=== PATIENT | male | born 1940 | race Caucasian/White ===

== ENCOUNTER 2017-01-12 04:39 | Inpatient (IN) | payer OTHER ==
[2017-01-12] VITALS (13 sets, daily range): BP systolic 87–149; BP diastolic 47–105; PULSE 66–133; TEMP 36.6–36.8; O2SAT 91–100; Ht 180.3 cm; Wt 90.3 kg
[~2017-01-12] VITALS: Ht 180.3 cm; Wt 90.3 kg
[~2017-01-12 04:39] MED LIST: BENA40TA6 PO; CARV12.5 PO; DIGO0.122 PO; ENOX100I SC; FURO40TA3 PO; METF1000 PO; NITR0.4S UT; PANT40TA PO; ROSU20TA PO; WARF7.5T PO
[2017-01-12] MEDS ORDERED: ONDANSETRON INJ 2 MG/ML 2 ML VIAL ONE (04:47)
--- NOTE | 2017-01-12 04:52 | EMERGENCY ROOM VISIT NOTE ---
History Report prepared by Eddie: Eleanor Nelson Under the Supervision of: Dr. Vanessa Villeda D.O. First contact with patient: 04:41 Chief Complaint: CARDIAC ASSESSMENT Stated Complaint: CARDIAC ASSESSMENT History of Present Illness The patient is a 76 year old male who presents to the Emergency Room with complaints of persistent nausea that began this morning around 0300. Per EMS, the patient woke up this morning complaining of nausea and additionally vomiting. They note that the patient associated tingling in his arms, but denied any shortness of breath or chest pain. EMS reports that the patient's defibrillator/pacemaker fired six different times this morning, but the patient denies any previous history of his defibrillator firing. The patient denies feeling his pacemaker firing. EMS reports that the patient had a stent placed in 2005, and a previous ND in 2013. The patient states that he felt fine prior going to bed this evening. EMS notes that the patient was given 4 mg of Zofran prior to arrival without relief of his symptoms. The patient reports no history of smoking, but notes a history of using smokeless tobacco. Source of History: patient, EMS Onset: 0300 this morning Position: other (global) Quality: other (nausea) Timing: other (persistent) Associated Symptoms: + vomiting, No SOB, No chest pain Note: Associated symptoms: tingling in arms Review of Systems See HPI for pertinent positives & negatives. A total of 10 systems reviewed and were otherwise negative. Past Medical & Surgical Medical Problems: (1) Atrial fibrillation (2) Basal cell carcinoma (3) CAD (coronary artery disease) (4) Cardiac defibrillator in place (5) CVA (cerebral vascular accident) (6) DM type 2 (diabetes mellitus, type 2) (7) Ischemic cardiomyopathy (8) Squamous cell carcinoma (9) V tach Surgical Problems: (1) History of cataract surgery Family History No pertinent family history stated. Social History Smoking Status: Unknown if Ever Smoked Drug Use: none Marital Status: Occupation Status: retired Current/Historical Medications Scheduled Benazepril Hcl (Lotensin), 40 MG PO DAILY Carvedilol (Coreg), 12.5 MG PO BIDM Cyanocobalamin (Vitamin B-12), 1,000 MCG PO DAILY Digoxin (Digoxin), 0.125 MG PO DAILY Ferrous Gluconate (Ferrous Gluconate), 324 MG PO BIDM Furosemide (Lasix), 20 MG PO DAILY Metformin Hcl (Glucophage), 1,000 MG PO DAILY Pantoprazole (Protonix), 40 MG PO DAILY Rosuvastatin Calcium (Crestor), 20 MG PO DAILY Warfarin Sodium (Coumadin), 12.5 MG PO 2XWK Warfarin Sodium (Coumadin), 7.5 TAB PO 5XWK Scheduled PRN Nitroglycerin (Nitrostat), 0.4 MG UT UD PRN for Chest Pain Allergies Coded Allergies: BRIANA Inhibitors (Verified Allergy, Unknown, cough, 01/12/17) Cefuroxime (Verified Allergy, Unknown, GI SYMPTOMS, 01/12/17) Codeine (Verified Allergy, Unknown, GI SYMPTOMS, 01/12/17) Physical Exam Vital Signs Date Time Temp Pulse Resp B/P Pulse Ox O2 Delivery O2 Flow Rate FiO2 01/12/17 05:18 112 118/85 98 Nasal Cannula 4.0 01/12/17 05:03 126 24 122/92 99 Nasal Cannula 4.0 01/12/17 05:03 126 111/90 99 Nasal Cannula 4.0 01/12/17 05:03 126 122/92 01/12/17 05:02 122/92 01/12/17 05:00 110 100 01/12/17 04:50 97 Nasal Cannula 4.0 01/12/17 04:46 118 01/12/17 04:45 96 Nasal Cannula 4.0 01/12/17 04:44 36.7 128 24 153/94 98 Nasal Cannula 3.0 Physical Exam General: Pale appearing and vomiting on exam. HEENT: Head - normocephalic and atraumatic Pupils are equal, round, and reactive to light. Extraocular eye muscles are intact, and sclera are anicteric. Nose - moist nasal mucosa without discharge. Mouth - moist buccal mucosa. Oropharynx is nonerythematous and there is no tonsillar exudate or edema noted. Neck: Supple; no JVD, nuchal rigidity, cervical lymphadenopathy. Heart: Tachycardic rate and irregular rhythm. There is a normal S1 and S2 with no murmurs, clicks, or gallops appreciated. Lungs: Clear to auscultation bilaterally with no wheezes, rales, or rhonchi. Abdomen: Soft, completely nontender, nondistended, with good bowel sounds. There are no palpable pulsatile masses or hepatosplenomegaly. There is no guarding, rigidity, or rebound noted. Extremities: No evidence of cyanosis, clubbing, or edema. There are easily palpable peripheral pulses. Skin: Pale, warm and diaphoretic with good turgor and no rashes. Medical Decision & Procedures ER Provider Diagnostic Interpretation: 1 view chest x-ray: stable cardiomegaly, mild congestive heart failure, pacer/ defibrillator in good place. Laboratory Results Test 01/12/17 04:50 01/12/17 05:00 01/12/17 05:04 Est Creatinine Clear Calc Drug Dose 58.5 ml/min Total Bilirubin 0.9 mg/dl (0.2-1) Direct Bilirubin 0.4 mg/dl (0-0.2) Aspartate Amino Transf (AST/SGOT) 17 U/L (15-37) Alanine Aminotransferase (ALT/SGPT) 15 U/L (12-78) Alkaline Phosphatase 92 U/L (45-117) Total Protein 7.3 gm/dl (6.4-8.2) Albumin 3.6 gm/dl (3.4-5.0) Thyroid Stimulating Hormone (TSH) 3.700 uIu/ml (0.300-4.500) Digoxin Level 0.1 ng/ml (0.8-2.0) Bedside Troponin I 0.100 ng/ml (0-0.045) Bedside Hemoglobin 10.5 g/dl (14.0-18.0) Bedside Hematocrit 31 % (42-52) Bedside Sodium 141 mEq/L (135-144) Bedside Potassium 3.5 mEq/L (3.3-5.0) Bedside Chloride 104 mEq/L (101-112) Bedside Total CO2 20 mEq/l (24-31) Bedside Blood Urea Nitrogen 22 mg/dl (7-18) Bedside Creatinine 1.0 mg/dl (0.6-1.3) Bedside Glucose (other) 193 mg/dl (70-99) Bedside Ionized Calcium (Gina) 1.16 mmol/l (1.12-1.32) Medications Administered Medications (Trade) Dose Ordered Sig/Magaly Route Start Time Stop Time Status Last Admin Dose Admin Ondansetron HCl (Zofran Inj) 4 mg STK-MED ONCE .ROUTE 01/12/17 04:47 01/12/17 04:49 DC 01/12/17 04:52 4 MG Metoprolol Tartrate (Lopressor Iv) 5 mg STK-MED ONCE .ROUTE 01/12/17 04:57 01/12/17 04:59 DC 01/12/17 05:03 5 MG Heparin Sodium (Porcine) (Heparin Iv Bolus) 10,000 unit STK-MED ONCE .ROUTE 01/12/17 05:12 01/12/17 05:14 DC 01/12/17 05:12 10,000 UNIT Midazolam HCl (Versed Inj) 2 mg STK-MED ONCE .ROUTE 01/12/17 05:12 01/12/17 05:15 DC 01/12/17 05:12 2 MG Fentanyl Citrate (Fentanyl Inj) 100 mcg STK-MED ONCE .ROUTE 01/12/17 05:12 01/12/17 05:15 DC 01/12/17 05:12 50 MCG Promethazine HCl (Phenergan Inj) 25 mg STK-MED ONCE .ROUTE 01/12/17 05:28 01/12/17 05:30 DC 01/12/17 05:28 25 MG Procedure The patient was treated with 4 mg Zofran Inj, 5 mg Lopressor IV. ECG Indication: nausea Rate (beats per minute): 116 Rhythm: atrial fibrillation (RVR) Findings: ST elevation (Inferior, consistent withm an acute ND, reciprocal changes in leads 1 and AVL) Comparison ECG Date: 08/27/15 Change: EKG Change: When compared to EKG done on 08/27/15 ST elevations are new. ED Course 0441: Past medical records reviewed. The patient was evaluated in room B1. A complete history and physical exam was performed. Laboratory studies were drawn as above. A twelve-lead EKG was obtained as described above. 0445: A heart alert was called at this time. 0447: Ordered Zofran Inj 4 IV 0457: The patient's arrived in the emergency department. I discussed the patient's case with her. Ordered Lopressor IV. 0521: Dr. Arce, Cardiology has evaluated the patient and is going to take the patient to the field laborer for further treatment. 0524: I discussed the patients case with Dr. Alves [facility]. He is going to evaluate the patient for further treatment. 0525: The patient was taken to the field laborer for further treatment. Medical Decision The patient is a 76 year old male who presents to the ED with nausea. Differential diagnosis includes acute ND, cardiac dysrhythmia, electrolyte imbalance. Labs: no leukocytosis, hemoglobin 9.8 which is baseline for him, normal renal function, magnesium 2.0, troponin 0.100, LFTs are normal, glucose 193, INR 1.3, digoxin level pending. Patient presents to the emergency department after his implanted defibrillator discharged multiple times at home. He explains that he awoke from sleep with significant nausea and just a general feeling of illness. EMS was called. Upon their arrival, the patient describes significant nausea and was given Zofran. His implanted defibrillator discharged on 5 or 6 different occasions. They administered IV amiodarone. 12-lead EKG revealed evidence of an inferior wall ND. A heart alert was called. He received additional Zofran and then Lopressor here in the emergency department. The patient remained stable here in the emergency department. He went to the Program Control Analyst with Dr. Arce Consults Time Called: [phone] Consulting Physician: Reagan Mohan Returned Call: [phone] I discussed the patients case with Reagan Mohan. He is going to evaluate the patient for further treatment. Impression Primary Impression: Acute ND Additional Impressions: Ventricular fibrillation Defibrillator discharge Critical Care I have personally spent greater than 45 minutes of critical care time in the direct management of this patient. This includes bedside care, interpretation of diagnostic studies, and testing, discussion with consultants, patient, and family members, and other required patient management activities. This 45 minutes is in excess of all separately billable procedures. Scribe Attestation The scribe's documentation has been prepared under my direction and personally reviewed by me in its entirety. I confirm that the note above accurately reflects all work, treatment, procedures, and medical decision making performed by me. Departure Information Dispostion Being Evaluated By Hospitalist Referrals No Doctor, Assigned (PCP) Problem Qualifiers
[2017-01-12] MEDS ORDERED: FURO-85 PO (04:56)
[2017-01-12] MEDS ORDERED: METF1000 PO (04:57)
[2017-01-12] MEDS ORDERED: METOPROLOL TARTRATE 1 MG/ML VIAL ONE (04:57)
[2017-01-12] MEDS ORDERED: FERR325T18 PO (04:57)
[2017-01-12] MEDS ORDERED: CYAN10005 PO (05:01)
[2017-01-12 05:02] LABS: BASO % 0.9 %; BASO ABS # 0.07 K/uL (0-0.2); COMPLETE YES; EOS % 4.6 %; IG% 0.1 %; LYMPH % 20.4 %; LYMPH ABS # 1.56 K/uL (1.2-3.4); MEAN CELL VOLUME 87.6 fL (80-100); MEAN CORPUSCULAR HEMOGLOBIN 27.7 pg (25-34); MEAN CORPUSCULAR HGB CONC 31.6 g/dl (32-36); MEAN PLATELET VOLUME 9.4 fL (7.4-10.4); MONO % 13.4 %; NEUT % 60.6 %; PLATELET COUNT 190 K/uL (130-400); RED BLOOD COUNT 3.54 M/uL (4.7-6.1); WHITE BLOOD COUNT 7.64 K/uL (4.8-10.8)
[2017-01-12] MEDS ORDERED: WARF5TAB90 PO ×2 (05:03)
[2017-01-12 05:10] LABS: INR 1.3 (0.9-1.1); PARTIAL THROMBOPLASTIN RATIO 1.1
[2017-01-12] MEDS ORDERED: HEPARIN SOD (PORCINE) 1000 UNIT/ML 10 ML VIAL ONE (05:12)
[2017-01-12] MEDS ORDERED: MIDAZOLAM HCL 1 MG/ML 2ML VIAL ONE (05:12)
[2017-01-12] MEDS ORDERED: NiCARDipine HCL INJ 2.5 MG/ML 10 ML AMP ONE (05:12)
[2017-01-12] MEDS: FENTANYL CITRATE INJ 50 MCG/1 ML 2 ML VIAL ONE (05:12)
[2017-01-12 05:15] LABS: ISTAT HEMOGLOBIN 10.5 g/dl (14.0-18.0); ISTAT IONIZED CALCIUM 1.16 mmol/l (1.12-1.32)
[2017-01-12] MEDS ORDERED: NITROGLYCERIN/D5W 100MCG/ML 20ML SYR ONE (05:15)
[2017-01-12] MEDS ORDERED: PROMETHAZINE HCL INJ 25 MG/ML 1 ML VIAL ONE (05:28)
[2017-01-12] MEDS ORDERED: EPTIFIBATIDE 0.75 MG/ML 75MG VIAL IV ONE (05:50)
[2017-01-12] MEDS ORDERED: EPTIFIBATIDE 2 MG/ML 10 ML VIAL IV ONE (05:50)
[2017-01-12 05:52] LABS: CKMB/CK RATIO 4.5 (0-3.0)
[2017-01-12 05:55] LABS: BUN/CREATININE RATIO 17.5 (10-20); CREATININE 1.2 mg/dl (0.60-1.40); POTASSIUM 3.4 mmol/L (3.5-5.1)
[2017-01-12 06:06] LABS: THYROID STIMULATING HORMONE 3.7 uIu/ml (0.300-4.500)
[2017-01-12] MEDS ORDERED: FLUMAZENIL 0.1 MG/1 ML 10 ML VIAL IV ONE (06:17)
[2017-01-12] MEDS ORDERED: NALOXONE HCL 0.4 MG/1 ML VIAL/CARP ONE (06:18)
--- NOTE | 2017-01-12 06:49 | DIAGNOSTIC IMAGING REPORT ---
CHEST ONE VIEW PORTABLE CLINICAL HISTORY: Atypical chest pain COMPARISON STUDY: 08/28/2015 FINDINGS: The heart is enlarged. There is radiographic evidence of pulmonary vascular congestion. A small right pleural effusion. There is no lobar consolidation. There is a left subclavian single chamber central venous pacemaker/defibrillator.[ IMPRESSION: Cardiomegaly and radiographic evidence of congestive failure/fluid overload. Small right pleural effusion. No evidence of lobar consolidation Electronically signed by: Keaton Cano M.D. 01/12/2017 6:48 AM Dictated Date/Time: 01/12/2017 6:47 AM
[2017-01-12] MEDS ORDERED: ONDANSETRON INJ 2 MG/ML 2 ML VIAL IV PRN (07:00)
[2017-01-12] MEDS ORDERED: EPTIFIBATIDE BOLUS / DRIP IV ONE (07:00)
[2017-01-12] MEDS ORDERED: ATROPINE SULFATE 0.1 MG/ML 5ML SYR IV PRN (07:00)
--- NOTE | 2017-01-12 07:08 | Procedure Note ---
Pre-Mod Sedation Assessment General Date of Moderate Sedation: Jan 12, 2017. Vital Signs: Vital Signs Past 12 Hours Date Time Temp Pulse Resp B/P Pulse Ox O2 Delivery O2 Flow Rate FiO2 01/12/17 06:42 118 20 115/77 98 Non-Rebreather 100 01/12/17 06:30 134 24 136/89 97 Non-Rebreather 100 01/12/17 05:18 112 118/85 98 Nasal Cannula 4.0 01/12/17 05:03 126 24 122/92 99 Nasal Cannula 4.0 01/12/17 05:03 126 111/90 99 Nasal Cannula 4.0 01/12/17 05:03 126 122/92 01/12/17 05:02 122/92 01/12/17 05:00 110 100 01/12/17 04:50 97 Nasal Cannula 4.0 01/12/17 04:46 118 01/12/17 04:45 96 Nasal Cannula 4.0 01/12/17 04:44 36.7 128 24 153/94 98 Nasal Cannula 3.0 Review Cardiovascular: no murmur (No murmur heard on exam in ED by me), normal peripheral pulses, + irregularly irregular, + pertinent finding (leg edema) Abdomen: normal bowel sounds, non tender, soft Lungs: lungs clear Pre-Sedation Airway Assessment Oral Cavity: Dentures Able to Visualize Vocal Cords: No Short Thick Neck: No Hx of Sleep Apnea: No Smoking Status: Never Smoker Mallampati Classification: Class III ASA Classification: Class III Procedure Planning Contraindications-for Mod Sed: None Yes Notes The planned sedation has been discussed with the patient and consent obtained. I have identified the patient, determined the appropriateness of sedation and have assessed the patient immediately prior to the procedure. All medicine(s) and interventions are by my order.
--- NOTE | 2017-01-12 07:09 | Procedure Note ---
Post-Mod Sedation Assessment General Date of Moderate Sedation Jan 12, 2017. Vital Signs: Vital Signs Past 12 Hours Date Time Temp Pulse Resp B/P Pulse Ox O2 Delivery O2 Flow Rate FiO2 01/12/17 06:42 118 20 115/77 98 Non-Rebreather 100 01/12/17 06:30 134 24 136/89 97 Non-Rebreather 100 01/12/17 05:18 112 118/85 98 Nasal Cannula 4.0 01/12/17 05:03 126 24 122/92 99 Nasal Cannula 4.0 01/12/17 05:03 126 111/90 99 Nasal Cannula 4.0 01/12/17 05:03 126 122/92 01/12/17 05:02 122/92 01/12/17 05:00 110 100 01/12/17 04:50 97 Nasal Cannula 4.0 01/12/17 04:46 118 01/12/17 04:45 96 Nasal Cannula 4.0 01/12/17 04:44 36.7 128 24 153/94 98 Nasal Cannula 3.0 Review - Discharge Criteria Vital Signs Stable: Yes Alert/Oriented/Conversant: Yes Returned to Baseline Mental St: Yes Nausea Absent/Minimal: Yes Pain/Discomfort/Absent/Minimal: Yes Normal/Baseline Respirations: Yes Active Bleeding?: No Pt Received D/C Instructions: N/A Prescriptions Given: None Specific Proced. D/C Criteria Distal Pulses Present (Cardiac: Yes Groin site assessed-Card Cath: N/A Voided Prior To Discharge: N/A Discharged Patients Adult Escort/Transportation: N/A
--- NOTE | 2017-01-12 07:48 | [facility] Post Operative Brief Note ---
Preliminary Procedure Note Procedure Date Jan 12, 2017. Pre-Procedure Diagnosis STEMI AUC Score 9 Post-Procedure Diagnosis Severe CAD (Sub total proximal RCA and total mid RCA) Procedure(s) Performed PTCA Osteopathy Doctor Dr. Arce Cash Crop Farmer(s) VIVIANE Townsend Estimated Blood Loss 20 ml Medication(s) Fentanyl, Heparin, Nicardipine, Versed IV naloxone and Romazicon to reverse fentanyl and versed because of respiratory suppression. Preliminary Findings Cath site: 6 Fr Slender Morley sheath right radial artery. Hemostasis: Terumo TR band Complications: No cardiac or vascular complications. Findings: left dominant circulation. Subtotal proximal RCA and total mid RCA. PTCA performed to the proximal and mid RCA. GILMAR 3 flow established into a high rising acute marginal ( long small - medium caliber vessel) and to mid-distal RCA ( gives rise to two small caliber RV branches). No underlying stenosis in proximal or mid RCA. Left coronary artery with no significant disease. Patent LAD stent. Patient developed respiratory depression after versed and fentanyl . Subsequent oxygen desaturation requiring patient to be receive oxygen by bag and mask. After Romazicon and naloxone he returned to baseline mental status and normal respirations. Conclusion: Suspect thromboembolic event from left atria or left ventricle to RCA. Patient has chronic atrial fibrillation and a severe cardiomyopathy. INR on admission was subtherapeutic at 1.3. Will continue IV Integrilin for now. After hemostasis documented at right radial access site would start IV heparin and then discontinue Integrilin. Will also give aspirin and clopidogrel. [facility] Choice of assisted anticoagulation by [facility] service. Recommendations Medical therapy and/or Counseling, PCI without planned CABG Specimens None Fluids (cc crystalloids) 150 ml Drains none Anesthesia IV versed,fentanyl Procedural Complication(s) None Disposition ICU
[2017-01-12] MEDS ORDERED: CLOPIDOGREL BISULFATE 300 MG TAB PO ONE (08:30)
[2017-01-12] MEDS ORDERED: EPTIFIBATIDE INJ 75 MG PREMIXED IV SCH (08:30)
[2017-01-12 08:51] LABS: BASO % 0.3 %; BASO ABS # 0.03 K/uL (0-0.2); EOS % 0.3 %; HEMATOCRIT 30.6 % (42-52); IG% 0.4 %; LYMPH % 11.4 %; LYMPH ABS # 1.28 K/uL (1.2-3.4); MEAN CELL VOLUME 87.2 fL (80-100); MEAN CORPUSCULAR HEMOGLOBIN 27.9 pg (25-34); MONO % 9.6 %; PLATELET COUNT 171 K/uL (130-400); RED BLOOD COUNT 3.51 M/uL (4.7-6.1); WHITE BLOOD COUNT 11.21 K/uL (4.8-10.8)
[2017-01-12 08:52] LABS: COMPLETE YES
[2017-01-12] MEDS: ASPIRIN 81 MG ECTAB PO SCH (09:05)
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
[2017-01-12] MEDS ORDERED: PROMETHAZINE HCL INJ 12.5 MG in SODIUM CHLORIDE 0.9% 50ML 50 ML IV PRN (10:00)
[2017-01-12] MEDS ORDERED: LNX125 PO (10:16)
[2017-01-12] MEDS ORDERED: GLUCOSE 40% GEL 15 GM TUBE PO PRN (10:30)
[2017-01-12] MEDS ORDERED: GLUCAGON FOR INJ 1 MG VIAL SQ PRN (10:30)
[2017-01-12] MEDS ORDERED: GLUCOSE 10 TABS/TUBE PO PRN (10:30)
[2017-01-12] MEDS ORDERED: ENALAPRIL MALEATE 10 MG TAB PO SCH (10:30)
[2017-01-12] MEDS ORDERED: DEXTROSE 50% 50 ML SYR IV PRN (10:30)
[2017-01-12] MEDS: INSULIN ASPART 100 UNITS/ML 3 ML PEN SC SCH ×3 (11:00→21:00)
[2017-01-12] MEDS ORDERED: DIGOXIN 0.125 MG TAB PO ONE (11:15)
[2017-01-12] MEDS ORDERED: CARVEDILOL 12.5 MG TAB PO SCH (11:30)
--- NOTE | 2017-01-12 12:50 | History and Physical ---
History & Physical Date & Time of Service: Jan 12, 2017 at 10:59 Chief Complaint: Nausea, Sweating, Defibrillator Fired Primary Care Physician: Shade Thomas III, M.D. History of Present Illness 76 year old male who presented to the ER via EMS for nausea, diaphoresis, and his defibrillator firing. Patient's reports he went to bed feeling in his usual state of health last night. Around 0300, he woke up and was nauseous and had episodes of vomiting. He was also very diaphoretic. When EMS arrived, his defibrillator fired about 6 times per the . Upon arrival to the ER, patient was a heart alert and found to have ST elevations in the inferior leads. Patient was taken to the laboratory associate and found to have subtotal occlusion of the proximal RCA and total occlusion of the mid RCA. Patient underwent PTCA of the mid-proximal RCA. At the time of my exam, patient is lethargic. He arouses to loud verbal and tactile stimuli but falls back to sleep quickly. He is able to tell me his name and that he is in the hospital. Vitals are stable. Past Medical/Surgical History Medical Problems: (1) Atrial fibrillation Status: Chronic (2) Basal cell carcinoma Status: Chronic (3) CAD (coronary artery disease) Permanent Comment: 2005 - PCI to LAD cath 2011 - no significant obstructive disease Status: Chronic (4) Cardiac defibrillator in place Status: Chronic (5) CVA (cerebral vascular accident) Status: Chronic (6) DM type 2 (diabetes mellitus, type 2) Status: Chronic (7) Ischemic cardiomyopathy Permanent Comment: echo 08/2015 - EF 25-30%, moderate tricuspid regurgitation Status: Chronic (8) Squamous cell carcinoma Status: Chronic (9) V tach Permanent Comment: s/p AICD placement Status: Chronic Surgical Problems: (1) History of cataract surgery Status: Chronic Family History FH: CAD (coronary artery disease) FATHER ( at age 69) MOTHER ( at age 35) SISTER ( at age 65) Social History Smoking Status: Never Smoker Alcohol Use: none Marital Status: Housing status: lives with family Immunizations History of Influenza Vaccine: Yes Influenza Vaccine Date: Aug 03, 2016 History of Tetanus Vaccine?: Yes Tetanus Immunization Date: Jan 28, 2009 History of Pneumococcal: Yes Pneumococcal Date: Sep 10, 2015 Multi-Drug Resistant Organisms History of MDRO: No Allergies Coded Allergies: BRIANA Inhibitors (Verified Allergy, Unknown, cough, 01/12/17) Cefuroxime (Verified Allergy, Unknown, GI SYMPTOMS, 01/12/17) Codeine (Verified Allergy, Unknown, GI SYMPTOMS, 01/12/17) Home Medications Scheduled Benazepril Hcl (Lotensin), 40 MG PO DAILY Carvedilol (Coreg), 12.5 MG PO BIDM Cyanocobalamin (Vitamin B-12), 1,000 MCG PO DAILY Digoxin (Digoxin), 0.125 MG PO DAILY Ferrous Gluconate (Ferrous Gluconate), 324 MG PO BIDM Furosemide (Lasix), 20 MG PO DAILY Metformin Hcl (Glucophage), 1,000 MG PO DAILY Pantoprazole (Protonix), 40 MG PO DAILY Rosuvastatin Calcium (Crestor), 20 MG PO DAILY Warfarin Sodium (Coumadin), 12.5 MG PO 2XWK Warfarin Sodium (Coumadin), 7.5 TAB PO 5XWK Scheduled PRN Nitroglycerin (Nitrostat), 0.4 MG UT UD PRN for Chest Pain Review of Systems unable to be complete with patient due to lethargy Physical Exam Vital Signs Date Time Temp Pulse Resp B/P Pulse Ox O2 Delivery O2 Flow Rate FiO2 01/12/17 06:45 117 26 113/105 01/12/17 06:42 118 20 115/77 98 Non-Rebreather 100 01/12/17 06:30 134 24 136/89 97 Non-Rebreather 100 01/12/17 05:18 112 118/85 98 Nasal Cannula 4.0 01/12/17 05:03 126 24 122/92 99 Nasal Cannula 4.0 01/12/17 05:03 126 111/90 99 Nasal Cannula 4.0 01/12/17 05:03 126 122/92 01/12/17 05:02 122/92 01/12/17 05:00 110 100 01/12/17 04:50 97 Nasal Cannula 4.0 01/12/17 04:46 118 01/12/17 04:45 96 Nasal Cannula 4.0 01/12/17 04:44 36.7 128 24 153/94 98 Nasal Cannula 3.0 General Appearance: no apparent distress Head: normocephalic Eyes: normal inspection ENT: hearing grossly normal Neck: supple, no JVD Respiratory/Chest: no respiratory distress, + decreased breath sounds Cardiovascular: + irregularly irregular, + pertinent finding (+1-2 pitting edema BLLE) Abdomen/GI: normal bowel sounds, non tender, soft Extremities/Musculoskelatal: normal inspection, no calf tenderness, + pertinent finding (small amount of bloody drainage noted around right radial compression dressing) Neurologic/Psych: + pertinent finding (lethargic, awakens to loud verbal and tactile stimuli, falls back to sleep quickly; able to state name, place, and year) Skin: normal color, warm/dry Diagnostics Laboratory Results Results Past 24 Hours Test 01/12/17 04:50 01/12/17 05:00 01/12/17 05:04 01/12/17 05:54 Range/Units White Blood Count 7.64 4.8-10.8 K/uL Red Blood Count 3.54 4.7-6.1 M/uL Hemoglobin 9.8 14.0-18.0 g/dL Hematocrit 31.0 42-52 % Mean Corpuscular Volume 87.6 80-100 fL Mean Corpuscular Hemoglobin 27.7 25-34 pg Mean Corpuscular Hemoglobin Concent 31.6 32-36 g/dl Platelet Count 190 130-400 K/uL Mean Platelet Volume 9.4 7.4-10.4 fL Neutrophils (%) (Auto) 60.6 % Lymphocytes (%) (Auto) 20.4 % Monocytes (%) (Auto) 13.4 % Eosinophils (%) (Auto) 4.6 % Basophils (%) (Auto) 0.9 % Neutrophils # (Auto) 4.63 1.4-6.5 K/uL Lymphocytes # (Auto) 1.56 1.2-3.4 K/uL Monocytes # (Auto) 1.02 0.11-0.59 K/uL Eosinophils # (Auto) 0.35 0-0.5 K/uL Basophils # (Auto) 0.07 0-0.2 K/uL RDW Standard Deviation 53.3 36.4-46.3 fL RDW Coefficient of Variation 16.6 11.5-14.5 % Immature Granulocyte % (Auto) 0.1 % Immature Granulocyte # (Auto) 0.01 0.00-0.02 K/uL Prothrombin Time 14.0 9.0-12.0 SECONDS Prothromb Time International Ratio 1.3 0.9-1.1 Activated Partial Thromboplast Time 28.7 21.0-31.0 SECONDS Partial Thromboplastin Ratio 1.1 Sodium Level 141 136-145 mmol/L Potassium Level 3.4 3.5-5.1 mmol/L Chloride Level 107 98-107 mmol/L Carbon Dioxide Level 22 21-32 mmol/L Anion Gap 12.0 21.0 16-25 mmol/L Blood Urea Nitrogen 21 7-18 mg/dl Creatinine 1.20 0.60-1.40 mg/dl Est Creatinine Clear Calc Drug Dose 58.5 ml/min Estimated GFR () 67.2 Estimated GFR (Non- 58.0 BUN/Creatinine Ratio 17.5 10-20 Random Glucose 186 70-99 mg/dl Calcium Level 9.0 8.5-10.1 mg/dl Magnesium Level 2.0 1.8-2.4 mg/dl Total Bilirubin 0.9 0.2-1 mg/dl Direct Bilirubin 0.4 0-0.2 mg/dl Aspartate Amino Transf (AST/SGOT) 17 15-37 U/L Alanine Aminotransferase (ALT/SGPT) 15 12-78 U/L Alkaline Phosphatase 92 45-117 U/L Total Creatine Kinase 49 39-308 U/L Creatine Kinase MB 2.2 0.5-3.6 ng/ml Creatine Kinase MB Ratio 4.5 0-3.0 Troponin I 0.157 0-0.045 ng/ml Total Protein 7.3 6.4-8.2 gm/dl Albumin 3.6 3.4-5.0 gm/dl Thyroid Stimulating Hormone (TSH) 3.700 0.300-4.500 uIu/ml Digoxin Level 0.1 0.8-2.0 ng/ml Bedside Troponin I 0.100 0-0.045 ng/ml Bedside Hemoglobin 10.5 14.0-18.0 g/dl Bedside Hematocrit 31 42-52 % Bedside Sodium 141 135-144 mEq/L Bedside Potassium 3.5 3.3-5.0 mEq/L Bedside Chloride 104 101-112 mEq/L Bedside Total CO2 20 24-31 mEq/l Bedside Blood Urea Nitrogen 22 7-18 mg/dl Bedside Creatinine 1.0 0.6-1.3 mg/dl Bedside Glucose (other) 193 70-99 mg/dl Bedside Ionized Calcium (Gina) 1.16 1.12-1.32 mmol/l Kaolin Activated Coagulation Time 312 94-140 SECONDS Test 01/12/17 08:39 Range/Units White Blood Count 11.21 4.8-10.8 K/uL Red Blood Count 3.51 4.7-6.1 M/uL Hemoglobin 9.8 14.0-18.0 g/dL Hematocrit 30.6 42-52 % Mean Corpuscular Volume 87.2 80-100 fL Mean Corpuscular Hemoglobin 27.9 25-34 pg Mean Corpuscular Hemoglobin Concent 32.0 32-36 g/dl Platelet Count 171 130-400 K/uL Mean Platelet Volume 10.0 7.4-10.4 fL Neutrophils (%) (Auto) 78.0 % Lymphocytes (%) (Auto) 11.4 % Monocytes (%) (Auto) 9.6 % Eosinophils (%) (Auto) 0.3 % Basophils (%) (Auto) 0.3 % Neutrophils # (Auto) 8.75 1.4-6.5 K/uL Lymphocytes # (Auto) 1.28 1.2-3.4 K/uL Monocytes # (Auto) 1.08 0.11-0.59 K/uL Eosinophils # (Auto) 0.03 0-0.5 K/uL Basophils # (Auto) 0.03 0-0.2 K/uL RDW Standard Deviation 53.0 36.4-46.3 fL RDW Coefficient of Variation 16.7 11.5-14.5 % Immature Granulocyte % (Auto) 0.4 % Immature Granulocyte # (Auto) 0.04 0.00-0.02 K/uL Microbiology Results 01/12/17 MRSA DNA Surveillance Screen, Received Pending Diagnostic Radiology CXR IMPRESSION: Cardiomegaly and radiographic evidence of congestive failure/ fluid overload. Small right pleural effusion. No evidence of lobar consolidation Impression Assessment and Plan STEMI - admitted to ICU - presented with nausea, vomiting, diaphoresis, and firing of AICD; EKG on arrival showed ST elevation inferiorly - patient taken to cath labs had PTCA of proximal-mid RCA - per Dr. Arce - occlusion was more thromboembolic in nature - ? from left atria or left ventricle; patient has history of chronic a. fib and cardiomyopathy (EF 25-30%) and noted to have subtherapeutic INR on admission - currently on Integrilin - per Dr. Arce, continue Integrilin until hemostasis of right radial cath site is achieved then transition to IV Heparin - middle or intermediate [employer] principal anticoagulation as per cardiology - on ASA, Plavix, beta bryan, and statin - case discussed with Dr. Jimenez ISCHEMIC CARDIOMYOPATHY - EF 25-30% on echo 08/2015 - continue furosemide, beta bryan - hold briana-i given relative low-normal blood pressures CHRONIC ATRIAL FIBRILLATION - rate controlled on dig and beta bryan - continue both - on Coumadin, INR 1.3 on admission - Integrilin -> Heparin as above HX V-TACH S/P AICD - per family, patient's AICD fired at home - have device interrogated DM - hgb a1c 5.6 10/2016 - hold metformin, utilize SSI while hospitalized HX CVA - on ASA/Plavix DVT PROPHYLAXIS - currently on Integrilin -> Heparin DISPO - In my clinical judgment this beneficiary meets acute admission criteria, established by [facility], that includes being hospitalized through two midnights. I have seen, examined and discussed this patient with Bonny Garcia and I agree with the above note. Patient with STEMI s/p PCI by Cardiology. Vitals notable for tachycardia. PE: General- awake; alert; NAD Eyes- EOMI; no scleral icterus Neck- no stridor; trachea midline Lungs- CTA bilaterally; no wheezes/crackles Heart- tachycardic but regular Abdomen- soft; NTND; nBS Back- no gross abnormalities Extremities- 1+edema of bilateral LE; no deformity Neuro- no gross focal deficits Skin- no appreciable rash STEMI: Cardiology consulted. Integrilin drip transitioned to heparin drip. Continue cardiac medications. Agree with remainder of plan as outlined above. VTE Prophylaxis VTE Risk Assessment Done? Y/N: Yes Risk Level: Moderate
[2017-01-12] MEDS ORDERED: Integrelin infusion --> STOP ORDER ONE (13:00)
[2017-01-12 16:43] LABS: BASO % 0.2 %; BASO ABS # 0.02 K/uL (0-0.2); EOS % 0.5 %; HEMATOCRIT 31.8 % (42-52); IG% 0.1 %; LYMPH ABS # 0.77 K/uL (1.2-3.4); MEAN CELL VOLUME 87.8 fL (80-100); MEAN CORPUSCULAR HEMOGLOBIN 27.6 pg (25-34); MEAN PLATELET VOLUME 9.7 fL (7.4-10.4); MONO % 15.3 %; NEUT % 74.9 %; PLATELET COUNT 188 K/uL (130-400); RED BLOOD COUNT 3.62 M/uL (4.7-6.1); WHITE BLOOD COUNT 8.51 K/uL (4.8-10.8)
[2017-01-12] MEDS: FERROUS GLUCONATE 324 MG TAB PO SCH (16:51)
[2017-01-12 16:57] LABS: COMPLETE YES; MEAN CORPUSCULAR HGB CONC 31.4 g/dl (32-36)
--- NOTE | 2017-01-12 17:01 | Cardiac Catheterization ---
Procedure Note Procedure Date Jan 12, 2017. Pre-Procedure Diagnosis STEMI, CAD, Cardiomyopathy, Arrhythmia AUC Score 9 Post-Procedure Diagnosis Severe CAD (Subtotal proximal RCA and total mid RCA), Successful PCI (Plain balloon angioplasty to proximal and mid RCA), Elevated Intracardiac Pressures Procedure(s) Performed Coronary Angiography, Left Heart Cath, PTCA [employer] Officer Dr. Arce Athletic Coach(s) VIVIANE Townsend Estimated Blood Loss 20 ml Medication(s) Fentanyl, Heparin, Integrilin, Nicardipine (Intra-arterial and intracoronary), Versed, Lidocaine 1% IV naloxone and Romazicon to reverse fentanyl and versed because of respiratory depression . Summary of Findings Clinical indications: Longstanding history of coronary artery disease. Status post Taxus drug eluting stent in proximal LAD 2005. History of chronic atrial fibrillation. Treated with anticoagulation therapy with warfarin. INR in the emergency department prior to this procedure was 1.3. History of severe LV systolic dysfunction with ejection fraction 20-25 percent. Status post implantation of ICD. Multiple episodes of ventricular fibrillation prior to arrival to emergency department appropriately treated with internal shocks of the defibrillator. Catheterization site: 6 Fr Slender [place] sheath right radial artery. The right radial artery was first accessed using a micro puncture technique. Hemostasis: Terumo TR band Complications: No vascular complications. Evidence of distal embolization of thrombus to distal branch of right acute marginal artery. Respiratory depression after administration of intravenous Versed and fentanyl. Successfully treated with reversal of sedation with intravenous naloxone and Romazicon. Equipment: 5 Afghan brachial 3.5 diagnostic catheter for coronary angiography. 6 Afghan JR4 guide catheter, [place] guidewire, and Medtronic Sprinter 2.5 x 12 millimeter balloon dilatation catheter. Interventional protocol: The guidewire was 1st placed in the distal RCA. Balloon inflations were then performed to the proximal and mid RCA to maximum pressure of 8 atmospheres in maximum duration of 20 seconds. The guidewire was then repositioned into the right acute marginal artery arising from the proximal RCA. One balloon inflation was performed the proximal segment of this vessel to 6 atmospheres for duration of 30 seconds. The wire was then redirected back into the RCA. Repeat balloon inflations were then performed to the mid RCA to a maximum pressure of 6 atmospheres for maximum duration of 45 seconds. Follow-up angiography was then performed from orthogonal projections. Repeat left coronary angiography was then performed. Findings: fluoroscopy revealed the proximal LAD stent and an ICD lead in the right ventricle. The coronary circulation was left dominant. The left main coronary artery was a very short large caliber vessel versus separate ostia of the LAD and left circumflex. No obstructive disease in the left main. The proximal LAD had 0 - 10 percent in stent restenoses. The proximal LAD gave rise to a small caliber 1st diagonal artery. The mid LAD gave rise to a small to medium caliber 2nd diagonal artery. The diagonal had minor luminal irregularities. The mid LAD had 10-20 percent stenoses. The distal LAD had 0- 10 percent stenoses. The distal LAD wrapped around the apex of the left ventricle as a small caliber vessel. The mid left circumflex gave rise to a very small caliber 1st marginal artery. Then gave rise to a bifurcating medium caliber 2nd marginal artery. The distal left circumflex gave rise to very small caliber 1st and 2nd posterolateral arteries and then to a small to medium caliber posterior descending artery. The PDA had 0-10 percent proximal stenosis. The right coronary artery was a medium caliber non dominant vessel. It had a subtotal proximal occlusion of the appearance of a thrombus. A small segment of mid RCA was then visualized followed by a total occlusion. After initial PTCA to the proximal RCA GILMAR 3 flow was established into the mid and distal RCA as well as an acute marginal artery arising from the proximal RCA. Thrombus was noted in the proximal acute marginal. PTCA was then performed to this vessel. Following this there was GILMAR 0 flow in the mid RCA. This was felt to be secondary to embolization of thrombus. Following repeat PTCA to the mid RCA GILMAR 3 flow was reestablished into the mid and distal RCA. At the completion of the procedure a very small caliber distal branch of the acute marginal had evidence of a subtotal occlusion with GILMAR 1 flow. This was felt to be secondary to a thromboembolic event from the proximal and mid RCA. The mid RCA gave rise to two very small caliber right ventricular branches. there was no evidence of dissection or perforation. No residual thrombus noted in the proximal or mid RCA. There was no evidence of any significant stenosis in the proximal or mid RCA or in the proximal acute marginal. Thromboembolic event to the distal branch of the acute marginal artery. At the completion of the procedure the patient had complete resolution of his anginal symptoms. He was hemodynamically stable. His rhythm was stable. The rhythm was atrial fibrillation with a mildly elevated ventricular response. . Patient developed respiratory depression after versed and fentanyl . Subsequent oxygen desaturation requiring patient to receive oxygen by bag and mask. After Romazicon and naloxone he returned to baseline mental status and normal respirations. Conclusion: Suspect thromboembolic event from left atria or left ventricle to RCA. Patient has chronic atrial fibrillation and a severe cardiomyopathy. INR on admission was subtherapeutic at 1.3. Will continue IV Integrilin for now. After hemostasis documented at right radial access site would start IV heparin and then discontinue Integrilin. Will also give aspirin and clopidogrel. Further cardiac management by [facility] cardiology. Choice of terminal operator anticoagulation by [facility] service. Hemodynamics Rest Ao: 129/83/97 mm Hg Final Ao: 107/56/77mm Hg LV: 99/37 mm HG Recommendations Medical therapy and/or Counseling, PCI without planned CABG Specimens None Radiation Exposure (mGy) 1511 Contrast (mls) 200 ml Visipaque Fluids (cc crystalloids) 150 Drains none Anesthesia Intravenous Versed and fentanyl. Lidocaine 1 percent for local anesthesia. Procedural Complication(s) Respiratory depression after intravenous Versed and fentanyl. Successful reversal. Thromboembolic event to very small caliber distal branch of the acute marginal artery after PTCA to proximal and mid RCA. Disposition ICU ACC Data Cardiac Status Clinical evaluation leading to the procedure CAD Presntation: STEMI STEMI or Non-STEMI: Thrombolytics: No Anginal Classification: CCS IV Heart Failure: No Cardiogenic Shock w/in 24Hrs: No Cardiac Arrest w/in 24Hrs: Yes Imaging studies past 6 months: No Stress studies past 6 months: No Standard Exercise Stress Test: No Stress Echocardiogram: No Stress Testing w/SPECT MPI: No Cardiac CTA: No Coronary Anatomy Dominant: Left Left Main (% Stenosis): Normal LAD (% Stenosis): Proximal (0-10), Mid (10-20), Distal (0-10) D1 (% Stenosis): Proximal (0-10) D2 (% Stenosis): Proximal (0-10) Circumflex (% Stenosis): Normal OM1 (% Stenosis): Normal OM2 (% Stenosis): Normal L PL1 (% Stenosis): Normal L PL2 (% Stenosis): Normal L PDA (% Stenosis): Proximal (0-10) RCA (% Stenosis): Proximal (99), Mid (100) AM (% Stenosis): Proximal (100 on initial angiography), Distal (Subtotal occlusion in very distal and very small calber branch of the acute marginal.) Diagnostic Physician's Name: Vaughn Arce M.D. Closure Device Percutaneous Entry Location: Radial Closure Device: Radial Band Recommendations: Medical therapy and/or Counseling, PCI without planned CABG PCI Indication: Immediate PCI for STEMI First Noted: First EKG Lesion Segment Name: Proximal RCA and mid RCA Culprit Artery: Yes Stenosis Prior to Rx (%): 99 proximal,100 mid Chronic Total Occlusion: No IVUS: No FFR: No Pre-Procedure GILMAR Flow: 0 Previously Treated Lesion: No Lesion Complexity: Non-High/Non-C Lesion Length (mm): 7 Thrombus Present: Yes Bifurcation Lesion: No Guidewire Across Lesion: Yes Guidewire: Stenosis Post-Procedure (%): 0-10 Post-Procedure GILMAR Flow: 3 Device(s) Deployed: No Lesion #2 Segment Name: proximal acute marginal Culprit Artery: Yes Stenosis Prior to Rx (%): 100 Chronic Total Occlusion: No IVUS: No FFR: No Pre-Procedure GILMAR Flow: 0 Previously Treated Lesion: No Lesion Complexity: Non-High/Non-C Lesion Length (mm): 8 Thrombus Present: Yes Bifurcation Lesion: No Guidewire Across Lesion: Yes Guidewire: Stenosis Post-Procedure (%): 0-10 Post-Procedure GILMAR Flow: 3 Device(s) Deployed: No Intraprocedure Events Significant Dissection: No Perforation: No
[2017-01-12 17:06] LABS: INR 1.3 (0.9-1.1); PARTIAL THROMBOPLASTIN RATIO 1.2; PROTHROMBIN TIME (PATIENT) 13.5 SECONDS (9.0-12.0)
--- NOTE | 2017-01-12 17:36 | ECHOCARDIOGRAM REPORT ---
*NOTICE TO RECEIVING CONSTITUTION PARTY AGENCY This information is strictly Confidential and protected under [place] law. [place] law prohibits you from making any further disclosure of this information unless further disclosure is expressly permitted by the written consent of the person to whom it pertains or is authorized by law. A general authorization for the release of medical or other information is not sufficient for this purpose. Hospital accepts no responsibility if the information is made available to any other person, INCLUDING THE PATIENT. Interpretation Summary * Name: GIDEON BO JR Study Date: 01/12/2017 12:48 PM BP: 104/74 mmHg * Patient Location: E109 HR: 99 * : 1940 (M/d/yyyy) Gender: Male Height: 69 in * Age: 76 yrs Ethnicity: [place] Weight: 208 lb * Ordering Physician: Vaughn Arce * Referring Physician: Self, Referred * Performed By: Sofya Fitzpatrick RCS * * Reason For Study: HEART ALERT / AMI * BSA: 2.1 m2 * -- Conclusions -- * Compared to the prior study dated 08/27/15, there has been an interval decline in the biventricular systolic function. * Several biventricular systolic dysfunction is present. * The septal leaflet of the tricuspid valve is restricted by the AICD lead with resultant malcoaptation causing tricuspid regurgitation. * There is severe tricuspid regurgitation. * Severe pulmonary hypertension is likely present based on the 2D findings. * Dilated inferior vena cava with reduced collapsability with sniff indicates an elevated right atrial pressure of 15 mmHg Procedure Details * A complete two-dimensional transthoracic echocardiogram was performed (2D, M-mode, Doppler and color flow Doppler). * A contrast injection of Definity was performed to improve assessment of LV function. * Contrast was injected into an intravenous site in the right arm. * One vial of Definity ultrasound contrast was diluted in normal saline to a total volume of 10 ml. A total of '2' ml of solution was administered during imaging. * Lot # [id number] of Definity utilized for procedure. * Expiration date 1 JAN 09. * The attending nurse who injected the contrast agent was SHYLA DURAN RN. Left Ventricle * The left ventricle is normal in size. * There is mild concentric left ventricular hypertrophy. * Left ventricular systolic function is severely reduced. * Ejection Fraction = 20-25%. * Flattened septum is consistent with RV pressure/volume overload with septal dyskinesis. The inferior wall is severely hypokinetic to akinetic. The anterior wall is severely hypokinetic. Right Ventricle * The right ventricle is severely dilated. * The right ventricular systolic function is severely reduced. Atria * The left atrium is severely dilated. * The right atrium is severely dilated. * There is no evidence of atrial septal defect, but resolution does not allow assessment for a patent foramen ovale. Mitral Valve * The mitral valve is normal. * There is no mitral valve stenosis. * There is mild mitral regurgitation. Tricuspid Valve * The septal leaflet of the tricuspid valve is restricted by the AICD lead with resultant systolic excursion and malcoaptation causing tricuspid regurgitation. * There is no tricuspid stenosis. * There is severe tricuspid regurgitation. * Severe pulmonary hypertension is likely present based on the 2D findings. Aortic Valve * The aortic valve is trileaflet. * Aortic stenosis is absent. * There is no significant aortic regurgitation. Pulmonic Valve * The pulmonary valve is not well seen, but the Doppler examination is normal without significant regurgitation or stenosis. Great Vessels * The aortic root and proximal ascending aorta are normal sized. Pericardium/Pleural * There is no pericardial effusion. Right Ventricle * A defibrillator lead is present in the right ventricle Great Vessels * Dilated inferior vena cava with reduced collapsability with sniff indicates an elevated right atrial pressure of 15 mmHg Left Ventricular Diastolic Function * Grade III (severe) diastolic dysfunction is present. MMode 2D Measurements and Calculations IVSd 1.7 cm IVSs 1.8 cm LVIDd 5.2 cm LVIDs 4.7 cm LVPWd 1.3 cm LVPWs 1.7 cm IVS/LVPW 1.3 FS 9.9 % EDV(Teich) 132.4 ml ESV(Teich) 103.9 ml EF(Teich) 21.5 % EDV(cubed) 144.7 ml ESV(cubed) 105.9 ml EF(cubed) 26.8 % % IVS thick 9.0 % % LVPW thick 30.0 % LV mass(C)d 347.0 grams LV mass(C)dI 165.2 grams/m\S\2 LV mass(C)s 383.9 grams LV mass(C)sI 182.8 grams/m\S\2 SV(Teich) 28.4 ml SI(Teich) 13.5 ml/m\S\2 SV(cubed) 38.8 ml SI(cubed) 18.5 ml/m\S\2 Ao root diam 4.5 cm Ao root area 15.7 cm\S\2 LA dimension 5.2 cm LA/Ao 1.2 LVOT diam 2.2 cm LVOT area 3.8 cm\S\2 LVAd ap4 44.6 cm\S\2 LVLd ap4 9.0 cm EDV(MOD-sp4) 177.8 ml EDV(sp4-el) 187.0 ml LVAs ap4 34.6 cm\S\2 LVLs ap4 8.2 cm ESV(MOD-sp4) 122.4 ml ESV(sp4-el) 123.4 ml EF(MOD-sp4) 31.2 % EF(sp4-el) 34.0 % LVAd ap2 47.9 cm\S\2 LVLd ap2 8.4 cm EDV(MOD-sp2) 226.6 ml EDV(sp2-el) 232.8 ml LVAs ap2 40.0 cm\S\2 LVLs ap2 8.0 cm ESV(MOD-sp2) 165.0 ml ESV(sp2-el) 170.9 ml EF(MOD-sp2) 27.2 % EF(sp2-el) 26.6 % LVLd %diff -7.94 % EDV(MOD-bp) 204.9 ml LVLs %diff -3.47 % ESV(MOD-bp) 141.0 ml EF(MOD-bp) 31.2 % SV(MOD-sp4) 55.4 ml SI(MOD-sp4) 26.4 ml/m\S\2 SV(MOD-sp2) 61.6 ml SI(MOD-sp2) 29.3 ml/m\S\2 SV(MOD-bp) 63.9 ml SI(MOD-bp) 30.4 ml/m\S\2 SV(sp4-el) 63.6 ml SI(sp4-el) 30.3 ml/m\S\2 SV(sp2-el) 61.9 ml SI(sp2-el) 29.5 ml/m\S\2 Doppler Measurements and Calculations MV E max patrick 107.4 cm/sec MV P1/2t max patrick 111.8 cm/sec MV P1/2t 71.3 msec MVA(P1/2t) 3.1 cm\S\2 MV dec slope 459.6 cm/sec\S\2 MV dec time 0.17 sec Ao V2 max 149.5 cm/sec Ao max PG 8.9 mmHg Ao max PG (full) 8.1 mmHg EBER(V,A) 1.2 cm\S\2 EBER(V,D) 1.2 cm\S\2 LV V1 max PG 0.87 mmHg LV V1 max 46.6 cm/sec PI max patrick 130.0 cm/sec PI max PG 6.8 mmHg PI dec slope 133.0 cm/sec\S\2 PI P1/2t 286.2 msec TR max patrick 169.3 cm/sec
[2017-01-12] MEDS ORDERED: METOPROLOL TARTRATE 25 MG TAB PO ONE (17:40)
--- NOTE | 2017-01-12 19:17 | CARDIOLOGY CONSULTATION ---
DATE OF CONSULTATION: 01/12/2017 HISTORY OF PRESENT ILLNESS: Parth Cobian is a 76-year-old male seen in cardiology consultation per the request of Bonny Garcia PA-C, for the evaluation of ongoing cardiac care status post acute inferior ST segment elevation myocardial infarction complicated by ventricular fibrillation and AICD discharges. The patient's primary immersion metal cleaner is Dr. Rodrigo Alexander of our practice. The patient had last been seen as an outpatient in April 2016. The patient was apparently in his normal state of health last night when he went to bed. This morning at just after 4:00 a.m. he got up to use the bathroom and felt sick. He summoned his , and she noted that he was perspiring heavily and complaining of arm discomfort. He then had chest discomfort. She assisted him to their bed where he laid down in a diagonal fashion across the length of the bed. She started to help him put on some clothes and EMS was summoned. EMS arrived to their home and they were in the process of moving patient out of his home, when he subsequently lost consciousness. His defibrillator subsequently discharged several times. He was placed on the executive staff assistant by the paramedics and ventricular fibrillation was noted. The interrogation of his Medtronic AICD device reveals that patient received 6 shocks for ventricular fibrillation at 4:24 a.m. on today 01/12/2017. The defibrillations were initially unsuccessful until the 6th shock, at which time he converted to atrial fibrillation for approximately 5 minutes, then he received an additional 5 shocks before returning to atrial fibrillation. He was brought to the Emergency Department. EKG revealed a wide complex rhythm with what was felt to be diffuse ST segment elevation. His EKG was technically challenging to interpret when he arrived this morning due to his underlying left bundle branch block. The patient was taken to the cardiac catheterization in an emergent fashion by Dr. Arce. He was found to have a subtotal proximal stenosis of the right coronary artery and total mid right coronary artery. Coronary angiography revealed left dominant circulation. An angioplasty wire was deployed across the stenosis in the proximal and then mid right coronary artery and patient underwent percutaneous coronary intervention with balloon angioplasty. The findings were suggestive of acute thrombosis with no significant underlying CAD found after flow was restored. A previously placed stent in the LAD was noted to be patent. When his lab results were resulted, it was noted that his INR was subtherapeutic. The patient is on chronic anticoagulation due to persistent chronic atrial fibrillation and has had a past left middle cerebral artery distribution stroke in August 2015. The patient was subsequently transferred to the intensive care unit. I had initially spoken to patient this morning at approximately 9:00 a.m., on my reassessment of patient just after 5 p.m., he is much more awake. He is out of bed and sitting in a chair and enjoying his evening meal. His family is at the bedside with him. The patient feels well without any chest discomfort or shortness of breath at present. PAST MEDICAL HISTORY: 1. 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 He had a prior diagnosis of a nonischemic cardiomyopathy and subsequently developed coronary artery disease and subsequently developed single vessel coronary artery disease and underwent LAD stent in 2005. 2. He underwent repeat cardiac catheterization at 2011 without significant obstructive disease. 3. Chronic atrial fibrillation. 4. History of prior sustained ventricular tachycardia for which he received a single chamber Medtronic AICD initially implanted in 2011. 5. Chronic renal insufficiency. 6. Type 2 diabetes mellitus. 7. 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 PAST SURGICAL HISTORY: 1. Cardiac catheterization and AICD placement as noted above. 2. History of cataract surgery. FAMILY HISTORY: Father at age 69 and apparently had coronary artery disease. His mother and his sister have also , apparently related to heart disease. SOCIAL HISTORY: He is a nonsmoker. He is and lives with his family. ALLERGIES: BRIANA INHIBITORS WITH COUGH. CODEINE GASTROINTESTINAL UPSET. SCHEDULED HOME MEDICATIONS: 1. Benazepril 40 mg by mouth daily. 2. Carvedilol 12.5 mg p.o. b.i.d. 3. Vitamin B12 1000 mcg by mouth daily. 4. Digoxin 0.125 mg by mouth daily. 5. Ferrous gluconate 324 mg p.o. b.i.d. 6. Lasix 20 mg by mouth daily. 7. Glucophage 1000 mg by mouth daily. 8. Protonix 40 mg daily. 9. Rosuvastatin 20 mg by mouth daily. 10. Coumadin 12.5 mg 2 days per week and 7.5 mg 5 days per week. 11. Nitroglycerin 0.4 mg as needed for chest discomfort. COMPREHENSIVE REVIEW OF SYSTEMS: The patient feels well at present with no current complaints. PHYSICAL EXAMINATION: VITAL SIGNS: Temperature afebrile at 36.8, heart rate is 111-120 with him eating, respiratory rate 18, blood pressure 114/57, pulse oximetry 95% on room air. GENERAL APPEARANCE: Awake and oriented on reassessment at 5:00 p.m. on 01/12/2017. No acute distress. NECK: No bruits or cervical lymphadenopathy. CARDIOVASCULAR: Regular rate. No murmurs. ABDOMEN: Positive bowel sounds. Soft, nontender. EXTREMITIES: No edema. LUNGS: Clear. DIAGNOSTIC DATA: EKG performed on arrival 01/12/2017 at 4:44 a.m. revealed atrial fibrillation with rapid ventricular rate at 116 beats per minute, and inferior ST segment elevation. Repeat performed post-PCI revealed improvement in the ST segment elevation, but there was still some residual. A single troponin had been performed at 5:00 a.m. and was 0.100, repeat enzymes are currently pending. WBC count 8.5, hemoglobin 10.0, hematocrit 31, platelet count 188. INR 1.3. Sodium 141, potassium 3.5, BUN 21, creatinine 1.0. Summary of echocardiogram report performed today 01/12/2017 and reviewed independently by the undersigned. When compared to the prior study dated 08/27/2015, there has been an interval decline in the biventricular systolic function. Severe biventricular systolic dysfunction is present. The septal leaflet of the tricuspid valve is restricted by the AICD lead with resultant decreased systolic excursion and malcoaptation of the tricuspid valve causing tricuspid regurgitation. There was severe tricuspid regurgitation. Severe pulmonary hypertension is likely present based on the 2D findings. The inferior vena cava was noted to be dilated and the dilation persisted with inspiration consistent with elevated right atrial pressure. The left ventricular ejection fraction is severely reduced at 20% to 25%. The intraventricular septum is flattened consistent with right ventricular pressure and volume overload. Septal dyskinesis was present. The inferior wall is severely hypokinetic to akinetic. The anterior wall is severely hypokinetic. The right ventricle is severely dilated. The right ventricular systolic function is severely reduced. FINAL IMPRESSION: A 76-year-old male: 1. Acute inferior wall ST segment elevation myocardial infarction, appearance on emergent angiogram suggestive of right coronary artery thrombus, perhaps embolic thrombus from the left atrium related to atrial fibrillation versus from the left ventricle given severe left ventricular systolic dysfunction, rather than acute intracoronary plaque rupture. 2. Chronic atrial fibrillation, subtherapeutic international normalized ratio. 3. Worsening biventricular systolic dysfunction. 4. Severe tricuspid regurgitation, with restriction of the septal leaflet of the tricuspid valve due to AICD lead placement, severe tricuspid regurgitation. 5. Ventricular fibrillation, refractory to multiple AICD shocks, with patient having received a total of 11 appropriate AICD shocks. DISCUSSION AND RECOMMENDATIONS: Regarding his ventricular fibrillation, this was likely due to acute myocardial ischemia in the setting of an underlying cardiomyopathy, with resultant arrhythmia. I am optimistic now that his right coronary artery flow has been restored that the arrhythmia situation should improve. He is on carvedilol as an outpatient. The dose has been limited due to relative hypotension and orthostatic symptoms in the past apparently. At present, patient's blood pressure is on the lower side, and there is some degree of tachycardia. I am going to hold his carvedilol, and administer low dose metoprolol tartrate with plans to transition him back to carvedilol as tolerated depending upon his blood pressure. Benazepril is on hold at present given relative hypotension. Also, we need to monitor his kidney function given the suspected long time interval of hypotension. I suspect that he will likely have some degree of ATN from decreased cardiac output around the time of his event and therefore would like to hold off on his BRIANA inhibitor. Continue, Rosuvastatin. He has completed a course of Integrilin. His right radial site is intact, and the band is being removed. Unfractionated heparin infusion is going to be started with plans to keep him on heparin for 48 hours and ultimately transition him back to anticoagulation. Looking ahead at his anticoagulation, based on interviewing patient and his family, it appears that he has not been adherent to his home medication list. Looking ahead he either needs more vigilant follow up perhaps with the assistance of visiting nursing to make sure that he is taking his medications including his Coumadin. An alternative therapy would be to consider placing him on a direct oral anticoagulant, however, this would still have issues regarding adherence. At this point, it is not certain that he was subtherapeutic from difficulty with monitoring his INR and keeping him therapeutic but perhaps patient was misunderstanding his medication doses. During my discussion with him this evening, he certainly does not know his medications well. Clopidogrel and aspirin are going to be continued. Recommend at least a 1 month course of clopidogrel given plain balloon angioplasty. MTDD
[2017-01-12] MEDS: ROSUVASTATIN CALCIUM 20 MG TAB PO SCH (20:19)
[2017-01-13] VITALS (12 sets, daily range): BP systolic 88–131; BP diastolic 56–82; PULSE 83–102; TEMP 36.5–36.8; O2SAT 94–98
[2017-01-13] MEDS: HEPARIN 25,000 UNIT/500ML D5W 500 ML IV PRN ×2 (01:00→10:18)
[2017-01-13 06:40] LABS: MEAN CORPUSCULAR HEMOGLOBIN 28.4 pg (25-34); MEAN CORPUSCULAR HGB CONC 32.3 g/dl (32-36); MEAN PLATELET VOLUME 10.3 fL (7.4-10.4); PLATELET COUNT 205 K/uL (130-400); RED BLOOD COUNT 3.41 M/uL (4.7-6.1); WHITE BLOOD COUNT 7.86 K/uL (4.8-10.8)
[2017-01-13] MEDS: INSULIN ASPART 100 UNITS/ML 3 ML PEN SC SCH ×4 (06:45→20:59)
[2017-01-13 06:58] LABS: PARTIAL THROMBOPLASTIN RATIO 4.3
[2017-01-13 07:21] LABS: CALCIUM 8.8 mg/dl (8.5-10.1); CREATININE 1.6 mg/dl (0.60-1.40); MAGNESIUM 2.2 mg/dl (1.8-2.4); POTASSIUM 4.5 mmol/L (3.5-5.1)
[2017-01-13 07:46] LABS: CKMB/CK RATIO 13.4 (0-3.0)
[2017-01-13] MEDS: ASPIRIN 81 MG ECTAB PO SCH (07:59)
[2017-01-13] MEDS: FERROUS GLUCONATE 324 MG TAB PO SCH ×2 (07:59→17:05)
[2017-01-13] MEDS: FUROSEMIDE 20 MG TAB PO SCH (08:00)
[2017-01-13] MEDS: DIGOXIN 0.125 MG TAB PO SCH (08:00)
[2017-01-13] MEDS: CLOPIDOGREL BISULFATE 75 MG TAB PO SCH (08:01)
[2017-01-13] MEDS: METOPROLOL TARTRATE 25 MG TAB PO SCH ×2 (08:01→21:06)
[2017-01-13] MEDS: PANTOprazole SOD 40 MG TAB PO SCH (08:02)
[2017-01-13] MEDS: CYANOCOBALAMIN 500 MCG TAB (VIT B-12) PO SCH (08:02)
--- NOTE | 2017-01-13 09:03 | Clinical Documentation Query ---
[facility] : CLINICAL DOCUMENTATION QUERY Patient is a 76 year old male admitted for treatment of acute inferior wall STEMI. H&P notes a history of ischemic cardiomyopathy for which the patient is maintained on an outpatient regimen including Lasix, Benazepril, Coreg, and Digoxin. Repeat echocardiogram demonstrated severe biventricular systolic dysfunction. In your clinical opinion is this patient being managed for: ( X ) Chronic systolic CHF secondary to ischemic cardiomyopathy ( ) Other explanation of clinical findings (Please Explain) ( ) Unable to determine (Please Define) ( ) Need to Discuss ( ) Not Agree The medical record reflects the following clinical findings, treatment, and risk factors. Clinical Indicators:patient is maintained on an outpatient regimen including Lasix, Benazepril, Coreg, and Digoxin. Repeat echocardiogram demonstrated severe biventricular systolic dysfunction Treatment: As above Risk Factors: Age, AF, CAD, DM, ischemic cardiomyopathy Please clarify and document your clinical opinion in the progress notes and discharge summary. Terms such as "probable", "suspected", "likely", "questionable", "possible", or "still to be ruled out" are acceptable. IF IN AGREEMENT, YOU MUST DOCUMENT ABOVE DIAGNOSTIC STATEMENT IN DAILY PROGRESS NOTES AND DISCHARGE SUMMARY. This document is not part of the patient's record. Thank You, Jules Dacosta, RN [phone]
--- NOTE | 2017-01-13 11:43 | Cardiology Follow-Up ---
Subjective General Date of Service: Jan 13, 2017. Chief Complaint: follow up HI, VF, AICD discharges Pt evaluation today including: conversation w/ patient, physical exam History of Present Illness The patient is a 76 year old male seen in follow up. Pt denies chest pain. Feeling well. Heart rate improved overnight, SR at 90 bpm at present. No ventricular arrhythmias noted on telemetry, just atrial fibrillation which is a chronic condition for him. Allergies Coded Allergies: BRIANA Inhibitors (Verified Allergy, Unknown, cough, 01/12/17) Cefuroxime (Verified Allergy, Unknown, GI SYMPTOMS, 01/12/17) Codeine (Verified Allergy, Unknown, GI SYMPTOMS, 01/12/17) Social History Smoking Status: Never Smoker Hx Tobacco Use In Past Year?: Yes (chewing tobacco everyday) Hx Alcohol Use - Type And Amou: No Hx Substance Use - Type And Am: No Physical Exam Vital Signs Last Vital Signs Documentation Date Time Temp Pulse Resp B/P Pulse Ox O2 Delivery O2 Flow Rate FiO2 01/13/17 10:00 90 18 108/67 95 Nasal Cannula 2.0 01/13/17 08:00 36.5 01/12/17 06:42 100 Physical Exam Constitutional: Level of Distress: NAD ENMT: normal ENT inspection Neck: supple Lungs: Auscultation: no wheezing, no rales/crackles, no rhonchi Cardiovascular: Heart Auscultation: II/ LAURA, irregular rate rhythm Abdomen: Inspection & Palpation: soft, non-distended Extremities: no cyanosis, pertinent finding (1+ biltatera LE edema) Neurologic: Gait & Station: pertinent finding (no focal deficits ) Assessment and Plan Assessment and Plan Last Resulted 01/13/17 06:00 Last Resulted 01/13/17 06:05 Past 24 Hours Test 01/12/17 16:36 01/13/17 06:05 Range/Units Creatine Kinase MB 383.3 H 183.6 H 0.5-3.6 ng/ml Creatine Kinase MB Ratio 21.0 H 13.4 H 0-3.0 Prothromb Time International Ratio 1.3 H 0.9-1.1 Prothrombin Time 13.5 H 9.0-12.0 SECONDS Total Creatine Kinase 1825 H 1374 H 39-308 U/L Troponin I 86.900 *H 76.800 *H 0-0.045 ng/ml IMPRESSION: 76-year-old male: 1. Acute inferior wall ST segment elevation myocardial infarction, appearance on emergent angiogram suggestive of right coronary artery thrombus, perhaps embolic thrombus from the left atrium related to atrial fibrillation versus from the left ventricle given severe left ventricular systolic dysfunction, rather than acute intracoronary plaque rupture. 2. Chronic atrial fibrillation, subtherapeutic international normalized ratio. 3. Worsening biventricular systolic dysfunction. 4. Severe tricuspid regurgitation, with restriction of the septal leaflet of the tricuspid valve due to AICD lead placement, severe tricuspid regurgitation. 5. Ventricular fibrillation, refractory to multiple AICD shocks, with patient having received a total of 11 appropriate AICD shocks. Plan: Continue low dose metoprolol, unable to increase dose today given relative hypotension, with SBP in the 90-100 mm hg rang. Hold ACEI and diuretics given low BP and elevated creatinine. Creatinine elevation no surprising given hemodynamic events on presentation with VF. VF was likely due to ischemia. Continue beta bryan. Continue heparin, add coumadin. Stable to transfer to PCU. Laboratory Results Last 24 Hours Test 01/12/17 11:38 01/12/17 16:36 01/12/17 16:49 01/12/17 21:30 Bedside Glucose 135 mg/dl 112 mg/dl 134 mg/dl White Blood Count 8.51 K/uL Red Blood Count 3.62 M/uL Hemoglobin 10.0 g/dL Hematocrit 31.8 % Mean Corpuscular Volume 87.8 fL Mean Corpuscular Hemoglobin 27.6 pg Mean Corpuscular Hemoglobin Concent 31.4 g/dl Platelet Count 188 K/uL Mean Platelet Volume 9.7 fL Neutrophils (%) (Auto) 74.9 % Lymphocytes (%) (Auto) 9.0 % Monocytes (%) (Auto) 15.3 % Eosinophils (%) (Auto) 0.5 % Basophils (%) (Auto) 0.2 % Neutrophils # (Auto) 6.37 K/uL Lymphocytes # (Auto) 0.77 K/uL Monocytes # (Auto) 1.30 K/uL Eosinophils # (Auto) 0.04 K/uL Basophils # (Auto) 0.02 K/uL RDW Standard Deviation 54.5 fL RDW Coefficient of Variation 16.8 % Immature Granulocyte % (Auto) 0.1 % Immature Granulocyte # (Auto) 0.01 K/uL Prothrombin Time 13.5 SECONDS Prothromb Time International Ratio 1.3 Activated Partial Thromboplast Time 31.1 SECONDS Partial Thromboplastin Ratio 1.2 Total Creatine Kinase 1825 U/L Creatine Kinase MB 383.3 ng/ml Creatine Kinase MB Ratio 21.0 Troponin I 86.900 ng/ml Test 01/12/17 23:03 01/13/17 06:00 01/13/17 06:01 01/13/17 06:05 Activated Partial Thromboplast Time 77.6 SECONDS 110.9 SECONDS Partial Thromboplastin Ratio 3.0 4.3 White Blood Count 7.86 K/uL Red Blood Count 3.41 M/uL Hemoglobin 9.7 g/dL Hematocrit 30.0 % Mean Corpuscular Volume 88.0 fL Mean Corpuscular Hemoglobin 28.4 pg Mean Corpuscular Hemoglobin Concent 32.3 g/dl RDW Standard Deviation 54.5 fL RDW Coefficient of Variation 16.9 % Platelet Count 205 K/uL Mean Platelet Volume 10.3 fL Bedside Glucose 120 mg/dl Sodium Level 140 mmol/L Potassium Level 4.5 mmol/L Chloride Level 105 mmol/L Carbon Dioxide Level 24 mmol/L Anion Gap 11.0 mmol/L Blood Urea Nitrogen 26 mg/dl Creatinine 1.60 mg/dl Est Creatinine Clear Calc Drug Dose 44.6 ml/min Estimated GFR () 47.5 Estimated GFR (Non- 40.9 BUN/Creatinine Ratio 16.0 Random Glucose 110 mg/dl Calcium Level 8.8 mg/dl Magnesium Level 2.2 mg/dl Total Creatine Kinase 1374 U/L Creatine Kinase MB 183.6 ng/ml Creatine Kinase MB Ratio 13.4 Troponin I 76.800 ng/ml Test 01/13/17 11:17 Bedside Glucose 192 mg/dl
--- NOTE | 2017-01-13 12:13 | Critical Care Progress Note ---
Critical Care Progress Note Date of Service Jan 13, 2017. ICU Day ICU Day Number: [address] Soumya Gregg Parth Cobian, michelle Miles, is a 76yo male who presented to the ICU yesterday s/p STEMI with clean cath, thought to be from thrombus 2/2 subtherapeutic Coumadin levels. He is now receiving Heparin infusion for medical management of his A. fib and STEMI. He remains hemodynamically stable today with no acute events overnight. He is laying in bed upon my arrival resting on 2L O2. I assisted nursing to help pt to bedside chair. We removed his O2 at that time and his saturations remained greater than 95%. Dr. Jimenez has also followed up with this pt today and according to his notes, he is agreeable to transfer from the ICU. Jd was a little concerned today that as I entered his sugars were 190 prior to his lunch tray. He was reassured that these things will continue to be followed by the hospital care team. He denies fever, chills, chest pain/ pressure, awareness of tachyarrhythmias, trouble breathing. He does have an occasional irritating cough that is non-productive. He denies nausea, abd pain, numbness/tingling of extremities, or overall weakness. He does state that he is tired. Objective Vital Signs - as noted Laboratory Data - as noted Physical Exam: General - NAD Eyes - PERRL, EOMI No icterus, gaze conjugate ENT - Mucosa moist, no lesions or candidiasis Neck - Supple, trachea midline, no masses or lymphadenopathy, no JVD or bruits Lungs - No paradoxical chest wall movement,coarse to auscultation bilaterally, diminished in the bases. no wheezes, rales, or rhonchi Heart - Irregularly irregular, No murmur, rubs, clicks, or gallops appreciated Abdomen - BS present, no bruits noted, tympanic to percussion, soft, nontender, nondistended, no organomegaly Extremities - +2-3 Pitting edema noted, pedal pulses intact Neuro - A&OX4 Strength extremities equal and appropriate bilaterally CN:PERRL, EOMI, no facial asymmetry, uvula/tongue midline Assessment & Plan Cardiology: * Dr. Jimenez consulted & Following * Transfer from ICU to telemetry at this time * Anticoagulation per Dr. Jimenez, continue Heparin Drip with transition to Coumadin * Continue Metoprolol at low dose per Cardiology, as SBP is in low 100's * Hold ACEI and Lasix PO today 2/ rise in Cr * Continue remaining Home Cardiac Medications Renal: Cr 1.2; Now 1.6; expected rise secondary to ischemia likely during Ventricular Fibrillation runs noted on device interrogation * Bump in Cr * Hold Nephrotoxic medications where possible * Monitor I&O's * Follow Daily PRP Heme: H&H 9.7/30.0; Plts 205 PTT 110.9 * Follow daily CBC * Monitor for dilution, prefer Hemoglobin > 10 in setting of STEMI Resp: Respiratory depression noted during cath 12/24 sedatives. * Provide Supplemental O2 as needed * Continue monitoring on Telemetry GI: * Continue Diet, Pt tolerating * No BM this admission, consider Bowel Regimen if no BM tomorrow * Continue Home Protonix PO Neuro: A&O x 4, No pain Prior Hx of stroke * Continue to monitor ID: WBC: 7.86, Afebrile * Monitor daily CBC and Fever curve * Alert care team of any clinical change Access: * [address]; no indication for Central Access at this time CCT: 0 minutes; Level 2 inpatient billing. Not including any billable procedures. Thank you for including us in the care of this patient. Please review Dr. Soumya Torres's addendum for further recommendations. Consults & Procedures Consultants: Cardiology: Dr. Jimenez Procedures: Cath 01/12 ECHO 01/12 Data Medications: Current Inpatient Medications Medications (Trade) Dose Ordered Sig/Magaly Route Start Time Stop Time Status Last Admin Dose Admin Atropine Sulfate (Atropine Sulfate 0.1MG/Ml Inj) 0.5 mg ONE PRN IV 01/12/17 07:00 02/11/17 06:59 Aspirin (Ecotrin Tab) 81 mg QAM PO 01/12/17 09:00 02/11/17 08:59 01/13/17 07:59 81 MG Clopidogrel Bisulfate (plAVix TAB) 75 mg QAM PO 01/13/17 09:00 02/12/17 08:59 01/13/17 08:01 75 MG Acetaminophen (Tylenol Tab) 650 mg Q6H PRN PO 01/12/17 10:00 02/11/17 09:59 Cyanocobalamin (Vitamin B-12 Tab) 1,000 mcg DAILY PO 01/13/17 09:00 02/12/17 08:59 01/13/17 08:02 1,000 MCG Digoxin (Lanoxin Tab) 0.125 mg DAILY PO 01/13/17 09:00 02/12/17 08:59 01/13/17 08:00 0.125 MG Ferrous Gluconate (Ferrous Gluconate Tab) 324 mg BIDM PO 01/12/17 16:30 02/11/17 16:29 01/13/17 07:59 324 MG Furosemide (Lasix Tab) 20 mg DAILY PO 01/13/17 09:00 02/12/17 08:59 Future Hold 01/13/17 08:00 20 MG Pantoprazole Sodium (Protonix Tab) 40 mg DAILY PO 01/13/17 09:00 02/12/17 08:59 01/13/17 08:02 40 MG Rosuvastatin Calcium (Crestor Tab) 20 mg HS PO 01/12/17 21:00 02/11/17 20:59 01/12/17 20:19 20 MG Insulin Aspart (novoLOG ASPART) SLIDING SCALE If C... ACHS SC 01/12/17 11:00 02/11/17 10:59 01/13/17 11:40 4 UNITS Glucose (Glucose 40% Gel) 15-30 GRAMS 15 GRAMS... UD PRN PO 01/12/17 10:30 02/11/17 10:29 Glucose (Glucose Chew Tab) 4-8 Tablets 4 Tabl... UD PRN PO 01/12/17 10:30 02/11/17 10:29 Dextrose (Dextrose 50% 50ML Syringe) 25-50ML OF 50% DW IV FOR... UD PRN IV 01/12/17 10:30 02/11/17 10:29 Glucagon 1 mg 1 mg UD PRN SQ 01/12/17 10:30 02/11/17 10:29 Heparin Sodium/ Dextrose (Heparin 25,000 Unit/500ml D5W) 500 ml @ 22 mls/hr [id number] PRN IV 01/12/17 16:15 02/11/17 16:14 01/13/17 10:18 22 MLS/HR Metoprolol Tartrate (Lopressor Tab) 12.5 mg BID PO 01/13/17 09:00 02/12/17 08:59 01/13/17 08:01 12.5 MG Warfarin Sodium (Coumadin Tab) 5 mg DAILY@16 PO 01/13/17 16:00 02/12/17 15:59 I & O: 24-Hour Column 01/13/17 07:59 Intake Total 914 ml Output Total 490 ml Balance 424 ml Vital Signs: Date Time Temp Pulse Resp B/P Pulse Ox O2 Delivery O2 Flow Rate FiO2 01/13/17 10:00 90 18 108/67 95 Nasal Cannula 2.0 01/13/17 08:00 36.5 94 19 120/69 94 Nasal Cannula 2.0 01/13/17 08:00 94 Nasal Cannula 2.0 01/13/17 08:00 96 01/13/17 06:00 91 20 109/78 96 Nasal Cannula 4.0 01/13/17 04:59 87 16 102/66 96 Nasal Cannula 4.0 01/13/17 04:00 Nasal Cannula 5.0 01/13/17 03:58 36.8 87 17 102/81 98 Nasal Cannula 4.0 01/13/17 02:58 84 12 110/56 96 Nasal Cannula 4.0 01/13/17 02:16 86 16 88/61 97 Nasal Cannula 4.0 01/13/17 02:00 101 17 88/61 96 Nasal Cannula 4.0 01/13/17 00:58 102 16 131/69 95 Nasal Cannula 4.0 01/13/17 00:01 Nasal Cannula 5.0 01/12/17 23:58 36.6 96 16 127/59 95 Nasal Cannula 4.0 01/12/17 22:59 101 17 119/47 94 Nasal Cannula 4.0 01/12/17 21:59 86 18 133/61 91 Room Air 01/12/17 20:59 66 20 149/78 92 Room Air 01/12/17 20:00 Nasal Cannula 5.0 01/12/17 19:58 36.7 82 17 131/73 95 Room Air 01/12/17 19:30 109 18 136/90 94 Room Air 01/12/17 16:00 109 20 120/81 95 Room Air 01/12/17 16:00 95 Room Air 01/12/17 14:00 111 18 114/57 95 Room Air 01/12/17 12:38 100 01/12/17 12:00 95 Nasal Cannula 5.0 01/12/17 12:00 97 20 104/74 100 Nasal Cannula 5.0 Laboratory Results: Last 24 Hours Test 01/12/17 16:36 01/12/17 16:49 01/12/17 21:30 01/12/17 23:03 White Blood Count 8.51 K/uL Red Blood Count 3.62 M/uL Hemoglobin 10.0 g/dL Hematocrit 31.8 % Mean Corpuscular Volume 87.8 fL Mean Corpuscular Hemoglobin 27.6 pg Mean Corpuscular Hemoglobin Concent 31.4 g/dl Platelet Count 188 K/uL Mean Platelet Volume 9.7 fL Neutrophils (%) (Auto) 74.9 % Lymphocytes (%) (Auto) 9.0 % Monocytes (%) (Auto) 15.3 % Eosinophils (%) (Auto) 0.5 % Basophils (%) (Auto) 0.2 % Neutrophils # (Auto) 6.37 K/uL Lymphocytes # (Auto) 0.77 K/uL Monocytes # (Auto) 1.30 K/uL Eosinophils # (Auto) 0.04 K/uL Basophils # (Auto) 0.02 K/uL RDW Standard Deviation 54.5 fL RDW Coefficient of Variation 16.8 % Immature Granulocyte % (Auto) 0.1 % Immature Granulocyte # (Auto) 0.01 K/uL Prothrombin Time 13.5 SECONDS Prothromb Time International Ratio 1.3 Activated Partial Thromboplast Time 31.1 SECONDS 77.6 SECONDS Partial Thromboplastin Ratio 1.2 3.0 Total Creatine Kinase 1825 U/L Creatine Kinase MB 383.3 ng/ml Creatine Kinase MB Ratio 21.0 Troponin I 86.900 ng/ml Bedside Glucose 112 mg/dl 134 mg/dl Test 01/13/17 06:00 01/13/17 06:01 01/13/17 06:05 01/13/17 11:17 White Blood Count 7.86 K/uL Red Blood Count 3.41 M/uL Hemoglobin 9.7 g/dL Hematocrit 30.0 % Mean Corpuscular Volume 88.0 fL Mean Corpuscular Hemoglobin 28.4 pg Mean Corpuscular Hemoglobin Concent 32.3 g/dl RDW Standard Deviation 54.5 fL RDW Coefficient of Variation 16.9 % Platelet Count 205 K/uL Mean Platelet Volume 10.3 fL Bedside Glucose 120 mg/dl 192 mg/dl Activated Partial Thromboplast Time 110.9 SECONDS Partial Thromboplastin Ratio 4.3 Sodium Level 140 mmol/L Potassium Level 4.5 mmol/L Chloride Level 105 mmol/L Carbon Dioxide Level 24 mmol/L Anion Gap 11.0 mmol/L Blood Urea Nitrogen 26 mg/dl Creatinine 1.60 mg/dl Est Creatinine Clear Calc Drug Dose 44.6 ml/min Estimated GFR () 47.5 Estimated GFR (Non- 40.9 BUN/Creatinine Ratio 16.0 Random Glucose 110 mg/dl Calcium Level 8.8 mg/dl Magnesium Level 2.2 mg/dl Total Creatine Kinase 1374 U/L Creatine Kinase MB 183.6 ng/ml Creatine Kinase MB Ratio 13.4 Troponin I 76.800 ng/ml
[2017-01-13 15:01] LABS: PARTIAL THROMBOPLASTIN RATIO 2.7
[2017-01-13] MEDS: WARFARIN SOD 5 MG TAB PO SCH (17:04)
--- NOTE | 2017-01-13 18:59 | Progress Note ---
Medicine Progress Note Date & Time of Visit: Jan 13, 2017 at 18:54. Subjective Patient seen and examined. Still wants to go home joe. Denies chest pain. Family present at bedside. Objective Last 8 Hrs Date Time Temp Pulse Resp B/P Pulse Ox O2 Delivery O2 Flow Rate FiO2 01/13/17 12:00 Room Air 01/13/17 12:00 36.8 83 19 111/68 95 Room Air Physical Exam: General-awake; alert; NAD Eyes-EOMI; no scleral icterus Neck-no stridor; trachea midline Lungs-CTA bilaterally; no wheezes/crackles Heart-irregularly irregular Abdomen-soft; NTND; nBS Extremities-1+ pitting edema of bilateral lower legs Neuro-no gross focal deficits Laboratory Results: Last 24 Hours Test 01/12/17 21:30 01/12/17 23:03 01/13/17 06:00 01/13/17 06:01 Bedside Glucose 134 mg/dl 120 mg/dl Activated Partial Thromboplast Time 77.6 SECONDS Partial Thromboplastin Ratio 3.0 White Blood Count 7.86 K/uL Red Blood Count 3.41 M/uL Hemoglobin 9.7 g/dL Hematocrit 30.0 % Mean Corpuscular Volume 88.0 fL Mean Corpuscular Hemoglobin 28.4 pg Mean Corpuscular Hemoglobin Concent 32.3 g/dl RDW Standard Deviation 54.5 fL RDW Coefficient of Variation 16.9 % Platelet Count 205 K/uL Mean Platelet Volume 10.3 fL Test 01/13/17 06:05 01/13/17 11:17 01/13/17 14:24 01/13/17 16:09 Activated Partial Thromboplast Time 110.9 SECONDS 70.7 SECONDS Partial Thromboplastin Ratio 4.3 2.7 Sodium Level 140 mmol/L Potassium Level 4.5 mmol/L Chloride Level 105 mmol/L Carbon Dioxide Level 24 mmol/L Anion Gap 11.0 mmol/L Blood Urea Nitrogen 26 mg/dl Creatinine 1.60 mg/dl Est Creatinine Clear Calc Drug Dose 44.6 ml/min Estimated GFR () 47.5 Estimated GFR (Non- 40.9 BUN/Creatinine Ratio 16.0 Random Glucose 110 mg/dl Calcium Level 8.8 mg/dl Magnesium Level 2.2 mg/dl Total Creatine Kinase 1374 U/L Creatine Kinase MB 183.6 ng/ml Creatine Kinase MB Ratio 13.4 Troponin I 76.800 ng/ml Bedside Glucose 192 mg/dl 139 mg/dl Assessment & Plan STEMI - presented with nausea, vomiting, diaphoresis, and firing of AICD; EKG on arrival showed ST elevation inferiorly - patient taken to cath labs had PTCA of proximal-mid RCA - per Dr. Arce - occlusion was more thromboembolic in nature - ? from left atria or left ventricle; patient has history of chronic a. 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 - EF 25-30% on echo 08/2015 - continue beta bryan - hold melissa-i and furosemide given relative low-normal blood pressures and TOBIN ACUTE KIDNEY INJURY - likely ATN related to cardiac event - hold melissa-i and furosemide CHRONIC ATRIAL FIBRILLATION - rate controlled on dig and beta bryan - continue both - continue heparin drip - warfarin started HX V-TACH S/P AICD DM - hgb a1c 5.6 10/2016 - hold metformin, utilize SSI while hospitalized HX CVA - on ASA/Plavix DVT PROPHYLAXIS - Heparin drip Consultants: Cardiology Procedures: [facility] Findings: left dominant circulation. Subtotal proximal RCA and total mid RCA. PTCA performed to the proximal and mid RCA. GILMAR 3 flow established into a high rising acute marginal ( long small - medium caliber vessel) and to mid-distal RCA ( gives rise to two small caliber RV branches). No underlying stenosis in proximal or mid RCA. Left coronary artery with no significant disease. Patent LAD stent. Patient developed respiratory depression after versed and fentanyl . Subsequent oxygen desaturation requiring patient to be receive oxygen by bag and mask. After Romazicon and naloxone he returned to baseline mental status and normal respirations. Current Inpatient Medications: Current Inpatient Medications Medications (Trade) Dose Ordered Sig/Magaly Route Start Time Stop Time Status Last Admin Dose Admin Atropine Sulfate (Atropine Sulfate 0.1MG/Ml Inj) 0.5 mg ONE PRN IV 01/12/17 07:00 02/11/17 06:59 Aspirin (Ecotrin Tab) 81 mg QAM PO 01/12/17 09:00 02/11/17 08:59 01/13/17 07:59 81 MG Clopidogrel Bisulfate (plAVix TAB) 75 mg QAM PO 01/13/17 09:00 02/12/17 08:59 01/13/17 08:01 75 MG Acetaminophen (Tylenol Tab) 650 mg Q6H PRN PO 01/12/17 10:00 02/11/17 09:59 Cyanocobalamin (Vitamin B-12 Tab) 1,000 mcg DAILY PO 01/13/17 09:00 02/12/17 08:59 01/13/17 08:02 1,000 MCG Digoxin (Lanoxin Tab) 0.125 mg DAILY PO 01/13/17 09:00 02/12/17 08:59 01/13/17 08:00 0.125 MG Ferrous Gluconate (Ferrous Gluconate Tab) 324 mg BIDM PO 01/12/17 16:30 02/11/17 16:29 01/13/17 17:05 324 MG Furosemide (Lasix Tab) 20 mg DAILY PO 01/13/17 09:00 02/12/17 08:59 Future Hold 01/13/17 08:00 20 MG Pantoprazole Sodium (Protonix Tab) 40 mg DAILY PO 01/13/17 09:00 02/12/17 08:59 01/13/17 08:02 40 MG Rosuvastatin Calcium (Crestor Tab) 20 mg HS PO 01/12/17 21:00 02/11/17 20:59 01/12/17 20:19 20 MG Insulin Aspart (novoLOG ASPART) SLIDING SCALE If C... ACHS SC 01/12/17 11:00 02/11/17 10:59 01/13/17 11:40 4 UNITS Glucose (Glucose 40% Gel) 15-30 GRAMS 15 GRAMS... UD PRN PO 01/12/17 10:30 02/11/17 10:29 Glucose (Glucose Chew Tab) 4-8 Tablets 4 Tabl... UD PRN PO 01/12/17 10:30 02/11/17 10:29 Dextrose (Dextrose 50% 50ML Syringe) 25-50ML OF 50% DW IV FOR... UD PRN IV 01/12/17 10:30 02/11/17 10:29 Glucagon 1 mg 1 mg UD PRN SQ 01/12/17 10:30 02/11/17 10:29 Heparin Sodium/ Dextrose (Heparin 25,000 Unit/500ml D5W) 500 ml @ 20 mls/hr Q24H PRN IV 01/12/17 16:15 02/11/17 16:14 01/13/17 10:18 22 MLS/HR Metoprolol Tartrate (Lopressor Tab) 12.5 mg BID PO 01/13/17 09:00 02/12/17 08:59 01/13/17 08:01 12.5 MG Warfarin Sodium (Coumadin Tab) 5 mg DAILY@16 PO 01/13/17 16:00 02/12/17 15:59 01/13/17 17:04 5 MG
[2017-01-13] MEDS: ROSUVASTATIN CALCIUM 20 MG TAB PO SCH (21:05)
[2017-01-13 22:12] LABS: PARTIAL THROMBOPLASTIN RATIO 2.2
[2017-01-14] VITALS (8 sets, daily range): BP systolic 117–135; BP diastolic 59–78; PULSE 60–99; TEMP 36.4–36.7; O2SAT 92–97
[2017-01-14] MEDS: ACETAMINOPHEN 325 MG TAB PO PRN ×2 (03:59→23:38)
[2017-01-14 06:47] LABS: HEMATOCRIT 28.8 % (42-52); MEAN CELL VOLUME 87.3 fL (80-100); MEAN CORPUSCULAR HEMOGLOBIN 27.6 pg (25-34); MEAN CORPUSCULAR HGB CONC 31.6 g/dl (32-36); MEAN PLATELET VOLUME 9.6 fL (7.4-10.4); PLATELET COUNT 180 K/uL (130-400); WHITE BLOOD COUNT 7.81 K/uL (4.8-10.8)
[2017-01-14 07:05] LABS: INR 1.3 (0.9-1.1); PARTIAL THROMBOPLASTIN RATIO 2.3; PROTHROMBIN TIME (PATIENT) 14.3 SECONDS (9.0-12.0)
[2017-01-14 07:22] LABS: BUN/CREATININE RATIO 16.9 (10-20); CALCIUM 8.5 mg/dl (8.5-10.1); CREATININE 1.9 mg/dl (0.60-1.40); MAGNESIUM 2.2 mg/dl (1.8-2.4); POTASSIUM 4.2 mmol/L (3.5-5.1)
[2017-01-14] MEDS: METOPROLOL TARTRATE 25 MG TAB PO SCH ×2 (08:46→20:40)
[2017-01-14] MEDS: INSULIN ASPART 100 UNITS/ML 3 ML PEN SC SCH ×4 (08:50→20:38)
[2017-01-14] MEDS: PANTOprazole SOD 40 MG TAB PO SCH (09:34)
[2017-01-14] MEDS: ASPIRIN 81 MG ECTAB PO SCH (09:34)
[2017-01-14] MEDS: FERROUS GLUCONATE 324 MG TAB PO SCH ×2 (09:34→17:05)
[2017-01-14] MEDS: CYANOCOBALAMIN 500 MCG TAB (VIT B-12) PO SCH (09:35)
[2017-01-14] MEDS: CLOPIDOGREL BISULFATE 75 MG TAB PO SCH (09:35)
[2017-01-14] MEDS: DIGOXIN 0.125 MG TAB PO SCH (09:36)
--- NOTE | 2017-01-14 14:28 | Cardiology Follow-Up ---
Subjective General Date of Service: Jan 14, 2017. Chief Complaint: follow up NH, VF, AICD discharges Pt evaluation today including: conversation w/ patient, physical exam History of Present Illness The patient is a 76 year old male seen in follow up. Pt out of bed in chair and feeling well. BP is better. Creatine still above prior baseline. Allergies Coded Allergies: BRIANA Inhibitors (Verified Allergy, Unknown, cough, 01/12/17) Cefuroxime (Verified Allergy, Unknown, GI SYMPTOMS, 01/12/17) Codeine (Verified Allergy, Unknown, GI SYMPTOMS, 01/12/17) Social History Smoking Status: Never Smoker Hx Tobacco Use In Past Year?: Yes (chewing tobacco everyday) Hx Alcohol Use - Type And Amou: No Hx Substance Use - Type And Am: No Physical Exam Vital Signs Last Vital Signs Documentation Date Time Temp Pulse Resp B/P Pulse Ox O2 Delivery O2 Flow Rate FiO2 01/14/17 12:00 Room Air 01/14/17 11:35 36.6 66 18 120/68 95 01/13/17 10:00 2.0 01/12/17 06:42 100 Physical Exam Constitutional: Level of Distress: NAD ENMT: normal ENT inspection Neck: supple Lungs: Auscultation: no wheezing, no rales/crackles, no rhonchi Cardiovascular: Heart Auscultation: II/ LAURA, irregular rate rhythm Abdomen: Inspection & Palpation: soft, non-distended Extremities: no cyanosis, pertinent finding (1+ biltatera LE edema) Neurologic: Gait & Station: pertinent finding (no focal deficits ) Assessment and Plan Assessment and Plan IMPRESSION: 76-year-old male: 1. Acute inferior wall ST segment elevation myocardial infarction, appearance on emergent angiogram suggestive of right coronary artery thrombus, perhaps embolic thrombus from the left atrium related to atrial fibrillation versus from the left ventricle given severe left ventricular systolic dysfunction, rather than acute intracoronary plaque rupture. 2. Chronic atrial fibrillation, subtherapeutic international normalized ratio. 3. Worsening biventricular systolic dysfunction. 4. Severe tricuspid regurgitation, with restriction of the septal leaflet of the tricuspid valve due to AICD lead placement, severe tricuspid regurgitation. 5. Ventricular fibrillation, refractory to multiple AICD shocks, with patient having received a total of 11 appropriate AICD shocks. Plan: Increase metoprolol tartrate to 25 mg BID. Hold ACEI and diuretics given low BP and elevated creatinine. Creatinine elevation no surprising given hemodynamic events on presentation with VF. VF was likely due to myocardial ischemia, which is corrected with PCI. Continue beta bryan. Continue heparin bridge, and coumadin. Will need home edie to assist with medications, pill box as outpt, and home health phlebotomy for INR. Laboratory Results Last 24 Hours Test 01/13/17 16:09 01/13/17 20:12 01/13/17 21:45 01/14/17 06:14 Bedside Glucose 139 mg/dl 125 mg/dl Activated Partial Thromboplast Time 56.6 SECONDS 59.0 SECONDS Partial Thromboplastin Ratio 2.2 2.3 White Blood Count 7.81 K/uL Red Blood Count 3.30 M/uL Hemoglobin 9.1 g/dL Hematocrit 28.8 % Mean Corpuscular Volume 87.3 fL Mean Corpuscular Hemoglobin 27.6 pg Mean Corpuscular Hemoglobin Concent 31.6 g/dl RDW Standard Deviation 54.4 fL RDW Coefficient of Variation 17.0 % Platelet Count 180 K/uL Mean Platelet Volume 9.6 fL Prothrombin Time 14.3 SECONDS Prothromb Time International Ratio 1.3 Sodium Level 134 mmol/L Potassium Level 4.2 mmol/L Chloride Level 102 mmol/L Carbon Dioxide Level 24 mmol/L Anion Gap 8.0 mmol/L Blood Urea Nitrogen 32 mg/dl Creatinine 1.90 mg/dl Est Creatinine Clear Calc Drug Dose 37.7 ml/min Estimated GFR () 38.6 Estimated GFR (Non- 33.3 BUN/Creatinine Ratio 16.9 Random Glucose 105 mg/dl Calcium Level 8.5 mg/dl Magnesium Level 2.2 mg/dl Test 01/14/17 06:20 01/14/17 11:27 Bedside Glucose 123 mg/dl 124 mg/dl
[2017-01-14] MEDS: WARFARIN SOD 5 MG TAB PO SCH (17:06)
--- NOTE | 2017-01-14 19:22 | Progress Note ---
Medicine Progress Note Date & Time of Visit: Jan 14, 2017 at 19:21. Subjective Patient seen and examined. Denies chest pain. Wants to know when he can go home. Objective Last 8 Hrs Date Time Temp Pulse Resp B/P Pulse Ox O2 Delivery O2 Flow Rate FiO2 01/14/17 15:30 36.4 78 20 132/78 97 Room Air 01/14/17 15:30 Room Air 01/14/17 12:00 Room Air 01/14/17 12:00 Room Air 01/14/17 11:35 36.6 66 18 120/68 95 Room Air Physical Exam: General-awake; alert; NAD Eyes-EOMI; no scleral icterus Neck-no stridor; trachea midline Lungs-CTA bilaterally; no wheezes/crackles Heart-irregularly irregular Abdomen-soft; NTND; nBS Extremities-1+ pitting edema of bilateral lower legs Neuro-no gross focal deficits Laboratory Results: Last 24 Hours Test 01/13/17 20:12 01/13/17 21:45 01/14/17 06:14 01/14/17 06:20 Bedside Glucose 125 mg/dl 123 mg/dl Activated Partial Thromboplast Time 56.6 SECONDS 59.0 SECONDS Partial Thromboplastin Ratio 2.2 2.3 White Blood Count 7.81 K/uL Red Blood Count 3.30 M/uL Hemoglobin 9.1 g/dL Hematocrit 28.8 % Mean Corpuscular Volume 87.3 fL Mean Corpuscular Hemoglobin 27.6 pg Mean Corpuscular Hemoglobin Concent 31.6 g/dl RDW Standard Deviation 54.4 fL RDW Coefficient of Variation 17.0 % Platelet Count 180 K/uL Mean Platelet Volume 9.6 fL Prothrombin Time 14.3 SECONDS Prothromb Time International Ratio 1.3 Sodium Level 134 mmol/L Potassium Level 4.2 mmol/L Chloride Level 102 mmol/L Carbon Dioxide Level 24 mmol/L Anion Gap 8.0 mmol/L Blood Urea Nitrogen 32 mg/dl Creatinine 1.90 mg/dl Est Creatinine Clear Calc Drug Dose 37.7 ml/min Estimated GFR () 38.6 Estimated GFR (Non- 33.3 BUN/Creatinine Ratio 16.9 Random Glucose 105 mg/dl Calcium Level 8.5 mg/dl Magnesium Level 2.2 mg/dl Test 01/14/17 11:27 01/14/17 16:13 Bedside Glucose 124 mg/dl 154 mg/dl Assessment & Plan STEMI - presented with nausea, vomiting, diaphoresis, and firing of AICD; EKG on arrival showed ST elevation inferiorly - patient taken to cath labs had PTCA of proximal-mid RCA - per Dr. Arce - occlusion was more thromboembolic in nature - ? from left atria or left ventricle; patient has history of chronic a. 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 - EF 25-30% on echo 08/2015 - EF 20-25% this admission - continue beta bryan - hold melissa-i and furosemide given relative low-normal blood pressures and TOBIN ACUTE KIDNEY INJURY - likely ATN related to cardiac event - hold melissa-i and furosemide CHRONIC ATRIAL FIBRILLATION - rate controlled on dig and beta bryan - continue both - continue heparin drip - warfarin started HX V-TACH S/P AICD DM - hgb a1c 5.6 10/2016 - hold metformin, utilize SSI while hospitalized HX CVA - on ASA/Plavix DVT PROPHYLAXIS - Heparin drip Consultants: Cardiology Procedures: [facility] Findings: left dominant circulation. Subtotal proximal RCA and total mid RCA. PTCA performed to the proximal and mid RCA. GILMAR 3 flow established into a high rising acute marginal ( long small - medium caliber vessel) and to mid-distal RCA ( gives rise to two small caliber RV branches). No underlying stenosis in proximal or mid RCA. Left coronary artery with no significant disease. Patent LAD stent. Patient developed respiratory depression after versed and fentanyl . Subsequent oxygen desaturation requiring patient to be receive oxygen by bag and mask. After Romazicon and naloxone he returned to baseline mental status and normal respirations. TTE * Compared to the prior study dated 08/27/15, there has been an interval decline in the biventricular systolic function. * Several biventricular systolic dysfunction is present. * The septal leaflet of the tricuspid valve is restricted by the AICD lead with resultant malcoaptation causing tricuspid regurgitation. * There is severe tricuspid regurgitation. * Severe pulmonary hypertension is likely present based on the 2D findings. * Dilated inferior vena cava with reduced collapsability with sniff indicates an elevated right atrial pressure of 15 mmHg Current Inpatient Medications: Current Inpatient Medications Medications (Trade) Dose Ordered Sig/Magaly Route Start Time Stop Time Status Last Admin Dose Admin Atropine Sulfate (Atropine Sulfate 0.1MG/Ml Inj) 0.5 mg ONE PRN IV 01/12/17 07:00 02/11/17 06:59 Aspirin (Ecotrin Tab) 81 mg QAM PO 01/12/17 09:00 02/11/17 08:59 01/14/17 09:34 81 MG Clopidogrel Bisulfate (plAVix TAB) 75 mg QAM PO 01/13/17 09:00 02/12/17 08:59 01/14/17 09:35 75 MG Acetaminophen (Tylenol Tab) 650 mg Q6H PRN PO 01/12/17 10:00 02/11/17 09:59 01/14/17 03:59 650 MG Cyanocobalamin (Vitamin B-12 Tab) 1,000 mcg DAILY PO 01/13/17 09:00 02/12/17 08:59 01/14/17 09:35 1,000 MCG Digoxin (Lanoxin Tab) 0.125 mg DAILY PO 01/13/17 09:00 02/12/17 08:59 01/14/17 09:36 0.125 MG Ferrous Gluconate (Ferrous Gluconate Tab) 324 mg BIDM PO 01/12/17 16:30 02/11/17 16:29 01/14/17 17:05 324 MG Furosemide (Lasix Tab) 20 mg DAILY PO 01/13/17 09:00 02/12/17 08:59 Future Hold 01/13/17 08:00 20 MG Pantoprazole Sodium (Protonix Tab) 40 mg DAILY PO 01/13/17 09:00 02/12/17 08:59 01/14/17 09:34 40 MG Rosuvastatin Calcium (Crestor Tab) 20 mg HS PO 01/12/17 21:00 02/11/17 20:59 01/13/17 21:05 20 MG Insulin Aspart (novoLOG ASPART) SLIDING SCALE If C... ACHS SC 01/12/17 11:00 02/11/17 10:59 01/14/17 16:15 0 UNITS Glucose (Glucose 40% Gel) 15-30 GRAMS 15 GRAMS... UD PRN PO 01/12/17 10:30 02/11/17 10:29 Glucose (Glucose Chew Tab) 4-8 Tablets 4 Tabl... UD PRN PO 01/12/17 10:30 02/11/17 10:29 Dextrose (Dextrose 50% 50ML Syringe) 25-50ML OF 50% DW IV FOR... UD PRN IV 01/12/17 10:30 02/11/17 10:29 Glucagon 1 mg 1 mg UD PRN SQ 01/12/17 10:30 02/11/17 10:29 Heparin Sodium/ Dextrose (Heparin 25,000 Unit/500ml D5W) 500 ml @ 20 mls/hr Q24H PRN IV 01/12/17 16:15 02/11/17 16:14 01/13/17 10:18 22 MLS/HR Warfarin Sodium (Coumadin Tab) 5 mg DAILY@16 PO 01/13/17 16:00 02/12/17 15:59 01/14/17 17:06 5 MG Metoprolol Tartrate (Lopressor Tab) 25 mg BID PO 01/14/17 21:00 02/13/17 20:59
[2017-01-14] MEDS: ROSUVASTATIN CALCIUM 20 MG TAB PO SCH (20:40)
[2017-01-15 03:42] VITALS: BP 112/74; PULSE 72; TEMP 36.7; O2SAT 96
[2017-01-15] MEDS: INSULIN ASPART 100 UNITS/ML 3 ML PEN SC SCH ×4 (07:00→21:00)
[2017-01-15 07:01] LABS: HEMATOCRIT 29.2 % (42-52); MEAN CELL VOLUME 86.6 fL (80-100); MEAN CORPUSCULAR HEMOGLOBIN 27.6 pg (25-34); MEAN CORPUSCULAR HGB CONC 31.8 g/dl (32-36); MEAN PLATELET VOLUME 9.9 fL (7.4-10.4); PLATELET COUNT 204 K/uL (130-400); RED BLOOD COUNT 3.37 M/uL (4.7-6.1); WHITE BLOOD COUNT 7.14 K/uL (4.8-10.8)
[2017-01-15 07:18] LABS: INR 1.3 (0.9-1.1); PARTIAL THROMBOPLASTIN RATIO 2.5; PROTHROMBIN TIME (PATIENT) 14.6 SECONDS (9.0-12.0)
[2017-01-15] MEDS: ASPIRIN 81 MG ECTAB PO SCH (07:33)
[2017-01-15] MEDS: CLOPIDOGREL BISULFATE 75 MG TAB PO SCH (07:33)
[2017-01-15] MEDS: METOPROLOL TARTRATE 25 MG TAB PO SCH (07:33)
[2017-01-15] MEDS: PANTOprazole SOD 40 MG TAB PO SCH (07:33)
[2017-01-15] MEDS: FERROUS GLUCONATE 324 MG TAB PO SCH ×2 (07:33→16:56)
[2017-01-15] MEDS: CYANOCOBALAMIN 500 MCG TAB (VIT B-12) PO SCH (07:33)
[2017-01-15] MEDS: DIGOXIN 0.125 MG TAB PO SCH (07:34)
[2017-01-15 07:38] LABS: BUN/CREATININE RATIO 18.7 (10-20); CALCIUM 8.4 mg/dl (8.5-10.1); CREATININE 1.7 mg/dl (0.60-1.40); POTASSIUM 4.3 mmol/L (3.5-5.1)
[2017-01-15 07:39] VITALS: BP 158/87; PULSE 84; TEMP 36.4; O2SAT 92
[2017-01-15 12:07] VITALS: BP 133/81; PULSE 73; TEMP 36.3; O2SAT 94
[2017-01-15] MEDS: HEPARIN 25,000 UNIT/500ML D5W 500 ML IV PRN (12:50)
[2017-01-15 15:40] VITALS: BP 136/87; PULSE 67; TEMP 36.3; O2SAT 94
--- NOTE | 2017-01-15 15:46 | Cardiology Follow-Up ---
Subjective General Date of Service: Jan 15, 2017. Chief Complaint: follow up NH, VF, AICD discharges Pt evaluation today including: conversation w/ patient, physical exam History of Present Illness The patient is a 76 year old male seen in follow up. Patient feeling well . No chest pain or shortness of breath. Telemetry reveals rate controlled AF. Allergies Coded Allergies: BRIANA Inhibitors (Verified Allergy, Unknown, cough, 01/12/17) Cefuroxime (Verified Allergy, Unknown, GI SYMPTOMS, 01/12/17) Codeine (Verified Allergy, Unknown, GI SYMPTOMS, 01/12/17) Social History Smoking Status: Never Smoker Hx Tobacco Use In Past Year?: Yes (chewing tobacco everyday) Hx Alcohol Use - Type And Amou: No Hx Substance Use - Type And Am: No Physical Exam Vital Signs Last Vital Signs Documentation Date Time Temp Pulse Resp B/P Pulse Ox O2 Delivery O2 Flow Rate FiO2 01/15/17 15:40 36.3 67 18 136/87 94 Room Air 01/13/17 10:00 2.0 01/12/17 06:42 100 Physical Exam Constitutional: Level of Distress: NAD ENMT: normal ENT inspection Neck: supple Lungs: Auscultation: no wheezing, no rales/crackles, no rhonchi Cardiovascular: Heart Auscultation: II/ LAURA, irregular rate rhythm Abdomen: Inspection & Palpation: soft, non-distended Extremities: no cyanosis, pertinent finding (1+ biltatera LE edema) Neurologic: Gait & Station: pertinent finding (no focal deficits ) Assessment and Plan Assessment and Plan IMPRESSION: 76-year-old male: 1. Acute inferior wall ST segment elevation myocardial infarction, appearance on emergent angiogram suggestive of right coronary artery thrombus, perhaps embolic thrombus from the left atrium related to atrial fibrillation versus from the left ventricle given severe left ventricular systolic dysfunction, rather than acute intracoronary plaque rupture. 2. Chronic atrial fibrillation, subtherapeutic international normalized ratio. 3. Worsening biventricular systolic dysfunction. 4. Severe tricuspid regurgitation, with restriction of the septal leaflet of the tricuspid valve due to AICD lead placement, severe tricuspid regurgitation. 5. Ventricular fibrillation, refractory to multiple AICD shocks, with patient having received a total of 11 appropriate AICD shocks. Plan: metoprolol tartrate to 25 mg BID. Home med list included coreg 12.5 mg BID, but I do not believe pt was taking this. Now that BP is better will transition back to coreg at 6.25 mg BID. Plan to resume home dose of 12.5 mg bid at some point. Holding ACEI and diuretics given low BP and elevated creatinine. Creatinine elevation no surprising given hemodynamic events on presentation with VF. VF was likely due to myocardial ischemia, which is corrected with PCI. Continue beta bryan. Continue heparin bridge, and coumadin. Will need home edie to assist with medications, pill box as outpt, and home health phlebotomy for INR. I have requested outpt visit with cardiology in 1 week in anticipation of discharge this weekend or early next week to allow planning. Laboratory Results Last 24 Hours Test 01/14/17 16:13 01/14/17 20:01 01/15/17 06:04 01/15/17 06:27 Bedside Glucose 154 mg/dl 116 mg/dl 122 mg/dl White Blood Count 7.14 K/uL Red Blood Count 3.37 M/uL Hemoglobin 9.3 g/dL Hematocrit 29.2 % Mean Corpuscular Volume 86.6 fL Mean Corpuscular Hemoglobin 27.6 pg Mean Corpuscular Hemoglobin Concent 31.8 g/dl RDW Standard Deviation 53.6 fL RDW Coefficient of Variation 16.9 % Platelet Count 204 K/uL Mean Platelet Volume 9.9 fL Prothrombin Time 14.6 SECONDS Prothromb Time International Ratio 1.3 Activated Partial Thromboplast Time 64.7 SECONDS Partial Thromboplastin Ratio 2.5 Sodium Level 135 mmol/L Potassium Level 4.3 mmol/L Chloride Level 101 mmol/L Carbon Dioxide Level 24 mmol/L Anion Gap 10.0 mmol/L Blood Urea Nitrogen 32 mg/dl Creatinine 1.70 mg/dl Est Creatinine Clear Calc Drug Dose 42.4 ml/min Estimated GFR () 44.1 Estimated GFR (Non- 38.1 BUN/Creatinine Ratio 18.7 Random Glucose 112 mg/dl Calcium Level 8.4 mg/dl Test 01/15/17 11:12 Bedside Glucose 137 mg/dl
[2017-01-15] MEDS: WARFARIN SOD 7.5 MG TAB PO SCH (16:00)
--- NOTE | 2017-01-15 16:27 | Progress Note ---
Medicine Progress Note Date & Time of Visit: Jan 15, 2017 at 16:24. Subjective Patient seen and examined. Daughter present at bedside. Patient does not like hospital food. Objective Last 8 Hrs Date Time Temp Pulse Resp B/P Pulse Ox O2 Delivery O2 Flow Rate FiO2 01/15/17 15:40 36.3 67 18 136/87 94 Room Air 01/15/17 12:07 36.3 73 19 133/81 94 Room Air 01/15/17 12:01 Room Air Physical Exam: General-awake; alert; NAD Eyes-EOMI; no scleral icterus Neck-no stridor; trachea midline Lungs-CTA bilaterally; no wheezes/crackles Heart-irregularly irregular Abdomen-soft; NTND; nBS Extremities-1+ pitting edema of bilateral lower legs Neuro-no gross focal deficits Laboratory Results: Last 24 Hours Test 01/14/17 20:01 01/15/17 06:04 01/15/17 06:27 01/15/17 11:12 Bedside Glucose 116 mg/dl 122 mg/dl 137 mg/dl White Blood Count 7.14 K/uL Red Blood Count 3.37 M/uL Hemoglobin 9.3 g/dL Hematocrit 29.2 % Mean Corpuscular Volume 86.6 fL Mean Corpuscular Hemoglobin 27.6 pg Mean Corpuscular Hemoglobin Concent 31.8 g/dl RDW Standard Deviation 53.6 fL RDW Coefficient of Variation 16.9 % Platelet Count 204 K/uL Mean Platelet Volume 9.9 fL Prothrombin Time 14.6 SECONDS Prothromb Time International Ratio 1.3 Activated Partial Thromboplast Time 64.7 SECONDS Partial Thromboplastin Ratio 2.5 Sodium Level 135 mmol/L Potassium Level 4.3 mmol/L Chloride Level 101 mmol/L Carbon Dioxide Level 24 mmol/L Anion Gap 10.0 mmol/L Blood Urea Nitrogen 32 mg/dl Creatinine 1.70 mg/dl Est Creatinine Clear Calc Drug Dose 42.4 ml/min Estimated GFR () 44.1 Estimated GFR (Non- 38.1 BUN/Creatinine Ratio 18.7 Random Glucose 112 mg/dl Calcium Level 8.4 mg/dl Test 01/15/17 16:10 Bedside Glucose 110 mg/dl Assessment & Plan STEMI - presented with nausea, vomiting, diaphoresis, and firing of AICD; EKG on arrival showed ST elevation inferiorly - patient taken to cath labs had PTCA of proximal-mid RCA - per Dr. Arce - occlusion was more thromboembolic in nature - ? from left atria or left ventricle; patient has history of chronic a. 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 - EF 25-30% on echo 08/2015 - EF 20-25% this admission - continue beta bryan - hold melissa-i and furosemide given relative low-normal blood pressures and TOBIN ACUTE KIDNEY INJURY - likely ATN related to cardiac event - hold melissa-i and furosemide - downtrending CHRONIC ATRIAL FIBRILLATION - rate controlled on dig and beta bryan - continue both - continue heparin drip bridge to warfarin HX V-TACH S/P AICD DM - hgb a1c 5.6 10/2016 - hold metformin, utilize SSI while hospitalized HX CVA - on ASA/Plavix DVT PROPHYLAXIS - Heparin drip bridge to warfarin Anticipate discharge home with home health when INR is therapeutic. Consultants: Cardiology Procedures: [facility] Findings: left dominant circulation. Subtotal proximal RCA and total mid RCA. PTCA performed to the proximal and mid RCA. GILMAR 3 flow established into a high rising acute marginal ( long small - medium caliber vessel) and to mid-distal RCA ( gives rise to two small caliber RV branches). No underlying stenosis in proximal or mid RCA. Left coronary artery with no significant disease. Patent LAD stent. Patient developed respiratory depression after versed and fentanyl . Subsequent oxygen desaturation requiring patient to be receive oxygen by bag and mask. After Romazicon and naloxone he returned to baseline mental status and normal respirations. TTE * Compared to the prior study dated 08/27/15, there has been an interval decline in the biventricular systolic function. * Several biventricular systolic dysfunction is present. * The septal leaflet of the tricuspid valve is restricted by the AICD lead with resultant malcoaptation causing tricuspid regurgitation. * There is severe tricuspid regurgitation. * Severe pulmonary hypertension is likely present based on the 2D findings. * Dilated inferior vena cava with reduced collapsability with sniff indicates an elevated right atrial pressure of 15 mmHg Current Inpatient Medications: Current Inpatient Medications Medications (Trade) Dose Ordered Sig/Magaly Route Start Time Stop Time Status Last Admin Dose Admin Atropine Sulfate (Atropine Sulfate 0.1MG/Ml Inj) 0.5 mg ONE PRN IV 01/12/17 07:00 02/11/17 06:59 Aspirin (Ecotrin Tab) 81 mg QAM PO 01/12/17 09:00 02/11/17 08:59 01/15/17 07:33 81 MG Clopidogrel Bisulfate (plAVix TAB) 75 mg QAM PO 01/13/17 09:00 02/12/17 08:59 01/15/17 07:33 75 MG Acetaminophen (Tylenol Tab) 650 mg Q6H PRN PO 01/12/17 10:00 02/11/17 09:59 01/14/17 23:38 650 MG Cyanocobalamin (Vitamin B-12 Tab) 1,000 mcg DAILY PO 01/13/17 09:00 02/12/17 08:59 01/15/17 07:33 1,000 MCG Digoxin (Lanoxin Tab) 0.125 mg DAILY PO 01/13/17 09:00 02/12/17 08:59 01/15/17 07:34 0.125 MG Ferrous Gluconate (Ferrous Gluconate Tab) 324 mg BIDM PO 01/12/17 16:30 02/11/17 16:29 01/15/17 07:33 324 MG Furosemide (Lasix Tab) 20 mg DAILY PO 01/13/17 09:00 02/12/17 08:59 Future Hold 01/13/17 08:00 20 MG Pantoprazole Sodium (Protonix Tab) 40 mg DAILY PO 01/13/17 09:00 02/12/17 08:59 01/15/17 07:33 40 MG Rosuvastatin Calcium (Crestor Tab) 20 mg HS PO 01/12/17 21:00 02/11/17 20:59 01/14/17 20:40 20 MG Insulin Aspart (novoLOG ASPART) SLIDING SCALE If C... ACHS SC 01/12/17 11:00 02/11/17 10:59 01/15/17 07:00 3 UNITS Glucose (Glucose 40% Gel) 15-30 GRAMS 15 GRAMS... UD PRN PO 01/12/17 10:30 02/11/17 10:29 Glucose (Glucose Chew Tab) 4-8 Tablets 4 Tabl... UD PRN PO 01/12/17 10:30 02/11/17 10:29 Dextrose (Dextrose 50% 50ML Syringe) 25-50ML OF 50% DW IV FOR... UD PRN IV 01/12/17 10:30 02/11/17 10:29 Glucagon 1 mg 1 mg UD PRN SQ 01/12/17 10:30 02/11/17 10:29 Heparin Sodium/ Dextrose (Heparin 25,000 Unit/500ml D5W) 500 ml @ 20 mls/hr Q24H PRN IV 01/12/17 16:15 02/11/17 16:14 01/15/17 12:50 20 MLS/HR Warfarin Sodium (Coumadin Tab) 5 mg SuTuWeThSa@1600 PO 01/16/17 16:00 02/15/17 15:59 Warfarin Sodium (Coumadin Tab) 7.5 mg MoFr@1600 PO 01/15/17 16:00 02/14/17 15:59 Carvedilol (Coreg Tab) 6.25 mg BID PO 01/15/17 21:00 02/14/17 20:59
[2017-01-15 19:22] VITALS: BP 118/87; PULSE 66; TEMP 36.6; O2SAT 97
[2017-01-15] MEDS ORDERED: TRAMADOL HCL 50 MG TAB PO ONE (21:18)
[2017-01-15] MEDS: ROSUVASTATIN CALCIUM 20 MG TAB PO SCH (21:29)
[2017-01-15] MEDS ORDERED: TRAMADOL HCL 50 MG TAB PO PRN (21:30)
[2017-01-15] MEDS: CARVEDILOL 6.25 MG TAB PO SCH (21:31)
[2017-01-15 23:51] VITALS: BP 135/83; PULSE 86; TEMP 36.6; O2SAT 93
[2017-01-16] MEDS ORDERED: NURSING VERBAL MED ORDER ONE (00:30)
[2017-01-16] MEDS: ONDANSETRON INJ 2 MG/ML 2 ML VIAL IV PRN ×3 (00:44→16:15)
[2017-01-16 04:22] VITALS: BP 110/69; PULSE 91; TEMP 36.3; O2SAT 93
[2017-01-16] MEDS: INSULIN ASPART 100 UNITS/ML 3 ML PEN SC SCH ×4 (07:00→20:11)
[2017-01-16 07:03] LABS: HEMATOCRIT 28.8 % (42-52); MEAN CELL VOLUME 86.2 fL (80-100); MEAN CORPUSCULAR HEMOGLOBIN 27.2 pg (25-34); MEAN CORPUSCULAR HGB CONC 31.6 g/dl (32-36); MEAN PLATELET VOLUME 9.6 fL (7.4-10.4); PLATELET COUNT 191 K/uL (130-400); RED BLOOD COUNT 3.34 M/uL (4.7-6.1)
[2017-01-16 07:22] LABS: INR 1.4 (0.9-1.1); PARTIAL THROMBOPLASTIN RATIO 2.7; PROTHROMBIN TIME (PATIENT) 15.5 SECONDS (9.0-12.0)
[2017-01-16 07:31] LABS: BUN/CREATININE RATIO 18.1 (10-20); CALCIUM 8.7 mg/dl (8.5-10.1); CREATININE 1.5 mg/dl (0.60-1.40); MAGNESIUM 2.4 mg/dl (1.8-2.4); POTASSIUM 4.5 mmol/L (3.5-5.1)
[2017-01-16] MEDS: CYANOCOBALAMIN 500 MCG TAB (VIT B-12) PO SCH (07:45)
[2017-01-16] MEDS: CARVEDILOL 6.25 MG TAB PO SCH ×2 (07:45→20:11)
[2017-01-16] MEDS: PANTOprazole SOD 40 MG TAB PO SCH (07:45)
[2017-01-16] MEDS: DIGOXIN 0.125 MG TAB PO SCH (07:46)
[2017-01-16] MEDS: FERROUS GLUCONATE 324 MG TAB PO SCH ×2 (07:46→17:01)
[2017-01-16] MEDS: CLOPIDOGREL BISULFATE 75 MG TAB PO SCH (07:46)
[2017-01-16] MEDS: ASPIRIN 81 MG ECTAB PO SCH (07:46)
[2017-01-16] MEDS ORDERED: BISACODYL 10 MG SUPP PR PRN (08:15)
[2017-01-16 09:16] VITALS: BP 131/66; PULSE 82; TEMP 36.4; O2SAT 92
[2017-01-16] MEDS: METOCLOPRAMIDE HCL INJ 5 MG/ML 2 ML VIAL IV PRN ×2 (11:30→20:38)
[2017-01-16 12:03] VITALS: BP 136/79; PULSE 73; TEMP 36.3; O2SAT 92
[2017-01-16 12:29] LABS: CKMB/CK RATIO 5.9 (0-3.0)
--- NOTE | 2017-01-16 13:27 | PROGRESS NOTE ---
DATE: 01/16/2017 DATE: 01/16/2017. SUBJECTIVE: The patient is seen and examined at the bedside. He complained of nausea in the early a.m. hours. The patient was treated with Zofran and Reglan. Currently feeling better. Family voices concern regarding change in speech. He is awake and alert. Denies chest pain or shortness of breath. His nausea has resolved. No vomiting reported. He is tolerating clear liquids. Repeat ECGs demonstrates atrial fibrillation. No new ST changes. Family present at bedside. REVIEW OF SYSTEMS: The pertinent positive noted above. A 4-system review including cardiovascular, pulmonary, gastroenterologic, and musculoskeletal systems otherwise negative. MEDICATIONS: Reviewed via EMR. Please see list for details. LABORATORY DATA: Repeat troponin 16.70. His peak troponin was 76.8. His CK-MB is 8.2. His peak CK-MB was 383. White blood cell count 6.10, hemoglobin is 9.1, his platelet count is 191. INR is 1.4. PHYSICAL EXAMINATION: VITAL SIGNS: Temperature is 36.3 degrees centigrade, pulse is 73 beats per minute and irregular, respiratory rate is 18 breaths per minute, blood pressure 136/79, SAO2 is 92% on room air. GENERAL: NAD, awake, alert and oriented x3. HEAD, EYES, EARS, NOSE, AND THROAT: His mucous membranes are moist. There is no scleral icterus. Conjunctivae are pink. NECK: Supple. There is no JVD or HJR. No carotid bruits. HEART: Irregular with a normal S1 and S2. There is no murmur, rub or gallop. LUNGS: Demonstrate scant crackles at the right base, otherwise no rhonchi or wheeze. ABDOMEN: Soft and nontender. No rebound or guarding. EXTREMITIES: Warm and dry with trace pedal edema. NEUROLOGIC EXAMINATION: Demonstrates mild slurred speech. Otherwise, no focal deficit. Cranial nerves are otherwise grossly intact. FINAL IMPRESSION: 1. A 76-year-old male admitted with acute inferior wall ST elevation myocardial infarction, status post balloon angioplasty without stenting. Etiology likely cardioembolic phenomenon related to underlying atrial fibrillation and noncompliance with warfarin. The patient reports recurrent nausea this a.m. without vomiting. His symptoms have resolved. He is tolerating clear liquids. He has received antiemetic medication. 2. Chronic rate controlled atrial fibrillation with subtherapeutic INR. Heparin currently infusing. 3. Severe biventricular systolic dysfunction. 4. Severe tricuspid regurgitation secondary to automatic implantable cardioverter-defibrillator lead placement. 5. Status post ventricular fibrillation arrest status post ICD shocks (11 appropriate shocks recorded). PLAN AND RECOMMENDATIONS: The patient appears to be improving. No new ST elevations on ECG. I recommend continued conservative medical management. Case discussed with internal medicine. He has received antiemetic medications. Internal medicine will consider repeat CT of the head. I will repeat a limited bedside 2D echo to assess any changes at this time. Cardiac enzymes will be trended, however the initial repeat demonstrates significant decline in troponin as well as CK-MB compared to 01/12/2017. Other medications including Plavix, digoxin, rosuvastatin, and intravenous heparin in addition to aspirin will be continued. We will continue to follow closely.
--- NOTE | 2017-01-16 14:11 | DIAGNOSTIC IMAGING REPORT ---
ABDOMEN 2VIEW W/PA CHEST RTN CLINICAL HISTORY: Nausea and vomiting COMPARISON STUDY: 01/12/2017 FINDINGS: The heart remains enlarged. There is a left subclavian pacer/defibrillator present. There is persistent but improving mild pulmonary vascular congestion. There is no lobar consolidation. There is no free intraperitoneal air. IMPRESSION: Improving mild pulmonary vascular congestion. No evidence of focal pulmonary consolidation Electronically signed by: Keaton Cano M.D. 01/16/2017 2:10 PM Dictated Date/Time: 01/16/2017 2:09 PM
[2017-01-16] MEDS: HEPARIN 25,000 UNIT/500ML D5W 500 ML IV PRN (14:56)
[2017-01-16 15:49] VITALS: BP 128/67; PULSE 46; TEMP 36.3; O2SAT 98
[2017-01-16] MEDS: WARFARIN SOD 5 MG TAB PO SCH (16:00)
[2017-01-16] MEDS ORDERED: PERFLUTREN LIPID MICROSPHERE (DEFINITY) IV ONE (17:15)
--- NOTE | 2017-01-16 18:02 | ECHOCARDIOGRAM REPORT ---
*NOTICE TO RECEIVING REPUBLICAN AGENCY This information is strictly Confidential and protected under [place] law. [place] law prohibits you from making any further disclosure of this information unless further disclosure is expressly permitted by the written consent of the person to whom it pertains or is authorized by law. A general authorization for the release of medical or other information is not sufficient for this purpose. Hospital accepts no responsibility if the information is made available to any other person, INCLUDING THE PATIENT. Interpretation Summary * Name: GIDEON BO JR Study Date: 01/16/2017 05:03 PM * Patient Location: .2T\S\E219\S\1 HR: 94 * : 1940 (M/d/yyyy) Gender: Male Height: 70 in * Age: 76 yrs Ethnicity: [place] Weight: 209 lb * Ordering Physician: Jamie Garcia * Referring Physician: Self, Referred * Performed By: Candido Franklin RDCS * * Reason For Study: Assess LV and RV Fx * BSA: 2.1 m2 * The study was technically adequate. * Compared to prior study, changes are noted. * -- Conclusions -- * Left ventricular systolic function is moderately reduced. * Ejection Fraction = 30-35%. * The right ventricle is severely dilated. * The right ventricular systolic function is moderately reduced. * There is severe tricuspid regurgitation. * Flattened septum is consistent with RV pressure/volume overload. Procedure Details * A two-dimensional transthoracic echocardiogram with pulsed and continuous Doppler was performed. * The study was technically limited. * The study was technically difficult, but visualization was adequate with the administration of Definity ultrasound contrast. * A contrast injection of Definity was performed to improve assessment of LV function. * Contrast was injected into an intravenous site in the left arm. * One vial of Definity ultrasound contrast was diluted in normal saline to a total volume of 10 ml. A total of '3' ml of solution was administered during imaging. * Lot # [id number] of Definity utilized for procedure. * Expiration date . * The attending nurse who injected the contrast agent was CAROLINE Aranda. Left Ventricle * Left ventricular systolic function is moderately reduced. * Ejection Fraction = 30-35%. * Focal apical akinesis, otherwise moderate global hypokinesis. * Flattened septum is consistent with RV pressure/volume overload. Right Ventricle * The right ventricle is severely dilated. * There is a pacemaker lead in the right ventricle. * The right ventricular systolic function is moderately reduced. Mitral Valve * The mitral valve is not well visualized. * There is moderate mitral regurgitation. Tricuspid Valve * There is no tricuspid stenosis. * There is severe tricuspid regurgitation. Aortic Valve * The aortic valve is trileaflet. * Aortic valve sclerosis mild, without significant aortic valvular stenosis. MMode 2D Measurements and Calculations IVSd 1.2 cm IVSs 1.5 cm LVIDd 5.5 cm LVIDs 4.8 cm LVPWd 1.2 cm LVPWs 1.7 cm IVS/LVPW 1.0 FS 13.0 % EDV(Teich) 145.5 ml ESV(Teich) 105.3 ml EF(Teich) 27.6 % EDV(cubed) 163.6 ml ESV(cubed) 107.7 ml EF(cubed) 34.2 % % IVS thick 21.4 % % LVPW thick 39.3 % LV mass(C)d 280.2 grams LV mass(C)dI 131.8 grams/m\S\2 LV mass(C)s 332.7 grams LV mass(C)sI 156.4 grams/m\S\2 SV(Teich) 40.2 ml SI(Teich) 18.9 ml/m\S\2 SV(cubed) 55.9 ml SI(cubed) 26.3 ml/m\S\2 LA dimension 5.4 cm asc Aorta Diam 4.2 cm LVAd ap4 34.8 cm\S\2 LVLd ap4 8.6 cm EDV(MOD-sp4) 118.0 ml LVAs ap4 22.5 cm\S\2 LVLs ap4 7.5 cm ESV(MOD-sp4) 58.0 ml EF(MOD-sp4) 50.8 % LVAd ap2 37.6 cm\S\2 LVLd ap2 8.5 cm EDV(MOD-sp2) 136.0 ml LVAs ap2 25.7 cm\S\2 LVLs ap2 7.1 cm ESV(MOD-sp2) 76.0 ml EF(MOD-sp2) 44.1 % SV(MOD-sp4) 60.0 ml SI(MOD-sp4) 28.2 ml/m\S\2 SV(MOD-sp2) 60.0 ml SI(MOD-sp2) 28.2 ml/m\S\2 Doppler Measurements and Calculations PA V2 max 82.5 cm/sec PA max PG 2.7 mmHg PI end-d patrick 86.0 cm/sec TR max patrick 223.3 cm/sec
[2017-01-16] MEDS ORDERED: TROLAMINE SALICYLATE 10% CRM 255 APPLN/85 GM TUBE EXT PRN (19:15)
[2017-01-16 19:40] VITALS: BP 138/87; PULSE 76; TEMP 36.5; O2SAT 96
[2017-01-16] MEDS: ROSUVASTATIN CALCIUM 20 MG TAB PO SCH (20:11)
--- NOTE | 2017-01-16 20:14 | Progress Note ---
Medicine Progress Note Date & Time of Visit: Jan 16, 2017 at 20:11. Subjective Patient seen and examined. Nauseated with dry heaves this morning. Denies any pain. Passing gas. Last BM was 2 days ago per patient. Objective Last 8 Hrs Date Time Temp Pulse Resp B/P Pulse Ox O2 Delivery O2 Flow Rate FiO2 01/16/17 19:40 36.5 76 18 138/87 96 Room Air 01/16/17 16:03 Room Air 01/16/17 15:49 36.3 46 16 128/67 98 Nasal Cannula 2.0 Physical Exam: General-awake; alert; NAD Eyes-EOMI; no scleral icterus Neck-no stridor; trachea midline Lungs-CTA bilaterally; no wheezes/crackles Heart-irregularly irregular Abdomen-soft; NTND; nBS Extremities-1+ pitting edema of bilateral lower legs Neuro-no gross focal deficits Laboratory Results: Last 24 Hours Test 01/15/17 20:28 01/16/17 06:24 01/16/17 06:56 01/16/17 11:06 Bedside Glucose 139 mg/dl 124 mg/dl 142 mg/dl White Blood Count 6.10 K/uL Red Blood Count 3.34 M/uL Hemoglobin 9.1 g/dL Hematocrit 28.8 % Mean Corpuscular Volume 86.2 fL Mean Corpuscular Hemoglobin 27.2 pg Mean Corpuscular Hemoglobin Concent 31.6 g/dl RDW Standard Deviation 53.7 fL RDW Coefficient of Variation 16.9 % Platelet Count 191 K/uL Mean Platelet Volume 9.6 fL Prothrombin Time 15.5 SECONDS Prothromb Time International Ratio 1.4 Activated Partial Thromboplast Time 71.4 SECONDS Partial Thromboplastin Ratio 2.7 Sodium Level 139 mmol/L Potassium Level 4.5 mmol/L Chloride Level 105 mmol/L Carbon Dioxide Level 25 mmol/L Anion Gap 9.0 mmol/L Blood Urea Nitrogen 27 mg/dl Creatinine 1.50 mg/dl Est Creatinine Clear Calc Drug Dose 48.2 ml/min Estimated GFR () 51.3 Estimated GFR (Non- 44.3 BUN/Creatinine Ratio 18.1 Random Glucose 115 mg/dl Calcium Level 8.7 mg/dl Magnesium Level 2.4 mg/dl Total Creatine Kinase 138 U/L Creatine Kinase MB 8.2 ng/ml Creatine Kinase MB Ratio 5.9 Troponin I 16.700 ng/ml Test 01/16/17 11:46 01/16/17 13:40 01/16/17 15:56 Creatine Kinase MB Ratio Activated Partial Thromboplast Time 52.3 SECONDS Partial Thromboplastin Ratio 2.0 Bedside Glucose 144 mg/dl Assessment & Plan NAUSEA - EKG today unchanged from previous; no acute ischemic changes - troponin downtrending from previous STEMI - abdominal xray negative for obstruction - no focal neurologic deficits on exam - continue anti-emetics STEMI - presented with nausea, vomiting, diaphoresis, and firing of AICD; EKG on arrival showed ST elevation inferiorly - patient taken to cath labs had PTCA of proximal-mid RCA - per Dr. Arce - occlusion was more thromboembolic in nature - ? from left atria or left ventricle; patient has history of chronic a. fib and cardiomyopathy (EF 25-30%) and noted to have subtherapeutic INR on admission - Integrilin transitioned to IV Heparin - on ASA, Plavix, beta bryan, and statin CHRONIC SYSTOLIC CHF 2/2 ISCHEMIC CARDIOMYOPATHY - EF 25-30% on echo 08/2015 - EF 20-25% this admission - continue beta bryan - hold melissa-i and furosemide given relative low-normal blood pressures and TOBIN ACUTE KIDNEY INJURY - likely ATN related to cardiac event - hold melissa-i and furosemide - downtrending CHRONIC ATRIAL FIBRILLATION - rate controlled on dig and beta bryan - continue both - continue heparin drip bridge to warfarin HX V-TACH S/P AICD DM - hgb a1c 5.6 10/2016 - hold metformin, utilize SSI while hospitalized HX CVA - on ASA/Plavix DVT PROPHYLAXIS - Heparin drip bridge to warfarin Anticipate discharge home with home health when INR is therapeutic. Discharge planning: home with home health Consultants: Cardiology Procedures: [facility] Findings: left dominant circulation. Subtotal proximal RCA and total mid RCA. PTCA performed to the proximal and mid RCA. GILMAR 3 flow established into a high rising acute marginal ( long small - medium caliber vessel) and to mid-distal RCA ( gives rise to two small caliber RV branches). No underlying stenosis in proximal or mid RCA. Left coronary artery with no significant disease. Patent LAD stent. Patient developed respiratory depression after versed and fentanyl . Subsequent oxygen desaturation requiring patient to be receive oxygen by bag and mask. After Romazicon and naloxone he returned to baseline mental status and normal respirations. TTE * Compared to the prior study dated 08/27/15, there has been an interval decline in the biventricular systolic function. * Several biventricular systolic dysfunction is present. * The septal leaflet of the tricuspid valve is restricted by the AICD lead with resultant malcoaptation causing tricuspid regurgitation. * There is severe tricuspid regurgitation. * Severe pulmonary hypertension is likely present based on the 2D findings. * Dilated inferior vena cava with reduced collapsability with sniff indicates an elevated right atrial pressure of 15 mmHg Current Inpatient Medications: Current Inpatient Medications Medications (Trade) Dose Ordered Sig/Magaly Route Start Time Stop Time Status Last Admin Dose Admin Atropine Sulfate (Atropine Sulfate 0.1MG/Ml Inj) 0.5 mg ONE PRN IV 01/12/17 07:00 02/11/17 06:59 Aspirin (Ecotrin Tab) 81 mg QAM PO 01/12/17 09:00 02/11/17 08:59 01/16/17 07:46 81 MG Clopidogrel Bisulfate (plAVix TAB) 75 mg QAM PO 01/13/17 09:00 02/12/17 08:59 01/16/17 07:46 75 MG Acetaminophen (Tylenol Tab) 650 mg Q6H PRN PO 01/12/17 10:00 02/11/17 09:59 01/14/17 23:38 650 MG Cyanocobalamin (Vitamin B-12 Tab) 1,000 mcg DAILY PO 01/13/17 09:00 02/12/17 08:59 01/16/17 07:45 1,000 MCG Digoxin (Lanoxin Tab) 0.125 mg DAILY PO 01/13/17 09:00 02/12/17 08:59 01/16/17 07:46 0.125 MG Ferrous Gluconate (Ferrous Gluconate Tab) 324 mg BIDM PO 01/12/17 16:30 02/11/17 16:29 01/16/17 17:01 324 MG Furosemide (Lasix Tab) 20 mg DAILY PO 01/13/17 09:00 02/12/17 08:59 Future Hold 01/13/17 08:00 20 MG Pantoprazole Sodium (Protonix Tab) 40 mg DAILY PO 01/13/17 09:00 02/12/17 08:59 01/16/17 07:45 40 MG Rosuvastatin Calcium (Crestor Tab) 20 mg HS PO 01/12/17 21:00 02/11/17 20:59 01/15/17 21:29 20 MG Insulin Aspart (novoLOG ASPART) SLIDING SCALE If C... ACHS SC 01/12/17 11:00 02/11/17 10:59 01/15/17 07:00 3 UNITS Glucose (Glucose 40% Gel) 15-30 GRAMS 15 GRAMS... UD PRN PO 01/12/17 10:30 02/11/17 10:29 Glucose (Glucose Chew Tab) 4-8 Tablets 4 Tabl... UD PRN PO 01/12/17 10:30 02/11/17 10:29 Dextrose (Dextrose 50% 50ML Syringe) 25-50ML OF 50% DW IV FOR... UD PRN IV 01/12/17 10:30 02/11/17 10:29 Glucagon 1 mg 1 mg UD PRN SQ 01/12/17 10:30 02/11/17 10:29 Heparin Sodium/ Dextrose (Heparin 25,000 Unit/500ml D5W) 500 ml @ 18 mls/hr Q24H PRN IV 01/12/17 16:15 02/11/17 16:14 01/16/17 14:56 18 MLS/HR Warfarin Sodium (Coumadin Tab) 5 mg SuTuWeThSa@1600 PO 01/16/17 16:00 02/15/17 15:59 01/16/17 16:00 5 MG Warfarin Sodium (Coumadin Tab) 7.5 mg MoFr@1600 PO 01/15/17 16:00 02/14/17 15:59 01/15/17 16:00 7.5 MG Carvedilol (Coreg Tab) 6.25 mg BID PO 01/15/17 21:00 02/14/17 20:59 01/16/17 07:45 6.25 MG Tramadol HCl (Ultram Tab) 50 mg Q6H PRN PO 01/15/17 21:30 02/14/17 21:29 Ondansetron HCl (Zofran Inj) 4 mg Q8H PRN IV 01/16/17 00:45 02/15/17 00:44 01/16/17 16:15 4 MG Metoclopramide HCl (Reglan Inj) 5 mg Q6H PRN IV 01/16/17 08:15 02/15/17 08:14 01/16/17 11:30 5 MG Bisacodyl (Dulcolax Supp) 10 mg DAILY PRN [place] 01/16/17 08:15 02/15/17 08:14 Trolamine Salicylate (Myoflex Cream) 1 appln Q6 PRN EXT 01/16/17 19:15 02/15/17 19:14
[2017-01-16 23:38] VITALS: BP 122/71; PULSE 79; TEMP 36.6; O2SAT 93
[2017-01-17 04:06] VITALS: BP 120/66; PULSE 80; TEMP 36.4; O2SAT 99
[2017-01-17 06:52] LABS: HEMATOCRIT 27.9 % (42-52); MEAN CELL VOLUME 86.6 fL (80-100); MEAN CORPUSCULAR HEMOGLOBIN 27.3 pg (25-34); MEAN CORPUSCULAR HGB CONC 31.5 g/dl (32-36); MEAN PLATELET VOLUME 9.3 fL (7.4-10.4); PLATELET COUNT 187 K/uL (130-400); RED BLOOD COUNT 3.22 M/uL (4.7-6.1); WHITE BLOOD COUNT 5.73 K/uL (4.8-10.8)
[2017-01-17] MEDS: INSULIN ASPART 100 UNITS/ML 3 ML PEN SC SCH ×4 (07:00→21:00)
[2017-01-17 07:13] VITALS: BP 125/66; PULSE 84; TEMP 36.4; O2SAT 97
[2017-01-17 07:15] LABS: INR 1.8 (0.9-1.1); PARTIAL THROMBOPLASTIN RATIO 2.7; PROTHROMBIN TIME (PATIENT) 19.9 SECONDS (9.0-12.0)
[2017-01-17 07:27] LABS: BUN/CREATININE RATIO 18.2 (10-20); CALCIUM 8.9 mg/dl (8.5-10.1); CREATININE 1.3 mg/dl (0.60-1.40); MAGNESIUM 2.3 mg/dl (1.8-2.4); POTASSIUM 4.1 mmol/L (3.5-5.1)
[2017-01-17] MEDS: CYANOCOBALAMIN 500 MCG TAB (VIT B-12) PO SCH (08:05)
[2017-01-17] MEDS: FERROUS GLUCONATE 324 MG TAB PO SCH ×2 (08:05→15:46)
[2017-01-17] MEDS: CLOPIDOGREL BISULFATE 75 MG TAB PO SCH (08:05)
[2017-01-17] MEDS: CARVEDILOL 6.25 MG TAB PO SCH ×2 (08:05→22:12)
[2017-01-17] MEDS: PANTOprazole SOD 40 MG TAB PO SCH (08:06)
[2017-01-17] MEDS: DIGOXIN 0.125 MG TAB PO SCH (08:06)
[2017-01-17] MEDS: ASPIRIN 81 MG ECTAB PO SCH (09:15)
[2017-01-17] MEDS: POLYETHYLENE (MIRALAX) 17 GM PACK PO PRN (09:30)
--- NOTE | 2017-01-17 10:00 | Cardiology Follow-Up ---
Subjective General Date of Service: Jan 17, 2017. Chief Complaint: follow up NE, VF, AICD discharges Pt evaluation today including: conversation w/ patient, conversation w/ family , physical exam, chart review, lab review, review of studies, review of inpatient medication list History of Present Illness The patient is a 76 year old male seen in follow-up. Feeling much better today. No recurrent nausea or dry heaves. Patient consumed nearly 75% of his a.m. meal. Denies chest discomfort or shortness of breath. 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 Patient previously scheduled for laser excision next week. Lasix on hold since January 13 with worsening edema on exam. Patient denies orthopnea or paroxysmal nocturnal dyspnea. Allergies Coded Allergies: BRIANA Inhibitors (Verified Allergy, Unknown, cough, 01/12/17) Cefuroxime (Verified Allergy, Unknown, GI SYMPTOMS, 01/12/17) Codeine (Verified Allergy, Unknown, GI SYMPTOMS, 01/12/17) Social History Smoking Status: Never Smoker Hx Tobacco Use In Past Year?: Yes (chewing tobacco everyday) Hx Alcohol Use - Type And Amou: No Hx Substance Use - Type And Am: No Review of Systems Respiratory: + dyspnea on exertion, No cough, No dyspnea at rest, No hemoptysis , No shortness of breath, No sputum, No wheezing Cardiac: + edema, No PND, No chest pain, No claudication, No orthopnea, No palpitations Physical Exam Vital Signs Last Vital Signs Documentation Date Time Temp Pulse Resp B/P Pulse Ox O2 Delivery O2 Flow Rate FiO2 01/17/17 08:06 72 01/17/17 08:05 Room Air 01/17/17 07:13 36.4 18 125/66 97 2.0 01/12/17 06:42 100 Physical Exam Constitutional: Level of Distress: NAD, chronically ill ENMT: normal ENT inspection Neck: supple Lungs: Auscultation: no wheezing, no rhonchi, rales/crackles on the left, rales/ crackles on the right Cardiovascular: Heart Auscultation: II/ LAURA, irregular rate rhythm Peripheral Pulses: Carotid Pulse: normal on the left, normal on the right Radial Pulse: normal on the left, normal on the right Abdomen: Inspection & Palpation: soft, non-distended Extremities: no cyanosis, pertinent finding (2+ biltatera LE edema) Neurologic: Gait & Station: pertinent finding (no focal deficits ) Assessment and Plan Assessment and Plan FINAL IMPRESSION: 1. A 76-year-old male admitted with acute inferior wall ST elevation myocardial infarction, status post balloon angioplasty without stenting. Etiology likely cardioembolic phenomenon related to underlying atrial fibrillation and noncompliance with warfarin. - INR subtherapeutic 3. Acute on chronic decompensated heart failure secondary to severe biventricular systolic dysfunction. -Diuretics on hold since 01/13 due to azotemia -Repeat limited echo performed yesterday demonstrates mild improvement in biventricular systolic function 4. Severe tricuspid regurgitation secondary to automatic implantable cardioverter-defibrillator lead placement. 5. Status post ventricular fibrillation arrest status post ICD shocks (11 appropriate shocks recorded). PLAN AND RECOMMENDATIONS: Will give patient 40 mg of intravenous Lasix today. Plan to restart oral Lasix tomorrow. Continue other cardiovascular medications as noted in the EMR. Intravenous heparin infusion will be continued until INR is greater than or equal to 2.0. Patient instructed to postpone his upcoming dermatologic procedure for a minimum of 6 weeks post myocardial infarction. We'll continue to follow during hospitalization. Laboratory Results Last 24 Hours Test 01/16/17 11:06 01/16/17 11:46 01/16/17 13:40 01/16/17 15:56 Bedside Glucose 142 mg/dl 144 mg/dl Creatine Kinase MB Ratio Activated Partial Thromboplast Time 52.3 SECONDS Partial Thromboplastin Ratio 2.0 Test 01/16/17 20:04 01/17/17 06:34 01/17/17 06:40 Bedside Glucose 155 mg/dl 122 mg/dl White Blood Count 5.73 K/uL Red Blood Count 3.22 M/uL Hemoglobin 8.8 g/dL Hematocrit 27.9 % Mean Corpuscular Volume 86.6 fL Mean Corpuscular Hemoglobin 27.3 pg Mean Corpuscular Hemoglobin Concent 31.5 g/dl RDW Standard Deviation 53.3 fL RDW Coefficient of Variation 16.6 % Platelet Count 187 K/uL Mean Platelet Volume 9.3 fL Prothrombin Time 19.9 SECONDS Prothromb Time International Ratio 1.8 Activated Partial Thromboplast Time 69.2 SECONDS Partial Thromboplastin Ratio 2.7 Sodium Level 140 mmol/L Potassium Level 4.1 mmol/L Chloride Level 105 mmol/L Carbon Dioxide Level 26 mmol/L Anion Gap 9.0 mmol/L Blood Urea Nitrogen 24 mg/dl Creatinine 1.30 mg/dl Est Creatinine Clear Calc Drug Dose 55.2 ml/min Estimated GFR () 61.0 Estimated GFR (Non- 52.6 BUN/Creatinine Ratio 18.2 Random Glucose 109 mg/dl Calcium Level 8.9 mg/dl Magnesium Level 2.3 mg/dl
[2017-01-17] MEDS ORDERED: FUROSEMIDE INJ 40 MG in SYRINGE 0 ML IV ONE (10:30)
[2017-01-17 11:35] VITALS: BP 129/70; PULSE 75; TEMP 36.3; O2SAT 93
[2017-01-17 14:55] VITALS: BP 156/73; PULSE 94; TEMP 36.4; O2SAT 97
[2017-01-17] MEDS: WARFARIN SOD 5 MG TAB PO SCH (15:46)
--- NOTE | 2017-01-17 17:03 | Progress Note ---
Medicine Progress Note Date & Time of Visit: Jan 17, 2017 at 17:00. Subjective Patient seen and examined. Nausea resolved yesterday. Tolerating diet today. Excited to watch the driving race this afternoon. Anticipating discharge. Objective Last 8 Hrs Date Time Temp Pulse Resp B/P Pulse Ox O2 Delivery O2 Flow Rate FiO2 01/17/17 16:02 Room Air 01/17/17 14:55 36.4 94 18 156/73 97 Room Air 01/17/17 12:01 Room Air 01/17/17 11:35 36.3 75 18 129/70 93 Room Air Physical Exam: General-awake; alert; NAD Eyes-EOMI; no scleral icterus Neck-no stridor; trachea midline Lungs-CTA bilaterally; no wheezes/crackles Heart-irregularly irregular Abdomen-soft; NTND; nBS Extremities-1+ pitting edema of bilateral lower legs Neuro-no gross focal deficits Laboratory Results: Last 24 Hours Test 01/16/17 20:04 01/17/17 06:34 01/17/17 06:40 01/17/17 11:28 Bedside Glucose 155 mg/dl 122 mg/dl 152 mg/dl White Blood Count 5.73 K/uL Red Blood Count 3.22 M/uL Hemoglobin 8.8 g/dL Hematocrit 27.9 % Mean Corpuscular Volume 86.6 fL Mean Corpuscular Hemoglobin 27.3 pg Mean Corpuscular Hemoglobin Concent 31.5 g/dl RDW Standard Deviation 53.3 fL RDW Coefficient of Variation 16.6 % Platelet Count 187 K/uL Mean Platelet Volume 9.3 fL Prothrombin Time 19.9 SECONDS Prothromb Time International Ratio 1.8 Activated Partial Thromboplast Time 69.2 SECONDS Partial Thromboplastin Ratio 2.7 Sodium Level 140 mmol/L Potassium Level 4.1 mmol/L Chloride Level 105 mmol/L Carbon Dioxide Level 26 mmol/L Anion Gap 9.0 mmol/L Blood Urea Nitrogen 24 mg/dl Creatinine 1.30 mg/dl Est Creatinine Clear Calc Drug Dose 55.2 ml/min Estimated GFR () 61.0 Estimated GFR (Non- 52.6 BUN/Creatinine Ratio 18.2 Random Glucose 109 mg/dl Calcium Level 8.9 mg/dl Magnesium Level 2.3 mg/dl Test 01/17/17 15:55 Bedside Glucose 133 mg/dl Assessment & Plan NAUSEA - EKG unchanged from previous; no acute ischemic changes - troponin downtrending from previous STEMI - abdominal xray negative for obstruction - no focal neurologic deficits on exam - continue anti-emetics PRN - resolved STEMI - presented with nausea, vomiting, diaphoresis, and firing of AICD; EKG on arrival showed ST elevation inferiorly - patient taken to cath labs had PTCA of proximal-mid RCA - per Dr. Arce - occlusion was more thromboembolic in nature - ? from left atria or left ventricle; patient has history of chronic a. fib and cardiomyopathy (EF 25-30%) and noted to have subtherapeutic INR on admission - Integrilin transitioned to IV Heparin - on ASA, Plavix, beta bryan, and statin CHRONIC SYSTOLIC CHF 2/2 ISCHEMIC CARDIOMYOPATHY - EF 25-30% on echo 08/2015 - EF 20-25% this admission - continue beta bryan - resume furosemide and low dose melissa-i ACUTE KIDNEY INJURY - likely ATN related to cardiac event - held melissa-i and furosemide - resolved CHRONIC ATRIAL FIBRILLATION - rate controlled on dig and beta bryan - continue both - continue heparin drip bridge to warfarin HX V-TACH S/P AICD DM - hgb a1c 5.6 10/2016 - hold metformin, utilize SSI while hospitalized HX CVA - on ASA/Plavix DVT PROPHYLAXIS - Heparin drip bridge to warfarin Anticipate discharge home with home health when INR is therapeutic. Discharge planning: home with home health Consultants: Cardiology Procedures: [facility] Findings: left dominant circulation. Subtotal proximal RCA and total mid RCA. PTCA performed to the proximal and mid RCA. GILMAR 3 flow established into a high rising acute marginal ( long small - medium caliber vessel) and to mid-distal RCA ( gives rise to two small caliber RV branches). No underlying stenosis in proximal or mid RCA. Left coronary artery with no significant disease. Patent LAD stent. Patient developed respiratory depression after versed and fentanyl . Subsequent oxygen desaturation requiring patient to be receive oxygen by bag and mask. After Romazicon and naloxone he returned to baseline mental status and normal respirations. TTE * Compared to the prior study dated 08/27/15, there has been an interval decline in the biventricular systolic function. * Several biventricular systolic dysfunction is present. * The septal leaflet of the tricuspid valve is restricted by the AICD lead with resultant malcoaptation causing tricuspid regurgitation. * There is severe tricuspid regurgitation. * Severe pulmonary hypertension is likely present based on the 2D findings. * Dilated inferior vena cava with reduced collapsability with sniff indicates an elevated right atrial pressure of 15 mmHg Current Inpatient Medications: Current Inpatient Medications Medications (Trade) Dose Ordered Sig/Magaly Route Start Time Stop Time Status Last Admin Dose Admin Atropine Sulfate (Atropine Sulfate 0.1MG/Ml Inj) 0.5 mg ONE PRN IV 01/12/17 07:00 02/11/17 06:59 Aspirin (Ecotrin Tab) 81 mg QAM PO 01/12/17 09:00 02/11/17 08:59 01/17/17 09:15 81 MG Clopidogrel Bisulfate (plAVix TAB) 75 mg QAM PO 01/13/17 09:00 02/12/17 08:59 01/17/17 08:05 75 MG Acetaminophen (Tylenol Tab) 650 mg Q6H PRN PO 01/12/17 10:00 02/11/17 09:59 01/14/17 23:38 650 MG Cyanocobalamin (Vitamin B-12 Tab) 1,000 mcg DAILY PO 01/13/17 09:00 02/12/17 08:59 01/17/17 08:05 1,000 MCG Digoxin (Lanoxin Tab) 0.125 mg DAILY PO 01/13/17 09:00 02/12/17 08:59 01/17/17 08:06 0.125 MG Ferrous Gluconate (Ferrous Gluconate Tab) 324 mg BIDM PO 01/12/17 16:30 02/11/17 16:29 01/17/17 15:46 324 MG Furosemide (Lasix Tab) 20 mg DAILY PO 01/13/17 09:00 02/12/17 08:59 Future Hold 01/13/17 08:00 20 MG Pantoprazole Sodium (Protonix Tab) 40 mg DAILY PO 01/13/17 09:00 02/12/17 08:59 01/17/17 08:06 40 MG Rosuvastatin Calcium (Crestor Tab) 20 mg HS PO 01/12/17 21:00 02/11/17 20:59 01/16/17 20:11 20 MG Insulin Aspart (novoLOG ASPART) SLIDING SCALE If C... ACHS SC 01/12/17 11:00 02/11/17 10:59 01/15/17 07:00 3 UNITS Glucose (Glucose 40% Gel) 15-30 GRAMS 15 GRAMS... UD PRN PO 01/12/17 10:30 02/11/17 10:29 Glucose (Glucose Chew Tab) 4-8 Tablets 4 Tabl... UD PRN PO 01/12/17 10:30 02/11/17 10:29 Dextrose (Dextrose 50% 50ML Syringe) 25-50ML OF 50% DW IV FOR... UD PRN IV 01/12/17 10:30 02/11/17 10:29 Glucagon 1 mg 1 mg UD PRN SQ 01/12/17 10:30 02/11/17 10:29 Heparin Sodium/ Dextrose (Heparin 25,000 Unit/500ml D5W) 500 ml @ 18 mls/hr Q24H PRN IV 01/12/17 16:15 02/11/17 16:14 01/16/17 14:56 18 MLS/HR Warfarin Sodium (Coumadin Tab) 5 mg SuTuWeThSa@1600 PO 01/16/17 16:00 02/15/17 15:59 01/17/17 15:46 5 MG Warfarin Sodium (Coumadin Tab) 7.5 mg MoFr@1600 PO 01/15/17 16:00 02/14/17 15:59 01/15/17 16:00 7.5 MG Carvedilol (Coreg Tab) 6.25 mg BID PO 01/15/17 21:00 02/14/17 20:59 01/17/17 08:05 6.25 MG Tramadol HCl (Ultram Tab) 50 mg Q6H PRN PO 01/15/17 21:30 02/14/17 21:29 Ondansetron HCl (Zofran Inj) 4 mg Q8H PRN IV 01/16/17 00:45 02/15/17 00:44 01/16/17 16:15 4 MG Metoclopramide HCl (Reglan Inj) 5 mg Q6H PRN IV 01/16/17 08:15 02/15/17 08:14 01/16/17 20:38 5 MG Bisacodyl (Dulcolax Supp) 10 mg DAILY PRN [place] 01/16/17 08:15 02/15/17 08:14 Trolamine Salicylate (Myoflex Cream) 1 appln Q6 PRN EXT 01/16/17 19:15 02/15/17 19:14 01/17/17 00:29 1 APPLN Polyethylene (Miralax Powder Packet) 17 gm DAILY PRN PO 01/17/17 08:30 02/16/17 08:29 01/17/17 09:30 17 GM Docusate Sodium (coLACE CAP) 100 mg BID PO 01/17/17 21:00 02/16/17 20:59
[2017-01-17] MEDS: HEPARIN 25,000 UNIT/500ML D5W 500 ML IV PRN (19:03)
[2017-01-17 19:13] VITALS: BP 139/98; PULSE 107; TEMP 36.6; O2SAT 95
[2017-01-17] MEDS: ROSUVASTATIN CALCIUM 20 MG TAB PO SCH (22:11)
[2017-01-17] MEDS: DOCUSATE SODIUM 100 MG CAP PO SCH (22:12)
[2017-01-17 23:09] VITALS: BP 165/79; PULSE 103; TEMP 36.9; O2SAT 95
[2017-01-18] VITALS (8 sets, daily range): BP systolic 104–157; BP diastolic 60–77; PULSE 69–93; TEMP 36.2–36.9; O2SAT 91–96
[2017-01-18 06:30] LABS: HEMATOCRIT 27.9 % (42-52); MEAN CELL VOLUME 88.9 fL (80-100); MEAN CORPUSCULAR HEMOGLOBIN 27.4 pg (25-34); MEAN CORPUSCULAR HGB CONC 30.8 g/dl (32-36); MEAN PLATELET VOLUME 9.4 fL (7.4-10.4); PLATELET COUNT 176 K/uL (130-400); RED BLOOD COUNT 3.14 M/uL (4.7-6.1); WHITE BLOOD COUNT 5.47 K/uL (4.8-10.8)
[2017-01-18 06:53] LABS: INR 2.1 (0.9-1.1); PARTIAL THROMBOPLASTIN RATIO 2.5; PROTHROMBIN TIME (PATIENT) 23.4 SECONDS (9.0-12.0)
[2017-01-18 07:03] LABS: CALCIUM 8.8 mg/dl (8.5-10.1); CREATININE 1.5 mg/dl (0.60-1.40); MAGNESIUM 2.1 mg/dl (1.8-2.4); POTASSIUM 3.9 mmol/L (3.5-5.1)
[2017-01-18] MEDS: INSULIN ASPART 100 UNITS/ML 3 ML PEN SC SCH ×4 (07:43→20:03)
[2017-01-18] MEDS: FERROUS GLUCONATE 324 MG TAB PO SCH ×2 (07:45→16:08)
[2017-01-18] MEDS: ASPIRIN 81 MG ECTAB PO SCH (07:45)
[2017-01-18] MEDS: PANTOprazole SOD 40 MG TAB PO SCH (07:45)
[2017-01-18] MEDS: CLOPIDOGREL BISULFATE 75 MG TAB PO SCH (07:45)
[2017-01-18] MEDS: CYANOCOBALAMIN 500 MCG TAB (VIT B-12) PO SCH (07:45)
[2017-01-18] MEDS: CARVEDILOL 6.25 MG TAB PO SCH ×2 (07:45→20:02)
[2017-01-18] MEDS: DIGOXIN 0.125 MG TAB PO SCH (07:46)
[2017-01-18] MEDS: DOCUSATE SODIUM 100 MG CAP PO SCH ×2 (08:21→20:02)
[2017-01-18] MEDS ORDERED: LISINOPRIL 10 MG TAB PO SCH (09:00)
[2017-01-18] MEDS: FUROSEMIDE 20 MG TAB PO SCH (10:22)
--- NOTE | 2017-01-18 12:26 | Cardiology Follow-Up ---
Subjective General Date of Service: Jan 18, 2017. Chief Complaint: follow up [place], VF, AICD discharges Pt evaluation today including: conversation w/ patient, physical exam, chart review, lab review, review of studies, review of inpatient medication list History of Present Illness Patient feeling ok this AM. Notes becoming nauseous after AM pills. No vomiting. No chest pain or SOB. No sense of palpitations or tachypalpitations. Edema at baseline No orthopnea, PND Allergies Coded Allergies: Codeine (Verified Allergy, Unknown, GI SYMPTOMS, 01/12/17) BRIANA Inhibitors (Verified Adverse Reaction, Mild, cough,TAKES BENAZEPRIL PER MED REC, 01/17/17) Cefuroxime (Verified Adverse Reaction, Mild, GI SYMPTOMS, 01/17/17) Social History Smoking Status: Never Smoker Hx Tobacco Use In Past Year?: Yes (chewing tobacco everyday) Hx Alcohol Use - Type And Amou: No Hx Substance Use - Type And Am: No Review of Systems Respiratory: No cough, No dyspnea at rest, No dyspnea on exertion, No hemoptysis, No shortness of breath, No sputum, No wheezing Cardiac: No PND, No chest pain, No edema, No orthopnea, No palpitations Physical Exam Vital Signs Last Vital Signs Documentation Date Time Temp Pulse Resp B/P Pulse Ox O2 Delivery O2 Flow Rate FiO2 01/18/17 08:00 Room Air 01/18/17 07:46 68 01/18/17 07:20 36.4 19 111/60 91 01/17/17 07:13 2.0 01/12/17 06:42 100 Physical Exam Constitutional: Level of Distress: NAD, chronically ill Psychiatric: Mental Status: active & alert Orientation: to time, to place, to person ENMT: normal ENT inspection Neck: supple Lungs: Auscultation: no wheezing, no rhonchi, rales/crackles on the left, rales/ crackles on the right Cardiovascular: Heart Auscultation: II/ LAURA, irregular rate rhythm Peripheral Pulses: Carotid Pulse: normal on the left, normal on the right Radial Pulse: normal on the left, normal on the right Abdomen: Inspection & Palpation: soft, non-distended Extremities: no cyanosis, pertinent finding (2+ biltatera LE edema) Neurologic: Gait & Station: pertinent finding (no focal deficits ) Assessment and Plan Assessment and Plan Assessment and Plan: 76 year old male 1. S/P acute inferior wall ST elevation myocardial infarction, status post balloon angioplasty without stenting. Etiology likely cardioembolic phenomenon related to underlying atrial fibrillation and noncompliance with warfarin. 2. anemia - no evidence of acute GI bleed per patient -hbg trending down on ASA, Plavix, IV hep and coumadin -INR > 2. Discontinue IV heparin and monitor -after discussion with Dr. Garcia - hold ASA. Continue plavix and coumadin for now. 3. Acute on chronic decompensated heart failure secondary to severe biventricular systolic dysfunction. -Diuretics had been on hold since 01/13 due to azotemia -Resumed oral furosemide today (after one dose IV furosemide yesterday) - good diuresis overnight. -Repeat limited echo performed yesterday demonstrates mild improvement in biventricular systolic function 4. Severe tricuspid regurgitation secondary to automatic implantable cardioverter-defibrillator lead placement. 5. Status post ventricular fibrillation arrest status post ICD shocks (11 appropriate shocks recorded). -no recurrent arrhythmias noted on threat monitoring analyst. Recommend PT today. Monitor hbg off IV heparin. Case to be discussed with Dr. Garcia. Will follow. Cardiology Attending Physician: Patient seen and examined at the bedside. C/o transient nausea after AM medications. Feeling better now. Edema improved. PE: VSS. GEN: NAD, AAO x3. Heart: Irregular, normal S1S2, 1/6 LAURA Lungs: clear + crackles at right base. No wheeze. Abd: soft, NT, ND, no rebound or guarding. Ext: plus 1 pedal edema A/P: Agree with above PA-C history, physical exam, assessment and plan. Will continue plavix plus coumadin. Discontinue aspirin and heparin today. Will continue to follow. Winston Garcia DO, FAC Laboratory Results Last 24 Hours Test 01/17/17 11:28 01/17/17 15:55 01/17/17 19:48 01/18/17 06:08 Bedside Glucose 152 mg/dl 133 mg/dl 142 mg/dl White Blood Count 5.47 K/uL Red Blood Count 3.14 M/uL Hemoglobin 8.6 g/dL Hematocrit 27.9 % Mean Corpuscular Volume 88.9 fL Mean Corpuscular Hemoglobin 27.4 pg Mean Corpuscular Hemoglobin Concent 30.8 g/dl RDW Standard Deviation 54.3 fL RDW Coefficient of Variation 16.6 % Platelet Count 176 K/uL Mean Platelet Volume 9.4 fL Prothrombin Time 23.4 SECONDS Prothromb Time International Ratio 2.1 Activated Partial Thromboplast Time 65.4 SECONDS Partial Thromboplastin Ratio 2.5 Sodium Level 141 mmol/L Potassium Level 3.9 mmol/L Chloride Level 104 mmol/L Carbon Dioxide Level 29 mmol/L Anion Gap 8.0 mmol/L Blood Urea Nitrogen 22 mg/dl Creatinine 1.50 mg/dl Est Creatinine Clear Calc Drug Dose 47.7 ml/min Estimated GFR () 51.3 Estimated GFR (Non- 44.3 BUN/Creatinine Ratio 15.0 Random Glucose 116 mg/dl Calcium Level 8.8 mg/dl Magnesium Level 2.1 mg/dl Test 01/18/17 06:42 Bedside Glucose 125 mg/dl
[2017-01-18] MEDS: WARFARIN SOD 7.5 MG TAB PO SCH (16:08)
[2017-01-18] MEDS: ROSUVASTATIN CALCIUM 20 MG TAB PO SCH (20:02)
[2017-01-18] MEDS: POLYETHYLENE (MIRALAX) 17 GM PACK PO PRN (20:03)
--- NOTE | 2017-01-18 20:21 | Progress Note ---
Medicine Progress Note Date & Time of Visit: Jan 18, 2017 at 20:17. Subjective Patient seen and examined. Ambulating hallways with daughter. Passing gas, but no BM yet. Objective Last 8 Hrs Date Time Temp Pulse Resp B/P Pulse Ox O2 Delivery O2 Flow Rate FiO2 01/18/17 20:11 36.6 83 18 146/66 96 Room Air 01/18/17 16:05 36.6 77 18 147/74 95 Room Air 01/18/17 16:00 Room Air 01/18/17 14:08 69 94 Physical Exam: General-awake; alert; NAD Eyes-EOMI; no scleral icterus Neck-no stridor; trachea midline Lungs-CTA bilaterally; no wheezes/crackles Heart-irregularly irregular Abdomen-soft; NTND; nBS Extremities-1+ pitting edema of bilateral lower legs Neuro-no gross focal deficits Laboratory Results: Last 24 Hours Test 01/18/17 06:08 01/18/17 06:42 01/18/17 11:05 01/18/17 15:57 White Blood Count 5.47 K/uL Red Blood Count 3.14 M/uL Hemoglobin 8.6 g/dL Hematocrit 27.9 % Mean Corpuscular Volume 88.9 fL Mean Corpuscular Hemoglobin 27.4 pg Mean Corpuscular Hemoglobin Concent 30.8 g/dl RDW Standard Deviation 54.3 fL RDW Coefficient of Variation 16.6 % Platelet Count 176 K/uL Mean Platelet Volume 9.4 fL Prothrombin Time 23.4 SECONDS Prothromb Time International Ratio 2.1 Activated Partial Thromboplast Time 65.4 SECONDS Partial Thromboplastin Ratio 2.5 Sodium Level 141 mmol/L Potassium Level 3.9 mmol/L Chloride Level 104 mmol/L Carbon Dioxide Level 29 mmol/L Anion Gap 8.0 mmol/L Blood Urea Nitrogen 22 mg/dl Creatinine 1.50 mg/dl Est Creatinine Clear Calc Drug Dose 47.7 ml/min Estimated GFR () 51.3 Estimated GFR (Non- 44.3 BUN/Creatinine Ratio 15.0 Random Glucose 116 mg/dl Calcium Level 8.8 mg/dl Magnesium Level 2.1 mg/dl Bedside Glucose 125 mg/dl 124 mg/dl 111 mg/dl Test 01/18/17 19:53 Bedside Glucose 136 mg/dl Assessment & Plan NAUSEA - EKG unchanged from previous; no acute ischemic changes - troponin downtrending from previous STEMI - abdominal xray negative for obstruction - no focal neurologic deficits on exam - continue anti-emetics PRN - resolved STEMI - presented with nausea, vomiting, diaphoresis, and firing of AICD; EKG on arrival showed ST elevation inferiorly - patient taken to cath labs had PTCA of proximal-mid RCA - per Dr. Arce - occlusion was more thromboembolic in nature - ? from left atria or left ventricle; patient has history of chronic a. fib and cardiomyopathy (EF 25-30%) and noted to have subtherapeutic INR on admission - Integrilin transitioned to IV Heparin -- discontinued - on Plavix, beta bryan, and statin - aspirin discontinued given anemia CHRONIC SYSTOLIC CHF 2/2 ISCHEMIC CARDIOMYOPATHY - EF 25-30% on echo 08/2015 - EF 20-25% this admission - continue beta bryan - resumed furosemide - melissa-i on hold given renal function ACUTE KIDNEY INJURY - likely ATN related to cardiac event - hold melissa-i CHRONIC ATRIAL FIBRILLATION - rate controlled on dig and beta bryan - continue both - continue warfarin HX V-TACH S/P AICD DM - hgb a1c 5.6 10/2016 - hold metformin, utilize SSI while hospitalized HX CVA - on Plavix DVT PROPHYLAXIS - warfarin Anticipate discharge home with home health, possibly tomorrow. Discharge planning: home with home health Consultants: Cardiology Procedures: [facility] Findings: left dominant circulation. Subtotal proximal RCA and total mid RCA. PTCA performed to the proximal and mid RCA. GILMAR 3 flow established into a high rising acute marginal ( long small - medium caliber vessel) and to mid-distal RCA ( gives rise to two small caliber RV branches). No underlying stenosis in proximal or mid RCA. Left coronary artery with no significant disease. Patent LAD stent. Patient developed respiratory depression after versed and fentanyl . Subsequent oxygen desaturation requiring patient to be receive oxygen by bag and mask. After Romazicon and naloxone he returned to baseline mental status and normal respirations. TTE * Compared to the prior study dated 08/27/15, there has been an interval decline in the biventricular systolic function. * Several biventricular systolic dysfunction is present. * The septal leaflet of the tricuspid valve is restricted by the AICD lead with resultant malcoaptation causing tricuspid regurgitation. * There is severe tricuspid regurgitation. * Severe pulmonary hypertension is likely present based on the 2D findings. * Dilated inferior vena cava with reduced collapsability with sniff indicates an elevated right atrial pressure of 15 mmHg Current Inpatient Medications: Current Inpatient Medications Medications (Trade) Dose Ordered Sig/Magaly Route Start Time Stop Time Status Last Admin Dose Admin Atropine Sulfate (Atropine Sulfate 0.1MG/Ml Inj) 0.5 mg ONE PRN IV 01/12/17 07:00 02/11/17 06:59 Aspirin (Ecotrin Tab) 81 mg QAM PO 01/12/17 09:00 02/11/17 08:59 Future Hold 01/18/17 07:45 81 MG Clopidogrel Bisulfate (plAVix TAB) 75 mg QAM PO 01/13/17 09:00 02/12/17 08:59 01/18/17 07:45 75 MG Acetaminophen (Tylenol Tab) 650 mg Q6H PRN PO 01/12/17 10:00 02/11/17 09:59 01/14/17 23:38 650 MG Cyanocobalamin (Vitamin B-12 Tab) 1,000 mcg DAILY PO 01/13/17 09:00 02/12/17 08:59 01/18/17 07:45 1,000 MCG Digoxin (Lanoxin Tab) 0.125 mg DAILY PO 01/13/17 09:00 02/12/17 08:59 01/18/17 07:46 0.125 MG Ferrous Gluconate (Ferrous Gluconate Tab) 324 mg BIDM PO 01/12/17 16:30 02/11/17 16:29 01/18/17 16:08 324 MG Furosemide (Lasix Tab) 20 mg DAILY PO 01/13/17 09:00 02/12/17 08:59 Future hold 01/18/17 10:22 20 MG Pantoprazole Sodium (Protonix Tab) 40 mg DAILY PO 01/13/17 09:00 02/12/17 08:59 01/18/17 07:45 40 MG Rosuvastatin Calcium (Crestor Tab) 20 mg HS PO 01/12/17 21:00 02/11/17 20:59 01/18/17 20:02 20 MG Insulin Aspart (novoLOG ASPART) SLIDING SCALE If C... ACHS SC 01/12/17 11:00 02/11/17 10:59 01/18/17 07:43 3 UNITS Glucose (Glucose 40% Gel) 15-30 GRAMS 15 GRAMS... UD PRN PO 01/12/17 10:30 02/11/17 10:29 Glucose (Glucose Chew Tab) 4-8 Tablets 4 Tabl... UD PRN PO 01/12/17 10:30 02/11/17 10:29 Dextrose (Dextrose 50% 50ML Syringe) 25-50ML OF 50% DW IV FOR... UD PRN IV 01/12/17 10:30 02/11/17 10:29 Glucagon (Glucagon Inj) 1 mg UD PRN SQ 01/12/17 10:30 02/11/17 10:29 Warfarin Sodium (Coumadin Tab) 5 mg SuTuWeThSa@1600 PO 01/16/17 16:00 02/15/17 15:59 01/17/17 15:46 5 MG Warfarin Sodium (Coumadin Tab) 7.5 mg MoFr@1600 PO 01/15/17 16:00 02/14/17 15:59 01/18/17 16:08 7.5 MG Carvedilol (Coreg Tab) 6.25 mg BID PO 01/15/17 21:00 02/14/17 20:59 01/18/17 20:02 6.25 MG Tramadol HCl (Ultram Tab) 50 mg Q6H PRN PO 01/15/17 21:30 02/14/17 21:29 Ondansetron HCl (Zofran Inj) 4 mg Q8H PRN IV 01/16/17 00:45 02/15/17 00:44 01/16/17 16:15 4 MG Metoclopramide HCl (Reglan Inj) 5 mg Q6H PRN IV 01/16/17 08:15 02/15/17 08:14 01/16/17 20:38 5 MG Bisacodyl (Dulcolax Supp) 10 mg DAILY PRN [place] 01/16/17 08:15 02/15/17 08:14 Trolamine Salicylate (Myoflex Cream) 1 appln Q6 PRN EXT 01/16/17 19:15 02/15/17 19:14 01/17/17 00:29 1 APPLN Polyethylene (Miralax Powder Packet) 17 gm DAILY PRN PO 01/17/17 08:30 02/16/17 08:29 01/18/17 20:03 17 GM Docusate Sodium (coLACE CAP) 100 mg BID PO 01/17/17 21:00 02/16/17 20:59 01/18/17 20:02 100 MG Lisinopril (Zestril Tab) 10 mg QAM PO 01/18/17 09:00 02/17/17 08:59 Future Hold 01/18/17 07:46 10 MG
[2017-01-19] VITALS: O2SAT 95
[2017-01-19 03:39] VITALS: BP 92/44; PULSE 63; TEMP 36.7; O2SAT 94
[2017-01-19 06:00] LABS: MEAN CELL VOLUME 86.3 fL (80-100); MEAN CORPUSCULAR HEMOGLOBIN 27.8 pg (25-34); MEAN CORPUSCULAR HGB CONC 32.2 g/dl (32-36); MEAN PLATELET VOLUME 9.1 fL (7.4-10.4); PLATELET COUNT 164 K/uL (130-400); RED BLOOD COUNT 3.13 M/uL (4.7-6.1); WHITE BLOOD COUNT 5.51 K/uL (4.8-10.8)
[2017-01-19 06:09] LABS: PROTHROMBIN TIME (PATIENT) 22.2 SECONDS (9.0-12.0)
[2017-01-19 06:38] LABS: BUN/CREATININE RATIO 15.3 (10-20); CALCIUM 8.6 mg/dl (8.5-10.1); CREATININE 1.4 mg/dl (0.60-1.40); POTASSIUM 3.8 mmol/L (3.5-5.1)
[2017-01-19] MEDS: FUROSEMIDE 20 MG TAB PO SCH (07:40)
[2017-01-19] MEDS: PANTOprazole SOD 40 MG TAB PO SCH (07:40)
[2017-01-19] MEDS: CARVEDILOL 6.25 MG TAB PO SCH (07:40)
[2017-01-19 07:41] VITALS: BP 159/79; PULSE 65; TEMP 36.9; O2SAT 95
[2017-01-19] MEDS: DOCUSATE SODIUM 100 MG CAP PO SCH (07:41)
[2017-01-19] MEDS: FERROUS GLUCONATE 324 MG TAB PO SCH ×2 (07:41→16:26)
[2017-01-19] MEDS: CYANOCOBALAMIN 500 MCG TAB (VIT B-12) PO SCH (07:41)
[2017-01-19] MEDS: DIGOXIN 0.125 MG TAB PO SCH (07:41)
[2017-01-19] MEDS: CLOPIDOGREL BISULFATE 75 MG TAB PO SCH (07:41)
[2017-01-19] MEDS: INSULIN ASPART 100 UNITS/ML 3 ML PEN SC SCH ×2 (07:44→11:00)
--- NOTE | 2017-01-19 11:10 | Cardiology Follow-Up ---
Subjective General Date of Service: Jan 19, 2017. Chief Complaint: follow up [place], [place], AICD discharges History of Present Illness Patient feeling well this AM. Ambulating in room/hallway yesterday and today without complaints. Denies chest pain or SOB. LE edema improving. No orthopnea, PND. Nausea improved. Hoping to go home today. Allergies Coded Allergies: Codeine (Verified Allergy, Unknown, GI SYMPTOMS, 01/12/17) BRIANA Inhibitors (Verified Adverse Reaction, Mild, cough,TAKES BENAZEPRIL PER MED REC, 01/17/17) Cefuroxime (Verified Adverse Reaction, Mild, GI SYMPTOMS, 01/17/17) Social History Smoking Status: Never Smoker Hx Tobacco Use In Past Year?: Yes (chewing tobacco everyday) Hx Alcohol Use - Type And Amou: No Hx Substance Use - Type And Am: No Review of Systems Respiratory: No cough, No dyspnea at rest, No hemoptysis, No shortness of breath, No sputum, No wheezing Cardiac: + edema, No PND, No chest pain, No orthopnea, No palpitations Physical Exam Vital Signs Last Vital Signs Documentation Date Time Temp Pulse Resp B/P Pulse Ox O2 Delivery O2 Flow Rate FiO2 01/19/17 08:00 Room Air 01/19/17 07:41 36.9 65 20 159/79 95 01/19/17 00:00 2.0 01/12/17 06:42 100 Physical Exam Constitutional: Level of Distress: NAD, chronically ill Psychiatric: Mental Status: active & alert Orientation: to time, to place, to person ENMT: normal ENT inspection Neck: supple Lungs: Auscultation: no wheezing, no rhonchi, rales/crackles on the left, rales/ crackles on the right Cardiovascular: Heart Auscultation: II/ LAURA, irregular rate rhythm Peripheral Pulses: Carotid Pulse: normal on the left, normal on the right Radial Pulse: normal on the left, normal on the right Abdomen: Inspection & Palpation: soft, non-distended Extremities: no cyanosis, edema, pertinent finding (1+ biltateral LE edema) Neurologic: Gait & Station: pertinent finding (no focal deficits ) Assessment and Plan Assessment and Plan Assessment and Plan: 76 year old male 1. S/P acute inferior wall ST elevation myocardial infarction, status post balloon angioplasty without stenting. Etiology likely cardioembolic phenomenon related to underlying atrial fibrillation and noncompliance with warfarin. 2. anemia - no evidence of acute GI bleed per patient -hbg stable this AM. -recommend discharge on Plavix and coumadin. No ASA. -INR 2 this AM. Will need close f/u with anticoagulation clinic 3. Acute on chronic decompensated heart failure secondary to severe biventricular systolic dysfunction. -Diuretics had been on hold since 01/13 due to azotemia -LE edema improving since resuming furosemide. Discharge on prior home dose of furosemide 20 mg daily. -Repeat limited echo performed yesterday demonstrates mild improvement in biventricular systolic function 4. Severe tricuspid regurgitation secondary to automatic implantable cardioverter-defibrillator lead placement. 5. Status post ventricular fibrillation arrest status post ICD shocks (11 appropriate shocks recorded). -no recurrent arrhythmias noted on virtualization engineer. Stable cardiac signs/symptoms for discharge today. Will need anticoagulation clinic f/u this week. Patient to keep appointment as scheduled with Dr. Alexander on 01/22 for hospital f/ u. Cardiology Attending Physician: Patient seen and examined at the bedside. No recurrent nausea. Tolerated AM meds. Creatinine trended downward. Requesting discharge. PE: VSS. GEN: NAD, AAO x3. Heart: Irregular, normal S1S2, 1/6 LAURA Lungs: clear + crackles at right base. No wheeze. Abd: soft, NT, ND, no rebound or guarding. Ext: plus 1 pedal edema A/P: Agree with above PA-C history, physical exam, assessment and plan. Continue current cardiovascular medications. Outpatient cardiology follow up scheduled. Will sign off. Please call with questions. Winston Garcia DO, [facility] Laboratory Results Last 24 Hours Test 01/18/17 11:05 01/18/17 15:57 01/18/17 19:53 01/19/17 05:27 Bedside Glucose 124 mg/dl 111 mg/dl 136 mg/dl White Blood Count 5.51 K/uL Red Blood Count 3.13 M/uL Hemoglobin 8.7 g/dL Hematocrit 27.0 % Mean Corpuscular Volume 86.3 fL Mean Corpuscular Hemoglobin 27.8 pg Mean Corpuscular Hemoglobin Concent 32.2 g/dl RDW Standard Deviation 52.6 fL RDW Coefficient of Variation 16.7 % Platelet Count 164 K/uL Mean Platelet Volume 9.1 fL Prothrombin Time 22.2 SECONDS Prothromb Time International Ratio 2.0 Sodium Level 143 mmol/L Potassium Level 3.8 mmol/L Chloride Level 105 mmol/L Carbon Dioxide Level 31 mmol/L Anion Gap 7.0 mmol/L Blood Urea Nitrogen 21 mg/dl Creatinine 1.40 mg/dl Est Creatinine Clear Calc Drug Dose 47.1 ml/min Estimated GFR () 55.8 Estimated GFR (Non- 48.1 BUN/Creatinine Ratio 15.3 Random Glucose 104 mg/dl Calcium Level 8.6 mg/dl Test 01/19/17 06:36 Bedside Glucose 109 mg/dl
[2017-01-19] MEDS ORDERED: PLV75 PO (11:17)
[2017-01-19] MEDS ORDERED: CMD75 PO (11:17)
[2017-01-19] MEDS ORDERED: MRLP17X PO (11:17)
[2017-01-19] MEDS ORDERED: CMD5 PO (11:17)
[2017-01-19] MEDS ORDERED: CLC100 PO (11:17)
[2017-01-19] MEDS ORDERED: CRG625 PO (11:17)
--- NOTE | 2017-01-19 11:26 | Discharge Instructions ---
Discharge Instructions Admission Reason for Admission: ACS Discharge Discharge Diagnosis / Problem: Acute coronary syndrome. Atrial fibrillation. Discharge Goals Goal(s): Improve disease control, Therapeutic intervention Activity Recommendations Activity Limitations: per Instructions/Follow-up section Avoid strenuous activities or chores in the house. . Instructions / Follow-Up Instructions / Follow-Up The anticoagulation clinic will call on January 21 to follow up your warfarin. Please follow up with Cardiology Dr. Alexander on January 22 at 1:25pm Please follow up with Family Medicine Dr. Garibay on January 25 at 1:10pm. Plavix was started for your heart. Carvedilol (for blood pressure and heart rate) dose was decreased. Coumadin dose was changed. Please do not take benazepril until otherwise instructed to do so by Dr. Alexander. Docusate and Miralax were started to help you move your bowels. Current Hospital Diet Patient's current hospital diet: AHA Diet (Heart Healthy), Diabetes Type 2 Diet Discharge Diet Recommended Diet: AHA Diet (Heart Healthy), Diabetes Type 2 Diet Pending Studies Studies pending at discharge: no Medical Emergencies . Who to Call and When: Medical Emergencies: If at any time you feel your situation is an emergency, please call 911 immediately. . Non-Emergent Contact Non-Emergency issues call your: Primary Care Provider, [employer] . . "Provider Documentation" section prepared by Pippa Dexter. VTE Core Measure Inpt VTE Proph given/why not?: Warfarin (Coumadin)
[2017-01-19 11:33] VITALS: BP 167/91; PULSE 91; TEMP 36.6; O2SAT 97
--- NOTE | 2017-01-19 11:39 | Discharge Summary ---
Discharge Summary Date of Service Jan 19, 2017. Discharge Summary Admission Date: Jan 12, 2017 at 05:35 Discharge Date: Jan 19, 2017 Discharge Disposition: Home with services Principal Diagnosis: ACS Secondary Diagnoses/Problems: Atrial fibrillation Procedures: [facility] Findings: left dominant circulation. Subtotal proximal RCA and total mid RCA. PTCA performed to the proximal and mid RCA. GILMAR 3 flow established into a high rising acute marginal ( long small - medium caliber vessel) and to mid-distal RCA ( gives rise to two small caliber RV branches). No underlying stenosis in proximal or mid RCA. Left coronary artery with no significant disease. Patent LAD stent. Patient developed respiratory depression after versed and fentanyl . Subsequent oxygen desaturation requiring patient to be receive oxygen by bag and mask. After Romazicon and naloxone he returned to baseline mental status and normal respirations. TTE * Compared to the prior study dated 08/27/15, there has been an interval decline in the biventricular systolic function. * Several biventricular systolic dysfunction is present. * The septal leaflet of the tricuspid valve is restricted by the AICD lead with resultant malcoaptation causing tricuspid regurgitation. * There is severe tricuspid regurgitation. * Severe pulmonary hypertension is likely present based on the 2D findings. * Dilated inferior vena cava with reduced collapsability with sniff indicates an elevated right atrial pressure of 15 mmHg Consultations: Cardiology Medication Reconciliation New Medications: Carvedilol (Carvedilol) 6.25 Mg Tab 6.25 MG PO BID for 30 Days, #60 TAB Clopidogrel Bisulfate (Clopidogrel) 75 Mg Tab 75 MG PO QAM for 30 Days, #30 TAB Docusate Sodium (Docusate Sodium) 100 Mg Cap 100 MG PO BID for 30 Days, #60 CAP Polyethylene (Miralax) 17 Gm Pow 17 GM PO DAILY PRN for Constipation for 30 Days, #1 BTL Warfarin Sod (Coumadin) 5 Mg Tab 5 MG PO SuTuWeThSa@1600 for 30 Days, #30 TAB Warfarin Sod (Coumadin) 7.5 Mg Tab 7.5 MG PO MoFr@1600 for 30 Days, #30 TAB Continued Medications: Cyanocobalamin (Vitamin B-12) 1,000 Mcg Tab 1000 MCG PO DAILY, TAB Digoxin (Digoxin) 0.125 Mg Tab 0.125 MG PO DAILY Ferrous Gluconate (Ferrous Gluconate) 324 Mg Tab 324 MG PO BIDM, TAB Furosemide (Lasix) 20 Mg Tab 20 MG PO DAILY Metformin Hcl (Glucophage) 1,000 Mg Tab 1000 MG PO DAILY, TAB Nitroglycerin (Nitrostat) 0.4 Mg Sub 0.4 MG UT UD PRN for Chest Pain Pantoprazole (Protonix) 40 Mg Tab 40 MG PO DAILY Rosuvastatin Calcium (Crestor) 20 Mg Tab 20 MG PO DAILY Discontinued Medications: Benazepril Hcl (Lotensin) 40 Mg Tab 40 MG PO DAILY Carvedilol (Coreg) 12.5 Mg Tab 12.5 MG PO BIDM Warfarin Sodium (Coumadin) 5 Mg Tab 12.5 MG PO 2XWK, 1 Refill take on wednesday & Warfarin Sodium (Coumadin) 5 Mg Tab 7.5 TAB PO 5XWK, 5 Refills take on , wed, wed, sat, sun Admission Information HPI (per Admitting provider): 76 year old male who presented to the ER via EMS for nausea, diaphoresis, and his defibrillator firing. Patient's reports he went to bed feeling in his usual state of health last night. Around 0300, he woke up and was nauseous and had episodes of vomiting. He was also very diaphoretic. When EMS arrived, his defibrillator fired about 6 times per the . Upon arrival to the ER, patient was a heart alert and found to have ST elevations in the inferior leads. Patient was taken to the crime lab analyst and found to have subtotal occlusion of the proximal RCA and total occlusion of the mid RCA. Patient underwent PTCA of the mid-proximal RCA. At the time of my exam, patient is lethargic. He arouses to loud verbal and tactile stimuli but falls back to sleep quickly. He is able to tell me his name and that he is in the hospital. Vitals are stable. Physical Exam (per Admitting): General Appearance: no apparent distress Head: normocephalic Eyes: normal inspection ENT: hearing grossly normal Neck: supple, no JVD Respiratory/Chest: no respiratory distress, + decreased breath sounds Cardiovascular: + irregularly irregular, + pertinent finding (+1-2 pitting edema BLLE) Abdomen/GI: normal bowel sounds, non tender, soft Extremities/Musculoskelatal: normal inspection, no calf tenderness, + pertinent finding (small amount of bloody drainage noted around right radial compression dressing) Neurologic/Psych: + pertinent finding (lethargic, awakens to loud verbal and tactile stimuli, falls back to sleep quickly; able to state name, place, and year) Skin: normal color, warm/dry Hospital Course Patient was admitted with STEMI. Patient presented with nausea, vomiting, diaphoresis, and firing of AICD. EKG on arrival showed ST elevation inferiorly. Patient was taken to crime lab analyst and had PTCA of proximal-mid RCA. Per extruder operator horizontal, the occlusion was more thromboembolic in nature - ? from left atria or left ventricle. Patient has a history of chronic a. fib and cardiomyopathy (EF 25-30%) and was noted to have subtherapeutic INR on admission. Patient was started on Integrilin post heart cath and this was transitioned to a heparin drip. Patient was resumed on warfarin and the heparin drip was discontinued when the INR was therapeutic. Patient was started on Plavix. Patient's carvedilol dose was decreased. Benazepril was held during hospitalization and upon discharge due to low-normal blood pressures and TOBIN. Aspirin, which had been started during this hospitalization, was discontinued due to anemia (Hgb stable ~8-9). Patient's furosemide had been held during hospitalization due to TOBIN, which improved, and so was resumed prior to discharge. Patient was continued on the remainder of his home medications upon discharge, with the aforementioned exceptions. Patient deemed stable for discharge with Cardiology, anticoagulation clinic and Family Medicine. PE on discharge: General- awake; alert; NAD Eyes- EOMI; no scleral icterus Neck- no stridor; trachea midline Lungs- faint right basilar crackles, otherwise clear Heart- irregularly irregular Abdomen- soft; NTND; nBS Back- no gross abnormalities Extremities- 1+ edema of bilateral LE; no deformity Neuro- no focal deficits; patient ambulating independently Skin- no appreciable rash . Total time spent on discharge = This includes examination of the patient, discharge planning, medication reconciliation, and communication with other providers. Discharge Instructions Discharge Instructions Admission Reason for Admission: ACS Discharge Discharge Diagnosis / Problem: Acute coronary syndrome. Atrial fibrillation. Discharge Goals Goal(s): Improve disease control, Therapeutic intervention Activity Recommendations Activity Limitations: per Instructions/Follow-up section Avoid strenuous activities or chores in the house. . Instructions / Follow-Up Instructions / Follow-Up The anticoagulation clinic will call on January 21 to follow up your warfarin. Please follow up with Cardiology Dr. Alexander on January 22 at 1:25pm Please follow up with Family Medicine Dr. Garibay on January 25 at 1:10pm. Plavix was started for your heart. Carvedilol (for blood pressure and heart rate) dose was decreased. Coumadin dose was changed. Please do not take benazepril until otherwise instructed to do so by Dr. Alexander. Docusate and Miralax were started to help you move your bowels. Current Hospital Diet Patient's current hospital diet: AHA Diet (Heart Healthy), Diabetes Type 2 Diet Discharge Diet Recommended Diet: AHA Diet (Heart Healthy), Diabetes Type 2 Diet Pending Studies Studies pending at discharge: no Medical Emergencies . Who to Call and When: Medical Emergencies: If at any time you feel your situation is an emergency, please call 911 immediately. . Non-Emergent Contact Non-Emergency issues call your: Primary Care Provider, Mangle Roll Operator . . "Provider Documentation" section prepared by Pippa Dexter. VTE Core Measure Inpt VTE Proph given/why not?: Warfarin (Coumadin) Additional Copies To Vikram Garibay D.O. Henry, Sheldon D., M.D.
[2017-01-19 11:40] VITALS: BP 159/79; PULSE 65; TEMP 36.9; O2SAT 95
[2017-01-19 15:29] VITALS: BP 153/73; PULSE 74; TEMP 36.7; O2SAT 98
[2017-01-19] MEDS: WARFARIN SOD 5 MG TAB PO SCH (16:26)
== END 2017-01-19 17:36 | disposition home health service (06) | DRG 250 ==
LOC: EDBD 04:39 → C.EDB 04:41 → C.MSICU 05:35 → C.2T 01-13 15:36
PROVIDERS: ADMIT Internal Medicine; ATTEND Internal Medicine
PROC: 4A023N7 Measurement of Cardiac Sampling and Pressure, Left Heart, Percutaneous Approach (ICD-10-PCS; 2017-01-12)
PROC: B2111ZZ Fluoroscopy of Multiple Coronary Arteries using Low Osmolar Contrast (ICD-10-PCS; 2017-01-12)
PROC: B2151ZZ Fluoroscopy of Left Heart using Low Osmolar Contrast (ICD-10-PCS; 2017-01-12)
PROC: 02703ZZ Dilation of Coronary Artery, One Artery, Percutaneous Approach (ICD-10-PCS; principal; 2017-01-12 05:22)
DX: I21.09 ST elevation (STEMI) myocardial infarction involving other coronary artery of anterior wall (principal); N17.0 Acute kidney failure with tubular necrosis; I49.01 Ventricular fibrillation; I48.1 Persistent atrial fibrillation; I50.22 Chronic systolic (congestive) heart failure; I48.2 Chronic atrial fibrillation; E11.9 Type 2 diabetes mellitus without complications; Z85.828 Personal history of other malignant neoplasm of skin; Z86.73 Personal history of transient ischemic attack (TIA), and cerebral infarction without residual deficits; Z79.01 Long term (current) use of anticoagulants; I25.5 Ischemic cardiomyopathy; Z79.02 Long term (current) use of antithrombotics/antiplatelets; Z79.82 Long term (current) use of aspirin; I27.2 Other secondary pulmonary hypertension; I07.1 Rheumatic tricuspid insufficiency; E78.5 Hyperlipidemia, unspecified; N18.9 Chronic kidney disease, unspecified; Z91.19 Patient's noncompliance with other medical treatment and regimen; I25.10 Atherosclerotic heart disease of native coronary artery without angina pectoris

== ENCOUNTER 2017-05-10 09:19 | Emergency (ER) | payer OTHER ==
[~2017-05-10 09:19] MED LIST changes: -BENA40TA6 PO; -CARV12.5 PO; +CLC100 PO; +CMD5 PO; +CMD75 PO; +CRG625 PO; +CYAN10005 PO; -DIGO0.122 PO; -ENOX100I SC; +FERR325T18 PO; +FURO-85 PO; -FURO40TA3 PO; +LNX125 PO; +MRLP17X PO; +PLV75 PO; -WARF7.5T PO
[2017-05-10 09:25] VITALS: TEMP 36.6
--- NOTE | 2017-05-10 11:19 | DIAGNOSTIC IMAGING REPORT ---
LUMBAR SPINE 5 VIEWS HISTORY: Trauma. Pain. Fall, back pain COMPARISON: None. FINDINGS: There is no fracture. No subluxation. Moderate degenerative disc change throughout. IMPRESSION: Moderate degenerative disc change. No acute bony abnormality. Electronically signed by: Brennen Nguyen M.D. 05/10/2017 11:18 AM Dictated Date/Time: 05/10/2017 11:17 AM
--- NOTE | 2017-05-10 11:24 | DIAGNOSTIC IMAGING REPORT ---
THORACIC SPINE 3 VIEWS HISTORY: Fall, back pain COMPARISON: None. FINDINGS: There is no fracture. No subluxation. Mild dextroscoliosis. Mild degenerative disc disease seen within the mid thoracic spine with flowing anterior osteophytes. IMPRESSION: No fracture or subluxation within the thoracic spine. Mild degenerative disc disease. Electronically signed by: Warner Nelson M.D. 05/10/2017 11:23 AM Dictated Date/Time: 05/10/2017 11:21 AM
--- NOTE | 2017-05-10 11:29 | DIAGNOSTIC IMAGING REPORT ---
PA CHEST WITH RIGHT-SIDED RIB SERIES CLINICAL HISTORY: Fall with right-sided chest wall pain. FINDINGS: A PA chest radiograph with 6 additional views may right-sided rib series is compared to study dated 01/12/2017. The PA view is degraded by patient rotation. A single lead cardiac AICD is unchanged in position and largely obscures the left upper lobe. The heart is enlarged and there is atherosclerotic calcification of the thoracic aorta. The pulmonary vasculature is noncongested. Chronic interstitial thickening is similar to previous and there is bibasilar atelectasis. No airspace consolidation or pleural effusion is identified. No pneumothorax is seen. The skeletal structures are osteopenic. There are nondistracted right posterior 10th and 11th rib fractures. No additional right-sided rib fracture is seen on the rib series. The remainder of the bony thorax is grossly intact. Degenerative change is noted throughout the thoracic spine. IMPRESSION: 1. Cardiomegaly and AICD. There is no radiographic evidence of congestive failure. 2. No airspace consolidation or pleural effusion is identified. 3. Nondistracted right posterior 10th and 11th rib fractures are identified on the rib series. Electronically signed by: Lam Adhikari M.D. 05/10/2017 11:28 AM Dictated Date/Time: 05/10/2017 11:24 AM
[2017-05-10] MEDS ORDERED: TRAMADOL HCL 50 MG TAB PO STA (12:38)
[2017-05-10 13:33] VITALS: BP 159/77; PULSE 76; O2SAT 94
[2017-05-10] MEDS ORDERED: DIGOXIN 0.125 MG TAB PO STA (13:38)
[2017-05-10] MEDS ORDERED: FERROUS SULFATE 325 MG TAB PO STA (13:38)
[2017-05-10] MEDS ORDERED: FUROSEMIDE 20 MG TAB PO STA (13:38)
[2017-05-10] MEDS ORDERED: METFORMIN HCL 500 MG TAB PO STA (13:38)
[2017-05-10] MEDS ORDERED: CARVEDILOL 6.25 MG TAB PO STA (13:38)
[2017-05-10] MEDS ORDERED: ROSUVASTATIN CALCIUM 5 MG TAB PO STA (13:38)
[2017-05-10] MEDS ORDERED: CLOPIDOGREL BISULFATE 75 MG TAB PO STA (13:38)
[2017-05-10] MEDS ORDERED: CYANOCOBALAMIN 500 MCG TAB (VIT B-12) PO STA (13:38)
[2017-05-10] MEDS ORDERED: PANTOprazole SOD 40 MG TAB PO STA (13:38)
--- NOTE | 2017-05-10 13:54 | EMERGENCY ROOM VISIT NOTE ---
History First contact with patient: 09:53 Chief Complaint: FALL Stated Complaint: FELL ON 6/16-RT SIDE/BACK-SHARP PAIN History of Present Illness The patient is a 77 year old male who presents to the Emergency Room via private vehicle with complaints of "fell on 6-16right side/back sharp pain". 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 He states that he had clogs on his feet, and while walking off of the pictures mount fell out of the clogs, falling backwards onto his left buttock region and also struck a metal crate with his back. He notes that at times with movements and deep breath he gets a pain in the right posterior back region overlying the right posterior ribs that he rates as a 15/10. He notes the pain is sharp in nature. He denies pain at rest. He has taken Tylenol which has helped some. He states that last night the pain worsened. He states that he had difficulty sleeping. He also tried a hot shower which helped. He notes that when he sneezes, burps or take a deep breath his pain is worsened. He denies any shortness of breath, anterior chest pain, headache, nausea, numbness or tingling in the extremities. He denies striking his head or loss of consciousness. There are no urinary symptoms. Review of Systems A complete 10-point Review of Systems was discussed with the patient, with pertinent positives and negatives listed in the History of Present Illness. All remaining Review of Systems questions can be considered negative unless otherwise specified. Past Medical/Surgical History Medical Problems: (1) Atrial fibrillation (2) Basal cell carcinoma (3) CAD (coronary artery disease) (4) Cardiac defibrillator in place (5) CVA (cerebral vascular accident) (6) DM type 2 (diabetes mellitus, type 2) (7) Ischemic cardiomyopathy (8) Squamous cell carcinoma (9) V tach Surgical Problems: (1) History of cataract surgery Family History FH: CAD (coronary artery disease) FATHER ( at age 69) MOTHER ( at age 35) SISTER ( at age 65) Social History Smoking Status: Never Smoker Marital Status: Housing Status: lives with family Current/Historical Medications Scheduled Carvedilol (Carvedilol), 6.25 MG PO BID Clopidogrel Bisulfate (Clopidogrel), 75 MG PO QAM Cyanocobalamin (Vitamin B-12), 1,000 MCG PO DAILY Digoxin (Digoxin), 0.125 MG PO DAILY Docusate Sodium (Docusate Sodium), 100 MG PO BID Ferrous Gluconate (Ferrous Gluconate), 324 MG PO BIDM Furosemide (Lasix), 20 MG PO DAILY Metformin Hcl (Glucophage), 1,000 MG PO QAM Pantoprazole (Protonix), 40 MG PO DAILY Rosuvastatin Calcium (Crestor), 20 MG PO DAILY Warfarin Sod (Coumadin), 5 MG PO SuTuWeThSa@1600 Warfarin Sod (Coumadin), 7.5 MG PO MoFr@1600 Scheduled PRN Nitroglycerin (Nitrostat), 0.4 MG UT UD PRN for Chest Pain Polyethylene (Miralax), 17 GM PO DAILY PRN for Constipation Tramadol (Ultram), 50 MG PO Q6 PRN for Pain Allergies Coded Allergies: Fentanyl (Verified Allergy, Severe, Decreased oxygen saturation, low RR, unresponsive, 05/10/17) Patient sedated for emergent heart catheterization. Patient given IV versed and fentanyl per MD orders. Patient given IV Versed (1mg+1mg) and Fentanyl (50mcg). Patient oxygen saturation drops into the 50's and patient becomes unresponsive with low respiratory rate, requiring ambu bag ventilation and the administration of Narcan and Romazicon. Midazolam (Verified Allergy, Severe, Decreased oxygen saturation, low RR, unresponsive., 05/10/17) Patient sedated for emergent heart catheterization. Patient given IV versed and fentanyl per MD orders. Patient given IV Versed (1mg+1mg) and Fentanyl (50 mcg). Patient oxygen saturation drops into the 50's and patient becomes unresponsive with low respiratory rate, requiring ambu bag ventilation and the administration of Narcan and Ramazicon. Codeine (Verified Allergy, Unknown, GI SYMPTOMS, 05/10/17) BRIANA Inhibitors (Verified Adverse Reaction, Mild, cough,TAKES BENAZEPRIL PER MED REC, 05/10/17) Cefuroxime (Verified Adverse Reaction, Mild, GI SYMPTOMS, 05/10/17) Physical Exam Vital Signs Date Time Temp Pulse Resp B/P (MAP) Pulse Ox O2 Delivery O2 Flow Rate FiO2 05/10/17 13:58 76 05/10/17 13:33 76 16 159/77 94 Room Air 05/10/17 13:01 77 158/79 94 Room Air 05/10/17 11:19 76 18 173/116 96 Room Air 05/10/17 09:25 36.6 76 20 157/80 96 Room Air Physical Exam VITAL SIGNS - Vital signs and nursing notes were reviewed. Patient is afebrile , hypertensive 157/80, non-tachycardic and saturating well on room air 96%. GENERAL -77-year-old male appearing his stated age who is in no acute distress. Communicates well with provider and answers questions appropriately. SKIN - Without rashes. Slight ecchymosis noted to the mid thoracic region in the transverse plane. No breaks in the integument. HEAD - NC/AT. NECK - Neck with FROM.No C-spine tenderness. LUNGS - Chest wall symmetric without accessory muscle use, intercostals retractions, or central cyanosis. Normal vesicular breath sounds CTA B/L. No wheezes, rales, or rhonchi appreciated. CARDIAC - RRR with S1/S2. No murmur, rubs, or gallops appreciated. ABDOMEN - Abdominal contour without pulsations or visible masses. BS normoactive all four quadrants. No tenderness, palpable masses, hepatosplenomegaly, or ascites noted. MUSCULOSKEKETAL: There is tenderness to palpation overlying the right posterior inferior rib cage region. EXTREMITIES - No clubbing or peripheral cyanosis. No pretibial edema present. No tenderness to palpation overlying the extremities. +5/5 strength noted in UE /LE bilaterally. NEUROLOGIC - Cranial nerves II through XII grossly intact. Sensory intact to light touch throughout. Patellar reflexes +2/4. PSYCH -Pt is very pleasant and interacts well with examiner. Medical Decision & Procedures ER Provider Diagnostic Interpretation: PA CHEST WITH RIGHT-SIDED RIB SERIES CLINICAL HISTORY: Fall with right-sided chest wall pain. FINDINGS: A PA chest radiograph with 6 additional views may right-sided rib series is compared to study dated 01/12/2017. The PA view is degraded by patient rotation. A single lead cardiac AICD is unchanged in position and largely obscures the left upper lobe. The heart is enlarged and there is atherosclerotic calcification of the thoracic aorta. The pulmonary vasculature is noncongested. Chronic interstitial thickening is similar to previous and there is bibasilar atelectasis. No airspace consolidation or pleural effusion is identified. No pneumothorax is seen. The skeletal structures are osteopenic. There are nondistracted right posterior 10th and 11th rib fractures. No additional right-sided rib fracture is seen on the rib series. The remainder of the bony thorax is grossly intact. Degenerative change is noted throughout the thoracic spine. IMPRESSION: 1. Cardiomegaly and AICD. There is no radiographic evidence of congestive failure. 2. No airspace consolidation or pleural effusion is identified. 3. Nondistracted right posterior 10th and 11th rib fractures are identified on the rib series. Electronically signed by: Lam Adhikari M.D. 05/10/2017 11:28 AM Dictated Date/Time: 05/10/2017 11:24 AM THORACIC SPINE 3 VIEWS HISTORY: Fall, back pain COMPARISON: None. FINDINGS: There is no fracture. No subluxation. Mild dextroscoliosis. Mild degenerative disc disease seen within the mid thoracic spine with flowing anterior osteophytes. IMPRESSION: No fracture or subluxation within the thoracic spine. Mild degenerative disc disease. Electronically signed by: Warner Nelson M.D. 05/10/2017 11:23 AM Dictated Date/Time: 05/10/2017 11:21 AM LUMBAR SPINE 5 VIEWS HISTORY: Trauma. Pain. Fall, back pain COMPARISON: None. FINDINGS: There is no fracture. No subluxation. Moderate degenerative disc change throughout. IMPRESSION: Moderate degenerative disc change. No acute bony abnormality. Electronically signed by: Brennen Nguyen M.D. 05/10/2017 11:18 AM Dictated Date/Time: 05/10/2017 11:17 AM Medications Administered Medications (Trade) Dose Ordered Sig/Magaly Route Start Time Stop Time Status Last Admin Dose Admin Tramadol HCl (Ultram Tab) 50 mg NOW STAT PO 05/10/17 12:38 05/10/17 12:39 DC 05/10/17 12:46 50 MG Clopidogrel Bisulfate (plAVix TAB) 75 mg NOW STAT PO 05/10/17 13:38 05/10/17 13:42 DC 05/10/17 13:58 75 MG Carvedilol (Coreg Tab) 6.25 mg NOW STAT PO 05/10/17 13:38 05/10/17 13:42 DC 05/10/17 13:59 6.25 MG Rosuvastatin Calcium (Crestor Tab) 20 mg NOW STAT PO 05/10/17 13:38 05/10/17 13:42 DC 05/10/17 13:59 20 MG Pantoprazole Sodium (Protonix Tab) 40 mg NOW STAT PO 05/10/17 13:38 05/10/17 13:42 DC 05/10/17 13:57 40 MG Furosemide (Lasix Tab) 20 mg NOW STAT PO 05/10/17 13:38 05/10/17 13:42 DC 05/10/17 13:59 20 MG Metformin HCl (Glucophage Tab) 1,000 mg NOW STAT PO 05/10/17 13:38 05/10/17 13:42 DC 05/10/17 13:59 1,000 MG Ferrous Sulfate (Feosol Tab) 325 mg NOW STAT PO 05/10/17 13:38 05/10/17 13:42 DC 05/10/17 13:58 325 MG Cyanocobalamin (Vitamin B-12 Tab) 1,000 mcg NOW STAT PO 05/10/17 13:38 05/10/17 13:42 DC 05/10/17 13:58 1,000 MCG Digoxin (Lanoxin Tab) 0.125 mg NOW STAT PO 05/10/17 13:38 05/10/17 13:42 DC 05/10/17 13:58 0.125 MG Medical Decision Patient was seen and evaluated as above. After obtaining a thorough history and physical examination radiographs were obtained of the ribs, chest, thoracic region and spine. Patient has reducible tenderness over the right inferior posterior rib region. No other tenderness identified on palpation of his body. Rib radiographs reveal non-distracted fracture of the right posterior 10th and 11th ribs. Patient was informed upon this. Initially declined pain medication, then noted he changed his mind. He was given 50 mg of tramadol after thoroughly discussing this medication with his family in the patient. He noted that he did not take his medications this morning, and his initial family members were unsure of which meds were taken in the morning. His and daughter then arrived to the emergency department. They helped identify which medications were taken in the morning and these are probably ordered. He was also dilated by my attending. At this time I believe he is stable for outpatient management, and was cautioned on developing pneumonia secondary to not taking deep breaths. He'll be given an incentive spirometer, as well as a short-term prescription for pain medication at home. He is to follow-up with his family doctor. He is to return with any worsening. He was educated upon worrisome symptoms which to return, had questions of her discharge, and was discharged home in good condition. In evaluation treatment this patient following differential diagnoses entertained: Rib fracture, spine fracture, contusion, pneumothorax, tension pneumothorax, PE, NH, among others. [facility] Monitoring [facility] Search Results: patient reviewed within database, no issues identified Impression Primary Impression: Fall Additional Impression: Rib fractures Departure Information Dispostion Home / Self-Care Condition GOOD Prescriptions Tramadol (Ultram) 50 Mg Tab 50 MG PO Q6 Y for Pain, #12 TAB Prov: Rajan Moore PA-C 05/10/17 Referrals Shade Thomas III, M.D. (PCP) Patient Instructions [facility] Additional Instructions You have been treated in the Emergency Department for Rib pain. You have received pain medicine in the emergency department which impairs your ability to operate a vehicle. It is illegal for you to drive after receiving these medicines. You have been prescribed TRAMADOL to be used for pain control. This is a narcotic medication. You cannot drive or consume alcohol while on this medicine. This medicine should only be used for pain that cannot be controlled with aese-elf-cpchttt pain medicines. For pain control, you can use the following lelr-oax-axkdnrl medicines (if >12 yo): - Regular strength (325mg/tab) Tylenol (acetaminophen) 2 tabs every 4-6 hours as needed. Do not exceed 12 tablets in a 24 hour period. Avoid taking more than 3 grams (3000 mg) of Tylenol per day. This includes any other sources of acetaminophen you may take on a regular basis. If this is an acute injury, ice can be applied to the area of pain for the first 3 days to help decrease pain and inflammation. After the first 3 days, a heating pad can be used over the area for continued soothing relief. To minimize your discomfort, you can hug a pillow while coughing or sneezing. Additionally, you should continue to force yourself to take nice, deep breaths. Full expansion of the lungs is necessary to prevent the accumulation of fluid in the lung tissue and development of pneumonia. You should schedule a follow-up appointment in 2-3 days with your Primary Care Provider for further evaluation and treatment of your back pain. Please use the Incentive Spirometer several times per hour while awake to help prevent the development of pneumonia. Return to the Emergency Department if your current symptoms worsen despite treatment course outlined above, or if you develop any of the following symptoms : intractable pain despite aforementioned treatment course, development of a wet cough, bloody cough, fever, chills, or increased shortness of breath. Please return the emergency department with any new/concerning symptoms. Problem Qualifiers
[2017-05-10] MEDS ORDERED: TRAM-10 PO (14:10)
--- NOTE | 2017-05-10 15:03 | EMERGENCY ROOM VISIT NOTE ---
ED Visit Note First contact with patient: 09:53 I have personally seen and evaluated the patient with the PA. I agree with the diagnosis and management decisions and have been personally involved in the case. The patient was evaluated and appeared to be in no significant distress until he attempted to move. The patient felt that the Ultram had been assisting him. His family had requested that his morning medications be ordered. I did speak with the PA regarding his medications. Patient was encouraged to cough and deep breathe frequently to avoid complications of the rib fractures. He will be given an Ultram prescription at discharge. Please see Rajan Moore PA-C's notes for further details of the history, physical and visit.
== END 2017-05-10 14:15 | disposition home or self-care (01) ==
LOC: C.EDB 09:21 → C.EDC 14:15
DX: S22.41XA Multiple fractures of ribs, right side, initial encounter for closed fracture (principal); W19.XXXA Unspecified fall, initial encounter; Y92.320 Baseball field as the place of occurrence of the external cause; I48.91 Unspecified atrial fibrillation; Z85.828 Personal history of other malignant neoplasm of skin; I25.10 Atherosclerotic heart disease of native coronary artery without angina pectoris; Z95.810 Presence of automatic (implantable) cardiac defibrillator; Z86.73 Personal history of transient ischemic attack (TIA), and cerebral infarction without residual deficits; E11.9 Type 2 diabetes mellitus without complications; I25.5 Ischemic cardiomyopathy; Z82.49 Family history of ischemic heart disease and other diseases of the circulatory system; Z79.01 Long term (current) use of anticoagulants; Z79.899 Other long term (current) drug therapy

== ENCOUNTER 2017-10-12 18:25 | Emergency (ER) | payer OTHER ==
[~2017-10-12] VITALS: Ht 175.3 cm; Wt 80.8 kg
[~2017-10-12 18:25] MED LIST changes: +TRAM-10 PO
[2017-10-12 18:28] VITALS: TEMP 36.8; Ht 175.3 cm; Wt 80.8 kg
--- NOTE | 2017-10-12 18:50 | EMERGENCY ROOM VISIT NOTE ---
History Report prepared by Eddie: Maximilian Crooks Under the Supervision of: Dr. Rhett Weldon M.D. First contact with patient: 18:29 Chief Complaint: RASH Stated Complaint: RASH ON LEGS,ITCHY,BIG TOE R FOOT BLACK History of Present Illness The patient is a 77 year old male who presents to the Emergency Room with complaints of a constant rash beginning three weeks ago. Per daughter, the patient just notified her of his rash yesterday. She tried to call the doctor because she was concerned the patient's symptoms had something to do with his diabetes. She notes that there was no availability, prompting their visit to the emergency department today. The patient reports that his legs feel "itchy and bumpy" and that he has a black spot on his left big toe. The patient states that the bump has been there for the past two weeks and that he does not remember hitting it. He notes that he was scratching his legs which caused them to bleed and require a band aid. He denies any toe pain, leg pain, fever, cough , congestion, urinary problems, nausea, vomiting, and any exposure to recent tick bites. He also complains of breakouts on his lip and itching along his lower back but denies any back pain. He reports that he does not take insulin for his diabetes but rather takes metformin tablets. Source of History: patient, family Onset: three weeks ago Position: leg (bilateral) Quality: other (rash, itchy and bumpy) Timing: constant Associated Symptoms: No fevers, No cough, No nausea, No vomiting, No back pain, No urinary symptoms Note: He notes a black spot on his left big toe, breakouts on his lips, and an itch in his lower back. He denies any toe pain, leg pain and congestion. Review of Systems See HPI for pertinent positives and negatives. A total of ten systems were reviewed and were otherwise negative. Past Medical & Surgical Medical Problems: (1) Atrial fibrillation (2) Basal cell carcinoma (3) CAD (coronary artery disease) (4) Cardiac defibrillator in place (5) CVA (cerebral vascular accident) (6) DM type 2 (diabetes mellitus, type 2) (7) Ischemic cardiomyopathy (8) Squamous cell carcinoma (9) V tach Surgical Problems: (1) History of cataract surgery Family History FH: CAD (coronary artery disease) FATHER ( at age 69) MOTHER ( at age 35) SISTER ( at age 65) Social History Smoking Status: Never Smoker Marital Status: Housing Status: lives with family Current/Historical Medications Scheduled Carvedilol (Carvedilol), 6.25 MG PO BID Clopidogrel Bisulfate (Clopidogrel), 75 MG PO QAM Cyanocobalamin (Vitamin B-12), 1,000 MCG PO DAILY Digoxin (Digoxin), 0.125 MG PO Q2D Ferrous Gluconate (Ferrous Gluconate), 324 MG PO BIDM Furosemide (Lasix), 20 MG PO 4XWK Furosemide (Lasix), 40 MG PO MWF Metformin Hcl (Glucophage), 1,000 MG PO QAM Pantoprazole (Protonix), 40 MG PO DAILY Rosuvastatin Calcium (Crestor), 20 MG PO DAILY Sertraline (Zoloft), 50 MG PO DAILY Warfarin Sod (Coumadin), 5 MG PO SuTuWeThSa@1600 Warfarin Sod (Coumadin), 7.5 MG PO MoFr@1600 [Testosterone Gel], 1 APPLN TOP DAILY Scheduled PRN Nitroglycerin (Nitrostat), 0.4 MG UT UD PRN for Chest Pain Polyethylene (Miralax), 17 GM PO DAILY PRN for Constipation Allergies Coded Allergies: Fentanyl (Verified Allergy, Severe, Decreased oxygen saturation, low RR, unresponsive, 05/10/17) Patient sedated for emergent heart catheterization. Patient given IV versed and fentanyl per MD orders. Patient given IV Versed (1mg+1mg) and Fentanyl (50mcg). Patient oxygen saturation drops into the 50's and patient becomes unresponsive with low respiratory rate, requiring ambu bag ventilation and the administration of Narcan and Romazicon. Midazolam (Verified Allergy, Severe, Decreased oxygen saturation, low RR, unresponsive., 05/10/17) Patient sedated for emergent heart catheterization. Patient given IV versed and fentanyl per MD orders. Patient given IV Versed (1mg+1mg) and Fentanyl (50 mcg). Patient oxygen saturation drops into the 50's and patient becomes unresponsive with low respiratory rate, requiring ambu bag ventilation and the administration of Narcan and Ramazicon. Codeine (Verified Allergy, Unknown, GI SYMPTOMS, 05/10/17) BRAINA Inhibitors (Verified Adverse Reaction, Mild, cough,TAKES BENAZEPRIL PER MED REC, 05/10/17) Cefuroxime (Verified Adverse Reaction, Mild, GI SYMPTOMS, 05/10/17) Physical Exam Vital Signs Date Time Temp Pulse Resp B/P (MAP) Pulse Ox O2 Delivery O2 Flow Rate FiO2 10/12/17 23:04 68 18 150/81 95 10/12/17 22:44 62 10/12/17 21:42 70 18 140/73 98 Room Air 10/12/17 20:18 70 16 144/78 96 Room Air 10/12/17 19:22 72 10/12/17 18:28 36.8 56 20 148/75 96 Room Air Physical Exam GENERAL: Awake, alert, well-appearing, in no distress HENT: Normocephalic, atraumatic. Oropharynx unremarkable. Dry MM, cracked upper lips. EYES: Normal conjunctiva. Sclera non-icteric. NECK: Supple. No nuchal rigidity. FROM. No JVD. RESPIRATORY: Clear to auscultation. CARDIAC: Regular rate, normal rhythm. Extremities warm and well perfused. Pulses equal. ABDOMEN: Soft, non-distended. No tenderness to palpation. No rebound or guarding. No masses. RECTAL: Deferred. MUSCULOSKELETAL: Chest examination reveals no tenderness. The back is symmetrical on inspection without obvious abnormality. There is no CVA tenderness to palpation. No joint edema. LOWER EXTREMITIES: Calves are equal size bilaterally and non-tender. No edema. Lower leg has anterior patches of petechia, right big toe with distal black discoloration that is nontender. No crepitus. NEURO: Normal sensorium. No sensory or motor deficits noted. SKIN: No rash or jaundice noted. Medical Decision & Procedures ER Provider Diagnostic Interpretation: Radiology results as stated below per my review and radiologist interpretation: CHEST ONE VIEW PORTABLE. FINDINGS: A single lead left pacer/AICD is in place. No pneumothorax or pleural effusion is present. Moderate cardiomegaly is unchanged. Retrocardiac opacity favors atelectasis. There is pulmonary vascular congestion without overt pulmonary edema. IMPRESSION: 1. Pulmonary vascular congestion. 2. Stable cardiomegaly. 3. Linear retrocardiac opacity which favors atelectasis. Electronically signed by: Rodolfo Cruz M.D. 10/12/2017 7:[address] ANGIOGRAPHY OF THE ABDOMEN AND PELVIS WITH BILATERAL LOWER EXTREMITY RUNOFF FINDINGS: The heart is moderately enlarged. Pacer lead is partially imaged. There is a small amount of ascites. The liver may be cirrhotic. The size of the spleen is normal. The adrenal glands and pancreas are normal. A 4 cm left renal cyst is noted. Note is made of a 2.9 x 2.8 cm heterogeneous enhancing lesion within the midpole of the right kidney. There is no hydronephrosis. There is no evidence for a bowel obstruction. Mild anasarca is noted. Caliber and wall thickness of small and large bowel are normal. The caliber of the abdominal aorta is normal. There is moderate atherosclerotic plaque of the abdominal aorta. There is moderate narrowing of the proximal superior mesenteric artery. The bilateral common iliac, external iliac and common femoral arteries are patent. There is mild plaque within the bilateral superficial femoral arteries which are patent. There is no significant stenosis of these vessels. There is moderate plaque within the bilateral calf vessels with three-vessel runoff. Suspected mild to moderate multifocal stenoses of these vessels are present. No abrupt vessel occlusion is identified. The digital vessels of the feet are difficult to assess due to their small size. IMPRESSION: 1. Moderate atherosclerotic plaque of the aortoiliac system and both lower extremities. However, 3 vessel runoff bilaterally. Suspected mild to moderate multifocal stenoses of the bilateral calf vessels with no abrupt vessel occlusion identified however digital vessels of the feet are suboptimally assessed due to their small size. 2. 2.9 cm enhancing lesion within the midpole of the right kidney which is highly suggestive of renal cell carcinoma. Nonemergent urologic consultation is recommended. 3. Small amount of ascites. Possible cirrhosis. Electronically signed by: Rodolfo Cruz M.D. 10/12/2017 8:52 PM R FOOT MIN 3 VIEWS ROUTINE IMPRESSION: 1. No acute osseous abnormality of the right great toe. 2. Moderate vascular calcification. 3. No acute fracture. Electronically signed by: Rodolfo Cruz M.D. 10/12/2017 8:05 PM Laboratory Results 10/12/17 19:10 Red Blood Count 3.09, Mean Corpuscular Volume 91.9, Mean Corpuscular Hemoglobin 29.1, Mean Corpuscular Hemoglobin Concent 31.7, Mean Platelet Volume 10.2, Neutrophils (%) (Auto) 55.3, Lymphocytes (%) (Auto) 20.5, Monocytes (%) (Auto) 17.7, Eosinophils (%) (Auto) 5.4, Basophils (%) (Auto) 0.9, Neutrophils # (Auto ) 2.97, Lymphocytes # (Auto) 1.10, Monocytes # (Auto) 0.95, Eosinophils # (Auto ) 0.29, Basophils # (Auto) 0.05 10/12/17 19:10 Test 10/12/17 19:10 10/12/17 21:15 White Blood Count 5.37 K/uL (4.8-10.8) Red Blood Count 3.09 M/uL (4.7-6.1) Hemoglobin 9.0 g/dL (14.0-18.0) Hematocrit 28.4 % (42-52) Mean Corpuscular Volume 91.9 fL (80-100) Mean Corpuscular Hemoglobin 29.1 pg (25-34) Mean Corpuscular Hemoglobin Concent 31.7 g/dl (32-36) Platelet Count 125 K/uL (130-400) Mean Platelet Volume 10.2 fL (7.4-10.4) Neutrophils (%) (Auto) 55.3 % Lymphocytes (%) (Auto) 20.5 % Monocytes (%) (Auto) 17.7 % Eosinophils (%) (Auto) 5.4 % Basophils (%) (Auto) 0.9 % Neutrophils # (Auto) 2.97 K/uL (1.4-6.5) Lymphocytes # (Auto) 1.10 K/uL (1.2-3.4) Monocytes # (Auto) 0.95 K/uL (0.11-0.59) Eosinophils # (Auto) 0.29 K/uL (0-0.5) Basophils # (Auto) 0.05 K/uL (0-0.2) RDW Standard Deviation 50.5 fL (36.4-46.3) RDW Coefficient of Variation 15.0 % (11.5-14.5) Immature Granulocyte % (Auto) 0.2 % Immature Granulocyte # (Auto) 0.01 K/uL (0.00-0.02) Prothrombin Time 36.1 SECONDS (9.0-12.0) Prothromb Time International Ratio 3.2 (0.9-1.1) Anion Gap 7.0 mmol/L (3-11) Est Creatinine Clear Calc Drug Dose 40.1 ml/min Estimated GFR () 50.1 Estimated GFR (Non- 43.3 BUN/Creatinine Ratio 13.9 (10-20) Calcium Level 9.0 mg/dl (8.5-10.1) Total Bilirubin 0.8 mg/dl (0.2-1) Direct Bilirubin 0.5 mg/dl (0-0.2) Aspartate Amino Transf (AST/SGOT) 29 U/L (15-37) Alanine Aminotransferase (ALT/SGPT) 26 U/L (12-78) Alkaline Phosphatase 93 U/L (45-117) Pro-B-Type Natriuretic Peptide 6592 pg/ml (0-1800) Total Protein 7.4 gm/dl (6.4-8.2) Albumin 4.0 gm/dl (3.4-5.0) Lipase 203 U/L (73-393) Digoxin Level 1.0 ng/ml (0.8-2.0) Lyme Disease IgG Antibody NEG (NEG) Lyme Disease IgM Antibody NEG (NEG) Urine Color YELLOW Urine Appearance CLEAR (CLEAR) Urine pH 5.0 (4.5-7.5) Urine Specific Kemp 1.023 (1.000-1.030) Urine Protein 1+ (NEG) Urine Glucose (UA) NEG (NEG) Urine Ketones NEG (NEG) Urine Occult Blood TRACE (NEG) Urine Nitrite NEG (NEG) Urine Bilirubin NEG (NEG) Urine Urobilinogen POS (NEG) Urine Leukocyte Esterase SMALL (NEG) Urine WBC (Auto) 10-30 /hpf (0-5) Urine RBC (Auto) 0-4 /hpf (0-4) Urine Hyaline Casts (Auto) 1-5 /lpf (0-5) Urine Epithelial Cells (Auto) 10-20 /lpf (0-5) Urine Bacteria (Auto) NEG (NEG) Laboratory results reviewed by me Medications Administered Medications (Trade) Dose Ordered Sig/Magaly Route Start Time Stop Time Status Last Admin Dose Admin Dexamethasone Sodium Phosphate (Dexamethasone Inj Pf) 10 mg NOW ONCE IV 10/12/17 22:30 10/12/17 22:31 DC 10/12/17 22:30 10 MG Diphenhydramine HCl (Benadryl Cap) 25 mg NOW ONCE PO 10/12/17 22:30 10/12/17 22:31 DC 10/12/17 22:29 25 MG ECG Rate (beats per minute): 67 Rhythm: atrial fibrillation Findings: PVC (occasional), RBBB, other (normal axis) Comparison ECG Date: 01/16/17 Change: no significant change ED Course 1834: The patient was evaluated in room A2. A complete history and physical exam was performed. 2229: Benadryl Cap 25mg PO, Dexamethasone Sodium Phosphate 10mg IV 2234: I reevaluated the patient. Discussed results and discharge instructions: He verbalized understanding and agreement. The patient is ready for discharge. Medical Decision I reviewed the patient's past medical history, medications, and the nursing notes as described above. Differential diagnoses include: viral syndrome, embolic disease, peripheral vascular disease, cellulitis, and tick borne disease. The patient is a 77-year-old gentleman with a past medical history of CHF with EF of 35%, fib on Coumadin presents to the emergency department with 3 weeks of petechial rash in the lower extremities and black discoloration of his great toe per history of present illness. On arrival the patient is in no acute distress, afebrile with stable vital signs. The patient does have petechiae in the anterior lower legs but otherwise no ttp, warmth or crepitus. He does have blackened discoloration of the great toe, but otherwise denies any pain or loss of sensation. INR 3.2, H&H at baseline, creatinine 1.5 at baseline. UA dirty and patient without urinary sx so will wait for cultures. BNP 6000s but no recent priors and given patient's EF of 35% not particularly abnormal. Chest x- ray with venous congestion however patient denies any respiratory symptoms and is sating >95% on RA. CTA with BLE runnoff negative for significant occlusion but full assessment of pedal vasculature limited. Of note, there was an incidental finding of 2.9cm renal mass concerning for renal cell carcinoma.. Xray unremarkable. Great toe findings most c/w ischemic ulcer however given CTA with significant occlusion and improvement over past several days per patient, no indication for emergent intervention at time. Moreover, patient is already on Coumadin. CM assisting to arrange prompt outpatient vascular and urology f/ u. Findings and plan for follow-up reviewed with patient. Patient agreeable and d/c'd per discharge instructions. Medication Reconcilliation Current Medication List: was personally reviewed by ut Blood Pressure Screening Patient's blood pressure: Elevated blood pressure Follow up with doctor. Impression Primary Impression: Ischemic ulcer of toe Additional Impressions: Petechial rash Kidney lesion, little shell tribe, right Scribe Attestation The scribe's documentation has been prepared under my direction and personally reviewed by me in its entirety. I confirm that the note above accurately reflects all work, treatment, procedures, and medical decision making performed by me. Departure Information Dispostion Home / Self-Care Referrals Shade Thomas III, M.D. (PCP) Eric Valencia M.D. Bay Neil M.D. Forms HOME CARE DOCUMENTATION FORM, IMPORTANT VISIT INFORMATION, WORK / SCHOOL INSTRUCTIONS Patient Instructions Cancer Kidney Renal, Coumadin, Disease Peripheral Vascular Dc, [facility], [facility] Additional Instructions Please follow up with your primary care physician, vascular surgery (Dr. Valencia) , and urology (Dr. Neil) in the next week for re-evaluation. Our case management team will help facilitate these follow up appointments. 1. The discoloration of your toe is likely due to a small clot or decreased blood flow. You will need close follow up with vascular surgery for this. 2. The cause of your rash is unclear at this time however your labs did not show an emergent condition at this time. You were given steroid and Benadryl to help with your symptoms. If not improved your doctor may refer you to dermatology. Repeat Benadryl as needed for itching. Use 1/2 tablet (12.5mg) if experiencing confusion for excessive drowsiness. 3. You were also found to have a 2.9cm lesion on your right kidney that may be cancer. You should follow up with urology promptly regarding this finding. 4. You should also follow up with the coagulation clinic tomorrow to recheck your INR, which was 3.2 today and since you were given a steroid this may cause an additional elevation. Do not take your Coumadin tonight and until reassessed by coagulation clinic. Otherwise, your exam, EKG, chest xray, and lab results did not show signs of an emergent condition at this time. Return to the emergency department for worsening symptoms as described in the accompanying instructions. Problem Qualifiers
[2017-10-12] MEDS ORDERED: TESTOSTERONE GEL TOP (19:07)
[2017-10-12] MEDS ORDERED: FURO-85 PO (19:07)
[2017-10-12] MEDS ORDERED: SERT50TA PO (19:07)
[2017-10-12] MEDS ORDERED: OPTIRAY 320 IV PRN (19:15)
[2017-10-12 19:21] LABS: BASO % 0.9 %; BASO ABS # 0.05 K/uL (0-0.2); COMPLETE YES; EOS % 5.4 %; HEMATOCRIT 28.4 % (42-52); IG% 0.2 %; LYMPH % 20.5 %; MEAN CELL VOLUME 91.9 fL (80-100); MEAN CORPUSCULAR HEMOGLOBIN 29.1 pg (25-34); MEAN CORPUSCULAR HGB CONC 31.7 g/dl (32-36); MEAN PLATELET VOLUME 10.2 fL (7.4-10.4); MONO % 17.7 %; NEUT % 55.3 %; PLATELET COUNT 125 K/uL (130-400); RED BLOOD COUNT 3.09 M/uL (4.7-6.1); WHITE BLOOD COUNT 5.37 K/uL (4.8-10.8)
[2017-10-12 19:29] LABS: INR 3.2 (0.9-1.1); PROTHROMBIN TIME (PATIENT) 36.1 SECONDS (9.0-12.0)
[2017-10-12 19:39] LABS: BUN/CREATININE RATIO 13.9 (10-20); CREATININE 1.52 mg/dl (0.60-1.40); POTASSIUM 3.9 mmol/L (3.5-5.1)
--- NOTE | 2017-10-12 19:56 | DIAGNOSTIC IMAGING REPORT ---
CHEST ONE VIEW PORTABLE CLINICAL HISTORY: Abdominal pain. COMPARISON STUDY: Chest radiograph January 16, 2017. FINDINGS: A single lead left pacer/AICD is in place. No pneumothorax or pleural effusion is present. Moderate cardiomegaly is unchanged. Retrocardiac opacity favors atelectasis. There is pulmonary vascular congestion without overt pulmonary edema. IMPRESSION: 1. Pulmonary vascular congestion. 2. Stable cardiomegaly. 3. Linear retrocardiac opacity which favors atelectasis. Electronically signed by: Rodolfo Cruz M.D. 10/12/2017 7:55 PM Dictated Date/Time: 10/12/2017 7:53 PM
--- NOTE | 2017-10-12 20:07 | DIAGNOSTIC IMAGING REPORT ---
R FOOT MIN 3 VIEWS ROUTINE CLINICAL HISTORY: Plaque great toe. COMPARISON: None FINDINGS: The tarsometatarsal joints are intact. There is no fracture or within the right foot. There is moderate vascular calcification. Mild arthritis is noted within multiple articulations. No significant osseous abnormality of the right great toe is identified. IMPRESSION: 1. No acute osseous abnormality of the right great toe. 2. Moderate vascular calcification. 3. No acute fracture. Electronically signed by: Rodolfo Cruz M.D. 10/12/2017 8:05 PM Dictated Date/Time: 10/12/2017 8:04 PM
[2017-10-12 20:12] LABS: LYME DISEASE AB IGG NEG (NEG); LYME DISEASE AB IGM NEG (NEG)
--- NOTE | 2017-10-12 20:53 | DIAGNOSTIC IMAGING REPORT ---
CT ANGIOGRAPHY OF THE ABDOMEN AND PELVIS WITH BILATERAL LOWER EXTREMITY RUNOFF CLINICAL HISTORY: Black right great toe. COMPARISON STUDY: CT of the abdomen and pelvis August 30, 2013. TECHNIQUE: Helical axial images of the abdomen and pelvis and the lower extremities were obtained during arterial phase following intravenous injection of 115 cc of Optiray 320 IV. Sagittal and coronal reconstructions were viewed as well as maximal intensity projections on an independent 3-D workstation. FINDINGS: The heart is moderately enlarged. Pacer lead is partially imaged. There is a small amount of ascites. The liver may be cirrhotic. The size of the spleen is normal. The adrenal glands and pancreas are normal. A 4 cm left renal cyst is noted. Note is made of a 2.9 x 2.8 cm heterogeneous enhancing lesion within the midpole of the right kidney. There is no hydronephrosis. There is no evidence for a bowel obstruction. Mild anasarca is noted. Caliber and wall thickness of small and large bowel are normal. The caliber of the abdominal aorta is normal. There is moderate atherosclerotic plaque of the abdominal aorta. There is moderate narrowing of the proximal superior mesenteric artery. The bilateral common iliac, external iliac and common femoral arteries are patent. There is mild plaque within the bilateral superficial femoral arteries which are patent. There is no significant stenosis of these vessels. There is moderate plaque within the bilateral calf vessels with three-vessel runoff. Suspected mild to moderate multifocal stenoses of these vessels are present. No abrupt vessel occlusion is identified. The digital vessels of the feet are difficult to assess due to their small size. IMPRESSION: 1. Moderate atherosclerotic plaque of the aortoiliac system and both lower extremities. However, 3 vessel runoff bilaterally. Suspected mild to moderate multifocal stenoses of the bilateral calf vessels with no abrupt vessel occlusion identified however digital vessels of the feet are suboptimally assessed due to their small size. 2. 2.9 cm enhancing lesion within the midpole of the right kidney which is highly suggestive of renal cell carcinoma. Nonemergent urologic consultation is recommended. 3. Small amount of ascites. Possible cirrhosis. Electronically signed by: Rodolfo Cruz M.D. 10/12/2017 8:52 PM Dictated Date/Time: 10/12/2017 8:31 PM
[2017-10-12 21:31] LABS: URINE APPEARANCE CLEAR (CLEAR); URINE BILIRUBIN NEG (NEG); URINE COLOR YELLOW; URINE NITRITE NEG (NEG); URINE SPECIFIC GRAVITY 1.023 (1.000-1.030); UROBILINOGEN POS (NEG); ZZUR CULT IF INDIC CLEAN CATCH YES
[2017-10-12 21:33] LABS: MANUAL MICROSCOPIC REQUIRED? NO; REVIEW REQ? NO
[2017-10-12] MEDS ORDERED: CLINDAMYCIN HCL 150 MG CAP PO ONE (22:15)
[2017-10-12] MEDS ORDERED: DEXAMETHASONE **PF** INJ 10 MG/ML VIAL IV ONE (22:30)
[2017-10-12 23:04] VITALS: BP 150/81; PULSE 68; O2SAT 95
== END 2017-10-12 23:06 | disposition home or self-care (01) ==
LOC: C.EDB 18:26 → C.EDA 23:06
DX: E11.621 Type 2 diabetes mellitus with foot ulcer (principal); L97.909 Non-pressure chronic ulcer of unspecified part of unspecified lower leg with unspecified severity; N28.89 Other specified disorders of kidney and ureter; R23.3 Spontaneous ecchymoses; I48.91 Unspecified atrial fibrillation; I25.10 Atherosclerotic heart disease of native coronary artery without angina pectoris; I50.9 Heart failure, unspecified; I25.5 Ischemic cardiomyopathy; Z85.828 Personal history of other malignant neoplasm of skin; Z95.810 Presence of automatic (implantable) cardiac defibrillator; Z86.73 Personal history of transient ischemic attack (TIA), and cerebral infarction without residual deficits; Z98.49 Cataract extraction status, unspecified eye; Z82.49 Family history of ischemic heart disease and other diseases of the circulatory system; Z79.01 Long term (current) use of anticoagulants; Z79.899 Other long term (current) drug therapy

== ENCOUNTER → 2017-10-20 | Outpatient (CLI) | payer OTHER ==
[~2017-10-20] MED LIST changes: -CLC100 PO; +SERT50TA PO; +SULF800T23; +TESTOSTERONE GEL TOP; -TRAM-10 PO
== END | disposition home or self-care (01) ==
LOC: C.PATHSPEC 17:07
PROVIDERS: ATTEND Urology
DX: N28.89 Other specified disorders of kidney and ureter (principal)

== ENCOUNTER 2017-10-28 12:45 | Emergency (ER) | payer OTHER ==
[~2017-10-28] VITALS: Ht 180.3 cm; Wt 75.3 kg
[~2017-10-28 12:45] MED LIST changes: -SULF800T23
[2017-10-28 12:51] VITALS: TEMP 36.6; Ht 180.3 cm; Wt 75.3 kg
[2017-10-28] MEDS ORDERED: SULF800T23 (13:38)
[2017-10-28 14:04] LABS: BASO % 1.9 %; COMPLETE YES; EOS % 6.4 %; HEMATOCRIT 30.5 % (42-52); IG% 0.2 %; LYMPH % 16.5 %; LYMPH ABS # 0.85 K/uL (1.2-3.4); MEAN CELL VOLUME 93.3 fL (80-100); MEAN CORPUSCULAR HEMOGLOBIN 29.4 pg (25-34); MEAN CORPUSCULAR HGB CONC 31.5 g/dl (32-36); MEAN PLATELET VOLUME 9.3 fL (7.4-10.4); MONO % 16.7 %; NEUT % 58.3 %; PLATELET COUNT 135 K/uL (130-400); RED BLOOD COUNT 3.27 M/uL (4.7-6.1); WHITE BLOOD COUNT 5.14 K/uL (4.8-10.8)
[2017-10-28 14:19] LABS: INR 2.5 (0.9-1.1); PARTIAL THROMBOPLASTIN RATIO 1.7; PROTHROMBIN TIME (PATIENT) 25.7 SECONDS (9.0-12.0)
[2017-10-28 14:21] LABS: URINE APPEARANCE CLEAR (CLEAR); URINE BILIRUBIN NEG (NEG); URINE COLOR YELLOW; URINE EPITHELIAL CELL AUTO 20-30 /lpf (0-5); URINE NITRITE NEG (NEG); URINE PH 5.5 (4.5-7.5); URINE SPECIFIC GRAVITY 1.012 (1.000-1.030); UROBILINOGEN NEG (NEG); ZZUR CULT IF INDIC CLEAN CATCH YES
[2017-10-28 14:25] LABS: MANUAL MICROSCOPIC REQUIRED? NO; REVIEW REQ? NO
--- NOTE | 2017-10-28 14:25 | EMERGENCY ROOM VISIT NOTE ---
History First contact with patient: 13:45 Chief Complaint: ABDOMINAL PAIN Stated Complaint: SHARP PAINS IN STOMACH, INR VERY HIGH ON WEDNESDAY Nursing Triage Summary: Per pts dtr, pt has been having generalized sharp stomach pains starting this week with associated nausea. Pt is on coumadin, recently on abx for UTI which increased his INR to 5.4 on Wednesday, has not had recheck since then. Recently diagnosed with lesion on the right kidney. Pts dtr also verbalizes his BSGs have been "all over the place". History of Present Illness The patient is a 77 year old male who presents to the Emergency Room with complaints of abdominal pain. Lower abdominal pain, worse on left side, severity 6/10 at worse currently he does not have any abdominal pain, cramping feeling, relieved with rest, BM and eating. His daughter feels this most recent episodes starting 4 days prior have been worse and is concerned the patient under plays his symptoms. He has had similar episodes multiple times in the past over months possibly years. He was diagnosed with a UTI 2 weeks previously and placed on antibiotics. and his daughter notes his INR and blood glucose levels have been elevated.. He has also been recently diagnosed with a renal mass on imaging and is being worked up for urology regarding this. He denies any urinary symptoms, dribbling, poor stream, change in color/smell. Review of Systems All other systems reviewed and otherwise negative Past Medical/Surgical History Medical Problems: (1) Atrial fibrillation (2) Basal cell carcinoma (3) CAD (coronary artery disease) (4) Cardiac defibrillator in place (5) CVA (cerebral vascular accident) (6) DM type 2 (diabetes mellitus, type 2) (7) Ischemic cardiomyopathy (8) Squamous cell carcinoma (9) V tach Surgical Problems: (1) History of cataract surgery Family History FH: CAD (coronary artery disease) FATHER ( at age 69) MOTHER ( at age 35) SISTER ( at age 65) Social History Smoking Status: Never Smoker Marital Status: Housing Status: lives with family Current/Historical Medications Scheduled Carvedilol (Carvedilol), 6.25 MG PO BID Clopidogrel Bisulfate (Clopidogrel), 75 MG PO QAM Cyanocobalamin (Vitamin B-12), 1,000 MCG PO DAILY Digoxin (Digoxin), 0.125 MG PO Q2D Ferrous Gluconate (Ferrous Gluconate), 324 MG PO BIDM Furosemide (Lasix), 20 MG PO 4XWK Furosemide (Lasix), 40 MG PO MWF Metformin Hcl (Glucophage), 1,000 MG PO QAM Pantoprazole (Protonix), 40 MG PO DAILY Rosuvastatin Calcium (Crestor), 20 MG PO DAILY Sertraline (Zoloft), 50 MG PO DAILY Warfarin Sod (Coumadin), 5 MG PO SuTuWeThSa@1600 Warfarin Sod (Coumadin), 7.5 MG PO MoFr@1600 [Testosterone Gel], 1 APPLN TOP DAILY Scheduled PRN Nitroglycerin (Nitrostat), 0.4 MG UT UD PRN for Chest Pain Polyethylene (Miralax), 17 GM PO DAILY PRN for Constipation Miscellaneous Medications Sulfa/Trimethoprim (Bactrim Ds 800MG/160MG), TAB Physical Exam Vital Signs Date Time Temp Pulse Resp B/P (MAP) Pulse Ox O2 Delivery O2 Flow Rate FiO2 10/28/17 16:49 65 158/66 96 10/28/17 15:27 67 153/62 95 Room Air 10/28/17 13:56 69 10/28/17 12:51 36.6 65 18 128/63 98 Room Air Physical Exam General Appearance: WD/WN, no apparent distress Head: normocephalic, atraumatic Eyes: normal inspection, PERRL, EOMI ENT: normal ENT inspection, pharynx normal Neck: supple, no adenopathy, thyroid normal, no carotid bruits, trachea midline, + JVD Respiratory/Chest: chest non-tender, lungs clear, normal breath sounds, no respiratory distress, no accessory muscle use Cardiovascular: no murmur, normal peripheral pulses, + irregularly irregular Abdomen / GI: normal bowel sounds, non tender (non distended), soft, normal rectal exam, occult blood negative Back: no CVA tenderness Extremities: no calf tenderness, normal capillary refill, no pedal edema 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 COMPARISON STUDY: Abdominal CT dated 10/12/2017. TECHNIQUE: CT scan of the abdomen and pelvis is performed from the lung bases to the proximal femora. Images are reviewed in the axial, sagittal, and coronal planes. IV contrast was not administered for this examination as per the referring clinician. Note that the examination was performed in suboptimal fashion without oral and IV contrast. A dose lowering technique was utilized adhering to the principles of ALARA. CT DOSE: 375.87 mGy.cm FINDINGS: Lung bases: The heart is markedly enlarged and without pericardial effusion. Pacemaker leads are noted. The coronary arteries are densely calcified. There is diminished attenuation of the cardiac blood pool as compared to the myocardium suggesting anemia. A tiny hiatal hernia is identified. Emphysematous change is suggested. There is dependent atelectasis. No airspace consolidation is seen typical for pneumonia and there is no pleural effusion. Liver: The unenhanced liver is cirrhotic in morphology and heterogeneous in attenuation. There is nodularity of the surface contour. There is no intrahepatic biliary ductal dilatation. There are scattered calcified hepatic granulomas. Gallbladder: Unremarkable. Spleen: Normal in size and attenuation. Pancreas: The unenhanced pancreas is moderately atrophic and grossly unremarkable. Adrenal glands: Unremarkable. Kidneys: The unenhanced kidneys are atrophic and without hydronephrosis. There are no renal calculi identified. A 4 cm exophytic cyst arises from the left kidney. A 2.9 cm complex mass arising from the interpolar right kidney is unchanged from recent prior studies. Abdominal vasculature: The abdominal aorta is normal in course and caliber noting advanced atherosclerotic calcification. Bowel: There is moderate colonic fecal retention. No bowel obstruction is seen. There is moderate colonic diverticulosis without CT evidence of acute diverticulitis. The appendix is well-visualized and normal. Peritoneum and retroperitoneum: There is trace free fluid in the pelvis. No intraperitoneal free air is seen. No retroperitoneal hemorrhage is seen. Lymphadenopathy: None. Pelvic viscera: The prostate gland is heterogeneous. The bladder is distended. The bladder wall is mildly thickened and trabeculated suggesting chronic outlet obstruction. Skeletal structures: The skeletal structures are osteopenic. There is a mild superior endplate compression deformity of T12. Mild lumbosacral spondylosis is observed. No lytic or blastic lesions are seen. IMPRESSION: 1. Suboptimal examination without oral and IV contrast. 2. There are no acute infectious or inflammatory findings in the abdomen or pelvis. 3. Moderate constipation. No bowel obstruction is seen. 4. Moderate colonic diverticulosis without CT evidence of acute diverticulitis. 5. A 2.9 cm complex mass arising from the interpolar right kidney is unchanged from 10/12/2017. This was shown to represent an enhancing lesion and is consistent with renal cell carcinoma. 6. Marked cardiomegaly and suspect emphysema. 7. Cirrhotic liver morphology. There is trace free fluid in the pelvis. 8. Additional findings as above. Electronically signed by: Lam Adhikari M.D. 10/28/2017 3:41 PM Dictated Date/Time: 10/28/2017 3:33 PM Laboratory Results 10/28/17 13:50 Red Blood Count 3.27, Mean Corpuscular Volume 93.3, Mean Corpuscular Hemoglobin 29.4, Mean Corpuscular Hemoglobin Concent 31.5, Mean Platelet Volume 9.3, Neutrophils (%) (Auto) 58.3, Lymphocytes (%) (Auto) 16.5, Monocytes (%) (Auto) 16.7, Eosinophils (%) (Auto) 6.4, Basophils (%) (Auto) 1.9, Neutrophils # (Auto ) 2.99, Lymphocytes # (Auto) 0.85, Monocytes # (Auto) 0.86, Eosinophils # (Auto ) 0.33, Basophils # (Auto) 0.10 10/28/17 13:50 Test 10/28/17 13:45 10/28/17 13:50 Urine Color YELLOW Urine Appearance CLEAR (CLEAR) Urine pH 5.5 (4.5-7.5) Urine Specific [place] 1.012 (1.000-1.030) Urine Protein TRACE (NEG) Urine Glucose (UA) NEG (NEG) Urine Ketones NEG (NEG) Urine Occult Blood TRACE (NEG) Urine Nitrite NEG (NEG) Urine Bilirubin NEG (NEG) Urine Urobilinogen NEG (NEG) Urine Leukocyte Esterase SMALL (NEG) Urine WBC (Auto) 10-30 /hpf (0-5) Urine RBC (Auto) 0-4 /hpf (0-4) Urine Hyaline Casts (Auto) 0 /lpf (0-5) Urine Epithelial Cells (Auto) 20-30 /lpf (0-5) Urine Bacteria (Auto) NEG (NEG) White Blood Count 5.14 K/uL (4.8-10.8) Red Blood Count 3.27 M/uL (4.7-6.1) Hemoglobin 9.6 g/dL (14.0-18.0) Hematocrit 30.5 % (42-52) Mean Corpuscular Volume 93.3 fL (80-100) Mean Corpuscular Hemoglobin 29.4 pg (25-34) Mean Corpuscular Hemoglobin Concent 31.5 g/dl (32-36) Platelet Count 135 K/uL (130-400) Mean Platelet Volume 9.3 fL (7.4-10.4) Neutrophils (%) (Auto) 58.3 % Lymphocytes (%) (Auto) 16.5 % Monocytes (%) (Auto) 16.7 % Eosinophils (%) (Auto) 6.4 % Basophils (%) (Auto) 1.9 % Neutrophils # (Auto) 2.99 K/uL (1.4-6.5) Lymphocytes # (Auto) 0.85 K/uL (1.2-3.4) Monocytes # (Auto) 0.86 K/uL (0.11-0.59) Eosinophils # (Auto) 0.33 K/uL (0-0.5) Basophils # (Auto) 0.10 K/uL (0-0.2) RDW Standard Deviation 52.5 fL (36.4-46.3) RDW Coefficient of Variation 15.4 % (11.5-14.5) Immature Granulocyte % (Auto) 0.2 % Immature Granulocyte # (Auto) 0.01 K/uL (0.00-0.02) Prothrombin Time 25.7 SECONDS (9.0-12.0) Prothromb Time International Ratio 2.5 (0.9-1.1) Activated Partial Thromboplast Time 43.6 SECONDS (21.0-31.0) Partial Thromboplastin Ratio 1.7 Anion Gap 3.0 mmol/L (3-11) Est Creatinine Clear Calc Drug Dose 32.7 ml/min Estimated GFR () 36.4 Estimated GFR (Non- 31.4 BUN/Creatinine Ratio 13.8 (10-20) Calcium Level 9.2 mg/dl (8.5-10.1) Total Bilirubin 0.8 mg/dl (0.2-1) Aspartate Amino Transf (AST/SGOT) 28 U/L (15-37) Alanine Aminotransferase (ALT/SGPT) 27 U/L (12-78) Alkaline Phosphatase 95 U/L (45-117) Total Protein 8.1 gm/dl (6.4-8.2) Albumin 4.0 gm/dl (3.4-5.0) Globulin 4.1 gm/dl (2.5-4.0) Albumin/Globulin Ratio 1.0 (0.9-2) Lipase 264 U/L (73-393) Medications Administered Medications (Trade) Dose Ordered Sig/Magaly Route Start Time Stop Time Status Last Admin Dose Admin Sodium Chloride 500 ml @ 999 mls/hr Q31M STAT IV 10/28/17 14:31 10/28/17 15:01 DC 10/28/17 14:44 999 MLS/HR ECG Rate (beats per minute): 61 Rhythm: atrial fibrillation, other (ventricular paced) Change: no significant change (28 October 2017) ED Course Complete history and physical performed by myself Patient was discussed with Dr Em who separately performed history and physical Patient was reassessed multiple times with no reoccurrence in his abdominal pain during his ER visit His labs and imaging were discussed with the patient and his daughter before discharge. Medical Decision Prior records/ancillary studies reviewed. Triage Nursing notes reviewed. Additional history obtained from patient and his daughter. The patient's history was concerning for abdominal pain. Differential diagnosis: Etiologies such as appendicitis, diverticulitis, PUD, biliary pathology, UTI, pancreatitis, obstruction, mesenteric ischemia, aortic pathology, infections, inflammatory bowel disease, renal colic, as well as others were entertained. Physical examination findings: As above. ER treatment provided: 500 ML NSS bolus Diagnostics interpreted by me: ECG: ventricular paced rhythm without discernible p waves suggestive of atrial fibrillation The labs revealed stable anemia, elevated Cr from baseline. Imaging studies: CT showed moderate constipation, Moderate colonic diverticulosis without CT evidence of acute diverticulitis, right renal mass as previously noted, liver cirrhosis By the evaluation outlined above emergent etiologies such as appendicitis, diverticulitis, PUD, biliary pathology, UTI, pancreatitis, obstruction, mesenteric ischemia, aortic pathology, infections, inflammatory bowel disease, renal colic, as well as others were deemed relatively unlikely. The patient and his daughter was informed about the findings as listed above. All questions were answered and they were pleased with the management plan. Return instructions were outlined and the patient was discharged in stable condition. He should reduce his lasix to 20mg daily until follow up with his primary care physician or Dr Alexander. He was provided with a script for repeat BMP in 4 days (results to his PCP). Recommended he increase his fiber in his diet to help with constipation. Referral: The patient was referred back to their primary care physician or Dr Alexander for follow-up in the next week for a recheck of the current condition. Medication Reconcilliation Current Medication List: was personally reviewed by me Blood Pressure Screening Patient's blood pressure: Elevated blood pressure Blood pressure disposition: Elevated BP felt to be situational, Referred to PCP Impression Primary Impression: Constipation Additional Impressions: Dehydration Elevated serum creatinine Departure Information Dispostion Home / Self-Care Condition GOOD Referrals Shade Thomas III, M.D. (PCP) Rodrigo Alexander M.D. Patient Instructions [facility] Additional Instructions You were evaluated in the ER for abdominal pain. CT scan of your abdomen and pelvis showed moderate constipation which may be the cause of your intermittent abdominal pain symptom. Incidentally your liver also appeared cirrhotic and you should follow up with your primary care physician regarding this. Lab tests showed you kidney function is mildly worse than previously. I would recommend reducing your furosemide dose to 20mg daily until follow up with your primary care physician within the next week. Please also have a repeat lab work as per given script before this appointment. Continue all other medications as prescribed. Please return to the ER if worsening abdominal pain, vomiting, fever or concerned. Resident Tracking Resident Involvement: Resident Care Provided Care Provided: Adult ED Problem Qualifiers Primary Impression: Constipation Constipation type: unspecified constipation type Qualified Codes: K59.00 - Constipation, unspecified
[2017-10-28 14:27] LABS: BUN/CREATININE RATIO 13.8 (10-20); CALCIUM 9.2 mg/dl (8.5-10.1); CREATININE 1.98 mg/dl (0.60-1.40); POTASSIUM 4.1 mmol/L (3.5-5.1)
[2017-10-28] MEDS ORDERED: SODIUM CHLORIDE 0.9% 500ML 500 ML IV STA (14:31)
--- NOTE | 2017-10-28 15:42 | DIAGNOSTIC IMAGING REPORT ---
CT SCAN OF THE ABDOMEN AND PELVIS WITHOUT IV CONTRAST CLINICAL HISTORY: Generalized abdominal pain. COMPARISON STUDY: Abdominal CT dated 10/12/2017. TECHNIQUE: CT scan of the abdomen and pelvis is performed from the lung bases to the proximal femora. Images are reviewed in the axial, sagittal, and coronal planes. IV contrast was not administered for this examination as per the referring clinician. Note that the examination was performed in suboptimal fashion without oral and IV contrast. A dose lowering technique was utilized adhering to the principles of ALARA. CT DOSE: 375.87 mGy.cm FINDINGS: Lung bases: The heart is markedly enlarged and without pericardial effusion. Pacemaker leads are noted. The coronary arteries are densely calcified. There is diminished attenuation of the cardiac blood pool as compared to the myocardium suggesting anemia. A tiny hiatal hernia is identified. Emphysematous change is suggested. There is dependent atelectasis. No airspace consolidation is seen typical for pneumonia and there is no pleural effusion. Liver: The unenhanced liver is cirrhotic in morphology and heterogeneous in attenuation. There is nodularity of the surface contour. There is no intrahepatic biliary ductal dilatation. There are scattered calcified hepatic granulomas. Gallbladder: Unremarkable. Spleen: Normal in size and attenuation. Pancreas: The unenhanced pancreas is moderately atrophic and grossly unremarkable. Adrenal glands: Unremarkable. Kidneys: The unenhanced kidneys are atrophic and without hydronephrosis. There are no renal calculi identified. A 4 cm exophytic cyst arises from the left kidney. A 2.9 cm complex mass arising from the interpolar right kidney is unchanged from recent prior studies. Abdominal vasculature: The abdominal aorta is normal in course and caliber noting advanced atherosclerotic calcification. Bowel: There is moderate colonic fecal retention. No bowel obstruction is seen. There is moderate colonic diverticulosis without CT evidence of acute diverticulitis. The appendix is well-visualized and normal. Peritoneum and retroperitoneum: There is trace free fluid in the pelvis. No intraperitoneal free air is seen. No retroperitoneal hemorrhage is seen. Lymphadenopathy: None. Pelvic viscera: The prostate gland is heterogeneous. The bladder is distended. The bladder wall is mildly thickened and trabeculated suggesting chronic outlet obstruction. Skeletal structures: The skeletal structures are osteopenic. There is a mild superior endplate compression deformity of T12. Mild lumbosacral spondylosis is observed. No lytic or blastic lesions are seen. IMPRESSION: 1. Suboptimal examination without oral and IV contrast. 2. There are no acute infectious or inflammatory findings in the abdomen or pelvis. 3. Moderate constipation. No bowel obstruction is seen. 4. Moderate colonic diverticulosis without CT evidence of acute diverticulitis. 5. A 2.9 cm complex mass arising from the interpolar right kidney is unchanged from 10/12/2017. This was shown to represent an enhancing lesion and is consistent with renal cell carcinoma. 6. Marked cardiomegaly and suspect emphysema. 7. Cirrhotic liver morphology. There is trace free fluid in the pelvis. 8. Additional findings as above. Electronically signed by: Lam Adhikari M.D. 10/28/2017 3:41 PM Dictated Date/Time: 10/28/2017 3:33 PM
[2017-10-28 16:49] VITALS: BP 158/66; PULSE 65; O2SAT 96
--- NOTE | 2017-10-28 19:47 | EMERGENCY ROOM VISIT NOTE ---
ED Visit Note First contact with patient: 13:45 Resident Physician Supervision Note: Dr. Sr was resident physician during care of patient. I separately evaluated patient and did history and exam. I discussed the case with the resident and generally agree with the findings and plan. 77 yr old male with significant LLQ abdominal pain this morning. Currently looks well and in no distress. Exam benign. Did recently have elevated INR thus with abdo pain felt imaging reasonable which did not demonstrate obvious areas of bleeding. INR now therapeutic. Mild renal insufficiency which is around his baseline though will give fluid bolus and advised having repeat check with PCP. Otherwise looks well and in no distress. Diagnosis: LLQ abdominal Pain Renal insufficiency Documented By: Adonay Em MD
== END 2017-10-28 16:52 | disposition home or self-care (01) ==
LOC: C.EDB 12:46
DX: K59.00 Constipation, unspecified (principal); E86.0 Dehydration; N28.9 Disorder of kidney and ureter, unspecified; R79.89 Other specified abnormal findings of blood chemistry; Z79.01 Long term (current) use of anticoagulants; I48.91 Unspecified atrial fibrillation; Z85.828 Personal history of other malignant neoplasm of skin; I25.10 Atherosclerotic heart disease of native coronary artery without angina pectoris; Z95.810 Presence of automatic (implantable) cardiac defibrillator; Z86.73 Personal history of transient ischemic attack (TIA), and cerebral infarction without residual deficits; E11.9 Type 2 diabetes mellitus without complications; I25.5 Ischemic cardiomyopathy; Z98.49 Cataract extraction status, unspecified eye; Z82.49 Family history of ischemic heart disease and other diseases of the circulatory system; Z79.899 Other long term (current) drug therapy

== ENCOUNTER → 2017-11-02 | Outpatient (CLI) | payer OTHER ==
[~2017-11-02] MED LIST changes: +SULF800T23
--- NOTE | 2017-11-02 08:54 | DIAGNOSTIC IMAGING REPORT ---
(CHEST) THORAX WITHOUT CT DOSE: 393.03 mGy.cm CLINICAL HISTORY: 77 years-old Male with N28.89 Renal mass noncontrast due to elevated creatinine. 2.9 cm complex mass of the interpolar right kidney suggesting renal cell carcinoma TECHNIQUE: Multiaxial CT images of the chest were performed without contrast. A dose lowering technique was utilized adhering to the principles of ALARA. COMPARISON: CT abdomen and pelvis 10/28/2017 and 10/12/2017. FINDINGS: Mildly heterogeneous thyroid without dominant nodule identified. Nonspecific mildly enlarged precarinal lymph node measures 1.6 x 1.1 cm on image 110 series 4 without additional adenopathy identified by CT size criteria. Moderate multichamber cardiac enlargement. Left pectoral pacer/AICD is noted with leads overlying the right ventricle. Three-vessel distribution of coronary arterial disease noted. Calcifications of the aortic annulus are present. Mild fusiform dilation of the ascending thoracic aorta, 4.1 x 4.1 cm moderate atherosclerosis of the thoracic aorta. Dilation of the main pulmonary artery, 3.9 cm suggests pulmonary arterial hypertension. Mild biapical pleural-parenchymal scarring without pneumothorax or pleural effusion. Linear subsegmental bibasilar opacities suggest areas of scarring/atelectasis. There are no suspicious pulmonary nodules or masses identified to suggest metastasis to the lungs. Central airways are patent. There are calcifications of the tracheobronchial tree. 2.9 cm solid mass of the interpolar right kidney redemonstrated. Probable cyst of the interpolar left kidney measures 3.8 cm. Mild symmetric bilateral gynecomastia. No focal soft tissue abnormality. No suspicious lytic or blastic bony lesions identified to suggest metastasis. Bones of the chest appear intact without fracture or dislocation. Multilevel endplate spurring of the thoracic spine with multilevel facet arthropathy. IMPRESSION: 1. No acute intrathoracic abnormality identified. No suspicious pulmonary nodules or masses identified to suggest pulmonary metastasis. 2. Mildly enlarged precarinal lymph node without additional pathologic adenopathy identified, likely physiologic. 3. Mild fusiform dilation of the ascending thoracic aorta, 4.1 cm. 4. Dilation of the main pulmonary artery suggests pulmonary arterial hypertension. 5. Cardiomegaly. 6. 2.9 cm solid mass of the lateral aspect interpolar right kidney redemonstrated which correlated with avidly enhancing lesion on study dated 10/12/2017 suggesting renal cell carcinoma. Electronically signed by: Samy Lara M.D. 11/02/2017 8:52 AM Dictated Date/Time: 11/02/2017 8:43 AM
== END | disposition home or self-care (01) ==
LOC: C.CTS 08:28
PROVIDERS: ATTEND Urology
DX: N28.89 Other specified disorders of kidney and ureter (principal); R94.4 Abnormal results of kidney function studies

== ENCOUNTER 2018-06-16 20:35 | Inpatient (IN) | payer OTHER ==
[~2018-06-16] VITALS: Ht 177.8 cm; Wt 80.6 kg
[~2018-06-16 20:35] MED LIST changes: -CARV6.25 PO; -CLOP1TAB15 PO; -CLOTRIMAZOLE 1% TOP; -ENOX80IN SQ; -KFL500 PO; -WARF5TAB7 PO
[2018-06-16 22:03] LABS: BASO % 0.4 %; BASO ABS # 0.03 K/uL (0-0.2); EOS % 3.3 %; EOS ABS # 0.25 K/uL (0-0.5); HEMATOCRIT 27.4 % (42-52); HEMOGLOBIN 8.5 g/dL (14.0-18.0); IG# 0.01 K/uL (0.00-0.02); LYMPH % 14.5 %; LYMPH ABS # 1.09 K/uL (1.2-3.4); MEAN CELL VOLUME 94.2 fL (80-100); MEAN CORPUSCULAR HEMOGLOBIN 29.2 pg (25-34); MEAN PLATELET VOLUME 10.1 fL (7.4-10.4); MONO % 14.9 %; MONO ABS # 1.12 K/uL (0.11-0.59); NEUT % 66.8 %; PLATELET COUNT 135 K/uL (130-400); RED CELL DISTRIBUTION WIDTH CV 16.3 % (11.5-14.5); RED CELL DISTRIBUTION WIDTH SD 56.7 fL (36.4-46.3)
[2018-06-16 22:12] LABS: INR 2.8 (0.9-1.1)
[2018-06-16 22:23] LABS: CALCIUM 8.7 mg/dl (8.5-10.1); CREATININE 1.43 mg/dl (0.60-1.40); POTASSIUM 3.9 mmol/L (3.5-5.1)
[2018-06-17] MEDS ORDERED: ALUMINUM/MAGNESIUM/SIMETH (MAALOX MAX) 30 ML UDC PO PRN (00:15)
[2018-06-17] MEDS ORDERED: ACETAMINOPHEN 325 MG TAB PO PRN (00:15)
[2018-06-17] MEDS ORDERED: POLYETHYLENE (MIRALAX) 17 GM PACK PO PRN (00:15)
[2018-06-17] MEDS ORDERED: NITROGLYCERIN 0.4 MG SL PER TAB CHARGE UT PRN (00:15)
[2018-06-17] MEDS ORDERED: ONDANSETRON INJ 2 MG/ML 2 ML VIAL IV PRN (00:15)
--- NOTE | 2018-06-17 01:31 | EMERGENCY ROOM VISIT NOTE ---
History Report prepared by Eddie: Brayan Grady Under the Supervision of: Dr. Edwin Hamm D.O. First contact with patient: 21:18 Chief Complaint: BLEEDING Stated Complaint: BLEEDING OUT OF PENIS HAS CATHERTOR Nursing Triage Summary: Patient had procedure at urology today and browning catheter was placed. has had a total of about 200ml blood output and leaking blood at meatus History of Present Illness The patient is a 78 year old male who presents to the Emergency Room with complaints of persistent bleeding from his urethral catheter that began today. The patient states that he had a Browning catheter placed by Dr. Galarza today at 1700. The patient is accompanied by his daughter who states that the patient had it placed due to urethral stenosis. She states that today the patient has been bleeding from the catheter. She reports she believes the bleeding is from the penis. The patient states he has put out one bag of urine so far. He notes he does not feel like he has to urinate right now. He does report a history of atrial fibrillation and heart stents, which he takes Coumadin and Plavix for. Source of History: patient, family Onset: today Position: other (catheter) Quality: other (bleeding) Timing: other (persistent) Review of Systems See HPI for pertinent positives & negatives. A total of 10 systems reviewed and were otherwise negative. Past Medical & Surgical Medical Problems: (1) Atrial fibrillation (2) Basal cell carcinoma (3) CAD (coronary artery disease) (4) Cardiac defibrillator in place (5) CVA (cerebral vascular accident) (6) DM type 2 (diabetes mellitus, type 2) (7) Gross hematuria (8) Ischemic cardiomyopathy (9) Squamous cell carcinoma (10) V tach Surgical Problems: (1) History of cataract surgery Family History FH: CAD (coronary artery disease) FATHER ( at age 69) MOTHER ( at age 35) SISTER ( at age 65) Social History Smoking Status: Never Smoker Marital Status: Housing Status: lives with family Current/Historical Medications Scheduled Carvedilol (Carvedilol), 6.25 MG PO BID Clopidogrel Bisulfate (Clopidogrel), 75 MG PO QAM Cyanocobalamin (Vitamin B-12), 1,000 MCG PO DAILY Digoxin (Digoxin), 0.125 MG PO Q2D Ferrous Gluconate (Ferrous Gluconate), 324 MG PO DAILY Furosemide (Lasix), 20 MG PO DAILY Metformin Hcl (Glucophage), 1,000 MG PO QAM Pantoprazole (Protonix), 40 MG PO DAILY Rosuvastatin Calcium (Crestor), 20 MG PO DAILY Sertraline (Zoloft), 50 MG PO DAILY Warfarin Sod (Coumadin), 5 MG PO SuTuWeThSa@1600 Warfarin Sod (Coumadin), 7.5 MG PO MoFr@1600 [Testosterone Gel], 1 APPLN TOP DAILY Scheduled PRN Nitroglycerin (Nitrostat), 0.4 MG UT UD PRN for Chest Pain Allergies Coded Allergies: Fentanyl (Verified Allergy, Severe, Decreased oxygen saturation, low RR, unresponsive, 06/16/18) Patient sedated for emergent heart catheterization. Patient given IV versed and fentanyl per MD orders. Patient given IV Versed (1mg+1mg) and Fentanyl (50mcg). Patient oxygen saturation drops into the 50's and patient becomes unresponsive with low respiratory rate, requiring ambu bag ventilation and the administration of Narcan and Romazicon. Midazolam (Verified Allergy, Severe, Decreased oxygen saturation, low RR, unresponsive., 06/16/18) Patient sedated for emergent heart catheterization. Patient given IV versed and fentanyl per MD orders. Patient given IV Versed (1mg+1mg) and Fentanyl (50 mcg). Patient oxygen saturation drops into the 50's and patient becomes unresponsive with low respiratory rate, requiring ambu bag ventilation and the administration of Narcan and Ramazicon. Codeine (Verified Allergy, Unknown, GI SYMPTOMS, 06/16/18) BRIANA Inhibitors (Verified Adverse Reaction, Mild, cough,TAKES BENAZEPRIL PER MED REC, 06/16/18) Cefuroxime (Verified Adverse Reaction, Mild, GI SYMPTOMS, 06/16/18) Physical Exam Vital Signs Date Time Temp Pulse Resp B/P (MAP) Pulse Ox O2 Delivery O2 Flow Rate FiO2 06/17/18 00:14 73 18 157/97 94 Room Air 06/16/18 22:32 95 20 146/87 95 Room Air 06/16/18 20:39 36.7 72 18 165/75 96 Room Air Physical Exam GENERAL: Sitting up in bed, alert, well appearing, well nourished, no distress, non-toxic EYE EXAM: normal conjunctiva. OROPHARYNX: no exudate, no erythema, lips, buccal mucosa, and tongue normal and mucous membranes are moist NECK: supple, no nuchal rigidity, no adenopathy, non-tender LUNGS: Clear to auscultation. Normal chest wall mechanics HEART: Systolic ejection murmur. Irregularly irregular rhythm. CHEST: Pacemaker in upper left chest. ABDOMEN: abdomen soft, non-tender, normo-active bowel sounds, no masses, no rebound or guarding. BACK: Back is symmetrical on inspection and there is no deformity, no midline tenderness, no CVA tenderness. : Browning in place with small amount of blood oozing from urethra meatus. Blood in Browning bag. SKIN: no rashes and no bruising UPPER EXTREMITIES: upper extremities are grossly normal. LOWER EXTREMITIES: No pitting edema. NEURO EXAM: Normal sensorium, cranial nerves II-XII grossly intact, normal speech, no gross weakness of arms, no gross weakness of legs. Medical Decision & Procedures Laboratory Results 06/16/18 21:47 Red Blood Count 2.91, Mean Corpuscular Volume 94.2, Mean Corpuscular Hemoglobin 29.2, Mean Corpuscular Hemoglobin Concent 31.0, Mean Platelet Volume 10.1, Neutrophils (%) (Auto) 66.8, Lymphocytes (%) (Auto) 14.5, Monocytes (%) (Auto) 14.9, Eosinophils (%) (Auto) 3.3, Basophils (%) (Auto) 0.4, Neutrophils # (Auto ) 5.00, Lymphocytes # (Auto) 1.09, Monocytes # (Auto) 1.12, Eosinophils # (Auto ) 0.25, Basophils # (Auto) 0.03 06/16/18 21:47 Test 06/16/18 21:47 White Blood Count 7.50 K/uL (4.8-10.8) Red Blood Count 2.91 M/uL (4.7-6.1) Hemoglobin 8.5 g/dL (14.0-18.0) Hematocrit 27.4 % (42-52) Mean Corpuscular Volume 94.2 fL (80-100) Mean Corpuscular Hemoglobin 29.2 pg (25-34) Mean Corpuscular Hemoglobin Concent 31.0 g/dl (32-36) Platelet Count 135 K/uL (130-400) Mean Platelet Volume 10.1 fL (7.4-10.4) Neutrophils (%) (Auto) 66.8 % Lymphocytes (%) (Auto) 14.5 % Monocytes (%) (Auto) 14.9 % Eosinophils (%) (Auto) 3.3 % Basophils (%) (Auto) 0.4 % Neutrophils # (Auto) 5.00 K/uL (1.4-6.5) Lymphocytes # (Auto) 1.09 K/uL (1.2-3.4) Monocytes # (Auto) 1.12 K/uL (0.11-0.59) Eosinophils # (Auto) 0.25 K/uL (0-0.5) Basophils # (Auto) 0.03 K/uL (0-0.2) RDW Standard Deviation 56.7 fL (36.4-46.3) RDW Coefficient of Variation 16.3 % (11.5-14.5) Immature Granulocyte % (Auto) 0.1 % Immature Granulocyte # (Auto) 0.01 K/uL (0.00-0.02) Hypochromasia PRESENT Ovalocytes 1+ Prothrombin Time 28.5 SECONDS (9.0-12.0) Prothromb Time International Ratio 2.8 (0.9-1.1) Anion Gap 5.0 mmol/L (3-11) Est Creatinine Clear Calc Drug Dose 43.2 ml/min Estimated GFR () 53.6 Estimated GFR (Non- 46.3 BUN/Creatinine Ratio 14.1 (10-20) Calcium Level 8.7 mg/dl (8.5-10.1) Laboratory results per my review. ED Course ED COURSE: Vital signs were reviewed and showed hypertension The patients medical record was reviewed The above diagnostic studies were performed and reviewed. ED treatments and interventions as stated above. 8: The patient was evaluated in room A09B. A complete history and physical examination was performed. 2248: Upon reevaluation, the patient is resting comfortably. I discussed my findings with the patient and he understands and agrees with the treatment plan. Based on the patients age, coexisting illnesses, exam and lab findings the decision to treat as an inpatient was made. The patient remained stable while under my care. The patient will be evaluated for further management. 2312: I discussed the patients case with Dr. Keene, [facility] Hospitalist. He understands the patient's condition and agrees to accept the patient. The patient will evaluated for further management and care. Medical Decision Differential includes trauma, postop bleeding, and UTI. Patient is a 78-year-old male who presents the ER who just had surgery for urethral stenosis by Dr. Galarza today. Patient is taking Coumadin and Plavix. Labs were obtained and showed a hemoglobin of 8.5. Baseline appears to be around 9.5 last checked October. Patient has no other complaints at this time. Browning is draining. CBC along with BMP was otherwise unremarkable. Discussed with urology and they preferred to have him watched overnight. Discussed with internal medicine for observation. Medication Reconcilliation Current Medication List: was personally reviewed by me Blood Pressure Screening Patient's blood pressure: Elevated blood pressure Blood pressure disposition: Elevated BP felt to be situational Consults Time Called: 2311 Consulting Physician: Reagan Kang [facility] Hospitalist Returned Call: 2311 I discussed the patients case with Reagan Kang Hospitalist. He understands the patient's condition and agrees to accept the patient. The patient will evaluated for further management and care. Impression Primary Impression: Post-op bleeding Additional Impression: Anemia Scribe Attestation The scribe's documentation has been prepared under my direction and personally reviewed by me in its entirety. I confirm that the note above accurately reflects all work, treatment, procedures, and medical decision making performed by me. Departure Information Dispostion Being Evaluated By Hospitalist Referrals Shade Thomas III, M.D. (PCP) Patient Instructions My [facility] Problem Qualifiers Primary Impression: Post-op bleeding Surgical complication system/body Area: genitourinary Procedure type: genitourinary Qualified Codes: N99.820 - Postprocedural hemorrhage of a genitourinary system organ or structure following a genitourinary system procedure Additional Impression: Anemia Anemia type: unspecified type Qualified Codes: D64.9 - Anemia, unspecified
--- NOTE | 2018-06-17 01:34 | HISTORY & PHYSICAL EXAMINATION ---
DATE OF ADMISSION: 06/17/2018 CHIEF COMPLAINT: Gross hematuria. HISTORY OF PRESENT ILLNESS: This is a 78-year-old male with past medical history significant for atrial fibrillation, CAD status post stent, history of nonsustained ventricular tachycardia, diabetes, history of systolic CHF, status post pacemaker, hypogonadism, chronic kidney stage III, iron deficiency anemia, history of right renal mass about 2.9 cm, most likely clear cell carcinoma status post, CT-guided cryoablation in 11/2017, follows with hem/onc, history of hematuria and because of hematuria he had a cystoscopy done today by urology, but the cystoscopic tube was not able to pass into bladder because he had severe distal ureteral stricture, but urology was able to place a catheter in the bladder and was discharged and was supposed to follow with him next week. But after going home, he started to have bleeding, blood in his catheter bag, so he came to the ER, and urology wanted him to observed overnight. Denies any abdominal pain. He has some burning sensation whenever he is passing urine. Denies any fever, chills, no headaches, no blurred vision, no dizziness, no earache, has some runny nose, has some occasional cough, no sore throat, no chest pain, no shortness of breath. Appetite is okay. Walks with the help of cane. Normal bowel movements. Lives with his daughter. Currently, resting comfortable and hemodynamically stable. ALLERGIES: BRIANA INHIBITORS, CEFTIN, CODEINE, FENTANYL, MIDAZOLAM. PAST MEDICAL HISTORY: As mentioned above. PAST SURGICAL HISTORY: Cardiac catheterization, CT-guided tissue ablation of the right renal mass, status post defibrillator, cataract surgery. MEDICATIONS: The patient is on testosterone patch daily, metformin 1000 mg p.o. daily, Crestor 20 mg p.o. daily, Cozaar 25 mg p.o. daily, Coumadin as directed, Protonix 40 mg p.o. daily, Lasix 20 mg p.o. daily, Coreg 6.25 mg p.o. daily, Plavix 75 mg p.o. daily, Zoloft 50 mg p.o. daily, digoxin 125 mcg p.o. every other day, nitroglycerin 0.4 mg sublingual p.r.n., vitamin B12 1000 mcg p.o. daily, ferrous sulfate 325 mg p.o. b.i.d. FAMILY HISTORY: Significant for father had [place] in his 70s. Mother has [place] at the age of 36, history of stomach cancer and history of CHF. SOCIAL HISTORY: , currently lives with his daughters. No tobacco, no alcohol use, no drug use. 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 REVIEW OF SYMPTOMS: As per HPI. Rest of review of symptoms negative. PHYSICAL EXAMINATION: GENERAL: The patient is of moderate build, not in distress. VITAL SIGNS: Temperature 36.7, pulse 75, respiratory 73, respiratory rate 18, blood pressure 157/97, oxygen 92% room air. HEENT: No pallor, no icterus. Pupils equal, round, and react to light. NECK: No JVD, no neck masses, no carotid bruits. CARDIOVASCULAR: S1, S2 heard, irregular rhythm, no murmur, no gallop. RESPIRATORY SYSTEM: Normal AP diameter. No accessory muscle use. No wheezing, crackles. ABDOMEN: Soft, bowel sounds present. Nontender. No distention. CENTRAL NERVOUS SYSTEM: Cranial nerves II-XII grossly intact. Nonfocal. EXTREMITIES: Trace pedal edema, no erythema seen. LABORATORIES: WBC 7.5, hemoglobin 8.5, hematocrit 27.4, platelets 135. Sodium 142, potassium 3.9, chloride 108, bicarbonate 29, BUN 20, creatinine 1.4, serum glucose 116, calcium 8.7. PT 28.5, INR of 2.8. ASSESSMENT AND PLAN: This is a 78-year-old male who presents with gross hematuria. 1. Gross hematuria. The patient has hematuria in the recent past and status post cystoscopy today, but could not able to pass the cystoscope tube because severe distal ureteral stricture, but urology was able to place a small catheter and by the time he went home, he was having bleeding in his catheter bag, but denies any pain. His hemoglobin recently was 8.9. Today's hemoglobin is 8.5. We will follow his labs. Hold his Coumadin and Plavix. Urology is consulted and notified. Further recommendation per urology. Monitor on the medical floor. 2. History of atrial fibrillation, rate controlled with Coreg, digoxin, and holding his Coumadin for above reasons 3. History of coronary artery disease status post stent. Continue statin and his Coreg, holding his Plavix. 4. History of chronic systolic congestive heart failure with ejection fraction of 20%-25%, status post defibrillator on Lasix, Coreg, Cozaar, and digoxin. Currently stable. We will monitor for any volume overload. 5. History of renal cancer. 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 Follows with hem/onc. 6. iron-deficiency anemia, on iron supplements. Following with hem/onc. Recent hemoglobin was 8.9. Today's hemoglobin is 8.5. We will monitor the hemoglobin as patient is currently having hematuria. 7. Diabetes. Hold metformin, placed him on insulin sliding scale. 8. Hypogonadism. Continue testosterone patch. 9.chronic kidney disease stage III, Baseline Cr 1.3 to 1.5. We will follow the labs. 6. Deep venous thrombosis prophylaxis, sequential compression devices for now. DISPOSITION: Monitor on the medical floor. Social service to help with discharge planning. Code status level I full code. MTDD
[2018-06-17] MEDS: CEFTRIAXONE SOD INJ 1 GM in DEXTROSE 5% ADD-VANTAGE 50ML 50 ML IV SCH (01:48)
[2018-06-17 01:59] VITALS: BP 150/78; PULSE 87; TEMP 36.7; O2SAT 94; BMI 25.5
[2018-06-17 06:48] LABS: BASO % 0.3 %; BASO ABS # 0.03 K/uL (0-0.2); EOS % 1.8 %; EOS ABS # 0.19 K/uL (0-0.5); HEMATOCRIT 26.5 % (42-52); HEMOGLOBIN 8.2 g/dL (14.0-18.0); IG# 0.02 K/uL (0.00-0.02); LYMPH % 6.8 %; LYMPH ABS # 0.72 K/uL (1.2-3.4); MEAN CELL VOLUME 93.6 fL (80-100); MEAN CORPUSCULAR HGB CONC 30.9 g/dl (32-36); MEAN PLATELET VOLUME 10.7 fL (7.4-10.4); MONO % 16.1 %; NEUT % 74.8 %; PLATELET COUNT 138 K/uL (130-400); RED CELL DISTRIBUTION WIDTH CV 16.2 % (11.5-14.5); RED CELL DISTRIBUTION WIDTH SD 55.8 fL (36.4-46.3); WHITE BLOOD COUNT 10.56 K/uL (4.8-10.8)
[2018-06-17 07:20] LABS: CALCIUM 8.2 mg/dl (8.5-10.1); CREATININE 1.24 mg/dl (0.60-1.40); POTASSIUM 4.1 mmol/L (3.5-5.1)
[2018-06-17 07:22] VITALS: BP 162/70; PULSE 62; TEMP 37.4; O2SAT 91
[2018-06-17] MEDS: SERTRALINE HCL 50 MG TAB PO SCH (08:00)
[2018-06-17] MEDS: FERROUS GLUCONATE 324 MG TAB PO SCH (08:00)
[2018-06-17] MEDS: CYANOCOBALAMIN 500 MCG TAB (VIT B-12) PO SCH (08:00)
[2018-06-17] MEDS: ROSUVASTATIN CALCIUM 20 MG TAB PO SCH (08:00)
[2018-06-17] MEDS: FUROSEMIDE 20 MG TAB PO SCH (08:00)
[2018-06-17] MEDS: CARVEDILOL 6.25 MG TAB PO SCH ×2 (08:00→20:43)
[2018-06-17] MEDS: PANTOprazole SOD 40 MG TAB PO SCH (08:00)
--- NOTE | 2018-06-17 11:25 | Urology Consultation ---
History General Date of Service: Jun 17, 2018. Chief Complaint: Gross hematuria, meatal stenosis, urethral stricture Primary Care Physician: Shade Thomas III, M.D. Pt seen a urologist before?: Yes (Dr. Galarza) If yes, why?: gross hematuria, meatal stenosis, uretheral stricture History of Present Illness 78 YO male, gross hematuria and urethral bleeding around Polanco catheter. Patient seen by Dr. Galarza in outpatient office yesterday, difficulty passing cystoscope due to stricture. 16F catheter placed. Patient reported to the ER last night due to bleeding around his catheter and urine in Polanco being completely blood. Aspirin and Plavix are currently being held. Aside from bleeding patient reports feeling well. Denies nausea/vomiting. Denies bladder distention. States that catheter is not too bothersome. Remains on Ceftriaxone. Laboratory Labs were reviewed and are within normal limits unless listed below. Labs are available in the chart and at [facility] Problem List Medical Problems: (1) Anemia Status: Acute (2) Constipation Status: Acute (3) Dehydration Status: Acute (4) Elevated serum creatinine Status: Acute (5) Fall Status: Acute (6) Fall from standing Status: Acute (7) Ischemic ulcer of toe Status: Acute (8) Kidney lesion, [place], right Status: Acute (9) Petechial rash Status: Acute (10) Post-op bleeding Status: Acute (11) Rib fractures Status: Acute (12) Skin tear of left elbow without complication Status: Acute (13) Traumatic hematoma of left eyebrow Status: Acute Past History A Fib, congestive heart failure, diabetes, renal disease Family History FH: CAD (coronary artery disease) FATHER ( at age 69) MOTHER ( at age 35) SISTER ( at age 65) Social History Hx Tobacco Use In Past Year?: Yes (chewing tobacco everyday) Alcohol: occasional Drug use: none Marital status: Housing status: lives with family Immunizations History of Influenza Vaccine: Yes Influenza Vaccine Date: Aug 03, 2016 History of Tetanus Vaccine?: Yes Tetanus Immunization Date: Jan 28, 2009 History of Pneumococcal: Yes Pneumococcal Date: Sep 10, 2015 History of MDRO No Allergies Coded Allergies: Fentanyl (Verified Allergy, Severe, Decreased oxygen saturation, low RR, unresponsive, 06/16/18) Patient sedated for emergent heart catheterization. Patient given IV versed and fentanyl per MD orders. Patient given IV Versed (1mg+1mg) and Fentanyl (50mcg). Patient oxygen saturation drops into the 50's and patient becomes unresponsive with low respiratory rate, requiring ambu bag ventilation and the administration of Narcan and Romazicon. Midazolam (Verified Allergy, Severe, Decreased oxygen saturation, low RR, unresponsive., 06/16/18) Patient sedated for emergent heart catheterization. Patient given IV versed and fentanyl per MD orders. Patient given IV Versed (1mg+1mg) and Fentanyl (50 mcg). Patient oxygen saturation drops into the 50's and patient becomes unresponsive with low respiratory rate, requiring ambu bag ventilation and the administration of Narcan and Ramazicon. Codeine (Verified Allergy, Unknown, GI SYMPTOMS, 06/16/18) BRIANA Inhibitors (Verified Adverse Reaction, Mild, cough,TAKES BENAZEPRIL PER MED REC, 06/16/18) Cefuroxime (Verified Adverse Reaction, Mild, GI SYMPTOMS, 06/16/18) Medications Home Medications: Home Meds and Scripts Medications Dose Route/Sig Max Daily Dose Days Date Category Dose Instructions Zoloft (Sertraline HCl) 50 Mg Tab 50 Mg PO DAILY 10/12/17 Reported [Testosterone Gel] 1 Appln TOP DAILY 10/12/17 Reported Carvedilol 6.25 Mg Tab 6.25 Mg PO BID 30 01/19/17 Rx Coumadin (Warfarin Sod) 7.5 Mg Tab 7.5 Mg PO MOFR@1600 30 01/19/17 Rx Coumadin (Warfarin Sod) 5 Mg Tab 5 Mg PO SUTUWETHSA@1600 30 01/19/17 Rx Clopidogrel (Clopidogrel Bisulfate) 75 Mg Tab 75 Mg PO QAM 30 01/19/17 Rx Digoxin 0.125 Mg Tab 0.125 Mg PO Q2D 01/12/17 Reported Vitamin B-12 (Cyanocobalamin) 1,000 Mcg Tab 1,000 Mcg PO DAILY 01/12/17 Reported Ferrous Gluconate 324 Mg Tab 324 Mg PO DAILY 01/12/17 Reported Glucophage (Metformin Hcl) 1,000 Mg Tab 1,000 Mg PO QAM 01/12/17 Reported take with breakfast Lasix (Furosemide) 20 Mg Tab 20 Mg PO DAILY 01/12/17 Reported Protonix (Pantoprazole Sodium) 40 Mg Tab 40 Mg PO DAILY 08/27/15 Reported Crestor (Rosuvastatin Calcium) 20 Mg Tab 20 Mg PO DAILY 08/27/13 Reported Nitrostat (Nitroglycerin) 0.4 Mg Sub 0.4 Mg UT UD PRN 04/29/12 Reported Inpatient Medications: Current Inpatient Medications Medications (Trade) Dose Ordered Sig/Magaly Route Start Time Stop Time Status Last Admin Dose Admin Acetaminophen (Tylenol Tab) 650 mg Q4H PRN PO 06/17/18 00:15 07/17/18 00:14 Al Hydrox/Mg Hydrox/Simethicone (Maalox Max Susp) 15 ml Q4H PRN PO 06/17/18 00:15 07/17/18 00:14 Polyethylene (Miralax Powder Packet) 17 gm DAILY PRN PO 06/17/18 00:15 07/17/18 00:14 Ondansetron HCl (Zofran Inj) 4 mg Q6H PRN IV 06/17/18 00:15 07/17/18 00:14 Carvedilol (Coreg Tab) 6.25 mg BID PO 06/17/18 08:00 07/17/18 08:59 Cyanocobalamin (Vitamin B-12 Tab) 1,000 mcg DAILY PO 06/17/18 08:00 07/17/18 08:59 Digoxin (Lanoxin Tab) 0.125 mg Q2D@1600 PO 06/18/18 16:00 07/18/18 15:59 Ferrous Gluconate (Ferrous Gluconate Tab) 324 mg DAILY PO 06/17/18 08:00 07/17/18 08:59 Furosemide (Lasix Tab) 20 mg DAILY PO 06/17/18 08:00 07/17/18 08:59 Nitroglycerin (Nitrostat Tab) 0.4 mg UD PRN UT 06/17/18 00:15 07/17/18 00:14 Pantoprazole Sodium (Protonix Tab) 40 mg DAILY PO 06/17/18 08:00 07/17/18 08:59 Rosuvastatin Calcium (Crestor Tab) 20 mg DAILY PO 06/17/18 08:00 07/17/18 08:59 Sertraline HCl (Zoloft Tab) 50 mg DAILY PO 06/17/18 08:00 07/17/18 08:59 Miscellaneous Information (Order Awaiting Action) 1 ea QS N/A 06/17/18 08:00 07/17/18 07:59 Ceftriaxone Sodium 1 gm/ Dextrose 50 ml @ 100 mls/hr Q24H IV 06/17/18 02:00 06/22/18 01:59 06/17/18 01:48 100 MLS/HR Review of Systems Review of Systems Constitutional: No chills Neurological: No dizzy, No numbness/tingling Gastrointestinal: No abdominal pain, No nausea, No vomiting, No constipation, No diarrhea Cardiovascular: No chest pain Respiratory: No shortness of breath Musculoskeletal: No back pain Male : + see HPI Physical Exam Vital Signs: Vital Signs Past 12 Hours Date Time Temp Pulse Resp B/P (MAP) Pulse Ox O2 Delivery O2 Flow Rate FiO2 06/17/18 10:41 Room Air 06/17/18 07:22 37.4 62 20 162/70 (100) 91 Room Air 06/17/18 01:59 36.7 87 20 150/78 94 Room Air 06/17/18 01:02 86 20 153/84 96 06/17/18 00:14 73 18 157/97 94 Room Air Physical Exam: General Appearance: no apparent distress Eyes: bilateral eyes normal inspection ENT: hearing grossly normal Neck: supple, no JVD Respiratory/Chest: no respiratory distress, no accessory muscle use Cardiovascular: no edema, no JVD Genitourinary - Male: Penis: pertinent finding (catheter in place, dried blood around catheter, Polanco patent draining red urine.) Testes: normal testes Scrotum: normal scrotum Neurologic/Psychiatric: alert, normal mood/affect, oriented x 3 Skin: normal color, warm/dry Assessment & Plan Assessment & Plan 78 YO male, gross hematuria and bleeding around Polanco catheter. H&H 8.2 & 26.5. Continue to hold aspirin and plavix until bleeding resolves. Dried blood around catheter, Polanco patent and draining red urine. Urethral bleeding expected with traumatic Polanco/cystoscope insertion. Polanco to remain in place until outpatient urology follow up on 06/22/18 at 1:10pm.
[2018-06-17 14:53] VITALS: Ht 177.8 cm; Wt 80.6 kg
[2018-06-17 16:01] VITALS: BP 130/59; PULSE 68; TEMP 37; O2SAT 93
[2018-06-17 16:21] LABS: HEMATOCRIT 26.2 % (42-52); HEMOGLOBIN 8.1 g/dL (14.0-18.0)
[2018-06-17] MEDS ORDERED: TESTOSTERONE EXT SCH (17:45)
[2018-06-17] MEDS ORDERED: TESTOSTERONE SCH (17:45)
--- NOTE | 2018-06-17 17:47 | Progress Note ---
Internal Med Progress Note Date of Service: Jun 17, 2018. Provider Documentation: SUBJECTIVE: The patient was seen and examined in medical floor He is status post urethral catheterization by urologist on of this month He was having hematuria and bleeding around the catheter following the procedure He has been on Plavix and Coumadin for his other medical condition His hemoglobin remains stable so far and denies of any other symptoms Hematuria continues OBJECTIVE: Vital Signs-as noted below Exam: General-no apparent distress but anxious Eyes-normal ENT-normal Neck-supple Lungs-clear Heart-regular Abdomen-benign Extremities-no edema Has Polanco catheter which is draining bloody urine Neuro-alert, awake and oriented 3 Generally weak Lab data as noted below. ASSESSMENT & PLAN: This is a 78-year-old male who presents with gross hematuria. Gross hematuria. The patient has hematuria in the recent past Status post cystoscopy today The procedure was complicated by severe distal ureteral stricture, Urology was able to place a small catheter and by the time he went home, he was having bleeding in his catheter bag, Denies any pain. Hb is not dropped Hold his Coumadin and Plavix. Urology is consulted and notified-appreciate Input. History of atrial fibrillation, rate controlled with Coreg, digoxin, and holding his Coumadin for above reasons History of coronary artery disease status post stent. Continue statin and his Coreg, holding his Plavix. History of chronic systolic congestive heart failure with ejection fraction of 20%-25%, status post defibrillator on Lasix, Coreg, Cozaar, and digoxin. Currently stable. We will monitor for any volume overload. History of renal cancer. 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 Follows with hem/onc. Iron-deficiency anemia, on iron supplements. Following with hem/onc. Recent hemoglobin was 8.9. Today's hemoglobin is 8.5. We will monitor the hemoglobin as patient is currently having hematuria. Diabetes. Hold metformin, placed him on insulin sliding scale. Hypogonadism. Continue testosterone patch. Chronic kidney disease stage III, Baseline Cr 1.3 to 1.5. We will follow the labs. Deep venous thrombosis prophylaxis, sequential compression devices for now. Code ::Full DISPOSITION Awaited Vital Signs: Date Time Temp Pulse Resp B/P (MAP) Pulse Ox O2 Delivery O2 Flow Rate FiO2 06/17/18 16:01 37.0 68 20 130/59 (82) 93 Room Air 06/17/18 10:41 Room Air 06/17/18 07:22 37.4 62 20 162/70 (100) 91 Room Air 06/17/18 01:59 36.7 87 20 150/78 94 Room Air 06/17/18 01:02 86 20 153/84 96 06/17/18 00:14 73 18 157/97 94 Room Air 06/16/18 22:32 95 20 146/87 95 Room Air 06/16/18 20:39 36.7 72 18 165/75 96 Room Air Lab Results: Results Past 24 Hours Test 06/16/18 21:47 06/17/18 05:54 06/17/18 15:56 06/17/18 17:05 Range/Units White Blood Count 7.50 10.56 4.8-10.8 K/uL Red Blood Count 2.91 2.83 4.7-6.1 M/uL Hemoglobin 8.5 8.2 8.1 14.0-18.0 g/dL Hematocrit 27.4 26.5 26.2 42-52 % Mean Corpuscular Volume 94.2 93.6 80-100 fL Mean Corpuscular Hemoglobin 29.2 29.0 25-34 pg Mean Corpuscular Hemoglobin Concent 31.0 30.9 32-36 g/dl Platelet Count 135 138 130-400 K/uL Mean Platelet Volume 10.1 10.7 7.4-10.4 fL Neutrophils (%) (Auto) 66.8 74.8 % Lymphocytes (%) (Auto) 14.5 6.8 % Monocytes (%) (Auto) 14.9 16.1 % Eosinophils (%) (Auto) 3.3 1.8 % Basophils (%) (Auto) 0.4 0.3 % Neutrophils # (Auto) 5.00 7.90 1.4-6.5 K/uL Lymphocytes # (Auto) 1.09 0.72 1.2-3.4 K/uL Monocytes # (Auto) 1.12 1.70 0.11-0.59 K/uL Eosinophils # (Auto) 0.25 0.19 0-0.5 K/uL Basophils # (Auto) 0.03 0.03 0-0.2 K/uL RDW Standard Deviation 56.7 55.8 36.4-46.3 fL RDW Coefficient of Variation 16.3 16.2 11.5-14.5 % Immature Granulocyte % (Auto) 0.1 0.2 % Immature Granulocyte # (Auto) 0.01 0.02 0.00-0.02 K/uL Hypochromasia PRESENT Ovalocytes 1+ 1+ Prothrombin Time 28.5 9.0-12.0 SECONDS Prothromb Time International Ratio 2.8 0.9-1.1 Sodium Level 142 140 136-145 mmol/L Potassium Level 3.9 4.1 3.5-5.1 mmol/L Chloride Level 108 107 98-107 mmol/L Carbon Dioxide Level 29 26 21-32 mmol/L Anion Gap 5.0 7.0 3-11 mmol/L Blood Urea Nitrogen 20 18 7-18 mg/dl Creatinine 1.43 1.24 0.60-1.40 mg/dl Est Creatinine Clear Calc Drug Dose 43.2 49.9 ml/min Estimated GFR () 53.6 63.7 Estimated GFR (Non- 46.3 54.9 BUN/Creatinine Ratio 14.1 14.3 10-20 Random Glucose 116 115 70-99 mg/dl Calcium Level 8.7 8.2 8.5-10.1 mg/dl Bedside Glucose 83 70-99 mg/dl
[2018-06-17] MEDS: INSULIN ASPART 100 UNITS/ML 3 ML PEN SC SCH (20:24)
[2018-06-17 20:43] VITALS: BP 146/66; PULSE 80
[2018-06-17 22:35] VITALS: BP 152/69; PULSE 50; TEMP 37.8; O2SAT 93
[2018-06-18] VITALS (7 sets, daily range): BP systolic 124–159; BP diastolic 63–74; PULSE 71–86; TEMP 36.9–37; O2SAT 94
[2018-06-18] MEDS: CEFTRIAXONE SOD INJ 1 GM in DEXTROSE 5% ADD-VANTAGE 50ML 50 ML IV SCH (01:45)
[2018-06-18 07:34] LABS: BASO % 0.4 %; BASO ABS # 0.04 K/uL (0-0.2); EOS % 1.7 %; EOS ABS # 0.15 K/uL (0-0.5); HEMATOCRIT 26.3 % (42-52); HEMOGLOBIN 8.2 g/dL (14.0-18.0); IG# 0.01 K/uL (0.00-0.02); LYMPH % 9.6 %; LYMPH ABS # 0.87 K/uL (1.2-3.4); MEAN CELL VOLUME 93.6 fL (80-100); MEAN CORPUSCULAR HEMOGLOBIN 29.2 pg (25-34); MEAN CORPUSCULAR HGB CONC 31.2 g/dl (32-36); MEAN PLATELET VOLUME 10.7 fL (7.4-10.4); MONO % 15.7 %; MONO ABS # 1.42 K/uL (0.11-0.59); NEUT % 72.5 %; NEUT ABS # 6.57 K/uL (1.4-6.5); PLATELET COUNT 127 K/uL (130-400); RED CELL DISTRIBUTION WIDTH CV 16.2 % (11.5-14.5); RED CELL DISTRIBUTION WIDTH SD 56.2 fL (36.4-46.3); WHITE BLOOD COUNT 9.06 K/uL (4.8-10.8)
[2018-06-18] MEDS ORDERED: TESTOSTERONE EXT SCH (08:00)
[2018-06-18] MEDS ORDERED: TESTOSTERONE SCH (08:00)
[2018-06-18 08:01] LABS: CALCIUM 8.2 mg/dl (8.5-10.1); CREATININE 1.43 mg/dl (0.60-1.40)
--- NOTE | 2018-06-18 08:05 | Progress Note ---
Subjective Date of Service: Jun 18, 2018. Subjective Pt evaluation today including: conversation w/ patient, conversation w/ family , physical exam, chart review, lab review, review of inpatient medication list Pain: Denies PO Intake: No emesis Voiding: browning catheter in place (Old blood in catheter, draining freely without clots.) 78-year-old male admitted with gross hematuria after urethral dilation and cystoscopy, indwelling Browning in place draining freely. is present in the room for the discussion today. Patient's hemoglobin is noted to be stable and creatinine was within normal limits yesterday, repeat value pending today. Patient denies suprapubic discomfort or obstruction of Browning catheter. No irrigation needed. Past notes reviewed. Problem List Medical Problems: (1) Anemia Status: Acute (2) Constipation Status: Acute (3) Dehydration Status: Acute (4) Elevated serum creatinine Status: Acute (5) Fall Status: Acute (6) Fall from standing Status: Acute (7) Ischemic ulcer of toe Status: Acute (8) Kidney lesion, [place], right Status: Acute (9) Petechial rash Status: Acute (10) Post-op bleeding Status: Acute (11) Rib fractures Status: Acute (12) Skin tear of left elbow without complication Status: Acute (13) Traumatic hematoma of left eyebrow Status: Acute Review of Systems Constitutional: No fever, No chills Eyes: No worsening of vision ENT: No hearing loss Respiratory: No sputum, No shortness of breath Cardiac: No chest pain Abdomen: No pain, No nausea, No vomiting Male : + see HPI, + hematuria Neurologic: No weakness, No numbness/tingling Psychiatric: No depression symptoms Heme: + abnormal bleeding/bruising Skin: No new/changing skin lesions Objective Vital Signs Date Time Temp Pulse Resp B/P (MAP) Pulse Ox O2 Delivery O2 Flow Rate FiO2 06/18/18 07:47 36.9 86 20 124/63 (83) 94 Room Air 06/18/18 01:37 94 Room Air 06/17/18 22:35 37.8 50 20 152/69 (96) 93 Room Air 06/17/18 20:43 80 146/66 (92) 06/17/18 16:01 37.0 68 20 130/59 (82) 93 Room Air 06/17/18 10:41 Room Air Physical Exam General Appearance: WD/WN, no apparent distress Eyes: normal inspection ENT: normal ENT inspection, hearing grossly normal Respiratory/Chest: no respiratory distress, no accessory muscle use Cardiovascular: no JVD Abdomen: non tender, soft Neurologic/Psychiatric: alert Skin: normal color Laboratory Results Last 24 Hours Test 06/17/18 15:56 06/17/18 17:05 06/17/18 20:15 06/18/18 07:02 Hemoglobin 8.1 g/dL 8.2 g/dL Hematocrit 26.2 % 26.3 % Bedside Glucose 83 mg/dl 144 mg/dl White Blood Count 9.06 K/uL Red Blood Count 2.81 M/uL Mean Corpuscular Volume 93.6 fL Mean Corpuscular Hemoglobin 29.2 pg Mean Corpuscular Hemoglobin Concent 31.2 g/dl Platelet Count 127 K/uL Mean Platelet Volume 10.7 fL Neutrophils (%) (Auto) 72.5 % Lymphocytes (%) (Auto) 9.6 % Monocytes (%) (Auto) 15.7 % Eosinophils (%) (Auto) 1.7 % Basophils (%) (Auto) 0.4 % Neutrophils # (Auto) 6.57 K/uL Lymphocytes # (Auto) 0.87 K/uL Monocytes # (Auto) 1.42 K/uL Eosinophils # (Auto) 0.15 K/uL Basophils # (Auto) 0.04 K/uL RDW Standard Deviation 56.2 fL RDW Coefficient of Variation 16.2 % Immature Granulocyte % (Auto) 0.1 % Immature Granulocyte # (Auto) 0.01 K/uL Ovalocytes 1+ Sodium Level 137 mmol/L Potassium Level 4.0 mmol/L Chloride Level 105 mmol/L Carbon Dioxide Level 28 mmol/L Anion Gap 4.0 mmol/L Blood Urea Nitrogen 23 mg/dl Creatinine 1.43 mg/dl Est Creatinine Clear Calc Drug Dose 43.2 ml/min Estimated GFR () 53.6 Estimated GFR (Non- 46.3 BUN/Creatinine Ratio 16.2 Random Glucose 94 mg/dl Calcium Level 8.2 mg/dl Magnesium Level 1.9 mg/dl Test 06/18/18 07:54 Bedside Glucose 106 mg/dl Assessment and Plan A/P 78-year-old male with gross hematuria after urethral dilation, indwelling Browning. As discussed with the patient and patient's , the fact that his Browning catheter is draining without clotting that his hemoglobin remained stable are reassuring. Would avoid surgical intervention. The color of his urine suggests old blood from the time of his dilation resolving currently. Would encourage p.o. fluid intake and continue conservative management for now. Worrisome signs and symptoms such as Browning catheter obstruction or the passage of significant clots are reviewed. Patient has an upcoming follow-up in a few days time in our office. Would hold Coumadin and leave Browning catheter in place until then. Patient and vocalizes good understanding of the treatment plan. Patient should be stable for discharge home from a perspective. Thank you for allowing us to participate in this patient's acute care. Discharge planning: home
[2018-06-18] MEDS: ROSUVASTATIN CALCIUM 20 MG TAB PO SCH (09:25)
[2018-06-18] MEDS: CARVEDILOL 6.25 MG TAB PO SCH (09:25)
[2018-06-18] MEDS: PANTOprazole SOD 40 MG TAB PO SCH (09:26)
[2018-06-18] MEDS: FUROSEMIDE 20 MG TAB PO SCH (09:26)
[2018-06-18] MEDS: FERROUS GLUCONATE 324 MG TAB PO SCH (09:26)
[2018-06-18] MEDS: CYANOCOBALAMIN 500 MCG TAB (VIT B-12) PO SCH (09:27)
[2018-06-18] MEDS: SERTRALINE HCL 50 MG TAB PO SCH (09:27)
[2018-06-18] MEDS: INSULIN ASPART 100 UNITS/ML 3 ML PEN SC SCH ×3 (09:40→16:30)
--- NOTE | 2018-06-18 13:51 | Progress Note ---
Internal Med Progress Note Date of Service: Jun 18, 2018. Provider Documentation: SUBJECTIVE: The patient was seen and examined in medical floor He is status post urethral catheterization by urologist on of this month He was having hematuria and bleeding around the catheter following the procedure He has been on Plavix and Coumadin for his other medical condition His hemoglobin remains stable so far and denies of any other symptoms Hematuria continues 06/18: He has been feeling a lot better since this morning Continues to have hematuria but seems to be lessened Out of bed in a chair and denies any symptoms Was seen by urologist and advised discharge OBJECTIVE: Vital Signs-as noted below Exam: General-no apparent distress but anxious Eyes-normal ENT-normal Neck-supple Lungs-clear Heart-regular Abdomen-benign Extremities-no edema Has Polanco catheter which is draining bloody urine-lightening up Neuro-alert, awake and oriented 3 Generally weak Lab data as noted below. ASSESSMENT & PLAN: This is a 78-year-old male who presents with gross hematuria. Gross hematuria. The patient has hematuria in the recent past Status post cystoscopy today The procedure was complicated by severe distal ureteral stricture, Urology was able to place a small catheter and by the time he went home, he was having bleeding in his catheter bag, Hb is not dropped and remains a stable Hold his Coumadin and Plavix. -Until he sees the urologist as an outpatient Urology is consulted and notified-appreciate Input. Hematuria seems to be improving Denies any symptoms Hemoglobin remains stable Discharge home today History of atrial fibrillation, rate controlled with Coreg, digoxin, and holding his Coumadin for above reasons History of coronary artery disease status post stent. Continue statin and his Coreg, holding his Plavix. History of chronic systolic congestive heart failure with ejection fraction of 20%-25%, status post defibrillator on Lasix, Coreg, Cozaar, and digoxin. Currently stable. We will monitor for any volume overload. History of renal cancer. 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 Follows with hem/onc. Iron-deficiency anemia, on iron supplements. Following with hem/onc. Recent hemoglobin was 8.9. Today's hemoglobin is 8.5. We will monitor the hemoglobin as patient is currently having hematuria. Diabetes. Hold metformin, placed him on insulin sliding scale. Hypogonadism. Continue testosterone patch. Chronic kidney disease stage III, Baseline Cr 1.3 to 1.5. We will follow the labs. Deep venous thrombosis prophylaxis, sequential compression devices for now. We will hold his Coumadin and Plavix until he sees his urologist as scheduled Code ::Full DISPOSITION Discharge home Vital Signs: Date Time Temp Pulse Resp B/P (MAP) Pulse Ox O2 Delivery O2 Flow Rate FiO2 06/18/18 09:33 71 130/71 (90) 06/18/18 08:45 94 Room Air 06/18/18 07:47 36.9 86 20 124/63 (83) 94 Room Air 06/18/18 01:37 94 Room Air 06/17/18 22:35 37.8 50 20 152/69 (96) 93 Room Air 06/17/18 20:43 80 146/66 (92) 06/17/18 16:01 37.0 68 20 130/59 (82) 93 Room Air Lab Results: Results Past 24 Hours Test 06/17/18 15:56 06/17/18 17:05 06/17/18 20:15 06/18/18 07:02 Range/Units Hemoglobin 8.1 8.2 14.0-18.0 g/dL Hematocrit 26.2 26.3 42-52 % Bedside Glucose 83 144 70-99 mg/dl White Blood Count 9.06 4.8-10.8 K/uL Red Blood Count 2.81 4.7-6.1 M/uL Mean Corpuscular Volume 93.6 80-100 fL Mean Corpuscular Hemoglobin 29.2 25-34 pg Mean Corpuscular Hemoglobin Concent 31.2 32-36 g/dl Platelet Count 127 130-400 K/uL Mean Platelet Volume 10.7 7.4-10.4 fL Neutrophils (%) (Auto) 72.5 % Lymphocytes (%) (Auto) 9.6 % Monocytes (%) (Auto) 15.7 % Eosinophils (%) (Auto) 1.7 % Basophils (%) (Auto) 0.4 % Neutrophils # (Auto) 6.57 1.4-6.5 K/uL Lymphocytes # (Auto) 0.87 1.2-3.4 K/uL Monocytes # (Auto) 1.42 0.11-0.59 K/uL Eosinophils # (Auto) 0.15 0-0.5 K/uL Basophils # (Auto) 0.04 0-0.2 K/uL RDW Standard Deviation 56.2 36.4-46.3 fL RDW Coefficient of Variation 16.2 11.5-14.5 % Immature Granulocyte % (Auto) 0.1 % Immature Granulocyte # (Auto) 0.01 0.00-0.02 K/uL Ovalocytes 1+ Sodium Level 137 136-145 mmol/L Potassium Level 4.0 3.5-5.1 mmol/L Chloride Level 105 98-107 mmol/L Carbon Dioxide Level 28 21-32 mmol/L Anion Gap 4.0 3-11 mmol/L Blood Urea Nitrogen 23 7-18 mg/dl Creatinine 1.43 0.60-1.40 mg/dl Est Creatinine Clear Calc Drug Dose 43.2 ml/min Estimated GFR () 53.6 Estimated GFR (Non- 46.3 BUN/Creatinine Ratio 16.2 10-20 Random Glucose 94 70-99 mg/dl Calcium Level 8.2 8.5-10.1 mg/dl Magnesium Level 1.9 1.8-2.4 mg/dl Test 06/18/18 07:54 06/18/18 11:28 Range/Units Bedside Glucose 106 122 70-99 mg/dl
[2018-06-18] MEDS ORDERED: CEPHALEXIN MONOHYDRATE 250 MG CAP PO ONE (14:30)
[2018-06-18] MEDS ORDERED: KFL500 PO (14:33)
[2018-06-18] MEDS ORDERED: PLV75 PO (14:33)
[2018-06-18] MEDS ORDERED: CMD5 PO (14:33)
[2018-06-18] MEDS ORDERED: CMD75 PO (14:33)
--- NOTE | 2018-06-18 14:37 | Discharge Instructions ---
Discharge Instructions Date of Service Jun 18, 2018. Admission Reason for Admission: Gross Hematuria Discharge Discharge Diagnosis / Problem: S/P Difficult Cthterization with Hematuria- Improving,Possible UTI Discharge Goals Goal(s): Prevent Disease Progression Activity Recommendations Activity Limitations: resume your previous activity . Instructions / Follow-Up Instructions / Follow-Up Dr Thomas on 06/28/18 at 1:45 PM.Please keep appointment with The Urologist.No Coumadin and Plavix until you see the Urologist Current Hospital Diet Patient's current hospital diet: AHA Diet (Heart Healthy), Diabetes Type 2 Diet Discharge Diet Recommended Diet: AHA Diet (Heart Healthy), Diabetes Type 2 Diet Pending Studies Studies pending at discharge: no Medical Emergencies . Who to Call and When: Medical Emergencies: If at any time you feel your situation is an emergency, please call 911 immediately. . Non-Emergent Contact Non-Emergency issues call your: Primary Care Provider . Past History Medical & Surgical History: (1) Gross hematuria (2) Post-op bleeding (3) Atrial fibrillation (4) CAD (coronary artery disease) (5) DM type 2 (diabetes mellitus, type 2) (6) Ischemic cardiomyopathy (7) CVA (cerebral vascular accident) (8) Squamous cell carcinoma (9) Basal cell carcinoma (10) V tach (11) Cardiac defibrillator in place (12) History of cataract surgery . "Provider Documentation" section prepared by Cait Montalvo. .
[2018-06-18] MEDS ORDERED: DIGOXIN 0.125 MG TAB PO SCH (16:00)
[2018-06-18] MEDS ORDERED: CEPHALEXIN MONOHYDRATE 500 MG CAP PO SCH (20:00)
--- NOTE | 2018-06-19 08:19 | Discharge Summary ---
Discharge Summary Date of Service Jun 19, 2018. Discharge Summary Admission Date: Jun 17, 2018 at 00:24 Discharge Date: Jun 18, 2018 Discharge Disposition: Home Principal Diagnosis: S/P Difficult Catheterization with Hematuria-Improving,Possible UTI Secondary Diagnoses/Problems: Please see H&P and Hospital progress note Consultations: Urology Medication Reconciliation New Medications: Cephalexin Monohydrate (Cephalexin) 500 Mg Cap 500 MG PO TID for 5 Days, #15 CAP Changed Medications: Clopidogrel Bisulfate (Clopidogrel) 75 Mg Tab 75 MG PO QAM for 30 Days, #30 TAB (Medication details modified) Hold until you see your Urologist Warfarin Sod (Coumadin) 5 Mg Tab 5 MG PO SuTuWeThSa@1600 for 30 Days, #30 TAB (Medication details modified) Hold until you see your Urologist Warfarin Sod (Coumadin) 7.5 Mg Tab 7.5 MG PO MoFr@1600 for 30 Days, #30 TAB (Medication details modified) hold until analy see your Urologist Continued Medications: Carvedilol (Carvedilol) 6.25 Mg Tab 6.25 MG PO BID for 30 Days, #60 TAB Cyanocobalamin (Vitamin B-12) 1,000 Mcg Tab 1000 MCG PO DAILY, TAB Digoxin (Digoxin) 0.125 Mg Tab 0.125 MG PO Q2D Ferrous Gluconate (Ferrous Gluconate) 324 Mg Tab 324 MG PO DAILY, TAB Furosemide (Lasix) 20 Mg Tab 20 MG PO DAILY Metformin Hcl (Glucophage) 1,000 Mg Tab 1000 MG PO QAM, TAB take with breakfast Nitroglycerin (Nitrostat) 0.4 Mg Sub 0.4 MG UT UD PRN for Chest Pain Pantoprazole (Protonix) 40 Mg Tab 40 MG PO DAILY Rosuvastatin Calcium (Crestor) 20 Mg Tab 20 MG PO DAILY Sertraline (Zoloft) 50 Mg Tab 50 MG PO DAILY, TAB [Testosterone Gel] () 1 APPLN TOP DAILY Admission Information HPI (per Admitting provider): DATE OF ADMISSION: 06/17/2018 CHIEF COMPLAINT: Gross hematuria. HISTORY OF PRESENT ILLNESS: This is a 78-year-old male with past medical history significant for atrial fibrillation, CAD status post stent, history of nonsustained ventricular tachycardia, diabetes, history of systolic CHF, status post pacemaker, hypogonadism, chronic kidney stage III, iron deficiency anemia, history of right renal mass about 2.9 cm, most likely clear cell carcinoma status post, CT-guided cryoablation in 11/2017, follows with hem/onc, history of hematuria and because of hematuria he had a cystoscopy done today by urology, but the cystoscopic tube was not able to pass into bladder because he had severe distal ureteral stricture, but urology was able to place a catheter in the bladder and was discharged and was supposed to follow with him next week. But after going home, he started to have bleeding, blood in his catheter bag, so he came to the ER, and urology wanted him to observed overnight. Denies any abdominal pain. He has some burning sensation whenever he is passing urine. Denies any fever, chills, no headaches, no blurred vision, no dizziness, no earache, has some runny nose, has some occasional cough, no sore throat, no chest pain, no shortness of breath. Appetite is okay. Walks with the help of cane. Normal bowel movements. Lives with his daughter. Currently, resting comfortable and hemodynamically stable. ALLERGIES: BRIANA INHIBITORS, CEFTIN, CODEINE, FENTANYL, MIDAZOLAM. PAST MEDICAL HISTORY: As mentioned above. PAST SURGICAL HISTORY: Cardiac catheterization, CT-guided tissue ablation of the right renal mass, status post defibrillator, cataract surgery. MEDICATIONS: The patient is on testosterone patch daily, metformin 1000 mg p.o. daily, Crestor 20 mg p.o. daily, Cozaar 25 mg p.o. daily, Coumadin as directed, Protonix 40 mg p.o. daily, Lasix 20 mg p.o. daily, Coreg 6.25 mg p.o. daily, Plavix 75 mg p.o. daily, Zoloft 50 mg p.o. daily, digoxin 125 mcg p.o. every other day, nitroglycerin 0.4 mg sublingual p.r.n., vitamin B12 1000 mcg p.o. daily, ferrous sulfate 325 mg p.o. b.i.d. FAMILY HISTORY: Significant for father had CO in his 70s. Mother has CO at the age of 36, history of stomach cancer and history of CHF. SOCIAL HISTORY: , currently lives with his daughters. No tobacco, no alcohol use, no drug use. 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 REVIEW OF SYMPTOMS: As per HPI. Rest of review of symptoms negative. PHYSICAL EXAMINATION: GENERAL: The patient is of moderate build, not in distress. VITAL SIGNS: Temperature 36.7, pulse 75, respiratory 73, respiratory rate 18, blood pressure 157/97, oxygen 92% room air. HEENT: No pallor, no icterus. Pupils equal, round, and react to light. NECK: No JVD, no neck masses, no carotid bruits. CARDIOVASCULAR: S1, S2 heard, irregular rhythm, no murmur, no gallop. RESPIRATORY SYSTEM: Normal AP diameter. No accessory muscle use. No wheezing, crackles. ABDOMEN: Soft, bowel sounds present. Nontender. No distention. CENTRAL NERVOUS SYSTEM: Cranial nerves II-XII grossly intact. Nonfocal. EXTREMITIES: Trace pedal edema, no erythema seen. LABORATORIES: WBC 7.5, hemoglobin 8.5, hematocrit 27.4, platelets 135. Sodium 142, potassium 3.9, chloride 108, bicarbonate 29, BUN 20, creatinine 1.4, serum glucose 116, calcium 8.7. PT 28.5, INR of 2.8. ASSESSMENT AND PLAN: This is a 78-year-old male who presents with gross hematuria. 1. Gross hematuria. The patient has hematuria in the recent past and status post cystoscopy today, but could not able to pass the cystoscope tube because severe distal ureteral stricture, but urology was able to place a small catheter and by the time he went home, he was having bleeding in his catheter bag, but denies any pain. His hemoglobin recently was 8.9. Today's hemoglobin is 8.5. We will follow his labs. Hold his Coumadin and Plavix. Urology is consulted and notified. Further recommendation per urology. Monitor on the medical floor. 2. History of atrial fibrillation, rate controlled with Coreg, digoxin, and holding his Coumadin for above reasons 3. History of coronary artery disease status post stent. Continue statin and his Coreg, holding his Plavix. 4. History of chronic systolic congestive heart failure with ejection fraction of 20%-25%, status post defibrillator on Lasix, Coreg, Cozaar, and digoxin. Currently stable. We will monitor for any volume overload. 5. History of renal cancer. 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 Follows with hem/onc. 6. iron-deficiency anemia, on iron supplements. Following with hem/onc. Recent hemoglobin was 8.9. Today's hemoglobin is 8.5. We will monitor the hemoglobin as patient is currently having hematuria. 7. Diabetes. Hold metformin, placed him on insulin sliding scale. 8. Hypogonadism. Continue testosterone patch. 9.chronic kidney disease stage III, Baseline Cr 1.3 to 1.5. We will follow the labs. 6. Deep venous thrombosis prophylaxis, sequential compression devices for now. DISPOSITION: Monitor on the medical floor. Social service to help with discharge planning. Code status level I full code. Dictated: 06/17/18 0041 Transcribed: 06/17/18 0134 <Electronically signed by Willi Keene MD> Signed: 06/17/18 0812 ES Willi Keene MD Hospital Course This is a 78-year-old male who presents with gross hematuria. Gross hematuria. The patient has hematuria in the recent past Status post cystoscopy today The procedure was complicated by severe distal ureteral stricture, Urology was able to place a small catheter and by the time he went home, he was having bleeding in his catheter bag, Hb is not dropped and remains a stable Hold his Coumadin and Plavix. -Until he sees the urologist as an outpatient Urology is consulted and notified-appreciate Input. Hematuria seems to be improving Denies any symptoms Hemoglobin remains stable Discharge home today History of atrial fibrillation, rate controlled with Coreg, digoxin, and holding his Coumadin for above reasons History of coronary artery disease status post stent. Continue statin and his Coreg, holding his Plavix. History of chronic systolic congestive heart failure with ejection fraction of 20%-25%, status post defibrillator on Lasix, Coreg, Cozaar, and digoxin. Currently stable. We will monitor for any volume overload. History of renal cancer. 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 Follows with hem/onc. Iron-deficiency anemia, on iron supplements. Following with hem/onc. Recent hemoglobin was 8.9. Today's hemoglobin is 8.5. We will monitor the hemoglobin as patient is currently having hematuria. Diabetes. Hold metformin, placed him on insulin sliding scale. Hypogonadism. Continue testosterone patch. Chronic kidney disease stage III, Baseline Cr 1.3 to 1.5. We will follow the labs. Deep venous thrombosis prophylaxis, sequential compression devices for now. We will hold his Coumadin and Plavix until he sees his urologist as scheduled Code ::Full DISPOSITION Discharge home Total time spent on discharge = 35 minutes This includes examination of the patient, discharge planning, medication reconciliation, and communication with other providers. Discharge Instructions Date of Service Jun 18, 2018. Admission Reason for Admission: Gross Hematuria Discharge Discharge Diagnosis / Problem: S/P Difficult Cthterization with Hematuria- Improving,Possible UTI Discharge Goals Goal(s): Prevent Disease Progression Activity Recommendations Activity Limitations: resume your previous activity . Instructions / Follow-Up Instructions / Follow-Up Dr Thomas on 06/28/18 at 1:45 PM.Please keep appointment with The Urologist.No Coumadin and Plavix until you see the Urologist Current Hospital Diet Patient's current hospital diet: AHA Diet (Heart Healthy), Diabetes Type 2 Diet Discharge Diet Recommended Diet: AHA Diet (Heart Healthy), Diabetes Type 2 Diet Pending Studies Studies pending at discharge: no Medical Emergencies . Who to Call and When: Medical Emergencies: If at any time you feel your situation is an emergency, please call 911 immediately. . Non-Emergent Contact Non-Emergency issues call your: Primary Care Provider . Past History Medical & Surgical History: (1) Gross hematuria (2) Post-op bleeding (3) Atrial fibrillation (4) CAD (coronary artery disease) (5) DM type 2 (diabetes mellitus, type 2) (6) Ischemic cardiomyopathy (7) CVA (cerebral vascular accident) (8) Squamous cell carcinoma (9) Basal cell carcinoma (10) V tach (11) Cardiac defibrillator in place (12) History of cataract surgery . "Provider Documentation" section prepared by Cait Montalvo. . <Electronically signed by Cait Montalvo M.D.> Signed: 06/18/18 3177 Additional Copies To Shade Thomas III, M.D.
== END 2018-06-18 19:53 | disposition home or self-care (01) | DRG 920 ==
LOC: C.EDB 20:36 → C.MS4W 06-17 00:24 → ENRESERV 06-17 00:49
PROVIDERS: ADMIT Internal Medicine; ATTEND Internal Medicine
DX: N99.820 Postprocedural hemorrhage of a genitourinary system organ or structure following a genitourinary system procedure (principal); N39.0 Urinary tract infection, site not specified; I50.20 Unspecified systolic (congestive) heart failure; I48.91 Unspecified atrial fibrillation; I25.10 Atherosclerotic heart disease of native coronary artery without angina pectoris; Z95.5 Presence of coronary angioplasty implant and graft; Z85.528 Personal history of other malignant neoplasm of kidney; Z79.01 Long term (current) use of anticoagulants; D50.9 Iron deficiency anemia, unspecified; E11.9 Type 2 diabetes mellitus without complications; E29.1 Testicular hypofunction; N18.3 Chronic kidney disease, stage 3 (moderate); Z88.8 Allergy status to other drugs, medicaments and biological substances; Z88.5 Allergy status to narcotic agent; Z88.6 Allergy status to analgesic agent

== ENCOUNTER → 2018-06-16 | Outpatient (CLI) | payer OTHER ==
[~2018-06-16] MED LIST changes: +CARV6.25 PO; +CLOP1TAB15 PO; +CLOTRIMAZOLE 1% TOP; +ENOX80IN SQ; +KFL500 PO; -MRLP17X PO; -SULF800T23; +WARF5TAB7 PO
== END | disposition home or self-care (01) ==
LOC: C.LABSPEC 11:34
PROVIDERS: ATTEND Urology
DX: R31.0 Gross hematuria (principal)

== ENCOUNTER 2018-06-21 00:36 | Emergency (ER) | payer OTHER ==
[~2018-06-21] VITALS: Ht 177.8 cm; Wt 82.0 kg
[~2018-06-21 00:36] MED LIST changes: +KFL500 PO
[2018-06-21 00:43] VITALS: TEMP 36.7; Ht 177.8 cm; Wt 82.0 kg
--- NOTE | 2018-06-21 01:06 | EMERGENCY ROOM VISIT NOTE ---
History Report prepared by Eddie: Nathaly Parisi Under the Supervision of: Dr. Adonay Em M.D. First contact with patient: 00:51 Chief Complaint: CATHETER REPLACEMENT Stated Complaint: CATHETER PROMBLEM History of Present Illness The patient is a 78 year old male who presents to the Emergency Room with complaints of a catheter problem beginning 4 days correctional captain. He states he had a dilation and a Browning catheter placed by Dr. Batron. He notes that 4 days correctional captain, he went to the ED as he noticed he was bleeding. Today, he reports he has not had any urine come out since this afternoon. He states he only has pain when he tries to go to the bathroom. He describes his pain as a soreness and burning. The patient denies any LOC, chest pain, or SOB. Source of History: patient Onset: 4 days correctional captain Position: other (catheter) Quality: burning, other (soreness) Associated Symptoms: No LOC, No chest pain, No SOB Review of Systems See HPI for pertinent positives & negatives. A total of 10 systems reviewed and were otherwise negative. Past Medical & Surgical Medical Problems: (1) Atrial fibrillation (2) Basal cell carcinoma (3) CAD (coronary artery disease) (4) Cardiac defibrillator in place (5) CVA (cerebral vascular accident) (6) DM type 2 (diabetes mellitus, type 2) (7) Gross hematuria (8) Ischemic cardiomyopathy (9) Squamous cell carcinoma (10) V tach Surgical Problems: (1) History of cataract surgery Family History FH: CAD (coronary artery disease) FATHER ( at age 69) MOTHER ( at age 35) SISTER ( at age 65) Social History Smoking Status: Never Smoker Marital Status: Housing Status: lives with family Current/Historical Medications Scheduled Carvedilol (Carvedilol), 6.25 MG PO BID Cephalexin Monohydrate (Cephalexin), 500 MG PO TID Clopidogrel Bisulfate (Clopidogrel), 75 MG PO QAM Cyanocobalamin (Vitamin B-12), 1,000 MCG PO DAILY Digoxin (Digoxin), 0.125 MG PO Q2D Ferrous Gluconate (Ferrous Gluconate), 324 MG PO DAILY Furosemide (Lasix), 20 MG PO DAILY Metformin Hcl (Glucophage), 1,000 MG PO QAM Pantoprazole (Protonix), 40 MG PO DAILY Rosuvastatin Calcium (Crestor), 20 MG PO DAILY Sertraline (Zoloft), 50 MG PO DAILY Warfarin Sod (Coumadin), 5 MG PO SuTuWeThSa@1600 Warfarin Sod (Coumadin), 7.5 MG PO MoFr@1600 [Testosterone Gel], 1 APPLN TOP DAILY Scheduled PRN Nitroglycerin (Nitrostat), 0.4 MG UT UD PRN for Chest Pain Allergies Coded Allergies: Fentanyl (Verified Allergy, Severe, Decreased oxygen saturation, low RR, unresponsive, 06/21/18) Patient sedated for emergent heart catheterization. Patient given IV versed and fentanyl per MD orders. Patient given IV Versed (1mg+1mg) and Fentanyl (50mcg). Patient oxygen saturation drops into the 50's and patient becomes unresponsive with low respiratory rate, requiring ambu bag ventilation and the administration of Narcan and Romazicon. Midazolam (Verified Allergy, Severe, Decreased oxygen saturation, low RR, unresponsive., 06/21/18) Patient sedated for emergent heart catheterization. Patient given IV versed and fentanyl per MD orders. Patient given IV Versed (1mg+1mg) and Fentanyl (50 mcg). Patient oxygen saturation drops into the 50's and patient becomes unresponsive with low respiratory rate, requiring ambu bag ventilation and the administration of Narcan and Ramazicon. Codeine (Verified Allergy, Unknown, GI SYMPTOMS, 06/21/18) BRIANA Inhibitors (Verified Adverse Reaction, Mild, cough,TAKES BENAZEPRIL PER MED REC, 06/21/18) Cefuroxime (Verified Adverse Reaction, Mild, GI SYMPTOMS, 06/21/18) Physical Exam Vital Signs Date Time Temp Pulse Resp B/P (MAP) Pulse Ox O2 Delivery O2 Flow Rate FiO2 06/21/18 01:58 72 18 124/50 96 Room Air 06/21/18 00:43 36.7 72 16 120/69 95 Room Air Physical Exam GENERAL: Patient is well appearing and in no acute distress. EYES: No scleral icterus, unremarkable pupils. NECK: No masses appreciated, no meningismus, trachea is midline. GASTROINTESTINAL: Abdomen soft, mild suprapubic tenderness, no peritonitis. Bowel sounds positive. No masses appreciated. : Browning catheter in place. Mild edema distal penis. Minimally tender. No ischemia. EXTREMITIES: Normal motion all extremities, no cyanosis, no edema. NEUROLOGIC: Alert and oriented, no acute motor or sensory deficits, no focal weakness, cranial nerves grossly intact. SKIN: No rash, no jaundice, no diaphoresis. Medical Decision & Procedures ED Course 0056: The patient was evaluated in room A3. A complete history and physical exam was performed. 0145: I checked on the patient at this time. His catheter was flushed and is now flowing normally. 0155: Reevaluated the patient. His catheter is still working. Family feels comfortable going home. Discussed results and discharge instructions: He verbalized understanding and agreement. The patient is ready for discharge. Medical Decision 78 yr old male arrives for evaluation of browning catheter issue. No UOP in last few hours. Flushed here with some sediment loosened. Still flushing/running well after some time. Patient feeling well and in no distress. Soft abdomen and wants to go home. Stable at discharge with family. Medication Reconcilliation Current Medication List: was personally reviewed by me Blood Pressure Screening Patient's blood pressure: Normal blood pressure Blood pressure disposition: Did not require urgent referral Impression Primary Impression: Complication of catheter Scribe Attestation The scribe's documentation has been prepared under my direction and personally reviewed by me in its entirety. I confirm that the note above accurately reflects all work, treatment, procedures, and medical decision making performed by me. Departure Information Dispostion Home / Self-Care Referrals Shade Thomas III, M.D. (PCP) Forms HOME CARE DOCUMENTATION FORM, IMPORTANT VISIT INFORMATION Patient Instructions ED Catheter Care [facility] Problem Qualifiers Primary Impression: Complication of catheter Encounter type: initial encounter Qualified Codes: T85.9XXA - Unspecified complication of internal prosthetic device, implant and graft, initial encounter
[2018-06-21 01:58] VITALS: BP 124/50; PULSE 72; O2SAT 96
[2018-06-24] MEDS ORDERED: ENOX80IN SQ (15:25)
[2018-06-24] MEDS ORDERED: WARF5TAB7 PO (15:25)
[2018-06-24] MEDS ORDERED: CLOP1TAB15 PO (15:25)
[2018-06-24] MEDS ORDERED: CARV6.25 PO (15:25)
[2018-06-24] MEDS ORDERED: CLOTRIMAZOLE 1% TOP (15:29)
== END 2018-06-21 02:17 | disposition home or self-care (01) ==
LOC: C.EDB 00:38 → C.EDA 02:17
DX: T83.098A Other mechanical complication of other urinary catheter, initial encounter (principal); Y73.8 Miscellaneous gastroenterology and urology devices associated with adverse incidents, not elsewhere classified; E11.9 Type 2 diabetes mellitus without complications; I25.10 Atherosclerotic heart disease of native coronary artery without angina pectoris; I48.91 Unspecified atrial fibrillation; Z79.84 Long term (current) use of oral hypoglycemic drugs; Z79.01 Long term (current) use of anticoagulants; Z79.899 Other long term (current) drug therapy; Z88.6 Allergy status to analgesic agent; Z88.1 Allergy status to other antibiotic agents; Z88.8 Allergy status to other drugs, medicaments and biological substances

== ENCOUNTER → 2018-06-22 | Outpatient (CLI) | payer OTHER ==
[~2018-06-22] MED LIST changes: +CARV6.25 PO; +CLOP1TAB15 PO; +CLOTRIMAZOLE 1% TOP; +ENOX80IN SQ; +WARF5TAB7 PO
== END | disposition home or self-care (01) ==
LOC: C.LABSPEC 17:40
PROVIDERS: ATTEND Urology
DX: C64.9 Malignant neoplasm of unspecified kidney, except renal pelvis (principal)

== ENCOUNTER → 2018-07-11 | Day surgery (SDC) | payer OTHER ==
[2018-06-24 15:32] VITALS: Ht 177.8 cm; Wt 80.5 kg
[~2018-07-11] VITALS: Ht 177.8 cm; Wt 80.5 kg
[~2018-07-11] MED LIST changes: +ATROPINE SULFATE 0.1 MG/ML 5ML SYR IV PRN; +BELLADONNA/OPIUM SUPP 60 MG SUPP PR ONE; +CEFAZOLIN 2000MG IV PUSH 15 ML IV SCH; -CMD5 PO; -CMD75 PO; -CRG625 PO; +DTR/5 PO; +EpHEDrine SULFATE INJ 50 MG/ML AMP IV PRN; -KFL500 PO; +LACTATED RINGER'S 1000ML 1,000 ML IV SCH; +LIDOCAINE HCL 2% 2 ML VIAL (20MG/ML) ONE; +NITR1CAP16 PO; +NURSING VERBAL MED ORDER ONE; +ONDANSETRON INJ 2 MG/ML 2 ML VIAL IV PRN; +OXYC7.5T65 PO; +OXYCODONE/ACETAMINOPHEN 7.5-325 TAB ONE; +OXYCODONE/ACETAMINOPHEN 7.5-325 TAB PO ONE; -PLV75 PO; +PROPOFOL IV EMULSION 10 MG/ML 20 ML VIAL ONE
[2018-07-11 11:51] VITALS: BP 136/85; PULSE 80; TEMP 37; O2SAT 97
[2018-07-11 11:54] LABS: HEMATOCRIT 27.4 % (42-52); HEMOGLOBIN 8.3 g/dL (14.0-18.0); MEAN CELL VOLUME 94.5 fL (80-100); MEAN CORPUSCULAR HEMOGLOBIN 28.6 pg (25-34); MEAN PLATELET VOLUME 9.7 fL (7.4-10.4); PLATELET COUNT 161 K/uL (130-400); RED CELL DISTRIBUTION WIDTH CV 14.8 % (11.5-14.5); RED CELL DISTRIBUTION WIDTH SD 50.4 fL (36.4-46.3); WHITE BLOOD COUNT 6.12 K/uL (4.8-10.8)
[2018-07-11 11:57] LABS: MEAN CORPUSCULAR HGB CONC 30.3 g/dl (32-36)
[2018-07-11 12:03] LABS: INR 1.4 (0.9-1.1); PTT PATIENT 36.2 SECONDS (21.0-31.0)
--- NOTE | 2018-07-11 14:22 | History & Physical Bridge Note ---
H&P Re-Evaluation Bridge Note: I have examined the patient, reviewed the History & Physical and in the interval since the performance of the History & Physical I have noted the following changes of clinical significance: No changes noted
--- NOTE | 2018-07-11 14:23 | Discharge Instructions ---
Discharge Instructions Date of Service Jul 11, 2018. Admission Reason for Admission: Urethral Stricture Discharge Discharge Diagnosis / Problem: Urethral Stricture Discharge Goals Goal(s): Decrease discomfort, Improve function Activity Recommendations Activity Limitations: resume your previous activity Lifting Limitations: gradually increase as tolerated Exercise/Sports Limitations: gradually increase as tolerated . Instructions / Follow-Up Instructions / Follow-Up May have blood in urine. May have pelvic discomfort. Call if any fevers or chills. Okay to shower. Current Hospital Diet Patient's current hospital diet: Discharge Diet Recommended Diet: Regular Diet Procedures Procedures Performed: Cystoscopy and dilation Pending Studies Studies pending at discharge: no Medical Emergencies . Who to Call and When: Medical Emergencies: If at any time you feel your situation is an emergency, please call 911 immediately. . Non-Emergent Contact Non-Emergency issues call your: Primary Care Provider, Urologist Call Non-Emergent contact if: you have a fever, temperature is above 101, temperature is above 101.5, your pain is worsening, your pain is unusual for you , wound has increased drainage, wound has increased pain . . "Provider Documentation" section prepared by Jorge Galarza,. .
--- NOTE | 2018-07-11 15:34 | [facility] Operative Report ---
Operative Report Operative Date Jul 11, 2018. Pre-Operative Diagnosis Urethral Stricture, Meatal Stricture Post-Operative Diagnosis Same, Distal urethra/meatus lesion, Foreign Body in bladder. Procedure(s) Performed Cystoscopy with biopsy of urethra/meatus, urethral dilation, and meatal dilation and removal of foriegn body of bladder and difficult browning placement. 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 Foreign body bladder 2. lesion distal urethra/meatus Drains 22 Fr Catheter Anesthesia Type MAC Complication(s) none Disposition Recovery Room / PACU Indications Severe stricture and stenosis with BXO of glans. Risks and benefits discussed at length. Description of Procedure Patient was consented and brought back to the operating room. Patient was placed under anesthesia in the supine position and moved to the dorsal lithotomy position. Patient was prepped and draped in the regular sterile fashion. A time out was completed. Patient had severe stenosis with BXO of the glans and meatus. A lesion was noted at the meatus significantly decreasing the lumen. This was removed and sent for pathology. The area had to be dilated prior to scope placement. A 30degree Cystoscope was placed into the urethra. Ureteral tissue from the distal urethra was removed and sent with pathology. The urethra was found to also have multiple areas of stricture along the pendulous urethra. These were navigated with a wire and dilated. The bladder was entered and the entire bladder was examined. The UO's were identified. There was some narrowing of the bladder neck, but this was easily bypassed by the scope without issues. The bladder was found to be very trabeculated with thickening. A foreign body was found at the dome. This was grasped and removed. It appeared to be a piece of catheter material, possibly balloon that failed previously. The bladder was irrigated and the body was removed. The bladder was left partially full. The scope was removed. A 22 Fr Catheter was placed. The patient was cleaned, aroused from anesthesia, and transferred to the pacu in stable condition having tolerated the procedure well with no complications. I was present and participated in all aspects of the procedure. The patient will be monitored in the PACU until transferred. . I attest to the content of the Intraoperative Record and any orders documented therein. Any exceptions are noted below.
[2018-07-11 15:40] VITALS: BP 121/58; PULSE 61; TEMP 36.7; O2SAT 97
--- NOTE | 2018-07-11 16:07 | Anesthesiology Progress Note ---
Anesthesia Post Op Note Date & Time Jul 11, 2018 at 16:06 Vital Signs Pain Intensity: 4 Vital Signs Past 12 Hours Date Time Temp Pulse Resp B/P (MAP) Pulse Ox O2 Delivery O2 Flow Rate FiO2 07/11/18 15:40 36.7 61 20 121/58 97 Room Air 07/11/18 11:51 37 80 18 136/85 (102) 97 Room Air Notes Mental Status: alert / awake / arousable, participated in evaluation Pt Amnestic to Procedure: Yes Nausea / Vomiting: adequately controlled Pain: adequately controlled Airway Patency, RR, SpO2: stable & adequate BP & HR: stable & adequate Hydration State: stable & adequate Anesthetic Complications: no major complications apparent
[2018-07-11 16:10] VITALS: BP 152/82; PULSE 63; O2SAT 96
[2018-07-11 16:45] VITALS: BP 145/74; PULSE 60; TEMP 36.9; O2SAT 97
== END | disposition home or self-care (01) ==
LOC: C.ACU 11:16
PROVIDERS: ATTEND Urology
DX: N35.9 Urethral stricture, unspecified (principal); N34.2 Other urethritis; T19.1XXA Foreign body in bladder, initial encounter; I10 Essential (primary) hypertension; I25.10 Atherosclerotic heart disease of native coronary artery without angina pectoris; E11.9 Type 2 diabetes mellitus without complications; Z86.73 Personal history of transient ischemic attack (TIA), and cerebral infarction without residual deficits; Z79.899 Other long term (current) drug therapy; Z79.01 Long term (current) use of anticoagulants; Z79.84 Long term (current) use of oral hypoglycemic drugs; Z88.8 Allergy status to other drugs, medicaments and biological substances; Z88.5 Allergy status to narcotic agent

== ENCOUNTER 2019-01-03 01:22 | Observation (INO) ==
--- NOTE | 2019-01-03 01:41 | Emergency Department Note ---
ED Visit Note I have seen and examined this patient with Shamika Dacosta and generally agree with the treatment plan as discussed. .
[2019-01-03] MEDS ORDERED: NITROGLYCERIN SL 0.4 MG/TAB TAB SL STA (01:42)
[2019-01-03 01:52] LABS: Basophils # (auto) 0.02 K/uL (0-0.2); Basophils % (auto) 0.2 %; Eosinophils # (auto) 0.15 K/uL (0-0.5); Eosinophils % (auto) 1.5 %; Hematocrit (blood only) 25.3 % (42-52); Hemoglobin 8.2 g/dL (14.0-18.0); Immature Granulocytes # (auto) 0.02 K/uL (0.00-0.02); Immature Granulocytes % (auto) 0.2 %; Mean Corpuscular Hgb Conc 32.4 g/dL (32-36); Mean Corpuscular Volume 93.7 fL (80-100); Monocytes # (auto) 2.18 K/uL (0.11-0.59); Monocytes % (auto) 21.8 %; Neutrophils # (auto) 6.74 K/uL (1.4-6.5); Neutrophils % (auto) 67.3 %; Platelet Count 129 K/uL (130-400); RDW Coefficient of Variation 13.6 % (11.5-14.5); RDW Standard Deviation 46.3 fL (36.4-46.3); White Blood Count 10.01 K/uL (4.8-10.8)
[2019-01-03 02:08] LABS: Partial Thromboplastin Ratio 1.8; Prothrombin Time 19.4 Seconds (9.0-12.0)
[2019-01-03 02:09] LABS: Albumin Level 3.7 gm/dl (3.4-5.0); Calcium 8.7 mg/dl (8.5-10.1); Est GFR (African American) 37.3; Est GFR (Non-African American) 32.2
[2019-01-03 02:14] LABS: Albumin Globulin Ratio 0.9 (0.9-2); Bilirubin,Total 0.6 mg/dl (0.2-1); Globulin 4.1 gm/dl (2.5-4.0); Total Protein 7.8 gm/dl (6.4-8.2); Troponin I 0.044 ng/ml (0-0.045)
[2019-01-03 02:15] LABS: Partial Thromboplastin Time 45.8 Seconds (21.0-31.0)
[2019-01-03 02:20] LABS: RBC Morphology Unremarkable
--- NOTE | 2019-01-03 02:40 | Emergency Department Note ---
History of Present Illness General Chief complaint: Chest Pain Stated complaint: CHEST PAIN History of Present Illness Maximum Pain Intensity: 4 This 78-year-old presents to the ER complaining of chest pain Location: Left chest Quality: Achy Severity: Moderate Duration: Today Timing: Today Context: Pain persisted and patient came in Modifying factors: better with rest; worse with deep breathing Patient has extensive heart history. He is a pacemaker. He follows with Dr. Alexander. Patient denies fall, diaphoresis, nausea, abdominal pain, increasing leg pain or swelling, flulike illness. He is concerned he is having another heart attack. Home Medications Home Medications Medication Instructions Recorded Confirmed Type TESTOSTERONE GEL 1 applic TOPICAL QAM #0 10/12/17 01/03/19 History carvedilol 6.25 mg PO BIDM 08/16/18 01/03/19 History clopidogrel [Plavix] 75 mg PO QAM 08/16/18 01/03/19 History coenzyme Q10 [Co Q-10] 10 mg PO QAM 08/16/18 01/03/19 History cyanocobalamin (vitamin B-12) 1,000 mcg PO QAM 08/16/18 01/03/19 History digoxin 0.125 mg PO Q2D 08/16/18 01/03/19 History ferrous gluconate 324 mg PO QAM 08/16/18 01/03/19 History furosemide 40 mg PO QAM 08/16/18 01/03/19 History losartan 25 mg PO QAM 08/16/18 01/03/19 History metformin 1,000 mg PO QAM 08/16/18 01/03/19 History multivitamin [Multiple Vitamins] 1 tab PO QAM 08/16/18 01/03/19 History nitroglycerin [Nitrostat] 0.4 mg SUBLINGUAL UD PRN 08/16/18 01/03/19 History pantoprazole [Protonix] 40 mg PO QAM 08/16/18 01/03/19 History rosuvastatin [Crestor] 20 mg PO QAM 08/16/18 01/03/19 History sertraline 50 mg PO QAM 08/16/18 01/03/19 History warfarin [Coumadin] 5 mg PO 5XWK 08/16/18 01/03/19 History warfarin [Coumadin] 7.5 mg PO 2XWK 08/16/18 01/03/19 History ciprofloxacin HCl 500 mg PO BID #10 tab 08/19/18 01/03/19 Rx Allergies Allergy/AdvReac Type Severity Reaction Status Date / Time fentanyl Allergy Severe Decreased Verified 01/03/19 02:14 oxygen saturation, low RR, unresponsive midazolam Allergy Severe Decreased Verified 01/03/19 02:14 oxygen saturation, low RR, unresponsive. codeine Allergy Unknown GI SYMPTOMS Verified 01/03/19 02:14 BRIANA Inhibitors AdvReac Mild cough, Verified 01/03/19 02:14 cefuroxime AdvReac Mild GI SYMPTOMS Verified 01/03/19 02:14 Past Med/Surg History Medical History Depression (Chronic) HTN (hypertension) (Chronic) History of renal carcinoma (Chronic) CKD (chronic kidney disease), stage III (Chronic) Chronic systolic heart failure (Chronic) Chronic anemia (Chronic) Atrial fibrillation (Chronic) CAD (coronary artery disease) (Chronic) "2005 - PCI to LAD cath 2011 - no significant obstructive disease" DM type 2 (diabetes mellitus, type 2) (Chronic) Ischemic cardiomyopathy (Chronic) "echo 08/2015 - EF 25-30%, moderate tricuspid regurgitation" CVA (cerebral vascular accident) (Chronic) Squamous cell carcinoma (Chronic) Basal cell carcinoma (Chronic) V tach (Chronic) "s/p AICD placement" Cardiac defibrillator in place (Chronic) Surgical History History of cataract surgery (Chronic) History of cardiac catheterization (Chronic) History of prior ablation treatment (Chronic) CT guided tissue ablation R kidney Family History Other CAD (coronary artery disease) Diabetes Stomach cancer Social History marital status: Current Living Situation: Spouse Feels Safe at Home: Yes Smoking Status: Former smoker Second Hand Exposure: No Hx Alcohol Use: No Hx Substance Use: No Beliefs That Will Affect Care: None Preferred Language: Macedonian Visual Impairment: No Limitations Review of Systems All systems reviewed & are unremarkable except as noted in HPI & below Physical Exam Vital Signs Vital Signs - 24 hr 01/03/19 01:26 01/03/19 01:38 01/03/19 01:40 Temperature 37.0 C Temperature Source Oral Sepsis Recent Fever Within 48 Hours No Sepsis Action Taken by Nursing No Action Required Pulse Rate 63 66 68 Respiratory Rate 18 16 18 Respiratory Effort / Characteristics Non-Labored Spontaneous Respiratory Depth Normal Respiratory Pattern Regular Blood Pressure 130/65 134/89 Blood Pressure Mean 86 104 Blood Pressure Position Sitting Pulse Oximetry 96 95 Oxygen Delivery Method Room Air 01/03/19 01:41 01/03/19 02:00 01/03/19 02:01 Temperature Temperature Source Sepsis Recent Fever Within 48 Hours Sepsis Action Taken by Nursing Pulse Rate 69 61 Respiratory Rate 15 18 Respiratory Effort / Characteristics Respiratory Depth Respiratory Pattern Blood Pressure 117/62 Blood Pressure Mean 80 Blood Pressure Position Pulse Oximetry 91 94 Oxygen Delivery Method Room Air VITALS: Vitals are noted on the nurse's note and reviewed by myself. Vital signs stable. GENERAL: Pleasant elderly male, in no acute distress, nondiaphoretic, well- developed well-nourished. SKIN: The skin was without rashes, erythema, edema, or bruising. There is no tenting of the skin. Capillary reflex less than 2 seconds. HEAD: Normocephalic atraumatic. EARS: External auditory canals clear, tympanic membranes pearly pereira without erythema or effusion bilaterally. EYES: Pupils equal round and reactive to light and accommodation. Conjunctivae without injection, sclerae without icterus. Extraocular movements intact. NOSE: Patent, turbinates without inflammation or discharge. MOUTH: Mucous membranes moist. Pharynx without erythema or exudate. Uvula midline. Airway patent. Tongue does not deviate. NECK: Supple without nuchal rigidity. No lymphadenopathy. No thyromegaly. Cervical spine is nontender. No JVD. HEART: Irregularly irregular rate and rhythm LUNGS: Clear to auscultation bilaterally without wheezes, rales or rhonchi. No retractions or accessory muscle use. ABDOMEN: Positive bowel sounds x 4. Normal tympanic percussion. Soft, nontender, without masses or organomegaly. Tovar sign negative. No guarding or rebound tenderness. No CVA tenderness MUSCULOSKELETAL: No muscle atrophy, erythema, noted. NEURO: Patient was alert and oriented to person place and time. Normal sensation to light and sharp touch. No focal neurological deficits. Course Administered Medications Discontinued Medications Nitroglycerin (Nitrostat) 0.4 mg SL NOW STA Stop: 01/03/19 01:43 Last Admin: 01/03/19 01:47 Dose: 0.4 mg Medical Decision Making Medical Records Attestation: I reviewed the patient's medical records. Home Medications Current Medication List: was personally reviewed by me Laboratory Data Attestation: I reviewed the patient's lab results. Result diagrams: 01/03/19 01:37 01/03/19 01:37 Lab Results 01/03/19 01/03/19 01/03/19 Range/Units 01:37 01:37 01:37 WBC 10.01 (4.8-10.8) K/uL RBC 2.70 L (4.7-6.1) M/uL Hgb 8.2 L (14.0-18.0) g/dL Hct 25.3 L (42-52) % MCV 93.7 (80-100) fL MCH 30.4 (25-34) pg MCHC 32.4 (32-36) g/dL RDW Std Deviation 46.3 (36.4-46.3) fL RDW Coeff of Dung 13.6 (11.5-14.5) % Plt Count 129 L (130-400) K/uL MPV 10.0 (7.4-10.4) fL Immature Gran % (Auto) 0.2 % Neut % (Auto) 67.3 % Lymph % (Auto) 9.0 % Cannon % (Auto) 21.8 % Eos % (Auto) 1.5 % Baso % (Auto) 0.2 % Immature Gran # (Auto) 0.02 (0.00-0.02) K/uL Neut # (Auto) 6.74 H (1.4-6.5) K/uL Lymph # (Auto) 0.90 L (1.2-3.4) K/uL Cannon # (Auto) 2.18 H (0.11-0.59) K/uL Eos # (Auto) 0.15 (0-0.5) K/uL Baso # (Auto) 0.02 (0-0.2) K/uL RBC Morphology Unremarkable PT 19.4 H (9.0-12.0) Seconds INR 2.0 H (0.9-1.1) APTT 45.8 H* (21.0-31.0) Seconds PTT Ratio 1.8 Sodium 137 (136-145) mmol/L Potassium 4.0 (3.5-5.1) mmol/L Chloride 103 (98-107) mmol/L Carbon Dioxide 29 (21-32) mmol/L Anion Gap 5.0 (3-11) BUN 52 H (7-18) mg/dl Creatinine 1.93 H (0.6-1.4) mg/dl Est Cr Clr Drug Dosing 32.0 ml/min Est GFR ( Amer) 37.3 Est GFR (Non-Af Amer) 32.2 BUN/Creatinine Ratio 27.0 H (10-20) Glucose 118 H (70-99) mg/dl Calcium 8.7 (8.5-10.1) mg/dl Total Bilirubin 0.6 (0.2-1) mg/dl AST 26 (15-37) U/L ALT 31 (12-78) U/L Alkaline Phosphatase 72 (45-117) U/L POC Troponin I (0-0.045) ng/ml Troponin I 0.044 (0-0.045) ng/ml Total Protein 7.8 (6.4-8.2) gm/dl Albumin 3.7 (3.4-5.0) gm/dl Globulin 4.1 H (2.5-4.0) gm/dl Albumin/Globulin Ratio 0.9 (0.9-2) Lipase 154 (73-393) U/L 01/03/19 Range/Units 01:41 WBC (4.8-10.8) K/uL RBC (4.7-6.1) M/uL Hgb (14.0-18.0) g/dL Hct (42-52) % MCV (80-100) fL MCH (25-34) pg MCHC (32-36) g/dL RDW Std Deviation (36.4-46.3) fL RDW Coeff of Dung (11.5-14.5) % Plt Count (130-400) K/uL MPV (7.4-10.4) fL Immature Gran % (Auto) % Neut % (Auto) % Lymph % (Auto) % Cannon % (Auto) % Eos % (Auto) % Baso % (Auto) % Immature Gran # (Auto) (0.00-0.02) K/uL Neut # (Auto) (1.4-6.5) K/uL Lymph # (Auto) (1.2-3.4) K/uL Cannon # (Auto) (0.11-0.59) K/uL Eos # (Auto) (0-0.5) K/uL Baso # (Auto) (0-0.2) K/uL RBC Morphology PT (9.0-12.0) Seconds INR (0.9-1.1) APTT (21.0-31.0) Seconds PTT Ratio Sodium (136-145) mmol/L Potassium (3.5-5.1) mmol/L Chloride (98-107) mmol/L Carbon Dioxide (21-32) mmol/L Anion Gap (3-11) BUN (7-18) mg/dl Creatinine (0.6-1.4) mg/dl Est Cr Clr Drug Dosing ml/min Est GFR ( Amer) Est GFR (Non-Af Amer) BUN/Creatinine Ratio (10-20) Glucose (70-99) mg/dl Calcium (8.5-10.1) mg/dl Total Bilirubin (0.2-1) mg/dl AST (15-37) U/L ALT (12-78) U/L Alkaline Phosphatase (45-117) U/L POC Troponin I 0.03 (0-0.045) ng/ml Troponin I (0-0.045) ng/ml Total Protein (6.4-8.2) gm/dl Albumin (3.4-5.0) gm/dl Globulin (2.5-4.0) gm/dl Albumin/Globulin Ratio (0.9-2) Lipase (73-393) U/L MDM Narrative Prior records/ancillary studies reviewed. Triage Nursing notes reviewed. Additional history obtained from family. The patient's history was concerning for chest pain. Differential diagnosis: Etiologies such as cardiac ischemia, aortic dissection, pulmonary embolism, pneumonia, pneumothorax, musculoskeletal, infections, pericarditis, myocarditis , esophageal rupture, gastrointestinal, as well as others were entertained. Physical examination: As above. ER treatment provided: Nitroglycerin On reassessment the patient felt better. Diagnostic interpretation by me: The electrocardiogram irregularly irregular with a right bundle branch block with no acute ST-T wave changes interpreted by myself. Impression atrial fibrillation with a right bundle branch block interpreted by myself. Repeat EKG is unchanged. I think arrhythmia is unlikely. EKG shows normal sinus rhythm with no interval abnormalities such as QT prolongation or WPW. There are no findings to suggest Brugada syndrome. Cardiac monitoring in the emergency department reveals no tachycardic or bradycardic dysrhythmia. Hypertrophic cardiomyopathy was considered but there are no clear historical elements pointing toward this. EKG is not suggestive. The labs revealed negative troponin. Imaging studies: Chest x-ray with no acute consolidation, pneumothorax or free of my interpretation HEART SCORE: Hx: high/mod/low suspicion: 1 ECG: ST depression/nonspecific changes/normal: 0 Age: Greater than 65/45-64/less than 45: 2 Risk factors: (Hypertension, hyperlipidemia, diabetes, coronary disease, tobacco use, cocaine use): 4 Troponin: Greater than 2 times normal limits/1-2 times normal limits/normal: 0 Total: 7 Consultation: A consultation was placed with the hospitalist. The case was discussed and diagnostics were reviewed. The patient was evaluated in the ER for further treatment. Exam and history seem consistent with chest pain with concerns for cardiac in etiology. Patient felt much better after the nitroglycerin. Repeat EKG is unchanged. Heart score is high. First troponin is negative. Medicine was consulted. Patient is agreeable treatment plan of admission. By the evaluation outlined above emergent etiologies such as aortic dissection , pulmonary embolism, pneumonia, pneumothorax, infections, pericarditis, myocarditis, gastrointestinal, as well as others were deemed relatively unlikely. The pt informed about the findings as listed above. All questions were answered and pleased with the treatment. Case reviewed with my attending The chart was completed utilizing [employer] Speech voice recognition software. Grammatical errors, random word insertions, pronoun errors, and incomplete sentences are an occassional consequence of this system due to software limitations, ambient noise, and hardware issues. Any formal questions or concerns about the content, text, or information contained within the body of this dictation should be directly addressed to the physician cashier assistant for clarification. Impression & Plan Atypical chest pain Discharge Plan Visit Data Chief Complaint: Chest Pain Stated Complaint: CHEST PAIN ED Provider: Fransico Culver ED Midlevel Provider: Shamika Dacosta Discharge Problem: Atypical chest pain Patient Disposition: Being Evaluated by Hospitalist Condition: Fair Forms Stand Alone Forms: Call Back Authorization, My [facility] Prescriptions Prescriptions: No Action TESTOSTERONE GEL 1 applic Topical QAM Qty: 0 RF: 0 pantoprazole [Protonix] 40 mg Tablet,Delayed Release (Dr/Ec) 40 mg PO QAM RF: 0 carvedilol 6.25 mg Tablet 6.25 mg PO BIDM RF: 0 nitroglycerin [Nitrostat] 0.4 mg Tablet, Sublingual 0.4 mg Sublingual UD PRN (Reason: Chest Pain) RF: 0 metformin 1,000 mg Tablet Extended Release 24hr 1,000 mg PO QAM RF: 0 losartan 25 mg Tablet 25 mg PO QAM RF: 0 warfarin [Coumadin] 7.5 mg Tablet 7.5 mg PO 2XWK RF: 0 warfarin [Coumadin] 5 mg Tablet 5 mg PO 5XWK RF: 0 clopidogrel [Plavix] 75 mg Tablet 75 mg PO QAM RF: 0 sertraline 50 mg Tablet 50 mg PO QAM RF: 0 coenzyme Q10 [Co Q-10] 10 mg Capsule 10 mg PO QAM RF: 0 digoxin 125 mcg Tablet 0.125 mg PO Q2D RF: 0 cyanocobalamin (vitamin B-12) 1,000 mcg Tablet 1,000 mcg PO QAM RF: 0 ferrous gluconate 324 mg (37.5 mg iron) Tablet 324 mg PO QAM RF: 0 rosuvastatin [Crestor] 20 mg Tablet 20 mg PO QAM RF: 0 multivitamin [Multiple Vitamins] Tablet 1 tab PO QAM RF: 0 furosemide 20 mg Tablet 40 mg PO QAM RF: 0 ciprofloxacin HCl 500 mg tablet 500 mg PO BID Qty: 10 RF: 0 Referrals Referrals: Shade Thomas [Primary Care Provider] -
[2019-01-03] MEDS ORDERED: ALUMINUM/MAGNESIUM SUSP 30 ML UDC PO PRN (04:25)
[2019-01-03] MEDS ORDERED: ONDANSETRON INJ 2 MG/ML 2 ML VIAL IV PRN (04:25)
[2019-01-03] MEDS ORDERED: NITROGLYCERIN SL 0.4 MG/TAB TAB SL PRN ×2 (04:25)
[2019-01-03] MEDS ORDERED: ACETAMINOPHEN 325 MG TAB ONE (04:33)
--- NOTE | 2019-01-03 05:12 | History and Physical Report ---
DATE OF ADMISSION: 01/03/2019 CHIEF COMPLAINT: Chest pain. 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 Comes with chest pain. The patient lives with his daughter. Since couple of days, he is not feeling good. He is having chest pain. It is more on taking deep breath and also generally he is not feeling good. It was not getting better, so came to the ER. In the ER, he was given nitro, and the pain is almost gone. The pain is located all over the chest, about 5/10 in severity, radiated to his neck yesterday. This is what worried him and brought him to the ER. Denies any shortness of breath. No cough, no fever, no chills, no nausea, no headaches. Appetite is okay. No cough, no difficulty swallowing. No nausea, no vomiting, no abdominal pain. Normal bowel and bladder movements. Ambulating okay at home. ALLERGIES: TO BRIANA INHIBITOR, CEFTIN, CODEINE. PAST MEDICAL HISTORY: As mentioned above. PAST SURGICAL HISTORY: Heart catheterization, CT-guided tissue ablation, status post defibrillator placement, cataract surgery. MEDICATIONS: The patient is on metformin 1000 mg p.o. daily, Testosterone 50 mg /%Gm apply tube topically to shoulder once daily, Coumadin 5 mg and 7.5 mg tablets as directed, Cozaar 25 mg p.o. daily, Crestor 20 mg p.o. daily, Zoloft 50 mg p.o. daily, Lasix 60 mg p.o. daily, Paxil 75 mg p.o. daily, Protonix 40 mg p.o. daily, Toviaz 8 mg p.o. daily, Myrbetriq 25 mg p.o. daily, Coreg 6.25 mg p.o. b.i.d., Nitrostat 0.4 mg sublingual p.r.n., Coenzyme Q10 one capsule daily, digoxin 125 mcg p.o. daily, vitamin B12 1000 mcg p.o. daily, ferrous gluconate 324 mg p.o. daily. FAMILY HISTORY: Significant for sister has CHF, father has [place], mother has [place], sister has stomach cancer. SOCIAL HISTORY: He is , lives with and daughter. No smoking history. No alcohol, no drug use. REVIEW OF SYMPTOMS: As per HPI. Rest of review of systems negative. PHYSICAL EXAMINATION: GENERAL: The patient is old and frail, not in acute distress. VITAL SIGNS: Temperature 37, pulse 61, respiratory rate 18, blood pressure 121/82, oxygen 95% room air. HEENT: No pallor, no icterus. Pupils equal, round, and reactive to light. NECK: No JVD, no neck masses, no carotid bruits. CARDIOVASCULAR: S1, S2 heard, regular rate. No murmurs. RESPIRATORY SYSTEM: Normal AP diameter. No accessory muscle use. Diminished breath sounds. No wheezing, no crackles. ABDOMEN: Soft, bowel sounds present. Nontender. No distention. CENTRAL NERVOUS SYSTEM: Cranial nerves II-XII grossly intact. Nonfocal. EXTREMITIES: No edema, no erythema. LABORATORY DATA: WBC 10, hemoglobin 8.2, hematocrit 25.3, platelets 129. PT 19.4, INR 2, APTT 48.8. Sodium 137, potassium 4, chloride 103, bicarbonate 29, BUN 52, creatinine 1.9, serum glucose 118, calcium 8.7, total bilirubin 0.6, AST 26, ALT 31, alkaline phosphatase 72. Troponin 1 of 0.044. Digoxin 0.7. IMAGING DATA: Chest x-ray, no acute findings seen. EKG: AFib with PVCs, rate of 90, right bundle branch block seen. No significant change from previous EKG. ASSESSMENT AND PLAN: This is a 78-year-old male who presents with chest pain. 1. Chest pain, more with taking deep breath, could be pleurisy, but because the pain also got resolved with the nitro and because of his history, we will observe in tele floor. Serial cardiac enzymes, echocardiogram and consult cardiology for further recommendations. We will keep him n.p.o. for now. 2. History of atrial fibrillation, on Coreg and Myrbetriq and Coumadin. INR therapeutic. Will follow the PT/INR. 3. History of coronary artery disease status post stent, on beta bryan, statin, Plavix. 4. History of chronic systolic CHF, EF of 35%, and also right-sided heart failure, on Lasix 60 mg daily and losartan and Coreg. Currently seems stable.Holding Lasix and Cozaar for TOBIN. Will monitor for volume overload. 5. History of liver cirrhosis, on diuretics, follows with GI. 6. History of gastroesophageal reflux disease, on PPI. 7. History of iron deficiency anemia, anemia of chronic kidney disease. Hemoglobin 8.2. Around baseline.On Iron pills. Follow Hemoccult stool. 8. Thrombocytopenia, borderline, platelets 127, seems to be chronic. We will monitor the labs. 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 10. History of CVA, on Plavix, Coumadin, and statin. 11. History of ventricular tachycardia status post defibrillator. Recently the device was checked and was fine. 12. Diabetes, on metformin, which we will hold. Place him on insulin sliding scale and follow HbA1c levels. 13. History of hypogonadism, on testosterone patch. 14. [id number] kidney disease, stage III. Baseline creatinine around 1.7, presently creatinine of 1.9. Follow the labs in the a.m. Lasix and Cozaar held. 15. Deep venous thrombosis prophylaxis, on Coumadin. INR is therapeutic. DISPOSITION: Observation in medical floor. PT and OT prior to discharge. Social service to help with discharge planning. Level 1 full code. MTDD
[2019-01-03 05:33] LABS: Basophils # (auto) 0.03 K/uL (0-0.2); Basophils % (auto) 0.3 %; Eosinophils # (auto) 0.13 K/uL (0-0.5); Eosinophils % (auto) 1.2 %; Hematocrit (blood only) 25.9 % (42-52); Hemoglobin 8.3 g/dL (14.0-18.0); Immature Granulocytes # (auto) 0.03 K/uL (0.00-0.02); Immature Granulocytes % (auto) 0.3 %; Lymphocytes # (auto) 0.88 K/uL (1.2-3.4); Lymphocytes % (auto) 8.2 %; Mean Corpuscular Volume 93.5 fL (80-100); Mean Platelet Volume 10.2 fL (7.4-10.4); Monocytes # (auto) 2.15 K/uL (0.11-0.59); Monocytes % (auto) 19.9 %; Neutrophils # (auto) 7.57 K/uL (1.4-6.5); Neutrophils % (auto) 70.1 %; Platelet Count 126 K/uL (130-400); RDW Coefficient of Variation 13.7 % (11.5-14.5); RDW Standard Deviation 46.8 fL (36.4-46.3); Red Blood Count 2.77 M/uL (4.7-6.1); White Blood Count 10.79 K/uL (4.8-10.8)
[2019-01-03 05:42] LABS: INR 2.2 (0.9-1.1); Prothrombin Time 20.9 Seconds (9.0-12.0)
[2019-01-03 05:50] LABS: RBC Morphology Unremarkable
[2019-01-03 05:52] LABS: BUN Creatinine Ratio 26.7 (10-20); Creatinine Clr Calc Pharmacy 32.2 ml/min; Est GFR (African American) 37.5; Est GFR (Non-African American) 32.4; Magnesium 2.4 mg/dl (1.8-2.4); Potassium 4.2 mmol/L (3.5-5.1)
[2019-01-03 06:04] LABS: Troponin I 0.049 ng/ml (0-0.045)
[2019-01-03 06:36] LABS: Estimated Average Glucose 123 mg/dl
--- NOTE | 2019-01-03 07:13 | XRay Report ---
XR chest 1V portable HISTORY: Atypical Chest Pain COMPARISON: Chest 10/28/2018. FINDINGS: No pneumothorax. The heart remains moderately enlarged. Progressive interstitial vascular t hickening consistent with mild pulmonary edema. Trace bilateral pleural effusions. Left-sided single lead pacemaker/defibrillator. IMPRESSION: Interval progression of the mild interstitial pulmonary edema and trace bilateral pleural effusions. Electronically signed by: Warner Nelson M.D. 01/03/2019 7:12 AM
[2019-01-03] MEDS: INSULIN ASPART 100 UNITS/ML 3 ML PEN SC SCH ×2 (07:53→11:51)
[2019-01-03] MEDS ORDERED: TESTOSTERONE~ORDER AWAITING ACTION SCH (08:00)
[2019-01-03] MEDS ORDERED: CARVEDILOL 6.25 MG TAB PO SCH (08:00)
[2019-01-03] MEDS ORDERED: TOVIAZ~ORDER AWAITING ACTION SCH (08:00)
[2019-01-03] MEDS ORDERED: MIRABEGRON ER 25 MG TAB PO SCH (09:00)
[2019-01-03] MEDS ORDERED: CLOPIDOGREL BISULFATE 75 MG TAB PO SCH (09:00)
[2019-01-03] MEDS ORDERED: FERROUS GLUCONATE 324 MG TAB PO SCH (09:00)
[2019-01-03] MEDS ORDERED: PANTOprazole 40 MG TAB PO SCH (09:00)
[2019-01-03] MEDS ORDERED: ROSUVASTATIN CALCIUM 20 MG TAB PO SCH (09:00)
[2019-01-03] MEDS ORDERED: NON-FORMULARY MEDICATION (Coenzyme Q10 [Co Q-10] 10 MG) PO SCH (09:00)
[2019-01-03] MEDS ORDERED: CYANOCOBALAMIN 500 MCG TABLET (VITAMIN B-12) PO SCH (09:00)
[2019-01-03] MEDS ORDERED: SERTRALINE HCL 50 MG TABLET PO SCH (09:00)
[2019-01-03] MEDS ORDERED: MULTIVITAMIN TAB PO SCH (09:00)
[2019-01-03] MEDS: ACETAMINOPHEN 325 MG TAB PO PRN ×2 (09:50→15:10)
[2019-01-03] MEDS ORDERED: FUROSEMIDE 20 MG TAB PO SCH (10:15)
[2019-01-03] MEDS ORDERED: LOSARTAN POTASSIUM 25 MG TAB PO SCH (10:15)
[2019-01-03] MEDS ORDERED: PERFLUTREN LIPID MICROSPHERE (DEFINITY) IV ONE (11:38)
--- NOTE | 2019-01-03 13:28 | Consultation Report ---
DATE OF CONSULTATION: 01/03/2019 INPATIENT CARDIOLOGY CONSULTATION CONSULTATION REQUESTED BY: Dr. Keene. REASON FOR CONSULTATION: Chest pain. HISTORY OF PRESENT ILLNESS: Mr. Cobian is a very pleasant yet cardiovascularly complex 78-year-old gentleman who follows with Dr. Alexander of our cardiology practice. He presented to [facility] Emergency Department early in the a.m. of 01/03/2019 with complaints of back and chest pain. The patient states that he was in his normal state of health until yesterday afternoon when he had a hard time getting comfortable sitting down. He developed some back pain in his left subscapular area and it would radiate around to the front of his chest. He described it as sharp and stabbing and constant, but it was worsened with movement or deep inhalation. His daughter became concerned and brought him into the Emergency Department. In the ER, his initial workup was unremarkable. He is admitted to telemetry and the patient states his pain has been continuous overnight, has not really changed and again is reproducible with deep inhalation, twisting of his thorax or movement of his left arm. Upon further questioning, the patient admits that he has been lifting 30 packs of soda with his left hand lately, but denies any specific trauma to the left side of his chest or back. Otherwise, he states he has been feeling well as of late and taking his medications as directed. PAST SURGICAL HISTORY: 1. Cardiac catheterization in 2011 with PCI to the LAD and repeat cardiac catheterization in 2011 showing no obstruction. 2. Single lead ICD placement. 3. Cataract surgery. 4. Nasal fracture repair. MEDICAL ILLNESSES: 1. 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 2. History of sustained V-tach, status post defibrillator placement in 2011 with a single lead Medtronic device. 3. Cardiac catheterization, status post PCI to the LAD. 4. Chronic atrial fibrillation. 5. History of left MCA stroke. 6. Thrombotic IN in 2006. 7. History of cirrhosis and SBP. FAMILY HISTORY: Noncontributory. SOCIAL HISTORY: Denies any alcohol, tobacco or recreational drug use. REVIEW OF SYSTEMS: As per HPI, all other review of systems reviewed and negative at this time. ALLERGIES: 1. BRIANA INHIBITOR. 2. CEFTIN. 3. CODEINE. MEDICATIONS AN OUTPATIENT: 1. Plavix 75 mg daily. 2. Coumadin as directed by the Coumadin clinic. 3. Losartan 25 mg daily. 4. Crestor 20 mg daily. 5. Lasix 60 mg daily. 6. Coreg 6.25 mg b.i.d. 7. Digoxin 125 mcg daily. 8. Protonix daily. 9. Zoloft daily. 10. Metformin daily. 11. Testosterone cream. PHYSICAL EXAMINATION: VITALS: Temperature 36.4, pulse 68, respiratory rate 12, blood pressure 146/58. GENERAL: Awake, alert, oriented x3, frail in appearance. HEENT: Normocephalic, atraumatic. Pupils equal, round, react to light and accommodation. Extraocular muscles intact. Anicteric sclerae. Moist mucous membranes. Very hard of hearing. NECK: No JVD, no bruit. CARDIOVASCULAR: Irregularly irregular, unable to appreciate any murmurs, rubs or gallops. PULMONARY: Clear to auscultation bilaterally. No rales, rhonchi, or wheezing. ABDOMEN: Bowel sounds x4, soft. No rebound, guarding, tenderness. No organomegaly. EXTREMITIES: No clubbing, cyanosis or edema. +2 pedal pulses bilaterally. SKIN: Warm and dry. TEST RESULTS: Most recent echocardiogram performed 08/17/2018 was read as no significant change compared to previous study of 2017, normal LV chamber size and wall thickness, mildly reduced LV systolic function, EF 30-35%, flattened septum consistent with RV pressure/volume overload, focal apical akinesis, otherwise moderate global hypokinesis, moderate aortic valve sclerosis without stenosis, severely dilated right ventricle with reduced RV systolic function, severe tricuspid regurgitation. IMPRESSION: 1. Musculoskeletal chest pain, reproducible with palpation of the patient's left trapezius and left pectoralis major. 2. History of mixed ischemic and nonischemic cardiomyopathy. 3. History of sustained ventricular tachycardia, status post ICD placement. 4. Chronic atrial fibrillation, on chronic Coumadin therapy. 5. Coronary artery disease status post PCI to the LAD. RECOMMENDATIONS: It was my pleasure to see Mr. Cobian in consultation today. From a cardiac standpoint, given the fact that his symptoms are completely reproducible, I do not see any cardiac component to his chest pain, so no further cardiac testing or intervention is necessary at this time. It is okay to discharge the patient to home from a cardiac standpoint. No medication changes will be made.
--- NOTE | 2019-01-03 14:12 | Hospitalist Progress Note ---
Date of Service January 03, 2019 Assessment & Plan (1) Atypical chest pain: This is a 78-year-old male who presents with chest pain non cardiac chest pain secondary to muscle pain likely from left trapezius muscle patient was evaluated by occupational therapy and no focal motor deficits patient had evaluation by cardiology service and echocardiogram on this admission compared to previous study of 08/17/18 shows Left ventricular systolic function has improved and PASO has reduced to 40 mmgHg. EF is better at 40 to 45 % patient can take acetaminophen at home 650 mg every 6 hours as needed for pain. patient should not take more than 3000 mg of acetaminophen daily patient can put ice on left shoulder area patient should follow up with primary care doctor History of chronic systolic CHF on Lasix 60 mg daily and losartan and Coreg. mild Acute kidney injury on chronic kidney disease, stage III. Baseline creatinine around 1.7, admission creatinine of 1.93, follow up repeat as 1.[address] Ngo and that Lasix and Losartan should be continued because of only mild creatinine elevations and benefits to cardiac health outweighs the risks History of coronary artery disease status post stent, on beta bryan, statin, Plavix. History of atrial fibrillation on Coreg and Myrbetriq and Coumadin Anticoagulated on anticoagulation treatment INR therapeutic. continue current home dose coumadin Diabetes Mellitus Type 2 and controlled without use of intermodal customer service insulin HbA1c 5.9 continue home dose metformin, History of liver cirrhosis, on diuretics, follows with GI. History of gastroesophageal reflux disease, on PPI. History of iron deficiency anemia, anemia of chronic kidney disease. 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 History of ventricular tachycardia status post defibrillator recently the device was checked and was fine no acute telemetry events on this admission History of hypogonadism, on testosterone patch. Deep venous thrombosis prophylaxis, on Coumadin. INR is therapeutic. Discharge Diagnosis non cardiac chest pain secondary to muscle pain likely from left trapezius muscle, chronic systolic congestive heart failure, acute kidney injury, anticoagulated on anticoagulation treatment Discharge Instructions non cardiac chest pain secondary to muscle pain likely from left trapezius muscle patient can take acetaminophen at home 650 mg every 6 hours as needed for pain. patient should not take more than 3000 mg of acetaminophen daily patient can put ice on left shoulder area patient should follow up with primary care doctor 01/06/2019 11:00 AM Provider Shade Thomas III, MD Department [facility] 01/11/2019 3:00 PM Provider PADMINI Lantigua Department Gastroenterology, [facility] 01/18/2019 9:30 AM Provider Patricio Pina MD Department [facility] 01/23/2019 9:15 AM Provider Fercho Martin MD Department Endoscopy, [facility] 01/25/2019 4:00 PM Provider Shade Thomas III, MD Department [facility] Subjective Patient denies acute chest pain currently. The pain is mild tenderness on palpation of the left posterior shoulder where the trapezius muscle is. The patient reports this pain radiated to left chest. Patient denies shortness of breath or palpitations. denies headache or lightheadedness. denies abdominal pain non cardiac chest pain secondary to muscle pain likely from left trapezius muscle patient was evaluated by occupational therapy and no focal motor deficits patient had evaluation by cardiology service and echocardiogram on this admission compared to previous study of 08/17/18 shows Left ventricular systolic function has improved and PASO has reduced to 40 mmgHg. EF is better at 40 to 45 % Discussed discharge instructions with patient and family member at bedside patient can take acetaminophen at home 650 mg every 6 hours as needed for pain. patient should not take more than 3000 mg of acetaminophen daily patient can put ice on left shoulder area patient should follow up with primary care doctor Physical Exam 2 Vital Signs (Past 24 Hours): Last Vital Signs Temp 36.4 C L 01/03/19 11:15 Pulse 68 01/03/19 11:15 Resp 18 01/03/19 11:15 BP 146/58 H 01/03/19 11:15 Pulse Ox 94 01/03/19 11:15 Constitutional: WD/WN, vitals as above Eyes: PERRL, conjunctivae normal, anicteric sclerae EOM intact bilaterally ENMT: external ear and nose normal, oropharynx normal Neck: trachea midline, no thyromegaly Respiratory: normal respiratory effort, lungs clear to auscultation Cardiovascular: Rate/Rhythm: regular rate and regular rhythm Gastrointestinal (Abdomen): normal bowel sounds, soft, nontender, no hepatosplenomegaly Musculoskeletal: no cyanosis or clubbing, extremities motor strength 5/5 ( full range of motion of upper extremities) Head/Neck/Chest: normocephalic and head atraumatic Neurologic: PERRL, EOMI, accommodation nl, no face palsy, no dysarthria Psychiatric: Orientation: alert
--- NOTE | 2019-01-03 14:39 | Discharge Summary ---
Date of Service January 03, 2019 Admission HPI Per Admitting Provider HISTORY OF PRESENT ILLNESS: This is a 78-year-old male with past medical history significant for cirrhosis of liver, chronic kidney disease stage III, history of renal carcinoma right status post ablation, history of left middle cerebral artery stroke in 2014, history of [place], history of combined ishemic and nonischemic cardiomyopathy with EF of around 35 %, CAD status post stent, history of sustained ventricular tachycardia status post defibrillator, history of iron deficiency anemia, history of atrial fibrillation, hypogonadism, diabetes. Comes with chest pain. The patient lives with his daughter. Since couple of days, he is not feeling good. He is having chest pain. It is more on taking deep breath and also generally he is not feeling good. It was not getting better, so came to the ER. In the ER, he was given nitro, and the pain is almost gone. The pain is located all over the chest, about 5/10 in severity, radiated to his neck yesterday. This is what worried him and brought him to the ER. Denies any shortness of breath. No cough, no fever, no chills, no nausea, no headaches. Appetite is okay. No cough, no difficulty swallowing. No nausea, no vomiting, no abdominal pain. Normal bowel and bladder movements. Ambulating okay at home. ALLERGIES: TO BRIANA INHIBITOR, CEFTIN, CODEINE. PAST MEDICAL HISTORY: As mentioned above. PAST SURGICAL HISTORY: Heart catheterization, CT-guided tissue ablation, status post defibrillator placement, cataract surgery. MEDICATIONS: The patient is on metformin 1000 mg p.o. daily, Testosterone 50 mg /%Gm apply tube topically to shoulder once daily, Coumadin 5 mg and 7.5 mg tablets as directed, Cozaar 25 mg p.o. daily, Crestor 20 mg p.o. daily, Zoloft 50 mg p.o. daily, Lasix 60 mg p.o. daily, Paxil 75 mg p.o. daily, Protonix 40 mg p.o. daily, Toviaz 8 mg p.o. daily, Myrbetriq 25 mg p.o. daily, Coreg 6.25 mg p.o. b.i.d., Nitrostat 0.4 mg sublingual p.r.n., Coenzyme Q10 one capsule daily, digoxin 125 mcg p.o. daily, vitamin B12 1000 mcg p.o. daily, ferrous gluconate 324 mg p.o. daily. FAMILY HISTORY: Significant for sister has CHF, father has [place], mother has [place], sister has stomach cancer. SOCIAL HISTORY: He is , lives with and daughter. No smoking history. No alcohol, no drug use. REVIEW OF SYMPTOMS: As per HPI. Rest of review of systems negative. Admission Exam Per Admitting Provider PHYSICAL EXAMINATION: GENERAL: The patient is old and frail, not in acute distress. VITAL SIGNS: Temperature 37, pulse 61, respiratory rate 18, blood pressure 121/82, oxygen 95% room air. HEENT: No pallor, no icterus. Pupils equal, round, and reactive to light. NECK: No JVD, no neck masses, no carotid bruits. CARDIOVASCULAR: S1, S2 heard, regular rate. No murmurs. RESPIRATORY SYSTEM: Normal AP diameter. No accessory muscle use. Diminished breath sounds. No wheezing, no crackles. ABDOMEN: Soft, bowel sounds present. Nontender. No distention. CENTRAL NERVOUS SYSTEM: Cranial nerves II-XII grossly intact. Nonfocal. EXTREMITIES: No edema, no erythema. Principal Diagnosis non cardiac chest pain secondary to muscle pain likely from left trapezius muscle, chronic systolic congestive heart failure, acute kidney injury, anticoagulated on anticoagulation treatment Discharge Exam Constitutional WD/WN, vitals as above Eyes PERRL, conjunctivae normal, anicteric sclerae EOM intact bilaterally ENMT external ear and nose normal, oropharynx normal Neck trachea midline, no thyromegaly Respiratory normal respiratory effort, lungs clear to auscultation Cardiovascular Rate/Rhythm: regular rate and regular rhythm Gastrointestinal (Abdomen) normal bowel sounds, soft, nontender, no hepatosplenomegaly Musculoskeletal no cyanosis or clubbing, extremities motor strength 5/5 (full range of motion of upper extremities) Head/Neck/Chest: normocephalic and head atraumatic Neurologic PERRL, EOMI, accommodation nl, no face palsy, no dysarthria Psychiatric Orientation: alert Discharge Data Allergies Allergy/AdvReac Type Severity Reaction Status Date / Time fentanyl Allergy Severe Decreased Verified 01/03/19 02:14 oxygen saturation, low RR, unresponsive midazolam Allergy Severe Decreased Verified 01/03/19 02:14 oxygen saturation, low RR, unresponsive. codeine Allergy Unknown GI SYMPTOMS Verified 01/03/19 02:14 BRIANA Inhibitors AdvReac Mild cough, Verified 01/03/19 02:14 cefuroxime AdvReac Mild GI SYMPTOMS Verified 01/03/19 02:14 Consultations 01/03/19 02:14 ED Decision to Admit Stat 01/03/19 04:25 Consult Case Management - Discharge Planning Routine 01/03/19 08:00 Consult Cardiology Routine Hospital Course (1) Atypical chest pain: This is a 78-year-old male who presents with chest pain non cardiac chest pain secondary to muscle pain likely from left trapezius muscle patient was evaluated by occupational therapy and no focal motor deficits patient had evaluation by cardiology service and echocardiogram on this admission compared to previous study of 08/17/18 shows Left ventricular systolic function has improved and PASO has reduced to 40 mmgHg. EF is better at 40 to 45 % patient can take acetaminophen at home 650 mg every 6 hours as needed for pain. patient should not take more than 3000 mg of acetaminophen daily patient can put ice on left shoulder area patient should follow up with primary care doctor History of chronic systolic CHF on Lasix 60 mg daily and losartan and Coreg. mild Acute kidney injury on chronic kidney disease, stage III. Baseline creatinine around 1.7, admission creatinine of 1.93, follow up repeat as 1.[address] Ngo and that Lasix and Losartan should be continued because of only mild creatinine elevations and benefits to cardiac health outweighs the risks History of coronary artery disease status post stent, on beta bryan, statin, Plavix. History of atrial fibrillation on Coreg and Myrbetriq and Coumadin Anticoagulated on anticoagulation treatment INR therapeutic. continue current home dose coumadin Diabetes Mellitus Type 2 and controlled without use of care home insulin HbA1c 5.9 continue home dose metformin, History of liver cirrhosis, on diuretics, follows with GI. History of gastroesophageal reflux disease, on PPI. History of iron deficiency anemia, anemia of chronic kidney disease. 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 History of ventricular tachycardia status post defibrillator recently the device was checked and was fine no acute telemetry events on this admission History of hypogonadism, on testosterone patch. Deep venous thrombosis prophylaxis, on Coumadin. INR is therapeutic. Discharge Diagnosis non cardiac chest pain secondary to muscle pain likely from left trapezius muscle, chronic systolic congestive heart failure, acute kidney injury, anticoagulated on anticoagulation treatment Discharge Instructions non cardiac chest pain secondary to muscle pain likely from left trapezius muscle patient can take acetaminophen at home 650 mg every 6 hours as needed for pain. patient should not take more than 3000 mg of acetaminophen daily patient can put ice on left shoulder area patient should follow up with primary care doctor 01/06/2019 11:00 AM Provider Shade Thomas III, MD Department [facility] 01/11/2019 3:00 PM Provider PADMINI Lantigua Department Gastroenterology, [facility] 01/18/2019 9:30 AM Provider Patricio Pina MD Department [facility] 01/23/2019 9:15 AM Provider Fercho Martin MD Department Endoscopy, [facility] 01/25/2019 4:00 PM Provider Shade Thomas III, MD Department [facility] Total Time Total Time Spent Total Time Spent (In Minutes): 40 minutes Total Time Includes: Examination of the Patient, Discharge Planning and Medication Reconciliation Discharge Plan Discharge Items Patient Disposition: Home - Self-Care Reason For Visit: CHEST PAIN Discharge Diagnosis: non cardiac chest pain secondary to muscle pain likely from left trapezius muscle, chronic systolic congestive heart failure, acute kidney injury, anticoagulated on anticoagulation treatment Condition: Fair Discharge Goals: Decrease discomfort Activity: Resume your previous activity Non-emergency contact: Primary Care Provider Call non-emergency contact if: you have any medication questions Diet: Carb Consistent or DM2 and Heart Healthy Addtl Provider Instructions: Discharge Instructions non cardiac chest pain secondary to muscle pain likely from left trapezius muscle patient can take acetaminophen at home 650 mg every 6 hours as needed for pain. patient should not take more than 3000 mg of acetaminophen daily patient can put ice on left shoulder area patient should follow up with primary care doctor 01/06/2019 11:00 AM Provider Shade Thomas III, MD Department [facility] 01/11/2019 3:00 PM Provider PADMINI Lantigua Department Gastroenterology, [facility] 01/18/2019 9:30 AM Provider Patricio Pina MD Department [facility] 01/23/2019 9:15 AM Provider Fercho Martin MD Department Endoscopy, [facility] 01/25/2019 4:00 PM Provider Shade Thomas III, MD Department [facility] Prescriptions: Continue TESTOSTERONE GEL 1 applic Topical QAM Qty: 0 RF: 0 fesoterodine [Toviaz] 8 mg Tablet Extended Release 24 Hr 8 mg PO DAILY RF: 0 mirabegron [Myrbetriq] 25 mg Tablet Extended Release 24 Hr 25 mg PO DAILY RF: 0 pantoprazole [Protonix] 40 mg Tablet,Delayed Release (Dr/Ec) 40 mg PO QAM RF: 0 carvedilol 6.25 mg Tablet 6.25 mg PO BIDM RF: 0 nitroglycerin [Nitrostat] 0.4 mg Tablet, Sublingual 0.4 mg Sublingual UD PRN (Reason: Chest Pain) RF: 0 metformin 1,000 mg Tablet Extended Release 24hr 1,000 mg PO QAM RF: 0 losartan 25 mg Tablet 25 mg PO QAM RF: 0 warfarin [Coumadin] 7.5 mg Tablet 7.5 mg PO 2XWK RF: 0 warfarin [Coumadin] 5 mg Tablet 5 mg PO 5XWK RF: 0 clopidogrel [Plavix] 75 mg Tablet 75 mg PO QAM RF: 0 sertraline 50 mg Tablet 50 mg PO QAM RF: 0 coenzyme Q10 [Co Q-10] 10 mg Capsule 10 mg PO QAM RF: 0 digoxin 125 mcg Tablet 0.125 mg PO Q2D RF: 0 cyanocobalamin (vitamin B-12) 1,000 mcg Tablet 1,000 mcg PO QAM RF: 0 ferrous gluconate 324 mg (37.5 mg iron) Tablet 324 mg PO QAM RF: 0 rosuvastatin [Crestor] 20 mg Tablet 20 mg PO QAM RF: 0 multivitamin [Multiple Vitamins] Tablet 1 tab PO QAM RF: 0 furosemide 20 mg Tablet 60 mg PO QAM RF: 0 Stand-Alone Forms: Call Back Authorization, [facility] Discharge Orders: Discharge Order (Routine); Ordered 01/03/19 Ordered By: Migel Meza Admission Data Admit Date/Time: 01/03/19 03:09 Attending Provider: Migel Meza Admit Provider: Willi Keene Primary Care Provider: Shade Thomas Other Providers: Willi Keene ; Mike Ngo ; Aditya Jimenez ; Rodrigo Alexander ; Jamie Garcia ; Patricio Lou ; Brennen Gomez ; Renu Doe ; Luci Mueller Service: Telemetry
[2019-01-03] MEDS ORDERED: WARFARIN SOD 5 MG TAB PO SCH (16:00)
[2019-01-04] MEDS ORDERED: DIGOXIN 0.125 MG TAB PO SCH (16:00)
[2019-01-06] MEDS ORDERED: WARFARIN SOD 7.5 MG TAB PO SCH (16:00)
== END 2019-01-03 15:37 | disposition home or self-care (01) ==
LOC: ED 01:22 → 2S 01:22

== ENCOUNTER 2019-01-12 16:21 | Inpatient (IN) ==
[2019-01-12 18:23] LABS: Alanine Aminotransferase 26 U/L (12-78); Albumin Globulin Ratio 0.7 (0.9-2); Albumin Level 3.4 gm/dl (3.4-5.0); Alkaline Phosphatase 94 U/L (45-117); Aspartate Aminotransferase 21 U/L (15-37); BUN Creatinine Ratio 17.1 (10-20); Bilirubin,Total 0.4 mg/dl (0.2-1); Blood Urea Nitrogen 82 mg/dl (7-18); Calcium 9.2 mg/dl (8.5-10.1); Carbon Dioxide 23 mmol/L (21-32); Chloride 101 mmol/L (98-107); Est GFR (African American) 12.4; Est GFR (Non-African American) 10.7; Globulin 4.6 gm/dl (2.5-4.0); Glucose 159 mg/dl (70-99); Potassium 5.3 mmol/L (3.5-5.1); Sodium 134 mmol/L (136-145)
[2019-01-12] MEDS ORDERED: ONDANSETRON INJ 2 MG/ML 2 ML VIAL IV STA (18:34)
[2019-01-12 18:38] LABS: Basophils # (auto) 0.02 K/uL (0-0.2); Basophils % (auto) 0.2 %; Eosinophils # (auto) 0.07 K/uL (0-0.5); Eosinophils % (auto) 0.7 %; Hematocrit (blood only) 23.8 % (42-52); Hemoglobin 7.7 g/dL (14.0-18.0); Immature Granulocytes # (auto) 0.03 K/uL (0.00-0.02); Immature Granulocytes % (auto) 0.3 %; Lymphocytes # (auto) 0.87 K/uL (1.2-3.4); Lymphocytes % (auto) 9.1 %; Mean Corpuscular Hgb Conc 32.4 g/dL (32-36); Mean Corpuscular Volume 91.5 fL (80-100); Mean Platelet Volume 10.1 fL (7.4-10.4); Monocytes # (auto) 1.27 K/uL (0.11-0.59); Monocytes % (auto) 13.3 %; Neutrophils # (auto) 7.29 K/uL (1.4-6.5); Neutrophils % (auto) 76.4 %; Platelet Count 262 K/uL (130-400); RDW Coefficient of Variation 14.1 % (11.5-14.5); RDW Standard Deviation 47.3 fL (36.4-46.3); White Blood Count 9.55 K/uL (4.8-10.8)
[2019-01-12] MEDS ORDERED: SODIUM CHLORIDE 0.9% 500 ML IV SCH (18:45)
[2019-01-12 19:19] LABS: Ovalocytes 1+
--- NOTE | 2019-01-12 19:26 | Emergency Department Note ---
Entered by Emely Reeves acting as a scribe for Fercho English DO History of Present Illness General Chief complaint: GI Assessment Stated complaint: HERNIA, POSSIBLE BLOCKAGE Source: patient Mode of arrival: ambulatory Limitations: no limitations History of Present Illness Provider complaint: abdominal pain Onset (ago): day(s) (several) Location: abdomen Pain Consistency: + other (persistent ) Maximum Pain Intensity: 10 Current Pain Intensity: 8 Quality: + other (abd pain) Associated symptoms: + denies other symptoms (leg swelling), + nausea/vomiting ( nausea, no emesis) and + other (constipation) The patient is a 78 year old male who presents to the Emergency Room with complaints of a persistent abdominal pain that began several days ago. The patient reports that he recently had a CAT scan performed which showed 2 inguinal hernias. He states that he has also been experiencing nausea as well as constipation but denies any leg swelling. Home Medications Home Medications Medication Instructions Recorded Confirmed Type TESTOSTERONE GEL 1 applic TOPICAL QAM #0 10/12/17 01/12/19 History carvedilol 6.25 mg PO BIDM 08/16/18 01/12/19 History clopidogrel [Plavix] 75 mg PO QAM 08/16/18 01/12/19 History coenzyme Q10 [Co Q-10] 10 mg PO QAM 08/16/18 01/12/19 History cyanocobalamin (vitamin B-12) 1,000 mcg PO QAM 08/16/18 01/12/19 History digoxin 0.125 mg PO Q2D 08/16/18 01/12/19 History ferrous gluconate 324 mg PO QAM 08/16/18 01/12/19 History furosemide 60 mg PO QAM 08/16/18 01/12/19 History losartan 25 mg PO QAM 08/16/18 01/12/19 History metformin 1,000 mg PO QAM 08/16/18 01/12/19 History multivitamin [Multiple Vitamins] 1 tab PO QAM 08/16/18 01/12/19 History nitroglycerin [Nitrostat] 0.4 mg SUBLINGUAL UD PRN 08/16/18 01/12/19 History pantoprazole [Protonix] 40 mg PO QAM 08/16/18 01/12/19 History rosuvastatin [Crestor] 20 mg PO QAM 08/16/18 01/12/19 History sertraline 50 mg PO QAM 08/16/18 01/12/19 History warfarin [Coumadin] 5 mg PO 5XWK 08/16/18 01/12/19 History warfarin [Coumadin] 7.5 mg PO 2XWK 08/16/18 01/12/19 History fesoterodine [Toviaz] 8 mg PO DAILY 01/03/19 01/12/19 History mirabegron [Myrbetriq] 25 mg PO DAILY 01/03/19 01/12/19 History Allergies Allergy/AdvReac Type Severity Reaction Status Date / Time fentanyl Allergy Severe Decreased Verified 01/12/19 19:06 oxygen saturation, low RR, unresponsive midazolam Allergy Severe Decreased Verified 01/12/19 19:06 oxygen saturation, low RR, unresponsive. codeine Allergy Unknown GI SYMPTOMS Verified 01/12/19 19:06 BRIANA Inhibitors AdvReac Mild cough, Verified 01/12/19 19:06 cefuroxime AdvReac Mild GI SYMPTOMS Verified 01/12/19 19:06 Past Med/Surg History Medical History Depression (Chronic) HTN (hypertension) (Chronic) History of renal carcinoma (Chronic) CKD (chronic kidney disease), stage III (Chronic) Chronic systolic heart failure (Chronic) Chronic anemia (Chronic) Atrial fibrillation (Chronic) CAD (coronary artery disease) (Chronic) "2005 - PCI to LAD cath 2011 - no significant obstructive disease" DM type 2 (diabetes mellitus, type 2) (Chronic) Ischemic cardiomyopathy (Chronic) "echo 08/2015 - EF 25-30%, moderate tricuspid regurgitation" CVA (cerebral vascular accident) (Chronic) Squamous cell carcinoma (Chronic) Basal cell carcinoma (Chronic) V tach (Chronic) "s/p AICD placement" Cardiac defibrillator in place (Chronic) Surgical History History of cataract surgery (Chronic) History of cardiac catheterization (Chronic) History of prior ablation treatment (Chronic) CT guided tissue ablation R kidney Family History Other CAD (coronary artery disease) Diabetes Stomach cancer Social History marital status: Current Living Situation: Spouse Other Information That Helps Us Care for You: No Feels Safe at Home: Yes Safety Concerns: Feels Safe At This Time Smoking Status: Never smoker Do You Dip or Chew Tobacco: No Second Hand Exposure: No Tobacco Cessation Education Requested by Patient: No Hx Alcohol Use: No Hx Substance Use: No Beliefs That Will Affect Care: None Communication Ability: Unable Review of Systems See HPI for pertinent positives & negatives. and A total of 10 systems reviewed and were otherwise negative Physical Exam Vital Signs Vital Signs - 24 hr 01/12/19 16:46 01/12/19 19:09 01/12/19 20:05 Temperature 36.6 C Temperature Source Oral Sepsis Recent Fever Within 48 Hours No Sepsis New/Unexplained Change in Mental Status No Sepsis Action Taken by Nursing No Action Required Pulse Rate 77 Pulse Rate [Right Finger] 70 70 Pulse Rhythm Pulse Rhythm [Right Finger] Regular Pulse Strength Pulse Strength [Right Finger] Normal Respiratory Rate 20 19 19 Respiratory Effort / Characteristics Respiratory Depth Respiratory Pattern Blood Pressure 123/73 Blood Pressure [Right Arm] 108/64 95/68 L Blood Pressure Mean 89 Blood Pressure Mean [Right Arm] 78 77 Blood Pressure Position Blood Pressure Position [Right Arm] Lying Pulse Oximetry 98 92 95 Oxygen Delivery Method Room Air Oxygen Flow Rate 01/12/19 20:06 01/12/19 22:14 01/12/19 22:36 Temperature Temperature Source Sepsis Recent Fever Within 48 Hours Sepsis New/Unexplained Change in Mental Status Sepsis Action Taken by Nursing Pulse Rate 79 90 Pulse Rate [Right Finger] 90 Pulse Rhythm Regular Pulse Rhythm [Right Finger] Pulse Strength Pulse Strength [Right Finger] Respiratory Rate 18 19 19 Respiratory Effort / Characteristics Respiratory Depth Respiratory Pattern Blood Pressure 116/82 Blood Pressure [Right Arm] 116/82 Blood Pressure Mean Blood Pressure Mean [Right Arm] 93 Blood Pressure Position Blood Pressure Position [Right Arm] Lying Pulse Oximetry 95 97 97 Oxygen Delivery Method Room Air Room Air Oxygen Flow Rate 01/12/19 23:09 01/12/19 23:30 01/13/19 03:15 Temperature 36.7 C 36.7 C Temperature Source Oral Oral Sepsis Recent Fever Within 48 Hours Sepsis New/Unexplained Change in Mental Status Sepsis Action Taken by Nursing Pulse Rate 82 Pulse Rate [Right Finger] 76 81 Pulse Rhythm Pulse Rhythm [Right Finger] Regular Pulse Strength Pulse Strength [Right Finger] Normal Respiratory Rate 17 18 Respiratory Effort / Characteristics Non-Labored Spontaneous Respiratory Depth Normal Respiratory Pattern Regular Blood Pressure Blood Pressure [Right Arm] 115/71 113/76 Blood Pressure Mean Blood Pressure Mean [Right Arm] 85 88 Blood Pressure Position Blood Pressure Position [Right Arm] Lying Lying Pulse Oximetry 96 92 Oxygen Delivery Method Room Air Room Air Oxygen Flow Rate 01/13/19 07:47 01/13/19 08:00 01/13/19 12:35 Temperature 36.7 C 36.5 C Temperature Source Oral Oral Sepsis Recent Fever Within 48 Hours Sepsis New/Unexplained Change in Mental Status Sepsis Action Taken by Nursing Pulse Rate Pulse Rate [Right Finger] 91 H 92 H Pulse Rhythm Pulse Rhythm [Right Finger] Pulse Strength Pulse Strength [Right Finger] Respiratory Rate 19 18 Respiratory Effort / Characteristics Non-Labored Respiratory Depth Normal Respiratory Pattern Regular Blood Pressure Blood Pressure [Right Arm] 102/62 110/72 Blood Pressure Mean Blood Pressure Mean [Right Arm] 75 84 Blood Pressure Position Blood Pressure Position [Right Arm] Sitting Sitting Pulse Oximetry 92 94 Oxygen Delivery Method Room Air Room Air Oxygen Flow Rate 01/13/19 15:09 Temperature 36.6 C Temperature Source Axillary Sepsis Recent Fever Within 48 Hours Sepsis New/Unexplained Change in Mental Status Sepsis Action Taken by Nursing Pulse Rate 61 Pulse Rate [Right Finger] Pulse Rhythm Regular Pulse Rhythm [Right Finger] Pulse Strength Normal Pulse Strength [Right Finger] Respiratory Rate 18 Respiratory Effort / Characteristics Respiratory Depth Respiratory Pattern Blood Pressure 99/59 L Blood Pressure [Right Arm] Blood Pressure Mean 72 Blood Pressure Mean [Right Arm] Blood Pressure Position Lying Blood Pressure Position [Right Arm] Pulse Oximetry 96 Oxygen Delivery Method Oxygen Flow Rate 2 GENERAL: Patient is awake and alert. He is mildly anxious appearing and appears to be uncomfortable. EYES: The conjunctivae are clear. The pupils are round and reactive. EARS, NOSE, MOUTH AND THROAT: Mucous members are dry. NECK: The neck is nontender and supple. RESPIRATORY: Normal respiratory effort is noted there is no evidence of wheezing rhonchi or rales CARDIOVASCULAR: Ectopy was noted to auscultation. There is no definite murmur noted. GASTROINTESTINAL: Abdomen is moderately distended and diffusely tender. There are bilateral inguinal hernias noted to palpation. There is significant tenderness over the hernias. MUSCULOSKELETAL/EXTREMITIES: There is no evidence of gross deformity full range of motion is noted in the hips and shoulders SKIN: There is no obvious evidence of any rash. Pedal edema was noted bilaterally. NEUROLOGIC: Patient is awake alert and oriented x3. Course 1839: Past medical records reviewed. The patient was evaluated in room C2B, and a complete history and physical examination were performed. 2105: I reviewed the patient's case with Dr. Keene [facility] Hospitalist. He will evaluate the patient for further management. Administered Medications Acetaminophen (Tylenol) 650 mg PO Q4H PRN PRN Reason: Pain or Fever Stop: 02/11/19 22:49 Last Admin: 01/13/19 03:10 Dose: 650 mg Carvedilol (Coreg) 6.25 mg PO BIDM [facility] Stop: 02/12/19 07:59 Last Admin: 01/13/19 07:50 Dose: 6.25 mg Clopidogrel Bisulfate (Plavix) 75 mg PO QAM [facility] Stop: 02/12/19 08:59 Last Admin: 01/13/19 07:50 Dose: 75 mg Cyanocobalamin (Vitamin B-12) 1,000 mcg PO QAM [facility] Stop: 02/12/19 08:59 Last Admin: 01/13/19 07:50 Dose: 1,000 mcg Ferrous Gluconate (Ferrous Gluconate) 324 mg PO QAM [facility] Stop: 02/12/19 08:59 Last Admin: 01/13/19 07:50 Dose: 324 mg Aztreonam 500 mg/ Dextrose 105 mls @ 110 mls/hr IV Q8H [facility] Stop: 01/23/19 07:59 Last Infusion: 01/13/19 09:39 Dose: 0 mls/hr Admin: 01/13/19 08:40 Dose: 110 mls/hr Insulin Aspart (Novolog Flexpen) 0 units SC Q6 [facility] Stop: 02/12/19 05:59 Last Admin: 01/13/19 12:56 Dose: 3 units Admin: 01/13/19 06:45 Dose: Not Given Miscellaneous (Order Awaiting Action) 1 ea N/A QS [facility] Stop: 02/12/19 00:00 Last Admin: 01/13/19 14:55 Dose: Not Given Admin: 01/13/19 07:51 Dose: Not Given Admin: 01/13/19 00:22 Dose: Not Given Miscellaneous (Order Awaiting Action) 1 ea N/A QS [facility] Stop: 02/12/19 07:59 Last Admin: 01/13/19 14:55 Dose: Not Given Admin: 01/13/19 07:51 Dose: Not Given Pantoprazole Sodium (Protonix) 40 mg PO [facility] Stop: 02/12/19 08:59 Last Admin: 01/13/19 07:50 Dose: 40 mg Rosuvastatin Calcium (Crestor) 20 mg PO [facility] Stop: 02/12/19 08:59 Last Admin: 01/13/19 07:50 Dose: 20 mg Sertraline HCl (Zoloft) 50 mg PO [facility] Stop: 02/12/19 08:59 Last Admin: 01/13/19 07:51 Dose: 50 mg Discontinued Medications Dextrose (Dextrose 50%) 25 ml IV NOW STA Stop: 01/12/19 22:51 Last Admin: 01/12/19 23:42 Dose: 25 ml Dextrose (Dextrose 50%) 50 ml IV NOW STA Stop: 01/13/19 06:15 Last Admin: 01/13/19 06:45 Dose: 50 ml Sodium Chloride (Nss) 500 mls @ 999 mls/hr IV .Q31M [facility] Stop: 01/12/19 19:15 Last Infusion: 01/12/19 19:51 Dose: 0 mls/hr Admin: 01/12/19 19:09 Dose: 999 mls/hr Promethazine HCl 6.25 mg/ (Sodium Chloride) 50.25 mls @ 201 mls/hr IV NOW STA Stop: 01/12/19 19:50 Last Infusion: 01/12/19 20:20 Dose: 0 mls/hr Admin: 01/12/19 20:05 Dose: 201 mls/hr Sodium Chloride (Nss 1000ml) 500 mls @ 999 mls/hr IV .Q31M ONE Stop: 01/12/19 21:01 Last Infusion: 01/12/19 21:09 Dose: 0 mls/hr Admin: 01/12/19 20:36 Dose: 999 mls/hr Phytonadione 5 mg/ Sodium (Chloride) 50.5 mls @ 101 mls/hr IV ONE ONE Stop: 01/12/19 22:27 Last Infusion: 01/12/19 23:17 Dose: 0 mls/hr Admin: 01/12/19 22:13 Dose: 101 mls/hr Aztreonam 2,000 mg/ Dextrose 110 mls @ 100 mls/hr IV TODAY@2330 [facility] Stop: 01/13/19 00:35 Last Infusion: 01/13/19 00:53 Dose: 0 mls/hr Admin: 01/12/19 23:47 Dose: 100 mls/hr Sodium Chloride (Nss 1000ml) 1,000 mls @ 75 mls/hr IV .[id number] [facility] Stop: 02/11/19 22:49 Last Infusion: 01/13/19 07:00 Dose: 0 mls/hr Infusion: 01/13/19 07:00 Dose: 0 mls/hr Admin: 01/12/19 23:17 Dose: 75 mls/hr Insulin Human Regular 5 units/ (Syringe) 5 mls @ 30 mls/min IV TODAY@2330 [facility] Stop: 01/12/19 23:31 Last Admin: 01/12/19 23:41 Dose: 30 mls/min Insulin Human Regular 10 units (/ Syringe) 10 mls @ 0 mls/hr IV NOW STA Stop: 01/13/19 06:20 Last Admin: 01/13/19 06:44 Dose: 1 mls/hr Calcium Gluconate 1,000 mg/ (Sodium Chloride) 60 mls @ 240 mls/hr IV NOW STA Stop: 01/13/19 06:28 Last Infusion: 01/13/19 07:00 Dose: 0 mls/hr Admin: 01/13/19 06:41 Dose: 240 mls/hr Sodium Bicarbonate 150 meq/ (Dextrose) 1,150 mls @ 150 mls/hr IV .[id number] [facility] Stop: 01/13/19 14:09 Last Infusion: 01/13/19 14:54 Dose: 0 mls/hr Admin: 01/13/19 07:13 Dose: 150 mls/hr Promethazine HCl 12.5 mg/ (Sodium Chloride) 50.5 mls @ 202 mls/hr IV NOW ONE Stop: 01/13/19 12:59 Last Infusion: 01/13/19 13:17 Dose: 0 mls/hr Admin: 01/13/19 12:56 Dose: 202 mls/hr Lidocaine HCl (Xylocaine Jely 2%) Confirm Administered Dose 5 ml .ROUTE .RUST- MED ONE Stop: 01/13/19 11:36 Last Admin: 01/13/19 13:16 Dose: Not Given Mirabegron (Myrbetriq Er) 25 mg PO DAILY [facility] Stop: 02/12/19 08:59 Last Admin: 01/13/19 07:50 Dose: 25 mg Miscellaneous (Patient's Height And/Or Weight Needed) 1 ea N/A Q2H [facility] Stop: 02/11/19 23:29 Last Admin: 01/13/19 00:12 Dose: Not Given Ondansetron HCl (Zofran) 4 mg IV NOW STA Stop: 01/12/19 18:35 Last Admin: 01/12/19 19:08 Dose: 4 mg Ondansetron HCl (Zofran) 4 mg IV Q6H PRN PRN Reason: Nausea Stop: 02/11/19 22:49 Last Admin: 01/13/19 03:31 Dose: 4 mg Phytonadione (Mephyton) 5 mg PO NOW STA Stop: 01/13/19 13:35 Last Admin: 01/13/19 14:24 Dose: 5 mg Sodium Polystyrene Sulfonate (Kayexalate) 30 gm PO NOW STA Stop: 01/13/19 06:19 Last Admin: 01/13/19 06:43 Dose: 30 gm Medical Decision Making Differential Diagnosis Differential diagnosis includes: gastritis, peptic ulcer disease, GERD, gallbladder disease, pancreatitis, small bowel obstruction, acute coronary syndrome, pericarditis, ischemic bowel, irritable bowel disease, irritable bowel syndrome, appendicitis, diverticulitis, malignancy, hernia, UTI, torsion, perforation, trauma, and kidney stones. Medical Records Attestation: I reviewed the patient's medical records. Home Medications Current Medication List: was personally reviewed by me Laboratory Data Attestation: I reviewed the patient's lab results. Result diagrams: 01/13/19 04:54 01/13/19 10:58 Lab Results 01/12/19 01/12/19 01/12/19 Range/Units 17:40 17:40 17:40 WBC 9.55 (4.8-10.8) K/uL RBC 2.60 L (4.7-6.1) M/uL Hgb 7.7 L (14.0-18.0) g/dL Hct 23.8 L (42-52) % MCV 91.5 (80-100) fL MCH 29.6 (25-34) pg MCHC 32.4 (32-36) g/dL RDW Std Deviation 47.3 H (36.4-46.3) fL RDW Coeff of Dung 14.1 (11.5-14.5) % Plt Count 262 (130-400) K/uL MPV 10.1 (7.4-10.4) fL Immature Gran % (Auto) 0.3 % Neut % (Auto) 76.4 % Lymph % (Auto) 9.1 % [place] % (Auto) 13.3 % Eos % (Auto) 0.7 % Baso % (Auto) 0.2 % Immature Gran # (Auto) 0.03 H (0.00-0.02) K/uL Neut # (Auto) 7.29 H (1.4-6.5) K/uL Lymph # (Auto) 0.87 L (1.2-3.4) K/uL [place] # (Auto) 1.27 H (0.11-0.59) K/uL Eos # (Auto) 0.07 (0-0.5) K/uL Baso # (Auto) 0.02 (0-0.2) K/uL Ovalocytes 1+ PT (9.0-12.0) Seconds INR (0.9-1.1) Sodium 134 L (136-145) mmol/L Potassium 5.3 H (3.5-5.1) mmol/L Chloride 101 (98-107) mmol/L Carbon Dioxide 23 (21-32) mmol/L Anion Gap 10.0 (3-11) BUN 82 H (7-18) mg/dl Creatinine 4.79 H* (0.6-1.4) mg/dl Est Cr Clr Drug Dosing Not Reportable Est GFR ( Amer) 12.4 Est GFR (Non-Af Amer) 10.7 BUN/Creatinine Ratio 17.1 (10-20) Glucose 159 H (70-99) mg/dl POC Glucose (70-99) Estimat Average Glucose mg/dl Hemoglobin A1c (4.5-5.6) % Calcium 9.2 (8.5-10.1) mg/dl Magnesium (1.8-2.4) mg/dl Total Bilirubin 0.4 (0.2-1) mg/dl AST 21 (15-37) U/L ALT 26 (12-78) U/L Alkaline Phosphatase 94 (45-117) U/L Troponin I (0-0.045) ng/ml Total Protein 8.0 (6.4-8.2) gm/dl Albumin 3.4 (3.4-5.0) gm/dl Globulin 4.6 H (2.5-4.0) gm/dl Albumin/Globulin Ratio 0.7 L (0.9-2) Lipase 186 (73-393) U/L Urine Color Urine Appearance (Clear) Urine pH (4.5-7.5) Ur Specific [place] (1.000-1.030) Urine Protein (Negative) Urine Glucose (UA) (Negative) Urine Ketones (Negative) Urine Blood (Negative) Urine Nitrite (Negative) Urine Bilirubin (Negative) Urine Urobilinogen (Negative) Ur Leukocyte Esterase (Negative) Urine WBC (Auto) (0-5) /hpf Urine RBC (Auto) (0-4) /hpf U Hyaline Cast (Auto) (0-5) /lpf U Epithel Cells (Auto) (0-5) /lpf Urine Bacteria (Auto) (Negative) Amorphous Sediment (None Prsent) Digoxin 1.6 (0.8-2.0) ng/ml Blood Type Antibody Screen Crossmatch 01/12/19 01/12/19 01/12/19 Range/Units 19:00 19:00 23:08 WBC (4.8-10.8) K/uL RBC (4.7-6.1) M/uL Hgb (14.0-18.0) g/dL Hct (42-52) % MCV (80-100) fL MCH (25-34) pg MCHC (32-36) g/dL RDW Std Deviation (36.4-46.3) fL RDW Coeff of Dung (11.5-14.5) % Plt Count (130-400) K/uL MPV (7.4-10.4) fL Immature Gran % (Auto) % Neut % (Auto) % Lymph % (Auto) % [place] % (Auto) % Eos % (Auto) % Baso % (Auto) % Immature Gran # (Auto) (0.00-0.02) K/uL Neut # (Auto) (1.4-6.5) K/uL Lymph # (Auto) (1.2-3.4) K/uL [place] # (Auto) (0.11-0.59) K/uL Eos # (Auto) (0-0.5) K/uL Baso # (Auto) (0-0.2) K/uL Ovalocytes PT 80.7 H (9.0-12.0) Seconds INR 9.2 H* (0.9-1.1) Sodium (136-145) mmol/L Potassium (3.5-5.1) mmol/L Chloride (98-107) mmol/L Carbon Dioxide (21-32) mmol/L Anion Gap (3-11) BUN (7-18) mg/dl Creatinine (0.6-1.4) mg/dl Est Cr Clr Drug Dosing Est GFR ( Amer) Est GFR (Non-Af Amer) BUN/Creatinine Ratio (10-20) Glucose (70-99) mg/dl POC Glucose (70-99) Estimat Average Glucose mg/dl Hemoglobin A1c (4.5-5.6) % Calcium (8.5-10.1) mg/dl Magnesium (1.8-2.4) mg/dl Total Bilirubin (0.2-1) mg/dl AST (15-37) U/L ALT (12-78) U/L Alkaline Phosphatase (45-117) U/L Troponin I 0.051 H* (0-0.045) ng/ml Total Protein (6.4-8.2) gm/dl Albumin (3.4-5.0) gm/dl Globulin (2.5-4.0) gm/dl Albumin/Globulin Ratio (0.9-2) Lipase (73-393) U/L Urine Color Urine Appearance (Clear) Urine pH (4.5-7.5) Ur Specific [place] (1.000-1.030) Urine Protein (Negative) Urine Glucose (UA) (Negative) Urine Ketones (Negative) Urine Blood (Negative) Urine Nitrite (Negative) Urine Bilirubin (Negative) Urine Urobilinogen (Negative) Ur Leukocyte Esterase (Negative) Urine WBC (Auto) (0-5) /hpf Urine RBC (Auto) (0-4) /hpf U Hyaline Cast (Auto) (0-5) /lpf U Epithel Cells (Auto) (0-5) /lpf Urine Bacteria (Auto) (Negative) Amorphous Sediment (None Prsent) Digoxin (0.8-2.0) ng/ml Blood Type A Positive Antibody Screen NEGATIVE Crossmatch See Detail 01/12/19 01/12/19 01/13/19 Range/Units 23:08 23:12 04:54 WBC (4.8-10.8) K/uL RBC (4.7-6.1) M/uL Hgb (14.0-18.0) g/dL Hct (42-52) % MCV (80-100) fL MCH (25-34) pg MCHC (32-36) g/dL RDW Std Deviation (36.4-46.3) fL RDW Coeff of Dung (11.5-14.5) % Plt Count (130-400) K/uL MPV (7.4-10.4) fL Immature Gran % (Auto) % Neut % (Auto) % Lymph % (Auto) % [place] % (Auto) % Eos % (Auto) % Baso % (Auto) % Immature Gran # (Auto) (0.00-0.02) K/uL Neut # (Auto) (1.4-6.5) K/uL Lymph # (Auto) (1.2-3.4) K/uL [place] # (Auto) (0.11-0.59) K/uL Eos # (Auto) (0-0.5) K/uL Baso # (Auto) (0-0.2) K/uL Ovalocytes PT 42.4 H (9.0-12.0) Seconds INR 4.6 H (0.9-1.1) Sodium (136-145) mmol/L Potassium (3.5-5.1) mmol/L Chloride (98-107) mmol/L Carbon Dioxide (21-32) mmol/L Anion Gap (3-11) BUN (7-18) mg/dl Creatinine (0.6-1.4) mg/dl Est Cr Clr Drug Dosing Est GFR ( Amer) Est GFR (Non-Af Amer) BUN/Creatinine Ratio (10-20) Glucose (70-99) mg/dl POC Glucose 131 H (70-99) Estimat Average Glucose mg/dl Hemoglobin A1c (4.5-5.6) % Calcium (8.5-10.1) mg/dl Magnesium (1.8-2.4) mg/dl Total Bilirubin (0.2-1) mg/dl AST (15-37) U/L ALT (12-78) U/L Alkaline Phosphatase (45-117) U/L Troponin I 0.049 H* (0-0.045) ng/ml Total Protein (6.4-8.2) gm/dl Albumin (3.4-5.0) gm/dl Globulin (2.5-4.0) gm/dl Albumin/Globulin Ratio (0.9-2) Lipase (73-393) U/L Urine Color Urine Appearance (Clear) Urine pH (4.5-7.5) Ur Specific [place] (1.000-1.030) Urine Protein (Negative) Urine Glucose (UA) (Negative) Urine Ketones (Negative) Urine Blood (Negative) Urine Nitrite (Negative) Urine Bilirubin (Negative) Urine Urobilinogen (Negative) Ur Leukocyte Esterase (Negative) Urine WBC (Auto) (0-5) /hpf Urine RBC (Auto) (0-4) /hpf U Hyaline Cast (Auto) (0-5) /lpf U Epithel Cells (Auto) (0-5) /lpf Urine Bacteria (Auto) (Negative) Amorphous Sediment (None Prsent) Digoxin (0.8-2.0) ng/ml Blood Type Antibody Screen Crossmatch 01/13/19 01/13/19 01/13/19 Range/Units 04:54 04:54 04:54 WBC 11.26 H (4.8-10.8) K/uL RBC 2.67 L (4.7-6.1) M/uL Hgb 7.8 L (14.0-18.0) g/dL Hct 24.4 L (42-52) % MCV 91.4 (80-100) fL MCH 29.2 (25-34) pg MCHC 32.0 (32-36) g/dL RDW Std Deviation 47.2 H (36.4-46.3) fL RDW Coeff of Dung 14.2 (11.5-14.5) % Plt Count 270 (130-400) K/uL MPV 9.6 (7.4-10.4) fL Immature Gran % (Auto) 0.4 % Neut % (Auto) 76.4 % Lymph % (Auto) 9.0 % [place] % (Auto) 13.9 % Eos % (Auto) 0.1 % Baso % (Auto) 0.2 % Immature Gran # (Auto) 0.04 H (0.00-0.02) K/uL Neut # (Auto) 8.61 H (1.4-6.5) K/uL Lymph # (Auto) 1.01 L (1.2-3.4) K/uL [place] # (Auto) 1.57 H (0.11-0.59) K/uL Eos # (Auto) 0.01 (0-0.5) K/uL Baso # (Auto) 0.02 (0-0.2) K/uL Ovalocytes 1+ PT (9.0-12.0) Seconds INR (0.9-1.1) Sodium 132 L (136-145) mmol/L Potassium 6.1 H* D (3.5-5.1) mmol/L Chloride 102 (98-107) mmol/L Carbon Dioxide 18 L (21-32) mmol/L Anion Gap 12.0 H (3-11) BUN 83 H (7-18) mg/dl Creatinine 4.94 H* (0.6-1.4) mg/dl Est Cr Clr Drug Dosing 12.5 Est GFR ( Amer) 12.0 Est GFR (Non-Af Amer) 10.3 BUN/Creatinine Ratio 16.8 (10-20) Glucose 128 H (70-99) mg/dl POC Glucose (70-99) Estimat Average Glucose 137 mg/dl Hemoglobin A1c 6.4 H (4.5-5.6) % Calcium 8.6 (8.5-10.1) mg/dl Magnesium 2.3 (1.8-2.4) mg/dl Total Bilirubin (0.2-1) mg/dl AST (15-37) U/L ALT (12-78) U/L Alkaline Phosphatase (45-117) U/L Troponin I 0.056 H* (0-0.045) ng/ml Total Protein (6.4-8.2) gm/dl Albumin (3.4-5.0) gm/dl Globulin (2.5-4.0) gm/dl Albumin/Globulin Ratio (0.9-2) Lipase (73-393) U/L Urine Color Urine Appearance (Clear) Urine pH (4.5-7.5) Ur Specific [place] (1.000-1.030) Urine Protein (Negative) Urine Glucose (UA) (Negative) Urine Ketones (Negative) Urine Blood (Negative) Urine Nitrite (Negative) Urine Bilirubin (Negative) Urine Urobilinogen (Negative) Ur Leukocyte Esterase (Negative) Urine WBC (Auto) (0-5) /hpf Urine RBC (Auto) (0-4) /hpf U Hyaline Cast (Auto) (0-5) /lpf U Epithel Cells (Auto) (0-5) /lpf Urine Bacteria (Auto) (Negative) Amorphous Sediment (None Prsent) Digoxin (0.8-2.0) ng/ml Blood Type Antibody Screen Crossmatch 01/13/19 01/13/19 01/13/19 Range/Units 05:00 06:31 10:58 WBC (4.8-10.8) K/uL RBC (4.7-6.1) M/uL Hgb (14.0-18.0) g/dL Hct (42-52) % MCV (80-100) fL MCH (25-34) pg MCHC (32-36) g/dL RDW Std Deviation (36.4-46.3) fL RDW Coeff of Dung (11.5-14.5) % Plt Count (130-400) K/uL MPV (7.4-10.4) fL Immature Gran % (Auto) % Neut % (Auto) % Lymph % (Auto) % [place] % (Auto) % Eos % (Auto) % Baso % (Auto) % Immature Gran # (Auto) (0.00-0.02) K/uL Neut # (Auto) (1.4-6.5) K/uL Lymph # (Auto) (1.2-3.4) K/uL [place] # (Auto) (0.11-0.59) K/uL Eos # (Auto) (0-0.5) K/uL Baso # (Auto) (0-0.2) K/uL Ovalocytes PT (9.0-12.0) Seconds INR (0.9-1.1) Sodium (136-145) mmol/L Potassium (3.5-5.1) mmol/L Chloride (98-107) mmol/L Carbon Dioxide (21-32) mmol/L Anion Gap (3-11) BUN (7-18) mg/dl Creatinine (0.6-1.4) mg/dl Est Cr Clr Drug Dosing Est GFR ( Amer) Est GFR (Non-Af Amer) BUN/Creatinine Ratio (10-20) Glucose (70-99) mg/dl POC Glucose 133 H (70-99) Estimat Average Glucose mg/dl Hemoglobin A1c (4.5-5.6) % Calcium (8.5-10.1) mg/dl Magnesium (1.8-2.4) mg/dl Total Bilirubin (0.2-1) mg/dl AST (15-37) U/L ALT (12-78) U/L Alkaline Phosphatase (45-117) U/L Troponin I 0.064 H* (0-0.045) ng/ml Total Protein (6.4-8.2) gm/dl Albumin (3.4-5.0) gm/dl Globulin (2.5-4.0) gm/dl Albumin/Globulin Ratio (0.9-2) Lipase (73-393) U/L Urine Color Dark Yellow Urine Appearance Turbid H (Clear) Urine pH 5.0 (4.5-7.5) Ur Specific [place] 1.022 (1.000-1.030) Urine Protein 2+ H (Negative) Urine Glucose (UA) Negative (Negative) Urine Ketones Trace H (Negative) Urine Blood 3+ H (Negative) Urine Nitrite Negative (Negative) Urine Bilirubin Negative (Negative) Urine Urobilinogen Negative (Negative) Ur Leukocyte Esterase 3+ H (Negative) Urine WBC (Auto) >30 H (0-5) /hpf Urine RBC (Auto) >30 H (0-4) /hpf U Hyaline Cast (Auto) 5-10 H (0-5) /lpf U Epithel Cells (Auto) >30 H (0-5) /lpf Urine Bacteria (Auto) Negative (Negative) Amorphous Sediment Present H (None Prsent) Digoxin (0.8-2.0) ng/ml Blood Type Antibody Screen Crossmatch 01/13/19 01/13/19 Range/Units 10:58 11:52 WBC (4.8-10.8) K/uL RBC (4.7-6.1) M/uL Hgb (14.0-18.0) g/dL Hct (42-52) % MCV (80-100) fL MCH (25-34) pg MCHC (32-36) g/dL RDW Std Deviation (36.4-46.3) fL RDW Coeff of Dung (11.5-14.5) % Plt Count (130-400) K/uL MPV (7.4-10.4) fL Immature Gran % (Auto) % Neut % (Auto) % Lymph % (Auto) % [place] % (Auto) % Eos % (Auto) % Baso % (Auto) % Immature Gran # (Auto) (0.00-0.02) K/uL Neut # (Auto) (1.4-6.5) K/uL Lymph # (Auto) (1.2-3.4) K/uL [place] # (Auto) (0.11-0.59) K/uL Eos # (Auto) (0-0.5) K/uL Baso # (Auto) (0-0.2) K/uL Ovalocytes PT (9.0-12.0) Seconds INR (0.9-1.1) Sodium 133 L (136-145) mmol/L Potassium 5.5 H (3.5-5.1) mmol/L Chloride 100 (98-107) mmol/L Carbon Dioxide 21 (21-32) mmol/L Anion Gap 12.0 H (3-11) BUN 89 H (7-18) mg/dl Creatinine 5.25 H* D (0.6-1.4) mg/dl Est Cr Clr Drug Dosing 11.8 Est GFR ( Amer) 11.1 Est GFR (Non-Af Amer) 9.6 BUN/Creatinine Ratio 17.0 (10-20) Glucose 165 H (70-99) mg/dl POC Glucose 187 H (70-99) Estimat Average Glucose mg/dl Hemoglobin A1c (4.5-5.6) % Calcium 9.1 (8.5-10.1) mg/dl Magnesium (1.8-2.4) mg/dl Total Bilirubin (0.2-1) mg/dl AST (15-37) U/L ALT (12-78) U/L Alkaline Phosphatase (45-117) U/L Troponin I (0-0.045) ng/ml Total Protein (6.4-8.2) gm/dl Albumin (3.4-5.0) gm/dl Globulin (2.5-4.0) gm/dl Albumin/Globulin Ratio (0.9-2) Lipase (73-393) U/L Urine Color Urine Appearance (Clear) Urine pH (4.5-7.5) Ur Specific [place] (1.000-1.030) Urine Protein (Negative) Urine Glucose (UA) (Negative) Urine Ketones (Negative) Urine Blood (Negative) Urine Nitrite (Negative) Urine Bilirubin (Negative) Urine Urobilinogen (Negative) Ur Leukocyte Esterase (Negative) Urine WBC (Auto) (0-5) /hpf Urine RBC (Auto) (0-4) /hpf U Hyaline Cast (Auto) (0-5) /lpf U Epithel Cells (Auto) (0-5) /lpf Urine Bacteria (Auto) (Negative) Amorphous Sediment (None Prsent) Digoxin (0.8-2.0) ng/ml Blood Type Antibody Screen Crossmatch Imaging Data Radiologist's Impression: Radiology results as stated below per my review and the radiologist's interpretation: XR chest 1V portable, XR KUB HISTORY: 78 years-old Male nausea acute nausea with atypical chest pain COMPARISON: Chest radiograph 01/03/2019, CT abdomen and pelvis 12/29/2018 TECHNIQUE: Portable AP view of the chest with KUB radiograph FINDINGS: CHEST: Marked cardiac enlargement with unchanged single lead left subclavian pacer/ AICD. Calcification of the thoracic aortic arch. No pneumothorax. Small left pleural effusion. Subsegmental left basilar opacities are noted. No overt pulmonary edema. Degenerative changes of the shoulders and spine. KUB: No pneumatosis or pneumoperitoneum. The bowel gas pattern is nonobstructive. No urolith or acute fracture. Degenerative changes of the hips and spine. IMPRESSION: 1. Small left pleural effusion with left basilar opacities suggesting atelectasis or pneumonia. 2. Cardiomegaly without overt pulmonary edema. 3. Nonobstructive bowel gas pattern. The above report was generated using voice recognition software. It may contain grammatical, syntax or spelling errors. Electronically signed by: Samy Lara M.D. 01/12/2019 7:36 PM ABDOMEN AND PELVIS CT WITHOUT CONTRAST CT DOSE: 688.26 mGy.cm HISTORY: Acute nausea and vomiting vomiting TECHNIQUE: Multiaxial CT images of the abdomen and pelvis were performed without contrast. A dose lowering technique was utilized adhering to the principles of ALARA. COMPARISON STUDY: CT abdomen and pelvis 12/29/2018. FINDINGS: Trace pleural effusions. Subsegmental bibasilar opacities are suggestive of atelectasis. There is no pneumatosis or pneumoperitoneum identified. Marked enlargement of the imaged inferior cardiac chambers with coronary arterial calcifications. There is a moderate to large pericardial effusion which is new from prior study measuring up to 3.0 cm posteriorly. Cirrhotic liver disease. Mildly contracted gallbladder with gallbladder wall thickening. No intrahepatic biliary ductal dilation. Scattered calcifications are noted about the ata hepatis. Spleen, pancreas and adrenal glands are unremarkable. 3 mm calcification of the right adrenal gland is unchanged. Moderate nonspecific bilateral perinephric stranding. 4.1 cm cyst of the interpolar left kidney. Indeterminate 2.2 cm lesion of the lateral interpolar right kidney demonstrates soft tissue attenuation, also unchanged. There is adjacent punctate calcification noted along the medial aspect of this lesion. No ureteral calculi or obstructive uropathy. Partial distention of the urinary bladder with moderate circumferential wall thickening. Since of calcification of the aorta without aneurysm. Small volume of abdominal pelvic ascites has increased from comparison. No small bowel obstruction. Large bilateral hernias containing mesenteric fat and nonobstructed bowel redemonstrated. Since of colonic diverticulosis without CT evidence of acute diverticulitis. No evidence of acute appendicitis. Diffuse mesenteric and body wall edema with gynecomastia. Demineralized appearance of the bones. Multilevel facet arthrosis with spondylitic spurring. IMPRESSION: 1. No bowel obstruction or focal bowel wall thickening. 2. Extensive colonic diverticulosis without acute diverticulitis. 3. Cirrhotic liver disease with new moderate to large pericardial effusion and small volume of abdominal pelvic ascites. 4. Large bilateral inguinal hernias containing nonobstructed loops of bowel. 5. Indeterminate soft tissue attenuating 2.2 cm lesion of the interpolar right kidney, unchanged. 6. Trace pleural effusions. 7. Circumferential wall thickening of the urinary bladder with partial distention. Correlate with urinalysis to exclude cystitis. 8. Additional findings as above. Electronically signed by: Samy Lara M.D. 01/12/2019 7:58 PM ECG Data Attestation: I personally reviewed and interpreted this ECG as follows: Indication: abdominal pain Rate (beats per minute): 67 Rhythm: atrial fibrillation Findings: + other (paced beats noted) and + RBBB (underlying) Comparison ECG Date: from (03-JAN-2019) Change: no significant change Blood Pressure Blood Pressure Findings: Low blood pressure Blood Pressure Disposition: further management by hospitalist [facility] Narrative The patient is a 78-year-old male who presented to the emergency department for an evaluation of abdominal pain and nausea. The patient has a history of inguinal hernias and initially he thought his condition was secondary to a bowel obstruction. The patient's physical exam did show significant abdominal tenderness as well as the inguinal hernias but they did not appear to be incarcerated at this time. The patient had a CT recently with IV contrast. Today he presents with signs of renal failure and he was treated with IV fluids. I discussed the patient's laboratory and radiographic studies with him and his family members. I did discuss his case also with the on-call [facility] hospitalist group. They have agreed to evaluate the patient in the emergency department for further management and disposition. Impression & Plan Renal failure, Hypotension Discharge Plan Visit Data *Final* Discharge Date/Time: 01/12/19 22:36 Chief Complaint: GI Assessment Stated Complaint: HERNIA, POSSIBLE BLOCKAGE ED Provider: Fercho English Discharge Problem: Renal failure, Hypotension Patient Disposition: Admitted As Inpatient Discharge Instructions Interventions: ED Discharge Assessment Last Done: 01/12/19 22:36 The scribe's documentation has been prepared under my direction and personally reviewed by me in its entirety. I confirm that the note above accurately reflects all work, treatment, procedures, and medical decision making performed by me.
[2019-01-12] MEDS ORDERED: PROMETHAZINE HCL 6.25 MG in SODIUM CHLORIDE 0.9% 50 ML IV STA (19:36)
--- NOTE | 2019-01-12 19:38 | XRay Report ---
XR chest 1V portable, XR KUB HISTORY: 78 years-old Male nausea acute nausea with atypical chest pain COMPARISON: Chest radiograph 01/03/2019, CT abdomen and pelvis 12/29/2018 TECHNIQUE: Portable AP view of the chest with KUB radiograph FINDINGS: CHEST: Marked cardiac enlargement with unchanged single lead left subclavian pacer/AICD. Calcification of th e thoracic aortic arch. No pneumothorax. Small left pleural effusion. Subsegmental left basilar opaci ties are noted. No overt pulmonary edema. Degenerative changes of the shoulders and spine. KUB: No pneumatosis or pneumoperitoneum. The bowel gas pattern is nonobstructive. No urolith or acute frac ture. Degenerative changes of the hips and spine. IMPRESSION: 1. Small left pleural effusion with left basilar opacities suggesting atelectasis or pneumonia. 2. Cardiomegaly without overt pulmonary edema. 3. Nonobstructive bowel gas pattern. The above report was generated using voice recognition software. It may contain grammatical, syntax o r spelling errors. Electronically signed by: Samy Lara M.D. 01/12/2019 7:36 PM
--- NOTE | 2019-01-12 20:00 | CT Scan Report ---
ABDOMEN AND PELVIS CT WITHOUT CONTRAST CT DOSE: 688.26 mGy.cm HISTORY: Acute nausea and vomiting vomiting TECHNIQUE: Multiaxial CT images of the abdomen and pelvis were performed without contrast. A dose lo wering technique was utilized adhering to the principles of ALARA. COMPARISON STUDY: CT abdomen and pelvis 12/29/2018. FINDINGS: Trace pleural effusions. Subsegmental bibasilar opacities are suggestive of atelectasis. There is no pneumatosis or pneumoperitoneum identified. Marked enlargement of the imaged inferior cardiac chamber s with coronary arterial calcifications. There is a moderate to large pericardial effusion which is n ew from prior study measuring up to 3.0 cm posteriorly. Cirrhotic liver disease. Mildly contracted gallbladder with gallbladder wall thickening. No intrahepa tic biliary ductal dilation. Scattered calcifications are noted about the ata hepatis. Spleen, panc reas and adrenal glands are unremarkable. 3 mm calcification of the right adrenal gland is unchanged. Moderate nonspecific bilateral perinephric stranding. 4.1 cm cyst of the interpolar left kidney. Ind eterminate 2.2 cm lesion of the lateral interpolar right kidney demonstrates soft tissue attenuation, also unchanged. There is adjacent punctate calcification noted along the medial aspect of this lesio n. No ureteral calculi or obstructive uropathy. Partial distention of the urinary bladder with modera te circumferential wall thickening. Since of calcification of the aorta without aneurysm. Small volume of abdominal pelvic ascites has increased from comparison. No small bowel obstruction. L arge bilateral hernias containing mesenteric fat and nonobstructed bowel redemonstrated. Since of col onic diverticulosis without CT evidence of acute diverticulitis. No evidence of acute appendicitis. D iffuse mesenteric and body wall edema with gynecomastia. Demineralized appearance of the bones. Multi level facet arthrosis with spondylitic spurring. IMPRESSION: 1. No bowel obstruction or focal bowel wall thickening. 2. Extensive colonic diverticulosis without acute diverticulitis. 3. Cirrhotic liver disease with new moderate to large pericardial effusion and small volume of abdomi nal pelvic ascites. 4. Large bilateral inguinal hernias containing nonobstructed loops of bowel. 5. Indeterminate soft tissue attenuating 2.2 cm lesion of the interpolar right kidney, unchanged. 6. Trace pleural effusions. 7. Circumferential wall thickening of the urinary bladder with partial distention. Correlate with uri nalysis to exclude cystitis. 8. Additional findings as above. Electronically signed by: Samy Lara M.D. 01/12/2019 7:58 PM
[2019-01-12 20:01] LABS: Prothrombin Time 80.7 Seconds (9.0-12.0)
[2019-01-12] MEDS ORDERED: SODIUM CHLORIDE 0.9% 1000ML 500 ML IV ONE (20:31)
[2019-01-12 21:00] LABS: INR 9.2 (0.9-1.1)
[2019-01-12] MEDS ORDERED: PHYTONADIONE 5 MG in SODIUM CHLORIDE 0.9% 50 ML IV ONE (21:58)
[2019-01-12] MEDS ORDERED: NITROGLYCERIN SL 0.4 MG/TAB TAB SL PRN ×2 (22:50)
[2019-01-12] MEDS ORDERED: ALUMINUM/MAGNESIUM SUSP 30 ML UDC PO PRN (22:50)
[2019-01-12] MEDS ORDERED: SODIUM CHLORIDE 0.9% 250 ML IV PRN (22:50)
[2019-01-12] MEDS ORDERED: SODIUM CHLORIDE 0.9% 1000ML 1,000 ML IV SCH (22:50)
[2019-01-12] MEDS ORDERED: DEXTROSE 50% 50 ML SYRINGE IV STA (22:50)
[2019-01-12] MEDS ORDERED: ONDANSETRON INJ 2 MG/ML 2 ML VIAL IV PRN (22:50)
[2019-01-12] MEDS ORDERED: NovoLIN-R INSULIN PER UNIT CHARGE IV STA (22:50)
[2019-01-12] MEDS ORDERED: CARBOHYDRATES FOR HYPOGLYCEMIA PO PRN (23:04)
[2019-01-12] MEDS ORDERED: GLUCOSE 40% GEL 15 GM TUBE PO PRN (23:04)
[2019-01-12] MEDS ORDERED: GLUCAGON FOR INJ 1 MG VIAL SQ PRN (23:04)
[2019-01-12] MEDS ORDERED: DEXTROSE 50% 50 ML SYRINGE IV PRN (23:04)
[2019-01-12] MEDS ORDERED: GLUCOSE 10 TABS/TUBE PO PRN (23:04)
[2019-01-12] MEDS ORDERED: AZTREONAM CONSULT ACTIVE PRN (23:13)
--- NOTE | 2019-01-12 23:29 | History and Physical Report ---
DATE OF ADMISSION: 01/12/2019 CHIEF COMPLAINT: Weakness and nausea. HISTORY OF PRESENT ILLNESS: This is a 78-year-old male with past medical history significant for cirrhosis of liver, chronic kidney disease stage III, history of renal carcinoma right status post ablation, history of left middle cerebral artery stroke in 2015, history of TX, history of combined ischemic-nonischemic cardiomyopathy, last EF of around 40%, CAD status post stent, history of sustained ventricular tachycardia status post defibrillator, history of iron deficiency anemia, history of atrial fibrillation, hypogonadism, diabetes, was brought in because of nausea and abdominal discomfort. The patient was recently in the hospital for chest pain and shoulder pain thought to be from musculoskeletal pain and discharged home. He is also having inguinal hernias and is following with surgery. He is supposed to follow with surgery again in the next few days, but since couple of days he has been nauseous. He is eating okay, but he is feeling nauseous and also having some abdominal discomfort. He is getting weak and has not been getting better, so he was brought into the hospital and his labs showed his creatinine went up to 4.7 and his CAT scan of the abdomen and pelvis showed possible cystitis and [id number] pericardial effusions so we are called for admission. The patient currently is somewhat weak and tired but states his nausea is better, still has some abdominal discomfort. Denies any chest pain. Denies shortness of breath, no headache. No blurred visions. Somewhat hard to hear. Has some dry cough on and off. No difficulty swallowing. No vomiting, moved his bowels okay, but there is no blood in the stools. As per family, he is not eating much since last couple of days. The patient is afebrile. No rash seen. ALLERGIES: BRIANA INHIBITORS, CEFEPIME, CODEINE. PAST MEDICAL HISTORY: As mentioned above. PAST SURGICAL HISTORY: Heart catheterization, CT-guided tissue ablation, status post defibrillator placement, cataract surgery. MEDICATIONS: The patient is on Lasix 60 mg p.o. daily, metformin 1000 mg p.o. daily with breakfast, testosterone topical to his shoulder once daily, Coumadin 5 mg and 7 mg as directed, Cozaar 25 mg p.o. daily, Crestor 20 mg p.o. daily, Zoloft 50 mg p.o. daily, Plavix 75 mg p.o. daily, Protonix 40 mg p.o. daily, Toviaz 8 mg p.o. daily, Myrbetriq 25 mg p.o. daily, Coreg 6.25 mg p.o. b.i.d., nitroglycerin 0.4 mg sublingual p.r.n., Coenzyme Q10 one capsule daily, digoxin 125 mcg every other day, vitamin B12 1000 mcg p.o. daily, ferrous sulfate 324 mg p.o. b.i.d. FAMILY HISTORY: Significant history of CHF. Father had TX. Mother has TX. Sister has stomach cancer. SOCIAL HISTORY: and lives with his and daughter. No smoking history. No alcohol, no drug use. REVIEW OF SYMPTOMS: As per HPI. Rest of review of systems negative. PHYSICAL EXAMINATION: GENERAL: The patient is of moderate built, not in acute distress. VITAL SIGNS: Temperature 36.6, pulse 79, respiratory rate 18, blood pressure 95/68, oxygen 95% on room air. HEENT: No pallor, no icterus. Pupils equal, round, and react to light. NECK: No JVD. No neck masses. No carotid bruits. CARDIOVASCULAR: S1, S2 heard, regular rate and rhythm, no murmur, no gallop. RESPIRATORY SYSTEM: Normal AP diameter. No accessory muscle use. No wheezing, no crackles. ABDOMEN: Soft, bowel sounds. Mild diffuse discomfort. No rigidity. No distention. CENTRAL NERVOUS SYSTEM: Alert and oriented. Nonfocal. EXTREMITIES: Trace pedal edema, no erythema seen. LABORATORIES: WBC 9.5, hemoglobin 7.7, hematocrit 23.8, platelets 262. PT 80.7, INR 9.2. Sodium 134, potassium 5.3, chloride 101, bicarbonate 23, BUN 82, creatinine 4.79, serum glucose 159, calcium 10.2, total bilirubin 0.4, AST 21, ALT 26, alkaline phosphatase 92. Troponin I 0.05. Lipase 186. Digoxin 1.6. CT of the abdomen and pelvis shows no bowel obstruction or focal bowel wall thickening, extensive colonic diverticulosis without acute diverticulitis, cirrhotic liver disease with new [id number] pericardial effusion and small volume of abdominal pelvic ascites, large bilateral inguinal hernias containing nonobstructed loops of bowel, indeterminate soft tissue 2.2 cm lesion in the interpolar right kidney unchanged. Trace pleural effusion, circumferential wall thickening of the urinary bladder with partial distention. Correlate with urinalysis to exclude cystitis, initial findings as above. KUB, small left pleural effusion in left basilar opacity suggesting atelectasis or pneumonia, cardiomegaly without overt pulmonary edema, nonobstructive bowel gas pattern. Chest x-ray, cardiomegaly without overt pulmonary edema, small left pleural effusion with left basilar opacity suggesting atelectasis, pneumonia. EKG: Atrial fibrillation with frequent ventricular paced complexes at rate of 67, right bundle branch block. ASSESSMENT AND PLAN: This is a 78-year-old male who presents with nausea, weakness, and found to have acute kidney injury and also found to have elevated troponin and possible cystitis. 1. Acute kidney injury and chronic kidney disease stage III, baseline creatinine was around 1.7 and he was recently in the hospital with chest pain at that time, on discharge, his creatinine was 1.9, but todays labs shows creatinine 4.7. On last admission had contrast for CT of abdomen and pelvis, possible contrast induced nephropathy. He is also feeling nauseous for few days. Possible dehydration contributing. We will hold his Lasix and Cozaar. Placing him on gentle fluids. Somewhat bladder thickening and bladder distention on CAT scan. We will place a Polanco catheter. Consult nephrology and closely follow up the labs. 2. Hyperkalemia. Potassium of 5.3. We will give a small dose of insulin and dextrose. We will not give Kayexalate at this time because the patient is still having nausea. We will follow the labs in morning. 3. Pericardial effusion, moderate to large on the CT of abdomen and pelvis. We will get echocardiogram. The patient's recent echo was last admission and it was okay at that time. We will consult cardiology. 4. History of atrial fibrillation on Coreg, Myrbetriq, and Coumadin. INR is supratherapeutic. We will hold his Coumadin. We will follow PT/INR. Continue Coreg with holding parameters. 5. History of coronary artery disease status post stent. On beta bryan, statin, and Plavix. Currently mild elevation in troponin could be from renal disease. We will follow his repeat EKG, echocardiogram, and serial cardiac enzymes. 6. Mild elevation of troponin. FROM renal disease? will f/u repeat enzymes. 7. Supratherapeutic INR Inr 9o signs of obvious bleeding. Hold Coumadin . To give vitamin K. follow labs in am> 8. History of chronic systolic congestive heart failure. Ejection fraction of 35%, also right-sided heart failure with echo last week showed ejection fraction improved to 40%, holding his Lasix and Cozaar . Continue his Coreg with holding parameters. Started on fluids . Will monitor for volume overload. 9. History of liver cirrhosis. Holding his diuretics. We will follow for any volume overload. Follows with gastrointestinal. 10. History of gastroesophageal reflux disease, on proton pump inhibitors. 11. History of iron deficiency anemia and history of anemia of chronic kidney disease. Hemoglobin baseline around 8. Today's hemoglobin is at 7.7. No obvious signs of bleeding. We will follow stool for Hemoccult. His INR is supratherapeutic greater than 9. Getting IV vitamin K, on iron pills. We will hold two units of packed red blood cells and got a blood consent signed. 12. History of a clear cell adenocarcinoma, right kidney status post ablation. Family wants to get a urology consult. He follows with Dr. Neil. 13. History of cerebrovascular accident, on Plavix and Coumadin, and statin. Holding Coumadin. 14. History of ventricular tachycardia, status post defibrillator, recently device has been checked. 15. History of diabetes. On metformin, which will be held. We will place him on insulin sliding scale and we will follow hemoglobin A1c levels. 16. History of hypercholesterolemia. Continue statins. 17. Deep vein thrombosis prophylaxis. INR supratherapeutic. DISPOSITION: Closely monitor in the tele floor. Level I full code. Social service to help with discharge planning. [facility]
[2019-01-12] MEDS ORDERED: INSULIN HUMAN REGULAR PER UNIT 5 UNITS in SYRINGE 4.95 ML IV SCH (23:30)
[2019-01-12] MEDS ORDERED: AZTREONAM 2,000 MG in DEXTROSE 5% 100 ML IV SCH (23:30)
[2019-01-12] MEDS ORDERED: PATIENT'S HEIGHT AND/OR WEIGHT NEEDED SCH (23:30)
[2019-01-13] MEDS: TOVIAZ~ORDER AWAITING ACTION SCH ×4 (00:22→23:34)
[2019-01-13] MEDS ORDERED: Nursing to Pharmacy Communication ONE (02:18)
[2019-01-13] MEDS: ACETAMINOPHEN 325 MG TAB PO PRN (03:10)
[2019-01-13 05:08] LABS: Basophils # (auto) 0.02 K/uL (0-0.2); Basophils % (auto) 0.2 %; Eosinophils # (auto) 0.01 K/uL (0-0.5); Eosinophils % (auto) 0.1 %; Hematocrit (blood only) 24.4 % (42-52); Hemoglobin 7.8 g/dL (14.0-18.0); Immature Granulocytes # (auto) 0.04 K/uL (0.00-0.02); Immature Granulocytes % (auto) 0.4 %; Lymphocytes # (auto) 1.01 K/uL (1.2-3.4); Mean Corpuscular Volume 91.4 fL (80-100); Mean Platelet Volume 9.6 fL (7.4-10.4); Monocytes # (auto) 1.57 K/uL (0.11-0.59); Monocytes % (auto) 13.9 %; Neutrophils # (auto) 8.61 K/uL (1.4-6.5); Neutrophils % (auto) 76.4 %; Platelet Count 270 K/uL (130-400); RDW Coefficient of Variation 14.2 % (11.5-14.5); RDW Standard Deviation 47.2 fL (36.4-46.3); Red Blood Count 2.67 M/uL (4.7-6.1); White Blood Count 11.26 K/uL (4.8-10.8)
[2019-01-13 05:24] LABS: Ovalocytes 1+
[2019-01-13 05:34] LABS: Prothrombin Time 42.4 Seconds (9.0-12.0)
[2019-01-13 05:36] LABS: Appearance Urine Turbid (Clear); Bacteria Urine Automated Negative (Negative); Bilirubin Urine Negative (Negative); Blood Urine 3+ (Negative); Color Urine Dark Yellow; Epithelial Cell Urine Auto >30 /lpf (0-5); Glucose Urine UA Negative (Negative); Ketones Urine Trace (Negative); Leukocyte Esterase Urine 3+ (Negative); Nitrite Urine Negative (Negative); Protein Urine 2+ (Negative); RBC Urine Automated >30 /hpf (0-4); Specific Gravity Urine 1.022 (1.000-1.030); Urobilinogen Urine Negative (Negative); WBC Urine Automated >30 /hpf (0-5)
[2019-01-13 05:39] LABS: INR 4.6 (0.9-1.1)
[2019-01-13 06:11] LABS: BUN Creatinine Ratio 16.8 (10-20); Calcium 8.6 mg/dl (8.5-10.1); Creatinine Clr Calc Pharmacy 12.5 ml/min; Est GFR (Non-African American) 10.3; Magnesium 2.3 mg/dl (1.8-2.4); Potassium 6.1 mmol/L (3.5-5.1); Troponin I 0.056 ng/ml (0-0.045)
[2019-01-13 06:13] LABS: Amorphous Sediment Urine Present (None Prsent)
[2019-01-13] MEDS ORDERED: CALCIUM GLUCONATE 10% 1,000 MG in SODIUM CHLORIDE 0.9% 50 ML IV STA (06:14)
[2019-01-13] MEDS ORDERED: DEXTROSE 50% 50 ML SYRINGE IV STA (06:14)
[2019-01-13] MEDS ORDERED: SODIUM POLYSTYRENE 15 GM/60 ML 500ML BOTTLE PO STA (06:18)
[2019-01-13] MEDS ORDERED: INSULIN HUMAN REGULAR PER UNIT 10 UNITS in SYRINGE 9.9 ML IV STA (06:19)
[2019-01-13 06:23] LABS: Estimated Average Glucose 137 mg/dl; Hemoglobin A1C 6.4 % (4.5-5.6)
[2019-01-13] MEDS ORDERED: SODIUM BICARBONATE 8.4% 150 MEQ in DEXTROSE 5% 1,000 ML IV SCH (06:30)
[2019-01-13] MEDS: INSULIN ASPART 100 UNITS/ML 3 ML PEN SC SCH ×4 (06:45→23:38)
[2019-01-13] MEDS ORDERED: INSULIN ASPART 100 UNITS/ML 3 ML PEN SC SCH (07:30)
[2019-01-13] MEDS: FERROUS GLUCONATE 324 MG TAB PO SCH (07:50)
[2019-01-13] MEDS: PANTOprazole 40 MG TAB PO SCH (07:50)
[2019-01-13] MEDS: CLOPIDOGREL BISULFATE 75 MG TAB PO SCH (07:50)
[2019-01-13] MEDS: CARVEDILOL 6.25 MG TAB PO SCH ×2 (07:50→16:48)
[2019-01-13] MEDS: CYANOCOBALAMIN 500 MCG TABLET (VITAMIN B-12) PO SCH (07:50)
--- NOTE | 2019-01-13 07:50 | Nephrology Consultation ---
Date of Consultation January 13, 2019 Assessment & Plan (1) Hyperkalemia, diminished renal excretion: -started on bicarb gtt at 150 mL hourly, given cautiously given his HF hx -currently NPO >> when taking po, ensure low K diet -repeat K ordered for 1100 >> came back at 5.5; bicarb gtt stopped and move to HD as below Present on Admission?: Yes (2) Acute renal failure superimposed on chronic kidney disease: complex pt w/ baseline creatinine 1.7, 1.9 10 days ago and presenting w/ creatinine 4.7 and now hyperkalemia and new pericardial effusion verified on TTE (no evidence of tamponade currently) His urine sediment is contaminated and very concentrated - shows he had decreased po prior to presentation and may possibly be consistent w/ infection; he has chronic proteinuria/microhematuria. he is on losartan and metformin as OP; his digoxin level is not particularly elevated. No recent IV contrast or abtx or nsaids. likeliest cause here is ischemic atn in setting of lower bp, already poorer cardiac output, and meds; lactic acidosis w/ metformin also possible as is ( less likely) rhabdomyolysis; glomerular processes always on differential as are -f/u pending urology eval given hx of severe/chronic lower urinary tract obstruction - browning placed, no evidence of obstruction or other acute urologic issue; may need to get urology input on unchanged R renal mass<>? if site of prior ablation or other; not likely to have acute role here, however -f/u pending urine cx - on aztreonam; added blood cultures -he is relatively hypotensive w/ SBPin 90s (had been 110s prior admission)>> monitor -given subacute pericardial effusion on TTE, anuria, ongoing hyperkalemia will arrange emergent dialysis 2.5hrs today w/ up to 750 mL off as tolerated; plan another tx tomorrow as well then reassess -added CK, lactate to labs this evening -daily bmp -strict I/O Present on Admission?: Yes (3) History of renal carcinoma: History of Present Illness Reason for Consultation: TOBIN on CKD 3 w/ hypotension Requesting Physician: Dr Keene Attending Physician: Mayi Neil MD History of Present Illness 78 y/o M admitted overnight for TOBIN, elevated troponin, concern for UTI after presenting w/ N & generalized weakness, abdominal discomfort. His presenting creatinine was 4.8, 4.9 this am; his presenting K was 5.3, 6.1 this am. His baseline creatinine is 1.5-1.7, was 1.7 on 12/19/18, 1.9 on 01/03/19. Does not see nephrology as OP. PMH includes AF on coumadin, CAD s/p stenting, ICMO w/ EF 35% on digoxin, SVT s/p defibrillator, h/o R renal cell CA s/p cryoablation , DM2 on metformin, stroke, liver cirrhosis follows w/ GI, melanoma, lower urinary tract outflow problems including meatal stenosis/strictures and balanitis xerotica obliterans (follows w/ Dr. Barton [facility] [place]). Multiple [facility] admissions past 6 mos, includng 07/2018 3 days for SBP and congestive hepatopathy ; then 01/03/19 obs for noncardiac chest pain w/ creatinine running 1.9 that admission. No med changes after recent hospital d/c. Also he had TTE on w/ no pericardial effusion; on TTE today, moderate-large pericardial effusion present. He has made less than 100mL urine past 6 hrs; bladder scan w / 40 mL urine. K was medically treated this am w/ kayexalate one dose and bicarb gtt and ca gluconate and improved from 6.1>5.5. He has moved bowels at least once since arrival. Allergies Allergy/AdvReac Type Severity Reaction Status Date / Time fentanyl Allergy Severe Decreased Verified 01/12/19 19:06 oxygen saturation, low RR, unresponsive midazolam Allergy Severe Decreased Verified 01/12/19 19:06 oxygen saturation, low RR, unresponsive. codeine Allergy Unknown GI SYMPTOMS Verified 01/12/19 19:06 BRIANA Inhibitors AdvReac Mild cough, Verified 01/12/19 19:06 cefuroxime AdvReac Mild GI SYMPTOMS Verified 01/12/19 19:06 Home Medications Home Medications Medication Instructions Recorded Confirmed Type TESTOSTERONE GEL 1 applic TOPICAL QAM #0 10/12/17 01/12/19 History carvedilol 6.25 mg PO BIDM 08/16/18 01/12/19 History clopidogrel [Plavix] 75 mg PO QAM 08/16/18 01/12/19 History coenzyme Q10 [Co Q-10] 10 mg PO QAM 08/16/18 01/12/19 History cyanocobalamin (vitamin B-12) 1,000 mcg PO QAM 08/16/18 01/12/19 History digoxin 0.125 mg PO Q2D 08/16/18 01/12/19 History ferrous gluconate 324 mg PO QAM 08/16/18 01/12/19 History furosemide 60 mg PO QAM 08/16/18 01/12/19 History losartan 25 mg PO QAM 08/16/18 01/12/19 History metformin 1,000 mg PO QAM 08/16/18 01/12/19 History multivitamin [Multiple Vitamins] 1 tab PO QAM 08/16/18 01/12/19 History nitroglycerin [Nitrostat] 0.4 mg SUBLINGUAL UD PRN 08/16/18 01/12/19 History pantoprazole [Protonix] 40 mg PO QAM 08/16/18 01/12/19 History rosuvastatin [Crestor] 20 mg PO QAM 08/16/18 01/12/19 History sertraline 50 mg PO QAM 08/16/18 01/12/19 History warfarin [Coumadin] 5 mg PO 5XWK 08/16/18 01/12/19 History warfarin [Coumadin] 7.5 mg PO 2XWK 08/16/18 01/12/19 History fesoterodine [Toviaz] 8 mg PO DAILY 01/03/19 01/12/19 History mirabegron [Myrbetriq] 25 mg PO DAILY 01/03/19 01/12/19 History Patient History Medical History Depression (Chronic) HTN (hypertension) (Chronic) History of renal carcinoma (Chronic) CKD (chronic kidney disease), stage III (Chronic) Chronic systolic heart failure (Chronic) Chronic anemia (Chronic) Atrial fibrillation (Chronic) CAD (coronary artery disease) (Chronic) "2005 - PCI to LAD cath 2011 - no significant obstructive disease" DM type 2 (diabetes mellitus, type 2) (Chronic) Ischemic cardiomyopathy (Chronic) "echo 08/2015 - EF 25-30%, moderate tricuspid regurgitation" CVA (cerebral vascular accident) (Chronic) Squamous cell carcinoma (Chronic) Basal cell carcinoma (Chronic) V tach (Chronic) "s/p AICD placement" Cardiac defibrillator in place (Chronic) Surgical History History of cataract surgery (Chronic) History of cardiac catheterization (Chronic) History of prior ablation treatment (Chronic) CT guided tissue ablation R kidney Family History Other CAD (coronary artery disease) Diabetes Stomach cancer Social History marital status: Current Living Situation: Spouse Other Information That Helps Us Care for You: No Feels Safe at Home: Yes Safety Concerns: Feels Safe At This Time Smoking Status: Never smoker Do You Dip or Chew Tobacco: No Second Hand Exposure: No Tobacco Cessation Education Requested by Patient: No Hx Alcohol Use: No Hx Substance Use: No Beliefs That Will Affect Care: None Communication Ability: Unable Review of Systems limited by patient condition >> he is hard of hearing, w/ malaise/fatigue currently Constitutional: + malaise, + weakness and + anorexia Eyes: no worsening vision Ear, Nose, Mouth, Throat: + dry mouth Respiratory: + dyspnea and + pain on inspiration Cardiovascular: + chest pain; no palpitations and no edema Gastrointestinal: + nausea and + diarrhea/loose stools; no abdominal pain and no vomiting Genitourinary (Male): + difficulty urinating and + urinary hesitancy; no urinary incontinence and no hematuria Musculoskeletal: + back pain; no swelling and no muscle weakness Integumentary: no rash and no non-healing lesions Neurologic: + generalized weakness lethargy Psychiatric: + behavioral changes Endocrine: + fatigue Hematologic / Lymphatic: + easy bleeding Physical Exam 2 Vital Signs (Past 24 Hours): Last Vital Signs Temp 36.7 C 01/13/19 03:15 Pulse 81 01/13/19 03:15 Resp 18 01/13/19 03:15 BP 113/76 01/13/19 03:15 Pulse Ox 92 01/13/19 03:15 Constitutional: well developed and well nourished sitting in bed on 02NC2L , very mild distress w/ answering too many questions Eyes: EOM intact bilaterally ENMT: Ears: no external ear abnormality Nose: no external nose abnormality Mouth: + dry oral mucous membranes Neck: no nuchal rigidity Respiratory: normal respiratory effort; no respiratory distress and no labored breathing Auscultation: + diminished lung sounds and + crackles ( fine BL) Cardiovascular: RRR, no murmur, no edema Heart Sounds: no cardiac rub Gastrointestinal (Abdomen): Inspection/Auscultation: normal bowel sounds Percussion/Palpation: abdomen soft; abdomen nontender Musculoskeletal: needs assistance to lean; generalized weakness Skin: no rashes, warm and dry Neurologic: hoffman, fluent speech, no tremor Psychiatric: Orientation: oriented x 3 and cooperative very tired Genitourinary: browning w/ scant urine Results & Data Laboratory Results Abnormal lab results 01/12/19 01/12/19 01/12/19 Range/Units 17:40 17:40 19:00 WBC (4.8-10.8) K/uL RBC 2.60 L (4.7-6.1) M/uL Hgb 7.7 L (14.0-18.0) g/dL Hct 23.8 L (42-52) % RDW Std Deviation 47.3 H (36.4-46.3) fL Immature Gran # (Auto) 0.03 H (0.00-0.02) K/uL Neut # (Auto) 7.29 H (1.4-6.5) K/uL Lymph # (Auto) 0.87 L (1.2-3.4) K/uL Hardy # (Auto) 1.27 H (0.11-0.59) K/uL PT 80.7 H (9.0-12.0) Seconds INR 9.2 H* (0.9-1.1) Sodium 134 L (136-145) mmol/L Potassium 5.3 H (3.5-5.1) mmol/L Carbon Dioxide (21-32) mmol/L Anion Gap (3-11) BUN 82 H (7-18) mg/dl Creatinine 4.79 H* (0.6-1.4) mg/dl Glucose 159 H (70-99) mg/dl POC Glucose (70-99) Hemoglobin A1c (4.5-5.6) % Troponin I (0-0.045) ng/ml Globulin 4.6 H (2.5-4.0) gm/dl Albumin/Globulin Ratio 0.7 L (0.9-2) Urine Appearance (Clear) Urine Protein (Negative) Urine Ketones (Negative) Urine Blood (Negative) Ur Leukocyte Esterase (Negative) Urine WBC (Auto) (0-5) /hpf Urine RBC (Auto) (0-4) /hpf U Hyaline Cast (Auto) (0-5) /lpf U Epithel Cells (Auto) (0-5) /lpf Amorphous Sediment (None Prsent) Crossmatch 01/12/19 01/12/19 01/12/19 Range/Units 19:00 23:08 23:08 WBC (4.8-10.8) K/uL RBC (4.7-6.1) M/uL Hgb (14.0-18.0) g/dL Hct (42-52) % RDW Std Deviation (36.4-46.3) fL Immature Gran # (Auto) (0.00-0.02) K/uL Neut # (Auto) (1.4-6.5) K/uL Lymph # (Auto) (1.2-3.4) K/uL Hardy # (Auto) (0.11-0.59) K/uL PT (9.0-12.0) Seconds INR (0.9-1.1) Sodium (136-145) mmol/L Potassium (3.5-5.1) mmol/L Carbon Dioxide (21-32) mmol/L Anion Gap (3-11) BUN (7-18) mg/dl Creatinine (0.6-1.4) mg/dl Glucose (70-99) mg/dl POC Glucose (70-99) Hemoglobin A1c (4.5-5.6) % Troponin I 0.051 H* 0.049 H* (0-0.045) ng/ml Globulin (2.5-4.0) gm/dl Albumin/Globulin Ratio (0.9-2) Urine Appearance (Clear) Urine Protein (Negative) Urine Ketones (Negative) Urine Blood (Negative) Ur Leukocyte Esterase (Negative) Urine WBC (Auto) (0-5) /hpf Urine RBC (Auto) (0-4) /hpf U Hyaline Cast (Auto) (0-5) /lpf U Epithel Cells (Auto) (0-5) /lpf Amorphous Sediment (None Prsent) Crossmatch See Detail 01/12/19 01/13/19 01/13/19 Range/Units 23:12 04:54 04:54 WBC 11.26 H (4.8-10.8) K/uL RBC 2.67 L (4.7-6.1) M/uL Hgb 7.8 L (14.0-18.0) g/dL Hct 24.4 L (42-52) % RDW Std Deviation 47.2 H (36.4-46.3) fL Immature Gran # (Auto) 0.04 H (0.00-0.02) K/uL Neut # (Auto) 8.61 H (1.4-6.5) K/uL Lymph # (Auto) 1.01 L (1.2-3.4) K/uL Hardy # (Auto) 1.57 H (0.11-0.59) K/uL PT 42.4 H (9.0-12.0) Seconds INR 4.6 H (0.9-1.1) Sodium (136-145) mmol/L Potassium (3.5-5.1) mmol/L Carbon Dioxide (21-32) mmol/L Anion Gap (3-11) BUN (7-18) mg/dl Creatinine (0.6-1.4) mg/dl Glucose (70-99) mg/dl POC Glucose 131 H (70-99) Hemoglobin A1c (4.5-5.6) % Troponin I (0-0.045) ng/ml Globulin (2.5-4.0) gm/dl Albumin/Globulin Ratio (0.9-2) Urine Appearance (Clear) Urine Protein (Negative) Urine Ketones (Negative) Urine Blood (Negative) Ur Leukocyte Esterase (Negative) Urine WBC (Auto) (0-5) /hpf Urine RBC (Auto) (0-4) /hpf U Hyaline Cast (Auto) (0-5) /lpf U Epithel Cells (Auto) (0-5) /lpf Amorphous Sediment (None Prsent) Crossmatch 01/13/19 01/13/19 01/13/19 Range/Units 04:54 04:54 05:00 WBC (4.8-10.8) K/uL RBC (4.7-6.1) M/uL Hgb (14.0-18.0) g/dL Hct (42-52) % RDW Std Deviation (36.4-46.3) fL Immature Gran # (Auto) (0.00-0.02) K/uL Neut # (Auto) (1.4-6.5) K/uL Lymph # (Auto) (1.2-3.4) K/uL Hardy # (Auto) (0.11-0.59) K/uL PT (9.0-12.0) Seconds INR (0.9-1.1) Sodium 132 L (136-145) mmol/L Potassium 6.1 H* D (3.5-5.1) mmol/L Carbon Dioxide 18 L (21-32) mmol/L Anion Gap 12.0 H (3-11) BUN 83 H (7-18) mg/dl Creatinine 4.94 H* (0.6-1.4) mg/dl Glucose 128 H (70-99) mg/dl POC Glucose (70-99) Hemoglobin A1c 6.4 H (4.5-5.6) % Troponin I 0.056 H* (0-0.045) ng/ml Globulin (2.5-4.0) gm/dl Albumin/Globulin Ratio (0.9-2) Urine Appearance Turbid H (Clear) Urine Protein 2+ H (Negative) Urine Ketones Trace H (Negative) Urine Blood 3+ H (Negative) Ur Leukocyte Esterase 3+ H (Negative) Urine WBC (Auto) >30 H (0-5) /hpf Urine RBC (Auto) >30 H (0-4) /hpf U Hyaline Cast (Auto) 5-10 H (0-5) /lpf U Epithel Cells (Auto) >30 H (0-5) /lpf Amorphous Sediment Present H (None Prsent) Crossmatch 01/13/19 01/13/19 01/13/19 Range/Units 06:31 10:58 10:58 WBC (4.8-10.8) K/uL RBC (4.7-6.1) M/uL Hgb (14.0-18.0) g/dL Hct (42-52) % RDW Std Deviation (36.4-46.3) fL Immature Gran # (Auto) (0.00-0.02) K/uL Neut # (Auto) (1.4-6.5) K/uL Lymph # (Auto) (1.2-3.4) K/uL Hardy # (Auto) (0.11-0.59) K/uL PT (9.0-12.0) Seconds INR (0.9-1.1) Sodium 133 L (136-145) mmol/L Potassium 5.5 H (3.5-5.1) mmol/L Carbon Dioxide (21-32) mmol/L Anion Gap 12.0 H (3-11) BUN 89 H (7-18) mg/dl Creatinine 5.25 H* D (0.6-1.4) mg/dl Glucose 165 H (70-99) mg/dl POC Glucose 133 H (70-99) Hemoglobin A1c (4.5-5.6) % Troponin I 0.064 H* (0-0.045) ng/ml Globulin (2.5-4.0) gm/dl Albumin/Globulin Ratio (0.9-2) Urine Appearance (Clear) Urine Protein (Negative) Urine Ketones (Negative) Urine Blood (Negative) Ur Leukocyte Esterase (Negative) Urine WBC (Auto) (0-5) /hpf Urine RBC (Auto) (0-4) /hpf U Hyaline Cast (Auto) (0-5) /lpf U Epithel Cells (Auto) (0-5) /lpf Amorphous Sediment (None Prsent) Crossmatch 01/13/19 01/13/19 Range/Units 11:52 16:52 WBC (4.8-10.8) K/uL RBC (4.7-6.1) M/uL Hgb (14.0-18.0) g/dL Hct (42-52) % RDW Std Deviation (36.4-46.3) fL Immature Gran # (Auto) (0.00-0.02) K/uL Neut # (Auto) (1.4-6.5) K/uL Lymph # (Auto) (1.2-3.4) K/uL Hardy # (Auto) (0.11-0.59) K/uL PT (9.0-12.0) Seconds INR (0.9-1.1) Sodium (136-145) mmol/L Potassium (3.5-5.1) mmol/L Carbon Dioxide (21-32) mmol/L Anion Gap (3-11) BUN (7-18) mg/dl Creatinine (0.6-1.4) mg/dl Glucose (70-99) mg/dl POC Glucose 187 H 156 H (70-99) Hemoglobin A1c (4.5-5.6) % Troponin I (0-0.045) ng/ml Globulin (2.5-4.0) gm/dl Albumin/Globulin Ratio (0.9-2) Urine Appearance (Clear) Urine Protein (Negative) Urine Ketones (Negative) Urine Blood (Negative) Ur Leukocyte Esterase (Negative) Urine WBC (Auto) (0-5) /hpf Urine RBC (Auto) (0-4) /hpf U Hyaline Cast (Auto) (0-5) /lpf U Epithel Cells (Auto) (0-5) /lpf Amorphous Sediment (None Prsent) Crossmatch Diagnostic Findings ABDOMEN AND PELVIS CT WITHOUT CONTRAST 01/12/19 CT DOSE: 688.26 mGy.cm HISTORY: Acute nausea and vomiting vomiting TECHNIQUE: Multiaxial CT images of the abdomen and pelvis were performed without contrast. A dose lowering technique was utilized adhering to the principles of ALARA. COMPARISON STUDY: CT abdomen and pelvis 12/29/2018. FINDINGS: Trace pleural effusions. Subsegmental bibasilar opacities are suggestive of atelectasis. There is no pneumatosis or pneumoperitoneum identified. Marked enlargement of the imaged inferior cardiac chambers with coronary arterial calcifications. There is a moderate to large pericardial effusion which is new from prior study measuring up to 3.0 cm posteriorly. Cirrhotic liver disease. Mildly contracted gallbladder with gallbladder wall thickening. No intrahepatic biliary ductal dilation. Scattered calcifications are noted about the ata hepatis. Spleen, pancreas and adrenal glands are unremarkable. 3 mm calcification of the right adrenal gland is unchanged. Moderate nonspecific bilateral perinephric stranding. 4.1 cm cyst of the interpolar left kidney. Indeterminate 2.2 cm lesion of the lateral interpolar right kidney demonstrates soft tissue attenuation, also unchanged. There is adjacent punctate calcification noted along the medial aspect of this lesion. No ureteral calculi or obstructive uropathy. Partial distention of the urinary bladder with moderate circumferential wall thickening. Since of calcification of the aorta without aneurysm. Smallvolume of abdominal pelvic ascites has increased from comparison. No small bowel obstruction. Large bilateral hernias containing mesenteric fat and nonobstructed bowel redemonstrated. Since of colonic diverticulosis without CT evidence of acute diverticulitis. No evidence of acute appendicitis. Diffuse mesenteric and body wall edema with gynecomastia. Demineralized appearance of the bones. Multilevel facet arthrosis with spondylitic spurring. IMPRESSION: 1. No bowel obstruction or focal bowel wall thickening. 2. Extensive colonic diverticulosis without acute diverticulitis. 3. Cirrhotic liver disease with new moderate to large pericardial effusion and small volume of abdominal pelvic ascites. 4. Large bilateral inguinal hernias containing nonobstructed loops of bowel. 5. Indeterminate soft tissue attenuating 2.2 cm lesion of the interpolar right kidney, unchanged. 6. Trace pleural effusions. 7. Circumferential wall thickening of the urinary bladder with partial distention. Correlate with urinalysis to exclude cystitis. 8. Additional findings as above. _ (1) Acute renal failure superimposed on chronic kidney disease Chronic kidney disease stage: stage 3 (moderate)
[2019-01-13] MEDS: SERTRALINE HCL 50 MG TABLET PO SCH (07:51)
[2019-01-13] MEDS: AZTREONAM 500 MG in DEXTROSE 5% 100 ML IV SCH ×3 (08:40→23:29)
[2019-01-13] MEDS ORDERED: MIRABEGRON ER 25 MG TAB PO SCH (09:00)
[2019-01-13] MEDS ORDERED: ROSUVASTATIN CALCIUM 20 MG TAB PO SCH (09:00)
--- NOTE | 2019-01-13 10:22 | Urology Consultation ---
Date of Consultation January 13, 2019 Assessment & Plan (1) Acute renal failure superimposed on chronic kidney disease: (2) History of renal carcinoma: 69yo F admitted with hx of RCC, BXO and ureteral stricture. dx with TOBIN. Pt evaluated by Dr. Syed today, repeat images reviewed. Imaging is stable, no new obstruction or source of post-renal ARF. No acute intervention indicated at this time. UC&S pending - please treat based on sensitivities for 10-14 days if indicated, renally dosed. Appreciate Nephrology's input. Will keep f/u as scheduled for mid-January with repeat imaging. Thank you for allowing us to participate in the acute care of Mr. Cottrell. Please reconsult us with additional concerns, questions or changes in patient status. Please see additional comments per my attending, if indicated. History of Present Illness Reason for Consultation: TOBIN, hx RCC Requesting Physician: Dr Neil Attending Physician: Mayi Neil MD History of Present Illness 78yo M well known to our practice, established with Dr. Galarza. Hx RCC treated with percutaneous ablation, severe BXO and ureteral stricture. Other signficant PMHx includes but not limited to ischemic cardiomyopathy, CKD III baseline Cr 1.7, liver cirrhosis. Presented to [facility] with complaints of weakness and nausea. Found to be in TOBIN, Cr 4.79, hyperkalemia. CT imaging reviewed. Indwelling browning catheter intact, oliguric. UA abnormal, some contamination with large wbc, +3 leuks, +2 protein, casts and sediment. UC&S pending. Allergies Allergy/AdvReac Type Severity Reaction Status Date / Time fentanyl Allergy Severe Decreased Verified 01/12/19 19:06 oxygen saturation, low RR, unresponsive midazolam Allergy Severe Decreased Verified 01/12/19 19:06 oxygen saturation, low RR, unresponsive. codeine Allergy Unknown GI SYMPTOMS Verified 01/12/19 19:06 BRIANA Inhibitors AdvReac Mild cough, Verified 01/12/19 19:06 cefuroxime AdvReac Mild GI SYMPTOMS Verified 01/12/19 19:06 Home Medications Home Medications Medication Instructions Recorded Confirmed Type TESTOSTERONE GEL 1 applic TOPICAL QAM #0 10/12/17 01/12/19 History carvedilol 6.25 mg PO BIDM 08/16/18 01/12/19 History clopidogrel [Plavix] 75 mg PO QAM 08/16/18 01/12/19 History coenzyme Q10 [Co Q-10] 10 mg PO QAM 08/16/18 01/12/19 History cyanocobalamin (vitamin B-12) 1,000 mcg PO QAM 08/16/18 01/12/19 History digoxin 0.125 mg PO Q2D 08/16/18 01/12/19 History ferrous gluconate 324 mg PO QAM 08/16/18 01/12/19 History furosemide 60 mg PO QAM 08/16/18 01/12/19 History losartan 25 mg PO QAM 08/16/18 01/12/19 History metformin 1,000 mg PO QAM 08/16/18 01/12/19 History multivitamin [Multiple Vitamins] 1 tab PO QAM 08/16/18 01/12/19 History nitroglycerin [Nitrostat] 0.4 mg SUBLINGUAL UD PRN 08/16/18 01/12/19 History pantoprazole [Protonix] 40 mg PO QAM 08/16/18 01/12/19 History rosuvastatin [Crestor] 20 mg PO QAM 08/16/18 01/12/19 History sertraline 50 mg PO QAM 08/16/18 01/12/19 History warfarin [Coumadin] 5 mg PO 5XWK 08/16/18 01/12/19 History warfarin [Coumadin] 7.5 mg PO 2XWK 08/16/18 01/12/19 History fesoterodine [Toviaz] 8 mg PO DAILY 01/03/19 01/12/19 History mirabegron [Myrbetriq] 25 mg PO DAILY 01/03/19 01/12/19 History Patient History Medical History Depression (Chronic) HTN (hypertension) (Chronic) History of renal carcinoma (Chronic) CKD (chronic kidney disease), stage III (Chronic) Chronic systolic heart failure (Chronic) Chronic anemia (Chronic) Atrial fibrillation (Chronic) CAD (coronary artery disease) (Chronic) "2005 - PCI to LAD cath 2011 - no significant obstructive disease" DM type 2 (diabetes mellitus, type 2) (Chronic) Ischemic cardiomyopathy (Chronic) "echo 08/2015 - EF 25-30%, moderate tricuspid regurgitation" CVA (cerebral vascular accident) (Chronic) Squamous cell carcinoma (Chronic) Basal cell carcinoma (Chronic) V tach (Chronic) "s/p AICD placement" Cardiac defibrillator in place (Chronic) Surgical History History of cataract surgery (Chronic) History of cardiac catheterization (Chronic) History of prior ablation treatment (Chronic) CT guided tissue ablation R kidney Family History Other CAD (coronary artery disease) Diabetes Stomach cancer Social History marital status: Current Living Situation: Spouse Other Information That Helps Us Care for You: No Feels Safe at Home: Yes Safety Concerns: Feels Safe At This Time Smoking Status: Never smoker Do You Dip or Chew Tobacco: No Second Hand Exposure: No Tobacco Cessation Education Requested by Patient: No Hx Alcohol Use: No Hx Substance Use: No Beliefs That Will Affect Care: None Preferred Language: Belgian Communication Ability: Effective Cooky Packer Required: No Review of Systems Constitutional: no fever and no chills Eyes: no problem reported Ear, Nose, Mouth, Throat: no ear pain Respiratory: no cough and no dyspnea Cardiovascular: no chest pain Gastrointestinal: no abdominal pain Genitourinary (Male): no dysuria and no urinary hesitancy Musculoskeletal: no back pain reports mild shoulder pain at times. Integumentary: no acne and no rash Neurologic: no numbness and no paresthesia Psychiatric: no behavioral changes Endocrine: no fatigue, no polydipsia and no polyphagia Hematologic / Lymphatic: no easy bleeding Allergy / Immunological: no problem reported Physical Exam Vital Signs (Past 24 Hours): Last Vital Signs Temp 36.7 C 01/13/19 07:47 Pulse 91 H 01/13/19 07:47 Resp 19 01/13/19 07:47 BP 102/62 01/13/19 07:47 Pulse Ox 92 01/13/19 07:47 Constitutional: + ill appearing; no acute distress Eyes: no nystagmus ENMT: Ears: + hearing impairment Neck: trachea midline Respiratory: no respiratory distress and does not use accessory muscles Cardiovascular: Vessels: no JVD Gastrointestinal (Abdomen): Inspection/Auscultation: abdomen not distended and no abdominal edema Musculoskeletal: Head/Neck/Chest: + abnormal head shape Skin: no rashes, warm and dry Neurologic: patellar DTR's 2+ bilat, sensation intact Psychiatric: Orientation: alert, oriented to person, oriented to place and cooperative Eye Contact: good eye contact slow to respond but appropriate. Genitourinary: browning catheter intact,draining minimal amount of cloudy yellow to light pink. No swelling or drainage surrounding urethral meatus. Lymphatic: no lymphadenopathy Results & Data Laboratory Results Laboratory Results - last 48 hr 01/12/19 01/12/19 01/12/19 17:40 17:40 17:40 WBC 9.55 RBC 2.60 L Hgb 7.7 L Hct 23.8 L MCV 91.5 MCH 29.6 MCHC 32.4 RDW Std Deviation 47.3 H RDW Coeff of Dung 14.1 Plt Count 262 MPV 10.1 Immature Gran % (Auto) 0.3 Neut % (Auto) 76.4 Lymph % (Auto) 9.1 Quay % (Auto) 13.3 Eos % (Auto) 0.7 Baso % (Auto) 0.2 Immature Gran # (Auto) 0.03 H Neut # (Auto) 7.29 H Lymph # (Auto) 0.87 L Quay # (Auto) 1.27 H Eos # (Auto) 0.07 Baso # (Auto) 0.02 Ovalocytes 1+ PT INR Sodium 134 L Potassium 5.3 H Chloride 101 Carbon Dioxide 23 Anion Gap 10.0 BUN 82 H Creatinine 4.79 H* Est Cr Clr Drug Dosing Not Reportable Est GFR ( Amer) 12.4 Est GFR (Non-Af Amer) 10.7 BUN/Creatinine Ratio 17.1 Glucose 159 H POC Glucose Estimat Average Glucose Hemoglobin A1c Calcium 9.2 Magnesium Total Bilirubin 0.4 AST 21 ALT 26 Alkaline Phosphatase 94 Troponin I Total Protein 8.0 Albumin 3.4 Globulin 4.6 H Albumin/Globulin Ratio 0.7 L Lipase 186 Urine Color Urine Appearance Urine pH Ur Specific [place] Urine Protein Urine Glucose (UA) Urine Ketones Urine Blood Urine Nitrite Urine Bilirubin Urine Urobilinogen Ur Leukocyte Esterase Urine WBC (Auto) Urine RBC (Auto) U Hyaline Cast (Auto) U Epithel Cells (Auto) Urine Bacteria (Auto) Amorphous Sediment Digoxin 1.6 Blood Type Antibody Screen Crossmatch 01/12/19 01/12/19 01/12/19 19:00 19:00 23:08 WBC RBC Hgb Hct MCV MCH MCHC RDW Std Deviation RDW Coeff of Dung Plt Count MPV Immature Gran % (Auto) Neut % (Auto) Lymph % (Auto) Quay % (Auto) Eos % (Auto) Baso % (Auto) Immature Gran # (Auto) Neut # (Auto) Lymph # (Auto) Quay # (Auto) Eos # (Auto) Baso # (Auto) Ovalocytes PT 80.7 H INR 9.2 H* Sodium Potassium Chloride Carbon Dioxide Anion Gap BUN Creatinine Est Cr Clr Drug Dosing Est GFR ( Amer) Est GFR (Non-Af Amer) BUN/Creatinine Ratio Glucose POC Glucose Estimat Average Glucose Hemoglobin A1c Calcium Magnesium Total Bilirubin AST ALT Alkaline Phosphatase Troponin I 0.051 H* Total Protein Albumin Globulin Albumin/Globulin Ratio Lipase Urine Color Urine Appearance Urine pH Ur Specific [place] Urine Protein Urine Glucose (UA) Urine Ketones Urine Blood Urine Nitrite Urine Bilirubin Urine Urobilinogen Ur Leukocyte Esterase Urine WBC (Auto) Urine RBC (Auto) U Hyaline Cast (Auto) U Epithel Cells (Auto) Urine Bacteria (Auto) Amorphous Sediment Digoxin Blood Type A Positive Antibody Screen NEGATIVE Crossmatch See Detail 01/12/19 01/12/19 01/13/19 23:08 23:12 04:54 WBC RBC Hgb Hct MCV MCH MCHC RDW Std Deviation RDW Coeff of Dung Plt Count MPV Immature Gran % (Auto) Neut % (Auto) Lymph % (Auto) Quay % (Auto) Eos % (Auto) Baso % (Auto) Immature Gran # (Auto) Neut # (Auto) Lymph # (Auto) Quay # (Auto) Eos # (Auto) Baso # (Auto) Ovalocytes PT 42.4 H INR 4.6 H Sodium Potassium Chloride Carbon Dioxide Anion Gap BUN Creatinine Est Cr Clr Drug Dosing Est GFR ( Amer) Est GFR (Non-Af Amer) BUN/Creatinine Ratio Glucose POC Glucose 131 H Estimat Average Glucose Hemoglobin A1c Calcium Magnesium Total Bilirubin AST ALT Alkaline Phosphatase Troponin I 0.049 H* Total Protein Albumin Globulin Albumin/Globulin Ratio Lipase Urine Color Urine Appearance Urine pH Ur Specific [place] Urine Protein Urine Glucose (UA) Urine Ketones Urine Blood Urine Nitrite Urine Bilirubin Urine Urobilinogen Ur Leukocyte Esterase Urine WBC (Auto) Urine RBC (Auto) U Hyaline Cast (Auto) U Epithel Cells (Auto) Urine Bacteria (Auto) Amorphous Sediment Digoxin Blood Type Antibody Screen Crossmatch 01/13/19 01/13/19 01/13/19 04:54 04:54 04:54 WBC 11.26 H RBC 2.67 L Hgb 7.8 L Hct 24.4 L MCV 91.4 MCH 29.2 MCHC 32.0 RDW Std Deviation 47.2 H RDW Coeff of Dung 14.2 Plt Count 270 MPV 9.6 Immature Gran % (Auto) 0.4 Neut % (Auto) 76.4 Lymph % (Auto) 9.0 Quay % (Auto) 13.9 Eos % (Auto) 0.1 Baso % (Auto) 0.2 Immature Gran # (Auto) 0.04 H Neut # (Auto) 8.61 H Lymph # (Auto) 1.01 L Quay # (Auto) 1.57 H Eos # (Auto) 0.01 Baso # (Auto) 0.02 Ovalocytes 1+ PT INR Sodium 132 L Potassium 6.1 H* D Chloride 102 Carbon Dioxide 18 L Anion Gap 12.0 H BUN 83 H Creatinine 4.94 H* Est Cr Clr Drug Dosing 12.5 Est GFR ( Amer) 12.0 Est GFR (Non-Af Amer) 10.3 BUN/Creatinine Ratio 16.8 Glucose 128 H POC Glucose Estimat Average Glucose 137 Hemoglobin A1c 6.4 H Calcium 8.6 Magnesium 2.3 Total Bilirubin AST ALT Alkaline Phosphatase Troponin I 0.056 H* Total Protein Albumin Globulin Albumin/Globulin Ratio Lipase Urine Color Urine Appearance Urine pH Ur Specific [place] Urine Protein Urine Glucose (UA) Urine Ketones Urine Blood Urine Nitrite Urine Bilirubin Urine Urobilinogen Ur Leukocyte Esterase Urine WBC (Auto) Urine RBC (Auto) U Hyaline Cast (Auto) U Epithel Cells (Auto) Urine Bacteria (Auto) Amorphous Sediment Digoxin Blood Type Antibody Screen Crossmatch 01/13/19 01/13/19 05:00 06:31 WBC RBC Hgb Hct MCV MCH MCHC RDW Std Deviation RDW Coeff of Dung Plt Count MPV Immature Gran % (Auto) Neut % (Auto) Lymph % (Auto) Quay % (Auto) Eos % (Auto) Baso % (Auto) Immature Gran # (Auto) Neut # (Auto) Lymph # (Auto) Quay # (Auto) Eos # (Auto) Baso # (Auto) Ovalocytes PT INR Sodium Potassium Chloride Carbon Dioxide Anion Gap BUN Creatinine Est Cr Clr Drug Dosing Est GFR ( Amer) Est GFR (Non-Af Amer) BUN/Creatinine Ratio Glucose POC Glucose 133 H Estimat Average Glucose Hemoglobin A1c Calcium Magnesium Total Bilirubin AST ALT Alkaline Phosphatase Troponin I Total Protein Albumin Globulin Albumin/Globulin Ratio Lipase Urine Color Dark Yellow Urine Appearance Turbid H Urine pH 5.0 Ur Specific [place] 1.022 Urine Protein 2+ H Urine Glucose (UA) Negative Urine Ketones Trace H Urine Blood 3+ H Urine Nitrite Negative Urine Bilirubin Negative Urine Urobilinogen Negative Ur Leukocyte Esterase 3+ H Urine WBC (Auto) >30 H Urine RBC (Auto) >30 H U Hyaline Cast (Auto) 5-10 H U Epithel Cells (Auto) >30 H Urine Bacteria (Auto) Negative Amorphous Sediment Present H Digoxin Blood Type Antibody Screen Crossmatch (1) Acute renal failure superimposed on chronic kidney disease Acute renal failure type: Chronic kidney disease stage: stage 3 (moderate)
[2019-01-13] MEDS ORDERED: LIDOCAINE VISCOUS 2% 100ML PRN (11:08)
[2019-01-13] MEDS ORDERED: LIDOCAINE 2% JELLY 5 ML TUBE ONE (11:35)
[2019-01-13 11:57] LABS: Calcium 9.1 mg/dl (8.5-10.1); Creatinine Clr Calc Pharmacy 11.8 ml/min; Est GFR (African American) 11.1; Est GFR (Non-African American) 9.6; Potassium 5.5 mmol/L (3.5-5.1)
--- NOTE | 2019-01-13 12:09 | Cardiology Consultation ---
Date of Consultation January 13, 2019 Assessment & Plan (1) Renal failure: Nephrology is on the case. Believe this patient would benefit from dialysis at least in the short-term. (2) Acute renal failure superimposed on chronic kidney disease: (3) Ischemic cardiomyopathy: (4) Atrial fibrillation: (5) Cardiac defibrillator in place: (6) Pericardial effusion: The effusion is most likely due to renal failure. An echocardiogram will be obtained but in my experience the CAT scan can overestimate the amount of effusion. In any case the treatment should be the same and it most likely will benefit from dialysis. History of Present Illness Attending Physician: Mayi Neil MD History of Present Illness This is a 78-year-old male patient who was just recently discharged from the hospital. He has numerous medical problems including the ones that are outlined below. He has had multiple hospital admissions over the past 6 months. His most recent hospital admission was for upper back pain and chest discomfort. After he was discharged home, developed lethargy confusion and just was not doing well. He lives with his daughter and her family and they brought him back to the emergency department where he has been admitted. He has acute on chronic renal failure and his symptoms are most likely related to uremia. We have been asked to see him because on a CT of the abdomen the radiologist indicated a moderate sized pericardial effusion. He will have a follow-up echocardiogram but clinically I do not believe he is in tamponade and the effusion is most likely related to his uremia and renal failure. PAST SURGICAL HISTORY: 1. Cardiac catheterization in 2011 with PCI to the LAD and repeat cardiac catheterization in 2011 showing no obstruction. 2. Single lead ICD placement. 3. Cataract surgery. 4. Nasal fracture repair. MEDICAL ILLNESSES: 1. 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 2. History of sustained V-tach, status post defibrillator placement in 2011 with a single lead [employer] device. 3. Cardiac catheterization, status post PCI to the LAD. 4. Chronic atrial fibrillation. 5. History of left MCA stroke. 6. Thrombotic AK in 2006. 7. History of cirrhosis and SBP. Allergies Allergy/AdvReac Type Severity Reaction Status Date / Time fentanyl Allergy Severe Decreased Verified 01/12/19 19:06 oxygen saturation, low RR, unresponsive midazolam Allergy Severe Decreased Verified 01/12/19 19:06 oxygen saturation, low RR, unresponsive. codeine Allergy Unknown GI SYMPTOMS Verified 01/12/19 19:06 BRIANA Inhibitors AdvReac Mild cough, Verified 01/12/19 19:06 cefuroxime AdvReac Mild GI SYMPTOMS Verified 01/12/19 19:06 Home Medications Home Medications Medication Instructions Recorded Confirmed Type TESTOSTERONE GEL 1 applic TOPICAL QAM #0 10/12/17 01/12/19 History carvedilol 6.25 mg PO BIDM 08/16/18 01/12/19 History clopidogrel [Plavix] 75 mg PO QAM 08/16/18 01/12/19 History coenzyme Q10 [Co Q-10] 10 mg PO QAM 08/16/18 01/12/19 History cyanocobalamin (vitamin B-12) 1,000 mcg PO QAM 08/16/18 01/12/19 History digoxin 0.125 mg PO Q2D 08/16/18 01/12/19 History ferrous gluconate 324 mg PO QAM 08/16/18 01/12/19 History furosemide 60 mg PO QAM 08/16/18 01/12/19 History losartan 25 mg PO QAM 08/16/18 01/12/19 History metformin 1,000 mg PO QAM 08/16/18 01/12/19 History multivitamin [Multiple Vitamins] 1 tab PO QAM 08/16/18 01/12/19 History nitroglycerin [Nitrostat] 0.4 mg SUBLINGUAL UD PRN 08/16/18 01/12/19 History pantoprazole [Protonix] 40 mg PO QAM 08/16/18 01/12/19 History rosuvastatin [Crestor] 20 mg PO QAM 08/16/18 01/12/19 History sertraline 50 mg PO QAM 08/16/18 01/12/19 History warfarin [Coumadin] 5 mg PO 5XWK 08/16/18 01/12/19 History warfarin [Coumadin] 7.5 mg PO 2XWK 08/16/18 01/12/19 History fesoterodine [Toviaz] 8 mg PO DAILY 01/03/19 01/12/19 History mirabegron [Myrbetriq] 25 mg PO DAILY 01/03/19 01/12/19 History Patient History Medical History Depression (Chronic) HTN (hypertension) (Chronic) History of renal carcinoma (Chronic) CKD (chronic kidney disease), stage III (Chronic) Chronic systolic heart failure (Chronic) Chronic anemia (Chronic) Atrial fibrillation (Chronic) CAD (coronary artery disease) (Chronic) "2005 - PCI to LAD cath 2011 - no significant obstructive disease" DM type 2 (diabetes mellitus, type 2) (Chronic) Ischemic cardiomyopathy (Chronic) "echo 08/2015 - EF 25-30%, moderate tricuspid regurgitation" CVA (cerebral vascular accident) (Chronic) Squamous cell carcinoma (Chronic) Basal cell carcinoma (Chronic) V tach (Chronic) "s/p AICD placement" Cardiac defibrillator in place (Chronic) Surgical History History of cataract surgery (Chronic) History of cardiac catheterization (Chronic) History of prior ablation treatment (Chronic) CT guided tissue ablation R kidney Family History Other CAD (coronary artery disease) Diabetes Stomach cancer Social History marital status: Current Living Situation: Spouse Other Information That Helps Us Care for You: No Feels Safe at Home: Yes Safety Concerns: Feels Safe At This Time Smoking Status: Never smoker Do You Dip or Chew Tobacco: No Second Hand Exposure: No Tobacco Cessation Education Requested by Patient: No Hx Alcohol Use: No Hx Substance Use: No Beliefs That Will Affect Care: None Preferred Language: Venezuelan Communication Ability: Effective Oncology Coordinator Required: No Review of Systems Review of Systems: See HPI for pertinent positives. All other 10 point review of systems are negative. Physical Exam 2 Vital Signs (Past 24 Hours): Last Vital Signs Temp 36.7 C 01/13/19 07:47 Pulse 91 H 01/13/19 07:47 Resp 19 01/13/19 07:47 BP 102/62 01/13/19 07:47 Pulse Ox 92 01/13/19 07:47 Physical Exam: General: He is sitting comfortably in the chair. He is hard of hearing but is alert. Head: normocephalic, no masses, lesions, tenderness or abnormalities Eyes: conjunctiva are pink and non-injected, sclera clear Neck: supple, no adenopathy, no bruits, normal jugular venous pulse, no hepatojugular reflux Chest: normal shape and normal respiratory effort Lungs: clear to auscultation and percussion Cardiac Exam: - regular rate & rhythm, no cardiac rubs. Pulses: 2(+) throughout Abdomen: abdomen soft, non-tender, no abnormal masses and no hepatosplenomegaly Musculoskeletal: no gait disturbance, no joint inflammation, no deforming arthritis Extremities: no edema and no cyanosis Neuro: grossly normal exam Results & Data Laboratory Results Laboratory Results - last 24 hr 01/12/19 01/12/19 01/12/19 17:40 17:40 17:40 WBC 9.55 RBC 2.60 L Hgb 7.7 L Hct 23.8 L MCV 91.5 MCH 29.6 MCHC 32.4 RDW Std Deviation 47.3 H RDW Coeff of Dung 14.1 Plt Count 262 MPV 10.1 Immature Gran % (Auto) 0.3 Neut % (Auto) 76.4 Lymph % (Auto) 9.1 [place] % (Auto) 13.3 Eos % (Auto) 0.7 Baso % (Auto) 0.2 Immature Gran # (Auto) 0.03 H Neut # (Auto) 7.29 H Lymph # (Auto) 0.87 L [place] # (Auto) 1.27 H Eos # (Auto) 0.07 Baso # (Auto) 0.02 Ovalocytes 1+ PT INR Sodium 134 L Potassium 5.3 H Chloride 101 Carbon Dioxide 23 Anion Gap 10.0 BUN 82 H Creatinine 4.79 H* Est Cr Clr Drug Dosing Not Reportable Est GFR ( Amer) 12.4 Est GFR (Non-Af Amer) 10.7 BUN/Creatinine Ratio 17.1 Glucose 159 H POC Glucose Estimat Average Glucose Hemoglobin A1c Calcium 9.2 Magnesium Total Bilirubin 0.4 AST 21 ALT 26 Alkaline Phosphatase 94 Troponin I Total Protein 8.0 Albumin 3.4 Globulin 4.6 H Albumin/Globulin Ratio 0.7 L Lipase 186 Urine Color Urine Appearance Urine pH Ur Specific [place] Urine Protein Urine Glucose (UA) Urine Ketones Urine Blood Urine Nitrite Urine Bilirubin Urine Urobilinogen Ur Leukocyte Esterase Urine WBC (Auto) Urine RBC (Auto) U Hyaline Cast (Auto) U Epithel Cells (Auto) Urine Bacteria (Auto) Amorphous Sediment Digoxin 1.6 Blood Type Antibody Screen Crossmatch 01/12/19 01/12/19 01/12/19 19:00 19:00 23:08 WBC RBC Hgb Hct MCV MCH MCHC RDW Std Deviation RDW Coeff of Dung Plt Count MPV Immature Gran % (Auto) Neut % (Auto) Lymph % (Auto) [place] % (Auto) Eos % (Auto) Baso % (Auto) Immature Gran # (Auto) Neut # (Auto) Lymph # (Auto) [place] # (Auto) Eos # (Auto) Baso # (Auto) Ovalocytes PT 80.7 H INR 9.2 H* Sodium Potassium Chloride Carbon Dioxide Anion Gap BUN Creatinine Est Cr Clr Drug Dosing Est GFR ( Amer) Est GFR (Non-Af Amer) BUN/Creatinine Ratio Glucose POC Glucose Estimat Average Glucose Hemoglobin A1c Calcium Magnesium Total Bilirubin AST ALT Alkaline Phosphatase Troponin I 0.051 H* Total Protein Albumin Globulin Albumin/Globulin Ratio Lipase Urine Color Urine Appearance Urine pH Ur Specific [place] Urine Protein Urine Glucose (UA) Urine Ketones Urine Blood Urine Nitrite Urine Bilirubin Urine Urobilinogen Ur Leukocyte Esterase Urine WBC (Auto) Urine RBC (Auto) U Hyaline Cast (Auto) U Epithel Cells (Auto) Urine Bacteria (Auto) Amorphous Sediment Digoxin Blood Type A Positive Antibody Screen NEGATIVE Crossmatch See Detail 01/12/19 01/12/19 01/13/19 23:08 23:12 04:54 WBC RBC Hgb Hct MCV MCH MCHC RDW Std Deviation RDW Coeff of Dung Plt Count MPV Immature Gran % (Auto) Neut % (Auto) Lymph % (Auto) [place] % (Auto) Eos % (Auto) Baso % (Auto) Immature Gran # (Auto) Neut # (Auto) Lymph # (Auto) [place] # (Auto) Eos # (Auto) Baso # (Auto) Ovalocytes PT 42.4 H INR 4.6 H Sodium Potassium Chloride Carbon Dioxide Anion Gap BUN Creatinine Est Cr Clr Drug Dosing Est GFR ( Amer) Est GFR (Non-Af Amer) BUN/Creatinine Ratio Glucose POC Glucose 131 H Estimat Average Glucose Hemoglobin A1c Calcium Magnesium Total Bilirubin AST ALT Alkaline Phosphatase Troponin I 0.049 H* Total Protein Albumin Globulin Albumin/Globulin Ratio Lipase Urine Color Urine Appearance Urine pH Ur Specific [place] Urine Protein Urine Glucose (UA) Urine Ketones Urine Blood Urine Nitrite Urine Bilirubin Urine Urobilinogen Ur Leukocyte Esterase Urine WBC (Auto) Urine RBC (Auto) U Hyaline Cast (Auto) U Epithel Cells (Auto) Urine Bacteria (Auto) Amorphous Sediment Digoxin Blood Type Antibody Screen Crossmatch 01/13/19 01/13/19 01/13/19 04:54 04:54 04:54 WBC 11.26 H RBC 2.67 L Hgb 7.8 L Hct 24.4 L MCV 91.4 MCH 29.2 MCHC 32.0 RDW Std Deviation 47.2 H RDW Coeff of Dung 14.2 Plt Count 270 MPV 9.6 Immature Gran % (Auto) 0.4 Neut % (Auto) 76.4 Lymph % (Auto) 9.0 [place] % (Auto) 13.9 Eos % (Auto) 0.1 Baso % (Auto) 0.2 Immature Gran # (Auto) 0.04 H Neut # (Auto) 8.61 H Lymph # (Auto) 1.01 L [place] # (Auto) 1.57 H Eos # (Auto) 0.01 Baso # (Auto) 0.02 Ovalocytes 1+ PT INR Sodium 132 L Potassium 6.1 H* D Chloride 102 Carbon Dioxide 18 L Anion Gap 12.0 H BUN 83 H Creatinine 4.94 H* Est Cr Clr Drug Dosing 12.5 Est GFR ( Amer) 12.0 Est GFR (Non-Af Amer) 10.3 BUN/Creatinine Ratio 16.8 Glucose 128 H POC Glucose Estimat Average Glucose 137 Hemoglobin A1c 6.4 H Calcium 8.6 Magnesium 2.3 Total Bilirubin AST ALT Alkaline Phosphatase Troponin I 0.056 H* Total Protein Albumin Globulin Albumin/Globulin Ratio Lipase Urine Color Urine Appearance Urine pH Ur Specific [place] Urine Protein Urine Glucose (UA) Urine Ketones Urine Blood Urine Nitrite Urine Bilirubin Urine Urobilinogen Ur Leukocyte Esterase Urine WBC (Auto) Urine RBC (Auto) U Hyaline Cast (Auto) U Epithel Cells (Auto) Urine Bacteria (Auto) Amorphous Sediment Digoxin Blood Type Antibody Screen Crossmatch 01/13/19 01/13/19 01/13/19 05:00 06:31 10:58 WBC RBC Hgb Hct MCV MCH MCHC RDW Std Deviation RDW Coeff of Dung Plt Count MPV Immature Gran % (Auto) Neut % (Auto) Lymph % (Auto) [place] % (Auto) Eos % (Auto) Baso % (Auto) Immature Gran # (Auto) Neut # (Auto) Lymph # (Auto) [place] # (Auto) Eos # (Auto) Baso # (Auto) Ovalocytes PT INR Sodium Potassium Chloride Carbon Dioxide Anion Gap BUN Creatinine Est Cr Clr Drug Dosing Est GFR ( Amer) Est GFR (Non-Af Amer) BUN/Creatinine Ratio Glucose POC Glucose 133 H Estimat Average Glucose Hemoglobin A1c Calcium Magnesium Total Bilirubin AST ALT Alkaline Phosphatase Troponin I 0.064 H* Total Protein Albumin Globulin Albumin/Globulin Ratio Lipase Urine Color Dark Yellow Urine Appearance Turbid H Urine pH 5.0 Ur Specific [place] 1.022 Urine Protein 2+ H Urine Glucose (UA) Negative Urine Ketones Trace H Urine Blood 3+ H Urine Nitrite Negative Urine Bilirubin Negative Urine Urobilinogen Negative Ur Leukocyte Esterase 3+ H Urine WBC (Auto) >30 H Urine RBC (Auto) >30 H U Hyaline Cast (Auto) 5-10 H U Epithel Cells (Auto) >30 H Urine Bacteria (Auto) Negative Amorphous Sediment Present H Digoxin Blood Type Antibody Screen Crossmatch 01/13/19 01/13/19 10:58 11:52 WBC RBC Hgb Hct MCV MCH MCHC RDW Std Deviation RDW Coeff of Dung Plt Count MPV Immature Gran % (Auto) Neut % (Auto) Lymph % (Auto) [place] % (Auto) Eos % (Auto) Baso % (Auto) Immature Gran # (Auto) Neut # (Auto) Lymph # (Auto) [place] # (Auto) Eos # (Auto) Baso # (Auto) Ovalocytes PT INR Sodium 133 L Potassium 5.5 H Chloride 100 Carbon Dioxide 21 Anion Gap 12.0 H BUN 89 H Creatinine 5.25 H* D Est Cr Clr Drug Dosing 11.8 Est GFR ( Amer) 11.1 Est GFR (Non-Af Amer) 9.6 BUN/Creatinine Ratio 17.0 Glucose 165 H POC Glucose 187 H Estimat Average Glucose Hemoglobin A1c Calcium 9.1 Magnesium Total Bilirubin AST ALT Alkaline Phosphatase Troponin I Total Protein Albumin Globulin Albumin/Globulin Ratio Lipase Urine Color Urine Appearance Urine pH Ur Specific [place] Urine Protein Urine Glucose (UA) Urine Ketones Urine Blood Urine Nitrite Urine Bilirubin Urine Urobilinogen Ur Leukocyte Esterase Urine WBC (Auto) Urine RBC (Auto) U Hyaline Cast (Auto) U Epithel Cells (Auto) Urine Bacteria (Auto) Amorphous Sediment Digoxin Blood Type Antibody Screen Crossmatch Medications Administered Current Inpatient Medications Acetaminophen (Tylenol) 650 mg PO Q4H PRN PRN Reason: Pain or Fever Stop: 02/11/19 22:49 Last Admin: 01/13/19 03:10 Dose: 650 mg Al Hydrox/Mg Hydrox/Simethicone (Maalox) 15 ml PO Q4H PRN PRN Reason: Dyspepsia Stop: 02/11/19 22:49 Aztreonam (Aztreonam Consult Active) 1 ea N/A DAILY PRN PRN Reason: Consult Stop: 02/11/19 23:12 Carvedilol (Coreg) 6.25 mg PO BIDM [facility] Stop: 02/12/19 07:59 Last Admin: 01/13/19 07:50 Dose: 6.25 mg [facility]idogrel [facility]) [facility] Stop: 02/12/19 08:59 Last Admin: 01/13/19 07:50 Dose: 75 mg Cyanocobalamin (Vitamin B-12) 1,000 mcg [facility] Stop: 02/12/19 08:59 Last Admin: 01/13/19 07:50 Dose: 1,000 mcg Dextrose (Dextrose 50%) 25 - 50 ml IV UD PRN; Protocol PRN Reason: Hypoglycemia Protocol Stop: 02/11/19 23:03 Digoxin (Lanoxin) 0.125 mg PO Q2D@1600 [facility] Stop: 02/13/19 15:59 Ferrous Gluconate (Ferrous Gluconate) 324 [facility] Stop: 02/12/19 08:59 Last Admin: 01/13/19 07:50 Dose: 324 mg Glucagon (Glucagen) 1 mg SQ UD PRN; Protocol PRN Reason: Hypoglycemia Protocol Stop: 02/11/19 23:03 Glucose (Glucose 40%) 15 - 30 gm PO UD PRN; Protocol PRN Reason: Hypoglycemia Protocol Stop: 02/11/19 23:03 Glucose (Dex4 Glucose) 4 - 8 tabs PO UD PRN; Protocol PRN Reason: Hypoglycemia Protocol Stop: 02/11/19 23:03 Sodium Chloride (Nss 250ml) 250 mls @ 15 mls/hr IV .[id number] PRN PRN Reason: For Transfusion Stop: 02/11/19 22:49 Sodium Bicarbonate 150 meq/ (Dextrose) 1,150 mls @ 150 mls/hr IV .[id number] [facility] Stop: 01/13/19 14:09 Last Admin: 01/13/19 07:13 Dose: 150 mls/hr Aztreonam 500 mg/ Dextrose 105 mls @ 110 mls/hr IV Q8H [facility] Stop: 01/23/19 07:59 Last Infusion: 01/13/19 09:39 Dose: Infused Promethazine HCl 12.5 mg/ (Sodium Chloride) 50.5 mls @ 202 mls/hr IV NOW STA Stop: 01/13/19 12:37 Insulin Aspart (Novolog Flexpen) 0 units SC Q6 [facility] Stop: 02/12/19 05:59 Last Admin: 01/13/19 06:45 Dose: Not Given Miscellaneous (Order Awaiting Action) 1 ea N/A QS [facility] Stop: 02/12/19 00:00 Last Admin: 01/13/19 07:51 Dose: Not Given Miscellaneous (Order Awaiting Action) 1 ea N/A QS [facility] Stop: 02/12/19 07:59 Last Admin: 01/13/19 07:51 Dose: Not Given Miscellaneous (Carbohydrates For Hypoglycemia) 15 - 30 gm PO UD PRN PRN Reason: Hypoglycemia Treatment Stop: 02/11/19 23:03 Nitroglycerin (Nitrostat) 0.4 mg SL UD PRN PRN Reason: Chest Pain Stop: 02/11/19 22:49 Pantoprazole Sodium (Protonix) 40 mg PO [facility] Stop: 02/12/19 08:59 Last Admin: 01/13/19 07:50 Dose: 40 mg Rosuvastatin Calcium (Crestor) 20 mg PO [facility] Stop: 02/12/19 08:59 Last Admin: 01/13/19 07:50 Dose: 20 mg Sertraline HCl (Zoloft) 50 mg PO [facility] Stop: 02/12/19 08:59 Last Admin: 01/13/19 07:51 Dose: 50 mg _ (1) Renal failure Acute renal failure type: unspecified Chronic kidney disease stage: Renal failure chronicity: acute Qualified Code(s): N17.9 - Acute kidney failure, unspecified (2) Acute renal failure superimposed on chronic kidney disease Acute renal failure type: Chronic kidney disease stage: stage 3 (moderate) (3) Atrial fibrillation Atrial fibrillation type: unspecified Qualified Code(s): I48.91 - Unspecified atrial fibrillation
[2019-01-13] MEDS ORDERED: PROMETHAZINE HCL 12.5 MG in SODIUM CHLORIDE 0.9% 50 ML IV PRN (12:28)
--- NOTE | 2019-01-13 12:29 | Hospitalist Progress Note ---
Date of Service January 13, 2019 Assessment & Plan (1) Acute renal failure superimposed on chronic kidney disease: presented with oliguric acute renal failure, possible ATN Baseline creatinine 1.1, had recent contrast exposure a week ago for CT abdomen pelvis Creatinine worsened to 2 Presented with uremic symptoms of nausea vomiting, poor appetite and weakness, Creatinine elevated to more than 4/ hyperkalemia/poor urine output Patient was given IV fluids, started with bicarb gtt Repeat blood work showed worsening of creatinine with persistent hyperkalemia, CT abdomen pelvis shows no obstructive uropathy, nephrology consulted, appreciate input Present on Admission?: Yes (2) Hyperkalemia, diminished renal excretion: Secondary to acute renal failure, poor renal clearance Losartan discontinued, patient was started bicarb drip, He received calcium gluconate, insulin dextrose earlier With minimum to no improvement of potassium level Nephrology consulted, s/p dialysis catheter placement by RT jugular access 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 (3) Pericardial effusion: /Possible secondary to uremia/ Renal failure ECHO shows : Moderate to large pericardial effusion (was not evident on prior echo done a week ago) No evidence of pericardial tamponade Patient is getting dialysis today Cardiology following, appreciate input (4) History of renal carcinoma: Appreciate input from urology CT abdomen pelvis shows no evidence of obstructive uropathy No urological intervention needed patient Proceed for nephrology intervention for acute renal failure Outpatient follow-up with urology Scheduled for January (5) Supratherapeutic INR: History of chronic A. fib, on Coumadin Presented with supratherapeutic INR more than 9 possible secondary to poor renal clearance No evidence of active bleeding Coumadin kept on hold Given vitamin K p.o. in ER Repeat INR 4 Given 1 unit of FFP, 5 mg of p.o. vitamin K prior to dialysis catheter placement Repeat INR in a.m. (6) Atrial fibrillation: Chronic A. fib, Continue on beta-bryan Coumadin on hold for supratherapeutic INR (7) CAD (coronary artery disease): History of coronary artery disease status post PTCA No complaint of angina Elevated troponin secondary to type II VA/demand ischemia in the setting of acute renal failure, volume overload, pericardial effusion Cardiology following Echo shows no wall motion abnormality Patient is continued with all cardiac meds (8) DM type 2 (diabetes mellitus, type 2): Metformin on hold for acute renal failure acute illness (9) Ischemic cardiomyopathy: History of ischemic cardiomyopathy EF of 35-40% status post AICD placement Presents with volume overload secondary to acute renal failure Lasix and losartan kept on hold for interval receiving dialysis for electrolyte and volume management (10) CVA (cerebral vascular accident): Continue on aspirin Plavix statin kept on hold for elevated transaminase (11) Cardiac defibrillator in place: (12) Elevated LFTs: (13) Elevated lactic acid level: (14) Possible urinary tract infection: UA grossly positive, ordered for urine culture Empiric antibiotic with Azactam patient is allergic to cephalosporin Plan of care and patient status updated to pt's Daughter Sara over phone (15) Chronic anemia: History of anemia of chronic disease Hemoglobin remained 7.7 Follow H&H Coagulopathy/supratherapeutic INR reversed with vitamin K/given FFP for dialysis line placement PRBC transfusion for hemoglobin less than 7 (16) Chronic right shoulder pain: CODE STATUS: Full code DVT prophylaxis: INR elevated Disposition: Patient was living at home with , was independent in ADLs Presents with significant functional decline, PT OT evaluation will be requested When medically stable Social service consult for discharge planning Subjective Patient continues to feel very nauseous, weak and tired Very poor appetite Found sitting up on chair, daughter present at bedside Reports patient has been experiencing increased confusion, weakness tiredness, unable to eat for last 1 week [place] has minimum urine output/fariba color Patient reports of no shortness of breath, feels dizzy and lightheaded No hypoxia, in room air Physical Exam 2 Vital Signs (Past 24 Hours): Last Vital Signs Temp 36.7 C 01/13/19 07:47 Pulse 91 H 01/13/19 07:47 Resp 19 01/13/19 07:47 BP 102/62 01/13/19 07:47 Pulse Ox 92 01/13/19 07:47 Constitutional: Confusion with orientation to person only Eyes: + anicteric sclerae ENMT: Mouth: + dry oral mucous membranes Neck: trachea midline, no thyromegaly Respiratory: no respiratory distress, no labored breathing and no cough Auscultation: + rales (At base) Cardiovascular: Rate/Rhythm: + abnormal rate (Chronic A. fib) and + abnormal rhythm (Chronic A. fib) Gastrointestinal (Abdomen): Percussion/Palpation: + abdomen tender (Right upper quadrant tenderness, no rebound); no hepatomegaly and no ascites Musculoskeletal: Generalized weakness Neurologic: PERRL, EOMI, accommodation nl, no face palsy, no dysarthria No focal neurological deficit, slow to response, very tired lethargic, dozing to sleep in middle conversation _ (1) Atrial fibrillation Atrial fibrillation type: unspecified Qualified Code(s): I48.91 - Unspecified atrial fibrillation (2) Acute renal failure superimposed on chronic kidney disease Acute renal failure type: Chronic kidney disease stage: stage 3 (moderate)
[2019-01-13] MEDS ORDERED: PROMETHAZINE HCL 12.5 MG in SODIUM CHLORIDE 0.9% 50 ML IV ONE (12:45)
[2019-01-13] MEDS ORDERED: SODIUM CHLORIDE 0.9% 250 ML IV PRN (13:30)
[2019-01-13] MEDS ORDERED: PHYTONADIONE 5 MG TAB PO STA (13:34)
[2019-01-13] MEDS ORDERED: SODIUM CHLORIDE 0.9% 1000ML 1,000 ML IV PRN (15:47)
[2019-01-13] MEDS ORDERED: ONDANSETRON INJ 2 MG/ML 2 ML VIAL ONE (15:52)
[2019-01-13] MEDS ORDERED: ONDANSETRON INJ 2 MG/ML 2 ML VIAL IV STA (15:56)
--- NOTE | 2019-01-13 16:50 | XRay Report ---
XR chest 1V portable HISTORY: 78 years-old Male dialysis line right ij status post placement of a right internal jugular hemodialysis cathetera COMPARISON: Chest radiograph 01/12/2019 TECHNIQUE: Portable AP view of the chest FINDINGS: The cardiac silhouette is enlarged, unchanged. Mild pulmonary vascular congestion without overt pulmo nary edema. Calcification the thoracic aortic arch. Stable positioning of single lead left subclavian pacer/AICD. Left pleural effusion with left basilar opacities redemonstrated. No pneumothorax. Degen erative changes of the shoulders and spine. Right internal jugular dual-lumen hemodialysis catheter h as been placed, distal tip in the region of the proximal SVC. IMPRESSION: 1. Status post placement of a right internal jugular dual-lumen hemodialysis catheter, distal tip ter minating within the expected region of the proximal SVC. No postprocedural pneumothorax. 2. Cardiomegaly with pulmonary vascular congestion. 3. Small left pleural effusion with left basilar consolidation. The above report was generated using voice recognition software. It may contain grammatical, syntax o r spelling errors. Electronically signed by: Samy Lara M.D. 01/13/2019 4:49 PM
--- NOTE | 2019-01-13 17:30 | Procedure Note ---
Procedure Note Date of Service January 13, 2019 Note Hemodialysis catheter placement. The patient with advanced renal disease, evaluated by Dr. Olivares, plan for dialysis today. Family in agreement. Consent obtained from the daughter who was at the bedside, risk and benefit explained to the patient and to the daughter, agreed to the procedure. Under strict sterile field, using the ultrasound, the right IJ was identified, the skin was prepped with chlorhexidine, and the patient could not tolerate laying down in supine position, he developed nausea and vomiting. The procedure was restarted again after he become more comfortable in a recumbent position at 45 degrees, the skin also was sterilized and the whole field as well , under ultrasound guidance, the skin was injected with 5 mL of 1% lidocaine in the posterior IJ approach on the right side, using Seldinger technique, scalpel , and 1 dilator, a triple-lumen dialysis catheter was placed, all ports were flushed with saline, secured with 2 sutures, covered with surgical dressing, chest x-ray showed the tip of the catheter at the SVC junction, no pneumothorax and no immediate complication, tolerated the procedure very well. To mention, the patient cannot tolerate laying down in supine position. Thank you for the nursing staff and for PADMINI Palomares for their assistance.
[2019-01-13 17:50] LABS: INR 2.2 (0.9-1.1); Prothrombin Time 20.9 Seconds (9.0-12.0)
[2019-01-13 18:07] LABS: BUN Creatinine Ratio 15.9 (10-20); Calcium 8.8 mg/dl (8.5-10.1); Creatinine Clr Calc Pharmacy 11.7 ml/min; Est GFR (Non-African American) 9.5; Hepatitis B Surface Antibody Non-Immune; Magnesium 2.4 mg/dl (1.8-2.4)
[2019-01-13 18:18] LABS: Hepatitis B Surface Antigen Neg (Neg)
[2019-01-13 20:03] LABS: Potassium 4.6 mmol/L (3.5-5.1)
--- NOTE | 2019-01-13 20:03 | Dialysis Progress Note ---
Date of Service January 13, 2019 Assessment & Plan (1) Hyperkalemia, diminished renal excretion: -manage now w/ HD (2) Acute renal failure superimposed on chronic kidney disease: complex pt w/ baseline creatinine 1.7, 1.9 10 days ago and presenting w/ creatinine 4.7 and now hyperkalemia and new (w/in past 10 days) pericardial effusion verified on TTE (no evidence of tamponade currently) His urine sediment is contaminated and very concentrated - shows he had decreased po prior to presentation and may possibly be consistent w/ infection; he has chronic proteinuria/microhematuria. he is on losartan and metformin as OP; his digoxin level is not particularly elevated. No recent IV contrast or abtx or nsaids. likeliest cause here is ischemic atn in setting of lower bp, already poorer cardiac output, and meds; lactic acidosis w/ metformin also possible as is ( less likely) rhabdomyolysis; glomerular processes always on differential as are -f/u pending urology eval given hx of severe/chronic lower urinary tract obstruction - browning placed, no evidence of obstruction or other acute urologic issue; may need to get urology input on unchanged R renal mass<>? if site of prior ablation or other; not likely to have acute role here, however -f/u pending urine cx - on aztreonam; added blood cultures -he is relatively hypotensive w/ SBPin 90s (had been 110s prior admission)>> monitor -given subacute pericardial effusion on TTE, anuria, ongoing hyperkalemia will arrange emergent dialysis 2.5hrs today w/ up to 750 mL off as tolerated; plan another tx tomorrow as well then reassess -added CK, lactate to labs this evening -daily bmp -strict I/O (3) History of renal carcinoma: followed by urology; s/p R cryoablation w/ stable imaging Present on Admission?: Yes Subjective seen on dialysis; tolerating tx; denies current chest pain, sob. does state that had some transient shoulder/cp earlier today like that from earlier admission. bp have improved a bit on HD; no cramping or N/V Physical Exam 2 Vital Signs (Past 24 Hours): Last Vital Signs Temp 36.7 C 01/13/19 17:45 Pulse 95 H 01/13/19 19:45 Resp 18 01/13/19 16:11 BP 106/58 L 01/13/19 19:45 Pulse Ox 96 01/13/19 16:11 Constitutional: well developed and well nourished on 02nc, nad; still very tired but a bit more alert Eyes: EOM intact bilaterally ENMT: Ears: no external ear abnormality Nose: no external nose abnormality Mouth: + dry oral mucous membranes Neck: no nuchal rigidity Respiratory: normal respiratory effort; no respiratory distress and no labored breathing Auscultation: + diminished lung sounds and + crackles ( fine BL) Cardiovascular: RRR, no murmur, no edema Heart Sounds: no cardiac rub Gastrointestinal (Abdomen): Inspection/Auscultation: normal bowel sounds Percussion/Palpation: abdomen soft; abdomen nontender Musculoskeletal: hoffman Skin: no rashes, warm and dry Neurologic: hoffman, fluent speech Psychiatric: Orientation: oriented x 3 and cooperative Genitourinary: browning w/ scant dark urine Results & Data Laboratory Results none new >> lactate, ck, blood cxs sent _ (1) Acute renal failure superimposed on chronic kidney disease Acute renal failure type: Chronic kidney disease stage: stage 3 (moderate)
[2019-01-13 22:46] LABS: BUN Creatinine Ratio 14.5 (10-20); Calcium 8.7 mg/dl (8.5-10.1); Creatinine Clr Calc Pharmacy 16.9 ml/min; Est GFR (African American) 17.2; Est GFR (Non-African American) 14.8; Magnesium 2.1 mg/dl (1.8-2.4)
[2019-01-13 22:48] LABS: Potassium 3.9 mmol/L (3.5-5.1)
[2019-01-14] MEDS: ACETAMINOPHEN 325 MG TAB PO PRN (00:24)
[2019-01-14] MEDS: INSULIN ASPART 100 UNITS/ML 3 ML PEN SC SCH ×5 (05:51→21:36)
[2019-01-14 06:59] LABS: Basophils # (auto) 0.02 K/uL (0-0.2); Basophils % (auto) 0.1 %; Eosinophils # (auto) 0.07 K/uL (0-0.5); Eosinophils % (auto) 0.5 %; Hematocrit (blood only) 22.6 % (42-52); Hemoglobin 7.3 g/dL (14.0-18.0); Immature Granulocytes # (auto) 0.04 K/uL (0.00-0.02); Immature Granulocytes % (auto) 0.3 %; Lymphocytes # (auto) 0.73 K/uL (1.2-3.4); Lymphocytes % (auto) 5.3 %; Mean Corpuscular Hgb Conc 32.3 g/dL (32-36); Mean Platelet Volume 9.1 fL (7.4-10.4); Monocytes # (auto) 2.48 K/uL (0.11-0.59); Neutrophils # (auto) 10.44 K/uL (1.4-6.5); Neutrophils % (auto) 75.8 %; Platelet Count 275 K/uL (130-400); RDW Coefficient of Variation 14.1 % (11.5-14.5); RDW Standard Deviation 46.8 fL (36.4-46.3); Red Blood Count 2.51 M/uL (4.7-6.1); White Blood Count 13.78 K/uL (4.8-10.8)
[2019-01-14] MEDS ORDERED: SODIUM CHLORIDE 0.9% 1000ML 1,000 ML IV PRN (07:00)
[2019-01-14 07:22] LABS: Albumin Level 3.2 gm/dl (3.4-5.0); Calcium 8.7 mg/dl (8.5-10.1); Creatinine Clr Calc Pharmacy 14.3 ml/min; Est GFR (African American) 14.1; Est GFR (Non-African American) 12.2; INR 1.9 (0.9-1.1); Potassium 4.2 mmol/L (3.5-5.1); Prothrombin Time 18.6 Seconds (9.0-12.0)
[2019-01-14 07:23] LABS: Ovalocytes 1+
[2019-01-14 07:25] LABS: Albumin Globulin Ratio 0.8 (0.9-2); Bilirubin Direct 0.3 mg/dl (0-0.2); Bilirubin,Total 0.6 mg/dl (0.2-1); Globulin 4.2 gm/dl (2.5-4.0); Total Protein 7.4 gm/dl (6.4-8.2)
[2019-01-14] MEDS: TOVIAZ~ORDER AWAITING ACTION SCH ×2 (07:35→16:18)
[2019-01-14] MEDS: CYANOCOBALAMIN 500 MCG TABLET (VITAMIN B-12) PO SCH (08:15)
[2019-01-14] MEDS: CARVEDILOL 6.25 MG TAB PO SCH (08:16)
[2019-01-14] MEDS: FERROUS GLUCONATE 324 MG TAB PO SCH (08:16)
[2019-01-14] MEDS: CLOPIDOGREL BISULFATE 75 MG TAB PO SCH (08:16)
[2019-01-14] MEDS: AZTREONAM 500 MG in DEXTROSE 5% 100 ML IV SCH ×2 (08:17→21:32)
[2019-01-14] MEDS: PANTOprazole 40 MG TAB PO SCH (08:17)
[2019-01-14] MEDS: TESTOSTERONE 1% EXT SCH (08:17)
--- NOTE | 2019-01-14 08:30 | Hospitalist Progress Note ---
Date of Service January 14, 2019 Assessment & Plan (1) Acute renal failure superimposed on chronic kidney disease: Status post dialysis yesterday, clinically much improved post dialysis-nausea vomiting, confusion has resolved Hyperkalemia, potassium level normalized Creatinine improved~4 today Urine output remains low Appreciate nephrology input scheduled to have Dialysis today 01/13/18 presented with oliguric acute renal failure, possible ATN Baseline creatinine 1.1, had recent contrast exposure a week ago for CT abdomen pelvis Creatinine worsened to 2 Presented with uremic symptoms of nausea vomiting, poor appetite and weakness, Creatinine elevated to more than 4/ hyperkalemia/poor urine output Patient was given IV fluids, started with bicarb gtt Repeat blood work showed worsening of creatinine with persistent hyperkalemia, CT abdomen pelvis shows no obstructive uropathy, nephrology consulted, appreciate input (2) Hyperkalemia, diminished renal excretion: Resolved after dialysis potassium level normalized Low potassium diet, avoid BRIANA/ARB Getting second dialysis today, Repeat lab in afternoon after dialysis ordered Appreciate input from nephrology Continue to monitor in telemetry 01/13/2019 Secondary to acute renal failure, poor renal clearance Losartan discontinued, patient was started bicarb drip, He received calcium gluconate, insulin dextrose earlier With minimum to no improvement of potassium level Nephrology consulted, s/p dialysis catheter placement by RT jugular access By Dr Gilbert /drafter directional survey underwent dialysis today (3) Pericardial effusion: /Possible secondary to uremia/ Renal failure ECHO shows : Moderate to large pericardial effusion (was not evident on prior echo done a week ago) No evidence of pericardial tamponade Patient is getting dialysis today Cardiology following, appreciate input (4) History of renal carcinoma: Appreciate input from urology CT abdomen pelvis shows no evidence of obstructive uropathy No urological intervention needed patient Proceed for nephrology intervention for acute renal failure Outpatient follow-up with urology Scheduled for January Present on Admission?: Yes (5) Supratherapeutic INR: History of chronic A. fib, on Coumadin Presented with supratherapeutic INR more than 9 possible secondary to poor renal clearance No evidence of active bleeding Coumadin kept on hold Given vitamin K p.o. in ER Repeat INR 4 Given 1 unit of FFP, 5 mg of p.o. vitamin K prior to dialysis catheter placement Repeat INR in a.m. Present on Admission?: Yes (6) Atrial fibrillation: Chronic A. fib, Continue on beta-bryan Coumadin on hold for supratherapeutic INR (7) CAD (coronary artery disease): History of coronary artery disease status post PTCA No complaint of angina Elevated troponin secondary to type II MD/demand ischemia in the setting of acute renal failure, volume overload, pericardial effusion Cardiology following Echo shows no wall motion abnormality Patient is continued with all cardiac meds (8) DM type 2 (diabetes mellitus, type 2): Metformin on hold for acute renal failure acute illness Present on Admission?: Yes (9) Ischemic cardiomyopathy: History of ischemic cardiomyopathy EF of 35-40% status post AICD placement Presents with volume overload secondary to acute renal failure Lasix and losartan kept on hold for interval receiving dialysis for electrolyte and volume management (10) CVA (cerebral vascular accident): Continue on aspirin Plavix statin kept on hold for elevated transaminase (11) Cardiac defibrillator in place: (12) Elevated LFTs: Lab shows elevated AST ALT, which were normal on 01/12/2019 Physical exam positive for mild right upper quadrant tenderness No rebound, No nausea vomiting Elevated transaminases could be multifactorial, acute illness/uremia/passive liver congestion secondary to volume overload in acute renal failure Ordered for right upper quadrant ultrasound to rule out gallbladder disease Repeat LFTs Hold statin GI evaluation requested Present on Admission?: No (13) Elevated lactic acid level: Lactic acid level normalized this morning lab No fever chills, stable vitals Lactic acid was borderline elevated yesterday, possible secondary to acute illness doubt sepsis, pro-calcitonin Within normal limit Patient is on Azactam empirically for possible UTI Order for blood and urine culture Patient does not have any cough, Chest x-ray shows no evidence of infiltration (14) Possible urinary tract infection: UA grossly positive, ordered for urine culture Empiric antibiotic with Azactam patient is allergic to cephalosporin Plan of care and patient status updated to pt's Daughter Sara over phone (15) Chronic anemia: History of anemia of chronic disease Hemoglobin remained 7.7 Follow H&H Coagulopathy/supratherapeutic INR reversed with vitamin K/given FFP for dialysis line placement PRBC transfusion for hemoglobin less than 7 (16) Chronic right shoulder pain: Chronic right shoulder pain, no history of trauma Appears to be more musculoskeletal, has normal range of motion Order for Lidoderm patch, heating pad for symptom management X-ray of right shoulder when acute issues has resolved CODE STATUS: Full code DVT prophylaxis: INR elevated Disposition: Patient was living at home with , was independent in ADLs Presents with significant functional decline, PT OT evaluation will be requested When medically stable Social service consult for discharge planning Subjective Patient sitting up on the bed, awake and alert , had uneventful night Had dialysis yesterday evening, tolerated well Still very poor urine output, Sherri has concentrated sedimented minimum urine, Approximate urine output 50 mL in past 8 hours Finishing breakfast, No nausea, Appetite remains poor Complains of right shoulder pain, which has been chronic No fever or chills Overall clinically much improved since yesterday Physical Exam 2 Vital Signs (Past 24 Hours): Last Vital Signs Temp 36.8 C 01/14/19 06:35 Pulse 117 H 01/14/19 07:26 Resp 18 01/14/19 06:35 BP 134/74 01/14/19 06:35 Pulse Ox 98 01/14/19 06:35 Constitutional: + ill appearing; no acute distress Eyes: + anicteric sclerae ENMT: Mouth: + dry oral mucous membranes Respiratory: normal respiratory effort; no respiratory distress, no labored breathing and no cough Auscultation: lungs clear to auscultation bilaterally ; no crackles, no rales and no wheezes Gastrointestinal (Abdomen): Inspection/Auscultation: abdomen normal to inspection Percussion/Palpation: + abdomen tender (Right upper quadrant tenderness, no rebound) and abdomen soft; no hepatomegaly and no ascites Musculoskeletal: Pain/discomfort on right shoulder/posterior side, possible musculoskeletal, no limitation in range of motion or movement of right shoulder No rash noted Skin: no rashes, warm and dry Neurologic: PERRL, EOMI, accommodation nl, no face palsy, no dysarthria _ (1) Acute renal failure superimposed on chronic kidney disease Acute renal failure type: Chronic kidney disease stage: stage 3 (moderate) (2) Atrial fibrillation Atrial fibrillation type: unspecified Qualified Code(s): I48.91 - Unspecified atrial fibrillation
--- NOTE | 2019-01-14 09:04 | History & Physical Report ---
Date of Service January 14, 2019 History of Present Illness Chief Complaint: elevated lf'ts Primary Care Provider: Shade Thomas 78 yo male with a histor of cirrhosis d/w ascites in the past and sbp, prior renal cell cancer, admitted 01/12/19 and noted to have a rise in kidney function. Appears he has been hypotensive and on dialysis and initially with a supratherapeutic INR of 9.2. He has a right central line in place. No acute complaints this am - no sob, no chest pain, no belly pain, no nausea, vomiting, moving his bowels without blood noticed in them, wanting to go to dialysis. Oriented to person/place/time. Allergies Allergy/AdvReac Type Severity Reaction Status Date / Time fentanyl Allergy Severe Decreased Verified 01/12/19 19:06 oxygen saturation, low RR, unresponsive midazolam Allergy Severe Decreased Verified 01/12/19 19:06 oxygen saturation, low RR, unresponsive. codeine Allergy Unknown GI SYMPTOMS Verified 01/12/19 19:06 BRIANA Inhibitors AdvReac Mild cough, Verified 01/12/19 19:06 cefuroxime AdvReac Mild GI SYMPTOMS Verified 01/12/19 19:06 Home Medications Home Medications Medication Instructions Recorded Confirmed Type TESTOSTERONE GEL 1 applic TOPICAL QAM #0 10/12/17 01/12/19 History carvedilol 6.25 mg PO BIDM 08/16/18 01/12/19 History clopidogrel [Plavix] 75 mg PO QAM 08/16/18 01/12/19 History coenzyme Q10 [Co Q-10] 10 mg PO QAM 08/16/18 01/12/19 History cyanocobalamin (vitamin B-12) 1,000 mcg PO QAM 08/16/18 01/12/19 History digoxin 0.125 mg PO Q2D 08/16/18 01/12/19 History ferrous gluconate 324 mg PO QAM 08/16/18 01/12/19 History furosemide 60 mg PO QAM 08/16/18 01/12/19 History losartan 25 mg PO QAM 08/16/18 01/12/19 History metformin 1,000 mg PO QAM 08/16/18 01/12/19 History multivitamin [Multiple Vitamins] 1 tab PO QAM 08/16/18 01/12/19 History nitroglycerin [Nitrostat] 0.4 mg SUBLINGUAL UD PRN 08/16/18 01/12/19 History pantoprazole [Protonix] 40 mg PO QAM 08/16/18 01/12/19 History rosuvastatin [Crestor] 20 mg PO QAM 08/16/18 01/12/19 History sertraline 50 mg PO QAM 08/16/18 01/12/19 History warfarin [Coumadin] 5 mg PO 5XWK 08/16/18 01/12/19 History warfarin [Coumadin] 7.5 mg PO 2XWK 08/16/18 01/12/19 History fesoterodine [Toviaz] 8 mg PO DAILY 01/03/19 01/12/19 History mirabegron [Myrbetriq] 25 mg PO DAILY 01/03/19 01/12/19 History Past Med/Surg History Medical History Depression (Chronic) HTN (hypertension) (Chronic) History of renal carcinoma (Chronic) CKD (chronic kidney disease), stage III (Chronic) Chronic systolic heart failure (Chronic) Chronic anemia (Chronic) Atrial fibrillation (Chronic) CAD (coronary artery disease) (Chronic) "2005 - PCI to LAD cath 2011 - no significant obstructive disease" DM type 2 (diabetes mellitus, type 2) (Chronic) Ischemic cardiomyopathy (Chronic) "echo 08/2015 - EF 25-30%, moderate tricuspid regurgitation" CVA (cerebral vascular accident) (Chronic) Squamous cell carcinoma (Chronic) Basal cell carcinoma (Chronic) V tach (Chronic) "s/p AICD placement" Cardiac defibrillator in place (Chronic) Surgical History History of cataract surgery (Chronic) History of cardiac catheterization (Chronic) History of prior ablation treatment (Chronic) CT guided tissue ablation R kidney Family History Other CAD (coronary artery disease) Diabetes Stomach cancer Social History marital status: Current Living Situation: Spouse Other Information That Helps Us Care for You: No Feels Safe at Home: Yes Safety Concerns: Feels Safe At This Time Smoking Status: Never smoker Do You Dip or Chew Tobacco: No Second Hand Exposure: No Tobacco Cessation Education Requested by Patient: No Hx Alcohol Use: No Hx Substance Use: No Beliefs That Will Affect Care: None Communication Ability: Unable Review of Systems All systems reviewed & are unremarkable except as noted in HPI & below Physical Exam 2 Vital Signs (Past 24 Hours): Last Vital Signs Temp 36.8 C 01/14/19 06:35 Pulse 117 H 01/14/19 07:26 Resp 18 01/14/19 06:35 BP 134/74 01/14/19 06:35 Pulse Ox 98 01/14/19 06:35 Physical Exam: NAD, right IJ in place Eyes: PERRL, conjunctivae normal, anicteric sclerae Respiratory: normal respiratory effort, lungs clear to auscultation Cardiovascular: RRR, no murmur, no edema Gastrointestinal (Abdomen): normal bowel sounds, soft, nontender, no hepatosplenomegaly Results & Data Laboratory Results WBC 13.8/Hgb 7.2/Hct 22.6/Plt 275 INR 1.9 NA 135/K 4.2/CL 97/Co2 27/BUN 50/Cr 4.3 AST 422 ALT 299 TB 0.6 DB 0.3 Alb 3.2 Supervising Physician Co-Signing Physician Notes Suspect he has a mild component of acute liver injury from hypoperfusion to the liver. This will likely improve with continued efforts to maintain his bp in a normal range. His lft injury is primarily a hepatocellular injury to the liver. Would obtain abd talya with doppler for completeness. Attempts to maintain adequate perfusion to his liver. No signs of acute liver failure on chronic liver disease- confusion or elevated INR, if this occurs, would consider transfer to a tertiary level center. Would trend daily lft's, check meld labs (cr, TB, INR, Na) Would do infectious workup if not already done for elevated wbc count and treat accordingly given he is cirrhotic.
[2019-01-14] MEDS ORDERED: VANCOMYCIN CONSULT ACTIVE PRN ×2 (09:49)
[2019-01-14] MEDS ORDERED: VANCOMYCIN HCL 500 MG in SODIUM CHLORIDE 0.9% 250 ML IV SCH (10:00)
--- NOTE | 2019-01-14 12:06 | Pharmacy Report ---
Pharmacy Abx Initial Consult - Date of Service January 14, 2019 - Pharmacy Dosing Scope Date of Consult: 01-14 Consultation requested by: Dr. Neil Pharmacy is consulted to initiate vancomycin dosing therapy, order appropriate labs and adjust drug dose/frequency. - Subjective The patient is a 78 year old M admitted on 01/12/19 21:57. - Objective Height: 5 ft 10 in Weight: 82.3 kg Lab Results (24hrs): Laboratory Tests (24 Hours) 01/14/19 01/14/19 01/14/19 06:41 06:41 06:41 WBC 13.78 H Neut # (Auto) 10.44 H Creatinine 4.32 H D Est Cr Clr Drug Dosing 14.3 Total Creatine Kinase Procalcitonin 0.63 H 01/13/19 01/13/19 01/13/19 22:00 22:00 17:27 WBC Neut # (Auto) Creatinine 3.66 H D Est Cr Clr Drug Dosing 16.9 Total Creatine Kinase Procalcitonin 0.55 H 0.43 01/13/19 17:27 WBC Neut # (Auto) Creatinine 5.30 H* Est Cr Clr Drug Dosing 11.7 Total Creatine Kinase 53 Procalcitonin Micro Results: 01/13/19 18:45 Blood Culture - Pending Blood 01/13/19 18:45 Blood Culture - Pending Blood - Assessment & Plan Assessment/Plan: Patient started on azactam 01/12 for possible UTI (not consult). Vancomycin now added today likely due to Gm+cocci in urine. Blood cultures currently pending at this time. Patient currently receiving dialysis due to TOBIN on admission. Vancomycin: * Will give vancomycin 1250 mg (~15 mg/kg) iv x 1 for after dialysis today * Estimated kinetics: t1/2 >24 hrs, ke~0.016 hr-1, CrCl ~14 ml/min; Scr slowly improving since admission - today at 4.3 mg/dL * Unclear to plan with hemodialysis schedule at this time, received HD yesterday and also today - ideally like to order vancomycin random level prior to next dialysis session. * Will order vancomycin random level tomorrow am to assist with further dosing ( in case dialysis also ordered) * Will continue to follow cultures for possible deescalation - of note patient with allergy listed only as GI symptoms to cefuroxime, could consider deescalation to penicillin/cephalosporin once cultures return Pharmacy will continue to follow and will adjust dose/frequency as necessary. Thank you.
[2019-01-14] MEDS: LIDOCAINE 5% 1 PATCH TD SCH (12:36)
[2019-01-14] MEDS ORDERED: VANCOMYCIN HCL 1,250 MG in SODIUM CHLORIDE 0.9% 250 ML IV SCH (14:00)
--- NOTE | 2019-01-14 15:41 | Cardiology Progress Note ---
Date of Service January 14, 2019 Assessment & Plan (1) Pericardial effusion: (2) Acute renal failure superimposed on chronic kidney disease: Patient presented with acute worsening renal function, creatinine 01/13/19 at 5.25, improved to 4.32 this morning. Volume overloaded on admission. Echocardiogram images performed yesterday 01/13/19 reviewed independently revealing a moderate to large circumferential pericardial effusion with no hugh tamponade physiology. Left pleural effusion was also noted. The patient's blood pressure is down 20 points compared to his prior admission. He does have a history of an ischemic cardiomyopathy with mild LV systolic dysfunction on most recent echocardiogram performed 10 days ago at which time he had no pericardial effusion. He has a history of an AICD. I had a discussion with his family at the bedside. At this point I favor proceeding with conservative observation. The patient is in no acute distress from a respiratory status standpoint at present and although his blood pressure is below his typical baseline, it is not emergently low. I am going to repeat an echocardiogram tomorrow. I am optimistic that pericardial effusion will hopefully improve with supportive care such as hemodialysis. Patient is chronically ill, and frail, would like to avoid more invasive steps such as pericardiocentesis or pericardial window if at all possible. Digoxin is on hold due to his acute kidney injury. Coumadin is on hold. I have placed a temporary hold on his carvedilol as well. I believe he is in chronic atrial fibrillation, and his rate is reasonable at present, will reinitiate beta-bryan as tolerated. Subjective Chief Complaint: follow up pericardial effusion Subjective: Patient seen in room 2371 having had hemodialysis earlier today and yesterday. He is tired and washed out but otherwise feeling okay. Per description of his family, his reading is much improved today compared to yesterday. Telemetry reveals underlying atrial fibrillation with demand ventricular pacing Physical Exam 2 Vital Signs (Past 24 Hours): Last Vital Signs Temp 36.3 C L 01/14/19 12:27 Pulse 81 01/14/19 12:27 Resp 19 01/14/19 12:27 BP 97/62 L 01/14/19 12:27 Pulse Ox 98 01/14/19 12:27 Physical Exam: General: Chronically ill in appearance Eyes: conjunctiva are pink and non-injected, sclera clear Neck: Elevated jugular venous pulse Chest: normal shape and normal respiratory effort Lungs: decreased breath sounds bilaterally at the bases Cardiac Exam: -Irregular rhythm, no murmurs rubs or gallops Abdomen: abdomen soft, non-tender, no abnormal masses and no hepatosplenomegaly Extremities: Trace to 1+ lower extremity edema Neuro: Arousable, slightly somnolent Results & Data Laboratory Results Cardiac Enzymes 01/14/19 Range/Units 06:41 AST 422 H (15-37) U/L Coagulation 01/13/19 01/14/19 Range/Units 17:26 06:41 PT 20.9 H 18.6 H (9.0-12.0) Seconds CBC 01/14/19 Range/Units 06:41 WBC 13.78 H (4.8-10.8) K/uL RBC 2.51 L (4.7-6.1) M/uL Hgb 7.3 L (14.0-18.0) g/dL Hct 22.6 L (42-52) % Plt Count 275 (130-400) K/uL Neut # (Auto) 10.44 H (1.4-6.5) K/uL Lymph # (Auto) 0.73 L (1.2-3.4) K/uL [place] # (Auto) 2.48 H (0.11-0.59) K/uL Eos # (Auto) 0.07 (0-0.5) K/uL Baso # (Auto) 0.02 (0-0.2) K/uL Comprehensive Metabolic Panel 01/13/19 01/13/19 01/14/19 Range/Units 17:27 22:00 06:41 Sodium 133 L 135 L 135 L (136-145) mmol/L Potassium 4.6 D 3.9 D 4.2 (3.5-5.1) mmol/L Chloride 99 98 97 L (98-107) mmol/L Carbon Dioxide 24 28 27 (21-32) mmol/L BUN 84 H 53 H 56 H (7-18) mg/dl Creatinine 5.30 H* 3.66 H D 4.32 H D (0.6-1.4) mg/dl Glucose 148 H 101 H 113 H (70-99) mg/dl Calcium 8.8 8.7 8.7 (8.5-10.1) mg/dl Direct Bilirubin 0.3 H (0-0.2) mg/dl AST 422 H (15-37) U/L ALT 299 H (12-78) U/L Alkaline Phosphatase 109 (45-117) U/L Total Protein 7.4 (6.4-8.2) gm/dl Albumin 3.2 L (3.4-5.0) gm/dl Intake and Output 01/14/19 01/14/19 01/14/19 06:59 14:59 22:59 Intake Total 255 / 255 225 / 225 Output Total Balance 205 / 205 200 / 200 Intake: IV 105 / 105 105 / 105 Azactam 500 mg In D5 100 ml @ 105 / 105 105 / 105 110 mls/hr IV Q8H [facility] Rx#: [id number] Oral 150 / 150 120 / 120 Output: Urine Amount (Catheter) Polanco/Indwelling Other: Hemodialysis Ultrafiltration 500 Amount Weight 79.3 kg 82.3 kg Patient Weight 01/15/19 06:59 Weight 82.3 kg _ (1) Acute renal failure superimposed on chronic kidney disease Acute renal failure type: Chronic kidney disease stage: stage 3 (moderate)
[2019-01-14] MEDS ORDERED: DIGOXIN 0.125 MG TAB PO SCH (16:00)
--- NOTE | 2019-01-14 17:01 | Ultrasound Report ---
US liver HISTORY: 78 years-old Male elevated transaminase acutely elevated LFTs COMPARISON: CT abdomen and pelvis 01/12/2019 TECHNIQUE: Multiple real-time sonographic images of the abdominal right upper quadrant were obtained assessing grayscale appearance and color flow FINDINGS: Pancreas is mostly obscured by bowel gas. Cirrhotic liver disease with diffusely heterogeneous appearance of the liver. Trace. Hepatic ascites. No focal hepatic mass lesion identified. Gallbladder wall is thickened, 5 mm. Sonogr aphic Tovar sign reported as negative. No cholelithiasis identified. Common bile duct is normal, 5 m m. Imaged right kidney is unremarkable without hydronephrosis. There is a described right renal lesion n ot seen by ultrasound. IMPRESSION: 1. Cirrhotic morphology of the liver with trace perihepatic ascites. 2. Nonspecific gallbladder wall thickening without cholelithiasis, likely secondary to underlying cir rhosis. 3. No biliary ductal dilation. The above report was generated using voice recognition software. It may contain grammatical, syntax o r spelling errors. Electronically signed by: Samy Lara M.D. 01/14/2019 5:00 PM
[2019-01-14 17:13] LABS: Albumin Globulin Ratio 0.7 (0.9-2); BUN Creatinine Ratio 11.9 (10-20); Bilirubin Direct 0.3 mg/dl (0-0.2); Bilirubin,Total 0.7 mg/dl (0.2-1); Calcium 8.1 mg/dl (8.5-10.1); Creatinine Clr Calc Pharmacy 20.3 ml/min; Est GFR (African American) 21.5; Est GFR (Non-African American) 18.5; Globulin 4.2 gm/dl (2.5-4.0); Total Protein 7.2 gm/dl (6.4-8.2)
[2019-01-14] MEDS ORDERED: PROCHLORPERAZINE 10 MG in SYRINGE 8 ML IV SCH (19:40)
[2019-01-14] MEDS ORDERED: Nursing to Pharmacy Communication ONE (23:37)
[2019-01-15 06:36] LABS: Basophils # (auto) 0.03 K/uL (0-0.2); Basophils % (auto) 0.2 %; Eosinophils # (auto) 0.12 K/uL (0-0.5); Eosinophils % (auto) 0.8 %; Hematocrit (blood only) 22.3 % (42-52); Immature Granulocytes % (auto) 0.7 %; Lymphocytes # (auto) 0.93 K/uL (1.2-3.4); Lymphocytes % (auto) 6.5 %; Mean Corpuscular Hgb Conc 31.4 g/dL (32-36); Mean Corpuscular Volume 91.8 fL (80-100); Mean Platelet Volume 8.7 fL (7.4-10.4); Monocytes # (auto) 2.66 K/uL (0.11-0.59); Monocytes % (auto) 18.7 %; Neutrophils # (auto) 10.36 K/uL (1.4-6.5); Neutrophils % (auto) 73.1 %; Platelet Count 271 K/uL (130-400); RDW Coefficient of Variation 14.4 % (11.5-14.5); RDW Standard Deviation 48.1 fL (36.4-46.3); Red Blood Count 2.43 M/uL (4.7-6.1)
[2019-01-15 06:45] LABS: INR 1.8 (0.9-1.1); Prothrombin Time 17.9 Seconds (9.0-12.0)
[2019-01-15 07:21] LABS: Ovalocytes 1+
[2019-01-15 07:29] LABS: Albumin Level 3.2 gm/dl (3.4-5.0); BUN Creatinine Ratio 11.4 (10-20); Bilirubin Direct 0.3 mg/dl (0-0.2); Calcium 8.8 mg/dl (8.5-10.1); Creatinine Clr Calc Pharmacy 15.2 ml/min; Est GFR (African American) 15.1; Est GFR (Non-African American) 13.1
[2019-01-15 07:31] LABS: Albumin Globulin Ratio 0.7 (0.9-2); Bilirubin,Total 0.6 mg/dl (0.2-1); Globulin 4.4 gm/dl (2.5-4.0); Total Protein 7.6 gm/dl (6.4-8.2)
[2019-01-15] MEDS: FERROUS GLUCONATE 324 MG TAB PO SCH (08:21)
[2019-01-15] MEDS: CLOPIDOGREL BISULFATE 75 MG TAB PO SCH (08:21)
[2019-01-15] MEDS: TESTOSTERONE 1% EXT SCH (08:22)
[2019-01-15] MEDS: LIDOCAINE 5% 1 PATCH TD SCH (08:22)
[2019-01-15] MEDS: CYANOCOBALAMIN 500 MCG TABLET (VITAMIN B-12) PO SCH (08:22)
[2019-01-15] MEDS: INSULIN ASPART 100 UNITS/ML 3 ML PEN SC SCH ×4 (08:23→20:33)
[2019-01-15] MEDS: AZTREONAM 500 MG in DEXTROSE 5% 100 ML IV SCH (08:32)
--- NOTE | 2019-01-15 09:28 | Cardiology Progress Note ---
Date of Service January 15, 2019 Assessment & Plan (1) Pericardial effusion: Echocardiogram performed this morning reveals ongoing large pericardial effusion. The maximum diameter of the effusion adjacent to the posterior wall is 3 cm. The images of serial echocardiogram studies dating back to 2016 were reviewed. The patient has a long-standing history of severe right ventricular chamber enlargement and RV hypokinesis, right atrial enlargement, and at least moderate pulmonary hypertension in the setting of severe tricuspid valve regurgitation. As noted, with findings of elevated right-sided cardiac pressures mask the 2D and Doppler criteria used to assess for tamponade physiology by echocardiogram. For example he is noted to have a dilated and plethoric inferior vena cava on the present study with diameter in the range of 3 cm, however this is unchanged compared to the prior study on 01/03/19, with no pericardial effusion was present. Per review of the cardiology consultation performed on 01/03/19, the patient presented with chest discomfort which was felt to be atypical and characteristic of angina. There was however a characteristic of worsening discomfort on deep inspiration. His EKG at that time as well as at present revealed no definite findings to suggest pericarditis, however his EKG has findings of atrial fibrillation and right bundle branch block. I would speculate that perhaps the patient at the symptoms of pericarditis issue starting at that time, perhaps a viral pericarditis. Which have not manifested itself on echocardiogram yet. He did presented 10 days later with dramatic shortness of breath, fatigue, was found to have acute renal insufficiency and profound hyperkalemia. His erythrocyte sedimentation rate is mildly elevated today at 32, C-reactive protein is elevated at 12.2. These have to be interpreted with the thought mind that he has an indwelling dialysis catheter and he has been through a lot. But at this point I think it is prudent to treat him as if he has an inflammatory pericardial effusion. His blood pressure is stable most recent reading of 114/68, but this is significantly lower than his typical baseline historically on multiple hospital stays. He has not a candidate for nonsteroidal anti-inflammatory therapies due to his kidney insufficiency. We will proceed with IV Solu-Medrol with plans to convert to oral prednisone after several doses. Also proceed with IV albumin with hopes of increasing his oncotic pressure and hopefully that will help with the effusion as well. Given his generalized frailty, would like to avoid pericardiocentesis or pericardial window if at all possible. At this point, is difficult to determine if he has a pericardial effusion as a result of uremia in the setting of new renal insufficiency, or if his cardiac output has been compromised with resultant acute tubular necrosis. As noted, he has low right ventricular output chronically. I see no emergent need for pericardial drainage and will therefore proceed with a trial of ongoing conservative therapy. We will also proceed with transfusion for goal hemoglobin greater than 8, and will continue renal replacement therapy as needed to control his volume and electrolytes. Will plan for repeat echocardiogram in 24-48 hours. His Coumadin is to remain on hold. At present pending concerns of possible bleeding complication. His INR is 1.8 today. Case was discussed by phone with Dr. Smith of nephrology and Dr Neil. Subjective Chief complaint: Follow-up shortness of breath, pericardial effusion Subjective: Patient was sitting in the bedside chair. He notes that he feels better when he is sitting up. He underwent hemodialysis yesterday with 500 mL of ultrafiltration noted per the hemodialysis procedure note. Telemetry overnight revealed ongoing atrial fibrillation with ventricular rates in the 90 be per minute range for the most part and occasional PVCs An echocardiogram was performed this morning and reviewed independently by the undersigned with findings as noted below. Physical Exam 2 Vital Signs (Past 24 Hours): Last Vital Signs Temp 36.7 C 01/15/19 07:48 Pulse 107 H 01/15/19 08:30 Resp 19 01/15/19 07:48 BP 136/78 01/15/19 07:48 Pulse Ox 93 01/15/19 07:48 Physical Exam: General: Chronically ill in appearance Eyes: conjunctiva are pink and non-injected, sclera clear Neck: normal jugular venous pulse, sitting at 90 degrees Chest: normal shape and normal respiratory effort Lungs: Mildly decreased breath sounds at the bases Cardiac Exam: -Irregular rhythm, I/6 systolic murmur Abdomen: abdomen soft, non-tender, no abnormal masses and no hepatosplenomegaly Extremities: no edema and no cyanosis Neuro:awake, coversant, follows commands, no focal motor deficits Results & Data Diagnostic Findings Summary of echocardiogram performed today, 01/15/19 and reviewed independently: A focussed study was performed per provider order for the reassessment of pericardial effusion. Limited focused views were obtained. There is a large circumferential pericardial effusion. The right ventricle is severely dilated. The right ventricular systolic function is severely reduced. Dilated inferior vena cava with reduced collapsability with sniff indicates an elevated right atrial pressure of 15 mmHg There is severe tricuspid regurgitation. Moderate pulmonary hypertension is present. The pulmonary artery systolic pressure is calculated to be 50 mm Hg, assuming a right atrial pressure of 15 mm Hg. The septal wall motion is abnormal due to right ventricular pressure / volume overload. Otherwise mild global left ventricular hypokinesis is present. The qualitative LV ejection fraction=45% The 2D and Doppler echocardigraphic criteria of tamponade physiology is limited in the setting of chronic right ventricular chamber enlargment and pulmonary hypertension. Based in inspiratory variation of the mitral valve Doppler , pre-tamponade physiology is present. Comparted to the images of the prior study dated 01/13/19, the effusion is unchanged. The previously noted left pleural effusion has decreased in size and is mild in size on the present study. In review of mutiple past studies, patient has a prior history of severe right ventricular chamber dilatation and right ventricular systolic dysfunction dateing back to the study performed in December. The pericardial effusion was not present on the recent study dated 01/03/19 however the inferior vena cava diameter was dilated at that time , unchanged compared to the present study, and therefore as noted , this finding is not helpful in determining tapmonade physiology.
--- NOTE | 2019-01-15 09:33 | Gastroenterology Progress Note ---
Date of Service January 15, 2019 Supervising Physician Co-Signing Physician Notes 78 yo male with a history of chf, pericardial effusion, dialysis dependent, GI consulted on 01/14/19 for transaminitis that was a hepatocellular pattern. He has been intermittently hypotensive. Would trend lft's - none checked for today. Likely this will improve with improved perfusion to the liver. If signs of altered mental status or elevation in INR, consider addition of NAC. Subjective No acute complaints Quite somnolent this morning on examination Physical Exam 2 Vital Signs (Past 24 Hours): Last Vital Signs Temp 36.7 C 01/15/19 07:48 Pulse 107 H 01/15/19 08:30 Resp 19 01/15/19 07:48 BP 136/78 01/15/19 07:48 Pulse Ox 93 01/15/19 07:48 Physical Exam: NAD Eyes: PERRL, conjunctivae normal, anicteric sclerae Cardiovascular: RRR, no murmur, no edema Gastrointestinal (Abdomen): normal bowel sounds, soft, nontender, no hepatosplenomegaly Results & Data Laboratory Results No new labs
[2019-01-15] MEDS ORDERED: SODIUM CHLORIDE 0.9% 250 ML IV PRN (09:36)
[2019-01-15] MEDS: ALBUMIN 25% 50 ML IV SCH ×2 (10:14→18:06)
[2019-01-15] MEDS: methylPREDNISolone 40 MG in SYRINGE 0 ML IV SCH ×2 (10:14→18:05)
[2019-01-15] MEDS ORDERED: VANCOMYCIN HCL 1,000 MG in SODIUM CHLORIDE 0.9% 250 ML IV ONE (11:00)
[2019-01-15] MEDS: HEPARIN SOD 5,000 UNIT/0.5 ML VIAL SQ SCH ×3 (11:10→20:38)
[2019-01-15] MEDS: PANTOprazole 40 MG in SYRINGE 0 ML IV SCH (11:10)
[2019-01-15] MEDS ORDERED: [UNRECOGNIZED DRUG - OTHER] PRN (13:10)
--- NOTE | 2019-01-15 14:38 | Hospitalist Progress Note ---
Date of Service January 15, 2019 Assessment & Plan (1) Acute renal failure superimposed on chronic kidney disease: Patient continued to require dialysis, next treatment scheduled for tomorrow Urine output remains poor presented with oliguric acute renal failure, possible ATN Baseline creatinine 1.1, had recent contrast exposure a week ago for CT abdomen pelvis Creatinine worsened to 2 Presented with uremic symptoms of nausea vomiting, poor appetite and weakness, Creatinine elevated to more than 4/ hyperkalemia/poor urine output No improvement with IV fluids, bicarb drip/required emergent dialysis Repeat blood work showed worsening of creatinine with persistent hyperkalemia, CT abdomen pelvis shows no obstructive uropathy, nephrology consulted, appreciate input (2) Hyperkalemia, diminished renal excretion: Potassium level normal after dialysis Secondary to acute renal failure, poor renal clearance Losartan discontinued, patient was started bicarb drip, He received calcium gluconate, insulin dextrose earlier With minimum to no improvement of potassium level Nephrology consulted, s/p dialysis catheter placement by RT jugular access By Dr Gilbert /medical chemist (3) Pericardial effusion: /Possible secondary to uremia/ Renal failure ECHO shows : Moderate to large pericardial effusion (was not evident on prior echo done a week ago) No evidence of pericardial tamponade Patient is continued with dialysis Cardiology following, appreciate input (4) History of renal carcinoma: Appreciate input from urology CT abdomen pelvis shows no evidence of obstructive uropathy No urological intervention needed patient Proceed for nephrology intervention for acute renal failure Outpatient follow-up with urology Scheduled for January (5) Supratherapeutic INR: History of chronic A. fib, on Coumadin Presented with supratherapeutic INR more than 9 possible secondary to poor renal clearance No evidence of active bleeding Coumadin kept on hold Given vitamin K p.o. in ER Repeat INR 4 Given 1 unit of FFP, 5 mg of p.o. vitamin K prior to dialysis catheter placement INR remains low subtherapeutic, started on subcu heparin Continue to hold Coumadin, in case patient needs placement of permanent dialysis catheter (6) Atrial fibrillation: Chronic A. fib, Continue on beta-bryan Coumadin was on hold for supratherapeutic INR (7) CAD (coronary artery disease): History of coronary artery disease status post PTCA No complaint of angina Elevated troponin secondary to type II TN/demand ischemia in the setting of acute renal failure, volume overload, pericardial effusion Cardiology following Echo shows no wall motion abnormality severe ischemic cardiomyopathy, unchanged from prior, with circumferential pericardial effusion new since last echo on Patient is continued with all cardiac meds (8) DM type 2 (diabetes mellitus, type 2): Metformin on hold for acute renal failure acute illness Insulin sliding scale, pharmacy follow-up for glycemic management (9) Ischemic cardiomyopathy: History of ischemic cardiomyopathy EF of 35-40% status post AICD placement Presents with volume overload secondary to acute renal failure Lasix and losartan kept on hold for interval receiving dialysis for electrolyte and volume management (10) CVA (cerebral vascular accident): Continue on aspirin Plavix statin kept on hold for elevated transaminase (11) Cardiac defibrillator in place: (12) Elevated LFTs: Secondary to passive hepatic congestion due to decompensated heart failure severe ischemic cardiomyopathy in the setting of oliguric renal failure, renal failure, and appreciate input from gastroenterology, no intervention needed, continue to follow trend Lab shows elevated AST ALT, which were normal on 01/12/2019 Physical exam positive for mild right upper quadrant tenderness No rebound, No nausea vomiting Elevated transaminases could be multifactorial, acute illness/uremia/passive liver congestion secondary to volume overload in acute renal failure right upper quadrant ultrasound shows no gallbladder disease Repeat LFTs Hold statin GI evaluation appreciated (13) Elevated lactic acid level: Lactic acid level normalized No fever chills, stable vitals Lactic acid was borderline elevated yesterday, possible secondary to acute illness /hypoperfusion doubt sepsis, pro-calcitonin Within normal limit Patient is on Azactam empirically for possible UTI Order for blood and urine culture Patient does not have any cough, Chest x-ray shows no evidence of infiltration (14) Possible urinary tract infection: Urine culture positive for gram-positive cocci, enterococcus avium - pansensitive antibiotic changed to ampicillin Plan of care and patient status updated to pt's Daughter Sara over phone (15) Chronic anemia: History of anemia of chronic disease Worsening of anemia in the setting of acute renal failure hemoglobin 7 today Will be transfused 1 unit of PRBC tomorrow with dialysis Blood transfusion consent obtained from patient, reason for blood transfusion explained to patient and family members (16) Chronic right shoulder pain: Symptom improved with Lidoderm patch, heating pad Possible musculoskeletal, no limitation on range of motion CODE STATUS: Full code DVT prophylaxis: INR elevated Disposition: Patient was living at home with , was independent in ADLs Presents with significant functional decline, PT OT evaluation will be requested When medically stable Social service consult for discharge planning Subjective No complaint of nausea or vomiting, awake and alert, no confusion, denies of any shortness of breath Urine output remains extremely poor oliguric Plan for dialysis tomorrow Physical Exam 2 Vital Signs (Past 24 Hours): Last Vital Signs Temp 36.7 C 01/15/19 10:58 Pulse 105 H 01/15/19 10:58 Resp 18 01/15/19 10:58 BP 114/68 01/15/19 10:58 Pulse Ox 94 01/15/19 10:58 Constitutional: + ill appearing; no acute distress Eyes: + anicteric sclerae Neck: trachea midline, no thyromegaly Respiratory: no respiratory distress, no labored breathing and no cough Auscultation: + rales (At base) Cardiovascular: Rate/Rhythm: + abnormal rhythm (Chronic A. fib) Gastrointestinal (Abdomen): Inspection/Auscultation: abdomen normal to inspection Percussion/Palpation: no hepatomegaly and no ascites Skin: no rashes, warm and dry Neurologic: PERRL, EOMI, accommodation nl, no face palsy, no dysarthria + confused _ (1) Atrial fibrillation Atrial fibrillation type: unspecified Qualified Code(s): I48.91 - Unspecified atrial fibrillation (2) Acute renal failure superimposed on chronic kidney disease Acute renal failure type: Chronic kidney disease stage: stage 3 (moderate)
--- NOTE | 2019-01-15 18:42 | Progress Note ---
DATE: 01/15/2019 SUBJECTIVE: Overnight, he had dialysis yesterday and 500 mL of fluid was removed. He is very oliguric with only 5 mL of urine in a 24-hour time period. However, he denies having any symptoms, although his breathing does seem slightly labored. PHYSICAL EXAMINATION: VITAL SIGNS: Blood pressure most recently 136/64, 92% on 2 L nasal cannula. HEENT: Mucous membrane is moist. NECK: Supple. Jugular venous distention is present. CHEST: Bilateral decreased breath sounds, occasional crackles. CARDIOVASCULAR: S1 and S2. Irregular, systolic murmur heard. ABDOMEN: Soft, nontender. EXTREMITIES: Shows 1+ edema. LABORATORY: Blood work from this morning show sodium 134, potassium 4.0, chloride 96, bicarbonate 26, creatinine 4.07, BUN 47, albumin 3.2. ASSESSMENT AND PLAN: A 78-year-old male admitted for acute kidney injury, elevated troponin, new onset large pericardial effusion. 1. Acute renal failure. He is currently anuric at this time with only 5 mL of urine. He will need dialysis again and will be doing it tomorrow. His hemoglobin is very low and most likely will give blood transfusion during dialysis. Given that his renal function was barely abnormal just few weeks ago, it is very, very unusual to have uremic pericardial effusion in such a short period of time. 2 Pericardial effusion. Defer to cardiology. He has been started on Solu-Medrol and albumin to help with the pericardial effusion. For dialysis tomorrow, we will do 3 hours on a 2K bath and will try to take 1 kg of fluid. We will not be giving heparin. Case was discussed with cardiology as well as hospitalist service.
[2019-01-15] MEDS ORDERED: AMOXICILLIN 250 MG CAP PO SCH (21:00)
[2019-01-16] MEDS: ALBUMIN 25% 50 ML IV SCH ×2 (02:34→09:23)
[2019-01-16] MEDS: methylPREDNISolone 40 MG in SYRINGE 0 ML IV SCH (02:34)
[2019-01-16] MEDS: HEPARIN SOD 5,000 UNIT/0.5 ML VIAL SQ SCH ×3 (06:38→20:51)
[2019-01-16] MEDS ORDERED: SODIUM CHLORIDE 0.9% 250 ML IV PRN ×2 (06:52→07:48)
[2019-01-16] MEDS ORDERED: ACETAMINOPHEN 325 MG TAB PO STA (06:52)
[2019-01-16 06:54] LABS: Prothrombin Time 19.5 Seconds (9.0-12.0)
[2019-01-16 07:16] LABS: Hematocrit (blood only) 20.4 % (42-52); Hemoglobin 6.6 g/dL (14.0-18.0); Mean Corpuscular Hgb Conc 32.4 g/dL (32-36); Mean Corpuscular Volume 91.1 fL (80-100); Mean Platelet Volume 8.5 fL (7.4-10.4); Nucleated RBC # (auto) 0.04 K/uL (0-0); Nucleated RBC % (auto) 0.2 %; Platelet Count 240 K/uL (130-400); RDW Coefficient of Variation 14.5 % (11.5-14.5); RDW Standard Deviation 47.9 fL (36.4-46.3); Red Blood Count 2.24 M/uL (4.7-6.1); White Blood Count 15.55 K/uL (4.8-10.8)
[2019-01-16 07:24] LABS: Basophils # (auto) 0.01 K/uL (0-0.2); Basophils % (auto) 0.1 %; Immature Granulocytes # (auto) 0.07 K/uL (0.00-0.02); Immature Granulocytes % (auto) 0.5 %; Lymphocytes # (auto) 0.48 K/uL (1.2-3.4); Lymphocytes % (auto) 3.1 %; Monocytes # (auto) 1.26 K/uL (0.11-0.59); Monocytes % (auto) 8.1 %; Neutrophils # (auto) 13.73 K/uL (1.4-6.5); Neutrophils % (auto) 88.2 %; Ovalocytes 1+
[2019-01-16 07:36] LABS: Albumin Globulin Ratio 0.8 (0.9-2); Albumin Level 3.3 gm/dl (3.4-5.0); Bilirubin Direct 0.3 mg/dl (0-0.2); Bilirubin,Total 0.6 mg/dl (0.2-1); Calcium 8.7 mg/dl (8.5-10.1); Creatinine Clr Calc Pharmacy 11.2 ml/min; Est GFR (African American) 10.5; Est GFR (Non-African American) 9.1; Globulin 4.1 gm/dl (2.5-4.0); Potassium 3.9 mmol/L (3.5-5.1); Total Protein 7.4 gm/dl (6.4-8.2)
[2019-01-16] MEDS: INSULIN ASPART 100 UNITS/ML 3 ML PEN SC SCH ×5 (08:02→23:47)
[2019-01-16] MEDS: TESTOSTERONE 1% EXT SCH (08:11)
[2019-01-16] MEDS: CYANOCOBALAMIN 500 MCG TABLET (VITAMIN B-12) PO SCH (08:12)
[2019-01-16] MEDS: CLOPIDOGREL BISULFATE 75 MG TAB PO SCH (08:12)
[2019-01-16] MEDS: FERROUS GLUCONATE 324 MG TAB PO SCH (08:13)
[2019-01-16] MEDS: LIDOCAINE 5% 1 PATCH TD SCH (08:13)
--- NOTE | 2019-01-16 08:23 | Nephrology Progress Note ---
Date of Service January 16, 2019 Assessment & Plan (1) Hyperkalemia, diminished renal excretion: -manage now w/ HD (2) Acute renal failure superimposed on chronic kidney disease: complex pt w/ baseline creatinine 1.7, 1.9 10 days ago and presenting w/ creatinine 4.7 and now hyperkalemia and new (w/in past 10 days) pericardial effusion verified on TTE (no evidence of tamponade currently) His urine sediment is contaminated and very concentrated - shows he had decreased po prior to presentation and may possibly be consistent w/ infection; he has chronic proteinuria/microhematuria. he is on losartan and metformin as OP; his digoxin level is not particularly elevated. No recent IV contrast or abtx or nsaids. likeliest cause here is ischemic atn in setting of lower bp, already poorer cardiac output, and meds; lactic acidosis w/ metformin also possible as is ( less likely) rhabdomyolysis; glomerular processes always on differential as are -f/u pending urology eval given hx of severe/chronic lower urinary tract obstruction - browning placed, no evidence of obstruction or other acute urologic issue; may need to get urology input on unchanged R renal mass<>? if site of prior ablation or other; not likely to have acute role here, however -f/u pending urine cx - on aztreonam; added blood cultures -he is relatively hypotensive w/ SBPin 90s (had been 110s prior admission)>> monitor -given subacute pericardial effusion on TTE, anuria, ongoing hyperkalemia will arrange emergent dialysis 2.5hrs today w/ up to 750 mL off as tolerated; plan another tx tomorrow as well then reassess -added CK, lactate to labs this evening -daily bmp -strict I/O (3) History of renal carcinoma: followed by urology; s/p R cryoablation w/ stable imaging Physical Exam 2 Vital Signs (Past 24 Hours): Last Vital Signs Temp 36.6 C 01/16/19 07:19 Pulse 95 H 01/16/19 07:19 Resp 18 01/16/19 07:19 BP 157/83 H 01/16/19 07:19 Pulse Ox 96 01/16/19 07:19 Constitutional: well developed and well nourished Eyes: EOM intact bilaterally ENMT: Ears: no external ear abnormality Nose: no external nose abnormality Mouth: + dry oral mucous membranes Neck: no nuchal rigidity Respiratory: normal respiratory effort; no respiratory distress and no labored breathing Auscultation: + diminished lung sounds and + crackles ( fine BL) Cardiovascular: RRR, no murmur, no edema Heart Sounds: no cardiac rub Gastrointestinal (Abdomen): Inspection/Auscultation: normal bowel sounds Percussion/Palpation: abdomen soft; abdomen nontender Skin: no rashes, warm and dry Psychiatric: Orientation: oriented x 3 and cooperative _ (1) Acute renal failure superimposed on chronic kidney disease Acute renal failure type: Chronic kidney disease stage: stage 3 (moderate)
--- NOTE | 2019-01-16 11:23 | Cardiology Progress Note ---
Date of Service January 16, 2019 Assessment & Plan (1) Pericardial effusion: Only a mild elevation in his erythrocyte sedimentation rate was noted, the C- reactive protein was elevated however at 12. Pleuritic chest pain today. He is received 3 doses of IV Solu-Medrol, will transition to oral prednisone starting at 40 mg by mouth daily. Continue Protonix for GI prophylaxis. He received several doses of IV albumin will discontinue this at present pending reassessment. Repeat echo on 01/17 (2) Acute renal failure superimposed on chronic kidney disease: Dialysis plan today. Discussed with Dr. Martin. (3) Atrial fibrillation: Coumadin on hold. INR 2 today. Coreg on hold due to low BP, will reassess BP after HD this afternoon and consider resuming COLLISION WORKER dose. Digoxin is on hold. (4) Chronic anemia: To received transfusion of 2 units with HD. Subjective Chief Complaint: follow up shortness of breath Subjective: Patient states that he felt better overnight last night got a good night sleep. He definitely believes his breathing has improved compared to when he was first admitted. Telemetry reveals rate controlled atrial fibrillation. He is undergoing hemodialysis this morning, and his vital signs reveal that his blood pressure has trended toward being higher which I feel is actually an improvement for him. Physical Exam 2 Vital Signs (Past 24 Hours): Last Vital Signs Temp 36.6 C 01/16/19 10:30 Pulse 94 H 01/16/19 10:45 Resp 18 01/16/19 10:30 BP 150/79 H 01/16/19 10:45 Pulse Ox 97 01/16/19 10:30 Physical Exam: General: no acute distress and stated age Eyes: conjunctiva are pink and non-injected, sclera clear Neck: normal jugular venous pulse, no hepatojugular reflux Lungs: clear to auscultation and percussion Cardiac Exam: -irregular rhythm , 1/6 SM Abdomen: abdomen soft, non-tender, no abnormal masses and no hepatosplenomegaly Extremities: no edema and no cyanosis Neuro:awake, coversant, follows commands, no focal motor deficits Results & Data Laboratory Results Cardiac Enzymes 01/16/19 Range/Units 06:26 AST 262 H (15-37) U/L Coagulation 01/16/19 Range/Units 06:26 PT 19.5 H (9.0-12.0) Seconds CBC 01/16/19 Range/Units 06:26 WBC 15.55 H (4.8-10.8) K/uL RBC 2.24 L (4.7-6.1) M/uL Hgb 6.6 L* (14.0-18.0) g/dL Hct 20.4 L* (42-52) % Plt Count 240 (130-400) K/uL Neut # (Auto) 13.73 H (1.4-6.5) K/uL Lymph # (Auto) 0.48 L (1.2-3.4) K/uL [place] # (Auto) 1.26 H (0.11-0.59) K/uL Eos # (Auto) 0.00 (0-0.5) K/uL Baso # (Auto) 0.01 (0-0.2) K/uL Comprehensive Metabolic Panel 01/16/19 Range/Units 06:26 Sodium 133 L (136-145) mmol/L Potassium 3.9 (3.5-5.1) mmol/L Chloride 95 L (98-107) mmol/L Carbon Dioxide 26 (21-32) mmol/L BUN 61 H (7-18) mg/dl Creatinine 5.51 H* D (0.6-1.4) mg/dl Glucose 164 H (70-99) mg/dl Calcium 8.7 (8.5-10.1) mg/dl Direct Bilirubin 0.3 H (0-0.2) mg/dl AST 262 H (15-37) U/L ALT 307 H (12-78) U/L Alkaline Phosphatase 112 (45-117) U/L Total Protein 7.4 (6.4-8.2) gm/dl Albumin 3.3 L (3.4-5.0) gm/dl Intake and Output 01/15/19 01/16/19 01/16/19 22:59 06:59 14:59 Intake Total 145 / 145 150 / 150 0 / 0 Output Total 50 / 50 50 / 50 Balance 95 / 95 100 / 100 0 / 0 Intake: IV 45 / 45 50 / 50 Albumin 25% 50 ml @ 50 mls/hr 45 / 45 50 / 50 IV Q8H [facility] Rx#:[id number] Oral 100 / 100 100 / 100 Intake (Blood Product) Amt 0 / 0 Packed Cells, Leukoreduced 0 / 0 Unit [id number] Packed Cells, Leukoreduced 0 / 0 Unit [id number] Output: Urine Amount (Catheter) 50 [place]/Indwelling Other: Other Intake Source sips Weight 81.3 kg 81.3 kg Patient Weight 01/17/19 06:59 Weight 81.3 kg _ (1) Acute renal failure superimposed on chronic kidney disease Acute renal failure type: Chronic kidney disease stage: stage 3 (moderate) (2) Atrial fibrillation Atrial fibrillation type: unspecified Qualified Code(s): I48.91 - Unspecified atrial fibrillation
[2019-01-16] MEDS: PANTOprazole 40 MG in SYRINGE 0 ML IV SCH (12:31)
[2019-01-16] MEDS: predniSONE 20 MG TAB PO SCH (12:52)
[2019-01-16] MEDS: AMOXICILLIN 250 MG CAP PO SCH (15:51)
--- NOTE | 2019-01-16 15:57 | Hospitalist Progress Note ---
Date of Service January 16, 2019 Assessment & Plan (1) Chronic anemia: History of anemia of chronic disease Worsening of anemia in the setting of acute renal failure hb ~6.6 s/p 2 units of PRBC transfused with dialysis todauu post transfusion hb improved 8.4 cont to monitor H&H transfuse to keep HB > 8 to prevent demand ischemia due to oliguric renal failure transfusion should be done with dialysis to prevent vol overload Present on Admission?: Yes (2) Acute renal failure superimposed on chronic kidney disease: got his #3 tx of dialysis today electrolytes , cr /K improved post dialysis Urine output remains poor Nephrology following presented with oliguric acute renal failure, possible ATN Baseline creatinine 1.1, had recent contrast exposure a week ago for CT abdomen pelvis Creatinine worsened to 2 Presented with uremic symptoms of nausea vomiting, poor appetite and weakness, Creatinine elevated to more than 4/ hyperkalemia/poor urine output No improvement with IV fluids, bicarb drip/required emergent dialysis Repeat blood work showed worsening of creatinine with persistent hyperkalemia, CT abdomen pelvis shows no obstructive uropathy, nephrology consulted, appreciate input Present on Admission?: Yes (3) Hyperkalemia, diminished renal excretion: Potassium level normal after dialysis Secondary to acute renal failure, poor renal clearance Losartan discontinued, patient was started bicarb drip, He received calcium gluconate, insulin dextrose earlier With minimum to no improvement of potassium level Nephrology consulted, s/p dialysis catheter placement by RT jugular access 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 Present on Admission?: Yes (4) Pericardial effusion: /Possible secondary to uremia/ Renal failure rule out cardiac inflammation ECHO shows : Moderate to large pericardial effusion (was not evident on prior echo done a week ago) No evidence of pericardial tamponade pt is started on IV solu Medrol changed to PO prednisone 60 mg daily repeat ECHO shows persisted pericardial effusion /pt remains asymptomatic ( not pluritic chest pain /no hemodynamic instability ) given multiple co morbidities -best to avoid pericardial window cont conservative management with steroid and vol control with dialysis Patient is continued with dialysis Cardiology following, appreciate input Present on Admission?: Yes (5) History of renal carcinoma: Appreciate input from urology CT abdomen pelvis shows no evidence of obstructive uropathy No urological intervention needed patient Proceed for nephrology intervention for acute renal failure Outpatient follow-up with urology Scheduled for January 2019 (6) Supratherapeutic INR: History of chronic A. fib, on Coumadin Presented with supratherapeutic INR more than 9 possible secondary to poor renal clearance No evidence of active bleeding Coumadin kept on hold Given vitamin K p.o. in ER Repeat INR 4 Given 1 unit of FFP, 5 mg of p.o. vitamin K prior to dialysis catheter placement INR remains low subtherapeutic, started on subcu heparin Continue to hold Coumadin, in case patient needs placement of permanent dialysis catheter (7) Atrial fibrillation: Chronic A. fib, Continue on beta-bryan Coumadin was on hold for supratherapeutic INR Present on Admission?: Yes (8) CAD (coronary artery disease): History of coronary artery disease status post PTCA No complaint of angina Elevated troponin secondary to type II HI/demand ischemia in the setting of acute renal failure, volume overload, pericardial effusion Cardiology following Echo shows no wall motion abnormality severe ischemic cardiomyopathy, unchanged from prior, with circumferential pericardial effusion new since last echo on Patient is continued with all cardiac meds (9) DM type 2 (diabetes mellitus, type 2): Metformin on hold for acute renal failure acute illness Insulin sliding scale, pharmacy follow-up for glycemic management (10) Ischemic cardiomyopathy: History of ischemic cardiomyopathy EF of 35-40% status post AICD placement Presents with volume overload secondary to acute renal failure Lasix and losartan kept on hold for interval receiving dialysis for electrolyte and volume management (11) CVA (cerebral vascular accident): Continue on aspirin Plavix statin kept on hold for elevated transaminase (12) Cardiac defibrillator in place: (13) Elevated LFTs: Secondary to passive hepatic congestion due to decompensated heart failure severe ischemic cardiomyopathy in the setting of oliguric renal failure, renal failure, and appreciate input from gastroenterology, no intervention needed, continue to follow trend Lab shows elevated AST ALT, which were normal on 01/12/2019 Physical exam positive for mild right upper quadrant tenderness No rebound, No nausea vomiting Elevated transaminases could be multifactorial, acute illness/uremia/passive liver congestion secondary to volume overload in acute renal failure right upper quadrant ultrasound shows no gallbladder disease Repeat LFTs Hold statin GI evaluation appreciated (14) Elevated lactic acid level: Lactic acid level normalized No fever chills, stable vitals Lactic acid was borderline elevated yesterday, possible secondary to acute illness /hypoperfusion doubt sepsis, pro-calcitonin Within normal limit Patient is on Azactam empirically for possible UTI Order for blood and urine culture Patient does not have any cough, Chest x-ray shows no evidence of infiltration (15) Possible urinary tract infection: Urine culture positive for gram-positive cocci, enterococcus avium - pansensitive antibiotic changed to ampicillin Plan of care and patient status updated to pt's Daughter Sara over phone (16) Chronic right shoulder pain: Symptom improved with Lidoderm patch, heating pad Possible musculoskeletal, no limitation on range of motion CODE STATUS: Full code DVT prophylaxis: INR elevated Disposition: Patient was living at home with , was independent in ADLs Presents with significant functional decline, PT OT evaluation will be requested When medically stable Social service consult for discharge planning Subjective sitting up on chair comfortable denies of any chest discomfort or SOB had dialysis today s/p 2 units of PRBC transfusion with dialysis urine out put remains very poor poor /oliguria no nausea or abdominal pain tolerating diet Physical Exam 2 Vital Signs (Past 24 Hours): Last Vital Signs Temp 36.5 C 01/16/19 15:43 Pulse 96 H 01/16/19 15:43 Resp 18 01/16/19 15:43 BP 120/66 01/16/19 15:43 Pulse Ox 97 01/16/19 15:43 Constitutional: + ill appearing; no acute distress Eyes: + anicteric sclerae ENMT: Mouth: + dry oral mucous membranes Neck: trachea midline, no thyromegaly Respiratory: no respiratory distress, no labored breathing and no cough Auscultation: + rales (At base) Cardiovascular: Rate/Rhythm: + abnormal rate (Chronic A. fib) and + abnormal rhythm (Chronic A. 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 transplanted heart: [place] heart Associated angina: without angina Qualified Code(s): I25.10 - Atherosclerotic heart disease of [place] coronary artery without angina pectoris (3) Atrial fibrillation Atrial fibrillation type: unspecified Qualified Code(s): I48.91 - Unspecified atrial fibrillation (4) Acute renal failure superimposed on chronic kidney disease Acute renal failure type: with acute tubular necrosis Chronic kidney disease stage: stage 3 (moderate) Qualified Code(s): N17.0 - Acute kidney failure with tubular necrosis; N18.3 - Chronic kidney disease, stage 3 (moderate) (5) CVA (cerebral vascular accident) CVA mechanism: unspecified Qualified Code(s): I63.9 - Cerebral infarction, unspecified
[2019-01-16 17:07] LABS: Hematocrit (blood only) 25.8 % (42-52); Hemoglobin 8.4 g/dL (14.0-18.0); Mean Corpuscular Hgb Conc 32.6 g/dL (32-36); Mean Corpuscular Volume 89.3 fL (80-100); Mean Platelet Volume 8.9 fL (7.4-10.4); Nucleated RBC # (auto) 0.05 K/uL (0-0); Nucleated RBC % (auto) 0.3 %; Platelet Count 232 K/uL (130-400); RDW Coefficient of Variation 14.9 % (11.5-14.5); RDW Standard Deviation 48.9 fL (36.4-46.3); Red Blood Count 2.89 M/uL (4.7-6.1)
[2019-01-16 17:28] LABS: Albumin Globulin Ratio 0.8 (0.9-2); Albumin Level 3.2 gm/dl (3.4-5.0); BUN Creatinine Ratio 9.6 (10-20); Bilirubin Direct 0.5 mg/dl (0-0.2); Bilirubin,Total 1.1 mg/dl (0.2-1); Calcium 8.9 mg/dl (8.5-10.1); Creatinine Clr Calc Pharmacy 16.1 ml/min; Est GFR (African American) 16.2; Globulin 4.1 gm/dl (2.5-4.0); Potassium 3.5 mmol/L (3.5-5.1); Total Protein 7.3 gm/dl (6.4-8.2)
--- NOTE | 2019-01-16 17:51 | Dialysis Progress Note ---
Date of Service January 16, 2019 Assessment & Plan (1) Hyperkalemia, diminished renal excretion: -manage now w/ HD (2) Acute renal failure superimposed on chronic kidney disease: complex pt w/ baseline creatinine 1.7, 1.9 10 days prior to admission and presenting 01/13 w/ creatinine 4.7 and new hyperkalemia and new (w/in past 10 days) pericardial effusion verified on TTE (no evidence of tamponade currently) --effusion presumed at this point inflammatory more than uremic or less likely malignant/infectious. difficult w/ his cardiac profile to assess for tamponade/ HF or not in this setting per cardiology. His urine sediment is contaminated and very concentrated - shows he had decreased po prior to presentation and may possibly be consistent w/ infection; he has chronic proteinuria/microhematuria. he is on losartan and metformin as OP; his digoxin level is not particularly elevated. No recent IV contrast or abtx or nsaids. likeliest cause here is ischemic atn in setting of lower bp, already poorer cardiac output, and meds; lactic acidosis w/ metformin also possible as is ( less likely) rhabdomyolysis; glomerular processes always on differential -he remains oligoanuric and is therefore dialysis dependent for now >> first tx was 01/13 -cont strict I/O -for pRBC today w/ tx -eval daily for needs/renal status but will consider next tx on 01/18 depending on clinical status -daily bmp/cbc -admission urine cx w/ enterococcus avium > blood cxs negative; no longer on abtx -hypotension from admission improving -ck, lactate unrevealing (3) History of renal carcinoma: followed by urology; s/p R cryoablation w/ stable imaging; hx of significant lower urinary tract anatomic obstruction >> ensure browning flushes well Subjective seen on rounds this am 0930 approx. seen on dialysis. on 2LNC; feeling improved clniically > proud to say he felt like sitting in chair prior to tx and that he did so. nereida rocha shoulcer/scapular/chest pain. hgb 6.6 today and for pRBC w/ HD. edema resolved; tolerating browning; denies abd pain or N Physical Exam 2 Vital Signs (Past 24 Hours): Last Vital Signs Temp 36.5 C 01/16/19 15:43 Pulse 96 H 01/16/19 15:43 Resp 18 01/16/19 15:43 BP 120/66 01/16/19 15:43 Pulse Ox 97 01/16/19 15:43 Constitutional: well developed and well nourished sitting up in bed on 02nc A& 0 x 3 Eyes: EOM intact bilaterally ENMT: Ears: no external ear abnormality Nose: no external nose abnormality Mouth: + dry oral mucous membranes Neck: no nuchal rigidity Respiratory: normal respiratory effort Auscultation: + diminished lung sounds Cardiovascular: Rate/Rhythm: regular rate and regular rhythm Extremities: + edema (at most trace dependent) Gastrointestinal (Abdomen): Inspection/Auscultation: normal bowel sounds Percussion/Palpation: abdomen soft; abdomen nontender Musculoskeletal: Extremities: strength 5/5 throughout Skin: no rashes, warm and dry Neurologic: hoffman, fluent speech, no tremor Psychiatric: Orientation: alert, oriented to person, oriented to place and cooperative Results & Data Laboratory Results Abnormal lab results 01/12/19 01/15/19 01/15/19 Range/Units 23:08 20:25 22:11 WBC (4.8-10.8) K/uL RBC (4.7-6.1) M/uL Hgb (14.0-18.0) g/dL Hct (42-52) % RDW Std Deviation (36.4-46.3) fL RDW Coeff of Dung (11.5-14.5) % Immature Gran # (Auto) (0.00-0.02) K/uL Neut # (Auto) (1.4-6.5) K/uL Lymph # (Auto) (1.2-3.4) K/uL Callahan # (Auto) (0.11-0.59) K/uL Absolute Nucleated RBC (0-0) K/uL PT (9.0-12.0) Seconds INR (0.9-1.1) Sodium (136-145) mmol/L Chloride (98-107) mmol/L Anion Gap (3-11) BUN (7-18) mg/dl Creatinine (0.6-1.4) mg/dl BUN/Creatinine Ratio (10-20) Glucose (70-99) mg/dl POC Glucose 256 H (70-99) Total Bilirubin (0.2-1) mg/dl Direct Bilirubin (0-0.2) mg/dl AST (15-37) U/L ALT (12-78) U/L Alkaline Phosphatase (45-117) U/L Albumin (3.4-5.0) gm/dl Globulin (2.5-4.0) gm/dl Albumin/Globulin Ratio (0.9-2) Crossmatch See Detail See Detail 01/16/19 01/16/19 01/16/19 Range/Units 06:26 06:26 06:26 WBC 15.55 H (4.8-10.8) K/uL RBC 2.24 L (4.7-6.1) M/uL Hgb 6.6 L* (14.0-18.0) g/dL Hct 20.4 L* (42-52) % RDW Std Deviation 47.9 H (36.4-46.3) fL RDW Coeff of Dung (11.5-14.5) % Immature Gran # (Auto) 0.07 H (0.00-0.02) K/uL Neut # (Auto) 13.73 H (1.4-6.5) K/uL Lymph # (Auto) 0.48 L (1.2-3.4) K/uL Callahan # (Auto) 1.26 H (0.11-0.59) K/uL Absolute Nucleated RBC 0.04 H (0-0) K/uL PT 19.5 H (9.0-12.0) Seconds INR 2.0 H (0.9-1.1) Sodium 133 L (136-145) mmol/L Chloride 95 L (98-107) mmol/L Anion Gap 12.0 H (3-11) BUN 61 H (7-18) mg/dl Creatinine 5.51 H* D (0.6-1.4) mg/dl BUN/Creatinine Ratio (10-20) Glucose 164 H (70-99) mg/dl POC Glucose (70-99) Total Bilirubin (0.2-1) mg/dl Direct Bilirubin 0.3 H (0-0.2) mg/dl AST 262 H (15-37) U/L ALT 307 H (12-78) U/L Alkaline Phosphatase (45-117) U/L Albumin 3.3 L (3.4-5.0) gm/dl Globulin 4.1 H (2.5-4.0) gm/dl Albumin/Globulin Ratio 0.8 L (0.9-2) Crossmatch 01/16/19 01/16/19 01/16/19 Range/Units 07:22 11:21 16:14 WBC (4.8-10.8) K/uL RBC (4.7-6.1) M/uL Hgb (14.0-18.0) g/dL Hct (42-52) % RDW Std Deviation (36.4-46.3) fL RDW Coeff of Dung (11.5-14.5) % Immature Gran # (Auto) (0.00-0.02) K/uL Neut # (Auto) (1.4-6.5) K/uL Lymph # (Auto) (1.2-3.4) K/uL Callahan # (Auto) (0.11-0.59) K/uL Absolute Nucleated RBC (0-0) K/uL PT (9.0-12.0) Seconds INR (0.9-1.1) Sodium (136-145) mmol/L Chloride (98-107) mmol/L Anion Gap (3-11) BUN (7-18) mg/dl Creatinine (0.6-1.4) mg/dl BUN/Creatinine Ratio (10-20) Glucose (70-99) mg/dl POC Glucose 179 H 167 H 202 H (70-99) Total Bilirubin (0.2-1) mg/dl Direct Bilirubin (0-0.2) mg/dl AST (15-37) U/L ALT (12-78) U/L Alkaline Phosphatase (45-117) U/L Albumin (3.4-5.0) gm/dl Globulin (2.5-4.0) gm/dl Albumin/Globulin Ratio (0.9-2) Crossmatch 01/16/19 01/16/19 Range/Units 16:56 16:56 WBC 18.30 H (4.8-10.8) K/uL RBC 2.89 L (4.7-6.1) M/uL Hgb 8.4 L (14.0-18.0) g/dL Hct 25.8 L (42-52) % RDW Std Deviation 48.9 H (36.4-46.3) fL RDW Coeff of Dnug 14.9 H (11.5-14.5) % Immature Gran # (Auto) (0.00-0.02) K/uL Neut # (Auto) (1.4-6.5) K/uL Lymph # (Auto) (1.2-3.4) K/uL Callahan # (Auto) (0.11-0.59) K/uL Absolute Nucleated RBC 0.05 H (0-0) K/uL PT (9.0-12.0) Seconds INR (0.9-1.1) Sodium 133 L (136-145) mmol/L Chloride 96 L (98-107) mmol/L Anion Gap (3-11) BUN 37 H (7-18) mg/dl Creatinine 3.84 H D (0.6-1.4) mg/dl BUN/Creatinine Ratio 9.6 L (10-20) Glucose 186 H (70-99) mg/dl POC Glucose (70-99) Total Bilirubin 1.1 H D (0.2-1) mg/dl Direct Bilirubin 0.5 H D (0-0.2) mg/dl AST 245 H (15-37) U/L ALT 306 H (12-78) U/L Alkaline Phosphatase 120 H (45-117) U/L Albumin 3.2 L (3.4-5.0) gm/dl Globulin 4.1 H (2.5-4.0) gm/dl Albumin/Globulin Ratio 0.8 L (0.9-2) Crossmatch _ (1) Acute renal failure superimposed on chronic kidney disease Acute renal failure type: Chronic kidney disease stage: stage 3 (moderate)
[2019-01-17] MEDS: HEPARIN SOD 5,000 UNIT/0.5 ML VIAL SQ SCH ×3 (06:33→20:57)
[2019-01-17 07:32] LABS: Prothrombin Time 19.8 Seconds (9.0-12.0)
[2019-01-17] MEDS: TESTOSTERONE 1% EXT SCH (08:04)
[2019-01-17] MEDS: LIDOCAINE 5% 1 PATCH TD SCH (08:05)
[2019-01-17] MEDS: CLOPIDOGREL BISULFATE 75 MG TAB PO SCH (08:05)
[2019-01-17] MEDS: predniSONE 20 MG TAB PO SCH (08:05)
[2019-01-17] MEDS: FERROUS GLUCONATE 324 MG TAB PO SCH (08:05)
[2019-01-17] MEDS: CYANOCOBALAMIN 500 MCG TABLET (VITAMIN B-12) PO SCH (08:05)
[2019-01-17] MEDS: INSULIN ASPART 100 UNITS/ML 3 ML PEN SC SCH ×4 (08:06→20:45)
[2019-01-17 08:08] LABS: Creatinine Clr Calc Pharmacy 13.9 ml/min; Est GFR (African American) 13.6; Est GFR (Non-African American) 11.7
--- NOTE | 2019-01-17 09:15 | Nephrology Progress Note ---
Date of Service January 17, 2019 Assessment & Plan (1) Acute renal failure superimposed on chronic kidney disease: complex pt w/ baseline creatinine 1.7, 1.9 10 days prior to admission and presenting 01/13 w/ creatinine 4.7 and new hyperkalemia and new (w/in past 10 days) pericardial effusion verified on TTE (no evidence of tamponade currently) --effusion presumed at this point inflammatory more than uremic or less likely malignant/infectious. difficult w/ his cardiac profile to assess for tamponade/ HF or not in this setting per cardiology. His admission urine sediment is contaminated and very concentrated - shows he had decreased po prior to presentation and may possibly be consistent w/ infection; he has chronic proteinuria/microhematuria. he is on losartan and metformin as OP; his digoxin level is not particularly elevated. No recent IV contrast or abtx or nsaids. likeliest cause here is ischemic atn in setting of lower bp, already poorer cardiac output, and meds; lactic acidosis w/ metformin also possible as is ( less likely) rhabdomyolysis; glomerular processes always on differential. ck, lactate unrevealing ->>>>>he remains oliguric and is therefore dialysis dependent for now >> first tx was 01/13; likely to need TDC placement later this week given trends so far; did introduce thsi to pt but no definite plans yet; he will think about it -cont strict I/O -eval daily for needs/renal status but will definitely plan tx on 01/18 depending on clinical status >>> will also d/w cardiology today whether he needs one today short given breathing >> note TTE just done and will see how colleagues read it / d/w them -daily bmp/cbc -admission urine cx w/ enterococcus avium > blood cxs negative; no longer on abtx ->>>>hypotension from admission improving and now hypertensive and tachycardic (2) History of renal carcinoma: followed by urology; s/p R cryoablation w/ stable imaging; hx of significant lower urinary tract anatomic obstruction >> ensure browning flushes well (3) HTN (hypertension): -stop testosterone for now if appropriate -increased bp on steroids and w/ obligate holding of some home bp meds -increase coreg if cardiology agrees to 12.5 Present on Admission?: Yes Subjective only admits to slight sob if pressed; no n/v, no chest/shoulder/scapular pain; no edema, no confusion; denies issues/concerns w/ HD tx; knows he may well need more / longer term HD than 2-3 txs Physical Exam 2 Vital Signs (Past 24 Hours): Last Vital Signs Temp 36.5 C 01/17/19 07:01 Pulse 103 H 01/17/19 08:30 Resp 17 01/17/19 07:01 BP 146/81 H 01/17/19 07:01 Pulse Ox 96 01/17/19 07:01 Constitutional: well developed and well nourished on 02NC, A& 0 x3, Eyes: EOM intact bilaterally ENMT: Ears: no external ear abnormality Nose: no external nose abnormality Mouth: + dry oral mucous membranes Neck: no nuchal rigidity Respiratory: + respiratory distress (very mild), + labored breathing and + paradoxical thoraco-abdominal movement Auscultation: + diminished lung sounds Cardiovascular: Rate/Rhythm: regular rhythm and + tachycardic Extremities: no edema Gastrointestinal (Abdomen): Inspection/Auscultation: normal bowel sounds Percussion/Palpation: abdomen soft; abdomen nontender Musculoskeletal: Extremities: strength 5/5 throughout Skin: no rashes, warm and dry Neurologic: hoffman fluent speech Psychiatric: Orientation: alert, oriented to person, oriented to place and cooperative Genitourinary: browning w/ scant urine Results & Data Laboratory Results Abnormal lab results 01/12/19 01/15/19 01/16/19 Range/Units 23:08 22:11 11:21 WBC (4.8-10.8) K/uL RBC (4.7-6.1) M/uL Hgb (14.0-18.0) g/dL Hct (42-52) % RDW Std Deviation (36.4-46.3) fL RDW Coeff of Dung (11.5-14.5) % Absolute Nucleated RBC (0-0) K/uL PT (9.0-12.0) Seconds INR (0.9-1.1) Sodium (136-145) mmol/L Chloride (98-107) mmol/L BUN (7-18) mg/dl Creatinine (0.6-1.4) mg/dl BUN/Creatinine Ratio (10-20) Glucose (70-99) mg/dl POC Glucose 167 H (70-99) Total Bilirubin (0.2-1) mg/dl Direct Bilirubin (0-0.2) mg/dl AST (15-37) U/L ALT (12-78) U/L Alkaline Phosphatase (45-117) U/L Albumin (3.4-5.0) gm/dl Globulin (2.5-4.0) gm/dl Albumin/Globulin Ratio (0.9-2) Crossmatch See Detail See Detail 01/16/19 01/16/19 01/16/19 Range/Units 16:14 16:56 16:56 WBC 18.30 H (4.8-10.8) K/uL RBC 2.89 L (4.7-6.1) M/uL Hgb 8.4 L (14.0-18.0) g/dL Hct 25.8 L (42-52) % RDW Std Deviation 48.9 H (36.4-46.3) fL RDW Coeff of Dung 14.9 H (11.5-14.5) % Absolute Nucleated RBC 0.05 H (0-0) K/uL PT (9.0-12.0) Seconds INR (0.9-1.1) Sodium 133 L (136-145) mmol/L Chloride 96 L (98-107) mmol/L BUN 37 H (7-18) mg/dl Creatinine 3.84 H D (0.6-1.4) mg/dl BUN/Creatinine Ratio 9.6 L (10-20) Glucose 186 H (70-99) mg/dl POC Glucose 202 H (70-99) Total Bilirubin 1.1 H D (0.2-1) mg/dl Direct Bilirubin 0.5 H D (0-0.2) mg/dl AST 245 H (15-37) U/L ALT 306 H (12-78) U/L Alkaline Phosphatase 120 H (45-117) U/L Albumin 3.2 L (3.4-5.0) gm/dl Globulin 4.1 H (2.5-4.0) gm/dl Albumin/Globulin Ratio 0.8 L (0.9-2) Crossmatch 01/16/19 01/17/19 01/17/19 Range/Units 20:37 06:51 06:51 WBC (4.8-10.8) K/uL RBC (4.7-6.1) M/uL Hgb (14.0-18.0) g/dL Hct (42-52) % RDW Std Deviation (36.4-46.3) fL RDW Coeff of Dung (11.5-14.5) % Absolute Nucleated RBC (0-0) K/uL PT 19.8 H (9.0-12.0) Seconds INR 2.0 H (0.9-1.1) Sodium (136-145) mmol/L Chloride (98-107) mmol/L BUN (7-18) mg/dl Creatinine 4.45 H D (0.6-1.4) mg/dl BUN/Creatinine Ratio (10-20) Glucose (70-99) mg/dl POC Glucose 200 H (70-99) Total Bilirubin (0.2-1) mg/dl Direct Bilirubin (0-0.2) mg/dl AST (15-37) U/L ALT (12-78) U/L Alkaline Phosphatase (45-117) U/L Albumin (3.4-5.0) gm/dl Globulin (2.5-4.0) gm/dl Albumin/Globulin Ratio (0.9-2) Crossmatch 01/17/19 Range/Units 07:26 WBC (4.8-10.8) K/uL RBC (4.7-6.1) M/uL Hgb (14.0-18.0) g/dL Hct (42-52) % RDW Std Deviation (36.4-46.3) fL RDW Coeff of Dung (11.5-14.5) % Absolute Nucleated RBC (0-0) K/uL PT (9.0-12.0) Seconds INR (0.9-1.1) Sodium (136-145) mmol/L Chloride (98-107) mmol/L BUN (7-18) mg/dl Creatinine (0.6-1.4) mg/dl BUN/Creatinine Ratio (10-20) Glucose (70-99) mg/dl POC Glucose 153 H (70-99) Total Bilirubin (0.2-1) mg/dl Direct Bilirubin (0-0.2) mg/dl AST (15-37) U/L ALT (12-78) U/L Alkaline Phosphatase (45-117) U/L Albumin (3.4-5.0) gm/dl Globulin (2.5-4.0) gm/dl Albumin/Globulin Ratio (0.9-2) Crossmatch _ (1) Acute renal failure superimposed on chronic kidney disease Acute renal failure type: with acute tubular necrosis Chronic kidney disease stage: stage 3 (moderate) Qualified Code(s): N17.0 - Acute kidney failure with tubular necrosis; N18.3 - Chronic kidney disease, stage 3 (moderate)
--- NOTE | 2019-01-17 11:03 | Cardiology Progress Note ---
Date of Service January 17, 2019 Assessment & Plan (1) Pericardial effusion: Presumed inflamatory pericardial effusion. Size improved on echo 01/17, s/p initiation of corticosteroids. Not a candidate for NSAIDS or high dose ASA. Renal dysfunction prevents use of colchicine Continue prednisone 40 mg for now, Day #2, will taper over minimum of 6 weeks. Continue PPI for GI prophylaxis. Plan on repeat echo at 48 hr interval. Given generalized frailty and risk of recurrence, favor trial of medication therapy for pericardial effusion rather than higher risk pericardiocentesis or pericardial window procedure. Pt felt to be making favorable progress. (2) Elevated LFTs: Likely due to congestive hepatopathy, given chronic RV systolic dysfunction and tricuspid regurgitation. (3) Acute renal failure superimposed on chronic kidney disease: Continue HD support as tolerated. (4) Atrial fibrillation: Tachycardia in to the range of the 110;s (chronic AF) on telemetry. Coreg had been held due to relative hypotension compared to baseline BPs. Systolic BP readings now in range of 120s to 150s over last 24 hrs, compared to 90-100s earlier this stay. -Will resume prior to hospital dose of coreg. -Coumadin on hold, INR still 2 due to acute illness, and congestive hepatopathy. Case discussed with Dr Olivares. Subjective Chief Complaint: follow up shortness of breath, edema Subjective: patient notes improved SOB subjectively, however, elevated respiratory rate still noted at bedside. He continued to appear improved compared to when I first saw him 3 days ago on hospital day #2. Physical Exam 2 Vital Signs (Past 24 Hours): Last Vital Signs Temp 36.5 C 01/17/19 07:01 Pulse 103 H 01/17/19 08:30 Resp 17 01/17/19 07:01 BP 146/81 H 01/17/19 07:01 Pulse Ox 96 01/17/19 07:01 Constitutional: + ill appearing (chronically ill in appearance) and + thin Respiratory: mildly decreased BS at left base, no rales, or rhonchi Cardiovascular: irregular rhythm, tachycardic, no rub, no edema Gastrointestinal (Abdomen): Percussion/Palpation: abdomen soft; abdomen nontender and no guarding Neurologic: conversant, follows commands, moves all 4 extremities Genitourinary: Polanco in place, draining clear yellow urine Results & Data Laboratory Results Cardiac Enzymes 01/16/19 Range/Units 16:56 AST 245 H (15-37) U/L Coagulation 01/17/19 Range/Units 06:51 PT 19.8 H (9.0-12.0) Seconds CBC 01/16/19 Range/Units 16:56 WBC 18.30 H (4.8-10.8) K/uL RBC 2.89 L (4.7-6.1) M/uL Hgb 8.4 L (14.0-18.0) g/dL Hct 25.8 L (42-52) % Plt Count 232 (130-400) K/uL Comprehensive Metabolic Panel 01/16/19 01/17/19 Range/Units 16:56 06:51 Sodium 133 L (136-145) mmol/L Potassium 3.5 (3.5-5.1) mmol/L Chloride 96 L (98-107) mmol/L Carbon Dioxide 29 (21-32) mmol/L BUN 37 H (7-18) mg/dl Creatinine 3.84 H D 4.45 H D (0.6-1.4) mg/dl Glucose 186 H (70-99) mg/dl Calcium 8.9 (8.5-10.1) mg/dl Direct Bilirubin 0.5 H D (0-0.2) mg/dl AST 245 H (15-37) U/L ALT 306 H (12-78) U/L Alkaline Phosphatase 120 H (45-117) U/L Total Protein 7.3 (6.4-8.2) gm/dl Albumin 3.2 L (3.4-5.0) gm/dl Intake and Output 01/16/19 01/17/19 01/17/19 22:59 06:59 14:59 Intake Total 500 / 500 420 / 420 Output Total 50 / 50 80 / 80 Balance 450 / 450 340 / 340 Intake: Oral 500 / 500 420 / 420 Output: Urine Amount (Catheter) 50 / 50 80 / 80 Polanco/Indwelling 50 / 50 80 / 80 Other: Weight 83.6 kg Patient Weight 01/18/19 06:59 Weight 83.6 kg Medications Administered Current Inpatient Medications Acetaminophen (Tylenol) 650 mg PO Q4H PRN PRN Reason: Pain or Fever Stop: 02/11/19 22:49 Last Admin: 01/14/19 00:24 Dose: 650 mg Al Hydrox/Mg Hydrox/Simethicone (Maalox) 15 ml PO Q4H PRN PRN Reason: Dyspepsia Stop: 02/11/19 22:49 Amoxicillin (Amoxil) 500 mg PO Q24H [facility]; Protocol Stop: 01/24/19 15:59 Last Admin: 01/16/19 15:51 Dose: 500 mg Carvedilol (Coreg) 6.25 mg PO BID [facility] Stop: 02/16/19 10:59 Clopidogrel Bisulfate (Plavix) 75 mg PO QAM [facility] Stop: 02/12/19 08:59 Last Admin: 01/17/19 08:05 Dose: 75 mg Cyanocobalamin (Vitamin B-12) 1,000 mcg PO QAM [facility] Stop: 02/12/19 08:59 Last Admin: 01/17/19 08:05 Dose: 1,000 mcg Dextrose (Dextrose 50%) 25 - 50 ml IV UD PRN; Protocol PRN Reason: Hypoglycemia Protocol Stop: 02/11/19 23:03 Ferrous Gluconate (Ferrous Gluconate) [facility] [place] Stop: 02/12/19 08:59 Last Admin: 01/17/19 08:05 Dose: 324 mg Glucagon (Glucagen) 1 mg SQ UD PRN; Protocol PRN Reason: Hypoglycemia Protocol Stop: 02/11/19 23:03 Glucose (Glucose 40%) 15 - 30 gm PO UD PRN; Protocol PRN Reason: Hypoglycemia Protocol Stop: 02/11/19 23:03 Glucose (Dex4 Glucose) 4 - 8 tabs PO UD PRN; Protocol PRN Reason: Hypoglycemia Protocol Stop: 02/11/19 23:03 Heparin Sodium (Beef Lung) (Heparin Sod 10 Unit/Ml Flush) 5 ml FLUSH PRN PRN PRN Reason: Flush Stop: 02/15/19 03:31 Heparin Sodium (Porcine) (Heparin Sodium (Porcine)) 5,000 units SQ Q8 [facility] Stop: 02/14/19 09:59 Last Admin: 01/17/19 06:33 Dose: 5,000 units Pantoprazole Sodium 40 mg/ (Syringe) 10 mls @ 5 mls/min IV DAILY@1100 [facility] Stop: 02/14/19 10:59 Last Admin: 01/16/19 12:31 Dose: 5 mls/min Prochlorperazine 10 mg/ (Syringe) 10 mls @ 5 mls/min IV Q6H PRN PRN Reason: Nausea And Vomiting Stop: 02/14/19 00:02 Sodium Chloride (Nss 250ml) 250 mls @ 15 mls/hr IV .[id number] PRN PRN Reason: For Transfusion Stop: 02/15/19 06:51 Insulin Aspart (Novolog Flexpen) 0 units SC ACHS [facility] Stop: 02/13/19 07:59 Last Admin: 01/17/19 08:06 Dose: 6 units Lidocaine (Lidoderm 5%) 1 patch TD QAM [facility] Stop: 02/13/19 08:59 Last Admin: 01/17/19 08:05 Dose: 1 patch Miscellaneous (Carbohydrates For Hypoglycemia) 15 - 30 gm PO UD PRN PRN Reason: Hypoglycemia Treatment Stop: 02/11/19 23:03 Miscellaneous (Remove Lidoderm Patch) 1 ea N/A DAILY@2100 [facility] Stop: 02/13/19 20:59 Last Admin: 01/16/19 20:47 Dose: 1 ea Miscellaneous Information () 1 ea N/A UD PRN PRN Reason: Consult Stop: 02/14/19 13:09 Nitroglycerin (Nitrostat) 0.4 mg SL UD PRN PRN Reason: Chest Pain Stop: 02/11/19 22:49 *Testosterone 1% Gel *Non-Formulary Patient's Own Med 1 ea EXT DAILY [facility] Stop: 02/13/19 08:59 Last Admin: 01/17/19 08:04 Dose: 1 ea Prednisone (Prednisone) 40 mg PO DAILY [facility] Stop: 02/15/19 11:29 Last Admin: 01/17/19 08:05 Dose: 40 mg Rosuvastatin Calcium (Crestor) 20 mg PO [facility] Stop: 02/12/19 08:59 Last Admin: 01/13/19 07:50 Dose: 20 mg Sertraline HCl (Zoloft) 50 mg PO [facility] Stop: 02/12/19 08:59 Last Admin: 01/13/19 07:51 Dose: 50 mg _ (1) Acute renal failure superimposed on chronic kidney disease Acute renal failure type: with acute tubular necrosis Chronic kidney disease stage: stage 3 (moderate) Qualified Code(s): N17.0 - Acute kidney failure with tubular necrosis; N18.3 - Chronic kidney disease, stage 3 (moderate) (2) Atrial fibrillation Atrial fibrillation type: unspecified Qualified Code(s): I48.91 - Unspecified atrial fibrillation
[2019-01-17] MEDS: PANTOprazole 40 MG in SYRINGE 0 ML IV SCH (12:10)
[2019-01-17 12:11] LABS: Hematocrit (blood only) 28.8 % (42-52); Hemoglobin 9.3 g/dL (14.0-18.0); Mean Corpuscular Volume 91.4 fL (80-100); Mean Platelet Volume 8.9 fL (7.4-10.4); Platelet Count 228 K/uL (130-400); RDW Coefficient of Variation 15.2 % (11.5-14.5); RDW Standard Deviation 49.8 fL (36.4-46.3); Red Blood Count 3.15 M/uL (4.7-6.1); White Blood Count 19.29 K/uL (4.8-10.8)
[2019-01-17 12:12] LABS: Mean Corpuscular Hgb Conc 32.3 g/dL (32-36)
[2019-01-17] MEDS: CARVEDILOL 6.25 MG TAB PO SCH ×2 (12:16→21:26)
[2019-01-17 12:46] LABS: Albumin Globulin Ratio 0.7 (0.9-2); Albumin Level 3.1 gm/dl (3.4-5.0); BUN Creatinine Ratio 11.2 (10-20); Bilirubin Direct 0.4 mg/dl (0-0.2); Bilirubin,Total 0.7 mg/dl (0.2-1); Calcium 8.7 mg/dl (8.5-10.1); Creatinine Clr Calc Pharmacy 13.4 ml/min; Est GFR (Non-African American) 11.2; Globulin 4.2 gm/dl (2.5-4.0); Potassium 3.5 mmol/L (3.5-5.1); Total Protein 7.3 gm/dl (6.4-8.2)
[2019-01-17] MEDS: AMOXICILLIN 250 MG CAP PO SCH (15:43)
--- NOTE | 2019-01-17 18:02 | Hospitalist Progress Note ---
Date of Service January 17, 2019 Assessment & Plan (1) Chronic anemia: History of anemia of chronic disease Worsening of anemia in the setting of acute renal failure s/p 2 units of PRBC transfused with dialysis post transfusion hb improved 8.4 cont to monitor H&H transfuse to keep HB > 8 to prevent demand ischemia due to oliguric renal failure transfusion should be done with dialysis to prevent vol overload (2) Acute renal failure superimposed on chronic kidney disease: Getting intermittent dialysis electrolytes , cr /K improved post dialysis Urine output remains poor Nephrology following presented with oliguric acute renal failure, possible ATN Baseline creatinine 1.1, had recent contrast exposure a week ago for CT abdomen pelvis Creatinine worsened to 2 Presented with uremic symptoms of nausea vomiting, poor appetite and weakness, Creatinine elevated to more than 4/ hyperkalemia/poor urine output No improvement with IV fluids, bicarb drip/required emergent dialysis Repeat blood work showed worsening of creatinine with persistent hyperkalemia, CT abdomen pelvis shows no obstructive uropathy, nephrology consulted, appreciate input (3) Hyperkalemia, diminished renal excretion: Potassium level normal after dialysis Secondary to acute renal failure, poor renal clearance Nephrology consulted, Avoid BRIANA inhibitor/ARB Continue on low potassium diet (4) Pericardial effusion: /Possible secondary to uremia/ Renal failure rule out cardiac inflammation ECHO shows : Interval improvement of pericardial effusion No evidence of pericardial tamponade Continue on PO prednisone 60 mg daily -for possible inflammatory pericardial effusion given multiple co morbidities -best to avoid pericardial window cont conservative management with steroid and vol control with dialysis Cardiology following, appreciate input (5) History of renal carcinoma: Appreciate input from urology CT abdomen pelvis shows no evidence of obstructive uropathy No urological intervention needed patient Proceed for nephrology intervention for acute renal failure Outpatient follow-up with urology Scheduled for January 2019 (6) Supratherapeutic INR: History of chronic A. fib, on Coumadin Presented with supratherapeutic INR more than 9 possible secondary to poor renal clearance No evidence of active bleeding Coumadin kept on hold Given vitamin K p.o. in ER Repeat INR 4 Given 1 unit of FFP, 5 mg of p.o. vitamin K prior to dialysis catheter placement INR remains low subtherapeutic, started on subcu heparin Continue to hold Coumadin, in case patient needs placement of permanent dialysis catheter (7) Atrial fibrillation: Chronic A. fib, Continue on beta-bryan Coumadin was on hold for supratherapeutic INR (8) CAD (coronary artery disease): History of coronary artery disease status post PTCA No complaint of angina Elevated troponin secondary to type II FL/demand ischemia in the setting of acute renal failure, volume overload, pericardial effusion Cardiology following Echo shows no wall motion abnormality severe ischemic cardiomyopathy, unchanged from prior, with circumferential pericardial effusion new since last echo on 11/10/2019 Patient is continued with all cardiac meds (9) DM type 2 (diabetes mellitus, type 2): Metformin on hold for acute renal failure acute illness Insulin sliding scale, pharmacy follow-up for glycemic management (10) Ischemic cardiomyopathy: History of ischemic cardiomyopathy EF of 35-40% status post AICD placement Presents with volume overload secondary to acute renal failure Lasix and losartan kept on hold for interval receiving dialysis for electrolyte and volume management (11) CVA (cerebral vascular accident): Continue on aspirin Plavix statin kept on hold for elevated transaminase (12) Cardiac defibrillator in place: (13) Elevated LFTs: Secondary to passive hepatic congestion due to decompensated heart failure severe ischemic cardiomyopathy in the setting of oliguric renal failure, renal failure, and appreciate input from gastroenterology, no intervention needed, continue to follow trend Lab shows elevated AST ALT, which were normal on 01/12/2019 Physical exam positive for mild right upper quadrant tenderness No rebound, No nausea vomiting Elevated transaminases could be multifactorial, acute illness/uremia/passive liver congestion secondary to volume overload in acute renal failure right upper quadrant ultrasound shows no gallbladder disease Repeat LFTs Hold statin GI evaluation appreciated (14) Elevated lactic acid level: Lactic acid level normalized No fever chills, stable vitals Lactic acid was borderline elevated yesterday, possible secondary to acute illness /hypoperfusion doubt sepsis, pro-calcitonin Within normal limit Patient is on Azactam empirically for possible UTI Order for blood and urine culture Patient does not have any cough, Chest x-ray shows no evidence of infiltration (15) Possible urinary tract infection: Urine culture positive for gram-positive cocci, enterococcus avium - pansensitive antibiotic changed to ampicillin Plan of care and patient status updated to pt's Daughter Sara over phone (16) Chronic right shoulder pain: Symptom improved with Lidoderm patch, heating pad Possible musculoskeletal, no limitation on range of motion CODE STATUS: Full code DVT prophylaxis: INR elevated Disposition: Patient was living at home with , was independent in ADLs Presents with significant functional decline, PT OT evaluation will be requested When medically stable Social service consult for discharge planning Subjective Patient reports of feeling better, Had episodes of orthopnea last night, symptom improved after using extra pillow During daytime patient has been sitting on the chair, feels improvement of symptoms No lower extremity swelling or edema Urine output remains poor No complaint of abdominal pain or nausea Appetite improved to baseline Physical Exam Vital Signs (Past 24 Hours): Last Vital Signs Temp 36.8 C 01/17/19 15:33 Pulse 122 H 01/17/19 16:00 Resp 18 01/17/19 15:33 BP 149/71 H 01/17/19 15:33 Pulse Ox 98 01/17/19 15:33 Constitutional: no acute distress Eyes: + anicteric sclerae ENMT: Mouth: + dry oral mucous membranes Neck: trachea midline, no thyromegaly Respiratory: no respiratory distress, no labored breathing and no cough Cardiovascular: Rate/Rhythm: + abnormal rhythm (Chronic A. fib) Gastrointestinal (Abdomen): Inspection/Auscultation: abdomen normal to inspection Percussion/Palpation: no hepatomegaly and no ascites Skin: no rashes, warm and dry Neurologic: PERRL, EOMI, accommodation nl, no face palsy, no dysarthria + confused Psychiatric: A+Ox3, euthymic affect (1) DM type 2 (diabetes mellitus, type 2) Chronic kidney disease stage: stage 4 (severe) Diabetes mellitus complication detail: with chronic kidney disease Diabetes mellitus complication status: with kidney complications Diabetes mellitus oil heaterman insulin use: without fdc use Qualified Code(s): E11.22 - Type 2 diabetes mellitus with diabetic chronic kidney disease; N18.4 - Chronic kidney disease, stage 4 (severe) (2) CAD (coronary artery disease) Associated angina: without angina Coronary Disease-Associated Artery/Lesion type: [place] artery [place] vs. transplanted heart: [place] heart Qualified Code(s): I25.10 - Atherosclerotic heart disease of [place] coronary artery without angina pectoris (3) Atrial fibrillation Atrial fibrillation type: unspecified Qualified Code(s): I48.91 - Unspecified atrial fibrillation (4) Acute renal failure superimposed on chronic kidney disease Acute renal failure type: with acute tubular necrosis Chronic kidney disease stage: stage 3 (moderate) Qualified Code(s): N17.0 - Acute kidney failure with tubular necrosis; N18.3 - Chronic kidney disease, stage 3 (moderate) (5) CVA (cerebral vascular accident) CVA mechanism: unspecified Qualified Code(s): I63.9 - Cerebral infarction, unspecified
[2019-01-18] MEDS: HEPARIN SOD 5,000 UNIT/0.5 ML VIAL SQ SCH ×3 (06:29→20:56)
[2019-01-18 06:58] LABS: Hematocrit (blood only) 28.7 % (42-52); Hemoglobin 9.2 g/dL (14.0-18.0); Mean Corpuscular Hgb Conc 32.1 g/dL (32-36); Mean Platelet Volume 8.7 fL (7.4-10.4); Nucleated RBC # (auto) 0.02 K/uL (0-0); Nucleated RBC % (auto) 0.2 %; Platelet Count 204 K/uL (130-400); RDW Coefficient of Variation 14.7 % (11.5-14.5); RDW Standard Deviation 48.1 fL (36.4-46.3); Red Blood Count 3.19 M/uL (4.7-6.1); White Blood Count 14.51 K/uL (4.8-10.8)
[2019-01-18 07:10] LABS: INR 1.8 (0.9-1.1); Prothrombin Time 17.4 Seconds (9.0-12.0)
[2019-01-18] MEDS ORDERED: SODIUM CHLORIDE 0.9% 1000ML 1,000 ML IV PRN (07:49)
[2019-01-18 07:50] LABS: Albumin Globulin Ratio 0.7 (0.9-2); Albumin Level 2.9 gm/dl (3.4-5.0); BUN Creatinine Ratio 12.3 (10-20); Bilirubin Direct 0.3 mg/dl (0-0.2); Bilirubin,Total 0.8 mg/dl (0.2-1); Creatinine Clr Calc Pharmacy 11.6 ml/min; Est GFR (Non-African American) 9.5; Potassium 3.7 mmol/L (3.5-5.1); Total Protein 6.9 gm/dl (6.4-8.2)
[2019-01-18] MEDS ORDERED: HEPARIN SOD (PORCINE) 1000 UNIT/ML 10 ML VIAL IV SCH (08:00)
[2019-01-18] MEDS: INSULIN ASPART 100 UNITS/ML 3 ML PEN SC SCH ×4 (08:25→20:57)
[2019-01-18] MEDS: FERROUS GLUCONATE 324 MG TAB PO SCH (08:30)
[2019-01-18] MEDS: LIDOCAINE 5% 1 PATCH TD SCH (08:30)
[2019-01-18] MEDS: CLOPIDOGREL BISULFATE 75 MG TAB PO SCH (08:31)
[2019-01-18] MEDS: predniSONE 20 MG TAB PO SCH (08:31)
[2019-01-18] MEDS: CYANOCOBALAMIN 500 MCG TABLET (VITAMIN B-12) PO SCH (08:31)
[2019-01-18] MEDS: CARVEDILOL 6.25 MG TAB PO SCH ×2 (08:32→20:56)
[2019-01-18] MEDS: PANTOprazole 40 MG TAB PO SCH (08:32)
[2019-01-18] MEDS: HEPARIN SOD (PORCINE) 1000 UNIT/ML 10 ML VIAL IV SCH ×3 (10:30→12:20)
--- NOTE | 2019-01-18 11:39 | Dialysis Progress Note ---
Date of Service January 18, 2019 Assessment & Plan (1) Acute renal failure superimposed on chronic kidney disease: complex pt w/ baseline creatinine 1.7, 1.9 10 days prior to admission and presenting 01/13 w/ creatinine 4.7 and new hyperkalemia and new (w/in past 10 days) pericardial effusion verified on TTE (no evidence of tamponade currently) --effusion presumed at this point inflammatory more than uremic or less likely malignant/infectious. difficult w/ his cardiac profile to assess for tamponade/HF or not in this setting per cardiology. His admission urine sediment is contaminated and very concentrated - shows he had decreased po prior to presentation and may possibly be consistent w/ infection; he has chronic proteinuria/microhematuria. he is on losartan and metformin as OP; his digoxin level is not particularly elevated. No recent IV contrast or abtx or nsaids. likeliest cause here is ischemic atn in setting of lower bp, already poorer cardiac output, and meds; lactic acidosis w/ metformin also possible as is (less likely) rhabdomyolysis; glomerular processes always on differential. ck, lactate unrevealing ->>>>>as of 01/18 he is not oliguric (a good sign) and is therefore dialysis dependent for now but clinically improved somewhat today for first time>> first tx was 01/13; given improved UOP >> if this can improve/increase, MAY be able to avoid TDC on 01/20 and instead consider removing line and monitoring for recovery through weekend -cont strict I/O -eval daily for needs/renal status but will definitely plan tx on 01/18 depending on clinical status >>> will also d/w cardiology today whether he needs one today short given breathing >> note TTE just done and will see how colleagues read it / d/w them -daily bmp/cbc -admission urine cx w/ enterococcus avium > blood cxs negative; no longer on abtx ->>>>hypotension from admission improving and now hypertensive and tachycardic (2) History of renal carcinoma: followed by urology; s/p R cryoablation w/ stable imaging; hx of significant lower urinary tract anatomic obstruction >> ensure browning flushes well (3) HTN (hypertension): -consider stopping testosterone for now if appropriate -increased bp on steroids and w/ obligate holding of some home bp meds -bp appropriate today; cont current meds -aim for 1.5L UF today (no more/lowered target) given bp, tachycardia Subjective seen on dialysis at 0920; up to 600 mL uop past 24 hrs; +orthopnea; denies chest or scapular pain; some trace edema but not bothering him. good appetite, no F. no sob; no palpitations. no abd pain or constipation. no rash Physical Exam Vital Signs (Past 24 Hours): Last Vital Signs Temp 36.4 C L 01/18/19 10:05 Pulse 105 H 01/18/19 11:20 Resp 19 01/18/19 08:06 BP 108/78 01/18/19 11:20 Pulse Ox 97 01/18/19 08:06 Constitutional: well developed and well nourished a& o x 3; nad on 02NC Eyes: EOM intact bilaterally ENMT: Ears: no external ear abnormality Nose: no external nose abnormality Mouth: + dry oral mucous membranes Neck: no nuchal rigidity Respiratory: + respiratory distress (very mild), + labored breathing and + paradoxical thoraco-abdominal movement Auscultation: + diminished lung sounds Cardiovascular: Rate/Rhythm: regular rhythm and + tachycardic (in 100s) Extremities: + edema (trace BL ankles) Gastrointestinal (Abdomen): Inspection/Auscultation: normal bowel sounds Percussion/Palpation: abdomen soft; abdomen nontender Musculoskeletal: Extremities: strength 5/5 throughout Skin: no rashes, warm and dry Neurologic: hoffman, fluent speech Psychiatric: Orientation: alert, oriented to person, oriented to place and cooperative Genitourinary: browning w/ some urine [place] darker yellow Results & Data Laboratory Results Abnormal lab results 01/17/19 01/17/19 01/17/19 Range/Units 11:52 11:52 16:14 WBC 19.29 H (4.8-10.8) K/uL RBC 3.15 L (4.7-6.1) M/uL Hgb 9.3 L (14.0-18.0) g/dL Hct 28.8 L (42-52) % RDW Std Deviation 49.8 H (36.4-46.3) fL RDW Coeff of Dung 15.2 H (11.5-14.5) % Absolute Nucleated RBC (0-0) K/uL PT (9.0-12.0) Seconds INR (0.9-1.1) Sodium 131 L (136-145) mmol/L Chloride 94 L (98-107) mmol/L BUN 52 H (7-18) mg/dl Creatinine 4.63 H* (0.6-1.4) mg/dl Glucose 171 H (70-99) mg/dl POC Glucose 152 H (70-99) Direct Bilirubin 0.4 H (0-0.2) mg/dl AST 162 H (15-37) U/L ALT 271 H (12-78) U/L Alkaline Phosphatase 120 H (45-117) U/L Albumin 3.1 L (3.4-5.0) gm/dl Globulin 4.2 H (2.5-4.0) gm/dl Albumin/Globulin Ratio 0.7 L (0.9-2) 01/17/19 01/18/19 01/18/19 Range/Units 20:39 06:39 06:39 WBC 14.51 H (4.8-10.8) K/uL RBC 3.19 L (4.7-6.1) M/uL Hgb 9.2 L (14.0-18.0) g/dL Hct 28.7 L (42-52) % RDW Std Deviation 48.1 H (36.4-46.3) fL RDW Coeff of Dung 14.7 H (11.5-14.5) % Absolute Nucleated RBC 0.02 H (0-0) K/uL PT (9.0-12.0) Seconds INR (0.9-1.1) Sodium 129 L (136-145) mmol/L Chloride 93 L (98-107) mmol/L BUN 65 H (7-18) mg/dl Creatinine 5.31 H* D (0.6-1.4) mg/dl Glucose 120 H (70-99) mg/dl POC Glucose 204 H (70-99) Direct Bilirubin 0.3 H (0-0.2) mg/dl AST 86 H (15-37) U/L ALT 209 H (12-78) U/L Alkaline Phosphatase (45-117) U/L Albumin 2.9 L (3.4-5.0) gm/dl Globulin (2.5-4.0) gm/dl Albumin/Globulin Ratio 0.7 L (0.9-2) 01/18/19 01/18/19 01/18/19 Range/Units 06:39 07:20 11:10 WBC (4.8-10.8) K/uL RBC (4.7-6.1) M/uL Hgb (14.0-18.0) g/dL Hct (42-52) % RDW Std Deviation (36.4-46.3) fL RDW Coeff of Dung (11.5-14.5) % Absolute Nucleated RBC (0-0) K/uL PT 17.4 H (9.0-12.0) Seconds INR 1.8 H (0.9-1.1) Sodium (136-145) mmol/L Chloride (98-107) mmol/L BUN (7-18) mg/dl Creatinine (0.6-1.4) mg/dl Glucose (70-99) mg/dl POC Glucose 119 H 126 H (70-99) Direct Bilirubin (0-0.2) mg/dl AST (15-37) U/L ALT (12-78) U/L Alkaline Phosphatase (45-117) U/L Albumin (3.4-5.0) gm/dl Globulin (2.5-4.0) gm/dl Albumin/Globulin Ratio (0.9-2) (1) Acute renal failure superimposed on chronic kidney disease Acute renal failure type: with acute tubular necrosis Chronic kidney disease stage: stage 3 (moderate) Qualified Code(s): N17.0 - Acute kidney failure with tubular necrosis; N18.3 - Chronic kidney disease, stage 3 (moderate)
--- NOTE | 2019-01-18 16:05 | Cardiology Progress Note ---
Date of Service January 18, 2019 Assessment & Plan (1) Pericardial effusion: Continue prednisone. Continue PPI for GI prophylaxis. Repeat echocardiogram 01/19/19. (2) Renal failure: Continue supportive care. Goal is for 1.5 L of ultrafiltration today per nephrology note. Subjective Chief complaint: Follow-up volume overload, shortness of breath, pericardial effusion Subjective: Patient feels comfortable sitting in the bedside recliner. He notes shortness of breath if he lies supine. Back on coreg. Chronic atrial fibrillation is present, that is back on Coreg his rates are trending toward improvement, currently atrial fibrillation in the range of 102 bpm. Physical Exam Vital Signs (Past 24 Hours): Last Vital Signs Temp 36.7 C 01/18/19 15:05 Pulse 95 H 01/18/19 15:05 Resp 18 01/18/19 15:05 BP 119/55 L 01/18/19 15:05 Pulse Ox 96 01/18/19 15:05 Constitutional: + ill appearing (Chronically ill in appearance) Respiratory: Auscultation: + diminished lung sounds (Decreased breath sounds at bases, no rales rhonchi or wheezing) Cardiovascular: Regular rhythm, no rub, 1/6 systolic murmur, no edema Neurologic: moves all extremities; no focal motor deficits Results & Data Laboratory Results Cardiac Enzymes 01/18/19 Range/Units 06:39 AST 86 H (15-37) U/L Coagulation 01/18/19 Range/Units 06:39 PT 17.4 H (9.0-12.0) Seconds CBC 01/18/19 Range/Units 06:39 WBC 14.51 H (4.8-10.8) K/uL RBC 3.19 L (4.7-6.1) M/uL Hgb 9.2 L (14.0-18.0) g/dL Hct 28.7 L (42-52) % Plt Count 204 (130-400) K/uL Comprehensive Metabolic Panel 01/18/19 Range/Units 06:39 Sodium 129 L (136-145) mmol/L Potassium 3.7 (3.5-5.1) mmol/L Chloride 93 L (98-107) mmol/L Carbon Dioxide 28 (21-32) mmol/L BUN 65 H (7-18) mg/dl Creatinine 5.31 H* D (0.6-1.4) mg/dl Glucose 120 H (70-99) mg/dl Calcium 9.0 (8.5-10.1) mg/dl Direct Bilirubin 0.3 H (0-0.2) mg/dl AST 86 H (15-37) U/L ALT 209 H (12-78) U/L Alkaline Phosphatase 112 (45-117) U/L Total Protein 6.9 (6.4-8.2) gm/dl Albumin 2.9 L (3.4-5.0) gm/dl Intake and Output 01/18/19 01/18/19 01/18/19 06:59 14:59 22:59 Intake Total 420 / 1300 320 / 320 Output Total 300 / 600 200 / 200 Balance 120 / 700 120 / 120 Intake: Oral 420 / 1300 320 / 320 Output: Urine Amount (Catheter) 300 / 600 200 / 200 [place]/Indwelling 300 / 600 200 / 200 Other: Hemodialysis Ultrafiltration 1,470 Amount Weight 83.3 kg 88.3 kg Patient Weight 01/19/19 06:59 Weight 88.3 kg Medications Administered Current Inpatient Medications Acetaminophen (Tylenol) 650 mg PO Q4H PRN PRN Reason: Pain or Fever Stop: 02/11/19 22:49 Last Admin: 01/14/19 00:24 Dose: 650 mg Documented by: Al Hydrox/Mg Hydrox/Simethicone (Maalox) 15 ml PO Q4H PRN PRN Reason: Dyspepsia Stop: 02/11/19 22:49 Amoxicillin (Amoxil) 500 mg PO Q24H [facility]; Protocol Stop: 01/24/19 15:59 Last Admin: 01/17/19 15:43 Dose: 500 mg Documented by: Carvedilol (Coreg) 6.25 mg PO BID [facility] Stop: 02/16/19 10:59 Last Admin: 01/18/19 08:32 Dose: 6.25 mg Documented by: Clopidogrel [facility] (Plavix) [facility] Stop: 02/12/19 08:59 Last Admin: 01/18/19 08:31 Dose: 75 mg Documented by: Cyanocobalamin (Vitamin B-12) 1,000 mcg PO QAM [facility] Stop: 02/12/19 08:59 Last Admin: 01/18/19 08:31 Dose: 1,000 mcg Documented by: Dextrose (Dextrose 50%) 25 - 50 ml IV UD PRN; Protocol PRN Reason: Hypoglycemia Protocol Stop: 02/11/19 23:03 Ferrous Gluconate (Ferrous Gluconate) 324 mg PO QAM [facility] Stop: 02/12/19 08:59 Last Admin: 01/18/19 08:30 Dose: 324 mg Documented by: Glucagon (Glucagen) 1 mg SQ UD PRN; Protocol PRN Reason: Hypoglycemia Protocol Stop: 02/11/19 23:03 Glucose (Glucose 40%) 15 - 30 gm PO UD PRN; Protocol PRN Reason: Hypoglycemia Protocol Stop: 02/11/19 23:03 Glucose (Dex4 Glucose) 4 - 8 tabs PO UD PRN; Protocol PRN Reason: Hypoglycemia Protocol Stop: 02/11/19 23:03 Heparin Sodium (Beef Lung) (Heparin Sod 10 Unit/Ml Flush) 5 ml FLUSH PRN PRN PRN Reason: Flush Stop: 02/15/19 03:31 Heparin Sodium (Porcine) (Heparin Sodium (Porcine)) 5,000 units SQ Q8 [facility] Stop: 02/14/19 09:59 Last Admin: 01/18/19 06:29 Dose: 5,000 units Documented by: Heparin Sodium (Porcine) (Heparin Iv Bolus) 1,000 units IV TODAY@0800 [facility] Stop: 01/18/19 18:00 Last Admin: 01/18/19 09:25 Dose: Not Given Documented by: Prochlorperazine 10 mg/ (Syringe) 10 mls @ 5 mls/min IV Q6H PRN PRN Reason: Nausea And Vomiting Stop: 02/14/19 00:02 Sodium Chloride (Nss 250ml) 250 mls @ 15 mls/hr IV .[id number] PRN PRN Reason: For Transfusion Stop: 02/15/19 06:51 Insulin Aspart (Novolog Flexpen) 0 units SC ACHS [facility] Stop: 02/13/19 07:59 Last Admin: 01/18/19 14:35 Dose: Not Given Documented by: Lidocaine (Lidoderm 5%) 1 patch TD QAM [facility] Stop: 02/13/19 08:59 Last Admin: 01/18/19 08:30 Dose: 1 patch Documented by: Miscellaneous (Carbohydrates For Hypoglycemia) 15 - 30 gm PO UD PRN PRN Reason: Hypoglycemia Treatment Stop: 02/11/19 23:03 Miscellaneous (Remove Lidoderm Patch) 1 ea N/A DAILY@2100 [facility] Stop: 02/13/19 20:59 Last Admin: 01/17/19 20:56 Dose: 1 ea Documented by: Miscellaneous Information () 1 ea N/A UD PRN PRN Reason: Consult Stop: 02/14/19 13:09 Nitroglycerin (Nitrostat) 0.4 mg SL UD PRN PRN Reason: Chest Pain Stop: 02/11/19 22:49 Pantoprazole Sodium (Protonix) [facility] [place] [facility] Stop: 02/17/19 08:59 Last Admin: 01/18/19 08:32 Dose: 40 mg Documented by: Prednisone (Prednisone) 40 mg PO DAILY [facility] Stop: 02/15/19 11:29 Last Admin: 01/18/19 08:31 Dose: 40 mg Documented by: Rosuvastatin Calcium (Crestor) 20 mg [facility] Stop: 02/12/19 08:59 Last Admin: 01/13/19 07:50 Dose: 20 mg Documented by: Sertraline HCl (Zoloft) 50 mg PO [facility] Stop: 02/12/19 08:59 Last Admin: 01/13/19 07:51 Dose: 50 mg Documented by: (1) Renal failure Acute renal failure type: unspecified Renal failure chronicity: acute Qualified Code(s): N17.9 - Acute kidney failure, unspecified
[2019-01-18] MEDS: AMOXICILLIN 250 MG CAP PO SCH (17:16)
--- NOTE | 2019-01-18 18:08 | Hospitalist Progress Note ---
Date of Service January 18, 2019 Assessment & Plan (1) Acute renal failure superimposed on chronic kidney disease: Urine output continues to improve, Appreciate input from nephrology, status post dialysis today electrolytes , cr /K improved post dialysis presented with oliguric acute renal failure, possible ATN Baseline creatinine 1.1, Presented with uremic symptoms of nausea vomiting, poor appetite and weakness, Creatinine elevated to more than 4/ hyperkalemia/poor urine output No improvement with IV fluids, bicarb drip/required emergent dialysis CT abdomen pelvis shows no obstructive uropathy, nephrology consulted, appreciate input Present on Admission?: Yes (2) Chronic anemia: History of anemia of chronic disease Worsening of anemia in the setting of acute renal failure Hemoglobin remained stable s/p 2 units of PRBC transfused with dialysis cont to monitor H&H transfuse to keep HB > 8 to prevent demand ischemia Present on Admission?: Yes (3) Hyperkalemia, diminished renal excretion: Potassium level normal after dialysis Secondary to acute renal failure, poor renal clearance Avoid BRIANA and arms, patient is continued with low potassium renal diet Present on Admission?: Yes (4) Pericardial effusion: /Possible secondary to uremia/ Renal failure rule out cardiac inflammation ECHO shows : Moderate to large pericardial effusion (was not evident on prior echo done a week ago) No evidence of pericardial tamponade pt is started on IV solu Medrol changed to PO prednisone 60 mg daily repeat ECHO shows improved pericardial effusion pt remains asymptomatic ( not pluritic chest pain /no hemodynamic instability ) given multiple co morbidities -best to avoid pericardial window cont conservative management with steroid and vol control with dialysis Cardiology following, appreciate input Present on Admission?: Yes (5) History of renal carcinoma: Appreciate input from urology CT abdomen pelvis shows no evidence of obstructive uropathy No urological intervention needed patient Proceed for nephrology intervention for acute renal failure Outpatient follow-up with urology Scheduled for January 2019 Present on Admission?: Yes (6) Supratherapeutic INR: History of chronic A. fib, on Coumadin Presented with supratherapeutic INR more than 9 possible secondary to poor renal clearance No evidence of active bleeding Coumadin kept on hold Given vitamin K p.o. in ER Repeat INR 4 Given 1 unit of FFP, 5 mg of p.o. vitamin K prior to dialysis catheter placement INR remains low subtherapeutic, started on subcu heparin Continue to hold Coumadin, in case patient needs placement of permanent dialysis catheter Present on Admission?: Yes (7) Atrial fibrillation: Chronic A. fib, Continue on beta-bryan Coumadin was on hold for supratherapeutic INR (8) CAD (coronary artery disease): History of coronary artery disease status post PTCA No complaint of angina Elevated troponin secondary to type II CA/demand ischemia in the setting of acute renal failure, volume overload, pericardial effusion Cardiology following Echo shows no wall motion abnormality severe ischemic cardiomyopathy, unchanged from prior, with circumferential pericardial effusion new since last echo on 11/10/2019 Patient is continued with all cardiac meds (9) DM type 2 (diabetes mellitus, type 2): Metformin on hold for acute renal failure acute illness Insulin sliding scale, pharmacy follow-up for glycemic management (10) Ischemic cardiomyopathy: History of ischemic cardiomyopathy EF of 35-40% status post AICD placement Presents with volume overload secondary to acute renal failure Lasix and losartan kept on hold hyperkalemia /acute renal failure (11) CVA (cerebral vascular accident): Continue on aspirin Plavix statin kept on hold for elevated transaminase (12) Cardiac defibrillator in place: (13) Elevated LFTs: Secondary to passive hepatic congestion due to decompensated heart failure severe ischemic cardiomyopathy in the setting of oliguric renal failure, renal failure, and appreciate input from gastroenterology, no intervention needed, continue to follow trend Lab shows elevated AST ALT, which were normal on 01/12/2019 Physical exam positive for mild right upper quadrant tenderness No rebound, No nausea vomiting Elevated transaminases could be multifactorial, acute illness/uremia/passive liver congestion secondary to volume overload in acute renal failure right upper quadrant ultrasound shows no gallbladder disease Repeat LFTs Hold statin GI evaluation appreciated (14) Elevated lactic acid level: Lactic acid level normalized No fever chills, stable vitals Lactic acid was borderline elevated yesterday, possible secondary to acute illness /hypoperfusion doubt sepsis, pro-calcitonin Within normal limit Patient is on Azactam empirically for possible UTI Order for blood and urine culture Patient does not have any cough, Chest x-ray shows no evidence of infiltration (15) Possible urinary tract infection: Urine culture positive for gram-positive cocci, enterococcus avium - pansensitive antibiotic changed to ampicillin Plan of care and patient status updated to pt's Daughter Sara over phone (16) Chronic right shoulder pain: Symptom improved with Lidoderm patch, heating pad Possible musculoskeletal, no limitation on range of motion CODE STATUS: Full code DVT prophylaxis: INR elevated Disposition: Patient was living at home with , was independent in ADLs Presents with significant functional decline, PT OT evaluation will be requested When medically stable Social service consult for discharge planning Subjective Urine output improved, Patient sit up back on chair, improved appetite finished breakfast, no complaint of nausea vomiting, no cough Still having orthopnea, no chest pain, no fever or chills Physical Exam Vital Signs (Past 24 Hours): Last Vital Signs Temp 36.7 C 01/18/19 15:05 Pulse 95 H 01/18/19 15:05 Resp 18 01/18/19 15:05 BP 119/55 L 01/18/19 15:05 Pulse Ox 96 01/18/19 15:05 Constitutional: WD/WN, vitals as above no acute distress Comfortable, very pleasant denies of any chest pain Eyes: + anicteric sclerae Neck: trachea midline, no thyromegaly Respiratory: no respiratory distress, no labored breathing and no cough Cardiovascular: Rate/Rhythm: + abnormal rhythm (Chronic A. fib) Gastrointestinal (Abdomen): Inspection/Auscultation: abdomen normal to inspection Percussion/Palpation: no hepatomegaly and no ascites Skin: no rashes, warm and dry Neurologic: PERRL, EOMI, accommodation nl, no face palsy, no dysarthria + confused Psychiatric: A+Ox3, euthymic affect (1) DM type 2 (diabetes mellitus, type 2) Chronic kidney disease stage: stage 4 (severe) Diabetes mellitus complication detail: with chronic kidney disease Diabetes mellitus complication status: with kidney complications Diabetes mellitus buttermaker helper insulin use: without buttermaker helper use Qualified Code(s): E11.22 - Type 2 diabetes mellitus with diabetic chronic kidney disease; N18.4 - Chronic kidney disease, stage 4 (severe) (2) CAD (coronary artery disease) Associated angina: without angina Coronary Disease-Associated Artery/Lesion type: [place] artery [place] vs. transplanted heart: [place] heart Qualified Code(s): I25.10 - Atherosclerotic heart disease of [place] coronary artery without angina pectoris (3) Atrial fibrillation Atrial fibrillation type: unspecified Qualified Code(s): I48.91 - Unspecified atrial fibrillation (4) Acute renal failure superimposed on chronic kidney disease Acute renal failure type: with acute tubular necrosis Chronic kidney disease stage: stage 3 (moderate) Qualified Code(s): N17.0 - Acute kidney failure with tubular necrosis; N18.3 - Chronic kidney disease, stage 3 (moderate) (5) CVA (cerebral vascular accident) CVA mechanism: unspecified Qualified Code(s): I63.9 - Cerebral infarction, unspecified
[2019-01-19] MEDS: HEPARIN SOD 5,000 UNIT/0.5 ML VIAL SQ SCH (06:12)
[2019-01-19 06:37] LABS: Hematocrit (blood only) 28.9 % (42-52); Hemoglobin 9.4 g/dL (14.0-18.0); Mean Corpuscular Hgb Conc 32.5 g/dL (32-36); Mean Corpuscular Volume 90.3 fL (80-100); Mean Platelet Volume 8.5 fL (7.4-10.4); Platelet Count 189 K/uL (130-400); RDW Coefficient of Variation 14.8 % (11.5-14.5); RDW Standard Deviation 47.4 fL (36.4-46.3); White Blood Count 14.22 K/uL (4.8-10.8)
[2019-01-19 06:45] LABS: INR 1.5 (0.9-1.1); Prothrombin Time 14.9 Seconds (9.0-12.0)
[2019-01-19 07:24] LABS: Albumin Globulin Ratio 0.7 (0.9-2); Albumin Level 2.7 gm/dl (3.4-5.0); BUN Creatinine Ratio 13.5 (10-20); Bilirubin Direct 0.4 mg/dl (0-0.2); Bilirubin,Total 0.9 mg/dl (0.2-1); Calcium 8.3 mg/dl (8.5-10.1); Creatinine Clr Calc Pharmacy 18.1 ml/min; Est GFR (African American) 18.7; Est GFR (Non-African American) 16.1; Globulin 3.8 gm/dl (2.5-4.0); Potassium 3.6 mmol/L (3.5-5.1); Total Protein 6.5 gm/dl (6.4-8.2)
[2019-01-19] MEDS: ACETAMINOPHEN 325 MG TAB PO PRN (08:19)
[2019-01-19] MEDS: CARVEDILOL 6.25 MG TAB PO SCH ×2 (08:20→20:51)
[2019-01-19] MEDS: CLOPIDOGREL BISULFATE 75 MG TAB PO SCH (08:21)
[2019-01-19] MEDS: CYANOCOBALAMIN 500 MCG TABLET (VITAMIN B-12) PO SCH (08:21)
[2019-01-19] MEDS: PANTOprazole 40 MG TAB PO SCH (08:21)
[2019-01-19] MEDS: predniSONE 20 MG TAB PO SCH (08:21)
[2019-01-19] MEDS: LIDOCAINE 5% 1 PATCH TD SCH (08:21)
[2019-01-19] MEDS: FERROUS GLUCONATE 324 MG TAB PO SCH (08:21)
[2019-01-19] MEDS: INSULIN ASPART 100 UNITS/ML 3 ML PEN SC SCH ×4 (08:22→20:54)
--- NOTE | 2019-01-19 09:03 | Nephrology Progress Note ---
Date of Service January 19, 2019 Assessment & Plan (1) Acute renal failure superimposed on chronic kidney disease: complex pt w/ baseline creatinine 1.7, 1.9 10 days prior to admission and presenting 01/13 w/ creatinine 4.7 and new hyperkalemia and new (w/in past 10 days) pericardial effusion verified on TTE (no evidence of tamponade currently) --effusion presumed at this point inflammatory more than uremic or less likely malignant/infectious. difficult w/ his cardiac profile to assess for tamponade/HF or not in this setting per cardiology. His admission urine sediment is contaminated and very concentrated - shows he had decreased po prior to presentation and may possibly be consistent w/ infection; he has chronic proteinuria/microhematuria. he is on losartan and metformin as OP; his digoxin level is not particularly elevated. No recent IV contrast or abtx or nsaids. >likeliest cause here is ischemic atn in setting of lower bp, already poorer cardiac output, and meds; glomerular processes always on differential and urine sediment w/ chronic urologic issues challenging to interpret. ck, lactate unrevealing ->>>>>as of 01/18 he is not oliguric (a good sign) and is therefore dialysis dependent for now but clinically improved somewhat>> first tx was 01/13; given improved UOP >> if this can improve/increase, MAY be able to avoid TDC on 01/20 and instead consider removing line and monitoring for recovery through weekend -plan HD tomorrow >>>would use lasix PRN only if respiratory status worsening -ordered 2 view CXR to f/u -per cardiology effusion on 01/19 again improved -cont strict I/O -eval daily for needs/renal status but will definitely plan tx on 01/20 depending on clinical status -daily bmp/cbc -admission urine cx w/ enterococcus avium > blood cxs negative; no longer on abtx (2) History of renal carcinoma: followed by urology; s/p R cryoablation w/ stable imaging; hx of significant lower urinary tract anatomic obstruction >> ensure browning flushes well (3) HTN (hypertension): -consider stopping testosterone for now if appropriate -increased bp on steroids and w/ obligate holding of some home bp meds -bp appropriate today as is HR; cont current meds Subjective feels well; 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; no palpitations, no sob; + edema; no n/v/abd pain; Physical Exam Vital Signs (Past 24 Hours): Last Vital Signs Temp 36.7 C 01/19/19 04:30 Pulse 80 01/19/19 04:30 Resp 17 01/19/19 04:30 BP 127/67 01/19/19 04:30 Pulse Ox 93 01/19/19 04:30 Constitutional: well developed and well nourished on 02nc up in chair a& 0 x 3 Eyes: EOM intact bilaterally ENMT: Ears: no external ear abnormality Nose: no external nose abnormality Mouth: + dry oral mucous membranes Neck: no nuchal rigidity Respiratory: + respiratory distress (very mild), + labored breathing and + paradoxical thoraco-abdominal movement Auscultation: + diminished lung sounds Cardiovascular: Rate/Rhythm: regular rhythm and + tachycardic (in 100s) Extremities: + edema (trace-1+ BL ankles) Gastrointestinal (Abdomen): Inspection/Auscultation: normal bowel sounds Percussion/Palpation: abdomen soft; abdomen nontender Musculoskeletal: Extremities: strength 5/5 throughout Skin: no rashes, warm and dry Psychiatric: Orientation: alert, oriented to person, oriented to place and cooperative Results & Data Laboratory Results Abnormal lab results 01/18/19 01/18/19 01/18/19 Range/Units 11:10 16:07 20:06 WBC (4.8-10.8) K/uL RBC (4.7-6.1) M/uL Hgb (14.0-18.0) g/dL Hct (42-52) % RDW Std Deviation (36.4-46.3) fL RDW Coeff of Dung (11.5-14.5) % PT (9.0-12.0) Seconds INR (0.9-1.1) Sodium (136-145) mmol/L Chloride (98-107) mmol/L BUN (7-18) mg/dl Creatinine (0.6-1.4) mg/dl Glucose (70-99) mg/dl POC Glucose 126 H 220 H 201 H (70-99) Calcium (8.5-10.1) mg/dl Direct Bilirubin (0-0.2) mg/dl AST (15-37) U/L ALT (12-78) U/L Albumin (3.4-5.0) gm/dl Albumin/Globulin Ratio (0.9-2) 01/19/19 01/19/19 01/19/19 Range/Units 06:23 06:23 06:23 WBC 14.22 H (4.8-10.8) K/uL RBC 3.20 L (4.7-6.1) M/uL Hgb 9.4 L (14.0-18.0) g/dL Hct 28.9 L (42-52) % RDW Std Deviation 47.4 H (36.4-46.3) fL RDW Coeff of Dung 14.8 H (11.5-14.5) % PT 14.9 H (9.0-12.0) Seconds INR 1.5 H (0.9-1.1) Sodium 130 L (136-145) mmol/L Chloride 96 L (98-107) mmol/L BUN 46 H (7-18) mg/dl Creatinine 3.42 H D (0.6-1.4) mg/dl Glucose 112 H (70-99) mg/dl POC Glucose (70-99) Calcium 8.3 L (8.5-10.1) mg/dl Direct Bilirubin 0.4 H (0-0.2) mg/dl AST 44 H (15-37) U/L ALT 155 H (12-78) U/L Albumin 2.7 L (3.4-5.0) gm/dl Albumin/Globulin Ratio 0.7 L (0.9-2) 01/19/19 Range/Units 07:19 WBC (4.8-10.8) K/uL RBC (4.7-6.1) M/uL Hgb (14.0-18.0) g/dL Hct (42-52) % RDW Std Deviation (36.4-46.3) fL RDW Coeff of Dung (11.5-14.5) % PT (9.0-12.0) Seconds INR (0.9-1.1) Sodium (136-145) mmol/L Chloride (98-107) mmol/L BUN (7-18) mg/dl Creatinine (0.6-1.4) mg/dl Glucose (70-99) mg/dl POC Glucose 112 H (70-99) Calcium (8.5-10.1) mg/dl Direct Bilirubin (0-0.2) mg/dl AST (15-37) U/L ALT (12-78) U/L Albumin (3.4-5.0) gm/dl Albumin/Globulin Ratio (0.9-2) (1) Acute renal failure superimposed on chronic kidney disease Acute renal failure type: with acute tubular necrosis Chronic kidney disease stage: stage 3 (moderate) Qualified Code(s): N17.0 - Acute kidney failure with tubular necrosis; N18.3 - Chronic kidney disease, stage 3 (moderate)
--- NOTE | 2019-01-19 10:15 | XRay Report ---
XR chest 2V routine HISTORY: 78 years-old Male f/u volume status/hypoxia/effusions acute shortness of breath with pleura l effusions COMPARISON: Chest radiograph 01/13/2019 TECHNIQUE: AP and lateral views of the chest FINDINGS: Cardiac silhouette is enlarged, unchanged. Mild pulmonary vascular congestion without overt pulmonary edema. Unchanged positioning of the right internal jugular central venous catheter. Calcification of the thoracic aortic arch. Unchanged single lead left subclavian pacer/AICD. Trace right and small le ft pleural effusions with persistent left greater than right bibasilar densities. Mildly improved aer ation about the left lung base. No pneumothorax. Degenerative changes of the shoulders and spine left shoulder rotator cuff calcific tendinosis. IMPRESSION: 1. Cardiomegaly with mild pulmonary vascular congestion. 2. Trace right and small left pleural effusions. 3. Mildly improved aeration of the left lung base with persistent left basilar opacities suggestive o f atelectasis or pneumonitis. The above report was generated using voice recognition software. It may contain grammatical, syntax o r spelling errors. Electronically signed by: Samy Lara M.D. 01/19/2019 10:13 AM
[2019-01-19] MEDS ORDERED: Heparin IV Low Dose *NO* Bolus IV ONE (11:24)
--- NOTE | 2019-01-19 11:29 | Cardiology Progress Note ---
Date of Service January 19, 2019 Assessment & Plan (1) Pericardial effusion: (2) Chronic systolic heart failure: Repeat echocardiogram performed this morning 01/19/19 revealed interval improvement in the pericardial effusion. He has a small residual pericardial effusion improved compared to 2 days ago with less focal fluid collection adjacent to the inferolateral wall. Chronic right ventricular chamber dilatation and RV dysfunction remains present, however this is been noted on echocardiograms dating back to 2017. Has urine output over the last 24 hours was 500 mL, with continued dialysis support. Continue prednisone 40 mg p.o. daily, he has had 4 doses thus far, and plan to transition him down to 30 mg after 7 days of therapy. Will need a long slow taper, likely over 12 weeks. Continue Protonix for GI prophylaxis. (3) Atrial fibrillation: Still has tachycardia, but trending toward improvement having reinitiated carvedilol. Digoxin has been discontinued due to his renal insufficiency. His Coumadin has been on hold having had a supratherapeutic INR, it is now down to 1.5. Will start low-dose heparin bridge without bolus, as patient may need more permanent dialysis access next week therefore will hold off on reinitiating Coumadin. Subjective Chief complaint: Follow-up shortness of breath Subjective: Patient continues to have slow but steady improvement. Breathing is stable when he is sitting in the recliner and partially sitting upright. Telemetry reveals atrial fibrillation in the range of 100 bpm. Physical Exam Vital Signs (Past 24 Hours): Last Vital Signs Temp 36.6 C 01/19/19 10:46 Pulse 77 01/19/19 10:46 Resp 19 01/19/19 10:46 BP 108/62 01/19/19 10:46 Pulse Ox 98 01/19/19 10:46 Constitutional: + ill appearing (Chronically ill in appearance) Respiratory: no cough Auscultation: + diminished lung sounds (Decreased breath sounds at bases bilaterally); no crackles and no rales Cardiovascular: Irregular rhythm, no murmurs, no rubs, lower extremity Neurologic: moves all extremities; no focal motor deficits (1) Atrial fibrillation Atrial fibrillation type: unspecified Qualified Code(s): I48.91 - Unspecified atrial fibrillation
[2019-01-19] MEDS: HEPARIN LOW DOSE DEXTROSE 25,000 UNITS/500 ML IV SCH (12:20)
--- NOTE | 2019-01-19 16:38 | Hospitalist Progress Note ---
Date of Service January 19, 2019 Assessment & Plan (1) Chronic anemia: History of anemia of chronic disease Worsening of anemia in the setting of acute renal failure s/p 2 units of PRBC transfused with dialysis post transfusion hb remains stable ~9 cont to monitor H&H transfuse to keep HB > 8 to prevent demand ischemia (2) Acute renal failure superimposed on chronic kidney disease: Urine out put continues to improve Getting intermittent dialysis Nephrology following -appreciate input presented with oliguric acute renal failure, possible ATN Baseline creatinine 1.1, had recent contrast exposure a week ago for CT abdomen pelvis Creatinine worsened to 2 Presented with uremic symptoms of nausea vomiting, poor appetite and weakness, Creatinine elevated to more than 4/ hyperkalemia/poor urine output CT abdomen pelvis shows no obstructive uropathy, nephrology consulted, appreciate input No improvement with IV fluids, bicarb drip/required emergent dialysis (3) Hyperkalemia, diminished renal excretion: K level wnl Secondary to acute renal failure, poor renal clearance Nephrology consulted, Avoid BRIANA inhibitor/ARB Continue on low potassium diet getting intermittent dialysis (4) Pericardial effusion: /Possible secondary to uremia/ Renal failure rule out cardiac inflammation repeat limited ECHO 01/19: improved pericardial effusion with reduction in size ot reports improvement of symptom -no orthopnea /SANTOS Continue on PO prednisone 60 mg daily -for possible inflammatory pericardial effusion appreciate input from Cardiology recommend gradual taper of prednisone given multiple co morbidities -best to avoid pericardial window cont conservative management with steroid and vol control with dialysis Cardiology following, appreciate input (5) History of renal carcinoma: Appreciate input from urology CT abdomen pelvis shows no evidence of obstructive uropathy No urological intervention needed patient Proceed for nephrology intervention for acute renal failure Outpatient follow-up with urology Scheduled for January 2019 (6) Supratherapeutic INR: History of chronic A. fib, on Coumadin Presented with supratherapeutic INR more than 9 possible secondary to poor renal clearance No evidence of active bleeding Coumadin kept on hold Given vitamin K p.o. in ER Repeat INR 4 Given 1 unit of FFP, 5 mg of p.o. 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 fib, Continue on beta-bryan Coumadin was on hold for supratherapeutic INR IV heparin bridge (8) CAD (coronary artery disease): History of coronary artery disease status post PTCA No complaint of angina Elevated troponin secondary to type II [place]/demand ischemia in the setting of acute renal failure, volume overload, pericardial effusion Cardiology following Echo shows no wall motion abnormality severe ischemic cardiomyopathy, unchanged from prior, with circumferential pericardial effusion new since last echo on 11/10/2019 Patient is continued with all cardiac meds (9) DM type 2 (diabetes mellitus, type 2): Metformin on hold for acute renal failure acute illness Insulin sliding scale, pharmacy follow-up for glycemic management (10) Ischemic cardiomyopathy: History of ischemic cardiomyopathy EF of 35-40% status post AICD placement Presents with volume overload secondary to acute renal failure Lasix and losartan discontinued hyperkalemia /acute renal failure (11) CVA (cerebral vascular accident): Continue on aspirin Plavix statin kept on hold for elevated transaminase continues to improve (12) Cardiac defibrillator in place: (13) Elevated LFTs: Secondary to passive hepatic congestion due to decompensated heart failure severe ischemic cardiomyopathy in the setting of oliguric renal failure, renal failure, and appreciate input from gastroenterology, no intervention needed, continue to follow trend LFTs continues to improve-as vol status /renal function /rt heart failure improved with intermittent dialysis Elevated transaminases due to t, acute illness/uremia/passive liver congestion secondary to volume overload in acute renal failure right upper quadrant ultrasound shows no gallbladder disease Repeat LFTs Hold statin GI evaluation appreciated (14) Elevated lactic acid level: Lactic acid level normalized No fever chills, stable vitals Lactic acid was borderline elevated yesterday, possible secondary to acute illness /hypoperfusion doubt sepsis, pro-calcitonin Within normal limit Patient is on Azactam empirically for possible UTI Order for blood and urine culture Patient does not have any cough, Chest x-ray shows no evidence of infiltration (15) Possible urinary tract infection: Urine culture positive for gram-positive cocci, enterococcus avium - pansensitive antibiotic changed to ampicillin complete total 7 days tx Plan of care and patient status updated to pt's Daughter Sara over phone (16) Chronic right shoulder pain: Symptom improved with Lidoderm patch, heating pad Possible musculoskeletal, no limitation on range of motion CODE STATUS: Full code DVT prophylaxis: Iv heparin Disposition: Patient was living at home with , was independent in ADLs Presents with significant functional decline, PT OT evaluation will be requested When medically stable Social service consult for discharge planning Subjective sitting up on chair appetite has improved , no complain of orthopnea no fever or chills able to walk on hallway with PT improved urine out put approx 500 ml today Physical Exam Vital Signs (Past 24 Hours): Last Vital Signs Temp 36.9 C 01/19/19 15:14 Pulse 81 01/19/19 15:14 Resp 17 01/19/19 15:14 BP 113/61 01/19/19 15:14 Pulse Ox 96 01/19/19 15:14 Constitutional: WD/WN, vitals as above no acute distress Eyes: + anicteric sclerae Neck: trachea midline, no thyromegaly Respiratory: no respiratory distress, no labored breathing and no cough Cardiovascular: Rate/Rhythm: + abnormal rhythm (chronic afib ) Extremities: normal capillary refill; no edema Gastrointestinal (Abdomen): Inspection/Auscultation: abdomen normal to inspection Percussion/Palpation: no hepatomegaly and no ascites Skin: no rashes, warm and dry Neurologic: PERRL, EOMI, accommodation nl, no face palsy, no dysarthria Psychiatric: A+Ox3, euthymic affect (1) DM type 2 (diabetes mellitus, type 2) Chronic kidney disease stage: stage 4 (severe) Diabetes mellitus complication detail: with chronic kidney disease Diabetes mellitus complication status: with kidney complications Diabetes mellitus care home insulin use: without care home use Qualified Code(s): E11.22 - Type 2 diabetes mellitus with diabetic chronic kidney disease; N18.4 - Chronic kidney disease, stage 4 (severe) (2) CAD (coronary artery disease) Associated angina: without angina Coronary Disease-Associated Artery/Lesion type: [place] artery [place] vs. transplanted heart: [place] heart Qualified Code(s): I25.10 - Atherosclerotic heart disease of [place] coronary artery without angina pectoris (3) Atrial fibrillation Atrial fibrillation type: unspecified Qualified Code(s): I48.91 - Unspecified atrial fibrillation (4) Acute renal failure superimposed on chronic kidney disease Acute renal failure type: with acute tubular necrosis Chronic kidney disease stage: stage 3 (moderate) Qualified Code(s): N17.0 - Acute kidney failure with tubular necrosis; N18.3 - Chronic kidney disease, stage 3 (moderate) (5) CVA (cerebral vascular accident) CVA mechanism: unspecified Qualified Code(s): I63.9 - Cerebral infarction, unspecified
[2019-01-19] MEDS: AMOXICILLIN 250 MG CAP PO SCH (17:38)
[2019-01-19 19:49] LABS: Partial Thromboplastin Ratio 2.4
[2019-01-20 06:25] LABS: Hematocrit (blood only) 29.1 % (42-52); Hemoglobin 9.4 g/dL (14.0-18.0); Mean Corpuscular Hgb Conc 32.3 g/dL (32-36); Mean Corpuscular Volume 90.4 fL (80-100); Mean Platelet Volume 9.1 fL (7.4-10.4); Platelet Count 180 K/uL (130-400); RDW Standard Deviation 48.6 fL (36.4-46.3); Red Blood Count 3.22 M/uL (4.7-6.1); White Blood Count 15.22 K/uL (4.8-10.8)
[2019-01-20 06:55] LABS: INR 1.3 (0.9-1.1); Partial Thromboplastin Ratio 2.4; Prothrombin Time 13.5 Seconds (9.0-12.0)
[2019-01-20 06:57] LABS: Partial Thromboplastin Time 65.6 Seconds (21.0-31.0)
[2019-01-20 07:02] LABS: Albumin Level 2.7 gm/dl (3.4-5.0); BUN Creatinine Ratio 15.5 (10-20); Bilirubin Direct 0.3 mg/dl (0-0.2); Calcium 8.4 mg/dl (8.5-10.1); Est GFR (African American) 14.9; Est GFR (Non-African American) 12.9; Potassium 3.7 mmol/L (3.5-5.1)
[2019-01-20 07:05] LABS: Albumin Globulin Ratio 0.7 (0.9-2); Bilirubin,Total 0.8 mg/dl (0.2-1); Globulin 3.8 gm/dl (2.5-4.0); Total Protein 6.5 gm/dl (6.4-8.2)
[2019-01-20] MEDS ORDERED: SODIUM CHLORIDE 0.9% 1000ML 1,000 ML IV PRN (08:12)
[2019-01-20] MEDS: INSULIN ASPART 100 UNITS/ML 3 ML PEN SC SCH ×4 (08:27→22:00)
[2019-01-20] MEDS: FERROUS GLUCONATE 324 MG TAB PO SCH (08:28)
[2019-01-20] MEDS: CARVEDILOL 6.25 MG TAB PO SCH (08:28)
[2019-01-20] MEDS: LIDOCAINE 5% 1 PATCH TD SCH (08:29)
[2019-01-20] MEDS ORDERED: HEPARIN SOD (PORCINE) 1000 UNIT/ML 10 ML VIAL IV SCH (08:30)
[2019-01-20] MEDS: predniSONE 20 MG TAB PO SCH (08:31)
[2019-01-20] MEDS: CYANOCOBALAMIN 500 MCG TABLET (VITAMIN B-12) PO SCH (08:31)
[2019-01-20] MEDS: PANTOprazole 40 MG TAB PO SCH (08:31)
[2019-01-20] MEDS: CLOPIDOGREL BISULFATE 75 MG TAB PO SCH (08:31)
--- NOTE | 2019-01-20 12:00 | Cardiology Progress Note ---
Date of Service January 20, 2019 Assessment & Plan (1) Pericardial effusion: Patient is received prednisone 40 mg daily times 5 days, and received IV Solu-Medrol today before that. We therefore reduces prednisone to 30 mg daily starting 01/21/19. Would plan on a long slow prednisone taper, at minimum, 2 months. Would keep at 30 mg for 7 days prior to stepping down to 20 mg. Ultimately tapering down to 2.5 mg. -Continue Protonix for GI prophylaxis. -Recurrent effusion has been trending toward improvement. We will plan on repeating a limited bedside echocardiogram in 2 days on 01/22/19. -Dr Garcia to assume rounding 01/21. (2) Atrial fibrillation: Rate control: Discontinue chronic carvedilol, transition to metoprolol tartrate 25 mg 3 times daily. Ultimately would likely benefit from metoprolol succinate given his history of ischemic cardiomyopathy and heart failure, but given his previous low blood pressure this admission I think it is most reasonable to start with a short acting agent and titrate. We can transition to succinate later. Stroke prophylaxis: Patient is in chronic atrial fibrillation does have a past clinical history of stroke. His INR was supratherapeutic when he arrived, and his Coumadin was held for several days. INR is 1.3 today 01/20/19, he is on a low-dose heparin bridge. Proceed with cautious anticoagulation even previous anemia requiring transfusion of 2 units of packed red blood cells. -Bridging with heparin due to anticipated potential need for tunneled dialysis catheter next week if necessary. After invasive procedure completed, will transition to Coumadin. (3) Chronic anemia: Patient with a chronic degree of anemia, hemoglobin as low as 8.1 back in May 2018, that is low 6.6 this admission on 01/16/19 requiring 2 units of packed red blood cells, currently stable at 9.4. (4) Acute on chronic systolic heart failure: Previous heart failure admission July,. Volume being controlled with dialysis at present, ultrafiltration of 1.4 L occurred per dialysis nurse note 01/19/19. (5) Acute renal failure superimposed on chronic kidney disease: Appreciate nephrology assistance in this complicated case. Continue dialysis support as necessary, for volume and electrolyte management. Subjective CC: follow up shortness of breath Patient sitting in the bedside chair. Feels well no distress. States his breathing continues to trend toward improvement. Blood pressures are stable. Atrial fibrillation noted with mildly elevated ventricular rates still present in the range of low 100s despite carvedilol. Physical Exam Vital Signs (Past 24 Hours): Last Vital Signs Temp 36.7 C 01/20/19 08:00 Pulse 102 H 01/20/19 08:00 Resp 16 01/20/19 08:00 BP 121/65 01/20/19 08:00 Pulse Ox 97 01/20/19 08:00 Constitutional: + ill appearing (Chronically ill in appearance, no acute distress) Neck: Right internal jugular dialysis catheter in place, no erythema Respiratory: Auscultation: + diminished lung sounds (Mildly decreased breath sounds bilaterally at the bases); no crackles, no rales, no rhonchi and no wheezes Cardiovascular: Irregular rhythm, tachycardic, 1/6 systolic murmur, no significant edema Neurologic: Conversant, moves all 4 extremities, no focal deficits (1) Atrial fibrillation Atrial fibrillation type: unspecified Qualified Code(s): I48.91 - Unspecified atrial fibrillation (2) Acute renal failure superimposed on chronic kidney disease Acute renal failure type: with acute tubular necrosis Chronic kidney disease stage: stage 3 (moderate) Qualified Code(s): N17.0 - Acute kidney failure with tubular necrosis; N18.3 - Chronic kidney disease, stage 3 (moderate)
[2019-01-20] MEDS: HEPARIN LOW DOSE DEXTROSE 25,000 UNITS/500 ML IV SCH (12:32)
--- NOTE | 2019-01-20 13:40 | Hospitalist Progress Note ---
Date of Service January 20, 2019 Assessment & Plan (1) Acute renal failure superimposed on chronic kidney disease: per admitting service notes: presented with oliguric acute renal failure, possible ATN Baseline creatinine 1.1, had recent contrast exposure a week ago for CT abdomen pelvis Creatinine worsened to 2 Presented with uremic symptoms of nausea vomiting, poor appetite and weakness, Creatinine elevated to more than 4/ hyperkalemia/poor urine output CT abdomen pelvis shows no obstructive uropathy, nephrology consulted, appreciate input No improvement with IV fluids, bicarb drip/required emergent dialysis 01/20/19 for HD today further recommendations per Nephro SVC (2) Chronic anemia: History of anemia of chronic disease Worsening of anemia in the setting of acute renal failure s/p 2 units of PRBC transfused with dialysis post transfusion hb remains stable ~9 (3) Hyperkalemia, diminished renal excretion: Secondary to acute renal failure on HD (4) Pericardial effusion: secondary to uremia/ Renal failure repeat limited ECHO 01/19: improved pericardial effusion with reduction in size Cardiology consulted on Prednisone 60mg po daily no chest pain recommend slow taper (5) History of renal carcinoma: Appreciate input from urology CT abdomen pelvis shows no evidence of obstructive uropathy No urological intervention needed patient Proceed for nephrology intervention for acute renal failure Outpatient follow-up with urology Scheduled for January 2019 (6) Atrial fibrillation: Chronic A. fib, changed Carvedilol to Metoprolol Tartrate monitor on Heparin drip (7) Supratherapeutic INR: History of chronic A. fib, on Coumadin Presented with supratherapeutic INR more than 9 possible secondary to poor renal clearance Given vitamin K p.o. in ER Repeat INR 4 Given 1 unit of FFP, 5 mg of p.o. 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 (8) CAD (coronary artery disease): History of coronary artery disease status post PTCA Elevated troponin secondary to type II [place]/demand ischemia in the setting of acute renal failure, volume overload, pericardial effusion Cardiology following Echo shows no wall motion abnormality severe ischemic cardiomyopathy, unchanged from prior, with circumferential pericardial effusion new since last echo on 11/10/2019 chest pain free continue usual cardiac medications (9) DM type 2 (diabetes mellitus, type 2): Metformin on hold for acute renal failure acute illness Insulin sliding scale, pharmacy follow-up for glycemic management (10) Ischemic cardiomyopathy: History of ischemic cardiomyopathy EF of 35-40% status post AICD placement Lasix and losartan discontinued volume management via HD (11) CVA (cerebral vascular accident): Continue on aspirin Plavix statin kept on hold for elevated transaminase continues to improve (12) Cardiac defibrillator in place: (13) Elevated LFTs: per Dr. Neil Secondary to passive hepatic congestion due to decompensated heart failure severe ischemic cardiomyopathy in the setting of oliguric renal failure, renal failure, and appreciate input from gastroenterology, no intervention needed, continue to follow trend LFTs continues to improve-as vol status /renal function /rt heart failure improved with intermittent dialysis Elevated transaminases due to t, acute illness/uremia/passive liver congestion secondary to volume overload in acute renal failure right upper quadrant ultrasound shows no gallbladder disease Repeat LFTs Hold statin GI evaluation appreciated (14) Elevated lactic acid level: Lactic acid level normalized No fever chills, stable vitals Lactic acid was borderline elevated yesterday, possible secondary to acute illness /hypoperfusion doubt sepsis, pro-calcitonin Within normal limit Patient is on Azactam empirically for possible UTI Order for blood and urine culture Patient does not have any cough, Chest x-ray shows no evidence of infiltration (15) Possible urinary tract infection: Urine culture positive for gram-positive cocci, enterococcus avium - pansensitive antibiotic changed to amoxiicillin day 5/ (16) Chronic right shoulder pain: Symptom improved with Lidoderm patch, heating pad Possible musculoskeletal, no limitation on range of motion CODE STATUS: Full code DVT prophylaxis: Iv heparin Disposition: Patient was living at home with , was independent in ADLs Presents with significant functional decline, PT OT evaluation will be requested When medically stable Social service consult for discharge planning Subjective ff up for acute on chronic renal failure seen resting in bed, comfortable not in distress states he feels fine overall denies chest pain, dyspnea, palpitations, dizziness urine output increasing as per patient denies other symptoms Physical Exam Vital Signs (Past 24 Hours): Last Vital Signs Temp 36.7 C 01/20/19 12:00 Pulse 110 H 01/20/19 12:00 Resp 20 01/20/19 12:00 BP 127/70 01/20/19 12:00 Pulse Ox 95 01/20/19 12:00 Physical Exam: General- oriented x 3, not in distress, speaks in sentences with no effort or accessory muscle use Eyes- anicteric Neck- no JVD Lungs- clear breath sounds bilaterally, no rales/wheezes Heart- normal rate,irregularly irregular rhythm; no murmurs Abdomen- normal bowel sounds, nondistended, soft, nontender Extremities- no pretibial edema, no calf tenderness Neuro- alert, oriented x 2; no gross focal neurologic deficits Skin- warm & dry Results & Data Laboratory Results Laboratory Results - last 24 hr 01/19/19 01/19/19 01/20/19 19:06 20:22 06:03 WBC 15.22 H RBC 3.22 L Hgb 9.4 L Hct 29.1 L MCV 90.4 MCH 29.2 MCHC 32.3 RDW Std Deviation 48.6 H RDW Coeff of Dung 15.0 H Plt Count 180 MPV 9.1 PT INR APTT 64.0 H* PTT Ratio 2.4 Sodium Potassium Chloride Carbon Dioxide Anion Gap BUN Creatinine Est Cr Clr Drug Dosing Est GFR ( Amer) Est GFR (Non-Af Amer) BUN/Creatinine Ratio Glucose POC Glucose 209 H Calcium Total Bilirubin Direct Bilirubin AST ALT Alkaline Phosphatase Total Protein Albumin Globulin Albumin/Globulin Ratio 01/20/19 01/20/19 01/20/19 06:03 06:03 07:43 WBC RBC Hgb Hct MCV MCH MCHC RDW Std Deviation RDW Coeff of Dung Plt Count MPV PT 13.5 H INR 1.3 H APTT 65.6 H* PTT Ratio 2.4 Sodium 131 L Potassium 3.7 Chloride 95 L Carbon Dioxide 26 Anion Gap 10.0 BUN 64 H Creatinine 4.12 H D Est Cr Clr Drug Dosing 15.0 Est GFR ( Amer) 14.9 Est GFR (Non-Af Amer) 12.9 BUN/Creatinine Ratio 15.5 Glucose 107 H POC Glucose 118 H Calcium 8.4 L Total Bilirubin 0.8 Direct Bilirubin 0.3 H AST 30 ALT 121 H Alkaline Phosphatase 95 Total Protein 6.5 Albumin 2.7 L Globulin 3.8 Albumin/Globulin Ratio 0.7 L 01/20/19 11:03 WBC RBC Hgb Hct MCV MCH MCHC RDW Std Deviation RDW Coeff of Dung Plt Count MPV PT INR APTT PTT Ratio Sodium Potassium Chloride Carbon Dioxide Anion Gap BUN Creatinine Est Cr Clr Drug Dosing Est GFR ( Amer) Est GFR (Non-Af Amer) BUN/Creatinine Ratio Glucose POC Glucose 112 H Calcium Total Bilirubin Direct Bilirubin AST ALT Alkaline Phosphatase Total Protein Albumin Globulin Albumin/Globulin Ratio (1) DM type 2 (diabetes mellitus, type 2) Chronic kidney disease stage: stage 4 (severe) Diabetes mellitus complication detail: with chronic kidney disease Diabetes mellitus complication status: with kidney complications 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 transplanted heart: [place] heart Qualified Code(s): I25.10 - Atherosclerotic heart disease of [place] coronary artery without angina pectoris (3) Atrial fibrillation Atrial fibrillation type: unspecified Qualified Code(s): I48.91 - Unspecified atrial fibrillation (4) Acute renal failure superimposed on chronic kidney disease Acute renal failure type: with acute tubular necrosis Chronic kidney disease stage: stage 3 (moderate) Qualified Code(s): N17.0 - Acute kidney failure with tubular necrosis; N18.3 - Chronic kidney disease, stage 3 (moderate) (5) CVA (cerebral vascular accident) CVA mechanism: unspecified Qualified Code(s): I63.9 - Cerebral infarction, unspecified
[2019-01-20] MEDS: METOPROLOL TARTRATE 25 MG TAB PO SCH ×2 (15:07→21:22)
[2019-01-20] MEDS: HEPARIN SOD (PORCINE) 1000 UNIT/ML 10 ML VIAL IV SCH ×3 (15:20→17:20)
--- NOTE | 2019-01-20 17:50 | Dialysis Progress Note ---
Date of Service January 20, 2019 Assessment & Plan (1) Acute renal failure superimposed on chronic kidney disease: complex pt w/ baseline creatinine 1.7, 1.9 10 days prior to admission and presenting 01/13 w/ creatinine 4.7 and new hyperkalemia and new (w/in past 10 days) pericardial effusion verified on TTE (no evidence of tamponade currently) -- effusion presumed inflammatory more than uremic or less likely malignant/infectious. difficult w/ his cardiac profile to assess for tamponade/HF or not in this setting per cardiology. effusion improving w/ HD though. His admission urine sediment is contaminated and very concentrated - shows he had decreased po prior to presentation and may possibly be consistent w/ infection; he has chronic proteinuria/microhematuria. he is on losartan and metformin as OP; his digoxin level is not particularly elevated. No recent IV contrast or abtx or nsaids. >likeliest cause here is ischemic atn in setting of lower bp, already poorer cardiac output, and meds; glomerular processes always on differential and urine sediment w/ chronic urologic issues challenging to interpret. ck, lactate unrevealing ->>>>>as of 01/18 he is not oliguric (a good sign) and as of today >1L UOP in 24 hrs; with luck, today will be last dialysis tx >> first tx was 01/13; will ask primary service to stop heparin today after tx, then pull temp cath -reassess daily ; may still need TDC on 01/23 but will try to fly from here w/ lasix/ supportive care -daily bmp >>>would use lasix PRN only if respiratory status worsening -cont strict I/O -eval daily for needs/renal status but will definitely plan tx on 01/20 depending on clinical status -daily bmp/cbc -admission urine cx w/ enterococcus avium > blood cxs negative; no longer on abtx (2) History of renal carcinoma: followed by urology; s/p R cryoablation w/ stable imaging; hx of significant lower urinary tract anatomic obstruction >> ensure browning flushes well (3) HTN (hypertension): -consider stopping testosterone for now if appropriate -increased bp on steroids and w/ obligate holding of some home bp meds -bp appropriate today as is HR; cont current meds w/ hold parameters Subjective on heparin bridge; walked some today; wants to walk more ; uop 1050; no sob but more restless today on tx Physical Exam Vital Signs (Past 24 Hours): Last Vital Signs Temp 36.7 C 01/20/19 14:09 Pulse 99 H 01/20/19 17:20 Resp 20 01/20/19 12:00 BP 124/53 L 01/20/19 17:20 Pulse Ox 95 01/20/19 12:00 Constitutional: well developed and well nourished on 02NC A& 0 x 3 Eyes: EOM intact bilaterally ENMT: Ears: no external ear abnormality Nose: no external nose abnormality Mouth: + dry oral mucous membranes Neck: no nuchal rigidity Respiratory: + respiratory distress (very mild) and + paradoxical thoraco- abdominal movement Auscultation: + diminished lung sounds Cardiovascular: Rate/Rhythm: regular rhythm and + tachycardic (in 90s) Extremities: + edema (trace still) Gastrointestinal (Abdomen): Inspection/Auscultation: normal bowel sounds Percussion/Palpation: abdomen soft; abdomen nontender Musculoskeletal: Extremities: strength 5/5 throughout Skin: no rashes, warm and dry Neurologic: hoffman, fluent speech Psychiatric: Orientation: alert, oriented to person, oriented to place and cooperative Genitourinary: browning w/ ample yellow/cloudy urine Results & Data Laboratory Results Abnormal lab results 01/19/19 01/19/19 01/20/19 Range/Units 19:06 20:22 06:03 WBC 15.22 H (4.8-10.8) K/uL RBC 3.22 L (4.7-6.1) M/uL Hgb 9.4 L (14.0-18.0) g/dL Hct 29.1 L (42-52) % RDW Std Deviation 48.6 H (36.4-46.3) fL RDW Coeff of Dung 15.0 H (11.5-14.5) % PT (9.0-12.0) Seconds INR (0.9-1.1) APTT 64.0 H* (21.0-31.0) Seconds Sodium (136-145) mmol/L Chloride (98-107) mmol/L BUN (7-18) mg/dl Creatinine (0.6-1.4) mg/dl Glucose (70-99) mg/dl POC Glucose 209 H (70-99) Calcium (8.5-10.1) mg/dl Direct Bilirubin (0-0.2) mg/dl ALT (12-78) U/L Albumin (3.4-5.0) gm/dl Albumin/Globulin Ratio (0.9-2) 01/20/19 01/20/19 01/20/19 Range/Units 06:03 06:03 07:43 WBC (4.8-10.8) K/uL RBC (4.7-6.1) M/uL Hgb (14.0-18.0) g/dL Hct (42-52) % RDW Std Deviation (36.4-46.3) fL RDW Coeff of Dung (11.5-14.5) % PT 13.5 H (9.0-12.0) Seconds INR 1.3 H (0.9-1.1) APTT 65.6 H* (21.0-31.0) Seconds Sodium 131 L (136-145) mmol/L Chloride 95 L (98-107) mmol/L BUN 64 H (7-18) mg/dl Creatinine 4.12 H D (0.6-1.4) mg/dl Glucose 107 H (70-99) mg/dl POC Glucose 118 H (70-99) Calcium 8.4 L (8.5-10.1) mg/dl Direct Bilirubin 0.3 H (0-0.2) mg/dl ALT 121 H (12-78) U/L Albumin 2.7 L (3.4-5.0) gm/dl Albumin/Globulin Ratio 0.7 L (0.9-2) 01/20/19 Range/Units 11:03 WBC (4.8-10.8) K/uL RBC (4.7-6.1) M/uL Hgb (14.0-18.0) g/dL Hct (42-52) % RDW Std Deviation (36.4-46.3) fL RDW Coeff of Dung (11.5-14.5) % PT (9.0-12.0) Seconds INR (0.9-1.1) APTT (21.0-31.0) Seconds Sodium (136-145) mmol/L Chloride (98-107) mmol/L BUN (7-18) mg/dl Creatinine (0.6-1.4) mg/dl Glucose (70-99) mg/dl POC Glucose 112 H (70-99) Calcium (8.5-10.1) mg/dl Direct Bilirubin (0-0.2) mg/dl ALT (12-78) U/L Albumin (3.4-5.0) gm/dl Albumin/Globulin Ratio (0.9-2) (1) Acute renal failure superimposed on chronic kidney disease Acute renal failure type: with acute tubular necrosis Chronic kidney disease stage: stage 3 (moderate) Qualified Code(s): N17.0 - Acute kidney failure with tubular necrosis; N18.3 - Chronic kidney disease, stage 3 (moderate)
[2019-01-20] MEDS: AMOXICILLIN 250 MG CAP PO SCH (18:29)
[2019-01-21 03:13] LABS: Partial Thromboplastin Ratio 2.6
[2019-01-21 03:19] LABS: Partial Thromboplastin Time 69.3 Seconds (21.0-31.0)
[2019-01-21 06:28] LABS: Hematocrit (blood only) 28.3 % (42-52); Hemoglobin 8.9 g/dL (14.0-18.0); Mean Corpuscular Hgb Conc 31.4 g/dL (32-36); Mean Corpuscular Volume 91.6 fL (80-100); Mean Platelet Volume 8.9 fL (7.4-10.4); Platelet Count 151 K/uL (130-400); RDW Coefficient of Variation 15.1 % (11.5-14.5); RDW Standard Deviation 48.9 fL (36.4-46.3); Red Blood Count 3.09 M/uL (4.7-6.1); White Blood Count 13.45 K/uL (4.8-10.8)
[2019-01-21 07:04] LABS: Albumin Level 2.6 gm/dl (3.4-5.0); BUN Creatinine Ratio 16.8 (10-20); Bilirubin Direct 0.3 mg/dl (0-0.2); Calcium 8.5 mg/dl (8.5-10.1); Creatinine Clr Calc Pharmacy 25.9 ml/min; Est GFR (African American) 28.8; Est GFR (Non-African American) 24.9; Potassium 3.5 mmol/L (3.5-5.1)
[2019-01-21 07:06] LABS: Albumin Globulin Ratio 0.7 (0.9-2); Bilirubin,Total 0.7 mg/dl (0.2-1); Globulin 3.6 gm/dl (2.5-4.0); Total Protein 6.2 gm/dl (6.4-8.2)
[2019-01-21 07:22] LABS: INR 1.3 (0.9-1.1); Partial Thromboplastin Ratio 2.3; Prothrombin Time 12.9 Seconds (9.0-12.0)
[2019-01-21 07:25] LABS: Partial Thromboplastin Time 63.2 Seconds (21.0-31.0)
[2019-01-21] MEDS: INSULIN ASPART 100 UNITS/ML 3 ML PEN SC SCH ×4 (08:13→20:59)
[2019-01-21] MEDS: FERROUS GLUCONATE 324 MG TAB PO SCH (08:15)
[2019-01-21] MEDS: METOPROLOL TARTRATE 25 MG TAB PO SCH ×3 (08:15→20:59)
[2019-01-21] MEDS: CLOPIDOGREL BISULFATE 75 MG TAB PO SCH (08:15)
[2019-01-21] MEDS: LIDOCAINE 5% 1 PATCH TD SCH (08:15)
[2019-01-21] MEDS: predniSONE 10 MG TABLET PO SCH (08:15)
[2019-01-21] MEDS: CYANOCOBALAMIN 500 MCG TABLET (VITAMIN B-12) PO SCH (08:16)
[2019-01-21] MEDS: PANTOprazole 40 MG TAB PO SCH (08:16)
--- NOTE | 2019-01-21 09:25 | Cardiology Progress Note ---
Date of Service January 21, 2019 Assessment & Plan (1) Pericardial effusion: Reduce to 30 mg daily today. 8-week taper recommended ultimately with a final dose of 2.5 mg. Continue proton pump inhibitor for GI prophylaxis. Repeat limited resting 2D transthoracic echocardiogram in the a.m. 01/21/19. (2) Atrial fibrillation: Carvedilol transition to metoprolol tartrate 25 mg 3 times daily. Will likely transition to succinate formulation at time of discharge. Intravenous heparin will be continued at this time without Coumadin in anticipation of need for tunneled dialysis catheter early next week. After all invasive procedures have been completed, Coumadin will be restarted. Goal INR 2.0-3.0. (3) Chronic anemia: Patient with a chronic degree of anemia, hemoglobin 6.6 this admission on 01/16/19 requiring 2 units of packed red blood cells, currently stable at 8.9gm/dL. (4) Acute on chronic systolic heart failure: Previous heart failure admission July,. Volume being controlled with dialysis at present. (5) Acute renal failure superimposed on chronic kidney disease: Appreciate nephrology assistance in this complicated case. Continue dialysis support as necessary, for volume and electrolyte management. Creatinine trending downward. Subjective Patient seen and examined at the bedside. Denies chest pain or unusual shortness of breath. Lower extremity edema noted. No orthopnea or PND. Creatinine trending downward. Rate controlled atrial fibrillation on telemetry. Patient appears comfortable and reading the newspaper. Offers no complaints at this time. Review of Systems All systems reviewed & are unremarkable except as noted in HPI & below Physical Exam Vital Signs (Past 24 Hours): Last Vital Signs Temp 36.7 C 01/21/19 06:53 Pulse 78 01/21/19 06:53 Resp 17 01/21/19 06:53 BP 155/91 H 01/21/19 06:53 Pulse Ox 97 01/21/19 06:53 Physical Exam: General: NAD, AAO x3, well nourished. HEENT: Normocephalic. Atraumatic. Conjunctiva pink, no scleral icterus. Neck: No carotid bruits, the c arotid upstrokes are brisk. No JVD. No HJR Heart: Irregular rhythm, normal S-1 and S-2. No murmurs or rub appreciated. PMI is not displaced. No RV heave. Lungs: Clear bilateral without rales , rhonchi, or wheeze. Abdomen: Normal bowel sounds. Soft. Nontender. No masses or organomegaly. No abdominal bruits. Extremities: No clubbing, or cyanosis. 1-2+ pitting bilateral pretibial edema with stasis changes. Pulses: radial=2/4, posterior tibial=2/4. Neuro: Cranial nerves grossly intact. No focal motor deficit. (1) Atrial fibrillation Atrial fibrillation type: unspecified Qualified Code(s): I48.91 - Unspecified atrial fibrillation (2) Acute renal failure superimposed on chronic kidney disease Acute renal failure type: with acute tubular necrosis Chronic kidney disease stage: stage 3 (moderate) Qualified Code(s): N17.0 - Acute kidney failure with tubular necrosis; N18.3 - Chronic kidney disease, stage 3 (moderate)
[2019-01-21 10:11] LABS: Partial Thromboplastin Ratio 2.2
[2019-01-21 10:17] LABS: Partial Thromboplastin Time 59.7 Seconds (21.0-31.0)
[2019-01-21] MEDS: AMOXICILLIN 250 MG CAP PO SCH (14:29)
--- NOTE | 2019-01-21 14:58 | Hospitalist Progress Note ---
Date of Service January 21, 2019 Assessment & Plan (1) Acute renal failure superimposed on chronic kidney disease: per admitting service notes: presented with oliguric acute renal failure, possible ATN Baseline creatinine 1.1, had recent contrast exposure a week ago for CT abdomen pelvis Creatinine worsened to 2 Presented with uremic symptoms of nausea vomiting, poor appetite and weakness, Creatinine elevated to more than 4/ hyperkalemia/poor urine output CT abdomen pelvis shows no obstructive uropathy, nephrology consulted, appreciate input No improvement with IV fluids, bicarb drip/required emergent dialysis s/p HD yesterday crea 2.4 today no signs/symptoms of uremia, volume overload monitor daily to assess need for possible additional HD (2) Chronic anemia: History of anemia of chronic disease Worsening of anemia in the setting of acute renal failure s/p 2 units of PRBC transfused with dialysis post transfusion hb remains stable ~9 (3) Hyperkalemia, diminished renal excretion: Secondary to acute renal failure on HD (4) Pericardial effusion: secondary to uremia/ Renal failure repeat limited ECHO 01/19: improved pericardial effusion with reduction in size Cardiology consulted on Prednisone 30 mg po daily no chest pain recommend slow taper (5) History of renal carcinoma: Appreciate input from urology CT abdomen pelvis shows no evidence of obstructive uropathy No urological intervention needed patient Proceed for nephrology intervention for acute renal failure Outpatient follow-up with urology Scheduled for January 2019 (6) Atrial fibrillation: Chronic A. fib, changed Carvedilol to Metoprolol Tartrate monitor on Heparin drip (7) Supratherapeutic INR: History of chronic A. fib, on Coumadin Presented with supratherapeutic INR more than 9 possible secondary to poor renal clearance Given vitamin K p.o. in ER Repeat INR 4 Given 1 unit of FFP, 5 mg of p.o. vitamin K prior to dialysis catheter placement INR low subtherapeutic, Iv heparin bridge /cont hold Coumadin as pt may require Perm Cath placement for fci dialysis access (8) CAD (coronary artery disease): History of coronary artery disease status post PTCA Elevated troponin secondary to type II VA/demand ischemia in the setting of acute renal failure, volume overload, pericardial effusion Cardiology following Echo shows no wall motion abnormality severe ischemic cardiomyopathy, unchanged from prior, with circumferential pericardial effusion new since last echo on 11/10/2019 chest pain free continue usual cardiac medications (9) DM type 2 (diabetes mellitus, type 2): Metformin on hold for acute renal failure acute illness Insulin sliding scale, pharmacy follow-up for glycemic management (10) Ischemic cardiomyopathy: History of ischemic cardiomyopathy EF of 35-40% status post AICD placement Lasix and losartan discontinued volume management via HD (11) CVA (cerebral vascular accident): Continue on aspirin Plavix statin kept on hold for elevated transaminase continues to improve (12) Cardiac defibrillator in place: (13) Elevated LFTs: per Dr. Neil Secondary to passive hepatic congestion due to decompensated heart failure severe ischemic cardiomyopathy in the setting of oliguric renal failure, renal failure, and appreciate input from gastroenterology, no intervention needed, continue to follow trend LFTs continues to improve-as vol status /renal function /rt heart failure improved with intermittent dialysis Elevated transaminases due to t, acute illness/uremia/passive liver congestion secondary to volume overload in acute renal failure right upper quadrant ultrasound shows no gallbladder disease Repeat LFTs: improving Hold statin GI evaluation appreciated (14) Elevated lactic acid level: Lactic acid level normalized No fever chills, stable vitals pro-calcitonin Within normal limit (15) Possible urinary tract infection: Urine culture positive for gram-positive cocci, enterococcus avium - pansensitive antibiotic changed to amoxiicillin day 6/ (16) Chronic right shoulder pain: Symptom improved with Lidoderm patch, heating pad Possible musculoskeletal, no limitation on range of motion CODE STATUS: Full code DVT prophylaxis: Iv heparin Disposition: Patient was living at home with , was independent in ADLs Presents with significant functional decline, PT OT evaluation will be requested When medically stable Social service consult for discharge planning Subjective ff up for acute renal failure seen resting in bed, comfortable states he feels fine denies dizziness, dyspnea, chest pain, palpitations no bleeding denies other symptoms Physical Exam Vital Signs (Past 24 Hours): Last Vital Signs Temp 36.6 C 01/21/19 12:00 Pulse 53 L 01/21/19 12:00 Resp 20 01/21/19 12:00 BP 130/68 01/21/19 12:00 Pulse Ox 95 01/21/19 12:00 Physical Exam: General- oriented x 3, not in distress, speaks in sentences with no effort or accessory muscle use Eyes- anicteric Neck- no JVD site of cath: no signs of hematoma, active bleedig Lungs- clear breath sounds bilaterally Heart- normal rate, irregularly irregular rhythm; no murmurs Abdomen- normal bowel sounds, nondistended, soft, nontender Extremities- no pretibial edema, no calf tenderness Neuro- alert, oriented x 3; no gross focal neurologic deficits Skin- warm & dry Results & Data Laboratory Results Laboratory Results - last 24 hr 01/20/19 01/20/19 01/21/19 18:09 21:44 02:35 WBC RBC Hgb Hct MCV MCH MCHC RDW Std Deviation RDW Coeff of Dung Plt Count MPV PT INR APTT 69.3 H* PTT Ratio 2.6 Sodium Potassium Chloride Carbon Dioxide Anion Gap BUN Creatinine Est Cr Clr Drug Dosing Est GFR ( Amer) Est GFR (Non-Af Amer) BUN/Creatinine Ratio Glucose POC Glucose 108 H 217 H Calcium Total Bilirubin Direct Bilirubin AST ALT Alkaline Phosphatase Total Protein Albumin Globulin Albumin/Globulin Ratio 01/21/19 01/21/19 01/21/19 06:06 06:06 06:06 WBC 13.45 H RBC 3.09 L Hgb 8.9 L Hct 28.3 L MCV 91.6 MCH 28.8 MCHC 31.4 L RDW Std Deviation 48.9 H RDW Coeff of Dung 15.1 H Plt Count 151 MPV 8.9 PT 12.9 H INR 1.3 H APTT 63.2 H* PTT Ratio 2.3 Sodium 134 L Potassium 3.5 Chloride 98 Carbon Dioxide 29 Anion Gap 8.0 BUN 40 H Creatinine 2.39 H D Est Cr Clr Drug Dosing 25.9 Est GFR ( Amer) 28.8 Est GFR (Non-Af Amer) 24.9 BUN/Creatinine Ratio 16.8 Glucose 116 H POC Glucose Calcium 8.5 Total Bilirubin 0.7 Direct Bilirubin 0.3 H AST 21 ALT 90 H Alkaline Phosphatase 86 Total Protein 6.2 L Albumin 2.6 L Globulin 3.6 Albumin/Globulin Ratio 0.7 L 01/21/19 01/21/19 01/21/19 07:13 09:36 10:59 WBC RBC Hgb Hct MCV MCH MCHC RDW Std Deviation RDW Coeff of Dung Plt Count MPV PT INR APTT 59.7 H* PTT Ratio 2.2 Sodium Potassium Chloride Carbon Dioxide Anion Gap BUN Creatinine Est Cr Clr Drug Dosing Est GFR ( Amer) Est GFR (Non-Af Amer) BUN/Creatinine Ratio Glucose POC Glucose 114 H 182 H Calcium Total Bilirubin Direct Bilirubin AST ALT Alkaline Phosphatase Total Protein Albumin Globulin Albumin/Globulin Ratio (1) Acute renal failure superimposed on chronic kidney disease Acute renal failure type: with acute tubular necrosis Chronic kidney disease stage: stage 3 (moderate) Qualified Code(s): N17.0 - Acute kidney failure with tubular necrosis; N18.3 - Chronic kidney disease, stage 3 (moderate) (2) Atrial fibrillation Atrial fibrillation type: unspecified Qualified Code(s): I48.91 - Unspecified atrial fibrillation (3) CAD (coronary artery disease) Coronary Disease-Associated Artery/Lesion type: [place] artery [place] vs. transplanted heart: [place] heart Associated angina: without angina Qualified Code(s): I25.10 - Atherosclerotic heart disease of [place] coronary artery without angina pectoris (4) DM type 2 (diabetes mellitus, type 2) Diabetes mellitus fci insulin use: without termite control technician use Diabetes mellitus complication status: with kidney complications Diabetes mellitus complication detail: with chronic kidney disease Chronic kidney disease stage: stage 4 (severe) Qualified Code(s): E11.22 - Type 2 diabetes mellitus with diabetic chronic kidney disease; N18.4 - Chronic kidney disease, stage 4 (severe) (5) CVA (cerebral vascular accident) CVA mechanism: unspecified Qualified Code(s): I63.9 - Cerebral infarction, unspecified
[2019-01-21] MEDS: HEPARIN LOW DOSE DEXTROSE 25,000 UNITS/500 ML IV SCH (17:33)
--- NOTE | 2019-01-21 19:31 | Nephrology Progress Note ---
Date of Service January 21, 2019 Assessment & Plan (1) Acute renal failure superimposed on chronic kidney disease: complex pt w/ baseline creatinine 1.7, 1.9 10 days prior to admission and presenting 01/13 w/ creatinine 4.7 and new hyperkalemia and new (w/in past 10 days) pericardial effusion verified on TTE (no evidence of tamponade currently) -- effusion presumed inflammatory more than uremic or less likely malignant/infectious. difficult w/ his cardiac profile to assess for tamponade/HF or not in this setting per cardiology. effusion improving w/ HD though. Uop today is 900ml and 1 litre yesterday. >likeliest cause here is ischemic atn in setting of lower bp, already poorer cardiac output, and meds; glomerular processes always on differential and urine sediment w/ chronic urologic issues challenging to interpret. -reassess daily ; I suspect he is going to need senior care HD. -daily bmp >>Likely TDC wednesday or wednesday -cont strict I/O -eval daily for needs/renal status but will definitely plan tx on 01/20 depending on clinical status -daily bmp/cbc -admission urine cx w/ enterococcus avium > blood cxs negative; no longer on abtx (2) History of renal carcinoma: followed by urology; s/p R cryoablation w/ stable imaging; hx of sign ificant lower urinary tract anatomic obstruction >> ensure browning flushes well (3) HTN (hypertension): -BP above target today. Consider increasing dose of coreg if BP persistently high. Continue other meds Subjective CKD 5 on HD for one week. He feels better today. No SOB. Tesio removed yesterday. Urine output 900ml. heparin bridge; on oxygen Review of Systems All systems reviewed & are unremarkable except as noted in HPI & below Constitutional: + malaise, + weakness and + anorexia Ear, Nose, Mouth, Throat: + dry mouth Neurologic: + generalized weakness Physical Exam Vital Signs (Past 24 Hours): Last Vital Signs Temp 36.7 C 01/21/19 15:22 Pulse 118 H 01/21/19 15:22 Resp 16 01/21/19 15:22 BP 150/88 H 01/21/19 15:22 Pulse Ox 95 01/21/19 15:22 Physical Exam: General exam: Appears comfortable, no acute distress HEENT: Pupils are equal and reactive to light Neck: No JVD, neck is supple trachea is midline Respiratory system: Clear breath sounds bilaterally. Gastrointestinal: Abdomen is soft, non distended, non tender, bowel sounds are present CVS: Regular rate and rhythm. No murmurs, rubs or gallops Musculoskeletal: No joint or muscle tenderness Extremities: Non tender, 1+ edema, peripheral pulses are present Neuro: Oriented, no tremors, no focal neurological deficits Skin: No rashes Results & Data Laboratory Results cr 2.3, k 3.5 (1) Acute renal failure superimposed on chronic kidney disease Acute renal failure type: with acute tubular necrosis Chronic kidney disease stage: stage 3 (moderate) Qualified Code(s): N17.0 - Acute kidney failure with tubular necrosis; N18.3 - Chronic kidney disease, stage 3 (moderate)
[2019-01-22 06:54] LABS: Partial Thromboplastin Ratio 1.9
[2019-01-22 07:15] LABS: Partial Thromboplastin Time 52.7 Seconds (21.0-31.0)
[2019-01-22] MEDS: INSULIN ASPART 100 UNITS/ML 3 ML PEN SC SCH ×4 (07:59→20:12)
[2019-01-22] MEDS: FERROUS GLUCONATE 324 MG TAB PO SCH (08:00)
[2019-01-22] MEDS: LIDOCAINE 5% 1 PATCH TD SCH (08:00)
[2019-01-22] MEDS: METOPROLOL TARTRATE 25 MG TAB PO SCH ×3 (08:01→20:11)
[2019-01-22] MEDS: CLOPIDOGREL BISULFATE 75 MG TAB PO SCH (08:01)
[2019-01-22] MEDS: predniSONE 10 MG TABLET PO SCH (08:01)
[2019-01-22] MEDS: CYANOCOBALAMIN 500 MCG TABLET (VITAMIN B-12) PO SCH (08:02)
[2019-01-22] MEDS: PANTOprazole 40 MG TAB PO SCH (08:02)
--- NOTE | 2019-01-22 10:11 | Hospitalist Progress Note ---
Date of Service January 22, 2019 Assessment & Plan (1) Acute renal failure superimposed on chronic kidney disease: per admitting service notes: presented with oliguric acute renal failure, possible ATN Baseline creatinine 1.1, had recent contrast exposure a week ago for CT abdomen pelvis Creatinine worsened to 2 Presented with uremic symptoms of nausea vomiting, poor appetite and weakness, Creatinine elevated to more than 4/ hyperkalemia/poor urine output CT abdomen pelvis shows no obstructive uropathy, nephrology consulted, appreciate input No improvement with IV fluids, bicarb drip/required emergent dialysis Last HD Wednesday crea 2. 8 today Lasix 40 mg IV twice a day started by nephrology service no signs/symptoms of uremia monitor daily to assess need for possible additional HD (2) Chronic anemia: History of anemia of chronic disease Worsening of anemia in the setting of acute renal failure s/p 2 units of PRBC transfused with dialysis post transfusion hb remains stable ~9 (3) Hyperkalemia, diminished renal excretion: Secondary to acute renal failure on HD (4) Pericardial effusion: secondary to uremia/ Renal failure repeat limited ECHO 01/19: improved pericardial effusion with reduction in size Cardiology consulted on Prednisone 30 mg po daily no chest pain Repeat echo 01/21/2019 showing improvement of pericardial effusion recommend slow taper (5) History of renal carcinoma: Appreciate input from urology CT abdomen pelvis shows no evidence of obstructive uropathy No urological intervention needed patient Proceed for nephrology intervention for acute renal failure Outpatient follow-up with urology Scheduled for January 2019 (6) Atrial fibrillation: Chronic A. fib, changed Carvedilol to Metoprolol Tartrate monitor on Heparin drip (7) Supratherapeutic INR: History of chronic A. fib, on Coumadin Presented with supratherapeutic INR more than 9 possible secondary to poor renal clearance Given vitamin K p.o. in ER Repeat INR 4 Given 1 unit of FFP, 5 mg of p.o. 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 (8) CAD (coronary artery disease): History of coronary artery disease status post PTCA Elevated troponin secondary to type II NC/demand ischemia in the setting of acute renal failure, volume overload, pericardial effusion Cardiology following Echo shows no wall motion abnormality severe ischemic cardiomyopathy, unchanged from prior, with circumferential pericardial effusion new since last echo on 11/10/2019 chest pain free continue usual cardiac medications (9) DM type 2 (diabetes mellitus, type 2): Metformin on hold for acute renal failure acute illness Insulin sliding scale, pharmacy follow-up for glycemic management (10) Ischemic cardiomyopathy: History of ischemic cardiomyopathy EF of 35-40% status post AICD placement Lasix and losartan discontinued volume management via HD (11) CVA (cerebral vascular accident): Continue on aspirin Plavix statin kept on hold for elevated transaminase continues to improve (12) Cardiac defibrillator in place: (13) Elevated LFTs: per Dr. Neil Secondary to passive hepatic congestion due to decompensated heart failure severe ischemic cardiomyopathy in the setting of oliguric renal failure, renal failure, and appreciate input from gastroenterology, no intervention needed, continue to follow trend LFTs continues to improve-as vol status /renal function /rt heart failure improved with intermittent dialysis Elevated transaminases due to t, acute illness/uremia/passive liver congestion secondary to volume overload in acute renal failure right upper quadrant ultrasound shows no gallbladder disease Repeat LFTs: improving Hold statin GI evaluation appreciated (14) Elevated lactic acid level: Lactic acid level normalized No fever chills, stable vitals pro-calcitonin Within normal limit (15) Possible urinary tract infection: Urine culture positive for gram-positive cocci, enterococcus avium - pansensitive antibiotic changed to amoxiicillin day 05/31 (16) Chronic right shoulder pain: Symptom improved with Lidoderm patch, heating pad Possible musculoskeletal, no limitation on range of motion CODE STATUS: Full code DVT prophylaxis: Iv heparin Disposition: Patient was living at home with , was independent in ADLs Presents with significant functional decline, PT OT evaluation will be requested When medically stable Social service consult for discharge planning Subjective Follow-up for acute renal failure Resting in chair, comfortable States he feels fine overall today Denies shortness of breath, chest pain, dizziness No problems voiding No other symptoms Physical Exam Vital Signs (Past 24 Hours): Last Vital Signs Temp 36.6 C 01/22/19 07:04 Pulse 76 01/22/19 07:04 Resp 18 01/22/19 07:04 BP 122/83 01/22/19 07:04 Pulse Ox 97 01/22/19 07:04 Physical Exam: General- oriented x 3, not in distress, speaks in sentences with no effort or accessory muscle use Eyes- anicteric Neck- no JVD Lungs- clear breath sounds bilaterally, no crackles, no wheezing Heart- normal rate, regular rhythm; no murmurs Abdomen- normal bowel sounds, nondistended, soft, nontender Extremities-mild lower extremity edema, no calf tenderness Neuro- alert, oriented x 3; no gross focal neurologic deficits Skin- warm & dry Results & Data Laboratory Results Laboratory Results - last 24 hr 01/21/19 01/22/19 01/22/19 20:56 05:55 05:55 APTT 52.7 H* PTT Ratio 1.9 Sodium 134 L Potassium 3.7 Chloride 98 Carbon Dioxide 29 Anion Gap 7.0 BUN 54 H Creatinine 2.86 H D Est Cr Clr Drug Dosing 21.6 Est GFR ( Amer) 23.2 Est GFR (Non-Af Amer) 20.0 BUN/Creatinine Ratio 18.8 Glucose 107 H POC Glucose 158 H Calcium 8.6 01/22/19 01/22/19 01/22/19 07:36 11:10 16:22 APTT PTT Ratio Sodium Potassium Chloride Carbon Dioxide Anion Gap BUN Creatinine Est Cr Clr Drug Dosing Est GFR ( Amer) Est GFR (Non-Af Amer) BUN/Creatinine Ratio Glucose POC Glucose 125 H 124 H 206 H Calcium (1) DM type 2 (diabetes mellitus, type 2) Chronic kidney disease stage: stage 4 (severe) Diabetes mellitus complication detail: with chronic kidney disease Diabetes mellitus complication status: with kidney complications 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 transplanted heart: [place] heart Qualified Code(s): I25.10 - Atherosclerotic heart disease of [place] coronary artery without angina pectoris (3) Atrial fibrillation Atrial fibrillation type: unspecified Qualified Code(s): I48.91 - Unspecified atrial fibrillation (4) Acute renal failure superimposed on chronic kidney disease Acute renal failure type: with acute tubular necrosis Chronic kidney disease stage: stage 3 (moderate) Qualified Code(s): N17.0 - Acute kidney failure with tubular necrosis; N18.3 - Chronic kidney disease, stage 3 (moderate) (5) CVA (cerebral vascular accident) CVA mechanism: unspecified Qualified Code(s): I63.9 - Cerebral infarction, unspecified
[2019-01-22 10:38] LABS: BUN Creatinine Ratio 18.8 (10-20); Calcium 8.6 mg/dl (8.5-10.1); Creatinine Clr Calc Pharmacy 21.6 ml/min; Est GFR (African American) 23.2; Potassium 3.7 mmol/L (3.5-5.1)
--- NOTE | 2019-01-22 11:33 | Cardiology Progress Note ---
Date of Service January 22, 2019 Assessment & Plan (1) Pericardial effusion: Repeat echocardiogram demonstrates improvement in the size of pericardial effusion. Continue prednisone 30 mg daily. 8-week taper recommended ultimately with a final dose of 2.5 mg. Continue proton pump inhibitor for GI prophylaxis. (2) Atrial fibrillation: Carvedilol transition to metoprolol tartrate 25 mg 3 times daily. Will likely transition to succinate formulation at time of discharge. Intravenous heparin will be continued at this time without Coumadin in anticipation of need for tunneled dialysis catheter early next week. After all invasive procedures have been completed, Coumadin will be restarted. Goal INR 2.0-3.0. Continue to monitor for any repeat hemoptysis. Repeat CBC on dialysis. (3) Chronic anemia: Patient with a chronic degree of anemia, hemoglobin 6.6 this admission on 01/16/19 requiring 2 units of packed red blood cells, currently stable at 8.9gm/dL. Repeat CBC on dialysis. (4) Acute on chronic systolic heart failure: Previous heart failure admission July,. Volume status managed via dialysis at present. (5) Acute renal failure superimposed on chronic kidney disease: Appreciate nephrology assistance in this complicated case. Continue dialysis support as necessary, for volume and electrolyte management. Creatinine stable today. Subjective Patient seen and examined at the bedside. Reports episode of blood streaked sputum this morning. Lower extremity edema more prominent today. Limited repeat resting 2D transthoracic echocardiogram demonstrates improvement in the size of pericardial effusion. Tolerating prednisone taper. Denies chest pain or shortness of breath. No dysrhythmias on telemetry. Review of Systems All systems reviewed & are unremarkable except as noted in HPI & below Physical Exam Vital Signs (Past 24 Hours): Last Vital Signs Temp 36.4 C L 01/22/19 11:12 Pulse 87 01/22/19 11:12 Resp 18 01/22/19 11:12 BP 116/59 L 01/22/19 11:12 Pulse Ox 95 01/22/19 11:12 Physical Exam: General: NAD, AAO x3, well nourished. HEENT: Normocephalic. Atraumatic. Conjunctiva pink, no scleral icterus. Neck: No carotid bruits, the carotid upstrokes are brisk. No JVD. No HJR Heart: Irregular rhythm, normal S-1 and S-2. No murmurs or rub appreciated. PMI is not displaced. No RV heave. Lungs: Clear bilateral without rales , rhonchi, or wheeze. Abdomen: Normal bowel sounds. Soft. Nontender. No masses or organomegaly. No abdominal bruits. Extremities: No clubbing, or cyanosis. 2+ pitting bilateral pretibial edema with stasis changes. Pulses: radial=2/4, posterior tibial=2/4. Neuro: Cranial nerves grossly intact. No focal motor deficit. (1) Atrial fibrillation Atrial fibrillation type: unspecified Qualified Code(s): I48.91 - Unspecified atrial fibrillation (2) Acute renal failure superimposed on chronic kidney disease Acute renal failure type: with acute tubular necrosis Chronic kidney disease stage: stage 3 (moderate) Qualified Code(s): N17.0 - Acute kidney failure with tubular necrosis; N18.3 - Chronic kidney disease, stage 3 (moderate)
--- NOTE | 2019-01-22 12:06 | Nephrology Progress Note ---
Date of Service January 22, 2019 Assessment & Plan (1) Acute renal failure superimposed on chronic kidney disease: complex pt w/ baseline creatinine 1.7, 1.9 10 days prior to admission and presenting 01/13 w/ creatinine 4.7 and new hyperkalemia and new (w/in past 10 days) pericardial effusion verified on TTE (no evidence of tamponade currently) --pericardial effusion slightly improving based on her echo. Urine output only 1.1 L. Creatinine up trending to 2.86 today >likeliest cause here is ischemic atn in setting of lower bp, already poorer cardiac output, and meds; -We will start IV Lasix 40 mg twice daily -Reassess daily for dialysis need. -cont strict I/O -eval daily for needs/renal status but will definitely plan tx on 01/20 depending on clinical status (2) History of renal carcinoma: followed by urology; s/p R cryoablation w/ stable imaging; hx of significant lower urinary tract anatomic obstruction >> ensure [place] flushes well (3) HTN (hypertension): -BP controlled. Continue current regimen. Subjective CKD 5 on HD for one week. He feels better today. No SOB. Tesio removed 01/20/19. Urine output 1100ml. heparin bridge; on oxygen. He was seated up in the chair. Daughter was at the bedside all questions were answered. Review of Systems All systems reviewed & are unremarkable except as noted in HPI & below Physical Exam Vital Signs (Past 24 Hours): Last Vital Signs Temp 36.4 C L 01/22/19 11:12 Pulse 87 01/22/19 11:12 Resp 18 01/22/19 11:12 BP 116/59 L 01/22/19 11:12 Pulse Ox 95 01/22/19 11:12 Physical Exam: General exam: Appears comfortable, no acute distress HEENT: Pupils are equal and reactive to light Neck: No JVD, neck is supple trachea is midline Respiratory system: Crackles bilaterally. Gastrointestinal: Abdomen is soft, non distended, non tender, bowel sounds are present CVS: Regular rate and rhythm. No murmurs, rubs or gallops Musculoskeletal: No joint or muscle tenderness Extremities: Non tender, 1+ edema, peripheral pulses are present Neuro: Oriented, no tremors, no focal neurological deficits Skin: No rashes Results & Data Laboratory Results Reviewed including creatinine of 2.86 from 2.3 yesterday and potassium of 3.7. Diagnostic Findings Echo showed EF of 40-45%. (1) Acute renal failure superimposed on chronic kidney disease Acute renal failure type: with acute tubular necrosis Chronic kidney disease stage: stage 3 (moderate) Qualified Code(s): N17.0 - Acute kidney failure with tubular necrosis; N18.3 - Chronic kidney disease, stage 3 (moderate)
[2019-01-22] MEDS: FUROSEMIDE 40 MG in SYRINGE 0 ML IV SCH ×2 (12:27→20:11)
[2019-01-22] MEDS: AMOXICILLIN 250 MG CAP PO SCH (16:31)
[2019-01-23] MEDS: HEPARIN LOW DOSE DEXTROSE 25,000 UNITS/500 ML IV SCH ×2 (00:36→19:53)
[2019-01-23 06:47] LABS: Partial Thromboplastin Ratio 1.9; Partial Thromboplastin Time 50.6 Seconds (21.0-31.0)
[2019-01-23] MEDS: AMOXICILLIN 250 MG CAP PO SCH ×2 (07:38→15:52)
[2019-01-23] MEDS: PANTOprazole 40 MG TAB PO SCH (07:40)
[2019-01-23] MEDS: FERROUS GLUCONATE 324 MG TAB PO SCH (07:40)
[2019-01-23] MEDS: LIDOCAINE 5% 1 PATCH TD SCH (07:41)
[2019-01-23] MEDS: CLOPIDOGREL BISULFATE 75 MG TAB PO SCH (07:41)
[2019-01-23] MEDS: CYANOCOBALAMIN 500 MCG TABLET (VITAMIN B-12) PO SCH (07:42)
[2019-01-23] MEDS: predniSONE 10 MG TABLET PO SCH (07:43)
[2019-01-23] MEDS: METOPROLOL TARTRATE 25 MG TAB PO SCH ×3 (07:43→20:47)
[2019-01-23] MEDS: INSULIN ASPART 100 UNITS/ML 3 ML PEN SC SCH ×4 (07:58→20:48)
[2019-01-23] MEDS: FUROSEMIDE 40 MG in SYRINGE 0 ML IV SCH ×2 (10:10→17:07)
[2019-01-23 12:32] LABS: BUN Creatinine Ratio 22.2 (10-20); Calcium 9.1 mg/dl (8.5-10.1); Creatinine Clr Calc Pharmacy 20.5 ml/min; Est GFR (African American) 21.7; Est GFR (Non-African American) 18.7; Potassium 3.5 mmol/L (3.5-5.1)
--- NOTE | 2019-01-23 14:19 | Cardiology Progress Note ---
Date of Service January 23, 2019 Assessment & Plan (1) Pericardial effusion: Repeat echocardiogram 01/22/19 demonstrates improvement in the size of pericardial effusion. Continue prednisone 30 mg daily until 01/27 then reduce to 20mg. 8-week taper recommended ultimately with a final dose of 2.5 mg. Continue proton pump inhibitor for GI prophylaxis. (2) Atrial fibrillation: Carvedilol transition to metoprolol tartrate 25 mg 3 times daily. Will likely transition to succinate formulation at time of discharge. Restart Coumadin pending clinical course if there is no need for invasive procedure (tunneled catheter). Intravenous heparin will be continued at this time. (3) Chronic anemia: Patient with a chronic degree of anemia, hemoglobin 6.6 this admission on 01/16/19 requiring 2 units of packed red blood cells. (4) Acute on chronic systolic heart failure: Previous heart failure admission July,. Patient appears mildly volume overloaded at this time. Continue oral Lasix per direction of nephrology. (5) Acute renal failure superimposed on chronic kidney disease: Appreciate nephrology assistance in this complicated case. Continue dialysis support as necessary, for volume and electrolyte management. Creatinine trending upward today. Subjective Patient seen and examined the bedside. Denies chest pain or unusual shortness of breath. Lower extremity edema unchanged. Nephrology planning continued observation with diuretic therapy at this time. Review of Systems All systems reviewed & are unremarkable except as noted in HPI & below Physical Exam Vital Signs (Past 24 Hours): Last Vital Signs Temp 36.7 C 01/23/19 11:42 Pulse 63 01/23/19 11:42 Resp 18 01/23/19 11:42 BP 132/68 01/23/19 11:42 Pulse Ox 96 01/23/19 11:42 Physical Exam: General: NAD, AAO x3, well nourished. HEENT: Normocephalic. Atraumatic. Conjunctiva pink, no scleral icterus. Neck: No carotid bruits, the carotid upstrokes are brisk. No JVD. No HJR Heart: Irregular rhythm, normal S-1 and S-2. No murmurs or rub appreciated. PMI is not displaced. No RV heave. Lungs: Clear bilateral without rales , rhonchi, or wheeze. Abdomen: Normal bowel sounds. Soft. Nontender. No masses or organomegaly. No abdominal bruits. Extremi ties: No clubbing, or cyanosis. 2+ pitting bilateral pretibial edema with stasis changes. Pulses: radial=2/4, posterior tibial=2/4. Neuro: Cranial nerves grossly intact. No focal motor deficit. (1) Atrial fibrillation Atrial fibrillation type: unspecified Qualified Code(s): I48.91 - Unspecified atrial fibrillation (2) Acute renal failure superimposed on chronic kidney disease Acute renal failure type: with acute tubular necrosis Chronic kidney disease stage: stage 3 (moderate) Qualified Code(s): N17.0 - Acute kidney failure with tubular necrosis; N18.3 - Chronic kidney disease, stage 3 (moderate)
--- NOTE | 2019-01-23 15:50 | Nephrology Progress Note ---
Date of Service January 23, 2019 Assessment & Plan (1) Acute renal failure superimposed on chronic kidney disease: complex pt w/ baseline creatinine 1.7, 1.9 10 days prior to admission and presenting 01/13 w/ creatinine 4.7 and new hyperkalemia and new (w/in past 10 days) pericardial effusion verified on TTE (no evidence of tamponade currently) --pericardial effusion slightly improving based on echo. Urine output only 2.1 L. Creatinine up trending to 3 and BUN of 67 today >likeliest cause here is ischemic atn in setting of lower bp, already poorer cardiac output, and meds; no indication for dialysis today. -We continue IV Lasix 40 mg twice daily -Reassess daily for dialysis need. -cont strict I/O -Hold off on tunneled catheter placement (2) History of renal carcinoma: followed by urology; s/p R cryoablation w/ stable imaging; hx of signifi cant lower urinary tract anatomic obstruction >> [place] catheter has been running well without issues or hematuria (3) HTN (hypertension): -BP controlled. Continue current regimen. Subjective CKD 5 on HD for one week. He feels better today. No SOB. Tesio removed 01/20/19. Urine output 2100ml. heparin bridge; on oxygen. Lower extremity swelling is subsiding. Review of Systems All systems reviewed & are unremarkable except as noted in HPI & below Physical Exam Vital Signs (Past 24 Hours): Last Vital Signs Temp 36.6 C 01/23/19 14:57 Pulse 107 H 01/23/19 14:57 Resp 20 01/23/19 14:57 BP 145/69 H 01/23/19 14:57 Pulse Ox 94 01/23/19 14:57 Physical Exam: General exam: Appears comfortable, no acute distress HEENT: Pupils are equal and reactive to light Neck: No JVD, neck is supple trachea is midline Respiratory system: Clear breath sounds bilaterally. Gastrointestinal: Abdomen is soft, non distended, non tender, bowel sounds are present CVS: Irregularly irregular rhythm. No murmurs, rubs or gallops Musculoskeletal: No joint or muscle tenderness Extremities: Non tender, 2+ edema, peripheral pulses are present Neuro: Oriented, no tremors, no focal neurological deficits Skin: No rashes Results & Data Laboratory Results Potassium 3.5, creatinine of 3, BUN of 67 (1) Acute renal failure superimposed on chronic kidney disease Acute renal failure type: with acute tubular necrosis Chronic kidney disease stage: stage 3 (moderate) Qualified Code(s): N17.0 - Acute kidney failure with tubular necrosis; N18.3 - Chronic kidney disease, stage 3 (moderate)
--- NOTE | 2019-01-23 18:50 | Hospitalist Progress Note ---
Date of Service January 23, 2019 Assessment & Plan (1) Acute renal failure superimposed on chronic kidney disease: per admitting service notes: presented with oliguric acute renal failure, possible ATN Baseline creatinine 1.1, had recent contrast exposure a week ago for CT abdomen pelvis Creatinine worsened to 2 Presented with uremic symptoms of nausea vomiting, poor appetite and weakness, Creatinine elevated to more than 4/ hyperkalemia/poor urine output CT abdomen pelvis shows no obstructive uropathy, nephrology consulted, appreciate input No improvement with IV fluids, bicarb drip/required emergent dialysis Last HD Wednesday crea 3.02 today Lasix 40 mg IV twice a day started by nephrology service, seems to be diuresing well no signs/symptoms of uremia leg edema improving monitor daily to assess need for possible additional HD (2) Chronic anemia: History of anemia of chronic disease Worsening of anemia in the setting of acute renal failure s/p 2 units of PRBC transfused with dialysis post transfusion hb remains stable ~9 (3) Hyperkalemia, diminished renal excretion: Secondary to acute renal failure on HD (4) Pericardial effusion: secondary to uremia/ Renal failure repeat limited ECHO 01/19: improved pericardial effusion with reduction in size Cardiology consulted on Prednisone 30 mg po daily no chest pain Repeat echo 01/21/2019 showing improvement of pericardial effusion recommend Prednisone 20mg po gerardo 01/27/19, then slow taper x 8 weeks (5) History of renal carcinoma: Appreciate input from urology CT abdomen pelvis shows no evidence of obstructive uropathy No urological intervention needed patient Proceed for nephrology intervention for acute renal failure Outpatient follow-up with urology Scheduled for January 2019 (6) Atrial fibrillation: Chronic A. fib, changed Carvedilol to Metoprolol Tartrate monitor on Heparin drip (7) Supratherapeutic INR: History of chronic A. fib, on Coumadin Presented with supratherapeutic INR more than 9 possible secondary to poor renal clearance Given vitamin K p.o. in ER Repeat INR 4 Given 1 unit of FFP, 5 mg of p.o. vitamin K prior to dialysis catheter placement INR low subtherapeutic, Iv heparin bridge /cont hold Coumadin as pt may require Perm Cath placement for exterminator termite dialysis access (8) CAD (coronary artery disease): History of coronary artery disease status post PTCA Elevated troponin secondary to type II [place]/demand ischemia in the setting of acute renal failure, volume overload, pericardial effusion Cardiology following Echo shows no wall motion abnormality severe ischemic cardiomyopathy, unchanged from prior, with circumferential pericardial effusion new since last echo on 11/10/2019 chest pain free continue usual cardiac medications (9) DM type 2 (diabetes mellitus, type 2): Metformin on hold for acute renal failure acute illness Insulin sliding scale, pharmacy follow-up for glycemic management (10) Ischemic cardiomyopathy: History of ischemic cardiomyopathy EF of 35-40% status post AICD placement losartan discontinued currently on Lasix IV (11) CVA (cerebral vascular accident): Continue on aspirin, Plavix statin kept on hold for elevated transaminase continues to improve (12) Cardiac defibrillator in place: (13) Elevated LFTs: per Dr. Neil Secondary to passive hepatic congestion due to decompensated heart failure severe ischemic cardiomyopathy in the setting of oliguric renal failure, renal failure, and appreciate input from gastroenterology, no intervention needed, continue to follow trend LFTs continues to improve-as vol status /renal function /rt heart failure improved with intermittent dialysis Elevated transaminases due to t, acute illness/uremia/passive liver congestion secondary to volume overload in acute renal failure right upper quadrant ultrasound shows no gallbladder disease Repeat LFTs: improving Hold statin GI evaluation appreciated (14) Elevated lactic acid level: Lactic acid level normalized No fever chills, stable vitals pro-calcitonin Within normal limit (15) Possible urinary tract infection: Urine culture positive for gram-positive cocci, enterococcus avium -pansen sitive antibiotic changed to amoxicillin day 07/01 (16) Chronic right shoulder pain: Symptom improved with Lidoderm patch, heating pad Possible musculoskeletal, no limitation on range of motion CODE STATUS: Full code DVT prophylaxis: Iv heparin Disposition: Patient was living at home with , was independent in ADLs Presents with significant functional decline, PT OT evaluation will be requested When medically stable Social service consult for discharge planning Subjective ff up for acute renal failure seen resting in chair, comfortable having lunch states he feels fine, just frustrated that his weight has not gone down denies shortness of breath, chest pain no dizziness denies other symptoms Physical Exam Vital Signs (Past 24 Hours): Last Vital Signs Temp 36.6 C 01/23/19 14:57 Pulse 107 H 01/23/19 14:57 Resp 20 01/23/19 14:57 BP 145/69 H 01/23/19 14:57 Pulse Ox 94 01/23/19 14:57 Physical Exam: General- oriented x 3, not in distress, speaks in sentences with no effort or accessory muscle use Eyes- anicteric Neck- no JVD Lungs- clear breath sounds bilaterally, mild rales at the right base, no wheezing Heart- normal rate, regular rhythm; no murmurs Abdomen- normal bowel sounds, nondistended, soft, nontender Extremities- mild lower leg edema bl, no calf tenderness Neuro- alert, oriented x 3; no gross focal neurologic deficits Skin- warm & dry Results & Data Laboratory Results Laboratory Results - last 24 hr 01/22/19 01/23/19 01/23/19 20:08 06:02 07:28 APTT 50.6 H* PTT Ratio 1.9 Sodium Potassium Chloride Carbon Dioxide Anion Gap BUN Creatinine Est Cr Clr Drug Dosing Est GFR ( Amer) Est GFR (Non-Af Amer) BUN/Creatinine Ratio Glucose POC Glucose 120 H 106 H Calcium 01/23/19 01/23/19 01/23/19 11:31 11:57 16:37 APTT PTT Ratio Sodium 134 L Potassium 3.5 Chloride 96 L Carbon Dioxide 29 Anion Gap 8.0 BUN 67 H Creatinine 3.02 H Est Cr Clr Drug Dosing 20.5 Est GFR ( Amer) 21.7 Est GFR (Non-Af Amer) 18.7 BUN/Creatinine Ratio 22.2 H Glucose 183 H POC Glucose 187 H 219 H Calcium 9.1 (1) Acute renal failure superimposed on chronic kidney disease Acute renal failure type: with acute tubular necrosis Chronic kidney disease stage: stage 3 (moderate) Qualified Code(s): N17.0 - Acute kidney failure with tubular necrosis; N18.3 - Chronic kidney disease, stage 3 (moderate) (2) Atrial fibrillation Atrial fibrillation type: unspecified Qualified Code(s): I48.91 - Unspecified atrial fibrillation (3) CAD (coronary artery disease) Coronary Disease-Associated Artery/Lesion type: [place] artery [place] vs. transplanted heart: [place] heart Associated angina: without angina Qualified Code(s): I25.10 - Atherosclerotic heart disease of [place] coronary artery without angina pectoris (4) DM type 2 (diabetes mellitus, type 2) Diabetes mellitus exterminator termite insulin use: without exterminator termite use Diabetes mellitus complication status: with kidney complications Diabetes mellitus complication detail: with chronic kidney disease Chronic kidney disease stage: stage 4 (severe) Qualified Code(s): E11.22 - Type 2 diabetes mellitus with diabetic chronic kidney disease; N18.4 - Chronic kidney disease, stage 4 (severe) (5) CVA (cerebral vascular accident) CVA mechanism: unspecified Qualified Code(s): I63.9 - Cerebral infarction, unspecified
[2019-01-24] MEDS: HEPARIN LOW DOSE DEXTROSE 25,000 UNITS/500 ML IV SCH (06:05)
[2019-01-24 07:10] LABS: Basophils # (auto) 0.01 K/uL (0-0.2); Basophils % (auto) 0.1 %; Eosinophils # (auto) 0.24 K/uL (0-0.5); Eosinophils % (auto) 2.2 %; Hematocrit (blood only) 28.5 % (42-52); Hemoglobin 9.1 g/dL (14.0-18.0); Immature Granulocytes # (auto) 0.08 K/uL (0.00-0.02); Immature Granulocytes % (auto) 0.7 %; Lymphocytes # (auto) 1.66 K/uL (1.2-3.4); Mean Corpuscular Hgb Conc 31.9 g/dL (32-36); Mean Corpuscular Volume 91.6 fL (80-100); Mean Platelet Volume 9.5 fL (7.4-10.4); Monocytes # (auto) 1.96 K/uL (0.11-0.59); Monocytes % (auto) 17.7 %; Neutrophils % (auto) 64.3 %; Platelet Count 172 K/uL (130-400); RDW Coefficient of Variation 15.9 % (11.5-14.5); RDW Standard Deviation 51.6 fL (36.4-46.3); Red Blood Count 3.11 M/uL (4.7-6.1); White Blood Count 11.05 K/uL (4.8-10.8)
[2019-01-24 07:31] LABS: Partial Thromboplastin Ratio 1.9; Partial Thromboplastin Time 50.7 Seconds (21.0-31.0)
[2019-01-24 07:45] LABS: BUN Creatinine Ratio 21.4 (10-20); Calcium 9.1 mg/dl (8.5-10.1); Creatinine Clr Calc Pharmacy 19.5 ml/min; Est GFR (African American) 20.5; Est GFR (Non-African American) 17.7; Potassium 3.2 mmol/L (3.5-5.1)
[2019-01-24] MEDS: INSULIN ASPART 100 UNITS/ML 3 ML PEN SC SCH ×4 (08:29→21:02)
[2019-01-24] MEDS: FUROSEMIDE 40 MG in SYRINGE 0 ML IV SCH ×2 (08:30→18:10)
[2019-01-24] MEDS: METOPROLOL TARTRATE 25 MG TAB PO SCH ×3 (08:30→21:00)
[2019-01-24] MEDS: predniSONE 10 MG TABLET PO SCH (08:31)
[2019-01-24] MEDS: LIDOCAINE 5% 1 PATCH TD SCH (08:31)
[2019-01-24] MEDS: CLOPIDOGREL BISULFATE 75 MG TAB PO SCH (08:31)
[2019-01-24] MEDS: CYANOCOBALAMIN 500 MCG TABLET (VITAMIN B-12) PO SCH (08:31)
[2019-01-24] MEDS: PANTOprazole 40 MG TAB PO SCH (08:31)
[2019-01-24] MEDS: FERROUS GLUCONATE 324 MG TAB PO SCH (08:31)
--- NOTE | 2019-01-24 11:09 | Hospitalist Progress Note ---
Date of Service January 24, 2019 Assessment & Plan (1) Acute renal failure superimposed on chronic kidney disease: per admitting service notes: presented with oliguric acute renal failure, possible ATN Baseline creatinine 1.1, had recent contrast exposure a week ago for CT abdomen pelvis Creatinine worsened to 2 Presented with uremic symptoms of nausea vomiting, poor appetite and weakness, Creatinine elevated to more than 4/ hyperkalemia/poor urine output CT abdomen pelvis shows no obstructive uropathy, nephrology consulted, appreciate input No improvement with IV fluids, bicarb drip/required emergent dialysis Last HD Wednesday crea slowly increasing 3.1, today Lasix 40 mg IV twice a day started by nephrology service,diuresing well no signs/symptoms of uremia leg edema improving monitor daily to assess need for possible additional HD discussed with Dr. Sánchez (2) Chronic anemia: History of anemia of chronic disease Worsening of anemia in the setting of acute renal failure s/p 2 units of PRBC transfused with dialysis post transfusion hb remains stable ~9 (3) Hyperkalemia, diminished renal excretion: Secondary to acute renal failure on HD K ordered today for hypokalemia (4) Pericardial effusion: secondary to uremia/ Renal failure repeat limited ECHO 01/19: improved pericardial effusion with reduction in size Cardiology consulted on Prednisone 30 mg po daily no chest pain Repeat echo 01/21/2019 showing improvement of pericardial effusion recommend Prednisone 20mg po gerardo 01/27/19, then slow taper x 8 weeks (5) History of renal carcinoma: Appreciate input from urology CT abdomen pelvis shows no evidence of obstructive uropathy No urological intervention needed patient Proceed for nephrology intervention for acute renal failure Outpatient follow-up with urology Scheduled for January 2019 (6) Atrial fibrillation: Chronic A. fib, changed Carvedilol to Metoprolol Tartrate monitor on Heparin drip discussed with sandrita Small transition to coumadin, no plans for HD cath at this time (7) Supratherapeutic INR: History of chronic A. fib, on Coumadin Presented with supratherapeutic INR more than 9 possible secondary to poor renal clearance Given vitamin K p.o. in ER Repeat INR 4 Given 1 unit of FFP, 5 mg of p.o. vitamin K prior to dialysis catheter placement INR low subtherapeutic, Iv heparin bridge discussed with sandrita Small transition to coumadin, no plans for HD cath at this time (8) CAD (coronary artery disease): History of coronary artery disease status post PTCA Elevated troponin secondary to type II [place]/demand ischemia in the setting of ac [place] renal failure, volume overload, pericardial effusion Cardiology following Echo shows no wall motion abnormality severe ischemic cardiomyopathy, unchanged from prior, with circumferential pericardial effusion new since last echo on 11/10/2019 chest pain free continue usual cardiac medications (9) DM type 2 (diabetes mellitus, type 2): Metformin on hold for acute renal failure acute illness Insulin sliding scale, pharmacy follow-up for glycemic management (10) Ischemic cardiomyopathy: History of ischemic cardiomyopathy EF of 35-40% status post AICD placement losartan discontinued currently on Lasix IV (11) CVA (cerebral vascular accident): Continue on aspirin, Plavix statin kept on hold for elevated transaminase continues to improve (12) Cardiac defibrillator in place: (13) Elevated LFTs: per Dr. Neil Secondary to passive hepatic congestion due to decompensated heart failure severe ischemic cardiomyopathy in the setting of oliguric renal failure, renal failure, and appreciate input from gastroenterology, no intervention needed, continue to follow trend LFTs continues to improve-as vol status /renal function /rt heart failure improved with intermittent dialysis Elevated transaminases due to t, acute illness/uremia/passive liver congestion secondary to volume overload in acute renal failure right upper quadrant ultrasound shows no gallbladder disease Repeat LFTs: improving Hold statin GI evaluation appreciated (14) Elevated lactic acid level: Lactic acid level normalized No fever chills, stable vitals pro-calcitonin Within normal limit (15) Possible urinary tract infection: Urine culture positive for gram-positive cocci, enterococcus avium - pansensitive antibiotic changed to amoxicillin day 07/01 (16) Chronic right shoulder pain: Symptom improved with Lidoderm patch, heating pad Possible musculoskeletal, no limitation on range of motion CODE STATUS: Full code DVT prophylaxis: Iv heparin Disposition: Patient was living at home with , was independent in ADLs Social service consult for discharge planning Subjective ff up for acute renal failure seen resting in bedside chair comfortable pleasant states he continues to feel improved denies chest pain, dyspnea, dizziness ambulates with no problems no other symptoms Physical Exam Vital Signs (Past 24 Hours): Last Vital Signs Temp 36.5 C 01/24/19 07:20 Pulse 85 01/24/19 07:20 Resp 18 03/05/19 07:20 BP 120/80 01/24/19 07:20 Pulse Ox 93 01/24/19 07:20 Physical Exam: General- oriented x 3, not in distress, speaks in sentences with no effort or accessory muscle use Eyes- anicteric Neck- no JVD Lungs- clear BS, no rales/wheezes bilaterally Heart- normal rate, irregularly irregular rhythm; no murmurs Abdomen- normal bowel sounds, nondistended, soft, nontender Extremities- trace pretibial edema, no calf tenderness Neuro- alert, oriented x 3; no gross focal neurologic deficits Skin- warm & dry Results & Data Laboratory Results Laboratory Results - last 24 hr 01/24/19 01/24/19 01/24/19 11:38 13:06 16:28 PT 12.6 H INR 1.2 H APTT PTT Ratio Sodium Potassium Chloride Carbon Dioxide Anion Gap BUN Creatinine Est Cr Clr Drug Dosing Est GFR ( Amer) Est GFR (Non-Af Amer) BUN/Creatinine Ratio Glucose POC Glucose 128 H 244 H Calcium 01/24/19 01/25/19 01/25/19 20:27 06:37 06:37 PT 12.1 H INR 1.2 H APTT 46.6 H* PTT Ratio 1.7 Sodium 137 Potassium 3.7 D Chloride 99 Carbon Dioxide 31 Anion Gap 7.0 BUN 71 H Creatinine 3.42 H Est Cr Clr Drug Dosing 18.1 Est GFR ( Amer) 18.7 Est GFR (Non-Af Amer) 16.1 BUN/Creatinine Ratio 20.8 H Glucose 127 H POC Glucose 226 H Calcium 9.2 01/25/19 07:32 PT INR APTT PTT Ratio Sodium Potassium Chloride Carbon Dioxide Anion Gap BUN Creatinine Est Cr Clr Drug Dosing Est GFR ( Amer) Est GFR (Non-Af Amer) BUN/Creatinine Ratio Glucose POC Glucose 127 H Calcium (1) DM type 2 (diabetes mellitus, type 2) Chronic kidney disease stage: stage 4 (severe) Diabetes mellitus complication detail: with chronic kidney disease Diabetes mellitus complication status: with kidney complications Diabetes mellitus long term care social worker insulin use: without long term care social worker use Qualified Code(s): E11.22 - Type 2 diabetes mellitus with diabetic chronic kidney disease; N18.4 - Chronic kidney disease, stage 4 (severe) (2) CAD (coronary artery disease) Associated angina: without angina Coronary Disease-Associated Artery/Lesion type: [place] artery [place] vs. transplanted heart: [place] heart Qualified Code(s): I25.10 - Atherosclerotic heart disease of [place] coronary artery without angina pectoris (3) Atrial fibrillation Atrial fibrillation type: unspecified Qualified Code(s): I48.91 - Unspecified atrial fibrillation (4) Acute renal failure superimposed on chronic kidney disease Acute renal failure type: with acute tubular necrosis Chronic kidney disease stage: stage 3 (moderate) Qualified Code(s): N17.0 - Acute kidney failure with tubular necrosis; N18.3 - Chronic kidney disease, stage 3 (moderate) (5) CVA (cerebral vascular accident) CVA mechanism: unspecified Qualified Code(s): I63.9 - Cerebral infarction, unspecified
[2019-01-24 13:34] LABS: INR 1.2 (0.9-1.1); Prothrombin Time 12.6 Seconds (9.0-12.0)
[2019-01-24] MEDS: POTASSIUM CHLORIDE 20 MEQ TABCR PO SCH (13:41)
--- NOTE | 2019-01-24 17:23 | Nephrology Progress Note ---
Date of Service January 24, 2019 Assessment & Plan (1) Acute renal failure superimposed on chronic kidney disease: complex pt w/ baseline creatinine 1.7, 1.9 10 days prior to admission and presenting 01/13 w/ creatinine 4.7 and new hyperkalemia and new (w/in past 10 days) pericardial effusion verified on TTE (no evidence of tamponade currently) --pericardial effusion slightly improving based on echo. Urine output only 2.6 L. Creatinine up trending to 3.1 and BUN of 68 today. Creatinine appears to be leveling off. >likeliest cause here is ischemic atn in setting of lower bp, already poorer cardiac output, and meds; no indication for dialysis today. -We continue IV Lasix 40 mg twice daily. If creatinine is the same tomorrow, we will switch to p.o. torsemide 60 mg daily. -Reassess daily for dialysis need. -cont strict I/O -No need for tunneled catheter placement. Patient can be put back on Coumadin -We will start p.o. potassium chloride 40 mEq daily. (2) History of renal carcinoma: followed by urology; s/p R cryoablation w/ stable imaging; hx of significant lower urinary tract anatomic obstruction >> Polanco catheter has been running well without issues or hematuria (3) HTN (hypertension): -BP controlled. Continue current regimen. Subjective CKD 5 on HD for one week. He feels better today. No SOB. Tesio removed 01/20/19. Urine output 2600ml. heparin bridge; on oxygen. Lower extremity swelling is subsiding. Review of Systems All systems reviewed & are unremarkable except as noted in HPI & below Physical Exam Vital Signs (Past 24 Hours): Last Vital Signs Temp 36.5 C 01/24/19 16:02 Pulse 103 H 01/24/19 16:02 Resp 20 01/24/19 16:02 BP 109/70 01/24/19 16:02 Pulse Ox 95 01/24/19 16:02 Physical Exam: General exam: Appears comfortable, no acute distress HEENT: Pupils are equal and reactive to light Neck: No JVD, neck is supple trachea is midline Respiratory system: Crackles bilaterally. Gastrointestinal: Abdomen is soft, non distended, non tender, bowel sounds are present CVS: Regular rate and rhythm. No murmurs, rubs or gallops Musculoskeletal: No joint or muscle tenderness Extremities: Non tender, 1+ edema, peripheral pulses are present Neuro: Oriented, no tremors, no focal neurological deficits Skin: No rashes Results & Data Laboratory Results Potassium 3.2, creatinine 3.1, BUN 68 (1) Acute renal failure superimposed on chronic kidney disease Acute renal failure type: with acute tubular necrosis Chronic kidney disease stage: stage 3 (moderate) Qualified Code(s): N17.0 - Acute kidney failure with tubular necrosis; N18.3 - Chronic kidney disease, stage 3 (moderate)
[2019-01-24] MEDS ORDERED: WARFARIN SOD 5 MG TAB PO SCH (17:45)
[2019-01-24] MEDS: AMOXICILLIN 250 MG CAP PO SCH (18:10)
[2019-01-25] MEDS ORDERED: METOPROLOL TARTRATE 1 MG/ML VIAL IV ONE ×2 (05:02→05:04)
[2019-01-25 07:22] LABS: INR 1.2 (0.9-1.1); Partial Thromboplastin Ratio 1.7; Prothrombin Time 12.1 Seconds (9.0-12.0)
[2019-01-25 07:36] LABS: BUN Creatinine Ratio 20.8 (10-20); Calcium 9.2 mg/dl (8.5-10.1); Creatinine Clr Calc Pharmacy 18.1 ml/min; Est GFR (African American) 18.7; Est GFR (Non-African American) 16.1; Potassium 3.7 mmol/L (3.5-5.1)
[2019-01-25 07:50] LABS: Partial Thromboplastin Time 46.6 Seconds (21.0-31.0)
[2019-01-25] MEDS: INSULIN ASPART 100 UNITS/ML 3 ML PEN SC SCH ×4 (08:46→20:44)
[2019-01-25] MEDS: PANTOprazole 40 MG TAB PO SCH (08:47)
[2019-01-25] MEDS: METOPROLOL TARTRATE 25 MG TAB PO SCH ×3 (08:47→23:15)
[2019-01-25] MEDS: predniSONE 10 MG TABLET PO SCH (08:48)
[2019-01-25] MEDS: CYANOCOBALAMIN 500 MCG TABLET (VITAMIN B-12) PO SCH (08:49)
[2019-01-25] MEDS: CLOPIDOGREL BISULFATE 75 MG TAB PO SCH (08:49)
[2019-01-25] MEDS: FERROUS GLUCONATE 324 MG TAB PO SCH (08:49)
[2019-01-25] MEDS: LIDOCAINE 5% 1 PATCH TD SCH (08:50)
[2019-01-25] MEDS ORDERED: Nursing to Pharmacy Communication ONE (10:00)
[2019-01-25] MEDS: POTASSIUM CHLORIDE 20 MEQ TABCR PO SCH (10:02)
[2019-01-25] MEDS: FUROSEMIDE 40 MG in SYRINGE 0 ML IV SCH ×2 (10:03→17:03)
[2019-01-25] MEDS: HEPARIN LOW DOSE DEXTROSE 25,000 UNITS/500 ML IV SCH (11:58)
--- NOTE | 2019-01-25 13:06 | Cardiology Progress Note ---
Date of Service January 25, 2019 Assessment & Plan (1) Pericardial effusion: Repeat echocardiogram 01/22/19 demonstrates improvement in the size of pericardial effusion. Continue prednisone 30 mg daily until 01/27 then reduce to 20mg. 8-week taper recommended ultimately with a final dose of 2.5 mg. Continue proton pump inhibitor for GI prophylaxis. (2) Atrial fibrillation: Heart rates remain elevated. Will titrate metoprolol to 25 mg every 6 hours. Plan transition to succinate formulation at the time of discharge. Coumadin restarted for goal INR of 2.0-3.0. Recommend heparin bridging due to history of cerebrovascular accident. (3) Chronic anemia: Patient with a chronic degree of anemia, hemoglobin 6.6 this admission on 01/16/19 requiring 2 units of packed red blood cells. Most recent hemoglobin stable 9.1 gm/dL 01/24/19. (4) Acute on chronic systolic heart failure: Previous heart failure admission July,. Patient appears mildly volume overloaded at this time. Continue oral Lasix per direction of nephrology. (5) Acute renal failure superimposed on chronic kidney disease: Appreciate nephrology assistance in this complicated case. Continue dialysis support as necessary, for volume and electrolyte management. Creatinine has plateaued in the range of 3.0-3.5 Subjective Patient seen and examined at the bedside. Lower extremity edema unchanged. Nephrology is not planning further dialysis treatments at this time. Coumadin restarted. Telemetry demonstrates atrial fibrillation with heart rates ranging from 100-110 bpm. Patient denies any palpitations or chest discomfort. No orthopnea or PND. Review of Systems All systems reviewed & are unremarkable except as noted in HPI & below Physical Exam Vital Signs (Past 24 Hours): Last Vital Signs Temp 36.8 C 01/25/19 11:53 Pulse 68 01/25/19 11:53 Resp 18 01/25/19 11:53 BP 125/68 01/25/19 11:53 Pulse Ox 95 01/25/19 11:53 Physical Exam: General: NAD, AAO x3, well nourished. HEENT: Normocephalic. Atraumatic. Conjunctiva pink, no scleral icterus. Neck: No carotid bruits, the carotid upstrokes are brisk. No JVD. No HJR Heart: Irregular rhythm, borderline tachycardic, normal S-1 and S-2. No murmurs or rub appreciated. PMI is not displaced. No RV heave. Lungs: Clear bilateral without rales , rhonchi, or wheeze. Abdomen: Normal bowel sounds. Soft. Nontender. No masses or organomegaly. No abdominal bruits. Extremities: No clubbing, or cyanosis. 2+ pitting bilateral pretibial edema with stasis changes. Pulses: radial=2/4, posterior tibial=2/4. Neuro: Cranial nerves grossly intact. No focal motor deficit. (1) Atrial fibrillation Atrial fibrillation type: unspecified Qualified Code(s): I48.91 - Unspecified atrial fibrillation (2) Acute renal failure superimposed on chronic kidney disease Acute renal failure type: with acute tubular necrosis Chronic kidney disease stage: stage 3 (moderate) Qualified Code(s): N17.0 - Acute kidney failure with tubular necrosis; N18.3 - Chronic kidney disease, stage 3 (moderate)
--- NOTE | 2019-01-25 13:49 | Nephrology Progress Note ---
Date of Service January 25, 2019 Assessment & Plan (1) Acute renal failure superimposed on chronic kidney disease: complex pt w/ baseline creatinine 1.7, 1.9 10 days prior to admission and presentied 01/13 w/ creatinine 4.7, hyperkalemia and pericardial effusion verified on TTE. He required dialysis but has not been on dialysis for about a week now. Urine output 2.2 L net -1 L. Creatinine up trending to 3.4 and BUN of 71 today. Creatinine appears to be leveling off. >likeliest cause here is ischemic atn in setting of lower bp, already poorer cardiac output, and meds; no indication for dialysis today. -We continue IV Lasix 40 mg twice daily. If creatinine is the same tomorrow, we will switch to p.o. torsemide 60 mg daily. -Reassess daily for dialysis need. -cont strict I/O -No need for tunneled catheter placement. Patient can be put back on Coumadin -Potassium is better today. Can hold off on potassium chloride supplementation (2) History of renal carcinoma: followed by urology; s/p R cryoablation w/ stable imaging; hx of signific ant lower urinary tract anatomic obstruction >> Polanco catheter has been running well without issues or hematuria (3) HTN (hypertension): -BP controlled. Continue current regimen. Subjective CKD 5 on HD for one week. He feels better today. No SOB. Tesio removed 01/20/19. Urine output 2200ml. heparin bridge; off oxygen. Lower extremity swelling is subsiding. Had episode of rapid A. fib in the morning but now rate controlled. Creatinine is up trending to 3.4 today. Review of Systems All systems reviewed & are unremarkable except as noted in HPI & below Physical Exam Vital Signs (Past 24 Hours): Last Vital Signs Temp 36.8 C 01/25/19 11:53 Pulse 68 01/25/19 11:53 Resp 18 01/25/19 11:53 BP 125/68 01/25/19 11:53 Pulse Ox 95 01/25/19 11:53 Physical Exam: General exam: Appears comfortable, no acute distress HEENT: Pupils are equal and reactive to light Neck: No JVD, neck is supple trachea is midline Respiratory system: Clear breath sounds bilaterally. Gastrointestinal: Abdomen is soft, non distended, non tender, bowel sounds are present CVS: Irregularly irregular rhythm. No murmurs, rubs or gallops Musculoskeletal: No joint or muscle tenderness Extremities: Non tender, 1+ edema, peripheral pulses are present Neuro: Oriented, no tremors, no focal neurological deficits Skin: No rashes Results & Data Laboratory Results Creatinine 3.4, BUN 71, potassium 3.7 (1) Acute renal failure superimposed on chronic kidney disease Acute renal failure type: with acute tubular necrosis Chronic kidney disease stage: stage 3 (moderate) Qualified Code(s): N17.0 - Acute kidney failure with tubular necrosis; N18.3 - Chronic kidney disease, stage 3 (moderate)
[2019-01-25] MEDS: AMOXICILLIN 250 MG CAP PO SCH (15:47)
[2019-01-25] MEDS ORDERED: WARFARIN SOD 7.5 MG TAB PO SCH ×2 (16:00)
[2019-01-25] MEDS ORDERED: METOPROLOL TARTRATE 1 MG/ML VIAL IV STA (20:05)
--- NOTE | 2019-01-25 21:17 | Hospitalist Progress Note ---
Date of Service January 25, 2019 Assessment & Plan (1) Acute renal failure superimposed on chronic kidney disease: per admitting service notes: presented with oliguric acute renal failure, possible ATN Baseline creatinine 1.1, had recent contrast exposure a week ago for CT abdomen pelvis Creatinine worsened to 2 Presented with uremic symptoms of nausea vomiting, poor appetite and weakness, Creatinine elevated to more than 4/ hyperkalemia/poor urine output CT abdomen pelvis shows no obstructive uropathy, nephrology consulted, appreciate input No improvement with IV fluids, bicarb drip/required emergent dialysis Last HD Wednesday currently on Lasix IV BID crea slowly increasing 3.4 today but with good urine output no signs/symptoms of uremia monitor daily to assess need for possible additional HD discussed with Dr. Sánchez (2) Chronic anemia: History of anemia of chronic disease Worsening of anemia in the setting of acute renal failure s/p 2 units of PRBC transfused with dialysis post transfusion hb remains stable ~9 (3) Hyperkalemia, diminished renal excretion: Secondary to acute renal failure on HD (4) Pericardial effusion: secondary to uremia/ Renal failure repeat limited ECHO 01/19: improved pericardial effusion with reduction in size Cardiology consulted on Prednisone 30 mg po daily no chest pain Repeat echo 01/21/2019 showing improvement of pericardial effusion recommend Prednisone 20mg po gerardo 01/27/19, then slow taper x 8 weeks (5) History of renal carcinoma: Appreciate input from urology CT abdomen pelvis shows no evidence of obstructive uropathy No urological intervention needed Outpatient follow-up with urology Scheduled for January 2019 (6) Atrial fibrillation: Chronic A. fib, changed Carvedilol to Metoprolol Tartrate monitor on Heparin drip discussed with Dr Sánchez, can transition to coumadin, no plans for HD cath at this time had an episode of RVR, continue to monitor (7) Supratherapeutic INR: History of chronic A. fib, on Coumadin Presented with supratherapeutic INR more than 9 likely secondary to poor renal clearance Given vitamin K p.o. in ER Repeat INR 4 Given 1 unit of FFP, 5 mg of p.o. vitamin K prior to dialysis catheter placement INR low subtherapeutic, Iv heparin bridge discussed with Dr Sánchez, transitioned to coumadin, no plans for HD cath at this time (8) CAD (coronary artery disease): History of coronary artery disease status post PTCA Elevated troponin secondary to type II CT/demand ischemia in the setting of acute renal failure, volume overload, pericardial effusion Cardiology following Echo shows no wall motion abnormality severe ischemic cardiomyopathy, unchanged from prior, with circumferential pericardial effusion new since last echo on 11/10/2019 chest pain free continue usual cardiac medications (9) DM type 2 (diabetes mellitus, type 2): Metformin on hold for acute renal failure acute illness Insulin sliding scale, pharmacy follow-up for glycemic management (10) Ischemic cardiomyopathy: History of ischemic cardiomyopathy EF of 35-40% status post AICD placement Losartan discontinued currently on Lasix IV (11) CVA (cerebral vascular accident): Continue on aspirin, Plavix statin kept on hold for elevated transaminase continues to improve (12) Cardiac defibrillator in place: (13) Elevated LFTs: per Dr. Neil Secondary to passive hepatic congestion due to decompensated heart failure severe ischemic cardiomyopathy in the setting of oliguric renal failure, renal failure, and appreciate input from gastroenterology, no intervention needed, continue to follow trend LFTs continues to improve-as vol status /renal function /rt heart failure improved with intermittent dialysis Elevated transaminases due to t, acute illness/uremia/passive liver congestion secondary to volume overload in acute renal failure right upper quadrant ultrasound shows no gallbladder disease Repeat LFTs: improving Hold statin GI evaluation appreciated (14) Elevated lactic acid level: Lactic acid level normalized No fever chills, stable vitals pro-calcitonin Within normal limit (15) Possible urinary tract infection: Urine culture positive for gram-positive cocci, enterococcus avium - pansensitive antibiotic changed to amoxicillin day / (16) Chronic right shoulder pain: Symptom improved with Lidoderm patch, heating pad Possible musculoskeletal, no limitation on range of motion CODE STATUS: Full code DVT prophylaxis: Iv heparin Disposition: Patient was living at home with , was independent in ADLs Social service consult for discharge planning Subjective ff up for acute renal failure seen sitting up in bed, reading newspaper had an episode of a fib with RVR this morning, had mild sensation of heart racing otherwise no other symptoms no shortness of breath, chest pain, dizziness no nausea, pruritus, abdominal pain denies other symptoms Physical Exam Vital Signs (Past 24 Hours): Last Vital Signs Temp 36.6 C 01/25/19 20:03 Pulse 127 H 01/25/19 20:03 Resp 20 01/25/19 20:03 BP 104/71 01/25/19 20:03 Pulse Ox 97 01/25/19 20:03 Physical Exam: General- oriented x 3, not in distress, speaks in sentences with no effort or accessory muscle use Eyes- anicteric Neck- no JVD Lungs- clear BS BL; no rales/wheezing Heart- normal rate, regular rhythm; no murmurs Abdomen- normal bowel sounds, nondistended, soft, nontender Extremities- grade 1 lower legl edema, no calf tenderness Neuro- alert, oriented x 3; no gross focal neurologic deficits Skin- warm & dry Results & Data Laboratory Results Laboratory Results - last 24 hr 01/25/19 01/25/19 01/25/19 06:37 06:37 07:32 PT 12.1 H INR 1.2 H APTT 46.6 H* PTT Ratio 1.7 Sodium 137 Potassium 3.7 D Chloride 99 Carbon Dioxide 31 Anion Gap 7.0 BUN 71 H Creatinine 3.42 H Est Cr Clr Drug Dosing 18.1 Est GFR ( Amer) 18.7 Est GFR (Non-Af Amer) 16.1 BUN/Creatinine Ratio 20.8 H Glucose 127 H POC Glucose 127 H Calcium 9.2 01/25/19 01/25/19 01/25/19 11:24 16:10 20:07 PT INR APTT PTT Ratio Sodium Potassium Chloride Carbon Dioxide Anion Gap BUN Creatinine Est Cr Clr Drug Dosing Est GFR ( Amer) Est GFR (Non-Af Amer) BUN/Creatinine Ratio Glucose POC Glucose 107 H 268 H 209 H Calcium (1) Acute renal failure superimposed on chronic kidney disease Acute renal failure type: with acute tubular necrosis Chronic kidney disease stage: stage 3 (moderate) Qualified Code(s): N17.0 - Acute kidney failure with tubular necrosis; N18.3 - Chronic kidney disease, stage 3 (moderate) (2) Atrial fibrillation Atrial fibrillation type: unspecified Qualified Code(s): I48.91 - Unspecified atrial fibrillation (3) CAD (coronary artery disease) Coronary Disease-Associated Artery/Lesion type: [place] artery [place] vs. transplanted heart: [place] heart Associated angina: without angina Qualified Code(s): I25.10 - Atherosclerotic heart disease of [place] coronary artery without angina pectoris (4) DM type 2 (diabetes mellitus, type 2) Diabetes mellitus residential insulin use: without residential use Diabetes mellitus complication status: with kidney complications Diabetes mellitus compl ication detail: with chronic kidney disease Chronic kidney disease stage: stage 4 (severe) Qualified Code(s): E11.22 - Type 2 diabetes mellitus with diabetic chronic kidney disease; N18.4 - Chronic kidney disease, stage 4 (severe) (5) CVA (cerebral vascular accident) CVA mechanism: unspecified Qualified Code(s): I63.9 - Cerebral infarction, unspecified
[2019-01-26 05:34] LABS: BUN Creatinine Ratio 20.7 (10-20); Calcium 8.9 mg/dl (8.5-10.1); Est GFR (African American) 18.5; Potassium 3.6 mmol/L (3.5-5.1)
[2019-01-26 05:37] LABS: INR 1.3 (0.9-1.1); Partial Thromboplastin Ratio 1.7
[2019-01-26] MEDS: METOPROLOL TARTRATE 25 MG TAB PO SCH ×2 (06:07→11:54)
[2019-01-26 06:28] LABS: Partial Thromboplastin Time 45.8 Seconds (21.0-31.0)
[2019-01-26] MEDS ORDERED: HEPARIN IV BOLUS 3,000 UNITS in SYRINGE 0 ML IV ONE (07:20)
[2019-01-26] MEDS: LIDOCAINE 5% 1 PATCH TD SCH (07:54)
[2019-01-26] MEDS: FERROUS GLUCONATE 324 MG TAB PO SCH (07:54)
[2019-01-26] MEDS: CLOPIDOGREL BISULFATE 75 MG TAB PO SCH (07:54)
[2019-01-26] MEDS: CYANOCOBALAMIN 500 MCG TABLET (VITAMIN B-12) PO SCH (07:54)
[2019-01-26] MEDS: predniSONE 10 MG TABLET PO SCH (07:55)
[2019-01-26] MEDS: PANTOprazole 40 MG TAB PO SCH (07:55)
[2019-01-26] MEDS: INSULIN ASPART 100 UNITS/ML 3 ML PEN SC SCH ×4 (08:00→20:33)
[2019-01-26] MEDS ORDERED: Nursing to Pharmacy Communication ONE ×2 (08:41→15:16)
[2019-01-26] MEDS: POTASSIUM CHLORIDE 20 MEQ TABCR PO SCH (08:42)
[2019-01-26] MEDS: FUROSEMIDE 40 MG in SYRINGE 0 ML IV SCH ×2 (08:42→17:57)
[2019-01-26] MEDS: HEPARIN LOW DOSE DEXTROSE 25,000 UNITS/500 ML IV SCH (11:56)
--- NOTE | 2019-01-26 13:22 | Cardiology Progress Note ---
Date of Service January 26, 2019 Assessment & Plan (1) Pericardial effusion: Repeat echocardiogram 01/22/19 demonstrates improvement in the size of pericardial effusion with only a trivial pericardial effusion present. Continue prednisone 30 mg daily until 01/27 then reduce to 20mg. 8-week taper recommended ultimately with a final dose of 2.5 mg. Continue proton pump inhibitor for GI prophylaxis. Suspect effusion secondary acute renal failure (2) Atrial fibrillation: Heart rates remain elevated. Will transition to Toprol. Rates previously aided controlled with low-dose digoxin now currently on hold. Coumadin restarted for goal INR of 2.0-3.0. Recommend heparin bridging due to history of cerebrovascular accident. (3) Chronic anemia: Patient with a chronic degree of anemia, hemoglobin 6.6 this admission on 01/16/19 requiring 2 units of packed red blood cells. Most recent hemoglobin stable 9.1 gm/dL 01/24/19. (4) Acute on chronic systolic heart failure: Previous heart failure admission July,. Patient appears mildly volume overloaded at this time. Continue oral Lasix per direction of nephrology. (5) Acute renal failure superimposed on chronic kidney disease: Appreciate nephrology assistance in this complicated case. Continue dialysis support as necessary, for volume and electrolyte management. Creatinine has plateaued in the range of 3.0-3.5 Subjective Patient seen and examined at the bedside. Lower extremity edema unchanged. Nephrology is not planning further dialysis treatments at this time. Coumadin restarted. Telemetry demonstrates atrial fibrillation with heart rates ranging from 100-110 bpm. Patient now aware of elevated heart rate with mild exertional dyspnea. Denies chest pains notes no dizziness or lightheadedness Physical Exam Vital Signs (Past 24 Hours): Last Vital Signs Temp 36.5 C 01/26/19 12:25 Pulse 96 H 01/26/19 12:25 Resp 16 01/26/19 12:25 BP 129/57 L 01/26/19 12:25 Pulse Ox 96 01/26/19 12:25 Constitutional: Vital signs as above Eyes: PERRL, conjunctivae normal, anicteric sclerae Neck: trachea midline, no thyromegaly Respiratory: normal respiratory effort; no audible wheezes Auscultation: + diminished lung sounds Cardiovascular: Heart Sounds: no gallop Extremities: + edema (Trace to 1+ right lower extremity) Irregularly irregular Gastrointestinal (Abdomen): normal bowel sounds, soft, nontender, no hepatosplenomegaly Psychiatric: A+Ox3, euthymic affect Results & Data Laboratory Results Laboratory Results - last 24 hr 01/25/19 01/25/19 01/26/19 16:10 20:07 05:07 PT INR APTT PTT Ratio Sodium 137 Potassium 3.6 Chloride 99 Carbon Dioxide 29 Anion Gap 9.0 BUN 71 H Creatinine 3.44 H Est Cr Clr Drug Dosing 18.0 Est GFR ( Amer) 18.5 Est GFR (Non-Af Amer) 16.0 BUN/Creatinine Ratio 20.7 H Glucose 107 H POC Glucose 268 H 209 H Calcium 8.9 01/26/19 01/26/19 01/26/19 05:07 07:24 11:28 PT 13.0 H INR 1.3 H APTT 45.8 H* PTT Ratio 1.7 Sodium Potassium Chloride Carbon Dioxide Anion Gap BUN Creatinine Est Cr Clr Drug Dosing Est GFR ( Amer) Est GFR (Non-Af Amer) BUN/Creatinine Ratio Glucose POC Glucose 112 H 139 H Calcium (1) Atrial fibrillation Atrial fibrillation type: unspecified Qualified Code(s): I48.91 - Unspecified atrial fibrillation (2) Acute renal failure superimposed on chronic kidney disease Acute renal failure type: with acute tubular necrosis Chronic kidney disease stage: stage 3 (moderate) Qualified Code(s): N17.0 - Acute kidney failure with tubular necrosis; N18.3 - Chronic kidney disease, stage 3 (moderate)
[2019-01-26 14:46] LABS: Partial Thromboplastin Ratio 2.6
[2019-01-26 14:59] LABS: Partial Thromboplastin Time 69.7 Seconds (21.0-31.0)
[2019-01-26] MEDS ORDERED: WARFARIN SOD 10 MG TAB PO ONE (15:47)
--- NOTE | 2019-01-26 15:47 | Hospitalist Progress Note ---
Date of Service January 26, 2019 Assessment & Plan (1) Acute renal failure superimposed on chronic kidney disease: per admitting service notes: presented with oliguric acute renal failure, possible ATN Baseline creatinine 1.1, had recent contrast exposure a week ago for CT abdomen pelvis Creatinine worsened to 2 Presented with uremic symptoms of nausea vomiting, poor appetite and weakness, Creatinine elevated to more than 4/ hyperkalemia/poor urine output CT abdomen pelvis shows no obstructive uropathy, nephrology consulted, appreciate input No improvement with IV fluids, bicarb drip/required emergent dialysis Last HD Wednesday currently on Lasix IV BID crea remains at 3.4 hold off on HD discussed with Dr. Sánchez (2) Chronic anemia: History of anemia of chronic disease Worsening of anemia in the setting of acute renal failure s/p 2 units of PRBC transfused with dialysis post transfusion hb remains stable ~9 (3) Hyperkalemia, diminished renal excretion: Secondary to acute renal failure on HD (4) Pericardial effusion: secondary to uremia/ Renal failure repeat limited ECHO 01/19: improved pericardial effusion with reduction in size Cardiology consulted on Prednisone 30 mg po daily no chest pain Repeat echo 01/21/2019 showing improvement of pericardial effusion recommend Prednisone 20mg po gerardo 01/27/19, then slow taper x 8 weeks (5) History of renal carcinoma: Appreciate input from urology CT abdomen pelvis shows no evidence of obstructive uropathy No urological intervention needed Outpatient follow-up with urology Scheduled for January 2019 (6) Atrial fibrillation: Chronic A. fib, changed Carvedilol to Metoprolol Tartrate monitor on Heparin drip + coumadin (7) Supratherapeutic INR: History of chronic A. fib, on Coumadin Presented with supratherapeutic INR more than 9 likely secondary to poor renal clearance Given vitamin K p.o. in ER Repeat INR 4 Given 1 unit of FFP, 5 mg of p.o. vitamin K prior to dialysis catheter placement INR low subtherapeutic, Iv heparin bridge discussed with Dr Sánchez, transitioned to coumadin, no plans for HD cath at this time (8) CAD (coronary artery disease): History of coronary artery disease status post PTCA Elevated troponin secondary to type II IN/demand ischemia in the setting of acute renal failure, volume overload, pericardial effusion Cardiology following Echo shows no wall motion abnormality severe ischemic cardiomyopathy, unchanged from prior, with circumferential pericardial effusion new since last echo on 11/10/2019 chest pain free continue usual cardiac medications (9) DM type 2 (diabetes mellitus, type 2): Metformin on hold for acute renal failure acute illness Insulin sliding scale, pharmacy follow-up for glycemic management (10) Ischemic cardiomyopathy: History of ischemic cardiomyopathy EF of 35-40% status post AICD placement Losartan discontinued currently on Lasix IV (11) CVA (cerebral vascular accident): Continue on aspirin, Plavix statin kept on hold for elevated transaminase continues to improve (12) Cardiac defibrillator in place: (13) Elevated LFTs: per Dr. Neil Secondary to passive hepatic congestion due to decompensated heart failure severe ischemic cardiomyopathy in the setting of oliguric renal failure, renal failure, and appreciate input from gastroenterology, no intervention needed, continue to follow trend LFTs continues to improve-as vol status /renal function /rt heart failure i mproved with intermittent dialysis Elevated transaminases due to t, acute illness/uremia/passive liver congestion secondary to volume overload in acute renal failure right upper quadrant ultrasound shows no gallbladder disease Repeat LFTs: improving Hold statin GI evaluation appreciated (14) Elevated lactic acid level: Lactic acid level normalized No fever chills, stable vitals pro-calcitonin Within normal limit (15) Possible urinary tract infection: Urine culture positive for gram-positive cocci, enterococcus avium - pansensitive antibiotic changed to amoxicillin day 08/31 (16) Chronic right shoulder pain: Symptom improved with Lidoderm patch, heating pad Possible musculoskeletal, no limitation on range of motion CODE STATUS: Full code DVT prophylaxis: Iv heparin + coumadin Disposition: Patient was living at home with , was independent in ADLs Social service consult for discharge planning Subjective ff up for acute renal failure resting in bed, comfortable a fib RVR overnight states he feels fine overall denies chest pain, dizziness, dyspnea denies other symptoms Physical Exam Vital Signs (Past 24 Hours): Last Vital Signs Temp 36.5 C 01/26/19 12:25 Pulse 96 H 01/26/19 12:25 Resp 16 01/26/19 12:25 BP 129/57 L 01/26/19 12:25 Pulse Ox 96 01/26/19 12:25 Physical Exam: General- oriented x 3, not in distress, speaks in sentences with no effort or accessory muscle use Eyes- anicteric Neck- no JVD Lungs- mild rales left base, clear on the right Heart- normal rate, irregularly irregular rhythm; no murmurs Abdomen- normal bowel sounds, nondistended, soft, nontender Extremities-grade 1 lower leg edema, no calf tenderness Neuro- alert, oriented x 3; no gross focal neurologic deficits Skin- warm & dry Results & Data Laboratory Results Laboratory Results - last 24 hr 01/25/19 01/25/19 01/26/19 16:10 20:07 05:07 PT INR APTT PTT Ratio Sodium 137 Potassium 3.6 Chloride 99 Carbon Dioxide 29 Anion Gap 9.0 BUN 71 H Creatinine 3.44 H Est Cr Clr Drug Dosing 18.0 Est GFR ( Amer) 18.5 Est GFR (Non-Af Amer) 16.0 BUN/Creatinine Ratio 20.7 H Glucose 107 H POC Glucose 268 H 209 H Calcium 8.9 01/26/19 01/26/19 01/26/19 05:07 07:24 11:28 PT 13.0 H INR 1.3 H APTT 45.8 H* PTT Ratio 1.7 Sodium Potassium Chloride Carbon Dioxide Anion Gap BUN Creatinine Est Cr Clr Drug Dosing Est GFR ( Amer) Est GFR (Non-Af Amer) BUN/Creatinine Ratio Glucose POC Glucose 112 H 139 H Calcium 01/26/19 14:07 PT INR APTT 69.7 H* PTT Ratio 2.6 Sodium Potassium Chloride Carbon Dioxide Anion Gap BUN Creatinine Est Cr Clr Drug Dosing Est GFR ( Amer) Est GFR (Non-Af Amer) BUN/Creatinine Ratio Glucose POC Glucose Calcium (1) DM type 2 (diabetes mellitus, type 2) Chronic kidney disease stage: stage 4 (severe) Diabetes mellitus complication detail: with chronic kidney disease Diabetes mellitus complication status: with kidney complications Diabetes mellitus retirement insulin use: without retirement use Qualified Code(s): E11.22 - Type 2 diabetes mellitus with diabetic chronic kidney disease; N18.4 - Chronic kidney disease, stage 4 (severe) (2) CAD (coronary artery disease) Associated angina: without angina Coronary Disease-Associated Artery/Lesion type: [place] artery [place] vs. transplanted heart: [place] heart Qualified Code(s): I25.10 - Atherosclerotic heart disease of [place] coronary artery witho ut angina pectoris (3) Atrial fibrillation Atrial fibrillation type: unspecified Qualified Code(s): I48.91 - Unspecified atrial fibrillation (4) Acute renal failure superimposed on chronic kidney disease Acute renal failure type: with acute tubular necrosis Chronic kidney disease stage: stage 3 (moderate) Qualified Code(s): N17.0 - Acute kidney failure with tubular necrosis; N18.3 - Chronic kidney disease, stage 3 (moderate) (5) CVA (cerebral vascular accident) CVA mechanism: unspecified Qualified Code(s): I63.9 - Cerebral infarction, unspecified
[2019-01-26] MEDS ORDERED: WARFARIN SOD 5 MG TAB PO SCH (16:00)
[2019-01-26] MEDS ORDERED: WARFARIN SOD 7.5 MG TAB PO SCH (16:00)
[2019-01-26] MEDS: METOPROLOL SUCC 50MG EXT REL TAB PO SCH (17:58)
--- NOTE | 2019-01-26 18:09 | Nephrology Progress Note ---
Date of Service January 26, 2019 Assessment & Plan (1) Acute renal failure superimposed on chronic kidney disease: complex pt w/ baseline creatinine 1.7, 1.9 10 days prior to admission and presentied 01/13 w/ creatinine 4.7, hyperkalemia and pericardial effusion verified on TTE. He required dialysis but has not been on dialysis for about a week now. Urine output 2.2 L net -1 L. Creatinine stable at 3.4 and BUN of 71 today. Creatinine appears to be leveling off. >likeliest cause here is ischemic atn in setting of lower bp, already poorer cardiac output, and meds; no indication for dialysis today. -We continue IV Lasix 40 mg twice daily. If creatinine is the same tomorrow, we will switch to p.o. torsemide 60 mg daily. -cont strict I/O. Can remove browning. -No need for tunneled catheter placement. Patient can be put back on Coumadin -Potassium is better today. Can hold off on potassium chloride supplementation (2) History of renal carcinoma: followed by urology; s/p R cryoablation w/ stable imaging; hx of significant lower urinary tract anatomic obstruction >> [place] catheter has been running well without issues or hematuria (3) HTN (hypertension): -BP controlled. Continue current regimen. Subjective CKD 5 on HD for one week. He feels better today. No SOB. Tesio removed 01/20/19. Urine output 2000ml. off oxygen. Lower extremity swelling is subsiding. Had episode of SOB last night. Creatinine is stable 3.4 today. Review of Systems All systems reviewed & are unremarkable except as noted in HPI & below Physical Exam Vital Signs (Past 24 Hours): Last Vital Signs Temp 36.7 C 01/26/19 15:37 Pulse 79 01/26/19 15:37 Resp 18 01/26/19 15:37 BP 131/71 01/26/19 15:37 Pulse Ox 96 01/26/19 15:37 Physical Exam: General exam: Appears comfortable, no acute distress HEENT: Pupils are equal and reactive to light Neck: No JVD, neck is supple trachea is midline Respiratory system: Clear breath sounds bilaterally. Gastrointestinal: Abdomen is soft, non distended, non tender, bowel sounds are present CVS: Regular rate and rhythm. No murmurs, rubs or gallops Musculoskeletal: No joint or muscle tenderness Extremities: Non tender, 1+ edema, peripheral pulses are present Neuro: Oriented, no tremors, no focal neurological deficits Skin: No rashes Results & Data Laboratory Results cr 3.4, bun 71 (1) Acute renal failure superimposed on chronic kidney disease Acute renal failure type: with acute tubular necrosis Chronic kidney disease stage: stage 3 (moderate) Qualified Code(s): N17.0 - Acute kidney failure with tubular necrosis; N18.3 - Chronic kidney disease, stage 3 (moderate)
[2019-01-26 21:32] LABS: Partial Thromboplastin Ratio 2.1
[2019-01-26 21:51] LABS: Partial Thromboplastin Time 57.3 Seconds (21.0-31.0)
[2019-01-27] MEDS: PROCHLORPERAZINE 10 MG in SYRINGE 8 ML IV PRN ×2 (05:01→09:12)
[2019-01-27 07:00] LABS: INR 1.3 (0.9-1.1); Prothrombin Time 13.5 Seconds (9.0-12.0)
[2019-01-27 07:30] LABS: BUN Creatinine Ratio 20.4 (10-20); Calcium 9.1 mg/dl (8.5-10.1); Creatinine Clr Calc Pharmacy 17.3 ml/min; Est GFR (African American) 17.7; Est GFR (Non-African American) 15.2; Potassium 3.5 mmol/L (3.5-5.1)
[2019-01-27] MEDS: CYANOCOBALAMIN 500 MCG TABLET (VITAMIN B-12) PO SCH (07:50)
[2019-01-27] MEDS: CLOPIDOGREL BISULFATE 75 MG TAB PO SCH (07:50)
[2019-01-27] MEDS: POTASSIUM CHLORIDE 20 MEQ TABCR PO SCH (07:50)
[2019-01-27] MEDS: FERROUS GLUCONATE 324 MG TAB PO SCH (07:51)
[2019-01-27] MEDS: predniSONE 10 MG TABLET PO SCH (07:52)
[2019-01-27] MEDS: FUROSEMIDE 40 MG in SYRINGE 0 ML IV SCH ×2 (07:53→17:16)
[2019-01-27] MEDS: LIDOCAINE 5% 1 PATCH TD SCH (07:53)
[2019-01-27] MEDS: METOPROLOL SUCC 50MG EXT REL TAB PO SCH ×2 (07:54→17:15)
[2019-01-27] MEDS: INSULIN ASPART 100 UNITS/ML 3 ML PEN SC SCH ×4 (07:58→20:17)
[2019-01-27] MEDS: PANTOprazole 40 MG TAB PO SCH (08:06)
[2019-01-27 13:29] LABS: Basophils # (auto) 0.02 K/uL (0-0.2); Basophils % (auto) 0.1 %; Eosinophils # (auto) 0.17 K/uL (0-0.5); Eosinophils % (auto) 1.2 %; Hematocrit (blood only) 29.5 % (42-52); Hemoglobin 9.4 g/dL (14.0-18.0); Immature Granulocytes % (auto) 0.7 %; Lymphocytes # (auto) 1.74 K/uL (1.2-3.4); Lymphocytes % (auto) 12.4 %; Mean Corpuscular Hgb Conc 31.9 g/dL (32-36); Mean Corpuscular Volume 92.8 fL (80-100); Mean Platelet Volume 10.5 fL (7.4-10.4); Monocytes # (auto) 1.75 K/uL (0.11-0.59); Monocytes % (auto) 12.5 %; Neutrophils % (auto) 73.1 %; Platelet Count 193 K/uL (130-400); RDW Coefficient of Variation 16.4 % (11.5-14.5); Red Blood Count 3.18 M/uL (4.7-6.1); White Blood Count 13.98 K/uL (4.8-10.8)
--- NOTE | 2019-01-27 13:41 | XRay Report ---
XR chest 1V portable CLINICAL HISTORY: 78 years-old Male presenting with r/o pleural effusion. TECHNIQUE: PA view of the chest was obtained. COMPARISON: 01/19/2019. FINDINGS: Left subclavian single lead implanted cardiac defibrillator with lead to the right ventricular apex. Numerous external leads overlie the right upper quadrant degrading evaluation. Atherosclerosis of aor tic arch. Cardiac silhouette moderately enlarged. Pulmonary vascular prominence. Bibasilar opacities greater on the right. Small right pleural effusion. No large pneumothorax. Degenerative changes of th e thoracic spine. IMPRESSION: 1. Cardiomegaly with volume overload. 2. Small right pleural effusion. 3. Bibasilar atelectasis, right greater than left Electronically signed by: Osiel Rose M.D. 01/27/2019 1:39 PM
--- NOTE | 2019-01-27 14:04 | Nephrology Progress Note ---
Date of Service January 27, 2019 Assessment & Plan (1) Acute renal failure superimposed on chronic kidney disease: complex pt w/ baseline creatinine 1.7, 1.9 10 days prior to admission and presentied 01/13 w/ creatinine 4.7, hyperkalemia and pericardial effusion verified on TTE. He required dialysis but has not been on dialysis for about a week now. Urine output 1.2 L net -231 mL. Creatinine stable at 3.58 and BUN of 73 today. Creatinine appears to be leveling off. He has nausea, less likely uremia given some level of BUN for the past couple of days. No need for dialysis today. We will continue to monitor closely. -We will switch to p.o. torsemide 60 mg daily -cont strict I/O. -No need for tunneled catheter placement. Patient can be put back on Coumadin -Potassium is better today. (2) History of renal carcinoma: followed by urology; s/p R cryoablation w/ stable imaging; hx of significant lower urinary tract anatomic obstruction >> Polanco catheter has been running well without issues or hematuria (3) HTN (hypertension): -BP controlled and on the lower side likely in setting of A. fib. Continue metoprolol for rate control Subjective CKD 5 on HD for one week. He reports nausea this morning. No shortness of breath. Urine output 1200ml. off oxygen. Lower extremity swelling is subsiding. Creatinine is stable 3.58 today. No vomiting and no diarrhea. Seen with the granddaughter at the bedside, all questions were answered. Review of Systems All systems reviewed & are unremarkable except as noted in HPI & below Physical Exam Vital Signs (Past 24 Hours): Last Vital Signs Temp 36.4 C L 01/27/19 11:37 Pulse 106 H 01/27/19 11:37 Resp 18 01/27/19 11:37 BP 118/69 01/27/19 11:37 Pulse Ox 93 01/27/19 11:37 Physical Exam: General exam: Appears comfortable, no acute distress HEENT: Pupils are equal and reactive to light Neck: No JVD, neck is supple trachea is midline Respiratory system: Reduced breath sounds on the right lower zone Gastrointestinal: Abdomen is soft, non distended, non tender, bowel sounds are present CVS: Regular rate and rhythm. No murmurs, rubs or gallops Musculoskeletal: No joint or muscle tenderness Extremities: Non tender, 1+ edema, peripheral pulses are present Neuro: Oriented, no tremors, no focal neurological deficits Skin: No rashes Results & Data Laboratory Results Potassium 3.5, creatinine 3.5 and BUN of 73 (1) Acute renal failure superimposed on chronic kidney disease Acute renal failure type: with acute tubular necrosis Chronic kidney disease stage: stage 3 (moderate) Qualified Code(s): N17.0 - Acute kidney failure with tubular necrosis; N18.3 - Chronic kidney disease, stage 3 (moderate)
--- NOTE | 2019-01-27 14:30 | Cardiology Progress Note ---
Date of Service January 27, 2019 Assessment & Plan (1) Pericardial effusion: Repeat echocardiogram 01/22/19 demonstrates improvement in the size of pericardial effusion with only a trivial pericardial effusion present. Continue prednisone 30 mg daily until 01/27 then reduce to 20mg. 8-week taper recommended ultimately with a final dose of 2.5 mg. Continue proton pump inhibitor for GI prophylaxis. Prednisone reduced to 20 mg p.o. daily. Watch closely GI symptoms given combination of warfarin and prednisone. Hemoglobin improving (2) Atrial fibrillation: Heart rates remain elevated. Will transition to Toprol. Rates previously aided controlled with low-dose digoxin now currently on hold. Coumadin restarted for goal INR of 2.0-3.0. Recommend heparin bridging due to history of cerebrovascular accident. Rate slightly better today on Toprol continue current dosing (3) Chronic anemia: Patient with a chronic degree of anemia, hemoglobin 6.6 this admission on 01/16/19 requiring 2 units of packed red blood cells. Most recent hemoglobin stable 9.1 gm/dL 01/24/19. (4) Acute on chronic systolic heart failure: Previous heart failure admission July,. Patient appears mildly volume overloaded at this time. Continue oral Lasix per direction of nephrology. (5) Acute renal failure superimposed on chronic kidney disease: Appreciate nephrology assistance in this complicated case. Continue dialysis support as necessary, for volume and electrolyte management. Creatinine has plateaued in the range of 3.0-3.5 Subjective Patient seen and examined at the bedside. Chart medications telemetry reviewed. Patient denies shortness of breath. Not aware of tachypalpitations as much today feels somewhat nauseated at times. Heart rates trending slightly lower on Toprol Physical Exam Vital Signs (Past 24 Hours): Last Vital Signs Temp 36.4 C L 01/27/19 11:37 Pulse 106 H 01/27/19 11:37 Resp 18 01/27/19 11:37 BP 118/69 01/27/19 11:37 Pulse Ox 93 01/27/19 11:37 Eyes: PERRL, conjunctivae normal, anicteric sclerae Neck: trachea midline, no thyromegaly Respiratory: normal respiratory effort; no audible wheezes Auscultation: + diminished lung sounds Cardiovascular: Heart Sounds: no gallop Extremities: + edema (1+ bilateral) Gastrointestinal (Abdomen): normal bowel sounds, soft, nontender, no hepatosplenomegaly Psychiatric: A+Ox3, euthymic affect Results & Data Laboratory Results Laboratory Results - last 24 hr 01/26/19 01/26/19 01/26/19 14:07 16:09 20:14 WBC RBC Hgb Hct MCV MCH MCHC RDW Std Deviation RDW Coeff of Dung Plt Count MPV Immature Gran % (Auto) Neut % (Auto) Lymph % (Auto) [place] % (Auto) Eos % (Auto) Baso % (Auto) Immature Gran # (Auto) Neut # (Auto) Lymph # (Auto) [place] # (Auto) Eos # (Auto) Baso # (Auto) PT INR APTT 69.7 H* PTT Ratio 2.6 Sodium Potassium Chloride Carbon Dioxide Anion Gap BUN Creatinine Est Cr Clr Drug Dosing Est GFR ( Amer) Est GFR (Non-Af Amer) BUN/Creatinine Ratio Glucose POC Glucose 161 H 176 H Calcium 01/26/19 01/27/19 01/27/19 20:47 05:01 06:01 WBC 13.98 H RBC 3.18 L Hgb 9.4 L Hct 29.5 L MCV 92.8 MCH 29.6 MCHC 31.9 L RDW Std Deviation 54.0 H RDW Coeff of Dung 16.4 H Plt Count 193 MPV 10.5 H Immature Gran % (Auto) 0.7 Neut % (Auto) 73.1 Lymph % (Auto) 12.4 [place] % (Auto) 12.5 Eos % (Auto) 1.2 Baso % (Auto) 0.1 Immature Gran # (Auto) 0.10 H Neut # (Auto) 10.20 H Lymph # (Auto) 1.74 [place] # (Auto) 1.75 H Eos # (Auto) 0.17 Baso # (Auto) 0.02 PT INR APTT 57.3 H* PTT Ratio 2.1 Sodium 136 Potassium 3.5 Chloride 98 Carbon Dioxide 29 Anion Gap 9.0 BUN 73 H Creatinine 3.58 H Est Cr Clr Drug Dosing 17.3 Est GFR ( Amer) 17.7 Est GFR (Non-Af Amer) 15.2 BUN/Creatinine Ratio 20.4 H Glucose 117 H POC Glucose Calcium 9.1 01/27/19 01/27/19 01/27/19 06:01 07:35 11:08 WBC RBC Hgb Hct MCV MCH MCHC RDW Std Deviation RDW Coeff of Dung Plt Count MPV Immature Gran % (Auto) Neut % (Auto) Lymph % (Auto) [place] % (Auto) Eos % (Auto) Baso % (Auto) Immature Gran # (Auto) Neut # (Auto) Lymph # (Auto) [place] # (Auto) Eos # (Auto) Baso # (Auto) PT 13.5 H INR 1.3 H APTT PTT Ratio Sodium Potassium Chloride Carbon Dioxide Anion Gap BUN Creatinine Est Cr Clr Drug Dosing Est GFR ( Amer) Est GFR (Non-Af Amer) BUN/Creatinine Ratio Glucose POC Glucose 129 H 178 H Calcium (1) Atrial fibrillation Atrial fibrillation type: unspecified Qualified Code(s): I48.91 - Unspecified atrial fibrillation (2) Acute renal failure superimposed on chronic kidney disease Acute renal failure type: with acute tubular necrosis Chronic kidney disease stage: stage 3 (moderate) Qualified Code(s): N17.0 - Acute kidney failure with tubular necrosis; N18.3 - Chronic kidney disease, stage 3 (moderate)
[2019-01-27] MEDS: HEPARIN LOW DOSE DEXTROSE 25,000 UNITS/500 ML IV SCH (15:10)
[2019-01-27] MEDS ORDERED: WARFARIN SOD 10 MG TAB PO ONE ×2 (16:00)
--- NOTE | 2019-01-27 22:18 | Hospitalist Progress Note ---
Date of Service January 27, 2019 Assessment & Plan (1) Acute renal failure superimposed on chronic kidney disease: per admitting service notes: presented with oliguric acute renal failure, possible ATN Baseline creatinine 1.1, had recent contrast exposure a week ago for CT abdomen pelvis Creatinine worsened to 2 Presented with uremic symptoms of nausea vomiting, poor appetite and weakness, Creatinine elevated to more than 4/ hyperkalemia/poor urine output CT abdomen pelvis shows no obstructive uropathy, nephrology consulted, appreciate input No improvement with IV fluids, bicarb drip/required emergent dialysis Last HD Wednesday currently on Lasix IV BID crea slowly increased from 2.4 to 3.6 urine output: remains at least 2 liters/day discussed with Dr. Sánchez nausea not likely from uremia HD not recommended anymore planning to transition to PO diuretics in AM Nausea - resolved no sign of infection (+) BMs - from Prednisone? already on Protonix - repeat CXR: IMPRESSION: 1. Cardiomegaly with volume overload. 2. Small right pleural effusion. 3. Bibasilar atelectasis, right greater than left - monitor (2) Chronic anemia: History of anemia of chronic disease Worsening of anemia in the setting of acute renal failure s/p 2 units of PRBC transfused with dialysis post transfusion hb remains stable ~9 (3) Hyperkalemia, diminished renal excretion: Secondary to acute renal failure on HD (4) Pericardial effusion: secondary to uremia/ Renal failure repeat limited ECHO 01/19: improved pericardial effusion with reduction in size Cardiology consulted on Prednisone 20 mg po daily now no chest pain Repeat echo 01/21/2019 showing improvement of pericardial effusion recommend Prednisone 20mg po gerardo 01/27/19, then slow taper x 8 weeks (5) History of renal carcinoma: Appreciate input from urology CT abdomen pelvis shows no evidence of obstructive uropathy No urological intervention needed Outpatient follow-up with urology Scheduled for January 2019 (6) Atrial fibrillation: Chronic A. fib, changed Carvedilol to Metoprolol Tartrate monitor on Heparin drip + coumadin coumadin increased to 10mg, usually on 5mg and 7.5mg alternating (7) Supratherapeutic INR: History of chronic A. fib, on Coumadin Presented with supratherapeutic INR more than 9 likely secondary to poor renal clearance Given vitamin K p.o. in ER Repeat INR 4 Given 1 unit of FFP, 5 mg of p.o. vitamin K prior to dialysis catheter placement coumadin resumed, with heparin bridge in light of history of CVA INR low subtherapeutic coumadin increased monitor (8) CAD (coronary artery disease): History of coronary artery disease status post PTCA Elevated troponin secondary to type II VA/demand ischemia in the setting of acute renal failure, volume overload, pericardial effusion Cardiology following Echo shows no wall motion abnormality severe ischemic cardiomyopathy, unchanged from prior, with circumferential pericardial effusion new since last echo on 11/10/2019 chest pain free continue usual cardiac medications (9) DM type 2 (diabetes mellitus, type 2): Metformin on hold for acute renal failure acute illness Insulin sliding scale, pharmacy follow-up for glycemic management (10) Ischemic cardiomyopathy: History of ischemic cardiomyopathy EF of 35-40% status post AICD placement Losartan discontinued currently on Lasix IV monitor diuresis (11) CVA (cerebral vascular accident): Continue on aspirin, Plavix statin kept on hold for elevated transaminase continues to improve (12) Cardiac defibrillator in place: (13) Elevated LFTs: per Dr. Neil Secondary to passive hepatic congestion due to decompensated heart failure severe ischemic cardiomyopathy in the setting of oliguric renal failure, renal failure, and appreciate input from gastroenterology, no intervention needed, continue to follow trend LFTs continues to improve-as vol status /renal function /rt heart failure improved with intermittent dialysis Elevated transaminases due to t, acute illness/uremia/passive liver congestion secondary to volume overload in acute renal failure right upper quadrant ultrasound shows no gallbladder disease Repeat LFTs: improving Hold statin GI evaluation appreciated (14) Elevated lactic acid level: Lactic acid level normalized No fever chills, stable vitals pro-calcitonin Within normal limit (15) Possible urinary tract infection: Urine culture positive for gram-positive cocci, enterococcus avium - pansensitive completed amoxicillin day 08/31 (16) Chronic right shoulder pain: Symptom improved with Lidoderm patch, heating pad Possible musculoskeletal, no limitation on range of motion CODE STATUS: Full code DVT prophylaxis: Iv heparin + coumadin Disposition: Patient was living at home with , was independent in ADLs Social service consult for discharge planning Subjective ff up for acute renal failure resting in bed, comfortable was having nausea in the morning states he feels tired no chest pain, dyspnea, cough, palpitations re-evaluated in the evening daughter concerned patient states he feels better, no nausea no other symptoms states he will have dinner and sit on the chair denies other symptoms Physical Exam Vital Signs (Past 24 Hours): Last Vital Signs Temp 36.5 C 01/27/19 19:54 Pulse 127 H 01/27/19 19:54 Resp 16 01/27/19 19:54 BP 113/75 01/27/19 19:54 Pulse Ox 96 01/27/19 19:54 Physical Exam: General- oriented x 3, not in distress, speaks in sentences with no effort or accessory muscle use Eyes- anicteric Neck- no JVD Lungs-mild rales at the bases no wheezing Heart- normal rate, regular rhythm; no murmurs Abdomen- normal bowel sounds, nondistended, soft, nontender Extremities- mild lower leg edema, no calf tenderness Neuro- alert, oriented x 3; no gross focal neurologic deficits Skin- warm & dry Results & Data Laboratory Results Laboratory Results - last 24 hr 01/27/19 01/27/19 01/27/19 05:01 06:01 06:01 WBC 13.98 H RBC 3.18 L Hgb 9.4 L Hct 29.5 L MCV 92.8 MCH 29.6 MCHC 31.9 L RDW Std Deviation 54.0 H RDW Coeff of Dung 16.4 H Plt Count 193 MPV 10.5 H Immature Gran % (Auto) 0.7 Neut % (Auto) 73.1 Lymph % (Auto) 12.4 [place] % (Auto) 12.5 Eos % (Auto) 1.2 Baso % (Auto) 0.1 Immature Gran # (Auto) 0.10 H Neut # (Auto) 10.20 H Lymph # (Auto) 1.74 [place] # (Auto) 1.75 H Eos # (Auto) 0.17 Baso # (Auto) 0.02 PT 13.5 H INR 1.3 H Sodium 136 Potassium 3.5 Chloride 98 Carbon Dioxide 29 Anion Gap 9.0 BUN 73 H Creatinine 3.58 H Est Cr Clr Drug Dosing 17.3 Est GFR ( Amer) 17.7 Est GFR (Non-Af Amer) 15.2 BUN/Creatinine Ratio 20.4 H Glucose 117 H POC Glucose Calcium 9.1 01/27/19 01/27/19 01/27/19 07:35 11:08 16:35 WBC RBC Hgb Hct MCV MCH MCHC RDW Std Deviation RDW Coeff of Dung Plt Count MPV Immature Gran % (Auto) Neut % (Auto) Lymph % (Auto) [place] % (Auto) Eos % (Auto) Baso % (Auto) Immature Gran # (Auto) Neut # (Auto) Lymph # (Auto) [place] # (Auto) Eos # (Auto) Baso # (Auto) PT INR Sodium Potassium Chloride Carbon Dioxide Anion Gap BUN Creatinine Est Cr Clr Drug Dosing Est GFR ( Amer) Est GFR (Non-Af Amer) BUN/Creatinine Ratio Glucose POC Glucose 129 H 178 H 231 H Calcium 01/27/19 19:59 WBC RBC Hgb Hct MCV MCH MCHC RDW Std Deviation RDW Coeff of Dung Plt Count MPV Immature Gran % (Auto) Neut % (Auto) Lymph % (Auto) [place] % (Auto) Eos % (Auto) Baso % (Auto) Immature Gran # (Auto) Neut # (Auto) Lymph # (Auto) [place] # (Auto) Eos # (Auto) Baso # (Auto) PT INR Sodium Potassium Chloride Carbon Dioxide Anion Gap BUN Creatinine Est Cr Clr Drug Dosing Est GFR ( Amer) Est GFR (Non-Af Amer) BUN/Creatinine Ratio Glucose POC Glucose 150 H Calcium (1) Acute renal failure superimposed on chronic kidney disease Acute renal failure type: with acute tubular necrosis Chronic kidney disease stage: stage 3 (moderate) Qualified Code(s): N17.0 - Acute kidney failure with tubular necrosis; N18.3 - Chronic kidney disease, stage 3 (moderate) (2) Atrial fibrillation Atrial fibrillation type: unspecified Qualified Code(s): I48.91 - Unspecified atrial fibrillation (3) CAD (coronary artery disease) Coronary Disease-Associated Artery/Lesion type: [place] artery [place] vs. transplanted heart: [place] heart Associated angina: without angina Qualified Code(s): I25.10 - Atherosclerotic heart disease of [place] coronary artery without angina pectoris (4) DM type 2 (diabetes mellitus, type 2) Diabetes mellitus snf insulin use: without intermediate teacher use Diabetes mellitus complication status: with kidney complications Diabetes mellitus complication detail: with chronic kidney disease Chronic kidney disease stage: stage 4 (severe) Qualified Code(s): E11.22 - Type 2 diabetes mellitus with diabetic chronic kidney disease; N18.4 - Chronic kidney disease, stage 4 (severe) (5) CVA (cerebral vascular accident) CVA mechanism: unspecified Qualified Code(s): I63.9 - Cerebral infarction, unspecified
[2019-01-28 06:46] LABS: BUN Creatinine Ratio 20.7 (10-20); Calcium 9.4 mg/dl (8.5-10.1); Creatinine Clr Calc Pharmacy 17.7 ml/min; Est GFR (African American) 18.2; Est GFR (Non-African American) 15.7; Potassium 4.1 mmol/L (3.5-5.1)
[2019-01-28 06:47] LABS: INR 1.7 (0.9-1.1); Prothrombin Time 16.6 Seconds (9.0-12.0)
[2019-01-28 07:50] LABS: Partial Thromboplastin Time 52.9 Seconds (21.0-31.0)
[2019-01-28] MEDS: CLOPIDOGREL BISULFATE 75 MG TAB PO SCH (07:59)
[2019-01-28] MEDS: METOPROLOL SUCC 50MG EXT REL TAB PO SCH ×2 (07:59→16:15)
[2019-01-28] MEDS: FUROSEMIDE 40 MG in SYRINGE 0 ML IV SCH ×2 (07:59→16:14)
[2019-01-28] MEDS: CYANOCOBALAMIN 500 MCG TABLET (VITAMIN B-12) PO SCH (07:59)
[2019-01-28] MEDS: FERROUS GLUCONATE 324 MG TAB PO SCH (08:00)
[2019-01-28] MEDS: POTASSIUM CHLORIDE 20 MEQ TABCR PO SCH (08:00)
[2019-01-28] MEDS: predniSONE 10 MG TABLET PO SCH (08:01)
[2019-01-28] MEDS: LIDOCAINE 5% 1 PATCH TD SCH (08:02)
[2019-01-28] MEDS: INSULIN ASPART 100 UNITS/ML 3 ML PEN SC SCH ×4 (08:04→20:21)
[2019-01-28] MEDS: PANTOprazole 40 MG TAB PO SCH (09:00)
--- NOTE | 2019-01-28 12:12 | Nephrology Progress Note ---
Date of Service January 28, 2019 Assessment & Plan (1) Acute renal failure superimposed on chronic kidney disease: complex pt w/ baseline creatinine 1.7, 1.9 10 days prior to admission and presentied 01/13 w/ creatinine 4.7, hyperkalemia and pericardial effusion verified on TTE. He required dialysis but has not been on dialysis for about a week now. Urine output about 1 L. Creatinine stable at 3.49 and BUN of 72 today. Creatinine appears to be leveling off. No need for dialysis today. We will continue to monitor closely. -We will switch to p.o. torsemide 80 mg daily starting tomorrow. We will stop IV Lasix after tonight's dose -cont strict I/O. -If INR is therapeutic, patient can be discharged. He will need weekly BMP to follow-up with Dr. Olivares (2) History of renal carcinoma: followed by urology; s/p R cryoablation w/ stable imaging; hx of significant lower urinary tract anatomic obstruction >> Polanco catheter has been running well without issues or hematuria (3) HTN (hypertension): -BP controlled and intermittently on the lower side likely in setting of A. fib. Continue metoprolol for rate control Subjective CKD 5 on HD for one week. No shortness of breath. Urine output 900ml. off oxygen. Lower extremity swelling is subsiding. Creatinine is stable 3.49 today. No vomiting and no diarrhea. He has been walking around the corridors without shortness of breath. He continues heparin drip. INR is up to 1.7 today. He is eager to be discharged home. This morning had episodes of rapid A. fib in the 120s Review of Systems All systems reviewed & are unremarkable except as noted in HPI & below Physical Exam Vital Signs (Past 24 Hours): Last Vital Signs Temp 36.6 C 01/28/19 11:51 Pulse 104 H 01/28/19 11:51 Resp 19 01/28/19 11:51 BP 118/70 01/28/19 11:51 Pulse Ox 97 01/28/19 11:51 Physical Exam: General exam: Appears comfortable, no acute distress HEENT: Pupils are equal and reactive to light Neck: No JVD, neck is supple trachea is midline Respiratory system: Clear breath sounds bilaterally. Gastrointestinal: Abdomen is soft, non distended, non tender, bowel sounds are present CVS: Regular rate and rhythm. No murmurs, rubs or gallops Musculoskeletal: No joint or muscle tenderness Extremities: Non tender, 1+ edema, peripheral pulses are present Neuro: Oriented, no tremors, no focal neurological deficits Skin: No rashes Results & Data Laboratory Results K4.1, BUN 72, creatinine 3.49 (1) Acute renal failure superimposed on chronic kidney disease Acute renal failure type: with acute tubular necrosis Chronic kidney disease stage: stage 3 (moderate) Qualified Code(s): N17.0 - Acute kidney failure with tubular necrosis; N18.3 - Chronic kidney disease, stage 3 (moderate)
--- NOTE | 2019-01-28 13:47 | Hospitalist Progress Note ---
Date of Service January 28, 2019 Assessment & Plan (1) Acute renal failure superimposed on chronic kidney disease: presented with oliguric acute renal failure, possible ATN resolved Baseline creatinine 1.1, had recent contrast exposure a week ago for CT abdomen pelvis Creatinine worsened to 2 Presented with uremic symptoms of nausea vomiting, poor appetite and weakness, Creatinine elevated to more than 4/ hyperkalemia/poor urine output CT abdomen pelvis shows no obstructive uropathy, nephrology consulted, appreciate input No improvement with IV fluids, bicarb drip/required emergent dialysis Last HD Wednesday has not required dialysis for past 1 week currently on Lasix IV BID crea slowly increased from 2.4 to 3.6 urine output: remains at least 2 liters/day discussed with Dr. Sánchez nausea not likely from uremia HD not recommended anymore transition to PO lasix Nausea symptom has resolved normal appetite improved energy no evidence of uremia (2) Chronic anemia: History of anemia of chronic disease Worsening of anemia in the setting of acute renal failure s/p 2 units of PRBC transfused with dialysis post transfusion hb remains stable ~9 (3) Hyperkalemia, diminished renal excretion: Secondary to acute renal failure K level normalixed (4) Pericardial effusion: secondary to uremia/ Renal failure repeat limited ECHO 01/19: improved pericardial effusion with reduction in size Cardiology consulted on Prednisone 20 mg po daily now no chest pain Repeat echo 01/21/2019 showing improvement of pericardial effusion recommend Prednisone 20mg po gerardo 01/27/19, then slow taper x 8 weeks (5) History of renal carcinoma: Appreciate input from urology CT abdomen pelvis shows no evidence of obstructive uropathy No urological intervention needed Outpatient follow-up with urology Scheduled for January 2019 (6) Atrial fibrillation: Chronic A. fib, changed Carvedilol to Metoprolol Tartrate monitor on Heparin drip + coumadin coumadin increased to 10mg, usually on 5mg and 7.5mg alternating (7) Supratherapeutic INR: History of chronic A. fib, on Coumadin Presented with supratherapeutic INR more than 9 likely secondary to poor renal clearance Given vitamin K p.o. in ER Repeat INR 4 Given 1 unit of FFP, 5 mg of p.o. vitamin K prior to dialysis catheter placement coumadin resumed, with heparin bridge in light of history of CVA INR low subtherapeutic coumadin increased monitor (8) CAD (coronary artery disease): History of coronary artery disease status post PTCA Elevated troponin secondary to type II [place]/demand ischemia in the setting of acute renal failure, volume overload, pericardial effusion Cardiology following Echo shows no wall motion abnormality severe ischemic cardiomyopathy, unchanged from prior, with circumferential pericardial effusion new since last echo on 11/10/2019 chest pain free continue usual cardiac medications (9) DM type 2 (diabetes mellitus, type 2): Metformin on hold for acute renal failure acute illness Insulin sliding scale, pharmacy follow-up for glycemic management (10) Ischemic cardiomyopathy: History of ischemic cardiomyopathy EF of 35-40% status post AICD placement Losartan discontinued currently on Lasix IV monitor diuresis (11) CVA (cerebral vascular accident): Continue on aspirin, Plavix statin kept on hold for elevated transaminase continues to improve (12) Cardiac defibrillator in place: (13) Elevated LFTs: due to passive hepatic congestion /rt sided heart failure resolved (14) Elevated lactic acid level: Lactic acid level normalized No fever chills, stable vitals pro-calcitonin Within normal limit (15) Possible urinary tract infection: Urine culture positive for gram-positive cocci, enterococcus avium - pansensitive completed amoxicillin day 08/31 (16) Chronic right shoulder pain: Symptom improved with Lidoderm patch, heating pad Possible musculoskeletal, no limitation on range of motion CODE STATUS: Full code DVT prophylaxis: Iv heparin + coumadin Disposition: Patient was living at home with , was independent in ADLs able to walk in hallway plan is to D/c home with home health /home PT Subjective no complain of nausea / appetite fair no complain of SOB /SANTOS no orthopnea walked in the hallway twice today Physical Exam Vital Signs (Past 24 Hours): Last Vital Signs Temp 36.6 C 01/28/19 11:51 Pulse 104 H 01/28/19 11:51 Resp 19 01/28/19 11:51 BP 118/70 01/28/19 11:51 Pulse Ox 97 01/28/19 11:51 Constitutional: WD/WN, vitals as above no acute distress Eyes: + anicteric sclerae ENMT: Mouth: + dry oral mucous membranes Neck: trachea midline, no thyromegaly Respiratory: no respiratory distress, no labored breathing and no cough Cardiovascular: Rate/Rhythm: + abnormal rhythm (chronic afib ) Extremities: normal capillary refill; no edema Gastrointestinal (Abdomen): Inspection/Auscultation: abdomen normal to inspection Percussion/Palpation: no hepatomegaly and no ascites Skin: no rashes, warm and dry Neurologic: PERRL, EOMI, accommodation nl, no face palsy, no dysarthria + confused Psychiatric: A+Ox3, euthymic affect (1) DM type 2 (diabetes mellitus, type 2) Chronic kidney disease stage: stage 4 (severe) Diabetes mellitus complication detail: with chronic kidney disease Diabetes mellitus complication status: with kidney complications Diabetes mellitus technician terminal and repeater insulin use: without shelter use Qualified Code(s): E11.22 - Type 2 diabetes mellitus with diabetic chronic kidney disease; N18.4 - Chronic kidney disease, stage 4 (severe) (2) CAD (coronary artery disease) Associated angina: without angina Coronary Disease-Associated Artery/Lesion type: [place] artery [place] vs. transplanted heart: [place] heart Qualified Code(s): I25.10 - Atherosclerotic heart disease of [place] coronary artery without angina pectoris (3) Atrial fibrillation Atrial fibrillation type: unspecified Qualified Code(s): I48.91 - Unspecified atrial fibrillation (4) Acute renal failure superimposed on chronic kidney disease Acute renal failure type: with acute tubular necrosis Chronic kidney disease stage: stage 3 (moderate) Qualified Code(s): N17.0 - Acute kidney failure with tubular necrosis; N18.3 - Chronic kidney disease, stage 3 (moderate) (5) CVA (cerebral vascular accident) CVA mechanism: unspecified Qualified Code(s): I63.9 - Cerebral infarction, unspecified
[2019-01-28] MEDS: WARFARIN SOD 10 MG TAB PO SCH (16:13)
[2019-01-28] MEDS: HEPARIN LOW DOSE DEXTROSE 25,000 UNITS/500 ML IV SCH (17:56)
[2019-01-29 06:57] LABS: INR 2.2 (0.9-1.1); Partial Thromboplastin Ratio 2.3; Prothrombin Time 21.1 Seconds (9.0-12.0)
[2019-01-29 06:58] LABS: Partial Thromboplastin Time 63.5 Seconds (21.0-31.0)
[2019-01-29 07:09] LABS: BUN Creatinine Ratio 21.9 (10-20); Creatinine Clr Calc Pharmacy 17.6 ml/min; Est GFR (Non-African American) 15.6; Potassium 3.9 mmol/L (3.5-5.1)
[2019-01-29] MEDS: METOPROLOL SUCC 50MG EXT REL TAB PO SCH (08:30)
[2019-01-29] MEDS: predniSONE 10 MG TABLET PO SCH (08:30)
[2019-01-29] MEDS: PANTOprazole 40 MG TAB PO SCH (08:31)
[2019-01-29] MEDS: CLOPIDOGREL BISULFATE 75 MG TAB PO SCH (08:31)
[2019-01-29] MEDS: POTASSIUM CHLORIDE 20 MEQ TABCR PO SCH (08:32)
[2019-01-29] MEDS: TORSEMIDE 20 MG TAB PO SCH (08:33)
[2019-01-29] MEDS: CYANOCOBALAMIN 500 MCG TABLET (VITAMIN B-12) PO SCH (08:33)
[2019-01-29] MEDS: LIDOCAINE 5% 1 PATCH TD SCH (08:34)
[2019-01-29] MEDS: FERROUS GLUCONATE 324 MG TAB PO SCH (08:36)
[2019-01-29] MEDS: INSULIN ASPART 100 UNITS/ML 3 ML PEN SC SCH ×4 (08:36→21:46)
[2019-01-29] MEDS ORDERED: METOPROLOL TARTRATE 1 MG/ML VIAL IV PRN (11:17)
[2019-01-29] MEDS ORDERED: METOPROLOL SUCC 25MG EXT REL TAB PO ONE (12:22)
[2019-01-29] MEDS: ROSUVASTATIN CALCIUM 20 MG TAB PO SCH (13:36)
--- NOTE | 2019-01-29 14:13 | Cardiology Progress Note ---
Date of Service January 29, 2019 Assessment & Plan (1) Atrial fibrillation: Would opt for tighter control of heart rates increase Toprol-XL to 75 mill grams p.o. twice per day Subjective Patient telemetry reviewed changes to have elevated heart rates when exerting self heart rate as high as 120. Hemodynamically stable no significant symptoms blood pressure controlled Physical Exam Vital Signs (Past 24 Hours): Last Vital Signs Temp 36.3 C L 01/29/19 10:56 Pulse 113 H 01/29/19 10:56 Resp 18 01/29/19 10:56 BP 119/77 01/29/19 10:56 Pulse Ox 96 01/29/19 10:56 (1) Atrial fibrillation Atrial fibrillation type: unspecified Qualified Code(s): I48.91 - Unspecified atrial fibrillation
[2019-01-29] MEDS: WARFARIN SOD 10 MG TAB PO SCH (15:55)
--- NOTE | 2019-01-29 16:18 | Nephrology Progress Note ---
Date of Service January 29, 2019 Assessment & Plan (1) Acute renal failure superimposed on chronic kidney disease: complex pt w/ baseline creatinine 1.7, 1.9 10 days prior to admission and presentied 01/13 w/ creatinine 4.7, hyperkalemia and pericardial effusion verified on TTE. He required dialysis but has not been on dialysis for about a week now. Urine output about 1 L. Creatinine stable at 3.5 and BUN of 77 today. Creatinine appears to be leveling off, BUN slightly uptrending. Unclear if vomiting is from uremia as BUN not very high. No need for dialysis today. We will continue to monitor closely. -We will conitnue torsemide 80 mg daily. If vomiting resolves, can be discharged -He will need weekly BMP to follow-up with Dr. 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 No hematuria (3) HTN (hypertension): -BP controlled and intermittently on the lower side likely in setting of A. fib. Continue metoprolol for rate control Subjective CKD 5 on HD for one week. No shortness of breath. Urine output 1200ml. off oxygen. Lower extremity swelling is subsiding. Creatinine is stable 3.5 today. He vomited breakfast today. He has been walking around the corridors without shortness of breath. He is eager to be discharged home. Heart rate in the 110's Review of Systems All systems reviewed & are unremarkable except as noted in HPI & below Physical Exam Vital Signs (Past 24 Hours): Last Vital Signs Temp 36.3 C L 01/29/19 15:27 Pulse 105 H 01/29/19 15:38 Resp 19 01/29/19 15:27 BP 112/72 01/29/19 15:27 Pulse Ox 96 01/29/19 15:27 Physical Exam: General exam: Appears comfortable, no acute distress HEENT: Pupils are equal and reactive to light Neck: No JVD, neck is supple trachea is midline Respiratory system: Clear breath sounds bilaterally. Gastrointestinal: Abdomen is soft, non distended, non tender, bowel sounds are present CVS: Regular rate and rhythm. No murmurs, rubs or gallops Musculoskeletal: No joint or muscle tenderness Extremities: Non tender, 1+ edema, peripheral pulses are present Neuro: Oriented, no tremors, no focal neurological deficits Skin: No rashes Results & Data Laboratory Results k 3.9, Cr 3.5 (1) Acute renal failure superimposed on chronic kidney disease Acute renal failure type: with acute tubular necrosis Chronic kidney disease stage: stage 3 (moderate) Qualified Code(s): N17.0 - Acute kidney failure with tubular necrosis; N18.3 - Chronic kidney disease, stage 3 (moderate)
--- NOTE | 2019-01-29 16:55 | Hospitalist Progress Note ---
Date of Service January 29, 2019 Assessment & Plan (1) Acute renal failure superimposed on chronic kidney disease: presented with oliguric acute renal failure, possible ATN resolved Baseline creatinine 1.1, had recent contrast exposure a week ago for CT abdomen pelvis Creatinine worsened to 2 Presented with uremic symptoms of nausea vomiting, poor appetite and weakness, Creatinine elevated to more than 4/ hyperkalemia/poor urine output CT abdomen pelvis shows no obstructive uropathy, nephrology consulted, appreciate input No improvement with IV fluids, bicarb drip/required emergent dialysis Last HD Wednesday has not required dialysis for past 1 week currently on Lasix IV BID crea slowly increased from 2.4 to 3.6 urine output: remains at least 2 liters/day discussed with Dr. Sánchez nausea not likely from uremia HD not recommended anymore transition to PO lasix Nausea symptom has resolved normal appetite improved energy no evidence of uremia (2) Chronic anemia: History of anemia of chronic disease Worsening of anemia in the setting of acute renal failure s/p 2 units of PRBC transfused with dialysis post transfusion hb remains stable ~9 (3) Hyperkalemia, diminished renal excretion: Secondary to acute renal failure K level normalixed (4) Pericardial effusion: secondary to uremia/ Renal failure repeat limited ECHO 01/19: improved pericardial effusion with reduction in size Cardiology consulted on Prednisone 20 mg po daily now no chest pain Repeat echo 01/21/2019 showing improvement of pericardial effusion recommend Prednisone 20mg po gerardo 01/27/19, then slow taper x 8 weeks (5) History of renal carcinoma: Appreciate input from urology CT abdomen pelvis shows no evidence of obstructive uropathy No urological intervention needed Outpatient follow-up with urology Scheduled for January 2019 (6) Atrial fibrillation: Chronic A. fib, changed Carvedilol to Metoprolol Tartrate monitor on Heparin drip + coumadin coumadin increased to 10mg, usually on 5mg and 7.5mg alternating (7) Supratherapeutic INR: History of chronic A. fib, on Coumadin Presented with supratherapeutic INR more than 9 likely secondary to poor renal clearance Given vitamin K p.o. in ER Repeat INR 4 Given 1 unit of FFP, 5 mg of p.o. vitamin K prior to dialysis catheter placement coumadin resumed, with heparin bridge in light of history of CVA INR low subtherapeutic coumadin increased monitor (8) CAD (coronary artery disease): History of coronary artery disease status post PTCA Elevated troponin secondary to type II [place]/demand ischemia in the setting of acute renal failure, volume overload, pericardial effusion Cardiology following Echo shows no wall motion abnormality severe ischemic cardiomyopathy, unchanged from prior, with circumferential pericardial effusion new since last echo on 11/10/2019 chest pain free continue usual cardiac medications (9) DM type 2 (diabetes mellitus, type 2): Metformin on hold for acute renal failure acute illness Insulin sliding scale, pharmacy follow-up for glycemic management (10) Ischemic cardiomyopathy: History of ischemic cardiomyopathy EF of 35-40% status post AICD placement Losartan discontinued currently on Lasix IV monitor diuresis (11) CVA (cerebral vascular accident): Continue on aspirin, Plavix statin kept on hold for elevated transaminase continues to improve (12) Cardiac defibrillator in place: (13) Elevated LFTs: due to passive hepatic congestion /rt sided heart failure resolved (14) Elevated lactic acid level: Lactic acid level normalized No fever chills, stable vitals pro-calcitonin Within normal limit (15) Possible urinary tract infection: Urine culture positive for gram-positive cocci, enterococcus avium - pansensitive completed amoxicillin day 08/31 (16) Chronic right shoulder pain: Symptom improved with Lidoderm patch, heating pad Possible musculoskeletal, no limitation on range of motion CODE STATUS: Full code DVT prophylaxis: Iv heparin + coumadin Disposition: Patient was living at home with , was independent in ADLs able to walk in hallway plan is to D/c home with home health /home PT Subjective feels better denies of any distress no nausea eager to be go home family worried about ongoing nausea Physical Exam Vital Signs (Past 24 Hours): Last Vital Signs Temp 36.3 C L 01/29/19 15:27 Pulse 105 H 01/29/19 15:38 Resp 19 01/29/19 15:27 BP 112/72 01/29/19 15:27 Pulse Ox 96 01/29/19 15:27 Constitutional: WD/WN, vitals as above no acute distress Eyes: + anicteric sclerae ENMT: Mouth: + dry oral mucous membranes Neck: trachea midline, no thyromegaly Respiratory: no respiratory distress, no labored breathing and no cough Auscultation: + rales (At base) Cardiovascular: Rate/Rhythm: + abnormal rhythm (chronic afib ) Extremities: normal capillary refill; no edema Gastrointestinal (Abdomen): Inspection/Auscultation: abdomen normal to inspec tion Percussion/Palpation: no hepatomegaly and no ascites Skin: no rashes, warm and dry Neurologic: PERRL, EOMI, accommodation nl, no face palsy, no dysarthria + confused Psychiatric: A+Ox3, euthymic affect (1) DM type 2 (diabetes mellitus, type 2) Chronic kidney disease stage: stage 4 (severe) Diabetes mellitus complication detail: with chronic kidney disease Diabetes mellitus complication status: with kidney complications Diabetes mellitus [place] headgate operator insulin use: without [facility] use Qualified Code(s): E11.22 - Type 2 diabetes mellitus with diabetic chronic kidney disease; N18.4 - Chronic kidney disease, stage 4 (severe) (2) CAD (coronary artery disease) Associated angina: without angina Coronary Disease-Associated Artery/Lesion type: [place] artery [place] vs. transplanted heart: [place] heart Qualified Code(s): I25.10 - Atherosclerotic heart disease of [place] coronary artery without angina pectoris (3) Atrial fibrillation Atrial fibrillation type: unspecified Qualified Code(s): I48.91 - Unspecified atrial fibrillation (4) Acute renal failure superimposed on chronic kidney disease Acute renal failure type: with acute tubular necrosis Chronic kidney disease stage: stage 3 (moderate) Qualified Code(s): N17.0 - Acute kidney failure with tubular necrosis; N18.3 - Chronic kidney disease, stage 3 (moderate) (5) CVA (cerebral vascular accident) CVA mechanism: unspecified Qualified Code(s): I63.9 - Cerebral infarction, unspecified
[2019-01-29] MEDS: METOPROLOL SUCC 25MG EXT REL TAB PO SCH (18:15)
[2019-01-30] MEDS: PROCHLORPERAZINE 10 MG in SYRINGE 8 ML IV PRN (01:10)
[2019-01-30 07:03] LABS: Prothrombin Time 28.1 Seconds (9.0-12.0)
[2019-01-30] MEDS: predniSONE 10 MG TABLET PO SCH (08:19)
[2019-01-30] MEDS: TORSEMIDE 20 MG TAB PO SCH (08:20)
[2019-01-30] MEDS: CLOPIDOGREL BISULFATE 75 MG TAB PO SCH (08:21)
[2019-01-30] MEDS: FERROUS GLUCONATE 324 MG TAB PO SCH (08:21)
[2019-01-30] MEDS: POTASSIUM CHLORIDE 20 MEQ TABCR PO SCH (08:21)
[2019-01-30] MEDS: CYANOCOBALAMIN 500 MCG TABLET (VITAMIN B-12) PO SCH (08:21)
[2019-01-30] MEDS: PANTOprazole 40 MG TAB PO SCH (08:21)
[2019-01-30] MEDS: INSULIN ASPART 100 UNITS/ML 3 ML PEN SC SCH ×4 (08:22→20:41)
[2019-01-30] MEDS: METOPROLOL SUCC 25MG EXT REL TAB PO SCH ×2 (08:22→17:06)
[2019-01-30] MEDS: ROSUVASTATIN CALCIUM 20 MG TAB PO SCH (08:22)
--- NOTE | 2019-01-30 15:37 | Hospitalist Progress Note ---
Date of Service January 30, 2019 Assessment & Plan (1) Acute renal failure superimposed on chronic kidney disease: presented with oliguric acute renal failure, possible ATN resolved Baseline creatinine 1.1, had recent contrast exposure a week ago for CT abdomen pelvis Creatinine worsened to 2 Presented with uremic symptoms of nausea vomiting, poor appetite and weakness, Creatinine elevated to more than 4/ hyperkalemia/poor urine output CT abdomen pelvis shows no obstructive uropathy, nephrology consulted, appreciate input No improvement with IV fluids, bicarb drip/required emergent dialysis Last HD Wednesday has not required dialysis for past 1 week currently on Lasix IV BID crea slowly increased from 2.4 to 3.6 urine output: remains at least 2 liters/day discussed with Dr. Sánchez nausea not likely from uremia HD not recommended anymore transition to PO lasix Nausea symptom has resolved normal appetite improved energy no evidence of uremia (2) Chronic anemia: History of anemia of chronic disease Worsening of anemia in the setting of acute renal failure s/p 2 units of PRBC transfused with dialysis post transfusion hb remains stable ~9 (3) Hyperkalemia, diminished renal excretion: Secondary to acute renal failure K level normalixed (4) Pericardial effusion: secondary to uremia/ Renal failure repeat limited ECHO 01/19: improved pericardial effusion with reduction in size Cardiology consulted on Prednisone 20 mg po daily now no chest pain Repeat echo 01/21/2019 showing improvement of pericardial effusion recommend Prednisone 20mg po gerardo 01/27/19, then slow taper x 8 weeks (5) History of renal carcinoma: Appreciate input from urology CT abdomen pelvis shows no evidence of obstructive uropathy No urological intervention needed Outpatient follow-up with urology Scheduled for January 2019 (6) Atrial fibrillation: Chronic A. fib, changed Carvedilol to Metoprolol Tartrate monitor on Heparin drip + coumadin coumadin increased to 10mg, usually on 5mg and 7.5mg alternating (7) Supratherapeutic INR: History of chronic A. fib, on Coumadin Presented with supratherapeutic INR more than 9 likely secondary to poor renal clearance Given vitamin K p.o. in ER Repeat INR 4 Given 1 unit of FFP, 5 mg of p.o. vitamin K prior to dialysis catheter placement coumadin resumed, with heparin bridge in light of history of CVA INR low subtherapeutic coumadin increased monitor (8) CAD (coronary artery disease): History of coronary artery disease status post PTCA Elevated troponin secondary to type II [place]/demand ischemia in the setting of acute renal failure, volume overload, pericardial effusion Cardiology following Echo shows no wall motion abnormality severe ischemic cardiomyopathy, unchanged from prior, with circumferential pericardial effusion new since last echo on 11/10/2019 chest pain free continue usual cardiac medications (9) DM type 2 (diabetes mellitus, type 2): Metformin on hold for acute renal failure acute illness Insulin sliding scale, pharmacy follow-up for glycemic management (10) Ischemic cardiomyopathy: History of ischemic cardiomyopathy EF of 35-40% status post AICD placement Losartan discontinued currently on Lasix IV monitor diuresis (11) CVA (cerebral vascular accident): Continue on aspirin, Plavix statin kept on hold for elevated transaminase continues to improve (12) Cardiac defibrillator in place: (13) Elevated LFTs: due to passive hepatic congestion /rt sided heart failure resolved (14) Elevated lactic acid level: Lactic acid level normalized No fever chills, stable vitals pro-calcitonin Within normal limit (15) Possible urinary tract infection: Urine culture positive for gram-positive cocci, enterococcus avium - pansensitive completed amoxicillin day 08/31 (16) Chronic right shoulder pain: Symptom improved with Lidoderm patch, heating pad Possible musculoskeletal, no limitation on range of motion CODE STATUS: Full code DVT prophylaxis: coumadin Disposition: Patient was living at home with , was independent in ADLs able to walk in hallway plan is to D/c home tomorrow with home health /home PT Subjective feels much better cr improved Physical Exam Vital Signs (Past 24 Hours): Last Vital Signs Temp 36.6 C 01/30/19 15:19 Pulse 96 H 01/30/19 15:19 Resp 19 01/30/19 15:19 BP 118/70 01/30/19 15:19 Pulse Ox 98 01/30/19 15:19 Constitutional: WD/WN, vitals as above no acute distress Eyes: + anicteric sclerae ENMT: Mouth: + dry oral mucous membranes Neck: trachea midline, no thyromegaly Respiratory: no respiratory distress, no labored breathing and no cough Auscultation: + rales (At base) Cardiovascular: Rate/Rhythm: + abnormal rhythm (chronic afib ) Extremities: normal capillary refill; no edema Gastrointestinal (Abdomen): Inspection/Auscultation: abdomen normal to inspection Percussion/Palpation: no hepatomegaly and no ascites Skin: no rashes, warm and dry Neurologic: PERRL, EOMI, accommodation nl, no face palsy, no dysarthria + confused Psychiatric: A+Ox3, euthymic affect (1) Acute renal failure superimposed on chronic kidney disease Acute renal failure type: with acute tubular necrosis Chronic kidney disease stage: stage 3 (moderate) Qualified Code(s): N17.0 - Acute kidney failure with tubular necrosis; N18.3 - Chronic kidney disease, stage 3 (moderate) (2) Atrial fibrillation Atrial fibrillation type: unspecified Qualified Code(s): I48.91 - Unspecified atrial fibrillation (3) CAD (coronary artery disease) Coronary Disease-Associated Artery/Lesion type: [place] artery [place] vs. transplanted heart: [place] heart Associated angina: without angina Qualified Code(s): I25.10 - Atherosclerotic heart disease of [place] coronary artery without angina pectoris (4) DM type 2 (diabetes mellitus, type 2) Diabetes mellitus half-way insulin use: without half-way use Diabetes mellitus complication status: with kidney complications Diabetes mellitus complication detail: with chronic kidney disease Chronic kidney disease stage: stage 4 (severe) Qualified Code(s): E11.22 - Type 2 diabetes mellitus with diabetic chronic kidney disease; N18.4 - Chronic kidney disease, stage 4 (severe) (5) CVA (cerebral vascular accident) CVA mechanism: unspecified Qualified Code(s): I63.9 - Cerebral infarction, unspecified
[2019-01-30] MEDS: WARFARIN SOD 10 MG TAB PO SCH (17:05)
--- NOTE | 2019-01-31 04:15 | Hospitalist Progress Note ---
Date of Service January 31, 2019 Assessment & Plan (1) Acute renal failure superimposed on chronic kidney disease: RESOLVED Cr remains stable ~3 , possible new baseline adequate urine output no indication for future dialysis will be discharged with Torsemide 80 mg daily weekly blood work : BMP to be followed at [facility] pt presented with oliguric acute renal failure, possible ATN Presented with uremic symptoms of nausea vomiting, poor appetite and weakness, Creatinine elevated to more than 4/ hyperkalemia/poor urine output CT abdomen pelvis shows no obstructive uropathy, nephrology consulted, appreciate input required emergent dialysis as there was No improvement with IV fluids, bicarb drip/required emergent dialysis renal function /urine out put gradually improved has not required dialysis since 01/20 pt will be followed closely with Dr caden [facility] in clinic will benefit with weekly BMP check for at least 2-3 weeks Home health visiting nursing arranged (2) Chronic anemia: History of anemia of chronic disease Worsening of anemia in the setting of acute renal failure s/p 2 units of PRBC transfusion this Admission with dialysis post transfusion hb remains stable ~9 (3) Hyperkalemia, diminished renal excretion: Secondary to acute renal failure K level normalized cont on Low K diet (4) Pericardial effusion: secondary to uremia/ Renal failure-had emegent dialysis possible viral vs inflammatory pericarditis ? pericardial effusion improved with IV solu medrol limited ECHO 01/19: improved pericardial effusion with reduction in size Cardiology following appreciate input pt denies of any chest pain or SOB/SANTOS /Orthopnea Repeat echo 01/21/2019 showing improvement of pericardial effusion recommend Prednisone 20mg po daily started on 01/27/19, then slow taper x 8 weeks (5) History of renal carcinoma: Appreciate input from urology CT abdomen pelvis shows no evidence of obstructive uropathy No urological intervention needed Outpatient follow-up with urology Scheduled for January 2019 (6) Atrial fibrillation: Chronic A. fib, changed Carvedilol to Metoprolol Tartrate Metorpolol dose increased to 75 mg PO BID for episodes of tachyarrythmia HR remains rate controlled after adjustment of beta bryan on Coumadin (7) Supratherapeutic INR: History of chronic A. fib, on Coumadin Presented with supratherapeutic INR more than 9 likely secondary to poor renal clearance Given vitamin K p.o. in ER Given 1 unit of FFP, 5 mg of p.o. vitamin K prior to dialysis catheter placement was started on Coumadin with IV heparin bridge ( chronic afib /prior hx of CVA ) IV heparin D/karly as INR theraputic cont Coumadin pt will cont to be followed with coag clinic (8) CAD (coronary artery disease): History of coronary artery disease status post PTCA Elevated troponin secondary to type II MD/demand ischemia in the setting of acute renal failure, volume overload, pericardial effusion Cardiology following Echo shows no wall motion abnormality severe ischemic cardiomyopathy, unchanged from prior, with circumferential pericardial effusion new since last echo on 11/10/2019 chest pain free continue usual cardiac medications metoprolol dose adjusted as above (9) DM type 2 (diabetes mellitus, type 2): Metformin on hold for acute renal failure acute illness Insulin sliding scale, pharmacy follow-up for glycemic management (10) Ischemic cardiomyopathy: History of ischemic cardiomyopathy EF of 35-40% status post AICD placement Losartan discontinued -TOBIN /hyperkalemia pt will be discharged on Torsemide 80 mg daily (11) CVA (cerebral vascular accident): Continue on aspirin, Plavix /statin (12) Cardiac defibrillator in place: (13) Elevated LFTs: due to passive hepatic congestion /rt sided heart failure resolved (14) Elevated lactic acid level: Lactic acid level normalized No fever chills, stable vitals pro-calcitonin Within normal limit (15) Possible urinary tract infection: Urine culture positive for gram-positive cocci, enterococcus avium - pansensitive completed amoxicillin day 08/31 (16) Chronic right shoulder pain: Symptom improved with Lidoderm patch, heating pad Possible musculoskeletal, no limitation on range of motion CODE STATUS: Full code DVT prophylaxis: coumadin Disposition: Patient was living at home with , was independent in ADLs able to walk in hallway plan is to D/c home tomorrow with home health /home PT updated given to Grace over phone Subjective EDITED PROGRESS NOTE FOR 01/30/19 pt was seen approx 3 pm pt admitted with CHF vol overload , acute renal failure , hyperkalemia , large pericardial effusion underwent emergent dialysis had a long complicated hospital stay pt found sitting on chair , denies of any discomfort had nausea spell earlier has improved no SOB , no SANTOS afebrile Physical Exam Vital Signs (Past 24 Hours): Last Vital Signs Temp 36.5 C 01/31/19 03:49 Pulse 118 H 01/31/19 03:49 Resp 18 01/31/19 03:49 BP 120/84 01/31/19 03:49 Pulse Ox 96 01/31/19 03:49 Constitutional: WD/WN, vitals as above no acute distress Eyes: + anicteric sclerae ENMT: Mouth: + dry oral mucous membranes Neck: trachea midline, no thyromegaly Respiratory: no respiratory distress, no labored breathing and no cough Auscultation: + rales ([place]) Cardiovascular: Rate/Rhythm: + abnormal rhythm (chronic afib ) Extremities: normal capillary refill; no edema Gastrointestinal (Abdomen): Inspection/Auscultation: abdomen normal to inspection Percussion/Palpation: no hepatomegaly and no ascites Skin: no rashes, warm and dry Neurologic: PERRL, EOMI, accommodation nl, no face palsy, no dysarthria Psychiatric: A+Ox3, euthymic affect (1) DM type 2 (diabetes mellitus, type 2) Chronic kidney disease stage: stage 4 (severe) Diabetes mellitus complication detail: with chronic kidney disease Diabetes mellitus complication status: with kidney complications Diabetes mellitus snf insulin use: without intermediate manager use Qualified Code(s): E11.22 - Type 2 diabetes mellitus with diabetic chronic kidney disease; N18.4 - Chronic kidney disease, stage 4 (severe) (2) CAD (coronary artery disease) Associated angina: without angina Coronary Disease-Associated Artery/Lesion type: [place] artery [place] vs. transplanted heart: [place] heart Qualified Code(s): I25.10 - Atherosclerotic heart disease of [place] coronary artery without angina pectoris (3) Atrial fibrillation Atrial fibrillation type: unspecified Qualified Code(s): I48.91 - Unspecified atrial fibrillation (4) Acute renal failure superimposed on chronic kidney disease Acute renal failure type: with acute tubular necrosis Chronic kidney disease stage: stage 3 (moderate) Qualified Code(s): N17.0 - Acute kidney failure with tubular necrosis; N18.3 - Chronic kidney disease, stage 3 (moderate) (5) CVA (cerebral vascular accident) CVA mechanism: unspecified Qualified Code(s): I63.9 - Cerebral infarction, unspecified
[2019-01-31 07:07] LABS: Prothrombin Time 39.8 Seconds (9.0-12.0)
[2019-01-31 07:19] LABS: BUN Creatinine Ratio 23.4 (10-20); Calcium 9.1 mg/dl (8.5-10.1); Creatinine Clr Calc Pharmacy 17.9 ml/min; Est GFR (African American) 18.4; Est GFR (Non-African American) 15.9; Potassium 4.1 mmol/L (3.5-5.1)
[2019-01-31 07:21] LABS: INR 4.3 (0.9-1.1)
[2019-01-31] MEDS: FERROUS GLUCONATE 324 MG TAB PO SCH (07:33)
[2019-01-31] MEDS: METOPROLOL SUCC 25MG EXT REL TAB PO SCH (07:33)
[2019-01-31] MEDS: CLOPIDOGREL BISULFATE 75 MG TAB PO SCH (07:33)
[2019-01-31] MEDS: predniSONE 10 MG TABLET PO SCH (07:33)
[2019-01-31] MEDS: TORSEMIDE 20 MG TAB PO SCH (07:33)
[2019-01-31] MEDS: ROSUVASTATIN CALCIUM 20 MG TAB PO SCH (07:34)
[2019-01-31] MEDS: POTASSIUM CHLORIDE 20 MEQ TABCR PO SCH (07:34)
[2019-01-31] MEDS: PANTOprazole 40 MG TAB PO SCH (07:34)
[2019-01-31] MEDS: CYANOCOBALAMIN 500 MCG TABLET (VITAMIN B-12) PO SCH (07:36)
[2019-01-31] MEDS: INSULIN ASPART 100 UNITS/ML 3 ML PEN SC SCH ×4 (07:36→20:44)
--- NOTE | 2019-01-31 09:40 | Nephrology Progress Note ---
Date of Service January 31, 2019 Assessment & Plan (1) Acute renal failure superimposed on chronic kidney disease: complex pt w/ baseline creatinine 1.7, 1.9 10 days prior to admission and presentied 01/13 w/ creatinine 4.7, hyperkalemia and pericardial effusion verified on TTE. He required dialysis but has been off dialysis since 01/20. Urine output about 1 L. Creatinine plateau'd at 3.5. Unclear if vomiting is from uremia as BUN not very high. No need for dialysis today. We will continue to monitor closely. -We will continue torsemide 80 mg daily>will assess for need ->>orders are in for 2X weekly bmp x 2 wks; also has appt 02/20 in [facility] 0900 w/ YSABEL Cullen -consider repeating UA tomorrow-order in (2) History of renal carcinoma: followed by urology; s/p R cryoablation w/ stable imaging; hx of significant lower urinary tract anatomic obstruction >> no voiding issues currently (3) HTN (hypertension): -BP controlled and intermittently on the lower side likely in setting of A. fib. Continue metoprolol for rate control Subjective seen on rounds this am; gets some N w/ pills, states he takes 15 qAM; denies voiding issues; does notfeel palpitations; does have minimal edema bl legs. no cough or sob. no rash. no focal weakness/numbness. no bleeding though INR 4 today Physical Exam Vital Signs (Past 24 Hours): Last Vital Signs Temp 36.7 C 01/31/19 07:10 Pulse 113 H 01/31/19 07:10 Resp 21 01/31/19 07:10 BP 111/64 01/31/19 07:10 Pulse Ox 95 01/31/19 07:10 Constitutional: well developed, well nourished, well groomed and comfortable sitting up in chair on ra Eyes: EOM intact bilaterally ENMT: Ears: no external ear abnormality Nose: no external nose abnormality Mouth: + dry oral mucous membranes Neck: no nuchal rigidity Respiratory: normal respiratory effort; no labored breathing Auscultation: + diminished lung sounds Cardiovascular: Rate/Rhythm: + tachycardic (in 110s w/ leaning forward); + abnormal rhythm Extremities: + edema (L leg 2+ and R leg trace-1+) Gastrointestinal (Abdomen): Inspection/Auscultation: normal bowel sounds Percussion/Palpation: abdomen soft; abdomen nontender Musculoskeletal: Extremities: strength 5/5 throughout Skin: no rashes, warm and dry Neurologic: hoffman, fluent speech, no tremor Psychiatric: Orientation: alert, oriented to person, oriented to place and cooperative Genitourinary: no browning Results & Data Laboratory Results Abnormal lab results 01/30/19 01/30/19 01/30/19 Range/Units 11:51 16:42 20:26 PT (9.0-12.0) Seconds INR (0.9-1.1) BUN (7-18) mg/dl Creatinine (0.6-1.4) mg/dl BUN/Creatinine Ratio (10-20) POC Glucose 134 H 202 H 135 H (70-99) 01/31/19 01/31/19 01/31/19 Range/Units 06:33 06:33 07:14 PT 39.8 H (9.0-12.0) Seconds INR 4.3 H (0.9-1.1) BUN 81 H (7-18) mg/dl Creatinine 3.46 H (0.6-1.4) mg/dl BUN/Creatinine Ratio 23.4 H (10-20) POC Glucose 111 H (70-99) (1) Acute renal failure superimposed on chronic kidney disease Acute renal failure type: with acute tubular necrosis Chronic kidney disease stage: stage 3 (moderate) Qualified Code(s): N17.0 - Acute kidney failure with tubular necrosis; N18.3 - Chronic kidney disease, stage 3 (moderate)
--- NOTE | 2019-01-31 11:12 | Hospitalist Progress Note ---
Date of Service January 31, 2019 Assessment & Plan (1) Supratherapeutic INR: INR trended from 3 yesterday to 4.3 today. Warfarin 10 mg dose given the last 3 days. Holding warfarin dose today and will likely change warfarin dosing back to his home regimen which is 5 mg daily with 7.5 mg given on Mondays and Fridays. (2) Acute renal failure superimposed on chronic kidney disease: resolved, UOP has improved. Creatinine has plateaued at 3.5. Nephro plan for discharge on torsemide with weekly labs and close followup as outpatient (3) Chronic anemia: History of anemia of chronic disease with a baseline hemoglobin 8-9 for the past 2 years. Worsening of anemia in the setting of acute renal failure s/p 2 units of PRBC transfusion this Admission with dialysis post transfusion hb remains stable ~9 (4) Hyperkalemia, diminished renal excretion: Resolved (5) Pericardial effusion: Pericardial effusion secondary to uremia.continues on prednisone taper. Secondary to uremia/ Renal failure-had emegent dialysis Last echo on 01/22 revealed a trivial pericardial effusion that had improved. Plan for taper 8 weeks (6) History of renal carcinoma: No evidence of obstructive uropathy. Urology consulted but no intervention was needed this admission. Follow-up as outpatient. (7) Atrial fibrillation: Chronic. Rate controlled changed from carvedilol to metoprolol succinate. This was increased to 75 mg p.o. twice daily 2 days ago, however, heart rate remains in the low 100s. Discussed with cardiology. Will increase to 100 mg p.o. twice daily now (8) CAD (coronary artery disease): Stable, history of elevated troponin this admission secondary to demand ischemia in the setting of acute renal failure, volume overload and pericardial effusion. Cardiology was consulted and echo revealed no acute wall motion abnormalities. He does have a history of severe ischemic cardia myopathy that is unchanged. He is free of chest pain doing well clinically. Cont medical management. (9) DM type 2 (diabetes mellitus, type 2): Metformin on hold while hospitalized. Continue insulin per inpatient glycemic pharmacist. (10) Ischemic cardiomyopathy: History of ischemic cardiomyopathy EF of 35-40% status post AICD placement Losartan discontinued -TOBIN /hyperkalemia pt will be discharged on Torsemide 80 mg daily (11) CVA (cerebral vascular accident): Continue on aspirin, Plavix /statin (12) Cardiac defibrillator in place: (13) Elevated LFTs: due to passive hepatic congestion /rt sided heart failure resolved (14) Possible urinary tract infection: Urine culture positive for gram-positive cocci, enterococcus avium - pansensitive completed amoxicillin day 08/31 (15) Chronic right shoulder pain: Symptom improved with Lidoderm patch, heating pad Possible musculoskeletal, no limitation on range of motion (16) DVT prophylaxis: Coumadin DNR Dispo-to home with Home Health once INR is stabilized. Family declines rehab. Discussed plan with daughter today by phone. [facility] Subjective 78 yo M with recent overnight admission to [facility] on 01/03 for chest pain. After workup and evaluation by cardiology this was thought to be noncardiac musculoskeletal chest pain, and he was sent home with recommendations for Tylenol and ice. He returned to the ER on 01/12 for possible blocked hernia. He reported abdominal pain for several days and nausea. Lab work revealed anemia with H&H 7.8/24.4. A CT of the abdomen and pelvis without contrast revealed no bowel obstruction or focal bowel wall thickening, extensive colonic diverticulosis without acute diverticulitis, cirrhotic liver disease with a new moderate to large pericardial effusion and small volume abdominal pelvic ascites, large bilateral inguinal hernias containing nonobstructed loops of bowel. Physical exam did show significant abdominal tenderness with inguinal hernias that did not appear to be incarcerated. Lab work also revealed acute renal failure. BUN was 89, creatinine 5.25. Additionally, potassium was 5.5 and sodium was 133. He was admitted to the Hospitalist service. Baseline creatinine noted to be 1.9. Contrast-induced nephropathy was thought to be contributing to decline in renal function with a recent contrasted study on prior admission. Lasix and Cozaar was held and he was started on IV fluids. Echocardiogram was ordered to evaluate the pericardial effusion and Cardiology was consulted. This effusion was thought to be secondary to renal failure and was repeated later in the hospitalization subsequently reported as "trivial" and decreasing in size without intervention or medical therapy needed. Vitamin K 5 mg IV was given for INR of 9.2, in addition to fresh frozen plasma on 01/13. Urology was consulted for TOBIN in the setting of history of renal cell carcinoma, bladder outlet obstruction and known urethral stricture, however, no acute intervention was indicated. Nephrology was consulted for the acute renal failure. Emergent dialysis was started given subacute pericardial effusion on echo, anuria and ongoing hyperkalemia. Digoxin was discontinued this admission secondary to renal insufficiency. Elevated transaminase prompted a Gastroenterology consult. They suspected he had a mild component of acute liver injury from hypoperfusion to the liver and felt this would improve with continued efforts to maintain his blood pressure and in normal range as opposed to his chronic hypotension. His LFT injury was primarily a hepatocellular pattern. A liver ultrasound revealed cirrhosis with trace perihepatic ascites and nonspecific gallbladder wall thickening without cholelithiasis, likely secondary to underlying cirrhosis. There was no biliary ductal dilation. On 01/16 he received 2 units of leukocyte reduced red blood cells with hemodialysis. By 01/19 he was improved improving urine output and ultimately stopped dialysis on 01/20. Creatinine plateaued at 3.5. He is feeling well today, denies any pain. He denies any chest pain, shortness of breath and is asking to go home. His is initially in the room and she thinks he looks a little bit pale. He reports walking with assistance and with his walker in the hallway, which is his baseline. They declined rehab and are planning to go home with home health. He is tolerating p.o. but does not like the food here so he is on a liquid diet. I discussed with his that she can bring food in from home. He reports a complete resolution of nausea vomiting, and abdominal pain which initially brought him to the hospital. Physical Exam Vital Signs (Past 24 Hours): Last Vital Signs Temp 36.7 C 01/31/19 07:10 Pulse 113 H 01/31/19 07:10 Resp 21 01/31/19 07:10 BP 111/64 01/31/19 07:10 Pulse Ox 95 01/31/19 07:10 CONSTITUTIONAL: WNWD, vitals as above, generally well-appearing, elderly EYES: normal conjuctivae, no scleral icterus ENT: MMM RESPIRATORY: clear to auscultation bilaterally, no crackles, rales or wheezes, normal respiratory effort CARDIOVASCULAR: irreg rate and rhythm, S1 and 2 heard without murmurs, no gallops or rubs, trace lower extremity edema L>R GASTROINTESTINAL: normal bowel sounds, soft, nontender, nondistended MUSCULOSKELETAL: strength 5/5 throughout, head is normocephalic and atraumatic SKIN: warm and dry NEUROLOGIC: No facial palsy, no dysarthria. CN 2-12 grossly intact, no sensory deficit, normal cognition, normal speech PSYCHIATRIC: alert cooperative and oriented to person, place and time. Results & Data Laboratory Results Short CBC 01/12/19 01/15/19 Range/Units 23:08 22:11 Blood Type A Positive A Positive Antibody Screen NEGATIVE NEGATIVE Crossmatch See Detail See Detail BMP 01/31/19 06:33 Sodium 139 Potassium 4.1 Chloride 101 Carbon Dioxide 30 BUN 81 H Creatinine 3.46 H Glucose 95 Calcium 9.1 Medications Administered Current Inpatient Medications Acetaminophen (Tylenol) 650 mg PO Q4H PRN PRN Reason: Pain or Fever Stop: 02/11/19 22:49 Last Admin: 01/19/19 08:19 Dose: 650 mg Documented by: Al Hydrox/Mg Hydrox/Simethicone (Maalox) 15 ml PO Q4H PRN PRN Reason: Dyspepsia Stop: 02/11/19 22:49 Clopidogrel [facility] (Plavix) [facility] Stop: 02/12/19 08:59 Last Admin: 01/31/19 07:33 Dose: 75 mg Documented by: Cyanocobalamin (Vitamin B-12) 1,000 mcg PO QAM [facility]AVAN Stop: 02/12/19 08:59 Last Admin: 01/31/19 07:36 Dose: 1,000 mcg Documented by: Dextrose (Dextrose 50%) 25 - 50 ml IV UD PRN; Protocol PRN Reason: Hypoglycemia Protocol Stop: 02/11/19 23:03 Ferrous Gluconate (Ferrous Gluconate) 324 [facility] Stop: 02/12/19 08:59 Last Admin: 01/31/19 07:33 Dose: 324 mg Documented by: Glucagon (Glucagen) 1 mg SQ UD PRN; Protocol PRN Reason: Hypoglycemia Protocol Stop: 02/11/19 23:03 Glucose (Glucose 40%) 15 - 30 gm PO UD PRN; Protocol PRN Reason: Hypoglycemia Protocol Stop: 02/11/19 23:03 Glucose (Dex4 Glucose) 4 - 8 tabs PO UD PRN; Protocol PRN Reason: Hypoglycemia Protocol Stop: 02/11/19 23:03 Heparin Sodium (Beef Lung) (Heparin Sod 10 Unit/Ml Flush) 5 ml FLUSH PRN PRN PRN Reason: Flush Stop: 02/15/19 03:31 Prochlorperazine 10 mg/ (Syringe) 10 mls @ 5 mls/min IV Q6H PRN PRN Reason: Nausea And Vomiting Stop: 02/14/19 00:02 Last Admin: 01/30/19 01:10 Dose: 5 mls/min Documented by: Sodium Chloride (Nss 250ml) 250 mls @ 15 mls/hr IV .[id number] PRN PRN Reason: For Transfusion Stop: 02/15/19 06:51 Insulin Aspart (Novolog Flexpen) 0 units SC ACHS [facility] Stop: 02/13/19 07:59 Last Admin: 01/31/19 07:36 Dose: 3 units Documented by: Metoprolol Succinate (Toprol Xl) 75 mg PO BID17 [facility] Stop: 02/28/19 16:59 Last Admin: 01/31/19 07:33 Dose: 75 mg Documented by: Miscellaneous (Carbohydrates For Hypoglycemia) 15 - 30 gm PO UD PRN PRN Reason: Hypoglycemia Treatment Stop: 02/11/19 23:03 Nitroglycerin (Nitrostat) 0.4 mg SL UD PRN PRN Reason: Chest Pain Stop: 02/11/19 22:49 Pantoprazole Sodium (Protonix) [facility] Stop: 02/17/19 08:59 Last Admin: 01/31/19 07:34 Dose: 40 mg Documented by: Potassium Chloride (Klor-Con M20) 40 meq PO QAM [facility] Stop: 02/23/19 13:14 Last Admin: 01/31/19 07:34 Dose: 40 meq Documented by: Prednisone (Prednisone) 20 mg PO DAILY [facility] Stop: 02/27/19 08:59 Last Admin: 01/31/19 07:33 Dose: 20 mg Documented by: Rosuvastatin Calcium (Crestor) 20 mg PO QAM [facility] Stop: 02/28/19 11:29 Last Admin: 01/31/19 07:34 Dose: 20 mg Documented by: Sertraline HCl (Zoloft) 50 mg PO QAM [facility] Stop: 02/12/19 08:59 Last Admin: 01/13/19 07:51 Dose: 50 mg Documented by: Torsemide (Demadex) 80 [facility] Stop: 02/28/19 08:59 Last Admin: 01/31/19 07:33 Dose: 80 mg Documented by: Warfarin Sodium (Coumadin) 10 mg PO DAILY@1600 [facility] Stop: 02/27/19 15:59 Last Admin: 01/30/19 17:05 Dose: 10 mg Documented by: (1) DM type 2 (diabetes mellitus, type 2) Chronic kidney disease stage: stage 4 (severe) Diabetes mellitus complication detail: with chronic kidney disease Diabetes mellitus complication status: with kidney complications 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 transplanted heart: [place] heart Qualified Code(s): I25.10 - Atherosclerotic heart disease of [place] coronary artery without angina pectoris (3) Atrial fibrillation Atrial fibrillation type: unspecified Qualified Code(s): I48.91 - Unspecified atrial fibrillation (4) Acute renal failure superimposed on chronic kidney disease Acute renal failure type: with acute tubular necrosis Chronic kidney disease stage: stage 3 (moderate) Qualified Code(s): N17.0 - Acute kidney failure with tubular necrosis; N18.3 - Chronic kidney disease, stage 3 (moderate) (5) CVA (cerebral vascular accident) CVA mechanism: unspecified Qualified Code(s): I63.9 - Cerebral infarction, unspecified
[2019-01-31] MEDS: METOPROLOL SUCC 50MG EXT REL TAB PO SCH (17:53)
[2019-01-31] MEDS: TESTOSTERONE: ORDER AWAITING ACTION SCH (20:45)
[2019-02-01] MEDS: TESTOSTERONE: ORDER AWAITING ACTION SCH ×3 (00:18→15:50)
[2019-02-01] MEDS ORDERED: PROCHLORPERAZINE MALEATE 5 MG TAB PO PRN (01:46)
[2019-02-01 07:20] LABS: Prothrombin Time 42.9 Seconds (9.0-12.0)
[2019-02-01 07:22] LABS: INR 4.7 (0.9-1.1)
[2019-02-01] MEDS: INSULIN ASPART 100 UNITS/ML 3 ML PEN SC SCH ×3 (08:23→17:14)
[2019-02-01] MEDS: TORSEMIDE 20 MG TAB PO SCH (08:24)
[2019-02-01] MEDS: ROSUVASTATIN CALCIUM 20 MG TAB PO SCH (08:24)
[2019-02-01] MEDS: FERROUS GLUCONATE 324 MG TAB PO SCH (08:25)
[2019-02-01] MEDS: CLOPIDOGREL BISULFATE 75 MG TAB PO SCH (08:25)
[2019-02-01] MEDS: POTASSIUM CHLORIDE 20 MEQ TABCR PO SCH (08:25)
[2019-02-01] MEDS: predniSONE 10 MG TABLET PO SCH (08:25)
[2019-02-01] MEDS: METOPROLOL SUCC 50MG EXT REL TAB PO SCH ×2 (08:26→17:15)
[2019-02-01] MEDS: CYANOCOBALAMIN 500 MCG TABLET (VITAMIN B-12) PO SCH (08:26)
[2019-02-01] MEDS: PANTOprazole 40 MG TAB PO SCH (08:29)
[2019-02-01 08:48] LABS: Appearance Urine Clear (Clear); Bilirubin Urine Negative (Negative); Blood Urine Negative (Negative); Color Urine Yellow; Glucose Urine UA Negative (Negative); Ketones Urine Negative (Negative); Leukocyte Esterase Urine Negative (Negative); Nitrite Urine Negative (Negative); Protein Urine Negative (Negative); Specific Gravity Urine 1.012 (1.000-1.030); Urobilinogen Urine Negative (Negative)
[2019-02-01] MEDS: SERTRALINE HCL 50 MG TABLET PO SCH (10:53)
[2019-02-01 16:09] VITALS: BP 138/86; PULSE 96; TEMP 97.9; O2SAT 96
--- NOTE | 2019-02-02 10:59 | Communication Note ---
Date of Service: February 02, 2019
--- NOTE | 2019-02-02 11:06 | History & Physical Report ---
Date of Service February 02, 2019 Assessment & Plan (1) Supratherapeutic INR: INR trended from 3 yesterday to 4.3 today. Warfarin 10 mg dose given the last 3 days. Holding warfarin dose today and will likely change warfarin dosing back to his home regimen which is 5 mg daily with 7.5 mg given on Mondays and Fridays. (2) Acute renal failure superimposed on chronic kidney disease: resolved, UOP has improved. Creatinine has plateaued at 3.5. Nephro plan for discharge on torsemide with weekly labs and close followup as outpatient (3) Chronic anemia: History of anemia of chronic disease with a baseline hemoglobin 8-9 for the past 2 years. Worsening of anemia in the setting of acute renal failure s/p 2 units of PRBC transfusion this Admission with dialysis post transfusion hb remains stable ~9 (4) Hyperkalemia, diminished renal excretion: Resolved (5) Pericardial effusion: Pericardial effusion secondary to uremia.continues on prednisone taper. Secondary to uremia/ Renal failure-had [facility] Last echo on 01/22 revealed a trivial pericardial effusion that had improved. Plan for taper 8 weeks (6) History of renal carcinoma: No evidence of obstructive uropathy. Urology consulted but no intervention was needed this admission. Follow-up as outpatient. (7) Atrial fibrillation: Chronic. Rate controlled changed from carvedilol to metoprolol succinate. This was increased to 75 mg p.o. twice daily 2 days ago, however, heart rate remains in the low 100s. Discussed with cardiology. Will increase to 100 mg p.o. twice daily now (8) CAD (coronary artery disease): Stable, history of elevated troponin this admission secondary to demand ischemia in the setting of acute renal failure, volume overload and pericardial effusion. Cardiology was consulted and echo revealed no acute wall motion abnormalities. He does have a history of severe ischemic cardia myopathy that is unchanged. He is free of chest pain doing well clinically. Cont medical management. (9) DM type 2 (diabetes mellitus, type 2): Metformin on hold while hospitalized. Continue insulin per inpatient glycemic pharmacist. (10) Ischemic cardiomyopathy: History of ischemic cardiomyopathy EF of 35-40% status post AICD placement Losartan discontinued -TOBIN /hyperkalemia pt will be discharged on Torsemide 80 mg daily (11) CVA (cerebral vascular accident): Continue on aspirin, Plavix /statin (12) Cardiac defibrillator in place: (13) Elevated LFTs: due to passive hepatic congestion /rt sided heart failure resolved (14) Possible urinary tract infection: Urine culture positive for gram-positive cocci, enterococcus avium - pansensitive completed amoxicillin day 08/31 (15) Chronic right shoulder pain: Symptom improved with Lidoderm patch, heating pad Possible musculoskeletal, no limitation on range of motion (16) DVT prophylaxis: Coumadin DNR Dispo-to home with Home Health once INR is stabilized. Family declines rehab. Discussed plan with daughter today by phone. [facility] History of Present Illness Chief Complaint: Nausea and vomiting Primary Care Provider: Shade Thomas 78-year-old man recently admitted for worsening of stage IV chronic kidney disease and pericardial effusion, who was discharged from the hospital yesterday, presents this morning with dry heaves and nausea overnight. Although the patient reported a resolution of nausea yesterday and for the past several days, evidently he had been having some nausea overnight consistently for about the last week. This would resolve and he would tolerate solid foods without issue. It is noted that he was off testosterone therapy while admitted for the last 3 weeks. He also recently started back on his sertraline yesterday mo rning. Multiple medications were changed, however, he denies any use of medications last night. Did not nausea and dry heaves were then followed by diffuse sweating and a headache. On arrival to the ER vital signs are stable from yesterday. He does have some resting tachycardia from his atrial fibrillation, for which metoprolol has been titrated recently. His EKG is unchanged. His blood work is about the same. His abdomen is benign on exam and he is reporting some residual discomfort in his stomach, but denies nausea. He frankly denies abdominal pain. He denies any diarrhea or change in stool overnight. He had reliably been having bowel movements per his report prior to leaving yesterday. Other workup included a CT of the abdomen and pelvis which revealed no evidence of bowel obstruction, no evidence of free air, diverticulosis with no evidence of acute diverticulitis, suspected hepatic cirrhosis, indeterminate 19 mm mid pole right renal mass, bowel containing bilateral inguinal hernias with no obstructive changes noted. The patient is of sound mind and body and is requesting to go home, adamantly. However, his daughter who is at bedside and his via cell phone are both insisting that he stay as they are taking care of him. Allergies Allergy/AdvReac Type Severity Reaction Status Date / Time fentanyl Allergy Severe Decreased Verified 02/02/19 07:07 oxygen saturation, low RR, unresponsive midazolam Allergy Severe Decreased Verified 02/02/19 07:07 oxygen saturation, low RR, unresponsive. codeine Allergy Unknown GI SYMPTOMS Verified 02/02/19 07:07 BRIANA Inhibitors AdvReac Mild cough, Verified 02/02/19 07:07 cefuroxime AdvReac Mild GI SYMPTOMS Verified 02/02/19 07:07 Home Medications Home Medications Medication Instructions Recorded Confirmed Type TESTOSTERONE GEL 1 applic TOPICAL QAM #0 10/12/17 02/02/19 History clopidogrel [Plavix] 75 mg PO QAM 08/16/18 02/02/19 History coenzyme Q10 [Co Q-10] 10 mg PO QAM 08/16/18 02/02/19 History cyanocobalamin (vitamin B-12) 1,000 mcg PO QAM 08/16/18 02/02/19 History ferrous gluconate 324 mg PO QAM 08/16/18 02/02/19 History multivitamin [Multiple Vitamins] 1 tab PO QAM 08/16/18 02/02/19 History nitroglycerin [Nitrostat] 0.4 mg SUBLINGUAL UD PRN 08/16/18 02/02/19 History pantoprazole [Protonix] 40 mg PO QAM 08/16/18 02/02/19 History rosuvastatin [Crestor] 20 mg PO QAM 08/16/18 02/02/19 History sertraline 50 mg PO QAM 08/16/18 02/02/19 History torsemide 80 mg PO QAM 30 Days #120 tab 01/29/19 02/02/19 Rx glipizide 2.5 mg PO BID #30 tab 02/01/19 02/02/19 Rx metoprolol succinate 100 mg PO BID17 #60 tab 02/01/19 02/02/19 Rx potassium chloride [Klor-Con M20] 40 meq PO QAM #30 tab 02/01/19 02/02/19 Rx prednisone 2.5 mg PO .taper #200 tab 02/01/19 02/02/19 Rx Past Med/Surg History Medical History Depression (Chronic) HTN (hypertension) (Chronic) History of renal carcinoma (Chronic) CKD (chronic kidney disease), stage III (Chronic) Chronic systolic heart failure (Chronic) Chronic anemia (Chronic) Atrial fibrillation (Chronic) CAD (coronary artery disease) (Chronic) "2005 - PCI to LAD cath 2011 - no significant obstructive disease" DM type 2 (diabetes mellitus, type 2) (Chronic) Ischemic cardiomyopathy (Chronic) "echo 08/2015 - EF 25-30%, moderate tricuspid regurgitation" CVA (cerebral vascular accident) (Chronic) Squamous cell carcinoma (Chronic) Basal cell carcinoma (Chronic) V tach (Chronic) "s/p AICD placement" Cardiac defibrillator in place (Chronic) Surgical History History of cataract surgery (Chronic) History of cardiac catheterization (Chronic) History of prior ablation treatment (Chronic) CT guided tissue ablation R kidney Family History Other CAD (coronary artery disease) Diabetes Stomach cancer Social History Preferred Language: [place] Beliefs That Will Affect Care: None marital status: Current Living Situation: Spouse Feels Safe at Home: Yes Smoking Status: Never smoker Hx Alcohol Use: No Hx Substance Use: No Physical Exam Vital Signs (Past 24 Hours): Last Vital Signs Temp 36.6 C 02/01/19 18:37 Pulse 96 H 02/01/19 18:37 Resp 19 02/01/19 18:37 BP 138/86 02/01/19 18:37 Pulse Ox 96 02/01/19 18:37 (1) Acute renal failure superimposed on chronic kidney disease Acute renal failure type: with acute tubular necrosis Chronic kidney disease stage: stage 3 (moderate) Qualified Code(s): N17.0 - Acute kidney failure with tubular necrosis; N18.3 - Chronic kidney disease, stage 3 (moderate) (2) Atrial fibrillation Atrial fibrillation type: unspecified Qualified Code(s): I48.91 - Unspecified atrial fibrillation (3) CAD (coronary artery disease) Coronary Disease-Associated Artery/Lesion type: [place] artery [place] vs. transplanted heart: [place] heart Associated angina: without angina Qualified Code(s): I25.10 - Atherosclerotic heart disease of [place] coronary artery without angina pectoris (4) DM type 2 (diabetes mellitus, type 2) Diabetes mellitus [facility] insulin use: without [facility] use Diabetes mellitus complication status: with kidney complications Diabetes mellitus complication detail: with chronic kidney disease Chronic kidney disease stage: stage 4 (severe) Qualified Code(s): E11.22 - Type 2 diabetes mellitus with diabetic chronic kidney disease; N18.4 - Chronic kidney disease, stage 4 (severe) (5) CVA (cerebral vascular accident) CVA mechanism: unspecified Qualified Code(s): I63.9 - Cerebral infarction, unspecified
--- NOTE | 2019-02-10 10:51 | Discharge Summary ---
Date of Service February 10, 2019 Admission Exam Per Admitting Provider Temp 36.4 C L 02/02/19 11:15 Pulse 97 H 02/02/19 11:15 Resp 16 02/02/19 11:15 BP 112/77 02/02/19 11:15 Pulse Ox 97 02/02/19 11:15 CONSTITUTIONAL: WNWD, vitals as above, generally well-appearing EYES: normal conjuctivae, no scleral icterus RESPIRATORY: clear to auscultation bilaterally, no crackles, rales or wheezes, normal respiratory effort CARDIOVASCULAR: regular rate and rhythm, S1 and 2 heard without murmurs, gallops or rubs, no JVD, no peripheral edema GASTROINTESTINAL: normal bowel sounds, soft, nontender, nondistended MUSCULOSKELETAL: strength 5/5 throughout, head is normocephalic and atraumatic SKIN: warm and dry NEUROLOGIC: No facial palsy, no dysarthria. CN 2-12 grossly intact, normal cognition, normal speech PSYCHIATRIC: alert cooperative and oriented Principal Diagnosis Nausea likely 2/2 steroid use Discharge Data Allergies Allergy/AdvReac Type Severity Reaction Status Date / Time fentanyl Allergy Severe Decreased Verified 02/02/19 07:07 oxygen saturation, low RR, unresponsive midazolam Allergy Severe Decreased Verified 02/02/19 07:07 oxygen saturation, low RR, unresponsive. codeine Allergy Unknown GI SYMPTOMS Verified 02/02/19 07:07 promethazine [From Phenergan] AdvReac Severe severe Verified 02/02/19 14:18 fatigue BRIANA Inhibitors AdvReac Mild cough, Verified 02/02/19 07:07 cefuroxime AdvReac Mild GI SYMPTOMS Verified 02/02/19 07:07 Consultations 01/12/19 21:05 ED Decision to Admit Stat 01/12/19 22:50 Consult Case Management - Discharge Planning Routine Consult Nephrology Routine 01/13/19 08:00 Consult Cardiology Routine Consult Urology Routine 01/13/19 16:16 Consult Medical Staff Director Routine 01/14/19 07:37 Consult Gastroenterology Routine Ordered Studies 01/12/19 18:43 CT abd pelvis wo con Stat 01/14/19 07:34 US liver Routine Hospital Course (1) Pericardial effusion: (2) Nausea: (3) Weakness: 78-year-old man recently hospitalized for greater than 3 weeks with pericardial effusion. He was started on prednisone for presumed pericarditis and had been taking this for approximately 1 week. Subsequently he was discharged home and reported to the ER the following day after a night of dry heaving and retching. Prednisone was promptly stopped and antiemetics were given as needed. Prior to discharge she was tolerating p.o. without issue. Continued all recommendations as per previous discharge instructions and follow- up with primary care closely. This was discussed with cardiology who was aware of the change in therapy. Total Time Total Time Spent Total Time Spent (In Minutes): 60 Total Time Includes: Examination of the Patient, Discharge Planning, Medication Reconciliation and Communication With Other Providers Discharge Plan Discharge Items Patient Disposition: Home - Home Health Services Reason For Visit: NAUSEA,WEAKNESS Discharge Diagnosis: Nausea likely 2/2 steroid use Discharge Goals: Decrease discomfort Activity: Resume your previous activity Non-emergency contact: Primary Care Provider Call non-emergency contact if: you have any medication questions Follow-up/Referrals: Dima Neil MD [Physician] - Alisson Martin MD, PhD [Physician] - Patricio Lou DO [Food Product Inspector] - Shade Thomas [Primary Care Provider] - Diet: Carb Consistent or DM2, Heart Healthy and Low Potassium (2gm) Addtl Provider Instructions: Please take all medications as instructed on discharge list below. You have an appointment with Lucina Cullen PA-C for [facility] nephrology on 02/20 at 9 AM at the [facility] location. You have nonfasting bloodwork to be done every Mon and Thurs at [facility]. Results will go to Dr. Alisson Olivares. You have an appointment with Dr. Thomas and primary care on Wednesday, 02/03 at 1:45 PM for follow-up of this hospitalization. Please bring all medication bottles with you to this appointment. It is recommended that you bring a written log of his blood sugars as checked at home. As discussed please hold Coumadin for the next 2 days, then check INR on 02/03. Staff from the anticoagulation clinic should contact you with the results. If you do not hear something near the end of the day please contact the Coumadin clinic for further instructions. My recommendation would be to restart his Coumadin as dosed prior to hospitalization if his INR is less than 3.5. His resting heart rate is near 100 bpm despite increases in his beta-bryan, metoprolol. This may require a cardiology follow-up as outpatient in the next few weeks to continue to titrate this medication. Please continue an 7-week taper of prednisone as instructed: Week 1: 17.5mg daily (7 tabs) Week 2: 15mg daily (6 tabs) Week 3: 12.5mg daily (5 tabs) Week 4: 10mg daily (4 tabs) Week 5: 7.5mg daily (3 tabs) Week 6: 5mg daily (2 tabs) Week 7: 2.5mg daily (1 tab) Then STOP Someone from [facility] should be contacting you tomorrow for a visit. It was a pleasure taking care of you! Please call if you have any questions or problems. You can reach a [facility] hospitalist on duty at [facility] 24 hours a day by calling [phone]. Take care of yourself. Chelly Irving, DO [facility] Pres[facility]: New metoprolol succinate 50 mg Tablet Extended Release 24 Hr 100 mg PO BID17 Qty: 60 RF: 1 glipizide 5 mg tablet 2.5 mg PO BID Qty: 30 RF: 1 Continued TESTOSTERONE GEL 1 applic Topical QAM Qty: 0 RF: 0 pantoprazole [Protonix] 40 mg Tablet,Delayed Release (Dr/Ec) 40 mg PO QAM RF: 0 nitroglycerin [Nitrostat] 0.4 mg Tablet, Sublingual 0.4 mg Sublingual UD PRN (Reason: Chest Pain) RF: 0 clopidogrel [Plavix] 75 mg Tablet 75 mg PO QAM RF: 0 sertraline 50 mg Tablet 50 mg PO QAM RF: 0 coenzyme Q10 [Co Q-10] 10 mg Capsule 10 mg PO QAM RF: 0 cyanocobalamin (vitamin B-12) 1,000 mcg Tablet 1,000 mcg PO QAM RF: 0 ferrous gluconate 324 mg (37.5 mg iron) Tablet 324 mg PO QAM RF: 0 rosuvastatin [Crestor] 20 mg Tablet 20 mg PO QAM RF: 0 multivitamin [Multiple Vitamins] Tablet 1 tab PO QAM RF: 0 Discontinued Toviaz 8 mg Tablet Extended Release 24 Hr 8 mg PO DAILY RF: 0 Myrbetriq 25 mg Tablet Extended Release 24 Hr 25 mg PO DAILY RF: 0 carvedilol 6.25 mg Tablet 6.25 mg PO BIDM RF: 0 metformin 1,000 mg Tablet Extended Release 24hr 1,000 mg PO QAM RF: 0 losartan 25 mg Tablet 25 mg PO QAM RF: 0 warfarin [Coumadin] 7.5 mg Tablet 7.5 mg PO 2XWK RF: 0 warfarin [Coumadin] 5 mg Tablet 5 mg PO 5XWK RF: 0 digoxin 125 mcg Tablet 0.125 mg PO Q2D RF: 0 furosemide 20 mg Tablet 60 mg PO QAM RF: 0 No Action torsemide 20 mg Tablet 80 mg PO QAM 30 Days Qty: 120 RF: 1 warfarin 5 mg Tablet See Rx Instructions .ROUTE .COMPLEX RF: 0 potassium chloride [Klor-Con M20] 20 mEq Tablet,Er Particles/Crystals 20 meq PO QAM Qty: 30 RF: 1 Stand-Alone Forms: [facility] Discharge Orders: Discharge Order (Routine); Ordered 02/01/19 Ordered By: Chelly Irving Admission Data Admit Date/Time: 01/12/19 21:57 Attending Provider: Chelly Irving Admit Provider: Willi Keene Primary Care Provider: Shade Thomas Other Providers: Willi Keene ; Alisson Martin ; Edith Jimenez ; Tapan Syed I. ; Patricio Lou ; Georgina Gilbert ; Lexi Johnson ; Aditya Jimenez ; Yuval Smith ; Jamie Garcia ; Mahendra Sánchez ; Rodrigo Alexander Service: Telemetry Other Interventions: Discharge Summary Assessment (RN) Last Done: 02/01/19 18:37 DC Date/Time DO NOT enter until pt leaves facility: 02/01/19 19:04
--- NOTE | 2019-02-12 16:04 | Discharge Summary ---
Date of Service February 12, 2019 Admission HPI Per Admitting Provider HISTORY OF PRESENT ILLNESS: This is a 78-year-old male with past medical history significant for cirrhosis of liver, chronic kidney disease stage III, history of renal carcinoma right status post ablation, history of left middle cerebral artery stroke in 2015, history of [place], history of combined ischemic-nonischemic cardiomyopathy, last EF of around 40%, CAD status post stent, history of sustained ventricular tachycardia status post defibrillator, history of iron deficiency anemia, history of atrial fibrillation, hypogonadism, diabetes, was brought in because of nausea and abdominal discomfort. The patient was recently in the hospital for chest pain and shoulder pain thought to be from musculoskeletal pain and discharged home. He is also having inguinal hernias and is following with surgery. He is supposed to follow with surgery again in the next few days, but since couple of days he has been nauseous. He is eating okay, but he is feeling nauseous and also having some abdominal discomfort. He is getting weak and has not been getting better, so he was brought into the hospital and his labs showed his creatinine went up to 4.7 and his CAT scan of the abdomen and pelvis showed possible cystitis and [id number] pericardial effusions so we are called for admission. The patient currently is somewhat weak and tired but states his nausea is better, still has some abdominal discomfort. Denies any chest pain. Denies shortness of breath, no headache. No blurred visions. Somewhat hard to hear. Has some dry cough on and off. No difficulty swallowing. No vomiting, moved his bowels okay, but there is no blood in the stools. As per family, he is not eating much since last couple of days. The patient is afebrile. No rash seen. Admission Exam Per Admitting Provider PHYSICAL EXAMINATION: GENERAL: The patient is of moderate built, not in acute distress. VITAL SIGNS: Temperature 36.6, pulse 79, respiratory rate 18, blood pressure 95/68, oxygen 95% on room air. HEENT: No pallor, no icterus. Pupils equal, round, and react to light. NECK: No JVD. No neck masses. No carotid bruits. CARDIOVASCULAR: S1, S2 heard, regular rate and rhythm, no murmur, no gallop. RESPIRATORY SYSTEM: Normal AP diameter. No accessory muscle use. No wheezing, no crackles. ABDOMEN: Soft, bowel sounds. Mild diffuse discomfort. No rigidity. No distention. CENTRAL NERVOUS SYSTEM: Alert and oriented. Nonfocal. EXTREMITIES: Trace pedal edema, no erythema seen. Discharge Data Allergies Allergy/AdvReac Type Severity Reaction Status Date / Time fentanyl Allergy Severe Decreased Verified 02/02/19 07:07 oxygen saturation, low RR, unresponsive midazolam Allergy Severe Decreased Verified 02/02/19 07:07 oxygen saturation, low RR, unresponsive. codeine Allergy Unknown GI SYMPTOMS Verified 02/02/19 07:07 promethazine [From Phenergan] AdvReac Severe severe Verified 02/02/19 14:18 fatigue BRIANA Inhibitors AdvReac Mild cough, Verified 02/02/19 07:07 cefuroxime AdvReac Mild GI SYMPTOMS Verified 02/02/19 07:07 Consultations 01/12/19 21:05 ED Decision to Admit Stat 01/12/19 22:50 Consult Case Management - Discharge Planning Routine Consult Nephrology Routine 01/13/19 08:00 Consult Cardiology Routine Consult Urology Routine 01/13/19 16:16 Consult Revenue Integrity Analyst Routine 01/14/19 07:37 Consult Gastroenterology Routine Ordered Studies 01/12/19 18:43 CT abd pelvis wo con Stat 01/14/19 07:34 US liver Routine Hospital Course (1) Pericardial effusion: Pericardial effusion secondary to uremia.continues on prednisone taper. Secondary to uremia/ Renal failure-had emegent dialysis Last echo on 01/22 revealed a trivial pericardial effusion that had improved. Plan for taper 8 weeks (2) Nausea: (3) Weakness: 78-year-old man recently hospitalized for greater than 3 weeks with pericardial effusion. He was started on prednisone for presumed pericarditis and had been taking this for approximately 1 week. Subsequently he was discharged home and reported to the ER the following day after a night of dry heaving and retching. Prednisone was promptly stopped and antiemetics were given as needed. Prior to discharge she was tolerating p.o. without issue. Continued all recommendations as per previous discharge instructions and follow- up with primary care closely. This was discussed with cardiology who was aware of the change in therapy. Discharge Plan Discharge Items Patient Disposition: Home - Home Health Services Reason For Visit: NAUSEA,WEAKNESS Discharge Diagnosis: Nausea likely 2/2 steroid use Discharge Goals: Decrease discomfort Activity: Resume your previous activity Non-emergency contact: Primary Care Provider Call non-emergency contact if: you have any medication questions Follow-up/Referrals: Dima Neil MD [Physician] - Alisson Martin MD, PhD [Physician] - Patricio Lou DO [Director Software Quality Assurance] - Shade Thomas [Primary Care Provider] - Diet: Carb Consistent or DM2, Heart Healthy and Low Potassium (2gm) Addtl Provider Instructions: Please take all medications as instructed on discharge list below. You have an appointment with Lucina Cullen PA-C for [facility] nephrology on 02/20 at 9 AM at the [facility] location. You have nonfasting bloodwork to be done every Wed and Th at [facility]. Results will go to Dr. Alisson Olivares. You have an appointment with Dr. Thomas and primary care on Wednesday, 02/03 at 1:45 PM for follow-up of this hospitalization. Please bring all medication bottles with you to this appointment. It is recommended that you bring a written log of his blood sugars as checked at home. As discussed please hold Coumadin for the next 2 days, then check INR on 02/03. Staff from the anticoagulation clinic should contact you with the results. If you do not hear something near the end of the day please contact the Coumadin clinic for further instructions. My recommendation would be to restart his Coumadin as dosed prior to hospitalization if his INR is less than 3.5. Your resting heart rate is near 100 bpm despite increases in his beta-bryan, metoprolol. This may require a cardiology follow-up as outpatient in the next few weeks to continue to titrate this medication. Please continue an 7-week taper of prednisone as instructed: Week 1: 17.5mg daily (7 tabs) Week 2: 15mg daily (6 tabs) Week 3: 12.5mg daily (5 tabs) Week 4: 10mg daily (4 tabs) Week 5: 7.5mg daily (3 tabs) Week 6: 5mg daily (2 tabs) Week 7: 2.5mg daily (1 tab) Then STOP Someone from [facility] should be contacting you tomorrow for a visit. It was a pleasure taking care of you! Please call if you have any questions or problems. You can reach a [facility] hospitalist on duty at [facility] 24 hours a day by calling [phone]. Take care of yourself. DO [facility] Hospitalist Prescriptions: New metoprolol succinate 50 mg Tablet Extended Release 24 Hr 100 mg PO BID17 Qty: 60 RF: 1 glipizide 5 mg tablet 2.5 mg PO BID Qty: 30 RF: 1 Continued TESTOSTERONE GEL 1 applic Topical QAM Qty: 0 RF: 0 pantoprazole [Protonix] 40 mg Tablet,Delayed Release (Dr/Ec) 40 mg PO QAM RF: 0 nitroglycerin [Nitrostat] 0.4 mg Tablet, Sublingual 0.4 mg Sublingual UD PRN (Reason: Chest Pain) RF: 0 clopidogrel [Plavix] 75 mg Tablet 75 mg PO QAM RF: 0 sertraline 50 mg Tablet 50 mg PO QAM RF: 0 coenzyme Q10 [Co Q-10] 10 mg Capsule 10 mg PO QAM RF: 0 cyanocobalamin (vitamin B-12) 1,000 mcg Tablet 1,000 mcg PO QAM RF: 0 ferrous gluconate 324 mg (37.5 mg iron) Tablet 324 mg PO QAM RF: 0 rosuvastatin [Crestor] 20 mg Tablet 20 mg PO QAM RF: 0 multivitamin [Multiple Vitamins] Tablet 1 tab PO QAM RF: 0 Discontinued Toviaz 8 mg Tablet Extended Release 24 Hr 8 mg PO DAILY RF: 0 Myrbetriq 25 mg Tablet Extended Release 24 Hr 25 mg PO DAILY RF: 0 carvedilol 6.25 mg Tablet 6.25 mg PO BIDM RF: 0 metformin 1,000 mg Tablet Extended Release 24hr 1,000 mg PO QAM RF: 0 losartan 25 mg Tablet 25 mg PO QAM RF: 0 warfarin [Coumadin] 7.5 mg Tablet 7.5 mg PO 2XWK RF: 0 warfarin [Coumadin] 5 mg Tablet 5 mg PO 5XWK RF: 0 digoxin 125 mcg Tablet 0.125 mg PO Q2D RF: 0 furosemide 20 mg Tablet 60 mg PO QAM RF: 0 No Action torsemide 20 mg Tablet 80 mg PO QAM 30 Days Qty: 120 RF: 1 warfarin 5 mg Tablet See Rx Instructions .ROUTE .COMPLEX RF: 0 potassium chloride [Klor-Con M20] 20 mEq Tablet,Er Particles/Crystals 20 meq PO QAM Qty: 30 RF: 1 Stand-Alone Forms: [facility] Discharge Orders: Discharge Order (Routine); Ordered 02/01/19 Ordered By: Chelly Irving Admission Data Admit Date/Time: 01/12/19 21:57 Attending Provider: Chelly Irving Admit Provider: Willi Keene Primary Care Provider: Shade Thomas Other Providers: Willi Keene ; Alisson Martin ; Edith Jimenez ; Tapan Syed I. ; Patricio Lou ; Georgina Gilbert ; Lexi Johnson ; Aditya Jimenez ; Yuval Smith ; Jamie Garcia ; Mahendra Sánchez ; Rodrigo Alexander Service: Telemetry Other Interventions: Discharge Summary Assessment (RN) Last Done: 02/01/19 18:37 DC Date/Time DO NOT enter until pt leaves facility: 02/01/19 19:04
--- NOTE | 2019-02-12 16:22 | Discharge Summary ---
Date of Service February 12, 2019 Admission HPI Per Admitting Provider HISTORY OF PRESENT ILLNESS: This is a 78-year-old male with past medical history significant for cirrhosis of liver, chronic kidney disease stage III, history of renal carcinoma right status post ablation, history of left middle cerebral artery stroke in 2015, history of [place], history of combined ischemic-nonischemic cardiomyopathy, last EF of around 40%, CAD status post stent, history of sustained ventricular tachycardia status post defibrillator, history of iron deficiency anemia, history of atrial fibrillation, hypogonadism, diabetes, was brought in because of nausea and abdominal discomfort. The patient was recently in the hospital for chest pain and shoulder pain thought to be from musculoskeletal pain and discharged home. He is also having inguinal hernias and is following with surgery. He is supposed to follow with surgery again in the next few days, but since couple of days he has been nauseous. He is eating okay, but he is feeling nauseous and also having some abdominal discomfort. He is getting weak and has not been getting better, so he was brought into the hospital and his labs showed his creatinine went up to 4.7 and his CAT scan of the abdomen and pelvis showed possible cystitis and [id number] pericardial effusions so we are called for admission. The patient currently is somewhat weak and tired but states his nausea is better, still has some abdominal discomfort. Denies any chest pain. Denies shortness of breath, no headache. No blurred visions. Somewhat hard to hear. Has some dry cough on and off. No difficulty swallowing. No vomiting, moved his bowels okay, but there is no blood in the stools. As per family, he is not eating much since last couple of days. The patient is afebrile. No rash seen. Admission Exam Per Admitting Provider PHYSICAL EXAMINATION: GENERAL: The patient is of moderate built, not in acute distress. VITAL SIGNS: Temperature 36.6, pulse 79, respiratory rate 18, blood pressure 95/68, oxygen 95% on room air. HEENT: No pallor, no icterus. Pupils equal, round, and react to light. NECK: No JVD. No neck masses. No carotid bruits. CARDIOVASCULAR: S1, S2 heard, regular rate and rhythm, no murmur, no gallop. RESPIRATORY SYSTEM: Normal AP diameter. No accessory muscle use. No wheezing, no crackles. ABDOMEN: Soft, bowel sounds. Mild diffuse discomfort. No rigidity. No distention. CENTRAL NERVOUS SYSTEM: Alert and oriented. Nonfocal. EXTREMITIES: Trace pedal edema, no erythema seen. Principal Diagnosis pericardial effusion Discharge Data Allergies Allergy/AdvReac Type Severity Reaction Status Date / Time fentanyl Allergy Severe Decreased Verified 02/02/19 07:07 oxygen saturation, low RR, unresponsive midazolam Allergy Severe Decreased Verified 02/02/19 07:07 oxygen saturation, low RR, unresponsive. codeine Allergy Unknown GI SYMPTOMS Verified 02/02/19 07:07 promethazine [From Phenergan] AdvReac Severe severe Verified 02/02/19 14:18 fatigue BRIANA Inhibitors AdvReac Mild cough, Verified 02/02/19 07:07 cefuroxime AdvReac Mild GI SYMPTOMS Verified 02/02/19 07:07 Consultations 01/12/19 21:05 ED Decision to Admit Stat 01/12/19 22:50 Consult Case Management - Discharge Planning Routine Consult Nephrology Routine 01/13/19 08:00 Consult Cardiology Routine Consult Urology Routine 01/13/19 16:16 Consult Midlevel Provider Routine 01/14/19 07:37 Consult Gastroenterology Routine Ordered Studies 01/12/19 18:43 CT abd pelvis wo con Stat 01/14/19 07:34 US liver Routine Hospital Course (1) Pericardial effusion: (2) H/O: stroke: (3) Ischemic cardiomyopathy: (4) DMII (diabetes mellitus, type 2): (5) CAD (coronary artery disease): (6) Chronic atrial fibrillation: (7) Anemia in chronic kidney disease: (8) CKD (chronic kidney disease), stage IV: (9) Elevated LFTs: (10) S/P ICD (internal cardiac defibrillator) procedure: 78 yo M with recent overnight admission to [facility] on 01/03 for chest pain. After workup and evaluation by cardiology this was thought to be noncardiac musculoskeletal chest pain, and he was sent home with recommendations for Tylenol and ice. He returned to the ER on 01/12 for a possible blocked hernia after having nausea nd abdominal pain at home. He reported abdominal pain for several days and nausea. Lab work revealed anemia with H&H 7.8/24.4. A CT of the abdomen and pelvis without contrast revealed no bowel obstruction or focal bowel wall thickening, extensive colonic diverticulosis without acute diverticulitis, cirrhotic liver disease with a new moderate to large pericardial effusion and small volume abdominal pelvic ascites, large bilateral inguinal hernias containing nonobstructed loops of bowel. Physical exam did show significant abdominal tenderness with inguinal hernias that did not appear to be incarcerated. Lab work also revealed acute renal failure. BUN was 89, creatinine 5.25. Additionally, potassium was 5.5 and sodium was 133. He was admitted to the Hospitalist service. Baseline creatinine noted to be 1.9. Contrast-induced nephropathy was thought to be contributing to decline in renal function with a recent contrasted study on prior admission. Lasix and Cozaar was held and he was started on IV fluids. Echocardiogram was ordered to evaluate the pericardial effusion and Cardiology was consulted. This effusion was thought to be secondary to renal failure and was repeated later in the hospitalization subsequently reported as "trivial" and decreasing in size without intervention or medical therapy needed. Vitamin K 5 mg IV was given for INR of 9.2, in addition to fresh frozen plasma on 01/13. Urology was consulted for TOBIN in the setting of history of renal cell carcinoma, bladder outlet obstruction and known urethral stricture, however, no acute intervention was indicated. Nephrology was consulted for the acute renal failure. Emergent dialysis was started given subacute pericardial effusion on echo, anuria and ongoing hyperkalemia. Digoxin was discontinued this admission secondary to renal insufficiency. Elevated transaminase prompted a Gastroenterology consult. They suspected he had a mild component of acute liver injury from hypoperfusion to the liver and felt this would improve with continued efforts to maintain his blood pressure and in normal range as opposed to his chronic hypotension. His LFT injury was primarily a hepatocellular pattern. A liver ultrasound revealed cirrhosis with trace perihepatic ascites and nonspecific gallbladder wall thickening without cholelithiasis, likely secondary to underlying cirrhosis. There was no biliary ductal dilation. On 01/16 he received 2 units of leukocyte reduced red blood cells with hemodialysis. By 01/19 he was improved improving urine output and ultimately stopped dialysis on 01/20. Creatinine plateaued at 3.5. He was feeling well and ready for discharge reporting complete resolution of initial nausea and other symptoms. However, he had been receiving an elevated coumadin dose of 10mg for the previous three days and this caused an elevated INR that continued to climb the following day despite holding coumadin. His coumadin was held at admission with close INR followup recommened. At time of discharge he was mentating at baseline and was asymptomatic. He was ambulating independently and was tolerating PO reliably. He was discharged in stable cond ition with close primary care follow-up. All new medication changes were reviewed with his daughter in detail including review of the list and review of the medication bottles. Total Time Total Time Spent Total Time Spent (In Minutes): 60 Total Time Includes: Examination of the Patient, Discharge Planning, Medication Reconciliation, Communication With Other Providers and Other (followup arrangements) Discharge Plan Discharge Items Patient Disposition: Home - Home Health Services Reason For Visit: NAUSEA,WEAKNESS Discharge Diagnosis: pericardial effusion Discharge Goals: Decrease discomfort Activity: Resume your previous activity Non-emergency contact: Primary Care Provider Call non-emergency contact if: you have any medication questions Follow-up/Referrals: Dima Neil MD [Physician] - Alisson Martin MD, PhD [Physician] - Patricio Lou DO [Crook Operator] - Shade Thomas [Primary Care Provider] - Diet: Carb Consistent or DM2, Heart Healthy and Low Potassium (2gm) Addtl Provider Instructions: Please take all medications as instructed on discharge list below. You have an appointment with Lucina Cullen PA-C for [facility] nephrology on 02/20 at 9 AM at the [facility] location. You have nonfasting bloodwork to be done every Wed and at [facility]. Results will go to Dr. Alisson Olivares. You have an appointment with Dr. Thomas and primary care on Wednesday, 02/03 at 1:45 PM for follow-up of this hospitalization. Please bring all medication bottles with you to this appointment. It is recommended that you bring a written log of his blood sugars as checked at home. As discussed please hold Coumadin for the next 2 days, then check INR on 02/03. Staff from the anticoagulation clinic should contact you with the results. If you do not hear something near the end of the day please contact the Coumadin clinic for further instructions. My recommendation would be to restart his Coumadin as dosed prior to hospitalization if his INR is less than 3.5. Your resting heart rate is near 100 bpm despite increases in his beta-bryan, metoprolol. This may require a cardiology follow-up as outpatient in the next few weeks to continue to titrate this medication. Please continue an 7-week taper of prednisone as instructed: Week 1: 17.5mg daily (7 tabs) Week 2: 15mg daily (6 tabs) Week 3: 12.5mg daily (5 tabs) Week 4: 10mg daily (4 tabs) Week 5: 7.5mg daily (3 tabs) Week 6: 5mg daily (2 tabs) Week 7: 2.5mg daily (1 tab) Then STOP Someone from [facility] should be contacting you tomorrow for a visit. It was a pleasure taking care of you! Please call if you have any questions or problems. You can reach a [facility] hospitalist on duty at [facility] 24 hours a day by calling [phone]. Take care of yourself. Chelly Irving, DO [facility] Hospitalist Prescriptions: New metoprolol succinate 50 mg Tablet Extended Release 24 Hr 100 mg PO BID17 Qty: 60 RF: 1 glipizide 5 mg tablet 2.5 mg PO BID Qty: 30 RF: 1 Continued TESTOSTERONE GEL 1 applic Topical QAM Qty: 0 RF: 0 pantoprazole [Protonix] 40 mg Tablet,Delayed Release (Dr/Ec) 40 mg PO QAM RF: 0 nitroglycerin [Nitrostat] 0.4 mg Tablet, Sublingual 0.4 mg Sublingual UD PRN (Reason: Chest Pain) RF: 0 clopidogrel [Plavix] 75 mg Tablet 75 mg PO QAM RF: 0 sertraline 50 mg Tablet 50 mg PO QAM RF: 0 coenzyme Q10 [Co Q-10] 10 mg Capsule 10 mg PO QAM RF: 0 cyanocobalamin (vitamin B-12) 1,000 mcg Tablet 1,000 mcg PO QAM RF: 0 ferrous gluconate 324 mg (37.5 mg iron) Tablet 324 mg PO QAM RF: 0 rosuvastatin [Crestor] 20 mg Tablet 20 mg PO QAM RF: 0 multivitamin [Multiple Vitamins] Tablet 1 tab PO QAM RF: 0 Discontinued Toviaz 8 mg Tablet Extended Release 24 Hr 8 mg PO DAILY RF: 0 Myrbetriq 25 mg Tablet Extended Release 24 Hr 25 mg PO DAILY RF: 0 carvedilol 6.25 mg Tablet 6.25 mg PO BIDM RF: 0 metformin 1,000 mg Tablet Extended Release 24hr 1,000 mg PO QAM RF: 0 losartan 25 mg Tablet 25 mg PO QAM RF: 0 warfarin [Coumadin] 7.5 mg Tablet 7.5 mg PO 2XWK RF: 0 warfarin [Coumadin] 5 mg Tablet 5 mg PO 5XWK RF: 0 digoxin 125 mcg Tablet 0.125 mg PO Q2D RF: 0 furosemide 20 mg Tablet 60 mg PO QAM RF: 0 No Action torsemide 20 mg Tablet 80 mg PO QAM 30 Days Qty: 120 RF: 1 warfarin 5 mg Tablet See Rx Instructions .ROUTE .COMPLEX RF: 0 potassium chloride [Klor-Con M20] 20 mEq Tablet,Er Particles/Crystals 20 meq PO QAM Qty: 30 RF: 1 Stand-Alone Forms: [facility] Discharge Orders: Discharge Order (Routine); Ordered 02/01/19 Ordered By: Chelly Irving Admission Data Admit Date/Time: 01/12/19 21:57 Attending Provider: Chelly Irving Admit Provider: Willi Keene Primary Care Provider: Shade Thomas Other Providers: Willi Keene ; Alisson Martin ; Edith Jimenez ; Tapan Syed I. ; Patricio Lou ; Georgina Gilbert ; Lexi Johnson ; Aditya Jimenez ; Yuval Smith ; Jamie Garcia ; Mahendra Sánchez. ; Rodrigo Alexander Service: Telemetry Other Interventions: Discharge Summary Assessment (RN) Last Done: 02/01/19 18:37 DC Date/Time DO NOT enter until pt leaves facility: 02/01/19 19:04
== END 2019-02-01 19:04 | disposition home health service (06) | DRG 682 ==
LOC: ED 16:21 → SUATTDRO 21:57 → 2S 21:57
DX: Z79.899 Other long term (current) drug therapy; E87.5 Hyperkalemia; T45.515A Adverse effect of anticoagulants, initial encounter; Z86.73 Personal history of transient ischemic attack (TIA), and cerebral infarction without residual deficits; K40.20 Bilateral inguinal hernia, without obstruction or gangrene, not specified as recurrent; Z79.01 Long term (current) use of anticoagulants; E78.00 Pure hypercholesterolemia, unspecified; E29.1 Testicular hypofunction; I07.1 Rheumatic tricuspid insufficiency; Z85.528 Personal history of other malignant neoplasm of kidney; Z79.02 Long term (current) use of antithrombotics/antiplatelets; R74.0 Nonspecific elevation of levels of transaminase and lactic acid dehydrogenase [LDH]; Z95.5 Presence of coronary angioplasty implant and graft; I25.10 Atherosclerotic heart disease of native coronary artery without angina pectoris; K74.60 Unspecified cirrhosis of liver; I50.810 Right heart failure, unspecified; N32.89 Other specified disorders of bladder; M25.511 Pain in right shoulder; E11.22 Type 2 diabetes mellitus with diabetic chronic kidney disease; Z79.84 Long term (current) use of oral hypoglycemic drugs; Z88.8 Allergy status to other drugs, medicaments and biological substances; N18.5 Chronic kidney disease, stage 5; Z88.1 Allergy status to other antibiotic agents; I25.2 Old myocardial infarction; N17.0 Acute kidney failure with tubular necrosis; E86.0 Dehydration; Z88.5 Allergy status to narcotic agent; R11.0 Nausea; D50.9 Iron deficiency anemia, unspecified; I27.29 Other secondary pulmonary hypertension; G89.29 Other chronic pain; I48.2 Chronic atrial fibrillation; D63.1 Anemia in chronic kidney disease; R79.1 Abnormal coagulation profile; N39.0 Urinary tract infection, site not specified; I25.5 Ischemic cardiomyopathy; N35.919 Unspecified urethral stricture, male, unspecified site; Z95.810 Presence of automatic (implantable) cardiac defibrillator; I24.8 Other forms of acute ischemic heart disease; I13.2 Hypertensive heart and chronic kidney disease with heart failure and with stage 5 chronic kidney disease, or end stage renal disease; I31.3 Pericardial effusion (noninflammatory); B95.2 Enterococcus as the cause of diseases classified elsewhere; Z82.49 Family history of ischemic heart disease and other diseases of the circulatory system; K21.9 Gastro-esophageal reflux disease without esophagitis; I50.23 Acute on chronic systolic (congestive) heart failure

== ENCOUNTER 2019-02-02 06:33 | Observation (INO) ==
[2019-02-02] MEDS ORDERED: SODIUM CHLORIDE 0.9% 1000ML 500 ML IV ONE (07:10)
[2019-02-02] MEDS ORDERED: ONDANSETRON INJ 2 MG/ML 2 ML VIAL IV STA (07:28)
--- NOTE | 2019-02-02 07:33 | CT Scan Report ---
CT head/brain wo con CLINICAL HISTORY: nausea DIZZINESS COMPARISON STUDY: 05-09 TECHNIQUE: Axial CT of the brain is performed from the vertex to the skull base. IV contrast was not administered for this examination. A dose lowering technique was utilized adhering to the principles of ALARA. CT DOSE: 1853.90 mGy.cm FINDINGS: No intra or extra-axial mass lesions are visualized. There is no CT evidence of acute cortical infarc tion. There is no evidence of midline shift. There is no acute hemorrhage. No calvarial fractures ar e visualized. There are patchy white matter hypodensities likely on a small vessel basis. There is an old left rajani etal lobe infarct. There is an old right basal ganglia lacunar infarct. There is no evidence of pathologic ventricular dilatation. There is no evidence of acute sinusitis IMPRESSION: No acute intracranial findings Electronically signed by: Keaton Cano M.D. 02/02/2019 7:32 AM
--- NOTE | 2019-02-02 07:44 | CT Scan Report ---
CT SCAN OF THE ABDOMEN AND PELVIS WITHOUT CONTRAST CLINICAL HISTORY: Nausea, vomiting, diffuse abdominal pain. Renal failure. COMPARISON STUDY: 01/12/2019 TECHNIQUE: CT scan of the abdomen and pelvis was performed from the lung bases to the proximal femurs . Images are reviewed in the axial, sagittal, and coronal planes. IV contrast was not administered fo r this examination. A dose lowering technique was utilized adhering to the principles of ALARA. CT DOSE: FINDINGS: Lower chest: The heart is enlarged. There is a pericardial effusion which appears smaller than on the preceding study. There are coronary artery calcifications. There are basilar atelectatic changes. Liver: The liver has a cirrhotic morphology. No focal masses are visualized. Gallbladder: Unremarkable. Spleen: Normal in size and attenuation. Pancreas: Unremarkable. Adrenal glands: Unremarkable. Kidneys: No renal, ureteral, or bladder calculi are visualized. There is a 42 mm left renal cyst. The re is a persistent indeterminate 19 mm mid pole right renal lesion. Bowel: Bowel evaluation is limited due to respiratory artifact, and the absence of intravenous and or al contrast. There are no transition zones indicate bowel obstruction. There is colonic diverticulosi s. There is a left inguinal hernia containing a segment of sigmoid colon. There is a right inguinal h ernia containing a tiny portion of cecum. Equivocal infiltration of the fat near the level of the hep atic flexure, may be artifactual as there is significant motion artifact at this level. Peritoneum: There is low volume ascites. No free air is visualized. There is a small fat-containing u mbilical hernia. Vasculature: The abdominal aorta is normal in course and caliber. Adenopathy: None. Pelvic viscera: The bladder, and pelvic viscera are unremarkable. Skeletal structures: No destructive osseous lesions are seen. IMPRESSION: 1. No evidence of bowel obstruction. No evidence of free air 2. Diverticulosis. No evidence of acute diverticulitis 3. Suspected hepatic cirrhosis. Increasing low volume ascites. 4. Indeterminate 19 mm mid pole right renal mass 5. Bowel containing bilateral inguinal hernias. No obstructive changes noted 6. Cardiomegaly, coronary artery calcifications, and small pericardial effusion. Electronically signed by: Keaton Cano M.D. 02/02/2019 7:42 AM
--- NOTE | 2019-02-02 07:46 | XRay Report ---
XR chest 1V portable HISTORY: Atypical Chest Pain COMPARISON: Chest 01/27/2019. FINDINGS: Left single lead pacemaker is noted. No pneumothorax. There are low lung volumes. The heart is enlarged. There is mild central pulmonary vascular congestion without overt edema. Low lung findi ngs with right basilar densities. This has improved. The left lung is clear. There may be a trace rig ht pleural effusion. IMPRESSION: 1. Cardiomegaly with mild pulmonary vascular congestion. 2. Patchy right basilar densities and a trace right pleural effusion have improved. Electronically signed by: Warner Nelson M.D. 02/02/2019 7:45 AM
[2019-02-02 07:51] LABS: INR 3.5 (0.9-1.1); Partial Thromboplastin Ratio 1.3; Partial Thromboplastin Time 36.2 Seconds (21.0-31.0); Prothrombin Time 32.5 Seconds (9.0-12.0)
[2019-02-02 07:54] LABS: Albumin Level 3.7 gm/dl (3.4-5.0); BUN Creatinine Ratio 22.5 (10-20); Calcium 9.6 mg/dl (8.5-10.1); Creatinine Clr Calc Pharmacy 17.2 ml/min; Est GFR (African American) 17.6; Est GFR (Non-African American) 15.1; Potassium 4.8 mmol/L (3.5-5.1)
[2019-02-02 08:05] LABS: Basophils # (auto) 0.01 K/uL (0-0.2); Basophils % (auto) 0.1 %; Bilirubin,Total 0.4 mg/dl (0.2-1); Eosinophils # (auto) 0.09 K/uL (0-0.5); Eosinophils % (auto) 0.8 %; Globulin 3.6 gm/dl (2.5-4.0); Hematocrit (blood only) 30.8 % (42-52); Hemoglobin 9.7 g/dL (14.0-18.0); Immature Granulocytes # (auto) 0.03 K/uL (0.00-0.02); Immature Granulocytes % (auto) 0.3 %; Lymphocytes # (auto) 1.26 K/uL (1.2-3.4); Lymphocytes % (auto) 11.4 %; Mean Corpuscular Hgb Conc 31.5 g/dL (32-36); Mean Corpuscular Volume 95.1 fL (80-100); Mean Platelet Volume 10.5 fL (7.4-10.4); Monocytes # (auto) 1.51 K/uL (0.11-0.59); Monocytes % (auto) 13.7 %; Neutrophils # (auto) 8.12 K/uL (1.4-6.5); Neutrophils % (auto) 73.7 %; Platelet Count 181 K/uL (130-400); RDW Coefficient of Variation 17.4 % (11.5-14.5); RDW Standard Deviation 60.3 fL (36.4-46.3); Red Blood Count 3.24 M/uL (4.7-6.1); Total Protein 7.3 gm/dl (6.4-8.2); Troponin I 0.089 ng/ml (0-0.045); White Blood Count 11.02 K/uL (4.8-10.8)
[2019-02-02 10:11] LABS: Appearance Urine Clear (Clear); Bacteria Urine Automated Negative (Negative); Bilirubin Urine Negative (Negative); Blood Urine Negative (Negative); Color Urine Yellow; Glucose Urine UA Negative (Negative); Ketones Urine Negative (Negative); Leukocyte Esterase Urine Negative (Negative); Nitrite Urine Negative (Negative); Protein Urine 1+ (Negative); RBC Urine Automated 0-4 /hpf (0-4); Specific Gravity Urine 1.012 (1.000-1.030); Urobilinogen Urine Negative (Negative); pH Urine 5.5 (4.5-7.5)
[2019-02-02] MEDS ORDERED: ACETAMINOPHEN 325 MG TAB PO PRN (11:43)
[2019-02-02] MEDS ORDERED: GLUCOSE 40% GEL 15 GM TUBE PO PRN (11:43)
[2019-02-02] MEDS ORDERED: DEXTROSE 50% 50 ML SYRINGE IV PRN (11:43)
[2019-02-02] MEDS ORDERED: ONDANSETRON INJ 2 MG/ML 2 ML VIAL IV PRN (11:43)
[2019-02-02] MEDS ORDERED: POLYETHYLENE (MIRALAX) 17 GM PACK PO PRN (11:43)
[2019-02-02] MEDS ORDERED: CARBOHYDRATES FOR HYPOGLYCEMIA PO PRN (11:43)
[2019-02-02] MEDS ORDERED: GLUCAGON FOR INJ 1 MG VIAL SQ PRN (11:43)
[2019-02-02] MEDS ORDERED: PROMETHAZINE HCL 25 MG TAB PO PRN (11:43)
[2019-02-02] MEDS ORDERED: GLUCOSE 10 TABS/TUBE PO PRN (11:43)
[2019-02-02] MEDS ORDERED: NITROGLYCERIN SL 0.4 MG/TAB TAB SL PRN (11:43)
[2019-02-02] MEDS ORDERED: predniSONE 10 MG TABLET PO SCH (12:00)
[2019-02-02] MEDS ORDERED: PANTOprazole 40 MG TAB PO SCH (12:00)
[2019-02-02] MEDS ORDERED: ROSUVASTATIN CALCIUM 20 MG TAB PO SCH (12:00)
[2019-02-02] MEDS ORDERED: predniSONE 5 MG TAB PO SCH (12:00)
--- NOTE | 2019-02-02 12:15 | History & Physical Report ---
Date of Service February 02, 2019 Assessment & Plan (1) Nausea: Suspect this is secondary to steroid use as nausea seemed to kick back up during the last portion of his hospitalization this last week coinciding with 20 mg of daily prednisone. The prednisone is being given for presumed pericarditis in the setting of a pericardial effusion found on admission. NSAIDs are contraindicated. Will discuss colchicine therapy as a different option with cardiology, and hold steroids at this time. Increase Protonix to 40 mg p.o. twice daily. (2) Supratherapeutic INR: Recent supratherapeutic dosing of warfarin. Coumadin was held for 2 days with INR subsequently fallen to 3.5 today. Will resume typical warfarin dosing alternating days with 5 mg and 7.5 mg. Daily INR. (3) CKD (chronic kidney disease), stage IV: Stable, recent admission for worsening of kidney function with plateau of creatinine around 3.5. He is at his new baseline today. Low potassium diet ordered per (4) Anemia in chronic kidney disease: Chronic, stable, no active bleeding. (5) Pericardial effusion: As above recent admission with pericardial effusion that was seen and improved on serial echocardiograms with steroid therapy but also in the setting of treatment for worsening acute renal failure causing a hypervolemic state. Continue plan as above. (6) Chronic atrial fibrillation: Persistent, rate control with Toprol-XL recently titrated up to 100 p.o. twice daily. Continue to monitor on telemetry. Will consider up titrating this again prior to discharge. Coumadin for secondary stroke prophylaxis. (7) CAD (coronary artery disease): (8) DMII (diabetes mellitus, type 2): (9) Ischemic cardiomyopathy: (10) S/P ICD (internal cardiac defibrillator) procedure: (11) H/O: stroke: Continues on aspirin, Plavix and statin. Warfarin is a third blood t hinner as above. (12) DVT prophylaxis: Warfarin-INR currently supratherapeutic. DNR confirmed on admission with daughter who is at bedside Dispo-telemetry DO [facility] Hospitalist History of Present Illness Chief Complaint: nausea and vomiting Primary Care Provider: Shade Thomas 78-year-old man recently admitted for worsening of stage IV chronic kidney disease and pericardial effusion, who was discharged from the hospital yesterday, presents this morning with dry heaves and nausea overnight. Although the patient reported a resolution of nausea yesterday and for the past several days, evidently he had been having some nausea overnight consistently for about the last week. This would resolve and he would tolerate solid foods without issue. It is noted that he was off testosterone therapy while admitted for the last 3 weeks. He also recently started back on his sertraline yesterday morning. Multiple medications were changed, however, he denies any use of medications last night. Did report nausea and dry heaves were then followed by diffuse sweating and a headache. On arrival to the ER vital signs are similar to yesterday. He does have some resting tachycardia from his atrial fibrillation, for which metoprolol has been titrated recently. His EKG is unchanged. His blood work is about the same. His abdomen is benign on exam and he is reporting some residual discomfort in his stomach, but denies nausea. He frankly denies abdominal pain. He denies any diarrhea or change in stool overnight. He had reliably been having bowel movements per his report prior to leaving yesterday. Other workup included a CT of the abdomen and pelvis which revealed no evidence of bowel obstruction, no evidence of free air, diverticulosis with no evidence of acute diverticulitis, suspected hepatic cirrhosis, indeterminate 19 mm mid pole right renal mass, bowel containing bilateral inguinal hernias with no obstructive changes noted. The patient is of sound mind and body and is requesting to go home, adamantly. However, his daughter who is at bedside and his via cell phone are both insisting that he stay as they are taking care of him. Allergies Allergy/AdvReac Type Severity Reaction Status Date / Time fentanyl Allergy Severe Decreased Verified 02/02/19 07:07 oxygen saturation, low RR, unresponsive midazolam Allergy Severe Decreased Verified 02/02/19 07:07 oxygen saturation, low RR, unresponsive. codeine Allergy Unknown GI SYMPTOMS Verified 02/02/19 07:07 BRIANA Inhibitors AdvReac Mild cough, Verified 02/02/19 07:07 cefuroxime AdvReac Mild GI SYMPTOMS Verified 02/02/19 07:07 Home Medications Home Medications Medication Instructions Recorded Confirmed Type TESTOSTERONE GEL 1 applic TOPICAL QAM #0 10/12/17 02/02/19 History clopidogrel [Plavix] 75 mg PO QAM 08/16/18 02/02/19 History coenzyme Q10 [Co Q-10] 10 mg PO QAM 08/16/18 02/02/19 History cyanocobalamin (vitamin B-12) 1,000 mcg PO QAM 08/16/18 02/02/19 History ferrous gluconate 324 mg PO QAM 08/16/18 02/02/19 History multivitamin [Multiple Vitamins] 1 tab PO QAM 08/16/18 02/02/19 History nitroglycerin [Nitrostat] 0.4 mg SUBLINGUAL UD PRN 08/16/18 02/02/19 History pantoprazole [Protonix] 40 mg PO QAM 08/16/18 02/02/19 History rosuvastatin [Crestor] 20 mg PO QAM 08/16/18 02/02/19 History sertraline 50 mg PO QAM 08/16/18 02/02/19 History glipizide 2.5 mg PO BID #30 tab 02/01/19 02/02/19 Rx metoprolol succinate 100 mg PO BID17 #60 tab 02/01/19 02/02/19 Rx potassium chloride [Klor-Con M20] 40 meq PO QAM #30 tab 02/01/19 02/02/19 Rx prednisone 2.5 mg PO .taper #200 tab 02/01/19 02/02/19 Rx torsemide 80 mg PO QAM 30 Days #120 tab 02/02/19 Rx warfarin See Rx Instructions .ROUTE .COMPLEX 02/02/19 02/02/19 History Past Med/Surg History Medical History Depression (Chronic) HTN (hypertension) (Chronic) History of renal carcinoma (Chronic) Chronic systolic heart failure (Chronic) Chronic anemia (Chronic) Atrial fibrillation (Chronic) CAD (coronary artery disease) (Chronic) "2005 - PCI to LAD cath 2011 - no significant obstructive disease" DM type 2 (diabetes mellitus, type 2) (Chronic) Ischemic cardiomyopathy (Chronic) "echo 08/2015 - EF 25-30%, moderate tricuspid regurgitation" CVA (cerebral vascular accident) (Chronic) Squamous cell carcinoma (Chronic) Basal cell carcinoma (Chronic) V tach (Chronic) "s/p AICD placement" Cardiac defibrillator in place (Chronic) CKD (chronic kidney disease), stage IV CKD (chronic kidney disease), stage III (Chronic) Surgical History History of cataract surgery (Chronic) History of cardiac catheterization (Chronic) History of prior ablation treatment (Chronic) CT guided tissue ablation R kidney Family History Other Coronary heart disease Diabetes Stomach cancer Social History Preferred Language: [place] Communication Ability: Effective 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 Physical Exam Vital Signs (Past 24 Hours): Last Vital Signs Temp 36.4 C L 02/02/19 11:15 Pulse 97 H 02/02/19 11:15 Resp 16 02/02/19 11:15 BP 112/77 02/02/19 11:15 Pulse Ox 97 02/02/19 11:15 CONSTITUTIONAL: WNWD, vitals as above, generally well-appearing EYES: normal conjuctivae, no scleral icterus RESPIRATORY: clear to auscultation bilaterally, no crackles, rales or wheezes, normal respiratory effort CARDIOVASCULAR: regular rate and rhythm, S1 and 2 heard without murmurs, gallops or rubs, no JVD, no peripheral edema GASTROINTESTINAL: normal bowel sounds, soft, nontender, nondistended MUSCULOSKELETAL: strength 5/5 throughout, head is normocephalic and atraumatic SKIN: warm and dry NEUROLOGIC: No facial palsy, no dysarthria. CN 2-12 grossly intact, normal cognition, normal speech PSYCHIATRIC: alert cooperative and oriented Results & Data Laboratory Results Short CBC 02/02/19 Range/Units 07:35 WBC 11.02 H (4.8-10.8) K/uL Hgb 9.7 L (14.0-18.0) g/dL Hct 30.8 L (42-52) % Plt Count 181 (130-400) K/uL BMP 02/02/19 07:35 Sodium 142 Potassium 4.8 Chloride 102 Carbon Dioxide 32 BUN 81 H Creatinine 3.60 H Glucose 134 H Calcium 9.6 Cardiac Enzymes 02/02/19 Range/Units 07:35 Troponin I 0.089 H* (0-0.045) ng/ml Liver Function 02/02/19 Range/Units 07:35 Total Bilirubin 0.4 (0.2-1) mg/dl AST 25 (15-37) U/L ALT 32 (12-78) U/L Alkaline Phosphatase 81 (45-117) U/L Albumin 3.7 (3.4-5.0) gm/dl Urine 02/02/19 Range/Units 09:55 Urine Color Yellow Urine Appearance Clear (Clear) Urine pH 5.5 (4.5-7.5) Ur Specific [place] 1.012 (1.000-1.030) Urine Protein 1+ H (Negative) Urine Glucose (UA) Negative (Negative) Medications Administered Current Inpatient Medications Acetaminophen (Tylenol) 650 mg PO Q4H PRN PRN Reason: Pain or Fever Stop: 03/04/19 11:42 Clopidogrel Bisulfate (Plavix) 75 mg PO QAM PAVAN Stop: 03/04/19 11:59 Dextrose (Dextrose 50%) 25 - 50 ml IV UD PRN; Protocol PRN Reason: Hypoglycemia Protocol Stop: 03/04/19 11:42 Glucagon (Glucagen) 1 mg SQ UD PRN; Protocol PRN Reason: Hypoglycemia Protocol Stop: 03/04/19 11:42 Glucose (Dex4 Glucose) 4 - 8 tabs PO UD PRN; Protocol PRN Reason: Hypoglycemia Protocol Stop: 03/04/19 11:42 Glucose (Glucose 40%) 15 - 30 gm PO UD PRN; Protocol PRN Reason: Hypoglycemia Protocol Stop: 03/04/19 11:42 Insulin Aspart (Novolog Flexpen) 0 units SC ACHS PENDING SALE TO [facility] Stop: 03/04/19 16:29 Metoprolol Succinate (Toprol Xl) 100 mg PO BID PENDING S[facility] TO [facility] Stop: 03/04/19 11:59 Miscellaneous (Carbohydrates For Hypoglycemia) 15 - 30 gm PO UD PRN PRN Reason: Hypoglycemia Treatment Stop: 03/04/19 11:42 Nitroglycerin (Nitrostat) 0.4 mg SL UD PRN PRN Reason: Chest Pain Stop: 03/04/19 11:42 Testosterone 1%~Non- Formulary Patient's Own Med 1 ea TOP DAILY PENDING SALE TO [facility] Stop: 03/04/19 12:29 Ondansetron HCl (Zofran) 4 mg IV Q6H PRN PRN Reason: Nausea Stop: 03/04/19 11:42 Pantoprazole Sodium (Protonix) 40 mg PO BID PENDING SALE TO [facility] Stop: 03/04/19 12:44 Polyethylene Glycol (Miralax Powder Packet) 17 gm PO DAILY PRN PRN Reason: Constipation Stop: 03/04/19 11:42 Potassium Chloride (Klor-Con M20) [facility] Stop: 03/04/19 08:59 Prednisone (Prednisone) 17.5 mg PO DAILY@1200 PAVAN; Taper; Protocol Stop: 03/23/19 11:59 Promethazine HCl (Phenergan) 12.5 mg PO Q6H PRN PRN Reason: Nausea And Vomiting Stop: 03/04/19 11:42 Last Admin: 02/02/19 12:02 Dose: 12.5 mg Documented by: Rosuvastatin Calcium (Crestor) [facility] Stop: 03/04/19 11:59 Sertraline HCl (Zoloft) 50 [facility] Stop: 03/04/19 11:59 Torsemide (Demadex) 80 [facility] Stop: 03/04/19 11:59 Warfarin Sodium (Coumadin) 5 mg PO DAILY@1600 [facility]END[facility] S[facility] TO [facility] Stop: 03/04/19 15:59 Warfarin Sodium (Coumadin) 7.5 mg PO SuTuTh@1600 [facility]END[facility] S[facility] TO [facility] Stop: 03/07/19 15:59 Warfarin Sodium (Coumadin) 5 mg PO MoWeFrSa@1600 [facility]END[facility] S[facility] TO [facility] Stop: 03/05/19 15:59 Code Status & VTE Plan Code Status DNR VTE Prophylaxis Plan VTE Prophylaxis will be ordered: Yes Critical Care Time Critical Care Time: No
[2019-02-02] MEDS: TESTOSTERONE 1% TOP SCH (13:33)
[2019-02-02] MEDS: CLOPIDOGREL BISULFATE 75 MG TAB PO SCH (13:34)
[2019-02-02] MEDS: POTASSIUM CHLORIDE 20 MEQ TABCR PO SCH (13:35)
[2019-02-02] MEDS: PANTOprazole 40 MG TAB PO SCH ×2 (13:35→20:00)
[2019-02-02] MEDS: METOPROLOL SUCC 50MG EXT REL TAB PO SCH ×2 (13:35→20:01)
[2019-02-02] MEDS: TORSEMIDE 20 MG TAB PO SCH (13:35)
[2019-02-02] MEDS: SERTRALINE HCL 50 MG TABLET PO SCH (13:36)
[2019-02-02] MEDS ORDERED: Nursing to Pharmacy Communication ONE (14:04)
[2019-02-02] MEDS ORDERED: PROCHLORPERAZINE MALEATE 5 MG TAB PO PRN (14:16)
--- NOTE | 2019-02-02 14:38 | Emergency Department Note ---
Entered by Edith Hardy acting as a scribe for Jules Galloway MD History of Present Illness General Chief complaint: Nausea Stated complaint: NAUSEA,COLD SWEAT Time Seen by Provider: 02/02/19 06:58 Source: patient and family History of Present Illness Provider complaint: nausea, dry heaving Onset (ago): hour(s) 6 Location: abdomen Pain Consistency: + other (persistent) Quality: + other (nausea, dry heaving) Associated symptoms: + other (headache. Denies: chest pain, shortness of breath, racing heart rate, burning with urination, blood in urine, diarrhea, blood in stool, abdominal pain) The patient is a 78 year old male who presents to the Emergency Room with complaints of persistent nausea and dry heaving beginning 6 hours ago. His daughter notes the patient was discharged yesterday evening after a 3-week hospital stay for kidney failure. She notes he had intermittent nausea and dry heaving during this stay. The patient notes a mild headache. He denies chest pain, shortness of breath, racing heart rate, burning with urination, blood in urine, diarrhea, or blood in stool. The patient reports he has no current abdominal pain. Home Medications Home Medications Medication Instructions Recorded Confirmed Type TESTOSTERONE GEL 1 applic TOPICAL QAM #0 10/12/17 02/02/19 History clopidogrel [Plavix] 75 mg PO QAM 08/16/18 02/02/19 History coenzyme Q10 [Co Q-10] 10 mg PO QAM 08/16/18 02/02/19 History cyanocobalamin (vitamin B-12) 1,000 mcg PO QAM 08/16/18 02/02/19 History ferrous gluconate 324 mg PO QAM 08/16/18 02/02/19 History multivitamin [Multiple Vitamins] 1 tab PO QAM 08/16/18 02/02/19 History nitroglycerin [Nitrostat] 0.4 mg SUBLINGUAL UD PRN 08/16/18 02/02/19 History pantoprazole [Protonix] 40 mg PO QAM 08/16/18 02/02/19 History rosuvastatin [Crestor] 20 mg PO QAM 08/16/18 02/02/19 History sertraline 50 mg PO QAM 08/16/18 02/02/19 History glipizide 2.5 mg PO BID #30 tab 02/01/19 02/02/19 Rx metoprolol succinate 100 mg PO BID17 #60 tab 02/01/19 02/02/19 Rx potassium chloride [Klor-Con M20] 40 meq PO QAM #30 tab 02/01/19 02/02/19 Rx prednisone 2.5 mg PO .taper #200 tab 02/01/19 02/02/19 Rx torsemide 80 mg PO QAM 30 Days #120 tab 02/02/19 Rx warfarin See Rx Instructions .ROUTE .COMPLEX 02/02/19 02/02/19 History Allergies Allergy/AdvReac Type Severity Reaction Status Date / Time fentanyl Allergy Severe Decreased Verified 02/02/19 07:07 oxygen saturation, low RR, unresponsive midazolam Allergy Severe Decreased Verified 02/02/19 07:07 oxygen saturation, low RR, unresponsive. codeine Allergy Unknown GI SYMPTOMS Verified 02/02/19 07:07 promethazine [From Phenergan] AdvReac Severe severe Verified 02/02/19 14:18 fatigue BRIANA Inhibitors AdvReac Mild cough, Verified 02/02/19 07:07 cefuroxime AdvReac Mild GI SYMPTOMS Verified 02/02/19 07:07 Past Med/Surg History Medical History Depression (Chronic) HTN (hypertension) (Chronic) History of renal carcinoma (Chronic) Chronic systolic heart failure (Chronic) Chronic anemia (Chronic) Atrial fibrillation (Chronic) CAD (coronary artery disease) (Chronic) "2005 - PCI to LAD cath 2011 - no significant obstructive disease" DM type 2 (diabetes mellitus, type 2) (Chronic) Ischemic cardiomyopathy (Chronic) "echo 08/2015 - EF 25-30%, moderate tricuspid regurgitation" CVA (cerebral vascular accident) (Chronic) Squamous cell carcinoma (Chronic) Basal cell carcinoma (Chronic) V tach (Chronic) "s/p AICD placement" Cardiac defibrillator in place (Chronic) CKD (chronic kidney disease), stage IV CKD (chronic kidney disease), stage III (Chronic) Surgical History History of cataract surgery (Chronic) History of cardiac catheterization (Chronic) History of prior ablation treatment (Chronic) CT guided tissue ablation R kidney Family History Other Coronary heart disease Diabetes Stomach cancer Social History Preferred Language: [place] Communication Ability: Effective 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 and A total of 10 systems reviewed and were otherwise negative Physical Exam Vital Signs Vital Signs - 24 hr 02/02/19 06:36 02/02/19 07:34 02/02/19 07:35 Temperature 36.5 C Temperature Source Oral Sepsis Recent Fever Within 48 Hours No Sepsis Action Taken by Nursing No Action Required Pulse Rate 110 H Pulse Rate [Apical] 105 H Pulse Rate from SpO2 Sensor Pulse Rhythm [Apical] Pulse Strength [Apical] Respiratory Rate 16 18 Respiratory Effort / Characteristics Non-Labored Spontaneous Respiratory Depth Normal Normal Respiratory Pattern Blood Pressure 115/71 Blood Pressure [Left Arm] 123/97 Blood Pressure Mean 85 Blood Pressure Mean [Left Arm] 105 Blood Pressure Position [Left Arm] Pulse Oximetry 98 96 97 Oxygen Delivery Method Room Air Room Air Room Air 02/02/19 08:26 02/02/19 09:00 02/02/19 09:30 Temperature Temperature Source Sepsis Recent Fever Within 48 Hours Sepsis Action Taken by Nursing Pulse Rate 107 H 85 Pulse Rate [Apical] 113 H Pulse Rate from SpO2 Sensor 111 H 91 H Pulse Rhythm [Apical] Pulse Strength [Apical] Respiratory Rate 18 17 15 Respiratory Effort / Characteristics Non-Labored Spontaneous Respiratory Depth Normal Respiratory Pattern Blood Pressure 105/74 105/76 Blood Pressure [Left Arm] 119/77 Blood Pressure Mean 84 85 Blood Pressure Mean [Left Arm] 91 Blood Pressure Position [Left Arm] Pulse Oximetry 97 96 96 Oxygen Delivery Method Room Air Room Air Room Air 02/02/19 10:00 02/02/19 10:31 02/02/19 11:02 Temperature Temperature Source Sepsis Recent Fever Within 48 Hours Sepsis Action Taken by Nursing Pulse Rate 91 H 104 H 102 H Pulse Rate [Apical] Pulse Rate from SpO2 Sensor 92 H 96 H Pulse Rhythm [Apical] Pulse Strength [Apical] Respiratory Rate 18 17 20 Respiratory Effort / Characteristics Respiratory Depth Respiratory Pattern Blood Pressure 112/83 121/83 126/92 Blood Pressure [Left Arm] Blood Pressure Mean 92 95 Blood Pressure Mean [Left Arm] Blood Pressure Position [Left Arm] Pulse Oximetry 98 96 95 Oxygen Delivery Method Room Air 02/02/19 11:15 02/02/19 11:20 Temperature 36.4 C L Temperature Source Oral Sepsis Recent Fever Within 48 Hours Sepsis Action Taken by Nursing Pulse Rate 91 H Pulse Rate [Apical] 97 H Pulse Rate from SpO2 Sensor Pulse Rhythm [Apical] Regular Pulse Strength [Apical] Normal Respiratory Rate 16 Respiratory Effort / Characteristics Non-Labored Spontaneous Respiratory Depth Normal Respiratory Pattern Regular Blood Pressure Blood Pressure [Left Arm] 112/77 Blood Pressure Mean Blood Pressure Mean [Left Arm] 88 Blood Pressure Position [Left Arm] Lying Pulse Oximetry 97 Oxygen Delivery Method Room Air General: Chornically-ill appearing older male in no acute distress. HEENT: Normal cephalic atraumatic. Pupils are equal round and reactive to light. Extraocular movements are intact. Oropharynx is pink with moist mucous membranes. No swelling of the mouth lips or tongue. Neck: Supple with a midline trachea. No meningeal signs or stiffness, no JVD or bruits. No Stridor. Chest: Clear to auscultation bilaterally. No wheezes or rhonchi. No increased work of breathing. Heart: regular rate and rhythm. Abdomen: Soft nontender, nondistended without rebound guarding or rigidity. Extremities: No cyanosis clubbing or edema. No calf tenderness or assymetry Spine/Back. Non tender to palpation. No CVA tenderness Skin: Good turgor without rashes. Neurologic exam: Cranial nerves two through 12 are intact. Motor and sensation are intact and symmetrical throughout. Course 0659: Past medical records reviewed. The patient was evaluated in room C10, and a complete history and physical examination were performed. 0727: The patient is back from CT and is now nauseous and gagging, which his daughter states he has been experiencing intermittently. Ordered Zofran. 0756: Upon reevaluation, the patient is more comfortable. 0814: I reviewed the patient's case with Sisi Guerrero PA-C, [facility]. She will evaluate the patient for further management. 0819: Upon reevaluation, the patient is resting. I discussed test results. They verbalized agreement with the treatment plan. Consultations Consultation #1: Sisi Guerrero PA-C, [facility] hospitalist Time: 08:14 Administered Medications Clopidogrel Bisulfate (Plavix) 75 mg PO [facility] Stop: 03/04/19 11:59 Last Admin: 02/02/19 13:34 Dose: 75 mg Documented by: [id number] Metoprolol Succinate (Toprol Xl) 100 mg PO BID [facility] Stop: 03/04/19 11:59 Last Admin: 02/02/19 13:35 Dose: 100 mg Documented by: [id number] Testosterone 1%~Non- Formulary Patient's Own Med 1 ea TOP DAILY [facility] Stop: 03/04/19 12:29 Last Admin: 02/02/19 13:33 Dose: 50 mg Documented by: [id number] Pantoprazole Sodium (Protonix) 40 mg PO BID [facility] Stop: 03/04/19 12:44 Last Admin: 02/02/19 13:35 Dose: 40 mg Documented by: [id number] Potassium Chloride (Klor-Con M20) 40 meq PO [facility] Stop: 03/04/19 08:59 Last Admin: 02/02/19 13:35 Dose: 40 meq Documented by: [id number] Prednisone (Prednisone) 17.5 mg PO DAILY@1200 PAVAN; Taper; Protocol Stop: 03/23/19 11:59 Last Admin: 02/02/19 13:37 Dose: Not Given Documented by: [id number] Sertraline HCl (Zoloft) 50 mg PO [facility] Stop: 03/04/19 11:59 Last Admin: 02/02/19 13:36 Dose: 50 mg Documented by: [id number] Torsemide (Demadex) 80 mg PO [facility] Stop: 03/04/19 11:59 Last Admin: 02/02/19 13:35 Dose: 80 mg Documented by: [id number] Discontinued Medications Sodium Chloride (Nss 1000ml) 500 mls @ 999 mls/hr IV .Q31M ONE Stop: 02/02/19 07:40 Last Infusion: 02/02/19 08:05 Dose: 0 mls/hr Documented by: [id number] Admin: 02/02/19 07:32 Dose: 999 mls/hr Documented by: [id number] Ondansetron HCl (Zofran) 4 mg IV NOW STA Stop: 02/02/19 07:29 Last Admin: 02/02/19 07:32 Dose: 4 mg Documented by: [id number] Pantoprazole Sodium (Protonix) 40 mg PO [facility] Stop: 03/04/19 11:59 Last Admin: 02/02/19 12:38 Dose: Not Given Documented by: [id number] Promethazine HCl (Phenergan) 12.5 mg PO Q6H PRN PRN Reason: Nausea And Vomiting Stop: 03/04/19 11:42 Last Admin: 02/02/19 12:02 Dose: 12.5 mg Documented by: [id number] Medical Decision Making Differential Diagnosis Etiologies considered include renal failure, cardiac disease, abdominal process, intracranial process, infection, electrolyte or metabolic abnormality. Medical Records Attestation: I reviewed the patient's medical records. Home Medications Current Medication List: was personally reviewed by me Laboratory Data Attestation: I reviewed the patient's lab results. Result diagrams: 02/02/19 07:35 02/02/19 07:35 Lab Results 02/02/19 02/02/19 02/02/19 Range/Units 07:35 07:35 07:35 WBC 11.02 H (4.8-10.8) K/uL RBC 3.24 L (4.7-6.1) M/uL Hgb 9.7 L (14.0-18.0) g/dL Hct 30.8 L (42-52) % MCV 95.1 (80-100) fL MCH 29.9 (25-34) pg MCHC 31.5 L (32-36) g/dL RDW Std Deviation 60.3 H (36.4-46.3) fL RDW Coeff of Dung 17.4 H (11.5-14.5) % Plt Count 181 (130-400) K/uL MPV 10.5 H (7.4-10.4) fL Immature Gran % (Auto) 0.3 % Neut % (Auto) 73.7 % Lymph % (Auto) 11.4 % [place] % (Auto) 13.7 % Eos % (Auto) 0.8 % Baso % (Auto) 0.1 % Immature Gran # (Auto) 0.03 H (0.00-0.02) K/uL Neut # (Auto) 8.12 H (1.4-6.5) K/uL Lymph # (Auto) 1.26 (1.2-3.4) K/uL [place] # (Auto) 1.51 H (0.11-0.59) K/uL Eos # (Auto) 0.09 (0-0.5) K/uL Baso # (Auto) 0.01 (0-0.2) K/uL PT 32.5 H (9.0-12.0) Seconds INR 3.5 H (0.9-1.1) APTT 36.2 H (21.0-31.0) Seconds PTT Ratio 1.3 Sodium 142 (136-145) mmol/L Potassium 4.8 (3.5-5.1) mmol/L Chloride 102 (98-107) mmol/L Carbon Dioxide 32 (21-32) mmol/L Anion Gap 8.0 (3-11) BUN 81 H (7-18) mg/dl Creatinine 3.60 H (0.6-1.4) mg/dl Est Cr Clr Drug Dosing 17.2 ml/min Est GFR ( Amer) 17.6 Est GFR (Non-Af Amer) 15.1 BUN/Creatinine Ratio 22.5 H (10-20) Glucose 134 H (70-99) mg/dl POC Glucose (70-99) Calcium 9.6 (8.5-10.1) mg/dl Total Bilirubin 0.4 (0.2-1) mg/dl AST 25 (15-37) U/L ALT 32 (12-78) U/L Alkaline Phosphatase 81 (45-117) U/L Troponin I 0.089 H* (0-0.045) ng/ml Total Protein 7.3 (6.4-8.2) gm/dl Albumin 3.7 (3.4-5.0) gm/dl Globulin 3.6 (2.5-4.0) gm/dl Albumin/Globulin Ratio 1.0 (0.9-2) Lipase 243 (73-393) U/L Urine Color Urine Appearance (Clear) Urine pH (4.5-7.5) Ur Specific [place] (1.000-1.030) Urine Protein (Negative) Urine Glucose (UA) (Negative) Urine Ketones (Negative) Urine Blood (Negative) Urine Nitrite (Negative) Urine Bilirubin (Negative) Urine Urobilinogen (Negative) Ur Leukocyte Esterase (Negative) Urine WBC (Auto) (0-5) /hpf Urine RBC (Auto) (0-4) /hpf U Hyaline Cast (Auto) (0-5) /lpf U Epithel Cells (Auto) (0-5) /lpf Urine Bacteria (Auto) (Negative) 02/02/19 02/02/19 Range/Units 09:55 11:27 WBC (4.8-10.8) K/uL RBC (4.7-6.1) M/uL Hgb (14.0-18.0) g/dL Hct (42-52) % MCV (80-100) fL MCH (25-34) pg MCHC (32-36) g/dL RDW Std Deviation (36.4-46.3) fL RDW Coeff of Dung (11.5-14.5) % Plt Count (130-400) K/uL MPV (7.4-10.4) fL Immature Gran % (Auto) % Neut % (Auto) % Lymph % (Auto) % [place] % (Auto) % Eos % (Auto) % Baso % (Auto) % Immature Gran # (Auto) (0.00-0.02) K/uL Neut # (Auto) (1.4-6.5) K/uL Lymph # (Auto) (1.2-3.4) K/uL [place] # (Auto) (0.11-0.59) K/uL Eos # (Auto) (0-0.5) K/uL Baso # (Auto) (0-0.2) K/uL PT (9.0-12.0) Seconds INR (0.9-1.1) APTT (21.0-31.0) Seconds PTT Ratio Sodium (136-145) mmol/L Potassium (3.5-5.1) mmol/L Chloride (98-107) mmol/L Carbon Dioxide (21-32) mmol/L Anion Gap (3-11) BUN (7-18) mg/dl Creatinine (0.6-1.4) mg/dl Est Cr Clr Drug Dosing ml/min Est GFR ( Amer) Est GFR (Non-Af Amer) BUN/Creatinine Ratio (10-20) Glucose (70-99) mg/dl POC Glucose 169 H (70-99) Calcium (8.5-10.1) mg/dl Total Bilirubin (0.2-1) mg/dl AST (15-37) U/L ALT (12-78) U/L Alkaline Phosphatase (45-117) U/L Troponin I (0-0.045) ng/ml Total Protein (6.4-8.2) gm/dl Albumin (3.4-5.0) gm/dl Globulin (2.5-4.0) gm/dl Albumin/Globulin Ratio (0.9-2) Lipase (73-393) U/L Urine Color Yellow Urine Appearance Clear (Clear) Urine pH 5.5 (4.5-7.5) Ur Specific [place] 1.012 (1.000-1.030) Urine Protein 1+ H (Negative) Urine Glucose (UA) Negative (Negative) Urine Ketones Negative (Negative) Urine Blood Negative (Negative) Urine Nitrite Negative (Negative) Urine Bilirubin Negative (Negative) Urine Urobilinogen Negative (Negative) Ur Leukocyte Esterase Negative (Negative) Urine WBC (Auto) 1-5 (0-5) /hpf Urine RBC (Auto) 0-4 (0-4) /hpf U Hyaline Cast (Auto) 1-5 (0-5) /lpf U Epithel Cells (Auto) 10-20 H (0-5) /lpf Urine Bacteria (Auto) Negative (Negative) Imaging Data Radiologist's Impression: Radiology results as stated below per my review and the radiologist's interpretation: XR chest 1V portable HISTORY: Atypical Chest Pain COMPARISON: Chest 01/27/2019. FINDINGS: Left single lead pacemaker is noted. No pneumothorax. There are low lung volumes. The heart is enlarged. There is mild central pulmonary vascular congestion without overt edema. Low lung findings with right basilar densities. This has improved. The left lung is clear. There may be a trace right pleural effusion. IMPRESSION: 1. Cardiomegaly with mild pulmonary vascular congestion. 2. Patchy right basilar densities and a trace right pleural effusion have improved. Electronically signed by: Warner Nelson M.D. 02/02/2019 7:[address] head/brain wo con CLINICAL HISTORY: nausea DIZZINESS COMPARISON STUDY: 18 TECHNIQUE: Axial CT of the brain is performed from the vertex to the skull base. IV contrast was not administered for this examination. A dose lowering technique was utilized adhering to the principles of ALARA. CT DOSE: 1853.90 mGy.cm FINDINGS: No intra or extra-axial mass lesions are visualized. There is no CT evidence of acute cortical infarction. There is no evidence of midline shift. There is no acute hemorrhage. No calvarial fractures are visualized. There are patchy white matter hypodensities likely on a small vessel basis. T here is an old left parietal lobe infarct. There is an old right basal ganglia lacunar infarct. There is no evidence of pathologic ventricular dilatation. There is no evidence of acute sinusitis IMPRESSION: No acute intracranial findings Electronically signed by: Keaton Cano M.D. 02/02/2019 7:[address] SCAN OF THE ABDOMEN AND PELVIS WITHOUT CONTRAST CLINICAL HISTORY: Nausea, vomiting, diffuse abdominal pain. Renal failure. COMPARISON STUDY: 01/12/2019 TECHNIQUE: CT scan of the abdomen and pelvis was performed from the lung bases to the proximal femurs. Images are reviewed in the axial, sagittal, and coronal planes. IV contrast was not administered for this examination. A dose lowering technique was utilized adhering to the principles of ALARA. CT DOSE: FINDINGS: Lower chest: The heart is enlarged. There is a pericardial effusion which appears smaller than on the preceding study. There are coronary artery calcifications. There are basilar atelectatic changes. Liver: The liver has a cirrhotic morphology. No focal masses are visualized. Gallbladder: Unremarkable. Spleen: Normal in size and attenuation. Pancreas: Unremarkable. Adrenal glands: Unremarkable. Kidneys: No renal, ureteral, or bladder calculi are visualized. There is a 42 mm left renal cyst. There is a persistent indeterminate 19 mm mid pole right renal lesion. Bowel: Bowel evaluation is limited due to respiratory artifact, and the absence of intravenous and oral contrast. There are no transition zones indicate bowel obstruction. There is colonic diverticulosis. There is a left inguinal hernia containing a segment of sigmoid colon. There is a right inguinal hernia containing a tiny portion of cecum. Equivocal infiltration of the fat near the level of the hepatic flexure, may be artifactual as there is significant motion artifact at this level. Peritoneum: There is low volume ascites. No free air is visualized. There is a small fat-containing umbilical hernia. Vasculature: The abdominal aorta is normal in course and caliber. Adenopathy: None. Pelvic viscera: The bladder, and pelvic viscera are unremarkable. Skeletal structures: No destructive osseous lesions are seen. IMPRESSION: 1. No evidence of bowel obstruction. No evidence of free air 2. Diverticulosis. No evidence of acute diverticulitis 3. Suspected hepatic cirrhosis. Increasing low volume ascites. 4. Indeterminate 19 mm mid pole right renal mass 5. Bowel containing bilateral inguinal hernias. No obstructive changes noted 6. Cardiomegaly, coronary artery calcifications, and small pericardial effusion. Electronically signed by: Keaton Cano M.D. 02/02/2019 7:42 AM ECG Data Attestation: I personally reviewed and interpreted this ECG as follows: Indication: nausea Rate (beats per minute): 111 Rhythm: atrial fibrillation Findings: + other (Nonspecific T-wave abnormality), + LAFB and + RBBB; no ST depression and no ST elevation Comparison ECG Date: from (01/16/19) Change: no significant change Blood Pressure Blood Pressure Findings: Normal blood pressure Blood Pressure Disposition: did not require urgent referral MDM Narrative This patient comes in as described above. He was placed in room C10. He was placed in room C10. he has had nausea. Initially he looked okay but then started getting very nauseated. He was given IV Zofran and felt a lot better. he was just discharged from the hospital last night .he had a very complex me dical history as of late and has had recent issues with renal failure. he was dialyzed briefly during his last hospital stay although his creatinine did come down in the 3 range. He has had no fever or chills. His abdomen is benign. He had no chest pain. He is on Coumadin. No headache. No neurologic deficits. IV access established and blood work was obtained. EKG does not show any ischemic changes. His troponins mildly elevated 0.089 which he tends to run on the elevated side but it is difficult to rule out a cardiac event. Chest x-ray was unremarkable. Head CT was unremarkable. Abdominal scan was unremarkable for any acute process. He was gently hydrated with normal saline. He was reassessed frequently. I did consult [facility] to [facility] him as I am concerned that he may need to be observed/admitted. Family was happy with the plan. Impression & Plan Nausea, Renal failure, Elevated troponin, DM type 2 (diabetes mellitus, type 2), Anticoagulant long-term use Discharge Plan Visit Data *Final* Discharge Date/Time: 02/02/19 11:02 Chief Complaint: Nausea Stated Complaint: NAUSEA,COLD SWEAT ED Provider: Jules Galloway Discharge Problem: Nausea, Renal failure, Elevated troponin, DM type 2 (diabetes mellitus, type 2), Anticoagulant long-term use Patient Disposition: Admitted As Inpatient Discharge Instructions Interventions: ED Discharge Assessment Last Done: 02/02/19 11:02 The halimaibe's documentation has been prepared under my direction and personally reviewed by me in its entirety. I confirm that the note above accurately reflects all work, treatment, procedures, and medical decision making performed by me.
[2019-02-02] MEDS ORDERED: WARFARIN SOD 5 MG TAB PO SCH (16:00)
[2019-02-02] MEDS: INSULIN ASPART 100 UNITS/ML 3 ML PEN SC SCH ×2 (18:11→20:55)
[2019-02-02] MEDS: ROSUVASTATIN CALCIUM 20 MG TAB PO SCH (20:00)
[2019-02-03 07:14] LABS: Hematocrit (blood only) 29.6 % (42-52); Hemoglobin 9.2 g/dL (14.0-18.0); Mean Corpuscular Hgb Conc 31.1 g/dL (32-36); Mean Corpuscular Volume 95.8 fL (80-100); Mean Platelet Volume 10.9 fL (7.4-10.4); Platelet Count 151 K/uL (130-400); RDW Coefficient of Variation 17.8 % (11.5-14.5); RDW Standard Deviation 61.5 fL (36.4-46.3); Red Blood Count 3.09 M/uL (4.7-6.1)
[2019-02-03 07:23] LABS: INR 2.5 (0.9-1.1); Prothrombin Time 24.2 Seconds (9.0-12.0)
[2019-02-03 07:43] LABS: BUN Creatinine Ratio 21.4 (10-20); Calcium 9.3 mg/dl (8.5-10.1); Creatinine Clr Calc Pharmacy 16.9 ml/min; Est GFR (African American) 17.2; Est GFR (Non-African American) 14.8; Potassium 4.2 mmol/L (3.5-5.1)
[2019-02-03] MEDS: TORSEMIDE 20 MG TAB PO SCH (08:28)
[2019-02-03] MEDS: SERTRALINE HCL 50 MG TABLET PO SCH (08:28)
[2019-02-03] MEDS: POTASSIUM CHLORIDE 20 MEQ TABCR PO SCH (08:29)
[2019-02-03] MEDS: CLOPIDOGREL BISULFATE 75 MG TAB PO SCH (08:29)
[2019-02-03] MEDS: ROSUVASTATIN CALCIUM 20 MG TAB PO SCH (08:29)
[2019-02-03] MEDS: TESTOSTERONE 1% TOP SCH (08:30)
[2019-02-03] MEDS: PANTOprazole 40 MG TAB PO SCH (08:30)
[2019-02-03] MEDS: METOPROLOL SUCC 50MG EXT REL TAB PO SCH (08:32)
[2019-02-03] MEDS: INSULIN ASPART 100 UNITS/ML 3 ML PEN SC SCH ×2 (09:25→12:28)
--- NOTE | 2019-02-03 13:09 | Discharge Summary ---
Date of Service February 03, 2019 Admission HPI Per Admitting Provider 78-year-old man recently admitted for worsening of stage IV chronic kidney disease and pericardial effusion, who was discharged from the hospital yesterday, presents this morning with dry heaves and nausea overnight. Although the patient reported a resolution of nausea yesterday and for the past several days, evidently he had been having some nausea overnight consistently for about the last week. This would resolve and he would tolerate solid foods without issue. It is noted that he was off testosterone therapy while admitted for the last 3 weeks. He also recently started back on his sertraline yesterday mor edward. Multiple medications were changed, however, he denies any use of medications last night. Did report nausea and dry heaves were then followed by diffuse sweating and a headache. On arrival to the ER vital signs are similar to yesterday. He does have some resting tachycardia from his atrial fibrillation, for which metoprolol has been titrated recently. His EKG is unchanged. His blood work is about the same. His abdomen is benign on exam and he is reporting some residual discomfort in his stomach, but denies nausea. He frankly denies abdominal pain. He denies any diarrhea or change in stool overnight. He had reliably been having bowel movements per his report prior to leaving yesterday. Other workup included a CT of the abdomen and pelvis which revealed no evidence of bowel obstruction, no evidence of free air, diverticulosis with no evidence of acute diverticulitis, suspected hepatic cirrhosis, indeterminate 19 mm mid pole right renal mass, bowel containing bilateral inguinal hernias with no obstructive changes noted. The patient is of sound mind and body and is requesting to go home, adamantly. However, his daughter who is at bedside and his via cell phone are both insisting that he stay as they are taking care of him. Admission Exam Per Admitting Provider Temp 36.4 C L 02/02/19 11:15 Pulse 97 H 02/02/19 11:15 Resp 16 02/02/19 11:15 BP 112/77 02/02/19 11:15 Pulse Ox 97 02/02/19 11:15 CONSTITUTIONAL: WNWD, vitals as above, generally well-appearing EYES: normal conjuctivae, no scleral icterus RESPIRATORY: clear to auscultation bilaterally, no crackles, rales or wheezes, normal respiratory effort CARDIOVASCULAR: regular rate and rhythm, S1 and 2 heard without murmurs, gallops or rubs, no JVD, no peripheral edema GASTROINTESTINAL: normal bowel sounds, soft, nontender, nondistended MUSCULOSKELETAL: strength 5/5 throughout, head is normocephalic and atraumatic SKIN: warm and dry NEUROLOGIC: No facial palsy, no dysarthria. CN 2-12 grossly intact, normal cognition, normal speech PSYCHIATRIC: alert cooperative and oriented Principal Diagnosis Nausea 2/2 prednisone use Discharge Data Allergies Allergy/AdvReac Type Severity Reaction Status Date / Time fentanyl Allergy Severe Decreased Verified 02/02/19 07:07 oxygen saturation, low RR, unresponsive midazolam Allergy Severe Decreased Verified 02/02/19 07:07 oxygen saturation, low RR, unresponsive. codeine Allergy Unknown GI SYMPTOMS Verified 02/02/19 07:07 promethazine [From Phenergan] AdvReac Severe severe Verified 02/02/19 14:18 fatigue BRIANA Inhibitors AdvReac Mild cough, Verified 02/02/19 07:07 cefuroxime AdvReac Mild GI SYMPTOMS Verified 02/02/19 07:07 Consultations 02/02/19 08:16 ED Decision to Admit Stat 02/02/19 11:43 Consult Case Management - Discharge Planning Routine Ordered Studies 02/02/19 07:06 CT abd pelvis wo con Stat CT head/brain wo con Stat Hospital Course (1) Nausea: (2) Supratherapeutic INR: (3) CKD (chronic kidney disease), stage IV: (4) Anemia in chronic kidney disease: (5) Pericardial effusion: (6) Chronic atrial fibrillation: (7) CAD (coronary artery disease): (8) DMII (diabetes mellitus, type 2): (9) Ischemic cardiomyopathy: (10) S/P ICD (internal cardiac defibrillator) procedure: (11) H/O: stroke: 78-year-old man recently hospitalized for greater than 3 weeks with pericardial effusion. He was started on prednisone for presumed pericarditis and had been taking this for approximately 1 week. Subsequently he was discharged home and reported to the ER the following day after a night of dry heaving and retching. Prednisone was promptly stopped and antiemetics were given as needed. Prior to discharge she was tolerating p.o. without issue. Continued all recommendations as per previous discharge instructions and follow- up with primary care closely. This was discussed with cardiology who was aware of the change in therapy. Also of note, potassium suplpementation to be taken with torsemide, new since last admission, was decreased from 40MEq daily to 20 MEq daily as admission potassium was 4.8. Total Time Total Time Spent Total Time Spent (In Minutes): 60 Total Time Includes: Examination of the Patient, Discharge Planning, Medication Reconciliation and Communication With Other Providers Discharge Plan Discharge Items Patient Disposition: Home - Home Health Services Reason For Visit: NAUSEA/VOMITING Discharge Diagnosis: Nausea 2/2 steroids-resolved Condition: Good Discharge Goals: Decrease discomfort and Improve function Activity: Resume your previous activity Non-emergency contact: Primary Care Provider Call non-emergency contact if: you have any medication questions, your symptoms worsen, your pain is not controlled, your pain is worsening, your pain is unusual for you, your pain is concerning for you and you have a fever Follow-up/Referrals: Alisson Martin MD, PhD [Physician] - Shade Thomas [Primary Care Provider] - Diet: Carb Consistent or DM2 and Low Potassium (2gm) Addtl Provider Instructions: Please take all instructions as needed. You have bloodwork to do ordered by Dr. Olivares at [facility]. This is ordered for Wednesday and is twice weekly as instructed on last discharge. You will need to get an INR at this time, also. Please follow-up with your anticoagulation clinic staff regarding this result and any needed changes in your coumadin dosing. Please stop the prednisone. No further treatment is needed for the pericardial effusion that was present. You are being sent home with Home Health for nursing care, Physical and Occupational therapy to help you temporarily with your transition home. You can expect them to touch base with you within the next couple of days. It was a pleasure taking care of you! Please call if you have any questions or problems. You can reach a [facility] hospitalist on duty at [facility] 24 hours a day by calling [phone]. Take care of yourself. Chelly Irving, DO [facility] Hospitalist Prescriptions: New potassium chloride [Klor-Con M20] 20 mEq Tablet,Er Particles/Crystals 20 meq PO QAM Qty: 30 RF: 1 Continued TESTOSTERONE GEL 1 applic Topical QAM Qty: 0 RF: 0 pantoprazole [Protonix] 40 mg Tablet,Delayed Release (Dr/Ec) 40 mg PO QAM RF: 0 nitroglycerin [Nitrostat] 0.4 mg Tablet, Sublingual 0.4 mg Sublingual UD PRN (Reason: Chest Pain) RF: 0 clopidogrel [Plavix] 75 mg Tablet 75 mg PO QAM RF: 0 sertraline 50 mg Tablet 50 mg PO QAM RF: 0 coenzyme Q10 [Co Q-10] 10 mg Capsule 10 mg PO QAM RF: 0 cyanocobalamin (vitamin B-12) 1,000 mcg Tablet 1,000 mcg PO QAM RF: 0 ferrous gluconate 324 mg (37.5 mg iron) Tablet 324 mg PO QAM RF: 0 rosuvastatin [Crestor] 20 mg Tablet 20 mg PO QAM RF: 0 multivitamin [Multiple Vitamins] Tablet 1 tab PO QAM RF: 0 metoprolol succinate 50 mg Tablet Extended Release 24 Hr 100 mg PO BID17 Qty: 60 RF: 1 glipizide 5 mg tablet 2.5 mg PO BID Qty: 30 RF: 1 torsemide 20 mg Tablet 80 mg PO QAM 30 Days Qty: 120 RF: 1 warfarin 5 mg Tablet See Rx Instructions .ROUTE .COMPLEX RF: 0 Discontinued potassium chloride [Klor-Con M20] 20 mEq Tablet,Er Particles/Crystals 40 meq PO QAM Qty: 30 RF: 1 prednisone 2.5 mg tablet 2.5 mg PO .taper Qty: 200 RF: 0 Stand-Alone Forms: [facility]/Other Patient Handouts: Coumadin Discharge Orders: Discharge Order (Routine); Ordered 02/03/19 Ordered By: Chelly Irving Admission Data Admit Date/Time: 02/02/19 09:08 Attending Provider: Chelly Irving Admit Provider: Chelly Irving Primary Care Provider: Shade Thomas Other Providers: Chelly Irving Service: Telemetry Other Interventions: Discharge Summary Assessment (RN) Last Done: 02/03/19 13:37 DC Date/Time DO NOT enter until pt leaves facility: 02/03/19 15:04
[2019-02-03] MEDS ORDERED: WARFARIN SOD 5 MG TAB PO SCH (16:00)
[2019-02-05] MEDS ORDERED: WARFARIN SOD 7.5 MG TAB PO SCH (16:00)
== END 2019-02-03 15:04 | disposition home health service (06) ==
LOC: ED 06:33 → 2S 06:33

== ENCOUNTER 2019-03-17 16:56 | Inpatient (IN) ==
[2019-03-17] MEDS ORDERED: SODIUM CHLORIDE 0.9% 1000ML 500 ML IV ONE (17:58)
--- NOTE | 2019-03-17 18:18 | XRay Report ---
XR chest 1V portable HISTORY: 78 years-old Male fever acute fever COMPARISON: Chest radiograph 02/02/2018 TECHNIQUE: Portable AP view of the chest FINDINGS: Cardiac silhouette is enlarged, unchanged. Mild right hemidiaphragmatic elevation is unchanged. There is mild pulmonary vascular congestion. Subsegmental bibasilar opacities are noted with mild intersti tial coarsening. Trace right pleural effusion. No pneumothorax. Ill-defined 11 mm nodular opacity abo ut the lateral right midlung. IMPRESSION: 1. Cardiomegaly with suggestion of mild pulmonary edema. 2. Unchanged mild right hemidiaphragmatic elevation with right basilar opacities and trace right pleu ral effusion. 3. Ill-defined 11 mm nodular density of the lateral right midlung suggestive of composite density art ifact versus pulmonary nodule. The above report was generated using voice recognition software. It may contain grammatical, syntax o r spelling errors. Electronically signed by: Samy Lara M.D. 03/17/2019 6:17 PM
[2019-03-17 18:41] LABS: Basophils # (auto) 0.05 K/uL (0-0.2); Basophils % (auto) 0.5 %; Eosinophils # (auto) 0.42 K/uL (0-0.5); Eosinophils % (auto) 4.5 %; Hematocrit (blood only) 29.7 % (42-52); Hemoglobin 9.3 g/dL (14.0-18.0); Immature Granulocytes # (auto) 0.01 K/uL (0.00-0.02); Immature Granulocytes % (auto) 0.1 %; Lymphocytes # (auto) 0.74 K/uL (1.2-3.4); Lymphocytes % (auto) 7.9 %; Mean Corpuscular Hgb Conc 31.3 g/dL (32-36); Mean Corpuscular Volume 90.5 fL (80-100); Mean Platelet Volume 9.9 fL (7.4-10.4); Monocytes # (auto) 1.71 K/uL (0.11-0.59); Monocytes % (auto) 18.3 %; Neutrophils # (auto) 6.39 K/uL (1.4-6.5); Neutrophils % (auto) 68.7 %; Platelet Count 201 K/uL (130-400); RDW Coefficient of Variation 15.4 % (11.5-14.5); RDW Standard Deviation 51.4 fL (36.4-46.3); Red Blood Count 3.28 M/uL (4.7-6.1); White Blood Count 9.32 K/uL (4.8-10.8)
[2019-03-17 18:58] LABS: Albumin Level 3.8 gm/dl (3.4-5.0); BUN Creatinine Ratio 25.1 (10-20); Calcium 10.3 mg/dl (8.5-10.1); Creatinine Clr Calc Pharmacy 21.8 ml/min; Est GFR (Non-African American) 20.7; Potassium 3.8 mmol/L (3.5-5.1)
[2019-03-17 19:03] LABS: Albumin Globulin Ratio 0.8 (0.9-2); Bilirubin,Total 0.5 mg/dl (0.2-1); Globulin 4.8 gm/dl (2.5-4.0); Total Protein 8.6 gm/dl (6.4-8.2); Troponin I 0.035 ng/ml (0-0.045)
[2019-03-17 19:05] LABS: Partial Thromboplastin Ratio 2.3; Prothrombin Time 49.5 Seconds (9.0-12.0)
[2019-03-17 19:25] LABS: Partial Thromboplastin Time 62.4 Seconds (21.0-31.0)
[2019-03-17 19:29] LABS: INR 5.5 (0.9-1.1)
[2019-03-17] MEDS ORDERED: SODIUM CHLORIDE 0.9% 1000ML 1,000 ML IV SCH (19:30)
[2019-03-17] MEDS ORDERED: ALBUT/IPRATROP 3MG/0.5MG NEB 3 ML VIAL NEB STA (19:41)
[2019-03-17] MEDS ORDERED: DEXTROSE 50% 50 ML SYRINGE IV ONE (19:45)
[2019-03-17] MEDS ORDERED: OSELTAMIVIR PHOSPHATE SUSP 30 MG/5 ML UDP PO STA (19:55)
--- NOTE | 2019-03-17 19:55 | CT Scan Report ---
CT head/brain wo con CLINICAL HISTORY: 78 years-old Male with fever, AMS. Acute fever with altered mental status TECHNIQUE: Multiple axial CT images of the head were obtained without contrast. A dose lowering tech nique was utilized adhering to the principles of ALARA. CT DOSE: 767.83 mGy.cm COMPARISON: Head CT 02/02/2019. FINDINGS: No acute intracranial hemorrhage, midline shift, intracranial mass, hydrocephalus, territorial ischem ia or abnormal extra-axial collection. Age-related involutional changes. Patchy white matter hypodens ities suggest chronic microvascular ischemic changes. Encephalomalacia about the posterior left front al lobe suggests remote infarction, unchanged. Study is motion degraded which limits the exam. Cerebr al vascular calcifications noted. Unchanged remote lacunar infarctions about the right basal ganglia. The calvarium is intact. Bilateral cataract repair. The paranasal sinuses, mastoid air cells, and mid dle ear cavities are clear. IMPRESSION: Motion degraded exam without acute intracranial abnormality identified. The above report was generated using voice recognition software. It may contain grammatical, syntax o r spelling errors. Electronically signed by: Samy Lara M.D. 03/17/2019 7:54 PM
[2019-03-17 20:29] LABS: HCO3 ABG 29 mmol/L (19-24); Oxygen Saturation ABG 95.6 % (90-95); PCO2 ABG 50 mmHg (35-46); PO2 ABG 93 mm/Hg (80-95); pH ABG 7.38 (7.35-7.45)
[2019-03-17 20:30] LABS: Allen Test POS (Pos)
--- NOTE | 2019-03-17 20:43 | Emergency Department Note ---
Entered by Adalgisa Isaac acting as a scribe for Staci Hyman MD History of Present Illness General Chief complaint: Congestion Stated complaint: CHEST CONGESTION, LOW O2, NOT EATING, LETHARGIC Source: patient and family History of Present Illness Onset (ago): day(s) (a few days ago) Location: chest Pain Consistency: + other (persistent) Maximum Pain Intensity: 0 Quality: + other (congestion) Associated symptoms: + cough, + fever/chills (fever), + loss of appetite and + other (low oxygen, lethargic, "spacey," radomly moving hands, doesn't remember doing anything, being tired, shallow breathing) The patient is a 78 year old male who presents to the Emergency Room with co mplaints of persistent congestion starting a few days ago. The patients daughter states that the patient has been running fevers from 100 and 102. She states that he has also had worsening chest congestion with a cough and she is concerned as his oxygen was down to 91%. She reports that he is on antibiotics for it, but it doesnt seem to be helping. She reports that today she noticed he was lethargic, had a poor appetite, is spacey, and moves his hands randomly. She notes that he is unaware of himself doing this. The patient states that he is fine and doesnt want to be here. The daughter notes that a month ago he was in the hospital for a month for kidney failure. She notes that his family has been sick with influenza, and he has been exposed. The patient complains of being tired. The patients daughter complains of him breathing shallow. Home Medications Home Medications Medication Instructions Recorded Confirmed Type clopidogrel [Plavix] 75 mg PO QAM 08/16/18 03/17/19 History coenzyme Q10 [Co Q-10] 10 mg PO QAM 08/16/18 03/17/19 History cyanocobalamin (vitamin B-12) 1,000 mcg PO QAM 08/16/18 03/17/19 History ferrous gluconate 324 mg PO QAM 08/16/18 03/17/19 History multivitamin [Multiple Vitamins] 1 tab PO QAM 08/16/18 03/17/19 History nitroglycerin [Nitrostat] 0.4 mg SUBLINGUAL UD PRN 08/16/18 03/17/19 History pantoprazole [Protonix] 40 mg PO QAM 08/16/18 03/17/19 History rosuvastatin [Crestor] 20 mg PO QAM 08/16/18 03/17/19 History sertraline 50 mg PO QAM 08/16/18 03/17/19 History glipizide 2.5 mg PO BID #30 tab 02/01/19 03/17/19 Rx torsemide 80 mg PO QAM 30 Days #120 tab 02/02/19 03/17/19 Rx warfarin 5 mg PO SUTUTH 02/02/19 03/17/19 History potassium chloride [Klor-Con M20] 20 meq PO QAM #30 tab 02/03/19 03/17/19 Rx dextromethorphan-guaifenesin 1 tab PO Q12H PRN 03/17/19 03/17/19 History [Mucinex DM] testosterone 1 packet TRANSDERMAL DAILY 03/17/19 03/17/19 History warfarin 7.5 mg PO MOWEFRSA 03/17/19 03/17/19 History doxycycline hyclate 100 mg PO BID #5 cap 03/20/19 Rx metoprolol succinate 125 mg PO BID 30 Days #150 tab 03/20/19 Rx oseltamivir [Tamiflu] 30 mg PO HS #2 cap 03/20/19 Rx Allergies Allergy/AdvReac Type Severity Reaction Status Date / Time fentanyl Allergy Severe Decreased Verified 03/17/19 18:20 oxygen saturation, low RR, unresponsive midazolam Allergy Severe Decreased Verified 03/17/19 18:20 oxygen saturation, low RR, unresponsive. codeine Allergy Unknown GI SYMPTOMS Verified 03/17/19 18:20 promethazine [From Phenergan] AdvReac Severe severe Verified 03/17/19 18:20 fatigue BRIANA Inhibitors AdvReac Mild cough, Verified 03/17/19 18:20 cefuroxime AdvReac Mild GI SYMPTOMS Verified 03/17/19 18:20 Past Med/Surg History Medical History CKD (chronic kidney disease), stage IV (Chronic) Cirrhosis of liver (Chronic) Anticoagulant long-term use (Chronic) Ischemic cardiomyopathy (Chronic) DMII (diabetes mellitus, type 2) (Chronic) CAD (coronary artery disease) (Chronic) Pericardial effusion (Resolved) Anemia in chronic kidney disease (Chronic) SBP (spontaneous bacterial peritonitis) (Resolved) Depression (Chronic) HTN (hypertension) (Chronic) History of renal carcinoma (Chronic) Chronic systolic heart failure (Chronic) Ascites (Resolved) CAD (coronary artery disease) (Chronic) "2005 - PCI to LAD cath 2011 - no significant obstructive disease" CVA (cerebral vascular accident) (Chronic) Squamous cell carcinoma (Chronic) Basal cell carcinoma (Chronic) V tach (Chronic) "s/p AICD placement" Gross hematuria (Resolved) Surgical History History of prior ablation treatment (Chronic) CT guided tissue ablation R kidney S/P ICD (internal cardiac defibrillator) procedure (Chronic) History of cataract surgery (Chronic) Family History Father Coronary heart disease Mother Coronary heart disease Social History Preferred Language: Faroese Communication Ability: Effective Visual Impairment: No Limitations 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 and A total of 10 systems reviewed and were otherwise negative Physical Exam Vital Signs Vital Signs - 24 hr 03/20/19 06:37 03/20/19 07:13 03/20/19 09:00 Temperature 36.5 C Temperature Source Oral Pulse Rate [Apical] Pulse Rate [Left Finger] 86 91 H Respiratory Rate 21 18 Respiratory Effort / Characteristics Non-Labored Spontaneous Non-Labored Blood Pressure [Left Arm] 156/75 H Blood Pressure [Right Arm] Blood Pressure Mean [Left Arm] 102 Pulse Oximetry 94 95 Pulse Oximetry [Recovery] Oxygen Delivery Method Nasal Cannula Room Air Oxygen Flow Rate 3 03/20/19 11:49 03/20/19 11:50 03/20/19 12:22 Temperature 36.5 C Temperature Source Pulse Rate [Apical] 93 H Pulse Rate [Left Finger] 91 H Respiratory Rate 18 Respiratory Effort / Characteristics Blood Pressure [Left Arm] 156/75 H Blood Pressure [Right Arm] 145/67 H Blood Pressure Mean [Left Arm] Pulse Oximetry 92 92 Pulse Oximetry [Recovery] 92 Oxygen Delivery Method Room Air Room Air Oxygen Flow Rate 03/20/19 14:10 Temperature Temperature Source Pulse Rate [Apical] Pulse Rate [Left Finger] 100 H Respiratory Rate 18 Respiratory Effort / Characteristics Non-Labored Spontaneous Blood Pressure [Left Arm] Blood Pressure [Right Arm] Blood Pressure Mean [Left Arm] Pulse Oximetry 96 Pulse Oximetry [Recovery] Oxygen Delivery Method Room Air Oxygen Flow Rate Vital signs reviewed. General: Elderly, chronically ill-appearing, in no significant distress. HEENT: No scleral icterus, PERRLA, neck supple. Atraumatic. Hard of hearing. Cardiovascular: Regular rate and rhythm, no extra sounds. Pulmonary: Borderline hypoxic on room air. Coarse breath sounds bilaterally with a moist cough. Abdomen: Soft, nontender, nondistended, positive bowel sounds. Musculoskeletal: Atraumatic, no peripheral edema. Neurologic: Patient awake alert and answers most questions appropriately. Skin: Warm, dry, no rash Course 1808: The patient was evaluated in room B11B. A complete history and physical exam was performed. 1937: I discussed the patient's case with Dr. Delmer Hinojosa. He will evaluate the patient for further management. 1940: I reevaluated the patient and updated him and his family on his test results. I discussed the treatment plan with them. They verbally agree and understand. Consultations Consultation #1: I discussed the patient's case with Dr. Delmer Hinojosa. He will evaluate the patient for further management. Time: 19:38 Administered Medications Discontinued Medications Albuterol (Duoneb) 3 ml NEB NOW STA Stop: 03/17/19 19:42 Last Admin: 03/17/19 21:03 Dose: 3 ml Documented by: [id number] Clopidogrel Bisulfate (Plavix) 75 mg PO [facility] Stop: 04/17/19 08:59 Last Admin: 03/20/19 07:34 Dose: 75 mg Documented by: [id number] Admin: 03/19/19 08:42 Dose: 75 mg Documented by: [id number] Admin: 03/18/19 10:17 Dose: 75 mg Documented by: [id number] Phytonadione 2 mg/ Sucrose 2 ml/ Microcrystalline Cellulose 2 ml/ BARCODE IDENTIFIER 1 ea 0 mg PO 2229 ONE Stop: 03/17/19 22:31 Last Admin: 03/17/19 22:34 Dose: 5 ml Documented by: [id number] Cyanocobalamin (Vitamin B-12) 1,000 mcg PO QAM [facility] Stop: 04/17/19 08:59 Last Admin: 03/20/19 07:37 Dose: 1,000 mcg Documented by: [id number] Admin: 03/19/19 08:41 Dose: 1,000 mcg Documented by: [id number] Admin: 03/18/19 09:10 Dose: 1,000 mcg Documented by: [id number] Dextrose (Dextrose 50%) 50 ml IV NOW ONE Stop: 03/17/19 19:46 Last Admin: 03/17/19 21:31 Dose: Not Given Documented by: [id number] Digoxin (Lanoxin) 0.25 mg PO 2129 ONE Stop: 03/18/19 21:31 Last Admin: 03/18/19 22:16 Dose: 0.25 mg Documented by: [id number] Digoxin (Lanoxin) 0.25 mg PO NOW ONE Stop: 03/18/19 23:23 Last Admin: 03/18/19 23:50 Dose: 0.25 mg Documented by: [id number] Digoxin (Lanoxin) 0.25 mg PO NOW ONE Stop: 03/19/19 02:14 Last Admin: 03/19/19 02:43 Dose: 0.25 mg Documented by: [id number] Doxycycline Hyclate (Vibramycin) 100 mg PO BID [facility] Stop: 03/24/19 20:59 Last Admin: 03/20/19 07:36 Dose: 100 mg Documented by: [id number] Admin: 03/19/19 20:37 Dose: 100 mg Documented by: [id number] Admin: 03/19/19 08:41 Dose: 100 mg Documented by: [id number] Admin: 03/18/19 21:15 Dose: 100 mg Documented by: [id number] Admin: 03/18/19 09:09 Dose: 100 mg Documented by: [id number] Ferrous Gluconate (Ferrous Gluconate) 324 [facility] Stop: 04/17/19 08:59 Last Admin: 03/20/19 07:36 Dose: 324 mg Documented by: [id number] Admin: 03/19/19 08:41 Dose: 324 mg Documented by: [id number] Admin: 03/18/19 09:10 Dose: 324 mg Documented by: [id number] Sodium Chloride (Nss 1000ml) 500 mls @ 999 mls/hr IV .Q31M ONE Stop: 03/17/19 18:28 Last Infusion: 03/17/19 19:31 Dose: 0 mls/hr Documented by: [id number] Admin: 03/17/19 18:44 Dose: 999 mls/hr Documented by: [id number] Sodium Chloride (Nss 1000ml) 1,000 mls @ 125 mls/hr IV .Q8H PAVAN Stop: 04/16/19 19:29 Last Admin: 03/17/19 22:20 Dose: Not Given Documented by: [id number] Doxycycline Hyclate 100 mg/ (Dextrose) 110 mls @ 50 mls/hr IV NOW STA Stop: 03/17/19 23:12 Last Infusion: 03/17/19 23:43 Dose: 0 mls/hr Documented by: [id number] Admin: 03/17/19 21:32 Dose: 50 mls/hr Documented by: [id number] Potassium Chloride/Sodium Chloride (Normal Saline W/20 Meq Kcl) 20 meq in 1,000 mls @ 50 mls/hr IV .Q20H ONE Stop: 03/18/19 20:45 Last Infusion: 03/18/19 10:18 Dose: 0 mls/hr Documented by: [id number] Admin: 03/18/19 01:46 Dose: 50 mls/hr Documented by: [id number] Albumin Human (Albumin 25%) 50 mls @ 50 mls/hr IV ONE ONE Stop: 03/19/19 00:23 Last Infusion: 03/19/19 02:07 Dose: 0 mls/hr Documented by: [id number] Admin: 03/18/19 23:55 Dose: 50 mls/hr Documented by: [id number] Sodium Chloride (Nss) 500 mls @ 80 mls/hr IV .Q6H15M ONE Stop: 03/19/19 11:06 Last Infusion: 03/19/19 11:35 Dose: 0 mls/hr Documented by: [id number] Admin: 03/19/19 05:08 Dose: 80 mls/hr Documented by: [id number] Insulin Aspart (Novolog Flexpen) 0 units SC ACHS PAVAN Stop: 04/16/19 21:09 Last Admin: 03/20/19 09:22 Dose: Not Given Documented by: [id number] Cosigned by: [id number] Admin: 03/19/19 21:41 Dose: Not Given Documented by: [id number] Cosigned by: [id number] Admin: 03/19/19 17:10 Dose: Not Given Documented by: [id number] Cosigned by: [id number] Admin: 03/19/19 11:59 Dose: Not Given Documented by: [id number] Cosigned by: [id number] Admin: 03/19/19 08:30 Dose: Not Given Documented by: [id number] Cosigned by: [id number] Admin: 03/18/19 22:13 Dose: Not Given Documented by: [id number] Cosigned by: [id number] Admin: 03/18/19 17:36 Dose: Not Given Documented by: [id number] Cosigned by: [id number] Admin: 03/18/19 12:46 Dose: 1 units Documented by: [id number] Cosigned by: [id number] Admin: 03/18/19 09:01 Dose: Not Given Documented by: [id number] Cosigned by: [id number] Admin: 03/17/19 22:21 Dose: Not Given Documented by: [id number] Cosigned by: [id number] Ipratropium Lamont (Atrovent 0.02% 0.5mg/2.5ml) 0.5 mg INH Q6R PAVAN Stop: 04/17/19 01:59 Last Admin: 03/20/19 14:06 Dose: 0.5 mg Documented by: [id number] Admin: 03/20/19 07:11 Dose: 0.5 mg Documented by: [id number] Admin: 03/20/19 01:43 Dose: 0.5 mg Documented by: [id number] Admin: 03/19/19 19:11 Dose: 0.5 mg Documented by: [id number] Admin: 03/19/19 14:06 Dose: 0.5 mg Documented by: [id number] Admin: 03/19/19 07:09 Dose: 0.5 mg Documented by: [id number] Admin: 03/19/19 02:11 Dose: 0.5 mg Documented by: [id number] Admin: 03/18/19 18:55 Dose: 0.5 mg Documented by: [id number] Admin: 03/18/19 15:01 Dose: 0.5 mg Documented by: [id number] Admin: 03/18/19 07:25 Dose: 0.5 mg Documented by: [id number] Admin: 03/18/19 01:58 Dose: 0.5 mg Documented by: [id number] Levalbuterol HCl (Xopenex 1.25mg/0.5ml Neb) 1.25 mg INH Q6R PAVAN Stop: 04/17/19 01:59 Last Admin: 03/18/19 15:01 Dose: 1.25 mg Documented by: [id number] Admin: 03/18/19 07:24 Dose: 1.25 mg Documented by: [id number] Admin: 03/18/19 01:58 Dose: 1.25 mg Documented by: [id number] Levalbuterol HCl (Xopenex 0.63 Mg/3 Ml Neb) 0.63 mg NEB Q6R PAVAN Stop: 04/17/19 19:59 Last Admin: 03/20/19 14:07 Dose: 0.63 mg Documented by: [id number] Admin: 03/20/19 07:11 Dose: 0.63 mg Documented by: [id number] Admin: 03/20/19 01:44 Dose: 0.63 mg Documented by: [id number] Admin: 03/19/19 19:12 Dose: 0.63 mg Documented by: [id number] Admin: 03/19/19 14:06 Dose: 0.63 mg Documented by: [id number] Admin: 03/19/19 07:09 Dose: 0.63 mg Documented by: [id number] Admin: 03/19/19 02:11 Dose: 0.63 mg Documented by: [id number] Admin: 03/18/19 18:56 Dose: 0.63 mg Documented by: [id number] Methylprednisolone (Solumedrol) 20 mg IV NOW STA Stop: 03/17/19 21:02 Last Admin: 03/17/19 21:32 Dose: 20 mg Documented by: [id number] Metoprolol Succinate (Toprol Xl) 100 mg PO BID PAVAN Stop: 04/17/19 08:59 Last Admin: 03/18/19 21:16 Dose: 100 mg Documented by: [id number] Admin: 03/18/19 09:10 Dose: 100 mg Documented by: [id number] Metoprolol Succinate (Toprol Xl) 25 mg PO NOW STA Stop: 03/18/19 23:23 Last Admin: 03/18/19 23:50 Dose: 25 mg Documented by: [id number] Metoprolol Succinate (Toprol Xl) 125 mg PO BID [facility] Stop: 04/18/19 03:29 Last Admin: 03/19/19 04:56 Dose: 125 mg Documented by: [id number] Metoprolol Succinate (Toprol Xl) 125 mg PO BID [facility] Stop: 04/18/19 19:44 Last Admin: 03/20/19 07:34 Dose: 125 mg Documented by: [id number] Admin: 03/19/19 20:36 Dose: 125 mg Documented by: [id number] Metoprolol Tartrate (Lopressor) 12.5 mg PO 2215 ONE Stop: 03/17/19 22:16 Last Admin: 03/17/19 22:36 Dose: 12.5 mg Documented by: [id number] Multivitamins (Multivitamin Tab) 1 tab PO [facility] Stop: 04/17/19 08:59 Last Admin: 03/20/19 07:38 Dose: 1 tab Documented by: [id number] Admin: 03/19/19 08:41 Dose: 1 tab Documented by: [id number] Admin: 03/18/19 09:10 Dose: 1 tab Documented by: [id number] Oseltamivir Phosphate (Tamiflu) 30 mg PO NOW [facility]; Protocol Stop: 03/17/19 19:56 Last Admin: 03/17/19 21:03 Dose: 30 mg Documented by: [id number] Oseltamivir Phosphate (Tamiflu) 30 mg PO [facility]; Protocol Stop: 03/21/19 21:01 Last Admin: 03/19/19 20:38 Dose: 30 mg Documented by: [id number] Admin: 03/18/19 21:22 Dose: 30 mg Documented by: [id number] Pantoprazole Sodium (Protonix) 40 mg PO [facility] Stop: 04/17/19 08:59 Last Admin: 03/20/19 07:37 Dose: 40 mg Documented by: [id number] Admin: 03/19/19 08:41 Dose: 40 mg Documented by: [id number] Admin: 03/18/19 09:10 Dose: 40 mg Documented by: [id number] Potassium Chloride (Klor-Con M20) 20 meq PO [facility] Stop: 04/19/19 10:29 Last Admin: 03/20/19 11:53 Dose: 20 meq Documented by: [id number] Rosuvastatin Calcium (Crestor) 20 mg PO [facility] Stop: 04/17/19 08:59 Last Admin: 03/20/19 07:38 Dose: 20 mg Documented by: [id number] Admin: 03/19/19 08:41 Dose: 20 mg Documented by: [id number] Admin: 03/18/19 09:10 Dose: 20 mg Documented by: [id number] Sertraline HCl (Zoloft) 50 mg PO [facility] Stop: 04/17/19 08:59 Last Admin: 03/20/19 07:37 Dose: 50 mg Documented by: [id number] Admin: 03/19/19 08:41 Dose: 50 mg Documented by: [id number] Admin: 03/18/19 09:10 Dose: 50 mg Documented by: [id number] Torsemide (Demadex) 80 mg PO [facility] Stop: 04/19/19 10:44 Last Admin: 03/20/19 11:54 Dose: 80 mg Documented by: [id number] Medical Decision Making Differential Diagnosis Differential diagnosis: Etiologies such as viral syndrome, otitis, pharyngitis, pneumonia, influenza, meningitis, urinary tract infection, septic arthritis, soft tissue infectious process, intra-abdominal process, sepsis, bacteremia, as well as others were entertained. Medical Records Attestation: I reviewed the patient's medical records. Home Medications Current Medication List: was personally reviewed by me Laboratory Data Attestation: I reviewed the patient's lab results. Result diagrams: 03/20/19 07:04 03/20/19 07:04 Lab Results 03/17/19 03/17/19 03/17/19 Range/Units 18:20 18:20 18:20 WBC 9.32 (4.8-10.8) K/uL RBC 3.28 L (4.7-6.1) M/uL Hgb 9.3 L (14.0-18.0) g/dL Hct 29.7 L (42-52) % MCV 90.5 (80-100) fL MCH 28.4 (25-34) pg MCHC 31.3 L (32-36) g/dL RDW Std Deviation 51.4 H (36.4-46.3) fL RDW Coeff of Dung 15.4 H (11.5-14.5) % Plt Count 201 (130-400) K/uL MPV 9.9 (7.4-10.4) fL Immature Gran % (Auto) 0.1 % Neut % (Auto) 68.7 % Lymph % (Auto) 7.9 % Anderson % (Auto) 18.3 % Eos % (Auto) 4.5 % Baso % (Auto) 0.5 % Immature Gran # (Auto) 0.01 (0.00-0.02) K/uL Neut # (Auto) 6.39 (1.4-6.5) K/uL Lymph # (Auto) 0.74 L (1.2-3.4) K/uL Anderson # (Auto) 1.71 H (0.11-0.59) K/uL Eos # (Auto) 0.42 (0-0.5) K/uL Baso # (Auto) 0.05 (0-0.2) K/uL PT 49.5 H (9.0-12.0) Seconds INR 5.5 H (0.9-1.1) APTT 62.4 H* (21.0-31.0) Seconds PTT Ratio 2.3 ABG pH (7.35-7.45) ABG pCO2 (35-46) mmHg ABG pO2 (80-95) mm/Hg ABG HCO3 (19-24) mmol/L ABG O2 Saturation (90-95) % ABG Base Excess (-9-1.8) mEq/L John Test (Pos) Barometric Pressure mm/Hg Oxygen Given Sodium 135 L (136-145) mmol/L Potassium 3.8 (3.5-5.1) mmol/L Chloride 97 L (98-107) mmol/L Carbon Dioxide 31 (21-32) mmol/L Anion Gap 7.0 (3-11) BUN 70 H (7-18) mg/dl Creatinine 2.78 H (0.6-1.4) mg/dl Est Cr Clr Drug Dosing 21.8 ml/min Est GFR ( Amer) 24.0 Est GFR (Non-Af Amer) 20.7 BUN/Creatinine Ratio 25.1 H (10-20) Glucose 65 L (70-99) mg/dl POC Glucose (70-99) Lactate (0.4-2.0) mmol/L Calcium 10.3 H (8.5-10.1) mg/dl Magnesium (1.8-2.4) mg/dl Total Bilirubin 0.5 (0.2-1) mg/dl Direct Bilirubin (0-0.2) mg/dl AST 30 (15-37) U/L ALT 25 (12-78) U/L Alkaline Phosphatase 126 H (45-117) U/L Ammonia (11-32) umol/L Troponin I 0.035 (0-0.045) ng/ml Total Protein 8.6 H (6.4-8.2) gm/dl Albumin 3.8 (3.4-5.0) gm/dl Globulin 4.8 H (2.5-4.0) gm/dl Albumin/Globulin Ratio 0.8 L (0.9-2) TSH (0.300-4.500) uIu/ml Influenza Type A Ag (Neg) Influenza Type B Ag (Neg) Blood Type Antibody Screen 03/17/19 03/17/19 03/17/19 Range/Units 18:20 18:37 20:13 WBC (4.8-10.8) K/uL RBC (4.7-6.1) M/uL Hgb (14.0-18.0) g/dL Hct (42-52) % MCV (80-100) fL MCH (25-34) pg MCHC (32-36) g/dL RDW Std Deviation (36.4-46.3) fL RDW Coeff of Dung (11.5-14.5) % Plt Count (130-400) K/uL MPV (7.4-10.4) fL Immature Gran % (Auto) % Neut % (Auto) % Lymph % (Auto) % Anderson % (Auto) % Eos % (Auto) % Baso % (Auto) % Immature Gran # (Auto) (0.00-0.02) K/uL Neut # (Auto) (1.4-6.5) K/uL Lymph # (Auto) (1.2-3.4) K/uL Anderson # (Auto) (0.11-0.59) K/uL Eos # (Auto) (0-0.5) K/uL Baso # (Auto) (0-0.2) K/uL PT (9.0-12.0) Seconds INR (0.9-1.1) APTT (21.0-31.0) Seconds PTT Ratio ABG pH (7.35-7.45) ABG pCO2 (35-46) mmHg ABG pO2 (80-95) mm/Hg ABG HCO3 (19-24) mmol/L ABG O2 Saturation (90-95) % ABG Base Excess (-9-1.8) mEq/L John Test (Pos) Barometric Pressure mm/Hg Oxygen Given Sodium (136-145) mmol/L Potassium (3.5-5.1) mmol/L Chloride (98-107) mmol/L Carbon Dioxide (21-32) mmol/L Anion Gap (3-11) BUN (7-18) mg/dl Creatinine (0.6-1.4) mg/dl Est Cr Clr Drug Dosing ml/min Est GFR ( Amer) Est GFR (Non-Af Amer) BUN/Creatinine Ratio (10-20) Glucose (70-99) mg/dl POC Glucose (70-99) Lactate 1.1 (0.4-2.0) mmol/L Calcium (8.5-10.1) mg/dl Magnesium 2.3 (1.8-2.4) mg/dl Total Bilirubin 0.5 (0.2-1) mg/dl Direct Bilirubin 0.3 H (0-0.2) mg/dl AST 30 (15-37) U/L ALT 23 (12-78) U/L Alkaline Phosphatase 122 H (45-117) U/L Ammonia (11-32) umol/L Troponin I (0-0.045) ng/ml Total Protein 8.4 H (6.4-8.2) gm/dl Albumin 3.6 (3.4-5.0) gm/dl Globulin (2.5-4.0) gm/dl Albumin/Globulin Ratio (0.9-2) TSH 1.470 (0.300-4.500) uIu/ml Influenza Type A Ag Pos for Influ A A* (Neg) Influenza Type B Ag Neg for Influ B (Neg) Blood Type Antibody Screen 03/17/19 03/17/19 03/17/19 Range/Units 20:13 20:13 20:13 WBC (4.8-10.8) K/uL RBC (4.7-6.1) M/uL Hgb (14.0-18.0) g/dL Hct (42-52) % MCV (80-100) fL MCH (25-34) pg MCHC (32-36) g/dL RDW Std Deviation (36.4-46.3) fL RDW Coeff of Dung (11.5-14.5) % Plt Count (130-400) K/uL MPV (7.4-10.4) fL Immature Gran % (Auto) % Neut % (Auto) % Lymph % (Auto) % Anderson % (Auto) % Eos % (Auto) % Baso % (Auto) % Immature Gran # (Auto) (0.00-0.02) K/uL Neut # (Auto) (1.4-6.5) K/uL Lymph # (Auto) (1.2-3.4) K/uL Anderson # (Auto) (0.11-0.59) K/uL Eos # (Auto) (0-0.5) K/uL Baso # (Auto) (0-0.2) K/uL PT (9.0-12.0) Seconds INR (0.9-1.1) APTT (21.0-31.0) Seconds PTT Ratio ABG pH 7.38 (7.35-7.45) ABG pCO2 50 H (35-46) mmHg ABG pO2 93 (80-95) mm/Hg ABG HCO3 29 H (19-24) mmol/L ABG O2 Saturation 95.6 H (90-95) % ABG Base Excess 3.1 H (-9-1.8) mEq/L John Test POS (Pos) Barometric Pressure 720.5 mm/Hg Oxygen Given 2.5L O2 Sodium (136-145) mmol/L Potassium (3.5-5.1) mmol/L Chloride (98-107) mmol/L Carbon Dioxide (21-32) mmol/L Anion Gap (3-11) BUN (7-18) mg/dl Creatinine (0.6-1.4) mg/dl Est Cr Clr Drug Dosing ml/min Est GFR ( Amer) Est GFR (Non-Af Amer) BUN/Creatinine Ratio (10-20) Glucose (70-99) mg/dl POC Glucose (70-99) Lactate (0.4-2.0) mmol/L Calcium (8.5-10.1) mg/dl Magnesium (1.8-2.4) mg/dl Total Bilirubin (0.2-1) mg/dl Direct Bilirubin (0-0.2) mg/dl AST (15-37) U/L ALT (12-78) U/L Alkaline Phosphatase (45-117) U/L Ammonia 31.3 (11-32) umol/L Troponin I (0-0.045) ng/ml Total Protein (6.4-8.2) gm/dl Albumin (3.4-5.0) gm/dl Globulin (2.5-4.0) gm/dl Albumin/Globulin Ratio (0.9-2) TSH (0.300-4.500) uIu/ml Influenza Type A Ag (Neg) Influenza Type B Ag (Neg) Blood Type A Positive Antibody Screen NEGATIVE 03/17/19 03/18/19 03/18/19 Range/Units 21:30 06:26 06:26 WBC 6.84 (4.8-10.8) K/uL RBC 3.02 L (4.7-6.1) M/uL Hgb 8.5 L (14.0-18.0) g/dL Hct 27.4 L (42-52) % MCV 90.7 (80-100) fL MCH 28.1 (25-34) pg MCHC 31.0 L (32-36) g/dL RDW Std Deviation 50.8 H (36.4-46.3) fL RDW Coeff of Dung 15.4 H (11.5-14.5) % Plt Count 182 (130-400) K/uL MPV 9.5 (7.4-10.4) fL Immature Gran % (Auto) 0.3 % Neut % (Auto) 92.4 % Lymph % (Auto) 4.4 % Anderson % (Auto) 2.8 % Eos % (Auto) 0.0 % Baso % (Auto) 0.1 % Immature Gran # (Auto) 0.02 (0.00-0.02) K/uL Neut # (Auto) 6.32 (1.4-6.5) K/uL Lymph # (Auto) 0.30 L (1.2-3.4) K/uL Anderson # (Auto) 0.19 (0.11-0.59) K/uL Eos # (Auto) 0.00 (0-0.5) K/uL Baso # (Auto) 0.01 (0-0.2) K/uL PT 50.8 H (9.0-12.0) Seconds INR 5.6 H* (0.9-1.1) APTT (21.0-31.0) Seconds PTT Ratio ABG pH (7.35-7.45) ABG pCO2 (35-46) mmHg ABG pO2 (80-95) mm/Hg ABG HCO3 (19-24) mmol/L ABG O2 Saturation (90-95) % ABG Base Excess (-9-1.8) mEq/L John Test (Pos) Barometric Pressure mm/Hg Oxygen Given Sodium (136-145) mmol/L Potassium (3.5-5.1) mmol/L Chloride (98-107) mmol/L Carbon Dioxide (21-32) mmol/L Anion Gap (3-11) BUN (7-18) mg/dl Creatinine (0.6-1.4) mg/dl Est Cr Clr Drug Dosing ml/min Est GFR ( Amer) Est GFR (Non-Af Amer) BUN/Creatinine Ratio (10-20) Glucose (70-99) mg/dl POC Glucose 161 H (70-99) Lactate (0.4-2.0) mmol/L Calcium (8.5-10.1) mg/dl Magnesium (1.8-2.4) mg/dl Total Bilirubin (0.2-1) mg/dl Direct Bilirubin (0-0.2) mg/dl AST (15-37) U/L ALT (12-78) U/L Alkaline Phosphatase (45-117) U/L Ammonia (11-32) umol/L Troponin I (0-0.045) ng/ml Total Protein (6.4-8.2) gm/dl Albumin (3.4-5.0) gm/dl Globulin (2.5-4.0) gm/dl Albumin/Globulin Ratio (0.9-2) TSH (0.300-4.500) uIu/ml Influenza Type A Ag (Neg) Influenza Type B Ag (Neg) Blood Type Antibody Screen 03/18/19 03/18/19 03/18/19 Range/Units 06:26 06:26 08:04 WBC (4.8-10.8) K/uL RBC (4.7-6.1) M/uL Hgb (14.0-18.0) g/dL Hct (42-52) % MCV (80-100) fL MCH (25-34) pg MCHC (32-36) g/dL RDW Std Deviation (36.4-46.3) fL RDW Coeff of Dung (11.5-14.5) % Plt Count (130-400) K/uL MPV (7.4-10.4) fL Immature Gran % (Auto) % Neut % (Auto) % Lymph % (Auto) % Anderson % (Auto) % Eos % (Auto) % Baso % (Auto) % Immature Gran # (Auto) (0.00-0.02) K/uL Neut # (Auto) (1.4-6.5) K/uL Lymph # (Auto) (1.2-3.4) K/uL Anderson # (Auto) (0.11-0.59) K/uL Eos # (Auto) (0-0.5) K/uL Baso # (Auto) (0-0.2) K/uL PT (9.0-12.0) Seconds INR (0.9-1.1) APTT (21.0-31.0) Seconds PTT Ratio ABG pH (7.35-7.45) ABG pCO2 (35-46) mmHg ABG pO2 (80-95) mm/Hg ABG HCO3 (19-24) mmol/L ABG O2 Saturation (90-95) % ABG Base Excess (-9-1.8) mEq/L John Test (Pos) Barometric Pressure mm/Hg Oxygen Given Sodium 134 L (136-145) mmol/L Potassium 4.2 (3.5-5.1) mmol/L Chloride 98 (98-107) mmol/L Carbon Dioxide 28 (21-32) mmol/L Anion Gap 8.0 (3-11) BUN 70 H (7-18) mg/dl Creatinine 2.67 H (0.6-1.4) mg/dl Est Cr Clr Drug Dosing 22.2 ml/min Est GFR ( Amer) 25.2 Est GFR (Non-Af Amer) 21.7 BUN/Creatinine Ratio 26.0 H (10-20) Glucose 162 H (70-99) mg/dl POC Glucose 169 H (70-99) Lactate (0.4-2.0) mmol/L Calcium 9.5 (8.5-10.1) mg/dl Magnesium 2.3 (1.8-2.4) mg/dl Total Bilirubin (0.2-1) mg/dl Direct Bilirubin (0-0.2) mg/dl AST (15-37) U/L ALT (12-78) U/L Alkaline Phosphatase (45-117) U/L Ammonia (11-32) umol/L Troponin I (0-0.045) ng/ml Total Protein (6.4-8.2) gm/dl Albumin (3.4-5.0) gm/dl Globulin (2.5-4.0) gm/dl Albumin/Globulin Ratio (0.9-2) TSH (0.300-4.500) uIu/ml Influenza Type A Ag (Neg) Influenza Type B Ag (Neg) Blood Type Antibody Screen 03/18/19 03/18/19 03/18/19 Range/Units 11:45 17:12 20:44 WBC (4.8-10.8) K/uL RBC (4.7-6.1) M/uL Hgb (14.0-18.0) g/dL Hct (42-52) % MCV (80-100) fL MCH (25-34) pg MCHC (32-36) g/dL RDW Std Deviation (36.4-46.3) fL RDW Coeff of Dung (11.5-14.5) % Plt Count (130-400) K/uL MPV (7.4-10.4) fL Immature Gran % (Auto) % Neut % (Auto) % Lymph % (Auto) % Anderson % (Auto) % Eos % (Auto) % Baso % (Auto) % Immature Gran # (Auto) (0.00-0.02) K/uL Neut # (Auto) (1.4-6.5) K/uL Lymph # (Auto) (1.2-3.4) K/uL Anderson # (Auto) (0.11-0.59) K/uL Eos # (Auto) (0-0.5) K/uL Baso # (Auto) (0-0.2) K/uL PT (9.0-12.0) Seconds INR (0.9-1.1) APTT (21.0-31.0) Seconds PTT Ratio ABG pH (7.35-7.45) ABG pCO2 (35-46) mmHg ABG pO2 (80-95) mm/Hg ABG HCO3 (19-24) mmol/L ABG O2 Saturation (90-95) % ABG Base Excess (-9-1.8) mEq/L John Test (Pos) Barometric Pressure mm/Hg Oxygen Given Sodium (136-145) mmol/L Potassium (3.5-5.1) mmol/L Chloride (98-107) mmol/L Carbon Dioxide (21-32) mmol/L Anion Gap (3-11) BUN (7-18) mg/dl Creatinine (0.6-1.4) mg/dl Est Cr Clr Drug Dosing ml/min Est GFR ( Amer) Est GFR (Non-Af Amer) BUN/Creatinine Ratio (10-20) Glucose (70-99) mg/dl POC Glucose 203 H 137 H 149 H (70-99) Lactate (0.4-2.0) mmol/L Calcium (8.5-10.1) mg/dl Magnesium (1.8-2.4) mg/dl Total Bilirubin (0.2-1) mg/dl Direct Bilirubin (0-0.2) mg/dl AST (15-37) U/L ALT (12-78) U/L Alkaline Phosphatase (45-117) U/L Ammonia (11-32) umol/L Troponin I (0-0.045) ng/ml Total Protein (6.4-8.2) gm/dl Albumin (3.4-5.0) gm/dl Globulin (2.5-4.0) gm/dl Albumin/Globulin Ratio (0.9-2) TSH (0.300-4.500) uIu/ml Influenza Type A Ag (Neg) Influenza Type B Ag (Neg) Blood Type Antibody Screen 03/19/19 03/19/19 03/19/19 Range/Units 03:46 03:46 03:46 WBC 9.24 (4.8-10.8) K/uL RBC 3.08 L (4.7-6.1) M/uL Hgb 9.0 L (14.0-18.0) g/dL Hct 28.2 L (42-52) % MCV 91.6 (80-100) fL MCH 29.2 (25-34) pg MCHC 31.9 L (32-36) g/dL RDW Std Deviation 52.0 H (36.4-46.3) fL RDW Coeff of Dung 15.5 H (11.5-14.5) % Plt Count 222 (130-400) K/uL MPV 10.0 (7.4-10.4) fL Immature Gran % (Auto) 0.4 % Neut % (Auto) 72.9 % Lymph % (Auto) 8.3 % Anderson % (Auto) 14.4 % Eos % (Auto) 3.7 % Baso % (Auto) 0.3 % Immature Gran # (Auto) 0.04 H (0.00-0.02) K/uL Neut # (Auto) 6.73 H (1.4-6.5) K/uL Lymph # (Auto) 0.77 L (1.2-3.4) K/uL Anderson # (Auto) 1.33 H (0.11-0.59) K/uL Eos # (Auto) 0.34 (0-0.5) K/uL Baso # (Auto) 0.03 (0-0.2) K/uL PT 29.6 H (9.0-12.0) Seconds INR 3.1 H (0.9-1.1) APTT (21.0-31.0) Seconds PTT Ratio ABG pH (7.35-7.45) ABG pCO2 (35-46) mmHg ABG pO2 (80-95) mm/Hg ABG HCO3 (19-24) mmol/L ABG O2 Saturation (90-95) % ABG Base Excess (-9-1.8) mEq/L John Test (Pos) Barometric Pressure mm/Hg Oxygen Given Sodium 133 L (136-145) mmol/L Potassium 4.2 (3.5-5.1) mmol/L Chloride 98 (98-107) mmol/L Carbon Dioxide 30 (21-32) mmol/L Anion Gap 5.0 (3-11) BUN 71 H (7-18) mg/dl Creatinine 2.69 H (0.6-1.4) mg/dl Est Cr Clr Drug Dosing 22.1 ml/min Est GFR ( Amer) 25.0 Est GFR (Non-Af Amer) 21.5 BUN/Creatinine Ratio 26.5 H (10-20) Glucose 156 H (70-99) mg/dl POC Glucose (70-99) Lactate (0.4-2.0) mmol/L Calcium 9.7 (8.5-10.1) mg/dl Magnesium 2.3 (1.8-2.4) mg/dl Total Bilirubin (0.2-1) mg/dl Direct Bilirubin (0-0.2) mg/dl AST (15-37) U/L ALT (12-78) U/L Alkaline Phosphatase (45-117) U/L Ammonia (11-32) umol/L Troponin I (0-0.045) ng/ml Total Protein (6.4-8.2) gm/dl Albumin (3.4-5.0) gm/dl Globulin (2.5-4.0) gm/dl Albumin/Globulin Ratio (0.9-2) TSH (0.300-4.500) uIu/ml Influenza Type A Ag (Neg) Influenza Type B Ag (Neg) Blood Type Antibody Screen 03/19/19 03/19/19 03/19/19 Range/Units 07:57 11:48 16:57 WBC (4.8-10.8) K/uL RBC (4.7-6.1) M/uL Hgb (14.0-18.0) g/dL Hct (42-52) % MCV (80-100) fL MCH (25-34) pg MCHC (32-36) g/dL RDW Std Deviation (36.4-46.3) fL RDW Coeff of Dung (11.5-14.5) % Plt Count (130-400) K/uL MPV (7.4-10.4) fL Immature Gran % (Auto) % Neut % (Auto) % Lymph % (Auto) % Anderson % (Auto) % Eos % (Auto) % Baso % (Auto) % Immature Gran # (Auto) (0.00-0.02) K/uL Neut # (Auto) (1.4-6.5) K/uL Lymph # (Auto) (1.2-3.4) K/uL Anderson # (Auto) (0.11-0.59) K/uL Eos # (Auto) (0-0.5) K/uL Baso # (Auto) (0-0.2) K/uL PT (9.0-12.0) Seconds INR (0.9-1.1) APTT (21.0-31.0) Seconds PTT Ratio ABG pH (7.35-7.45) ABG pCO2 (35-46) mmHg ABG pO2 (80-95) mm/Hg ABG HCO3 (19-24) mmol/L ABG O2 Saturation (90-95) % ABG Base Excess (-9-1.8) mEq/L John Test (Pos) Barometric Pressure mm/Hg Oxygen Given Sodium (136-145) mmol/L Potassium (3.5-5.1) mmol/L Chloride (98-107) mmol/L Carbon Dioxide (21-32) mmol/L Anion Gap (3-11) BUN (7-18) mg/dl Creatinine (0.6-1.4) mg/dl Est Cr Clr Drug Dosing ml/min Est GFR ( Amer) Est GFR (Non-Af Amer) BUN/Creatinine Ratio (10-20) Glucose (70-99) mg/dl POC Glucose 145 H 125 H 109 H (70-99) Lactate (0.4-2.0) mmol/L Calcium (8.5-10.1) mg/dl Magnesium (1.8-2.4) mg/dl Total Bilirubin (0.2-1) mg/dl Direct Bilirubin (0-0.2) mg/dl AST (15-37) U/L ALT (12-78) U/L Alkaline Phosphatase (45-117) U/L Ammonia (11-32) umol/L Troponin I (0-0.045) ng/ml Total Protein (6.4-8.2) gm/dl Albumin (3.4-5.0) gm/dl Globulin (2.5-4.0) gm/dl Albumin/Globulin Ratio (0.9-2) TSH (0.300-4.500) uIu/ml Influenza Type A Ag (Neg) Influenza Type B Ag (Neg) Blood Type Antibody Screen 03/19/19 03/20/19 03/20/19 Range/Units 20:21 07:04 07:04 WBC (4.8-10.8) K/uL RBC (4.7-6.1) M/uL Hgb 8.8 L (14.0-18.0) g/dL Hct 28.1 L (42-52) % MCV (80-100) fL MCH (25-34) pg MCHC (32-36) g/dL RDW Std Deviation (36.4-46.3) fL RDW Coeff of Dung (11.5-14.5) % Plt Count (130-400) K/uL MPV (7.4-10.4) fL Immature Gran % (Auto) % Neut % (Auto) % Lymph % (Auto) % Anderson % (Auto) % Eos % (Auto) % Baso % (Auto) % Immature Gran # (Auto) (0.00-0.02) K/uL Neut # (Auto) (1.4-6.5) K/uL Lymph # (Auto) (1.2-3.4) K/uL Anderson # (Auto) (0.11-0.59) K/uL Eos # (Auto) (0-0.5) K/uL Baso # (Auto) (0-0.2) K/uL PT (9.0-12.0) Seconds INR (0.9-1.1) APTT (21.0-31.0) Seconds PTT Ratio ABG pH (7.35-7.45) ABG pCO2 (35-46) mmHg ABG pO2 (80-95) mm/Hg ABG HCO3 (19-24) mmol/L ABG O2 Saturation (90-95) % ABG Base Excess (-9-1.8) mEq/L John Test (Pos) Barometric Pressure mm/Hg Oxygen Given Sodium 137 (136-145) mmol/L Potassium 4.5 (3.5-5.1) mmol/L Chloride 102 (98-107) mmol/L Carbon Dioxide 28 (21-32) mmol/L Anion Gap 8.0 (3-11) BUN 55 H (7-18) mg/dl Creatinine 2.10 H D (0.6-1.4) mg/dl Est Cr Clr Drug Dosing 29.0 ml/min Est GFR ( Amer) 33.7 Est GFR (Non-Af Amer) 29.1 BUN/Creatinine Ratio 26.3 H (10-20) Glucose 94 (70-99) mg/dl POC Glucose 127 H (70-99) Lactate (0.4-2.0) mmol/L Calcium 10.1 (8.5-10.1) mg/dl Magnesium (1.8-2.4) mg/dl Total Bilirubin (0.2-1) mg/dl Direct Bilirubin (0-0.2) mg/dl AST (15-37) U/L ALT (12-78) U/L Alkaline Phosphatase (45-117) U/L Ammonia (11-32) umol/L Troponin I (0-0.045) ng/ml Total Protein (6.4-8.2) gm/dl Albumin (3.4-5.0) gm/dl Globulin (2.5-4.0) gm/dl Albumin/Globulin Ratio (0.9-2) TSH (0.300-4.500) uIu/ml Influenza Type A Ag (Neg) Influenza Type B Ag (Neg) Blood Type Antibody Screen 03/20/19 03/20/19 03/20/19 Range/Units 07:04 08:04 11:50 WBC (4.8-10.8) K/uL RBC (4.7-6.1) M/uL Hgb (14.0-18.0) g/dL Hct (42-52) % MCV (80-100) fL MCH (25-34) pg MCHC (32-36) g/dL RDW Std Deviation (36.4-46.3) fL RDW Coeff of Dung (11.5-14.5) % Plt Count (130-400) K/uL MPV (7.4-10.4) fL Immature Gran % (Auto) % Neut % (Auto) % Lymph % (Auto) % Anderson % (Auto) % Eos % (Auto) % Baso % (Auto) % Immature Gran # (Auto) (0.00-0.02) K/uL Neut # (Auto) (1.4-6.5) K/uL Lymph # (Auto) (1.2-3.4) K/uL Anderson # (Auto) (0.11-0.59) K/uL Eos # (Auto) (0-0.5) K/uL Baso # (Auto) (0-0.2) K/uL PT 17.2 H (9.0-12.0) Seconds INR 1.7 H (0.9-1.1) APTT (21.0-31.0) Seconds PTT Ratio ABG pH (7.35-7.45) ABG pCO2 (35-46) mmHg ABG pO2 (80-95) mm/Hg ABG HCO3 (19-24) mmol/L ABG O2 Saturation (90-95) % ABG Base Excess (-9-1.8) mEq/L John Test (Pos) Barometric Pressure mm/Hg Oxygen Given Sodium (136-145) mmol/L Potassium (3.5-5.1) mmol/L Chloride (98-107) mmol/L Carbon Dioxide (21-32) mmol/L Anion Gap (3-11) BUN (7-18) mg/dl Creatinine (0.6-1.4) mg/dl Est Cr Clr Drug Dosing ml/min Est GFR ( Amer) Est GFR (Non-Af Amer) BUN/Creatinine Ratio (10-20) Glucose (70-99) mg/dl POC Glucose 107 H 167 H (70-99) Lactate (0.4-2.0) mmol/L Calcium (8.5-10.1) mg/dl Magnesium (1.8-2.4) mg/dl Total Bilirubin (0.2-1) mg/dl Direct Bilirubin (0-0.2) mg/dl AST (15-37) U/L ALT (12-78) U/L Alkaline Phosphatase (45-117) U/L Ammonia (11-32) umol/L Troponin I (0-0.045) ng/ml Total Protein (6.4-8.2) gm/dl Albumin (3.4-5.0) gm/dl Globulin (2.5-4.0) gm/dl Albumin/Globulin Ratio (0.9-2) TSH (0.300-4.500) uIu/ml Influenza Type A Ag (Neg) Influenza Type B Ag (Neg) Blood Type Antibody Screen Imaging Data Radiologist's Impression: Radiology results as stated below per my review and the radiologist's interpretation: XR chest 1V portable HISTORY: 78 years-old Male fever acute fever COMPARISON: Chest radiograph 02/02/2018 TECHNIQUE: Portable AP view of the chest FINDINGS: Cardiac silhouette is enlarged, unchanged. Mild right hemidiaphragmatic elevation is unchanged. There is mild pulmonary vascular congestion. Subsegmental bibasilar opacities are noted with mild interstitial coarsening. Trace right pleural effusion. No pneumothorax. Ill-defined 11 mm nodular opacity about the lateral right midlung. IMPRESSION: 1. Cardiomegaly with suggestion of mild pulmonary edema. 2. Unchanged mild right hemidiaphragmatic elevation with right basilar opacities and trace right pleural effusion. 3. Ill-defined 11 mm nodular density of the lateral right midlung suggestive of composite density artifact versus pulmonary nodule. The above report was generated using voice recognition software. It may contain grammatical, syntax or spelling errors. Electronically signed by: Samy Lara M.D. 03/17/2019 6:[address] head/brain wo con CLINICAL HISTORY: 78 years-old Male with fever, AMS. Acute fever with altered mental status TECHNIQUE: Multiple axial CT images of the head were obtained without contrast. A dose lowering technique was utilized adhering to the principles of ALARA. CT DOSE: 767.83 mGy.cm COMPARISON: Head CT 02/02/2019. FINDINGS: No acute intracranial hemorrhage, midline shift, intracranial mass, hydr ocephalus, territorial ischemia or abnormal extra-axial collection. Age-related involutional changes. Patchy white matter hypodensities suggest chronic microvascular ischemic changes. Encephalomalacia about the posterior left frontal lobe suggests remote infarction, unchanged. Study is motion degraded which limits the exam. Cerebral vascular calcifications noted. Unchanged remote lacunar infarctions about the right basal ganglia. The calvarium is intact. Bilateral cataract repair. The paranasal sinuses, mastoid air cells, and middle ear cavities are clear. IMPRESSION: Motion degraded exam without acute intracranial abnormality identified. The above report was generated using voice recognition software. It may contain grammatical, syntax or spelling errors. Electronically signed by: Samy Lara M.D. 03/17/2019 7:54 PM Blood Pressure Blood Pressure Findings: Normal blood pressure Blood Pressure Disposition: did not require urgent referral MDM Narrative This pt was evaluated and appeared to be in no distress. IV access was obtained and lab work was drawn. 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 Lab work is reassuring with exception of + influenza A. Pt did have an O2 requirement in the ED, CXR is significant for mild congestion, some chronic right basilar opacities and pl effusion, no acute infiltrate. Pt was stable on 2 L n/c. He was bonny smart tx. Head CT was performed and is negative for acute process. He was d/w Dr Rose for further management. Pt was informed of the findings and agrees with the plan. Impression & Plan Influenza A, Hypoxia, Mental status alteration Discharge Plan Visit Data *Final* Discharge Date/Time: 03/17/19 21:47 Chief Complaint: Congestion Stated Complaint: CHEST CONGESTION, LOW O2, NOT EATING, LETHARGIC ED Provider: Staci Hyman Discharge Problem: Influenza A, Hypoxia, Mental status alteration Patient Disposition: Admitted As Inpatient Discharge Instructions Interventions: ED Discharge Assessment Last Done: 03/17/19 21:47 The scribe's documentation has been prepared under my direction and personally reviewed by me in its entirety. I confirm that the note above accurately reflects all work, treatment, procedures, and medical decision making performed by me.
[2019-03-17 20:50] LABS: Albumin Level 3.6 gm/dl (3.4-5.0); Bilirubin Direct 0.3 mg/dl (0-0.2); Bilirubin,Total 0.5 mg/dl (0.2-1); Magnesium 2.3 mg/dl (1.8-2.4); Total Protein 8.4 gm/dl (6.4-8.2)
[2019-03-17] MEDS ORDERED: DOXYCYCLINE HYCLATE 100 MG in DEXTROSE 5% 100 ML IV STA (21:01)
[2019-03-17] MEDS ORDERED: ACETAMINOPHEN 325 MG TAB PO PRN (21:07)
[2019-03-17] MEDS ORDERED: PHYTONADIONE 5 MG TAB PO STA (21:08)
[2019-03-17] MEDS ORDERED: GLUCOSE 40% GEL 15 GM TUBE PO PRN (21:08)
[2019-03-17] MEDS ORDERED: GLUCAGON FOR INJ 1 MG VIAL SQ PRN (21:08)
[2019-03-17] MEDS ORDERED: CARBOHYDRATES FOR HYPOGLYCEMIA PO PRN (21:08)
[2019-03-17] MEDS ORDERED: DEXTROSE 50% 50 ML SYRINGE IV PRN (21:08)
[2019-03-17] MEDS ORDERED: GLUCOSE 10 TABS/TUBE PO PRN (21:08)
[2019-03-17] MEDS ORDERED: ONDANSETRON INJ 2 MG/ML 2 ML VIAL IV PRN (21:14)
--- NOTE | 2019-03-17 21:24 | History & Physical Report ---
Date of Service March 17, 2019 Assessment & Plan (1) Influenza A: (2) Acute respiratory failure with hypoxia: Please refer to Dr. Thomas's addendum for assessment and plan. History of Present Illness Chief Complaint: Cough, congestion, shortness of breath Primary Care Provider: Shade Thomas MD 78-year-old male who presents to the ED with cough, congestion, shortness of breath. Symptoms began about 4 days ago. Of note, patient was exposed to his grandchildren who tested positive for influenza A. Patient was seen by his PCP 2 days ago for these complaints and was given a prescription for azithromycin. Despite taking this medication, patient symptoms continue to get worse. Cough has been moist however nonproductive. Daughter is at the bedside who reports that her father has been lethargic over the past few days. He has also had a very poor appetite. One episode of nausea and dry heaves. Patient denies abdominal pain and diarrhea. Has also been running fevers as high as 102. No chills or rigors. Patient denies chest pain. No lightheadedness, dizziness, diaphoresis, syncopal events. Patient denies any urinary symptoms. In the ED, patient tested positive for influenza A. He was hypoxic on room air at 87% which improved with oxygen 2 L via nasal cannula. Patient was given IVF, Tamiflu, nebulizer treatment. Allergies Allergy/AdvReac Type Severity Reaction Status Date / Time fentanyl Allergy Severe Decreased Verified 03/17/19 18:20 oxygen saturation, low RR, unresponsive midazolam Allergy Severe Decreased Verified 03/17/19 18:20 oxygen saturation, low RR, unresponsive. codeine Allergy Unknown GI SYMPTOMS Verified 03/17/19 18:20 promethazine [From Phenergan] AdvReac Severe severe Verified 03/17/19 18:20 fatigue BRIANA Inhibitors AdvReac Mild cough, Verified 03/17/19 18:20 cefuroxime AdvReac Mild GI SYMPTOMS Verified 03/17/19 18:20 Home Medications Home Medications Medication Instructions Recorded Confirmed Type clopidogrel [Plavix] 75 mg PO QAM 08/16/18 03/17/19 History coenzyme Q10 [Co Q-10] 10 mg PO QAM 08/16/18 03/17/19 History cyanocobalamin (vitamin B-12) 1,000 mcg PO QAM 08/16/18 03/17/19 History ferrous gluconate 324 mg PO QAM 08/16/18 03/17/19 History multivitamin [Multiple Vitamins] 1 tab PO QAM 08/16/18 03/17/19 History nitroglycerin [Nitrostat] 0.4 mg SUBLINGUAL UD PRN 08/16/18 03/17/19 History pantoprazole [Protonix] 40 mg PO QAM 08/16/18 03/17/19 History rosuvastatin [Crestor] 20 mg PO QAM 08/16/18 03/17/19 History sertraline 50 mg PO QAM 08/16/18 03/17/19 History glipizide 2.5 mg PO BID #30 tab 02/01/19 03/17/19 Rx torsemide 80 mg PO QAM 30 Days #120 tab 02/02/19 03/17/19 Rx warfarin 5 mg PO SUTUTH 02/02/19 03/17/19 History potassium chloride [Klor-Con M20] 20 meq PO QAM #30 tab 02/03/19 03/17/19 Rx azithromycin 250 mg PO UD 03/17/19 03/17/19 History dextromethorphan-guaifenesin 1 tab PO Q12H PRN 03/17/19 03/17/19 History [Mucinex DM] metoprolol succinate 100 mg PO BID 03/17/19 03/17/19 History testosterone 1 packet TRANSDERMAL DAILY 03/17/19 03/17/19 History warfarin 7.5 mg PO MOWEFRSA 03/17/19 03/17/19 History Past Med/Surg History Medical History CKD (chronic kidney disease), stage IV (Chronic) Cirrhosis of liver (Chronic) Anticoagulant long-term use (Chronic) Ischemic cardiomyopathy (Chronic) DMII (diabetes mellitus, type 2) (Chronic) CAD (coronary artery disease) (Chronic) Pericardial effusion (Resolved) Anemia in chronic kidney disease (Chronic) SBP (spontaneous bacterial peritonitis) (Resolved) Depression (Chronic) HTN (hypertension) (Chronic) History of renal carcinoma (Chronic) Chronic systolic heart failure (Chronic) Ascites (Resolved) CAD (coronary artery disease) (Chronic) "2005 - PCI to LAD cath 2011 - no significant obstructive disease" CVA (cerebral vascular accident) (Chronic) Squamous cell carcinoma (Chronic) Basal cell carcinoma (Chronic) V tach (Chronic) "s/p AICD placement" Gross hematuria (Resolved) Surgical History History of prior ablation treatment (Chronic) CT guided tissue ablation R kidney S/P ICD (internal cardiac defibrillator) procedure (Chronic) History of cataract surgery (Chronic) Family History Father Coronary heart disease Mother Coronary heart disease Social History Preferred Language: [place] Communication Ability: Effective Visual Impairment: No Limitations 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 Beliefs That Will Affect Care: None marital status: Current Living Situation: Spouse Other Information That Helps Us Care for You: No Feels Safe at Home: Yes Safety Concerns: Feels Safe At This Time Smoking Status: Former smoker Tobacco Type: cigarettes Do You Dip or Chew Tobacco: No Second Hand Exposure: No Hx Alcohol Use: No Hx Substance Use: No Review of Systems Review of Systems: ROS per HPI, all other systems reviewed and negative Physical Exam Constitutional: WD/WN, vitals as above Eyes: PERRL, conjunctivae normal, anicteric sclerae ENMT: external ear and nose normal, oropharynx normal Respiratory: no respiratory distress and + not able to speak in complete sentence (Mild conversational dyspnea noted) Auscultation: + diminished lung sounds and + rhonchi (Scattered, more pronounced in the upper and anterior lung garcia) Cardiovascular: Rate/Rhythm: regular rate and + irregularly irregular Vessels: normal peripheral pulses Extremities: no edema Gastrointestinal (Abdomen): normal bowel sounds, soft, nontender, no hepatosplenomegaly Musculoskeletal: no cyanosis or clubbing, extremities motor strength 5/5 Skin: no rashes, warm and dry Neurologic: PERRL, EOMI, accommodation nl, no face palsy, no dysarthria Psychiatric: A+Ox3, euthymic affect (Appears tired) Results & Data Vital Signs (Past 12 Hours) Vital Signs Temp Pulse Pulse Resp BP Pulse Ox 03/17/19 19:27 95 H 20 97 03/17/19 17:21 36.7 C 99 H 20 102/60 92 Laboratory Results Laboratory Last Values WBC 9.32 K/uL (4.8-10.8) 03/17/19 18:20 RBC 3.28 M/uL (4.7-6.1) L 03/17/19 18:20 Hgb 9.3 g/dL (14.0-18.0) L 03/17/19 18:20 Hct 29.7 % (42-52) L 03/17/19 18:20 MCV 90.5 fL (80-100) 03/17/19 18:20 MCH 28.4 pg (25-34) 03/17/19 18:20 MCHC 31.3 g/dL (32-36) L 03/17/19 18:20 RDW Std Deviation 51.4 fL (36.4-46.3) H 03/17/19 18:20 RDW Coeff of Dung 15.4 % (11.5-14.5) H 03/17/19 18:20 Plt Count 201 K/uL (130-400) 03/17/19 18:20 MPV 9.9 fL (7.4-10.4) 03/17/19 18:20 Immature Gran % (Auto) 0.1 % 03/17/19 18:20 Neut % (Auto) 68.7 % 03/17/19 18:20 Lymph % (Auto) 7.9 % 03/17/19 18:20 [place] % (Auto) 18.3 % 03/17/19 18:20 Eos % (Auto) 4.5 % 03/17/19 18:20 Baso % (Auto) 0.5 % 03/17/19 18:20 Immature Gran # (Auto) 0.01 K/uL (0.00-0.02) 03/17/19 18:20 Neut # (Auto) 6.39 K/uL (1.4-6.5) 03/17/19 18:20 Lymph # (Auto) 0.74 K/uL (1.2-3.4) L 03/17/19 18:20 Weakley # (Auto) 1.71 K/uL (0.11-0.59) H 03/17/19 18:20 Eos # (Auto) 0.42 K/uL (0-0.5) 03/17/19 18:20 Baso # (Auto) 0.05 K/uL (0-0.2) 03/17/19 18:20 PT 49.5 Seconds (9.0-12.0) H 03/17/19 18:20 INR 5.5 (0.9-1.1) H 03/17/19 18:20 APTT 62.4 Seconds (21.0-31.0) H* 03/17/19 18:20 PTT Ratio 2.3 03/17/19 18:20 ABG pH 7.38 (7.35-7.45) 03/17/19 20:13 ABG pCO2 50 mmHg (35-46) H 03/17/19 20:13 ABG pO2 93 mm/Hg (80-95) 03/17/19 20:13 ABG HCO3 29 mmol/L (19-24) H 03/17/19 20:13 ABG O2 Saturation 95.6 % (90-95) H 03/17/19 20:13 ABG Base Excess 3.1 mEq/L (-9-1.8) H 03/17/19 20:13 John Test POS (Pos) 03/17/19 20:13 Barometric Pressure 720.5 mm/Hg 03/17/19 20:13 Oxygen Given 2.5L O2 03/17/19 20:13 Sodium 135 mmol/L (136-145) L 03/17/19 18:20 Potassium 3.8 mmol/L (3.5-5.1) 03/17/19 18:20 Chloride 97 mmol/L (98-107) L 03/17/19 18:20 Carbon Dioxide 31 mmol/L (21-32) 03/17/19 18:20 Anion Gap 7.0 (3-11) 03/17/19 18:20 BUN 70 mg/dl (7-18) H 03/17/19 18:20 Creatinine 2.78 mg/dl (0.6-1.4) H 03/17/19 18:20 Est Cr Clr Drug Dosing 21.8 ml/min 03/17/19 18:20 Est GFR ( Amer) 24.0 03/17/19 18:20 Est GFR (Non-Af Amer) 20.7 03/17/19 18:20 BUN/Creatinine Ratio 25.1 (10-20) H 03/17/19 18:20 Glucose 65 mg/dl (70-99) L 03/17/19 18:20 Lactate 1.1 mmol/L (0.4-2.0) 03/17/19 18:20 Calcium 10.3 mg/dl (8.5-10.1) H 03/17/19 18:20 Magnesium 2.3 mg/dl (1.8-2.4) 03/17/19 20:13 Total Bilirubin 0.5 mg/dl (0.2-1) 03/17/19 20:13 Direct Bilirubin 0.3 mg/dl (0-0.2) H 03/17/19 20:13 AST 30 U/L (15-37) 03/17/19 20:13 ALT 23 U/L (12-78) 03/17/19 20:13 Alkaline Phosphatase 122 U/L (45-117) H 03/17/19 20:13 Ammonia 31.3 umol/L (11-32) 03/17/19 20:13 Troponin I 0.035 ng/ml (0-0.045) 03/17/19 18:20 Total Protein 8.4 gm/dl (6.4-8.2) H 03/17/19 20:13 Albumin 3.6 gm/dl (3.4-5.0) 03/17/19 20:13 Globulin 4.8 gm/dl (2.5-4.0) H 03/17/19 18:20 Albumin/Globulin Ratio 0.8 (0.9-2) L 03/17/19 18:20 TSH 1.470 uIu/ml (0.300-4.500) 03/17/19 20:13 Influenza Type A Ag Pos for Influ A (Neg) A* 03/17/19 18:37 Influenza Type B Ag Neg for Influ B (Neg) 03/17/19 18:37 Blood Type A Positive 03/17/19 20:13 Antibody Screen NEGATIVE 03/17/19 20:13 Diagnostic Findings CXR IMPRESSION: 1. Cardiomegaly with suggestion of mild pulmonary edema. 2. Unchanged mild right hemidiaphragmatic elevation with right basilar opacities and trace right pleural effusion. 3. Ill-defined 11 mm nodular density of the lateral right midlung suggestive of composite density artifact versus pulmonary nodule. HEAD CT IMPRESSION: Motion degraded exam without acute intracranial abnormality identified. Code Status & VTE Plan Code Status Patient is a DNR as per my discussion with him and his daughter who is the bedside. VTE Prophylaxis Plan VTE Prophylaxis will be ordered: Yes Supervising Physician Co-Signing Physician Notes IM ATTENDING : Patient seen and examined. History obtained from patient, family, and records. Preceding documentation by PADMINI Oliva reviewed. FINAL ASSESSMENT AND PLAN as follows : Acute hypoxemic respiratory secondary to complicated bronchitis/flu pneumonia No overt sepsis chronic systolic heart failure secondary to ischemic cardiomyopathy (EF 40-45%) sp ICD placement, patient on the dry side hypertension, slightly elevated coronary artery disease status post stenting atrial fibrillation on anticoagulation, rate controlled, INR supra therapeutic hx VT status post ICD hx CVA as per records hx RCCA, R sp ablation CRI, creatinine close to baseline chronic anemia secondary to CKD, hemoglobin at baseline DM2 on oral medications. Well-controlled as of recent inpatient hemoglobin A1c of 6.4, December 2018 Patient hypoglycemic upon arrival at the ER. Past tobacco abuse GMF Supplemental O2 Baseline ABG Solu-Medrol, nebs, may benefit from additional steroid dose for completely to bronchitis Doxycycline Tamiflu course adjusted for renal function Gentle IV hydration, hold home diuretics until patient euvolemic PT OT eval ISS BG goal 140-180, may need basal insulin to attain goal; appropriate to hold home sulfonylureas for now given hypoglycemia upon arrival at the ER DVT prophylaxis. Coumadin INR goal between 2 and 3 DNR Patient's daughter requesting updates from providers. Sara Betts, contact #[phone].
[2019-03-17] MEDS ORDERED: METOPROLOL TARTRATE 25 MG TAB PO ONE (22:15)
[2019-03-17] MEDS: INSULIN ASPART 100 UNITS/ML 3 ML PEN SC SCH (22:21)
[2019-03-17] MEDS ORDERED: [UNRECOGNIZED DRUG - OTHER] PO ONE (22:30)
[2019-03-17] MEDS ORDERED: ORA PO ONE (22:30)
[2019-03-17] MEDS ORDERED: PHYTONADIONE PED PO ONE (22:30)
[2019-03-17] MEDS ORDERED: ORA SWEET PO ONE (22:30)
[2019-03-18] MEDS ORDERED: NSS + 20MEQ KCL 20 MEQ/1,000 ML BAG IV ONE (00:46)
[2019-03-18] MEDS: IPRATROPIUM BROMIDE NEB SOLN 0.02% 2.5 ML VIAL INH SCH ×4 (01:58→18:55)
[2019-03-18] MEDS: LEVALBUTEROL 1.25MG/0.5ML NEB INH SCH ×3 (01:58→15:01)
[2019-03-18] MEDS ORDERED: XOPENEX/ATROVENT 1.25mg/0.5MG NEB COMBO NEB SCH (02:00)
[2019-03-18 06:53] LABS: Basophils # (auto) 0.01 K/uL (0-0.2); Basophils % (auto) 0.1 %; Hematocrit (blood only) 27.4 % (42-52); Hemoglobin 8.5 g/dL (14.0-18.0); Immature Granulocytes # (auto) 0.02 K/uL (0.00-0.02); Immature Granulocytes % (auto) 0.3 %; Lymphocytes % (auto) 4.4 %; Mean Corpuscular Volume 90.7 fL (80-100); Mean Platelet Volume 9.5 fL (7.4-10.4); Monocytes # (auto) 0.19 K/uL (0.11-0.59); Monocytes % (auto) 2.8 %; Neutrophils # (auto) 6.32 K/uL (1.4-6.5); Neutrophils % (auto) 92.4 %; Platelet Count 182 K/uL (130-400); RDW Coefficient of Variation 15.4 % (11.5-14.5); RDW Standard Deviation 50.8 fL (36.4-46.3); Red Blood Count 3.02 M/uL (4.7-6.1); White Blood Count 6.84 K/uL (4.8-10.8)
[2019-03-18 07:10] LABS: Prothrombin Time 50.8 Seconds (9.0-12.0)
[2019-03-18 07:18] LABS: INR 5.6 (0.9-1.1)
[2019-03-18 07:31] LABS: Calcium 9.5 mg/dl (8.5-10.1); Creatinine Clr Calc Pharmacy 22.2 ml/min; Est GFR (African American) 25.2; Est GFR (Non-African American) 21.7; Potassium 4.2 mmol/L (3.5-5.1)
[2019-03-18] MEDS: INSULIN ASPART 100 UNITS/ML 3 ML PEN SC SCH ×4 (09:01→22:13)
[2019-03-18] MEDS: DOXYCYCLINE HYCLATE 100 MG CAP PO SCH ×2 (09:09→21:15)
[2019-03-18] MEDS: CYANOCOBALAMIN 500 MCG TABLET (VITAMIN B-12) PO SCH (09:10)
[2019-03-18] MEDS: FERROUS GLUCONATE 324 MG TAB PO SCH (09:10)
[2019-03-18] MEDS: ROSUVASTATIN CALCIUM 20 MG TAB PO SCH (09:10)
[2019-03-18] MEDS: SERTRALINE HCL 50 MG TABLET PO SCH (09:10)
[2019-03-18] MEDS: METOPROLOL SUCC 50MG EXT REL TAB PO SCH ×2 (09:10→21:16)
[2019-03-18] MEDS: PANTOprazole 40 MG TAB PO SCH (09:10)
[2019-03-18] MEDS: MULTIVITAMIN TAB PO SCH (09:10)
[2019-03-18] MEDS: CLOPIDOGREL BISULFATE 75 MG TAB PO SCH (10:17)
--- NOTE | 2019-03-18 13:08 | Hospitalist Progress Note ---
Date of Service March 18, 2019 Assessment & Plan (1) Influenza A: Influenza A Acute respiratory failure with Hypoxia Acute Bronchitis Continue Tamiflu Day #2 Continue Doxycycline Supplemental Oxygen as needed Received IV fluids Supra therapuetic INR: INR: 5.6 Received Vitamin K No bleeding issues Continue to hold Coumadin CKD IV: Cr at baseline Monitor renal function Avoid Nephrotoxic agents as able Atrial Fibrillation H/O Ablation Continue Metoprolol Hold Coumadin Monitor INR:5.6 Nebs likely contributing to tachycardia Chronic Systolic Heart failure Ischemic Cardiomyopathy H/O VT S/P ICD CAD Monitor volume status closely Received IV fluids on admission Resume diuretics as able Continue Plavix, statins, BB DM II: Last A1C:6.4 in Dec 2018 Continue ISS Monitor BGs HTN: Stable Continue home meds H/O CVA: Continue Plavix, Statins H/O RCCA S/P surgery Former Tobacco use DVT Px: INR Supra Therapeutic Code Status DNI/DNR Disposition: To be determined PT/OT prior to discharge Subjective Patient is seen and examined at bedside Doing better today Reports intermittent cough Mental status seemed to be back to baseline Denies chest pain, SOB, dizziness Offers no complaints Review of Systems Review of Systems: All systems reviewed & are unremarkable except as noted in HPI & below Physical Exam Physical Exam: Physical Exam: Vitals signs as noted above General Appearance:Chronic ill appearing, no apparent distress Head: normocephalic, Atraumatic Eyes: normal inspection, EOMI Neck: supple, Trachea midline Respiratory/Chest: Coarse breath sounds, minimal crackles Cardiovascular: Irregularly Irregular, No murmur Abdomen/GI:Soft, Non tender, Bowel sounds present Extremities/Musculoskelatal:normal inspection, no edema Neurologic/Psych:AAOX3, grossly no focal neurological deficits Skin: normal color, warm Results & Data Vital Signs (Past 12 Hours) Vital Signs Temp Pulse Resp BP Pulse Ox 03/18/19 07:27 105 H 18 97 03/18/19 07:00 36.6 C 105 H 20 135/90 97 Laboratory Results Short CBC 03/17/19 03/18/19 Range/Units 18:20 06:26 WBC 9.32 6.84 (4.8-10.8) K/uL Hgb 9.3 L 8.5 L (14.0-18.0) g/dL Hct 29.7 L 27.4 L (42-52) % Plt Count 201 182 (130-400) K/uL BMP 03/17/19 03/18/19 18:20 06:26 Sodium 135 L 134 L Potassium 3.8 4.2 Chloride 97 L 98 Carbon Dioxide 31 28 BUN 70 H 70 H Creatinine 2.78 H 2.67 H Glucose 65 L 162 H Calcium 10.3 H 9.5 Cardiac Enzymes 03/17/19 Range/Units 18:20 Troponin I 0.035 (0-0.045) ng/ml Liver Function 03/17/19 03/17/19 Range/Units 18:20 20:13 Total Bilirubin 0.5 0.5 (0.2-1) mg/dl Direct Bilirubin 0.3 H (0-0.2) mg/dl AST 30 30 (15-37) U/L ALT 25 23 (12-78) U/L Alkaline Phosphatase 126 H 122 H (45-117) U/L Albumin 3.8 3.6 (3.4-5.0) gm/dl
[2019-03-18] MEDS: LEVALBUTEROL HCL 0.63 MG/3 ML NEB NEB SCH (18:56)
[2019-03-18] MEDS: OSELTAMIVIR PHOSPHATE SUSP 30 MG/5 ML UDP PO SCH (21:22)
[2019-03-18] MEDS ORDERED: DIGOXIN 0.25 MG TAB PO ONE ×2 (21:30→23:22)
[2019-03-18] MEDS ORDERED: METOPROLOL SUCC 25MG EXT REL TAB PO STA (23:22)
[2019-03-18] MEDS ORDERED: ALBUMIN 25% 50 ML IV ONE (23:24)
[2019-03-19] MEDS: IPRATROPIUM BROMIDE NEB SOLN 0.02% 2.5 ML VIAL INH SCH ×4 (02:11→19:11)
[2019-03-19] MEDS: LEVALBUTEROL HCL 0.63 MG/3 ML NEB NEB SCH ×4 (02:11→19:12)
[2019-03-19] MEDS ORDERED: DIGOXIN 0.125 MG TAB PO ONE (02:13)
[2019-03-19] MEDS ORDERED: METOPROLOL SUCC 50MG EXT REL TAB PO SCH ×2 (03:30→09:00)
[2019-03-19 04:08] LABS: Basophils # (auto) 0.03 K/uL (0-0.2); Basophils % (auto) 0.3 %; Eosinophils # (auto) 0.34 K/uL (0-0.5); Eosinophils % (auto) 3.7 %; Hematocrit (blood only) 28.2 % (42-52); Immature Granulocytes # (auto) 0.04 K/uL (0.00-0.02); Immature Granulocytes % (auto) 0.4 %; Lymphocytes # (auto) 0.77 K/uL (1.2-3.4); Lymphocytes % (auto) 8.3 %; Mean Corpuscular Hgb Conc 31.9 g/dL (32-36); Mean Corpuscular Volume 91.6 fL (80-100); Monocytes # (auto) 1.33 K/uL (0.11-0.59); Monocytes % (auto) 14.4 %; Neutrophils # (auto) 6.73 K/uL (1.4-6.5); Neutrophils % (auto) 72.9 %; Platelet Count 222 K/uL (130-400); RDW Coefficient of Variation 15.5 % (11.5-14.5); Red Blood Count 3.08 M/uL (4.7-6.1); White Blood Count 9.24 K/uL (4.8-10.8)
[2019-03-19 04:17] LABS: INR 3.1 (0.9-1.1); Prothrombin Time 29.6 Seconds (9.0-12.0)
[2019-03-19 04:24] LABS: BUN Creatinine Ratio 26.5 (10-20); Calcium 9.7 mg/dl (8.5-10.1); Creatinine Clr Calc Pharmacy 22.1 ml/min; Est GFR (Non-African American) 21.5; Magnesium 2.3 mg/dl (1.8-2.4); Potassium 4.2 mmol/L (3.5-5.1)
[2019-03-19] MEDS ORDERED: SODIUM CHLORIDE 0.9% 500 ML IV ONE (04:52)
[2019-03-19] MEDS: INSULIN ASPART 100 UNITS/ML 3 ML PEN SC SCH ×4 (08:30→21:41)
[2019-03-19] MEDS: MULTIVITAMIN TAB PO SCH (08:41)
[2019-03-19] MEDS: SERTRALINE HCL 50 MG TABLET PO SCH (08:41)
[2019-03-19] MEDS: ROSUVASTATIN CALCIUM 20 MG TAB PO SCH (08:41)
[2019-03-19] MEDS: FERROUS GLUCONATE 324 MG TAB PO SCH (08:41)
[2019-03-19] MEDS: CYANOCOBALAMIN 500 MCG TABLET (VITAMIN B-12) PO SCH (08:41)
[2019-03-19] MEDS: DOXYCYCLINE HYCLATE 100 MG CAP PO SCH ×2 (08:41→20:37)
[2019-03-19] MEDS: PANTOprazole 40 MG TAB PO SCH (08:41)
[2019-03-19] MEDS: CLOPIDOGREL BISULFATE 75 MG TAB PO SCH (08:42)
--- NOTE | 2019-03-19 14:10 | Hospitalist Progress Note ---
Date of Service March 19, 2019 Assessment & Plan (1) Influenza A: Influenza A Acute respiratory failure with Hypoxia Acute Bronchitis Continue Tamiflu Day #3 Continue Doxycycline Supplemental Oxygen as needed Received IV fluids Continue Supportive Care Supra therapuetic INR: INR: 5.6>>3.1 Received Vitamin K No bleeding issues Continue to hold Coumadin CKD IV: Cr at baseline Monitor renal function Avoid Nephrotoxic agents as able Atrial Fibrillation RVR H/O Ablation Continue Metoprolol-- Dose increased to 125mg BID Hold Coumadin Monitor INR:3.1 Dehydration, Nebs likely contributing to tachycardia as well Chronic Systolic Heart failure Ischemic Cardiomyopathy H/O VT S/P ICD CAD Monitor volume status closely Received IV fluids on admission Resume diuretics as able Continue Plavix, statins, BB DM II: Last A1C:6.4 in Dec 2018 Continue ISS Monitor BGs HTN: Stable Continue home meds H/O CVA: Continue Plavix, Statins H/O RCCA S/P surgery Former Tobacco use DVT Px: INR Supra Therapeutic Code Status DNI/DNR Disposition: To be determined PT/OT prior to discharge Subjective Patient is seen and examined at bedside Had tachycardia overnight States feeling well today Offers no complaints Eager to get discharged Has minimal cough Denies chest pain, SOB, dizziness Review of Systems Review of Systems: All systems reviewed & are unremarkable except as noted in HPI & below Physical Exam Physical Exam: Physical Exam: Vitals signs as noted above General Appearance:Chronic ill appearing, no apparent distress Head: normocephalic, Atraumatic Eyes: normal inspection, EOMI Neck: supple, Trachea midline Respiratory/Chest: Coarse breath sounds, minimal crackles Cardiovascular: Irregularly Irregular, No murmur Abdomen/GI:Soft, Non tender, Bowel sounds present Extremities/Musculoskelatal:normal inspection, no edema Neurologic/Psych:AAOX3, grossly no focal neurological deficits Skin: normal color, warm Results & Data Vital Signs (Past 12 Hours) Vital Signs Temp Pulse Pulse Resp BP Pulse Ox 03/19/19 07:09 98 H 18 90 03/19/19 07:00 36.9 C 98 H 18 131/75 90 03/19/19 04:54 130 H 126/80 03/19/19 03:13 120 H 121/77 90 03/19/19 02:43 113 H 03/19/19 02:11 121 H 16 90 03/19/19 02:07 36.6 C 127 H 16 124/79 90 Laboratory Results Short CBC 03/19/19 Range/Units 03:46 WBC 9.24 (4.8-10.8) K/uL Hgb 9.0 L (14.0-18.0) g/dL Hct 28.2 L (42-52) % Plt Count 222 (130-400) K/uL BMP 03/19/19 03:46 Sodium 133 L Potassium 4.2 Chloride 98 Carbon Dioxide 30 BUN 71 H Creatinine 2.69 H Glucose 156 H Calcium 9.7
[2019-03-19] MEDS: METOPROLOL SUCC 50MG EXT REL TAB PO SCH (20:36)
[2019-03-19] MEDS: OSELTAMIVIR PHOSPHATE SUSP 30 MG/5 ML UDP PO SCH (20:38)
[2019-03-20] MEDS: IPRATROPIUM BROMIDE NEB SOLN 0.02% 2.5 ML VIAL INH SCH ×3 (01:43→14:06)
[2019-03-20] MEDS: LEVALBUTEROL HCL 0.63 MG/3 ML NEB NEB SCH ×3 (01:44→14:07)
[2019-03-20 07:14] LABS: Hematocrit (blood only) 28.1 % (42-52); Hemoglobin 8.8 g/dL (14.0-18.0)
[2019-03-20 07:26] LABS: INR 1.7 (0.9-1.1); Prothrombin Time 17.2 Seconds (9.0-12.0)
[2019-03-20] MEDS: CLOPIDOGREL BISULFATE 75 MG TAB PO SCH (07:34)
[2019-03-20] MEDS: METOPROLOL SUCC 50MG EXT REL TAB PO SCH (07:34)
[2019-03-20] MEDS: FERROUS GLUCONATE 324 MG TAB PO SCH (07:36)
[2019-03-20] MEDS: DOXYCYCLINE HYCLATE 100 MG CAP PO SCH (07:36)
[2019-03-20] MEDS: CYANOCOBALAMIN 500 MCG TABLET (VITAMIN B-12) PO SCH (07:37)
[2019-03-20] MEDS: PANTOprazole 40 MG TAB PO SCH (07:37)
[2019-03-20] MEDS: SERTRALINE HCL 50 MG TABLET PO SCH (07:37)
[2019-03-20] MEDS: MULTIVITAMIN TAB PO SCH (07:38)
[2019-03-20] MEDS: ROSUVASTATIN CALCIUM 20 MG TAB PO SCH (07:38)
[2019-03-20 07:53] LABS: BUN Creatinine Ratio 26.3 (10-20); Calcium 10.1 mg/dl (8.5-10.1); Est GFR (African American) 33.7; Est GFR (Non-African American) 29.1; Potassium 4.5 mmol/L (3.5-5.1)
[2019-03-20] MEDS: INSULIN ASPART 100 UNITS/ML 3 ML PEN SC SCH (09:22)
[2019-03-20] MEDS ORDERED: POTASSIUM CHLORIDE 20 MEQ TABCR PO SCH (10:30)
[2019-03-20] MEDS ORDERED: TORSEMIDE 20 MG TAB PO SCH (10:45)
--- NOTE | 2019-03-20 11:41 | Hospitalist Progress Note ---
Date of Service March 20, 2019 Assessment & Plan (1) Influenza A: Influenza A Acute respiratory failure with Hypoxia Acute Bronchitis Continue Tamiflu Day #4/5 Continue Doxycycline Day #3 Weaned off of oxygen Received IV fluids Continue Supportive Care Supra therapuetic INR: INR: 5.6>>3.1>>1.7 Received Vitamin K No bleeding issues Resume Coumadin today CKD IV: Cr at baseline Monitor renal function Avoid Nephrotoxic agents as able Atrial Fibrillation RVR H/O Ablation Continue Metoprolol-- Dose increased to 125mg BID Continue Coumadin Monitor INR:3.1>>1.7 Dehydration, Nebs likely contributing to tachycardia as well Chronic Systolic Heart failure Ischemic Cardiomyopathy H/O VT S/P ICD CAD Monitor volume status closely Received IV fluids on admission Resume diuretics today Continue Plavix, statins, BB DM II: Last A1C:6.4 in Dec 2018 Continue ISS Monitor BGs HTN: Stable Continue home meds H/O CVA: Continue Plavix, Statins H/O RCCA S/P surgery Former Tobacco use DVT Px: Coumadin Code Status DNI/DNR Disposition: Plan to discharge home with Home Health Subjective Patient is seen and examined at bedside No new complaints Feels well, eager to get discharged Saturating well on room air Ambulated in hallway with Stable Oxygen Sats Heart rate controlled Has intermittent cough Denies chest pain, SOB, dizziness No family at bedside Review of Systems Review of Systems: All systems reviewed & are unremarkable except as noted in HPI & below Physical Exam Physical Exam: Physical Exam: Vitals signs as noted above General Appearance:Chronic ill appearing, no apparent distress Head: normocephalic, Atraumatic Eyes: normal inspection, EOMI Neck: supple, Trachea midline Respiratory/Chest: Coarse breath sounds, Minimal crackles at bases Cardiovascular: Irregularly Irregular, No murmur Abdomen/GI:Soft, Non tender, Bowel sounds present Extremities/Musculoskelatal:normal inspection, no edema Neurologic/Psych:AAOX3, grossly no focal neurological deficits Skin: normal color, warm Results & Data Vital Signs (Past 12 Hours) Vital Signs Temp Pulse Resp BP Pulse Ox 03/20/19 07:13 91 H 18 95 03/20/19 06:37 36.5 C 86 21 156/75 H 94 03/20/19 01:46 84 16 92 Laboratory Results Short CBC 03/20/19 Range/Units 07:04 Hgb 8.8 L (14.0-18.0) g/dL Hct 28.1 L (42-52) % BMP 03/20/19 07:04 Sodium 137 Potassium 4.5 Chloride 102 Carbon Dioxide 28 BUN 55 H Creatinine 2.10 H D Glucose 94 Calcium 10.1
--- NOTE | 2019-03-20 11:59 | Discharge Summary ---
Date of Service March 20, 2019 Admission HPI Per Admitting Provider 78-year-old male who presents to the ED with cough, congestion, shortness of breath. Symptoms began about 4 days ago. Of note, patient was exposed to his grandchildren who tested positive for influenza A. Patient was seen by his PCP 2 days ago for these complaints and was given a prescription for azithromycin. Despite taking this medication, patient symptoms continue to get worse. Cough has been moist however nonproductive. Daughter is at the bedside who reports that her father has been lethargic over the past few days. He has also had a very poor appetite. One episode of nausea and dry heaves. Patient denies abdominal pain and diarrhea. Has also been running fevers as high as 102. No chills or rigors. Patient denies chest pain. No lightheadedness, dizziness, diaphoresis, syncopal events. Patient denies any urinary symptoms. In the ED, patient tested positive for influenza A. He was hypoxic on room air at 87% which improved with oxygen 2 L via nasal cannula. Patient was given IVF, Tamifl u, nebulizer treatment. Admission Exam Per Admitting Provider Constitutional: WD/WN, vitals as above Eyes: PERRL, conjunctivae normal, anicteric sclerae ENMT: external ear and nose normal, oropharynx normal Respiratory: no respiratory distress and + not able to speak in complete sentence (Mild conversational dyspnea noted) Auscultation: + diminished lung sounds and + rhonchi (Scattered, more pronounced in the upper and anterior lung garcia) Cardiovascular: Rate/Rhythm: regular rate and + irregularly irregular Vessels: normal peripheral pulses Extremities: no edema Gastrointestinal (Abdomen): normal bowel sounds, soft, nontender, no hepatosplenomegaly Musculoskeletal: no cyanosis or clubbing, extremities motor strength 5/5 Skin: no rashes, warm and dry Neurologic: PERRL, EOMI, accommodation nl, no face palsy, no dysarthria Psychiatric: A+Ox3, euthymic affect (Appears tired) Principal Diagnosis Discharge Information Discharge Diagnosis Influenza A Elevated INR Acute Bronchitis Atrial Fibrillation Discharge Goals Decrease discomfort,Improve function,Improve disease control Discharge Activity Limitations Resume your previous activity Discharge Data Allergies Allergy/AdvReac Type Severity Reaction Status Date / Time fentanyl Allergy Severe Decreased Verified 03/17/19 18:20 oxygen saturation, low RR, unresponsive midazolam Allergy Severe Decreased Verified 03/17/19 18:20 oxygen saturation, low RR, unresponsive. codeine Allergy Unknown GI SYMPTOMS Verified 03/17/19 18:20 promethazine [From Phenergan] AdvReac Severe severe Verified 03/17/19 18:20 fatigue BRIANA Inhibitors AdvReac Mild cough, Verified 03/17/19 18:20 cefuroxime AdvReac Mild GI SYMPTOMS Verified 03/17/19 18:20 Consultations 03/17/19 19:29 ED Decision to Admit Stat 03/17/19 21:08 Consult Case Management - Discharge Planning Routine Procedures Performed CT Head: Motion degraded exam without acute intracranial abnormality identified. CXR: 1. Cardiomegaly with suggestion of mild pulmonary edema. 2. Unchanged mild right hemidiaphragmatic elevation with right basilar opacities and trace right pleural effusion. 3. Ill-defined 11 mm nodular density of the lateral right midlung suggestive of composite density artifact versus pulmonary nodule. Ordered Studies 03/17/19 19:14 CT head/brain wo con Stat Hospital Course (1) Influenza A: Influenza A Acute respiratory failure with Hypoxia Acute Bronchitis Continue Tamiflu Day #4/5 Continue Doxycycline Day #3 Weaned off of oxygen Received IV fluids Continue Supportive Care Supra therapuetic INR: INR: 5.6>>3.1>>1.7 Received Vitamin K No bleeding issues Resume Coumadin today CKD IV: Cr at baseline Monitor renal function Avoid Nephrotoxic agents as able Atrial Fibrillation RVR H/O Ablation Continue Metoprolol-- Dose increased to 125mg BID Continue Coumadin Monitor INR:3.1>>1.7 Dehydration, Nebs likely contributing to tachycardia as well Chronic Systolic Heart failure Ischemic Cardiomyopathy H/O VT S/P ICD CAD Monitor volume status closely Received IV fluids on admission Resume diuretics today Continue Plavix, statins, BB DM II: Last A1C:6.4 in Dec 2018 Continue ISS Monitor BGs HTN: Stable Continue home meds H/O CVA: Continue Plavix, Statins H/O RCCA S/P surgery Former Tobacco use DVT Px: Coumadin Code Status DNI/DNR Disposition: Plan to discharge home with Home Health Total Time Total Time Spent Total Time Spent (In Minutes): 36 minutes Total Time Includes: Examination of the Patient, Discharge Planning, Medication Reconciliation, Communication With Other Providers and Other Discharge Plan Discharge Items Patient Disposition: Home - Home Health Services Reason For Visit: RESP FAILURE Discharge Diagnosis: Influenza A Elevated INR Acute Bronchitis Atrial Fibrillation Discharge Goals: Decrease discomfort, Improve disease control and Improve function Activity: Resume your previous activity Exercise/Sports: Gradually increase as tolerated Non-emergency contact: Primary Care Provider, Specialist and [employer] Apprentice Call non-emergency contact if: you have any medication questions, your symptoms worsen, your pain is not controlled, your pain is worsening, your pain is unusual for you, your pain is concerning for you and you have a fever Follow-up/Referrals: Shade Thomas MD [Primary Care Provider] - Diet: Carb Consistent or DM2 and Heart Healthy Addtl Provider Instructions: Follow up with your PCP on March 27, 2019 at 10:45AM Follow up with your [employer] Apprentice on March 29, 2019 at 12:45 Follow up with coumadin clinic for Coumadin dosing and PT/INR check tomorrow - March 21, 2019 as advised Complete the antibiotic--Doxycycline and Tamiflu Course as prescribed Your Azithromycin prescribed by your Primary Care doctor is discontinued as you were started on Doxycycline Seek immediate medical attention if your symptoms reoccur or worsen Your Metoprolol dose is increased from 100mg twice a day to 125mg twice a day for better heart rate control Your PT/INR TODAY (03/20/19) IS 1.7 TAKE COUMADIN 2.5 MG TODAY DISCUSS WITH YOUR PHYSICIAN/COUMADIN CLINIC FOR FURTHER DOSING OF YOUR COUMADIN DOSING WHILE ON ANTIBIOTIC Prescriptions: New doxycycline hyclate 100 mg Capsule 100 mg PO BID Qty: 5 RF: 0 metoprolol succinate 50 mg Tablet Extended Release 24 Hr 125 mg PO BID 30 Days Qty: 150 RF: 0 oseltamivir [Tamiflu] 30 mg capsule 30 mg PO HS Qty: 2 RF: 0 Continued warfarin 5 mg Tablet 7.5 mg PO MOWEFRSA RF: 0 dextromethorphan-guaifenesin [Mucinex DM] 60-1,200 mg Tablet Extended Release 12 Hr 1 tab PO Q12H PRN (Reason: Cough) RF: 0 testosterone 50 mg/5 gram (1 %) Gel 1 packet TRANSDERMAL DAILY RF: 0 pantoprazole [Protonix] 40 mg Tablet,Delayed Release (Dr/Ec) 40 mg PO QAM RF: 0 nitroglycerin [Nitrostat] 0.4 mg Tablet, Sublingual 0.4 mg Sublingual UD PRN (Reason: Chest Pain) RF: 0 clopidogrel [Plavix] 75 mg Tablet 75 mg PO QAM RF: 0 sertraline 50 mg Tablet 50 mg PO QAM RF: 0 coenzyme Q10 [Co Q-10] 10 mg Capsule 10 mg PO QAM RF: 0 cyanocobalamin (vitamin B-12) 1,000 mcg Tablet 1,000 mcg PO QAM RF: 0 ferrous gluconate 324 mg (37.5 mg iron) Tablet 324 mg PO QAM RF: 0 rosuvastatin [Crestor] 20 mg Tablet 20 mg PO QAM RF: 0 multivitamin [Multiple Vitamins] Tablet 1 tab PO QAM RF: 0 glipizide 5 mg tablet 2.5 mg PO BID Qty: 30 RF: 1 torsemide 20 mg Tablet 80 mg PO QAM 30 Days Qty: 120 RF: 1 warfarin 5 mg Tablet 5 mg PO SUTUTH RF: 0 potassium chloride [Klor-Con M20] 20 mEq Tablet,Er Particles/Crystals 20 meq PO QAM Qty: 30 RF: 1 Discontinued azithromycin 250 mg tablet 250 mg PO UD RF: 0 metoprolol succinate 100 mg tablet extended release 24 hr 100 mg PO BID RF: 0 Stand-Alone Forms: [facility] Discharge Orders: Discharge Order (Routine); Ordered 03/20/19 Ordered By: Yuriy Khan Admission Data Admit Date/Time: 03/17/19 21:07 Attending Provider: Yuriy Khan Admit Provider: Candido Alves Primary Care Provider: Shade Thomas Other Providers: Candido Alves Service: Medical Other Interventions: Discharge Summary Assessment (RN) Last Done: 03/20/19 12:22 Pending Studies at Discharge: No DC Date/Time DO NOT enter until pt leaves facility: 03/20/19 15:03
[2019-03-20] MEDS ORDERED: WARFARIN SOD 3 MG TAB PO SCH (16:00)
--- OUTSIDE RECORDS SUMMARY | 2019-03-20 22:30 | External Medical Summary | Continuity of Care Document ---
:1940 Author Name Marilu Centeno, Provider Address Unavailable Unavailable , Care Team Providers Name Role Phone Jorge Galarza II, DO Unavailable [email or web address] Edith Bernal Unavailable 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 Refills: 0 Carvedilol 6.25 MG Oral Tablet; TAKE 1 TABLET TWICE DAILY WI TH MEALS. Refills: 0 Furosemide 20 MG Oral Tablet; TAKE 1 TABLET DAILY DIRECTE D. Refills: 0 Glucophage 1000 MG Oral Tablet; TAKE 1 TABLET DAILY WITH YARI D. Refills: 0 Protonix 40 MG Oral Tablet Delayed Release; TAKE 1 TABLET DA ISAIAS. Refills: 0 Digoxin 125 MCG Oral Tablet; TAKE 1 TABLET DAILY. Refills: 0 Coumadin 7.5 MG Oral Tablet; TAKE DIRECTED. Refills: 0 Furosemide 40 MG Oral Tablet; TAKE 1 TABLET DAILY DIRECTE D. Refills: 0 Crestor 20 MG Oral Tablet; TAKE 1 TABLET DAILY. Refills: 0 Sertraline HCl - 50 MG Oral Tablet; TAKE 1 TABLET DAILY. 30 Tablet Bottle Refills: 0 Testosterone GEL Refills: 0 Ferrous Gluconate 324 MG TABS Refills: 0 Clopidogrel Bisulfate 75 MG Oral Tablet Refills: 0 Cyanocobalamin 1000 MCG/ML Injection Solution Refills: 0 Sulfamethoxazole-Trimethoprim 800-160 MG Oral Tablet; TAKE 1 TABLET TWICE DAILY UNTIL FINISHED. DO Jorge Galarza II Start: 20-Oct-2017 Quantity: 10 Refills: 0 Nitrofurantoin Monohyd Macro 100 MG Oral Capsule; TAKE 1 CAPSULE EVERY 12 HOURS DAILY. DO Jorge Galarza II Start: 23-May-2018 Quantity: 20 Refills: 0 Betamethasone Dipropionate 0.05 % Aerospace Project Manager al Cream; APPLY SPARINGLY TO AFFECTED AREA(S) TWICE DAILY DO Jorge Galarza II Start: 16-Jun-2018 Quantity: 1 45 GM Tube Refills: 0 Clotrimazole 1 % External Cream; APPLY 2-3 TIMES DAILY TO AFFECTED AREA(S). DO Jorge Galarza II Start: 16-Jun-2018 Quantity: 1 45 GM Tube Refills: 0 Ciprofloxacin HCl - 500 MG Oral Tablet; TAKE 1 TABLET EVERY 12 HOURS DAILY. DO Jorge Galarza II Start: 16-Jun-2018 Quantity: 14 Refills: 0 Procedures History of Removal Of Lesion Status: Com pleted Immunizations Immunizations not documented Family History Sister Family history of diabetes mellitus (V18.0) (Z83.3) Status: Active Father Family history of cardiac disorder (V17.49) (Z82.49) Status: Active Social History - Smoking Status Never smoker Plan of Treatment Planned Observations Planned Goals not documented Results No Known Results Results not documented Encounters Appointment; Jorge Galarza II, DO 02-Nov-2018 15:00 Encounter Diagnosis: Problem not documented Appointment; Jorge Galarza II, DO 30-Aug-2018 12:00 Encounter Diagnosis: Problem not documented Appointment; Jorge Galarza II, DO 27-Jul-2018 11:20 Encounter Diagnosis: Problem not documented Appointment; Urology, Nursing Station 14-Jul-2018 16:00 Encounter Diagnosis: Problem not documented Appointment; oJrge Galarza II, DO 11-Jul-2018 8:30 Encounter Diagnosis: Problem not documented Appointment; Jorge Galarza II, DO 22-Jun-2018 13:10 Encounter Diagnosis: Problem not documented Appointment; Jorge Galarza II, DO 16-Jun-2018 15:45 Encounter Diagnosis: Problem not documented Appointment; Urology, Room 8 16-Jun-2018 15:30 Encounter Diagnosis: Problem not documented Appointment; Jorge Galarza II, DO 23-May-2018 15:00 Encounter Diagnosis: Problem not documented Appointment; Jorge Galarza II, DO 23-Mar-2018 15:40 Encounter Diagnosis: Problem not documented Appointment; Jorge Galarza II, DO 23-Dec-2017 15:05 Encounter Diagnosis: Problem not documented Appointment; Jorge Galarza II, DO 24-Nov-2017 14:50 Encounter Diagnosis: Problem not documented Appointment; Jorge Galarza II, DO 20-Oct-2017 10:10 Encounter Diagnosis: Problem not documented
== END 2019-03-20 15:03 | disposition home health service (06) | DRG 193 ==
LOC: ED 16:56 → 4W 21:07

== ENCOUNTER 2019-07-25 16:47 | Inpatient (IN) ==
[2019-07-25 17:21] LABS: iSTAT Creatinine 3.2 mg/dl (0.6-1.3); iSTAT Hemoglobin 7.8 g/dl (14.0-18.0); iSTAT Ionized Calcium 1.15 mmol/l (1.12-1.32); iSTAT Potassium 5.6 mEq/L (3.3-5.0)
--- NOTE | 2019-07-25 17:31 | XRay Report ---
XR chest 1V portable HISTORY: 79 years-old Male SOB acute shortness of breath COMPARISON: Chest radiograph 05/02/2019 TECHNIQUE: Portable AP view of the chest FINDINGS: Cardiac silhouette is enlarged, unchanged. Stable positioning of single lead left subclavian pacer/AI CD. Chronic mild right hemidiaphragmatic elevation with minimal subsegmental bibasilar atelectasis. N o pneumothorax, large pleural effusion or lobar airspace consolidation. Possible trace pleural effusi ons. Pulmonary vascular congestion with mild interstitial coarsening redemonstrated. Degenerative facundo nges of the shoulders and spine. IMPRESSION: 1. Cardiomegaly with pulmonary vascular congestion and mild interstitial coarsening, possibly reflect bettie of mild pulmonary edema. 2. Unchanged right hemidiaphragmatic elevation. 3. Probable trace pleural effusions. The above report was generated using voice recognition software. It may contain grammatical, syntax o r spelling errors. Electronically signed by: Samy Lara M.D. 07/25/2019 5:30 PM
--- NOTE | 2019-07-25 17:37 | Emergency Department Note ---
Entered by Aneesh Mcguire acting as a scribe for History of Present Illness General Chief complaint: Abnormal Labs/Diagnostic Testing Stated complaint: POTASSIUM VERY HIGH SENT BY Time Seen by Provider: 07/25/19 16:54 Source: patient History of Present Illness Onset (ago): day(s) 4 Location: head, upper extremity and lower extremity Pain Consistency: + other (after medications were changed ) Quality: + other (abnormal labs) Associated symptoms: + other (Negative diarrhea, decrease in urinary frequency); no nausea/vomiting The patient is a 79 y/o male who presents to the ED for abnormal labs. He is accompanied by his daughter who states that 4 days ago, Dr. Olivares upped his torsemide dosage to 100 mg a day. She reports Dr. Olivares also added a potassium pill 3 days ago because his potassium was low. His daughter reports she was told his potassium was high, and his doctor recommended she take him to the ED. Pt denies any vomiting, diarrhea, SOB while lying flat, decrease in urinary frequency. His daughter states the patient only had dialysis when he was admitted to the hospital around late December or early January. Pt has a history of renal insufficiency. Home Medications Home Medications Medication Instructions Recorded Confirmed Type clopidogrel [Plavix] 75 mg PO QAM 08/16/18 07/25/19 History coenzyme Q10 [Co Q-10] 10 mg PO QAM 08/16/18 07/25/19 History cyanocobalamin (vitamin B-12) 1,000 mcg PO QAM 08/16/18 07/25/19 History ferrous gluconate 324 mg PO QAM 08/16/18 07/25/19 History multivitamin [Multiple Vitamins] 1 tab PO QAM 08/16/18 07/25/19 History nitroglycerin [Nitrostat] 0.4 mg SUBLINGUAL UD PRN 08/16/18 07/25/19 History pantoprazole [Protonix] 40 mg PO QAM 08/16/18 07/25/19 History rosuvastatin [Crestor] 20 mg PO QAM 08/16/18 07/25/19 History sertraline 50 mg PO QAM 08/16/18 07/25/19 History glipizide 2.5 mg PO BID #30 tab 02/01/19 07/25/19 Rx potassium chloride [Klor-Con M20] 20 meq PO QAM #30 tab 02/03/19 07/25/19 Rx dextromethorphan-guaifenesin 1 tab PO Q12H PRN 03/17/19 07/25/19 History [Mucinex DM] testosterone 1 packet TRANSDERMAL DAILY 03/17/19 07/25/19 History warfarin 2.5 - 5 mg PO UD 03/17/19 07/25/19 History torsemide 40 mg PO DAILY 05/02/19 07/25/19 History Allergies Allergy/AdvReac Type Severity Reaction Status Date / Time fentanyl Allergy Severe Decreased Verified 07/25/19 17:54 oxygen saturation, low RR, unresponsive midazolam Allergy Severe Decreased Verified 07/25/19 17:54 oxygen saturation, low RR, unresponsive. codeine Allergy Unknown GI SYMPTOMS Verified 07/25/19 17:54 promethazine [From Phenergan] AdvReac Severe severe Verified 07/25/19 17:54 fatigue BRIANA Inhibitors AdvReac Mild cough, Verified 07/25/19 17:54 cefuroxime AdvReac Mild GI SYMPTOMS Verified 07/25/19 17:54 Past Med/Surg History Medical History CKD (chronic kidney disease), stage IV (Chronic) Cirrhosis of liver (Chronic) Anticoagulant long-term use (Chronic) Ischemic cardiomyopathy (Chronic) DMII (diabetes mellitus, type 2) (Chronic) CAD (coronary artery disease) (Chronic) Pericardial effusion (Resolved) Anemia in chronic kidney disease (Chronic) SBP (spontaneous bacterial peritonitis) (Resolved) Depression (Chronic) HTN (hypertension) (Chronic) History of renal carcinoma (Chronic) Chronic systolic heart failure (Chronic) Ascites (Resolved) CAD (coronary artery disease) (Chronic) "2005 - PCI to LAD cath 2011 - no significant obstructive disease" CVA (cerebral vascular accident) (Chronic) Squamous cell carcinoma (Chronic) Basal cell carcinoma (Chronic) V tach (Chronic) "s/p AICD placement" Gross hematuria (Resolved) Surgical History History of prior ablation treatment (Chronic) CT guided tissue ablation R kidney S/P ICD (internal cardiac defibrillator) procedure (Chronic) History of cataract surgery (Chronic) Family History Father Coronary heart disease Mother Coronary heart disease Social History Preferred Language: Jordanian Communication Ability: Effective Visual Impairment: No Limitations Home Maker Required: No Beliefs That Will Affect Care: None marital status: Current Living Situation: Spouse and Family Other Information That Helps Us Care for You: No Feels Safe at Home: Yes Safety Concerns: Feels Safe At This Time Smoking Status: Never smoker Tobacco Type: cigarettes ; Second Hand Exposure: No ; Hx Alcohol Use: Yes Hx Substance Use: No Review of Systems See HPI for pertinent positives & negatives. and A total of 10 systems reviewed and were otherwise negative Physical Exam Vital Signs Vital Signs - 24 hr 07/25/19 16:49 07/25/19 17:02 07/25/19 17:36 Temperature 36.5 C Temperature Source Oral Sepsis Recent Fever Within 48 Hours No Sepsis New/Unexplained Change in Mental Status No Sepsis Action Taken by Nursing No Action Required Pulse Rate 72 67 72 Pulse Rate from SpO2 Sensor 71 69 Pulse Rhythm Pulse Strength Respiratory Rate 20 20 15 Respiratory Effort / Characteristics Non-Labored Spontaneous Respiratory Depth Normal Respiratory Pattern Regular Blood Pressure 120/71 132/81 123/65 Blood Pressure Mean 87 98 84 Blood Pressure Position Sitting Pulse Oximetry 93 97 97 Oxygen Delivery Method Room Air 07/25/19 17:51 07/25/19 18:05 07/25/19 18:30 Temperature Temperature Source Sepsis Recent Fever Within 48 Hours Sepsis New/Unexplained Change in Mental Status Sepsis Action Taken by Nursing Pulse Rate 71 78 71 Pulse Rate from SpO2 Sensor 74 72 Pulse Rhythm Pulse Strength Respiratory Rate 17 25 H 18 Respiratory Effort / Characteristics Respiratory Depth Respiratory Pattern Blood Pressure 123/65 Blood Pressure Mean 84 Blood Pressure Position Pulse Oximetry 95 100 98 Oxygen Delivery Method 07/25/19 19:00 07/25/19 19:30 07/25/19 19:35 Temperature Temperature Source Sepsis Recent Fever Within 48 Hours Sepsis New/Unexplained Change in Mental Status Sepsis Action Taken by Nursing Pulse Rate 71 71 64 Pulse Rate from SpO2 Sensor 73 71 67 Pulse Rhythm Pulse Strength Respiratory Rate 15 15 18 Respiratory Effort / Characteristics Respiratory Depth Respiratory Pattern Blood Pressure 148/73 H Blood Pressure Mean 98 Blood Pressure Position Pulse Oximetry 95 96 95 Oxygen Delivery Method 07/25/19 19:47 07/25/19 19:50 07/25/19 19:53 Temperature Temperature Source Sepsis Recent Fever Within 48 Hours Sepsis New/Unexplained Change in Mental Status Sepsis Action Taken by Nursing Pulse Rate 77 74 84 Pulse Rate from SpO2 Sensor Pulse Rhythm Pulse Strength Respiratory Rate 19 23 19 Respiratory Effort / Characteristics Respiratory Depth Respiratory Pattern Blood Pressure 148/73 H Blood Pressure Mean 98 Blood Pressure Position Pulse Oximetry Oxygen Delivery Method 07/25/19 19:55 07/25/19 20:00 07/25/19 20:01 Temperature Temperature Source Sepsis Recent Fever Within 48 Hours Sepsis New/Unexplained Change in Mental Status Sepsis Action Taken by Nursing Pulse Rate 75 70 80 Pulse Rate from SpO2 Sensor Pulse Rhythm Pulse Strength Respiratory Rate 19 20 20 Respiratory Effort / Characteristics Respiratory Depth Respiratory Pattern Blood Pressure 140/65 Blood Pressure Mean 90 Blood Pressure Position Pulse Oximetry Oxygen Delivery Method 07/25/19 20:05 07/25/19 20:10 07/25/19 20:14 Temperature 36.5 C Temperature Source Oral Sepsis Recent Fever Within 48 Hours Sepsis New/Unexplained Change in Mental Status Sepsis Action Taken by Nursing Pulse Rate 72 71 82 Pulse Rate from SpO2 Sensor 71 82 Pulse Rhythm Regular Pulse Strength Normal Respiratory Rate 17 20 19 Respiratory Effort / Characteristics Respiratory Depth Respiratory Pattern Blood Pressure 144/80 H Blood Pressure Mean 101 Blood Pressure Position Lying Pulse Oximetry 99 100 Oxygen Delivery Method 07/25/19 20:16 Temperature Temperature Source Sepsis Recent Fever Within 48 Hours Sepsis New/Unexplained Change in Mental Status Sepsis Action Taken by Nursing Pulse Rate 68 Pulse Rate from SpO2 Sensor 78 Pulse Rhythm Pulse Strength Respiratory Rate 18 Respiratory Effort / Characteristics Respiratory Depth Respiratory Pattern Blood Pressure Blood Pressure Mean Blood Pressure Position Pulse Oximetry 99 Oxygen Delivery Method GENERAL: The patient is awake and alert. He does not appear to be uncomfortable. EYES: The conjunctivae are clear. The pupils are round and reactive. EARS, NOSE, MOUTH AND THROAT: The nose is without any evidence of any deformity. Mucous membranes are moist tongue is midline NECK: The neck is nontender and supple. RESPIRATORY: Diminished breath sounds are noted throughout. There are rales in all lung garcia. Mild tachypnea was noted. CARDIOVASCULAR: Irregular rhythm was noted to auscultation. No definite murmur was noted. GASTROINTESTINAL: The abdomen is soft but distended. There is no tenderness guarding or rigidity noted. RECTAL: Dark stool which was strongly heme positive. MUSCULOSKELETAL/EXTREMITIES: There is no evidence of gross deformity full range of motion is noted in the hips and shoulders SKIN: There is no obvious evidence of any rash. Pedal edema was noted bilaterally. NEUROLOGIC: Patient is awake and oriented to person place and situation. Strength was symmetric but diminished. Course 1705: Past medical records reviewed. The patient was evaluated in room B9. A complete history and physical exam was performed. 1838: Discussed the patient's case with Dr. Neil, [facility]. The patient will be evaluated by her for further management. Administered Medications Furosemide 40 mg/ Syringe 4 mls @ 4 mls/min IV [id number] PAVAN Stop: 08/25/19 08:59 Last Admin: 07/26/19 09:10 Dose: 4 mls/min Documented by: [id number] Insulin Aspart (Novolog Flexpen) 0 units SC ACHS PAVAN Stop: 08/24/19 21:28 Last Admin: 07/26/19 12:26 Dose: Not Given Documented by: [id number] Cosigned by: [id number] Admin: 07/26/19 08:54 Dose: Not Given Documented by: [id number] Cosigned by: [id number] Admin: 07/25/19 22:31 Dose: Not Given Documented by: [id number] Cosigned by: [id number] Multivitamins (Multivitamin Tab) 1 tab PO QAM [facility] Stop: 08/25/19 08:59 Last Admin: 07/26/19 07:27 Dose: 1 tab Documented by: [id number] Rosuvastatin Calcium (Crestor) 20 mg PO QAM [facility] Stop: 08/25/19 08:59 Last Admin: 07/26/19 07:27 Dose: 20 mg Documented by: [id number] Sertraline HCl (Zoloft) 50 mg PO QAM [facility] Stop: 08/25/19 08:59 Last Admin: 07/26/19 07:27 Dose: 50 mg Documented by: [id number] Discontinued Medications Dextrose (Dextrose 50%) 50 ml IV NOW ONE Stop: 07/25/19 18:43 Last Admin: 07/25/19 19:32 Dose: 50 ml Documented by: [id number] Dextrose (Dextrose 50%) 50 ml IV NOW ONE Stop: 07/25/19 19:44 Last Admin: 07/25/19 20:45 Dose: 50 ml Documented by: [id number] Calcium Gluconate 1,000 mg/ (Sodium Chloride) 60 mls @ 240 mls/hr IV NOW STA Stop: 07/25/19 18:56 Last Infusion: 07/25/19 19:51 Dose: 0 mls/hr Documented by: [id number] Admin: 07/25/19 19:32 Dose: 240 mls/hr Documented by: [id number] Phytonadione 10 mg/ Sodium (Chloride) 51 mls @ 102 mls/hr IV NOW ONE Stop: 07/25/19 20:59 Last Infusion: 07/25/19 21:05 Dose: 0 mls/hr Documented by: [id number] Admin: 07/25/19 20:31 Dose: 102 mls/hr Documented by: [id number] Pantoprazole Sodium 40 mg/ (Syringe) 10 mls @ 5 mls/min IV NOW STA Stop: 07/25/19 20:18 Last Admin: 07/25/19 20:30 Dose: 5 mls/min Documented by: [id number] Pantoprazole Sodium 40 mg/ (Syringe) 10 mls @ 5 mls/min IV BID PAVAN Stop: 08/25/19 08:59 Last Admin: 07/26/19 09:11 Dose: 5 mls/min Documented by: [id number] Furosemide 80 mg/ Syringe 8 mls @ 4 mls/min IV TODAY@0000 ONE Stop: 07/26/19 00:01 Last Admin: 07/25/19 22:52 Dose: 4 mls/min Documented by: [id number] Insulin Human Regular (Novolin R U-100 Per Unit) 10 units IV NOW STA Stop: 07/25/19 18:43 Last Admin: 07/25/19 19:31 Dose: 10 units Documented by: [id number] Cosigned by: [id number] Medical Decision Making Differential Diagnosis Differential diagnosis: Etiologies such as metabolic, infection, hypo/hyperglycemia, electrolyte abnormalities, cardiac sources, intracerebral event, toxicologic, neurologic, as well as others were entertained. Medical Records Attestation: I reviewed the patient's medical records. Home Medications Current Medication List: was personally reviewed by me Laboratory Data Attestation: I reviewed the patient's lab results. Result diagrams: 07/26/19 11:42 07/26/19 06:50 Lab Results 07/25/19 07/25/19 07/25/19 Range/Units 17:00 17:00 17:06 WBC 6.98 (4.8-10.8) K/uL RBC 2.34 L (4.7-6.1) M/uL Hgb 6.7 L* (14.0-18.0) g/dL POC Hgb 7.8 L (14.0-18.0) g/dl Hct 21.9 L (42-52) % POC Hct 23 L (42-52) % MCV 93.6 (80-100) fL MCH 28.6 (25-34) pg MCHC 30.6 L (32-36) g/dL RDW Std Deviation 53.0 H (36.4-46.3) fL RDW Coeff of Dung 15.5 H (11.5-14.5) % Plt Count 157 (130-400) K/uL MPV 8.9 (7.4-10.4) fL Immature Gran % (Auto) 0.3 % Neut % (Auto) 61.8 % Lymph % (Auto) 17.0 % Benzie % (Auto) 16.0 % Eos % (Auto) 4.3 % Baso % (Auto) 0.6 % Immature Gran # (Auto) 0.02 (0.00-0.02) K/uL Neut # (Auto) 4.31 (1.4-6.5) K/uL Lymph # (Auto) 1.19 L (1.2-3.4) K/uL Benzie # (Auto) 1.12 H (0.11-0.59) K/uL Eos # (Auto) 0.30 (0-0.5) K/uL Baso # (Auto) 0.04 (0-0.2) K/uL Polychromasia 1+ Hypochromasia Present Basophilic Stippling 1+ Ovalocytes 1+ PT (9.0-12.0) Seconds INR (0.9-1.1) APTT (21.0-31.0) Seconds PTT Ratio POC Sodium 139 (135-144) mEq/L Sodium 140 (136-145) mmol/L POC Potassium 5.6 H (3.3-5.0) mEq/L Potassium 5.5 H (3.5-5.1) mmol/L POC Chloride 100 L (101-112) mEq/L Chloride 104 (98-107) mmol/L Carbon Dioxide 30 (21-32) mmol/L POC Total CO2 29 (24-31) mEq/l Anion Gap 6.0 (3-11) POC Anion Gap 17.0 (16-25) mmol/L POC BUN 91 H (7-18) mg/dl BUN 81 H (7-18) mg/dl Creatinine 3.01 H (0.6-1.4) mg/dl POC Creatinine 3.2 H (0.6-1.3) mg/dl Est Cr Clr Drug Dosing 20.2 ml/min Est GFR ( Amer) 21.6 Est GFR (Non-Af Amer) 18.7 BUN/Creatinine Ratio 26.9 H (10-20) Glucose 73 (70-99) mg/dl POC Glucose (70-99) POC Glucose (other) 71 (70-99) mg/dl Calcium 9.2 (8.5-10.1) mg/dl POC Ioniz Calcium Gina 1.15 (1.12-1.32) mmol/l Total Bilirubin 0.4 (0.2-1) mg/dl AST 19 (15-37) U/L ALT 16 (12-78) U/L Alkaline Phosphatase 86 (45-117) U/L Total Protein 7.3 (6.4-8.2) gm/dl Albumin 3.6 (3.4-5.0) gm/dl Globulin 3.7 (2.5-4.0) gm/dl Albumin/Globulin Ratio 1.0 (0.9-2) Urine Color Urine Appearance (Clear) Urine pH (4.5-7.5) Ur Specific [place] (1.000-1.030) Urine Protein (Negative) Urine Glucose (UA) (Negative) Urine Ketones (Negative) Urine Blood (Negative) Urine Nitrite (Negative) Urine Bilirubin (Negative) Urine Urobilinogen (Negative) Ur Leukocyte Esterase (Negative) Urine WBC (Auto) (0-5) /hpf Urine RBC (Auto) (0-4) /hpf U Hyaline Cast (Auto) (0-5) /lpf U Epithel Cells (Auto) (0-5) /lpf Urine Bacteria (Auto) (Negative) Blood Type Antibody Screen Crossmatch 07/25/19 07/25/19 07/25/19 Range/Units 18:04 18:44 18:44 WBC (4.8-10.8) K/uL RBC (4.7-6.1) M/uL Hgb (14.0-18.0) g/dL POC Hgb (14.0-18.0) g/dl Hct (42-52) % POC Hct (42-52) % MCV (80-100) fL MCH (25-34) pg MCHC (32-36) g/dL RDW Std Deviation (36.4-46.3) fL RDW Coeff of Dung (11.5-14.5) % Plt Count (130-400) K/uL MPV (7.4-10.4) fL Immature Gran % (Auto) % Neut % (Auto) % Lymph % (Auto) % Benzie % (Auto) % Eos % (Auto) % Baso % (Auto) % Immature Gran # (Auto) (0.00-0.02) K/uL Neut # (Auto) (1.4-6.5) K/uL Lymph # (Auto) (1.2-3.4) K/uL Benzie # (Auto) (0.11-0.59) K/uL Eos # (Auto) (0-0.5) K/uL Baso # (Auto) (0-0.2) K/uL Polychromasia Hypochromasia Basophilic Stippling Ovalocytes PT 38.0 H (9.0-12.0) Seconds INR 4.1 H (0.9-1.1) APTT 51.3 H* (21.0-31.0) Seconds PTT Ratio 1.9 POC Sodium (135-144) mEq/L Sodium (136-145) mmol/L POC Potassium (3.3-5.0) mEq/L Potassium (3.5-5.1) mmol/L POC Chloride (101-112) mEq/L Chloride (98-107) mmol/L Carbon Dioxide (21-32) mmol/L POC Total CO2 (24-31) mEq/l Anion Gap (3-11) POC Anion Gap (16-25) mmol/L POC BUN (7-18) mg/dl BUN (7-18) mg/dl Creatinine (0.6-1.4) mg/dl POC Creatinine (0.6-1.3) mg/dl Est Cr Clr Drug Dosing ml/min Est GFR ( Amer) Est GFR (Non-Af Amer) BUN/Creatinine Ratio (10-20) Glucose (70-99) mg/dl POC Glucose (70-99) POC Glucose (other) (70-99) mg/dl Calcium (8.5-10.1) mg/dl POC Ioniz Calcium Gina (1.12-1.32) mmol/l Total Bilirubin (0.2-1) mg/dl AST (15-37) U/L ALT (12-78) U/L Alkaline Phosphatase (45-117) U/L Total Protein (6.4-8.2) gm/dl Albumin (3.4-5.0) gm/dl Globulin (2.5-4.0) gm/dl Albumin/Globulin Ratio (0.9-2) Urine Color Yellow Urine Appearance Clear (Clear) Urine pH 7.5 (4.5-7.5) Ur Specific [place] 1.010 (1.000-1.030) Urine Protein Negative (Negative) Urine Glucose (UA) Negative (Negative) Urine Ketones Negative (Negative) Urine Blood Negative (Negative) Urine Nitrite Negative (Negative) Urine Bilirubin Negative (Negative) Urine Urobilinogen Negative (Negative) Ur Leukocyte Esterase Trace H (Negative) Urine WBC (Auto) 1-5 (0-5) /hpf Urine RBC (Auto) 0-4 (0-4) /hpf U Hyaline Cast (Auto) 0 (0-5) /lpf U Epithel Cells (Auto) 0-5 (0-5) /lpf Urine Bacteria (Auto) Negative (Negative) Blood Type A Positive Antibody Screen NEGATIVE Crossmatch See Detail 07/25/19 Range/Units 20:12 WBC (4.8-10.8) K/uL RBC (4.7-6.1) M/uL Hgb (14.0-18.0) g/dL POC Hgb (14.0-18.0) g/dl Hct (42-52) % POC Hct (42-52) % MCV (80-100) fL MCH (25-34) pg MCHC (32-36) g/dL RDW Std Deviation (36.4-46.3) fL RDW Coeff of Dung (11.5-14.5) % Plt Count (130-400) K/uL MPV (7.4-10.4) fL Immature Gran % (Auto) % Neut % (Auto) % Lymph % (Auto) % Benzie % (Auto) % Eos % (Auto) % Baso % (Auto) % Immature Gran # (Auto) (0.00-0.02) K/uL Neut # (Auto) (1.4-6.5) K/uL Lymph # (Auto) (1.2-3.4) K/uL Benzie # (Auto) (0.11-0.59) K/uL Eos # (Auto) (0-0.5) K/uL Baso # (Auto) (0-0.2) K/uL Polychromasia Hypochromasia Basophilic Stippling Ovalocytes PT (9.0-12.0) Seconds INR (0.9-1.1) APTT (21.0-31.0) Seconds PTT Ratio POC Sodium (135-144) mEq/L Sodium (136-145) mmol/L POC Potassium (3.3-5.0) mEq/L Potassium (3.5-5.1) mmol/L POC Chloride (101-112) mEq/L Chloride (98-107) mmol/L Carbon Dioxide (21-32) mmol/L POC Total CO2 (24-31) mEq/l Anion Gap (3-11) POC Anion Gap (16-25) mmol/L POC BUN (7-18) mg/dl BUN (7-18) mg/dl Creatinine (0.6-1.4) mg/dl POC Creatinine (0.6-1.3) mg/dl Est Cr Clr Drug Dosing ml/min Est GFR ( Amer) Est GFR (Non-Af Amer) BUN/Creatinine Ratio (10-20) Glucose (70-99) mg/dl POC Glucose 98 (70-99) POC Glucose (other) (70-99) mg/dl Calcium (8.5-10.1) mg/dl POC Ioniz Calcium Gina (1.12-1.32) mmol/l Total Bilirubin (0.2-1) mg/dl AST (15-37) U/L ALT (12-78) U/L Alkaline Phosphatase (45-117) U/L Total Protein (6.4-8.2) gm/dl Albumin (3.4-5.0) gm/dl Globulin (2.5-4.0) gm/dl Albumin/Globulin Ratio (0.9-2) Urine Color Urine Appearance (Clear) Urine pH (4.5-7.5) Ur Specific [place] (1.000-1.030) Urine Protein (Negative) Urine Glucose (UA) (Negative) Urine Ketones (Negative) Urine Blood (Negative) Urine Nitrite (Negative) Urine Bilirubin (Negative) Urine Urobilinogen (Negative) Ur Leukocyte Esterase (Negative) Urine WBC (Auto) (0-5) /hpf Urine RBC (Auto) (0-4) /hpf U Hyaline Cast (Auto) (0-5) /lpf U Epithel Cells (Auto) (0-5) /lpf Urine Bacteria (Auto) (Negative) Blood Type Antibody Screen Crossmatch Imaging Data Radiologist's Impression: Radiology results as stated below per my review and the radiologist's interpretation: XR chest 1V portable HISTORY: 79 years-old Male SOB acute shortness of breath COMPARISON: Chest radiograph 05/02/2019 TECHNIQUE: Portable AP view of the chest FINDINGS: Cardiac silhouette is enlarged, unchanged. Stable positioning of single lead left subclavian pacer/AICD. Chronic mild right hemidiaphragmatic elevation with minimal subsegmental bibasilar atelectasis. No pneumothorax, large pleural effusion or lobar airspace consolidation. Possible trace pleural effusions. Pulmonary vascular congestion with mild interstitial coarsening redemonstrated. Degenerative changes of the shoulders and spine. IMPRESSION: 1. Cardiomegaly with pulmonary vascular congestion and mild interstitial coarsening, possibly reflective of mild pulmonary edema. 2. Unchanged right hemidiaphragmatic elevation. 3. Probable trace pleural effusions. The above report was generated using voice recognition software. It may contain grammatical, syntax or spelling errors. Electronically signed by: Samy Lara M.D. 07/25/2019 5:30 PM ECG Data Attestation: I personally reviewed and interpreted this ECG as follows: Indication: other (abnormal labs) Rate (beats per minute): 70 Rhythm: atrial fibrillation Findings: + RBBB Comparison ECG Date: from (05/02/19) Blood Pressure Blood Pressure Findings: Elevated blood pressure Blood Pressure Disposition: further management by hospitalist AMANDA Wu The patient is an 79-year-old male who presented to the emergency department for abnormal chemistries. I am familiar with the patient he does have a past medical history for an acute kidney injury that one time he received dialysis. His kidneys rebounded well and the patient has not received dialysis since that time. 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 The patient was also found to have significant anemia in the emergency department. He has heme positive stool and his INR is elevated to 4.1 at this time. I discussed the patient's laboratory and radiographic studies with him. He was treated with blood transfusion. He was also treated for hyperkalemia with insulin dextrose and calcium. The patient was reevaluated multiple times. I discussed the patient's findings with him and his daughter. Ultimately [facility] have agreed to evaluate the patient in the emergency department for further management disposition. Impression & Plan Acute upper GI bleed, Anemia, Acute hyperkalemia, Renal insufficiency Critical Care Time Critical Care Time: Yes Total Critical Care Time: 60 I have personally spent greater than 60 minutes of critical care time in the direct management of this patient. This includes bedside care, interpretation of diagnostic studies, and testing, discussion with consultants, patient, and family members, and other required patient management activities. This 60 minutes is in excess of all separately billable procedures. Discharge Plan Visit Data *Final* Discharge Date/Time: 07/25/19 21:04 Chief Complaint: Abnormal Labs/Diagnostic Testing Stated Complaint: POTASSIUM VERY HIGH SENT BY ED Provider: Fercho English Discharge Problem: Acute upper GI bleed, Anemia, Acute hyperkalemia, Renal insufficiency Patient Disposition: Admitted As Inpatient Discharge Instructions Interventions: ED Discharge Assessment Last Done: 07/25/19 21:04 Discharge Problem: Anemia Qualifiers: Anemia type: unspecified type Qualified Code(s): D64.9 - Anemia, unspecified The scribe's documentation has been prepared under my direction and personally reviewed by me in its entirety. I confirm that the note above accurately reflects all work, treatment, procedures, and medical decision making performed by me.
[2019-07-25 17:40] LABS: Hematocrit (blood only) 21.9 % (42-52); Hemoglobin 6.7 g/dL (14.0-18.0); Mean Corpuscular Hgb Conc 30.6 g/dL (32-36); Mean Corpuscular Volume 93.6 fL (80-100); Mean Platelet Volume 8.9 fL (7.4-10.4); Platelet Count 157 K/uL (130-400); RDW Coefficient of Variation 15.5 % (11.5-14.5); Red Blood Count 2.34 M/uL (4.7-6.1); White Blood Count 6.98 K/uL (4.8-10.8)
[2019-07-25 17:45] LABS: Albumin Level 3.6 gm/dl (3.4-5.0); BUN Creatinine Ratio 26.9 (10-20); Calcium 9.2 mg/dl (8.5-10.1); Creatinine Clr Calc Pharmacy 20.2 ml/min; Est GFR (African American) 21.6; Est GFR (Non-African American) 18.7; Potassium 5.5 mmol/L (3.5-5.1)
[2019-07-25 17:47] LABS: Bilirubin,Total 0.4 mg/dl (0.2-1); Globulin 3.7 gm/dl (2.5-4.0); Total Protein 7.3 gm/dl (6.4-8.2)
[2019-07-25 17:56] LABS: Basophilic Stippling 1+; Basophils # (auto) 0.04 K/uL (0-0.2); Basophils % (auto) 0.6 %; Eosinophils % (auto) 4.3 %; Hypochromasia Present; Immature Granulocytes # (auto) 0.02 K/uL (0.00-0.02); Immature Granulocytes % (auto) 0.3 %; Lymphocytes # (auto) 1.19 K/uL (1.2-3.4); Monocytes # (auto) 1.12 K/uL (0.11-0.59); Neutrophils # (auto) 4.31 K/uL (1.4-6.5); Neutrophils % (auto) 61.8 %; Ovalocytes 1+; Polychromasia 1+
[2019-07-25] MEDS ORDERED: SODIUM CHLORIDE 0.9% 250 ML IV PRN ×2 (18:28→22:42)
[2019-07-25] MEDS ORDERED: DEXTROSE 50% 50 ML SYRINGE IV ONE ×2 (18:42→19:43)
[2019-07-25] MEDS ORDERED: CALCIUM GLUCONATE 10% 1,000 MG in SODIUM CHLORIDE 0.9% 50 ML IV STA (18:42)
[2019-07-25] MEDS ORDERED: NovoLIN-R INSULIN PER UNIT CHARGE IV STA (18:42)
[2019-07-25 18:44] LABS: Appearance Urine Clear (Clear); Bacteria Urine Automated Negative (Negative); Bilirubin Urine Negative (Negative); Blood Urine Negative (Negative); Cast Urine Automated 0 /lpf (0-5); Color Urine Yellow; Epithelial Cell Urine Auto 0-5 /lpf (0-5); Glucose Urine UA Negative (Negative); Ketones Urine Negative (Negative); Leukocyte Esterase Urine Trace (Negative); Nitrite Urine Negative (Negative); Protein Urine Negative (Negative); RBC Urine Automated 0-4 /hpf (0-4); Urobilinogen Urine Negative (Negative); pH Urine 7.5 (4.5-7.5)
[2019-07-25 19:28] LABS: Partial Thromboplastin Ratio 1.9
[2019-07-25] MEDS ORDERED: FUROSEMIDE 80 MG in SYRINGE 0 ML IV ONE (19:42)
[2019-07-25 19:43] LABS: Partial Thromboplastin Time 51.3 Seconds (21.0-31.0)
[2019-07-25 19:44] LABS: INR 4.1 (0.9-1.1)
--- NOTE | 2019-07-25 20:12 | History & Physical Report ---
Date of Service July 25, 2019 Assessment & Plan (1) UGIB (upper gastrointestinal bleed): Likely slow process in the setting of coumadin coagulopathy, oral iron intake Differentials include gastritis, PUD, varices (hx cirrhosis as per records) hx atrial fibrillation on anticoagulation, INR supratherapeutic Acute on chronic anemia secondary to above Hemoglobin drop from baseline Cardiorenal syndrome Progressive weight gain as per daughter over the last few weeks despite diuretic regimen changes chronic systolic heart failure secondary to ischemic cardiomyopathy (EF 40-45%) sp ICD placement CKD Some congestion on CXR Hyperkalemia secondary to CKD, outpatient potassium supplementation coronary artery disease status post stenting hx CVA as per records hypertension, BP stable hx CVA as per records hx RCCA, R sp ablation DM2 on oral medications. Well-controlled as of recent inpatient hemoglobin A1c of 6.2 last Past tobacco/alcohol abuse as per records Medical telemetry IV PPI Appropriate to hold antiplatelet, Coumadin for now Reverse coagulopathy with vitamin K Transfuse PRBC to maintain hemoglobin greater than 8 given CAD history GI consult RE GI bleed Lasix for pulmonary congestion Hold oral potassium supplement Nephrology consult RE CRI ISS BG goal 1 40-180, update hemoglobin A1c DVT prophylaxis. SCDs if INR less than 2 while Coumadin on hold RE GI bleed DNR Patient's daughter requesting updates from providers. Ms. Sara Betts, contact #[phone]. History of Present Illness Chief Complaint: Abnormal blood work Primary Care Provider: Shade Thomas MD History obtained from patient, family, and records. History somewhat limited from patient secondary to hearing impairment Medical history significant for chronic systolic heart failure secondary to ischemic cardiomyopathy (EF 40 to 45%, TTE 2018), hx VT sp ICD placement, hypertension, hyperlipidemia, coronary artery disease status post stenting, atrial fibrillation on anticoagulation, Cirrhosis as per records, CKD (baseline creatinine 3), chronic anemia (hemoglobin 9, DM2 on oral medications skin cancer sp surgery, past tobacco alcohol abuse as per records. Recent confinement February 2019 for respiratory failure secondary to flu pneumonia. The last few months, patient's daughter noted progressive weight gain/leg swelling despite diuretic regimen changes. Some shortness of breath on exertion as per daughter although patient never complains of anything. 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 Outpatient blood work today showed potassium of 6, INR 4.4. Patient directed to the emergency room. Hemoglobin noted to be 6.8. Heme positive dark stools noted on rectal exam by ER provider. Patient denies chest/abdominal pain. Usual orthopnea symptoms as per daughter. Calcium gluconate, IV insulin given for serum K of 5.5. 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 codeine Allergy Unknown GI SYMPTOMS Verified 07/25/19 17:54 promethazine [From Phenergan] AdvReac Severe severe Verified 07/25/19 17:54 fatigue BRIANA Inhibitors AdvReac Mild cough, Verified 07/25/19 17:54 cefuroxime AdvReac Mild GI SYMPTOMS Verified 07/25/19 17:54 Home Medications Home Medications Medication Instructions Recorded Confirmed Type clopidogrel [Plavix] 75 mg PO QAM 08/16/18 07/25/19 History coenzyme Q10 [Co Q-10] 10 mg PO QAM 08/16/18 07/25/19 History cyanocobalamin (vitamin B-12) 1,000 mcg PO QAM 08/16/18 07/25/19 History ferrous gluconate 324 mg PO QAM 08/16/18 07/25/19 History multivitamin [Multiple Vitamins] 1 tab PO QAM 08/16/18 07/25/19 History nitroglycerin [Nitrostat] 0.4 mg SUBLINGUAL UD PRN 08/16/18 07/25/19 History pantoprazole [Protonix] 40 mg PO QAM 08/16/18 07/25/19 History rosuvastatin [Crestor] 20 mg PO QAM 08/16/18 07/25/19 History sertraline 50 mg PO QAM 08/16/18 07/25/19 History glipizide 2.5 mg PO BID #30 tab 02/01/19 07/25/19 Rx potassium chloride [Klor-Con M20] 20 meq PO QAM #30 tab 02/03/19 07/25/19 Rx dextromethorphan-guaifenesin 1 tab PO Q12H PRN 03/17/19 07/25/19 History [Mucinex DM] testosterone 1 packet TRANSDERMAL DAILY 03/17/19 07/25/19 History warfarin 2.5 - 5 mg PO UD 03/17/19 07/25/19 History torsemide 40 mg PO DAILY 05/02/19 07/25/19 History Past Med/Surg History Medical History CKD (chronic kidney disease), stage IV (Chronic) Cirrhosis of liver (Chronic) Anticoagulant long-term use (Chronic) Ischemic cardiomyopathy (Chronic) DMII (diabetes mellitus, type 2) (Chronic) CAD (coronary artery disease) (Chronic) Pericardial effusion (Resolved) Anemia in chronic kidney disease (Chronic) SBP (spontaneous bacterial peritonitis) (Resolved) Depression (Chronic) HTN (hypertension) (Chronic) History of renal carcinoma (Chronic) Chronic systolic heart failure (Chronic) Ascites (Resolved) CAD (coronary artery disease) (Chronic) "2005 - PCI to LAD cath 2011 - no significant obstructive disease" CVA (cerebral vascular accident) (Chronic) Squamous cell carcinoma (Chronic) Basal cell carcinoma (Chronic) V tach (Chronic) "s/p AICD placement" Gross hematuria (Resolved) Surgical History History of prior ablation treatment (Chronic) CT guided tissue ablation R kidney S/P ICD (internal cardiac defibrillator) procedure (Chronic) History of cataract surgery (Chronic) Family History Father Coronary heart disease Mother Coronary heart disease Social History Preferred Language: Thai Communication Ability: Effective Visual Impairment: No 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 Beliefs That Will Affect Care: None marital status: Current Living Situation: Spouse and Family Other Information That Helps Us Care for You: No Feels Safe at Home: Yes Safety Concerns: Feels Safe At This Time Smoking Status: Never smoker Tobacco Type: cigarettes ; Second Hand Exposure: No ; Hx Alcohol Use: Yes Hx Substance Use: No Review of Systems Review of Systems: Somewhat limited due to hearing impairment Physical Exam Physical Exam: GENERAL: Comfortable, pleasant, slightly hard of hearing, looks younger for stated age, sent, occasionally has to catch his breath during speech SKIN: Pallor, warm HEENT: Pale palpebral conjunctivae, no ptosis, dry buccal mucosa NECK : Supple, no tenderness CHEST : Decreased breath sounds, no tenderness HEART : irregular, systolic murmur ABDOMEN: distention, nontender EXTREMITIES : Bilateral LE swelling, no LE tenderness, no other conspicuous deformities noted NEUROLOGIC : Coherent, no facial asymmetry, slightly hard of hearing, no other gross focality Results & Data Vital Signs (Past 12 Hours) Vital Signs Temp Pulse Resp BP Pulse Ox 07/25/19 19:30 71 15 148/73 H 96 07/25/19 19:00 71 15 95 07/25/19 18:30 71 18 98 07/25/19 18:05 78 25 H 100 07/25/19 17:51 71 17 123/65 95 07/25/19 17:36 72 15 123/65 97 07/25/19 17:02 67 20 132/81 97 07/25/19 16:49 36.5 C 72 20 120/71 93 Laboratory Results Laboratory Results WBC 6.98 K/uL (4.8-10.8) 07/25/19 17:00 RBC 2.34 M/uL (4.7-6.1) L 07/25/19 17:00 Hgb 6.7 g/dL (14.0-18.0) L* 07/25/19 17:00 POC Hgb 7.8 g/dl (14.0-18.0) L 07/25/19 17:06 Hct 21.9 % (42-52) L 07/25/19 17:00 POC Hct 23 % (42-52) L 07/25/19 17:06 MCV 93.6 fL (80-100) 07/25/19 17:00 MCH 28.6 pg (25-34) 07/25/19 17:00 MCHC 30.6 g/dL (32-36) L 07/25/19 17:00 RDW Std Deviation 53.0 fL (36.4-46.3) H 07/25/19 17:00 RDW Coeff of Dung 15.5 % (11.5-14.5) H 07/25/19 17:00 Plt Count 157 K/uL (130-400) 07/25/19 17:00 MPV 8.9 fL (7.4-10.4) 07/25/19 17:00 Immature Gran % (Auto) 0.3 % 07/25/19 17:00 Neut % (Auto) 61.8 % 07/25/19 17:00 Lymph % (Auto) 17.0 % 07/25/19 17:00 [place] % (Auto) 16.0 % 07/25/19 17:00 Eos % (Auto) 4.3 % 07/25/19 17:00 Baso % (Auto) 0.6 % 07/25/19 17:00 Immature Gran # (Auto) 0.02 K/uL (0.00-0.02) 07/25/19 17:00 Neut # (Auto) 4.31 K/uL (1.4-6.5) 07/25/19 17:00 Lymph # (Auto) 1.19 K/uL (1.2-3.4) L 07/25/19 17:00 [place] # (Auto) 1.12 K/uL (0.11-0.59) H 07/25/19 17:00 Eos # (Auto) 0.30 K/uL (0-0.5) 07/25/19 17:00 Baso # (Auto) 0.04 K/uL (0-0.2) 07/25/19 17:00 Polychromasia 1+ 07/25/19 17:00 Hypochromasia Present 07/25/19 17:00 Basophilic Stippling 1+ 07/25/19 17:00 Ovalocytes 1+ 07/25/19 17:00 PT 38.0 Seconds (9.0-12.0) H 07/25/19 18:44 INR 4.1 (0.9-1.1) H 07/25/19 18:44 APTT 51.3 Seconds (21.0-31.0) H* 07/25/19 18:44 PTT Ratio 1.9 07/25/19 18:44 POC Sodium 139 mEq/L (135-144) 07/25/19 17:06 Sodium 140 mmol/L (136-145) 07/25/19 17:00 POC Potassium 5.6 mEq/L (3.3-5.0) H 07/25/19 17:06 Potassium 5.5 mmol/L (3.5-5.1) H 07/25/19 17:00 POC Chloride 100 mEq/L (101-112) L 07/25/19 17:06 Chloride 104 mmol/L (98-107) 07/25/19 17:00 Carbon Dioxide 30 mmol/L (21-32) 07/25/19 17:00 POC Total CO2 29 mEq/l (24-31) 07/25/19 17:06 Anion Gap 6.0 (3-11) 07/25/19 17:00 POC Anion Gap 17.0 mmol/L (16-25) 07/25/19 17:06 POC BUN 91 mg/dl (7-18) H 07/25/19 17:06 BUN 81 mg/dl (7-18) H 07/25/19 17:00 Creatinine 3.01 mg/dl (0.6-1.4) H 07/25/19 17:00 POC Creatinine 3.2 mg/dl (0.6-1.3) H 07/25/19 17:06 Est Cr Clr Drug Dosing 20.2 ml/min 07/25/19 17:00 Est GFR ( Amer) 21.6 07/25/19 17:00 Est GFR (Non-Af Amer) 18.7 07/25/19 17:00 BUN/Creatinine Ratio 26.9 (10-20) H 07/25/19 17:00 Glucose 73 mg/dl (70-99) 07/25/19 17:00 POC Glucose (other) 71 mg/dl (70-99) 07/25/19 17:06 Calcium 9.2 mg/dl (8.5-10.1) 07/25/19 17:00 POC Ioniz Calcium Gina 1.15 mmol/l (1.12-1.32) 07/25/19 17:06 Total Bilirubin 0.4 mg/dl (0.2-1) 07/25/19 17:00 AST 19 U/L (15-37) 07/25/19 17:00 ALT 16 U/L (12-78) 07/25/19 17:00 Alkaline Phosphatase 86 U/L (45-117) 07/25/19 17:00 Total Protein 7.3 gm/dl (6.4-8.2) 07/25/19 17:00 Albumin 3.6 gm/dl (3.4-5.0) 07/25/19 17:00 Globulin 3.7 gm/dl (2.5-4.0) 07/25/19 17:00 Albumin/Globulin Ratio 1.0 (0.9-2) 07/25/19 17:00 Urine Color Yellow 07/25/19 18:04 Urine Appearance Clear (Clear) 07/25/19 18:04 Urine pH 7.5 (4.5-7.5) 07/25/19 18:04 Ur Specific [place] 1.010 (1.000-1.030) 07/25/19 18:04 Urine Protein Negative (Negative) 07/25/19 18:04 Urine Glucose (UA) Negative (Negative) 07/25/19 18:04 Urine Ketones Negative (Negative) 07/25/19 18:04 Urine Blood Negative (Negative) 07/25/19 18:04 Urine Nitrite Negative (Negative) 07/25/19 18:04 Urine Bilirubin Negative (Negative) 07/25/19 18:04 Urine Urobilinogen Negative (Negative) 07/25/19 18:04 Ur Leukocyte Esterase Trace (Negative) H 07/25/19 18:04 Urine WBC (Auto) 1-5 /hpf (0-5) 07/25/19 18:04 Urine RBC (Auto) 0-4 /hpf (0-4) 07/25/19 18:04 U Hyaline Cast (Auto) 0 /lpf (0-5) 07/25/19 18:04 U Epithel Cells (Auto) 0-5 /lpf (0-5) 07/25/19 18:04 Urine Bacteria (Auto) Negative (Negative) 07/25/19 18:04 Blood Type A Positive 07/25/19 18:44 Antibody Screen NEGATIVE 07/25/19 18:44 Crossmatch See Detail 07/25/19 18:44 Diagnostic Findings Chest x-ray : 1. Cardiomegaly with pulmonary vascular congestion and mild interstitial coarsening, possibly reflective of mild pulmonary edema. 2. Unchanged right hemidiaphragmatic elevation. 3. Probable trace pleural effusions. EKG as per my interpretation : Rate 70, A. fib, LAD, LAFB, RBBB, T wave fl attening/inversion inferior, anterolateral leads
[2019-07-25] MEDS ORDERED: PANTOprazole 40 MG in SYRINGE 0 ML IV STA (20:17)
[2019-07-25] MEDS ORDERED: FUROSEMIDE 40 MG/4 ML VIAL IV STA (20:17)
[2019-07-25] MEDS ORDERED: CONSULT PHARMACY PRN (20:18)
[2019-07-25] MEDS ORDERED: PHYTONADIONE 10 MG in SODIUM CHLORIDE 0.9% 50 ML IV ONE (20:30)
[2019-07-25] MEDS ORDERED: CARBOHYDRATES FOR HYPOGLYCEMIA PO PRN (21:29)
[2019-07-25] MEDS ORDERED: TRAMADOL HCL 50 MG TABLET PO PRN (21:29)
[2019-07-25] MEDS ORDERED: METOCLOPRAMIDE HCL INJ 5 MG/ML 2 ML VIAL IV PRN (21:29)
[2019-07-25] MEDS ORDERED: DEXTROSE 50% 50 ML SYRINGE IV PRN (21:29)
[2019-07-25] MEDS ORDERED: GLUCAGON FOR INJ 1 MG VIAL SQ PRN (21:29)
[2019-07-25] MEDS ORDERED: ACETAMINOPHEN 325 MG TAB PO PRN (21:29)
[2019-07-25] MEDS ORDERED: GLUCOSE 10 TABS/TUBE PO PRN (21:29)
[2019-07-25] MEDS ORDERED: GLUCOSE 40% GEL 15 GM TUBE PO PRN (21:29)
[2019-07-25] MEDS: INSULIN ASPART 100 UNITS/ML 3 ML PEN SC SCH (22:31)
--- NOTE | 2019-07-25 23:06 | Ultrasound Report ---
US abdomen ltd ascites HISTORY: 79 years-old Male abd distension acute abdominal pain with distention COMPARISON: CT abdomen and pelvis 02/02/2019 TECHNIQUE: Multiple real-time sonographic images of the abdomen were obtained assessing grayscale marisol earance FINDINGS/IMPRESSION: Small volume of abdominal pelvic ascites noted within all 4 quadrants of the abdomen. This finding ap pears to be unchanged from 02/02/2019. The above report was generated using voice recognition software. It may contain grammatical, syntax o r spelling errors. Electronically signed by: Samy Lara M.D. 07/25/2019 11:05 PM
[2019-07-26] MEDS ORDERED: FUROSEMIDE 80 MG in SYRINGE 0 ML IV ONE
[2019-07-26] MEDS: SERTRALINE HCL 50 MG TABLET PO SCH (07:27)
[2019-07-26] MEDS: ROSUVASTATIN CALCIUM 20 MG TAB PO SCH (07:27)
[2019-07-26] MEDS: MULTIVITAMIN TAB PO SCH (07:27)
[2019-07-26 07:29] LABS: Basophils # (auto) 0.03 K/uL (0-0.2); Basophils % (auto) 0.5 %; Eosinophils # (auto) 0.33 K/uL (0-0.5); Eosinophils % (auto) 5.4 %; Hematocrit (blood only) 24.3 % (42-52); Hemoglobin 7.8 g/dL (14.0-18.0); Immature Granulocytes # (auto) 0.01 K/uL (0.00-0.02); Immature Granulocytes % (auto) 0.2 %; Lymphocytes # (auto) 1.38 K/uL (1.2-3.4); Lymphocytes % (auto) 22.7 %; Mean Corpuscular Hgb Conc 32.1 g/dL (32-36); Mean Corpuscular Volume 91.4 fL (80-100); Mean Platelet Volume 9.4 fL (7.4-10.4); Monocytes # (auto) 0.98 K/uL (0.11-0.59); Monocytes % (auto) 16.1 %; Neutrophils # (auto) 3.35 K/uL (1.4-6.5); Neutrophils % (auto) 55.1 %; Platelet Count 139 K/uL (130-400); RDW Coefficient of Variation 16.7 % (11.5-14.5); RDW Standard Deviation 54.7 fL (36.4-46.3); Red Blood Count 2.66 M/uL (4.7-6.1); White Blood Count 6.08 K/uL (4.8-10.8)
[2019-07-26 07:38] LABS: Prothrombin Time 19.8 Seconds (9.0-12.0)
[2019-07-26 07:53] LABS: Basophilic Stippling 1+; Ovalocytes 1+; Polychromasia 1+
[2019-07-26 08:03] LABS: BUN Creatinine Ratio 25.9 (10-20); Calcium 9.2 mg/dl (8.5-10.1); Creatinine Clr Calc Pharmacy 19.9 ml/min; Est GFR (African American) 21.3; Est GFR (Non-African American) 18.4; Potassium 4.7 mmol/L (3.5-5.1)
--- NOTE | 2019-07-26 08:25 | Nephrology Consultation ---
Date of Consultation July 26, 2019 Assessment & Plan (1) Fluid overload: multifactorial from chronic systolic HF, from advanced CKD nearing ESRD, from need for transfusion, + /- liver cirrhosis -daily STANDING wt whenever possible -< 2 gm daily Na diet and 1.5 L FR when taking po -daily bmp -start lasix 40 mg IV bid 17 timed so as not to disrupt sleep; lower/gentler lasix dose for now given NPO status, active GI bleed, normotension Present on Admission?: Yes (2) Acute upper GI bleed: -transfuse prn -f/u GI recs Present on Admission?: Yes (3) Anemia: -transfuse prn and lasix prn w/ transfusion -d/t RCC hx, per heme note in EPIC January 2019 he is not a candidate for epogen or other ESAs -he was to f/u w/ heme early summer 2018 but has not >> asked in [facility] to get this scheduled and Present on Admission?: Yes (4) Acute hyperkalemia: resolved w/ medical therapy and medication adjustment but he is prone to this/ has had multiple admissions for same Present on Admission?: Yes (5) CKD (chronic kidney disease), stage IV: No indication at this time for urgent dialysis but will monitor closely. d/t insurance coverage, his AVF/ AVG cannot be placed by [facility] vascular team. He is preparing for in center HD. Renal function, chemistries for now acceptable, volume status less so - address as above. he has bland urine sediment. -daily bmp -FR and low Na as above -diuretics as above Present on Admission?: Yes History of Present Illness Reason for Consultation: CKD, volume overload Requesting Physician: Dr Alves Attending Physician: Mayi Neil MD History of Present Illness 79 y/o M whom I sent to ER last evening d/t K 6.0 on OP labs w/ advanced CKD was admitted after he was found to have significant volume OL w/ 30 lb wt gain, upper gi bleed. His presenting hgb was 6.8 w/ heme + stools, his K here was 5.5. I am asked to follow for fluid management in the setting of CKD 4/5. His creatinine this summer runs in high 2's- low 3's, most recently 3.1 for eGFR in mid to high teens. He is preparing for in center hemodialysis but does not yet have vascular access. Other PMH includes chronic ischemic heart failure EF 40- 45% on 2019 TTE and s/p ICD, HTN, HL, CAD s/p stent, AF on coumadin, liver cirrhosis, DM2, past EtOH abuse remotely, 11/2017 R kidney ablation of presumed clear cell CA, also hx of urethral stricture/ surgery. He had a CXR as OP on 06/23 that showed no pumlonary edema w/ a probable small R pleural effusion. As of 07/20 he had gained 16 lb since beginning of month according to home nursing records and was 181 lb on 07/20 am wt and 179 on 07/25 AM. To address this weight gain, his diuretics were intensified and K dose increased late last week. Plan on admission was to reverse INR (4.4), transfuse pRBC to maintain Hgb > 8, IV lasix w/ transfusion and to address volume OL, GI consultation. This AM he is on RA, 200 mL negative; no standing wts charted yet. Hgb is 7.8; INR 2, K 4.7, creatinine 3.1. he had one dose of 80 mg IV lasix; also in ER had 10 units IV insulin, ca gluconate. No standing diuretic dose currently. Pt daughter at bedside. Allergies Allergy/AdvReac Type Severity Reaction Status Date / Time fentanyl Allergy Severe Decreased Verified 07/25/19 17:54 oxygen saturation, low RR, unresponsive midazolam Allergy Severe Decreased Verified 07/25/19 17:54 oxygen saturation, low RR, unresponsive. codeine Allergy Unknown GI SYMPTOMS Verified 07/25/19 17:54 promethazine [From Phenergan] AdvReac Severe severe Verified 07/25/19 17:54 fatigue BRIANA Inhibitors AdvReac Mild cough, Verified 07/25/19 17:54 cefuroxime AdvReac Mild GI SYMPTOMS Verified 07/25/19 17:54 Home Medications Home Medications Medication Instructions Recorded Confirmed Type clopidogrel [Plavix] 75 mg PO QAM 08/16/18 07/25/19 History coenzyme Q10 [Co Q-10] 10 mg PO QAM 08/16/18 07/25/19 History cyanocobalamin (vitamin B-12) 1,000 mcg PO QAM 08/16/18 07/25/19 History ferrous gluconate 324 mg PO QAM 08/16/18 07/25/19 History multivitamin [Multiple Vitamins] 1 tab PO QAM 08/16/18 07/25/19 History nitroglycerin [Nitrostat] 0.4 mg SUBLINGUAL UD PRN 08/16/18 07/25/19 History pantoprazole [Protonix] 40 mg PO QAM 08/16/18 07/25/19 History rosuvastatin [Crestor] 20 mg PO QAM 08/16/18 07/25/19 History sertraline 50 mg PO QAM 08/16/18 07/25/19 History glipizide 2.5 mg PO BID #30 tab 02/01/19 07/25/19 Rx potassium chloride [Klor-Con M20] 20 meq PO QAM #30 tab 02/03/19 07/25/19 Rx dextromethorphan-guaifenesin 1 tab PO Q12H PRN 03/17/19 07/25/19 History [Mucinex DM] testosterone 1 packet TRANSDERMAL DAILY 03/17/19 07/25/19 History warfarin 2.5 - 5 mg PO UD 03/17/19 07/25/19 History torsemide 40 mg PO DAILY 05/02/19 07/25/19 History Patient History Medical History CKD (chronic kidney disease), stage IV (Chronic) Cirrhosis of liver (Chronic) Anticoagulant long-term use (Chronic) Ischemic cardiomyopathy (Chronic) DMII (diabetes mellitus, type 2) (Chronic) CAD (coronary artery disease) (Chronic) Pericardial effusion (Resolved) Anemia in chronic kidney disease (Chronic) SBP (spontaneous bacterial peritonitis) (Resolved) Depression (Chronic) HTN (hypertension) (Chronic) History of renal carcinoma (Chronic) Chronic systolic heart failure (Chronic) Ascites (Resolved) CAD (coronary artery disease) (Chronic) "2005 - PCI to LAD cath 2011 - no significant obstructive disease" CVA (cerebral vascular accident) (Chronic) Squamous cell carcinoma (Chronic) Basal cell carcinoma (Chronic) V tach (Chronic) "s/p AICD placement" Gross hematuria (Resolved) Surgical History History of prior ablation treatment (Chronic) CT guided tissue ablation R kidney S/P ICD (internal cardiac defibrillator) procedure (Chronic) History of cataract surgery (Chronic) Family History Father Coronary heart disease Mother Coronary heart disease Social History Preferred Language: [place] Communication Ability: Unable Visual Impairment: No Limitations [employer] Required: No Beliefs That Will Affect Care: None marital status: Current Living Situation: Spouse and Family Other Information That Helps Us Care for You: No Feels Safe at Home: Yes Safety Concerns: Feels Safe At This Time Smoking Status: Never smoker Tobacco Type: cigarettes ; Second Hand Exposure: No ; Hx Alcohol Use: Yes Hx Substance Use: No Review of Systems Review of Systems: All systems reviewed & are unremarkable except as noted in HPI & below Constitutional: as per Subjective / HPI and + weight gain; no fever, no fatigue, no malaise and no weakness Eyes: no worsening vision Ear, Nose, Mouth, Throat: no dry mouth Respiratory: no cough, no dyspnea and no dyspnea on exertion Cardiovascular: + edema; no chest pain, no dyspnea on exertion and no palpitations Additional Comments: daughter states he had "massive swelling" earlier in week Gastrointestinal: no abdominal pain, no cramping, no diarrhea/loose stools, no blood in stools and no melena Genitourinary: + urinary frequency, + urinary incontinence and + nocturia; no dysuria, no difficulty urinating and no hematuria Musculoskeletal: no myalgia and no muscle weakness Integumentary: no rash and no non-healing lesions Neurologic: no gait abnormality, no generalized weakness, no lack of coordination, no dizziness and no confusion Psychiatric: no behavioral changes Endocrine: + fatigue Hematologic / Lymphatic: no easy bleeding Physical Exam Constitutional: well developed, well nourished and cooperative [place], on RA in bed, maneuvers readily for exam Eyes: EOM intact bilaterally ENMT: Ears: no external ear abnormality Nose: no external nose abnormality Mouth: + dry oral mucous membranes Neck: no nuchal rigidity Respiratory: normal respiratory effort and + paradoxical thoraco-abdominal movement (slight) Auscultation: + breath sounds absent (BL bases) and + diminished lung sounds Cardiovascular: Rate/Rhythm: + irregularly irregular Heart Sounds: + murmur Extremities: + edema (1+ BLe) Gastrointestinal (Abdomen): Inspection/Auscultation: normal bowel sounds Percussion/Palpation: abdomen soft; abdomen nontender Musculoskeletal: Extremities: strength 5/5 throughout Skin: no rashes, warm and dry + pallor Neurologic: hoffman, fluent speech, no tremor Psychiatric: Orientation: alert and oriented x 3 Eye Contact: good eye contact Speech: normal rate/rhythm/volume of speech Affect: euthymic affect Insight: + limited insight Judgement: + limited judgement Genitourinary: no browning Results & Data Vital Signs (Past 12 Hours) Vital Signs Temp Pulse Pulse Resp BP BP Pulse Ox 07/26/19 07:09 36.9 C 74 17 117/69 97 07/26/19 02:44 36.6 C 63 16 108/56 L 90 07/26/19 01:48 36.7 C 60 20 123/70 94 07/26/19 00:45 36.5 C 75 20 130/78 92 07/26/19 00:15 36.5 C 70 20 124/68 95 07/26/19 00:00 36.4 C L 88 20 135/68 95 07/25/19 23:44 36.6 C 75 18 145/69 H 98 07/25/19 22:59 61 07/25/19 22:28 69 07/25/19 21:31 36.4 C L 72 18 144/73 H 93 07/25/19 21:16 36.5 C 80 18 145/71 H 92 07/25/19 21:10 72 17 96 07/25/19 21:04 77 19 144/74 H 99 07/25/19 21:00 75 16 144/74 H 98 07/25/19 20:50 69 19 96 07/25/19 20:46 36.4 C L 72 18 135/89 07/25/19 20:45 75 17 130/76 99 07/25/19 20:40 78 18 99 07/25/19 20:31 36.4 C L 83 17 130/76 98 07/25/19 20:30 83 17 134/65 97 07/25/19 20:26 72 18 129/85 96 07/25/19 20:25 79 17 07/25/19 20:20 36.7 C 76 19 135/79 07/25/19 20:16 68 18 99 07/25/19 20:14 36.5 C 82 19 144/80 H 100 07/25/19 20:10 71 20 99 07/25/19 20:05 72 17 07/25/19 20:01 80 20 140/65 07/25/19 20:00 70 20 Laboratory Results Abnormal lab results 07/25/19 07/25/19 07/25/19 Range/Units 17:00 17:00 17:06 RBC 2.34 L (4.7-6.1) M/uL Hgb 6.7 L* (14.0-18.0) g/dL POC Hgb 7.8 L (14.0-18.0) g/dl Hct 21.9 L (42-52) % POC Hct 23 L (42-52) % MCHC 30.6 L (32-36) g/dL RDW Std Deviation 53.0 H (36.4-46.3) fL RDW Coeff of Dung 15.5 H (11.5-14.5) % Lymph # (Auto) 1.19 L (1.2-3.4) K/uL [place] # (Auto) 1.12 H (0.11-0.59) K/uL PT (9.0-12.0) Seconds INR (0.9-1.1) APTT (21.0-31.0) Seconds POC Potassium 5.6 H (3.3-5.0) mEq/L Potassium 5.5 H (3.5-5.1) mmol/L POC Chloride 100 L (101-112) mEq/L POC BUN 91 H (7-18) mg/dl BUN 81 H (7-18) mg/dl Creatinine 3.01 H (0.6-1.4) mg/dl POC Creatinine 3.2 H (0.6-1.3) mg/dl BUN/Creatinine Ratio 26.9 H (10-20) Ur Leukocyte Esterase (Negative) Crossmatch 07/25/19 07/25/19 07/25/19 Range/Units 18:04 18:44 18:44 RBC (4.7-6.1) M/uL Hgb (14.0-18.0) g/dL POC Hgb (14.0-18.0) g/dl Hct (42-52) % POC Hct (42-52) % MCHC (32-36) g/dL RDW Std Deviation (36.4-46.3) fL RDW Coeff of Dung (11.5-14.5) % Lymph # (Auto) (1.2-3.4) K/uL [place] # (Auto) (0.11-0.59) K/uL PT 38.0 H (9.0-12.0) Seconds INR 4.1 H (0.9-1.1) APTT 51.3 H* (21.0-31.0) Seconds POC Potassium (3.3-5.0) mEq/L Potassium (3.5-5.1) mmol/L POC Chloride (101-112) mEq/L POC BUN (7-18) mg/dl BUN (7-18) mg/dl Creatinine (0.6-1.4) mg/dl POC Creatinine (0.6-1.3) mg/dl BUN/Creatinine Ratio (10-20) Ur Leukocyte Esterase Trace H (Negative) Crossmatch See Detail 07/26/19 07/26/19 07/26/19 Range/Units 06:50 06:50 06:50 RBC 2.66 L (4.7-6.1) M/uL Hgb 7.8 L (14.0-18.0) g/dL POC Hgb (14.0-18.0) g/dl Hct 24.3 L (42-52) % POC Hct (42-52) % MCHC (32-36) g/dL RDW Std Deviation 54.7 H (36.4-46.3) fL RDW Coeff of Dung 16.7 H (11.5-14.5) % Lymph # (Auto) (1.2-3.4) K/uL [place] # (Auto) 0.98 H (0.11-0.59) K/uL PT 19.8 H (9.0-12.0) Seconds INR 2.0 H (0.9-1.1) APTT (21.0-31.0) Seconds POC Potassium (3.3-5.0) mEq/L Potassium (3.5-5.1) mmol/L POC Chloride (101-112) mEq/L POC BUN (7-18) mg/dl BUN 79 H (7-18) mg/dl Creatinine 3.05 H (0.6-1.4) mg/dl POC Creatinine (0.6-1.3) mg/dl BUN/Creatinine Ratio 25.9 H (10-20) Ur Leukocyte Esterase (Negative) Crossmatch Diagnostic Findings cxr 1. Cardiomegaly with pulmonary vascular congestion and mild interstitial coarsening, possibly reflective of mild pulmonary edema. 2. Unchanged right hemidiaphragmatic elevation. 3. Probable trace pleural effusions. abd u/s > small ascites (1) Anemia Anemia type: unspecified type Qualified Code(s): D64.9 - Anemia, unspecified (2) Fluid overload Hypervolemia type: other Qualified Code(s): E87.79 - Other fluid overload
[2019-07-26] MEDS: INSULIN ASPART 100 UNITS/ML 3 ML PEN SC SCH ×4 (08:54→21:05)
--- NOTE | 2019-07-26 08:56 | Gastrointestinal Consultation ---
Date of Consultation July 26, 2019 Assessment & Plan (1) Fluid overload: 79 year old male with history of CHF (EF 20-25%), afib on coumadin, CAD s/p stenting, s/p pacer defibrillator, renal CA s/p cryoablation, T2DM, MAXX, CKD, cirrhosis admitted w/ acute on chronic anemia and fluid overload w/ report of 20lb weight gain. He is having semi-formed brown stools but was noted to be heme + in the ED on rectal exam. Acute on Chronic Anemia in the setting of elevated INR - Heme + stools in the ED - Stable vital signs - HGB 6.7 from baseline 06/30 - S/P RBC x 2 unit w/ appropriate response - No S/S of acute GI bleeding - Recommend PO PPI 40 BID - No GI contraindication for clear liquid diet today as he is not a candidate for endoscopy given elevated INR - Trend HGB - Monitor and document all GI output - Can make NPO after midnight to re-evaluate in the AM Fluid overload in the setting of CHF, cirrhosis, CKD - Daily weights - Low NA diet, less than 2G - Fluid restriction per nephrology - Agree w/ diuresis per nephrology recommendation - IV Lasix as ordered Cirrhosis Management - MELD labs - HCC screen due now - No ETOH - Low NA diet, less than 2G - Less than 2G tylenol if using - Fluid restriction per nephrology Thank you for allowing us to participate in the care of this patient. Please call with any acute changes, questions or concerns. Please see addendum below with additional recommendation from my supervising physician. Present on Admission?: Yes Supervising Physician Co-Signing Physician Notes Attending attestation I have seen, examined this patient, and agree with the findings and above by our mid-level provider PADMINI Donato, with the following additions -Admitted with hyperkalemia from the office as well as volume overload with a noted 30 pound weight gain recently. No signs of GI bleeding but is heme positive with a supratherapeutic INR of greater than 4. Denies melena, hematochezia, hematemesis. Feels well and is without complaint. Discussed and explained the evaluation in which really would be both an EGD as well as colonoscopy, he states that he does not want to prep for colonoscopy and or undergo any anesthesia if it can be avoided. Given his INR today and his reluctance, as well as lack of GI bleeding, would treat supportively, if changes his mind is certain we will readdress. As well as if any signs of any acute bleeding is noted. -Okay for liquid breakfast please call with any questions History of Present Illness Reason for Consultation: UGI bleed Requesting Physician: Rashaad Attending Physician: Mayi Neil MD History of Present Illness 79 year old male with history of CHF (EF 20-25%), afib on coumadin, CAD s/p stenting, s/p pacer defibrillator, renal CA s/p cryoablation, T2DM, MAXX, CKD, cirrhosis and others who presented to the ED for abnormal labs at the request of nephrology - GI was asked to evaluate the pt for acute on chronic anemia. Pt was seen and evaluated, chart reviewed. He is awake, alert and oriented answering questions appropriately. He denies any change in his bowel function. No black or bloody stools. No abdominal pain. No nausea, vomiting or prior episodes of coffee ground emesis or hematemesis. He has good appetite, hungry this AM. Wants to eat and requesting to go home. Does suggest that he has had worsening lower extremity edema but this has been improving on diuretics. Denies any confusion. No fever, chills, CP, SOB. Diagnosis: congestive hepatopathy/ETOH cirrhosis sober since age 44 Decompensations Varices: unknown Ascites: yes, on lasix 60 and aldactone 25 SBP: yes, treated 08/17/18 Screenings: MELD: due HCC: due in November Varices: due Immunizations: unknown EGD/Colon 2012: HH, gastritis, 6 mm splenic flexure polyp, diverticulosis VCE 2012: normal ABD US 08/10: Small volume of abdominal pelvic ascites noted within all 4 quadrants of the abdomen. This finding appears to be unchanged from 02/02/2019 CT 08/09: Cirrhotic liver morphology. There is a moderate volume of abdominopelvic ascites, new from 10/28/2017. Advanced colonic diverticulosis without CT evidence of acute diverticulitis. A left inguinal hernia contains fluid and a nonobstructed segment of the sigmoid colon. Marked cardiomegaly and trace left pleural effusion. A 3.0 cm complex lesion is again seen in the interpolar right kidney. This remains typical in appearance for renal cell carcinoma. CT 03/09: reflux into the intrahepatic veins compatable with right heart strain Allergies Allergy/AdvReac Type Severity Reaction Status Date / Time fentanyl Allergy Severe Decreased Verified 07/25/19 17:54 oxygen saturation, low RR, unresponsive midazolam Allergy Severe Decreased Verified 07/25/19 17:54 oxygen saturation, low RR, unresponsive. codeine Allergy Unknown GI SYMPTOMS Verified 07/25/19 17:54 promethazine [From Phenergan] AdvReac Severe severe Verified 07/25/19 17:54 fatigue BRIANA Inhibitors AdvReac Mild cough, Verified 07/25/19 17:54 cefuroxime AdvReac Mild GI SYMPTOMS Verified 07/25/19 17:54 Home Medications Home Medications Medication Instructions Recorded Confirmed Type clopidogrel [Plavix] 75 mg PO QAM 08/16/18 07/25/19 History coenzyme Q10 [Co Q-10] 10 mg PO QAM 08/16/18 07/25/19 History cyanocobalamin (vitamin B-12) 1,000 mcg PO QAM 08/16/18 07/25/19 History ferrous gluconate 324 mg PO QAM 08/16/18 07/25/19 History multivitamin [Multiple Vitamins] 1 tab PO QAM 08/16/18 07/25/19 History nitroglycerin [Nitrostat] 0.4 mg SUBLINGUAL UD PRN 08/16/18 07/25/19 History pantoprazole [Protonix] 40 mg PO QAM 08/16/18 07/25/19 History rosuvastatin [Crestor] 20 mg PO QAM 08/16/18 07/25/19 History sertraline 50 mg PO QAM 08/16/18 07/25/19 History glipizide 2.5 mg PO BID #30 tab 02/01/19 07/25/19 Rx potassium chloride [Klor-Con M20] 20 meq PO QAM #30 tab 02/03/19 07/25/19 Rx dextromethorphan-guaifenesin 1 tab PO Q12H PRN 03/17/19 07/25/19 History [Mucinex DM] testosterone 1 packet TRANSDERMAL DAILY 03/17/19 07/25/19 History warfarin 2.5 - 5 mg PO UD 03/17/19 07/25/19 History torsemide 40 mg PO DAILY 05/02/19 07/25/19 History Patient History Medical History CKD (chronic kidney disease), stage IV (Chronic) Cirrhosis of liver (Chronic) Anticoagulant long-term use (Chronic) Ischemic cardiomyopathy (Chronic) DMII (diabetes mellitus, type 2) (Chronic) CAD (coronary artery disease) (Chronic) Pericardial effusion (Resolved) Anemia in chronic kidney disease (Chronic) SBP (spontaneous bacterial peritonitis) (Resolved) Depression (Chronic) HTN (hypertension) (Chronic) History of renal carcinoma (Chronic) Chronic systolic heart failure (Chronic) Ascites (Resolved) CAD (coronary artery disease) (Chronic) "2005 - PCI to LAD cath 2011 - no significant obstructive disease" CVA (cerebral vascular accident) (Chronic) Squamous cell carcinoma (Chronic) Basal cell carcinoma (Chronic) V tach (Chronic) "s/p AICD placement" Gross hematuria (Resolved) Surgical History History of prior ablation treatment (Chronic) CT guided tissue ablation R kidney S/P ICD (internal cardiac defibrillator) procedure (Chronic) History of cataract surgery (Chronic) Family History Father Coronary heart disease Mother Coronary heart disease Social History Preferred Language: Georgian Communication Ability: Effective Visual Impairment: No Limitations [employer] Driver Required: No Beliefs That Will Affect Care: None marital status: Current Living Situation: Spouse and Family Other Information That Helps Us Care for You: No Feels Safe at Home: Yes Safety Concerns: Feels Safe At This Time Smoking Status: Never smoker Tobacco Type: cigarettes ; Second Hand Exposure: No ; Hx Alcohol Use: Yes Hx Substance Use: No Review of Systems Constitutional: no fever, no chills and no fatigue Respiratory: no cough, no dyspnea and no wheezing Cardiovascular: no chest pain, no radiating jaw, neck or arm pain and no dyspnea on exertion Gastrointestinal: no abdominal pain, no coffee ground emesis, no hematemesis, no blood in stools and no melena Physical Exam Constitutional: WD/WN, vitals as above no acute distress Neck: trachea midline Respiratory: normal respiratory effort, lungs clear to auscultation Cardiovascular: Rate/Rhythm: regular rate and regular rhythm Heart Sounds: + murmur Extremities: + edema (bilateral lower extremity) Skin: no rashes, warm and dry Results & Data Vital Signs (Past 12 Hours) Vital Signs Temp Pulse Pulse Resp BP BP Pulse Ox 07/26/19 07:09 36.9 C 74 17 117/69 97 07/26/19 02:44 36.6 C 63 16 108/56 L 90 07/26/19 01:48 36.7 C 60 20 123/70 94 07/26/19 00:45 36.5 C 75 20 130/78 92 07/26/19 00:15 36.5 C 70 20 124/68 95 07/26/19 00:00 36.4 C L 88 20 135/68 95 07/25/19 23:44 36.6 C 75 18 145/69 H 98 07/25/19 22:59 61 07/25/19 22:28 69 07/25/19 21:31 36.4 C L 72 18 144/73 H 93 07/25/19 21:16 36.5 C 80 18 145/71 H 92 07/25/19 21:10 72 17 96 07/25/19 21:04 77 19 144/74 H 99 07/25/19 21:00 75 16 144/74 H 98 Laboratory Results 07/26/19 07/26/19 07/26/19 Range/Units 06:54 06:50 06:50 WBC (4.8-10.8) K/uL RBC (4.7-6.1) M/uL Hgb (14.0-18.0) g/dL POC Hgb (14.0-18.0) g/dl Hct (42-52) % POC Hct (42-52) % MCV (80-100) fL MCH (25-34) pg MCHC (32-36) g/dL RDW Std Deviation (36.4-46.3) fL RDW Coeff of Dung (11.5-14.5) % Plt Count (130-400) K/uL MPV (7.4-10.4) fL Immature Gran % (Auto) % Neut % (Auto) % Lymph % (Auto) % [place] % (Auto) % Eos % (Auto) % Baso % (Auto) % Immature Gran # (Auto) (0.00-0.02) K/uL Neut # (Auto) (1.4-6.5) K/uL Lymph # (Auto) (1.2-3.4) K/uL [place] # (Auto) (0.11-0.59) K/uL Eos # (Auto) (0-0.5) K/uL Baso # (Auto) (0-0.2) K/uL Polychromasia Hypochromasia Basophilic Stippling Ovalocytes PT 19.8 H (9.0-12.0) Seconds INR 2.0 H (0.9-1.1) APTT (21.0-31.0) Seconds PTT Ratio POC Sodium (135-144) mEq/L Sodium 142 (136-145) mmol/L POC Potassium (3.3-5.0) mEq/L Potassium 4.7 (3.5-5.1) mmol/L POC Chloride (101-112) mEq/L Chloride 106 (98-107) mmol/L Carbon Dioxide 30 (21-32) mmol/L POC Total CO2 (24-31) mEq/l Anion Gap 6.0 (3-11) POC Anion Gap (16-25) mmol/L POC BUN (7-18) mg/dl BUN 79 H (7-18) mg/dl Creatinine 3.05 H (0.6-1.4) mg/dl POC Creatinine (0.6-1.3) mg/dl Est Cr Clr Drug Dosing 19.9 ml/min Est GFR ( Amer) 21.3 Est GFR (Non-Af Amer) 18.4 BUN/Creatinine Ratio 25.9 H (10-20) Glucose 73 (70-99) mg/dl POC Glucose 84 (70-99) POC Glucose (other) (70-99) mg/dl Calcium 9.2 (8.5-10.1) mg/dl POC Ioniz Calcium Gina (1.12-1.32) mmol/l Total Bilirubin (0.2-1) mg/dl AST (15-37) U/L ALT (12-78) U/L Alkaline Phosphatase (45-117) U/L Total Protein (6.4-8.2) gm/dl Albumin (3.4-5.0) gm/dl Globulin (2.5-4.0) gm/dl Albumin/Globulin Ratio (0.9-2) Urine Color Urine Appearance (Clear) Urine pH (4.5-7.5) Ur Specific Damar (1.000-1.030) Urine Protein (Negative) Urine Glucose (UA) (Negative) Urine Ketones (Negative) Urine Blood (Negative) Urine Nitrite (Negative) Urine Bilirubin (Negative) Urine Urobilinogen (Negative) Ur Leukocyte Esterase (Negative) Urine WBC (Auto) (0-5) /hpf Urine RBC (Auto) (0-4) /hpf U Hyaline Cast (Auto) (0-5) /lpf U Epithel Cells (Auto) (0-5) /lpf Urine Bacteria (Auto) (Negative) Blood Type Antibody Screen Crossmatch 07/26/19 07/26/19 07/25/19 Range/Units 06:50 00:11 22:07 WBC 6.08 (4.8-10.8) K/uL RBC 2.66 L (4.7-6.1) M/uL Hgb 7.8 L (14.0-18.0) g/dL POC Hgb (14.0-18.0) g/dl Hct 24.3 L (42-52) % POC Hct (42-52) % MCV 91.4 (80-100) fL MCH 29.3 (25-34) pg MCHC 32.1 (32-36) g/dL RDW Std Deviation 54.7 H (36.4-46.3) fL RDW Coeff of Dung 16.7 H (11.5-14.5) % Plt Count 139 (130-400) K/uL MPV 9.4 (7.4-10.4) fL Immature Gran % (Auto) 0.2 % Neut % (Auto) 55.1 % Lymph % (Auto) 22.7 % [place] % (Auto) 16.1 % Eos % (Auto) 5.4 % Baso % (Auto) 0.5 % Immature Gran # (Auto) 0.01 (0.00-0.02) K/uL Neut # (Auto) 3.35 (1.4-6.5) K/uL Lymph # (Auto) 1.38 (1.2-3.4) K/uL [place] # (Auto) 0.98 H (0.11-0.59) K/uL Eos # (Auto) 0.33 (0-0.5) K/uL Baso # (Auto) 0.03 (0-0.2) K/uL Polychromasia 1+ Hypochromasia Basophilic Stippling 1+ Ovalocytes 1+ PT (9.0-12.0) Seconds INR (0.9-1.1) APTT (21.0-31.0) Seconds PTT Ratio POC Sodium (135-144) mEq/L Sodium (136-145) mmol/L POC Potassium (3.3-5.0) mEq/L Potassium (3.5-5.1) mmol/L POC Chloride (101-112) mEq/L Chloride (98-107) mmol/L Carbon Dioxide (21-32) mmol/L POC Total CO2 (24-31) mEq/l Anion Gap (3-11) POC Anion Gap (16-25) mmol/L POC BUN (7-18) mg/dl BUN (7-18) mg/dl Creatinine (0.6-1.4) mg/dl POC Creatinine (0.6-1.3) mg/dl Est Cr Clr Drug Dosing ml/min Est GFR ( Amer) Est GFR (Non-Af Amer) BUN/Creatinine Ratio (10-20) Glucose (70-99) mg/dl POC Glucose 88 79 (70-99) POC Glucose (other) (70-99) mg/dl Calcium (8.5-10.1) mg/dl POC Ioniz Calcium Gina (1.12-1.32) mmol/l Total Bilirubin (0.2-1) mg/dl AST (15-37) U/L ALT (12-78) U/L Alkaline Phosphatase (45-117) U/L Total Protein (6.4-8.2) gm/dl Albumin (3.4-5.0) gm/dl Globulin (2.5-4.0) gm/dl Albumin/Globulin Ratio (0.9-2) Urine Color Urine Appearance (Clear) Urine pH (4.5-7.5) Ur Specific Damar (1.000-1.030) Urine Protein (Negative) Urine Glucose (UA) (Negative) Urine Ketones (Negative) Urine Blood (Negative) Urine Nitrite (Negative) Urine Bilirubin (Negative) Urine Urobilinogen (Negative) Ur Leukocyte Esterase (Negative) Urine WBC (Auto) (0-5) /hpf Urine RBC (Auto) (0-4) /hpf U Hyaline Cast (Auto) (0-5) /lpf U Epithel Cells (Auto) (0-5) /lpf Urine Bacteria (Auto) (Negative) Blood Type Antibody Screen Crossmatch 07/25/19 07/25/19 07/25/19 Range/Units 20:12 18:44 18:44 WBC (4.8-10.8) K/uL RBC (4.7-6.1) M/uL Hgb (14.0-18.0) g/dL POC Hgb (14.0-18.0) g/dl Hct (42-52) % POC Hct (42-52) % MCV (80-100) fL MCH (25-34) pg MCHC (32-36) g/dL RDW Std Deviation (36.4-46.3) fL RDW Coeff of Dung (11.5-14.5) % Plt Count (130-400) K/uL MPV (7.4-10.4) fL Immature Gran % (Auto) % Neut % (Auto) % Lymph % (Auto) % [place] % (Auto) % Eos % (Auto) % Baso % (Auto) % Immature Gran # (Auto) (0.00-0.02) K/uL Neut # (Auto) (1.4-6.5) K/uL Lymph # (Auto) (1.2-3.4) K/uL [place] # (Auto) (0.11-0.59) K/uL Eos # (Auto) (0-0.5) K/uL Baso # (Auto) (0-0.2) K/uL Polychromasia Hypochromasia Basophilic Stippling Ovalocytes PT 38.0 H (9.0-12.0) Seconds INR 4.1 H (0.9-1.1) APTT 51.3 H* (21.0-31.0) Seconds PTT Ratio 1.9 POC Sodium (135-144) mEq/L Sodium (136-145) mmol/L POC Potassium (3.3-5.0) mEq/L Potassium (3.5-5.1) mmol/L POC Chloride (101-112) mEq/L Chloride (98-107) mmol/L Carbon Dioxide (21-32) mmol/L POC Total CO2 (24-31) mEq/l Anion Gap (3-11) POC Anion Gap (16-25) mmol/L POC BUN (7-18) mg/dl BUN (7-18) mg/dl Creatinine (0.6-1.4) mg/dl POC Creatinine (0.6-1.3) mg/dl Est Cr Clr Drug Dosing ml/min Est GFR ( Amer) Est GFR (Non-Af Amer) BUN/Creatinine Ratio (10-20) Glucose (70-99) mg/dl POC Glucose 98 (70-99) POC Glucose (other) (70-99) mg/dl Calcium (8.5-10.1) mg/dl POC Ioniz Calcium Gina (1.12-1.32) mmol/l Total Bilirubin (0.2-1) mg/dl AST (15-37) U/L ALT (12-78) U/L Alkaline Phosphatase (45-117) U/L Total Protein (6.4-8.2) gm/dl Albumin (3.4-5.0) gm/dl Globulin (2.5-4.0) gm/dl Albumin/Globulin Ratio (0.9-2) Urine Color Urine Appearance (Clear) Urine pH (4.5-7.5) Ur Specific Damar (1.000-1.030) Urine Protein (Negative) Urine Glucose (UA) (Negative) Urine Ketones (Negative) Urine Blood (Negative) Urine Nitrite (Negative) Urine Bilirubin (Negative) Urine Urobilinogen (Negative) Ur Leukocyte Esterase (Negative) Urine WBC (Auto) (0-5) /hpf Urine RBC (Auto) (0-4) /hpf U Hyaline Cast (Auto) (0-5) /lpf U Epithel Cells (Auto) (0-5) /lpf Urine Bacteria (Auto) (Negative) Blood Type A Positive Antibody Screen NEGATIVE Crossmatch See Detail 07/25/19 07/25/19 07/25/19 Range/Units 18:04 17:06 17:00 WBC (4.8-10.8) K/uL RBC (4.7-6.1) M/uL Hgb (14.0-18.0) g/dL POC Hgb 7.8 L (14.0-18.0) g/dl Hct (42-52) % POC Hct 23 L (42-52) % MCV (80-100) fL MCH (25-34) pg MCHC (32-36) g/dL RDW Std Deviation (36.4-46.3) fL RDW Coeff of Dung (11.5-14.5) % Plt Count (130-400) K/uL MPV (7.4-10.4) fL Immature Gran % (Auto) % Neut % (Auto) % Lymph % (Auto) % [place] % (Auto) % Eos % (Auto) % Baso % (Auto) % Immature Gran # (Auto) (0.00-0.02) K/uL Neut # (Auto) (1.4-6.5) K/uL Lymph # (Auto) (1.2-3.4) K/uL [place] # (Auto) (0.11-0.59) K/uL Eos # (Auto) (0-0.5) K/uL Baso # (Auto) (0-0.2) K/uL Polychromasia Hypochromasia Basophilic Stippling Ovalocytes PT (9.0-12.0) Seconds INR (0.9-1.1) APTT (21.0-31.0) Seconds PTT Ratio POC Sodium 139 (135-144) mEq/L Sodium 140 (136-145) mmol/L POC Potassium 5.6 H (3.3-5.0) mEq/L Potassium 5.5 H (3.5-5.1) mmol/L POC Chloride 100 L (101-112) mEq/L Chloride 104 (98-107) mmol/L Carbon Dioxide 30 (21-32) mmol/L POC Total CO2 29 (24-31) mEq/l Anion Gap 6.0 (3-11) POC Anion Gap 17.0 (16-25) mmol/L POC BUN 91 H (7-18) mg/dl BUN 81 H (7-18) mg/dl Creatinine 3.01 H (0.6-1.4) mg/dl POC Creatinine 3.2 H (0.6-1.3) mg/dl Est Cr Clr Drug Dosing 20.2 ml/min Est GFR ( Amer) 21.6 Est GFR (Non-Af Amer) 18.7 BUN/Creatinine Ratio 26.9 H (10-20) Glucose 73 (70-99) mg/dl POC Glucose (70-99) POC Glucose (other) 71 (70-99) mg/dl Calcium 9.2 (8.5-10.1) mg/dl POC Ioniz Calcium Gina 1.15 (1.12-1.32) mmol/l Total Bilirubin 0.4 (0.2-1) mg/dl AST 19 (15-37) U/L ALT 16 (12-78) U/L Alkaline Phosphatase 86 (45-117) U/L Total Protein 7.3 (6.4-8.2) gm/dl Albumin 3.6 (3.4-5.0) gm/dl Globulin 3.7 (2.5-4.0) gm/dl Albumin/Globulin Ratio 1.0 (0.9-2) Urine Color Yellow Urine Appearance Clear (Clear) Urine pH 7.5 (4.5-7.5) Ur Specific Damar 1.010 (1.000-1.030) Urine Protein Negative (Negative) Urine Glucose (UA) Negative (Negative) Urine Ketones Negative (Negative) Urine Blood Negative (Negative) Urine Nitrite Negative (Negative) Urine Bilirubin Negative (Negative) Urine Urobilinogen Negative (Negative) Ur Leukocyte Esterase Trace H (Negative) Urine WBC (Auto) 1-5 (0-5) /hpf Urine RBC (Auto) 0-4 (0-4) /hpf U Hyaline Cast (Auto) 0 (0-5) /lpf U Epithel Cells (Auto) 0-5 (0-5) /lpf Urine Bacteria (Auto) Negative (Negative) Blood Type Antibody Screen Crossmatch 07/25/19 Range/Units 17:00 WBC 6.98 (4.8-10.8) K/uL RBC 2.34 L (4.7-6.1) M/uL Hgb 6.7 L* (14.0-18.0) g/dL POC Hgb (14.0-18.0) g/dl Hct 21.9 L (42-52) % POC Hct (42-52) % MCV 93.6 (80-100) fL MCH 28.6 (25-34) pg MCHC 30.6 L (32-36) g/dL RDW Std Deviation 53.0 H (36.4-46.3) fL RDW Coeff of Dung 15.5 H (11.5-14.5) % Plt Count 157 (130-400) K/uL MPV 8.9 (7.4-10.4) fL Immature Gran % (Auto) 0.3 % Neut % (Auto) 61.8 % Lymph % (Auto) 17.0 % [place] % (Auto) 16.0 % Eos % (Auto) 4.3 % Baso % (Auto) 0.6 % Immature Gran # (Auto) 0.02 (0.00-0.02) K/uL Neut # (Auto) 4.31 (1.4-6.5) K/uL Lymph # (Auto) 1.19 L (1.2-3.4) K/uL [place] # (Auto) 1.12 H (0.11-0.59) K/uL Eos # (Auto) 0.30 (0-0.5) K/uL Baso # (Auto) 0.04 (0-0.2) K/uL Polychromasia 1+ Hypochromasia Present Basophilic Stippling 1+ Ovalocytes 1+ PT (9.0-12.0) Seconds INR (0.9-1.1) APTT (21.0-31.0) Seconds PTT Ratio POC Sodium (135-144) mEq/L Sodium (136-145) mmol/L POC Potassium (3.3-5.0) mEq/L Potassium (3.5-5.1) mmol/L POC Chloride (101-112) mEq/L Chloride (98-107) mmol/L Carbon Dioxide (21-32) mmol/L POC Total CO2 (24-31) mEq/l Anion Gap (3-11) POC Anion Gap (16-25) mmol/L POC BUN (7-18) mg/dl BUN (7-18) mg/dl Creatinine (0.6-1.4) mg/dl POC Creatinine (0.6-1.3) mg/dl Est Cr Clr Drug Dosing ml/min Est GFR ( Amer) Est GFR (Non-Af Amer) BUN/Creatinine Ratio (10-20) Glucose (70-99) mg/dl POC Glucose (70-99) POC Glucose (other) (70-99) mg/dl Calcium (8.5-10.1) mg/dl POC Ioniz Calcium Gina (1.12-1.32) mmol/l Total Bilirubin (0.2-1) mg/dl AST (15-37) U/L ALT (12-78) U/L Alkaline Phosphatase (45-117) U/L Total Protein (6.4-8.2) gm/dl Albumin (3.4-5.0) gm/dl Globulin (2.5-4.0) gm/dl Albumin/Globulin Ratio (0.9-2) Urine Color Urine Appearance (Clear) Urine pH (4.5-7.5) Ur Specific Damar (1.000-1.030) Urine Protein (Negative) Urine Glucose (UA) (Negative) Urine Ketones (Negative) Urine Blood (Negative) Urine Nitrite (Negative) Urine Bilirubin (Negative) Urine Urobilinogen (Negative) Ur Leukocyte Esterase (Negative) Urine WBC (Auto) (0-5) /hpf Urine RBC (Auto) (0-4) /hpf U Hyaline Cast (Auto) (0-5) /lpf U Epithel Cells (Auto) (0-5) /lpf Urine Bacteria (Auto) (Negative) Blood Type Antibody Screen Crossmatch (1) Fluid overload Hypervolemia type: other Qualified Code(s): E87.79 - Other fluid overload
[2019-07-26] MEDS ORDERED: PANTOprazole 40 MG in SYRINGE 0 ML IV SCH (09:00)
[2019-07-26] MEDS: FUROSEMIDE 40 MG in SYRINGE 0 ML IV SCH ×2 (09:10→17:26)
[2019-07-26 12:04] LABS: Hematocrit (blood only) 26.3 % (42-52); Hemoglobin 8.3 g/dL (14.0-18.0)
--- NOTE | 2019-07-26 18:04 | Hospitalist Progress Note ---
Date of Service July 26, 2019 Assessment & Plan (1) UGIB (upper gastrointestinal bleed): Acute blood loss anemia possible GI bleed in the setting of Coumadin coagulopathy Differentials include gastritis, PUD, varices (hx cirrhosis as per records) hx atrial fibrillation on anticoagulation, INR was 4 on admission received 2 units of PRBC transfusion, adequate correction of hemoglobin 6.48.2 Evidence of active GI bleed noted since admission GI consulted, appreciate input Ordered clear liquid diet, Protonix twice daily EGD and colonoscopy when INR less than 1.5 Discussed with patient's daughter present at bedside, daughter voiced concerned that patient did not had his hearing aids this morning, possibly did not hear the question by GI team Patient needs aspirin bedside : EGD and colonoscopy for screening for possible GI bleed He is agreeable Ordered for n.p.o. past midnight We will update GI team Consult anesthesia as patient risk events high given multiple comorbidities, severe cardiomyopathy, CHF with systolic dysfunction (2) Acute on chronic systolic heart failure, NYHA class 2: Presents with volume overload, significant weight gain, lower extremity edema Acute on chronic systolic heart failure, ejection fraction less than 20% as per prior echo Volume status improved after IV diuresis Improvement of bilateral lower extremity edema, improvement of orthopnea Continue with outpatient Lasix dose, Your renal function closely (3) S/P ICD (internal cardiac defibrillator) procedure: Severe ischemic cardiomyopathy with systolic dysfunction status post AICD (4) DMII (diabetes mellitus, type 2): Hold outpatient p.o. meds, insulin sliding scale (5) CKD (chronic kidney disease), stage IV: Baseline advanced renal failure Required intermittent dialysis in past admission Patient volume status improved with IV diuretics, having adequate urine output, Appreciate input from nephrology (6) History of renal carcinoma: Status post right renal cell mass lesion (7) CAD (coronary artery disease): No complaint of chest pain shortness of breath Continue outpatient meds Status: DNR/DNI DVT prophylaxis: Coumadin kept on hold on presentation of coagulopathy INR more than 4, given vitamin K INR 2.2 today Disposition: PT OT evaluation requested Lives at home with family, daughter mention of significant deconditioning past 1 week secondary to volume overload PT OT evaluation requested Patient is active with [facility] service consult for discharge planning Subjective Patient denies of any discomfort, no complaint of shortness of breath, orthopnea no dizzy spell or lightheadedness No melena or blood in stool Status post 2 minutes of PRBC transfusion shows adequate correction of anemia No fever or chills, vitals stable Review of Systems Review of Systems: All systems reviewed & are unremarkable except as noted in HPI & below Physical Exam Constitutional: WD/WN, vitals as above Eyes: PERRL, conjunctivae normal, anicteric sclerae ENMT: external ear and nose normal, oropharynx normal Neck: trachea midline, no thyromegaly Respiratory: normal respiratory effort, lungs clear to auscultation Cardiovascular: RRR, no murmur, no edema Gastrointestinal (Abdomen): normal bowel sounds, soft, nontender, no hepatosplenomegaly Musculoskeletal: Generalized weakness Neurologic: PERRL, EOMI, accommodation nl, no face palsy, no dysarthria Results & Data Vital Signs (Past 12 Hours) Vital Signs Temp Pulse Resp BP Pulse Ox 07/26/19 15:00 36.4 C L 91 H 20 120/66 98 07/26/19 11:18 36.4 C L 72 16 125/56 L 94 07/26/19 07:09 36.9 C 74 17 117/69 97 (1) DMII (diabetes mellitus, type 2) Diabetes mellitus complication status: without complication Diabetes mellitus care home insulin use: without care home use Qualified Code(s): E11.9 - Type 2 diabetes mellitus without complications (2) CAD (coronary artery disease) Coronary Disease-Associated Artery/Lesion type: [place] artery [place] vs. transplanted heart: [place] heart Associated angina: without angina Qualified Code(s): I25.10 - Atherosclerotic heart disease of [place] coronary artery without angina pectoris
[2019-07-26] MEDS: PANTOprazole 40 MG TAB PO SCH (21:49)
[2019-07-27] MEDS ORDERED: Nursing to Pharmacy Communication ONE ×2 (00:27→14:38)
[2019-07-27] MEDS: INSULIN ASPART 100 UNITS/ML 3 ML PEN SC SCH ×4 (06:13→20:57)
[2019-07-27 08:14] LABS: Basophils # (auto) 0.05 K/uL (0-0.2); Basophils % (auto) 0.8 %; Eosinophils # (auto) 0.29 K/uL (0-0.5); Eosinophils % (auto) 4.9 %; Hematocrit (blood only) 26.4 % (42-52); Hemoglobin 8.3 g/dL (14.0-18.0); Immature Granulocytes # (auto) 0.01 K/uL (0.00-0.02); Immature Granulocytes % (auto) 0.2 %; Lymphocytes # (auto) 1.11 K/uL (1.2-3.4); Lymphocytes % (auto) 18.8 %; Mean Corpuscular Hgb Conc 31.4 g/dL (32-36); Mean Platelet Volume 9.7 fL (7.4-10.4); Neutrophils # (auto) 3.43 K/uL (1.4-6.5); Neutrophils % (auto) 58.3 %; Platelet Count 142 K/uL (130-400); RDW Coefficient of Variation 16.6 % (11.5-14.5); RDW Standard Deviation 55.6 fL (36.4-46.3); Red Blood Count 2.87 M/uL (4.7-6.1); White Blood Count 5.89 K/uL (4.8-10.8)
[2019-07-27 08:37] LABS: BUN Creatinine Ratio 25.4 (10-20); Calcium 9.2 mg/dl (8.5-10.1); Creatinine Clr Calc Pharmacy 19.5 ml/min; Est GFR (African American) 20.7; Est GFR (Non-African American) 17.9; Potassium 4.2 mmol/L (3.5-5.1)
[2019-07-27 08:42] LABS: INR 1.4 (0.9-1.1); Prothrombin Time 14.2 Seconds (9.0-12.0)
--- NOTE | 2019-07-27 08:54 | Gastroenterology Progress Note ---
Date of Service July 27, 2019 Assessment & Plan (1) Fluid overload: 79 year old male with history of CHF (EF 20-25%), afib on coumadin, CAD s/p stenting, s/p pacer defibrillator, renal CA s/p cryoablation, T2DM, MAXX, CKD, cirrhosis admitted w/ acute on chronic anemia and fluid overload w/ report of 20lb weight gain. He is having semi-formed brown stools but was noted to be heme + in the ED on rectal exam. INR reversed, HGB stable s/p RBC x 2 units on 07/26/19. There is report of a black stool 07/26/19 Acute on Chronic Anemia in the setting of elevated INR - NPO - Will discuss EGD w/ attending - Heme + stools in the ED - Stable vital signs - HGB 6.7 from baseline 06/30 - S/P RBC x 2 unit w/ appropriate response - No S/S of acute GI bleeding - Recommend PO PPI 40 BID - Trend HGB - Monitor and document all GI output Fluid overload in the setting of CHF, cirrhosis, CKD - Daily weights - Low NA diet, less than 2G - Fluid restriction per nephrology - Agree w/ diuresis per nephrology recommendation - IV Lasix as ordered Cirrhosis Management - MELD labs - HCC screen due now - No ETOH - Low NA diet, less than 2G - Less than 2G tylenol if using - Fluid restriction per nephrology Thank you for allowing us to participate in the care of this patient. Please ca ll with any acute changes, questions or concerns. Please see addendum below with additional recommendation from my supervising physician. Supervising Physician Co-Signing Physician Notes Attending attestation I have seen, examined this patient, and agree with the findings and above by our mid-level provider PADMINI Donato, with the following additions. HD stable, one small possible dark bm, HB stable Plan for EGD today Subjective Pt was seen and evaluated, chart reviewed. S/P RBC x 2 units yesterday HGB has remained stable There is report of a black stool last evening No BRB No abd pain, nausea, vomiting Review of Systems Constitutional: no fever, no chills and no fatigue Respiratory: no cough and no dyspnea Cardiovascular: no chest pain, no radiating jaw, neck or arm pain and no claudication Gastrointestinal: no abdominal pain, no nausea, no coffee ground emesis, no hematemesis, no blood in stools and no melena Physical Exam Constitutional: well developed and well nourished; no acute distress and not ill appearing Respiratory: normal respiratory effort Cardiovascular: Rate/Rhythm: regular rate and regular rhythm Gastrointestinal (Abdomen): Percussion/Palpation: abdomen soft; abdomen nontender, no guarding, abdomen not rigid, no abdominal mass and no ascites Skin: no rashes, warm and dry Results & Data Vital Signs (Past 12 Hours) Vital Signs Temp Pulse Pulse Resp BP Pulse Ox 07/27/19 06:52 37.1 C 59 L 20 113/63 91 07/27/19 04:00 36.7 C 73 20 123/65 93 07/27/19 00:00 72 07/26/19 23:03 36.3 C L 71 18 121/74 95 Laboratory Results 07/27/19 07/27/19 07/27/19 Range/Units 07:53 07:53 07:53 WBC 5.89 (4.8-10.8) K/uL RBC 2.87 L (4.7-6.1) M/uL Hgb 8.3 L (14.0-18.0) g/dL Hct 26.4 L (42-52) % MCV 92.0 (80-100) fL MCH 28.9 (25-34) pg MCHC 31.4 L (32-36) g/dL RDW Std Deviation 55.6 H (36.4-46.3) fL RDW Coeff of Dung 16.6 H (11.5-14.5) % Plt Count 142 (130-400) K/uL MPV 9.7 (7.4-10.4) fL Immature Gran % (Auto) 0.2 % Neut % (Auto) 58.3 % Lymph % (Auto) 18.8 % [place] % (Auto) 17.0 % Eos % (Auto) 4.9 % Baso % (Auto) 0.8 % Immature Gran # (Auto) 0.01 (0.00-0.02) K/uL Neut # (Auto) 3.43 (1.4-6.5) K/uL Lymph # (Auto) 1.11 L (1.2-3.4) K/uL [place] # (Auto) 1.00 H (0.11-0.59) K/uL Eos # (Auto) 0.29 (0-0.5) K/uL Baso # (Auto) 0.05 (0-0.2) K/uL PT 14.2 H (9.0-12.0) Seconds INR 1.4 H (0.9-1.1) Sodium 143 (136-145) mmol/L Potassium 4.2 (3.5-5.1) mmol/L Chloride 104 (98-107) mmol/L Carbon Dioxide 32 (21-32) mmol/L Anion Gap 7.0 (3-11) BUN 79 H (7-18) mg/dl Creatinine 3.12 H (0.6-1.4) mg/dl Est Cr Clr Drug Dosing 19.5 ml/min Est GFR ( Amer) 20.7 Est GFR (Non-Af Amer) 17.9 BUN/Creatinine Ratio 25.4 H (10-20) Glucose 84 (70-99) mg/dl POC Glucose (70-99) Calcium 9.2 (8.5-10.1) mg/dl 07/27/19 07/26/19 07/26/19 Range/Units 05:40 20:45 16:22 WBC (4.8-10.8) K/uL RBC (4.7-6.1) M/uL Hgb (14.0-18.0) g/dL Hct (42-52) % MCV (80-100) fL MCH (25-34) pg MCHC (32-36) g/dL RDW Std Deviation (36.4-46.3) fL RDW Coeff of Dung (11.5-14.5) % Plt Count (130-400) K/uL MPV (7.4-10.4) fL Immature Gran % (Auto) % Neut % (Auto) % Lymph % (Auto) % [place] % (Auto) % Eos % (Auto) % Baso % (Auto) % Immature Gran # (Auto) (0.00-0.02) K/uL Neut # (Auto) (1.4-6.5) K/uL Lymph # (Auto) (1.2-3.4) K/uL [place] # (Auto) (0.11-0.59) K/uL Eos # (Auto) (0-0.5) K/uL Baso # (Auto) (0-0.2) K/uL PT (9.0-12.0) Seconds INR (0.9-1.1) Sodium (136-145) mmol/L Potassium (3.5-5.1) mmol/L Chloride (98-107) mmol/L Carbon Dioxide (21-32) mmol/L Anion Gap (3-11) BUN (7-18) mg/dl Creatinine (0.6-1.4) mg/dl Est Cr Clr Drug Dosing ml/min Est GFR ( Amer) Est GFR (Non-Af Amer) BUN/Creatinine Ratio (10-20) Glucose (70-99) mg/dl POC Glucose 88 84 198 H (70-99) Calcium (8.5-10.1) mg/dl 07/26/19 07/26/19 07/26/19 Range/Units 13:53 11:53 11:42 WBC (4.8-10.8) K/uL RBC (4.7-6.1) M/uL Hgb 8.3 L (14.0-18.0) g/dL Hct 26.3 L (42-52) % MCV (80-100) fL MCH (25-34) pg MCHC (32-36) g/dL RDW Std Deviation (36.4-46.3) fL RDW Coeff of Dung (11.5-14.5) % Plt Count (130-400) K/uL MPV (7.4-10.4) fL Immature Gran % (Auto) % Neut % (Auto) % Lymph % (Auto) % [place] % (Auto) % Eos % (Auto) % Baso % (Auto) % Immature Gran # (Auto) (0.00-0.02) K/uL Neut # (Auto) (1.4-6.5) K/uL Lymph # (Auto) (1.2-3.4) K/uL [place] # (Auto) (0.11-0.59) K/uL Eos # (Auto) (0-0.5) K/uL Baso # (Auto) (0-0.2) K/uL PT (9.0-12.0) Seconds INR (0.9-1.1) Sodium (136-145) mmol/L Potassium (3.5-5.1) mmol/L Chloride (98-107) mmol/L Carbon Dioxide (21-32) mmol/L Anion Gap (3-11) BUN (7-18) mg/dl Creatinine (0.6-1.4) mg/dl Est Cr Clr Drug Dosing ml/min Est GFR ( Amer) Est GFR (Non-Af Amer) BUN/Creatinine Ratio (10-20) Glucose (70-99) mg/dl POC Glucose 90 92 (70-99) Calcium (8.5-10.1) mg/dl (1) Fluid overload Hypervolemia type: other Qualified Code(s): E87.79 - Other fluid overload
[2019-07-27] MEDS: MULTIVITAMIN TAB PO SCH (08:55)
[2019-07-27] MEDS: FUROSEMIDE 40 MG in SYRINGE 0 ML IV SCH ×2 (08:55→17:38)
[2019-07-27] MEDS: SERTRALINE HCL 50 MG TABLET PO SCH (08:55)
[2019-07-27] MEDS: ROSUVASTATIN CALCIUM 20 MG TAB PO SCH (08:55)
[2019-07-27] MEDS: PANTOprazole 40 MG TAB PO SCH ×2 (08:55→19:56)
--- NOTE | 2019-07-27 12:03 | Anesthesiology Consultation ---
Date of Service July 27, 2019 I discussed the patient with Dr. Neil who has been following the patient on the floor. She states that the patinet has been adequately diuresed and appears to be optimized and at his baseline. He is able to lie flat and his lower extremity edema has markedly improved. He is currently saturating 98% on room air and denies dyspnea. Assessment & Plan (1) Encounter for pre-operative examination: History Surgery Operation Date: 07/27/19 08:40 Proposed Procedures p Esophagogastroduodenoscopy Dr Galindo Medley Height/Weight Height: 5 ft 10 in Weight: 76.1 kg Allergies Allergy/AdvReac Type Severity Reaction Status Date / Time fentanyl Allergy Severe Decreased Verified 07/25/19 17:54 oxygen saturation, low RR, unresponsive midazolam Allergy Severe Decreased Verified 07/25/19 17:54 oxygen saturation, low RR, unresponsive. codeine Allergy Unknown GI SYMPTOMS Verified 07/25/19 17:54 promethazine [From Phenergan] AdvReac Severe severe Verified 07/25/19 17:54 fatigue BRIANA Inhibitors AdvReac Mild cough, Verified 07/25/19 17:54 cefuroxime AdvReac Mild GI SYMPTOMS Verified 07/25/19 17:54 Medications Home Medications Medication Instructions Recorded Confirmed Last Taken clopidogrel [Plavix] 75 mg PO QAM 08/16/18 07/25/19 07/25/19 11:00 coenzyme Q10 [Co Q-10] 10 mg PO QAM 08/16/18 07/25/19 07/25/19 11:00 cyanocobalamin (vitamin B-12) 1,000 mcg PO QAM 08/16/18 07/25/19 07/25/19 11:00 ferrous gluconate 324 mg PO QAM 08/16/18 07/25/19 07/25/19 11:00 multivitamin [Multiple Vitamins] 1 tab PO QAM 08/16/18 07/25/19 05/02/19 nitroglycerin [Nitrostat] 0.4 mg SUBLINGUAL UD PRN 08/16/18 07/25/19 05/02/19 pantoprazole [Protonix] 40 mg PO QAM 08/16/18 07/25/19 07/25/19 11:00 rosuvastatin [Crestor] 20 mg PO QAM 08/16/18 07/25/1907/25/19 11:00 sertraline 50 mg PO QAM 08/16/18 07/25/19 07/25/19 11:00 glipizide 2.5 mg PO BID #30 tab 02/01/19 07/25/19 07/25/19 11:00 potassium chloride [Klor-Con M20] 20 meq PO QAM #30 tab 02/03/19 07/25/19 07/25/19 11:00 dextromethorphan-guaifenesin 1 tab PO Q12H PRN 03/17/19 07/25/19 05/02/19 [Mucinex DM] testosterone 1 packet TRANSDERMAL DAILY 03/17/19 07/25/19 05/02/19 warfarin 2.5 - 5 mg PO UD 03/17/19 07/25/19 05/02/19 torsemide 40 mg PO DAILY 05/02/19 07/25/19 05/01/19 Active Medications Generic Name Dose Route Start Last Admin Trade Name Freq PRN Reason Stop Dose Admin Furosemide 40 mg/ Syringe 4 mls @ 4 mls/min 07/26/19 09:00 07/27/19 08:55 IV 08/25/19 08:59 4 mls/min [id number] PAVAN Administration Insulin Aspart 0 units 07/27/19 06:00 07/27/19 06:13 Novolog Flexpen SC 08/26/19 05:59 Not Given Q6 PAVAN Multivitamins 1 tab 07/26/19 09:00 07/27/19 08:55 Multivitamin Tab PO 08/25/19 08:59 1 tab QAM PAVAN Administration Pantoprazole Sodium 40 mg 07/26/19 21:00 07/27/19 08:55 Protonix PO 08/25/19 20:59 40 mg BID PAVAN Administration Rosuvastatin Calcium 20 mg 07/26/19 09:00 07/27/19 08:55 Crestor PO 08/25/19 08:59 20 mg QAM PAVAN Administration Sertraline HCl 50 mg 07/26/19 09:00 07/27/19 08:55 Zoloft PO 08/25/19 08:59 50 mg QAM PAVAN Administration Past Medical History Medical History CKD (chronic kidney disease), stage IV (Chronic) Cirrhosis of liver (Chronic) Anticoagulant long-term use (Chronic) Ischemic cardiomyopathy (Chronic) DMII (diabetes mellitus, type 2) (Chronic) CAD (coronary artery disease) (Chronic) Pericardial effusion (Resolved) Anemia in chronic kidney disease (Chronic) SBP (spontaneous bacterial peritonitis) (Resolved) Depression (Chronic) HTN (hypertension) (Chronic) History of renal carcinoma (Chronic) Chronic systolic heart failure (Chronic) Ascites (Resolved) CAD (coronary artery disease) (Chronic) "2005 - PCI to LAD cath 2011 - no significant obstructive disease" CVA (cerebral vascular accident) (Chronic) Squamous cell carcinoma (Chronic) Basal cell carcinoma (Chronic) V tach (Chronic) "s/p AICD placement" Gross hematuria (Resolved) Myocardial infarction Past Family History Family History Father Coronary heart disease Mother Coronary heart disease Past Surgical History Surgical History History of prior ablation treatment (Chronic) CT guided tissue ablation R kidney S/P ICD (internal cardiac defibrillator) procedure (Chronic) History of cataract surgery (Chronic) Social History Smoking Status: Never smoker tobacco type: cigarettes Hx Alcohol Use: Yes alcohol intake frequency: other Alcohol Intake Frequency Comment: has not drank since he was 44 years old Hx Substance Use: No Physical Exam Vital Signs Last Vital Signs Temp 36.6 C 07/27/19 11:20 Pulse 79 07/27/19 11:20 Resp 16 07/27/19 11:20 BP 137/70 07/27/19 11:20 Pulse Ox 98 07/27/19 11:20 Testing Laboratory Results 07/27/19 07:53 07/27/19 07:53 PT 14.2 Seconds (9.0-12.0) H 07/27/19 07:53 INR 1.4 (0.9-1.1) H 07/27/19 07:53 APTT 51.3 Seconds (21.0-31.0) H* 07/25/19 18:44 Urine Color Yellow 07/25/19 18:04 Urine Appearance Clear (Clear) 07/25/19 18:04 Urine pH 7.5 (4.5-7.5) 07/25/19 18:04 Ur Specific [place] 1.010 (1.000-1.030) 07/25/19 18:04 Urine Protein Negative (Negative) 07/25/19 18:04 Urine Glucose (UA) Negative (Negative) 07/25/19 18:04 Urine Ketones Negative (Negative) 07/25/19 18:04 Urine Nitrite Negative (Negative) 07/25/19 18:04 Ur Leukocyte Esterase Trace (Negative) H 07/25/19 18:04 Urine WBC (Auto) 1-5 /hpf (0-5) 07/25/19 18:04 Urine RBC (Auto) 0-4 /hpf (0-4) 07/25/19 18:04 U Hyaline Cast (Auto) 0 /lpf (0-5) 07/25/19 18:04 U Epithel Cells (Auto) 0-5 /lpf (0-5) 07/25/19 18:04 Urine Bacteria (Auto) Negative (Negative) 07/25/19 18:04 Blood Type A Positive 07/25/19 18:44 Antibody Screen NEGATIVE 07/25/19 18:44 07/27/19 07/27/19 11:34 05:40 POC Glucose 94 88 Electrocardiogram Date: 07/25/19 Findings: + AFIB @ Atrial fibrillation Right bundle branch block Inferior infarct Echocardiogram Date: 01/22/19 EF: 40-45%
[2019-07-27] MEDS ORDERED: PROPOFOL IV EMULSION 10 MG/ML 20 ML VIAL IV ONE (12:07)
[2019-07-27] MEDS ORDERED: LIDOCAINE HCL 2% 2 ML VIAL/AMP(20MG/ML) INFIL ONE (12:07)
--- NOTE | 2019-07-27 12:50 | GI REPORT ---
Patient Name: Parth Cottrell Procedure Date: 07/27/2019 12:28 PM Date of : 1940 Admit Type: Inpatient Age: 79 Gender: Male Attending MD: Dontae Medley MD Procedure: Upper GI endoscopy Providers: Dontae Medley MD Referring MD: Alisson Martin Indications: Melena Medicines: Propofol per Anesthesia Complications: No immediate complications. Estimated blood loss: None. Estimated Blood Loss: Estimated blood loss: none. Procedure: Pre-Anesthesia Assessment: - Pre-Anesthesia Assessment: - Prior to the procedure, a History and Physical was performed, and patient medications, allergies and sensitivities were reviewed. The patient's tolerance of previous anesthesia was reviewed. Please see [facility] for complete details. - The risks and benefits of the procedure and the sedation options and risks were discussed with the patient. All questions were answered and informed consent was obtained. - Patient identification and proposed procedure were verified prior to the procedure by the physician and the nurse. The procedure was verified in the pre-procedure area in the procedure room. After obtaining informed consent, the endoscope was passed carefully and meticuously under direct vision and only advanced when the lumen was clearly identified, C02 insuflation was utilized throughout the entirity of the procedure. Throughout the procedure, the patient's blood pressure, pulse, and oxygen saturations were monitored continuously. After obtaining informed consent, the endoscope was passed under direct vision. Throughout the procedure, the patient's blood pressure, pulse, and oxygen saturations were monitored continuously. The Endoscope was introduced through the mouth, and advanced to the second part of duodenum. The upper GI endoscopy was accomplished without difficulty. The patient tolerated the procedure well. Findings: A small hiatal hernia was present. No other significant abnormalities were identified in a careful examination of the esophagus. Patchy severe gastritis with mild oozing was identified. The area was carefully irrigated and no ulcer or lesion was identified amendable to endsocopic therapy, in the gastric antrum. Biopsies were taken with a cold forceps for Helicobacter pylori testing. Appearances not consistent with GAVE, possible Portal HTN gastropathy. The examined duodenum was normal. Impression: - Small hiatal hernia. - Chronic gastritis with hemorrhage. Biopsied. - Normal examined duodenum. Recommendation: - [facility]. - Use Prilosec (omeprazole) 40 mg PO BID indefinitely while on dual anticoagulation - Bleeding presenation likely caused by coagulopathy and severe gastritis. - Avoidance of NSAIDs - No acute GI bleeding, appears chronic. Dontae Medley MD 07/27/2019 12:50:38 PM This report has been signed electronically. Note Initiated On: 07/27/2019 12:28 PM Number of Addenda: 0 I attest to the content of the Intraoperative Record and orders documented therein, exceptions below {[id number]}
[2019-07-27] MEDS ORDERED: BENZOCAIN/TETRACA/BUTAM SPRAY 200 APPLN/20 GM SPRY EXT ONE (12:56)
--- NOTE | 2019-07-27 14:04 | Anesthesiology Progress Note ---
Date of Service July 27, 2019 Anesthesia Post Procedure Vital Signs Vital Signs: Temp Pulse Pulse Resp BP Pulse Ox 07/27/19 13:20 84 18 159/70 H 97 07/27/19 13:05 84 16 141/89 H 95 07/27/19 12:50 88 16 139/72 96 07/27/19 12:05 36.6 C 83 20 145/74 H 97 07/27/19 11:20 36.6 C 79 16 137/70 98 07/27/19 06:52 37.1 C 59 L 20 113/63 91 07/27/19 04:00 36.7 C 73 20 123/65 93 07/27/19 00:00 72 07/26/19 23:03 36.3 C L 71 18 121/74 95 07/26/19 19:50 36.5 C 73 19 127/77 96 07/26/19 15:00 36.4 C L 91 H 20 120/66 98 Transfer of Care Handoff Completed per policy Notes Mental Status: alert / awake / arousable and participated in evaluation Patient Amnestic to Procedure: Yes Nausea / Vomiting: adequately controlled Pain: adequately controlled Airway Patency, RR, SpO2: stable & adequate BP & HR: stable & adequate Hydration State: stable & adequate Anesthetic Complications: no major complications apparent and Pt Satisfied with anesthetic care
--- NOTE | 2019-07-27 14:40 | Nephrology Progress Note ---
Date of Service July 27, 2019 Assessment & Plan (1) Fluid overload: multifactorial from chronic systolic HF, from advanced CKD nearing ESRD, from need for transfusion, + /- liver cirrhosis -daily STANDING wt whenever possible -< 2 gm daily Na diet and 1.5 L FR when taking po -daily bmp -cont lasix 40 mg IV bid 17 timed so as not to disrupt sleep; lower/gentler lasix dose for now given NPO status, active GI bleed, normotension (2) Acute upper GI bleed: -transfuse prn -f/u GI recs after EGD above (3) Anemia: -transfuse prn and lasix prn w/ transfusion -d/t RCC hx, per heme note in [facility] January 2019 he is not a candidate for epogen or other ESAs -he was to f/u w/ heme early summer 2018 but has not >> asked in [facility] to get this scheduled (4) CKD (chronic kidney disease), stage IV: No indication at this time for urgent dialysis but will monitor closely. d/t insurance coverage, his AVF/ AVG cannot be placed by [facility] vascular team. He is preparing for in center HD. Renal function, chemistries for now acceptable, volume status less so - address as above. he has bland urine sediment. -daily bmp -FR and low Na as above -diuretics as above Subjective seen on rounds at 0810; for EGD >> showed gastritis w/ bleeding from portal htn and coagulopathy. no sob, no pain, voiding ok, edema a bit better Review of Systems Review of Systems: All systems reviewed & are unremarkable except as noted in HPI & below Physical Exam Constitutional: well developed, well nourished and cooperative on RA Eyes: EOM intact bilaterally ENMT: Ears: no external ear abnormality Nose: no external nose abnormality Mouth: + dry oral mucous membranes Neck: no nuchal rigidity Respiratory: normal respiratory effort and + paradoxical thoraco-abdominal movement (slight) Auscultation: + breath sounds absent (BL bases) and + diminished lung sounds Cardiovascular: Rate/Rhythm: + irregularly irregular Heart Sounds: + murmur Extremities: + edema (trace -1+ BLe) Gastrointestinal (Abdomen): Inspection/Auscultation: normal bowel sounds Percussion/Palpation: abdomen soft; abdomen nontender Musculoskeletal: Extremities: strength 5/5 throughout Skin: no rashes, warm and dry + pallor Psychiatric: Orientation: alert and oriented x 3 Eye Contact: good eye contact Speech: normal rate/rhythm/volume of speech Affect: euthymic affect Insight: + limited insight Judgement: + limited judgement Genitourinary: no browning Results & Data Vital Signs (Past 12 Hours) Vital Signs Temp Pulse Resp BP Pulse Ox 07/27/19 13:20 84 18 159/70 H 97 07/27/19 13:05 84 16 141/89 H 95 07/27/19 12:50 88 16 139/72 96 07/27/19 12:05 36.6 C 83 20 145/74 H 97 07/27/19 11:20 36.6 C 79 16 137/70 98 07/27/19 06:52 37.1 C 59 L 20 113/63 91 07/27/19 04:00 36.7 C 73 20 123/65 93 Laboratory Results Abnormal lab results 07/26/19 07/27/19 07/27/19 Range/Units 16:22 07:53 07:53 RBC 2.87 L (4.7-6.1) M/uL Hgb 8.3 L (14.0-18.0) g/dL Hct 26.4 L (42-52) % MCHC 31.4 L (32-36) g/dL RDW Std Deviation 55.6 H (36.4-46.3) fL RDW Coeff of Dung 16.6 H (11.5-14.5) % Lymph # (Auto) 1.11 L (1.2-3.4) K/uL [place] # (Auto) 1.00 H (0.11-0.59) K/uL PT 14.2 H (9.0-12.0) Seconds INR 1.4 H (0.9-1.1) BUN (7-18) mg/dl Creatinine (0.6-1.4) mg/dl BUN/Creatinine Ratio (10-20) POC Glucose 198 H (70-99) 07/27/19 Range/Units 07:53 RBC (4.7-6.1) M/uL Hgb (14.0-18.0) g/dL Hct (42-52) % MCHC (32-36) g/dL RDW Std Deviation (36.4-46.3) fL RDW Coeff of Dung (11.5-14.5) % Lymph # (Auto) (1.2-3.4) K/uL [place] # (Auto) (0.11-0.59) K/uL PT (9.0-12.0) Seconds INR (0.9-1.1) BUN 79 H (7-18) mg/dl Creatinine 3.12 H (0.6-1.4) mg/dl BUN/Creatinine Ratio 25.4 H (10-20) POC Glucose (70-99) (1) Fluid overload Hypervolemia type: other Qualified Code(s): E87.79 - Other fluid overload (2) Anemia Anemia type: unspecified type Qualified Code(s): D64.9 - Anemia, unspecified
[2019-07-28 07:23] VITALS: PULSE 68; TEMP 98.6; O2SAT 94
[2019-07-28 08:15] LABS: Hematocrit (blood only) 25.1 % (42-52); Hemoglobin 7.8 g/dL (14.0-18.0); Mean Corpuscular Hgb Conc 31.1 g/dL (32-36); Mean Corpuscular Volume 92.6 fL (80-100); Mean Platelet Volume 9.4 fL (7.4-10.4); Platelet Count 141 K/uL (130-400); RDW Coefficient of Variation 16.3 % (11.5-14.5); RDW Standard Deviation 55.2 fL (36.4-46.3); Red Blood Count 2.71 M/uL (4.7-6.1); White Blood Count 6.54 K/uL (4.8-10.8)
[2019-07-28] MEDS: MULTIVITAMIN TAB PO SCH (08:19)
[2019-07-28] MEDS: PANTOprazole 40 MG TAB PO SCH (08:19)
[2019-07-28] MEDS: SERTRALINE HCL 50 MG TABLET PO SCH (08:19)
[2019-07-28] MEDS: FUROSEMIDE 40 MG in SYRINGE 0 ML IV SCH (08:20)
[2019-07-28] MEDS: ROSUVASTATIN CALCIUM 20 MG TAB PO SCH (08:20)
[2019-07-28 08:22] LABS: INR 1.4 (0.9-1.1); Prothrombin Time 13.8 Seconds (9.0-12.0)
[2019-07-28] MEDS: INSULIN ASPART 100 UNITS/ML 3 ML PEN SC SCH ×2 (08:30→12:48)
--- NOTE | 2019-07-28 08:32 | Anesthesiology Progress Note ---
Date of Service July 28, 2019 Anesthesia Post Procedure Vital Signs Vital Signs: Temp Pulse Pulse Resp BP BP Pulse Ox 07/28/19 07:22 37.0 C 68 16 116/61 94 07/28/19 04:00 36.8 C 78 20 111/62 93 07/28/19 00:38 81 07/27/19 22:53 36.9 C 73 18 126/68 95 07/27/19 19:04 36.4 C L 71 18 137/84 97 07/27/19 15:13 36.6 C 85 16 108/68 97 07/27/19 13:20 84 18 159/70 H 97 07/27/19 13:05 84 16 141/89 H 95 07/27/19 12:50 88 16 139/72 96 07/27/19 12:05 36.6 C 83 20 145/74 H 97 07/27/19 11:20 36.6 C 79 16 137/70 98 Notes Mental Status: alert / awake / arousable Patient Amnestic to Procedure: Yes Nausea / Vomiting: adequately controlled Pain: adequately controlled Airway Patency, RR, SpO2: stable & adequate BP & HR: stable & adequate Hydration State: stable & adequate Anesthetic Complications: no major complications apparent and Pt Satisfied with anesthetic care
[2019-07-28 08:41] LABS: BUN Creatinine Ratio 22.4 (10-20); Calcium 8.8 mg/dl (8.5-10.1); Creatinine Clr Calc Pharmacy 19.8 ml/min; Est GFR (African American) 21.1; Est GFR (Non-African American) 18.2
[2019-07-28 12:24] VITALS: BP 159/70
--- NOTE | 2019-07-28 15:09 | Discharge Summary ---
Date of Service July 28, 2019 Admission HPI Per Admitting Provider History obtained from patient, family, and records. History somewhat limited from patient secondary to hearing impairment Medical history significant for chronic systolic heart failure secondary to ischemic cardiomyopathy (EF 40 to 45%, TTE 2018), hx VT sp ICD placement, hypertension, hyperlipidemia, coronary artery disease status post stenting, atrial fibrillation on anticoagulation, Cirrhosis as per records, CKD (baseline creatinine 3), chronic anemia (hemoglobin 9, DM2 on oral medications skin cancer sp surgery, past tobacco alcohol abuse as per records. Recent confinement February 2019 for respiratory failure secondary to flu pneumonia. The last few months, patient's daughter noted progressive weight gain/leg swelling despite diuretic regimen changes. Some shortness of breath on exertion as per daughter although patient never complains of anything. 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 Outpatient blood work today showed potassium of 6, INR 4.4. Patient directed to the emergency room. Hemoglobin noted to be 6.8. Heme positive dark stools noted on rectal exam by ER provider. Patient denies chest/abdominal pain. Usual orthopnea symptoms as per daughter. Calcium gluconate, IV insulin given for serum K of 5.5. 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 Principal Diagnosis HYPERKALEMIA, ACUTE RENAL FAILURE, UPPER GI BLEED, GASTRITIS/ANEMIA Discharge Exam Constitutional WD/WN, vitals as above Eyes PERRL, conjunctivae normal, anicteric sclerae ENMT external ear and nose normal, oropharynx normal Neck trachea midline, no thyromegaly Respiratory normal respiratory effort, lungs clear to auscultation Cardiovascular RRR, no murmur, no edema Gastrointestinal (Abdomen) normal bowel sounds, soft, nontender, no hepatosplenomegaly Neurologic PERRL, EOMI, accommodation nl, no face palsy, no dysarthria Discharge Data Allergies Allergy/AdvReac Type Severity Reaction Status Date / Time fentanyl Allergy Severe Decreased Verified 07/25/19 17:54 oxygen saturation, low RR, unresponsive midazolam Allergy Severe Decreased Verified 07/25/19 17:54 oxygen saturation, low RR, unresponsive. codeine Allergy Unknown GI SYMPTOMS Verified 07/25/19 17:54 promethazine [From Phenergan] AdvReac Severe severe Verified 07/25/19 17:54 fatigue BRIANA Inhibitors AdvReac Mild cough, Verified 07/25/19 17:54 cefuroxime AdvReac Mild GI SYMPTOMS Verified 07/25/19 17:54 Consultations 07/25/19 18:42 ED Decision to Admit Stat 07/25/19 21:29 Consult Gastroenterology Routine Consult Nephrology Routine 07/26/19 18:32 Consult Anesthesiology Routine Procedures Performed Operation Date: 07/27/19 08:40 Actual Procedures p EGD Biopsy Cytology - Dontae Medley Ordered Studies 07/25/19 21:29 US abdomen ltd ascites Urgent Hospital Course (1) UGIB (upper gastrointestinal bleed): Acute blood loss anemia possible GI bleed in the setting of Coumadin coagulopathy EGD showed chronic gastritis, with bleeding/mild oozing and anticoagulant therapy-possible causing GI bleed/acute blood loss anemia hx atrial fibrillation on anticoagulation, INR was 4 on admission received 2 units of PRBC transfusion, adequate correction of hemoglobin 6.48.2 H&H has been stable since Evidence of active GI bleed noted since admission GI consulted, appreciate input EGD 07/27/2019: Patchy severe gastritis with mild oozing was identified. The area was carefully irrigated and no ulcer or lesion was identified: Possible gastritis secondary to portal hypertension gastropathy Recommends Prilosec 40 mg by mouth twice daily indefinitely while on dual anticoagulation (Plavix and Coumadin ) Close monitoring of PT/INR and Coumadin dose adjustment, ideally patient's INR should be < 2 given patient is on Plavix for severe coronary artery disease patient's bleeding presentation likely caused by coagulopathy and severe gastritis (2) Acute on chronic systolic heart failure, NYHA class 2: Presents with volume overload, significant weight gain, lower extremity edema Acute on chronic systolic heart failure, ejection fraction less than 20% as per prior echo Volume status improved after IV diuresis Improvement of bilateral lower extremity edema, improvement of orthopnea Continue with outpatient ceramide 100 mg daily, appreciate input from nephrology Renal function remains stable to approximate baseline (3) S/P ICD (internal cardiac defibrillator) procedure: Severe ischemic cardiomyopathy with systolic dysfunction status post AICD Evidence of volume overload, adequately compensated after aggressive diuresis patient will be discharged home with prior home diuretics dose (4) DMII (diabetes mellitus, type 2): Patient p.o. diabetic meds resumed, patient was treated with insulin sliding scale while inpatient (5) CKD (chronic kidney disease), stage IV: Baseline advanced renal failure Required intermittent dialysis in past admission Patient volume status improved with IV diuretics, having adequate urine output, Appreciate input from nephrology Renal function improved to approximate baseline, discharged home with p.o. torsemide 100 mg daily, prior home dose Advised potassium supplement Lab work: Basic metabolic panel on 07/31/2019 (6) History of renal carcinoma: Status post ablation of right renal cell mass lesion Ultrasound shows persistent right lower pole lesion, Family ever want to proceed with any further intervention Not a candidate for Procrit therapy for anemia of chronic disease secondary to underlying renal malignancy (7) CAD (coronary artery disease): No complaint of chest pain shortness of breath Continue outpatient meds Status: DNR/DNI DVT prophylaxis: Coumadin kept on hold on presentation of coagulopathy INR more than 4, given vitamin K INR 1.4 today Coumadin is resumed as per GI instruction, patient will have repeat PT/INR check on 07/31/2019, will need close follow-up with coagulation clinic regarding PT INR monitoring and Coumadin dose to prevent coagulopathy which may lead to GI bleed Disposition: Patient is back to his baseline functional status, walking on the hallway with wheelchair independently Patient is active with [facility] Able to be discharged home with prior service Total Time Total Time Spent Total Time Spent (In Minutes): Approximately 45 minutes Total Time Includes: Examination of the Patient, Discharge Planning and Medication Reconciliation Discharge Plan Discharge Items Patient Disposition: Home - Home Health Services Reason For Visit: UGIB Discharge Diagnosis: HYPERKALEMIA, ACUTE RENAL FAILURE, UPPER GI BLEED, GASTRITIS/ANEMIA Discharge Goals: Decrease discomfort Activity: Resume your previous activity Non-emergency contact: Primary Care Provider Call non-emergency contact if: you have any medication questions Follow-up/Referrals: Alisson Martin MD, PhD [Physician] - 08/04/19 10:40 am Rodrigo Alexander MD [Physician] - 08/01/19 2:00 pm Shade Thomas MD [Primary Care Provider] - 08/02/19 1:45 pm Diet: Carb Consistent or DM2 and Heart Healthy Other Ambulatory Orders: Basic Metabolic Panel (Routine) Timeframe: 20190731 Location: Determined by Patient Ordered By: Mayi Neil Complete Blood Count no Diff (Routine) Timeframe: 20190731 Location: Determined by Patient Ordered By: Mayi Neil Prothrombin Time INR (Routine) Timeframe: 20190731 Location: Determined by Patient Ordered By: Mayi Neil Addtl Provider Instructions: MEDICATION CHANGE: Do not take potassium supplement Protonix 40 mg twice daily Lab work: Basic metabolic panel/complete blood count, PT/INR on 07/31/2019 Can start taking Coumadin from tomorrow Please notify Dr. Thomas's office with any evidence of dark blood Continue to have low-salt diet, monitor daily weight Call your Primary Care doctor if any of the following symptoms or problems start or get worse: * Shortness of breath or difficulty breathing * Wake up at night short of breath * Chest pain * Cough * Swelling of your hands, feet, or legs * More fatigued or tired with your normal activity * Palpitations - sudden fast heart beats WEIGHT * Weigh yourself every morning after using the bathroom. * Use the same scale. * Wear the same amount of clothing. * Write your weight down on a chart. * Call your Primary Care doctor if you gain more than 2-3 pounds in 1-2 days. MEDICATIONS * Use this discharge instruction sheet for medication instructions. * Take your medications at the time your doctor ordered. * Do not skip a dose of your medicines. * If you miss a dose of medicine, take it as soon as possible, but DO NOT DOUBLE A DOSE. * Read your medicine information when you get home. * Know all of the side effects of your medicine. If in doubt, ask your pharmacist * Call your Primary Care doctor's office if you have any side effects. * Be sure all of your doctors know what medicine and herbs you take (including cold, flu, and herbal medicine). Take the following with you to your follow-up doctor appointments: * Weight Chart * Medication List * List of questions Do not drink excessive alcohol, beer or wine. Prescriptions: New pantoprazole 40 mg Tablet,Delayed Release (Dr/Ec) 40 mg PO BID 30 Days Qty: 60 RF: 4 Continued warfarin 5 mg Tablet 2.5 - 5 mg PO UD RF: 0 dextromethorphan-guaifenesin [Mucinex DM] 60-1,200 mg Tablet Extended Release 12 Hr 1 tab PO Q12H PRN (Reason: Cough) RF: 0 testosterone 50 mg/5 gram (1 %) Gel 1 packet TRANSDERMAL DAILY RF: 0 pantoprazole [Protonix] 40 mg Tablet,Delayed Release (Dr/Ec) 40 mg PO QAM RF: 0 nitroglycerin [Nitrostat] 0.4 mg Tablet, Sublingual 0.4 mg Sublingual UD PRN (Reason: Chest Pain) RF: 0 clopidogrel [Plavix] 75 mg Tablet 75 mg PO QAM RF: 0 sertraline 50 mg Tablet 50 mg PO QAM RF: 0 coenzyme Q10 [Co Q-10] 10 mg Capsule 10 mg PO QAM RF: 0 cyanocobalamin (vitamin B-12) 1,000 mcg Tablet 1,000 mcg PO QAM RF: 0 ferrous gluconate 324 mg (37.5 mg iron) Tablet 324 mg PO QAM RF: 0 rosuvastatin [Crestor] 20 mg Tablet 20 mg PO QAM RF: 0 multivitamin [Multiple Vitamins] Tablet 1 tab PO QAM RF: 0 glipizide 5 mg tablet 2.5 mg PO BID Qty: 30 RF: 1 torsemide 20 mg tablet 100 mg PO DAILY RF: 0 Discontinued potassium chloride [Klor-Con M20] 20 mEq Tablet,Er Particles/Crystals 20 meq PO QAM Qty: 30 RF: 1 Stand-Alone Forms: On License Of [facility] Discharge Orders: Discharge Order (Routine); Ordered 07/28/19 Ordered By: Mayi Neil Admission Data Admit Date/Time: 07/25/19 20:18 Attending Provider: Mayi Neil Admit Provider: Candido Alves Primary Care Provider: Shade Thomas Other Providers: Mayi Neil ; Chelsie Ayala ; Nerissa Junior ; Molly Bartlett ; Dontae Medley ; Tamiko Chappell ; Yael Rayo ; Nemo Miller ; Fercho Martin ; Mateusz Ordaz ; Nicehlle Landrum ; Elysia Delacruz ; Fatou Josue ; Lexi Johnson ; Celso Pierce ; Alisson Martin ; Prabhjot Jhaveri Service: Telemetry Medical Other Interventions: Discharge Summary Assessment (RN) Last Done: 07/28/19 12:51 DC Date/Time DO NOT enter until pt leaves facility: 07/28/19 12:50
== END 2019-07-28 12:50 | disposition home health service (06) | DRG 377 ==
LOC: ED 16:47 → 2W 20:18 → SUATTDRO 20:18 → 2W 21:04
DX: Z95.5 Presence of coronary angioplasty implant and graft; K70.31 Alcoholic cirrhosis of liver with ascites; Z79.02 Long term (current) use of antithrombotics/antiplatelets; D63.1 Anemia in chronic kidney disease; Z88.9 Allergy status to unspecified drugs, medicaments and biological substances; I48.91 Unspecified atrial fibrillation; D68.32 Hemorrhagic disorder due to extrinsic circulating anticoagulants; E78.5 Hyperlipidemia, unspecified; N17.9 Acute kidney failure, unspecified; Z88.1 Allergy status to other antibiotic agents; E87.5 Hyperkalemia; Z86.59 Personal history of other mental and behavioral disorders; Z79.84 Long term (current) use of oral hypoglycemic drugs; E11.22 Type 2 diabetes mellitus with diabetic chronic kidney disease; Z79.01 Long term (current) use of anticoagulants; Z88.5 Allergy status to narcotic agent; D63.8 Anemia in other chronic diseases classified elsewhere; K76.6 Portal hypertension; Z95.810 Presence of automatic (implantable) cardiac defibrillator; N18.4 Chronic kidney disease, stage 4 (severe); K31.89 Other diseases of stomach and duodenum; C64.1 Malignant neoplasm of right kidney, except renal pelvis; K44.9 Diaphragmatic hernia without obstruction or gangrene; I50.23 Acute on chronic systolic (congestive) heart failure; H91.90 Unspecified hearing loss, unspecified ear; D62 Acute posthemorrhagic anemia; I25.5 Ischemic cardiomyopathy; K92.2 Gastrointestinal hemorrhage, unspecified; Z87.891 Personal history of nicotine dependence; I13.0 Hypertensive heart and chronic kidney disease with heart failure and stage 1 through stage 4 chronic kidney disease, or unspecified chronic kidney disease; Z79.899 Other long term (current) drug therapy; Z66 Do not resuscitate; I25.10 Atherosclerotic heart disease of native coronary artery without angina pectoris; K29.51 Unspecified chronic gastritis with bleeding

== ENCOUNTER 2019-09-28 11:22 | Inpatient (IN) ==
[2019-09-28] MEDS ORDERED: MoRPHine SULFATE 4 MG/ML 1 ML CARP\\VIAL IV STA (11:48)
[2019-09-28 12:21] LABS: Hematocrit (blood only) 21.8 % (42-52); Hemoglobin 6.9 g/dL (14.0-18.0); Mean Corpuscular Hgb Conc 31.7 g/dL (32-36); Mean Corpuscular Volume 91.6 fL (80-100); Mean Platelet Volume 10.2 fL (7.4-10.4); Platelet Count 134 K/uL (130-400); RDW Coefficient of Variation 15.4 % (11.5-14.5); RDW Standard Deviation 52.2 fL (36.4-46.3); Red Blood Count 2.38 M/uL (4.7-6.1); White Blood Count 6.24 K/uL (4.8-10.8)
[2019-09-28] MEDS ORDERED: ONDANSETRON INJ 2 MG/ML 2 ML VIAL IV STA ×2 (12:28→12:30)
[2019-09-28] MEDS ORDERED: SODIUM CHLORIDE 0.9% 250 ML IV PRN ×2 (12:29→20:29)
--- NOTE | 2019-09-28 12:29 | CT Scan Report ---
CT head/brain wo con CT DOSE: 1042.28 mGycm HISTORY: Trauma. Mental status change. s/p fall on coumadin TECHNIQUE: Multiaxial CT images of the head were performed without the use of intravenous contrast. A dose lowering technique was utilized adhering to the principles of ALARA. Comparison: 03/17/2019 Findings: The paranasal sinuses and mastoid air cells are clear. The calvarium and skull base are int act. The ventricles and sulci are within normal limits. There is no mass, hematoma, midline shift, or acute infarct. Left periventricular low-density focus unaltered from the prior exam. Impression: No acute intracranial abnormality. The above report was generated using voice recognition software. It may contain grammatical, syntax or spelling errors. Electronically signed by: Brennen Nguyen M.D. 09/28/2019 12:28 PM
[2019-09-28 12:33] LABS: BUN Creatinine Ratio 15.4 (10-20); Calcium 8.7 mg/dl (8.5-10.1); Creatinine Clr Calc Pharmacy 16.1 ml/min; Est GFR (African American) 16.4; Est GFR (Non-African American) 14.1; Potassium 3.5 mmol/L (3.5-5.1)
[2019-09-28 12:39] LABS: Partial Thromboplastin Ratio 1.6; Partial Thromboplastin Time 43.8 Seconds (21.0-31.0); Prothrombin Time 44.1 Seconds (9.0-12.0)
[2019-09-28 12:44] LABS: Basophils # (auto) 0.03 K/uL (0-0.2); Basophils % (auto) 0.5 %; Eosinophils # (auto) 0.18 K/uL (0-0.5); Eosinophils % (auto) 2.9 %; Hypochromasia Present; Immature Granulocytes # (auto) 0.01 K/uL (0.00-0.02); Immature Granulocytes % (auto) 0.2 %; Lymphocytes # (auto) 0.78 K/uL (1.2-3.4); Lymphocytes % (auto) 12.5 %; Monocytes # (auto) 0.74 K/uL (0.11-0.59); Monocytes % (auto) 11.9 %
[2019-09-28] MEDS ORDERED: PANTOprazole 80 MG in DEXTROSE 5% 100 ML IV ONE (12:45)
[2019-09-28 12:55] LABS: INR 4.8 (0.9-1.1)
[2019-09-28] MEDS: PANTOprazole 40 MG in DEXTROSE 5% 100 ML IV SCH ×3 (13:15→23:09)
[2019-09-28] MEDS ORDERED: METOCLOPRAMIDE HCL INJ 5 MG/ML 2 ML VIAL IV STA (13:22)
[2019-09-28] MEDS ORDERED: PHYTONADIONE 10 MG in SODIUM CHLORIDE 0.9% 50 ML IV ONE (13:30)
--- NOTE | 2019-09-28 14:00 | XRay Report ---
XR ankle LT min 3V routine CLINICAL HISTORY: 79 years-old Male presenting with left ankle pain s/p fall. TECHNIQUE: Frontal, mortise, and lateral views of the left ankle were obtained. COMPARISON: None. FINDINGS: Ankle mortise congruent. No acute fracture or malalignment. No advanced degenerative change. Subcutan eous edema is noted in the lower leg. This is not solely centered at the ankle. Osteopenia may be pre sent. Heterogeneity of medullary bone in the distal fibula without a focal fracture plane. IMPRESSION: 1. Heterogeneity medullary bone of the distal fibula without a focal fracture plane. This may relate to osteopenia. No demonstrable evidence of acute osseous injury. 2. Nonspecific subcutaneous edema. Electronically signed by: Osiel Rose M.D. 09/28/2019 1:59 PM
--- NOTE | 2019-09-28 14:01 | XRay Report ---
XR hip LT min 2V CLINICAL HISTORY: shortened and rotated trauma. Pain. COMPARISON: None. DISCUSSION: Subcapital fracture left hip. No evidence for dislocation. Slight superior migration left femoral shaft. There is no evidence for soft tissue swelling. IMPRESSION: Subcapital fracture left hip. The above report was generated using voice recognition software. It may contain grammatical, syntax or spelling errors. Electronically signed by: Brennen Nguyen M.D. 09/28/2019 2:00 PM
--- NOTE | 2019-09-28 14:02 | XRay Report ---
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 Mild pulmonary vascular congestion. Calcified plaque of th e thoracic aortic arch. Unchanged left subclavian pacer/AICD. Blunting of the costophrenic angles sug gests trace pleural effusions. Mild interstitial coarsening. Opacity of the right cardiophrenic angle suggests probable atelectasis. There is no pneumothorax. Mild right hemidiaphragmatic elevation. Deg enerative changes of the shoulders and spine. IMPRESSION: Cardiomegaly with pulmonary vascular congestion and probable trace pleural effusions. The above report was generated using voice recognition software. It may contain grammatical, syntax o r spelling errors. Electronically signed by: Samy Lara M.D. 09/28/2019 2:00 PM
--- NOTE | 2019-09-28 14:49 | History & Physical Report ---
Date of Service September 28, 2019 Assessment & Plan (1) Fall: (2) Closed fracture of left hip: Mr. Cottrell is an 79-year-old male who has significant PMH of CAD with history of stent 2012, chronic combined systolic and diastolic CHF, chronic atrial fibrillation anticoagulated on warfarin, history of VTACH s/p AICD, history of CVA, HTN, HLD, CKD stage IV, T2DM, history of right clear-cell kidney CA s/p ablation, chronic gastritis who presents to [facility] after sustaining mechanical fall at home prior to arrival. In ED patient did have left hip x-ray which revealed subcapital left hip fracture. Hemoglobin and hematocrit decreased from baseline at 6.9 and 21.8, elevated INR 4.8, A/C CKD-4 BUN/creatinine 58/3.79 Chest x-ray revealed pulmonary vascular congestion and probable trace pleural effusions. He remained hemodynamically stable while in ED. He was typed and crossed and transfused 1 unit PRBC. Emesis in ED tested Heme positive Admit to PCU to optimize co morbidities including acute on chronic anemia, acute on chronic CKD stage IV, chronic gastritis with hemorrhage, subtherapeutic INR on warfarin consult Orthopedics Dr. Torres Hip fx protocol ordered pre op antibiotics with cefazolin - pt has GI side effects to oral ceftin but no anaphylaxis reported per patient and family MRSA Swab ordered Acetaminophen 650 every 8 -limited 2 g given history of cirrhosis Tramadol 50 mg every 4 hours as needed pain (patient intolerant oxycodone) IV morphine 2 mg every 2 hours for severe pain Polanco ordered (3) Anemia: H&H 6.9 and 21.8 Currently receiving 1 unit PRBC Continue IV PPI drip Repeat H&H at 7 PM -transfuse to maintain hemoglobin greater than 8 Baseline hemoglobin around 8, nephrology consulted -there was discussion about possible initiation of Procrit due to anemia of chronic disease in setting of CK D stage IV (4) Chronic gastritis: Recent EGD last admission 07/26 12/24 to anemia EGD revealed chronic gastritis with hemorrhage - recommended PPI BID - pt has been complaint with this Patient had episode of emesis in ED which was heme positive scant amount per provider Patient also with scant blood noted in right nasal cavity - ? If heme positive emesis was secondary to this vs findings of chronic gastritis Consult gastroenterology-appreciate their input Continue IV PPI gtt (5) Acute worsening of stage 4 chronic kidney disease: baseline cr 2.8-3.0 bun/cr 58/3.79, likely worsened in setting of hypovolemia Per family patient was to undergo AV fistula next week Consult nephrology Dr. Martin due to worsened anemia along with assistance in volume status management given advanced CKD (6) Chronic atrial fibrillation: Currently rate controlled on metoprolol succinate 100 mg twice daily Supratherapeutic INR 4.8 IV vitamin K 10 mg given in ED Repeat PT/INR at 7 PM Hold Coumadin for now consult cardiology for preop clearance given hx of chronic afib, hx of cva, CAD, S-CHF (7) Chronic systolic heart failure: Secondary to ischemic cardiomyopathy On outpatient regimen of torsemide 100 mg daily, metoprolol Continue metoprolol, hold torsemide for now -will reevaluate volume status post transfusion Monitor daily weight Strict I's and O's Heart healthy, low-sodium diet Obtain echocardiogram (8) CAD (coronary artery disease): No current chest pain or shortness of breath History of stent in 2011 As outpatient was on Plavix, Coumadin, statin, metoprolol Hold Coumadin in setting of subtherapeutic INR Hold Plavix for now until evaluated by cardiology for preoperative clearance Continue statin and metoprolol Obtain echocardiogram (9) HTN (hypertension): Blood pressure currently stable, despite hemoglobin 6.9 Continue metoprolol Hold torsemide for now, monitor volume status closely, likely to need IV Lasix post transfusion (10) DMII (diabetes mellitus, type 2): Last A1c 5.8 On oral glipizide as outpatient Hold glipizide, placed on NovoLog per protocol (11) S/P ICD (internal cardiac defibrillator) procedure: hx of Vtach AICD in place (12) DVT prophylaxis: SCD/TEDS s/p IV Vit K x 10mg due to supratherapeutic INR 4.8 Hold warfarin due to likely procedure Disposition: Admit to PCU, case management consulted Follow-up: PCP Dr. Thomas upon discharge Patient was seen and examined in collaboration with Dr. Aguila, please see addendum Starting 09/29/19 pt will be under the care of Dr. Kumar History of Present Illness Chief Complaint: Mechanical fall prior to arrival. Primary Care Provider: Shade Thomas MD Mr. Cottrell is an 79-year-old male who has significant PMH of CAD with history of stent 2012, chronic combined systolic and diastolic CHF, chronic atrial fibrillation anticoagulated on warfarin, history of VTACH s/p AICD, history of CVA, HTN, HLD, CKD stage IV, T2DM, history of right clear-cell kidney CA s/p ablation, chronic gastritis who presents to [facility] after sustaining mechanical fall at home prior to arrival. Patient was upright when trying to place his slipper on, lost his balance and fell on his left side. He denies hitting head or hugh syncope. He denies feeling dizziness or lightheadedness prior to the fall. He did have significant pain on impact; therefore, was brought to ED. Currently patient states he feels, "fine." He denies any chest pain, shortness of breath, palpitations, fever, chills, sweats, lightheadedness, dizziness, headache, abdominal pain, melena, hematochezia, dysuria, increased urgency or frequency with urination. He did have episode of nausea and emesis in ED. He further complains of significant left-sided hip pain, rated 8/10, nonradiating. , daughter and [id number] are at bedside. He lives at home with his and is mostly independent. He no longer drives but ambulates without assist device. He does not smoke or drink alcohol, occasionally chews snuff a few times a week. His appetite has been good and prior to arrival family feels he has been doing well. He does have history of CHF and last weekend 5 pound weight gain. He was instructed to increase his torsemide 100 mg 2 twice daily for 3 days. His baseline weight is approximately 171. Of significance patient was hospitalized 07/25 to 07/28/2019 secondary to you GIB, ABL anemia while on Coumadin. He did undergo EGD which revealed severe chronic gastritis and was recommended to be on PPI twice daily. In ED patient did have left hip x-ray which revealed subcapital left hip fracture. Hemoglobin and hematocrit decreased from baseline at 6.9 and 21.8, elevated INR 4.8, A/C CKD-4 BUN/creatinine 58/3.79 Chest x-ray revealed pulmonary vascular congestion and probable trace pleural effusions. He remained hemodynamically stable while in ED. He was typed and crossed and transfused 1 unit PRBC. Allergies Allergy/AdvReac Type Severity Reaction Status Date / Time fentanyl Allergy Severe Decreased Verified 09/28/19 13:19 oxygen saturation, low RR, unresponsive midazolam Allergy Severe Decreased Verified 09/28/19 13:19 oxygen saturation, low RR, unresponsive. codeine Allergy Unknown GI SYMPTOMS Verified 09/28/19 13:19 promethazine [From Phenergan] AdvReac Severe severe Verified 09/28/19 13:19 fatigue BRIANA Inhibitors AdvReac Mild cough, Verified 09/28/19 13:19 cefuroxime AdvReac Mild GI SYMPTOMS Verified 09/28/19 13:19 Home Medications Home Medications Medication Instructions Recorded Confirmed Type clopidogrel [Plavix] 75 mg PO QAM 08/16/18 09/28/19 History coenzyme Q10 [Co Q-10] 10 mg PO QAM 08/16/18 09/28/19 History cyanocobalamin (vitamin B-12) 1,000 mcg PO QAM 08/16/18 09/28/19 History ferrous gluconate 324 mg PO QAM 08/16/18 09/28/19 History multivitamin [Multiple Vitamins] 1 tab PO QAM 08/16/18 09/28/19 History nitroglycerin [Nitrostat] 0.4 mg SUBLINGUAL UD PRN 08/16/18 09/28/19 History rosuvastatin [Crestor] 20 mg PO QAM 08/16/18 09/28/19 History sertraline 50 mg PO QAM 08/16/18 09/28/19 History glipizide 2.5 mg PO BID #30 tab 02/01/19 09/28/19 Rx dextromethorphan-guaifenesin 1 tab PO Q12H PRN 03/17/19 09/28/19 History [Mucinex DM] testosterone 1 packet TRANSDERMAL DAILY 03/17/19 09/28/19 History warfarin 5 mg PO [id number] 03/17/19 09/28/19 History torsemide 100 mg PO DAILY 05/02/19 09/28/19 History pantoprazole 40 mg PO BID 30 Days #60 tab 07/28/19 09/28/19 Rx metoprolol succinate 100 mg PO BID 09/28/19 09/28/19 History warfarin 2.5 mg PO WK 09/28/19 09/28/19 History Past Med/Surg History Medical History CKD (chronic kidney disease), stage IV (Chronic) Cirrhosis of liver (Chronic) Anticoagulant long-term use (Chronic) Ischemic cardiomyopathy (Chronic) DMII (diabetes mellitus, type 2) (Chronic) CAD (coronary artery disease) (Chronic) Pericardial effusion (Resolved) Anemia in chronic kidney disease (Chronic) SBP (spontaneous bacterial peritonitis) (Resolved) Depression (Chronic) HTN (hypertension) (Chronic) History of renal carcinoma (Chronic) Chronic systolic heart failure (Chronic) Ascites (Resolved) CAD (coronary artery disease) (Chronic) "2006 - PCI to LAD cath 2011 - no significant obstructive disease" CVA (cerebral vascular accident) (Chronic) Squamous cell carcinoma (Chronic) Basal cell carcinoma (Chronic) V tach (Chronic) "s/p AICD placement" Gross hematuria (Resolved) Myocardial infarction Surgical History History of prior ablation treatment (Chronic) CT guided tissue ablation R kidney S/P ICD (internal cardiac defibrillator) procedure (Chronic) History of cataract surgery (Chronic) Family History Father Coronary heart disease Mother Coronary heart disease Social History Preferred Language: Beninese Communication Ability: Effective Visual Impairment: No Limitations Metallurgical Inspector Required: No Beliefs That Will Affect Care: None marital status: Current Living Situation: Spouse and Family Other Information That Helps Us Care for You: No Feels Safe at Home: Yes Safety Concerns: Feels Safe At This Time Smoking Status: Former smoker Tobacco Type: cigarettes ; Do You Dip or Chew Tobacco: Yes ; Second Hand Exposure: No ; Tobacco Cessation Education Requested by Patient: No Hx Alcohol Use: No Hx Substance Use: No Review of Systems Review of Systems: All systems reviewed & are unremarkable except as noted in HPI & below Physical Exam Physical Exam: Constitutional: Elderly, male, pale, vitals as above, NAD, sitting up in bed, answers questions appropriately Head: Normocephalic, Atraumatic Eyes: PERRL, conjunctivae normal, anicteric sclerae ENMT: external ear and nose normal, oropharynx with dry mucous membranes Neck: trachea midline, no thyromegaly normal visual inspection Respiratory: normal respiratory effort, lungs clear to auscultation with decreased breath sounds at bases, no wheeze, rales, rhonchi. Normal insp/exp effort, no accessory muscle use Cardiovascular: Irr/Irr, 2/6 LAURA noted throughout precordium, no edema Vessels: no JVD or carotid bruit Chest: normal inspection of chest Abdomen: normal bowel sounds x 4, soft, nontender, +hepatomegaly, Musculoskeletal: no cyanosis or clubbing, cap refill > 2, extremities motor strength 5/5 except LLE not examined due to fracture. LLE inverted and shortened Skin: no rashes, warm and dry normal turgor Neurologic: PERRL, EOMI, accommodation nl, no face palsy, no dysarthria CN's II-XI intact bilaterally and moves all extremities Psychiatric: A+Ox3, euthymic affect Lymphatic: no cervical or axillary lymphadenopathy : deferred Results & Data Vital Signs (Past 12 Hours) Vital Signs Temp Pulse Resp BP Pulse Ox 09/28/19 14:36 36.5 C 69 12 116/63 96 09/28/19 14:21 36.4 C L 67 23 129/73 97 09/28/19 14:05 36.5 C 65 20 102/74 95 09/28/19 11:31 36.7 C 74 21 139/128 H 97 Laboratory Results Short CBC 09/28/19 09/28/19 Range/Units 11:58 11:58 WBC 6.24 (4.8-10.8) K/uL Hgb 6.9 L* (14.0-18.0) g/dL Hct 21.8 L (42-52) % Plt Count 134 (130-400) K/uL Creatinine 3.79 H (0.6-1.4) mg/dl BMP 09/28/19 11:58 Sodium 139 Potassium 3.5 Chloride 106 Carbon Dioxide 27 BUN 58 H Creatinine 3.79 H Glucose 114 H Calcium 8.7 Diagnostic Findings Hip Xray: IMPRESSION: Subcapital fracture left hip. Head CT: Impression: No acute intracranial abnormality. CXR: IMPRESSION: Cardiomegaly with pulmonary vascular congestion and probable trace pleural effusions. Ankle Xray: IMPRESSION: 1. Heterogeneity medullary bone of the distal fibula without a focal fracture plane. This may relate to osteopenia. No demonstrable evidence of acute osseous injury. 2. Nonspecific subcutaneous edema. Medications Administered Pantoprazole Sodium 40 mg/ (Dextrose) 100 mls @ 20 mls/hr IV Q5H PAVAN Stop: 10/28/19 12:59 Last Admin: 09/28/19 13:15 Dose: 20 mls/hr Documented by: [id number] Discontinued Medications Pantoprazole Sodium 80 mg/ (Dextrose) 120 mls @ 480 mls/hr IV NOW ONE Stop: 09/28/19 12:59 Last Infusion: 09/28/19 13:15 Dose: 0 mls/hr Documented by: [id number] Admin: 09/28/19 13:00 Dose: 480 mls/hr Documented by: [id number] Phytonadione 10 mg/ Sodium (Chloride) 51 mls @ 101 mls/hr IV NOW ONE Stop: 09/28/19 14:00 Last Admin: 09/28/19 14:00 Dose: 101 mls/hr Documented by: [id number] Morphine Sulfate (Morphine Sulfate) 4 mg IV NOW STA Stop: 09/28/19 11:49 Last Admin: 09/28/19 12:15 Dose: 4 mg Documented by: [id number] Ondansetron HCl (Zofran) 4 mg IV NOW STA Stop: 09/28/19 12:29 Last Admin: 09/28/19 12:38 Dose: 4 mg Documented by: [id number] Ondansetron HCl (Zofran) 4 mg IV NOW STA Stop: 09/28/19 12:31 Last Admin: 09/28/19 12:38 Dose: Not Given Documented by: [id number] ECG Rate (beats per minute): 61 Rhythm: atrial fibrillation Findings: + LPFB and + RBBB Change: no significant change (07/25/19) Code Status & VTE Plan Code Status DNR Polst states DNR/DNI, limited additional interventions, okay to trial IV hydration, antibiotics Family okay with blood products and emergent procedures VTE Prophylaxis Plan VTE Prophylaxis will be ordered: Yes Supervising Physician Co-Signing Physician Notes Attending Addendum: care coordinated with YSABEL Laura please refer to her notes for full details, I agree with her notes patient seen and examined, records reviewed by myself as well on exam, patient seen drowsy after just receiving analgesic easily awakened, states hip pain is improving denies chest pain, dyspnea, dizziness, nausea no other symptoms VS noted and reviewed orientedx 3 , not in distress, speaks in sentences with no effort nor accessory muscle use normal rate, regular rhythm, no murmurs clear breath sounds bilaterally non distended, soft, nontender left lower extremity: (+) external rotation no bipedal edema, erythema, warmth no neuro deficits WBC 7.5 Hg 8.1 Crea 3.79 ASSESSMENT AND PLAN LEFT HIP SUBCAPITAL FRACTURE s/p Mechanical Fall Ortho consulted Cardiology consulted for Pre-Op Evaluation given history of CAD, Systolic CHF ACUTE ON CHRONIC ANEMIA R/O UPPER GI BLEED 2 units PRBC ordered Protonix drip GI consulted ACUTE RENAL FAILURE ON CKD 4 Nephrology consulted other diagnoses and plan of care as per YSABEL Ibarra notes Armando Aguila MD (1) DMII (diabetes mellitus, type 2) Diabetes mellitus complication status: without complication Diabetes mellitus long-term insulin use: without theater technician use Qualified Code(s): E11.9 - Type 2 diabetes mellitus without complications (2) CAD (coronary artery disease) Associated angina: without angina Coronary Disease-Associated Artery/Lesion type: [place] artery [place] vs. transplanted heart: [place] heart Qualified Code(s): I25.10 - Atherosclerotic heart disease of [place] coronary artery without angina pectoris (3) Anemia Anemia type: unspecified type Qualified Code(s): D64.9 - Anemia, unspecified (4) Fall Encounter type: initial encounter Qualified Code(s): W19.XXXA - Unspecified fall, initial encounter (5) Closed fracture of left hip Encounter type: initial encounter Qualified Code(s): S72.002A - Fracture of unspecified part of neck of left femur, initial encounter for closed fracture
[2019-09-28 16:45] LABS: Appearance Urine Cloudy (Clear); Bacteria Urine Automated Negative (Negative); Bilirubin Urine Negative (Negative); Blood Urine 1+ (Negative); Color Urine Yellow; Epithelial Cell Urine Auto 20-30 /lpf (0-5); Glucose Urine UA Negative (Negative); Ketones Urine Negative (Negative); Leukocyte Esterase Urine Negative (Negative); Nitrite Urine Negative (Negative); Protein Urine 1+ (Negative); Specific Gravity Urine 1.015 (1.000-1.030); Urobilinogen Urine Negative (Negative)
[2019-09-28] MEDS ORDERED: POLYETHYLENE (MIRALAX) 17 GM PACK PO PRN (17:04)
[2019-09-28] MEDS ORDERED: GLUCOSE 40% GEL 15 GM TUBE PO PRN (17:04)
[2019-09-28] MEDS ORDERED: BISACODYL 10 MG SUPP PR PRN (17:04)
[2019-09-28] MEDS ORDERED: ONDANSETRON INJ 2 MG/ML 2 ML VIAL IV PRN (17:04)
[2019-09-28] MEDS ORDERED: CARBOHYDRATES FOR HYPOGLYCEMIA PO PRN (17:04)
[2019-09-28] MEDS ORDERED: GLUCAGON FOR INJ 1 MG VIAL SQ PRN (17:04)
[2019-09-28] MEDS ORDERED: MoRPHine SULFATE 2 MG/ML CARP IV PRN (17:04)
[2019-09-28] MEDS ORDERED: NALOXONE HCL 0.4 MG/1 ML VIAL/CARP IV PRN (17:04)
[2019-09-28] MEDS ORDERED: GLUCOSE 10 TABS/TUBE PO PRN (17:04)
--- NOTE | 2019-09-28 17:22 | Emergency Department Note ---
Entered by Sameer Cortes acting as a scribe for Crow Monsivais MD History of Present Illness General Chief complaint: Fall Time Seen by Provider: 09/28/19 11:34 Source: patient and family History of Present Illness Provider complaint: fall pain left side Onset (ago): hour(s) less than 1 Location: pelvis, lower extremity and left Radiation: non-radiation Pain Consistency: + constant Maximum Pain Intensity: 5 Exacerbated By: + movement and + other (touch ) Associated symptoms: + denies other symptoms The patient is a 79 y/o male with a past medical history of fluid chronic syst olic heart failure secondary to ischemic cardiomyopathy (EF 40 to 45%, TTE 2018), hx VT sp ICD placement, hypertension, hyperlipidemia, coronary artery disease status post stenting, atrial fibrillation on anticoagulation, Cirrhosis as per records, CKD (baseline creatinine 3), chronic anemia (hemoglobin 9, DM2 on oral medications skin cancer sp surgery, past tobacco alcohol abuse as per records, who presents to the emergency department for evaluation following an episode of a fall that occurred prior to arrival, resulting in constant left sided pain. The patient states that he did not hit his head or loss consciousness. He notes he has pain on his left hip and on the left leg. The patient denies shortness of breath, chest pains, and any other symptoms. The patient notes that he is on blood thinners. The patient daughter notes she is worried about weight gain. Home Medications Home Medications Medication Instructions Recorded Confirmed Type clopidogrel [Plavix] 75 mg PO QAM 08/16/18 09/28/19 History coenzyme Q10 [Co Q-10] 10 mg PO QAM 08/16/18 09/28/19 History cyanocobalamin (vitamin B-12) 1,000 mcg PO QAM 08/16/18 09/28/19 History ferrous gluconate 324 mg PO QAM 08/16/18 09/28/19 History multivitamin [Multiple Vitamins] 1 tab PO QAM 08/16/18 09/28/19 History nitroglycerin [Nitrostat] 0.4 mg SUBLINGUAL UD PRN 08/16/18 09/28/19 History rosuvastatin [Crestor] 20 mg PO QAM 08/16/18 09/28/19 History sertraline 50 mg PO QAM 08/16/18 09/28/19 History glipizide 2.5 mg PO BID #30 tab 02/01/19 09/28/19 Rx dextromethorphan-guaifenesin 1 tab PO Q12H PRN 03/17/19 09/28/19 History [Mucinex DM] testosterone 1 packet TRANSDERMAL DAILY 03/17/19 09/28/19 History warfarin 5 mg PO 6XWK 03/17/19 09/28/19 History torsemide 100 mg PO DAILY 05/02/19 09/28/19 History pantoprazole 40 mg PO BID 30 Days #60 tab 07/28/19 09/28/19 Rx metoprolol succinate 100 mg PO BID 09/28/19 09/28/19 History warfarin 2.5 mg PO WK 09/28/19 09/28/19 History Allergies Allergy/AdvReac Type Severity Reaction Status Date / Time fentanyl Allergy Severe Decreased Verified 09/28/19 13:19 oxygen saturation, low RR, unresponsive midazolam Allergy Severe Decreased Verified 09/28/19 13:19 oxygen saturation, low RR, unresponsive. codeine Allergy Unknown GI SYMPTOMS Verified 09/28/19 13:19 promethazine [From Phenergan] AdvReac Severe severe Verified 09/28/19 13:19 fatigue BRIANA Inhibitors AdvReac Mild cough, Verified 09/28/19 13:19 cefuroxime AdvReac Mild GI SYMPTOMS Verified 09/28/19 13:19 Past Med/Surg History Medical History CKD (chronic kidney disease), stage IV (Chronic) Cirrhosis of liver (Chronic) Anticoagulant long-term use (Chronic) Ischemic cardiomyopathy (Chronic) DMII (diabetes mellitus, type 2) (Chronic) CAD (coronary artery disease) (Chronic) Pericardial effusion (Resolved) Anemia in chronic kidney disease (Chronic) SBP (spontaneous bacterial peritonitis) (Resolved) Depression (Chronic) HTN (hypertension) (Chronic) History of renal carcinoma (Chronic) Chronic systolic heart failure (Chronic) Ascites (Resolved) CAD (coronary artery disease) (Chronic) "2005 - PCI to LAD cath 2011 - no significant obstructive disease" CVA (cerebral vascular accident) (Chronic) Squamous cell carcinoma (Chronic) Basal cell carcinoma (Chronic) V tach (Chronic) "s/p AICD placement" Gross hematuria (Resolved) Myocardial infarction Surgical History History of prior ablation treatment (Chronic) CT guided tissue ablation R kidney S/P ICD (internal cardiac defibrillator) procedure (Chronic) History of cataract surgery (Chronic) Family History Father Coronary heart disease Mother Coronary heart disease Social History Preferred Language: Mongolian Communication Ability: Effective Visual Impairment: No Limitations [employer]er Required: No Beliefs That Will Affect Care: None marital status: Current Living Situation: Spouse and Family Other Information That Helps Us Care for You: No Feels Safe at Home: Yes Safety Concerns: Feels Safe At This Time Smoking Status: Former smoker Tobacco Type: cigarettes ; Do You Dip or Chew Tobacco: Yes ; Second Hand Exposure: No ; Tobacco Cessation Education Requested by Patient: No Hx Alcohol Use: No Hx Substance Use: No Review of Systems See HPI for pertinent positives & negatives. and A total of 10 systems reviewed and were otherwise negative Physical Exam Vital Signs Vital Signs - 24 hr 09/28/19 11:28 09/28/19 11:31 09/28/19 12:35 Temperature 36.7 C Temperature Source Oral Sepsis Recent Fever Within 48 Hours No Sepsis New/Unexplained Change in Mental Status No Sepsis Action Taken by Nursing No Action Required Pulse Rate 64 74 67 Pulse Rate from SpO2 Sensor 64 72 Pulse Rhythm Irregular Pulse Strength Normal Respiratory Rate 16 21 16 Respiratory Effort / Characteristics Non-Labored Spontaneous Respiratory Depth Normal Respiratory Pattern Regular Blood Pressure 139/128 H 139/128 H 129/73 Blood Pressure Mean 131 131 91 Blood Pressure Position Lying Pulse Oximetry 96 97 96 Oxygen Delivery Method Nasal Cannula Nasal Cannula Oxygen Flow Rate 3 2 09/28/19 12:45 09/28/19 13:00 09/28/19 13:20 Temperature Temperature Source Sepsis Recent Fever Within 48 Hours Sepsis New/Unexplained Change in Mental Status Sepsis Action Taken by Nursing Pulse Rate 75 68 72 Pulse Rate from SpO2 Sensor 74 68 70 Pulse Rhythm Pulse Strength Respiratory Rate 14 14 17 Respiratory Effort / Characteristics Respiratory Depth Respiratory Pattern Blood Pressure 122/56 L 114/62 106/70 Blood Pressure Mean 78 79 82 Blood Pressure Position Pulse Oximetry 95 96 96 Oxygen Delivery Method Nasal Cannula Nasal Cannula Nasal Cannula Oxygen Flow Rate 2 2 2 09/28/19 13:30 09/28/19 13:31 09/28/19 13:45 Temperature Temperature Source Sepsis Recent Fever Within 48 Hours Sepsis New/Unexplained Change in Mental Status Sepsis Action Taken by Nursing Pulse Rate 73 71 73 Pulse Rate from SpO2 Sensor 74 63 82 Pulse Rhythm Pulse Strength Respiratory Rate 12 17 17 Respiratory Effort / Characteristics Respiratory Depth Respiratory Pattern Blood Pressure 118/70 103/72 Blood Pressure Mean 86 82 Blood Pressure Position Pulse Oximetry 98 96 95 Oxygen Delivery Method Nasal Cannula Nasal Cannula Nasal Cannula Oxygen Flow Rate 2 2 2 GENERAL: NAD, non-toxic. EYE EXAM: Normal conjunctiva. PERRL, no anisocoria and EOM's grossly intact w/o pain. OROPHARYNX: Moist mucus membranes. Grossly normal dentition. HEAD: NCAT, no obvious deformities. NECK: Supple, no nuchal rigidity, no adenopathy, non-tender. No signs of meningismus. No C-spine TTP. LUNGS: Clear to auscultation. Normal chest wall mechanics. HEART: NSR, no MRG. CHEST: no TTP or crepitus or bruising, device in left chest. ABDOMEN: Abdomen soft, no TTP, no bruising, normo-active bowel sounds, no ma sses, no rebound or guarding. BACK: No CVA TTP. SKIN: No rashes and no bruising. UPPER EXTREMITIES: Upper extremities are grossly normal. Good range of motion no obvious deformities. LOWER EXTREMITIES: 1+ edema bilaterally. No calf pain. Left LE is shorted and externally rotated. Left hip and ankle pain. Compartment soft, NVI distally. NEURO EXAM: A&O x3, cranial nerves II-XII grossly intact, normal speech, moves all 4 extremities on command w/o issue with exception of the left lower extremit y secondary to pain. Course 1139: Past medical records reviewed. The patient was evaluated in room B05. A complete history and physical exam was performed. 1242: Had brown emesis that was hem positive. 1308: I checked on the patient. The daughter was consented the patient for the transfusion. 1322: I spoke with Sisi Garcia for Dr. Nikole DODGE. They will evaluate for further management. 1400: I spoke to the patient and family and discussed the test results. I updated them on the treatment plan. 1502: I spoke with Dr. Harry DODGE orthopedics. Discussed consult. Administered Medications Pantoprazole Sodium 40 mg/ (Dextrose) 100 mls @ 20 mls/hr IV Q5H PAVAN Stop: 10/28/19 12:59 Last Admin: 09/28/19 13:15 Dose: 20 mls/hr Documented by: [id number] Discontinued Medications Pantoprazole Sodium 80 mg/ (Dextrose) 120 mls @ 480 mls/hr IV NOW ONE Stop: 09/28/19 12:59 Last Infusion: 09/28/19 13:15 Dose: 0 mls/hr Documented by: [id number] Admin: 09/28/19 13:00 Dose: 480 mls/hr Documented by: [id number] Phytonadione 10 mg/ Sodium (Chloride) 51 mls @ 101 mls/hr IV NOW ONE Stop: 09/28/19 14:00 Last Infusion: 09/28/19 14:31 Dose: 0 mls/hr Documented by: [id number] Admin: 09/28/19 14:00 Dose: 101 mls/hr Documented by: [id number] Metoclopramide HCl (Reglan) 10 mg IV NOW STA Stop: 09/28/19 13:23 Last Admin: 09/28/19 17:13 Dose: Not Given Documented by: [id number] Morphine Sulfate (Morphine Sulfate) 4 mg IV NOW STA Stop: 09/28/19 11:49 Last Admin: 09/28/19 12:15 Dose: 4 mg Documented by: [id number] Ondansetron HCl (Zofran) 4 mg IV NOW STA Stop: 09/28/19 12:29 Last Admin: 09/28/19 12:38 Dose: 4 mg Documented by: [id number] Ondansetron HCl (Zofran) 4 mg IV NOW STA Stop: 09/28/19 12:31 Last Admin: 09/28/19 12:38 Dose: Not Given Documented by: [id number] Medical Decision Making Differential Diagnosis Differential includes acute cardiac dysrhythmia, microinfarction, CVA, TIA, dehydration, anemia, electrolyte disturbance, seizure, trauma, intracranial bleeding, acute vascular catastrophe, thoracic aortic dissection, PE, abdominal aortic aneurysm rupture, ectopic rupture. Medical Records Attestation: I reviewed the patient's medical records. Home Medications Current Medication List: was personally reviewed by me Laboratory Data Attestation: I reviewed the patient's lab results. Result diagrams: 09/28/19 11:58 11/07/19 11:58 Lab Results 09/28/19 09/28/19 09/28/19 Range/Units 11:58 11:58 11:58 WBC 6.24 (4.8-10.8) K/uL RBC 2.38 L (4.7-6.1) M/uL Hgb 6.9 L* (14.0-18.0) g/dL Hct 21.8 L (42-52) % MCV 91.6 (80-100) fL MCH 29.0 (25-34) pg MCHC 31.7 L (32-36) g/dL RDW Std Deviation 52.2 H (36.4-46.3) fL RDW Coeff of Dung 15.4 H (11.5-14.5) % Plt Count 134 (130-400) K/uL MPV 10.2 (7.4-10.4) fL Immature Gran % (Auto) 0.2 % Neut % (Auto) 72.0 % Lymph % (Auto) 12.5 % [place] % (Auto) 11.9 % Eos % (Auto) 2.9 % Baso % (Auto) 0.5 % Immature Gran # (Auto) 0.01 (0.00-0.02) K/uL Neut # (Auto) 4.50 (1.4-6.5) K/uL Lymph # (Auto) 0.78 L (1.2-3.4) K/uL [place] # (Auto) 0.74 H (0.11-0.59) K/uL Eos # (Auto) 0.18 (0-0.5) K/uL Baso # (Auto) 0.03 (0-0.2) K/uL Hypochromasia Present PT 44.1 H (9.0-12.0) Seconds INR 4.8 H (0.9-1.1) APTT 43.8 H (21.0-31.0) Seconds PTT Ratio 1.6 Sodium 139 (136-145) mmol/L Potassium 3.5 (3.5-5.1) mmol/L Chloride 106 (98-107) mmol/L Carbon Dioxide 27 (21-32) mmol/L Anion Gap 6.0 (3-11) BUN 58 H (7-18) mg/dl Creatinine 3.79 H (0.6-1.4) mg/dl Est Cr Clr Drug Dosing 16.1 ml/min Est GFR ( Amer) 16.4 Est GFR (Non-Af Amer) 14.1 BUN/Creatinine Ratio 15.4 (10-20) Glucose 114 H (70-99) mg/dl Calcium 8.7 (8.5-10.1) mg/dl Blood Type Antibody Screen Crossmatch 09/28/19 Range/Units 11:58 WBC (4.8-10.8) K/uL RBC (4.7-6.1) M/uL Hgb (14.0-18.0) g/dL Hct (42-52) % MCV (80-100) fL MCH (25-34) pg MCHC (32-36) g/dL RDW Std Deviation (36.4-46.3) fL RDW Coeff of Dung (11.5-14.5) % Plt Count (130-400) K/uL MPV (7.4-10.4) fL Immature Gran % (Auto) % Neut % (Auto) % Lymph % (Auto) % [place] % (Auto) % Eos % (Auto) % Baso % (Auto) % Immature Gran # (Auto) (0.00-0.02) K/uL Neut # (Auto) (1.4-6.5) K/uL Lymph # (Auto) (1.2-3.4) K/uL [place] # (Auto) (0.11-0.59) K/uL Eos # (Auto) (0-0.5) K/uL Baso # (Auto) (0-0.2) K/uL Hypochromasia PT (9.0-12.0) Seconds INR (0.9-1.1) APTT (21.0-31.0) Seconds PTT Ratio Sodium (136-145) mmol/L Potassium (3.5-5.1) mmol/L Chloride (98-107) mmol/L Carbon Dioxide (21-32) mmol/L Anion Gap (3-11) BUN (7-18) mg/dl Creatinine (0.6-1.4) mg/dl Est Cr Clr Drug Dosing ml/min Est GFR ( Amer) Est GFR (Non-Af Amer) BUN/Creatinine Ratio (10-20) Glucose (70-99) mg/dl Calcium (8.5-10.1) mg/dl Blood Type A Positive Antibody Screen NEGATIVE Crossmatch See Detail Imaging Data Radiologist's Impression: Radiology results as stated below per my review and the radiologist's interpretation: CT head/brain wo con CT DOSE: 1042.28 mGycm HISTORY: Trauma. Mental status change. s/p fall on coumadin TECHNIQUE: Multiaxial CT images of the head were performed without the use of intravenous contrast. A dose lowering technique was utilized adhering to the principles of ALARA. Comparison: 03/17/2019 Findings: The paranasal sinuses and mastoid air cells are clear. The calvarium and skull base are intact. The ventricles and sulci are within normal limits. There is no mass, hematoma, midline shift, or acute infarct. Left periventricular low-density focus unaltered from the prior exam. Impression: No acute intracranial abnormality. The above report was generated using voice recognition software. It may contain grammatical, syntax or spelling errors. Electronically signed by: Brennen Nguyen M.D. 09/28/2019 12:28 PM XR hip LT min 2V CLINICAL HISTORY: shortened and rotated trauma. Pain. COMPARISON: None. DISCUSSION: Subcapital fracture left hip. No evidence for dislocation. Slight superior migration left femoral shaft. There is no evidence for soft tissue swelling. IMPRESSION: Subcapital fracture left hip. The above report was generated using voice recognition software. It may contain grammatical, syntax or spelling errors. Electronically signed by: Brennen gNuyen M.D. 09/28/2019 2:00 PM XR ankle LT min 3V routine CLINICAL HISTORY: 79 years-old Male presenting with left ankle pain s/p fall. TECHNIQUE: Frontal, mortise, and lateral views of the left ankle were obtained. COMPARISON: None. FINDINGS: Ankle mortise congruent. No acute fracture or malalignment. No advanced degenerative change. Subcutaneous edema is noted in the lower leg. This is not solely centered at the ankle. Osteopenia may be present. Heterogeneity of medullary bone in the distal fibula without a focal fracture plane. IMPRESSION: 1. Heterogeneity medullary bone of the distal fibula without a focal fracture plane. This may relate to osteopenia. No demonstrable evidence of acute osseous injury. 2. Nonspecific subcutaneous edema. Electronically signed by: Osiel Rose M.D. 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 Mild pulmonary vascular congestion. Calcified plaque of the thoracic aortic arch. Unchanged left subclavian pacer/AICD. Blunting of the costophrenic angles suggests trace pleural effusions. Mild interstitial coarsening. Opacity of the right cardiophrenic angle suggests probable atelectasis. There is no pneumothorax. Mild right hemidiaphragmatic elevation. Degenerative changes of the shoulders and spine. IMPRESSION: Cardiomegaly with pulmonary vascular congestion and probable trace pleural effusions. The above report was generated using voice recognition software. It may contain grammatical, syntax or spelling errors. Electronically signed by: Samy Lara M.D. 09/28/2019 2:00 PM ECG Data Attestation: I personally reviewed and interpreted this ECG as follows: Indication: + other (pre-op screen) Rate (beats per minute): 67 Rhythm: + atrial fibrillation (with RVR) ECG Intervals/blocks: + Right Bundle branch block ECG ST segments: + T-wave inversions (Anterior); no ST depression and no ST elevation ECG Findings: + Other (Wide QRS) Blood Pressure Blood Pressure Findings: Normal blood pressure MDM Narrative The patient is a 79 y/o male with a past medical history of fluid chronic systolic heart failure secondary to ischemic cardiomyopathy (EF 40 to 45%, TTE 2018), hx VT sp ICD placement, hypertension, hyperlipidemia, coronary artery disease status post stenting, atrial fibrillation on anticoagulation, Cirrhosis as per records, CKD (baseline creatinine 3), chronic anemia (hemoglobin 9, DM2 on oral medications skin cancer sp surgery, past tobacco alcohol abuse as per records, who presents to the emergency department for evaluation following an episode of a fall that occurred prior to arrival, resulting in constant left sided pain Patient was seen and evaluated the bedside. The patient did present status post ground level fall. The patient did complain of left-sided pain. On exam the patient did not have any head neck chest abdomen or upper extremity pain. The patient does have significant left hip as well as left ankle pain. The patient did have a CT of the head as the patient does use Coumadin. Patient CT of the brain was negative. X-rays do show that the patient does have a left subcapital hip fracture. The patient was have a Polanco placed. The INR was elevated and the patient did have some coffee-ground emesis. This was heme positive but it was a scant amount. The patient is a prior history of upper GI bleed with gastritis status post endoscopy completed several months prior. The patient was given vitamin K as I do not believe he requires Kcentra at this time given that his discharge hemoglobin was about the same. Patient was consented with the patient's POA/daughter for blood. I did speak the on-call hospitalist agreed to further evaluate treat the patient. PPI bolus and drip ordered. I did speak with the unassigned orthopedist Dr. Torres who agreed to see the patient is a consult tomorrow. Would not benefit from emergent surgery given the multiple m edical problems ongoing at this time. Patient was admitted to the medicine service. Impression & Plan GI (gastrointestinal bleed), CKD (chronic kidney disease) stage 4, GFR 15-29 ml/min, Fall, Closed fracture of left hip Critical Care Time Critical Care Time: Yes Total Critical Care Time: 75 I have personally spent greater than 75 minutes of critical care time in direct management of this patient. This includes bedside care, interpretation of di agnostic studies, and testing, discussion with consultants, patient, and family members, and other require inpatient management activities. This 75 minutes is in excess of all separately billable procedures. Discharge Plan Visit Data Chief Complaint: Fall ED Provider: Crow Monsivais Discharge Problem: GI (gastrointestinal bleed), CKD (chronic kidney disease) stage 4, GFR 15-29 ml/min, Fall, Closed fracture of left hip Patient Disposition: Being Evaluated by Hospitalist Discharge Instructions Interventions: ED Discharge Assessment Last Done: 09/28/19 17:14 Discharge Problem: GI (gastrointestinal bleed) Qualifiers: GI bleed type/associated pathology: unspecified gastrointestinal hemorrhage type Qualified Code(s): K92.2 - Gastrointestinal hemorrhage, unspecified Fall Qualifiers: Encounter type: initial encounter Qualified Code(s): W19.XXXA - Unspecified fall, initial encounter Closed fracture of left hip Qualifiers: Encounter type: initial encounter Qualified Code(s): S72.002A - Fracture of unspecified part of neck of left femur, initial encounter for closed fracture The scribe's documentation has been prepared under my direction and personally reviewed by me in its entirety. I confirm that the note above accurately reflects all work, treatment, procedures, and medical decision making performed by me.
--- NOTE | 2019-09-28 17:44 | Nephrology Consultation ---
Date of Consultation September 28, 2019 Assessment & Plan (1) Acute worsening of stage 4 chronic kidney disease: advanced ckd 4 w/ chronic volume overload and very labile creatinine ranging as OP from upper 2's to mid 3's, most recently 3.8 on 09/25. creatinine 3.8 today, mild TOBIN -strict I/O -no indication currently for urgent dialysis -daily bmp -FR 2L when taking po and <2 gm Na diet (currently NPO) >takes torsemide 100 mg daily >> hold for now >recommend lasix 40 mg iv after pRBC, then lasix 40 mg IV overnight prn worsening volume or respiratory status Present on Admission?: Yes (2) Acute on chronic anemia: Hgb 6.9 on presentation w/ chronic gastritis w/ scant heme + emesis in ER INR 4.8; pt had actually been bridging w/ lovenox in prep for AVF surgery on 10/02 > per epic, last coumadin dose was to be 09/26, then start lovenox 09/29 >getting pRBC 1 unit; on PPI gtt; GI to evaluate >> post transfusion hgb 8.1 -would not initiate procrit w/ fracture/ GI bleeding; again have been urging this as OP and will cont to discuss Present on Admission?: Yes (3) Closed fracture of left hip: ortho c/s pending; will obviously need to stabilize other active clinical issues before OR Present on Admission?: Yes History of Present Illness Reason for Consultation: TOBIN on CKD4 Requesting Physician: Dr Aguila Attending Physician: Armando Aguila MD History of Present Illness 79 y/o M whom I'm asked to see for TOBIN on CKD 4 after he was admitted today for L hip fracture after a fall at home and found to have acute on chronic anemia w/ hgb 6.9. PMH includes L MCA stroke 2014, cad w/ ischemic [place] [employer] EF 20-25%, liver cirrhosis dx'd 07/2018 w/ SBP, presumptive clear cell renal CA s/p cryoablation R kidney 11/2017, chronic A fib on coumadin, DM on po meds, chronic gastritis, hx of urethral stricture/ surgery, hospitalized 02/2019 w/ influenza, hospitalized jul 2019 w/ acute anemia hgb 6.8. he was admitted here in 12/2018 w/ hyperkalemia, TOBIN and pericardial effusion: required a few txs of acute dialysis that admission. he follows w/ me in CKD clinic. we had recommended procrit (after approval from heme/onc d/t renal CA hx) in July but family declined, citing too many clinical events. plan is for in center HD when need arises; was to get AVF created next week and had been bridging w/ lovenox in preparation. he had labs 09/25 w/ creatinine 3.8 and wt trending up despite 48 hrs of increased diuretics. creatinine on presentation today was 3.8, K 3.5. Allergies Allergy/AdvReac Type Severity Reaction Status Date / Time fentanyl Allergy Severe Decreased Verified 09/28/19 13:19 oxygen saturation, low RR, unresponsive midazolam Allergy Severe Decreased Verified 09/28/19 13: oxygen saturation, low RR, unresponsive. codeine Allergy Unknown GI SYMPTOMS Verified 09/28/19 13:19 promethazine [From Phenergan] AdvReac Severe severe Verified 09/28/19 13:19 fatigue BRIANA Inhibitors AdvReac Mild cough, Verified 09/28/19 13:19 cefuroxime AdvReac Mild GI SYMPTOMS Verified 09/28/19 13:19 Home Medications Home Medications Medication Instructions Recorded Confirmed Type clopidogrel [Plavix] 75 mg PO QAM 08/16/18 09/28/19 History coenzyme Q10 [Co Q-10] 10 mg PO QAM 08/16/18 09/28/19 History cyanocobalamin (vitamin B-12) 1,000 mcg PO QAM 08/16/18 09/28/19 History ferrous gluconate 324 mg PO QAM 08/16/18 09/28/19 History multivitamin [Multiple Vitamins] 1 tab PO QAM 08/16/18 09/28/19 History nitroglycerin [Nitrostat] 0.4 mg SUBLINGUAL UD PRN 08/16/18 09/28/19 History rosuvastatin [Crestor] 20 mg PO QAM 08/16/18 09/28/19 History sertraline 50 mg PO QAM 08/16/18 09/28/19 History glipizide 2.5 mg PO BID #30 tab 02/01/19 09/28/19 Rx dextromethorphan-guaifenesin 1 tab PO Q12H PRN 03/17/19 09/28/19 History [Mucinex DM] testosterone 1 packet TRANSDERMAL DAILY 03/17/19 09/28/19 History warfarin 5 mg PO 6XWK 03/17/19 09/28/19 History torsemide 100 mg PO DAILY 05/02/19 09/28/19 History pantoprazole 40 mg PO BID 30 Days #60 tab 07/28/19 09/28/19 Rx metoprolol succinate 100 mg PO BID 09/28/19 09/28/19 History warfarin 2.5 mg PO WK 09/28/19 09/28/19 History Patient History Medical History CKD (chronic kidney disease), stage IV (Chronic) Cirrhosis of liver (Chronic) Anticoagulant long-term use (Chronic) Ischemic cardiomyopathy (Chronic) DMII (diabetes mellitus, type 2) (Chronic) CAD (coronary artery disease) (Chronic) Pericardial effusion (Resolved) Anemia in chronic kidney disease (Chronic) SBP (spontaneous bacterial peritonitis) (Resolved) Depression (Chronic) HTN (hypertension) (Chronic) History of renal carcinoma (Chronic) Chronic systolic heart failure (Chronic) Ascites (Resolved) CAD (coronary artery disease) (Chronic) "2005 - PCI to LAD cath 2011 - no significant obstructive disease" CVA (cerebral vascular accident) (Chronic) Squamous cell carcinoma (Chronic) Basal cell carcinoma (Chronic) V tach (Chronic) "s/p AICD placement" Gross hematuria (Resolved) Myocardial infarction Surgical History History of prior ablation treatment (Chronic) CT guided tissue ablation R kidney S/P ICD (internal cardiac defibrillator) procedure (Chronic) History of cataract surgery (Chronic) Family History Father Coronary heart disease Mother Coronary heart disease Social History Preferred Language: Samoan Communication Ability: Effective Visual Impairment: No Limitations 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 Machine 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 Required: No Beliefs That Will Affect Care: None marital status: Current Living Situation: Spouse and Family Other Information That Helps Us Care for You: No Feels Safe at Home: Yes Safety Concerns: Feels Safe At This Time Smoking Status: Former smoker Tobacco Type: cigarettes ; Do You Dip or Chew Tobacco: Yes ; Second Hand Exposure: No ; Tobacco Cessation Education Requested by Patient: No Hx Alcohol Use: No Hx Substance Use: No Review of Systems Review of Systems: All systems reviewed & are unremarkable except as noted in HPI & below Cardiovascular: + dyspnea on exertion; no dyspnea and no palpitations Gastrointestinal: no early satiety, no vomiting and no diarrhea/loose stools Musculoskeletal: + joint pain (L hip) Hematologic / Lymphatic: + easy bleeding Physical Exam Constitutional: well developed, well nourished and comfortable; no acute distress sleeping on 02nc, wakens fully, oriented to self and place Eyes: EOM intact bilaterally ENMT: Ears: no external ear abnormality Nose: no external nose abnormality Mouth: + dry oral mucous membranes Neck: no nuchal rigidity Respiratory: normal respiratory effort and + paradoxical thoraco-abdominal movement Auscultation: + diminished lung sounds Cardiovascular: Rate/Rhythm: + irregularly irregular Heart Sounds: + murmur Extremities: no edema Gastrointestinal (Abdomen): Inspection/Auscultation: normal bowel sounds Percussion/Palpation: abdomen soft; abdomen nontender Musculoskeletal: Extremities: strength 5/5 throughout Skin: no rashes, warm and dry + pallor Neurologic: hoffman, fluent speech, no tremor Psychiatric: Orientation: oriented to person and oriented to place Affect: euthymic affect Insight: + limited insight Judgement: + limited judgement Genitourinary: browning w/ clear urine Results & Data Vital Signs (Past 12 Hours) Vital Signs Temp Pulse Resp BP Pulse Ox 09/28/19 16:26 36.5 C 71 12 107/67 98 09/28/19 16:06 36.9 C 69 15 114/77 98 09/28/19 15:06 36.5 C 72 15 124/86 94 09/28/19 15:00 61 17 124/86 98 09/28/19 14:45 70 14 125/84 94 09/28/19 14:36 36.5 C 69 12 116/63 96 09/28/19 14:30 77 14 116/63 98 09/28/19 14:21 36.4 C L 67 23 129/73 97 09/28/19 14:15 66 14 129/73 97 09/28/19 14:10 70 13 110/72 96 09/28/19 14:05 36.5 C 65 20 102/74 95 09/28/19 14:00 73 15 102/74 95 09/28/19 13:58 74 14 124/67 92 09/28/19 13:45 73 17 103/72 95 09/28/19 13:31 71 17 96 09/28/19 13:30 73 12 118/70 98 09/28/19 13:20 72 17 106/70 96 09/28/19 13:00 68 14 114/62 96 09/28/19 12:45 75 14 122/56 L 95 09/28/19 12:35 67 16 129/73 96 09/28/19 11:31 36.7 C 74 21 139/128 H 97 09/28/19 11:28 64 16 139/128 H 96 Laboratory Results 09/28/19 11:58 09/28/19 11:58 UA reviewed Diagnostic Findings L hip XR: IMPRESSION: Subcapital fracture left hip. head ct: no acute i-c process cxr: IMPRESSION: Cardiomegaly with pulmonary vascular congestion and probable trace pleural effusions. L ankle XR: 1. Heterogeneity medullary bone of the distal fibula without a focal fracture plane. This may relate to osteopenia. No demonstrable evidence of acute osseous injury. 2. Nonspecific subcutaneous edema. (1) Closed fracture of left hip Encounter type: initial encounter Qualified Code(s): S72.002A - Fracture of unspecified part of neck of left femur, initial encounter for closed fracture
[2019-09-28] MEDS: TRAMADOL HCL 50 MG TABLET PO PRN (17:55)
[2019-09-28] MEDS: INSULIN ASPART 100 UNITS/ML 3 ML PEN SC SCH ×2 (17:56→21:37)
[2019-09-28] MEDS: ACETAMINOPHEN 500 MG TAB PO SCH ×2 (18:40→21:39)
[2019-09-28 19:48] LABS: Basophils # (auto) 0.03 K/uL (0-0.2); Basophils % (auto) 0.4 %; Eosinophils # (auto) 0.05 K/uL (0-0.5); Eosinophils % (auto) 0.7 %; Hematocrit (blood only) 25.7 % (42-52); Hemoglobin 8.1 g/dL (14.0-18.0); Immature Granulocytes # (auto) 0.01 K/uL (0.00-0.02); Immature Granulocytes % (auto) 0.1 %; Lymphocytes # (auto) 0.64 K/uL (1.2-3.4); Lymphocytes % (auto) 8.4 %; Mean Corpuscular Hemoglobin 28.6 pg (25-34); Mean Corpuscular Hgb Conc 31.5 g/dL (32-36); Mean Corpuscular Volume 90.8 fL (80-100); Mean Platelet Volume 10.1 fL (7.4-10.4); Monocytes % (auto) 13.2 %; Neutrophils # (auto) 5.86 K/uL (1.4-6.5); Neutrophils % (auto) 77.2 %; Platelet Count 130 K/uL (130-400); RDW Coefficient of Variation 15.8 % (11.5-14.5); RDW Standard Deviation 52.6 fL (36.4-46.3); Red Blood Count 2.83 M/uL (4.7-6.1); White Blood Count 7.59 K/uL (4.8-10.8)
[2019-09-28 20:06] LABS: INR 2.7 (0.9-1.1); Prothrombin Time 25.5 Seconds (9.0-12.0)
[2019-09-28] MEDS ORDERED: FUROSEMIDE 40 MG/4 ML VIAL IV STA (20:40)
[2019-09-28] MEDS ORDERED: PHYTONADIONE 5 MG TAB PO STA (20:41)
[2019-09-28] MEDS: DOCUSATE SODIUM/SENNA 50/8.6MG TAB PO SCH (21:37)
[2019-09-28] MEDS: METOPROLOL SUCC 50MG EXT REL TAB PO SCH (21:38)
[2019-09-29] MEDS: PANTOprazole 40 MG in DEXTROSE 5% 100 ML IV SCH ×4 (04:00→22:01)
[2019-09-29] MEDS ORDERED: CEFAZOLIN 2000MG 2,000 MG/15 ML SYR IV SCH (06:00)
[2019-09-29 06:18] LABS: Hematocrit (blood only) 27.7 % (42-52); Hemoglobin 8.9 g/dL (14.0-18.0); Mean Corpuscular Hemoglobin 29.1 pg (25-34); Mean Corpuscular Hgb Conc 32.1 g/dL (32-36); Mean Corpuscular Volume 90.5 fL (80-100); Mean Platelet Volume 9.4 fL (7.4-10.4); Platelet Count 119 K/uL (130-400); Red Blood Count 3.06 M/uL (4.7-6.1); White Blood Count 7.47 K/uL (4.8-10.8)
[2019-09-29 06:28] LABS: INR 1.7 (0.9-1.1); Prothrombin Time 16.6 Seconds (9.0-12.0)
[2019-09-29 06:51] LABS: Albumin Level 3.4 gm/dl (3.4-5.0); BUN Creatinine Ratio 15.3 (10-20); Calcium 8.8 mg/dl (8.5-10.1); Creatinine Clr Calc Pharmacy 16.1 ml/min; Est GFR (African American) 16.4; Est GFR (Non-African American) 14.1; Magnesium 2.4 mg/dl (1.8-2.4); Potassium 3.8 mmol/L (3.5-5.1)
[2019-09-29 06:54] LABS: Albumin Globulin Ratio 0.9 (0.9-2); Bilirubin,Total 1.1 mg/dl (0.2-1); Globulin 3.6 gm/dl (2.5-4.0)
[2019-09-29 06:55] LABS: Estimated Average Glucose 111 mg/dl; Hemoglobin A1C 5.5 % (4.5-5.6)
--- NOTE | 2019-09-29 07:15 | Nephrology Progress Note ---
Date of Service September 29, 2019 Assessment & Plan (1) Acute worsening of stage 4 chronic kidney disease: advanced ckd 4 w/ chronic volume overload and very labile creatinine ranging as OP from upper 2's to mid 3's, most recently 3.8 on 09/25. creatinine 3.8 again today, mild TOBIN -strict I/O -no indication currently for urgent dialysis -daily bmp -FR 2L when taking po and <2 gm Na diet (currently NPO) >takes torsemide 100 mg daily >> hold for now >had lasix 40 mg iv after pRBC, for now lasix 40 mg IV prn worsening volume or respiratory status >>>from a renal standpoint, ok for OR to repair hip Care coordinated w/ Wang Alexander and Jorgito (2) Acute on chronic anemia: Hgb 6.9 on presentation w/ chronic gastritis w/ scant heme + emesis in ER INR 4.8>1.7; pt had actually been bridging w/ lovenox in prep for AVF surgery on 10/02 > per epic, last coumadin dose was to be 09/26, then start lovenox 09/29 >had pRBC 2 units; on PPI gtt; GI considering EGD >> post transfusion hgb 8.1, up to 8.9 this am -would not initiate procrit w/ fracture/ GI bleeding; again have been urging this as OP and will cont to discuss (3) Closed fracture of left hip: for OR today; reasonable from neph standpoint to repair hip; avoid IV contrast and nsaids Subjective seen on rounds this am 0800; no sob, no edema, ongoing L hip pain, no n/v; has had 2 units pRBC; hgb stable; ortho proposes 1300 OR; GI following as well Review of Systems Review of Systems: All systems reviewed & are unremarkable except as noted in HPI & below Constitutional: + fatigue and + weakness Genitourinary: + problem reported (toleratign browning) Physical Exam Constitutional: well developed, well nourished and comfortable; no acute distress on 02nc Eyes: EOM intact bilaterally ENMT: Ears: + hearing impairment; no external ear abnormality Nose: no external nose abnormality Mouth: + dry oral mucous membranes Neck: no nuchal rigidity Respiratory: normal respiratory effort and + paradoxical thoraco-abdominal movement Auscultation: + diminished lung sounds Cardiovascular: Rate/Rhythm: + irregularly irregular Heart Sounds: + murmur Extremities: no edema Gastrointestinal (Abdomen): Inspection/Auscultation: normal bowel sounds Percussion/Palpation: abdomen soft; abdomen nontender Musculoskeletal: Extremities: strength 5/5 throughout Skin: no rashes, warm and dry + pallor Neurologic: hoffman, fluent speech, no tremor Psychiatric: Orientation: oriented to person and oriented to place Affect: euthymic affect Insight: + limited insight Judgement: + limited judgement Results & Data Vital Signs (Past 12 Hours) Vital Signs Temp Pulse Pulse Pulse Resp BP BP 09/29/19 04:00 09/29/19 03:47 36.8 C 62 20 09/29/19 00:15 36.3 C L 62 16 108/65 09/29/19 00:00 09/28/19 23:27 36.6 C 62 14 108/68 09/28/19 23:15 36.3 C L 63 16 106/60 09/28/19 22:45 36.3 C L 63 16 108/59 L 09/28/19 22:06 36.8 C 65 121/70 09/28/19 21:51 36.5 C 52 L 127/69 09/28/19 21:32 37.0 C 119/64 09/28/19 19:47 36.5 C 64 16 BP Pulse Ox Pulse Ox 09/29/19 04:00 97 09/29/19 03:47 133/78 95 09/29/19 00:15 98 09/29/19 00:00 99 09/28/19 23:27 98 09/28/19 23:15 98 09/28/19 22:45 99 09/28/19 22:06 09/28/19 21:51 99 09/28/19 21:32 09/28/19 19:47 130/76 94 Laboratory Results 09/29/19 06:03 09/29/19 06:03 (1) Closed fracture of left hip Encounter type: initial encounter Qualified Code(s): S72.002A - Fracture of unspecified part of neck of left femur, initial encounter for closed fracture
[2019-09-29] MEDS: ACETAMINOPHEN 500 MG TAB PO SCH ×4 (08:08→22:03)
[2019-09-29] MEDS: METOPROLOL SUCC 50MG EXT REL TAB PO SCH ×2 (08:09→22:05)
[2019-09-29] MEDS: SERTRALINE HCL 50 MG TABLET PO SCH (08:10)
[2019-09-29] MEDS: FERROUS GLUCONATE 324 MG TAB PO SCH (08:10)
[2019-09-29] MEDS: ROSUVASTATIN CALCIUM 20 MG TAB PO SCH (08:10)
--- NOTE | 2019-09-29 08:26 | Consultation Report ---
DATE OF CONSULTATION: 09/29/2019 ORTHOPEDIC CONSULTATION CHIEF COMPLAINT: Left hip pain. HISTORY OF PRESENT ILLNESS: The patient is an 79-year-old elderly male with multiple medical comorbidities, who sustained a mechanical fall yesterday. He is a previous ambulator with use of a walker. No preexisting hip pain. He was walking to get his something when his slipper caught, fell and landed on his left hip. He had acute onset of pain. He was brought to the Emergency Room where x-rays revealed a hip fracture. He was admitted to the hospital and we were consulted. The patient has multiple comorbidities. He is on Coumadin. He had a supratherapeutic INR on admission. Denies any other pains. No head injury, no loss of consciousness. No preexisting hip pain. PAST MEDICAL HISTORY: Significant for: 1. Coronary artery disease status post cardiac stent placement. 2. Congestive heart failure. 3. History of cardiomyopathy. 4. Atrial fibrillation, on Coumadin. 5. History of V-tach with a defibrillator in place. 6. Cerebrovascular disease. 7. Hypertension. 8. Elevated cholesterol. 9. Stage IV kidney disease. 10. Diabetes type 2. 11. Kidney cancer. 12. Chronic gastritis. 13. Severe anemia on admission. The remainder of the past medical history is per the admission H and P. PHYSICAL EXAMINATION: VITAL SIGNS: Temperature is 36.5. Vital signs stable. GENERAL: Physical examination shows a pleasant elderly male. He talks with a little bit of a slurred speech, but I think that is his baseline. He is awake, alert and oriented. MUSCULOSKELETAL: General musculoskeletal exam reveals some skin bruises throughout. He has got painless range of motion of his neck and both upper extremities and his right lower extremity. Examination of the left lower extremity reveals it to be shortened and externally rotated. He has got no knee effusion. He can dorsiflex and plantarflex his foot appropriately. He has got marked pain with any type of hip motion. X-RAYS: X-rays of the left hip reveal a displaced femoral neck fracture. No major signs of preexisting hip arthritis. The bone density looks relatively good. X-rays of the ankle are negative. Head CT is negative. LABORATORY DATA: His INR on admission was 4.8. INR this morning is 1.7. His creatinine is 3.79. Hemoglobin on admission was 6.9, up to 8.9. ASSESSMENT: An 7-year-old male with multiple medical comorbidities, status post a fall and a displaced femoral neck fracture. The patient is a significantly high risk, but previous ambulator. PLAN: We discussed treatment options. He is previously ambulating, he wants to get back and walk again. He would like to have his hip fixed. We are going to medically optimize. Once medically optimized, we will plan on doing a cemented bipolar hip arthroplasty. I explained the risks to the patient. We will talk with the medicine physicians and see when he is optimized. We will keep him n.p.o. for now. His INR is still a bit high, but it will likely be okay by noon or so today, I imagine. We will continue DVT prophylaxis including TEDs and SCDs. Any orthopedic questions can be directed to me at [phone].
[2019-09-29] MEDS: TRAMADOL HCL 50 MG TABLET PO PRN (08:49)
[2019-09-29] MEDS: INSULIN ASPART 100 UNITS/ML 3 ML PEN SC SCH ×4 (08:53→21:27)
[2019-09-29] MEDS ORDERED: FUROSEMIDE 40 MG in SYRINGE 0 ML IV SCH (09:00)
--- NOTE | 2019-09-29 09:42 | Cardiology Consultation ---
Date of Consultation September 29, 2019 Assessment & Plan (1) Preop cardiovascular exam: Patient admitted with mechanical fall and subsequent hip fracture. Patient has an extensive constellation of multiple medical issues and will represent a high operative risk patient. Discussed with patient and family alternatives are even higher risk and I see no point in further delay at this time. Current volume status appears compensated. Patient is hemodynamically stable. He is received transfusion to hemoglobin greater than 8. Anticoagulation has been allowed to reverse Renal function is marginal with nephrology on board. He has received diuretics posttransfusion and will expect some volume shifts with blood loss in the operating room Patient and family aware, no benefits and further delay patient tentatively plan for operative procedure this afternoon [employer] staff notified regarding device management perioperatively (2) Ischemic cardiomyopathy: (3) S/P ICD (internal cardiac defibrillator) procedure: (4) CKD (chronic kidney disease) stage 4, GFR 15-29 ml/min: (5) Anemia: History of Present Illness Reason for Consultation: Preoperative cardiovascular evaluation, hip fracture, anemia Requesting Physician: Brian Monzon Attending Physician: Iron Kumar MD History of Present Illness Patient is an 79-year-old male with extremely complex constellation of symptoms and history 1.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 EF 20-25%. 2.Atherosclerotic coronary artery disease with coronary intervention left anterior descending, 2005 repeat cardiac catheterization 2011 without obstructive disease. 3.Chronic atrial fibrillation with bifascicular block 4.History of past sustained ventricular tachycardia status, post pacer defibrillator implantation 2011. [employer] Aung 2 VR D 284 VRC 5.Chronic renal insufficiency stage IV, status post renal ablation for renal cell carcinoma. 6.History of left middle cerebral artery distribution stroke 2014. 7.History of acute inferior myocardial infarction, thrombotic, possible thromboembolic December 2016. 8. History of cirrhosis, SBP, follows with GI. 9. Hospitalization with acute renal failure requiring transient dialysis December 2018, multifactorial etiology 10. Hospitalization February 2019 with Influenza A 11. 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 Chronic anemia Patient presents this admission after mechanical fall. No syncope or near syncope. No tachypalpitations no dizziness. No device discharge. No recent chest pains or discomfort. He was in the process of transitioning anticoagulation for possible AV fistula placement. Review of systems he does admit to nausea and episodes of emesis some blood-tinged in the last 1 to 2 days no hugh bleeding. No overt melena hematochezia dysuria hematuria no febrile illness. Weight is been generally stable with only trace edema. Patient did receive 2 units of packed red cells on ER presentation for hemoglobin of 6.9 and currently appears hemodynamically stable Allergies Allergy/AdvReac Type Severity Reaction Status Date / Time fentanyl Allergy Severe Decreased Verified 09/28/19 13:19 oxygen saturation, low RR, unresponsive midazolam Allergy Severe Decreased Verified 09/28/19 13:19 oxygen saturation, low RR, unresponsive. codeine Allergy Unknown GI SYMPTOMS Verified 09/28/19 13:19 promethazine [From Phenergan] AdvReac Severe severe Verified 09/28/19 13:19 fatigue BRIANA Inhibitors AdvReac Mild cough, Verified 09/28/19 13:19 cefuroxime AdvReac Mild GI SYMPTOMS Verified 09/28/19 13:19 Home Medications Home Medications Medication Instructions Recorded Confirmed Type clopidogrel [Plavix] 75 mg PO QAM 08/16/18 09/28/19 History coenzyme Q10 [Co Q-10] 10 mg PO QAM 08/16/18 09/28/19 History cyanocobalamin (vitamin B-12) 1,000 mcg PO QAM 08/16/18 09/28/19 History ferrous gluconate 324 mg PO QAM 08/16/18 09/28/19 History multivitamin [Multiple Vitamins] 1 tab PO QAM 08/16/18 09/28/19 History nitroglycerin [Nitrostat] 0.4 mg SUBLINGUAL UD PRN 08/16/18 09/28/19 History rosuvastatin [Crestor] 20 mg PO QAM 08/16/18 09/28/19 History sertraline 50 mg PO QAM 08/16/18 09/28/19 History glipizide 2.5 mg PO BID #30 tab 02/01/19 09/28/19 Rx dextromethorphan-guaifenesin 1 tab PO Q12H PRN 03/17/19 09/28/19 History [Mucinex DM] testosterone 1 packet TRANSDERMAL DAILY 03/17/19 09/28/19 History warfarin 5 mg PO [id number] 03/17/19 09/28/19 History torsemide 100 mg PO DAILY 05/02/19 09/28/19 History pantoprazole 40 mg PO BID 30 Days #60 tab 07/28/19 09/28/19 Rx metoprolol succinate 100 mg PO BID 09/28/19 09/28/19 History warfarin 2.5 mg PO WK 09/28/19 09/28/19 History Patient History Medical History CKD (chronic kidney disease), stage IV (Chronic) Cirrhosis of liver (Chronic) Anticoagulant long-term use (Chronic) Ischemic cardiomyopathy (Chronic) DMII (diabetes mellitus, type 2) (Chronic) CAD (coronary artery disease) (Chronic) Pericardial effusion (Resolved) Anemia in chronic kidney disease (Chronic) SBP (spontaneous bacterial peritonitis) (Resolved) Depression (Chronic) HTN (hypertension) (Chronic) History of renal carcinoma (Chronic) Chronic systolic heart failure (Chronic) Ascites (Resolved) CAD (coronary artery disease) (Chronic) "2005 - PCI to LAD cath 2011 - no significant obstructive disease" CVA (cerebral vascular accident) (Chronic) Squamous cell carcinoma (Chronic) Basal cell carcinoma (Chronic) V tach (Chronic) "s/p AICD placement" Gross hematuria (Resolved) Myocardial infarction Surgical History History of prior ablation treatment (Chronic) CT guided tissue ablation R kidney S/P ICD (internal cardiac defibrillator) procedure (Chronic) History of cataract surgery (Chronic) Family History Father Coronary heart disease Mother Coronary heart disease Social History Preferred Language: Turkmen Communication Ability: Effective Visual Impairment: No Limitations Assistant Toddler Teacher Required: No Beliefs That Will Affect Care: None marital status: Current Living Situation: Spouse and Family Other Information That Helps Us Care for You: No Feels Safe at Home: Yes Safety Concerns: Feels Safe At This Time Smoking Status: Former smoker Tobacco Type: cigarettes ; Do You Dip or Chew Tobacco: Yes ; Second Hand Exposure: No ; Tobacco Cessation Education Requested by Patient: No Hx Alcohol Use: No Hx Substance Use: No Review of Systems Review of Systems: All systems reviewed & are unremarkable except as noted in HPI & below Physical Exam Constitutional: + ill appearing; no acute distress Eyes: PERRL, conjunctivae normal, anicteric sclerae ENMT: external ear and nose normal, oropharynx normal Neck: trachea midline, no thyromegaly Respiratory: normal respiratory effort, lungs clear to auscultation Cardiovascular: Rate/Rhythm: + irregularly irregular Heart Sounds: normal S1, normal S2 and + murmur (Grade 1/6 systolic, no); no gallop Palpation: normal PMI Vessels: normal carotid upstroke and radial pulses present; no JVD and no carotid bruit Extremities: + edema (Trace pedal) Chest (Breasts): Chest: normal inspection of chest Gastrointestinal (Abdomen): Inspection/Auscultation: + abdomen distended (Mildly) Percussion/Palpation: abdomen soft; no hepatosplenomegaly Skin: no rashes, warm and dry Neurologic: PERRL, EOMI, accommodation nl, no face palsy, no dysarthria Psychiatric: A+Ox3, euthymic affect Results & Data Vital Signs (Past 12 Hours) Vital Signs Temp Pulse Pulse Resp BP BP BP 09/29/19 07:39 36.5 C 65 22 112/75 09/29/19 04:00 09/29/19 03:47 36.8 C 62 20 133/78 09/29/19 01:16 36.3 C L 65 16 106/62 09/29/19 00:15 36.3 C L 62 16 108/65 09/29/19 00:00 09/28/19 23:27 36.6 C 62 14 108/68 09/28/19 23:15 36.3 C L 63 16 106/60 09/28/19 22:45 36.3 C L 63 16 108/59 L 09/28/19 22:06 36.8 C 65 121/70 09/28/19 21:51 36.5 C 52 L 127/69 Pulse Ox Pulse Ox 09/29/19 07:39 95 09/29/19 04:00 97 09/29/19 03:47 95 09/29/19 01:16 98 09/29/19 00:15 98 09/29/19 00:00 99 09/28/19 23:27 98 09/28/19 23:15 98 09/28/19 22:45 99 09/28/19 22:06 09/28/19 21:51 99 Laboratory Results Laboratory Results - last 24 hr 09/28/19 09/28/19 09/28/19 11:58 11:58 11:58 WBC 6.24 RBC 2.38 L Hgb 6.9 L* Hct 21.8 L MCV 91.6 MCH 29.0 MCHC 31.7 L RDW Std Deviation 52.2 H RDW Coeff of Dung 15.4 H Plt Count 134 MPV 10.2 Immature Gran % (Auto) 0.2 Neut % (Auto) 72.0 Lymph % (Auto) 12.5 Callahan % (Auto) 11.9 Eos % (Auto) 2.9 Baso % (Auto) 0.5 Immature Gran # (Auto) 0.01 Neut # (Auto) 4.50 Lymph # (Auto) 0.78 L Callahan # (Auto) 0.74 H Eos # (Auto) 0.18 Baso # (Auto) 0.03 Hypochromasia Present PT 44.1 H INR 4.8 H APTT 43.8 H PTT Ratio 1.6 Sodium 139 Potassium 3.5 Chloride 106 Carbon Dioxide 27 Anion Gap 6.0 BUN 58 H Creatinine 3.79 H Est Cr Clr Drug Dosing 16.1 Est GFR ( Amer) 16.4 Est GFR (Non-Af Amer) 14.1 BUN/Creatinine Ratio 15.4 Glucose 114 H POC Glucose Estimat Average Glucose Hemoglobin A1c Calcium 8.7 Magnesium Total Bilirubin AST ALT Alkaline Phosphatase Total Protein Albumin Globulin Albumin/Globulin Ratio 25-OH Vitamin D Total Urine Color Urine Appearance Urine pH Ur Specific Man Urine Protein Urine Glucose (UA) Urine Ketones Urine Blood Urine Nitrite Urine Bilirubin Urine Urobilinogen Ur Leukocyte Esterase Urine WBC (Auto) Urine RBC (Auto) U Hyaline Cast (Auto) U Epithel Cells (Auto) Urine Bacteria (Auto) Nasal Screen MRSA (PCR) Blood Type Antibody Screen Crossmatch 09/28/19 09/28/19 09/28/19 11:58 15:30 17:27 WBC RBC Hgb Hct MCV MCH MCHC RDW Std Deviation RDW Coeff of Dung Plt Count MPV Immature Gran % (Auto) Neut % (Auto) Lymph % (Auto) Callahan % (Auto) Eos % (Auto) Baso % (Auto) Immature Gran # (Auto) Neut # (Auto) Lymph # (Auto) Callahan # (Auto) Eos # (Auto) Baso # (Auto) Hypochromasia PT INR APTT PTT Ratio Sodium Potassium Chloride Carbon Dioxide Anion Gap BUN Creatinine Est Cr Clr Drug Dosing Est GFR ( Amer) Est GFR (Non-Af Amer) BUN/Creatinine Ratio Glucose POC Glucose 129 H Estimat Average Glucose Hemoglobin A1c Calcium Magnesium Total Bilirubin AST ALT Alkaline Phosphatase Total Protein Albumin Globulin Albumin/Globulin Ratio 25-OH Vitamin D Total Urine Color Yellow Urine Appearance Cloudy A Urine pH 5.0 Ur Specific Man 1.015 Urine Protein 1+ H Urine Glucose (UA) Negative Urine Ketones Negative Urine Blood 1+ H Urine Nitrite Negative Urine Bilirubin Negative Urine Urobilinogen Negative Ur Leukocyte Esterase Negative Urine WBC (Auto) 1-5 Urine RBC (Auto) 5-10 H U Hyaline Cast (Auto) 1-5 U Epithel Cells (Auto) 20-30 H Urine Bacteria (Auto) Negative Nasal Screen MRSA (PCR) Blood Type A Positive Antibody Screen NEGATIVE Crossmatch See Detail 09/28/19 09/28/19 09/28/19 19:36 19:36 20:42 WBC 7.59 RBC 2.83 L Hgb 8.1 L Hct 25.7 L MCV 90.8 MCH 28.6 MCHC 31.5 L RDW Std Deviation 52.6 H RDW Coeff of Dung 15.8 H Plt Count 130 MPV 10.1 Immature Gran % (Auto) 0.1 Neut % (Auto) 77.2 Lymph % (Auto) 8.4 Callahan % (Auto) 13.2 Eos % (Auto) 0.7 Baso % (Auto) 0.4 Immature Gran # (Auto) 0.01 Neut # (Auto) 5.86 Lymph # (Auto) 0.64 L Callahan # (Auto) 1.00 H Eos # (Auto) 0.05 Baso # (Auto) 0.03 Hypochromasia PT 25.5 H INR 2.7 H APTT PTT Ratio Sodium Potassium Chloride Carbon Dioxide Anion Gap BUN Creatinine Est Cr Clr Drug Dosing Est GFR ( Amer) Est GFR (Non-Af Amer) BUN/Creatinine Ratio Glucose POC Glucose 117 H Estimat Average Glucose Hemoglobin A1c Calcium Magnesium Total Bilirubin AST ALT Alkaline Phosphatase Total Protein Albumin Globulin Albumin/Globulin Ratio 25-OH Vitamin D Total Urine Color Urine Appearance Urine pH Ur Specific Man Urine Protein Urine Glucose (UA) Urine Ketones Urine Blood Urine Nitrite Urine Bilirubin Urine Urobilinogen Ur Leukocyte Esterase Urine WBC (Auto) Urine RBC (Auto) U Hyaline Cast (Auto) U Epithel Cells (Auto) Urine Bacteria (Auto) Nasal Screen MRSA (PCR) Blood Type Antibody Screen Crossmatch 09/28/19 09/29/19 09/29/19 22:15 06:03 06:03 WBC 7.47 RBC 3.06 L Hgb 8.9 L Hct 27.7 L MCV 90.5 MCH 29.1 MCHC 32.1 RDW Std Deviation 53.0 H RDW Coeff of Dung 16.0 H Plt Count 119 L MPV 9.4 Immature Gran % (Auto) Neut % (Auto) Lymph % (Auto) Callahan % (Auto) Eos % (Auto) Baso % (Auto) Immature Gran # (Auto) Neut # (Auto) Lymph # (Auto) Callahan # (Auto) Eos # (Auto) Baso # (Auto) Hypochromasia PT 16.6 H INR 1.7 H APTT PTT Ratio Sodium Potassium Chloride Carbon Dioxide Anion Gap BUN Creatinine Est Cr Clr Drug Dosing Est GFR ( Amer) Est GFR (Non-Af Amer) BUN/Creatinine Ratio Glucose POC Glucose Estimat Average Glucose Hemoglobin A1c Calcium Magnesium Total Bilirubin AST ALT Alkaline Phosphatase Total Protein Albumin Globulin Albumin/Globulin Ratio 25-OH Vitamin D Total Urine Color Urine Appearance Urine pH Ur Specific Man Urine Protein Urine Glucose (UA) Urine Ketones Urine Blood Urine Nitrite Urine Bilirubin Urine Urobilinogen Ur Leukocyte Esterase Urine WBC (Auto) Urine RBC (Auto) U Hyaline Cast (Auto) U Epithel Cells (Auto) Urine Bacteria (Auto) Nasal Screen MRSA (PCR) Positive A Blood Type Antibody Screen Crossmatch 09/29/19 09/29/19 09/29/19 06:03 06:03 06:03 WBC RBC Hgb Hct MCV MCH MCHC RDW Std Deviation RDW Coeff of Dung Plt Count MPV Immature Gran % (Auto) Neut % (Auto) Lymph % (Auto) Callahan % (Auto) Eos % (Auto) Baso % (Auto) Immature Gran # (Auto) Neut # (Auto) Lymph # (Auto) Callahan # (Auto) Eos # (Auto) Baso # (Auto) Hypochromasia PT INR APTT PTT Ratio Sodium 140 Potassium 3.8 Chloride 106 Carbon Dioxide 26 Anion Gap 8.0 BUN 58 H Creatinine 3.79 H Est Cr Clr Drug Dosing 16.1 Est GFR ( Amer) 16.4 Est GFR (Non-Af Amer) 14.1 BUN/Creatinine Ratio 15.3 Glucose 105 H POC Glucose Estimat Average Glucose 111 Hemoglobin A1c 5.5 Calcium 8.8 Magnesium 2.4 Total Bilirubin 1.1 H AST 18 ALT 15 Alkaline Phosphatase 71 Total Protein 7.0 Albumin 3.4 Globulin 3.6 Albumin/Globulin Ratio 0.9 25-OH Vitamin D Total 29.6 L Urine Color Urine Appearance Urine pH Ur Specific Man Urine Protein Urine Glucose (UA) Urine Ketones Urine Blood Urine Nitrite Urine Bilirubin Urine Urobilinogen Ur Leukocyte Esterase Urine WBC (Auto) Urine RBC (Auto) U Hyaline Cast (Auto) U Epithel Cells (Auto) Urine Bacteria (Auto) Nasal Screen MRSA (PCR) Blood Type Antibody Screen Crossmatch 09/29/19 07:38 WBC RBC Hgb Hct MCV MCH MCHC RDW Std Deviation RDW Coeff of Dung Plt Count MPV Immature Gran % (Auto) Neut % (Auto) Lymph % (Auto) Callahan % (Auto) Eos % (Auto) Baso % (Auto) Immature Gran # (Auto) Neut # (Auto) Lymph # (Auto) Callahan # (Auto) Eos # (Auto) Baso # (Auto) Hypochromasia PT INR APTT PTT Ratio Sodium Potassium Chloride Carbon Dioxide Anion Gap BUN Creatinine Est Cr Clr Drug Dosing Est GFR ( Amer) Est GFR (Non-Af Amer) BUN/Creatinine Ratio Glucose POC Glucose 119 H Estimat Average Glucose Hemoglobin A1c Calcium Magnesium Total Bilirubin AST ALT Alkaline Phosphatase Total Protein Albumin Globulin Albumin/Globulin Ratio 25-OH Vitamin D Total Urine Color Urine Appearance Urine pH Ur Specific Man Urine Protein Urine Glucose (UA) Urine Ketones Urine Blood Urine Nitrite Urine Bilirubin Urine Urobilinogen Ur Leukocyte Esterase Urine WBC (Auto) Urine RBC (Auto) U Hyaline Cast (Auto) U Epithel Cells (Auto) Urine Bacteria (Auto) Nasal Screen MRSA (PCR) Blood Type Antibody Screen Crossmatch (1) Anemia Anemia type: unspecified type Qualified Code(s): D64.9 - Anemia, unspecified
--- NOTE | 2019-09-29 11:01 | Anesthesiology Consultation ---
Date of Service September 29, 2019 Assessment & Plan (1) Encounter for pre-operative examination: Chart Review Chart Review: Acceptable Risk for Surgery (Patient is high risk, but further optimization is not possible.) and Patient NOT seen in Pre Admission Testing Consults Requested none Additional Notes Per Dr. Alexander's cardiology clearance - "1. 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 EF 20-25%. 2. Atherosclerotic coronary artery disease with coronary intervention left anterior descending, 2006 repeat cardiac catheterization 2011 without obstructive disease. 3. Chronic atrial fibrillation with bifascicular block 4. History of past sustained ventricular tachycardia status, post pacer defibrillator implantation 2011. [employer] Aung 2 VR D 284 VRC 5. Chronic renal insufficiency stage IV, status post renal ablation for renal cell carcinoma. 6. History of left middle cerebral artery distribution stroke 2014. 7. History of acute inferior myocardial infarction, thrombotic, possible thromboembolic December 2016. 8. History of cirrhosis, SBP, follows with GI. 9. Hospitalization with acute renal failure requiring transient dialysis December 2018, multifactorial etiology 10. Hospitalization February 2019 with Influenza A 11. 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 Chronic anemia" "Patient has an extensive constellation of multiple medical issues and will represent a high operative risk patient. Discussed with patient and family alternatives are even higher risk and I see no point in further delay at this time. Current volume status appears compensated. Patient is hemodynamically stable. He is received transfusion to hemoglobin greater than 8. Anticoagulati on has been allowed to reverse Renal function is marginal with nephrology on board. He has received diuretics posttransfusion and will expect some volume shifts with blood loss in the operating room." Per Dr. Ahn with Nephrology - "Acute worsening of stage 4 chronic kidney disease: advanced ckd 4 w/ chronic volume overload and very labile creatinine ranging as OP from upper 2's to mid 3's, most recently 3.8 on 09/25. creatinine 3.8 today, mild TOBIN -strict I/O -no indication currently for urgent dialysis -daily bmp -FR 2L when taking po and <2 gm Na diet (currently NPO) >takes torsemide 100 mg daily >> hold for now >recommend lasix 40 mg iv after pRBC, then lasix 40 mg IV overnight prn worsening volume or respiratory status Present on Admission?: Yes (2) Acute on chronic anemia: Hgb 6.9 on presentation w/ chronic gastritis w/ scant heme + emesis in ER INR 4.8; pt had actually been bridging w/ lovenox in prep for AVF surgery on 10/02 > per epic, last coumadin dose was to be 09/26, then start lovenox 09/29 >getting pRBC 1 unit; on PPI gtt; GI to evaluate >> post transfusion hgb 8.1 -would not initiate procrit w/ fracture/ GI bleeding; again have been urging this as OP and will cont to discuss Present on Admission?: Yes" History Surgery Operation Date: 09/29/19 07:30 Proposed Procedures p Left Hemiarthroplasty Hip - Aditya Torres MD Operation Date: 09/29/19 15:30 Proposed Procedures p Esophagogastroduodenoscopy Dr Pierce - Celso Pierce MD Height/Weight Height: 5 ft 10 in Weight: 82.4 kg Allergies Allergy/AdvReac Type Severity Reaction Status Date / Time fentanyl Allergy Severe Decreased Verified 09/28/19 13:19 oxygen saturation, low RR, unresponsive midazolam Allergy Severe Decreased Verified 09/28/19 13:19 oxygen saturation, low RR, unresponsive. codeine Allergy Unknown GI SYMPTOMS Verified 09/28/19 13:19 promethazine [From Phenergan] AdvReac Severe severe Verified 09/28/19 13:19 fatigue BRIANA Inhibitors AdvReac Mild cough, Verified 09/28/19 13:19 cefuroxime AdvReac Mild GI SYMPTOMS Verified 09/28/19 13:19 Medications Home Medications Medication Instructions Recorded Confirmed Last Taken clopidogrel [Plavix] 75 mg PO QAM 08/16/18 09/28/19 08/27/19 coenzyme Q10 [Co Q-10] 10 mg PO QAM 08/16/18 09/28/19 08/27/19 cyanocobalamin (vitamin B-12) 1,000 mcg PO QAM 08/16/18 09/28/19 08/27/19 ferrous gluconate 324 mg PO QAM 08/16/18 09/28/19 08/27/19 multivitamin [Multiple Vitamins] 1 tab PO QAM 08/16/18 09/28/19 08/27/19 nitroglycerin [Nitrostat] 0.4 mg SUBLINGUAL UD PRN 08/16/18 09/28/19 05/02/19 rosuvastatin [Crestor] 20 mg PO QAM 08/16/18 09/28/19 08/27/19 sertraline 50 mg PO QAM 08/16/18 09/28/19 08/27/19 glipizide 2.5 mg PO BID #30 tab 02/01/19 09/28/19 08/27/19 dextromethorphan-guaifenesin 1 tab PO Q12H PRN 03/17/19 09/28/19 05/02/19 [Mucinex DM] testosterone 1 packet TRANSDERMAL DAILY 03/17/19 09/28/19 05/02/19 warfarin 5 mg PO [id number] 03/17/19 09/28/19 08/26/19 torsemide 100 mg PO DAILY 05/02/19 09/28/19 05/01/19 pantoprazole 40 mg PO BID 30 Days #60 tab 07/28/19 09/28/19 08/27/19 metoprolol succinate 100 mg PO BID 09/28/19 09/28/19 Unknown warfarin 2.5 mg PO WK 09/28/19 09/28/19 Unknown Active Medications Generic Name Dose Route Start Last Admin Trade Name Freq PRN Reason Stop Dose Admin Acetaminophen 500 mg 09/28/19 18:00 09/29/19 08:08 Tylenol PO 10/28/19 17:59 500 mg QID PAVAN Administration Ferrous Gluconate 324 mg 09/29/19 09:00 09/29/19 08:10 Ferrous Gluconate PO 10/29/19 08:59 324 mg QAM PAVAN Administration Pantoprazole Sodium 40 mg/ 100 mls @ 20 mls/hr 09/28/19 13:00 09/29/19 08:50 Dextrose IV 10/28/19 12:59 20 mls/hr Q5H PAVAN Administration Furosemide 40 mg/ Syringe 4 mls @ 4 mls/min 09/29/19 09:00 09/29/19 08:50 IV 10/29/19 08:59 4 mls/min BID PAVAN Administration Insulin Aspart 0 units 09/28/19 18:00 09/29/19 08:53 Novolog Flexpen SC 10/28/19 17:59 Not Given ACHS PAVAN Metoprolol Succinate 100 mg 09/28/19 21:00 09/29/19 08:09 Toprol Xl PO 10/28/19 20:59 100 mg BID PAVAN Administration Miscellaneous 1 ea 09/29/19 00:00 09/29/19 08:08 Order Awaiting Action N/A 10/29/19 00:00 Not Given QS PAVAN Rosuvastatin Calcium 20 mg 09/29/19 09:00 09/29/19 08:10 Crestor PO 10/29/19 08:59 20 mg QAM PAVAN Administration Senna/Docusate Sodium 2 tab 09/28/19 21:00 09/28/19 21:37 Senokot S PO 10/28/19 20:59 2 tab HS PAVAN Administration Sertraline HCl 50 mg 09/29/19 09:00 09/29/19 08:10 Zoloft PO 10/29/19 08:59 50 mg QAM PAVAN Administration Tramadol HCl 50 mg 09/28/19 17:04 09/29/19 08:49 Ultram PO 10/28/19 17:03 50 mg Q4H PRN Administration Mild Pain Past Medical History Medical History CKD (chronic kidney disease), stage IV (Chronic) Cirrhosis of liver (Chronic) Anticoagulant long-term use (Chronic) Ischemic cardiomyopathy (Chronic) DMII (diabetes mellitus, type 2) (Chronic) CAD (coronary artery disease) (Chronic) Pericardial effusion (Resolved) Anemia in chronic kidney disease (Chronic) SBP (spontaneous bacterial peritonitis) (Resolved) Depression (Chronic) HTN (hypertension) (Chronic) History of renal carcinoma (Chronic) Chronic systolic heart failure (Chronic) Ascites (Resolved) CAD (coronary artery disease) (Chronic) "2005 - PCI to LAD cath 2011 - no significant obstructive disease" CVA (cerebral vascular accident) (Chronic) Squamous cell carcinoma (Chronic) Basal cell carcinoma (Chronic) V tach (Chronic) "s/p AICD placement" Gross hematuria (Resolved) Myocardial infarction Past Family History Family History Father Coronary heart disease Mother Coronary heart disease Past Surgical History Surgical History History of prior ablation treatment (Chronic) CT guided tissue ablation R kidney S/P ICD (internal cardiac defibrillator) procedure (Chronic) History of cataract surgery (Chronic) Social History Smoking Status: Former smoker tobacco type: cigarettes Do You Dip or Chew Tobacco: Yes Hx Alcohol Use: No alcohol intake frequency: other Hx Substance Use: No substance use type: does not use Physical Exam Vital Signs Last Vital Signs Temp 36.5 C 09/29/19 07:39 Pulse 65 09/29/19 07:39 Resp 22 09/29/19 07:39 BP 112/75 09/29/19 07:39 Pulse Ox 95 09/29/19 07:39 Testing Laboratory Results 09/29/19 06:03 09/29/19 06:03 PT 16.6 Seconds (9.0-12.0) H 09/29/19 06:03 INR 1.7 (0.9-1.1) H 09/29/19 06:03 APTT 43.8 Seconds (21.0-31.0) H 09/28/19 11:58 Hemoglobin A1c 5.5 % (4.5-5.6) 09/29/19 06:03 Urine Color Yellow 09/28/19 15:30 Urine Appearance Cloudy (Clear) A 09/28/19 15:30 Urine pH 5.0 (4.5-7.5) 09/28/19 15:30 Ur Specific [place] 1.015 (1.000-1.030) 09/28/19 15:30 Urine Protein 1+ (Negative) H 09/28/19 15:30 Urine Glucose (UA) Negative (Negative) 09/28/19 15:30 Urine Ketones Negative (Negative) 09/28/19 15:30 Urine Nitrite Negative (Negative) 09/28/19 15:30 Ur Leukocyte Esterase Negative (Negative) 09/28/19 15:30 Urine WBC (Auto) 1-5 /hpf (0-5) 09/28/19 15:30 Urine RBC (Auto) 5-10 /hpf (0-4) H 09/28/19 15:30 U Hyaline Cast (Auto) 1-5 /lpf (0-5) 09/28/19 15:30 U Epithel Cells (Auto) 20-30 /lpf (0-5) H 09/28/19 15:30 Urine Bacteria (Auto) Negative (Negative) 09/28/19 15:30 Blood Type A Positive 09/28/19 11:58 Antibody Screen NEGATIVE 09/28/19 11:58 09/29/19 07:38 POC Glucose 119 H Electrocardiogram Date: 09/29/19 Findings: + AFIB @ Premature ventricular or aberrantly conducted complexes, Right bundle branch block, Possible Inferior infarct (cited on or before 02-FEB-2019) T wave abnormality, consider lateral ischemia, When compared with ECG of 28-SEP-2019 12:42, No significant change was found Chest X-Ray Date: 09/29/19 Cardiomegaly with pulmonary vascular congestion and probable trace pleural effusions.
--- NOTE | 2019-09-29 11:01 | Hospitalist Progress Note ---
Date of Service September 29, 2019 Assessment & Plan (1) Fall: (2) Closed fracture of left hip: Mr. Cottrell is an 79-year-old male who has significant PMH of CAD with history of stent 2012, chronic combined systolic and diastolic CHF, chronic atrial fibrillation anticoagulated on warfarin, history of VTACH s/p AICD, history of CVA, HTN, HLD, CKD stage IV, T2DM, history of right clear-cell kidney CA s/p ablation, chronic gastritis who presents to [facility] after sustaining mechanical fall at home prior to arrival. In ED patient did have left hip x-ray which revealed subcapital left hip fracture. Hemoglobin and hematocrit decreased from baseline at 6.9 and 21.8, elevated INR 4.8, A/C CKD-4 BUN/creatinine 58/3.79 Chest x-ray revealed pulmonary vascular congestion and probable trace pleural effusions. He remained hemodynamically stable while in ED. He was typed and crossed and transfused 1 unit PRBC. Emesis in ED tested Heme positive Admitted to PCU to optimize co morbidities including acute on chronic anemia, acute on chronic CKD stage IV, chronic gastritis with hemorrhage, supratherapeutic INR on warfarin Orthopedics Dr. Torres, consulted Hip fx protocol ordered pre op antibiotics with cefazolin - pt has GI side effects to oral ceftin but no anaphylaxis reported per patient and family MRSA Swab ordered Acetaminophen 650 every 8 -limited 2 g given history of cirrhosis Tramadol 50 mg every 4 hours as needed pain (patient intolerant oxycodone) IV morphine 2 mg every 2 hours for severe pain Polanco ordered Thorough discussion between multiple subspecialties, including cardiology, nephrology, GI, given patient's significant co-morbidities, however agreed that it is still in the best patient's interest to proceed with the surgery at this moment. Update: Now pt s/p Left cemented bipolar hip arthroplasty w/ Dr. Torres Patient tolerated procedure well, examined by me postop, vital signs good within goals, family updated at the bedside (3) Anemia: Likely combination of anemia of chronic disease due to CKD stage IV, and blood loss anemia due to known gastritis Nephrology consulted (in the past there was discussion about possible initiation of Procrit due to anemia of chronic disease in setting of CKD stage IV) H&H 6.9 and 21.8 on admission Received multiple pRBCs, with IV lasix Continue IV PPI drip Goal Hgb >8 Baseline hemoglobin around 8 (4) Chronic gastritis: Recent EGD last admission 07/26 d/t anemia EGD revealed chronic gastritis with hemorrhage - recommended PPI BID - pt has been complaint with this Patient had episode of emesis in ED which was heme positive scant amount per provider Patient also with scant blood noted in right nasal cavity - ? If heme positive emesis was secondary to this vs findings of chronic gastritis Consult gastroenterology-appreciate their input, GI recommended EGD, however 3 of anesthesia would be presenting higher risk for the patient, therefore after discussion with multiple subspecialties, decided to proceed with the surgery, will follow up with a GI afterwards. GI service did provide there assessment, given patient's cirrhosis patient has high risk of mortality postop (17% mortality risk in the first 7 days after surgery, 58 risk mortality risk is 30 days), see GI note for more details Continue IV PPI gtt (5) Acute worsening of stage 4 chronic kidney disease: TOBIN on CKD baseline cr 2.8-3.0 bun/cr 58/3.79, likely worsened in setting of hypovolemia Per family patient was to undergo AV fistula next week Consult nephrology Dr. Martin due to worsened anemia along with assistance in volume status management given advanced CKD (6) Chronic atrial fibrillation: Currently rate controlled on metoprolol succinate 100 mg twice daily Supratherapeutic INR 4.8 IV vitamin K 10 mg given in ED Repeat PT/INR at 7 PM Hold Coumadin for now consult cardiology for preop clearance given hx of chronic afib, hx of cva, CAD, S-CHF Dr. Alexander evaluated patient in the morning, preop, and cooperated with clinical discussion about proceeding with surgery despite patient's multiple risk factors and comorbidities. See more details in cardiology note. (7) Chronic systolic heart failure: Secondary to ischemic cardiomyopathy On outpatient regimen of torsemide 100 mg daily, metoprolol Continue metoprolol, hold torsemide for now -will continue to reevaluate volume status Monitor daily weight Strict I's and O's Heart healthy, low-sodium diet Obtain echocardiogram (8) CAD (coronary artery disease): No current chest pain or shortness of breath History of stent in 2011 As outpatient was on Plavix, Coumadin, statin, metoprolol Hold Coumadin in setting of supratherapeutic INR Hold Plavix for now (until evaluated by cardiology for preop clearance) Continue statin and metoprolol Obtain echocardiogram (9) HTN (hypertension): Blood pressure currently stable, despite hemoglobin 6.9 Continue metoprolol Hold torsemide for now, monitor volume status closely, can use IV Lasix prn (10) DMII (diabetes mellitus, type 2): Last A1c 5.8 On oral glipizide as outpatient Hold glipizide, placed on NovoLog per protocol (11) S/P ICD (internal cardiac defibrillator) procedure: hx of Vtach AICD in place (12) DVT prophylaxis: SCD/TEDS s/p IV Vit K x 10mg due to supratherapeutic INR 4.8 Hold warfarin due to likely procedure Disposition: Admit to PCU, case management consulted Follow-up: PCP Dr. Thomas upon discharge Subjective Elderly male lying in bed, in distress, due to pain from L femoral neck fracture. Patient's family at the bedside. Patient denies any fevers, chills, chest pain, shortness of breath, abdominal pain, nausea or vomiting. Care coordination/family discussion: Extensive discussion between all care providers, surgery, cardiology, nephrology, GI, medicine and the patient and his family members. Unfortunately patient certainly have many significant comorbidities, and remains high risk for surgery for chucho-/ postoperative decompensation from several standpoints, however agreed that it is still in the best patient's interest to proceed with the surgery at this moment. Patient's volume status seems to be compensated at the time, and he is hemodynamically stable. He received blood transfusion, with diuretics, current hemoglobin greater than 8. In addition anticoagulation has been allowed to reverse, as he was planned for AV fistula procedure. Update: Patient tolerated procedure well, examined postop. Patient is lying in bed, sleeping soundly, hemodynamically stable. Family at the bedside updated. Review of Systems Review of Systems: All systems reviewed & are unremarkable except as noted in HPI & below Constitutional: no fever and no chills Respiratory: no cough, no chest congestion, no dyspnea and no hemoptysis Cardiovascular: no chest pain, no orthopnea, no palpitations and no syncope Gastrointestinal: no abdominal pain, no nausea and no vomiting Musculoskeletal: + joint pain (Significant pain due to left femoral neck fracture) Integumentary: no rash and no erythema Physical Exam Physical Exam: Constitutional: Elderly male laying in bed, + ill appearing, uncomfortable due to pain Eyes: PERRL, EOMI, conjunctivae normal, anicteric sclerae ENMT: external ear and nose normal, oropharynx normal Neck: no JVD, trachea midline, no thyromegaly Respiratory: normal respiratory effort, lungs clear to auscultation, no wheezing, rhonchi, crackles noted Cardiovascular: Rate/Rhythm: + irregularly irregular, + soft systolic murmur at LSB, no JVD, trace pedal edema bilaterally Chest (Breasts): Chest: normal inspection of chest Gastrointestinal (Abdomen): Inspection/Auscultation: + abdomen mildly distended but no fluid wave appreciated, soft, nontender, no guarding Skin: no rashes, warm and dry Neuro/Psych: Alert and oriented x3, speech fluent, PERRL, EOMI, accommodation nl, no face palsy, no dysarthria Results & Data Vital Signs (Past 12 Hours) Vital Signs Temp Pulse Pulse Resp BP BP BP 09/29/19 07:39 36.5 C 65 22 112/75 09/29/19 04:00 09/29/19 03:47 36.8 C 62 20 133/78 09/29/19 01:16 36.3 C L 65 16 106/62 09/29/19 00:15 36.3 C L 62 16 108/65 09/29/19 00:00 09/28/19 23:27 36.6 C 62 14 108/68 09/28/19 23:15 36.3 C L 63 16 106/60 Pulse Ox Pulse Ox 09/29/19 07:39 95 09/29/19 04:00 97 09/29/19 03:47 95 09/29/19 01:16 98 09/29/19 00:15 98 09/29/19 00:00 99 09/28/19 23:27 98 09/28/19 23:15 98 Laboratory Results 09/29/19 09/29/19 09/29/19 Range/Units 07:38 06:03 06:03 WBC (4.8-10.8) K/uL RBC (4.7-6.1) M/uL Hgb (14.0-18.0) g/dL Hct (42-52) % MCV (80-100) fL MCH (25-34) pg MCHC (32-36) g/dL RDW Std Deviation (36.4-46.3) fL RDW Coeff of Dung (11.5-14.5) % Plt Count (130-400) K/uL MPV (7.4-10.4) fL Immature Gran % (Auto) % Neut % (Auto) % Lymph % (Auto) % [place] % (Auto) % Eos % (Auto) % Baso % (Auto) % Immature Gran # (Auto) (0.00-0.02) K/uL Neut # (Auto) (1.4-6.5) K/uL Lymph # (Auto) (1.2-3.4) K/uL [place] # (Auto) (0.11-0.59) K/uL Eos # (Auto) (0-0.5) K/uL Baso # (Auto) (0-0.2) K/uL Hypochromasia PT (9.0-12.0) Seconds INR (0.9-1.1) APTT (21.0-31.0) Seconds PTT Ratio Sodium (136-145) mmol/L Potassium (3.5-5.1) mmol/L Chloride (98-107) mmol/L Carbon Dioxide (21-32) mmol/L Anion Gap (3-11) BUN (7-18) mg/dl Creatinine (0.6-1.4) mg/dl Est Cr Clr Drug Dosing ml/min Est GFR ( Amer) Est GFR (Non-Af Amer) BUN/Creatinine Ratio (10-20) Glucose (70-99) mg/dl POC Glucose 119 H (70-99) Estimat Average Glucose 111 mg/dl Hemoglobin A1c 5.5 (4.5-5.6) % Calcium (8.5-10.1) mg/dl Magnesium (1.8-2.4) mg/dl Total Bilirubin (0.2-1) mg/dl AST (15-37) U/L ALT (12-78) U/L Alkaline Phosphatase (45-117) U/L Total Protein (6.4-8.2) gm/dl Albumin (3.4-5.0) gm/dl Globulin (2.5-4.0) gm/dl Albumin/Globulin Ratio (0.9-2) 25-OH Vitamin D Total 29.6 L (30-100) ng/ml Urine Color Urine Appearance (Clear) Urine pH (4.5-7.5) Ur Specific [place] (1.000-1.030) Urine Protein (Negative) Urine Glucose (UA) (Negative) Urine Ketones (Negative) Urine Blood (Negative) Urine Nitrite (Negative) Urine Bilirubin (Negative) Urine Urobilinogen (Negative) Ur Leukocyte Esterase (Negative) Urine WBC (Auto) (0-5) /hpf Urine RBC (Auto) (0-4) /hpf U Hyaline Cast (Auto) (0-5) /lpf U Epithel Cells (Auto) (0-5) /lpf Urine Bacteria (Auto) (Negative) Nasal Screen MRSA (PCR) (Negative) Blood Type Antibody Screen Crossmatch 09/29/19 09/29/19 09/29/19 Range/Units 06:03 06:03 06:03 WBC 7.47 (4.8-10.8) K/uL RBC 3.06 L (4.7-6.1) M/uL Hgb 8.9 L (14.0-18.0) g/dL Hct 27.7 L (42-52) % MCV 90.5 (80-100) fL MCH 29.1 (25-34) pg MCHC 32.1 (32-36) g/dL RDW Std Deviation 53.0 H (36.4-46.3) fL RDW Coeff of Dung 16.0 H (11.5-14.5) % Plt Count 119 L (130-400) K/uL MPV 9.4 (7.4-10.4) fL Immature Gran % (Auto) % Neut % (Auto) % Lymph % (Auto) % [place] % (Auto) % Eos % (Auto) % Baso % (Auto) % Immature Gran # (Auto) (0.00-0.02) K/uL Neut # (Auto) (1.4-6.5) K/uL Lymph # (Auto) (1.2-3.4) K/uL [place] # (Auto) (0.11-0.59) K/uL Eos # (Auto) (0-0.5) K/uL Baso # (Auto) (0-0.2) K/uL Hypochromasia PT 16.6 H (9.0-12.0) Seconds INR 1.7 H (0.9-1.1) APTT (21.0-31.0) Seconds PTT Ratio Sodium 140 (136-145) mmol/L Potassium 3.8 (3.5-5.1) mmol/L Chloride 106 (98-107) mmol/L Carbon Dioxide 26 (21-32) mmol/L Anion Gap 8.0 (3-11) BUN 58 H (7-18) mg/dl Creatinine 3.79 H (0.6-1.4) mg/dl Est Cr Clr Drug Dosing 16.1 ml/min Est GFR ( Amer) 16.4 Est GFR (Non-Af Amer) 14.1 BUN/Creatinine Ratio 15.3 (10-20) Glucose 105 H (70-99) mg/dl POC Glucose (70-99) Estimat Average Glucose mg/dl Hemoglobin A1c (4.5-5.6) % Calcium 8.8 (8.5-10.1) mg/dl Magnesium 2.4 (1.8-2.4) mg/dl Total Bilirubin 1.1 H (0.2-1) mg/dl AST 18 (15-37) U/L ALT 15 (12-78) U/L Alkaline Phosphatase 71 (45-117) U/L Total Protein 7.0 (6.4-8.2) gm/dl Albumin 3.4 (3.4-5.0) gm/dl Globulin 3.6 (2.5-4.0) gm/dl Albumin/Globulin Ratio 0.9 (0.9-2) 25-OH Vitamin D Total (30-100) ng/ml Urine Color Urine Appearance (Clear) Urine pH (4.5-7.5) Ur Specific [place] (1.000-1.030) Urine Protein (Negative) Urine Glucose (UA) (Negative) Urine Ketones (Negative) Urine Blood (Negative) Urine Nitrite (Negative) Urine Bilirubin (Negative) Urine Urobilinogen (Negative) Ur Leukocyte Esterase (Negative) Urine WBC (Auto) (0-5) /hpf Urine RBC (Auto) (0-4) /hpf U Hyaline Cast (Auto) (0-5) /lpf U Epithel Cells (Auto) (0-5) /lpf Urine Bacteria (Auto) (Negative) Nasal Screen MRSA (PCR) (Negative) Blood Type Antibody Screen Crossmatch 09/28/19 09/28/19 09/28/19 Range/Units 22:15 20:42 19:36 WBC (4.8-10.8) K/uL RBC (4.7-6.1) M/uL Hgb (14.0-18.0) g/dL Hct (42-52) % MCV (80-100) fL MCH (25-34) pg MCHC (32-36) g/dL RDW Std Deviation (36.4-46.3) fL RDW Coeff of Dung (11.5-14.5) % Plt Count (130-400) K/uL MPV (7.4-10.4) fL Immature Gran % (Auto) % Neut % (Auto) % Lymph % (Auto) % [place] % (Auto) % Eos % (Auto) % Baso % (Auto) % Immature Gran # (Auto) (0.00-0.02) K/uL Neut # (Auto) (1.4-6.5) K/uL Lymph # (Auto) (1.2-3.4) K/uL [place] # (Auto) (0.11-0.59) K/uL Eos # (Auto) (0-0.5) K/uL Baso # (Auto) (0-0.2) K/uL Hypochromasia PT 25.5 H (9.0-12.0) Seconds INR 2.7 H (0.9-1.1) APTT (21.0-31.0) Seconds PTT Ratio Sodium (136-145) mmol/L Potassium (3.5-5.1) mmol/L Chloride (98-107) mmol/L Carbon Dioxide (21-32) mmol/L Anion Gap (3-11) BUN (7-18) mg/dl Creatinine (0.6-1.4) mg/dl Est Cr Clr Drug Dosing ml/min Est GFR ( Amer) Est GFR (Non-Af Amer) BUN/Creatinine Ratio (10-20) Glucose (70-99) mg/dl POC Glucose 117 H (70-99) Estimat Average Glucose mg/dl Hemoglobin A1c (4.5-5.6) % Calcium (8.5-10.1) mg/dl Magnesium (1.8-2.4) mg/dl Total Bilirubin (0.2-1) mg/dl AST (15-37) U/L ALT (12-78) U/L Alkaline Phosphatase (45-117) U/L Total Protein (6.4-8.2) gm/dl Albumin (3.4-5.0) gm/dl Globulin (2.5-4.0) gm/dl Albumin/Globulin Ratio (0.9-2) 25-OH Vitamin D Total (30-100) ng/ml Urine Color Urine Appearance (Clear) Urine pH (4.5-7.5) Ur Specific [place] (1.000-1.030) Urine Protein (Negative) Urine Glucose (UA) (Negative) Urine Ketones (Negative) Urine Blood (Negative) Urine Nitrite (Negative) Urine Bilirubin (Negative) Urine Urobilinogen (Negative) Ur Leukocyte Esterase (Negative) Urine WBC (Auto) (0-5) /hpf Urine RBC (Auto) (0-4) /hpf U Hyaline Cast (Auto) (0-5) /lpf U Epithel Cells (Auto) (0-5) /lpf Urine Bacteria (Auto) (Negative) Nasal Screen MRSA (PCR) Positive A (Negative) Blood Type Antibody Screen Crossmatch 09/28/19 09/28/19 09/28/19 Range/Units 19:36 17:27 15:30 WBC 7.59 (4.8-10.8) K/uL RBC 2.83 L (4.7-6.1) M/uL Hgb 8.1 L (14.0-18.0) g/dL Hct 25.7 L (42-52) % MCV 90.8 (80-100) fL MCH 28.6 (25-34) pg MCHC 31.5 L (32-36) g/dL RDW Std Deviation 52.6 H (36.4-46.3) fL RDW Coeff of Dung 15.8 H (11.5-14.5) % Plt Count 130 (130-400) K/uL MPV 10.1 (7.4-10.4) fL Immature Gran % (Auto) 0.1 % Neut % (Auto) 77.2 % Lymph % (Auto) 8.4 % [place] % (Auto) 13.2 % Eos % (Auto) 0.7 % Baso % (Auto) 0.4 % Immature Gran # (Auto) 0.01 (0.00-0.02) K/uL Neut # (Auto) 5.86 (1.4-6.5) K/uL Lymph # (Auto) 0.64 L (1.2-3.4) K/uL [place] # (Auto) 1.00 H (0.11-0.59) K/uL Eos # (Auto) 0.05 (0-0.5) K/uL Baso # (Auto) 0.03 (0-0.2) K/uL Hypochromasia PT (9.0-12.0) Seconds INR (0.9-1.1) APTT (21.0-31.0) Seconds PTT Ratio Sodium (136-145) mmol/L Potassium (3.5-5.1) mmol/L Chloride (98-107) mmol/L Carbon Dioxide (21-32) mmol/L Anion Gap (3-11) BUN (7-18) mg/dl Creatinine (0.6-1.4) mg/dl Est Cr Clr Drug Dosing ml/min Est GFR ( Amer) Est GFR (Non-Af Amer) BUN/Creatinine Ratio (10-20) Glucose (70-99) mg/dl POC Glucose 129 H (70-99) Estimat Average Glucose mg/dl Hemoglobin A1c (4.5-5.6) % Calcium (8.5-10.1) mg/dl Magnesium (1.8-2.4) mg/dl Total Bilirubin (0.2-1) mg/dl AST (15-37) U/L ALT (12-78) U/L Alkaline Phosphatase (45-117) U/L Total Protein (6.4-8.2) gm/dl Albumin (3.4-5.0) gm/dl Globulin (2.5-4.0) gm/dl Albumin/Globulin Ratio (0.9-2) 25-OH Vitamin D Total (30-100) ng/ml Urine Color Yellow Urine Appearance Cloudy A (Clear) Urine pH 5.0 (4.5-7.5) Ur Specific [place] 1.015 (1.000-1.030) Urine Protein 1+ H (Negative) Urine Glucose (UA) Negative (Negative) Urine Ketones Negative (Negative) Urine Blood 1+ H (Negative) Urine Nitrite Negative (Negative) Urine Bilirubin Negative (Negative) Urine Urobilinogen Negative (Negative) Ur Leukocyte Esterase Negative (Negative) Urine WBC (Auto) 1-5 (0-5) /hpf Urine RBC (Auto) 5-10 H (0-4) /hpf U Hyaline Cast (Auto) 1-5 (0-5) /lpf U Epithel Cells (Auto) 20-30 H (0-5) /lpf Urine Bacteria (Auto) Negative (Negative) Nasal Screen MRSA (PCR) (Negative) Blood Type Antibody Screen Crossmatch 09/28/19 09/28/19 09/28/19 Range/Units 11:58 11:58 11:58 WBC (4.8-10.8) K/uL RBC (4.7-6.1) M/uL Hgb (14.0-18.0) g/dL Hct (42-52) % MCV (80-100) fL MCH (25-34) pg MCHC (32-36) g/dL RDW Std Deviation (36.4-46.3) fL RDW Coeff of Dung (11.5-14.5) % Plt Count (130-400) K/uL MPV (7.4-10.4) fL Immature Gran % (Auto) % Neut % (Auto) % Lymph % (Auto) % [place] % (Auto) % Eos % (Auto) % Baso % (Auto) % Immature Gran # (Auto) (0.00-0.02) K/uL Neut # (Auto) (1.4-6.5) K/uL Lymph # (Auto) (1.2-3.4) K/uL [place] # (Auto) (0.11-0.59) K/uL Eos # (Auto) (0-0.5) K/uL Baso # (Auto) (0-0.2) K/uL Hypochromasia PT 44.1 H (9.0-12.0) Seconds INR 4.8 H (0.9-1.1) APTT 43.8 H (21.0-31.0) Seconds PTT Ratio 1.6 Sodium 139 (136-145) mmol/L Potassium 3.5 (3.5-5.1) mmol/L Chloride 106 (98-107) mmol/L Carbon Dioxide 27 (21-32) mmol/L Anion Gap 6.0 (3-11) BUN 58 H (7-18) mg/dl Creatinine 3.79 H (0.6-1.4) mg/dl Est Cr Clr Drug Dosing 16.1 ml/min Est GFR ( Amer) 16.4 Est GFR (Non-Af Amer) 14.1 BUN/Creatinine Ratio 15.4 (10-20) Glucose 114 H (70-99) mg/dl POC Glucose (70-99) Estimat Average Glucose mg/dl Hemoglobin A1c (4.5-5.6) % Calcium 8.7 (8.5-10.1) mg/dl Magnesium (1.8-2.4) mg/dl Total Bilirubin (0.2-1) mg/dl AST (15-37) U/L ALT (12-78) U/L Alkaline Phosphatase (45-117) U/L Total Protein (6.4-8.2) gm/dl Albumin (3.4-5.0) gm/dl Globulin (2.5-4.0) gm/dl Albumin/Globulin Ratio (0.9-2) 25-OH Vitamin D Total (30-100) ng/ml Urine Color Urine Appearance (Clear) Urine pH (4.5-7.5) Ur Specific [place] (1.000-1.030) Urine Protein (Negative) Urine Glucose (UA) (Negative) Urine Ketones (Negative) Urine Blood (Negative) Urine Nitrite (Negative) Urine Bilirubin (Negative) Urine Urobilinogen (Negative) Ur Leukocyte Esterase (Negative) Urine WBC (Auto) (0-5) /hpf Urine RBC (Auto) (0-4) /hpf U Hyaline Cast (Auto) (0-5) /lpf U Epithel Cells (Auto) (0-5) /lpf Urine Bacteria (Auto) (Negative) Nasal Screen MRSA (PCR) (Negative) Blood Type A Positive Antibody Screen NEGATIVE Crossmatch See Detail 09/28/19 Range/Units 11:58 WBC 6.24 (4.8-10.8) K/uL RBC 2.38 L (4.7-6.1) M/uL Hgb 6.9 L* (14.0-18.0) g/dL Hct 21.8 L (42-52) % MCV 91.6 (80-100) fL MCH 29.0 (25-34) pg MCHC 31.7 L (32-36) g/dL RDW Std Deviation 52.2 H (36.4-46.3) fL RDW Coeff of Dung 15.4 H (11.5-14.5) % Plt Count 134 (130-400) K/uL MPV 10.2 (7.4-10.4) fL Immature Gran % (Auto) 0.2 % Neut % (Auto) 72.0 % Lymph % (Auto) 12.5 % [place] % (Auto) 11.9 % Eos % (Auto) 2.9 % Baso % (Auto) 0.5 % Immature Gran # (Auto) 0.01 (0.00-0.02) K/uL Neut # (Auto) 4.50 (1.4-6.5) K/uL Lymph # (Auto) 0.78 L (1.2-3.4) K/uL [place] # (Auto) 0.74 H (0.11-0.59) K/uL Eos # (Auto) 0.18 (0-0.5) K/uL Baso # (Auto) 0.03 (0-0.2) K/uL Hypochromasia Present PT (9.0-12.0) Seconds INR (0.9-1.1) APTT (21.0-31.0) Seconds PTT Ratio Sodium (136-145) mmol/L Potassium (3.5-5.1) mmol/L Chloride (98-107) mmol/L Carbon Dioxide (21-32) mmol/L Anion Gap (3-11) BUN (7-18) mg/dl Creatinine (0.6-1.4) mg/dl Est Cr Clr Drug Dosing ml/min Est GFR ( Amer) Est GFR (Non-Af Amer) BUN/Creatinine Ratio (10-20) Glucose (70-99) mg/dl POC Glucose (70-99) Estimat Average Glucose mg/dl Hemoglobin A1c (4.5-5.6) % Calcium (8.5-10.1) mg/dl Magnesium (1.8-2.4) mg/dl Total Bilirubin (0.2-1) mg/dl AST (15-37) U/L ALT (12-78) U/L Alkaline Phosphatase (45-117) U/L Total Protein (6.4-8.2) gm/dl Albumin (3.4-5.0) gm/dl Globulin (2.5-4.0) gm/dl Albumin/Globulin Ratio (0.9-2) 25-OH Vitamin D Total (30-100) ng/ml Urine Color Urine Appearance (Clear) Urine pH (4.5-7.5) Ur Specific [place] (1.000-1.030) Urine Protein (Negative) Urine Glucose (UA) (Negative) Urine Ketones (Negative) Urine Blood (Negative) Urine Nitrite (Negative) Urine Bilirubin (Negative) Urine Urobilinogen (Negative) Ur Leukocyte Esterase (Negative) Urine WBC (Auto) (0-5) /hpf Urine RBC (Auto) (0-4) /hpf U Hyaline Cast (Auto) (0-5) /lpf U Epithel Cells (Auto) (0-5) /lpf Urine Bacteria (Auto) (Negative) Nasal Screen MRSA (PCR) (Negative) Blood Type Antibody Screen Crossmatch Medications Administered Current Inpatient Medications Acetaminophen (Tylenol) 500 mg PO QID [facility] Stop: 10/28/19 17:59 Last Admin: 09/29/19 08:08 Dose: 500 mg Documented by: Bisacodyl (Dulcolax) 10 mg ND DAILY PRN PRN Reason: Constipation Stop: 10/28/19 17:03 Dextrose (Dextrose 50%) 25 - 50 ml IV UD PRN; Protocol PRN Reason: Hypoglycemia Protocol Stop: 10/28/19 17:03 Ferrous Gluconate (Ferrous Gluconate) 324 mg PO QAM [facility] Stop: 10/29/19 08:59 Last Admin: 09/29/19 08:10 Dose: 324 mg Documented by: Glucagon (Glucagen) 1 mg SQ UD PRN; Protocol PRN Reason: Hypoglycemia Protocol Stop: 10/28/19 17:03 Glucose (Glucose 40%) 15 - 30 gm PO UD PRN; Protocol PRN Reason: Hypoglycemia Protocol Stop: 10/28/19 17:03 Glucose (Dex4 Glucose) 4 - 8 tabs PO UD PRN; Protocol PRN Reason: Hypoglycemia Protocol Stop: 10/28/19 17:03 Sodium Chloride (Nss) 250 mls @ 15 mls/hr IV .[id number] PRN PRN Reason: For Transfusion Stop: 10/28/19 12:28 Pantoprazole Sodium 40 mg/ (Dextrose) 100 mls @ 20 mls/hr IV Q5H [facility] Stop: 10/28/19 12:59 Last Admin: 09/29/19 08:50 Dose: 20 mls/hr Documented by: Cefazolin Sodium (Ancef 2000mg) 2,000 mg in 15 mls @ 3.75 mls/min IV PREOP [facility]; Protocol Stop: 09/29/19 18:00 Furosemide 40 mg/ Syringe 4 mls @ 4 mls/min IV BID [facility] Stop: 10/29/19 08:59 Last Admin: 09/29/19 08:50 Dose: 4 mls/min Documented by: Insulin Aspart (Novolog Flexpen) 0 units SC ACHS [facility] Stop: 10/28/19 17:59 Last Admin: 09/29/19 08:53 Dose: Not Given Documented by: Metoprolol Succinate (Toprol Xl) 100 mg PO BID [facility] Stop: 10/28/19 20:59 Last Admin: 09/29/19 08:09 Dose: 100 mg Documented by: Miscellaneous (Carbohydrates For Hypoglycemia) 15 - 30 gm PO UD PRN PRN Reason: Hypoglycemia Protocol Stop: 10/28/19 17:03 Miscellaneous (Order Awaiting Action) 1 ea N/A QS [facility] Stop: 10/29/19 00:00 Last Admin: 09/29/19 08:08 Dose: Not Given Documented by: Morphine Sulfate (Morphine Sulfate) 2 mg IV Q2H PRN PRN Reason: MODERATE Pain (Scale 4,5,6) Stop: 10/12/19 17:03 Naloxone HCl (Narcan) 0.1 mg IV UD PRN PRN Reason: Opiate Overdose Stop: 10/28/19 17:03 Ondansetron HCl (Zofran) 4 mg IV Q6H PRN PRN Reason: Nausea Stop: 10/28/19 17:03 Polyethylene Glycol (Miralax Powder Packet) 17 gm PO DAILY PRN PRN Reason: Constipation Stop: 10/28/19 17:03 Rosuvastatin Calcium (Crestor) 20 mg PO QAM [facility] Stop: 10/29/19 08:59 Last Admin: 09/29/19 08:10 Dose: 20 mg Documented by: Senna/Docusate Sodium (Senokot S) 2 tab PO HS [facility] Stop: 10/28/19 20:59 Last Admin: 09/28/19 21:37 Dose: 2 tab Documented by: Sertraline HCl (Zoloft) 50 mg PO QAM [facility] Stop: 10/29/19 08:59 Last Admin: 09/29/19 08:10 Dose: 50 mg Documented by: Tramadol HCl (Ultram) 50 mg PO Q4H PRN PRN Reason: Mild Pain Stop: 10/28/19 17:03 Last Admin: 09/29/19 08:49 Dose: 50 mg Documented by: (1) DMII (diabetes mellitus, type 2) Diabetes mellitus complication status: without complication Diabetes mellitus ferry [employer] agent insulin use: without ferry terminal agent use Qualified Code(s): E11.9 - Type 2 diabetes mellitus without complications (2) CAD (coronary artery disease) Associated angina: without angina Coronary Disease-Associated Artery/Lesion type: [place] artery [place] vs. transplanted heart: [place] heart Qualified Code(s): I25.10 - Atherosclerotic heart disease of [place] coronary artery without angina pectoris (3) Anemia Anemia type: unspecified type Qualified Code(s): D64.9 - Anemia, unspecified (4) Fall Encounter type: initial encounter Qualified Code(s): W19.XXXA - Unspecified fall, initial encounter (5) Closed fracture of left hip Encounter type: initial encounter Qualified Code(s): S72.002A - Fracture of unspecified part of neck of left femur, initial encounter for closed fracture
--- NOTE | 2019-09-29 11:20 | XRay Report ---
XR KUB/Abdomen 1 view CLINICAL HISTORY: abdominal distention, r/o obstruction pain. Nausea. COMPARISON STUDY: 01/12/2019 FINDINGS: The soft tissues, psoas shadows, renal outlines and intestinal gas pattern appear normal. T here is no evidence for bowel obstruction. No abnormal abdominal calcifications are seen. IMPRESSION: Normal study. No evidence for obstruction. The above report was generated using voice recognition software. It may contain grammatical, syntax or spelling errors. Electronically signed by: Brennen Nguyen M.D. 09/29/2019 11:18 AM
--- NOTE | 2019-09-29 11:39 | Gastrointestinal Consultation ---
Date of Consultation September 29, 2019 Assessment & Plan (1) Hematemesis: Likely secondary to gastritis as seen on recent EGD. We considered EGD but held as surgery is being planned. However, after discussion with his labor delivery specialist, it was thought the, with his hx of cardiac disease and CHF, sedating him twice on the same day may increase his risks for adverse events. Will hold on endoscopy but would reconsider if any gross GI bleeding or further drop in Hb/Hct. Present on Admission?: Yes (2) Cirrhosis of liver: His cirrhosis with mild ascites (on imaging only) seems well compensated. He has never had hepatic encephalopathy and does not have esophageal varices. However, his [facility] Post Operative Risk Score is calculated at: 19% mortality risk in the first 7 days after surgery,58% mortality risk in 30 days. He is at risk for decompensation of his cirrhosis with major surgery. Complications of major surgery in cirrhotic patients may include hepatic encephalopathy, increased bleeding, major fluid shifts causing electrolyte derangement, hypotension, and worsening renal failure. Present on Admission?: Yes Supervising Physician Co-Signing Physician Notes I performed a history and physical examination of the patient, including specifically on physical exam - soft, nontender abdomen. I have discussed the patient's management with Chelsie. Please refer to the nurse practitioner's note for the documented findings and plan of care. 79 yrs old male patient with Liver cirrhosis, etiology thpought to vbe realted to prior Alcohol use, Hx of SBP, mild ascites, CHF, CKD, admitted with Hip fracture and coffee ground emesis. No further emesis now. H/H improved after ME BC transfusion. From Liver standpoint. he is at high risk perioperatively for decompensation. He may benefit from Albumin infusion. Avoid excessive fluid shift during sedation. Monitor for Hepatic encephalopathy and closely monitor kidney function. Will hold on EGD unless emesis recurs. History of Present Illness Reason for Consultation: Hematemesis Requesting Physician: Jessica Lopez PA-C Attending Physician: Iron Kumar MD History of Present Illness Mr. Alla Cottrell is an 79 yr old pt of Dr. Thomas with a hx of DM-2, ischemic cardiomyopathy, CHF, A-fib on warfarin. He was brought to the ED for a witnessed fall. He has been found to have a hip fracture and surgery is planned for this afternoon. GI was consulted because he had one episode of vomiting last night consisting of brown emesis with small back of red blood. His daughter tells me that he has not had any gross GI bleeding at home. On arrival, Hb 6.9, BUN 58 also with rise in Cr at 3.7 from recent baseline of 2.8. He has remained hemodynamically stable. On exam, he is sleepy but arousable and his family answers questions for him but he seems awake and oriented. He is also known to our GI group because he has cirrhosis with ascites which was dx'ed on imaging in Jul 2018, seen by Alejandro Ly in GI clinic in 2017, diuretics managed by cardiology, most recent liver imaging in January 2019 w/o focal mass. We were also consulted in July for melena and he underwent EGD on 07/27/[address] Medley for melena with findings of chronic gastritis. Thus far all imaging has shown slight ascites on exam today he does not have any obvious ascites. His daughter has noticed that he has had more abdominal bloating this week than previously. On exam, his abdomen seems to have gaseous distention w/o obvious ascites. Allergies Allergy/AdvReac Type Severity Reaction Status Date / Time fentanyl Allergy Severe Decreased Verified 09/28/19 13:19 oxygen saturation, low RR, unresponsive midazolam Allergy Severe Decreased Verified 09/28/19 13:19 oxygen saturation, low RR, unresponsive. codeine Allergy Unknown GI SYMPTOMS Verified 09/28/19 13:19 promethazine [From Phenergan] AdvReac Severe severe Verified 09/28/19 13:19 fatigue BRIANA Inhibitors AdvReac Mild cough, Verified 09/28/19 13:19 cefuroxime AdvReac Mild GI SYMPTOMS Verified 09/28/19 13:19 Home Medications Home Medications Medication Instructions Recorded Confirmed Type clopidogrel [Plavix] 75 mg PO QAM 08/16/18 09/28/19 History coenzyme Q10 [Co Q-10] 10 mg PO QAM 08/16/18 09/28/19 History cyanocobalamin (vitamin B-12) 1,000 mcg PO QAM 08/16/18 09/28/19 History ferrous gluconate 324 mg PO QAM 08/16/18 09/28/19 History multivitamin [Multiple Vitamins] 1 tab PO QAM 08/16/18 09/28/19 History nitroglycerin [Nitrostat] 0.4 mg SUBLINGUAL UD PRN 08/16/18 09/28/19 History rosuvastatin [Crestor] 20 mg PO QAM 08/16/18 09/28/19 History sertraline 50 mg PO QAM 08/16/18 09/28/19 History glipizide 2.5 mg PO BID #30 tab 02/01/19 09/28/19 Rx dextromethorphan-guaifenesin 1 tab PO Q12H PRN 03/17/19 09/28/19 History [Mucinex DM] testosterone 1 packet TRANSDERMAL DAILY 03/17/19 09/28/19 History warfarin 5 mg PO 6XWK 03/17/19 09/28/19 History torsemide 100 mg PO DAILY 05/02/19 09/28/19 History pantoprazole 40 mg PO BID 30 Days #60 tab 07/28/19 09/28/19 Rx metoprolol succinate 100 mg PO BID 09/28/19 09/28/19 History warfarin 2.5 mg PO WK 09/28/19 09/28/19 History Patient History Medical History CKD (chronic kidney disease), stage IV (Chronic) Cirrhosis of liver (Chronic) Anticoagulant long-term use (Chronic) Ischemic cardiomyopathy (Chronic) DMII (diabetes mellitus, type 2) (Chronic) CAD (coronary artery disease) (Chronic) Pericardial effusion (Resolved) Anemia in chronic kidney disease (Chronic) SBP (spontaneous bacterial peritonitis) (Resolved) Depression (Chronic) HTN (hypertension) (Chronic) History of renal carcinoma (Chronic) Chronic systolic heart failure (Chronic) Ascites (Resolved) CAD (coronary artery disease) (Chronic) "2005 - PCI to LAD cath 2011 - no significant obstructive disease" CVA (cerebral vascular accident) (Chronic) Squamous cell carcinoma (Chronic) Basal cell carcinoma (Chronic) V tach (Chronic) "s/p AICD placement" Gross hematuria (Resolved) Myocardial infarction Surgical History History of prior ablation treatment (Chronic) CT guided tissue ablation R kidney S/P ICD (internal cardiac defibrillator) procedure (Chronic) History of cataract surgery (Chronic) Family History Father Coronary heart disease Mother Coronary heart disease Social History Preferred Language: Chinese Communication Ability: Effective Visual Impairment: No Limitations Meat Scrubber Required: No Beliefs That Will Affect Care: None marital status: Current Living Situation: Spouse and Family Other Information That Helps Us Care for You: No Feels Safe at Home: Yes Safety Concerns: Feels Safe At This Time Smoking Status: Former smoker Tobacco Type: cigarettes ; Do You Dip or Chew Tobacco: Yes ; Second Hand Exposure: No ; Tobacco Cessation Education Requested by Patient: No Hx Alcohol Use: No Hx Substance Use: No Review of Systems Constitutional: + weakness (chronic but no worsening prior to the fall.); no fever and no chills Eyes: no problem reported Ear, Nose, Mouth, Throat: chronically hard of hearing Respiratory: no cough, no dyspnea and no wheezing Cardiovascular: no chest pain, no palpitations, no syncope and no edema Gastrointestinal: + nausea (no c/o nausea but vomited once last night), + vomiting and + hematemesis; no abdominal pain Integumentary: no rash easy bruising on warfarin Neurologic: + falls; no tremor(s) and no confusion Physical Exam Constitutional: WD/WN, vitals as above Eyes: PERRL, conjunctivae normal, anicteric sclerae ENMT: external ear and nose normal, oropharynx normal Neck: trachea midline, no thyromegaly Respiratory: normal respiratory effort, lungs clear to auscultation Auscultation: + diminished lung sounds (at both bases but no adventitious sounds) Cardiovascular: RRR, no murmur, no edema Gastrointestinal (Abdomen): Inspection/Auscultation: + abdomen distended (mildly); no abdominal edema Percussion/Palpation: abdomen soft; abdomen nontender no ascites Skin: no rashes, warm and dry no jaundice Neurologic: PERRL, EOMI, accommodation nl, no face palsy, no dysarthria Psychiatric: Orientation: oriented x 3 Lymphatic: no cervical or axillary lymphadenopathy Results & Data Vital Signs (Past 12 Hours) Vital Signs Temp Pulse Pulse Resp BP BP BP 09/29/19 11:30 36.4 C L 67 20 109/67 09/29/19 07:39 36.5 C 65 22 112/75 09/29/19 04:00 09/29/19 03:47 36.8 C 62 20 133/78 09/29/19 01:16 36.3 C L 65 16 106/62 09/29/19 00:15 36.3 C L 62 16 108/65 09/29/19 00:00 Pulse Ox Pulse Ox 09/29/19 11:30 100 09/29/19 07:39 95 09/29/19 04:00 97 09/29/19 03:47 95 09/29/19 01:16 98 09/29/19 00:15 98 09/29/19 00:00 99
[2019-09-29 12:12] LABS: INR 1.6 (0.9-1.1); Prothrombin Time 15.8 Seconds (9.0-12.0)
[2019-09-29] MEDS ORDERED: BACITRACIN INJ 50,000 UNIT VIAL ONE (12:46)
[2019-09-29] MEDS ORDERED: EPINEPHrine INJ 1 MG/ML AMP ONE (12:47)
[2019-09-29] MEDS ORDERED: BUPIVACAINE 0.5 % 5 MG/1 ML MPF 30ML VIAL ONE (12:47)
[2019-09-29] MEDS ORDERED: HYDROmorphone INJ 1 MG/ML SYRINGE IV PRN (13:24)
[2019-09-29] MEDS ORDERED: ATROPINE SULFATE 0.1 MG/ML 10ML SYR IV PRN (13:24)
[2019-09-29] MEDS ORDERED: ONDANSETRON INJ 2 MG/ML 2 ML VIAL IV PRN ×2 (13:24→17:07)
[2019-09-29] MEDS ORDERED: fentaNYL citrate 100 MCG/2 ML VIAL ONE ×2 (13:51→14:55)
[2019-09-29] MEDS ORDERED: CISATRACURIUM BESYLATE IV SOLN 2 MG/ML 10 ML VIAL IV ONE (14:31)
[2019-09-29] MEDS ORDERED: GLYCOPYRROLATE 0.2 MG/ML VIAL ONE (14:31)
[2019-09-29] MEDS ORDERED: ONDANSETRON INJ 2 MG/ML 2 ML VIAL ONE (14:31)
[2019-09-29] MEDS ORDERED: ETOMIDATE 2 MG/ML 20 ML VIAL IV ONE (14:31)
[2019-09-29] MEDS ORDERED: PROPOFOL IV EMULSION 10 MG/ML 20 ML VIAL IV ONE (14:31)
[2019-09-29] MEDS ORDERED: NEOSTIGMINE METHYLSULFATE 5 MG/5 ML SYR ONE (14:31)
[2019-09-29] MEDS ORDERED: LIDOCAINE HCL 2% 2 ML VIAL/AMP(20MG/ML) INFIL ONE (14:31)
--- NOTE | 2019-09-29 15:36 | Post Operative Brief Note ---
PG Immediate Post Op with CF Date of Surgery September 29, 2019 Pre & Post Diagnosis Operation Date: 09/29/19 07:30 Pre-Op Diagnosis: Left hip fracture Post-Op Diagnosis: Left hip fracture Operation Date: 09/29/19 15:30 Left Cemented Bipolar Hip Arthroplasty I identified the patient and participated in the time-out.: Yes Procedure Operation Date: 09/29/19 07:30 Actual Procedures p Left Hip Hemiarthroplasty(Left) - Aditya Torres MD Operation Date: 09/29/19 15:30 <No data on this case meets the specified criteria> Surgeon Aditya Torres MD [employer] [facility]ide, PAC Estimated Blood Loss 300 Findings Consistent with Post-Op Diagnosis Fluids 800 cc crystalloid + 300 cc blood Specimens Specimen Description: Permanent specimen A: left femoral head Drains Browning Catheter (patient arrives to OR with browning catheter in place; browning demonstrates cloudy yellow urine.) Anesthesia Type General Complications none Disposition Accompanied Patient To Recovery: No Disposition: Recovery Room
--- NOTE | 2019-09-29 16:39 | XRay Report ---
XR hip 1V LT w pelvis CLINICAL HISTORY: 79 years-old Male presenting with IN PACU - A/P PELVIS and LATERAL HIP . TECHNIQUE: Frontal view of the pelvis and crosstable lateral view the left hip were obtained. COMPARISON: 09/28/2019. FINDINGS: Postsurgical changes of total left hip arthroplasty for the prior left femoral neck fracture. Expecte d soft tissue emphysema. Overlying skin krystin. No periprosthetic fracture or lucency. No malalignme nt. Visualized portion of the pelvis intact with notable exclusion of the iliac crests and sacrum. IMPRESSION: Expected postsurgical appearance status post total left hip arthroplasty. Electronically signed by: Osiel Rose M.D. 09/29/2019 4:37 PM
[2019-09-29] MEDS ORDERED: METOCLOPRAMIDE HCL INJ 5 MG/ML 2 ML VIAL IV PRN (17:07)
[2019-09-29] MEDS ORDERED: BISACODYL 10 MG SUPP PR PRN (17:07)
[2019-09-29] MEDS ORDERED: MAGNESIUM HYDROXIDE SUSP 30 ML UDC PO PRN (17:07)
[2019-09-29] MEDS ORDERED: TAMSULOSIN HCL 0.4 MG CAP PO PRN (17:07)
[2019-09-29] MEDS ORDERED: NALOXONE HCL 0.4 MG/1 ML VIAL/CARP IV PRN (17:07)
[2019-09-29] MEDS ORDERED: NITROGLYCERIN SL 0.4 MG/TAB TAB SL PRN (17:07)
--- NOTE | 2019-09-29 17:47 | Anesthesiology Progress Note ---
Date of Service September 29, 2019 Anesthesia Post Procedure Vital Signs Vital Signs: Temp Pulse Pulse Pulse Pulse Resp BP 09/29/19 17:07 36.7 C 74 74 19 09/29/19 16:35 36.3 C L 62 12 09/29/19 16:25 72 13 09/29/19 16:15 86 17 09/29/19 16:05 87 19 09/29/19 15:55 78 15 09/29/19 15:47 36.2 C L 96 H 14 09/29/19 13:03 36.6 C 59 L 16 09/29/19 11:30 36.4 C L 67 20 09/29/19 07:39 36.5 C 65 22 09/29/19 04:00 09/29/19 03:47 36.8 C 62 20 09/29/19 01:16 36.3 C L 65 16 106/62 09/29/19 00:15 36.3 C L 62 16 108/65 09/29/19 00:00 09/28/19 23:27 36.6 C 62 14 09/28/19 23:15 36.3 C L 63 16 106/60 09/28/19 22:45 36.3 C L 63 16 108/59 L 09/28/19 22:06 36.8 C 65 121/70 09/28/19 21:51 36.5 C 52 L 127/69 09/28/19 21:32 37.0 C 119/64 09/28/19 19:47 36.5 C 64 16 BP BP Pulse Ox Pulse Ox 09/29/19 17:07 119/76 97 09/29/19 16:35 123/65 98 09/29/19 16:25 99/60 L 94 09/29/19 16:15 122/67 97 09/29/19 16:05 114/83 99 09/29/19 15:55 125/88 98 09/29/19 15:47 137/83 97 09/29/19 13:03 108/59 L 95 09/29/19 11:30 109/67 100 09/29/19 07:39 112/75 95 09/29/19 04:00 97 09/29/19 03:47 133/78 95 09/29/19 01:16 98 09/29/19 00:15 98 09/29/19 00:00 99 09/28/19 23:27 108/68 98 09/28/19 23:15 98 09/28/19 22:45 99 09/28/19 22:06 09/28/19 21:51 99 09/28/19 21:32 09/28/19 19:47 130/76 94 Pain Intensity Left Hip: Pain Intensity: 10 Transfer of Care Handoff Completed per policy Notes Mental Status: alert / awake / arousable and participated in evaluation Patient Amnestic to Procedure: Yes Nausea / Vomiting: adequately controlled Pain: adequately controlled Airway Patency, RR, SpO2: stable & adequate BP & HR: stable & adequate Hydration State: stable & adequate Anesthetic Complications: no major complications apparent and Pt Satisfied with anesthetic care
[2019-09-29] MEDS: SODIUM CHLORIDE 0.9% 1000ML 1,000 ML IV SCH ×2 (18:19→22:57)
[2019-09-29] MEDS ORDERED: guaiFENesin 600 MG TABCR PO PRN (18:48)
--- NOTE | 2019-09-29 18:54 | Operative Report ---
DATE OF OPERATION: 09/28/2019 SURGEON: Aditya Torres MD. SCRAPER TENDER: YSABEL Villalobos. PREOPERATIVE DIAGNOSIS: Left displaced femoral neck fracture. POSTOPERATIVE DIAGNOSIS: Left displaced femoral neck fracture. PROCEDURE PERFORMED: Left cemented bipolar hip arthroplasty. ESTIMATED BLOOD LOSS: 300 mL. FLUID REPLACEMENT: 800 mL of crystalloid fluid replacement and 300 mL of packed red blood cells. COMPLICATIONS: None. ANESTHESIA: General. SPECIMENS: Left femoral head sent for pathology. OPERATIVE INDICATIONS: The patient is an 79-year-old male with multiple medical comorbidities who was a previous ambulator with a walker, who sustained a mechanical fall yesterday. He was brought to the Emergency Room where x-rays revealed a displaced femoral neck fracture. The patient has multiple medical problems and was admitted with a very low hemoglobin. He was admitted by the hospitalist service and medically optimized. He was evaluated clinically by multiple services. He is felt to be medically optimized. The patient and family both elected to proceed with surgical treatment. He was on Coumadin. This was reversed with vitamin K. It was still a little bit high, but based on his history and the risks and benefits, I felt it is best to proceed with surgery at this point rather than delaying surgery for risk of further demise. OPERATIVE IMPLANTS: Consisted of: 1. A Giuseppe size 12 Ld/Fx femoral fracture stem. 2. A +7/28, 8 mm articular ball. 3. A 52 mm bipolar shell/liner. 4. Size 11 distal centralizer. 5. Small cement restrictor. OPERATIVE PROCEDURE: The patient was taken to the operating room, identified and placed on the operating table in supine position. All contact areas were appropriately padded. IV antibiotics were provided by anesthesia team. A general anesthetic was implemented as his INR was still 1.6. The patient was then placed in the right lateral decubitus position. An axillary roll was placed. A Stlberg hip positioner was used for positioning. All contact areas were meticulously padded and the left hip and leg were then scrubbed with Hibiclens and then prepped with ChloraPrep and draped in the usual sterile fashion. A posterolateral approach to the left hip was then performed through a curvilinear incision centered over the greater trochanter. Sharp dissection was carried through the subcutaneous tissue down to the level of the IT band and gluteal fascia. The IT band and gluteal fascia were then incised longitudinally in line with skin incision. The underlying greater trochanteric bursa, which was quite hemorrhagic, was excised. There was quite a bit of hematoma posteriorly. This was very carefully cleaned out. The piriformis and external rotators were then tagged and taken off the posterior aspect of the hip joint capsule. Great care was taken throughout the procedure to protect the sciatic nerve at all times. Posterior capsule was then incised to allow for later repair and the hip was internally rotated. Femoral neck osteotomy cut was made at the base of the fracture site. The remaining portion of the femoral neck was removed. The femoral head was then removed. I then sized the acetabulum to a size 52. Attention was then drawn to the femur. The proximal femur was entered with a [employer] cutter followed by a canal finder. I used the lateralizing reamer. I then broached beginning with a size 8 and progressing up to a 12. I tried to get the 13 down but it was pretty tight and I did not want to force this distally. We elected to use the 12 implant. We trialed the hip but it was pretty loose, so we elected to trial once we adequately cemented. All trial implants were removed. Cement restrictor was placed distally. I irrigated the canal extensively. A double batch of Palacos G cement was mixed and injected into the canal. A size 12 femoral stem with 11 centralizer was then placed in maximum anteversion. All extraneous cement was removed. I held this until the cement hardened. We then trialed the hip and I felt like the +7 articular ball provided the most stability and appropriate soft tissue tension and leg lengths. Leg lengths were assessed very carefully. We elected to place this implant. A +7 articular ball was placed followed by a 52 mm bipolar shell. The hip was located and once again found to be stable. Attention was then drawn to closing. The wound was irrigated with copious amounts of pulsatile lavage solution. I did inject locally with 60 mL of 0.5% Marcaine with epinephrine. The posterior capsule was then repaired with #2 Ti-Cron suture. The piriformis and external rotators were then repaired to the posterior aspect of the hip abductors with #2 Ti-Cron suture. The IT band and gluteal fascia were then closed with #1 PDS suture in running fashion. Subcutaneous tissue was then closed in 2 layers with the deep layer #1 Vicryl sutures, subcutaneous tissue with 2-0 Dexon suture in a buried interrupted fashion. Skin was then closed with skin krystin. Leg was then cleaned, dried and a sterile dressing of Xeroform, 4 x 4, sterile ABD pad and foam tape was applied. The patient was then brought out of general anesthesia and transferred to the recovery room in stable condition. The patient tolerated the procedure quite well. All needle and sponge counts were correct. There were no complications. I attest to the content of the Intraoperative Record and any orders documented therein. Any exceptions are noted below. MTDD
[2019-09-29] MEDS: glipiZIDE 5 MG TAB PO SCH (20:06)
[2019-09-29] MEDS ORDERED: PANTOprazole 40 MG TAB PO SCH (21:00)
[2019-09-29] MEDS: CEFAZOLIN 2000MG 2,000 MG/15 ML SYR IV SCH (22:01)
[2019-09-29] MEDS: DOCUSATE SODIUM 100 MG CAP PO SCH (22:03)
[2019-09-29] MEDS: SENNA 8.6 MG TAB PO SCH (22:04)
[2019-09-29] MEDS: DOCUSATE SODIUM/SENNA 50/8.6MG TAB PO SCH (22:07)
[2019-09-30] MEDS: PANTOprazole 40 MG in DEXTROSE 5% 100 ML IV SCH ×5 (02:38→22:33)
[2019-09-30] MEDS: CEFAZOLIN 2000MG 2,000 MG/15 ML SYR IV SCH (05:21)
[2019-09-30 06:12] LABS: Basophils # (auto) 0.03 K/uL (0-0.2); Basophils % (auto) 0.3 %; Eosinophils # (auto) 0.19 K/uL (0-0.5); Eosinophils % (auto) 1.6 %; Hematocrit (blood only) 25.1 % (42-52); Hemoglobin 8.1 g/dL (14.0-18.0); Immature Granulocytes # (auto) 0.04 K/uL (0.00-0.02); Immature Granulocytes % (auto) 0.3 %; Mean Corpuscular Hemoglobin 28.8 pg (25-34); Mean Corpuscular Hgb Conc 32.3 g/dL (32-36); Mean Corpuscular Volume 89.3 fL (80-100); Mean Platelet Volume 9.7 fL (7.4-10.4); Monocytes # (auto) 1.72 K/uL (0.11-0.59); Monocytes % (auto) 14.5 %; Neutrophils # (auto) 9.31 K/uL (1.4-6.5); Neutrophils % (auto) 78.3 %; Platelet Count 105 K/uL (130-400); RDW Coefficient of Variation 16.3 % (11.5-14.5); RDW Standard Deviation 53.7 fL (36.4-46.3); Red Blood Count 2.81 M/uL (4.7-6.1); White Blood Count 11.89 K/uL (4.8-10.8)
[2019-09-30 06:43] LABS: BUN Creatinine Ratio 15.6 (10-20); Creatinine Clr Calc Pharmacy 15.3 ml/min; Est GFR (African American) 15.5; Est GFR (Non-African American) 13.4; Potassium 3.5 mmol/L (3.5-5.1)
--- NOTE | 2019-09-30 06:58 | Hospitalist Progress Note ---
Date of Service September 30, 2019 Assessment & Plan (1) Fall: (2) Closed fracture of left hip: Mr. Cottrell is an 79-year-old male who has significant PMH of CAD with history of stent 2012, chronic combined systolic and diastolic CHF, chronic atrial fibrillation anticoagulated on warfarin, history of VTACH s/p AICD, history of CVA, HTN, HLD, CKD stage IV, T2DM, history of right clear-cell kidney CA s/p ablation, chronic gastritis who presents to [facility] after sustaining mechanical fall at home prior to arrival. In ED patient did have left hip x-ray which revealed subcapital left hip fracture. Hemoglobin and hematocrit decreased from baseline at 6.9 and 21.8, elevated INR 4.8, A/C CKD-4 BUN/creatinine 58/3.79 Chest x-ray revealed pulmonary vascular congestion and probable trace pleural effusions. He remained hemodynamically stable while in ED. He was typed and crossed and transfused 1 unit PRBC. Emesis in ED tested Heme positive Admitted to PCU to optimize co morbidities including acute on chronic anemia, acute on chronic CKD stage IV, chronic gastritis with hemorrhage, supratherapeutic INR on warfarin Orthopedics Dr. Torres, consulted Hip fx protocol ordered pre op antibiotics with cefazolin - pt has GI side effects to oral ceftin but no anaphylaxis reported per patient and family MRSA Swab ordered Acetaminophen 650 every 8 -limited 2 g given history of cirrhosis Tramadol 50 mg every 4 hours as needed pain (patient intolerant oxycodone) IV morphine 2 mg every 2 hours for severe pain Polanco ordered Thorough discussion between multiple subspecialties, including cardiology, nephrology, GI, given patient's significant co-morbidities, however agreed that it is still in the best patient's interest to proceed with the surgery at this moment. Now pt s/p Left cemented bipolar hip arthroplasty w/ Dr. Torres (09/29/2019) Patient tolerated procedure well, examined postop, vital signs good within goals, family updated at the bedside (3) Anemia: Likely combination of anemia of chronic disease due to CKD stage IV, and blood loss anemia due to known gastritis Nephrology consulted (in the past there was discussion about possible initiation of Procrit due to anemia of chronic disease in setting of CKD stage IV) H&H 6.9 and 21.8 on admission Received multiple pRBCs, with IV lasix Current Hgb 8.1 Continue IV PPI Goal Hgb >8 Baseline hemoglobin around 8 Patient became hypotensive (persistently in lower range), H&H repeated, hemoglobin 7.5 Update: Patient's clinical status has not improved, in the evening consulted ICU, and will transfuse 1 unit of blood (4) Chronic gastritis: Recent EGD last admission 07/26 d/t anemia EGD revealed chronic gastritis with hemorrhage - recommended PPI BID - pt has been complaint with this Patient had episode of emesis in ED which was heme positive scant amount per provider Patient also with scant blood noted in right nasal cavity - ? If heme positive emesis was secondary to this vs findings of chronic gastritis Consult gastroenterology-appreciate their input, GI recommended EGD, however anesthesia would be presenting higher risk for the patient, therefore after discussion with multiple subspecialties, decided to proceed with the surgery, pt will follow up with a GI service afterwards. GI service did provide their assessment, given patient's cirrhosis patient has high risk of mortality postop (17% mortality risk in the first 7 days after surgery, 58 risk mortality risk is 30 days), see GI note for more details Continue IV PPI (5) Acute worsening of stage 4 chronic kidney disease: TOBIN on CKD baseline cr 2.8-3.0 bun/cr 58/3.79,on admission likely worsened in setting of hypovolemia Per family patient was to undergo AV fistula next week Consult nephrology Dr. Martin due to worsened anemia along with assistance in volume status management given advanced CKD (6) Chronic atrial fibrillation: Currently rate controlled on metoprolol succinate 100 mg twice daily Supratherapeutic INR 4.8 IV vitamin K 10 mg given in ED Repeat PT/INR at 7 PM Hold Coumadin for now consult cardiology for preop clearance given hx of chronic afib, hx of cva, CAD, S-CHF Dr. Alexander evaluated patient in the morning, preop, and cooperated with clinical discussion about proceeding with surgery despite patient's multiple risk factors and comorbidities. See more details in cardiology note. (7) Chronic systolic heart failure: Secondary to ischemic cardiomyopathy On outpatient regimen of torsemide 100 mg daily, metoprolol Continue metoprolol, hold torsemide for now -will continue to reevaluate volume status Monitor daily weight Strict I's and O's Heart healthy, low-sodium diet Obtain echocardiogram (8) CAD (coronary artery disease): No current chest pain or shortness of breath History of stent in 2012 As outpatient was on Plavix, Coumadin, statin, metoprolol Hold Coumadin in setting of supratherapeutic INR Hold Plavix for now (until evaluated by cardiology for preop clearance) Continue statin and metoprolol echocardiogram ordered (9) HTN (hypertension): Blood pressure on lower side today, however became more hypotensive later in a day 90s over 40s Likely secondary to anemia, also concern for aspiration, antibiotics started, albumin and PRBCs ordered Discussed with ICU, and family members, okay to proceed with pressors if needed prev. on metoprolol Hold torsemide for now, monitor volume status closely, can use IV Lasix prn (10) DMII (diabetes mellitus, type 2): Last A1c 5.8 On oral glipizide as outpatient Hold glipizide, placed on NovoLog per protocol (11) S/P ICD (internal cardiac defibrillator) procedure: hx of Vtach AICD in place (12) DVT prophylaxis: SCD/TEDS s/p IV Vit K x 10mg due to supratherapeutic INR 4.8 Hold warfarin due to likely procedure Disposition: Admit to PCU, case management consulted Follow-up: PCP Dr. Thomas upon discharge Subjective Overnight reported vomiting (small amount of dark red/brown liquid). Possible concern for aspiration. This morning patient is lying in the bed comfortably. He is sleepy but easily arousable, able to answer questions appropriately, oriented x3. Review of Systems Review of Systems: All systems reviewed & are unremarkable except as noted in HPI & below Constitutional: + fatigue and + malaise; no fever and no chills Respiratory: no cough and no dyspnea Cardiovascular: no chest pain, no dyspnea on exertion and no palpitations Gastrointestinal: no abdominal pain and no nausea Physical Exam Physical Exam: Constitutional: Elderly male laying in bed, + ill appearing, tired appearing, somnolent but easily arousable Eyes: PERRL, EOMI, conjunctivae normal, anicteric sclerae ENMT: external ear and nose normal, oropharynx normal Neck: no JVD, trachea midline, no thyromegaly Respiratory: normal respiratory effort, lungs clear to auscultation, no wheezing, rhonchi, crackles noted Cardiovascular: Rate/Rhythm: + irregularly irregular, + soft systolic murmur at LSB, no JVD, trace pedal edema bilaterally Chest (Breasts): Chest: normal inspection of chest Gastrointestinal (Abdomen): Inspection/Auscultation: + abdomen mildly distended but no fluid wave appreciated, soft, nontender, no guarding Skin: no rashes, warm and dry Neuro/Psych: Alert and oriented x3, speech fluent, PERRL, EOMI, accommodation nl, no face palsy, no dysarthria Results & Data Vital Signs (Past 12 Hours) Vital Signs Temp Pulse Pulse Resp BP BP Pulse Ox 09/30/19 03:51 37.0 C 65 20 104/58 L 99 09/29/19 23:59 37.2 C 70 20 108/63 99 09/29/19 22:20 77 09/29/19 19:58 36.7 C 62 22 109/64 100 Laboratory Results 09/30/19 09/30/19 09/29/19 Range/Units 05:59 05:59 20:06 WBC 11.89 H (4.8-10.8) K/uL RBC 2.81 L (4.7-6.1) M/uL Hgb 8.1 L (14.0-18.0) g/dL Hct 25.1 L (42-52) % MCV 89.3 (80-100) fL MCH 28.8 (25-34) pg MCHC 32.3 (32-36) g/dL RDW Std Deviation 53.7 H (36.4-46.3) fL RDW Coeff of Dung 16.3 H (11.5-14.5) % Plt Count 105 L (130-400) K/uL MPV 9.7 (7.4-10.4) fL Immature Gran % (Auto) 0.3 % Neut % (Auto) 78.3 % Lymph % (Auto) 5.0 % [place] % (Auto) 14.5 % Eos % (Auto) 1.6 % Baso % (Auto) 0.3 % Immature Gran # (Auto) 0.04 H (0.00-0.02) K/uL Neut # (Auto) 9.31 H (1.4-6.5) K/uL Lymph # (Auto) 0.60 L (1.2-3.4) K/uL [place] # (Auto) 1.72 H (0.11-0.59) K/uL Eos # (Auto) 0.19 (0-0.5) K/uL Baso # (Auto) 0.03 (0-0.2) K/uL PT (9.0-12.0) Seconds INR (0.9-1.1) Sodium 140 (136-145) mmol/L Potassium 3.5 (3.5-5.1) mmol/L Chloride 109 H (98-107) mmol/L Carbon Dioxide 24 (21-32) mmol/L Anion Gap 7.0 (3-11) BUN 62 H (7-18) mg/dl Creatinine 3.97 H (0.6-1.4) mg/dl Est Cr Clr Drug Dosing 15.3 ml/min Est GFR ( Amer) 15.5 Est GFR (Non-Af Amer) 13.4 BUN/Creatinine Ratio 15.6 (10-20) Glucose 82 (70-99) mg/dl POC Glucose 108 H (70-99) Calcium 8.0 L (8.5-10.1) mg/dl 25-OH Vitamin D Total (30-100) ng/ml Blood Type Antibody Screen Crossmatch 09/29/19 09/29/19 09/29/19 Range/Units 15:49 11:44 11:29 WBC (4.8-10.8) K/uL RBC (4.7-6.1) M/uL Hgb (14.0-18.0) g/dL Hct (42-52) % MCV (80-100) fL MCH (25-34) pg MCHC (32-36) g/dL RDW Std Deviation (36.4-46.3) fL RDW Coeff of Dung (11.5-14.5) % Plt Count (130-400) K/uL MPV (7.4-10.4) fL Immature Gran % (Auto) % Neut % (Auto) % Lymph % (Auto) % [place] % (Auto) % Eos % (Auto) % Baso % (Auto) % Immature Gran # (Auto) (0.00-0.02) K/uL Neut # (Auto) (1.4-6.5) K/uL Lymph # (Auto) (1.2-3.4) K/uL [place] # (Auto) (0.11-0.59) K/uL Eos # (Auto) (0-0.5) K/uL Baso # (Auto) (0-0.2) K/uL PT 15.8 H (9.0-12.0) Seconds INR 1.6 H (0.9-1.1) Sodium (136-145) mmol/L Potassium (3.5-5.1) mmol/L Chloride (98-107) mmol/L Carbon Dioxide (21-32) mmol/L Anion Gap (3-11) BUN (7-18) mg/dl Creatinine (0.6-1.4) mg/dl Est Cr Clr Drug Dosing ml/min Est GFR ( Amer) Est GFR (Non-Af Amer) BUN/Creatinine Ratio (10-20) Glucose (70-99) mg/dl POC Glucose 113 H 118 H (70-99) Calcium (8.5-10.1) mg/dl 25-OH Vitamin D Total (30-100) ng/ml Blood Type Antibody Screen Crossmatch 09/29/19 09/29/19 09/28/19 Range/Units 07:38 06:03 11:58 WBC (4.8-10.8) K/uL RBC (4.7-6.1) M/uL Hgb (14.0-18.0) g/dL Hct (42-52) % MCV (80-100) fL MCH (25-34) pg MCHC (32-36) g/dL RDW Std Deviation (36.4-46.3) fL RDW Coeff of Dung (11.5-14.5) % Plt Count (130-400) K/uL MPV (7.4-10.4) fL Immature Gran % (Auto) % Neut % (Auto) % Lymph % (Auto) % [place] % (Auto) % Eos % (Auto) % Baso % (Auto) % Immature Gran # (Auto) (0.00-0.02) K/uL Neut # (Auto) (1.4-6.5) K/uL Lymph # (Auto) (1.2-3.4) K/uL [place] # (Auto) (0.11-0.59) K/uL Eos # (Auto) (0-0.5) K/uL Baso # (Auto) (0-0.2) K/uL PT (9.0-12.0) Seconds INR (0.9-1.1) Sodium (136-145) mmol/L Potassium (3.5-5.1) mmol/L Chloride (98-107) mmol/L Carbon Dioxide (21-32) mmol/L Anion Gap (3-11) BUN (7-18) mg/dl Creatinine (0.6-1.4) mg/dl Est Cr Clr Drug Dosing ml/min Est GFR ( Amer) Est GFR (Non-Af Amer) BUN/Creatinine Ratio (10-20) Glucose (70-99) mg/dl POC Glucose 119 H (70-99) Calcium (8.5-10.1) mg/dl 25-OH Vitamin D Total 29.6 L (30-100) ng/ml Blood Type A Positive Antibody Screen NEGATIVE Crossmatch See Detail Medications Administered Current Inpatient Medications Acetaminophen (Tylenol) 500 mg PO QID [facility] Stop: 10/28/19 17:59 Last Admin: 09/29/19 22:03 Dose: 500 mg Documented by: Bisacodyl (Dulcolax) 10 mg VT DAILY PRN PRN Reason: Constipation Stop: 10/28/19 17:03 Bisacodyl (Dulcolax) 10 mg VT DAILY PRN PRN Reason: Constipation Stop: 10/29/19 17:06 Clopidogrel Bisulfate (Plavix) 75 mg PO QAM [facility] Stop: 10/30/19 08:59 Cyanocobalamin (Vitamin B-12) 1,000 mcg PO QAM [facility] Stop: 10/30/19 08:59 Dextrose (Dextrose 50%) 25 - 50 ml IV UD PRN; Protocol PRN Reason: Hypoglycemia Protocol Stop: 10/28/19 17:03 Docusate Sodium (Colace) 100 mg PO BID [facility] Stop: 10/29/19 20:59 Last Admin: 09/29/19 22:03 Dose: 100 mg Documented by: Ferrous Gluconate (Ferrous Gluconate) 324 mg PO QAM [facility] Stop: 10/29/19 08:59 Last Admin: 09/29/19 08:10 Dose: 324 mg Documented by: Glipizide (Glucotrol) 2.5 mg PO BIDM [facility] Stop: 10/29/19 18:29 Last Admin: 09/29/19 20:06 Dose: Not Given Documented by: Glucagon (Glucagen) 1 mg SQ UD PRN; Protocol PRN Reason: Hypoglycemia Protocol Stop: 10/28/19 17:03 Glucose (Glucose 40%) 15 - 30 gm PO UD PRN; Protocol PRN Reason: Hypoglycemia Protocol Stop: 10/28/19 17:03 Glucose (Dex4 Glucose) 4 - 8 tabs PO UD PRN; Protocol PRN Reason: Hypoglycemia Protocol Stop: 10/28/19 17:03 Guaifenesin (Mucinex) 1,200 mg PO Q12H PRN PRN Reason: Cough Stop: 10/29/19 18:47 Sodium Chloride (Nss) 250 mls @ 15 mls/hr IV .[id number] PRN PRN Reason: For Transfusion Stop: 10/28/19 12:28 Pantoprazole Sodium 40 mg/ (Dextrose) 100 mls @ 20 mls/hr IV Q5H [facility] Stop: 10/28/19 12:59 Last Admin: 09/30/19 02:38 Dose: 20 mls/hr Documented by: Insulin Aspart (Novolog Flexpen) 0 units SC ACHS [facility] Stop: 10/28/19 17:59 Last Admin: 09/29/19 21:27 Dose: Not Given Documented by: Magnesium Hydroxide (Milk Of Magnesia) 30 ml PO Q6H PRN PRN Reason: Constipation Stop: 10/29/19 17:06 Metoclopramide HCl (Reglan) 10 mg IV Q6H PRN PRN Reason: Nausea And Vomiting Stop: 10/29/19 17:06 Last Admin: 09/29/19 22:12 Dose: 10 mg Documented by: Metoprolol Succinate (Toprol Xl) 100 mg PO BID [facility] Stop: 10/28/19 20:59 Last Admin: 09/29/19 22:05 Dose: 100 mg Documented by: Miscellaneous (Carbohydrates For Hypoglycemia) 15 - 30 gm PO UD PRN PRN Reason: Hypoglycemia Protocol Stop: 10/28/19 17:03 Miscellaneous (Order Awaiting Action) 1 ea N/A QS [facility] Stop: 10/29/19 00:00 Last Admin: 09/29/19 22:58 Dose: Not Given Documented by: Morphine Sulfate (Morphine Sulfate) 2 mg IV Q2H PRN PRN Reason: MODERATE Pain (Scale 4,5,6) Stop: 10/12/19 17:03 Multivitamins (Multivitamin Tab) 1 tab PO QAM [facility] Stop: 10/30/19 08:59 Naloxone HCl (Narcan) 0.1 mg IV UD PRN PRN Reason: Opiate Overdose Stop: 10/28/19 17:03 Naloxone HCl (Narcan) 0.1 mg IV Q5M PRN PRN Reason: Oversedation/Resp Depression Stop: 10/29/19 17:06 Nitroglycerin (Nitrostat) 0.4 mg SL UD PRN PRN Reason: Chest Pain Stop: 10/29/19 17:06 Ondansetron HCl (Zofran) 4 mg IV Q6H PRN PRN Reason: Nausea Stop: 10/28/19 17:03 Last Admin: 09/29/19 22:12 Dose: 4 mg Documented by: Ondansetron HCl (Zofran) 4 mg IV Q6H PRN PRN Reason: Nausea And Vomiting Stop: 10/29/19 17:06 Polyethylene Glycol (Miralax Powder Packet) 17 gm PO DAILY PRN PRN Reason: Constipation Stop: 10/28/19 17:03 Rosuvastatin Calcium (Crestor) 20 mg PO QAM [facility] Stop: 10/29/19 08:59 Last Admin: 09/29/19 08:10 Dose: 20 mg Documented by: Senna/Docusate Sodium (Senokot S) 2 tab PO [facility] Stop: 10/28/19 20:59 Last Admin: 09/29/19 22:07 Dose: 2 tab Documented by: Sennosides (Senokot) 17.2 mg PO [facility] Stop: 10/29/19 20:59 Last Admin: 09/29/19 22:04 Dose: 17.2 mg Documented by: Sertraline HCl (Zoloft) 50 mg PO QAM [facility] Stop: 10/29/19 08:59 Last Admin: 09/29/19 08:10 Dose: 50 mg Documented by: Tamsulosin HCl (Flomax) 0.4 mg PO QAM PRN PRN Reason: unable to void Stop: 10/29/19 17:06 Torsemide (Demadex) 100 mg PO DAILY [facility] Stop: 10/30/19 08:59 Tramadol HCl (Ultram) 50 mg PO Q4H PRN PRN Reason: Mild Pain Stop: 10/28/19 17:03 Last Admin: 09/29/19 08:49 Dose: 50 mg Documented by: (1) Fall Encounter type: initial encounter Qualified Code(s): W19.XXXA - Unspecified fall, initial encounter (2) Closed fracture of left hip Encounter type: initial encounter Qualified Code(s): S72.002A - Fracture of unspecified part of neck of left femur, initial encounter for closed fracture (3) Anemia Anemia type: unspecified type Qualified Code(s): D64.9 - Anemia, unspecified (4) CAD (coronary artery disease) Coronary Disease-Associated Artery/Lesion type: [place] artery [place] vs. transplanted heart: [place] heart Associated angina: without angina Qualified Code(s): I25.10 - Atherosclerotic heart disease of [place] coronary artery without angina pectoris (5) DMII (diabetes mellitus, type 2) Diabetes mellitus complication status: without complication Diabetes mellitus half-way insulin use: without sugar drier use Qualified Code(s): E11.9 - Type 2 diabetes mellitus without complications
[2019-09-30] MEDS: glipiZIDE 5 MG TAB PO SCH ×2 (07:26→17:23)
[2019-09-30] MEDS: INSULIN ASPART 100 UNITS/ML 3 ML PEN SC SCH ×4 (08:50→21:12)
[2019-09-30] MEDS: METOPROLOL SUCC 50MG EXT REL TAB PO SCH ×2 (08:51→21:11)
[2019-09-30] MEDS: SERTRALINE HCL 50 MG TABLET PO SCH (08:52)
[2019-09-30] MEDS: ROSUVASTATIN CALCIUM 20 MG TAB PO SCH (08:52)
[2019-09-30] MEDS: DOCUSATE SODIUM 100 MG CAP PO SCH ×2 (08:52→21:11)
[2019-09-30] MEDS: CYANOCOBALAMIN 500 MCG TABLET (VITAMIN B-12) PO SCH (08:52)
[2019-09-30] MEDS: CLOPIDOGREL BISULFATE 75 MG TAB PO SCH (08:52)
[2019-09-30] MEDS: MULTIVITAMIN TAB PO SCH (08:52)
[2019-09-30] MEDS: FERROUS GLUCONATE 324 MG TAB PO SCH (08:53)
[2019-09-30] MEDS: ACETAMINOPHEN 500 MG TAB PO SCH ×4 (08:56→21:11)
[2019-09-30] MEDS ORDERED: TORSEMIDE 100 MG TAB PO SCH (09:00)
[2019-09-30] MEDS ORDERED: NON-FORMULARY MEDICATION (Coenzyme Q10 [Co Q-10] 10 MG) PO SCH (09:00)
[2019-09-30] MEDS ORDERED: MULTIVITAMIN TAB PO SCH (09:00)
--- NOTE | 2019-09-30 09:15 | Progress Note ---
DATE: 09/30/2019 SUBJECTIVE: An 79-year-old gentleman with multiple medical comorbidities, postop day 1 from a left cemented bipolar hip arthroplasty. Seems to be doing okay. He has some hip pain, but says it is better. No other complaints. Denies any significant chest pain or shortness of breath. OBJECTIVE: VITAL SIGNS: Temperature is 36.6. Vital signs stable. GENERAL: Shows a pleasant elderly male. He is sitting up in bed, looks pretty much at his baseline. EXTREMITIES: Examination of the left hip and leg reveals the leg to be well aligned. Dressing is clean, dry and intact. He does dorsiflex and plantarflex his foot and toes appropriately. Hip is located. He is neurologically intact. LABORATORY DATA: Hemoglobin 8.1. Hematocrit 25.1. White cell count 11.89. Electrolytes are relatively stable. Creatinine is around his recent baseline. ASSESSMENT: An 79-year-old gentleman with multiple medical comorbidities, postop day 1 from a left cemented bilateral total hip arthroplasty. He looks pretty good this morning. He looks pretty much at his baseline. Seems to be otherwise awake, alert as he was yesterday. His pain seems to be improved. He is neurologically intact. PLAN: 1. DVT prophylaxis include thigh-high TEDs, SCDs. I did put him back on his Plavix, but I think we have to consider whether to put him on Coumadin or not concerning his multiple comorbidities including fall risk, gastritis and risk for GI bleed. I would recommend just using Plavix. 2. PT/OT. He can weightbear as tolerated on left lower extremity. 3. Medical management as per the Medicine Service. 4. Pain control. I would really try and limit his narcotics. Stick to Tylenol as much as possible. 5. Disposition: He will likely need a rehab stay once medically improved and stabilized. This is likely to take several days. Any orthopedic questions can be directed to me at [phone].
--- NOTE | 2019-09-30 12:09 | Cardiology Progress Note ---
Date of Service September 30, 2019 Assessment & Plan (1) Preop cardiovascular exam: Patient admitted with mechanical fall and subsequent hip fracture. Patient has an extensive constellation of multiple medical issues and will represent a high operative risk patient. Discussed with patient and family alternatives are even higher risk and I see no point in further delay at this time. Current volume status appears compensated. Patient is hemodynamically stable. He is received transfusion to hemoglobin greater than 8. Anticoagulation has been allowed to reverse Renal function is marginal with nephrology on board. He has received diuretics posttransfusion and will expect some volume shifts with blood loss in the operating room Patient and family aware, no benefits and further delay patient tentatively plan for operative procedure this afternoon [employer] staff notified regarding device management perioperatively As above patient tolerated procedure without hemodynamic compromise but still marginally compensated Usual medications resumed Anticipate resuming warfarin in a.m. Hold torsemide until reevaluated Stop metoclopramide (2) Ischemic cardiomyopathy: (3) S/P ICD (internal cardiac defibrillator) procedure: (4) CKD (chronic kidney disease) stage 4, GFR 15-29 ml/min: (5) Anemia: Subjective Patient seen and examined, chart, telemetry reviewed. Patient somewhat groggy but eating breakfast. No acute complaints other than discomfort at surgical site. Tolerated surgery without hemodynamic compromise Physical Exam Constitutional: no acute distress Eyes: PERRL, conjunctivae normal, anicteric sclerae ENMT: external ear and nose normal, oropharynx normal Neck: trachea midline, no thyromegaly Respiratory: normal respiratory effort, lungs clear to auscultation Cardiovascular: Rate/Rhythm: + irregularly irregular Heart Sounds: normal S1, normal S2 and + murmur (Grade 1/6 systolic, no); no gallop Palpation: normal PMI Vessels: normal carotid upstroke and radial pulses present; no JVD and no carotid bruit Extremities: + edema (Trace pedal) Chest (Breasts): Chest: normal inspection of chest Gastrointestinal (Abdomen): Inspection/Auscultation: + abdomen distended (Mildly) Percussion/Palpation: abdomen soft; no hepatosplenomegaly Skin: no rashes, warm and dry Neurologic: PERRL, EOMI, accommodation nl, no face palsy, no dysarthria Psychiatric: Appears somewhat lethargic but answering questions appropriately Results & Data Vital Signs (Past 12 Hours) Vital Signs Temp Pulse Pulse Pulse Resp BP BP 11/09/19 11:33 37.6 C H 71 18 93/57 L 09/30/19 08:00 77 09/30/19 07:28 36.6 C 61 20 104/62 09/30/19 03:51 37.0 C 65 20 104/58 L Pulse Ox 09/30/19 11:33 98 09/30/19 08:00 09/30/19 07:28 99 09/30/19 03:51 99 Laboratory Results Laboratory Results - last 24 hr 09/28/19 09/29/19 09/29/19 11:58 15:49 20:06 WBC RBC Hgb Hct MCV MCH MCHC RDW Std Deviation RDW Coeff of Dung Plt Count MPV Immature Gran % (Auto) Neut % (Auto) Lymph % (Auto) [place] % (Auto) Eos % (Auto) Baso % (Auto) Immature Gran # (Auto) Neut # (Auto) Lymph # (Auto) [place] # (Auto) Eos # (Auto) Baso # (Auto) Sodium Potassium Chloride Carbon Dioxide Anion Gap BUN Creatinine Est Cr Clr Drug Dosing Est GFR ( Amer) Est GFR (Non-Af Amer) BUN/Creatinine Ratio Glucose POC Glucose 113 H 108 H Calcium Blood Type A Positive Antibody Screen NEGATIVE Crossmatch See Detail 09/30/19 09/30/19 09/30/19 05:59 05:59 07:27 WBC 11.89 H RBC 2.81 L Hgb 8.1 L Hct 25.1 L MCV 89.3 MCH 28.8 MCHC 32.3 RDW Std Deviation 53.7 H RDW Coeff of Dung 16.3 H Plt Count 105 L MPV 9.7 Immature Gran % (Auto) 0.3 Neut % (Auto) 78.3 Lymph % (Auto) 5.0 [place] % (Auto) 14.5 Eos % (Auto) 1.6 Baso % (Auto) 0.3 Immature Gran # (Auto) 0.04 H Neut # (Auto) 9.31 H Lymph # (Auto) 0.[address] [place] # (Auto) 1.72 H Eos # (Auto) 0.19 Baso # (Auto) 0.03 Sodium 140 Potassium 3.5 Chloride 109 H Carbon Dioxide 24 Anion Gap 7.0 BUN 62 H Creatinine 3.97 H Est Cr Clr Drug Dosing 15.3 Est GFR ( Amer) 15.5 Est GFR (Non-Af Amer) 13.4 BUN/Creatinine Ratio 15.6 Glucose 82 POC Glucose 75 Calcium 8.0 L Blood Type Antibody Screen Crossmatch 09/30/19 09/30/19 11:20 11:21 WBC RBC Hgb Hct MCV MCH MCHC RDW Std Deviation RDW Coeff of Dung Plt Count MPV Immature Gran % (Auto) Neut % (Auto) Lymph % (Auto) [place] % (Auto) Eos % (Auto) Baso % (Auto) Immature Gran # (Auto) Neut # (Auto) Lymph # (Auto) [place] # (Auto) Eos # (Auto) Baso # (Auto) Sodium Potassium Chloride Carbon Dioxide Anion Gap BUN Creatinine Est Cr Clr Drug Dosing Est GFR ( Amer) Est GFR (Non-Af Amer) BUN/Creatinine Ratio Glucose POC Glucose 67 L* 77 Calcium Blood Type Antibody Screen Crossmatch (1) Anemia Anemia type: unspecified type Qualified Code(s): D64.9 - Anemia, unspecified
--- NOTE | 2019-09-30 13:04 | Anesthesiology Progress Note ---
Date of Service September 30, 2019 Anesthesia Post Procedure Vital Signs Vital Signs: Temp Pulse Pulse Pulse Resp BP BP 09/30/19 11:33 37.6 C H 71 18 93/57 L 09/30/19 08:00 77 09/30/19 07:28 36.6 C 61 20 104/62 09/30/19 03:51 37.0 C 65 20 104/58 L 09/29/19 23:59 37.2 C 70 20 108/63 09/29/19 22:20 77 09/29/19 19:58 36.7 C 62 22 109/64 09/29/19 18:37 36.8 C 68 18 119/77 09/29/19 17:37 36.8 C 69 18 126/76 09/29/19 17:07 36.7 C 74 74 19 119/76 09/29/19 16:35 36.3 C L 62 12 123/65 09/29/19 16:25 72 13 99/60 L 09/29/19 16:15 86 17 122/67 09/29/19 16:05 87 19 114/83 09/29/19 15:55 78 15 125/88 09/29/19 15:47 36.2 C L 96 H 14 137/83 Pulse Ox 09/30/19 11:33 98 09/30/19 08:00 09/30/19 07:28 99 09/30/19 03:51 99 09/29/19 23:59 99 09/29/19 22:20 09/29/19 19:58 100 09/29/19 18:37 98 09/29/19 17:37 96 09/29/19 17:07 97 09/29/19 16:35 98 09/29/19 16:25 94 09/29/19 16:15 97 09/29/19 16:05 99 09/29/19 15:55 98 09/29/19 15:47 97 Pain Intensity Left Hip: Pain Intensity: 10 Notes Mental Status: alert / awake / arousable and see notes below (Pt was sleeping comfortably during visit) Patient Amnestic to Procedure: Yes Nausea / Vomiting: adequately controlled Pain: adequately controlled Airway Patency, RR, SpO2: stable & adequate BP & HR: stable & adequate Hydration State: stable & adequate Anesthetic Complications: no major complications apparent
--- NOTE | 2019-09-30 13:26 | Nephrology Progress Note ---
Date of Service September 30, 2019 Assessment & Plan (1) Acute worsening of stage 4 chronic kidney disease: advanced ckd 4 w/ chronic volume overload and very labile creatinine ranging as OP from upper 2's to mid 3's, most recently 3.8 on 09/25. creatinine 4.0 today, mild TOBIN -strict I/O -no indication currently for urgent dialysis -daily bmp -FR 2L when taking po and <2 gm Na diet (currently NPO) >takes torsemide 100 mg daily >> hold for now >had lasix 40 mg iv after pRBC, for now lasix 40 mg IV prn worsening volume or respiratory status >> would get CXR now to eval if hypotension from decompensating heart failure versus if he may need some gentle IV (250 mL bolus for example) (2) Acute on chronic anemia: Hgb 6.9 on presentation w/ chronic gastritis w/ scant heme + emesis in ER INR 4.8>1.7; pt had actually been bridging w/ lovenox in prep for AVF surgery on 10/02 > per epic, last coumadin dose was to be 09/26, then start lovenox 09/29 >had pRBC 2 units;GI considering EGD >> post transfusion hgb up to 8.9 this am, dropped to 8.1 this am -would not initiate procrit w/ fracture/ GI bleeding; again have been urging this as OP and will cont to discuss as OP (3) Closed fracture of left hip: s/p L cemented bipolar hip arthroplasty 09/29 Subjective tired but able to answer ros > denies uncontrolled pain, denies sob; he has been coughing and ? concern for aspiration; speech to evaluate. also with more consistent hypotension this afternoon - sbp in 90s and no opiates/sedatives on board. no edema. Review of Systems Review of Systems: All systems reviewed & are unremarkable except as noted in HPI & below Physical Exam Constitutional: well developed, well nourished and comfortable; no acute distress on 02nc tired but opens eyes briefly and answers questions Eyes: EOM intact bilaterally ENMT: Ears: + hearing impairment; no external ear abnormality Nose: no external nose abnormality Mouth: + dry oral mucous membranes (very dry; mouth breather) Neck: no nuchal rigidity Respiratory: normal respiratory effort and + paradoxical thoraco-abdominal movement Auscultation: + diminished lung sounds Cardiovascular: Rate/Rhythm: + irregularly irregular Heart Sounds: + murmur Vessels: + JVD Extremities: no edema Gastrointestinal (Abdomen): Inspection/Auscultation: normal bowel sounds Percussion/Palpation: abdomen soft; abdomen nontender Musculoskeletal: Extremities: strength 5/5 throughout Skin: no rashes, warm and dry + pallor Neurologic: hoffman; limited but appropriate speech Psychiatric: Orientation: oriented to person and oriented to place Affect: euthymic affect Insight: + limited insight Judgement: + limited judgement Results & Data Vital Signs (Past 12 Hours) Vital Signs Temp Pulse Pulse Pulse Resp BP BP 09/30/19 12:52 09/30/19 11:33 37.6 C H 71 18 93/57 L 09/30/19 08:00 77 09/30/19 07:28 36.6 C 61 20 104/62 09/30/19 03:51 37.0 C 65 20 104/58 L Pulse Ox 09/30/19 12:52 98 09/30/19 11:33 98 09/30/19 08:00 09/30/19 07:28 99 09/30/19 03:51 99 Laboratory Results 09/30/19 05:59 09/30/19 05:59 (1) Closed fracture of left hip Encounter type: initial encounter Qualified Code(s): S72.002A - Fracture of unspecified part of neck of left femur, initial encounter for closed fracture
[2019-09-30] MEDS: DEXTROSE 50% 50 ML SYRINGE IV PRN ×2 (16:42→20:26)
[2019-09-30 17:47] LABS: Hematocrit (blood only) 23.5 % (42-52); Hemoglobin 7.5 g/dL (14.0-18.0)
--- NOTE | 2019-09-30 18:05 | XRay Report ---
XR chest 1V portable CLINICAL HISTORY: Possible. aspiration, hypotension COMPARISON STUDY: 09/28/2019 FINDINGS: The heart remains enlarged. There is a left subclavian pacer/defibrillator. There is persis tent pulmonary vascular congestion/fluid overload. Is a bandlike opacity at the right lung base, like ly atelectatic.[ IMPRESSION: 1. Cardiomegaly and radiographic evidence of congestive failure/fluid overload 2. Right basilar opacity, likely atelectatic Electronically signed by: Keaton Cano M.D. 09/30/2019 6:03 PM
[2019-09-30] MEDS ORDERED: ALBUMIN 25% 50 ML IV STA (19:34)
[2019-09-30] MEDS ORDERED: SODIUM CHLORIDE 0.9% 250 ML IV PRN (20:33)
[2019-09-30] MEDS ORDERED: PIPERACILL/TAZOBAC CONSULT ACTIVE PRN (20:34)
--- NOTE | 2019-09-30 20:39 | Communication Note ---
Date of Service: September 30, 2019 Called to the bedside, as patient continues to be hypotensive, hypoxic, mental status still not at baseline. There was concern for aspiration, as reportedly patient vomited last night, and also noted difficulty with swallowing. H&H rechecked, hemoglobin down to 7.5. Chest x-ray obtained suggestive of fluid overload. Given the fluid overload picture, with hypotension, hesitant to give IV fluids, ordered albumin and consulted ICU. Evaluated with ICU C[employer] SUPERVISOR at the bedside, discussed further work-up, will order ABG, BNP, BMP, H&H, agreed to transfuse the patient and start antibiotics, such as IV Zosyn. Patient will be closely monitored, and if necessary overnight will be transferred to ICU. Discussed with the patient's family that they would like central line placed and patient started on pressors if necessary.
[2019-09-30] MEDS ORDERED: PIPERACILLIN/TAZOBACTAM 2.25 GM in DEXTROSE 5% 100 ML IV SCH (20:45)
[2019-09-30] MEDS ORDERED: PIPERACILLIN/TAZOBACTAM 3.375 GM in DEXTROSE 5% 100 ML IV ONE (21:00)
[2019-09-30 21:01] LABS: Hematocrit (blood only) 23.4 % (42-52); Hemoglobin 7.5 g/dL (14.0-18.0)
[2019-09-30 21:05] LABS: HCO3 ABG 21 mmol/L (19-24); PCO2 ABG 37 mmHg (35-46); PO2 ABG 80 mm/Hg (80-95); pH ABG 7.37 (7.35-7.45)
[2019-09-30 21:06] LABS: Allen Test Pos (Pos)
[2019-09-30] MEDS: DOCUSATE SODIUM/SENNA 50/8.6MG TAB PO SCH (21:11)
[2019-09-30] MEDS: SENNA 8.6 MG TAB PO SCH (21:11)
[2019-09-30 21:25] LABS: BUN Creatinine Ratio 16.3 (10-20); Calcium 8.1 mg/dl (8.5-10.1); Creatinine Clr Calc Pharmacy 13.5 ml/min; Est GFR (African American) 13.3; Est GFR (Non-African American) 11.5; Potassium 3.4 mmol/L (3.5-5.1)
[2019-10-01] MEDS: DEXTROSE 50% 50 ML SYRINGE IV PRN (03:09)
[2019-10-01] MEDS: PANTOprazole 40 MG in DEXTROSE 5% 100 ML IV SCH ×5 (03:10→22:02)
[2019-10-01] MEDS ORDERED: POTASSIUM CHLORIDE 20 MEQ TABCR PO STA (03:47)
[2019-10-01] MEDS: POTASSIUM CHLORIDE / WTR 10 MEQ/100 ML PLCT IV SCH ×3 (05:31→07:35)
[2019-10-01] MEDS: PIPERACILLIN/TAZOBACTAM 3.375 GM in DEXTROSE 5% 100 ML IV SCH ×2 (05:31→17:02)
[2019-10-01 06:16] LABS: Hematocrit (blood only) 26.1 % (42-52); Hemoglobin 8.3 g/dL (14.0-18.0); Mean Corpuscular Hemoglobin 28.2 pg (25-34); Mean Corpuscular Hgb Conc 31.8 g/dL (32-36); Mean Corpuscular Volume 88.8 fL (80-100); Mean Platelet Volume 10.5 fL (7.4-10.4); Platelet Count 111 K/uL (130-400); RDW Coefficient of Variation 15.8 % (11.5-14.5); RDW Standard Deviation 51.1 fL (36.4-46.3); Red Blood Count 2.94 M/uL (4.7-6.1); White Blood Count 10.99 K/uL (4.8-10.8)
[2019-10-01 06:55] LABS: BUN Creatinine Ratio 14.9 (10-20); Calcium 8.3 mg/dl (8.5-10.1); Creatinine Clr Calc Pharmacy 12.6 ml/min; Est GFR (African American) 12.3; Est GFR (Non-African American) 10.6; Potassium 3.6 mmol/L (3.5-5.1)
--- NOTE | 2019-10-01 07:13 | Hospitalist Progress Note ---
Date of Service October 01, 2019 Assessment & Plan (1) Fall: (2) Closed fracture of left hip: Mr. Cottrell is an 79-year-old male who has significant PMH of CAD with history of stent 2012, chronic combined systolic and diastolic CHF, chronic atrial fibrillation anticoagulated on warfarin, history of VTACH s/p AICD, history of CVA, HTN, HLD, CKD stage IV, T2DM, history of right clear-cell kidney CA s/p ablation, chronic gastritis who presents to [facility] after sustaining mechanical fall at home prior to arrival. In ED patient did have left hip x-ray which revealed subcapital left hip fracture. Hemoglobin and hematocrit decreased from baseline at 6.9 and 21.8, elevated INR 4.8, A/C CKD-4 BUN/creatinine 58/3.79 Chest x-ray revealed pulmonary vascular congestion and probable trace pleural effusions. He remained hemodynamically stable while in ED. He was typed and crossed and transfused 1 unit PRBC. Emesis in ED tested Heme positive Admitted to PCU to optimize co morbidities including acute on chronic anemia, acute on chronic CKD stage IV, chronic gastritis with hemorrhage, supratherapeutic INR on warfarin Orthopedics Dr. Torres, consulted pre op antibiotics with cefazolin - pt has GI side effects to oral ceftin but no anaphylaxis reported per patient and family Patient was started on Zosyn last night, for possible aspiration pneumonia, patient persistently hypotensive and now requiring pressor support with dobutamine peripherally Acetaminophen 650 every 8 -limited 2 g given history of cirrhosis Thorough discussion between multiple subspecialties, including cardiology, nephrology, GI, given patient's significant co-morbidities, however agreed that it is still in the best patient's interest to proceed with the surgery. Now pt s/p Left cemented bipolar hip arthroplasty w/ Dr. Torres (09/29/2019) Patient tolerated procedure well, examined postop, vital signs good within goals, family updated at the bedside Yesterday patient was hypotensive in the evening, discussed with ICU close monitoring overnight and possible need for upgrade to the ICU. Received 1 unit of blood, and was started on Zosyn. patient did well overnight, and did not require upgrade to the ICU however today continues to be hypotensive and after discussion with his calculus teacher and machine joint cutter, decided to start him on dobutamine. (3) Anemia: Likely combination of anemia of chronic disease due to CKD stage IV, and blood loss anemia due to known gastritis Nephrology consulted H&H 6.9 and 21.8 on admission Received multiple pRBCs, with IV lasix Received 1 unit of PRBCs last night (09/30) Current Hgb 8.3 Continue IV PPI Goal Hgb >8 Baseline hemoglobin around 8 (4) Chronic gastritis: Recent EGD last admission 07/26 d/t anemia EGD revealed chronic gastritis with hemorrhage - recommended PPI BID - pt has been complaint with this Patient had episode of emesis in ED which was heme positive scant amount per provider Patient also with scant blood noted in right nasal cavity - ? If heme positive emesis was secondary to this vs findings of chronic gastritis Consult gastroenterology-appreciate their input, GI recommended EGD, however anesthesia would be presenting higher risk for the patient, therefore after discussion with multiple subspecialties, decided to proceed with the surgery, pt will follow up with a GI service afterwards. GI service did provide their assessment, given patient's cirrhosis patient has high risk of mortality postop (17% mortality risk in the first 7 days after surgery, 58 risk mortality risk is 30 days), see GI note for more details Continue IV PPI (5) Acute worsening of stage 4 chronic kidney disease: TOBIN on CKD baseline cr 2.8-3.0 bun/cr 58/3.79,on admission likely worsened in setting of hypovolemia Per family patient was to undergo AV fistula next week Consult nephrology Dr. Martin due to worsened anemia along with assistance in volume status management given advanced CKD (6) Chronic atrial fibrillation: Currently rate controlled on metoprolol succinate 100 mg twice daily Supratherapeutic INR 4.8 IV vitamin K 10 mg given in ED Repeat PT/INR at 7 PM Hold Coumadin for now consulted cardiology for preop clearance given hx of chronic afib, hx of cva, CAD, S-CHF Dr. Alexander evaluated patient in the morning, preop, and cooperated with clinical discussion about proceeding with surgery despite patient's multiple risk factors and comorbidities. See more details in cardiology note. Cardiology continues to follow, appreciate their input, discussed starting pressor support, patient was started on dobutamine peripherally (7) Chronic systolic heart failure: Secondary to ischemic cardiomyopathy On outpatient regimen of torsemide 100 mg daily, metoprolol Continue metoprolol, hold torsemide for now -will continue to reevaluate volume status Monitor daily weight Strict I's and O's Heart healthy, low-sodium diet echocardiogram (8) CAD (coronary artery disease): No current chest pain or shortness of breath History of stent in 2011 As outpatient was on Plavix, Coumadin, statin, metoprolol Hold Coumadin in setting of supratherapeutic INR and anemia cont. Plavix Continue statin and metoprolol echocardiogram ordered (9) HTN (hypertension): Blood pressure on lower side yesterday and today Likely secondary to anemia, also concern for aspiration, antibiotics started, albumin and PRBCs ordered Discussed with ICU, and family members yesterday evening (08/30), okay to proceed with pressors if needed The patient continues to be hypotensive today (08/31/2019), discussed with nephrology and cardiology to start pressure support with dobutamine prev. on metoprolol Hold torsemide for now, monitor volume status closely, can use IV Lasix prn (10) DMII (diabetes mellitus, type 2): Last A1c 5.8 On oral glipizide as outpatient Hold glipizide, placed on NovoLog per protocol (11) S/P ICD (internal cardiac defibrillator) procedure: hx of Vtach AICD in place (12) DVT prophylaxis: SCD/TEDS s/p IV Vit K x 10mg due to supratherapeutic INR 4.8 Hold warfarin due to likely procedure Disposition: PCU /Tele, case management consulted Follow-up: PCP Dr. Thomas upon discharge Subjective Patient is lying in bed, sleepy, tired and ill-appearing, however easily arousable and able to answer simple questions appropriately. Last night discussed close monitoring with the ICU, and possible line placement for pressors. Fortunately patient did not require upgrade to the ICU overnight. However his blood pressures been on the lower side, especially after trying to diurese him more, therefore discussed with his calculus teacher Dr. Olivares and his machine joint cutter Dr. Alexander to start dobutamine peripherally. Family was informed at the bedside. Review of Systems Review of Systems: Unobtainable due to reduced consciousness Patient denies any chest pain, shortness of breath, abdominal pain however he is quite somnolent at this time. Physical Exam Physical Exam: Constitutional: Elderly male laying in bed, + ill appearing, tired appearing, somnolent but easily arousable Eyes: PERRL, EOMI, conjunctivae normal, anicteric sclerae ENMT: external ear and nose normal, oropharynx normal Neck: no JVD, trachea midline, no thyromegaly Respiratory: normal respiratory effort, lungs clear to auscultation, no wheezing, rhonchi, crackles noted Cardiovascular: Rate/Rhythm: + irregularly irregular, + soft systolic murmur at LSB, no JVD, trace pedal edema bilaterally Chest (Breasts): Chest: normal inspection of chest Gastrointestinal (Abdomen): Inspection/Auscultation: + abdomen mildly distended but no fluid wave appreciated, soft, nontender, no guarding Skin: no rashes, warm and dry Neuro/Psych: Alert and oriented x3, speech fluent, PERRL, EOMI, accommodation nl, no face palsy, no dysarthria Results & Data Vital Signs (Past 12 Hours) Vital Signs Temp Pulse Pulse Resp BP BP BP 10/01/19 03:40 36.7 C 76 20 95/58 L 10/01/19 02:00 36.7 C 75 20 97/59 L 10/01/19 01:31 37 C 72 20 93/54 L 10/01/19 00:31 37 C 70 20 95/57 L 09/30/19 23:31 37.1 C 75 20 99/55 L 09/30/19 23:01 36.8 C 78 20 87/45 L 09/30/19 22:46 36.8 C 74 20 104/63 09/30/19 22:25 36.8 C 74 20 85/45 L 09/30/19 22:20 70 09/30/19 19:24 36.5 C 62 18 89/45 L 88/45 L Pulse Ox 10/01/19 03:40 97 10/01/19 02:00 100 10/01/19 01:31 100 10/01/19 00:31 100 09/30/19 23:31 100 09/30/19 23:01 100 09/30/19 22:46 100 09/30/19 22:25 100 09/30/19 22:20 09/30/19 19:24 96 Laboratory Results 10/01/19 10/01/19 10/01/19 Range/Units 05:50 05:50 03:30 WBC 10.99 H (4.8-10.8) K/uL RBC 2.94 L (4.7-6.1) M/uL Hgb 8.3 L (14.0-18.0) g/dL Hct 26.1 L (42-52) % MCV 88.8 (80-100) fL MCH 28.2 (25-34) pg MCHC 31.8 L (32-36) g/dL RDW Std Deviation 51.1 H (36.4-46.3) fL RDW Coeff of Dung 15.8 H (11.5-14.5) % Plt Count 111 L (130-400) K/uL MPV 10.5 H (7.4-10.4) fL ABG pH (7.35-7.45) ABG pCO2 (35-46) mmHg ABG pO2 (80-95) mm/Hg ABG HCO3 (19-24) mmol/L ABG O2 Saturation (90-95) % ABG Base Excess (-9-1.8) mEq/L John Test (Pos) Barometric Pressure mm/Hg Oxygen Given Sodium 137 (136-145) mmol/L Potassium 3.6 (3.5-5.1) mmol/L Chloride 106 (98-107) mmol/L Carbon Dioxide 21 (21-32) mmol/L Anion Gap 10.0 (3-11) BUN 73 H (7-18) mg/dl Creatinine 4.82 H* D (0.6-1.4) mg/dl Est Cr Clr Drug Dosing 12.6 ml/min Est GFR ( Amer) 12.3 Est GFR (Non-Af Amer) 10.6 BUN/Creatinine Ratio 14.9 (10-20) Glucose 78 (70-99) mg/dl POC Glucose 118 H (70-99) Calcium 8.3 L (8.5-10.1) mg/dl Magnesium (1.8-2.4) mg/dl NT-Pro-B Natriuret Pep (0-1800) pg/ml Blood Type Antibody Screen Crossmatch 10/01/19 10/01/19 09/30/19 Range/Units 03:05 03:04 20:53 WBC (4.8-10.8) K/uL RBC (4.7-6.1) M/uL Hgb (14.0-18.0) g/dL Hct (42-52) % MCV (80-100) fL MCH (25-34) pg MCHC (32-36) g/dL RDW Std Deviation (36.4-46.3) fL RDW Coeff of Dung (11.5-14.5) % Plt Count (130-400) K/uL MPV (7.4-10.4) fL ABG pH 7.37 (7.35-7.45) ABG pCO2 37 (35-46) mmHg ABG pO2 80 (80-95) mm/Hg ABG HCO3 21 (19-24) mmol/L ABG O2 Saturation 95.0 (90-95) % ABG Base Excess -4.0 (-9-1.8) mEq/L John Test Pos (Pos) Barometric Pressure 734.1 mm/Hg Oxygen Given 1L O2 Sodium (136-145) mmol/L Potassium (3.5-5.1) mmol/L Chloride (98-107) mmol/L Carbon Dioxide (21-32) mmol/L Anion Gap (3-11) BUN (7-18) mg/dl Creatinine (0.6-1.4) mg/dl Est Cr Clr Drug Dosing ml/min Est GFR ( Amer) Est GFR (Non-Af Amer) BUN/Creatinine Ratio (10-20) Glucose (70-99) mg/dl POC Glucose 67 L* 66 L* (70-99) Calcium (8.5-10.1) mg/dl Magnesium (1.8-2.4) mg/dl NT-Pro-B Natriuret Pep (0-1800) pg/ml Blood Type Antibody Screen Crossmatch 09/30/19 09/30/19 09/30/19 Range/Units 20:53 20:53 20:47 WBC (4.8-10.8) K/uL RBC (4.7-6.1) M/uL Hgb 7.5 L (14.0-18.0) g/dL Hct 23.4 L (42-52) % MCV (80-100) fL MCH (25-34) pg MCHC (32-36) g/dL RDW Std Deviation (36.4-46.3) fL RDW Coeff of Dung (11.5-14.5) % Plt Count (130-400) K/uL MPV (7.4-10.4) fL ABG pH (7.35-7.45) ABG pCO2 (35-46) mmHg ABG pO2 (80-95) mm/Hg ABG HCO3 (19-24) mmol/L ABG O2 Saturation (90-95) % ABG Base Excess (-9-1.8) mEq/L John Test (Pos) Barometric Pressure mm/Hg Oxygen Given Sodium 139 (136-145) mmol/L Potassium 3.4 L (3.5-5.1) mmol/L Chloride 109 H (98-107) mmol/L Carbon Dioxide 21 (21-32) mmol/L Anion Gap 9.0 (3-11) BUN 73 H (7-18) mg/dl Creatinine 4.49 H D (0.6-1.4) mg/dl Est Cr Clr Drug Dosing 13.5 ml/min Est GFR ( Amer) 13.3 Est GFR (Non-Af Amer) 11.5 BUN/Creatinine Ratio 16.3 (10-20) Glucose 100 H (70-99) mg/dl POC Glucose 111 H (70-99) Calcium 8.1 L (8.5-10.1) mg/dl Magnesium 2.0 (1.8-2.4) mg/dl NT-Pro-B Natriuret Pep 03614 H (0-1800) pg/ml Blood Type Antibody Screen Crossmatch 09/30/19 09/30/19 09/30/19 Range/Units 20:20 20:19 17:30 WBC (4.8-10.8) K/uL RBC (4.7-6.1) M/uL Hgb 7.5 L (14.0-18.0) g/dL Hct 23.5 L (42-52) % MCV (80-100) fL MCH (25-34) pg MCHC (32-36) g/dL RDW Std Deviation (36.4-46.3) fL RDW Coeff of Dung (11.5-14.5) % Plt Count (130-400) K/uL MPV (7.4-10.4) fL ABG pH (7.35-7.45) ABG pCO2 (35-46) mmHg ABG pO2 (80-95) mm/Hg ABG HCO3 (19-24) mmol/L ABG O2 Saturation (90-95) % ABG Base Excess (-9-1.8) mEq/L John Test (Pos) Barometric Pressure mm/Hg Oxygen Given Sodium (136-145) mmol/L Potassium (3.5-5.1) mmol/L Chloride (98-107) mmol/L Carbon Dioxide (21-32) mmol/L Anion Gap (3-11) BUN (7-18) mg/dl Creatinine (0.6-1.4) mg/dl Est Cr Clr Drug Dosing ml/min Est GFR ( Amer) Est GFR (Non-Af Amer) BUN/Creatinine Ratio (10-20) Glucose (70-99) mg/dl POC Glucose 62 L* 62 L* (70-99) Calcium (8.5-10.1) mg/dl Magnesium (1.8-2.4) mg/dl NT-Pro-B Natriuret Pep (0-1800) pg/ml Blood Type Antibody Screen Crossmatch 09/30/19 09/30/19 09/30/19 Range/Units 16:58 16:30 16:30 WBC (4.8-10.8) K/uL RBC (4.7-6.1) M/uL Hgb (14.0-18.0) g/dL Hct (42-52) % MCV (80-100) fL MCH (25-34) pg MCHC (32-36) g/dL RDW Std Deviation (36.4-46.3) fL RDW Coeff of Dung (11.5-14.5) % Plt Count (130-400) K/uL MPV (7.4-10.4) fL ABG pH (7.35-7.45) ABG pCO2 (35-46) mmHg ABG pO2 (80-95) mm/Hg ABG HCO3 (19-24) mmol/L ABG O2 Saturation (90-95) % ABG Base Excess (-9-1.8) mEq/L John Test (Pos) Barometric Pressure mm/Hg Oxygen Given Sodium (136-145) mmol/L Potassium (3.5-5.1) mmol/L Chloride (98-107) mmol/L Carbon Dioxide (21-32) mmol/L Anion Gap (3-11) BUN (7-18) mg/dl Creatinine (0.6-1.4) mg/dl Est Cr Clr Drug Dosing ml/min Est GFR ( Amer) Est GFR (Non-Af Amer) BUN/Creatinine Ratio (10-20) Glucose (70-99) mg/dl POC Glucose 114 H 65 L* 67 L* (70-99) Calcium (8.5-10.1) mg/dl Magnesium (1.8-2.4) mg/dl NT-Pro-B Natriuret Pep (0-1800) pg/ml Blood Type Antibody Screen Crossmatch 09/30/19 09/30/19 09/30/19 Range/Units 11:21 11:20 07:27 WBC (4.8-10.8) K/uL RBC (4.7-6.1) M/uL Hgb (14.0-18.0) g/dL Hct (42-52) % MCV (80-100) fL MCH (25-34) pg MCHC (32-36) g/dL RDW Std Deviation (36.4-46.3) fL RDW Coeff of Dung (11.5-14.5) % Plt Count (130-400) K/uL MPV (7.4-10.4) fL ABG pH (7.35-7.45) ABG pCO2 (35-46) mmHg ABG pO2 (80-95) mm/Hg ABG HCO3 (19-24) mmol/L ABG O2 Saturation (90-95) % ABG Base Excess (-9-1.8) mEq/L John Test (Pos) Barometric Pressure mm/Hg Oxygen Given Sodium (136-145) mmol/L Potassium (3.5-5.1) mmol/L Chloride (98-107) mmol/L Carbon Dioxide (21-32) mmol/L Anion Gap (3-11) BUN (7-18) mg/dl Creatinine (0.6-1.4) mg/dl Est Cr Clr Drug Dosing ml/min Est GFR ( Amer) Est GFR (Non-Af Amer) BUN/Creatinine Ratio (10-20) Glucose (70-99) mg/dl POC Glucose 77 67 L* 75 (70-99) Calcium (8.5-10.1) mg/dl Magnesium (1.8-2.4) mg/dl NT-Pro-B Natriuret Pep (0-1800) pg/ml Blood Type Antibody Screen Crossmatch 09/28/19 Range/Units 11:58 WBC (4.8-10.8) K/uL RBC (4.7-6.1) M/uL Hgb (14.0-18.0) g/dL Hct (42-52) % MCV (80-100) fL MCH (25-34) pg MCHC (32-36) g/dL RDW Std Deviation (36.4-46.3) fL RDW Coeff of Dung (11.5-14.5) % Plt Count (130-400) K/uL MPV (7.4-10.4) fL ABG pH (7.35-7.45) ABG pCO2 (35-46) mmHg ABG pO2 (80-95) mm/Hg ABG HCO3 (19-24) mmol/L ABG O2 Saturation (90-95) % ABG Base Excess (-9-1.8) mEq/L John Test (Pos) Barometric Pressure mm/Hg Oxygen Given Sodium (136-145) mmol/L Potassium (3.5-5.1) mmol/L Chloride (98-107) mmol/L Carbon Dioxide (21-32) mmol/L Anion Gap (3-11) BUN (7-18) mg/dl Creatinine (0.6-1.4) mg/dl Est Cr Clr Drug Dosing ml/min Est GFR ( Amer) Est GFR (Non-Af Amer) BUN/Creatinine Ratio (10-20) Glucose (70-99) mg/dl POC Glucose (70-99) Calcium (8.5-10.1) mg/dl Magnesium (1.8-2.4) mg/dl NT-Pro-B Natriuret Pep (0-1800) pg/ml Blood Type A Positive Antibody Screen NEGATIVE Crossmatch See Detail Medications Administered Current Inpatient Medications Acetaminophen (Tylenol) 500 mg PO QID [facility] Stop: 10/28/19 17:59 Last Admin: 09/30/19 21:11 Dose: Not Given Documented by: Bisacodyl (Dulcolax) 10 mg PA DAILY PRN PRN Reason: Constipation Stop: 10/28/19 17:03 Bisacodyl (Dulcolax) 10 mg PA DAILY PRN PRN Reason: Constipation Stop: 10/29/19 17:06 [facility]) [facility] [place] Stop: 10/30/19 08:59 Last Admin: 09/30/19 08:52 Dose: 75 mg Documented by: Cyanocobalamin (Vitamin B-12) 1,000 [facility]cg [facility] [place] Stop: 10/30/19 08:59 Last Admin: 09/30/19 08:52 Dose: 1,000 mcg Documented by: Dextrose (Dextrose 50%) 25 - 50 ml IV UD PRN; Protocol PRN Reason: Hypoglycemia Protocol Stop: 10/28/19 17:03 Last Admin: 10/01/19 03:09 Dose: 25 ml Documented by: Docusate Sodium (Colace) 100 mg PO BID [facility] Stop: 10/29/19 20:59 Last Admin: 09/30/19 21:11 Dose: Not Given Documented by: Ferrous Gluconate (Ferrous Gluconate) 324 [facility] [place] Stop: 10/29/19 08:59 Last Admin: 09/30/19 08:53 Dose: 324 mg Documented by: Glucagon (Glucagen) 1 mg SQ UD PRN; Protocol PRN Reason: Hypoglycemia Protocol Stop: 10/28/19 17:03 Glucose (Glucose 40%) 15 - 30 gm PO UD PRN; Protocol PRN Reason: Hypoglycemia Protocol Stop: 10/28/19 17:03 Glucose (Dex4 Glucose) 4 - 8 tabs PO UD PRN; Protocol PRN Reason: Hypoglycemia Protocol Stop: 10/28/19 17:03 Guaifenesin (Mucinex) 1,200 mg PO Q12H PRN PRN Reason: Cough Stop: 10/29/19 18:47 Sodium Chloride (Nss) 250 mls @ 15 mls/hr IV .[id number] PRN PRN Reason: For Transfusion Stop: 10/28/19 12:28 Pantoprazole Sodium 40 mg/ (Dextrose) 100 mls @ 20 mls/hr IV Q5H [facility] Stop: 10/28/19 12:59 Last Admin: 10/01/19 03:10 Dose: 20 mls/hr Documented by: Sodium Chloride (Nss) 250 mls @ 15 mls/hr IV .[id number] PRN PRN Reason: For Transfusion Stop: 10/30/19 20:32 Piperacillin Sod/Tazobactam (Sod 3.375 gm/ Dextrose) 115 mls @ 28.75 mls/hr IV Q12H [facility]; Protocol Stop: 10/03/19 04:59 Last Admin: 10/01/19 05:31 Dose: 28.8 mls/hr Documented by: Potassium Chloride (K Mehrdad / Wtr) 10 meq in 100 mls @ 100 mls/hr IV Q1H [facility] Stop: 10/01/19 08:29 Last Admin: 10/01/19 06:16 Dose: 100 mls/hr Documented by: Insulin Aspart (Novolog Flexpen) 0 units SC ACHS [facility] Stop: 10/28/19 17:59 Last Admin: 09/30/19 21:12 Dose: Not Given Documented by: Magnesium Hydroxide (Milk Of Magnesia) 30 ml PO Q6H PRN PRN Reason: Constipation Stop: 10/29/19 17:06 Metoprolol Succinate (Toprol Xl) 100 mg PO BID [facility] Stop: 10/28/19 20:59 Last Admin: 09/30/19 21:11 Dose: Not Given Documented by: Miscellaneous (Carbohydrates For Hypoglycemia) 15 - 30 gm PO UD PRN PRN Reason: Hypoglycemia Protocol Stop: 10/28/19 17:03 Miscellaneous Information (Consult) 1 ea N/A UD PRN PRN Reason: Consult Stop: 10/30/19 20:33 Morphine Sulfate (Morphine Sulfate) 2 mg IV Q2H PRN PRN Reason: MODERATE Pain (Scale 4,5,6) Stop: 10/12/19 17:03 Multivitamins (Multivitamin Tab) 1 tab PO QAM [facility] Stop: 10/30/19 08:59 Last Admin: 09/30/19 08:52 Dose: 1 tab Documented by: Naloxone HCl (Narcan) 0.1 mg IV UD PRN PRN Reason: Opiate Overdose Stop: 10/28/19 17:03 Naloxone HCl (Narcan) 0.1 mg IV Q5M PRN PRN Reason: Oversedation/Resp Depression Stop: 10/29/19 17:06 Nitroglycerin (Nitrostat) 0.4 mg SL UD PRN PRN Reason: Chest Pain Stop: 10/29/19 17:06 Testosteroine Gel~ Non-Formulary Patient's Own Med 1 ea TOP DAILY [facility] Stop: 10/31/19 08:59 Ondansetron HCl (Zofran) 4 mg IV Q6H PRN PRN Reason: Nausea Stop: 10/28/19 17:03 Last Admin: 09/29/19 22:12 Dose: 4 mg Documented by: Ondansetron HCl (Zofran) 4 mg IV Q6H PRN PRN Reason: Nausea And Vomiting Stop: 10/29/19 17:06 Polyethylene Glycol (Miralax Powder Packet) 17 gm PO DAILY PRN PRN Reason: Constipation Stop: 10/28/19 17:03 Rosuvastatin Calcium (Crestor) 20 mg PO QAM [facility] Stop: 10/29/19 08:59 Last Admin: 09/30/19 08:52 Dose: 20 mg Documented by: Senna/Docusate Sodium (Senokot S) 2 tab PO [facility] Stop: 10/28/19 20:59 Last Admin: 09/30/19 21:11 Dose: Not Given Documented by: Sennosides (Senokot) 17.2 mg PO HS [facility] Stop: 10/29/19 20:59 Last Admin: 09/30/19 21:11 Dose: Not Given Documented by: Sertraline HCl (Zoloft) 50 mg PO QAM [facility] Stop: 10/29/19 08:59 Last Admin: 09/30/19 08:52 Dose: 50 mg Documented by: Tamsulosin HCl (Flomax) 0.4 mg PO QAM PRN PRN Reason: unable to void Stop: 10/29/19 17:06 Last Admin: 09/30/19 08:52 Dose: 0.4 mg Documented by: Torsemide (Demadex) 100 mg PO DAILY [facility] Stop: 10/30/19 08:59 Last Admin: 09/30/19 08:52 Dose: 100 mg Documented by: Tramadol HCl (Ultram) 50 mg PO Q4H PRN PRN Reason: Mild Pain Stop: 10/28/19 17:03 Last Admin: 09/29/19 08:49 Dose: 50 mg Documented by: (1) DMII (diabetes mellitus, type 2) Diabetes mellitus complication status: without complication Diabetes mellitus fpc insulin use: without fpc use Qualified Code(s): E11.9 - Type 2 diabetes mellitus without complications (2) CAD (coronary artery disease) Associated angina: without angina Coronary Disease-Associated Artery/Lesion type: [place] artery [place] vs. transplanted heart: [place] heart Qualified Code(s): I25.10 - Atherosclerotic heart disease of [place] coronary artery without angina pectoris (3) Anemia Anemia type: unspecified type Qualified Code(s): D64.9 - Anemia, unspecified (4) Fall Encounter type: initial encounter Qualified Code(s): W19.XXXA - Unspecified fall, initial encounter (5) Closed fracture of left hip Encounter type: initial encounter Qualified Code(s): S72.002A - Fracture of unspecified part of neck of left femur, initial encounter for closed fracture
[2019-10-01] MEDS ORDERED: FUROSEMIDE 20 MG in SYRINGE 0 ML IV ONE (07:45)
[2019-10-01] MEDS: CLOPIDOGREL BISULFATE 75 MG TAB PO SCH (07:50)
[2019-10-01] MEDS: MULTIVITAMIN TAB PO SCH (07:50)
[2019-10-01] MEDS: TESTOSTERONE TOP SCH (07:50)
[2019-10-01] MEDS: FERROUS GLUCONATE 324 MG TAB PO SCH (07:50)
[2019-10-01] MEDS: ROSUVASTATIN CALCIUM 20 MG TAB PO SCH (07:50)
[2019-10-01] MEDS: DOCUSATE SODIUM 100 MG CAP PO SCH ×2 (07:50→20:42)
[2019-10-01] MEDS: METOPROLOL SUCC 50MG EXT REL TAB PO SCH ×2 (07:51→20:42)
[2019-10-01] MEDS: ACETAMINOPHEN 500 MG TAB PO SCH (07:51)
[2019-10-01] MEDS: SERTRALINE HCL 50 MG TABLET PO SCH (07:51)
[2019-10-01] MEDS: CYANOCOBALAMIN 500 MCG TABLET (VITAMIN B-12) PO SCH (07:51)
[2019-10-01] MEDS: INSULIN ASPART 100 UNITS/ML 3 ML PEN SC SCH ×4 (07:56→20:41)
[2019-10-01] MEDS ORDERED: ACETAMINOPHEN 1,000 MG/100 ML VIAL IV PRN (08:22)
--- NOTE | 2019-10-01 08:40 | Progress Note ---
DATE: 10/01/2019 SUBJECTIVE: An 79-year-old gentleman postop day 2 from a left cemented bipolar hip arthroplasty for fracture. Orthopedically seems pretty stable. Did complain some hip pain. Denies any significant chest pain or shortness of breath. He has been hypotensive and we are trying to diurese him. OBJECTIVE: VITAL SIGNS: Temperature 36.5. Vital signs stable. A little hypotensive, blood pressure 97/63. EXTREMITIES: Left hip and leg reveals the leg to be well aligned. Dressing is clean, dry and intact. No signs of drainage. Thigh is soft and supple. He is neurologically stable. LABORATORY DATA: Hemoglobin this morning is 8.3, hematocrit 26.1. Creatinine is increased at 4.82. ASSESSMENT: An 79-year-old gentleman with multiple medical comorbidities postop day 2 from a left cemented bipolar hip arthroplasty for fracture. Hip seems to be doing fine. He has got multiple other medical issues. Creatinine is bumped up some. His hemoglobin is pretty stable right now, but he did recently get some blood. PLAN: 1. DVT prophylaxis include thigh-high TEDs and SCDs. Would recommend just Plavix. I think placing him on Coumadin puts him at high risk of bleeding ____ volume status is resolved. 2. PT/OT. He can weightbear as tolerated in left lower extremity. 3. Medical management. This is certainly is most difficult issue as he has got multiple medical comorbidities. 4. Pain management. Seems to be doing pretty well. I have been asked by the nursing staff to convert to IV Tylenol and I will make that switch. We are going to try and keep him to 2 g of Tylenol. Certainly Medicine can adjust this as needed. 5. Disposition. He has got multiple medical comorbidities which need to be stabilized. Orthopedically, he is okay for discharge anytime medically stable. Any orthopedic questions can be directed to me at [phone].
[2019-10-01] MEDS: ACETAMINOPHEN 1,000 MG/100 ML VIAL IV SCH ×2 (08:46→20:43)
[2019-10-01] MEDS ORDERED: ACETAMINOPHEN 1000 MG/100 ML IV IV SCH (09:00)
--- NOTE | 2019-10-01 09:19 | Nephrology Progress Note ---
Date of Service October 01, 2019 Assessment & Plan (1) Acute worsening of stage 4 chronic kidney disease: advanced ckd 4 w/ chronic volume overload and very labile creatinine ranging as OP from upper 2's to mid 3's, most recently 3.8 on 09/25. creatinine w/ big jump today to 4.0 today to 4.8 w/ new oliguria -strict I/O -no indication currently for urgent dialysis but he may need it next 48 hrs if renal function does not improve -daily bmp -FR 2L when taking po and <2 gm Na diet (currently NPO) >torsemide on hold >had lasix 20 mg IV 0800; will start lasix 40 mg IV tid, hold for SBP <85 ordered, first dose 10 AM, then 1400, 2200, etc -already had 40 mEq K iv today ; repeat bmp later today 1700 (2) Acute on chronic anemia: Hgb 6.9 on presentation w/ chronic gastritis w/ scant heme + emesis in ER INR 4.8>1.7; pt had actually been bridging w/ lovenox in prep for AVF surgery on 10/02 > per [employer], last coumadin dose was to be 09/26, then start lovenox 09/29 >had pRBC 2 units day of OR; had another unit 09/30. GI considering EGD >> post transfusion hgb up to 8.3 this am -would not initiate procrit w/ fracture/ GI bleeding; again have been urging this as OP and will cont to discuss as OP (3) Closed fracture of left hip: s/p L cemented bipolar hip arthroplasty 09/29 Subjective denies pain or sob; started on diet today after speech eval; family at bedside and says he's restless; neither pt nor family can qualify. no n. exhausted, doses a lot. UOP dropping off significantly Review of Systems Review of Systems: All systems reviewed & are unremarkable except as noted in HPI & below Physical Exam Constitutional: well developed, well nourished and comfortable; no acute distress on 02nc, frail appearing, opens eyes part way and answers appropriately w/ very dry mouth/husky speech Eyes: EOM intact bilaterally ENMT: Ears: + hearing impairment; no external ear abnormality Nose: no external nose abnormality Mouth: + dry oral mucous membranes (very dry; mouth breather) Neck: no nuchal rigidity Respiratory: normal respiratory effort and + paradoxical thoraco-abdominal movement Auscultation: + diminished lung sounds Cardiovascular: Rate/Rhythm: + irregularly irregular Heart Sounds: + murmur Vessels: + JVD Extremities: no edema Gastrointestinal (Abdomen): Inspection/Auscultation: normal bowel sounds Percussion/Palpation: abdomen soft; abdomen nontender Musculoskeletal: Extremities: strength 5/5 throughout Skin: no rashes, warm and dry + pallor L hip incision not evaluated Psychiatric: Orientation: oriented to person and oriented to place Affect: euthymic affect Insight: + limited insight Judgement: + limited judgement Results & Data Vital Signs (Past 12 Hours) Vital Signs Temp Pulse Pulse Pulse Resp BP BP 10/01/19 07:37 36.5 C 72 20 10/01/19 03:40 36.7 C 76 20 95/58 L 10/01/19 02:00 36.7 C 75 20 97/59 L 10/01/19 01:31 37 C 72 20 93/54 L 10/01/19 00:31 37 C 70 20 95/57 L 09/30/19 23:31 37.1 C 75 20 99/55 L 09/30/19 23:01 36.8 C 78 20 87/45 L 09/30/19 22:46 36.8 C 74 20 104/63 09/30/19 22:25 36.8 C 74 20 85/45 L 09/30/19 22:20 70 BP Pulse Ox 10/01/19 07:37 97/63 L 93 10/01/19 03:40 97 10/01/19 02:00 100 10/01/19 01:31 100 10/01/19 00:31 100 09/30/19 23:31 100 09/30/19 23:01 100 09/30/19 22:46 100 09/30/19 22:25 100 09/30/19 22:20 Laboratory Results 10/01/19 05:50 10/01/19 05:50 Diagnostic Findings cxr 1. Cardiomegaly and radiographic evidence of congestive failure/fluid overload 2. Right basilar opacity, likely atelectatic (1) Closed fracture of left hip Encounter type: initial encounter Qualified Code(s): S72.002A - Fracture of unspecified part of neck of left femur, initial encounter for closed fracture
[2019-10-01] MEDS ORDERED: POTASSIUM CHLORIDE / WTR 10 MEQ/100 ML PLCT IV STA (09:22)
[2019-10-01] MEDS: FUROSEMIDE 40 MG in SYRINGE 0 ML IV SCH ×2 (10:22→13:46)
--- NOTE | 2019-10-01 13:38 | Cardiology Progress Note ---
Date of Service October 01, 2019 Assessment & Plan (1) CKD (chronic kidney disease) stage 4, GFR 15-29 ml/min: Patient postoperatively has had worsening renal function and soft blood pressures No arrhythmias Becoming oliguric We will plan to trial low-dose dobutamine to above medical regimen hopefully augment LV function and renal perfusion (2) Ischemic cardiomyopathy: (3) S/P ICD (internal cardiac defibrillator) procedure: (4) Anemia: (5) Preop cardiovascular exam: Patient admitted with mechanical fall and subsequent hip fracture. Patient has an extensive constellation of multiple medical issues and will represent a high operative risk patient. Discussed with patient and family alternatives are even higher risk and I see no point in further delay at this time. Current volume status appears compensated. Patient is hemodynamically stable. He is received transfusion to hemoglobin greater than 8. Anticoagulation has been allowed to reverse Renal function is marginal with nephrology on board. He has received diuretics posttransfusion and will expect some volume shifts with blood loss in the operating room Patient and family aware, no benefits and further delay patient tentatively plan for operative procedure this afternoon [employer] staff notified regarding device management perioperatively As above patient tolerated procedure without hemodynamic compromise but still marginally compensated Usual medications resumed Anticipate resuming warfarin in a.m. Hold torsemide until reevaluated Stop metoclopramide Subjective Patient seen and examined, chart medications telemetry reviewed. Patient still lethargic but brighter than yesterday will answer questions on prodding. Denies chest pains, tachypalpitations, syncope. Surgical incision pain still present but being controlled Renal function has declined, chest x-ray consistent with very mild volume overload Physical Exam Constitutional: no acute distress Eyes: PERRL, conjunctivae normal, anicteric sclerae ENMT: external ear and nose normal, oropharynx normal Neck: trachea midline, no thyromegaly Respiratory: normal respiratory effort, lungs clear to auscultation Cardiovascular: Rate/Rhythm: + irregularly irregular Heart Sounds: normal S1, normal S2 and + murmur (Grade 1/6 systolic, no); no gallop Palpation: normal PMI Vessels: normal carotid upstroke and radial pulses present; no JVD and no carotid bruit Extremities: + edema (Trace pedal) Chest (Breasts): Chest: normal inspection of chest Gastrointestinal (Abdomen): Inspection/Auscultation: + abdomen distended (Mildly) Percussion/Palpation: abdomen soft; no hepatosplenomegaly Skin: no rashes, warm and dry Neurologic: PERRL, EOMI, accommodation nl, no face palsy, no dysarthria Psychiatric: A+Ox3, euthymic affect Results & Data Vital Signs (Past 12 Hours) Vital Signs Temp Pulse Pulse Pulse Resp BP BP 10/01/19 12:24 98 H 10/01/19 10:54 36.9 C 77 20 10/01/19 10:14 10/01/19 07:37 36.5 C 72 20 10/01/19 03:40 36.7 C 76 20 95/58 L 10/01/19 02:00 36.7 C 75 20 97/59 L BP Pulse Ox 10/01/19 12:24 95/60 L 10/01/19 10:54 84/43 L 96 10/01/19 10:14 87/50 L 10/01/19 07:37 97/63 L 93 10/01/19 03:40 97 10/01/19 02:00 100 Laboratory Results Laboratory Results - last 24 hr 09/28/19 09/30/19 09/30/19 11:58 16:30 16:30 WBC RBC Hgb Hct MCV MCH MCHC RDW Std Deviation RDW Coeff of Dung Plt Count MPV ABG pH ABG pCO2 ABG pO2 ABG HCO3 ABG O2 Saturation ABG Base Excess John Test Barometric Pressure Oxygen Given Sodium Potassium Chloride Carbon Dioxide Anion Gap BUN Creatinine Est Cr Clr Drug Dosing Est GFR ( Amer) Est GFR (Non-Af Amer) BUN/Creatinine Ratio Glucose POC Glucose 67 L* 65 L* Calcium Magnesium NT-Pro-B Natriuret Pep Blood Type A Positive Antibody Screen NEGATIVE Crossmatch See Detail 09/30/19 09/30/19 09/30/19 16:58 17:30 20:19 WBC RBC Hgb 7.5 L Hct 23.5 L MCV MCH MCHC RDW Std Deviation RDW Coeff of Dung Plt Count MPV ABG pH ABG pCO2 ABG pO2 ABG HCO3 ABG O2 Saturation ABG Base Excess John Test Barometric Pressure Oxygen Given Sodium Potassium Chloride Carbon Dioxide Anion Gap BUN Creatinine Est Cr Clr Drug Dosing Est GFR ( Amer) Est GFR (Non-Af Amer) BUN/Creatinine Ratio Glucose POC Glucose 114 H 62 L* Calcium Magnesium NT-Pro-B Natriuret Pep Blood Type Antibody Screen Crossmatch 09/30/19 09/30/19 09/30/19 20:20 20:47 20:53 WBC RBC Hgb 7.5 L Hct 23.4 L MCV MCH MCHC RDW Std Deviation RDW Coeff of Dung Plt Count MPV ABG pH ABG pCO2 ABG pO2 ABG HCO3 ABG O2 Saturation ABG Base Excess John Test Barometric Pressure Oxygen Given Sodium Potassium Chloride Carbon Dioxide Anion Gap BUN Creatinine Est Cr Clr Drug Dosing Est GFR ( Amer) Est GFR (Non-Af Amer) BUN/Creatinine Ratio Glucose POC Glucose 62 L* 111 H Calcium Magnesium NT-Pro-B Natriuret Pep Blood Type Antibody Screen Crossmatch 09/30/19 09/30/19 10/01/19 20:53 20:53 03:04 WBC RBC Hgb Hct MCV MCH MCHC RDW Std Deviation RDW Coeff of Dung Plt Count MPV ABG pH 7.37 ABG pCO2 37 ABG pO2 80 ABG HCO3 21 ABG O2 Saturation 95.0 ABG Base Excess -4.0 John Test Pos Barometric Pressure 734.1 Oxygen Given 1L O2 Sodium 139 Potassium 3.4 L Chloride 109 H Carbon Dioxide 21 Anion Gap 9.0 BUN 73 H Creatinine 4.49 H D Est Cr Clr Drug Dosing 13.5 Est GFR ( Amer) 13.3 Est GFR (Non-Af Amer) 11.5 BUN/Creatinine Ratio 16.3 Glucose 100 H POC Glucose 66 L* Calcium 8.1 L Magnesium 2.0 NT-Pro-B Natriuret Pep 02848 H Blood Type Antibody Screen Crossmatch 10/01/19 10/01/19 10/01/19 03:05 03:30 05:50 WBC RBC Hgb Hct MCV MCH MCHC RDW Std Deviation RDW Coeff of Dung Plt Count MPV ABG pH ABG pCO2 ABG pO2 ABG HCO3 ABG O2 Saturation ABG Base Excess John Test Barometric Pressure Oxygen Given Sodium 137 Potassium 3.6 Chloride 106 Carbon Dioxide 21 Anion Gap 10.0 BUN 73 H Creatinine 4.82 H* D Est Cr Clr Drug Dosing 12.6 Est GFR ( Amer) 12.3 Est GFR (Non-Af Amer) 10.6 BUN/Creatinine Ratio 14.9 Glucose 78 POC Glucose 67 L* 118 H Calcium 8.3 L Magnesium NT-Pro-B Natriuret Pep Blood Type Antibody Screen Crossmatch 10/01/19 10/01/19 10/01/19 05:50 07:35 11:35 WBC 10.99 H RBC 2.94 L Hgb 8.3 L Hct 26.1 L MCV 88.8 MCH 28.2 MCHC 31.8 L RDW Std Deviation 51.1 H RDW Coeff of Dung 15.8 H Plt Count 111 L MPV 10.5 H ABG pH ABG pCO2 ABG pO2 ABG HCO3 ABG O2 Saturation ABG Base Excess John Test Barometric Pressure Oxygen Given Sodium Potassium Chloride Carbon Dioxide Anion Gap BUN Creatinine Est Cr Clr Drug Dosing Est GFR ( Amer) Est GFR (Non-Af Amer) BUN/Creatinine Ratio Glucose POC Glucose 78 89 Calcium Magnesium NT-Pro-B Natriuret Pep Blood Type Antibody Screen Crossmatch (1) Anemia Anemia type: unspecified type Qualified Code(s): D64.9 - Anemia, unspecified
[2019-10-01] MEDS ORDERED: ALBUMIN 25% 50 ML IV STA (13:54)
[2019-10-01] MEDS: DOBUTamine / D5W 500 MG/250 ML BAG IV SCH (14:14)
[2019-10-01 18:13] LABS: BUN Creatinine Ratio 14.9 (10-20); Calcium 8.3 mg/dl (8.5-10.1); Creatinine Clr Calc Pharmacy 11.3 ml/min; Est GFR (African American) 10.7; Est GFR (Non-African American) 9.3; Potassium 3.9 mmol/L (3.5-5.1)
[2019-10-01] MEDS: SENNA 8.6 MG TAB PO SCH (20:42)
[2019-10-01] MEDS: DOCUSATE SODIUM/SENNA 50/8.6MG TAB PO SCH (21:51)
[2019-10-02] MEDS: PANTOprazole 40 MG in DEXTROSE 5% 100 ML IV SCH ×2 (02:44→07:28)
[2019-10-02] MEDS: PIPERACILLIN/TAZOBACTAM 3.375 GM in DEXTROSE 5% 100 ML IV SCH ×2 (05:36→17:10)
[2019-10-02 06:33] LABS: Hematocrit (blood only) 25.2 % (42-52); Hemoglobin 8.1 g/dL (14.0-18.0); Mean Corpuscular Hemoglobin 28.5 pg (25-34); Mean Corpuscular Hgb Conc 32.1 g/dL (32-36); Mean Corpuscular Volume 88.7 fL (80-100); Mean Platelet Volume 10.4 fL (7.4-10.4); Platelet Count 107 K/uL (130-400); RDW Coefficient of Variation 15.8 % (11.5-14.5); RDW Standard Deviation 51.1 fL (36.4-46.3); Red Blood Count 2.84 M/uL (4.7-6.1); White Blood Count 8.26 K/uL (4.8-10.8)
[2019-10-02 07:22] LABS: BUN Creatinine Ratio 14.3 (10-20); Calcium 8.2 mg/dl (8.5-10.1); Creatinine Clr Calc Pharmacy 11.6 ml/min; Est GFR (African American) 9.9; Est GFR (Non-African American) 8.5; Potassium 3.8 mmol/L (3.5-5.1)
--- NOTE | 2019-10-02 08:04 | Progress Note ---
DATE: 10/02/2019 SUBJECTIVE: An 79-year-old gentleman postop day 3 from a left cemented bipolar hip arthroplasty for fracture. He has continued to be in the PCU. Currently, continues to require blood pressure support. He says he is having some pain but better than it has been. He looks to be about baseline mentally. OBJECTIVE: VITAL SIGNS: Temperature is 36.8. Vital signs stable. Blood pressure 94/55. GENERAL: Reveals a pleasant elderly male. He is lying in bed. Seems about his baseline. He responds appropriately to questions. EXTREMITIES: Examination of the left hip reveals the dressing to be clean, dry and intact. Leg lengths were equal. Hip is located. Thigh is soft and supple. No significant drainage. LABORATORY DATA: Hemoglobin this morning is 8.1. Hematocrit 25.2. Electrolytes continue to show gradual increase in creatinine of 5.75. ASSESSMENT: An 79-year-old gentleman postop day 3 from a left bipolar hip arthroplasty for fracture. He has got multiple medical comorbidities. Renal function continues to deteriorate slightly. He continues to require blood pressure support. Clinically, he looks pretty good. Looks to be around his baseline functionally. Pain seems to be improving. PLAN: 1. DVT prophylaxis including thigh-high TEDs, SCDs, and we will leave any additional anticoagulation up to the medicine service. If it is very difficult to balance between preventing thrombosis and for any further bleeding and optimizing volume status. 2. PT/OT. Weight bear as tolerated. He can fully weightbear on this left leg. Should obey hip precautions. 4. Medical management as per the medicine service. 5. Disposition. He is orthopedically okay for discharge any time medically stable. His condition is still quite guarded. Any orthopedic questions can be directed to me at [phone].
[2019-10-02] MEDS: DOCUSATE SODIUM 100 MG CAP PO SCH (08:06)
[2019-10-02] MEDS: FERROUS GLUCONATE 324 MG TAB PO SCH (08:06)
[2019-10-02] MEDS: MULTIVITAMIN TAB PO SCH (08:07)
[2019-10-02] MEDS: CLOPIDOGREL BISULFATE 75 MG TAB PO SCH (08:09)
[2019-10-02] MEDS: ROSUVASTATIN CALCIUM 20 MG TAB PO SCH (08:09)
[2019-10-02] MEDS: SERTRALINE HCL 50 MG TABLET PO SCH (08:09)
[2019-10-02] MEDS: CYANOCOBALAMIN 500 MCG TABLET (VITAMIN B-12) PO SCH (08:09)
[2019-10-02] MEDS: INSULIN ASPART 100 UNITS/ML 3 ML PEN SC SCH ×4 (08:10→21:32)
[2019-10-02] MEDS: METOPROLOL SUCC 50MG EXT REL TAB PO SCH ×2 (08:25→19:56)
--- NOTE | 2019-10-02 08:46 | Nephrology Progress Note ---
Date of Service October 02, 2019 Assessment & Plan (1) Acute worsening of stage 4 chronic kidney disease: advanced ckd 4 w/ chronic volume overload and very labile creatinine ranging as OP from upper 2's to mid 3's, most recently 3.8 on 09/25. creatinine w/ another big jump today 5.8 w/ ongoing oliguria -strict I/O -tiral of lasix on dobutamine > if no increased UOP in response, recommend urgent dialysis probably tomorrow or next day -daily bmp -tighter FR to 1.5L and cont <2 gm Na diet >torsemide on hold >give another lasix 60 mg IV now and monitor response -consent for dialysis obtained from pt w/ daughter lorraine present and on chart (2) Fluid overload: worsening fluid status w/ oliguria > trial of lasix on dobutamine but unless he opens considerably will likely need dialysis next 48 hrs Present on Admission?: Yes (3) Acute on chronic anemia: Hgb 6.9 on presentation w/ chronic gastritis w/ scant heme + emesis in ER INR 4.8>1.7; pt had actually been bridging w/ lovenox in prep for AVF surgery on 10/02 > per [facility], last coumadin dose was to be 09/26, then start lovenox 09/29 >had pRBC 2 units day of OR; had another unit 09/30. GI considering EGD >> post transfusion hgb up to 8.1 this am -would not initiate procrit w/ fracture/ GI bleeding; again have been urging this as OP and will cont to discuss as OP (4) Closed fracture of left hip: s/p L cemented bipolar hip arthroplasty 09/29 Subjective ate full breakfast; c/o hip pain and constipation. 245 uop yesterday; but 100 mL so far from 7-10 w/o diuretics. no N/V, no further bleeding; no sob; + generalized weakness on dobutamine gtt Review of Systems Review of Systems: All systems reviewed & are unremarkable except as noted in HPI & below Physical Exam Constitutional: well developed, well nourished, cooperative and comfortable; n o acute distress much more alert today, cooperative Eyes: EOM intact bilaterally ENMT: Ears: + hearing impairment; no external ear abnormality Nose: no external nose abnormality Neck: no nuchal rigidity Respiratory: normal respiratory effort and + paradoxical thoraco-abdominal movement Auscultation: + diminished lung sounds ([place] bl bases) Cardiovascular: Rate/Rhythm: + irregularly irregular Heart Sounds: + murmur Vessels: + JVD Extremities: no edema Gastrointestinal (Abdomen): Inspection/Auscultation: normal bowel sounds Percussion/Palpation: abdomen soft; abdomen nontender Musculoskeletal: Extremities: strength 5/5 throughout Skin: no rashes, warm and dry + ecchymosis and + pallor Psychiatric: Orientation: oriented to person and oriented to place Affect: euthymic affect Insight: + limited insight Judgement: + limited judgement Genitourinary: browning w/ scant urine Results & Data Vital Signs (Past 12 Hours) Vital Signs Temp Pulse Pulse Resp BP BP Pulse Ox 10/02/19 07:52 36.9 C 83 19 107/70 97 10/02/19 04:44 36.8 C 86 18 94/55 L 97 10/01/19 23:27 36.6 C 66 20 88/40 L 98 Laboratory Results 10/02/19 05:53 10/02/19 05:53 Diagnostic Findings cxr 1. Cardiomegaly and radiographic evidence of congestive failure/fluid overload 2. Right basilar opacity, likely atelectatic (1) Closed fracture of left hip Encounter type: initial encounter Qualified Code(s): S72.002A - Fracture of unspecified part of neck of left femur, initial encounter for closed fracture (2) Fluid overload Hypervolemia type: other Qualified Code(s): E87.79 - Other fluid overload
[2019-10-02] MEDS ORDERED: FUROSEMIDE 60 MG in SYRINGE 0 ML IV STA (08:55)
[2019-10-02] MEDS ORDERED: DOCUSATE SODIUM SYRUP 100 MG/10 ML UDC PO ONE (09:30)
[2019-10-02] MEDS: TESTOSTERONE TOP SCH (09:31)
[2019-10-02] MEDS: ACETAMINOPHEN 1,000 MG/100 ML VIAL IV SCH ×2 (09:31→19:51)
--- NOTE | 2019-10-02 10:46 | Cardiology Progress Note ---
Date of Service October 02, 2019 Assessment & Plan (1) CKD (chronic kidney disease) stage 4, GFR 15-29 ml/min: Patient postoperatively has had worsening renal function No arrhythmias We will plan to continue low-dose dobutamine to above medical regimen hopefully augment LV function and renal perfusion Defibrillator in place and no significant arrhythmias initially. Further recommendation as per nephrology Will not restart warfarin at this time given potential need for central dialysis catheter Consider full anticoagulation with heparin in a.m. (2) Ischemic cardiomyopathy: (3) S/P ICD (internal cardiac defibrillator) procedure: (4) Anemia: (5) Preop cardiovascular exam: Subjective Patient seen and examined, chart, medications, telemetry reviewed Patient somewhat brighter today occasional confusion but no focal complaints ana maria n being controlled Renal function has declined but with some urine output Has tolerated dobutamine low-dose infusion Physical Exam Constitutional: no acute distress Eyes: PERRL, conjunctivae normal, anicteric sclerae ENMT: external ear and nose normal, oropharynx normal Neck: trachea midline, no thyromegaly Respiratory: normal respiratory effort, lungs clear to auscultation Cardiovascular: Rate/Rhythm: + irregularly irregular Heart Sounds: normal S1, normal S2 and + murmur (Grade 1/6 systolic, no); no gallop Palpation: normal PMI Vessels: normal carotid upstroke and radial pulses present; no JVD and no carotid bruit Extremities: + edema (Trace pedal) Chest (Breasts): Chest: normal inspection of chest Gastrointestinal (Abdomen): Inspection/Auscultation: + abdomen distended (Mildly) Percussion/Palpation: abdomen soft; no hepatosplenomegaly Skin: no rashes, warm and dry Neurologic: PERRL, EOMI, accommodation nl, no face palsy, no dysarthria Psychiatric: A+Ox3, euthymic affect Results & Data Vital Signs (Past 12 Hours) Vital Signs Temp Pulse Pulse Resp BP BP Pulse Ox 10/02/19 07:52 36.9 C 83 19 107/70 97 10/02/19 04:44 36.8 C 86 18 94/55 L 97 10/01/19 23:27 36.6 C 66 20 88/40 L 98 Laboratory Results Laboratory Results - last 24 hr 10/01/19 10/01/19 10/01/19 11:35 16:10 17:10 WBC RBC Hgb Hct MCV MCH MCHC RDW Std Deviation RDW Coeff of Dung Plt Count MPV Sodium 137 Potassium 3.9 Chloride 105 Carbon Dioxide 22 Anion Gap 11.0 BUN 78 H Creatinine 5.37 H* D Est Cr Clr Drug Dosing 11.3 Est GFR ( Amer) 10.7 Est GFR (Non-Af Amer) 9.3 BUN/Creatinine Ratio 14.9 Glucose 94 POC Glucose 89 126 H Calcium 8.3 L 10/01/19 10/02/19 10/02/19 20:20 05:53 05:53 WBC 8.26 RBC 2.84 L Hgb 8.1 L Hct 25.2 L MCV 88.7 MCH 28.5 MCHC 32.1 RDW Std Deviation 51.1 H RDW Coeff of Dung 15.8 H Plt Count 107 L MPV 10.4 Sodium 136 Potassium 3.8 Chloride 104 Carbon Dioxide 21 Anion Gap 11.0 BUN 82 H Creatinine 5.75 H* D Est Cr Clr Drug Dosing 11.6 Est GFR ( Amer) 9.9 Est GFR (Non-Af Amer) 8.5 BUN/Creatinine Ratio 14.3 Glucose 94 POC Glucose 112 H Calcium 8.2 L 10/02/19 07:24 WBC RBC Hgb Hct MCV MCH MCHC RDW Std Deviation RDW Coeff of Dung Plt Count MPV Sodium Potassium Chloride Carbon Dioxide Anion Gap BUN Creatinine Est Cr Clr Drug Dosing Est GFR ( Amer) Est GFR (Non-Af Amer) BUN/Creatinine Ratio Glucose POC Glucose 112 H Calcium (1) Anemia Anemia type: unspecified type Qualified Code(s): D64.9 - Anemia, unspecified
--- NOTE | 2019-10-02 11:13 | Gastroenterology Progress Note ---
Date of Service October 02, 2019 Assessment & Plan (1) Hematemesis: Likely secondary to gastritis as seen on recent EGD. We considered EGD deferred for now due to comorbidities (worsening renal function). Will consider if gross GI bleeding. (2) Cirrhosis of liver: His cirrhosis with mild ascites (on imaging only) seems well compensated. He has never had hepatic encephalopathy and does not have esophageal varices. However, his [facility] Post Operative Risk Score is calculated at: 19% mortality risk in the first 7 days after surgery,58% mortality risk in 30 days. He continues to be at risk for decompensation of his cirrhosis with major surgery. Will watch for evidence of hepatic encephalopathy, increased bleeding, major fluid shifts causing electrolyte derangement, and worsening renal failure. Appreciate primary hospitalists management of hypotension and nephrology management of diuretics. Will continue to follow. Supervising Physician Co-Signing Physician Notes I saw and evaluated the patient. He recently had a hip replacement performed by orthopedics. At this point it appears that he has had no recurrence of coffee- ground emesis and endoscopy was deferred last week after guidance from cardiology. At this point we would recommend upper endoscopy as needed if the patient develops worsening symptoms to include hematemesis or melena. From the aspect of his liver disease appears to be compensated at this point and we would not recommend any additional interventions. We appreciate nephrology input given the patient's profound renal failure. Please call us with any additional questions or concerns. Subjective Mr. 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 He underwent surgical repair on 09/29. He had one episode of brown emesis early on Wednesday morning and one episode of brown emesis that night after surgery as well. Hb was 6.9 on arrival + 4 units of RBCs and Hb today is 8. 1. Liver function: TB 1.1 on arrival, other LFTs normal. No jaundice on exam. Worsening renal function: 2.8-> 5.75. On exam, abdomen with moderate distention but appears more gaseous than ascitic. KUB on 09/29 w/o obstruction. Pt is awake, comfortable, oriented, denies abdominal pain. His daughter is at the bedside and she gives report that he hasn't had vomiting since last 09.29. No BMs since arrival. Review of Systems Constitutional: + weakness (chronic but no worsening prior to the fall.); no fever and no chills Ear, Nose, Mouth, Throat: chronically hard of hearing Gastrointestinal: + vomiting (not since 09/29) and + hematemesis (not since 09/29); no abdominal pain and no nausea Integumentary: easy bruising on warfarin Neurologic: + falls; no tremor(s) and no confusion Physical Exam 2 Constitutional: WD/WN, vitals as above Eyes: PERRL, conjunctivae normal, anicteric sclerae ENMT: external ear and nose normal, oropharynx normal Neck: trachea midline, no thyromegaly Respiratory: normal respiratory effort, lungs clear to auscultation Auscultation: + diminished lung sounds (at both bases but no adventitious sounds) Cardiovascular: Rate/Rhythm: regular rate and regular rhythm 2/6 systolic murmur Gastrointestinal (Abdomen): Percussion/Palpation: abdomen nontender Abdomen mild to moderate gaseous distention, small ascites; BS hypoactive. Skin: no rashes, warm and dry no jaundice Neurologic: PERRL, EOMI, accommodation nl, no face palsy, no dysarthria Psychiatric: Orientation: oriented x 3 Lymphatic: no cervical or axillary lymphadenopathy Results & Data Vital Signs (Past 12 Hours) Vital Signs Temp Pulse Pulse Resp BP BP Pulse Ox 10/02/19 07:52 36.9 C 83 19 107/70 97 10/02/19 04:44 36.8 C 86 18 94/55 L 97 10/01/19 23:27 36.6 C 66 20 88/40 L 98
[2019-10-02] MEDS ORDERED: FUROSEMIDE 60 MG in SYRINGE 0 ML IV ONE (15:00)
--- NOTE | 2019-10-02 17:32 | Hospitalist Progress Note ---
Date of Service October 02, 2019 Assessment & Plan (1) Fall: (1) Fall: (2) Closed fracture of left hip: Mr. Cottrell is an 79 y/o male who has significant PMH of CAD with history of stent 2012, chronic combined systolic and diastolic CHF, chronic atrial fibrillation anticoagulated on warfarin, history of VTACH s/p AICD, history of CVA, HTN, HLD, CKD stage IV, T2DM, history of right clear-cell kidney CA s/p ablation, chronic gastritis who presents to [facility] after sustaining mechanical fall at home prior to arrival. In ED patient had left hip x-ray which revealed subcapital left hip fracture. Hemoglobin and hematocrit decreased from baseline at 6.9 and 21.8, elevated INR 4.8, A/C CKD-4 BUN/creatinine 58/3.79 Chest x-ray revealed pulmonary vascular congestion and probable trace pleural effusions. He remained hemodynamically stable while in ED. - transfused 1 unit PRBC - Emesis in ED tested Heme positive Admitted to PCU to optimize co morbidities including acute on chronic anemia, acute on chronic CKD stage IV, chronic gastritis with hemorrhage, simental pratherapeutic INR on warfarin Orthopedics Dr. Torres, consulted pre op antibiotics with cefazolin - pt has GI side effects to oral ceftin but no anaphylaxis reported Thorough discussion between multiple subspecialties, including cardiology, nephrology, GI, given patient's significant co-morbidities, however agreed that it is still in the best patient's interest to proceed with the surgery. Now pt s/p Left cemented bipolar hip arthroplasty w/ Dr. Torres (09/29/2019) Patient tolerated procedure well, examined postop, vital signs good within goals, family updated at the bedside (08/30) patient was hypotensive in the evening, discussed with ICU close monitoring overnight and possible need for upgrade to the ICU. Received 1 unit of blood, and was started on Zosyn (for possible aspiration pna). 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 (3) Anemia: Likely combination of anemia of chronic disease due to CKD stage IV, and blood loss anemia due to known gastritis, and expected acute blood loss (post. surg) anemia Nephrology consulted H&H 6.9 and 21.8 on admission Received multiple pRBCs, with IV lasix Received 1 unit of PRBCs again on (09/30) Current Hgb 8.1, stable Continue PPI Goal Hgb >8, baseline hemoglobin ~ 8 (4) Chronic gastritis: Recent EGD last admission 07/26 d/t anemia EGD revealed chronic gastritis with hemorrhage - recommended PPI BID - pt has been complaint with this Patient had episode of emesis in ED which was heme positive Consult gastroenterology-appreciate their input, GI recommended EGD, however anesthesia would be presenting higher risk for the patient, therefore after discussion with multiple subspecialties, decided to proceed with the hip surgery, pt will follow up with a GI service afterwards. GI service did provide their assessment, given patient's cirrhosis patient has high risk of mortality postop (17% mortality risk in the first 7 days after surgery, 58% risk mortality risk is 30 days), see GI note for more details Continue PPI (5) Acute worsening of stage 4 chronic kidney disease: TOBIN on CKD baseline cr 2.8-3.0 bun/cr 58/3.79,on admission likely worsened in setting of hypovolemia Per family patient was to undergo AV fistula next week (prior to admission) Consult nephrology Dr. Martin due to worsened anemia along with assistance in volume status management given advanced CKD Worsening renal function post-op and difficult to manage volume status While pt on dobutamine,tolerated IV lasix, however given poor urine output and worsening renal function, discussed dialysis - ongoing discussion w/ nephrology, patient and family Pt may need temporary line placed overnight (6) Chronic atrial fibrillation: Currently rate controlled on metoprolol succinate 100 mg twice daily Supratherapeutic INR 4.8 on admission, IV vitamin K 10 mg given in ED Hold Coumadin for now consulted cardiology for preop clearance given hx of chronic afib, hx of cva, CAD, S-CHF Dr. Alexander evaluated patient in the morning, preop, and cooperated with clinical discussion about proceeding with surgery despite patient's multiple risk factors and comorbidities. See more details in cardiology note. Cardiology continues to follow, appreciate their input, discussed starting pressor support, patient was started on dobutamine peripherally (10/01). (7) Chronic systolic heart failure: Secondary to ischemic cardiomyopathy On outpatient regimen of torsemide 100 mg daily, metoprolol Continue metoprolol, hold torsemide for now -will continue to reevaluate volume status, IV lasix given prn, pt somewhat responded to IV diuretics but given his worsening renal function, does not seem to be adequate and dialysis is being discussed Monitor daily weight Strict I's and O's Heart healthy, low-sodium diet Echo (09/29), EF 40-45%, fluid overload, mild syst. LV dysfunction (8) CAD (coronary artery disease): No current chest pain or shortness of breath History of stent in 2011 As outpatient was on Plavix, Coumadin, statin, metoprolol Hold Coumadin in setting of supratherapeutic INR and anemia cont. Plavix Continue statin and metoprolol echocardiogram as above (9) HTN (hypertension): Pt actually hypotensive post-op, now requiring dobutamine support (since 08/31), d/t worsening renal failure and fluid overload prev. thought d/t anemia, also concern for aspiration (antibiotics started) At home prev. on metoprolol and torsemide (10) DMII (diabetes mellitus, type 2): Last A1c 5.8 On oral glipizide as outpatient Hold glipizide, placed on NovoLog per protocol (11) S/P ICD (internal cardiac defibrillator) procedure: hx of Vtach AICD in place (12) DVT prophylaxis: SCD/TEDS s/p IV Vit K x 10mg due to supratherapeutic INR 4.8 Hold warfarin due to likely procedure Disposition: PCU /Tele, case management consulted Follow-up: PCP Dr. Thomas upon discharge Subjective Patient is sitting up in the chair, eating with assistance. He is alert and shady ented, able to answer questions appropriately. Family at the bedside. Patient denies any fevers, chills, chest pain, shortness of breath, abdominal pain, nausea, vomiting. Patient continues to require support with dobutamine. Update: discussed this evening (10/02/2019) with the patient and also family at the bedside, possible need for dialysis next day or overnight. Discussed on daily basis especially with Dr. Martin, patient's vacuum drum drier operator. Patient states that he would be okay to have a temporary line placed if needed for dialysis. Patient is very clear about his decision, and understands risks and poss. consequences. Review of Systems Review of Systems: All systems reviewed & are unremarkable except as noted in HPI & below Constitutional: no fever and no chills Respiratory: no cough and no dyspnea Cardiovascular: no chest pain, no palpitations and no edema Gastrointestinal: no abdominal pain, no nausea and no vomiting Physical Exam Physical Exam: Elderly male in no acute distress, alert and oriented Constitutional: well developed and + ill appearing; no acute distress Eyes: PERRL, conjunctivae normal, anicteric sclerae ENMT: external ear and nose normal, oropharynx normal Neck: trachea midline, no thyromegaly no JVD Respiratory: normal respiratory effort; no respiratory distress, no labored breathing and no retractions Auscultation: + diminished lung sounds Cardiovascular: Rate/Rhythm: + irregularly irregular Heart Sounds: + murmur (soft. syst.) Chest (Breasts): Chest: normal inspection of chest Gastrointestinal (Abdomen): Inspection/Auscultation: abdomen normal to inspection and normal bowel sounds Percussion/Palpation: abdomen soft; abdomen nontender and no guarding mildly distended but no fluid wave Skin: no rashes, warm and dry Neurologic: Cranial Nerves: PERRL EOMI, no facial asymmetry, speech fluent, moves all extrem. spontaneously Psychiatric: A+Ox3, euthymic affect Results & Data Vital Signs (Past 12 Hours) Vital Signs Temp Pulse Resp BP BP Pulse Ox 10/02/19 16:37 101/61 10/02/19 15:55 36.6 C 88 18 96/46 L 100 10/02/19 15:27 100/63 10/02/19 14:41 100 10/02/19 12:00 36.5 C 86 18 96/60 L 100 10/02/19 07:52 36.9 C 83 19 107/70 97 Laboratory Results 10/02/19 10/02/19 10/02/19 Range/Units 16:29 11:15 07:24 WBC (4.8-10.8) K/uL RBC (4.7-6.1) M/uL Hgb (14.0-18.0) g/dL Hct (42-52) % MCV (80-100) fL MCH (25-34) pg MCHC (32-36) g/dL RDW Std Deviation (36.4-46.3) fL RDW Coeff of Dung (11.5-14.5) % Plt Count (130-400) K/uL MPV (7.4-10.4) fL Sodium (136-145) mmol/L Potassium (3.5-5.1) mmol/L Chloride (98-107) mmol/L Carbon Dioxide (21-32) mmol/L Anion Gap (3-11) BUN (7-18) mg/dl Creatinine (0.6-1.4) mg/dl Est Cr Clr Drug Dosing ml/min Est GFR ( Amer) Est GFR (Non-Af Amer) BUN/Creatinine Ratio (10-20) Glucose (70-99) mg/dl POC Glucose 113 H 125 H 112 H (70-99) Calcium (8.5-10.1) mg/dl 10/02/19 10/02/19 10/01/19 Range/Units 05:53 05:53 20:20 WBC 8.26 (4.8-10.8) K/uL RBC 2.84 L (4.7-6.1) M/uL Hgb 8.1 L (14.0-18.0) g/dL Hct 25.2 L (42-52) % MCV 88.7 (80-100) fL MCH 28.5 (25-34) pg MCHC 32.1 (32-36) g/dL RDW Std Deviation 51.1 H (36.4-46.3) fL RDW Coeff of Dung 15.8 H (11.5-14.5) % Plt Count 107 L (130-400) K/uL MPV 10.4 (7.4-10.4) fL Sodium 136 (136-145) mmol/L Potassium 3.8 (3.5-5.1) mmol/L Chloride 104 (98-107) mmol/L Carbon Dioxide 21 (21-32) mmol/L Anion Gap 11.0 (3-11) BUN 82 H (7-18) mg/dl Creatinine 5.75 H* D (0.6-1.4) mg/dl Est Cr Clr Drug Dosing 11.6 ml/min Est GFR ( Amer) 9.9 Est GFR (Non-Af Amer) 8.5 BUN/Creatinine Ratio 14.3 (10-20) Glucose 94 (70-99) mg/dl POC Glucose 112 H (70-99) Calcium 8.2 L (8.5-10.1) mg/dl 10/01/19 Range/Units 17:10 WBC (4.8-10.8) K/uL RBC (4.7-6.1) M/uL Hgb (14.0-18.0) g/dL Hct (42-52) % MCV (80-100) fL MCH (25-34) pg MCHC (32-36) g/dL RDW Std Deviation (36.4-46.3) fL RDW Coeff of Dung (11.5-14.5) % Plt Count (130-400) K/uL MPV (7.4-10.4) fL Sodium 137 (136-145) mmol/L Potassium 3.9 (3.5-5.1) mmol/L Chloride 105 (98-107) mmol/L Carbon Dioxide 22 (21-32) mmol/L Anion Gap 11.0 (3-11) BUN 78 H (7-18) mg/dl Creatinine 5.37 H* D (0.6-1.4) mg/dl Est Cr Clr Drug Dosing 11.3 ml/min Est GFR ( Amer) 10.7 Est GFR (Non-Af Amer) 9.3 BUN/Creatinine Ratio 14.9 (10-20) Glucose 94 (70-99) mg/dl POC Glucose (70-99) Calcium 8.3 L (8.5-10.1) mg/dl Medications Administered Current Inpatient Medications Bisacodyl (Dulcolax) 10 mg LA DAILY PRN PRN Reason: Constipation Stop: 10/28/19 17:03 Clopidogrel Bisulfate (Plavix) 75 mg PO [facility] Stop: 10/30/19 08:59 Last Admin: 10/02/19 08:09 Dose: 75 mg Documented by: Dextrose (Dextrose 50%) 25 - 50 ml IV UD PRN; Protocol PRN Reason: Hypoglycemia Protocol Stop: 10/28/19 17:03 Last Admin: 10/01/19 03:09 Dose: 25 ml Documented by: Ferrous Gluconate (Ferrous Gluconate) 324 mg PO [facility] Stop: 10/29/19 08:59 Last Admin: 10/02/19 08:06 Dose: 324 mg Documented by: Glucagon (Glucagen) 1 mg SQ UD PRN; Protocol PRN Reason: Hypoglycemia Protocol Stop: 10/28/19 17:03 Glucose (Glucose 40%) 15 - 30 gm PO UD PRN; Protocol PRN Reason: Hypoglycemia Protocol Stop: 10/28/19 17:03 Glucose (Dex4 Glucose) 4 - 8 tabs PO UD PRN; Protocol PRN Reason: Hypoglycemia Protocol Stop: 10/28/19 17:03 Guaifenesin (Mucinex) 1,200 mg PO Q12H PRN PRN Reason: Cough Stop: 10/29/19 18:47 Sodium Chloride (Nss) 250 mls @ 15 mls/hr IV .[id number] PRN PRN Reason: For Transfusion Stop: 10/28/19 12:28 Sodium Chloride (Nss) 250 mls @ 15 mls/hr IV .[id number] PRN PRN Reason: For Transfusion Stop: 10/30/19 20:32 Piperacillin Sod/Tazobactam (Sod 3.375 gm/ Dextrose) 115 mls @ 28.75 mls/hr IV Q12H [facility]; Protocol Stop: 10/07/19 20:59 Last Admin: 10/02/19 17:10 Dose: 28.8 mls/hr Documented by: Acetaminophen (Ofirmev) 1,000 mg in 100 mls @ 400 mls/hr IV BID [facility]; Protocol Stop: 10/04/19 08:59 Last Infusion: 10/02/19 09:46 Dose: Infused Documented by: Dobutamine HCl/Dextrose (Dobutamine / D5w) 500 mg in 250 mls @ 5.1 mls/hr IV .Q24H [facility]; Protocol Stop: 10/31/19 13:59 Last Admin: 10/01/19 14:14 Dose: 2 mcg/kg/min, 5.1 mls/hr Documented by: Insulin Aspart (Novolog Flexpen) 0 units SC ACHS [facility] Stop: 10/28/19 17:59 Last Admin: 10/02/19 12:25 Dose: Not Given Documented by: Lansoprazole (Prevacid) 30 mg PO BID [facility] Stop: 11/01/19 20:59 Magnesium Hydroxide (Milk Of Magnesia) 30 ml PO Q6H PRN PRN Reason: Constipation Stop: 10/29/19 17:06 Metoprolol Succinate (Toprol Xl) 100 mg PO BID [facility] Stop: 10/28/19 20:59 Last Admin: 10/02/19 08:25 Dose: Not Given Documented by: Miscellaneous (Carbohydrates For Hypoglycemia) 15 - 30 gm PO UD PRN PRN Reason: Hypoglycemia Protocol Stop: 10/28/19 17:03 Miscellaneous Information (Consult) 1 ea N/A UD PRN PRN Reason: Consult Stop: 10/30/19 20:33 Morphine Sulfate (Morphine Sulfate) 2 mg IV Q2H PRN PRN Reason: MODERATE Pain (Scale 4,5,6) Stop: 10/12/19 17:03 Naloxone HCl (Narcan) 0.1 mg IV Q5M PRN PRN Reason: Oversedation/Resp Depression Stop: 10/29/19 17:06 Nitroglycerin (Nitrostat) 0.4 mg SL UD PRN PRN Reason: Chest Pain Stop: 10/29/19 17:06 Testosteroine Gel~ Non-Formulary Patient's Own Med 1 ea TOP DAILY [facility] Stop: 10/31/19 08:59 Last Admin: 10/02/19 09:31 Dose: 1 btl Documented by: Ondansetron HCl (Zofran) 4 mg IV Q6H PRN PRN Reason: Nausea And Vomiting Stop: 10/29/19 17:06 Polyethylene Glycol (Miralax Powder Packet) 17 gm PO DAILY [facility] Stop: 11/02/19 08:59 Rosuvastatin Calcium (Crestor) 20 mg PO QAM [facility] Stop: 10/29/19 08:59 Last Admin: 10/02/19 08:09 Dose: 20 mg Documented by: Sennosides (Senokot) 17.2 mg PO HS [facility] Stop: 10/29/19 20:59 Last Admin: 10/01/19 20:42 Dose: 17.2 mg Documented by: Sertraline HCl (Zoloft) 50 mg PO QAM [facility] Stop: 10/29/19 08:59 Last Admin: 10/02/19 08:09 Dose: 50 mg Documented by: Tamsulosin HCl (Flomax) 0.4 mg PO QAM PRN PRN Reason: unable to void Stop: 10/29/19 17:06 Last Admin: 09/30/19 08:52 Dose: 0.4 mg Documented by: Tramadol HCl (Ultram) 50 mg PO Q4H PRN PRN Reason: Mild Pain Stop: 10/28/19 17:03 Last Admin: 09/29/19 08:49 Dose: 50 mg Documented by: (1) Fall Encounter type: initial encounter Qualified Code(s): W19.XXXA - Unspecified fall, initial encounter
[2019-10-02 18:53] LABS: BUN Creatinine Ratio 13.5 (10-20); Calcium 8.4 mg/dl (8.5-10.1); Creatinine Clr Calc Pharmacy 11.2 ml/min; Est GFR (African American) 9.5; Est GFR (Non-African American) 8.2; Potassium 3.9 mmol/L (3.5-5.1)
[2019-10-02] MEDS: SENNA 8.6 MG TAB PO SCH (19:52)
[2019-10-02] MEDS: LANSOPRAZOLE 30 MG SOLTAB PO SCH (19:53)
[2019-10-02 20:34] LABS: INR 2.4 (0.9-1.1); Partial Thromboplastin Ratio 2.2; Prothrombin Time 23.5 Seconds (9.0-12.0)
[2019-10-02 20:37] LABS: Partial Thromboplastin Time 60.1 Seconds (21.0-31.0)
[2019-10-02] MEDS ORDERED: SODIUM CHLORIDE 0.9% 250 ML IV PRN (23:37)
[2019-10-03] MEDS: DOBUTamine / D5W 500 MG/250 ML BAG IV SCH ×2 (05:07→12:21)
[2019-10-03] MEDS: PIPERACILLIN/TAZOBACTAM 3.375 GM in DEXTROSE 5% 100 ML IV SCH ×2 (05:19→16:20)
[2019-10-03 06:59] LABS: Hematocrit (blood only) 24.6 % (42-52); Mean Corpuscular Hemoglobin 28.7 pg (25-34); Mean Corpuscular Hgb Conc 32.5 g/dL (32-36); Mean Corpuscular Volume 88.2 fL (80-100); Mean Platelet Volume 9.7 fL (7.4-10.4); Platelet Count 104 K/uL (130-400); RDW Coefficient of Variation 15.7 % (11.5-14.5); RDW Standard Deviation 50.6 fL (36.4-46.3); Red Blood Count 2.79 M/uL (4.7-6.1); White Blood Count 7.17 K/uL (4.8-10.8)
--- NOTE | 2019-10-03 07:19 | Nephrology Progress Note ---
Date of Service October 03, 2019 Assessment & Plan (1) Acute worsening of stage 4 chronic kidney disease: advanced ckd 4 w/ chronic volume overload and very labile creatinine ranging as OP from upper 2's to mid 3's, most recently 3.8 on 09/25. creatinine w/ another big jump yesterday 5.8 though oliguria has for now resolved -strict I/O -trial of lasix on dobutamine > if no increased UOP in response or ongoing vol OL, recommend urgent dialysis probably tomorrow or next day; we had actually planned line and starting this am but family wishes to discuss further>> for now w/ increased uop, attempt to temporize to get TDC when vascular available versus 2 procedures for access (temp line and then TDC) -daily bmp -cont FR to 1.5L and cont <2 gm Na diet >torsemide on hold/d-c'd -consent for dialysis obtained from pt w/ daughter lorraine present and on chart; i snot decision maker (2) Fluid overload: worsening fluid status w/ oliguria > trial of lasix on dobutamine but unless he opens considerably will likely need dialysis next 48 hrs (3) Acute on chronic anemia: Hgb 6.9 on presentation w/ chronic gastritis w/ scant heme + emesis in ER INR 4.8>1.7; pt had actually been bridging w/ lovenox in prep for AVF surgery on 10/02 > per epic, last coumadin dose was to be 09/26, then start lovenox 09/29 >had pRBC 2 units day of OR; had another unit 09/30. GI considering EGD >> post transfusion 10/02, hgb 8.0 this am -would not initiate procrit w/ fracture/ GI bleeding; again have been urging this as OP and will cont to discuss as OP (4) Closed fracture of left hip: s/p L cemented bipolar hip arthroplasty 09/29 Subjective no complaints except ongoing L hip pain. no sob; no n/v, no confusion. no rash, no edema. 02 needs stable 360 mL UOP ON. ICU team came by to place line and pt refused line; pt states "her name is not on (decision making/consent) form; mine is." no palpitations, hungry Review of Systems Review of Systems: All systems reviewed & are unremarkable except as noted in HPI & below Physical Exam Constitutional: well developed, well nourished, cooperative and comfortable; no acute distress on 02nc Eyes: EOM intact bilaterally ENMT: Ears: + hearing impairment; no external ear abnormality Nose: no external nose abnormality Mouth: + dry oral mucous membranes (very dry; mouth breather) Neck: no nuchal rigidity Respiratory: normal respiratory effort and + paradoxical thoraco-abdominal movement Auscultation: + diminished lung sounds ([place] bl bases) Cardiovascular: Rate/Rhythm: + irregularly irregular Heart Sounds: + murmur Vessels: + JVD Extremities: no edema Gastrointestinal (Abdomen): Inspection/Auscultation: normal bowel sounds Percussion/Palpation: abdomen soft; abdomen nontender Musculoskeletal: Extremities: strength 5/5 throughout Skin: no rashes, warm and dry + ecchymosis and + pallor Neurologic: hoffman, fluent speech, no tremor Psychiatric: Orientation: oriented to person and oriented to place Affect: euthymic affect Insight: + limited insight Judgement: + limited judgement Genitourinary: browning w some urine Results & Data Vital Signs (Past 12 Hours) Vital Signs Temp Pulse Pulse Pulse Resp BP BP 10/03/19 05:46 36.4 C L 96 H 116/70 10/03/19 05:11 36.6 C 88 101/53 L 10/03/19 04:11 36.8 C 97 H 21 108/64 10/03/19 03:56 36.6 C 94 H 20 10/03/19 03:40 36.6 C 90 90 19 105/62 105/62 10/03/19 02:58 36.6 C 100 H 20 103/64 10/03/19 01:58 36.5 C 95 H 101/61 10/03/19 01:28 36.7 C 92 H 20 106/64 10/03/19 01:13 36.9 C 104 H 20 97/58 L 10/03/19 00:56 36.8 C 92 H 16 98/53 L 10/03/19 00:09 86 10/02/19 22:20 85 10/02/19 19:54 36.5 C 97 H BP Pulse Ox 10/03/19 05:46 99 10/03/19 05:11 100 10/03/19 04:11 100 10/03/19 03:56 11/12/19 03:40 100 10/03/19 02:58 100 10/03/19 01:58 96 10/03/19 01:28 100 10/03/19 01:13 100 10/03/19 00:56 100 10/03/19 00:09 10/02/19 22:20 10/02/19 19:54 113/59 L 96 Laboratory Results 10/03/19 06:44 10/03/19 06:44 (1) Closed fracture of left hip Encounter type: initial encounter Qualified Code(s): S72.002A - Fracture of unspecified part of neck of left femur, initial encounter for closed fracture (2) Fluid overload Hypervolemia type: other Qualified Code(s): E87.79 - Other fluid overload
[2019-10-03] MEDS: METOPROLOL SUCC 50MG EXT REL TAB PO SCH ×2 (07:36→22:18)
[2019-10-03] MEDS: LANSOPRAZOLE 30 MG SOLTAB PO SCH ×2 (07:37→22:19)
[2019-10-03] MEDS: SERTRALINE HCL 50 MG TABLET PO SCH (07:37)
[2019-10-03] MEDS: ROSUVASTATIN CALCIUM 20 MG TAB PO SCH (07:37)
[2019-10-03] MEDS: FERROUS GLUCONATE 324 MG TAB PO SCH (07:37)
[2019-10-03] MEDS: POLYETHYLENE (MIRALAX) 17 GM PACK PO SCH (07:39)
[2019-10-03] MEDS: ACETAMINOPHEN 1,000 MG/100 ML VIAL IV SCH ×2 (07:45→22:14)
[2019-10-03 07:49] LABS: BUN Creatinine Ratio 14.2 (10-20); Calcium 8.5 mg/dl (8.5-10.1); Creatinine Clr Calc Pharmacy 10.9 ml/min; Est GFR (African American) 9.2; Potassium 3.6 mmol/L (3.5-5.1)
[2019-10-03] MEDS ORDERED: FUROSEMIDE 60 MG in SYRINGE 0 ML IV STA (08:32)
[2019-10-03] MEDS: INSULIN ASPART 100 UNITS/ML 3 ML PEN SC SCH ×4 (09:20→22:00)
[2019-10-03] MEDS: TESTOSTERONE TOP SCH (09:47)
[2019-10-03] MEDS: CLOPIDOGREL BISULFATE 75 MG TAB PO SCH (10:58)
--- NOTE | 2019-10-03 11:56 | Consultation ---
Date of Consultation October 03, 2019 Assessment & Plan (1) Acute worsening of stage 4 chronic kidney disease: Planning for permcath insertion tomorrow in OR. Will also involve anesthesia d/t dobutamine drip requirement. Pt and family understand that pt will have increased risk of bleeding d/t not stopping plavix. Pt and daughter agreeable. Present on Admission?: Yes History of Present Illness Reason for Consultation: need permcath for HD Requesting Physician: Alisson Olivares Attending Physician: Iron Kumar MD History of Present Illness 79 yo m with multiple medical problems, including CKD, a fib, gastritis, CHF, v tach, s/p ICD , CAD, DMII, HTN, CVA, admitted after surgical repair of L hip fx, seen in consultation today for permcath insertion for HD. 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 Pt was scheduled for AVF creation at [facility] yesterday, however, that was cx d/t his admission here. Pt admits SANTOS and L hip pain. Pt currently on dobutamine drip, but is OOB in chair. Pt states he is able to lay flat for short periods of time, but not for a long time. Pt denies fever, chills, chest pain, abd pain, N/V, rest pain, claudication, other complaints. Allergies Allergy/AdvReac Type Severity Reaction Status Date / Time fentanyl Allergy Severe Decreased Verified 09/28/19 13:19 oxygen saturation, low RR, unresponsive midazolam Allergy Severe Decreased Verified 09/28/19 13:19 oxygen saturation, low RR, unresponsive. codeine Allergy Unknown GI SYMPTOMS Verified 09/28/19 13:19 promethazine [From Phenergan] AdvReac Severe severe Verified 09/28/19 13:19 fatigue BRIANA Inhibitors AdvReac Mild cough, Verified 09/28/19 13:19 cefuroxime AdvReac Mild GI SYMPTOMS Verified 09/28/19 13:19 Home Medications Home Medications Medication Instructions Recorded Confirmed Type clopidogrel [Plavix] 75 mg PO QAM 08/16/18 09/28/19 History coenzyme Q10 [Co Q-10] 10 mg PO QAM 08/16/18 09/28/19 History cyanocobalamin (vitamin B-12) 1,000 mcg PO QAM 08/16/18 09/28/19 History ferrous gluconate 324 mg PO QAM 08/16/18 09/28/19 History multivitamin [Multiple Vitamins] 1 tab PO QAM 08/16/18 09/28/19 History nitroglycerin [Nitrostat] 0.4 mg SUBLINGUAL UD PRN 08/16/18 09/28/19 History rosuvastatin [Crestor] 20 mg PO QAM 08/16/18 09/28/19 History sertraline 50 mg PO QAM 08/16/18 09/28/19 History glipizide 2.5 mg PO BID #30 tab 02/01/19 09/28/19 Rx dextromethorphan-guaifenesin 1 tab PO Q12H PRN 03/17/19 09/28/19 History [Mucinex DM] testosterone 1 packet TRANSDERMAL DAILY 03/17/19 09/28/19 History warfarin 5 mg PO 6XWK 03/17/19 09/28/19 History torsemide 100 mg PO DAILY 05/02/19 09/28/19 History pantoprazole 40 mg PO BID 30 Days #60 tab 07/28/19 09/28/19 Rx metoprolol succinate 100 mg PO BID 09/28/19 09/28/19 History warfarin 2.5 mg PO WK 09/28/19 09/28/19 History Patient History Medical History Anemia in chronic kidney disease (Chronic) Anticoagulant long-term use (Chronic) Ascites (Resolved) Basal cell carcinoma (Chronic) CAD (coronary artery disease) (Chronic) "2005 - PCI to LAD cath 2011 - no significant obstructive disease" CAD (coronary artery disease) (Chronic) Chronic systolic heart failure (Chronic) Cirrhosis of liver (Chronic) CKD (chronic kidney disease), stage IV (Chronic) CVA (cerebral vascular accident) (Chronic) Depression (Chronic) DMII (diabetes mellitus, type 2) (Chronic) Gross hematuria (Resolved) History of renal carcinoma (Chronic) HTN (hypertension) (Chronic) Ischemic cardiomyopathy (Chronic) Myocardial infarction Pericardial effusion (Resolved) SBP (spontaneous bacterial peritonitis) (Resolved) Squamous cell carcinoma (Chronic) V tach (Chronic) "s/p AICD placement" Surgical History History of cataract surgery (Chronic) History of prior ablation treatment (Chronic) CT guided tissue ablation R kidney S/P ICD (internal cardiac defibrillator) procedure (Chronic) Family History Father Coronary heart disease Mother Coronary heart disease Social History Preferred Language: Divehi Communication Ability: Effective Visual Impairment: No Limitations Real Estate Investor Required: No Beliefs That Will Affect Care: None marital status: Current Living Situation: Spouse and Family Other Information That Helps Us Care for You: No Feels Safe at Home: Yes Safety Concerns: Feels Safe At This Time Smoking Status: Former smoker Tobacco Type: cigarettes ; Do You Dip or Chew Tobacco: Yes ; Second Hand Exposure: No ; Tobacco Cessation Education Requested by Patient: No Hx Alcohol Use: No Hx Substance Use: No Physical Exam Constitutional: WD/WN, vitals as above + ill appearing (chronically), + thin, + disheveled and cooperative; not in distress and not combative Eyes: PERRL, conjunctivae normal, anicteric sclerae ENMT: external ear and nose normal, oropharynx normal Ears: + hearing impairment Neck: trachea midline Respiratory: normal respiratory effort (on oxygen at 2 LPM) Auscultation: + diminished lung sounds and + crackles Cardiovascular: Rate/Rhythm: + irregularly irregular Vessels: posterior tibial pulses present, dorsalis pedis pulses present, brachial pulses present and radial pulses present; + abnormal peripheral pulses Extremities: normal capillary refill and + edema (LLE) Gastrointestinal (Abdomen): normal bowel sounds, soft, nontender, no hepatosplenomegaly Skin: no rashes, warm and dry + incision (L hip incision) Neurologic: moves all extremities and awake; no focal motor deficits and not confused Psychiatric: A+Ox3, euthymic affect Orientation: cooperative Eye Contact: good eye contact Results & Data Vital Signs (Past 12 Hours) Vital Signs Temp Pulse Pulse Pulse Resp BP BP 10/03/19 11:26 36.6 C 89 18 107/54 L 10/03/19 07:12 36.4 C L 87 20 113/68 10/03/19 05:46 36.4 C L 96 H 116/70 10/03/19 05:11 36.6 C 88 101/53 L 10/03/19 04:11 36.8 C 97 H 21 108/64 10/03/19 03:56 36.6 C 94 H 20 10/03/19 03:40 36.6 C 90 90 19 105/62 105/62 10/03/19 02:58 36.6 C 100 H 20 103/64 10/03/19 01:58 36.5 C 95 H 101/61 10/03/19 01:28 36.7 C 92 H 20 106/64 10/03/19 01:13 36.9 C 104 H 20 97/58 L 10/03/19 00:56 36.8 C 92 H 16 98/53 L 10/03/19 00:09 86 Pulse Ox 10/03/19 11:26 98 10/03/19 07:12 99 10/03/19 05:46 99 10/03/19 05:11 100 10/03/19 04:11 100 10/03/19 03:56 10/03/19 03:40 100 10/03/19 02:58 100 10/03/19 01:58 96 10/03/19 01:28 100 10/03/19 01:13 100 10/03/19 00:56 100 10/03/19 00:09
[2019-10-03] MEDS ORDERED: FUROSEMIDE 60 MG in SYRINGE 0 ML IV ONE ×2 (13:00→18:00)
--- NOTE | 2019-10-03 13:55 | Anesthesiology Consultation ---
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 He underwent left hip hemiarthroplasty on 09/29/[address] Torres for an acute hip fracture; he was a GA with 7.5 ETT and grade 1 view with a Mac3. He did well throughout the perioperative period, but continues to have worsening renal function and is now scheduled for PermCath placement. He is currently on a dobutamine drip but has been OOB to chair. Pt will need to be evaluated the morning of surgery, as anesthetic plan will be determined by his ability to lie flat and the degree of volume overload at the time of surgery. In addition, patient remains on plavix and has an increased bleeding risk with most recent Hgb of 8. Type and screen out of date. Therefore, will place an o rder for updated type and screen for day of surgery. History Surgery Operation Date: 09/29/19 07:30 Proposed Procedures p Left Hemiarthroplasty Hip - Aditya Torres MD Operation Date: 09/29/19 15:30 Proposed Procedures p Esophagogastroduodenoscopy Dr Pierce - Celso Pierce MD Operation Date: 10/04/19 12:30 Proposed Procedures p Perm Catheter Placement - Eric Valencia MD Height/Weight Height: 5 ft 10 in Weight: 90.7 kg Allergies Allergy/AdvReac Type Severity Reaction Status Date / Time fentanyl Allergy Severe Decreased Verified 09/28/19 13:19 oxygen saturation, low RR, unresponsive midazolam Allergy Severe Decreased Verified 09/28/19 13:19 oxygen saturation, low RR, unresponsive. codeine Allergy Unknown GI SYMPTOMS Verified 09/28/19 13:19 promethazine [From Phenergan] AdvReac Severe severe Verified 09/28/19 13:19 fatigue BRIANA Inhibitors AdvReac Mild cough, Verified 09/28/19 13:19 cefuroxime AdvReac Mild GI SYMPTOMS Verified 09/28/19 13:19 Medications Home Medications Medication Instructions Recorded Confirmed Last Taken clopidogrel [Plavix] 75 mg PO QAM 08/16/18 09/28/19 08/27/19 coenzyme Q10 [Co Q-10] 10 mg PO QAM 0909/28/19 08/27/19 cyanocobalamin (vitamin B-12) 1,000 mcg PO QAM 08/16/18 09/28/19 08/27/19 ferrous gluconate 324 mg PO QAM 08/16/18 09/28/19 08/27/19 multivitamin [Multiple Vitamins] 1 tab PO QAM 08/16/18 09/28/19 08/27/19 nitroglycerin [Nitrostat] 0.4 mg SUBLINGUAL UD PRN 08/16/18 09/28/19 05/02/19 rosuvastatin [Crestor] 20 mg PO QAM 08/16/18 09/28/19 08/27/19 sertraline 50 mg PO QAM 08/16/18 09/28/19 08/27/19 glipizide 2.5 mg PO BID #30 tab 02/01/19 09/28/19 08/27/19 dextromethorphan-guaifenesin 1 tab PO Q12H PRN 03/17/19 09/28/19 05/02/19 [Mucinex DM] testosterone 1 packet TRANSDERMAL DAILY 03/17/19 09/28/19 05/02/19 warfarin 5 mg PO 6XWK 03/17/19 09/28/19 08/26/19 torsemide 100 mg PO DAILY 05/02/19 09/28/19 05/01/19 pantoprazole 40 mg PO BID 30 Days #60 tab 07/28/19 09/28/19 08/27/19 metoprolol succinate 100 mg PO BID 09/28/19 09/28/19 Unknown warfarin 2.5 mg PO WK 09/28/19 09/28/19 Unknown Active Medications Generic Name Dose Route Start Last Admin Trade Name Freq PRN Reason Stop Dose Admin Clopidogrel Bisulfate 75 mg 09/30/19 09:00 10/03/19 10:58 Plavix PO 10/30/19 08:59 Not Given QAM PAVAN Dextrose 25 - 50 ml 09/28/19 17:04 10/01/19 03:09 Dextrose 50% IV 10/28/19 17:03 25 ml UD PRN Administration Hypoglycemia Protocol Protocol Ferrous Gluconate 324 mg 09/29/19 09:00 10/03/19 07:37 Ferrous Gluconate PO 10/29/19 08:59 324 mg QAM PAVAN Administration Piperacillin Sod/Tazobactam 115 mls @ 28.75 mls/hr 10/01/19 05:00 10/03/19 09:23 Sod 3.375 gm/ Dextrose IV 10/07/19 20:59 Infused Q12H PAVAN Infusion Protocol Acetaminophen 1,000 mg in 100 mls @ 400 mls/hr 10/01/19 09:00 10/03/19 09:18 Ofirmev IV 10/04/19 08:59 Infused BID PAVAN Infusion Protocol Dobutamine HCl/Dextrose 500 mg in 250 mls @ 5.1 mls/hr 10/01/19 14:00 10/03/19 12:21 Dobutamine / D5w IV 10/31/19 13:59 2 mcg/kg/min .Q24H PAVAN 5.1 mls/hr Administration Protocol 2 MCG/KG/MIN Insulin Aspart 0 units 09/28/19 18:00 10/03/19 12:27 Novolog Flexpen SC 10/28/19 17:59 Not Given ACHS PAVAN Lansoprazole 30 mg 10/02/19 21:00 10/03/19 07:37 Prevacid PO 11/01/19 20:59 30 mg BID PAVAN Administration Metoprolol Succinate 100 mg 09/28/19 21:00 10/03/19 07:36 Toprol Xl PO 10/28/19 20:59 100 mg BID PAVAN Administration Testosteroine Gel~ 1 ea 10/01/19 09:00 10/03/19 09:47 Non-Formulary TOP 10/31/19 08:59 1 btl Patient's Own Med DAILY PAVAN Administration Polyethylene Glycol 17 gm 10/03/19 09:00 10/03/19 07:39 Miralax Powder Packet PO 11/02/19 08:59 17 gm DAILY PAVAN Administration Rosuvastatin Calcium 20 mg 09/29/19 09:00 10/03/19 07:37 Crestor PO 10/29/19 08:59 20 mg QAM PAVAN Administration Sennosides 17.2 mg 09/29/19 21:00 10/02/19 19:52 Senokot PO 10/29/19 20:59 17.2 mg HS PAVAN Administration Sertraline HCl 50 mg 09/29/19 09:00 10/03/19 07:37 Zoloft PO 10/29/19 08:59 50 mg QAM PAVAN Administration Tamsulosin HCl 0.4 mg 09/29/19 17:07 09/30/19 08:52 Flomax PO 10/29/19 17:06 0.4 mg QAM PRN Administration unable to void Tramadol HCl 50 mg 09/28/19 17:04 09/29/19 08:49 Ultram PO 10/28/19 17:03 50 mg Q4H PRN Administration Mild Pain NPO Date Last Intake of Fluids: 09/29/19 Time Last Intake of Fluids: 08:00 Date Last Intake of Solids: 09/28/19 Time Last Intake of Solids: 17:30 Past Medical History Medical History Anemia in chronic kidney disease (Chronic) Anticoagulant long-term use (Chronic) Ascites (Resolved) Basal cell carcinoma (Chronic) CAD (coronary artery disease) (Chronic) "2005 - PCI to LAD cath 2011 - no significant obstructive disease" CAD (coronary artery disease) (Chronic) Chronic systolic heart failure (Chronic) Cirrhosis of liver (Chronic) CKD (chronic kidney disease), stage IV (Chronic) CVA (cerebral vascular accident) (Chronic) Depression (Chronic) DMII (diabetes mellitus, type 2) (Chronic) Gross hematuria (Resolved) History of renal carcinoma (Chronic) HTN (hypertension) (Chronic) Ischemic cardiomyopathy (Chronic) Myocardial infarction Pericardial effusion (Resolved) SBP (spontaneous bacterial peritonitis) (Resolved) Squamous cell carcinoma (Chronic) V tach (Chronic) "s/p AICD placement" Past Family History Family History Father Coronary heart disease Mother Coronary heart disease Past Surgical History Surgical History History of cataract surgery (Chronic) History of prior ablation treatment (Chronic) CT guided tissue ablation R kidney S/P ICD (internal cardiac defibrillator) procedure (Chronic) Social History Smoking Status: Former smoker tobacco type: cigarettes Do You Dip or Chew Tobacco: Yes Hx Alcohol Use: No alcohol intake frequency: other Hx Substance Use: No substance use type: does not use Physical Exam Vital Signs Last Vital Signs Temp 36.6 C 10/03/19 11:26 Pulse 89 10/03/19 11:26 Resp 18 10/03/19 11:26 BP 107/54 L 10/03/19 11:26 Pulse Ox 98 10/03/19 11:26 Testing Laboratory Results 10/03/19 06:44 10/03/19 06:44 PT 23.5 Seconds (9.0-12.0) H 10/02/19 20:05 INR 2.4 (0.9-1.1) H 10/02/19 20:05 APTT 60.1 Seconds (21.0-31.0) H* 10/02/19 20:05 Hemoglobin A1c 5.5 % (4.5-5.6) 09/29/19 06:03 Urine Color Yellow 09/28/19 15:30 Urine Appearance Cloudy (Clear) A 09/28/19 15:30 Urine pH 5.0 (4.5-7.5) 09/28/19 15:30 Ur Specific [place] 1.015 (1.000-1.030) 09/28/19 15:30 Urine Protein 1+ (Negative) H 09/28/19 15:30 Urine Glucose (UA) Negative (Negative) 09/28/19 15:30 Urine Ketones Negative (Negative) 09/28/19 15:30 Urine Nitrite Negative (Negative) 09/28/19 15:30 Ur Leukocyte Esterase Negative (Negative) 09/28/19 15:30 Urine WBC (Auto) 1-5 /hpf (0-5) 09/28/19 15:30 Urine RBC (Auto) 5-10 /hpf (0-4) H 09/28/19 15:30 U Hyaline Cast (Auto) 1-5 /lpf (0-5) 09/28/19 15:30 U Epithel Cells (Auto) 20-30 /lpf (0-5) H 09/28/19 15:30 Urine Bacteria (Auto) Negative (Negative) 09/28/19 15:30 Blood Type A Positive 09/28/19 11:58 Antibody Screen NEGATIVE 09/28/19 11:58 10/03/19 10/03/19 11:27 07:14 POC Glucose 92 80 Electrocardiogram Date: 09/29/19 Findings: + AFIB @ Premature ventricular or aberrantly conducted complexes, Right bundle branch block, Possible Inferior infarct (cited on or before 02-FEB-2019) T wave a bnormality, consider lateral ischemia, When compared with ECG of 28-SEP-2019 12:42, No significant change was found Chest X-Ray Date: 09/29/19 Cardiomegaly with pulmonary vascular congestion and probable trace pleural effusions. Echocardiogram Date: 09/29/19 EF: 45-50% Left ventricular systolic function in mildly reduced, flattened septum is consistent with RV pressure/volume overload, apical wall motion abnormality may reflect pacemaker activation, the right ventricle is severely dilated, the right ventricular systolic function is moderately reduced, moderate mitral regurgitation, severe tricuspid regurgitation, dilated inferior vena cava with reduced collapsibility with sniff indicates an elevated right atrial pressure of 15 mmHg
--- NOTE | 2019-10-03 21:59 | Hospitalist Progress Note ---
Date of Service October 03, 2019 Assessment & Plan (1) Fall: (2) Closed fracture of left hip: Mr. Cottrell is an 79-year-old male who has significant PMH of CAD with history of stent 2012, chronic combined systolic and diastolic CHF, chronic atrial fibrillation anticoagulated on warfarin, history of VTACH s/p AICD, history of CVA, HTN, HLD, CKD stage IV, T2DM, history of right clear-cell kidney CA s/p ablation, chronic gastritis who presents to [facility] after sustaining mechanical fall at home prior to arrival. In ED, left hip x-ray which revealed subcapital left hip fracture. Hemoglobin and hematocrit decreased from baseline at 6.9 and 21.8, elevated INR 4.8, A/C CKD-4 BUN/creatinine 58/3.79 Chest x-ray revealed pulmonary vascular congestion and probable trace pleural effusions. He remained hemodynamically stable while in ED. - transfused 1 unit PRBC. Emesis in ED tested Heme positive Admitted to PCU to optimize co morbidities including acute on chronic anemia, acute on chronic CKD stage IV, chronic gastritis with hemorrhage, supratherapeutic INR on warfarin Orthopedics Dr. Torres, consulted pre op antibiotics with cefazolin - pt has GI side effects to oral ceftin but no anaphylaxis reported Thorough discussion between multiple subspecialties, including cardiology, nephrology, GI, given patient's significant co-morbidities, however agreed that it is still in the best patient's interest to proceed with the surgery. Now pt s/p Left cemented bipolar hip arthroplasty w/ Dr. Torres (09/29/2019) Patient tolerated procedure well, examined postop, vital signs good within goals, family updated at the bedside (08/30) patient was hypotensive in the evening, discussed with ICU close monitoring overnight and possible need for upgrade to the ICU. Received 1 unit of blood, and was started on Zosyn. patient did well overnight, and did not require upgrade to the ICU however today continues to be hypotensive and after discussion with his project coordinator rn and forensic accountant, decided to start him on dobutamine (08/31). (3) Anemia: Likely combination of anemia of chronic disease due to CKD stage IV, and blood loss anemia due to known gastritis, acute blood loss (expected) post-surg., anemia H&H 6.9 and 21.8 on a, admission Received multiple pRBCs, with IV lasix Received 1 unit of PRBCs again on (09/30) Current Hgb~ 8, stable Continue PPI Goal Hgb >8, baseline Hgb ~ 8 (4) Chronic gastritis: Recent EGD last admission 07/26 d/t anemia EGD revealed chronic gastritis with hemorrhage - recommended PPI BID - pt has been complaint with this Patient had episode of emesis in ED which was heme positive Consulted gastroenterology-appreciate their input, GI recommended EGD, however anesthesia would be presenting higher risk for the patient, therefore after discussion with multiple subspecialties, decided to proceed with the surgery, pt will follow up with a GI service afterwards. GI service did provide their assessment, given patient's cirrhosis patient has high risk of mortality postop (17% mortality risk in the first 7 days after surgery, 58 risk mortality risk is 30 days), see GI note for more details Continue PPI (5) Acute worsening of stage 4 chronic kidney disease: TOBIN on CKD baseline cr 2.8-3.0 bun/cr 58/3.79,on admission likely worsened in setting of hypovolemia Per family patient was to undergo AV fistula next week (prior to admission) Consulted nephrology, Dr. Martin due to worsened anemia along with assistance in volume status management given advanced CKD Worsening renal function post-op and difficult to manage volume status While pt on dobutamine,tolerated IV lasix, however given poor urine output and worsening renal function, discussed dialysis - ongoing discussion w/ nephrology, patient and family Plan for temporary line placement this AM, pt's not in agreement, plan to consult vascular surg. for perm. dialysis cath (6) Chronic atrial fibrillation: Currently rate controlled on metoprolol succinate 100 mg twice daily Supratherapeutic INR 4.8 (on admission), IV vitamin K 10 mg given in ED Hold Coumadin for now - consulted cardiology for preop clearance given hx of chronic afib, hx of cva, CAD, S-CHF Dr. Alexander evaluated patient in the morning, preop, and cooperated with clinical discussion about proceeding with surgery despite patient's multiple risk factors and comorbidities. See more details in cardiology note. Cardiology continues to follow, appreciate their input, discussed starting pressor support, patient was started on dobutamine peripherally (08/31) (7) Chronic systolic heart failure: Secondary to ischemic cardiomyopathy On outpatient regimen of torsemide 100 mg daily, metoprolol Continue metoprolol, hold torsemide for now -will continue to reevaluate volume status, IV lasix given prn, pt somewhat responded to IV diuretics but given his worsening renal function, does not seem to be adequate and dialysis is being discussed Monitor daily weight Strict I's and O's Heart healthy, low-sodium diet Echo (09/29), EF 40-45%, fluid overload, mild syst. LV dysfunction (8) CAD (coronary artery disease): No current chest pain or shortness of breath History of stent in 2011 As outpatient was on Plavix, Coumadin, statin, metoprolol Hold Coumadin in setting of supratherapeutic INR and anemia cont. Plavix Continue statin and metoprolol echocardiogram as above (9) HTN (hypertension): Pt actually hypotensive post-op, now requiring dobutamine support (since 08/31), d/t worsening renal failure and fluid overload prev. thought d/t anemia, also concern for aspiration (antibiotics started) At home prev. on metoprolol and torsemide Hold torsemide for now, monitor volume status closely, can use IV Lasix prn (10) DMII (diabetes mellitus, type 2): Last A1c 5.8 On oral glipizide as outpatient Hold glipizide, placed on NovoLog per protocol (11) S/P ICD (internal cardiac defibrillator) procedure: hx of Vtach AICD in place (12) DVT prophylaxis: SCD/TEDS s/p IV Vit K x 10mg due to supratherapeutic INR 4.8 (on admission) Hold warfarin due to likely procedure Disposition: PCU /Tele, case management consulted Follow-up: PCP Dr. Thomas upon discharge Subjective No acute events overnight. Pt denies any fever, chills, chest pain, shortness of breath, palpitations, abd. pain, nausea or vomiting. Pt is no longer somnolent, he is alert and oriented x3, answers all questions appropriately and cooperates well w/ phys. exam. He also tolerates PO intake. This AM planned for possible temporary dialysis line placement, pt's not in agreement, discussed other options, now plan for permanent dialysis line placement w/ vascular. Pt and his daughter (who is his POA) are in agreement and wish to proceed w/dialysis line placement. Review of Systems Review of Systems: All systems reviewed & are unremarkable except as noted in HPI & below Constitutional: no fever and no chills Respiratory: no cough, no dyspnea and no pain on inspiration Cardiovascular: no chest pain and no palpitations Gastrointestinal: no abdominal pain, no nausea and no vomiting Physical Exam Constitutional: well developed and + ill appearing; no acute distress Eyes: PERRL, conjunctivae normal, anicteric sclerae ENMT: external ear and nose normal, oropharynx normal Neck: trachea midline, no thyromegaly Respiratory: normal respiratory effort; no respiratory distress, no labored breathing and no retractions Auscultation: + diminished lung sounds Cardiovascular: Rate/Rhythm: + irregularly irregular Heart Sounds: + murmur (soft. syst.) Chest (Breasts): Chest: normal inspection of chest Gastrointestinal (Abdomen): Inspection/Auscultation: abdomen normal to inspection, + abdomen distended (mildly) and normal bowel sounds Percussion/Palpation: abdomen soft; abdomen nontender and no guarding Musculoskeletal: Head/Neck/Chest: normocephalic, head atraumatic and neck supple moves all extremities spontaneously Skin: no rashes, warm and dry Neurologic: Cranial Nerves: PERRL, EOM intact bilaterally and normal facial strength Psychiatric: A+Ox3, euthymic affect Results & Data Vital Signs (Past 12 Hours) Vital Signs Temp Pulse Pulse Resp BP BP Pulse Ox 10/03/19 19:43 36.9 C 100 H 18 97/54 L 100 10/03/19 16:04 37.0 C 82 18 104/64 99 10/03/19 11:26 36.6 C 89 18 107/54 L 98 Laboratory Results 10/03/19 10/03/19 10/03/19 Range/Units 20:20 15:58 14:49 WBC (4.8-10.8) K/uL RBC (4.7-6.1) M/uL Hgb (14.0-18.0) g/dL Hct (42-52) % MCV (80-100) fL MCH (25-34) pg MCHC (32-36) g/dL RDW Std Deviation (36.4-46.3) fL RDW Coeff of Dung (11.5-14.5) % Plt Count (130-400) K/uL MPV (7.4-10.4) fL Sodium (136-145) mmol/L Potassium (3.5-5.1) mmol/L Chloride (98-107) mmol/L Carbon Dioxide (21-32) mmol/L Anion Gap (3-11) BUN (7-18) mg/dl Creatinine (0.6-1.4) mg/dl Est Cr Clr Drug Dosing ml/min Est GFR ( Amer) Est GFR (Non-Af Amer) BUN/Creatinine Ratio (10-20) Glucose (70-99) mg/dl POC Glucose 95 84 (70-99) Calcium (8.5-10.1) mg/dl Blood Type A Positive Antibody Screen NEGATIVE 10/03/19 10/03/19 10/03/19 Range/Units 11:27 07:14 06:44 WBC (4.8-10.8) K/uL RBC (4.7-6.1) M/uL Hgb (14.0-18.0) g/dL Hct (42-52) % MCV (80-100) fL MCH (25-34) pg MCHC (32-36) g/dL RDW Std Deviation (36.4-46.3) fL RDW Coeff of Dung (11.5-14.5) % Plt Count (130-400) K/uL MPV (7.4-10.4) fL Sodium 134 L (136-145) mmol/L Potassium 3.6 (3.5-5.1) mmol/L Chloride 102 (98-107) mmol/L Carbon Dioxide 23 (21-32) mmol/L Anion Gap 9.0 (3-11) BUN 87 H (7-18) mg/dl Creatinine 6.10 H* (0.6-1.4) mg/dl Est Cr Clr Drug Dosing 10.9 ml/min Est GFR ( Amer) 9.2 Est GFR (Non-Af Amer) 8.0 BUN/Creatinine Ratio 14.2 (10-20) Glucose 80 (70-99) mg/dl POC Glucose 92 80 (70-99) Calcium 8.5 (8.5-10.1) mg/dl Blood Type Antibody Screen 10/03/19 Range/Units 06:44 WBC 7.17 (4.8-10.8) K/uL RBC 2.79 L (4.7-6.1) M/uL Hgb 8.0 L (14.0-18.0) g/dL Hct 24.6 L (42-52) % MCV 88.2 (80-100) fL MCH 28.7 (25-34) pg MCHC 32.5 (32-36) g/dL RDW Std Deviation 50.6 H (36.4-46.3) fL RDW Coeff of Dung 15.7 H (11.5-14.5) % Plt Count 104 L (130-400) K/uL MPV 9.7 (7.4-10.4) fL Sodium (136-145) mmol/L Potassium (3.5-5.1) mmol/L Chloride (98-107) mmol/L Carbon Dioxide (21-32) mmol/L Anion Gap (3-11) BUN (7-18) mg/dl Creatinine (0.6-1.4) mg/dl Est Cr Clr Drug Dosing ml/min Est GFR ( Amer) Est GFR (Non-Af Amer) BUN/Creatinine Ratio (10-20) Glucose (70-99) mg/dl POC Glucose (70-99) Calcium (8.5-10.1) mg/dl Blood Type Antibody Screen Medications Administered Current Inpatient Medications Bisacodyl (Dulcolax) 10 mg NC DAILY PRN PRN Reason: Constipation Stop: 10/28/19 17:03 Clopidogrel Bisulfate (Plavix) 75 mg PO [facility] Stop: 10/30/19 08:59 Last Admin: 10/03/19 10:58 Dose: Not Given Documented by: Dextrose (Dextrose 50%) 25 - 50 ml IV UD PRN; Protocol PRN Reason: Hypoglycemia Protocol Stop: 10/28/19 17:03 Last Admin: 10/01/19 03:09 Dose: 25 ml Documented by: Ferrous Gluconate (Ferrous Gluconate) [facility] [place]: 10/29/19 08:59 Last Admin: 10/03/19 07:37 Dose: 324 mg Documented by: Glucagon (Glucagen) 1 mg SQ UD PRN; Protocol PRN Reason: Hypoglycemia Protocol Stop: 10/28/19 17:03 Glucose (Glucose 40%) 15 - 30 gm PO UD PRN; Protocol PRN Reason: Hypoglycemia Protocol Stop: 10/28/19 17:03 Glucose (Dex4 Glucose) 4 - 8 tabs PO UD PRN; Protocol PRN Reason: Hypoglycemia Protocol Stop: 10/28/19 17:03 Guaifenesin (Mucinex) 1,200 mg PO Q12H PRN PRN Reason: Cough Stop: 10/29/19 18:47 Sodium Chloride (Nss) 250 mls @ 15 mls/hr IV .[id number] PRN PRN Reason: For Transfusion Stop: 10/28/19 12:28 Sodium Chloride (Nss) 250 mls @ 15 mls/hr IV .[id number] PRN PRN Reason: For Transfusion Stop: 10/30/19 20:32 Piperacillin Sod/Tazobactam (Sod 3.375 gm/ Dextrose) 115 mls @ 28.75 mls/hr IV Q12H PAVAN; Protocol Stop: 10/07/19 20:59 Last Infusion: 10/03/19 20:26 Dose: Infused Documented by: Acetaminophen (Ofirmev) 1,000 mg in 100 mls @ 400 mls/hr IV BID PAVAN; Protocol Stop: 10/04/19 08:59 Last Infusion: 10/03/19 09:18 Dose: Infused Documented by: Dobutamine HCl/Dextrose (Dobutamine / D5w) 500 mg in 250 mls @ 5.1 mls/hr IV .Q24H PAVAN; Protocol Stop: 10/31/19 13:59 Last Infusion: 10/03/19 19:27 Dose: 2 mcg/kg/min, 5.1 mls/hr Documented by: Sodium Chloride (Nss) 250 mls @ 15 mls/hr IV .[id number] PRN PRN Reason: For Transfusion Stop: 11/01/19 23:36 Insulin Aspart (Novolog Flexpen) 0 units SC ACHS PAVAN Stop: 10/28/19 17:59 Last Admin: 10/03/19 17:02 Dose: Not Given Documented by: Lansoprazole (Prevacid) 30 mg PO BID [facility] Stop: 11/01/19 20:59 Last Admin: 10/03/19 07:37 Dose: 30 mg Documented by: Magnesium Hydroxide (Milk Of Magnesia) 30 ml PO Q6H PRN PRN Reason: Constipation Stop: 10/29/19 17:06 Metoprolol Succinate (Toprol Xl) 100 mg PO BID PAVAN Stop: 10/28/19 20:59 Last Admin: 10/03/19 07:36 Dose: 100 mg Documented by: Miscellaneous (Carbohydrates For Hypoglycemia) 15 - 30 gm PO UD PRN PRN Reason: Hypoglycemia Protocol Stop: 10/28/19 17:03 Miscellaneous Information (Consult) 1 ea N/A UD PRN PRN Reason: Consult Stop: 10/30/19 20:33 Morphine Sulfate (Morphine Sulfate) 2 mg IV Q2H PRN PRN Reason: MODERATE Pain (Scale 4,5,6) Stop: 10/12/19 17:03 Naloxone HCl (Narcan) 0.1 mg IV Q5M PRN PRN Reason: Oversedation/Resp Depression Stop: 10/29/19 17:06 Nitroglycerin (Nitrostat) 0.4 mg SL UD PRN PRN Reason: Chest Pain Stop: 10/29/19 17:06 Testosteroine Gel~ Non-Formulary Patient's Own Med 1 ea TOP DAILY PAVAN Stop: 10/31/19 08:59 Last Admin: 10/03/19 09:47 Dose: 1 btl Documented by: Ondansetron HCl (Zofran) 4 mg IV Q6H PRN PRN Reason: Nausea And Vomiting Stop: 10/29/19 17:06 Polyethylene Glycol (Miralax Powder Packet) 17 gm PO DAILY PAVAN Stop: 11/02/19 08:59 Last Admin: 10/03/19 07:39 Dose: 17 gm Documented by: Rosuvastatin Calcium (Crestor) 20 mg PO QAM PAVAN Stop: 10/29/19 08:59 Last Admin: 10/03/19 07:37 Dose: 20 mg Documented by: Sennosides (Senokot) 17.2 mg PO HS PAVAN Stop: 10/29/19 20:59 Last Admin: 10/02/19 19:52 Dose: 17.2 mg Documented by: Sertraline HCl (Zoloft) 50 mg PO QAM PAVAN Stop: 10/29/19 08:59 Last Admin: 10/03/19 07:37 Dose: 50 mg Documented by: Tamsulosin HCl (Flomax) 0.4 mg PO QAM PRN PRN Reason: unable to void Stop: 10/29/19 17:06 Last Admin: 09/30/19 08:52 Dose: 0.4 mg Documented by: Tramadol HCl (Ultram) 50 mg PO Q4H PRN PRN Reason: Mild Pain Stop: 10/28/19 17:03 Last Admin: 09/29/19 08:49 Dose: 50 mg Documented by: (1) DMII (diabetes mellitus, type 2) Diabetes mellitus complication status: without complication Diabetes mellitus exterminator termite insulin use: without detention use Qualified Code(s): E11.9 - Type 2 diabetes mellitus without complications (2) CAD (coronary artery disease) Associated angina: without angina Coronary Disease-Associated Artery/Lesion type: [place] artery [place] vs. transplanted heart: [place] heart Qualified Code(s): I25.10 - Atherosclerotic heart disease of [place] coronary artery without angina pectoris (3) Anemia Anemia type: unspecified type Qualified Code(s): D64.9 - Anemia, unspecified (4) Fall Encounter type: initial encounter Qualified Code(s): W19.XXXA - Unspecified fall, initial encounter (5) Closed fracture of left hip Encounter type: initial encounter Qualified Code(s): S72.002A - Fracture of unspecified part of neck of left femur, initial encounter for closed fracture
[2019-10-03] MEDS: SENNA 8.6 MG TAB PO SCH (22:18)
[2019-10-04] MEDS: PIPERACILLIN/TAZOBACTAM 3.375 GM in DEXTROSE 5% 100 ML IV SCH ×2 (04:25→17:16)
[2019-10-04 06:45] LABS: Hematocrit (blood only) 24.5 % (42-52); Mean Corpuscular Hemoglobin 28.9 pg (25-34); Mean Corpuscular Hgb Conc 32.7 g/dL (32-36); Mean Corpuscular Volume 88.4 fL (80-100); Mean Platelet Volume 9.9 fL (7.4-10.4); Platelet Count 116 K/uL (130-400); RDW Coefficient of Variation 15.7 % (11.5-14.5); RDW Standard Deviation 50.9 fL (36.4-46.3); Red Blood Count 2.77 M/uL (4.7-6.1); White Blood Count 8.27 K/uL (4.8-10.8)
[2019-10-04 06:53] LABS: INR 2.5 (0.9-1.1); Prothrombin Time 24.1 Seconds (9.0-12.0)
[2019-10-04 07:26] LABS: BUN Creatinine Ratio 14.2 (10-20); Calcium 8.8 mg/dl (8.5-10.1); Est GFR (African American) 8.8; Est GFR (Non-African American) 7.6; Potassium 3.9 mmol/L (3.5-5.1)
[2019-10-04] MEDS: INSULIN ASPART 100 UNITS/ML 3 ML PEN SC SCH ×4 (08:00→22:08)
[2019-10-04] MEDS ORDERED: HYDROmorphone INJ 0.5 MG/0.5 ML SYR IV PRN (08:17)
--- NOTE | 2019-10-04 08:25 | Hospitalist Progress Note ---
Date of Service October 04, 2019 Assessment & Plan (1) Fall: (2) Closed fracture of left hip: Mr. Cottrell is an 79-year-old male who has significant PMH of CAD with history of stent 2012, chronic combined systolic and diastolic CHF, chronic atrial fibrillation anticoagulated on warfarin, history of VTACH s/p AICD, history of CVA, HTN, HLD, CKD stage IV, T2DM, history of right clear-cell kidney CA s/p ablation, chronic gastritis who presents to [facility] after sustaining mechanical fall at home prior to arrival. In ED patient did have left hip x-ray which revealed subcapital left hip fracture. Hemoglobin and hematocrit decreased from baseline at 6.9 and 21.8, elevated INR 4.8, A/C CKD-4 BUN/creatinine 58/3.79 Chest x-ray revealed pulmonary vascular congestion and probable trace pleural effusions. He remained hemodynamically stable while in ED. He was typed and crossed and transfused 1 unit PRBC. Emesis in ED tested Heme positive Patient received preop antibiotics with cefazolin s/p on 09/28/19 left cemented bipolar hip arthoplasty for left displaced femoral neck fracture by Dr. Aditya Torres Patient was then started on Zosyn for possible aspiration pneumonia, patient persistently hypotensive and now requiring pressor support with dobutamine peripherally Postop care also with associated complication of needing dobutamine to raise blood pressure and worsening chronic kidney disease with plans for perm cath placement and dialysis (3) Anemia: -from combination of anemia of chronic disease due to CKD stage IV, and blood loss anemia due to known gastritis -s/p 2 units PRBC on 09/28/19, 1 unit PRBC on 10/09/19, 1 unit PRBC on 09/30/19 -s/p 2 units Fresh frozen Plasma on 10/03/19 (4) Chronic gastritis: -Recent EGD last admission 07/26/19 due to anemia; EGD revealed chronic gastritis with hemorrhage -patient has been on PPI -on this admission, patient has been seen by gastroenterology and EGD has been deferred (5) Cirrhosis of liver: -well compensated cirrhosis as per gastroenterology note on 10/02/19 (6) Acute worsening of stage 4 chronic kidney disease: -Acute Kidney Injury on CKD -plans for perm cath placement and then dialysis (7) Chronic atrial fibrillation: -Currently rate controlled on metoprolol succinate 100 mg twice daily -Supratherapeutic INR 4.8 on 09/28/19 admission day has been reversed -s/p 2 units Fresh frozen Plasma on 10/03/19 when INR is 2.4 -10/04/19 INR is 2.5 (8) Chronic systolic heart failure: -Secondary to ischemic cardiomyopathy -outpatient regimen of torsemide 100 mg daily and metoprolol mg BID -Continue metoprolol 100 mg BID, hold torsemide for now -patient has been on dobutamine on this admission to augment renal perfusion and left ventricular function -has browning to monitor urine outputs (9) CAD (coronary artery disease): -on metoprolol -on statin -diuretics held -Plavix held as possible upcoming perm cath placement (10) S/P ICD (internal cardiac defibrillator) procedure: -has defibrillator placed in the past because of history of Vtach (11) Hypotension: -patient is on dobutamine (12) DMII (diabetes mellitus, type 2): -Last HbA1c 5.8 -Hold glipizide, is on NovoLog per protocol (13) DVT prophylaxis: SCD/TEDS INR is 2.5 on 10/04/19 warfarin remains held because of possible perm cath placement Follow-up: PCP Dr. Thomas upon hospital discharge Subjective Patient seen with motor vehicle lecturer in the room and affirming patient's desire and plans for permcath placement. Patient on nasal cannula oxygen. breathing appears comfortable. denies acute pain. patient is relatively immobilized because of recent history of hip fracture and repair. There is styrofoam wedge between legs. Legs in SCDs. Browning is in place. Physical Exam Constitutional: cooperative Eyes: PERRL, conjunctivae normal, anicteric sclerae EOM intact bilaterally ENMT: external ear and nose normal, oropharynx normal Neck: normal visual inspection Respiratory: normal respiratory effort Cardiovascular: RRR, no murmur, no edema Gastrointestinal (Abdomen): normal bowel sounds, soft, nontender, no hepatosplenomegaly Musculoskeletal: moves upper extremities. styrofoam wedge between legs. Legs in SCDs Psychiatric: Orientation: cooperative Genitourinary: browning in place Results & Data Vital Signs (Past 12 Hours) Vital Signs Temp Pulse Resp BP BP Pulse Ox 10/04/19 07:30 36.8 C 90 20 105/66 100 10/04/19 04:00 36.9 C 95 H 19 112/65 98 10/04/19 00:40 37.1 C 71 18 94/55 L 98 (1) DMII (diabetes mellitus, type 2) Diabetes mellitus complication status: without complication Diabetes mellitus penitentiary insulin use: without penitentiary use Qualified Code(s): E11.9 - Type 2 diabetes mellitus without complications (2) CAD (coronary artery disease) Associated angina: without angina Coronary Disease-Associated Artery/Lesion type: [place] artery [place] vs. transplanted heart: [place] heart Qualified Code(s): I25.10 - Atherosclerotic heart disease of [place] coronary artery without angina pectoris (3) Anemia Anemia type: unspecified type Qualified Code(s): D64.9 - Anemia, unspecified (4) Fall Encounter type: initial encounter Qualified Code(s): W19.XXXA - Unspecified fall, initial encounter (5) Closed fracture of left hip Encounter type: initial encounter Qualified Code(s): S72.002A - Fracture of unspecified part of neck of left femur, initial encounter for closed fracture
[2019-10-04] MEDS: POLYETHYLENE (MIRALAX) 17 GM PACK PO SCH (08:27)
--- NOTE | 2019-10-04 09:25 | Nephrology Progress Note ---
Date of Service October 04, 2019 Assessment & Plan (1) Acute worsening of stage 4 chronic kidney disease: advanced ckd 4 w/ chronic volume overload and very labile creatinine ranging as OP from upper 2's to mid 3's, most recently 3.8 on 09/25. creatinine w/ another big jump yesterday and plateau'd today at 6.3 and oliguria has for now resolved -strict I/O -trial of lasix on dobutamine >has had increased UOP in response and still w/ ongoing vol OL but tolerating>> for now w/ increased uop, attempt to temporize start of dialysis. while frustrating to have clinical plan change so freque ntly, changes acceptable if we have a chance of avoiding HD (and line in pt w/ fresh ortho hardware) for now; ultimately / longer term he is approaching ESRD. goal is if possible to defer for now. vascular following and their flexibility appreciated -trial of lasix 60 mg IV tid for now -daily bmp -lower FR to 1.5L when taking po and cont <2 gm Na diet >torsemide on hold/d-c'd -consent for dialysis obtained from pt w/ daughter lorraine present and on chart; is not decision maker >>all of above discussed today w/ pt, w/ family, w/ Wang Meza and Annie (2) Fluid overload: at best stable fluid status w/ oliguria > trial of lasix on dobutamine ; UOP has increased past 36 hrs (3) Acute on chronic anemia: Hgb 6.9 on presentation w/ chronic gastritis w/ scant heme + emesis in ER INR 4.8>1.7; pt had actually been bridging w/ lovenox in prep for AVF surgery on 10/02 > per epic, last coumadin dose was to be 09/26, then start lovenox 09/29 >had pRBC 2 units day of OR; had another unit 09/30. GI considering EGD >> post transfusion 10/02, hgb 8.0 this am again -would not initiate procrit w/ fracture/ GI bleeding; again have been urging this as OP and will cont to discuss as OP (4) Closed fracture of left hip: s/p L cemented bipolar hip arthroplasty 09/29 Subjective no events overnight; on dobutamine w/ 60 mg IV lasix x 2 doses he made 1.6L urine; also w/ BM x 5; not sob; still w/ L hip pain; hungry/ NPO Review of Systems Review of Systems: All systems reviewed & are unremarkable except as noted in HPI & below Physical Exam Constitutional: well developed, well nourished, cooperative and comfortable; no acute distress (on 02NC) Eyes: EOM intact bilaterally ENMT: Ears: + hearing impairment; no external ear abnormality Nose: no external nose abnormality Mouth: + dry oral mucous membranes (very dry; mouth breather) Neck: no nuchal rigidity Respiratory: normal respiratory effort and + paradoxical thoraco-abdominal movement Auscultation: + diminished lung sounds Cardiovascular: Rate/Rhythm: + irregularly irregular Heart Sounds: + murmur Vessels: + JVD Extremities: no edema Gastrointestinal (Abdomen): Inspection/Auscultation: normal bowel sounds Percussion/Palpation: abdomen soft; abdomen nontender Musculoskeletal: Extremities: strength 5/5 throughout Skin: no rashes, warm and dry + ecchymosis and + pallor Neurologic: hoffman, fluent speech, no tremor Psychiatric: Orientation: oriented to person and oriented to place Affect: euthymic affect Insight: + limited insight Judgement: + limited judgement Results & Data Vital Signs (Past 12 Hours) Vital Signs Temp Pulse Resp BP BP Pulse Ox 10/04/19 07:30 36.8 C 90 20 105/66 100 10/04/19 04:00 36.9 C 95 H 19 112/65 98 10/04/19 00:40 37.1 C 71 18 94/55 L 98 Laboratory Results 10/04/19 06:06 10/04/19 06:06 (1) Closed fracture of left hip Encounter type: initial encounter Qualified Code(s): S72.002A - Fracture of unspecified part of neck of left femur, initial encounter for closed fracture (2) Fluid overload Hypervolemia type: other Qualified Code(s): E87.79 - Other fluid overload
[2019-10-04] MEDS: ACETAMINOPHEN 325 MG TAB PO PRN ×2 (09:57→17:16)
[2019-10-04] MEDS: LANSOPRAZOLE 30 MG SOLTAB PO SCH ×2 (09:58→20:55)
[2019-10-04] MEDS: FERROUS GLUCONATE 324 MG TAB PO SCH (09:59)
[2019-10-04] MEDS: SERTRALINE HCL 50 MG TABLET PO SCH (09:59)
[2019-10-04] MEDS: ROSUVASTATIN CALCIUM 20 MG TAB PO SCH (10:00)
[2019-10-04] MEDS: METOPROLOL SUCC 50MG EXT REL TAB PO SCH ×2 (10:04→20:55)
[2019-10-04] MEDS: TESTOSTERONE TOP SCH (10:30)
--- NOTE | 2019-10-04 12:00 | Cardiology Progress Note ---
Date of Service October 04, 2019 Assessment & Plan (1) CKD (chronic kidney disease) stage 4, GFR 15-29 ml/min: Patient postoperatively has had worsening renal function No arrhythmias Continue low-dose dobutamine as renal function has plateaued and urine outputs have increased (2) Ischemic cardiomyopathy: (3) S/P ICD (internal cardiac defibrillator) procedure: (4) Anemia: (5) Anticoagulant long-term use: Patient currently off warfarin there is no planned catheter insertion in a.m. we we will consider IV heparin. Holding for now given past history use with bleeding and anemia. Ultimate goal resume warfarin at low therapeutic INR Subjective Patient seen and examined, chart, medications, telemetry reviewed. Patient slightly brighter today Has begun to make urine Physical Exam Constitutional: no acute distress Eyes: PERRL, conjunctivae normal, anicteric sclerae ENMT: external ear and nose normal, oropharynx normal Neck: trachea midline, no thyromegaly Respiratory: normal respiratory effort, lungs clear to auscultation Cardiovascular: Rate/Rhythm: + irregularly irregular Heart Sounds: normal S1, normal S2 and + murmur (Grade 1/6 systolic, no); no gallop Palpation: normal PMI Vessels: normal carotid upstroke and radial pulses present; no JVD and no carotid bruit Extremities: + edema (Trace pedal) Chest (Breasts): Additional Comments: Pacemaker defibrillator without irritation Gastrointestinal (Abdomen): Inspection/Auscultation: + abdomen distended (Mildly) Percussion/Palpation: abdomen soft; no hepatosplenomegaly Skin: no rashes, warm and dry Neurologic: PERRL, EOMI, accommodation nl, no face palsy, no dysarthria Psychiatric: A+Ox3, euthymic affect Results & Data Vital Signs (Past 12 Hours) Vital Signs Temp Pulse Resp BP BP Pulse Ox 10/04/19 10:00 73 113/70 10/04/19 07:30 36.8 C 90 20 105/66 100 10/04/19 04:00 36.9 C 95 H 19 112/65 98 10/04/19 00:40 37.1 C 71 18 94/55 L 98 Laboratory Results Laboratory Results - last 24 hr 10/03/19 10/03/19 10/03/19 14:49 15:58 20:20 WBC RBC Hgb Hct MCV MCH MCHC RDW Std Deviation RDW Coeff of Dung Plt Count MPV PT INR Sodium Potassium Chloride Carbon Dioxide Anion Gap BUN Creatinine Est Cr Clr Drug Dosing Est GFR ( Amer) Est GFR (Non-Af Amer) BUN/Creatinine Ratio Glucose POC Glucose 84 95 Calcium Blood Type A Positive Antibody Screen NEGATIVE 10/04/19 10/04/19 10/04/19 06:03 06:06 06:06 WBC 8.27 RBC 2.77 L Hgb 8.0 L Hct 24.5 L MCV 88.4 MCH 28.9 MCHC 32.7 RDW Std Deviation 50.9 H RDW Coeff of Dung 15.7 H Plt Count 116 L MPV 9.9 PT 24.1 H INR 2.5 H Sodium Potassium Chloride Carbon Dioxide Anion Gap BUN Creatinine Est Cr Clr Drug Dosing Est GFR ( Amer) Est GFR (Non-Af Amer) BUN/Creatinine Ratio Glucose POC Glucose 86 Calcium Blood Type Antibody Screen 10/04/19 06:06 WBC RBC Hgb Hct MCV MCH MCHC RDW Std Deviation RDW Coeff of Dung Plt Count MPV PT INR Sodium 134 L Potassium 3.9 Chloride 101 Carbon Dioxide 20 L Anion Gap 13.0 H BUN 91 H Creatinine 6.32 H* Est Cr Clr Drug Dosing 11.0 Est GFR ( Amer) 8.8 Est GFR (Non-Af Amer) 7.6 BUN/Creatinine Ratio 14.2 Glucose 68 L POC Glucose Calcium 8.8 Blood Type Antibody Screen (1) Anemia Anemia type: unspecified type Qualified Code(s): D64.9 - Anemia, unspecified
--- NOTE | 2019-10-04 12:01 | XRay Report ---
XR chest 1V portable CLINICAL HISTORY: Abnormal chest x-ray. Follow-up study. COMPARISON STUDY: 09/30/2019 FINDINGS: The heart remains enlarged. There is a left subclavian pacer/defibrillator present. There i s persistent elevation of interstitium suggesting mild pulmonary vascular congestion/fluid overload. There are basilar opacities, right more pronounced than left,, likely representing subsegmental atele ctasis.[ IMPRESSION: 1. Cardiomegaly and radiographic evidence of mild pulmonary vascular congestion/fluid overload 2. Bibasilar opacities statistically representing subsegmental atelectasis Electronically signed by: Keaton Cano M.D. 10/04/2019 11:59 AM
[2019-10-04] MEDS: DOBUTamine / D5W 500 MG/250 ML BAG IV SCH (15:03)
[2019-10-04] MEDS: FUROSEMIDE 60 MG in SYRINGE 0 ML IV SCH ×2 (15:04→20:55)
[2019-10-04] MEDS: SENNA 8.6 MG TAB PO SCH (20:55)
--- NOTE | 2019-10-04 21:38 | Progress Note ---
DATE: 10/04/2019 SUBJECTIVE: An 79-year-old gentleman now postop day 5 from a left cemented bipolar hip arthroplasty for fracture. He looks pretty good this afternoon. He is sitting up in his bedside chair and denies any significant pain. OBJECTIVE: VITAL SIGNS: Temperature is 36.6. Vital signs stable. GENERAL: Pleasant elderly male. He is sitting up in bedside chair, talking to his family. He looks comfortable and this is his best he has looked since I have seen him even before surgery. EXTREMITIES: Examination of the left leg reveals it to be well aligned. Dressing is clean, dry, and intact. Just a slight bit of drainage. Fairly mild swelling. He is neurologically intact. LABORATORY DATA: His hemoglobin today is 8.0, which is stable. His creatinine continues to be elevated and continues to slowly elevate. His INR is 2.5. ASSESSMENT: An 79-year-old gentleman 5 days out from a left cemented bipolar hip arthroplasty for fracture, doing orthopedically pretty well. His renal function continues to gradually deteriorate. Clinically, he looks pretty good ____ than I have seen him since he has been hospitalized. PLAN: From the orthopedic standpoint, he can weightbear as tolerated. Should obey hip precautions. We will leave DVT prophylaxis up to the medicine physicians. He should have TEDs and SCDs and anticoagulation as per the medicine service. Continue routine wound care. Any orthopedic questions can be directed to me at [phone].
[2019-10-05] MEDS: INSULIN ASPART 100 UNITS/ML 3 ML PEN SC SCH ×4 (06:12→21:06)
[2019-10-05 06:49] LABS: Hematocrit (blood only) 24.3 % (42-52); Hemoglobin 7.9 g/dL (14.0-18.0); Mean Corpuscular Hemoglobin 28.7 pg (25-34); Mean Corpuscular Hgb Conc 32.5 g/dL (32-36); Mean Corpuscular Volume 88.4 fL (80-100); Mean Platelet Volume 9.9 fL (7.4-10.4); Platelet Count 120 K/uL (130-400); RDW Coefficient of Variation 15.9 % (11.5-14.5); RDW Standard Deviation 51.8 fL (36.4-46.3); Red Blood Count 2.75 M/uL (4.7-6.1); White Blood Count 7.78 K/uL (4.8-10.8)
[2019-10-05] MEDS: POLYETHYLENE (MIRALAX) 17 GM PACK PO SCH (07:15)
[2019-10-05 07:28] LABS: Alanine Aminotransferase < 6 U/L (12-78); Albumin Globulin Ratio 0.7 (0.9-2); Albumin Level 2.6 gm/dl (3.4-5.0); Alkaline Phosphatase 104 U/L (45-117); Aspartate Aminotransferase 38 U/L (15-37); BUN Creatinine Ratio 13.7 (10-20); Bilirubin,Total 0.8 mg/dl (0.2-1); Blood Urea Nitrogen 91 mg/dl (7-18); Calcium 8.6 mg/dl (8.5-10.1); Carbon Dioxide 21 mmol/L (21-32); Chloride 102 mmol/L (98-107); Creatinine Clr Calc Pharmacy 10.5 ml/min; Est GFR (African American) 8.4; Est GFR (Non-African American) 7.2; Glucose 113 mg/dl (70-99); Potassium 3.4 mmol/L (3.5-5.1); Sodium 134 mmol/L (136-145); Total Protein 6.6 gm/dl (6.4-8.2)
[2019-10-05] MEDS ORDERED: POTASSIUM CHLORIDE 20 MEQ TABCR PO STA (08:07)
[2019-10-05] MEDS: METOPROLOL SUCC 50MG EXT REL TAB PO SCH ×2 (09:23→21:04)
[2019-10-05] MEDS: ROSUVASTATIN CALCIUM 20 MG TAB PO SCH (09:23)
[2019-10-05] MEDS: FERROUS GLUCONATE 324 MG TAB PO SCH (09:23)
[2019-10-05] MEDS: LANSOPRAZOLE 30 MG SOLTAB PO SCH ×2 (09:24→21:04)
[2019-10-05] MEDS: SERTRALINE HCL 50 MG TABLET PO SCH (09:24)
[2019-10-05] MEDS: ACETAMINOPHEN 325 MG TAB PO PRN ×2 (09:37→21:04)
[2019-10-05] MEDS: FUROSEMIDE 60 MG in SYRINGE 0 ML IV SCH ×3 (10:41→21:04)
[2019-10-05] MEDS: TESTOSTERONE TOP SCH (10:42)
--- NOTE | 2019-10-05 11:21 | Hospitalist Progress Note ---
Date of Service October 05, 2019 Assessment & Plan (1) Fall: (2) Closed fracture of left hip: Mr. Cottrell is an 79-year-old male who has significant PMH of CAD with history of stent 2012, chronic combined systolic and diastolic CHF, chronic atrial fibrillation anticoagulated on warfarin, history of VTACH s/p AICD, history of CVA, HTN, HLD, CKD stage IV, T2DM, history of right clear-cell kidney CA s/p ablation, chronic gastritis who presents to [facility] after sustaining mechanical fall at home prior to arrival. In ED patient did have left hip x-ray which revealed subcapital left hip fracture. Hemoglobin and hematocrit decreased from baseline at 6.9 and 21.8, elevated INR 4.8, A/C CKD-4 BUN/creatinine 58/3.79 Chest x-ray revealed pulmonary vascular congestion and probable trace pleural effusions. He remained hemodynamically stable while in ED. He was typed and crossed and transfused 1 unit PRBC. Emesis in ED tested Heme positive -Patient received preop antibiotics with cefazolin -s/p on 09/28/19 left cemented bipolar hip arthoplasty for left displaced femoral neck fracture by Dr. Aditya Torres -Patient was then started on Zosyn for possible aspiration pneumonia, patient persistently hypotensive and now requiring pressor support with dobutamine peripherally -Postop care also with associated complication of needing dobutamine to raise blood pressure and worsening chronic kidney disease with concerns for possible plans for perm cath placement and dialysis -As of 10/04/19 to 10/05/19: Zosyn has been stopped on 10/04/19 as no evidence of pneumoniaplans for perm cath has been held off as patient making urine with nephrology instead using Lasix 60 mg IV q8 hours with current dobutamine infusion to encourage more urine output. (3) Anemia: -from combination of anemia of chronic disease due to CKD stage IV, and blood loss anemia due to known gastritis -s/p 2 units PRBC on 09/28/19, 1 unit PRBC on 10/09/19, 1 unit PRBC on 09/30/19 -s/p 2 units Fresh frozen Plasma on 10/03/19 (4) Chronic gastritis: -Recent EGD last admission 07/26/19 due to anemia; EGD revealed chronic gastritis with hemorrhage -patient has been on PPI -on this admission, patient has been seen by gastroenterology and EGD has been deferred (5) Cirrhosis of liver: -well compensated cirrhosis as per gastroenterology note on 10/02/19 (6) Acute worsening of stage 4 chronic kidney disease: Acute Kidney Failure from (Ischemic) Acute tubular necrosis -as per nephrology that his etiology is multifactorial -however, patient with more increased urine output recently -Dr. Martin from nephrology now advising to hold off perm cath and hold off plans for dialysis for now. to increase urine output despite low blood pressures, she also instructed hospitalist to start Lasix 60 mg IV TID with hold order if systolic blood pressure is 85 or less and the diuretics were started on 10/04/19 and ongoing (7) Chronic atrial fibrillation: -Currently rate controlled on metoprolol succinate 100 mg twice daily -Supratherapeutic INR 4.8 on 09/28/19 admission day has been reversed -s/p 2 units Fresh frozen Plasma on 10/03/19 when INR is 2.4 -10/04/19 INR is 2.5 -coumadin remains held as it is unclear if patient may need perm cath and dialysis in immediate future (8) Chronic systolic heart failure: -Secondary to ischemic cardiomyopathy -outpatient regimen of torsemide 100 mg daily and metoprolol mg BID -Continue metoprolol 100 mg BID, hold torsemide for now -patient has been on dobutamine on this admission to augment renal perfusion and left ventricular function -monitor urine outputs (9) CAD (coronary artery disease): -on metoprolol -on statin -diuretics held -Plavix remains held as it is unclear if patient may need perm cath and dialysis in immediate future (10) S/P ICD (internal cardiac defibrillator) procedure: -has defibrillator placed in the past because of history of Vtach (11) Hypotension: -patient is on dobutamine (12) DMII (diabetes mellitus, type 2): -Last HbA1c 5.8 -Hold glipizide, is on NovoLog per protocol (13) DVT prophylaxis: SCD/TEDS INR is 2.5 on 10/04/19 warfarin remains held because of possible perm cath placement Follow-up: PCP Dr. Thomas upon hospital discharge Daughter and Power of insurance attorney Ruchi ([phone]) Subjective Daughter and Power of insurance attorney Ruchi ([phone]) at bedside. Patient does not have the best medical insight. Patient's daughter expresses understanding of current complicated medical course. Patient in goo spirits today. cooperative on exam. does not appear to be in distress. Chart review showing that he has been making urine output but creatinine rising mildly to 6.6. Blood pressures are good while on TID diuresis of Lasix. Continues to be on dobutamine. patient does not complain of acute pain Review of Systems Review of Systems: All systems reviewed & are unremarkable except as noted in HPI & below Physical Exam Constitutional: cooperative Eyes: PERRL, conjunctivae normal, anicteric sclerae EOM intact bilaterally ENMT: external ear and nose normal, oropharynx normal Neck: normal visual inspection Respiratory: normal respiratory effort Cardiovascular: RRR, no murmur, no edema Gastrointestinal (Abdomen): normal bowel sounds, soft, nontender, no hepatosplenomegaly Musculoskeletal: Head/Neck/Chest: normocephalic and head atraumatic Neurologic: awake Psychiatric: Orientation: cooperative Results & Data Vital Signs (Past 12 Hours) Vital Signs Temp Pulse Pulse Resp BP Pulse Ox 10/05/19 08:00 36.8 C 74 18 113/62 94 10/05/19 02:58 37.1 C 87 19 104/62 98 10/05/19 00:17 36.6 C 74 74 20 109/71 100 (1) DMII (diabetes mellitus, type 2) Diabetes mellitus complication status: without complication Diabetes mellitus long term care social worker insulin use: without long-term use Qualified Code(s): E11.9 - Type 2 diabetes mellitus without complications (2) CAD (coronary artery disease) Associated angina: without angina Coronary Disease-Associated Artery/Lesion type: [place] artery [place] vs. transplanted heart: [place] heart Qualified Code(s): I25.10 - Atherosclerotic heart disease of [place] coronary artery without angina pectoris (3) Anemia Anemia type: unspecified type Qualified Code(s): D64.9 - Anemia, unspecified (4) Fall Encounter type: initial encounter Qualified Code(s): W19.XXXA - Unspecified fall, initial encounter (5) Closed fracture of left hip Encounter type: initial encounter Qualified Code(s): S72.002A - Fracture of unspecified part of neck of left femur, initial encounter for closed fracture
[2019-10-05] MEDS: DOBUTamine / D5W 500 MG/250 ML BAG IV SCH (14:20)
--- NOTE | 2019-10-05 14:49 | Cardiology Progress Note ---
Date of Service October 05, 2019 Assessment & Plan (1) CKD (chronic kidney disease) stage 4, GFR 15-29 ml/min: Patient postoperatively has had worsening renal function No arrhythmias Continue low-dose dobutamine . Nephrology following patient likely will proceed to needing dialysis, pos sible transfusion (2) Ischemic cardiomyopathy: (3) S/P ICD (internal cardiac defibrillator) procedure: (4) Anemia: (5) Anticoagulant long-term use: Patient currently off warfarin there is no planned catheter insertion in a.m. we we will consider IV heparin. Holding for now given past history use with bleeding and anemia. Ultimate goal resume warfarin at low therapeutic INR Subjective Patient seen and examined, chart, medications, telemetry reviewed. No acute complaints however patient has been manifesting symptoms of increased presacral and scrotal edema. Continues to make modest amount urine, weights have been stable. No worsening shortness of breath or chest pain Physical Exam Constitutional: no acute distress Eyes: PERRL, conjunctivae normal, anicteric sclerae ENMT: external ear and nose normal, oropharynx normal Neck: trachea midline, no thyromegaly Respiratory: normal respiratory effort, lungs clear to auscultation Cardiovascular: Rate/Rhythm: + irregularly irregular Heart Sounds: normal S1, normal S2 and + murmur (Grade 1/6 systolic, no); no gallop Palpation: normal PMI Vessels: normal carotid upstroke and radial pulses present; no JVD and no carotid bruit Extremities: + edema (Trace pedal) Chest (Breasts): Chest: normal inspection of chest Gastrointestinal (Abdomen): Inspection/Auscultation: + abdomen distended (Mildly) Percussion/Palpation: abdomen soft; no hepatosplenomegaly Skin: no rashes, warm and dry Scrotal edema present Neurologic: PERRL, EOMI, accommodation nl, no face palsy, no dysarthria Psychiatric: A+Ox3, euthymic affect Results & Data Vital Signs (Past 12 Hours) Vital Signs Temp Pulse Pulse Resp BP Pulse Ox 10/05/19 12:02 36.5 C 74 18 113/72 96 10/05/19 08:00 36.8 C 74 18 113/62 94 10/05/19 02:58 37.1 C 87 19 104/62 98 Laboratory Results Laboratory Results - last 24 hr 10/04/19 10/04/19 10/05/19 16:19 21:12 05:50 WBC RBC Hgb Hct MCV MCH MCHC RDW Std Deviation RDW Coeff of Dung Plt Count MPV Sodium Potassium Chloride Carbon Dioxide Anion Gap BUN Creatinine Est Cr Clr Drug Dosing Est GFR ( Amer) Est GFR (Non-Af Amer) BUN/Creatinine Ratio Glucose POC Glucose 80 105 H 126 H Calcium Total Bilirubin AST ALT Alkaline Phosphatase Total Protein Albumin Globulin Albumin/Globulin Ratio 10/05/19 10/05/19 10/05/19 06:29 06:29 07:34 WBC 7.78 RBC 2.75 L Hgb 7.9 L Hct 24.3 L MCV 88.4 MCH 28.7 MCHC 32.5 RDW Std Deviation 51.8 H RDW Coeff of Dung 15.9 H Plt Count 120 L MPV 9.9 Sodium 134 L Potassium 3.4 L Chloride 102 Carbon Dioxide 21 Anion Gap 11.0 BUN 91 H Creatinine 6.60 H* Est Cr Clr Drug Dosing 10.5 Est GFR ( Amer) 8.4 Est GFR (Non-Af Amer) 7.2 BUN/Creatinine Ratio 13.7 Glucose 113 H POC Glucose 121 H Calcium 8.6 Total Bilirubin 0.8 AST 38 H ALT < 6 L Alkaline Phosphatase 104 Total Protein 6.6 Albumin 2.6 L Globulin 4.0 Albumin/Globulin Ratio 0.7 L 10/05/19 11:47 WBC RBC Hgb Hct MCV MCH MCHC RDW Std Deviation RDW Coeff of Dung Plt Count MPV Sodium Potassium Chloride Carbon Dioxide Anion Gap BUN Creatinine Est Cr Clr Drug Dosing Est GFR ( Amer) Est GFR (Non-Af Amer) BUN/Creatinine Ratio Glucose POC Glucose 124 H Calcium Total Bilirubin AST ALT Alkaline Phosphatase Total Protein Albumin Globulin Albumin/Globulin Ratio (1) Anemia Anemia type: unspecified type Qualified Code(s): D64.9 - Anemia, unspecified
--- NOTE | 2019-10-05 17:35 | Nephrology Progress Note ---
Date of Service October 05, 2019 Assessment & Plan (1) Acute worsening of stage 4 chronic kidney disease: advanced ckd 4 w/ chronic volume overload and very labile creatinine ranging as OP from upper 2's to mid 3's, most recently 3.8 on 09/25. creatinine w/ another big jump recently and now in mid 6s and oliguria has for now resolved -strict I/O -trial of lasix on dobutamine >has had increased UOP in response and still w/ ongoing vol OL (eg scrotal edema, lung findings) but tolerating>> for now w/ increased uop, attempt to temporize start of dialysis. while frustrating to have clinical plan change so frequently, changes acceptable if we have a chance of avoiding HD (and line in pt w/ fresh ortho hardware) for now; ultimately / longer term he is approaching ESRD. goal is if possible to defer for now. vascular following and their flexibility appreciated -cont lasix 60 mg IV tid for now -primary service repleted K today -daily bmp -lower FR to 1.5L when taking po and cont <2 gm Na diet >torsemide on hold/d-c'd -consent for dialysis obtained from pt w/ daughter lorraine present and on chart; is not decision maker >>all of above discussed today w/ pt, w/ family, w/ Dr Meza (2) Fluid overload: at best stable fluid status w/ oliguria > trial of lasix on dobutamine ; UOP has increased past 36 hrs (3) Acute on chronic anemia: Hgb 6.9 on presentation w/ chronic gastritis w/ scant heme + emesis in ER INR 4.8>1.7; pt had actually been bridging w/ lovenox in prep for AVF surgery on 10/02 > per epic, last coumadin dose was to be 09/26, then start lovenox 09/29 >had pRBC 2 units day of OR; had another unit 09/30. GI considering EGD >> post transfusion 10/02, hgb 7.9 this am again -would not initiate procrit w/ fracture/ GI bleeding; again have been urging this as OP and will cont to discuss as OP (4) Closed fracture of left hip: s/p L cemented bipolar hip arthroplasty 09/29 Subjective seen on rounds this am at 0830> hungry; denies sob; ongoing hip pain; no confusion Review of Systems Review of Systems: All systems reviewed & are unremarkable except as noted in HPI & below Physical Exam 2 Constitutional: well developed, well nourished, cooperative and comfortable; no acute distress (on 02NC) Eyes: EOM intact bilaterally ENMT: Ears: + hearing impairment; no external ear abnormality Nose: no external nose abnormality Mouth: + dry oral mucous membranes (very dry; mouth breather) Neck: no nuchal rigidity Respiratory: normal respiratory effort and + paradoxical thoraco-abdominal movement Auscultation: + diminished lung sounds Cardiovascular: Rate/Rhythm: + irregularly irregular Heart Sounds: + murmur Vessels: + JVD Extremities: no edema Gastrointestinal (Abdomen): Inspection/Auscultation: normal bowel sounds Percussion/Palpation: abdomen soft; abdomen nontender Musculoskeletal: Extremities: strength 5/5 throughout Skin: no rashes, warm and dry + ecchymosis and + pallor Psychiatric: Orientation: oriented to person and oriented to place Affect: euthymic affect Insight: + limited insight Judgement: + limited judgement Results & Data Vital Signs (Past 12 Hours) Vital Signs Temp Pulse Pulse Resp BP Pulse Ox 10/05/19 16:07 36.7 C 114 H 18 106/61 98 10/05/19 12:02 36.5 C 74 18 113/72 96 10/05/19 08:00 36.8 C 74 18 113/62 94 Laboratory Results 10/05/19 06:29 10/05/19 06:29 (1) Fluid overload Hypervolemia type: other Qualified Code(s): E87.79 - Other fluid overload (2) Closed fracture of left hip Encounter type: initial encounter Qualified Code(s): S72.002A - Fracture of unspecified part of neck of left femur, initial encounter for closed fracture
[2019-10-05] MEDS: SENNA 8.6 MG TAB PO SCH (22:42)
[2019-10-06 06:43] LABS: INR 2.5 (0.9-1.1); Prothrombin Time 23.9 Seconds (9.0-12.0)
[2019-10-06 07:20] LABS: Alanine Aminotransferase < 6 U/L (12-78); Albumin Globulin Ratio 0.6 (0.9-2); Albumin Level 2.5 gm/dl (3.4-5.0); Alkaline Phosphatase 108 U/L (45-117); Aspartate Aminotransferase 34 U/L (15-37); BUN Creatinine Ratio 14.5 (10-20); Bilirubin,Total 0.7 mg/dl (0.2-1); Blood Urea Nitrogen 94 mg/dl (7-18); Calcium 8.6 mg/dl (8.5-10.1); Carbon Dioxide 23 mmol/L (21-32); Chloride 104 mmol/L (98-107); Creatinine Clr Calc Pharmacy 9.3 ml/min; Est GFR (African American) 8.5; Est GFR (Non-African American) 7.3; Globulin 3.9 gm/dl (2.5-4.0); Glucose 99 mg/dl (70-99); Magnesium 2.4 mg/dl (1.8-2.4); Potassium 3.6 mmol/L (3.5-5.1); Sodium 135 mmol/L (136-145); Total Protein 6.4 gm/dl (6.4-8.2)
--- NOTE | 2019-10-06 08:02 | Hospitalist Progress Note ---
Date of Service October 06, 2019 Assessment & Plan (1) Fall: (2) Closed fracture of left hip: Mr. Cottrell is an 79-year-old male who has significant PMH of CAD with history of stent 2012, chronic combined systolic and diastolic CHF, chronic atrial fibrillation anticoagulated on warfarin, history of VTACH s/p AICD, history of CVA, HTN, HLD, CKD stage IV, T2DM, history of right clear-cell kidney CA s/p ablation, chronic gastritis who presents to [facility] after sustaining mechanical fall at home prior to arrival. In ED patient did have left hip x-ray which revealed subcapital left hip fracture. Hemoglobin and hematocrit decreased from baseline at 6.9 and 21.8, elevated INR 4.8, A/C CKD-4 BUN/creatinine 58/3.79 Chest x-ray revealed pulmonary vascular congestion and probable trace pleural effusions. He remained hemodynamically stable while in ED. He was typed and crossed and transfused 1 unit PRBC. Emesis in ED tested Heme positive -Patient received preop antibiotics with cefazolin -s/p on 09/28/19 left cemented bipolar hip arthoplasty for left displaced femoral neck fracture by Dr. Aditya Torres -Patient was then started on Zosyn for possible aspiration pneumonia, patient persistently hypotensive and now requiring pressor support with dobutamine peripherally -Postop care also with associated complication of needing dobutamine to raise blood pressure and worsening chronic kidney disease with concerns for possible plans for perm cath placement and dialysis -As of 10/04/19 to 10/05/19 to 10/06/19: Zosyn has been stopped on 10/04/19 as no evidence of pneumoniaplans for perm cath has been held off as patient making urine with nephrology instead using Lasix 60 mg IV q8 hours with current dobutamine infusion to encourage more urine output. (3) Anemia: -from combination of anemia of chronic disease due to CKD stage IV, and blood loss anemia due to known gastritis -s/p 2 units PRBC on 09/28/19, 1 unit PRBC on 10/09/19, 1 unit PRBC on 09/30/19 -s/p 2 units Fresh frozen Plasma on 10/03/19 (4) Chronic gastritis: -Recent EGD last admission 07/26/19 due to anemia; EGD revealed chronic gastritis with hemorrhage -patient has been on PPI -on this admission, patient has been seen by gastroenterology and EGD has been deferred -loose stools reported: orders placed for FOBT, C.difficile, and stool cultures on 10/06/19 (5) Cirrhosis of liver: -well compensated cirrhosis as per gastroenterology note on 10/02/19 (6) Acute worsening of stage 4 chronic kidney disease: Acute Kidney Failure from (Ischemic) Acute tubular necrosis -as per nephrology that his etiology is multifactorial -however, patient with more increased urine output recently -Dr. Martin from nephrology now advising to hold off perm cath and hold off plans for dialysis for now. to increase urine output despite low blood pressures, she also instructed hospitalist to start Lasix 60 mg IV TID with hold order if systolic blood pressure is 85 or less and the diuretics were started on 10/04/19 and ongoing -recent creatinine remains above 6 (7) Chronic atrial fibrillation: -Currently rate controlled on metoprolol succinate 100 mg twice daily -Supratherapeutic INR 4.8 on 09/28/19 admission day has been reversed -s/p 2 units Fresh frozen Plasma on 10/03/19 when INR is 2.4 -10/04/19 INR is 2.5 -coumadin remains held as it is unclear if patient may need perm cath and dialysis in immediate future -INR on 10/06/19 remains as 2.5 despite not being on coumadin recently (8) Chronic systolic heart failure: -Secondary to ischemic cardiomyopathy -outpatient regimen of torsemide 100 mg daily and metoprolol mg BID -Continue metoprolol 100 mg BID, hold torsemide for now -patient has been on dobutamine on this admission to augment renal perfusion and left ventricular function -continue IV Lasix -monitor urine outputs (9) CAD (coronary artery disease): -on metoprolol -on statin -Plavix remains held as it is unclear if patient may need perm cath and dialysis in immediate future -on IV Lasix (10) S/P ICD (internal cardiac defibrillator) procedure: -has defibrillator placed in the past because of history of Vtach (11) Hypotension: -patient is on dobutamine (12) DMII (diabetes mellitus, type 2): -Last HbA1c 5.8 -Hold glipizide, is on NovoLog per protocol (13) DVT prophylaxis: SCD/TEDS INR is 2.5 on 10/06/19 warfarin remains held because of possible perm cath placement Follow-up: PCP Dr. Thomas upon hospital discharge Daughter and Power of personal injury attorney Ruchi ([phone]) Subjective As per nurse, patient with loose stools recently. Patient denies abdominal pain. No vomiting. He is allowed to eat diet. Patient seen and examined in the bed. As per nurse, patient can weight bear with standing but minimal ambulation and generally sedentary. Patient breathing on room air. denies chest pain. He reports some left hip pain where he had previous operation. His legs are in SCDs. He is more easily able to lift up his right leg than left leg while on the bed Review of Systems Review of Systems: All systems reviewed & are unremarkable except as noted in HPI & below Physical Exam Constitutional: cooperative Eyes: PERRL, conjunctivae normal, anicteric sclerae EOM intact bilaterally ENMT: external ear and nose normal, oropharynx normal Neck: normal visual inspection Respiratory: normal respiratory effort Cardiovascular: Rate/Rhythm: regular rate and + irregularly irregular Gastrointestinal (Abdomen): normal bowel sounds, soft, nontender, no hepatosplenomegaly Musculoskeletal: Head/Neck/Chest: normocephalic and head atraumatic dressing over left hip, left hip tenderness to palpation Neurologic: awake Psychiatric: Orientation: cooperative Genitourinary: browning, swollen scrotal sac Results & Data Vital Signs (Past 12 Hours) Vital Signs Temp Pulse Pulse Resp BP BP Pulse Ox 10/06/19 07:44 37.2 C 97 H 20 107/57 L 95 10/06/19 04:52 36.9 C 93 H 19 90/51 L 95 10/06/19 00:30 37.1 C 98 H 20 98/51 L 96 10/06/19 00:00 101 H 10/05/19 20:45 101 H 10/05/19 20:00 37.0 C 101 H 18 114/62 96 (1) Fall Encounter type: initial encounter Qualified Code(s): W19.XXXA - Unspecified fall, initial encounter (2) Closed fracture of left hip Encounter type: initial encounter Qualified Code(s): S72.002A - Fracture of unspecified part of neck of left femur, initial encounter for closed fracture (3) Anemia Anemia type: unspecified type Qualified Code(s): D64.9 - Anemia, unspecified (4) CAD (coronary artery disease) Coronary Disease-Associated Artery/Lesion type: [place] artery [place] vs. 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
[2019-10-06] MEDS ORDERED: POTASSIUM CHLORIDE 20 MEQ TABCR PO STA (08:44)
--- NOTE | 2019-10-06 09:42 | Cardiology Progress Note ---
Date of Service October 06, 2019 Assessment & Plan (1) CKD (chronic kidney disease) stage 4, GFR 15-29 ml/min: Patient postoperatively has had worsening renal function No arrhythmias Continue low-dose dobutamine Creatinine flat today (2) Ischemic cardiomyopathy: (3) S/P ICD (internal cardiac defibrillator) procedure: (4) Anemia: Hemoglobin 7.9 has had difficulties with gradual decline in the past and required transfusion. Procrit not in use due to history of renal cell carcinoma (5) Anticoagulant long-term use: Patient currently off warfarin there is no planned catheter insertion in a.m. Blood counts trending downward as above Subjective Patient seen and examined, chart, medications, telemetry reviewed. No acute complaints other than dry mouth and complaints regarding fluid restriction. Does continue to make urine. Mentating appropriate Physical Exam Constitutional: no acute distress Eyes: PERRL, conjunctivae normal, anicteric sclerae ENMT: external ear and nose normal, oropharynx normal Neck: trachea midline, no thyromegaly Respiratory: normal respiratory effort, lungs clear to auscultation Cardiovascular: Rate/Rhythm: + irregularly irregular Heart Sounds: normal S1, normal S2 and + murmur (Grade 1/6 systolic, no); no gallop Palpation: normal PMI Vessels: normal carotid upstroke and radial pulses present; no JVD and no carotid bruit Extremities: + edema (Scrotal and abdominal) Chest (Breasts): Chest: normal inspection of chest Gastrointestinal (Abdomen): Inspection/Auscultation: + abdomen distended (Mildly) Percussion/Palpation: abdomen soft; no hepatosplenomegaly Skin: no rashes, warm and dry Neurologic: PERRL, EOMI, accommodation nl, no face palsy, no dysarthria Psychiatric: A+Ox3, euthymic affect Results & Data Vital Signs (Past 12 Hours) Vital Signs Temp Pulse Pulse Resp BP BP Pulse Ox 10/06/19 07:44 37.2 C 97 H 20 107/57 L 95 10/06/19 04:52 36.9 C 93 H 19 90/51 L 95 10/06/19 00:30 37.1 C 98 H 20 98/51 L 96 10/06/19 00:00 101 H (1) Anemia Anemia type: unspecified type Qualified Code(s): D64.9 - Anemia, unspecified
[2019-10-06] MEDS: ROSUVASTATIN CALCIUM 20 MG TAB PO SCH (10:07)
[2019-10-06] MEDS: LANSOPRAZOLE 30 MG SOLTAB PO SCH ×2 (10:08→21:17)
[2019-10-06] MEDS: METOPROLOL SUCC 50MG EXT REL TAB PO SCH ×2 (10:08→21:16)
[2019-10-06] MEDS: SERTRALINE HCL 50 MG TABLET PO SCH (10:09)
[2019-10-06] MEDS: FERROUS GLUCONATE 324 MG TAB PO SCH (10:09)
[2019-10-06] MEDS: POLYETHYLENE (MIRALAX) 17 GM PACK PO SCH (10:09)
[2019-10-06] MEDS: FUROSEMIDE 60 MG in SYRINGE 0 ML IV SCH ×3 (10:13→21:16)
[2019-10-06] MEDS: TESTOSTERONE TOP SCH (10:44)
[2019-10-06] MEDS: INSULIN ASPART 100 UNITS/ML 3 ML PEN SC SCH ×4 (10:50→21:17)
[2019-10-06] MEDS: ACETAMINOPHEN 325 MG TAB PO PRN (11:35)
[2019-10-06] MEDS ORDERED: TRAMADOL HCL 50 MG TABLET PO PRN (14:24)
[2019-10-06] MEDS: DOBUTamine / D5W 500 MG/250 ML BAG IV SCH (15:10)
--- NOTE | 2019-10-06 15:27 | Nephrology Progress Note ---
Date of Service October 06, 2019 Assessment & Plan (1) Acute worsening of stage 4 chronic kidney disease: advanced ckd 4 w/ chronic volume overload and very labile creatinine ranging as OP from upper 2's to mid 3's, most recently 3.8 on 09/25. creatinine w/ another big jump recently and now in mid 6s and oliguria has for now resolved -strict I/O -trial of lasix on dobutamine >has had increased UOP in response and still w/ ongoing vol OL (eg scrotal edema, lung findings) but tolerating>> for now w/ increased uop, attempt to temporize start of dialysis. we have a (probably small) chance of avoiding HD (and line in pt w/ fresh ortho hardware) for now; ultimately / longer term he is approaching ESRD. goal is if possible to defer for now. vascular following and their flexibility appreciated; pt may well need tdc on 10/09 however -cont lasix 60 mg IV tid for now -primary service repleted K today -daily bmp -cont FR to 1.5L when taking po and cont <2 gm Na diet >torsemide on hold/d-c'd -consent for dialysis obtained from pt w/ daughter lorraine present and on chart; is not decision maker >>all of above discussed today w/ pt, w/ Dr Meza (2) Fluid overload: at best stable fluid status w/ oliguria > trial of lasix on dobutamine ; UOP has increased past 36 hrs (3) Acute on chronic anemia: Hgb 6.9 on presentation w/ chronic gastritis w/ scant heme + emesis in ER INR 4.8>1.7; pt had actually been bridging w/ lovenox in prep for AVF surgery on 10/02 > per epic, last coumadin dose was to be 09/26, then start lovenox 09/29 >had pRBC 2 units day of OR; had another unit 09/30. GI considering EGD >> post transfusion 10/02, hgb 7.9 this am again -would not initiate procrit w/ fracture/ GI bleeding; again have been urging this as OP and will cont to discuss as OP (4) Closed fracture of left hip: s/p L cemented bipolar hip arthroplasty 09/29 Subjective seen on rounds this am at 0745; no sob, slept well; some scrotal edema bothersome; mouth very dry; hip pain controlled; legs stiff; eating well if he gets what he likes - favors soup Review of Systems Review of Systems: All systems reviewed & are unremarkable except as noted in HPI & below Cardiovascular: + edema (dependent/scrotal) Gastrointestinal: no early satiety, no nausea and no vomiting Physical Exam Constitutional: well developed, well nourished, cooperative and comfortable; no acute distress (on RA lying flat) Eyes: EOM intact bilaterally ENMT: Ears: + hearing impairment; no external ear abnormality Nose: no e xternal nose abnormality Mouth: + dry oral mucous membranes (very dry; mouth breather) Neck: no nuchal rigidity Respiratory: normal respiratory effort Auscultation: lungs clear to auscul tation bilaterally (moves air better than prior exams) and + diminished lung sounds (but improved from previous exam) Cardiovascular: Rate/Rhythm: + irregularly irregular Heart Sounds: + murmur Vessels: + JVD Extremities: no edema (but baseball sized scrotal edema; trace - 1+ dependent edema) Gastrointestinal (Abdomen): Inspection/Auscultation: normal bowel sounds Percussion/Palpation: abdomen soft; abdomen nontender Musculoskeletal: Extremities: strength 5/5 throughout Skin: no rashes, warm and dry + ecchymosis and + pallor Psychiatric: Orientation: oriented to person and oriented to place Affect: euthymic affect Insight: + limited insight Judgement: + limited judgement Genitourinary: browning w/ ample urine Results & Data Vital Signs (Past 12 Hours) Vital Signs Temp Pulse Resp BP BP Pulse Ox 10/06/19 11:53 37.0 C 94 H 22 109/55 L 93 10/06/19 07:44 37.2 C 97 H 20 107/57 L 95 10/06/19 04:52 36.9 C 93 H 19 90/51 L 95 Laboratory Results 10/05/19 06:29 10/06/19 06:18 (1) Fluid overload Hypervolemia type: other Qualified Code(s): E87.79 - Other fluid overload (2) Closed fracture of left hip Encounter type: initial encounter Qualified Code(s): S72.002A - Fracture of unspecified part of neck of left femur, initial encounter for closed fracture
--- NOTE | 2019-10-06 15:55 | Progress Note ---
DATE: 10/06/2019 SUBJECTIVE: An 79-year-old gentleman now 1 week out from a left cemented bipolar hip arthroplasty for fracture. He seems to be relatively stable. Creatinine had bumped up quite a bit, but has been stable over the past 24 hours. He has got some minor hip pain but very manageable and seems to be doing okay on Tylenol. Denies any new complaints or musculoskeletal problems. OBJECTIVE: VITAL SIGNS: Temperature is 37.0. Vital signs stable. GENERAL: Pleasant elderly male. He is lying in bed. He does respond appropriately to questions. EXTREMITIES: Examination of the left hip reveals the dressing to be clean, dry and intact. There is no detectable drainage. His thigh is relatively soft and supple, with some mild swelling. He can dorsiflex and plantarflex his foot appropriately. His leg lengths are equal and his hip is located. ASSESSMENT: An 79-year-old gentleman 1 week out from a left cemented bipolar hip arthroplasty for fracture, orthopedically doing reasonably well. He has got multiple medical issues, which are of major concern. PLAN: At this point, we therefore recommend continued DVT prophylaxis including thigh-high TEDs, SCDs, and anticoagulation as per the medicine service. He can fully weightbear on his left leg. Needs to obey hip precautions. Routine wound care. Any orthopedic questions can be directed to me at [phone]. I need to see him back 2 weeks out from his surgery date.
[2019-10-06] MEDS: SENNA 8.6 MG TAB PO SCH (21:16)
[2019-10-07 07:10] LABS: Basophils # (auto) 0.01 K/uL (0-0.2); Basophils % (auto) 0.1 %; Eosinophils # (auto) 0.35 K/uL (0-0.5); Eosinophils % (auto) 5.1 %; Hematocrit (blood only) 24.7 % (42-52); Hemoglobin 7.9 g/dL (14.0-18.0); Immature Granulocytes # (auto) 0.06 K/uL (0.00-0.02); Immature Granulocytes % (auto) 0.9 %; Lymphocytes % (auto) 10.3 %; Mean Corpuscular Hemoglobin 28.4 pg (25-34); Mean Corpuscular Volume 88.8 fL (80-100); Monocytes # (auto) 1.08 K/uL (0.11-0.59); Monocytes % (auto) 15.8 %; Neutrophils # (auto) 4.62 K/uL (1.4-6.5); Neutrophils % (auto) 67.8 %; Nucleated RBC # (auto) 0.02 K/uL (0-0); Nucleated RBC % (auto) 0.3 %; Platelet Count 141 K/uL (130-400); RDW Coefficient of Variation 16.2 % (11.5-14.5); Red Blood Count 2.78 M/uL (4.7-6.1); White Blood Count 6.82 K/uL (4.8-10.8)
[2019-10-07 07:19] LABS: INR 2.2 (0.9-1.1)
[2019-10-07 07:36] LABS: Ovalocytes 1+
[2019-10-07] MEDS: ROSUVASTATIN CALCIUM 20 MG TAB PO SCH (07:59)
[2019-10-07] MEDS: METOPROLOL SUCC 50MG EXT REL TAB PO SCH ×2 (07:59→21:25)
[2019-10-07] MEDS: LANSOPRAZOLE 30 MG SOLTAB PO SCH ×2 (07:59→21:25)
[2019-10-07] MEDS: FERROUS GLUCONATE 324 MG TAB PO SCH (07:59)
[2019-10-07] MEDS: SERTRALINE HCL 50 MG TABLET PO SCH (07:59)
[2019-10-07] MEDS: POLYETHYLENE (MIRALAX) 17 GM PACK PO SCH (08:00)
[2019-10-07 08:02] LABS: Alanine Aminotransferase < 6 U/L (12-78); Albumin Globulin Ratio 0.6 (0.9-2); Albumin Level 2.6 gm/dl (3.4-5.0); Alkaline Phosphatase 114 U/L (45-117); Aspartate Aminotransferase 29 U/L (15-37); BUN Creatinine Ratio 14.2 (10-20); Bilirubin,Total 0.8 mg/dl (0.2-1); Blood Urea Nitrogen 91 mg/dl (7-18); Calcium 8.9 mg/dl (8.5-10.1); Carbon Dioxide 21 mmol/L (21-32); Chloride 104 mmol/L (98-107); Creatinine Clr Calc Pharmacy 9.3 ml/min; Est GFR (African American) 8.5; Est GFR (Non-African American) 7.3; Globulin 4.1 gm/dl (2.5-4.0); Glucose 86 mg/dl (70-99); Potassium 3.7 mmol/L (3.5-5.1); Sodium 137 mmol/L (136-145); Total Protein 6.7 gm/dl (6.4-8.2)
[2019-10-07] MEDS: TESTOSTERONE TOP SCH (08:13)
[2019-10-07] MEDS: FUROSEMIDE 60 MG in SYRINGE 0 ML IV SCH ×3 (08:13→21:34)
[2019-10-07] MEDS: INSULIN ASPART 100 UNITS/ML 3 ML PEN SC SCH ×4 (08:25→21:25)
--- NOTE | 2019-10-07 09:59 | Hospitalist Progress Note ---
Date of Service October 07, 2019 Results & Data Vital Signs (Past 12 Hours) Vital Signs Temp Pulse Pulse Resp BP BP Pulse Ox 10/07/19 07:33 37.0 C 81 19 104/58 L 97 10/07/19 04:40 36.9 C 88 20 95/53 L 97 10/07/19 00:13 36.7 C 77 20 94/52 L 96
--- NOTE | 2019-10-07 10:04 | Hospitalist Progress Note ---
Date of Service October 07, 2019 Assessment & Plan (1) Fall: (2) Closed fracture of left hip: Mr. Cottrell is an 79-year-old male who has significant PMH of CAD with history of stent 2012, chronic combined systolic and diastolic CHF, chronic atrial fibrillation anticoagulated on warfarin, history of VTACH s/p AICD, history of CVA, HTN, HLD, CKD stage IV, T2DM, history of right clear-cell kidney CA s/p ablation, chronic gastritis who presents to [facility] after sustaining mechanical fall at home prior to arrival. In ED patient did have left hip x-ray which revealed subcapital left hip fracture. Hemoglobin and hematocrit decreased from baseline at 6.9 and 21.8, elevated INR 4.8, A/C CKD-4 BUN/creatinine 58/3.79 Chest x-ray revealed pulmonary vascular congestion and probable trace pleural effusions. He remained hemodynamically stable while in ED. He was typed and crossed and transfused 1 unit PRBC. Emesis in ED tested Heme positive -Patient received preop antibiotics with cefazolin -s/p on 09/28/19 left cemented bipolar hip arthoplasty for left displaced femoral neck fracture by Dr. Aditya Torres -Patient was then started on Zosyn for possible aspiration pneumonia, patient persistently hypotensive and now requiring pressor support with dobutamine peripherally -Postop care also with associated complication of needing dobutamine to raise blood pressure and worsening chronic kidney disease with concerns for possible plans for perm cath placement and dialysis -As of 10/04/19 to 10/05/19 to 10/06/19: Zosyn has been stopped on 10/04/19 as no evidence of pneumoniaplans for perm cath has been held off as patient making urine with nephrology instead using Lasix 60 mg IV q8 hours with current dobutamine infusion to encourage more urine output. (3) Anemia: -from combination of anemia of chronic disease due to CKD stage IV, and blood loss anemia due to known gastritis -s/p 2 units PRBC on 09/28/19, 1 unit PRBC on 10/09/19, 1 unit PRBC on 09/30/19 -s/p 2 units Fresh frozen Plasma on 10/03/19 -hemoglobin is stable as 7.9 or near 8 (4) Chronic gastritis: -Recent EGD last admission 07/26/19 due to anemia; EGD revealed chronic gastritis with hemorrhage -patient has been on PPI -on this admission, patient has been seen by gastroenterology and EGD has been deferred -10/06/19: loose stools reported: FOBT is positive, C.difficile negative, and stool cultures pending (5) Cirrhosis of liver: -well compensated cirrhosis as per gastroenterology note on 10/02/19 (6) Acute worsening of stage 4 chronic kidney disease: Acute Kidney Failure from (Ischemic) Acute tubular necrosis -as per nephrology that his etiology is multifactorial -however, patient with more increased urine output recently -Dr. Martin from nephrology now advising to hold off perm cath and hold off plans for dialysis for now. to increase urine output despite low blood pressures, she also instructed hospitalist to start Lasix 60 mg IV TID with hold order if systolic blood pressure is 85 or less and the diuretics were started on 10/04/19 and ongoing -recent creatinine remains above 6.5 (7) Chronic atrial fibrillation: -Currently rate controlled on metoprolol succinate 100 mg twice daily -Supratherapeutic INR 4.8 on 09/28/19 admission day has been reversed -s/p 2 units Fresh frozen Plasma on 10/03/19 when INR is 2.4 -10/04/19 INR is 2.5 -coumadin remains held as it is unclear if patient may need perm cath and dialysis in immediate future -INR on 10/06/19 remains as 2.5 despite not being on coumadin recently -INR as 2.2 on 10/07/19, continue to hold systemic anticoagulation (8) Chronic systolic heart failure: -Secondary to ischemic cardiomyopathy -outpatient regimen of torsemide 100 mg daily and metoprolol mg BID -Continue metoprolol 100 mg BID, hold torsemide for now -patient has been on dobutamine on this admission to augment renal perfusion and left ventricular function -continue IV Lasix -monitor urine outputs (9) CAD (coronary artery disease): -on metoprolol -on statin -Plavix remains held as it is unclear if patient may need perm cath and dialysis in immediate future -on IV Lasix (10) S/P ICD (internal cardiac defibrillator) procedure: -has defibrillator placed in the past because of history of Vtach (11) Hypotension: -patient is on dobutamine (12) DMII (diabetes mellitus, type 2): -Last HbA1c 5.8 -Hold glipizide, is on NovoLog per protocol (13) DVT prophylaxis: SCD/TEDS INR is 2.2 on 10/07/19 warfarin remains held because of possible perm cath placement although this seems less likely to need be done at this point Follow-up: PCP Dr. Thomas upon hospital discharge Daughter and Power of title attorney Ruchi ([phone]) Subjective Patient seen and examined while sitting up in the chair. denies acute pain. reports better lower extremity mobility. continues to be breathing on room air. He feels frustrated that he continues to remains in the hospital. He understands that he is making progress in terms of his health. patient denies acute pain. able to tolerate the diet. no vomiting. Review of Systems Review of Systems: All systems reviewed & are unremarkable except as noted in HPI & below Physical Exam Constitutional: cooperative Eyes: PERRL, conjunctivae normal, anicteric sclerae EOM intact bilaterally ENMT: external ear and nose normal, oropharynx normal Neck: normal visual inspection Respiratory: normal respiratory effort Cardiovascular: RRR, no murmur, no edema Rate/Rhythm: regular rate and + irregularly irregular Gastrointestinal (Abdomen): normal bowel sounds, soft, nontender, no hepatosplenomegaly Musculoskeletal: Head/Neck/Chest: normocephalic and head atraumatic Neurologic: awake Psychiatric: Orientation: cooperative Results & Data Vital Signs (Past 12 Hours) Vital Signs Temp Pulse Pulse Resp BP BP Pulse Ox 10/07/19 07:33 37.0 C 81 19 104/58 L 97 10/07/19 04:40 36.9 C 88 20 95/53 L 97 10/07/19 00:13 36.7 C 77 20 94/52 L 96 (1) DMII (diabetes mellitus, type 2) Diabetes mellitus complication status: without complication 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 transplanted heart: [place] heart Qualified Code(s): I25.10 - Atherosclerotic heart disease of [place] coronary artery without angina pectoris (3) Anemia Anemia type: unspecified type Qualified Code(s): D64.9 - Anemia, unspecified (4) Fall Encounter type: initial encounter Qualified Code(s): W19.XXXA - Unspecified fall, initial encounter (5) Closed fracture of left hip Encounter type: initial encounter Qualified Code(s): S72.002A - Fracture of unspecified part of neck of left femur, initial encounter for closed fracture
--- NOTE | 2019-10-07 12:15 | Cardiology Progress Note ---
Date of Service October 07, 2019 Assessment & Plan (1) CKD (chronic kidney disease) stage 4, GFR 15-29 ml/min: Patient postoperatively has had worsening renal function No arrhythmias Continue low-dose dobutamine (2) Ischemic cardiomyopathy: (3) S/P ICD (internal cardiac defibrillator) procedure: (4) Anemia: Hemoglobin 7.9 has had difficulties with gradual decline in the past and required transfusion. Procrit not in use due to history of renal cell carcinoma (5) Anticoagulant long-term use: Patient currently off warfarin and will hold until final decision on catheter placement is made. Blood counts trending downward as above Subjective Patient seen and examined out of bed in chair. No complaints overnight and specifically denies any chest pain, shortness of breath, palpations, lightheadedness, dizziness or syncope. Telemetry reviewed: A. fib with underlying left bundle branch block pattern Review of Systems Review of Systems: All systems reviewed & are unremarkable except as noted in HPI & below Physical Exam Physical Exam: General: Awake, alert and oriented x 3. No acute distress. HEENT: Normocephalic, atraumatic. Pupils equal, round and reactive to light and accommodation. Extraocular muscles are intact. Anicteric sclera. Moist mucous membranes. Neck: No JVD. No bruit. Cardiovascular: irregularly irregular, unable to appreciate murmur, rub or gallop. Pulmonary: Clear to auscultation bilaterally. No rales, rhonchi, or wheezing. Abdomen: Bowel sounds x 4, soft. No rebound, guarding or tenderness. No organomegaly. Extremities: No clubbing, cyanosis or edema. +2 pedal pulses bilaterally. Skin: Warm and dry. Results & Data Vital Signs (Past 12 Hours) Vital Signs Temp Pulse Pulse Resp BP Pulse Ox 10/07/19 07:33 37.0 C 81 19 104/58 L 97 10/07/19 04:40 36.9 C 88 20 95/53 L 97 (1) Anemia Anemia type: unspecified type Qualified Code(s): D64.9 - Anemia, unspecified
[2019-10-07] MEDS: DOBUTamine / D5W 500 MG/250 ML BAG IV SCH (13:39)
[2019-10-07] MEDS: SENNA 8.6 MG TAB PO SCH (21:26)
[2019-10-08 08:14] LABS: Alanine Aminotransferase < 6 U/L (12-78); Albumin Globulin Ratio 0.7 (0.9-2); Albumin Level 2.7 gm/dl (3.4-5.0); Alkaline Phosphatase 116 U/L (45-117); Aspartate Aminotransferase 27 U/L (15-37); BUN Creatinine Ratio 15.4 (10-20); Bilirubin,Total 0.7 mg/dl (0.2-1); Blood Urea Nitrogen 92 mg/dl (7-18); Carbon Dioxide 21 mmol/L (21-32); Chloride 104 mmol/L (98-107); Est GFR (African American) 9.4; Est GFR (Non-African American) 8.1; Globulin 4.1 gm/dl (2.5-4.0); Glucose 115 mg/dl (70-99); Potassium 3.2 mmol/L (3.5-5.1); Sodium 136 mmol/L (136-145); Total Protein 6.8 gm/dl (6.4-8.2)
[2019-10-08] MEDS: INSULIN ASPART 100 UNITS/ML 3 ML PEN SC SCH ×4 (09:08→22:20)
[2019-10-08] MEDS ORDERED: POTASSIUM CHLORIDE 20 MEQ TABCR PO STA (09:09)
--- NOTE | 2019-10-08 09:25 | Hospitalist Progress Note ---
Date of Service October 08, 2019 Assessment & Plan (1) Fall: -fall at home -management as below (2) Closed fracture of left hip: Mr. Cottrell is an 79-year-old male who has significant PMH of CAD with history of stent 2012, chronic combined systolic and diastolic CHF, chronic atrial fibrillation anticoagulated on warfarin, history of VTACH s/p AICD, history of CVA, HTN, HLD, CKD stage IV, T2DM, history of right clear-cell kidney CA s/p ablation, chronic gastritis who presents to [facility] after sustaining mechanical fall at home prior to arrival. In ED patient did have left hip x-ray which revealed subcapital left hip fracture. Hemoglobin and hematocrit decreased from baseline at 6.9 and 21.8, elevated INR 4.8, A/C CKD-4 BUN/creatinine 58/3.79 Chest x-ray revealed pulmonary vascular congestion and probable trace pleural effusions. He remained hemodynamically stable while in ED. He was typed and crossed and transfused 1 unit PRBC. Emesis in ED tested Heme positive -Patient received preop antibiotics with cefazolin -s/p on 09/28/19 left cemented bipolar hip arthoplasty for left displaced femoral neck fracture by Dr. Aditya Torres -Patient was then started on Zosyn for possible aspiration pneumonia, patient persistently hypotensive and now requiring pressor support with dobutamine peripherally -Postop care also with associated complication of needing dobutamine to raise blood pressure and worsening chronic kidney disease with concerns for possible plans for perm cath placement and dialysis -As of 10/04/19 to 10/05/19 to 10/06/19: Zosyn has been stopped on 10/04/19 as no evidence of pneumoniaplans for perm cath has been held off as patient making urine with nephrology instead using Lasix 60 mg IV q8 hours with current dobutamine infusion to encourage more urine output. (3) Anemia: -from combination of anemia of chronic disease due to CKD stage IV, and blood loss anemia due to known gastritis -s/p 2 units PRBC on 09/28/19, 1 unit PRBC on 10/09/19, 1 unit PRBC on 09/30/19 -s/p 2 units Fresh frozen Plasma on 10/03/19 -hemoglobin is stable as 7.9 or near 8 (4) Chronic gastritis: -Recent EGD last admission 07/26/19 due to anemia; EGD revealed chronic gastritis with hemorrhage -patient has been on PPI -on this admission, patient has been seen by gastroenterology and EGD has been deferred -10/06/19: loose stools reported: FOBT is positive, C.difficile negative, and stool cultures no growth (5) Cirrhosis of liver: -well compensated cirrhosis as per gastroenterology note on 10/02/19 (6) Acute worsening of stage 4 chronic kidney disease: Acute Kidney Failure from (Ischemic) Acute tubular necrosis -as per nephrology that his etiology is multifactorial -admission creatinine was 3.79 on 10/08/19 and creatinine continued to rise with creatinine peaking to 6.6 on 10/05/19 -initial concerns have been whether or not patient would need perm cath placement for dialysis -however, patient continued to make urine and did not experience hyperkalemia -initial plans for perm cath placement have been held off since 10/04/19 in favor of diuresis strategies of Lasix 60 mg IV TID and patient has been able to diurese while continuing dobutamine for hypotension, increase cardiac output, and increase renal perfusion -creatinine downtrending slowly to 5.98 on 10/08/19, continue current Lasix and dobutamine history of right clear-cell kidney CA s/p ablation in the past (7) Hypotension: -patient is on dobutamine (8) Chronic atrial fibrillation: -Currently rate controlled on metoprolol succinate 100 mg twice daily -Supratherapeutic INR 4.8 on 09/28/19 admission day has been reversed -s/p 2 units Fresh frozen Plasma on 10/03/19 when INR is 2.4 -10/04/19 INR is 2.5 -coumadin remains held as it is unclear if patient may need perm cath and dialysis in immediate future -INR on 10/06/19 remains as 2.5 despite not being on coumadin recently -INR as 2.2 on 10/07/19, continue to hold systemic anticoagulation (9) Chronic systolic heart failure: -Secondary to ischemic cardiomyopathy -outpatient regimen of torsemide 100 mg daily and metoprolol mg BID -Continue metoprolol 100 mg BID, hold torsemide for now -patient has been on dobutamine on this admission to augment renal perfusion and left ventricular function -continue IV Lasix -monitor urine outputs (10) CAD (coronary artery disease): -on metoprolol -on statin -Plavix remains held as it is unclear if patient may need perm cath and dialysis in immediate future -on IV Lasix (11) S/P ICD (internal cardiac defibrillator) procedure: -has defibrillator placed in the past because of history of Vtach (12) DMII (diabetes mellitus, type 2): -Last HbA1c 5.8 -Hold glipizide, is on NovoLog per protocol (13) DVT prophylaxis: SCD/TEDS INR is 2.2 on 10/07/19 warfarin remains held because of possible perm cath placement although this seems less likely to need be done at this point Follow-up: PCP Dr. Thomas upon hospital discharge Daughter and Power of erisa attorney Ruchi ([phone]) Subjective Patient seen and examined after waking up from sleeping. Patient breathing on room air. he denies acute pain. He has been able to urinate. Patient does not have symptoms. Patient appears to be mental baseline Review of Systems Review of Systems: All systems reviewed & are unremarkable except as noted in HPI & below Physical Exam Constitutional: cooperative Eyes: PERRL, conjunctivae normal, anicteric sclerae EOM intact bilaterally ENMT: external ear and nose normal, oropharynx normal Neck: normal visual inspection Respiratory: normal respiratory effort Cardiovascular: RRR, no murmur, no edema Rate/Rhythm: regular rate and + irregularly irregular Gastrointestinal (Abdomen): normal bowel sounds, soft, nontender, no hepatosplenomegaly Musculoskeletal: Head/Neck/Chest: normocephalic and head atraumatic Neurologic: awake Psychiatric: Orientation: cooperative Results & Data Vital Signs (Past 12 Hours) Vital Signs Temp Pulse Pulse Resp BP Pulse Ox 10/08/19 07:40 36.9 C 75 19 114/65 97 10/08/19 04:32 37.1 C 72 18 103/66 94 10/07/19 23:59 37.3 C 84 20 105/44 L 96 (1) DMII (diabetes mellitus, type 2) Diabetes mellitus complication status: without complication Diabetes mellitus terminal system operator insulin use: without terminal system operator use Qualified Code(s): E11.9 - Type 2 diabetes mellitus without complications (2) CAD (coronary artery disease) Associated angina: without angina Coronary Disease-Associated Artery/Lesion type: [place] artery [place] vs. transplanted heart: [place] heart Qualified Code(s): I25.10 - Atherosclerotic heart disease of [place] coronary artery without angina pectoris (3) Anemia Anemia type: unspecified type Qualified Code(s): D64.9 - Anemia, unspecified (4) Fall Encounter type: initial encounter Qualified Code(s): W19.XXXA - Unspecified fall, initial encounter (5) Closed fracture of left hip Encounter type: initial encounter Qualified Code(s): S72.002A - Fracture of unspecified part of neck of left femur, initial encounter for closed fracture
--- NOTE | 2019-10-08 09:32 | Progress Note ---
DATE: 10/08/2019 SUBJECTIVE: An 79-year-old gentleman now postop day 9 from a left cemented bipolar hip arthroplasty for fracture. Hip is doing well from a pain standpoint. Denies any significant pain in his hip today. No chest pain. No new complaints. OBJECTIVE: VITAL SIGNS: Temperature is 36.9. Vital signs stable. GENERAL: Shows a pleasant elderly male. He is awake, alert and about his baseline and responds appropriately to questions. EXTREMITIES: Examination of the left hip reveals the leg lengths to be equal. He has got some moderate diffuse swelling of his left leg. His dressing is in place. A little bit of serous drainage. He is neurologically intact. He can dorsiflex and plantarflex his foot appropriately. LABORATORY DATA: Labs are pending from this morning. ASSESSMENT: An 79-year-old male with multiple medical comorbidities, now 9 days out from a left cemented bipolar hip arthroplasty for fracture. Orthopedically seems to be doing okay. Still having some serous drainage, which is not too unusual. His medical situation seems to be stabilizing. The creatinine seems to be stable and improving slightly. Hemoglobin is stable. PLAN: 1. DVT prophylaxis including thigh-high TEDs, SCDs, and anticoagulation as per the medicine service. 2. PT/OT. He can weightbear as tolerated, left lower extremity. 3. Routine wound care, left hip. 4. Medical management as per the medicine service. 5. Disposition. He is orthopedically okay for discharge any time medically stable. I need to see him back 2 weeks out from surgery date. He can weightbear as tolerated. Any Orthopedic questions can be directed to me at [phone].
[2019-10-08] MEDS: FERROUS GLUCONATE 324 MG TAB PO SCH (09:36)
[2019-10-08] MEDS: SERTRALINE HCL 50 MG TABLET PO SCH (09:36)
[2019-10-08] MEDS: METOPROLOL SUCC 50MG EXT REL TAB PO SCH ×2 (09:36→21:25)
[2019-10-08] MEDS: ROSUVASTATIN CALCIUM 20 MG TAB PO SCH (09:36)
[2019-10-08] MEDS: LANSOPRAZOLE 30 MG SOLTAB PO SCH ×2 (09:36→21:24)
[2019-10-08] MEDS: POLYETHYLENE (MIRALAX) 17 GM PACK PO SCH (09:37)
[2019-10-08] MEDS: FUROSEMIDE 60 MG in SYRINGE 0 ML IV SCH ×3 (09:37→21:23)
--- NOTE | 2019-10-08 11:14 | Cardiology Progress Note ---
Date of Service October 08, 2019 Assessment & Plan (1) CKD (chronic kidney disease) stage 4, GFR 15-29 ml/min: Patient postoperatively has had worsening renal function No arrhythmias Continue low-dose dobutamine (2) Ischemic cardiomyopathy: (3) S/P ICD (internal cardiac defibrillator) procedure: (4) Anemia: Hemoglobin 7.9 has had difficulties with gradual decline in the past and required transfusion. Procrit not in use due to history of renal cell carcinoma (5) Anticoagulant long-term use: Patient currently off warfarin and will hold until final decision on catheter placement is made. Blood counts trending downward as above Subjective Patient seen and examined seated upright in bed. No complaints overnight and specifically denies any chest pain, shortness of breath, palpations, lightheadedness, dizziness or syncope. Telemetry reviewed: A. fib with underlying left bundle branch block pattern Review of Systems Review of Systems: All systems reviewed & are unremarkable except as noted in HPI & below Physical Exam Physical Exam: General: Awake, alert and oriented x 3. No acute distress. HEENT: Normocephalic, atraumatic. Pupils equal, round and reactive to light a nd accommodation. Extraocular muscles are intact. Anicteric sclera. Moist mucous membranes. Neck: No JVD. No bruit. Cardiovascular: irregularly irregular, unable to appreciate murmur, rub or gal lop. Pulmonary: Clear to auscultation bilaterally. No rales, rhonchi, or wheezing. Abdomen: Bowel sounds x 4, soft. No rebound, guarding or tenderness. No organomegaly. Extremities: No clubbing, cyanosis or edema. +2 pedal pulses bilaterally. Skin: Warm and dry. Results & Data Vital Signs (Past 12 Hours) Vital Signs Temp Pulse Pulse Resp BP Pulse Ox 10/08/19 07:40 36.9 C 75 19 114/65 97 10/08/19 04:32 37.1 C 72 18 103/66 94 10/07/19 23:59 37.3 C 84 20 105/44 L 96 Laboratory Results Laboratory Results - last 24 hr 10/07/19 10/07/19 10/07/19 11:35 16:25 20:29 Sodium Potassium Chloride Carbon Dioxide Anion Gap BUN Creatinine Est Cr Clr Drug Dosing Est GFR ( Amer) Est GFR (Non-Af Amer) BUN/Creatinine Ratio Glucose POC Glucose 120 H 122 H 292 H Calcium Total Bilirubin AST ALT Alkaline Phosphatase Total Protein Albumin Globulin Albumin/Globulin Ratio 10/08/19 10/08/19 07:26 07:37 Sodium 136 Potassium 3.2 L Chloride 104 Carbon Dioxide 21 Anion Gap 12.0 H BUN 92 H Creatinine 5.98 H* D Est Cr Clr Drug Dosing 11.0 Est GFR ( Amer) 9.4 Est GFR (Non-Af Amer) 8.1 BUN/Creatinine Ratio 15.4 Glucose 115 H POC Glucose 128 H Calcium 9.0 Total Bilirubin 0.7 AST 27 ALT < 6 L Alkaline Phosphatase 116 Total Protein 6.8 Albumin 2.7 L Globulin 4.1 H Albumin/Globulin Ratio 0.7 L Medications Administered Current Inpatient Medications Acetaminophen (Tylenol) 325 mg PO Q6H PRN PRN Reason: Pain or Fever Stop: 11/03/19 08:14 Last Admin: 10/06/19 11:35 Dose: 325 mg Documented by: Bisacodyl (Dulcolax) 10 mg AR DAILY PRN PRN Reason: Constipation Stop: 10/28/19 17:03 Cl[facility]idogrel [facility] ([facility]ix) [facility] [place] Stop: 10/30/19 08:59 Last Admin: 10/03/19 10:58 Dose: Not Given Documented by: Dextrose (Dextrose 50%) 25 - 50 ml IV UD PRN; Protocol PRN Reason: Hypoglycemia Protocol Stop: 10/28/19 17:03 Last Admin: 10/01/19 03:09 Dose: 25 ml Documented by: Ferrous Gluconate (Ferrous Gluconate) 324 [facility] [place] Stop: 10/29/19 08:59 Last Admin: 10/08/19 09:36 Dose: 324 mg Documented by: Glucagon (Glucagen) 1 mg SQ UD PRN; Protocol PRN Reason: Hypoglycemia Protocol Stop: 10/28/19 17:03 Glucose (Glucose 40%) 15 - 30 gm PO UD PRN; Protocol PRN Reason: Hypoglycemia Protocol Stop: 10/28/19 17:03 Glucose (Dex4 Glucose) 4 - 8 tabs PO UD PRN; Protocol PRN Reason: Hypoglycemia Protocol Stop: 10/28/19 17:03 Hydromorphone HCl (Dilaudid) 0.5 mg IV Q8H PRN PRN Reason: Severe Pain Stop: 10/18/19 08:16 Dobutamine HCl/Dextrose (Dobutamine / D5w) 500 mg in 250 mls @ 5.1 mls/hr IV .Q24H [facility]AVAN; Protocol Stop: 10/31/19 13:59 Last Infusion: 10/08/19 07:39 Dose: 2 mcg/kg/min, 5.1 mls/hr Documented by: Furosemide 60 mg/ Syringe 6 mls @ 4 mls/min IV TID [facility]AN Stop: 11/03/19 13:59 Last Admin: 10/08/19 09:37 Dose: 4 mls/min Documented by: Insulin Aspart (Novolog Flexpen) 0 units SC ACHS [facility] Stop: 10/28/19 17:59 Last Admin: 10/08/19 09:08 Dose: 1 units Documented by: Lansoprazole (Prevacid) 30 mg PO BID [facility] Stop: 11/01/19 20:59 Last Admin: 10/08/19 09:36 Dose: 30 mg Documented by: Magnesium Hydroxide (Milk Of Magnesia) 30 ml PO Q6H PRN PRN Reason: Constipation Stop: 10/29/19 17:06 Metoprolol Succinate (Toprol Xl) 100 mg PO BID [facility] Stop: 10/28/19 20:59 Last Admin: 10/08/19 09:36 Dose: 100 mg Documented by: Miscellaneous (Carbohydrates For Hypoglycemia) 15 - 30 gm PO UD PRN PRN Reason: Hypoglycemia Protocol Stop: 10/28/19 17:03 Naloxone HCl (Narcan) 0.1 mg IV Q5M PRN PRN Reason: Oversedation/Resp Depression Stop: 10/29/19 17:06 Nitroglycerin (Nitrostat) 0.4 mg SL UD PRN PRN Reason: Chest Pain Stop: 10/29/19 17:06 Testosteroine Gel~ Non-Formulary Patient's Own Med 1 ea TOP DAILY [facility] Stop: 10/31/19 08:59 Last Admin: 10/07/19 08:13 Dose: 1 btl Documented by: Ondansetron HCl (Zofran) 4 mg IV Q6H PRN PRN Reason: Nausea And Vomiting Stop: 10/29/19 17:06 Polyethylene Glycol (Miralax Powder Packet) 17 gm PO DAILY [facility] Stop: 11/02/19 08:59 Last Admin: 10/08/19 09:37 Dose: 17 gm Documented by: Rosuvastatin Calcium (Crestor) 20 mg PO QAM [facility] Stop: 10/29/19 08:59 Last Admin: 10/08/19 09:36 Dose: 20 mg Documented by: Sennosides (Senokot) 17.2 mg PO HS [facility] Stop: 10/29/19 20:59 Last Admin: 10/07/19 21:26 Dose: Not Given Documented by: Sertraline HCl (Zoloft) 50 mg PO QAM [facility] Stop: 10/29/19 08:59 Last Admin: 10/08/19 09:36 Dose: 50 mg Documented by: Tamsulosin HCl (Flomax) 0.4 mg PO QAM PRN PRN Reason: unable to void Stop: 10/29/19 17:06 Last Admin: 09/30/19 08:52 Dose: 0.4 mg Documented by: Tramadol HCl (Ultram) 25 mg PO Q6H PRN PRN Reason: Mild Pain Stop: 10/28/19 17:03 (1) Anemia Anemia type: unspecified type Qualified Code(s): D64.9 - Anemia, unspecified
[2019-10-08] MEDS: TESTOSTERONE TOP SCH (12:39)
[2019-10-08] MEDS: DOBUTamine / D5W 500 MG/250 ML BAG IV SCH (14:44)
--- NOTE | 2019-10-08 16:11 | Progress Note ---
DATE: 10/08/2019 SUBJECTIVE: Overnight, no new issues. He made 1600 mL of urine with the use of Lasix 60 three times a day and dobutamine drip. He feels slightly better from breathing standpoint, does not have lower extremity edema. He does feel weak and really wants to go home. OBJECTIVE: VITAL SIGNS: Blood pressure is 125/69, 86 per minute, temperature 36 degrees Celsius, 94% on room air. HEENT: Mucous membranes moist. NECK: Supple. CHEST: Decreased breath sound bilaterally but no obvious crackles or wheezing. CARDIOVASCULAR: S1, S2 irregular. No murmur, rubs or gallop. No jugular venous distention. No lower extremity edema. ABDOMEN: Soft, nontender. EXTREMITIES: No edema. LABORATORY TESTS: From this morning was reviewed in detail. ASSESSMENT AND PLAN: Acute worsening of stage IV chronic kidney disease. The patient with chronic volume overload and very labile creatinine ranging from the upper 2s to mid 3s, most recently 3.8 on 09/25/2019. At this time, patient seems to be somewhat stable by his standard. He is making urine and his volume status is getting better; however, this is with the use of dobutamine drip. There is extensive talk with the family about the long-term care and about dialysis. I will defer this to his primary hearing care practitioner. There is no indication for dialysis for today.
[2019-10-08] MEDS: SENNA 8.6 MG TAB PO SCH (21:25)
[2019-10-08] MEDS: ACETAMINOPHEN 325 MG TAB PO PRN (21:30)
[2019-10-09 07:34] LABS: Basophils # (auto) 0.03 K/uL (0-0.2); Basophils % (auto) 0.3 %; Eosinophils # (auto) 0.42 K/uL (0-0.5); Eosinophils % (auto) 4.2 %; Hematocrit (blood only) 25.6 % (42-52); Hemoglobin 8.4 g/dL (14.0-18.0); Immature Granulocytes # (auto) 0.12 K/uL (0.00-0.02); Immature Granulocytes % (auto) 1.2 %; Lymphocytes # (auto) 0.96 K/uL (1.2-3.4); Lymphocytes % (auto) 9.5 %; Mean Corpuscular Hemoglobin 29.1 pg (25-34); Mean Corpuscular Volume 88.6 fL (80-100); Mean Platelet Volume 8.8 fL (7.4-10.4); Monocytes % (auto) 13.8 %; Neutrophils # (auto) 7.18 K/uL (1.4-6.5); Nucleated RBC # (auto) 0.02 K/uL (0-0); Nucleated RBC % (auto) 0.2 %; Platelet Count 165 K/uL (130-400); RDW Coefficient of Variation 16.2 % (11.5-14.5); RDW Standard Deviation 52.8 fL (36.4-46.3); Red Blood Count 2.89 M/uL (4.7-6.1); White Blood Count 10.11 K/uL (4.8-10.8)
[2019-10-09 07:38] LABS: Mean Corpuscular Hgb Conc 32.8 g/dL (32-36)
[2019-10-09 07:43] LABS: INR 1.6 (0.9-1.1); Prothrombin Time 15.6 Seconds (9.0-12.0)
[2019-10-09 08:03] LABS: Alanine Aminotransferase < 6 U/L (12-78); Albumin Globulin Ratio 0.6 (0.9-2); Albumin Level 2.6 gm/dl (3.4-5.0); Alkaline Phosphatase 114 U/L (45-117); Aspartate Aminotransferase 24 U/L (15-37); BUN Creatinine Ratio 16.1 (10-20); Bilirubin,Total 0.8 mg/dl (0.2-1); Blood Urea Nitrogen 86 mg/dl (7-18); Calcium 8.9 mg/dl (8.5-10.1); Carbon Dioxide 22 mmol/L (21-32); Chloride 103 mmol/L (98-107); Creatinine Clr Calc Pharmacy 11.3 ml/min; Est GFR (African American) 10.7; Est GFR (Non-African American) 9.2; Globulin 4.2 gm/dl (2.5-4.0); Glucose 99 mg/dl (70-99); Magnesium 2.1 mg/dl (1.8-2.4); Phosphorus 4.4 mg/dl (2.5-4.9); Potassium 3.3 mmol/L (3.5-5.1); Sodium 136 mmol/L (136-145); Total Protein 6.8 gm/dl (6.4-8.2)
[2019-10-09] MEDS: FERROUS GLUCONATE 324 MG TAB PO SCH (08:30)
[2019-10-09] MEDS: FUROSEMIDE 60 MG in SYRINGE 0 ML IV SCH (08:30)
[2019-10-09] MEDS: LANSOPRAZOLE 30 MG SOLTAB PO SCH ×2 (08:30→20:10)
[2019-10-09] MEDS: SERTRALINE HCL 50 MG TABLET PO SCH (08:30)
[2019-10-09] MEDS: METOPROLOL SUCC 50MG EXT REL TAB PO SCH ×2 (08:30→20:11)
[2019-10-09] MEDS: POLYETHYLENE (MIRALAX) 17 GM PACK PO SCH (08:30)
[2019-10-09] MEDS: INSULIN ASPART 100 UNITS/ML 3 ML PEN SC SCH ×4 (08:32→21:00)
[2019-10-09] MEDS: ROSUVASTATIN CALCIUM 20 MG TAB PO SCH (08:47)
[2019-10-09] MEDS ORDERED: POTASSIUM CHLORIDE 20 MEQ TABCR PO STA (08:49)
[2019-10-09] MEDS: TESTOSTERONE TOP SCH (08:52)
--- NOTE | 2019-10-09 10:46 | Hospitalist Progress Note ---
Date of Service October 09, 2019 Assessment & Plan (1) Fall: -fall at home -management as below (2) Closed fracture of left hip: Mr. Cottrell is an 79-year-old male who has significant PMH of CAD with history of stent 2012, chronic combined systolic and diastolic CHF, chronic atrial fibrillation anticoagulated on warfarin, history of VTACH s/p AICD, history of CVA, HTN, HLD, CKD stage IV, T2DM, history of right clear-cell kidney CA s/p ablation, chronic gastritis who presents to [facility] after sustaining mechanical fall at home prior to arrival. In ED patient did have left hip x-ray which revealed subcapital left hip frac ture. Hemoglobin and hematocrit decreased from baseline at 6.9 and 21.8, elevated INR 4.8, A/C CKD-4 BUN/creatinine 58/3.79 Chest x-ray revealed pulmonary vascular congestion and probable trace pleural effusions. He remained hemodynamically stable while in ED. He was typed and crossed and transfused 1 unit PRBC. Emesis in ED tested Heme positive -Patient received preop antibiotics with cefazolin -s/p on 09/28/19 left cemented bipolar hip arthoplasty for left displaced femoral neck fracture by Dr. Aditya Torres -Patient was then started on Zosyn for possible aspiration pneumonia, patient persistently hypotensive and now requiring pressor support with dobutamine peripherally -Postop care also with associated complication of needing dobutamine to raise blood pressure and worsening chronic kidney disease with concerns for possible plans for perm cath placement and dialysis -once patient completes hospitalization, he will need follow up with Dr. Aditya Torres (Orthopedic questions can be directed to Dr. Torres at [phone]) (3) Anemia: -from combination of anemia of chronic disease due to CKD stage IV, and blood loss anemia due to known gastritis -s/p 2 units PRBC on 09/28/19, 1 unit PRBC on 10/09/19, 1 unit PRBC on 09/30/19 -s/p 2 units Fresh frozen Plasma on 10/03/19 -hemoglobin is stable as 7.9 or low 8s history of right clear-cell kidney CA s/p ablation in the past -therefore procrit not be used to treat anemia (4) Chronic gastritis: -Recent EGD last admission 07/26/19 due to anemia; EGD revealed chronic gastritis with hemorrhage -patient has been on PPI -on this admission, patient has been seen by gastroenterology and EGD has been deferred -10/06/19: loose stools reported: FOBT is positive, C.difficile negative, and stool cultures no growth (5) Cirrhosis of liver: -well compensated cirrhosis as per gastroenterology note on 10/02/19 (6) Acute worsening of stage 4 chronic kidney disease: Acute Kidney Failure from (Ischemic) Acute tubular necrosis -as per nephrology that his etiology is multifactorial -admission creatinine was 3.79 on 10/08/19 and creatinine continued to rise with creatinine peaking to 6.6 on 10/05/19 -initial concerns have been whether or not patient would need perm cath plac ement for dialysis -however, patient continued to make urine and did not experience hyperkalemia -initial plans for perm cath placement have been held off since 10/04/19 in favor of diuresis strategies of Lasix 60 mg IV TID and patient has been able to diurese while continuing dobutamine for hypotension, increase cardiac output, and increase renal perfusion -10/09/19: renal function mildly improved with creatinine as 5.39. patient continues to make urine. however as per nephrology, patient's creatinine is not improved significantly to avoid the need for dialysis in near future. discussed with patient and patient's family member(daughter) that nephrology service coordinated with vascular service for perm cath placement on Wednesday10/11/19. Dobutamine is stopped on 10/09/19, Furosemide reduced from 60 mg IV TID to 40 mg IV TID. Lasix should be held prior to planned permacath (7) Hypotension: -patient is on dobutamine (8) Chronic atrial fibrillation: -Currently rate controlled on metoprolol succinate 100 mg twice daily -Supratherapeutic INR 4.8 on 09/28/19 admission day has been reversed -s/p 2 units Fresh frozen Plasma on 10/03/19 when INR is 2.4 -10/04/19 INR is 2.5 -coumadin remains held as it is unclear if patient may need perm cath and dialysis in immediate future -INR on 10/06/19 remains as 2.5 despite not being on coumadin recently -INR as 2.2 on 10/07/19, continue to hold systemic anticoagulation -INR is 1.6 on 10/09/19, continues to be off coumadin with perm cath for dialysis planned on 10/01/19 (9) Chronic systolic heart failure: -Secondary to ischemic cardiomyopathy -outpatient regimen of torsemide 100 mg daily and metoprolol mg BID -Continue metoprolol 100 mg BID, hold torsemide for now -patient has been on dobutamine on this admission to augment renal perfusion and left ventricular function -continue IV Lasix -monitor urine outputs (10) CAD (coronary artery disease): -on metoprolol -on statin -Plavix remains held for plans of perm cath and dialysis in immediate future -on IV Lasix (11) S/P ICD (internal cardiac defibrillator) procedure: -has defibrillator placed in the past because of history of Vtach (12) DMII (diabetes mellitus, type 2): -Last HbA1c 5.8 -Hold glipizide, is on NovoLog per protocol (13) DVT prophylaxis: SCD/TEDS Follow-up: PCP Dr. Thomas upon hospital discharge Daughter and Power of attorney recruiter Ruchi ([phone]) Subjective Patient off dobutamine drip. seen and examined sitting up in the chair. patient appears comfortable. breathing on room air.denies vomiting. eating the food okay. patient on room air. no shortness of breath. denies chest pain or abdomen pain. renal function mildly improved with creatinine as 5.39. patient continues to make urine. however as per nephrology, patient's creatinine is not improved significantly to avoid the need for dialysis in near future. discussed with patient and patient's family member(daughter) that nephrology service coordinated with vascular service for perm cath placement on Wednesday10/11/19 Review of Systems Review of Systems: All systems reviewed & are unremarkable except as noted in HPI & below Physical Exam Constitutional: cooperative Eyes: PERRL, conjunctivae normal, anicteric sclerae EOM intact bilaterally ENMT: external ear and nose normal, oropharynx normal Neck: normal visual inspection Respiratory: normal respiratory effort Cardiovascular: RRR, no murmur, no edema Rate/Rhythm: regular rate and + irregularly irregular Gastrointestinal (Abdomen): normal bowel sounds, soft, nontender, no hepatosplenomegaly Musculoskeletal: Head/Neck/Chest: normocephalic and head atraumatic Neurologic: awake Psychiatric: Orientation: cooperative Results & Data Vital Signs (Past 12 Hours) Vital Signs Temp Pulse Pulse Pulse Resp BP Pulse Ox 10/09/19 08:13 36.6 C 84 18 113/61 97 10/09/19 04:43 36.6 C 87 20 121/62 97 10/09/19 00:19 36.9 C 75 18 106/53 L 96 10/09/19 00:00 75 (1) Fall Encounter type: initial encounter Qualified Code(s): W19.XXXA - Unspecified fall, initial encounter (2) Closed fracture of left hip Encounter type: initial encounter Qualified Code(s): S72.002A - Fracture of unspecified part of neck of left femur, initial encounter for closed fracture (3) Anemia Anemia type: unspecified type Qualified Code(s): D64.9 - Anemia, unspecified (4) CAD (coronary artery disease) Coronary Disease-Associated Artery/Lesion type: [place] artery [place] vs. 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
--- NOTE | 2019-10-09 11:01 | Communication Note ---
Date of Service: October 09, [address] Olivares, planning on permcath insertion on Wednesday.
[2019-10-09] MEDS: FUROSEMIDE 40 MG in SYRINGE 0 ML IV SCH ×2 (14:33→20:19)
--- NOTE | 2019-10-09 15:48 | Cardiology Progress Note ---
Date of Service October 09, 2019 Assessment & Plan (1) CKD (chronic kidney disease) stage 4, GFR 15-29 ml/min: Patient postoperatively has had worsening renal function For permacath placement 10/11/2019 and subsequent initiation of hemodialysis (2) Ischemic cardiomyopathy: (3) S/P ICD (internal cardiac defibrillator) procedure: (4) Anemia: Hemoglobin 7.9 has had difficulties with gradual decline in the past and required transfusion. Procrit not in use due to history of renal cell carcinoma (5) Anticoagulant long-term use: INR of 1.6 today For permacath placement 10/11/2019 We will initiate low-dose IV heparin without bolus at this time For cardioembolic stroke prevention Plavix previously prescribed for history of CVA, also held pending cath placement Subjective Patient seen and examined seated upright in bed. No complaints overnight and specifically denies any chest pain, shortness of breath, palpations, lightheadedness, dizziness or syncope. More somnolent this a.m. Telemetry reviewed: A. fib with underlying left bundle branch block pattern Review of Systems Review of Systems: All systems reviewed & are unremarkable except as noted in HPI & below Physical Exam Physical Exam: General: Awake, alert and oriented x 3. No acute distress. HEENT: Normocephalic, atraumatic. Pupils equal, round and reactive to light and accommodation. Extraocular muscles are intact. Anicteric sclera. Moist mucous membranes. Neck: No JVD. No bruit. Cardiovascular: irregularly irregular, unable to appreciate murmur, rub or gallop. Pulmonary: Clear to auscultation bilaterally. No rales, rhonchi, or wheezing. Abdomen: Bowel sounds x 4, soft. No rebound, guarding or tenderness. No organomegaly. Extremities: No clubbing, cyanosis or edema. +2 pedal pulses bilaterally. Skin: Warm and dry. Results & Data Vital Signs (Past 12 Hours) Vital Signs Temp Pulse Pulse Resp BP Pulse Ox 10/09/19 15:41 36.7 C 92 H 18 119/67 97 10/09/19 11:42 36.9 C 70 18 122/75 96 10/09/19 08:13 36.6 C 84 18 113/61 97 10/09/19 04:43 36.6 C 87 20 121/62 97 Laboratory Results Laboratory Results - last 24 hr 10/08/19 10/08/19 10/09/19 16:10 20:30 07:20 WBC 10.11 RBC 2.89 L Hgb 8.4 L Hct 25.6 L MCV 88.6 MCH 29.1 MCHC 32.8 RDW Std Deviation 52.8 H RDW Coeff of Dung 16.2 H Plt Count 165 MPV 8.8 Immature Gran % (Auto) 1.2 Neut % (Auto) 71.0 Lymph % (Auto) 9.5 Caroline % (Auto) 13.8 Eos % (Auto) 4.2 Baso % (Auto) 0.3 Immature Gran # (Auto) 0.12 H Neut # (Auto) 7.18 H Lymph # (Auto) 0.96 L Caroline # (Auto) 1.40 H Eos # (Auto) 0.42 Baso # (Auto) 0.03 Absolute Nucleated RBC 0.02 H Nucleated RBC % (auto) 0.2 PT INR Sodium Potassium Chloride Carbon Dioxide Anion Gap BUN Creatinine Est Cr Clr Drug Dosing Est GFR ( Amer) Est GFR (Non-Af Amer) BUN/Creatinine Ratio Glucose POC Glucose 130 H 151 H Calcium Phosphorus Magnesium Total Bilirubin AST ALT Alkaline Phosphatase Total Protein Albumin Globulin Albumin/Globulin Ratio 10/09/19 10/09/19 10/09/19 07:20 07:20 07:29 WBC RBC Hgb Hct MCV MCH MCHC RDW Std Deviation RDW Coeff of Dung Plt Count MPV Immature Gran % (Auto) Neut % (Auto) Lymph % (Auto) Caroline % (Auto) Eos % (Auto) Baso % (Auto) Immature Gran # (Auto) Neut # (Auto) Lymph # (Auto) Caroline # (Auto) Eos # (Auto) Baso # (Auto) Absolute Nucleated RBC Nucleated RBC % (auto) PT 15.6 H INR 1.6 H Sodium 136 Potassium 3.3 L Chloride 103 Carbon Dioxide 22 Anion Gap 11.0 BUN 86 H Creatinine 5.39 H* D Est Cr Clr Drug Dosing 11.3 Est GFR ( Amer) 10.7 Est GFR (Non-Af Amer) 9.2 BUN/Creatinine Ratio 16.1 Glucose 99 POC Glucose 108 H Calcium 8.9 Phosphorus 4.4 Magnesium 2.1 Total Bilirubin 0.8 AST 24 ALT < 6 L Alkaline Phosphatase 114 Total Protein 6.8 Albumin 2.6 L Globulin 4.2 H Albumin/Globulin Ratio 0.6 L 10/09/19 11:04 WBC RBC Hgb Hct MCV MCH MCHC RDW Std Deviation RDW Coeff of Dung Plt Count MPV Immature Gran % (Auto) Neut % (Auto) Lymph % (Auto) Caroline % (Auto) Eos % (Auto) Baso % (Auto) Immature Gran # (Auto) Neut # (Auto) Lymph # (Auto) Caroline # (Auto) Eos # (Auto) Baso # (Auto) Absolute Nucleated RBC Nucleated RBC % (auto) PT INR Sodium Potassium Chloride Carbon Dioxide Anion Gap BUN Creatinine Est Cr Clr Drug Dosing Est GFR ( Amer) Est GFR (Non-Af Amer) BUN/Creatinine Ratio Glucose POC Glucose 117 H Calcium Phosphorus Magnesium Total Bilirubin AST ALT Alkaline Phosphatase Total Protein Albumin Globulin Albumin/Globulin Ratio Medications Administered Current Inpatient Medications Acetaminophen (Tylenol) 325 mg PO Q6H PRN PRN Reason: Pain or Fever Stop: 11/03/19 08:14 Last Admin: 10/08/19 21:30 Dose: 325 mg Documented by: Bisacodyl (Dulcolax) 10 mg OH DAILY PRN PRN Reason: Constipation Stop: 10/28/19 17:03 Cl[facility]idog[facility]) [facility] Stop: 10/30/19 08:59 Last Admin: 10/03/19 10:58 Dose: Not Given Documented by: Dextrose (Dextrose 50%) 25 - 50 ml IV UD PRN; Protocol PRN Reason: Hypoglycemia Protocol Stop: 10/28/19 17:03 Last Admin: 10/01/19 03:09 Dose: 25 ml Documented by: Ferrous Gluconate (Ferrous Gluconate) 324 [facility] Stop: 10/29/19 08:59 Last Admin: 10/09/19 08:30 Dose: 324 mg Documented by: Glucagon (Glucagen) 1 mg SQ UD PRN; Protocol PRN Reason: Hypoglycemia Protocol Stop: 10/28/19 17:03 Glucose (Glucose 40%) 15 - 30 gm PO UD PRN; Protocol PRN Reason: Hypoglycemia Protocol Stop: 10/28/19 17:03 Glucose (Dex4 Glucose) 4 - 8 tabs PO UD PRN; Protocol PRN Reason: Hypoglycemia Protocol Stop: 10/28/19 17:03 Hydromorphone HCl (Dilaudid) 0.5 mg IV Q8H PRN PRN Reason: Severe Pain Stop: 10/18/19 08:16 Furosemide 40 mg/ Syringe 4 mls @ 4 mls/min IV TID [facility] Stop: 11/08/19 13:59 Last Admin: 10/09/19 14:33 Dose: 4 mls/min Documented by: Insulin Aspart (Novolog Flexpen) 0 units SC ACHS [facility] Stop: 10/28/19 17:59 Last Admin: 10/09/19 14:26 Dose: Not Given Documented by: Lansoprazole (Prevacid) 30 mg PO BID [facility] Stop: 11/01/19 20:59 Last Admin: 10/09/19 08:30 Dose: 30 mg Documented by: Magnesium Hydroxide (Milk Of Magnesia) 30 ml PO Q6H PRN PRN Reason: Constipation Stop: 10/29/19 17:06 Metoprolol Succinate (Toprol Xl) 100 mg PO BID [facility] Stop: 10/28/19 20:59 Last Admin: 10/09/19 08:30 Dose: 100 mg Documented by: Miscellaneous (Carbohydrates For Hypoglycemia) 15 - 30 gm PO UD PRN PRN Reason: Hypoglycemia Protocol Stop: 10/28/19 17:03 Naloxone HCl (Narcan) 0.1 mg IV Q5M PRN PRN Reason: Oversedation/Resp Depression Stop: 10/29/19 17:06 Nitroglycerin (Nitrostat) 0.4 mg SL UD PRN PRN Reason: Chest Pain Stop: 10/29/19 17:06 Testosteroine Gel~ Non-Formulary Patient's Own Med 1 ea TOP DAILY [facility] Stop: 10/31/19 08:59 Last Admin: 10/09/19 08:52 Dose: 1 btl Documented by: Ondansetron HCl (Zofran) 4 mg IV Q6H PRN PRN Reason: Nausea And Vomiting Stop: 10/29/19 17:06 Polyethylene Glycol (Miralax Powder Packet) 17 gm PO DAILY [facility] Stop: 11/02/19 08:59 Last Admin: 10/09/19 08:30 Dose: 17 gm Documented by: Rosuvastatin Calcium (Crestor) 20 mg PO QAM [facility] Stop: 10/29/19 08:59 Last Admin: 10/09/19 08:47 Dose: 20 mg Documented by: Sennosides (Senokot) 17.2 mg PO HS [facility] Stop: 10/29/19 20:59 Last Admin: 10/08/19 21:25 Dose: 17.2 mg Documented by: Sertraline HCl (Zoloft) 50 mg PO QAM [facility] Stop: 10/29/19 08:59 Last Admin: 10/09/19 08:30 Dose: 50 mg Documented by: Tamsulosin HCl (Flomax) 0.4 mg PO QAM PRN PRN Reason: unable to void Stop: 10/29/19 17:06 Last Admin: 09/30/19 08:52 Dose: 0.4 mg Documented by: Tramadol HCl (Ultram) 25 mg PO Q6H PRN PRN Reason: Mild Pain Stop: 10/28/19 17:03 (1) Anemia Anemia type: unspecified type Qualified Code(s): D64.9 - Anemia, unspecified
[2019-10-09] MEDS ORDERED: Heparin IV Low Dose *NO* Bolus IV ONE (15:52)
[2019-10-09] MEDS: HEPARIN SODIUM/DEXTROSE 25,000 UNITS/500 ML BAG IV SCH (16:16)
--- NOTE | 2019-10-09 17:48 | Nephrology Progress Note ---
Date of Service October 09, 2019 Assessment & Plan (1) Acute worsening of stage 4 chronic kidney disease: advanced ckd 4 w/ chronic volume overload and very labile creatinine ranging as OP from upper 2's to mid 3's, most recently 3.8 on 09/25. creatinine w/ another big jump recently and now in mid 5's and oliguria has for now resolved -strict I/O -had trial of lasix on dobutamine (latter stopped today) >has had increased UOP in response and w/ improved but ongoing vol OL (eg lung findings) but tolerating>> for now w/ increased uop, attempt to temporize start of dialysis. -overall though rate of imprvement slow and will place TDC 10/11 -lowered lasix to 40 mg IV tid for now -primary service repleted K again today -daily bmp -cont FR to 1.5L when taking po and cont <2 gm Na diet >torsemide on hold/d-c'd -consent for dialysis obtained from pt w/ daughter lorraine present and on chart; is not decision maker >>all of above discussed today w/ pt, w/ Dr Meza (2) Fluid overload: somewhat improved fluid status no longer w/ oliguria > trial of lasix on dobutamine complete now on lasix alone ; UOP has increased past 36 hrs (3) Acute on chronic anemia: Hgb 6.9 on presentation w/ chronic gastritis w/ scant heme + emesis in ER INR 4.8>1.7; pt had actually been bridging w/ lovenox in prep for AVF surgery on 10/02 > per [facility], last coumadin dose was to be 09/26, then start lovenox 09/29 >had pRBC 2 units day of OR; had another unit 09/30. GI considering EGD >> post transfusion 10/02, hgb 8.4 this am -w/ starting HD will start epo (4) Closed fracture of left hip: s/p L cemented bipolar hip arthroplasty 09/29 Subjective no c/o of sob, edema, n/v; still soem hip/leg pain. tired this am when I saw him on rounds Review of Systems Review of Systems: All systems reviewed & are unremarkable except as noted in HPI & below Physical Exam Constitutional: well developed, well nourished, cooperative and comfortable; no acute distress (on RA =sitting up in bed) Eyes: EOM intact bilaterally ENMT: Ears: + hearing impairment; no external ear abnormality Nose: no external nose abnormality Mouth: + dry oral mucous membranes (very dry; mouth breather) Neck: no nuchal rigidity Respiratory: normal respiratory effort Auscultation: lungs clear to auscultation bilaterally (moves air better than prior exams) and + diminished lung sounds (but improved from previous exam) Cardiovascular: Rate/Rhythm: + irregularly irregular Heart Sounds: + murmur Vessels: + JVD Extremities: no edema (but baseball sized scrotal edema; trace - 1+ dependent edema) Gastrointestinal (Abdomen): Inspection/Auscultation: normal bowel sounds Percussion/Palpation: abdomen soft; abdomen nontender Musculoskeletal: Extremities: strength 5/5 throughout Skin: no rashes, warm and dry + ecchymosis and + pallor Neurologic: hoffman, fluent speech, no tremor Psychiatric: Orientation: oriented to person and oriented to place Affect: euthymic affect Insight: + limited insight Judgement: + limited judgement Results & Data Vital Signs (Past 12 Hours) Vital Signs Temp Pulse Pulse Resp BP Pulse Ox 10/09/19 15:41 36.7 C 92 H 18 119/67 97 10/09/19 11:42 36.9 C 70 18 122/75 96 10/09/19 08:13 36.6 C 84 18 113/61 97 Laboratory Results 10/09/19 07:20 10/09/19 07:20 (1) Fluid overload Hypervolemia type: other Qualified Code(s): E87.79 - Other fluid overload (2) Closed fracture of left hip Encounter type: initial encounter Qualified Code(s): S72.002A - Fracture of unspecified part of neck of left femur, initial encounter for closed fracture
[2019-10-09] MEDS: SENNA 8.6 MG TAB PO SCH (20:11)
[2019-10-09] MEDS: ACETAMINOPHEN 325 MG TAB PO PRN (20:19)
[2019-10-09 22:42] LABS: Partial Thromboplastin Ratio 1.9
[2019-10-09 22:57] LABS: Partial Thromboplastin Time 50.2 Seconds (21.0-31.0)
[2019-10-10 04:39] LABS: Basophils # (auto) 0.02 K/uL (0-0.2); Basophils % (auto) 0.2 %; Eosinophils # (auto) 0.43 K/uL (0-0.5); Eosinophils % (auto) 4.7 %; Hematocrit (blood only) 24.6 % (42-52); Immature Granulocytes % (auto) 1.1 %; Lymphocytes # (auto) 1.05 K/uL (1.2-3.4); Lymphocytes % (auto) 11.4 %; Mean Corpuscular Hgb Conc 32.5 g/dL (32-36); Mean Corpuscular Volume 89.1 fL (80-100); Mean Platelet Volume 9.6 fL (7.4-10.4); Monocytes % (auto) 13.1 %; Neutrophils # (auto) 6.38 K/uL (1.4-6.5); Neutrophils % (auto) 69.5 %; Platelet Count 176 K/uL (130-400); RDW Coefficient of Variation 16.4 % (11.5-14.5); RDW Standard Deviation 52.6 fL (36.4-46.3); Red Blood Count 2.76 M/uL (4.7-6.1); White Blood Count 9.18 K/uL (4.8-10.8)
[2019-10-10 05:10] LABS: BUN Creatinine Ratio 17.3 (10-20); Calcium 8.6 mg/dl (8.5-10.1); Creatinine Clr Calc Pharmacy 12.5 ml/min; Est GFR (African American) 12.1; Est GFR (Non-African American) 10.4; Potassium 3.5 mmol/L (3.5-5.1)
[2019-10-10 05:14] LABS: INR 1.4 (0.9-1.1); Partial Thromboplastin Ratio 2.2; Prothrombin Time 14.4 Seconds (9.0-12.0)
[2019-10-10 05:18] LABS: Partial Thromboplastin Time 58.6 Seconds (21.0-31.0)
[2019-10-10] MEDS: FERROUS GLUCONATE 324 MG TAB PO SCH (07:59)
[2019-10-10] MEDS: LANSOPRAZOLE 30 MG SOLTAB PO SCH ×2 (07:59→21:03)
[2019-10-10] MEDS: POLYETHYLENE (MIRALAX) 17 GM PACK PO SCH (07:59)
[2019-10-10] MEDS: METOPROLOL SUCC 50MG EXT REL TAB PO SCH ×2 (07:59→21:03)
[2019-10-10] MEDS: ROSUVASTATIN CALCIUM 20 MG TAB PO SCH (07:59)
[2019-10-10] MEDS: SERTRALINE HCL 50 MG TABLET PO SCH (07:59)
[2019-10-10] MEDS: INSULIN ASPART 100 UNITS/ML 3 ML PEN SC SCH ×4 (08:00→21:02)
[2019-10-10] MEDS: FUROSEMIDE 40 MG in SYRINGE 0 ML IV SCH ×2 (08:16→17:06)
[2019-10-10] MEDS: POTASSIUM CHLORIDE 20 MEQ TABCR PO SCH ×2 (08:16→17:06)
[2019-10-10] MEDS: TESTOSTERONE TOP SCH (08:22)
--- NOTE | 2019-10-10 09:05 | Hospitalist Progress Note ---
Date of Service October 10, 2019 Assessment & Plan (1) Fall: -fall at home -management as below (2) Closed fracture of left hip: Mr. Cottrell is an 79-year-old male who has significant PMH of CAD with history of stent 2012, chronic combined systolic and diastolic CHF, chronic atrial fibrillation anticoagulated on warfarin, history of VTACH s/p AICD, history of CVA, HTN, HLD, CKD stage IV, T2DM, history of right clear-cell kidney CA s/p ablation, chronic gastritis who presents to [facility] after sustaining mechanical fall at home prior to arrival. In ED patient did have left hip x-ray which revealed subcapital left hip frac ture. Hemoglobin and hematocrit decreased from baseline at 6.9 and 21.8, elevated INR 4.8, A/C CKD-4 BUN/creatinine 58/3.79 Chest x-ray revealed pulmonary vascular congestion and probable trace pleural effusions. He remained hemodynamically stable while in ED. He was typed and crossed and transfused 1 unit PRBC. Emesis in ED tested Heme positive -Patient received preop antibiotics with cefazolin -s/p on 09/28/19 left cemented bipolar hip arthoplasty for left displaced femoral neck fracture by Dr. Aditya Torres -Patient was then started on Zosyn for possible aspiration pneumonia, patient persistently hypotensive and now requiring pressor support with dobutamine peripherally -Postop care also with associated complication of needing dobutamine to raise blood pressure and worsening chronic kidney disease with concerns for possible plans for perm cath placement and dialysis -once patient completes hospitalization, he will need follow up with Dr. Aditya Torres (Orthopedic questions can be directed to Dr. Torres at [phone]) (3) Anemia: -from combination of anemia of chronic disease due to CKD stage IV, and blood loss anemia due to known gastritis -s/p 2 units PRBC on 09/28/19, 1 unit PRBC on 10/09/19, 1 unit PRBC on 09/30/19 -s/p 2 units Fresh frozen Plasma on 10/03/19 -hemoglobin is stable as 7.9 or low 8s history of right clear-cell kidney CA s/p ablation in the past -therefore procrit not be used to treat anemia (4) Chronic gastritis: -Recent EGD last admission 07/26/19 due to anemia; EGD revealed chronic gastritis with hemorrhage -patient has been on PPI -on this admission, patient has been seen by gastroenterology and EGD has been deferred -10/06/19: loose stools reported: FOBT is positive, C.difficile negative, and stool cultures no growth (5) Cirrhosis of liver: -well compensated cirrhosis as per gastroenterology note on 10/02/19 (6) Acute worsening of stage 4 chronic kidney disease: Acute Kidney Failure from (Ischemic) Acute tubular necrosis -as per nephrology that his etiology is multifactorial -admission creatinine was 3.79 on 10/08/19 and creatinine continued to rise with creatinine peaking to 6.6 on 10/05/19 -initial concerns have been whether or not patient would need perm cath plac ement for dialysis -however, patient continued to make urine and did not experience hyperkalemia -initial plans for perm cath placement have been held off since 10/04/19 in favor of diuresis strategies of Lasix 60 mg IV TID and patient has been able to diurese while continuing dobutamine for hypotension, increase cardiac output, and increase renal perfusion -10/09/19: renal function mildly improved with creatinine as 5.39. patient continues to make urine. however as per nephrology, patient's creatinine is not improved significantly to avoid the need for dialysis in near future. discussed with patient and patient's family member(daughter) that nephrology service coordinated with vascular service for perm cath placement on Wednesday10/11/19. Dobutamine is stopped on 10/09/19, Furosemide reduced from 60 mg IV TID to 40 mg IV TID. -10/10/19: creatinine is 4.88. discussed with Dr. Martin. she continues to recommend to proceed with perm cath placement on 10/11/19 by vascular service for plans of dialysis. further reduced Lasix as 40 mg IV BID (7) Hypotension: -patient is on dobutamine (8) Chronic atrial fibrillation: -Currently rate controlled on metoprolol succinate 100 mg twice daily -Supratherapeutic INR 4.8 on 09/28/19 admission day has been reversed -s/p 2 units Fresh frozen Plasma on 10/03/19 when INR is 2.4 -10/04/19 INR is 2.5 -coumadin remains held as it is unclear if patient may need perm cath and dialysis in immediate future -INR on 10/06/19 remains as 2.5 despite not being on coumadin recently -INR as 2.2 on 10/07/19, continue to hold systemic anticoagulation -INR is 1.6 on 10/09/19, continues to be off coumadin with perm cath for dialysis planned on 10/11/19 -on heparin drip as started by [employer] on 10/09/19 for anticoagulation; heparin drip will be stopped at 4:30 10/11/19 AM so there is time in between stopping blood thinner and proceed to get perm cath placement (9) Chronic systolic heart failure: -Secondary to ischemic cardiomyopathy -outpatient regimen of torsemide 100 mg daily and metoprolol mg BID -Continue metoprolol 100 mg BID, hold torsemide for now -patient has been on dobutamine on this admission to augment renal perfusion and left ventricular function -continue IV Lasix -monitor urine outputs (10) CAD (coronary artery disease): -on metoprolol -on statin -Plavix remains held for plans of perm cath and dialysis in immediate future -on IV Lasix (11) S/P ICD (internal cardiac defibrillator) procedure: -has defibrillator placed in the past because of history of Vtach (12) DMII (diabetes mellitus, type 2): -Last HbA1c 5.8 -Hold glipizide, is on NovoLog per protocol (13) DVT prophylaxis: SCD/TEDS Follow-up: PCP Dr. Thomas upon hospital discharge Daughter and Power of claims attorney Ruchi ([phone]) Subjective Patient seen and examined at bedside. Breathing on room air. no shortness of breath. eating the food. no chest pain. no abdomen pain. makes urine. on heparin drip as started by [employer] on 10/09/19 for anticoagulation. 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 Patient affirms okay. But he does not elaborate much. Patient's daughter is updated of hospital plans. Review of Systems Review of Systems: All systems reviewed & are unremarkable except as noted in HPI & below Physical Exam Constitutional: cooperative Eyes: PERRL, conjunctivae normal, anicteric sclerae EOM intact bilaterally ENMT: external ear and nose normal, oropharynx normal Neck: normal visual inspection Respiratory: normal respiratory effort Cardiovascular: RRR, no murmur, no edema Rate/Rhythm: regular rate and + irregularly irregular Gastrointestinal (Abdomen): normal bowel sounds, soft, nontender, no hepatosplenomegaly Musculoskeletal: Head/Neck/Chest: normocephalic and head atraumatic Neurologic: awake Psychiatric: Orientation: cooperative Results & Data Vital Signs (Past 12 Hours) Vital Signs Temp Pulse Pulse Resp BP Pulse Ox 10/10/19 08:02 37.1 C 81 18 113/68 94 10/10/19 03:36 36.9 C 88 16 103/63 92 10/09/19 23:49 36.9 C 87 20 106/67 93 (1) Fall Encounter type: initial encounter Qualified Code(s): W19.XXXA - Unspecified fall, initial encounter (2) Closed fracture of left hip Encounter type: initial encounter Qualified Code(s): S72.002A - Fracture of unspecified part of neck of left femur, initial encounter for closed fracture (3) Anemia Anemia type: unspecified type Qualified Code(s): D64.9 - Anemia, unspecified (4) CAD (coronary artery disease) Coronary Disease-Associated Artery/Lesion type: [place] artery [place] vs. transplanted heart: [place] heart Associated angina: without angina Qualified Code(s): I25.10 - Atherosclerotic heart disease of [place] coronary artery without angina pectoris (5) DMII (diabetes mellitus, type 2) Diabetes mellitus complication status: without complication Diabetes mellitus custodial insulin use: without custodial use Qualified Code(s): E11.9 - Type 2 diabetes mellitus without complications
--- NOTE | 2019-10-10 09:48 | Nephrology Progress Note ---
Date of Service October 10, 2019 Assessment & Plan (1) Acute worsening of stage 4 chronic kidney disease: advanced ckd 4 w/ chronic volume overload and very labile creatinine ranging as OP from upper 2's to mid 3's, most recently 3.8 on 09/25. creatinine w/ another big jump recently and now in mid 5's and oliguria has for now resolved -strict I/O -had trial of lasix on dobutamine (latter stopped today) >has had increased UOP in response and w/ improved but ongoing vol OL (eg lung findings) but tolerating>> for now w/ increased uop, attempt to temporize start of dialysis. -overall though rate of imprvement slow and will place TDC 10/11 -lowered further lasix to 40 mg IV bid for now -primary service repleted K again today > 2 doses only -daily bmp -cont FR to 1.5L when taking po and cont <2 gm Na diet >torsemide on hold/d-c'd -consent for dialysis obtained from pt w/ daughter lorraine present and on chart; is not decision maker (2) Fluid overload: somewhat improved fluid status no longer w/ oliguria > trial of lasix on dobutamine complete now on lasix alone ; UOP has increased past 36 hrs (3) Acute on chronic anemia: Hgb 6.9 on presentation w/ chronic gastritis w/ scant heme + emesis in ER INR 4.8>1.7; pt had actually been bridging w/ lovenox in prep for AVF surgery on 10/02 > per epic, last coumadin dose was to be 09/26, then start lovenox 09/29 >had pRBC 2 units day of OR; had another unit 09/30. GI considering EGD >> post transfusion 10/02, hgb 8.4 this am -w/ starting HD will start epo (4) Closed fracture of left hip: s/p L cemented bipolar hip arthroplasty 09/29 Subjective no c/o on rounds this am; very tired; no sob, voiding well, no edema, no cough Review of Systems Constitutional: + fatigue and + weakness Cardiovascular: + edema (dependent/scrotal) Genitourinary: + problem reported (toleratign brow[place]) Musculoskeletal: + joint pain (L hip) Hematologic / Lymphatic: + easy bleeding Physical Exam Constitutional: well developed, well nourished, cooperative and comfortable; no acute distress (on RA =sitting up in bed) Eyes: EOM intact bilaterally ENMT: Ears: + hearing impairment; no external ear abnormality Nose: no external nose abnormality Mouth: + dry oral mucous membranes (very dry; mouth breather) Neck: no nuchal rigidity Respiratory: normal respiratory effort Auscultation: lungs clear to auscultation bilaterally and + diminished lung sounds Cardiovascular: Rate/Rhythm: + irregularly irregular Heart Sounds: + murmur Vessels: + JVD Extremities: no edema (but baseball sized scrotal edema; trace - 1+ dependent edema) Gastrointestinal (Abdomen): Inspection/Auscultation: normal bowel sounds Percussion/Palpation: abdomen soft; abdomen nontender Musculoskeletal: Extremities: strength 5/5 throughout Skin: no rashes, warm and dry + ecchymosis and + pallor Psychiatric: Orientation: oriented to person and oriented to place Affect: euthymic affect Insight: + limited insight Judgement: + limited judgement Results & Data Vital Signs (Past 12 Hours) Vital Signs Temp Pulse Pulse Resp BP Pulse Ox 10/10/19 08:02 37.1 C 81 18 113/68 94 10/10/19 03:36 36.9 C 88 16 103/63 92 10/09/19 23:49 36.9 C 87 20 106/67 93 Laboratory Results 10/10/19 04:24 10/10/19 04:24 (1) Fluid overload Hypervolemia type: other Qualified Code(s): E87.79 - Other fluid overload (2) Closed fracture of left hip Encounter type: initial encounter Qualified Code(s): S72.002A - Fracture of unspecified part of neck of left femur, initial encounter for closed fracture
[2019-10-10] MEDS: ACETAMINOPHEN 325 MG TAB PO PRN ×2 (11:31→21:33)
--- NOTE | 2019-10-10 12:51 | Cardiology Progress Note ---
Date of Service October 10, 2019 Assessment & Plan (1) CKD (chronic kidney disease) stage 4, GFR 15-29 ml/min: Patient postoperatively has had worsening renal function For permacath placement 10/11/2019 and subsequent initiation of hemodialysis (2) Ischemic cardiomyopathy: (3) S/P ICD (internal cardiac defibrillator) procedure: (4) Anemia: Hemoglobin 8 has had difficulties with gradual decline in the past and required transfusion. Procrit not in use due to history of renal cell carcinoma (5) Anticoagulant long-term use: INR of 1.6 today For permacath placement 10/11/2019 We will initiate low-dose IV heparin without bolus at this time For cardioembolic stroke prevention Plavix previously prescribed for history of CVA, also held pending cath placement Warfarin to be restarted status post cath placement Subjective Patient seen and examined seated upright in bed. No complaints overnight and specifically denies any chest pain, shortness of breath, palpations, lightheadedness, dizziness or syncope. Telemetry reviewed: A. fib with underlying left bundle branch block pattern Review of Systems Review of Systems: All systems reviewed & are unremarkable except as noted in HPI & below Physical Exam Physical Exam: General: Awake, alert and oriented x 3. No acute distress. HEENT: Normocephalic, atraumatic. Pupils equal, round and reactive to light and accommodation. Extraocular muscles are intact. Anicteric sclera. Moist mucous membranes. Neck: No JVD. No bruit. Cardiovascular: irregularly irregular, unable to appreciate murmur, rub or gallop. Pulmonary: Clear to auscultation bilaterally. No rales, rhonchi, or wheezing. Abdomen: Bowel sounds x 4, soft. No rebound, guarding or tenderness. No organomegaly. Extremities: No clubbing, cyanosis or edema. +2 pedal pulses bilaterally. Skin: Warm and dry. Results & Data Vital Signs (Past 12 Hours) Vital Signs Temp Pulse Resp BP BP Pulse Ox 10/10/19 11:48 36.9 C 74 18 101/54 L 97 10/10/19 08:02 37.1 C 81 18 113/68 94 10/10/19 03:36 36.9 C 88 16 103/63 92 (1) Anemia Anemia type: unspecified type Qualified Code(s): D64.9 - Anemia, unspecified
[2019-10-10] MEDS: HEPARIN SODIUM/DEXTROSE 25,000 UNITS/500 ML BAG IV SCH (14:37)
[2019-10-10] MEDS: SENNA 8.6 MG TAB PO SCH (21:03)
[2019-10-11] MEDS ORDERED: Nursing to Pharmacy Communication ONE ×2 (00:42→20:40)
[2019-10-11 04:44] LABS: Basophils # (auto) 0.05 K/uL (0-0.2); Basophils % (auto) 0.4 %; Eosinophils % (auto) 4.4 %; Hematocrit (blood only) 23.7 % (42-52); Hemoglobin 7.7 g/dL (14.0-18.0); Immature Granulocytes # (auto) 0.09 K/uL (0.00-0.02); Immature Granulocytes % (auto) 0.8 %; Lymphocytes # (auto) 1.24 K/uL (1.2-3.4); Mean Corpuscular Hemoglobin 28.8 pg (25-34); Mean Corpuscular Hgb Conc 32.5 g/dL (32-36); Mean Corpuscular Volume 88.8 fL (80-100); Mean Platelet Volume 9.6 fL (7.4-10.4); Monocytes # (auto) 1.48 K/uL (0.11-0.59); Monocytes % (auto) 13.2 %; Neutrophils # (auto) 7.88 K/uL (1.4-6.5); Neutrophils % (auto) 70.2 %; Platelet Count 189 K/uL (130-400); RDW Coefficient of Variation 16.5 % (11.5-14.5); RDW Standard Deviation 52.4 fL (36.4-46.3); Red Blood Count 2.67 M/uL (4.7-6.1); White Blood Count 11.24 K/uL (4.8-10.8)
[2019-10-11 05:04] LABS: Basophilic Stippling 1+; Ovalocytes 1+
[2019-10-11 05:05] LABS: Albumin Level 2.6 gm/dl (3.4-5.0); BUN Creatinine Ratio 17.5 (10-20); Calcium 8.5 mg/dl (8.5-10.1); Creatinine Clr Calc Pharmacy 14.1 ml/min; Est GFR (Non-African American) 12.1; Potassium 3.8 mmol/L (3.5-5.1)
[2019-10-11 05:06] LABS: INR 1.4 (0.9-1.1); Partial Thromboplastin Ratio 2.2; Prothrombin Time 14.1 Seconds (9.0-12.0)
[2019-10-11 05:07] LABS: Albumin Globulin Ratio 0.7 (0.9-2); Bilirubin,Total 0.7 mg/dl (0.2-1); Total Protein 6.6 gm/dl (6.4-8.2)
[2019-10-11 05:51] LABS: Partial Thromboplastin Time 59.4 Seconds (21.0-31.0)
[2019-10-11] MEDS: INSULIN ASPART 100 UNITS/ML 3 ML PEN SC SCH ×4 (06:09→20:53)
[2019-10-11] MEDS: ROSUVASTATIN CALCIUM 20 MG TAB PO SCH (07:46)
[2019-10-11] MEDS: LANSOPRAZOLE 30 MG SOLTAB PO SCH ×2 (07:46→20:43)
[2019-10-11] MEDS: POLYETHYLENE (MIRALAX) 17 GM PACK PO SCH (07:46)
[2019-10-11] MEDS: FERROUS GLUCONATE 324 MG TAB PO SCH (07:46)
[2019-10-11] MEDS: METOPROLOL SUCC 50MG EXT REL TAB PO SCH ×2 (07:47→20:43)
[2019-10-11] MEDS: SERTRALINE HCL 50 MG TABLET PO SCH (07:48)
[2019-10-11] MEDS: FUROSEMIDE 40 MG in SYRINGE 0 ML IV SCH ×2 (07:48→18:01)
[2019-10-11] MEDS: ACETAMINOPHEN 325 MG TAB PO PRN (10:26)
[2019-10-11] MEDS: TESTOSTERONE TOP SCH (10:30)
[2019-10-11] MEDS ORDERED: CEFAZOLIN 1000MG 1,000 MG/7.5 ML SYR IV SCH (12:00)
--- NOTE | 2019-10-11 14:13 | Hospitalist Progress Note ---
Date of Service October 11, 2019 Assessment & Plan (1) Acute worsening of stage 4 chronic kidney disease: Likely 2/2 ATN -admission creatinine was 3.79 on 10/08/19 and creatinine continued to rise with creatinine peaking to 6.6 on 10/05/19. Required dobutamine at one point this hospitalization. Consideration for perm cath placement and initiation of dialysis twice during this hospitalization, however, continued monitoring reveals improvement and this was avoided. Was NPO overnight, but with improvement in renal function this was cancelled earlier today. Continues on Lasix per Nephrology. (2) Chronic atrial fibrillation: Rate controlled with Toprol XL 100mg PO BID. Has a h/o stroke. Requires bridge with heparin in setting of renal disease. Goal INR 2-3. (3) Fall: s/p fall at home with subsequent L hip fracture (4) Closed fracture of left hip: s/p left hip hemiarthroplasty for displaced femoral neck fracture by Dr. Aditya Torres. He is approximately two weeks post-op and doing well from a pain and functional standpoint. Will discuss need for staple removal with Ortho team. (5) Anemia: Multifactorial 2/2 anemia of CKD, ACD, and acute blood loss anemia 2/2 gastritis. Has received 4 units of blood this admission. Episode of hematemesis upon admission. GI was consulted and felt this was consistent with chronic gastritis. Recent EGD performed in Jul 2019 revealed this. Pt has cirrhosis, however, no esophageal varices. A repeat EGD was not pursued this admission for risks associated with the repeat procedure in the setting of acute illness. He remains on PPI therapy and iron supplementation. H/H appears stable and no further episodes of hematemesis. Procrit given per Nephro. (6) Chronic gastritis: per EGD Jul 2019. Cont Lansoprozole. (7) Cirrhosis of liver: compensated, no known esophageal varices. Cont outpatient GI monitoring. (8) Chronic systolic heart failure: 2/[address]. Initially required dobutamine to augment left ventricular function and renal perfusion, but now is compensated. Torsemide held as patient is on Lasix IV BID. Cont medical management with Toprol XL, Crestor 20qAM. Not on ASA in setting of Plavix and warfarin. ACEI/ARB contraindicated with renal dysfunction. (9) CAD (coronary artery disease): chronic, stable. Cont medical management as above. (10) DMII (diabetes mellitus, type 2): Controlled, cont ISS with loose carb coverage (11) DVT prophylaxis: heparin drip/coumadin DNR/DNI Dispo-to rehab once INR therapeutic. Assessment and plan was discussed with both daughter and granddaughter who verbalized understanding. All questions were answered. Chelly Irving DO [facility] Hospitalist Subjective feeling well, ambulating, not reporting pain. Daughter at bedside and agrees with scheduled tylenol, however, out of concern that he may not express his pain needs soon enough. Questions raised about when his post-op krystin would be removed. Discussed post-discharge plans. Pt is eating and mentating at [facility]. Denies SOB or chest pain. Review of Systems Review of Systems: All systems reviewed & are unremarkable except as noted in HPI & below Physical Exam Physical Exam: CONSTITUTIONAL: WNWD, vitals as above, generally well- appearing EYES: normal conjunctivae, no scleral icterus ENT: MMM RESPIRATORY: clear to auscultation bilaterally, no crackles, rales or wheezes, normal respiratory effort CARDIOVASCULAR: regular rate and rhythm, S1 and 2 heard without murmurs, gallops or rubs, no JVD, no peripheral edema GASTROINTESTINAL: normal bowel sounds, soft, nontender, nondistended MUSCULOSKELETAL: deconditioned, moving all extremities equally and with good effort against resistance, head is normocephalic and atraumatic SKIN: warm and dry, L lateral hip incision site with krystin in place. Covered with dressing that is c/d/i NEUROLOGIC: CN 2-12 grossly intact, no sensory deficit, normal cognition, no gross focal deficits. PSYCHIATRIC: alert cooperative and oriented to person, place and time. Results & Data Vital Signs (Past 12 Hours) Vital Signs Temp Pulse Pulse Pulse Resp BP Pulse Ox 10/11/19 11:50 36.6 C 90 19 114/57 L 98 10/11/19 07:35 37.1 C 79 18 99/63 L 93 10/11/19 03:55 36.7 C 70 17 106/61 94 10/11/19 02:17 79 Laboratory Results Short CBC 10/11/19 Range/Units 04:16 WBC 11.24 H (4.8-10.8) K/uL Hgb 7.7 L (14.0-18.0) g/dL Hct 23.7 L (42-52) % Plt Count 189 (130-400) K/uL BMP 10/11/19 04:16 Sodium 139 Potassium 3.8 Chloride 106 Carbon Dioxide 24 BUN 76 H Creatinine 4.32 H D Glucose 106 H Calcium 8.5 Liver Function 10/11/19 Range/Units 04:16 Total Bilirubin 0.7 (0.2-1) mg/dl AST 17 (15-37) U/L ALT 7 L (12-78) U/L Alkaline Phosphatase 107 (45-117) U/L Albumin 2.6 L (3.4-5.0) gm/dl Medications Administered Current Inpatient Medications Acetaminophen (Tylenol) 325 mg PO Q6H PRN PRN Reason: Pain or Fever Stop: 11/03/19 08:14 Last Admin: 10/11/19 10:26 Dose: 325 mg Documented by: Bisacodyl (Dulcolax) 10 mg IN DAILY PRN PRN Reason: Constipation Stop: 10/28/19 17:03 Clopidogrel Bisulfate (Plavix) 75 mg PO [facility] Stop: 10/30/19 08:59 Last Admin: 10/03/19 10:58 Dose: Not Given Documented by: Dextrose (Dextrose 50%) 25 - 50 ml IV UD PRN; Protocol PRN Reason: Hypoglycemia Protocol Stop: 10/28/19 17:03 Last Admin: 10/01/19 03:09 Dose: 25 ml Documented by: Ferrous Gluconate (Ferrous Gluconate) 324 mg PO [facility] Stop: 10/29/19 08:59 Last Admin: 10/11/19 07:46 Dose: 324 mg Documented by: Glucagon (Glucagen) 1 mg SQ UD PRN; Protocol PRN Reason: Hypoglycemia Protocol Stop: 10/28/19 17:03 Glucose (Glucose 40%) 15 - 30 gm PO UD PRN; Protocol PRN Reason: Hypoglycemia Protocol Stop: 10/28/19 17:03 Glucose (Dex4 Glucose) 4 - 8 tabs PO UD PRN; Protocol PRN Reason: Hypoglycemia Protocol Stop: 10/28/19 17:03 Hydromorphone HCl (Dilaudid) 0.5 mg IV Q8H PRN PRN Reason: Severe Pain Stop: 10/18/19 08:16 Furosemide 40 mg/ Syringe 4 mls @ 4 mls/min IV [id number] [facility] Stop: 11/09/19 08:59 Last Admin: 10/11/19 07:48 Dose: 4 mls/min Documented by: Cefazolin Sodium (Ancef 1000mg) 1,000 mg in 7.5 mls @ 2.5 mls/min IV PREOP [facility] Stop: 10/11/19 15:00 Last Admin: 10/11/19 13:22 Dose: Not Given Documented by: Insulin Aspart (Novolog Flexpen) 0 units SC Q6 [facility] Stop: 11/10/19 05:59 Last Admin: 10/11/19 06:09 Dose: Not Given Documented by: Lansoprazole (Prevacid) 30 mg PO BID [facility] Stop: 11/01/19 20:59 Last Admin: 10/11/19 07:46 Dose: 30 mg Documented by: Magnesium Hydroxide (Milk Of Magnesia) 30 ml PO Q6H PRN PRN Reason: Constipation Stop: 10/29/19 17:06 Metoprolol Succinate (Toprol Xl) 100 mg PO BID [facility] Stop: 10/28/19 20:59 Last Admin: 10/11/19 07:47 Dose: 100 mg Documented by: Miscellaneous (Carbohydrates For Hypoglycemia) 15 - 30 gm PO UD PRN PRN Reason: Hypoglycemia Protocol Stop: 10/28/19 17:03 Naloxone HCl (Narcan) 0.1 mg IV Q5M PRN PRN Reason: Oversedation/Resp Depression Stop: 10/29/19 17:06 Nitroglycerin (Nitrostat) 0.4 mg SL UD PRN PRN Reason: Chest Pain Stop: 10/29/19 17:06 Testosteroine Gel~ Non-Formulary Patient's Own Med 1 ea TOP DAILY [facility] Stop: 10/31/19 08:59 Last Admin: 10/10/19 08:22 Dose: 1 btl Documented by: Ondansetron HCl (Zofran) 4 mg IV Q6H PRN PRN Reason: Nausea And Vomiting Stop: 10/29/19 17:06 Polyethylene Glycol (Miralax Powder Packet) 17 gm PO DAILY [facility] Stop: 11/02/19 08:59 Last Admin: 10/11/19 07:46 Dose: Not Given Documented by: Rosuvastatin Calcium (Crestor) 20 mg PO QAM [facility] Stop: 10/29/19 08:59 Last Admin: 10/11/19 07:46 Dose: 20 mg Documented by: Sennosides (Senokot) 17.2 mg PO HS [facility] Stop: 10/29/19 20:59 Last Admin: 10/10/19 21:03 Dose: 17.2 mg Documented by: Sertraline HCl (Zoloft) 50 mg PO QAM [facility] Stop: 10/29/19 08:59 Last Admin: 10/11/19 07:48 Dose: 50 mg Documented by: Tamsulosin HCl (Flomax) 0.4 mg PO QAM PRN PRN Reason: unable to void Stop: 10/29/19 17:06 Last Admin: 09/30/19 08:52 Dose: 0.4 mg Documented by: Tramadol HCl (Ultram) 25 mg PO Q6H PRN PRN Reason: Mild Pain Stop: 10/28/19 17:03 Warfarin Sodium (Coumadin) 5 mg PO DAILY@1600 [facility] Stop: 11/10/19 15:59 (1) DMII (diabetes mellitus, type 2) Diabetes mellitus complication status: without complication Diabetes mellitus fpc insulin use: without fpc use Qualified Code(s): E11.9 - Type 2 diabetes mellitus without complications (2) CAD (coronary artery disease) Associated angina: without angina Coronary Disease-Associated Artery/Lesion type: [place] artery [place] vs. transplanted heart: [place] heart Qualified Code(s): I25.10 - Atherosclerotic heart disease of [place] coronary artery without angina pectoris (3) Anemia Anemia type: unspecified type Qualified Code(s): D64.9 - Anemia, unspecified (4) Fall Encounter type: initial encounter Qualified Code(s): W19.XXXA - Unspecified fall, initial encounter (5) Closed fracture of left hip Encounter type: initial encounter Qualified Code(s): S72.002A - Fracture of unspecified part of neck of left femur, initial encounter for closed fracture
--- NOTE | 2019-10-11 14:34 | Orthopedic Consultation ---
Date of Consultation October 11, 2019 History of Present Illness Attending Physician: Chelly Irving, DO History of Present Illness MEDICATIONS: * Resume previous medications unless instructed otherwise by your surgeon. * Always take pain medication on a full stomach or with food to avoid upset stomach. * Do not drink alcohol or drive while taking narcotics. * Ibuprofen or Tylenol may be taken if narcotic not needed. SPECIAL CARE INSTRUCTIONS: __ None __ Keep extremity elevated and iced x 48 hours; apply ice 20-30 minutes 8-10 times/day. May remove at night. __ Crutches __ May discard when able __ Brace/Post-op shoe __ 24 hrs/day __ Remove at night __ Dressing __ Maintain until seen in office, may shower with plastic over site __ Remove dressings in 24-48 hours and then may shower __ Cover incisions with band-aids after showering __ Do not remove steri-strips Call physician if chills or temperature rises above 102 degrees or pain unrelieved by prescribed pain medications. Office [phone] Allergies Allergy/AdvReac Type Severity Reaction Status Date / Time fentanyl Allergy Severe Decreased Verified 09/28/19 13:19 oxygen saturation, low RR, unresponsive midazolam Allergy Severe Decreased Verified 09/28/19 13:19 oxygen saturation, low RR, unresponsive. codeine Allergy Unknown GI SYMPTOMS Verified 09/28/19 13:19 promethazine [From Phenergan] AdvReac Severe severe Verified 09/28/19 13:19 fatigue BRIANA Inhibitors AdvReac Mild cough, Verified 09/28/19 13:19 cefuroxime AdvReac Mild GI SYMPTOMS Verified 09/28/19 13:19 Home Medications Home Medications Medication Instructions Recorded Confirmed Type clopidogrel [Plavix] 75 mg PO QAM 08/16/18 09/28/19 History coenzyme Q10 [Co Q-10] 10 mg PO QAM 08/16/18 09/28/19 History cyanocobalamin (vitamin B-12) 1,000 mcg PO QAM 08/16/18 09/28/19 History ferrous gluconate 324 mg PO QAM 08/16/18 09/28/19 History multivitamin [Multiple Vitamins] 1 tab PO QAM 08/16/18 09/28/19 History nitroglycerin [Nitrostat] 0.4 mg SUBLINGUAL UD PRN 08/16/18 09/28/19 History rosuvastatin [Crestor] 20 mg PO QAM 08/16/18 09/28/19 History sertraline 50 mg PO QAM 08/16/18 09/28/19 History glipizide 2.5 mg PO BID #30 tab 02/01/19 09/28/19 Rx dextromethorphan-guaifenesin 1 tab PO Q12H PRN 03/17/19 09/28/19 History [Mucinex DM] testosterone 1 packet TRANSDERMAL DAILY 03/17/19 09/28/19 History warfarin 5 mg PO [id number] 03/17/19 09/28/19 History torsemide 100 mg PO DAILY 05/02/19 09/28/19 History pantoprazole 40 mg PO BID 30 Days #60 tab 07/28/19 09/28/19 Rx metoprolol succinate 100 mg PO BID 09/28/19 09/28/19 History warfarin 2.5 mg PO WK 09/28/19 09/28/19 History Patient History Medical History Anemia in chronic kidney disease (Chronic) Anticoagulant long-term use (Chronic) Ascites (Resolved) Basal cell carcinoma (Chronic) CAD (coronary artery disease) (Chronic) "2005 - PCI to LAD cath 2011 - no significant obstructive disease" CAD (coronary artery disease) (Chronic) Chronic systolic heart failure (Chronic) Cirrhosis of liver (Chronic) CKD (chronic kidney disease), stage IV (Chronic) CVA (cerebral vascular accident) (Chronic) Depression (Chronic) DMII (diabetes mellitus, type 2) (Chronic) Gross hematuria (Resolved) History of renal carcinoma (Chronic) HTN (hypertension) (Chronic) Ischemic cardiomyopathy (Chronic) Myocardial infarction Pericardial effusion (Resolved) SBP (spontaneous bacterial peritonitis) (Resolved) Squamous cell carcinoma (Chronic) V tach (Chronic) "s/p AICD placement" Surgical History History of cataract surgery (Chronic) History of prior ablation treatment (Chronic) CT guided tissue ablation R kidney S/P ICD (internal cardiac defibrillator) procedure (Chronic) Family History Father Coronary heart disease Mother Coronary heart disease Social History Preferred Language: Hungarian Communication Ability: Effective Visual Impairment: No Limitations Lead Blender Required: No Beliefs That Will Affect Care: None marital status: Current Living Situation: Spouse and Family Other Information That Helps Us Care for You: No Feels Safe at Home: Yes Safety Concerns: Feels Safe At This Time Smoking Status: Former smoker Tobacco Type: cigarettes ; Do You Dip or Chew Tobacco: Yes ; Second Hand Exposure: No ; Tobacco Cessation Education Requested by Patient: No Hx Alcohol Use: No Hx Substance Use: No Review of Systems Review of Systems: All systems reviewed & are unremarkable except as noted in HPI & below Results & Data Vital Signs (Past 12 Hours) Vital Signs Temp Pulse Pulse Resp BP Pulse Ox 10/11/19 11:50 36.6 C 90 19 114/57 L 98 10/11/19 07:35 37.1 C 79 18 99/63 L 93 10/11/19 03:55 36.7 C 70 17 106/61 94 Laboratory Results Laboratory Tests 10/10/19 04:24 Hgb 8.0 L Active Medications Generic Name Dose Route Start Last Admin Trade Name Freq PRN Reason Stop Dose Admin Acetaminophen 325 mg 10/04/19 08:15 10/11/19 10:26 Tylenol PO 11/03/19 08:14 325 mg Q6H PRN Administration Pain or Fever Bisacodyl 10 mg 09/28/19 17:04 Dulcolax DE 10/28/19 17:03 DAILY PRN Constipation Clopidogrel Bisulfate 75 mg 09/30/19 09:00 10/03/19 10:58 Plavix PO 10/30/19 08:59 Not Given QAM PAVAN Dextrose 25 - 50 ml 09/28/19 17:04 10/01/19 03:09 Dextrose 50% IV 10/28/19 17:03 25 ml UD PRN Administration Hypoglycemia Protocol Protocol Ferrous Gluconate 324 mg 09/29/19 09:00 10/11/19 07:46 Ferrous Gluconate PO 10/29/19 08:59 324 mg QAM PAVAN Administration Glucagon 1 mg 09/28/19 17:04 Glucagen SQ 10/28/19 17:03 UD PRN Hypoglycemia Protocol Protocol Glucose 15 - 30 gm 09/28/19 17:04 Glucose 40% PO 10/28/19 17:03 UD PRN Hypoglycemia Protocol Protocol Glucose 4 - 8 tabs 09/28/19 17:04 Dex4 Glucose PO 10/28/19 17:03 UD PRN Hypoglycemia Protocol Protocol Hydromorphone HCl 0.5 mg 10/04/19 08:17 Dilaudid IV 10/18/19 08:16 Q8H PRN Severe Pain Furosemide 40 mg/ Syringe 4 mls @ 4 mls/min 10/10/19 09:00 10/11/19 07:48 IV 11/09/19 08:59 4 mls/min BID17 PAVAN Administration Cefazolin Sodium 1,000 mg in 7.5 mls @ 2.5 mls/min 10/11/19 12:00 10/11/19 13:22 Ancef 1000mg IV 10/11/19 15:00 Not Given PREOP PAVAN Insulin Aspart 0 units 10/11/19 06:00 10/11/19 06:09 Novolog Flexpen SC 11/10/19 05:59 Not Given Q6 PAVAN Lansoprazole 30 mg 10/02/19 21:00 10/11/19 07:46 Prevacid PO 11/01/19 20:59 30 mg BID PAVAN Administration Magnesium Hydroxide 30 ml 09/29/19 17:07 Milk Of Magnesia PO 10/29/19 17:06 Q6H PRN Constipation Metoprolol Succinate 100 mg 09/28/19 21:00 10/11/19 07:47 Toprol Xl PO 10/28/19 20:59 100 mg BID PAVAN Administration Miscellaneous 15 - 30 gm 09/28/19 17:04 Carbohydrates For Hypoglycemia PO 10/28/19 17:03 UD PRN Hypoglycemia Protocol Naloxone HCl 0.1 mg 09/29/19 17:07 Narcan IV 10/29/19 17:06 Q5M PRN Oversedation/Resp Depression Nitroglycerin 0.4 mg 09/29/19 17:07 Nitrostat SL 10/29/19 17:06 UD PRN Chest Pain Testosteroine Gel~ 1 ea 10/01/19 09:00 10/10/19 08:22 Non-Formulary TOP 10/31/19 08:59 1 btl Patient's Own Med DAILY PAVAN Administration Ondansetron HCl 4 mg 09/29/19 17:07 Zofran IV 10/29/19 17:06 Q6H PRN Nausea And Vomiting Polyethylene Glycol 17 gm 10/03/19 09:00 10/11/19 07:46 Miralax Powder Packet PO 11/02/19 08:59 Not Given DAILY PAVAN Rosuvastatin Calcium 20 mg 09/29/19 09:00 10/11/19 07:46 Crestor PO 10/29/19 08:59 20 mg QAM PAVAN Administration Sennosides 17.2 mg 09/29/19 21:00 10/10/19 21:03 Senokot PO 10/29/19 20:59 17.2 mg HS PAVAN Administration Sertraline HCl 50 mg 09/29/19 09:00 10/11/19 07:48 Zoloft PO 10/29/19 08:59 50 mg QAM PAVAN Administration Tamsulosin HCl 0.4 mg 09/29/19 17:07 09/30/19 08:52 Flomax PO 10/29/19 17:06 0.4 mg QAM PRN Administration unable to void Tramadol HCl 25 mg 10/06/19 14:24 Ultram PO 10/28/19 17:03 Q6H PRN Mild Pain Warfarin Sodium 5 mg 10/11/19 16:00 Coumadin PO 11/10/19 15:59 DAILY@1600 [facility] Care Time/CCT Total # of Minutes Spent Total Time Spent with Patient: Total time spent is greater than 50% in coordination of care (as documented) at patient's floor/unit and/or counseling patient:
--- NOTE | 2019-10-11 16:28 | Nephrology Progress Note ---
Date of Service October 11, 2019 Assessment & Plan (1) Acute worsening of stage 4 chronic kidney disease: advanced ckd 4 w/ chronic volume overload and very labile creatinine ranging as OP from upper 2's to mid 3's, most recently 3.8 on 09/25. creatinine jumped post op w/ obligate diuresis and peaked at 6.6 on ; dobutamine stopped on approx w/ continued improvement in creatinine thereafter. had oliguria earlier this admission but resolved. -strict I/O -cancelled TDC for today ([facility] b/c he is improving so well -cont lasix to 40 mg IV bid for now -primary service repleted K again today > 2 doses only -daily bmp -cont FR t1.5L and cont <2 gm Na diet >torsemide on hold/d-c'd -consent for dialysis obtained from pt w/ daughter lorraine present and on chart; is not decision maker -remove browning (2) Fluid overload: somewhat improved fluid status no longer w/ oliguria > trial of lasix on dobutamine complete now on lasix alone ; UOP has increased past 36 hrs (3) Acute on chronic anemia: Hgb 6.9 on presentation w/ chronic gastritis w/ scant heme + emesis in ER INR 4.8>1.7; pt had actually been bridging w/ lovenox in prep for AVF surgery on 10/02 > per epic, last coumadin dose was to be 09/26, then start lovenox 09/29 >had pRBC 2 units day of OR; had another unit 09/30. GI considering EGD >> post transfusion 10/02, hgb 7.7 this am -will give dose of epo today 81700 units SQ x 1 (4) Closed fracture of left hip: s/p L cemented bipolar hip arthroplasty 09/29 Subjective seen on rounds early this am; denies pain including in hip; no sob; voiding well; good appetite w/o n/v Review of Systems Review of Systems: All systems reviewed & are unremarkable except as noted in HPI & below Physical Exam Constitutional: well developed, well nourished, cooperative and comfortable; no acute distress (on RA =sitting up in chair) Eyes: EOM intact bilaterally ENMT: Ears: + hearing impairment; no external ear abnormality Nose: no external nose abnormality Mouth: + dry oral mucous membranes (very dry; mouth breather) Neck: no nuchal rigidity Respiratory: normal respiratory effort Auscultation: lungs clear to auscultation bilaterally and + diminished lung sounds Cardiovascular: Rate/Rhythm: + irregularly irregular Heart Sounds: + murmur Vessels: + JVD Extremities: + edema (trace - 1+ dependent edema) Gastrointestinal (Abdomen): Inspection/Auscultation: normal bowel sounds Percussion/Palpation: abdomen soft; abdomen nontender Musculoskeletal: Extremities: strength 5/5 throughout Skin: no rashes, warm and dry + ecchymosis and + pallor Psychiatric: Orientation: oriented to person and oriented to place Affect: euthymic affect Insight: + limited insight Judgement: + limited judgement Results & Data Vital Signs (Past 12 Hours) Vital Signs Temp Pulse Resp BP Pulse Ox 10/11/19 15:37 36.8 C 83 18 112/58 L 96 10/11/19 11:50 36.6 C 90 19 114/57 L 98 10/11/19 07:35 37.1 C 79 18 99/63 L 93 Laboratory Results 10/11/19 04:16 10/11/19 04:16 (1) Fluid overload Hypervolemia type: other Qualified Code(s): E87.79 - Other fluid overload (2) Closed fracture of left hip Encounter type: initial encounter Qualified Code(s): S72.002A - Fracture of unspecified part of neck of left femur, initial encounter for closed fracture
[2019-10-11] MEDS ORDERED: EPOETIN ALFA 40,000 UNITS/ML VIAL SQ ONE (17:00)
--- NOTE | 2019-10-11 17:45 | Progress Note ---
DATE: 10/11/2019 SUBJECTIVE: An 79-year-old gentleman now about 12 days out from a left cemented bipolar hip arthroplasty for fracture. He continues to make improvements. He denies any significant hip pain. No chest pain or shortness of breath. He has been walking and getting around reasonably well with assistance. OBJECTIVE: VITAL SIGNS: Temperature 36.8. Vital signs stable. GENERAL: Pleasant elderly male. He is sitting up in his bedside chair eating his dinner. Looks comfortable. EXTREMITIES: Examination of the left leg reveals the leg lengths to be equal. Dressing is in place. I do not detect any significant drainage. Thigh is soft and supple. He can dorsiflex and plantarflex his foot appropriately. LABORATORY DATA: Hemoglobin 7.7. Hematocrit 23.7. Electrolytes are stable. His creatinine continues to improve with a creatinine of 4.32 today. ASSESSMENT: An 79-year-old gentleman with multiple medical comorbidities, now 12 days out from a cemented bipolar hip arthroplasty for fracture. He seems to be clinically and medically getting better daily. Certainly got multiple comorbidities and certainly continues to be high risk. PLAN: 1. He can continue routine wound care to the left hip. He can fully weightbear as tolerated. Sutures need to come out somewhere between 2 and 3 weeks, probably closer to 3 weeks considering his nutritional parameters 2. DVT prophylaxis as per the medicine service for his multiple medical issues. He should have SCDs in the hospital and TEDS on the outside for 6 weeks. I need to see him back somewhere between 2 and 3 weeks post surgery. Any orthopedic questions can be directed to me at [phone].
[2019-10-11] MEDS: WARFARIN SOD 5 MG TAB PO SCH (17:59)
[2019-10-11] MEDS: ACETAMINOPHEN 500 MG TAB PO SCH ×2 (18:01→22:05)
[2019-10-11] MEDS ORDERED: Heparin IV Standard *NO* Bolus IV SCH (20:30)
[2019-10-11] MEDS: SENNA 8.6 MG TAB PO SCH (20:42)
[2019-10-11] MEDS: HEPARIN SODIUM/DEXTROSE 25,000 UNITS/500 ML BAG IV SCH (21:14)
[2019-10-11] MEDS ORDERED: Heparin IV Low Dose *NO* Bolus IV ONE (21:15)
[2019-10-12 03:18] LABS: Mean Corpuscular Hemoglobin 28.8 pg (25-34); Mean Corpuscular Volume 89.9 fL (80-100); Platelet Count 176 K/uL (130-400); RDW Coefficient of Variation 16.7 % (11.5-14.5); RDW Standard Deviation 54.4 fL (36.4-46.3); Red Blood Count 2.78 M/uL (4.7-6.1); White Blood Count 9.94 K/uL (4.8-10.8)
[2019-10-12 03:40] LABS: BUN Creatinine Ratio 18.8 (10-20); Calcium 8.7 mg/dl (8.5-10.1); Creatinine Clr Calc Pharmacy 16.2 ml/min; Est GFR (African American) 16.5; Est GFR (Non-African American) 14.3; Potassium 3.6 mmol/L (3.5-5.1)
[2019-10-12 03:50] LABS: INR 1.4 (0.9-1.1); Partial Thromboplastin Ratio 2.3
[2019-10-12 03:52] LABS: Partial Thromboplastin Time 61.4 Seconds (21.0-31.0)
[2019-10-12] MEDS: ACETAMINOPHEN 500 MG TAB PO SCH ×3 (05:16→21:08)
--- NOTE | 2019-10-12 08:30 | Progress Note ---
DATE: 10/12/2019 SUBJECTIVE: An 79-year-old gentleman now 13 days out from a cemented bipolar hip arthroplasty for a left hip fracture. He continues to make gradual improvements. He was transferred out of the PCU to the orthopedic floor. No new complaints this morning. OBJECTIVE: VITAL SIGNS: Temperature 36.7. Vital signs stable. GENERAL: Pleasant elderly male. He seems to be resting comfortably. EXTREMITIES: Examination of the left hip and leg reveals the dressing to be in place. There is still some serous drainage on his dressing. Leg lengths are equal. Hip is located. He is neurologically intact. LABORATORY DATA: Hemoglobin 8.0. Hematocrit 25.0. Electrolytes are stable. Creatinine continues to improve with 3.76 this morning. ASSESSMENT: An 79-year-old gentleman 13 days out from a left cemented bipolar hip arthroplasty for fracture. Orthopedically, he is stable. Medically, seems to be improving. Pain seems to be controlled. PLAN: 1. DVT prophylaxis including thigh-high TEDs, SCDs, and anticoagulation as per the medicine service. 2. PT/OT. He can fully weightbear as tolerated, left lower extremity. Should obey hip precautions. 3. Routine wound care. He should have daily dressing changes. 4. Disposition: He is orthopedically okay for discharge any time. I need to see him back in about a week. We are not going to remove the krystin until the drainage stops, so probably at least a week. Any orthopedic questions can be directed to me at [phone]. [facility]
[2019-10-12] MEDS: INSULIN ASPART 100 UNITS/ML 3 ML PEN SC SCH ×4 (08:39→21:14)
[2019-10-12] MEDS: FUROSEMIDE 40 MG in SYRINGE 0 ML IV SCH (08:40)
[2019-10-12] MEDS: ROSUVASTATIN CALCIUM 20 MG TAB PO SCH (08:40)
[2019-10-12] MEDS: METOPROLOL SUCC 50MG EXT REL TAB PO SCH ×2 (08:40→21:08)
[2019-10-12] MEDS: FERROUS GLUCONATE 324 MG TAB PO SCH (08:40)
[2019-10-12] MEDS: SERTRALINE HCL 50 MG TABLET PO SCH (08:40)
[2019-10-12] MEDS: POLYETHYLENE (MIRALAX) 17 GM PACK PO SCH (08:41)
[2019-10-12] MEDS: TESTOSTERONE TOP SCH (08:41)
[2019-10-12] MEDS: LANSOPRAZOLE 30 MG SOLTAB PO SCH ×2 (08:43→21:08)
--- NOTE | 2019-10-12 11:28 | Nephrology Progress Note ---
Date of Service October 12, 2019 Assessment & Plan (1) Acute worsening of stage 4 chronic kidney disease: advanced ckd 4 w/ chronic volume overload and very labile creatinine ranging as OP from upper 2's to mid 3's, most recently 3.8 on 09/25. creatinine jumped post op w/ obligate diuresis and peaked at 6.6 on ; dobutamine stopped on approx w/ continued improvement in creatinine thereafter. had oliguria earlier this admission but resolved. -strict I/O -cancelled TDC (second time [facility] admission) b/c he is improving so well -will change lasix to po -primary service repleted K again today > 2 doses only -daily bmp -cont FR 1.5L and cont <2 gm Na diet >torsemide on hold/d-c'd -consent for dialysis obtained from pt w/ daughter lorraine present and on chart; is not decision maker -remove browning (2) Fluid overload: somewhat improved fluid status no longer w/ oliguria > trial of lasix on dobutamine complete now on lasix alone ; UOP has increased and stayed brisk (3) Acute on chronic anemia: Hgb 6.9 on presentation w/ chronic gastritis w/ scant heme + emesis in ER INR 4.8>1.7; pt had actually been bridging w/ lovenox in prep for AVF surgery on 10/02 > per epic, last coumadin dose was to be 09/26, then start lovenox 09/29 >had pRBC 2 units day of OR; had another unit 09/30. GI considering EGD >> post transfusion 10/02, hgb 8 today -had epo 10/11 76328 units SQ x 1 (4) Closed fracture of left hip: s/p L cemented bipolar hip arthroplasty 09/29 Subjective up in chair this am eating breakfast; feeling well; no sob, browning out and voiding well; pain controlled Review of Systems Review of Systems: All systems reviewed & are unremarkable except as noted in HPI & below Physical Exam 2 Constitutional: well developed, well nourished, cooperative and comfortable; no acute distress (on RA =sitting up in chair) Eyes: EOM intact bilaterally ENMT: Ears: + hearing impairment; no external ear abnormality Nose: no external nose abnormality Mouth: + dry oral mucous membranes (mouth breather) Neck: no nuchal rigidity Respiratory: normal respiratory effort Auscultation: lungs clear to auscultation bilaterally and + diminished lung sounds Cardiovascular: Rate/Rhythm: + irregularly irregular Heart Sounds: + murmur Vessels: + JVD Extremities: + edema (trace dependent edema) Gastrointestinal (Abdomen): Inspection/Auscultation: normal bowel sounds Percussion/Palpation: abdomen soft; abdomen nontender Musculoskeletal: Extremities: strength 5/5 throughout Skin: no rashes, warm and dry + ecchymosis and + pallor Psychiatric: Orientation: oriented to person and oriented to place Affect: euthymic affect Insight: + limited insight Judgement: + limited judgement Results & Data Vital Signs (Past 12 Hours) Vital Signs Temp Pulse Resp BP Pulse Ox 10/12/19 07:35 36.6 C 66 18 123/69 95 10/11/19 23:30 36.7 C 69 18 99/45 L 94 Laboratory Results 10/12/19 03:08 10/12/19 03:08 (1) Closed fracture of left hip Encounter type: initial encounter Qualified Code(s): S72.002A - Fracture of unspecified part of neck of left femur, initial encounter for closed fracture (2) Fluid overload Hypervolemia type: other Qualified Code(s): E87.79 - Other fluid overload
--- NOTE | 2019-10-12 13:28 | Hospitalist Progress Note ---
Date of Service October 12, 2019 Assessment & Plan (1) Acute worsening of stage 4 chronic kidney disease: Likely 2/2 ATN -admission creatinine was 3.79 on 10/08/19 and creatinine continued to rise with creatinine peaking to 6.6 on 10/05/19. Required dobutamine at one point this hospitalization. Consideration for perm cath placement and initiation of dialysis twice during this hospitalization, however, continued monitoring reveals improvement and this was avoided. Continues on Lasix per Nephrology. (2) Chronic atrial fibrillation: Rate controlled with Toprol XL 100mg PO BID. Has a h/o stroke. Requires bridge with heparin in setting of renal disease. Goal INR 2-3. (3) Fall: s/p fall at home with subsequent L hip fracture (4) Closed fracture of left hip: s/p left hip hemiarthroplasty for displaced femoral neck fracture by Dr. Aditya Torres. He is approximately two weeks post-op and doing well from a pain and functional standpoint. Warren are to remain in place after noting some drainage recently. Follow-up in one week in the office for post-op check and staple removal. Remains on the heparin drip for DVT prophylaxis. PT/OT here and plans for dc to rehab facility. (5) Anemia: multifactorial 2/2 anemia of CKD, ACD, and acute blood loss anemia 2/2 gastritis. Has received 4 units of blood this admission. Episode of hematemesis upon admission. GI was consulted and felt this was consistent with chronic gastritis. Recent EGD performed in Jul 2019 revealed this. Pt has cirrhosis, however, no esophageal varices. A repeat EGD was not pursued this admission for risks associated with the repeat procedure in the setting of acute illness. He remains on PPI therapy and iron supplementation. H/H appears stable and no further episodes of hematemesis. Procrit given per Nephro. (6) Chronic gastritis: per EGD Jul 2019. Cont Lansoprozole. (7) Cirrhosis of liver: compensated, no known esophageal varices. Cont outpatient GI monitoring. (8) Chronic systolic heart failure: 2/[address]. Initially required dobutamine to augment left ventricular function and renal perfusion, but now is compensated. Torsemide held as patient is on Lasix IV BID. Cont medical management with Toprol XL, Crestor 20qAM. Not on ASA in setting of Plavix and warfarin. ACEI/ARB contraindicated with renal dysfunction. (9) CAD (coronary artery disease): chronic, stable. Cont medical management as above. (10) DMII (diabetes mellitus, type 2): Controlled, cont ISS with loose carb coverage (11) DVT prophylaxis: heparin drip/coumadin DNR/DNI Dispo-to rehab once INR therapeutic. Chelly Irving DO [facility] Hospitalist Subjective 79-year-old man reporting controlled pain in his hip. He has been ambulating with assistance. He is tolerating p.o. He is afebrile. He has no signs of bleeding overtly and continues on the heparin drip with bridge to Coumadin. He reports having a bowel movement this morning. Review of Systems 2 Review of Systems: All systems reviewed & are unremarkable except as noted in HPI & below Physical Exam Physical Exam: CONSTITUTIONAL: WNWD, vitals as above, generally well- appearing EYES: normal conjunctivae, no scleral icterus ENT: MMM RESPIRATORY: clear to auscultation bilaterally, no crackles, rales or wheezes, normal respiratory effort CARDIOVASCULAR: regular rate and rhythm, S1 and 2 heard without murmurs, gallops or rubs, no JVD, no peripheral edema GASTROINTESTINAL: normal bowel sounds, soft, nontender, nondistended MUSCULOSKELETAL: deconditioned, moving all extremities equally and with good effort against resistance, head is normocephalic and atraumatic SKIN: warm and dry, L lateral hip incision site with krystin in place. Covered with dressing that is c/d/i NEUROLOGIC: CN 2-12 grossly intact, no sensory deficit, normal cognition, no gross focal deficits. PSYCHIATRIC: alert cooperative and oriented to person, place and time. Results & Data Vital Signs (Past 12 Hours) Vital Signs Temp Pulse Resp BP Pulse Ox 10/12/19 07:35 36.6 C 66 18 123/69 95 Laboratory Results Short CBC 10/12/19 Range/Units 03:08 WBC 9.94 (4.8-10.8) K/uL Hgb 8.0 L (14.0-18.0) g/dL Hct 25.0 L (42-52) % Plt Count 176 (130-400) K/uL BMP 10/12/19 03:08 Sodium 136 Potassium 3.6 Chloride 104 Carbon Dioxide 26 BUN 71 H Creatinine 3.76 H D Glucose 101 H Calcium 8.7 Medications Administered Current Inpatient Medications Acetaminophen (Tylenol) 500 mg PO Q8 [facility] Stop: 11/10/19 16:29 Last Admin: 10/12/19 12:58 Dose: 500 mg Documented by: Bisacodyl (Dulcolax) 10 mg [place] DAILY PRN PRN Reason: Constipation Stop: 10/28/19 17:03 Clopidogrel Bisulfate (Plavix) 75 mg PO QAM [facility] Stop: 10/30/19 08:59 Last Admin: 10/03/19 10:58 Dose: Not Given Documented by: Dextrose (Dextrose 50%) 25 - 50 ml IV UD PRN; Protocol PRN Reason: Hypoglycemia Protocol Stop: 10/28/19 17:03 Last Admin: 10/01/19 03:09 Dose: 25 ml Documented by: Ferrous Gluconate (Ferrous Gluconate) 324 mg PO QAM [facility] Stop: 10/29/19 08:59 Last Admin: 10/12/19 08:40 Dose: 324 mg Documented by: Furosemide (Lasix) 80 mg PO BID17 [facility] Stop: 11/11/19 16:59 Glucagon (Glucagen) 1 mg SQ UD PRN; Protocol PRN Reason: Hypoglycemia Protocol Stop: 10/28/19 17:03 Glucose (Glucose 40%) 15 - 30 gm PO UD PRN; Protocol PRN Reason: Hypoglycemia Protocol Stop: 10/28/19 17:03 Glucose (Dex4 Glucose) 4 - 8 tabs PO UD PRN; Protocol PRN Reason: Hypoglycemia Protocol Stop: 10/28/19 17:03 Hydromorphone HCl (Dilaudid) 0.5 mg IV Q8H PRN PRN Reason: Severe Pain Stop: 10/18/19 08:16 Heparin Sodium/Dextrose (Heparin Sodium/Dextrose) 25,000 units in 500 mls @ 18 mls/hr IV .Q24H [facility]; Protocol Stop: 11/10/19 21:14 Last Titration: 10/12/19 06:59 Dose: 900 units/hr, 18 mls/hr Documented by: Insulin Aspart (Novolog Flexpen) 0 units SC ACHS [facility] Stop: 11/10/19 20:59 Last Admin: 10/12/19 13:14 Dose: Not Given Documented by: Lansoprazole (Prevacid) 30 mg PO BID [facility] Stop: 11/01/19 20:59 Last Admin: 10/12/19 08:43 Dose: 30 mg Documented by: Magnesium Hydroxide (Milk Of Magnesia) 30 ml PO Q6H PRN PRN Reason: Constipation Stop: 10/29/19 17:06 Metoprolol Succinate (Toprol Xl) 100 mg PO BID [facility] Stop: 10/28/19 20:59 Last Admin: 10/12/19 08:40 Dose: 100 mg Documented by: Miscellaneous (Carbohydrates For Hypoglycemia) 15 - 30 gm PO UD PRN PRN Reason: Hypoglycemia Protocol Stop: 10/28/19 17:03 Naloxone HCl (Narcan) 0.1 mg IV Q5M PRN PRN Reason: Oversedation/Resp Depression Stop: 10/29/19 17:06 Nitroglycerin (Nitrostat) 0.4 mg SL UD PRN PRN Reason: Chest Pain Stop: 10/29/19 17:06 Testosteroine Gel~ Non-Formulary Patient's Own Med 1 ea TOP DAILY [facility] Stop: 10/31/19 08:59 Last Admin: 10/12/19 08:41 Dose: Not Given Documented by: Ondansetron HCl (Zofran) 4 mg IV Q6H PRN PRN Reason: Nausea And Vomiting Stop: 10/29/19 17:06 Polyethylene Glycol (Miralax Powder Packet) 17 gm PO DAILY [facility] Stop: 11/02/19 08:59 Last Admin: 10/12/19 08:41 Dose: 17 gm Documented by: Rosuvastatin Calcium (Crestor) 20 mg PO QAM [facility] Stop: 10/29/19 08:59 Last Admin: 10/12/19 08:40 Dose: 20 mg Documented by: Sennosides (Senokot) 17.2 mg PO HS [facility] Stop: 10/29/19 20:59 Last Admin: 10/11/19 20:42 Dose: 17.2 mg Documented by: Sertraline HCl (Zoloft) 50 mg PO QAM [facility] Stop: 10/29/19 08:59 Last Admin: 10/12/19 08:40 Dose: 50 mg Documented by: Tamsulosin HCl (Flomax) 0.4 mg PO QAM PRN PRN Reason: unable to void Stop: 10/29/19 17:06 Last Admin: 09/30/19 08:52 Dose: 0.4 mg Documented by: Tramadol HCl (Ultram) 25 mg PO Q6H PRN PRN Reason: Mild Pain Stop: 10/28/19 17:03 Warfarin Sodium (Coumadin) 5 mg PO DAILY@1600 [facility] Stop: 11/10/19 15:59 Last Admin: 10/11/19 17:59 Dose: 5 mg Documented by: (1) DMII (diabetes mellitus, type 2) Diabetes mellitus complication status: without complication Diabetes mellitus press tender long goods insulin use: without press tender long goods use Qualified Code(s): E11.9 - Type 2 diabetes mellitus without complications (2) CAD (coronary artery disease) Associated angina: without angina Coronary Disease-Associated Artery/Lesion type: [place] artery [place] vs. transplanted heart: [place] heart Qualified Code(s): I25.10 - Atherosclerotic heart disease of [place] coronary artery without angina pectoris (3) Anemia Anemia type: unspecified type Qualified Code(s): D64.9 - Anemia, unspecified (4) Fall Encounter type: initial encounter Qualified Code(s): W19.XXXA - Unspecified fall, initial encounter (5) Closed fracture of left hip Encounter type: initial encounter Qualified Code(s): S72.002A - Fracture of unspecified part of neck of left femur, initial encounter for closed fracture
[2019-10-12] MEDS: FUROSEMIDE 80 MG TAB PO SCH (16:24)
[2019-10-12] MEDS: WARFARIN SOD 5 MG TAB PO SCH (16:24)
[2019-10-12] MEDS: SENNA 8.6 MG TAB PO SCH ×2 (21:08→21:10)
[2019-10-12] MEDS: HEPARIN SODIUM/DEXTROSE 25,000 UNITS/500 ML BAG IV SCH (21:15)
[2019-10-13] MEDS: ACETAMINOPHEN 500 MG TAB PO SCH ×3 (05:34→20:50)
[2019-10-13 06:04] LABS: Hematocrit (blood only) 24.4 % (42-52); Hemoglobin 7.6 g/dL (14.0-18.0); Mean Corpuscular Hemoglobin 27.9 pg (25-34); Mean Corpuscular Hgb Conc 31.1 g/dL (32-36); Mean Corpuscular Volume 89.7 fL (80-100); Mean Platelet Volume 9.3 fL (7.4-10.4); Platelet Count 223 K/uL (130-400); RDW Standard Deviation 55.1 fL (36.4-46.3); Red Blood Count 2.72 M/uL (4.7-6.1); White Blood Count 10.51 K/uL (4.8-10.8)
[2019-10-13 06:24] LABS: INR 1.5 (0.9-1.1); Partial Thromboplastin Ratio 2.5; Prothrombin Time 15.1 Seconds (9.0-12.0)
[2019-10-13 06:32] LABS: Partial Thromboplastin Time 66.5 Seconds (21.0-31.0)
[2019-10-13 06:33] LABS: BUN Creatinine Ratio 19.3 (10-20); Calcium 8.6 mg/dl (8.5-10.1); Creatinine Clr Calc Pharmacy 18.3 ml/min; Est GFR (African American) 19.2; Est GFR (Non-African American) 16.6; Magnesium 1.8 mg/dl (1.8-2.4); Phosphorus 4.3 mg/dl (2.5-4.9); Potassium 3.2 mmol/L (3.5-5.1)
--- NOTE | 2019-10-13 07:25 | Progress Note ---
DATE: 10/13/2019 SUBJECTIVE: An 79-year-old gentleman now 2 weeks out from a left cemented bipolar hip arthroplasty for fracture. He continues to gradually make improvements. Denies any significant hip pain today. OBJECTIVE: VITAL SIGNS: Temperature 36.7. Vital signs stable. GENERAL: Pleasant elderly male. He is sitting on bed, looks pretty comfortable. EXTREMITIES: Examination of the left hip and leg reveals the leg lengths to be equal. His incision is clean, dry and intact. I do not detect any significant drainage on his dressing this morning. His hip is located. He is neurologically intact. LABORATORY DATA: Hemoglobin 7.5. Hematocrit 24.5. Electrolytes are stable. Potassium a little bit low at 3.2 and creatinine continues to improve at 3.32. ASSESSMENT: An 79-year-old gentleman with multiple comorbidities 2 weeks out from a left cemented bipolar hip arthroplasty for fracture. Orthopedically, he is doing well. He is making some gradual improvements. His pain is controlled. Hip is located. PLAN: 1. DVT prophylaxis including thigh-high TEDs, SCDs, and anticoagulation as per the medicine service. 2. PT/OT. He can weightbear as tolerated in the left lower extremity. 3. Routine wound care. We are going to leave the stitches in for at least a week and then probably early next week. If he is still in the hospital, we will take his krystin out in the middle of next week. If he is discharged, he will have to come back to our clinic. 4. Medical management as per the medicine service. 5. Disposition: He is orthopedically okay for discharge any time medically stable. I need to see him back sometime next week. Any orthopedic questions can be directed to me at [phone].
[2019-10-13] MEDS: FERROUS GLUCONATE 324 MG TAB PO SCH (08:02)
[2019-10-13] MEDS: METOPROLOL SUCC 50MG EXT REL TAB PO SCH ×2 (08:02→20:45)
[2019-10-13] MEDS: LANSOPRAZOLE 30 MG SOLTAB PO SCH ×2 (08:02→20:43)
[2019-10-13] MEDS: SERTRALINE HCL 50 MG TABLET PO SCH (08:03)
[2019-10-13] MEDS: CLOPIDOGREL BISULFATE 75 MG TAB PO SCH (08:03)
[2019-10-13] MEDS: FUROSEMIDE 80 MG TAB PO SCH ×2 (08:03→16:25)
[2019-10-13] MEDS: ROSUVASTATIN CALCIUM 20 MG TAB PO SCH (08:04)
[2019-10-13] MEDS: POLYETHYLENE (MIRALAX) 17 GM PACK PO SCH (08:04)
[2019-10-13] MEDS: TESTOSTERONE TOP SCH (08:05)
--- NOTE | 2019-10-13 08:23 | Nephrology Progress Note ---
Date of Service October 13, 2019 Assessment & Plan (1) Acute worsening of stage 4 chronic kidney disease: advanced ckd 4 w/ chronic volume overload and very labile creatinine ranging as OP from upper 2's to mid 3's, most recently 3.8 on 09/25. creatinine jumped post op w/ obligate diuresis and peaked at 6.6 on ; dobutamine stopped on approx w/ continued improvement in creatinine thereafter. had oliguria earlier this admission but resolved. -strict I/O -cancelled TDC (second time [facility] admission) b/c he is improving so well -cont current po lasix dose now and at d/c -started standing K 40 MEq daily -d/c'd renal diet >> see if we can increase K w/ diet -daily bmp -cont FR 1.5L and cont <2 gm Na diet -consent for dialysis obtained from pt w/ daughter lorraine present and on chart; is not decision maker >> but pt not needing dialysis at this point -will follow peripherally at this point khadar in [place] ->>>for d/c >> weekly bmp, cbc; f/u in CKD clinic 2-4 wks w/ me or PA (2) Fluid overload: somewhat improved fluid status no longer w/ oliguria > trial of lasix on dobutamine complete now on lasix alone ; UOP has increased and stayed brisk (3) Acute on chronic anemia: Hgb 6.9 on presentation w/ chronic gastritis w/ scant heme + emesis in ER INR 4.8>1.7; pt had actually been bridging w/ lovenox in prep for AVF surgery on 10/02 > per [employer], last coumadin dose was to be 09/26, then start lovenox 09/29 >had pRBC 2 units day of OR; had another unit 09/30. GI considering EGD >> post transfusion 10/02, hgb high 7's today -had epo 10/11 [id number] units SQ x 1 (4) Closed fracture of left hip: s/p L cemented bipolar hip arthroplasty 09/29 Subjective seen on rounds this am 0800; frustrated he sat up in chair too long, painfully yesterday; eating well not sob; no edema ambulating w/ walker; wants to move on to rehab Review of Systems Review of Systems: All systems reviewed & are unremarkable except as noted in HPI & below Physical Exam Constitutional: well developed, well nourished, cooperative and comfortable; no acute distress (on RA =sitting up in chair) Eyes: EOM intact bilaterally ENMT: Ears: + hearing impairment; no external ear abnormality Nose: no external nose abnormality Mouth: + dry oral mucous membranes (mouth breather) Neck: no nuchal rigidity Respiratory: normal respiratory effort Auscultation: + diminished lung sounds and + crackles (L base) Cardiovascular: Rate/Rhythm: + irregularly irregular Heart Sounds: + murmur Vessels: + JVD Extremities: + edema (trace dependent edema) Gastrointestinal (Abdomen): Inspection/Auscultation: normal bowel sounds Percussion/Palpation: abdomen soft; abdomen nontender Musculoskeletal: Extremities: strength 5/5 throughout Skin: no rashes, warm and dry + ecchymosis and + pallor Neurologic: nmae, fluent speech, no tremor Psychiatric: Orientation: oriented to person and oriented to place Affect: euthymic affect Insight: + limited insight Judgement: + limited judgement Results & Data Vital Signs (Past 12 Hours) Vital Signs Temp Pulse Resp BP Pulse Ox 10/12/19 23:15 36.7 C 83 18 105/63 96 Laboratory Results 10/13/19 05:21 10/13/19 05:21 (1) Closed fracture of left hip Encounter type: initial encounter Qualified Code(s): S72.002A - Fracture of unspecified part of neck of left femur, initial encounter for closed fracture (2) Fluid overload Hypervolemia type: other Qualified Code(s): E87.79 - Other fluid overload
[2019-10-13] MEDS: INSULIN ASPART 100 UNITS/ML 3 ML PEN SC SCH ×4 (09:06→20:42)
[2019-10-13] MEDS: POTASSIUM CHLORIDE 20 MEQ TABCR PO SCH (09:10)
[2019-10-13 12:57] LABS: Partial Thromboplastin Ratio 2.1
[2019-10-13 13:03] LABS: Partial Thromboplastin Time 57.9 Seconds (21.0-31.0)
[2019-10-13] MEDS ORDERED: POTASSIUM CHLORIDE 20 MEQ TABCR PO SCH (14:00)
--- NOTE | 2019-10-13 15:53 | Hospitalist Progress Note ---
Date of Service October 13, 2019 Assessment & Plan (1) Acute worsening of stage 4 chronic kidney disease: Likely 2/2 ATN -admission creatinine was 3.79 on 10/08/19 and creatinine continued to rise with creatinine peaking to 6.6 on 10/05/19. Required dobutamine at one point this hospitalization. Consideration for perm cath placement and initiation of dialysis twice during this hospitalization, however, continued monitoring reveals improvement and this was avoided. Continues on Lasix p.o. per Nephrology and low-dose torsemide. Renal function continues to improve daily. (2) Chronic atrial fibrillation: Rate controlled with Toprol XL 100mg PO BID. Has a h/o stroke. Requires bridge with heparin in setting of renal disease. Goal INR 2-3. (3) Fall: s/p fall at home with subsequent L hip fracture (4) Closed fracture of left hip: s/p left hip hemiarthroplasty for displaced femoral neck fracture by Dr. Aditya Torres. He is approximately two weeks post-op and doing well from a pain and functional standpoint. Able to ambulate in the hallways with walker. Will discuss need for staple removal with Ortho team. (5) Anemia: Multifactorial 2/2 anemia of CKD, ACD, and acute blood loss anemia 2/2 gastritis. Has received 4 units of blood this admission. Episode of hematemesis upon admission. GI was consulted and felt this was consistent with chronic gastritis. Recent EGD performed in Jul 2019 revealed this. Pt has cirrhosis, however, no esophageal varices. A repeat EGD was not pursued this admission for risks associated with the repeat procedure in the setting of acute illness. He remains on PPI therapy and iron supplementation. H/H appears stable and no further episodes of hematemesis. Procrit given per Nephro. (6) Chronic gastritis: per EGD Jul 2019. Cont Lansoprozole. (7) Cirrhosis of liver: compensated, no known esophageal varices. Cont outpatient GI monitoring. (8) Chronic systolic heart failure: 2/[address]. Initially required dobutamine to augment left ventricular function and renal perfusion, but now is compensated. Continue Lasix 80 mg p.o. twice daily. Cont medical management with Toprol XL, Crestor 20qAM. Not on ASA in setting of Plavix and warfarin. ACEI/ARB contraindicated with renal dysfunction. (9) CAD (coronary artery disease): chronic, stable. Cont medical management as above. (10) DMII (diabetes mellitus, type 2): Controlled, cont ISS with loose carb coverage (11) DVT prophylaxis: heparin drip/coumadin DNR/DNI Dispo-to rehab once INR therapeutic. Chelly Irving DO [facility] Hospitalist Subjective Feeling well, no issues, tolerating p.o. Mentating baseline. Ambulating in the hallways. Eager to be discharged. We discussed the importance of bridging therapy and are trending INR. Continue heparin drip and Coumadin. Updated family by phone. Review of Systems Review of Systems: All systems reviewed & are unremarkable except as noted in HPI & below Physical Exam Physical Exam: CONSTITUTIONAL: WNWD, vitals as above, generally well- appearing EYES: normal conjunctivae, no scleral icterus ENT: MMM RESPIRATORY: clear to auscultation bilaterally, no crackles, rales or wheezes, normal respiratory effort CARDIOVASCULAR: regular rate and rhythm, S1 and 2 heard without murmurs, gallops or rubs, no JVD, no peripheral edema GASTROINTESTINAL: normal bowel sounds, soft, nontender, nondistended MUSCULOSKELETAL: deconditioned, moving all extremities equally and with good effort against resistance, head is normocephalic and atraumatic SKIN: warm and dry, L lateral hip incision site with krystin in place. Covered with dressing that is c/d/i NEUROLOGIC: CN 2-12 grossly intact, no sensory deficit, normal cognition, no gross focal deficits. PSYCHIATRIC: alert cooperative and oriented to person, place and time. Results & Data Vital Signs (Past 12 Hours) Vital Signs Temp Pulse Resp BP Pulse Ox 10/13/19 15:12 36.8 C 80 17 121/69 96 10/13/19 08:04 36.8 C 74 16 103/57 L 93 Laboratory Results Short CBC 10/13/19 Range/Units 05:21 WBC 10.51 (4.8-10.8) K/uL Hgb 7.6 L (14.0-18.0) g/dL Hct 24.4 L (42-52) % Plt Count 223 (130-400) K/uL BMP 10/13/19 05:21 Sodium 135 L Potassium 3.2 L Chloride 102 Carbon Dioxide 26 BUN 64 H Creatinine 3.32 H D Glucose 136 H Calcium 8.6 Medications Administered Current Inpatient Medications Acetaminophen (Tylenol) 500 mg PO Q8 [facility] Stop: 11/10/19 16:29 Last Admin: 10/13/19 13:21 Dose: 500 mg Documented by: Bisacodyl (Dulcolax) 10 mg [place] DAILY PRN PRN Reason: Constipation Stop: 10/28/19 17:03 Clopidogrel Bisulfate (Plavix) 75 mg PO QAM [facility] Stop: 10/30/19 08:59 Last Admin: 10/13/19 08:03 Dose: 75 mg Documented by: Dextrose (Dextrose 50%) 25 - 50 ml IV UD PRN; Protocol PRN Reason: Hypoglycemia Protocol Stop: 10/28/19 17:03 Last Admin: 10/01/19 03:09 Dose: 25 ml Documented by: Ferrous Gluconate (Ferrous Gluconate) 324 mg PO QAM [facility] Stop: 10/29/19 08:59 Last Admin: 10/13/19 08:02 Dose: 324 mg Documented by: Furosemide (Lasix) 80 mg PO BID17 [facility] Stop: 11/11/19 16:59 Last Admin: 10/13/19 08:03 Dose: 80 mg Documented by: Glucagon (Glucagen) 1 mg SQ UD PRN; Protocol PRN Reason: Hypoglycemia Protocol Stop: 10/28/19 17:03 Glucose (Glucose 40%) 15 - 30 gm PO UD PRN; Protocol PRN Reason: Hypoglycemia Protocol Stop: 10/28/19 17:03 Glucose (Dex4 Glucose) 4 - 8 tabs PO UD PRN; Protocol PRN Reason: Hypoglycemia Protocol Stop: 10/28/19 17:03 Hydromorphone HCl (Dilaudid) 0.5 mg IV Q8H PRN PRN Reason: Severe Pain Stop: 10/18/19 08:16 Heparin Sodium/Dextrose (Heparin Sodium/Dextrose) 25,000 units in 500 mls @ 16 mls/hr IV .Q24H [facility]; Protocol Stop: 11/10/19 21:14 Last Titration: 10/13/19 15:03 Dose: 800 units/hr, 16 mls/hr Documented by: Insulin Aspart (Novolog Flexpen) 0 units SC ACHS [facility] Stop: 11/10/19 20:59 Last Admin: 10/13/19 13:19 Dose: 2 units Documented by: Lansoprazole (Prevacid) 30 mg PO BID [facility] Stop: 11/01/19 20:59 Last Admin: 10/13/19 08:02 Dose: 30 mg Documented by: Magnesium Hydroxide (Milk Of Magnesia) 30 ml PO Q6H PRN PRN Reason: Constipation Stop: 10/29/19 17:06 Metoprolol Succinate (Toprol Xl) 100 mg PO BID [facility] Stop: 10/28/19 20:59 Last Admin: 10/13/19 08:02 Dose: 100 mg Documented by: Miscellaneous (Carbohydrates For Hypoglycemia) 15 - 30 gm PO UD PRN PRN Reason: Hypoglycemia Protocol Stop: 10/28/19 17:03 Naloxone HCl (Narcan) 0.1 mg IV Q5M PRN PRN Reason: Oversedation/Resp Depression Stop: 10/29/19 17:06 Nitroglycerin (Nitrostat) 0.4 mg SL UD PRN PRN Reason: Chest Pain Stop: 10/29/19 17:06 Testosteroine Gel~ Non-Formulary Patient's Own Med 1 ea TOP DAILY [facility] Stop: 10/31/19 08:59 Last Admin: 10/13/19 08:05 Dose: 1 btl Documented by: Ondansetron HCl (Zofran) 4 mg IV Q6H PRN PRN Reason: Nausea And Vomiting Stop: 10/29/19 17:06 Polyethylene Glycol (Miralax Powder Packet) 17 gm PO DAILY [facility] Stop: 11/02/19 08:59 Last Admin: 10/13/19 08:04 Dose: 17 gm Documented by: Potassium Chloride (Klor-Con M20) 40 meq PO QAM [facility] Stop: 11/12/19 08:59 Last Admin: 10/13/19 09:10 Dose: 40 meq Documented by: Rosuvastatin Calcium (Crestor) 20 mg PO QAM [facility] Stop: 10/29/19 08:59 Last Admin: 10/13/19 08:04 Dose: 20 mg Documented by: Sennosides (Senokot) 17.2 mg PO HS [facility] Stop: 10/29/19 20:59 Last Admin: 10/12/19 21:10 Dose: Not Given Documented by: Sertraline HCl (Zoloft) 50 mg PO QAM [facility] Stop: 10/29/19 08:59 Last Admin: 10/13/19 08:03 Dose: 50 mg Documented by: Tamsulosin HCl (Flomax) 0.4 mg PO QAM PRN PRN Reason: unable to void Stop: 10/29/19 17:06 Last Admin: 09/30/19 08:52 Dose: 0.4 mg Documented by: Tramadol HCl (Ultram) 25 mg PO Q6H PRN PRN Reason: Mild Pain Stop: 10/28/19 17:03 Warfarin Sodium (Coumadin) 5 mg PO DAILY@1600 [facility] Stop: 11/10/19 15:59 Last Admin: 10/12/19 16:24 Dose: 5 mg Documented by: (1) DMII (diabetes mellitus, type 2) Diabetes mellitus complication status: without complication 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 transplanted heart: [place] heart Qualified Code(s): I25.10 - Atherosclerotic heart disease of [place] coronary artery without angina pectoris (3) Anemia Anemia type: unspecified type Qualified Code(s): D64.9 - Anemia, unspecified (4) Fall Encounter type: initial encounter Qualified Code(s): W19.XXXA - Unspecified fall, initial encounter (5) Closed fracture of left hip Encounter type: initial encounter Qualified Code(s): S72.002A - Fracture of unspecified part of neck of left femur, initial encounter for closed fracture
[2019-10-13] MEDS: WARFARIN SOD 5 MG TAB PO SCH (16:25)
[2019-10-13] MEDS: SENNA 8.6 MG TAB PO SCH (20:43)
[2019-10-14] MEDS: HEPARIN SODIUM/DEXTROSE 25,000 UNITS/500 ML BAG IV SCH ×2 (02:13→21:26)
[2019-10-14] MEDS: ACETAMINOPHEN 500 MG TAB PO SCH ×3 (05:55→21:10)
[2019-10-14 06:23] LABS: INR 1.9 (0.9-1.1); Partial Thromboplastin Ratio 2.5
[2019-10-14 06:47] LABS: Partial Thromboplastin Time 66.9 Seconds (21.0-31.0)
--- NOTE | 2019-10-14 08:19 | Progress Note ---
DATE: 10/14/2019 SUBJECTIVE: An 79-year-old gentleman now 15 days out from left cemented bipolar hip arthroplasty for fracture. Hips are doing well. Denies any significant pain. He says he has been getting around pretty well. OBJECTIVE: VITAL SIGNS: Temperature 36.7. Vital signs stable. GENERAL: Pleasant elderly male. He is lying in bed, looks pretty comfortable. He is awake, alert and oriented. EXTREMITIES: Examination of the left hip reveals this incision to be clean, dry and intact. No significant drainage this morning. Thigh is soft and supple. Hip is located. He is neurologically intact. LABORATORY DATA: No new labs this morning. ASSESSMENT: An 79-year-old gentleman with multiple medical comorbidities, now a little over 2 weeks out from left cemented bipolar hip arthroplasty for fracture. He is doing well. Clinically, he seems to be improving daily. His pain is controlled. Hip is located. He is neurologically intact. PLAN: 1. DVT prophylaxis including thigh-high TEDs, SCDs, and back on his Coumadin. 2. PT/OT. He can fully weightbear as tolerated. Should obey hip precautions. 3. Wound care. We are going to leave the krystin in till the middle of next week and they were all moving in. If he is here in the hospital, will remove them probably on Wednesday. If he is discharged, he will have to come back to clinic. 4. Disposition: He is orthopedically okay for discharge any time medically stable. Any orthopedic questions can be directed at [phone].
[2019-10-14] MEDS: POLYETHYLENE (MIRALAX) 17 GM PACK PO SCH (08:44)
[2019-10-14] MEDS: FERROUS GLUCONATE 324 MG TAB PO SCH (08:46)
[2019-10-14] MEDS: ROSUVASTATIN CALCIUM 20 MG TAB PO SCH (08:46)
[2019-10-14] MEDS: METOPROLOL SUCC 50MG EXT REL TAB PO SCH ×2 (08:46→20:22)
[2019-10-14] MEDS: SERTRALINE HCL 50 MG TABLET PO SCH (08:46)
[2019-10-14] MEDS: LANSOPRAZOLE 30 MG SOLTAB PO SCH ×2 (08:46→20:23)
[2019-10-14] MEDS: POTASSIUM CHLORIDE 20 MEQ TABCR PO SCH (08:46)
[2019-10-14] MEDS: FUROSEMIDE 80 MG TAB PO SCH ×2 (08:46→16:23)
[2019-10-14] MEDS: CLOPIDOGREL BISULFATE 75 MG TAB PO SCH (08:47)
[2019-10-14] MEDS: INSULIN ASPART 100 UNITS/ML 3 ML PEN SC SCH ×4 (08:54→20:51)
[2019-10-14] MEDS: TESTOSTERONE TOP SCH (09:17)
[2019-10-14 13:37] LABS: Partial Thromboplastin Ratio 1.9
[2019-10-14 13:46] LABS: Partial Thromboplastin Time 52.7 Seconds (21.0-31.0)
[2019-10-14] MEDS: WARFARIN SOD 5 MG TAB PO SCH (16:23)
--- NOTE | 2019-10-14 18:28 | Hospitalist Progress Note ---
Date of Service October 14, 2019 Assessment & Plan (1) Acute worsening of stage 4 chronic kidney disease: Likely 2/2 ATN -admission creatinine was 3.79 on 10/08/19 and creatinine continued to rise with creatinine peaking to 6.6 on 10/05/19. Required dobutamine at one point this hospitalization. Consideration for perm cath placement and initiation of dialysis twice during this hospitalization, however, continued monitoring reveals improvement and this was avoided. Continues on Lasix p.o. per Nephrology and low-dose torsemide. Renal function continues to improve daily. (2) Chronic atrial fibrillation: Rate controlled with Toprol XL 100mg PO BID. Has a h/o stroke. Requires bridge with heparin in setting of renal disease. Goal INR 2-3. Currently 1.9. Cont heparin/warfarin combination and trend INR daily. (3) Fall: s/p fall at home with subsequent L hip fracture (4) Closed fracture of left hip: s/p left hip hemiarthroplasty for displaced femoral neck fracture by Dr. Aditya Torres. He is approximately two weeks post-op and doing well from a pain and functional standpoint. Able to ambulate in the hallways with walker. One week follow-up with Ortho recommended as outpatient with staple removal at that time. Cont daily wound care. (5) Anemia: Multifactorial 2/2 anemia of CKD, ACD, and acute blood loss anemia 2/2 gastritis. Has received 4 units of blood this admission. Episode of hematemesis upon admission. GI was consulted and felt this was consistent with chronic gastritis. Recent EGD performed in Jul 2019 revealed this. Pt has cirrhosis, however, no esophageal varices. A repeat EGD was not pursued this admission for risks associated with the repeat procedure in the setting of acute illness. He remains on PPI therapy and iron supplementation. H/H appears stable and no further episodes of hematemesis. Procrit given per Nephro. (6) Chronic gastritis: per EGD Jul 2019. Cont Lansoprozole. (7) Cirrhosis of liver: compensated, no known esophageal varices. Cont outpatient GI monitoring. (8) Chronic systolic heart failure: 2/[address]. Initially required dobutamine to augment left ventricular function and renal perfusion, but now is compensated. Continue Lasix 80 mg p.o. twice daily. Cont medical management with Toprol XL, Crestor 20qAM. Not on ASA in setting of Plavix and warfarin. ACEI/ARB contraindicated with renal dysfunction. (9) CAD (coronary artery disease): chronic, stable. Cont medical management as above. (10) DMII (diabetes mellitus, type 2): Controlled, cont ISS with loose carb coverage (11) DVT prophylaxis: heparin drip/coumadin DNR/DNI Dispo-to rehab once INR therapeutic. Chelly Irving DO [facility] Hospitalist Subjective Doing well from a pain standpoint postoperatively. He is ambulating with his walker. Somewhat depressed from prolonged hospitalization and having to wait until Wednesday for disposition to rehab. Otherwise denies any complaints. Review of Systems Review of Systems: All systems reviewed & are unremarkable except as noted in HPI & below Physical Exam Physical Exam: CONSTITUTIONAL: WNWD, vitals as above, generally well- appearing EYES: normal conjunctivae, no scleral icterus ENT: MMM RESPIRATORY: clear to auscultation bilaterally, no crackles, rales or wheezes, normal respiratory effort CARDIOVASCULAR: regular rate and rhythm, S1 and 2 heard without murmurs, gallops or rubs, no JVD, no peripheral edema GASTROINTESTINAL: normal bowel sounds, soft, nontender, nondistended MUSCULOSKELETAL: deconditioned, moving all extremities equally and with good effort against resistance, head is normocephalic and atraumatic SKIN: warm and dry, L lateral hip incision site with krystin in place. No surrounding erythema. Covered with dressing that is c/d/i NEUROLOGIC: CN 2-12 grossly intact, no sensory deficit, normal cognition, no gross focal deficits. PSYCHIATRIC: alert cooperative and oriented to person, place and time. Results & Data Vital Signs (Past 12 Hours) Vital Signs Temp Pulse Resp BP Pulse Ox 10/14/19 16:22 36.7 C 73 18 113/62 100 10/14/19 07:35 36.7 C 79 16 122/66 94 Medications Administered Current Inpatient Medications Acetaminophen (Tylenol) 500 mg PO Q8 [facility] Stop: 11/10/19 16:29 Last Admin: 10/14/19 13:59 Dose: 500 mg Documented by: Bisacodyl (Dulcolax) 10 mg [place] DAILY PRN PRN Reason: Constipation Stop: 10/28/19 17:03 Clopidogrel Bisulfate (Plavix) 75 mg PO QAM [facility] Stop: 10/30/19 08:59 Last Admin: 10/14/19 08:47 Dose: 75 mg Documented by: Dextrose (Dextrose 50%) 25 - 50 ml IV UD PRN; Protocol PRN Reason: Hypoglycemia Protocol Stop: 10/28/19 17:03 Last Admin: 10/01/19 03:09 Dose: 25 ml Documented by: Ferrous Gluconate (Ferrous Gluconate) 324 mg PO QAM [facility] Stop: 10/29/19 08:59 Last Admin: 10/14/19 08:46 Dose: 324 mg Documented by: Furosemide (Lasix) 80 mg PO BID17 [facility] Stop: 11/11/19 16:59 Last Admin: 10/14/19 16:23 Dose: 80 mg Documented by: Glucagon (Glucagen) 1 mg SQ UD PRN; Protocol PRN Reason: Hypoglycemia Protocol Stop: 10/28/19 17:03 Glucose (Glucose 40%) 15 - 30 gm PO UD PRN; Protocol PRN Reason: Hypoglycemia Protocol Stop: 10/28/19 17:03 Glucose (Dex4 Glucose) 4 - 8 tabs PO UD PRN; Protocol PRN Reason: Hypoglycemia Protocol Stop: 10/28/19 17:03 Hydromorphone HCl (Dilaudid) 0.5 mg IV Q8H PRN PRN Reason: Severe Pain Stop: 10/18/19 08:16 Heparin Sodium/Dextrose (Heparin Sodium/Dextrose) 25,000 units in 500 mls @ 14 mls/hr IV .Q24H [facility]; Protocol Stop: 11/10/19 21:14 Last Titration: 10/14/19 14:58 Dose: 700 units/hr, 14 mls/hr Documented by: Insulin Aspart (Novolog Flexpen) 0 units SC ACHS [facility] Stop: 11/10/19 20:59 Last Admin: 10/14/19 18:09 Dose: 1 units Documented by: Lansoprazole (Prevacid) 30 mg PO BID [facility] Stop: 11/01/19 20:59 Last Admin: 10/14/19 08:46 Dose: 30 mg Documented by: Magnesium Hydroxide (Milk Of Magnesia) 30 ml PO Q6H PRN PRN Reason: Constipation Stop: 10/29/19 17:06 Metoprolol Succinate (Toprol Xl) 100 mg PO BID [facility] Stop: 10/28/19 20:59 Last Admin: 10/14/19 08:46 Dose: 100 mg Documented by: Miscellaneous (Carbohydrates For Hypoglycemia) 15 - 30 gm PO UD PRN PRN Reason: Hypoglycemia Protocol Stop: 10/28/19 17:03 Naloxone HCl (Narcan) 0.1 mg IV Q5M PRN PRN Reason: Oversedation/Resp Depression Stop: 10/29/19 17:06 Nitroglycerin (Nitrostat) 0.4 mg SL UD PRN PRN Reason: Chest Pain Stop: 10/29/19 17:06 Testosteroine Gel~ Non-Formulary Patient's Own Med 1 ea TOP DAILY [facility] Stop: 10/31/19 08:59 Last Admin: 10/14/19 09:17 Dose: 1 btl Documented by: Ondansetron HCl (Zofran) 4 mg IV Q6H PRN PRN Reason: Nausea And Vomiting Stop: 10/29/19 17:06 Polyethylene Glycol (Miralax Powder Packet) 17 gm PO DAILY [facility] Stop: 11/02/19 08:59 Last Admin: 10/14/19 08:44 Dose: Not Given Documented by: Potassium Chloride (Klor-Con M20) 40 meq PO QAM [facility] Stop: 11/12/19 08:59 Last Admin: 10/14/19 08:46 Dose: 40 meq Documented by: Rosuvastatin Calcium (Crestor) 20 mg PO QAM [facility] Stop: 10/29/19 08:59 Last Admin: 10/14/19 08:46 Dose: 20 mg Documented by: Sennosides (Senokot) 17.2 mg PO HS [facility] Stop: 10/29/19 20:59 Last Admin: 10/13/19 20:43 Dose: Not Given Documented by: Sertraline HCl (Zoloft) 50 mg PO QAM [facility] Stop: 10/29/19 08:59 Last Admin: 10/14/19 08:46 Dose: 50 mg Documented by: Tamsulosin HCl (Flomax) 0.4 mg PO QAM PRN PRN Reason: unable to void Stop: 10/29/19 17:06 Last Admin: 09/30/19 08:52 Dose: 0.4 mg Documented by: Tramadol HCl (Ultram) 25 mg PO Q6H PRN PRN Reason: Mild Pain Stop: 10/28/19 17:03 Warfarin Sodium (Coumadin) 5 mg PO DAILY@1600 [facility] Stop: 11/10/19 15:59 Last Admin: 10/14/19 16:23 Dose: 5 mg Documented by: (1) DMII (diabetes mellitus, type 2) Diabetes mellitus complication status: without complication 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 transplanted heart: [place] heart Qualified Co de(s): I25.10 - Atherosclerotic heart disease of [place] coronary artery without angina pectoris (3) Anemia Anemia type: unspecified type Qualified Code(s): D64.9 - Anemia, unspecified (4) Fall Encounter type: initial encounter Qualified Code(s): W19.XXXA - Unspecified fall, initial encounter (5) Closed fracture of left hip Encounter type: initial encounter Qualified Code(s): S72.002A - Fracture of unspecified part of neck of left femur, initial encounter for closed fracture
[2019-10-14] MEDS: SENNA 8.6 MG TAB PO SCH (20:35)
[2019-10-15 05:45] LABS: Hematocrit (blood only) 25.8 % (42-52); Hemoglobin 8.2 g/dL (14.0-18.0); Mean Corpuscular Hemoglobin 29.1 pg (25-34); Mean Corpuscular Hgb Conc 31.8 g/dL (32-36); Mean Corpuscular Volume 91.5 fL (80-100); Mean Platelet Volume 9.3 fL (7.4-10.4); Platelet Count 250 K/uL (130-400); RDW Coefficient of Variation 17.4 % (11.5-14.5); RDW Standard Deviation 57.2 fL (36.4-46.3); Red Blood Count 2.82 M/uL (4.7-6.1); White Blood Count 9.24 K/uL (4.8-10.8)
[2019-10-15 06:16] LABS: BUN Creatinine Ratio 20.6 (10-20); Creatinine Clr Calc Pharmacy 24.3 ml/min; Est GFR (African American) 27.1; Est GFR (Non-African American) 23.4; Potassium 3.5 mmol/L (3.5-5.1)
[2019-10-15] MEDS: ACETAMINOPHEN 500 MG TAB PO SCH ×3 (06:25→21:48)
[2019-10-15 06:27] LABS: INR 2.3 (0.9-1.1); Partial Thromboplastin Ratio 2.5; Prothrombin Time 22.3 Seconds (9.0-12.0)
[2019-10-15 06:38] LABS: Partial Thromboplastin Time 64.3 Seconds (21.0-31.0)
--- NOTE | 2019-10-15 08:17 | Progress Note ---
DATE: 10/15/2019 SUBJECTIVE: An 79-year-old gentleman now 14 days out from a left cemented bipolar hip arthroplasty for fracture. He is doing okay. Denies any significant hip pain. A little stiffness when he first gets up. No other new complaints. OBJECTIVE: VITAL SIGNS: Temperature 36.9. Vital signs stable. GENERAL: Shows a pleasant elderly male. He is lying in bed, looks comfortable. EXTREMITIES: Examination of left hip reveals leg lengths to be equal. His incisions are clean, dry and intact. No drainage. He is neurologically intact. LABORATORY DATA: Hemoglobin 8.2. Hematocrit 25.8. Electrolytes, creatinine improved at 2.50. ASSESSMENT: An 79-year-old gentleman now a little over 2 weeks out from a left cemented bipolar hip arthroplasty for fracture, making gradual improvements. His blood pressure has been stable. Hemoglobin is stable. Creatinine is improving. His hip incisions are healing nicely. PLAN: 1. DVT prophylaxis including thigh-high TEDs, SCDs, and anticoagulation as per the medicine service. 2. PT/OT. He can weightbear as tolerated. 3. Wound care daily. We will remove the krystin early next week. 4. Disposition: He is orthopedically okay for discharge any time medically stable. KRANTHI
[2019-10-15] MEDS: INSULIN ASPART 100 UNITS/ML 3 ML PEN SC SCH ×4 (09:52→21:26)
[2019-10-15] MEDS: POLYETHYLENE (MIRALAX) 17 GM PACK PO SCH (09:53)
[2019-10-15] MEDS: POTASSIUM CHLORIDE 20 MEQ TABCR PO SCH (09:54)
[2019-10-15] MEDS: ROSUVASTATIN CALCIUM 20 MG TAB PO SCH (09:54)
[2019-10-15] MEDS: METOPROLOL SUCC 50MG EXT REL TAB PO SCH ×2 (09:54→20:45)
[2019-10-15] MEDS: FUROSEMIDE 80 MG TAB PO SCH ×2 (09:55→16:10)
[2019-10-15] MEDS: SERTRALINE HCL 50 MG TABLET PO SCH (09:55)
[2019-10-15] MEDS: CLOPIDOGREL BISULFATE 75 MG TAB PO SCH (09:55)
[2019-10-15] MEDS: FERROUS GLUCONATE 324 MG TAB PO SCH (09:56)
[2019-10-15] MEDS: LANSOPRAZOLE 30 MG SOLTAB PO SCH ×2 (09:56→20:45)
[2019-10-15] MEDS: TESTOSTERONE TOP SCH (10:04)
--- NOTE | 2019-10-15 15:17 | Hospitalist Progress Note ---
Date of Service October 15, 2019 Assessment & Plan (1) Acute worsening of stage 4 chronic kidney disease: Likely 2/2 ATN -admission creatinine was 3.79 on 10/08/19 and creatinine continued to rise with creatinine peaking to 6.6 on 10/05/19. Required dobutamine at one point this hospitalization. Consideration for perm cath placement and initiation of dialysis twice during this hospitalization, however, continued monitoring reveals improvement and this was avoided. Continues on Lasix p.o. per Nephrology and low-dose torsemide. Renal function continues to improve daily. Creatinine 2.5 this morning with GFR 24. (2) Chronic atrial fibrillation: Rate controlled with Toprol XL 100mg PO BID. Has a h/o stroke. Requires bridge with heparin in setting of renal disease. Goal INR 2-3. Currently 2.3. Cont heparin/warfarin combination and trend INR daily. (3) Fall: s/p fall at home with subsequent L hip fracture (4) Closed fracture of left hip: s/p left hip hemiarthroplasty for displaced femoral neck fracture by Dr. Aditya Torres. He is approximately two weeks post-op and doing well from a pain and functional standpoint. Able to ambulate in the hallways with walker. One week follow-up with Ortho recommended as outpatient with staple removal at that time. Cont daily wound care. (5) Anemia: Multifactorial 2/2 anemia of CKD, ACD, and acute blood loss anemia 2/2 gastritis. Has received 4 units of blood this admission. Episode of hematemesis upon admission. GI was consulted and felt this was consistent with chronic gastritis. Recent EGD performed in Jul 2019 revealed this. Pt has cirrhosis, however, no esophageal varices. A repeat EGD was not pursued this admission for risks associated with the repeat procedure in the setting of acute illness. He remains on PPI therapy and iron supplementation. H/H appears stable and no further episodes of hematemesis. Procrit given per Nephro. (6) Chronic gastritis: per EGD Jul 2019. Cont Lansoprozole. (7) Cirrhosis of liver: compensated, no known esophageal varices. Cont outpatient GI monitoring. (8) Chronic systolic heart failure: 2/[address] Initially required dobutamine to augment left ventricular function and renal perfusion, but now is compensated. Continue Lasix 80 mg p.o. twice daily. Cont medical management with Toprol XL, Crestor 20qAM. Not on ASA in setting of Plavix and warfarin. ACEI/ARB contraindicated with renal dysfunction. (9) CAD (coronary artery disease): chronic, stable. Cont medical management as above. (10) DMII (diabetes mellitus, type 2): Controlled, cont ISS with loose carb coverage (11) DVT prophylaxis: heparin drip/coumadin DNR/DNI Dispo-to rehab once INR therapeutic. Chelly Irving DO [facility] Hospitalist Subjective Patient is doing well today. Reports no issues. Pain is controlled with scheduled Tylenol. Ambulating as tolerated. Tolerating p.o. Eagerly awaiting transition to rehab. Review of Systems Review of Systems: All systems reviewed & are unremarkable except as noted in HPI & below Physical Exam Physical Exam: CONSTITUTIONAL: WNWD, vitals as above, generally well- appearing EYES: normal conjunctivae, no scleral icterus ENT: MMM RESPIRATORY: clear to auscultation bilaterally, no crackles, rales or wheezes, normal respiratory effort CARDIOVASCULAR: regular rate and rhythm, S1 and 2 heard without murmurs, gallops or rubs, no JVD, no peripheral edema GASTROINTESTINAL: normal bowel sounds, soft, nontender, nondistended MUSCULOSKELETAL: deconditioned, moving all extremities equally and with good effort against resistance, head is normocephalic and atraumatic SKIN: warm and dry, L lateral hip incision site with krystin in place. No surrounding erythema. Covered with dressing that is c/d/i NEUROLOGIC: CN 2-12 grossly intact, no sensory deficit, normal cognition, no gross focal deficits. PSYCHIATRIC: alert cooperative and oriented to person, place and time. Results & Data Vital Signs (Past 12 Hours) Vital Signs Temp Pulse Pulse Resp BP Pulse Ox 10/15/19 14:50 36.7 C 78 16 105/52 L 95 10/15/19 09:47 75 114/63 10/15/19 07:30 36.9 C 73 18 114/64 93 Laboratory Results Short CBC 10/15/19 Range/Units 04:59 WBC 9.24 (4.8-10.8) K/uL Hgb 8.2 L (14.0-18.0) g/dL Hct 25.8 L (42-52) % Plt Count 250 (130-400) K/uL BMP 10/15/19 04:59 Sodium 136 Potassium 3.5 Chloride 102 Carbon Dioxide 26 BUN 52 H Creatinine 2.50 H D Glucose 105 H Calcium 9.0 Medications Administered Current Inpatient Medications Acetaminophen (Tylenol) 500 mg PO Q8 [facility] Stop: 11/10/19 16:29 Last Admin: 10/15/19 13:16 Dose: 500 mg Documented by: Bisacodyl (Dulcolax) 10 mg [place] DAILY PRN PRN Reason: Constipation Stop: 10/28/19 17:03 Clopidogrel Bisulfate (Plavix) 75 mg PO QAM [facility] Stop: 10/30/19 08:59 Last Admin: 10/15/19 09:55 Dose: 75 mg Documented by: Dextrose (Dextrose 50%) 25 - 50 ml IV UD PRN; Protocol PRN Reason: Hypoglycemia Protocol Stop: 10/28/19 17:03 Last Admin: 10/01/19 03:09 Dose: 25 ml Documented by: Ferrous Gluconate (F[facility]ous Gluconate) [facility] Stop: 10/29/19 08:59 Last Admin: 10/15/19 09:56 Dose: 324 mg Documented by: Furosemide (Lasix) 80 mg PO BID17 [facility] Stop: 11/11/19 16:59 Last Admin: 10/15/19 09:55 Dose: 80 mg Documented by: Glucagon (Glucagen) 1 mg SQ UD PRN; Protocol PRN Reason: Hypoglycemia Protocol Stop: 10/28/19 17:03 Glucose (Glucose 40%) 15 - 30 gm PO UD PRN; Protocol PRN Reason: Hypoglycemia Protocol Stop: 10/28/19 17:03 Glucose (Dex4 Glucose) 4 - 8 tabs PO UD PRN; Protocol PRN Reason: Hypoglycemia Protocol Stop: 10/28/19 17:03 Hydromorphone HCl (Dilaudid) 0.5 mg IV Q8H PRN PRN Reason: Severe Pain Stop: 10/18/19 08:16 Heparin Sodium/Dextrose (Heparin Sodium/Dextrose) 25,000 units in 500 mls @ 14 mls/hr IV .Q24H [facility]; Protocol Stop: 11/10/19 21:14 Last Titration: 10/15/19 15:10 Dose: 700 units/hr, 14 mls/hr Documented by: Insulin Aspart (Novolog Flexpen) 0 units SC ACHS [facility] Stop: 11/10/19 20:59 Last Admin: 10/15/19 13:16 Dose: 3 units Documented by: Lansoprazole (Prevacid) 30 mg PO BID [facility] Stop: 11/01/19 20:59 Last Admin: 10/15/19 09:56 Dose: 30 mg Documented by: Magnesium Hydroxide (Milk Of Magnesia) 30 ml PO Q6H PRN PRN Reason: Constipation Stop: 10/29/19 17:06 Metoprolol Succinate (Toprol Xl) 100 mg PO BID [facility] Stop: 10/28/19 20:59 Last Admin: 10/15/19 09:54 Dose: 100 mg Documented by: Miscellaneous (Carbohydrates For Hypoglycemia) 15 - 30 gm PO UD PRN PRN Reason: Hypoglycemia Protocol Stop: 10/28/19 17:03 Naloxone HCl (Narcan) 0.1 mg IV Q5M PRN PRN Reason: Oversedation/Resp Depression Stop: 10/29/19 17:06 Nitroglycerin (Nitrostat) 0.4 mg SL UD PRN PRN Reason: Chest Pain Stop: 10/29/19 17:06 Testosteroine Gel~ Non-Formulary Patient's Own Med 1 ea TOP DAILY [facility] Stop: 10/31/19 08:59 Last Admin: 10/15/19 10:04 Dose: 1 btl Documented by: Ondansetron HCl (Zofran) 4 mg IV Q6H PRN PRN Reason: Nausea And Vomiting Stop: 10/29/19 17:06 Polyethylene Glycol (Miralax Powder Packet) 17 gm PO DAILY [facility] Stop: 11/02/19 08:59 Last Admin: 10/15/19 09:53 Dose: Not Given Documented by: Potassium Chloride (Klor-Con M20) 40 meq PO QAM [facility] Stop: 11/12/19 08:59 Last Admin: 10/15/19 09:54 Dose: 40 meq Documented by: Rosuvastatin Calcium (Crestor) 20 mg PO QAM [facility] Stop: 10/29/19 08:59 Last Admin: 10/15/19 09:54 Dose: 20 mg Documented by: Sennosides (Senokot) 17.2 mg PO HS [facility] Stop: 10/29/19 20:59 Last Admin: 10/14/19 20:35 Dose: Not Given Documented by: Sertraline HCl (Zoloft) 50 mg PO QAM [facility] Stop: 10/29/19 08:59 Last Admin: 10/15/19 09:55 Dose: 50 mg Documented by: Tamsulosin HCl (Flomax) 0.4 mg PO QAM PRN PRN Reason: unable to void Stop: 10/29/19 17:06 Last Admin: 09/30/19 08:52 Dose: 0.4 mg Documented by: Tramadol HCl (Ultram) 25 mg PO Q6H PRN PRN Reason: Mild Pain Stop: 10/28/19 17:03 Warfarin Sodium (Coumadin) 5 mg PO DAILY@1600 [facility] Stop: 11/10/19 15:59 Last Admin: 10/14/19 16:23 Dose: 5 mg Documented by: (1) DMII (diabetes mellitus, type 2) Diabetes mellitus complication status: without complication Diabetes mellitus fpc insulin use: without fpc use Qualified Code(s): E11.9 - Type 2 diabetes mellitus without complications (2) CAD (coronary artery disease) Associated angina: without angina Coronary Disease-Associated Artery/Lesion type: [place] artery [place] vs. transplanted heart: [place] heart Qualified Code(s): I25.10 - Atherosclerotic heart disease of [place] coronary artery without angina pectoris (3) Anemia Anemia type: unspecified type Qualified Code(s): D64.9 - Anemia, unspecified (4) Fall Encounter type: initial encounter Qualified Code(s): W19.XXXA - Unspecified fall, initial encounter (5) Closed fracture of left hip Encounter type: initial encounter Qualified Code(s): S72.002A - Fracture of unspecified part of neck of left femur, initial encounter for closed fracture
[2019-10-15] MEDS: WARFARIN SOD 5 MG TAB PO SCH (16:09)
[2019-10-15] MEDS: SENNA 8.6 MG TAB PO SCH (20:45)
[2019-10-16] MEDS: HEPARIN SODIUM/DEXTROSE 25,000 UNITS/500 ML BAG IV SCH (05:46)
[2019-10-16] MEDS: ACETAMINOPHEN 500 MG TAB PO SCH ×3 (05:52→21:26)
[2019-10-16 07:21] LABS: INR 2.5 (0.9-1.1); Partial Thromboplastin Ratio 2.6; Prothrombin Time 23.7 Seconds (9.0-12.0)
[2019-10-16 07:40] LABS: Partial Thromboplastin Time 69.2 Seconds (21.0-31.0)
[2019-10-16] MEDS: INSULIN ASPART 100 UNITS/ML 3 ML PEN SC SCH ×4 (08:42→22:12)
[2019-10-16] MEDS: POLYETHYLENE (MIRALAX) 17 GM PACK PO SCH (08:55)
[2019-10-16] MEDS: FERROUS GLUCONATE 324 MG TAB PO SCH (08:59)
[2019-10-16] MEDS: POTASSIUM CHLORIDE 20 MEQ TABCR PO SCH (08:59)
[2019-10-16] MEDS: ROSUVASTATIN CALCIUM 20 MG TAB PO SCH (08:59)
[2019-10-16] MEDS: METOPROLOL SUCC 50MG EXT REL TAB PO SCH ×2 (09:00→21:24)
[2019-10-16] MEDS: LANSOPRAZOLE 30 MG SOLTAB PO SCH ×2 (09:00→21:23)
[2019-10-16] MEDS: FUROSEMIDE 80 MG TAB PO SCH ×2 (09:00→17:19)
[2019-10-16] MEDS: SERTRALINE HCL 50 MG TABLET PO SCH (09:00)
[2019-10-16] MEDS: CLOPIDOGREL BISULFATE 75 MG TAB PO SCH (09:00)
[2019-10-16] MEDS: TESTOSTERONE TOP SCH (10:51)
[2019-10-16] MEDS: WARFARIN SOD 5 MG TAB PO SCH (16:15)
--- NOTE | 2019-10-16 18:59 | Hospitalist Progress Note ---
Date of Service October 16, 2019 Assessment & Plan (1) Acute worsening of stage 4 chronic kidney disease: Likely 2/2 ATN -admission creatinine was 3.79 on 10/08/19 and creatinine continued to rise with creatinine peaking to 6.6 on 10/05/19. Required dobutamine at one point this hospitalization. Consideration for perm cath placement and initiation of dialysis twice during this hospitalization, however, continued monitoring reveals improvement and this was avoided. Continues on Lasix p.o. per Nephrology and low-dose torsemide. Renal function continues to improve daily. Creatinine 2.5 now and patient doing very well. Still planning for outpatient follow-up with Vascular Surgery for fistula placement. (2) Chronic atrial fibrillation: Rate controlled with Toprol XL 100mg PO BID. Has a h/o stroke. Requires bridge with heparin in setting of renal disease. Underwent bridge with heparin drip. Now therapeutic on warfarin so heparin was discontinued. (3) Fall: s/p fall at home with subsequent L hip fracture (4) Closed fracture of left hip: s/p left hip hemiarthroplasty for displaced femoral neck fracture by Dr. Aditya Torres. He is approximately two weeks post-op and doing well from a pain and functional standpoint. Able to ambulate in the hallways with walker. One week follow-up with Ortho recommended as outpatient with staple removal at that time. Cont daily wound care. (5) Anemia: Multifactorial 2/2 anemia of CKD, ACD, and acute blood loss anemia 2/2 gastritis. Has received 4 units of blood this admission. Episode of hematemesis upon admission. GI was consulted and felt this was consistent with chronic gastritis. Recent EGD performed in Jul 2019 revealed this. Pt has cirrhosis, however, no esophageal varices. A repeat EGD was not pursued this admission for risks associated with the repeat procedure in the setting of acute illness. He remains on PPI therapy and iron supplementation. H/H appears stable and no further episodes of hematemesis. Procrit given per Nephro. (6) Chronic gastritis: per EGD Jul 2019. Cont Lansoprozole. (7) Cirrhosis of liver: compensated, no known esophageal varices. Cont outpatient GI monitoring. (8) Chronic systolic heart failure: 2/[address]. Initially required dobutamine to augment left ventricular function and renal perfusion, but now is compensated. Continue Lasix 80 mg p.o. twice daily. Cont medical management with Toprol XL, Crestor 20qAM. Not on ASA in setting of Plavix and warfarin. ACEI/ARB contraindicated with renal dysfunction. (9) CAD (coronary artery disease): chronic, stable. Cont medical management as above. (10) DMII (diabetes mellitus, type 2): Controlled, cont ISS with loose carb coverage (11) DVT prophylaxis: coumadin DNR/DNI Dispo-to rehab. [facility] was declined and appear to peer was performed by me today however was still declined. This information was shared with the family. He is authorized to go to [facility] and there is a bed available however family declines this as an option. Continue to work with and in case management who is aware of the situation. He is medically stable for discharge at any point. Chelly Irving DO [facility] Hospitalist Subjective No changes, patient doing well. Ambulating as tolerated. Tolerating p.o. Eagerly awaiting discharge. Review of Systems Review of Systems: All systems reviewed & are unremarkable except as noted in HPI & below Physical Exam Physical Exam: CONSTITUTIONAL: WNWD, vitals as above, generally well- appearing EYES: normal conjunctivae, no scleral icterus ENT: MMM RESPIRATORY: clear to auscultation bilaterally, no crackles, rales or wheezes, normal respiratory effort CARDIOVASCULAR: regular rate and rhythm, S1 and 2 heard without murmurs, gallops or rubs, no JVD, no peripheral edema GASTROINTESTINAL: normal bowel sounds, soft, nontender, nondistended MUSCULOSKELETAL: deconditioned, moving all extremities equally and with good effort against resistance, head is normocephalic and atraumatic SKIN: warm and dry, L lateral hip incision site with krystin in place. No surrounding erythema. Covered with dressing that is c/d/i NEUROLOGIC: CN 2-12 grossly intact, no sensory deficit, normal cognition, no gross focal deficits. PSYCHIATRIC: alert cooperative and oriented to person, place and time. Results & Data Vital Signs (Past 12 Hours) Vital Signs Temp Pulse Pulse Resp BP BP Pulse Ox 10/16/19 15:16 36.7 C 70 17 113/67 96 10/16/19 08:56 75 117/61 10/16/19 07:43 36.8 C 81 16 124/71 93 Medications Administered Current Inpatient Medications Acetaminophen (Tylenol) 500 mg PO Q8 [facility] Stop: 11/10/19 16:29 Last Admin: 10/16/19 13:49 Dose: Not Given Documented by: Bisacodyl (Dulcolax) 10 mg [place] DAILY PRN PRN Reason: Constipation Stop: 10/28/19 17:03 Clopidogrel Bisulfate (Plavix) 75 mg PO QAM [facility] Stop: 10/30/19 08:59 Last Admin: 10/16/19 09:00 Dose: 75 mg Documented by: Dextrose (Dextrose 50%) 25 - 50 ml IV UD PRN; Protocol PRN Reason: Hypoglycemia Protocol Stop: 10/28/19 17:03 Last Admin: 10/01/19 03:09 Dose: 25 ml Documented by: Ferrous Gluconate (Ferrous Gluconate) [facility] Stop: 10/29/19 08:59 Last Admin: 10/16/19 08:59 Dose: 324 mg Documented by: Furosemide (Lasix) 80 mg PO BID17 [facility] Stop: 11/11/19 16:59 Last Admin: 10/16/19 17:19 Dose: 80 mg Documented by: Glucagon (Glucagen) 1 mg SQ UD PRN; Protocol PRN Reason: Hypoglycemia Protocol Stop: 10/28/19 17:03 Glucose (Glucose 40%) 15 - 30 gm PO UD PRN; Protocol PRN Reason: Hypoglycemia Protocol Stop: 10/28/19 17:03 Glucose (Dex4 Glucose) 4 - 8 tabs PO UD PRN; Protocol PRN Reason: Hypoglycemia Protocol Stop: 10/28/19 17:03 Hydromorphone HCl (Dilaudid) 0.5 mg IV Q8H PRN PRN Reason: Severe Pain Stop: 10/18/19 08:16 Insulin Aspart (Novolog Flexpen) 0 units SC ACHS [facility] Stop: 11/10/19 20:59 Last Admin: 10/16/19 18:12 Dose: 2 units Documented by: Lansoprazole (Prevacid) 30 mg PO BID [facility] Stop: 11/01/19 20:59 Last Admin: 10/16/19 09:00 Dose: 30 mg Documented by: Magnesium Hydroxide (Milk Of Magnesia) 30 ml PO Q6H PRN PRN Reason: Constipation Stop: 10/29/19 17:06 Metoprolol Succinate (Toprol Xl) 100 mg PO BID [facility] Stop: 10/28/19 20:59 Last Admin: 10/16/19 09:00 Dose: 100 mg Documented by: Miscellaneous (Carbohydrates For Hypoglycemia) 15 - 30 gm PO UD PRN PRN Reason: Hypoglycemia Protocol Stop: 10/28/19 17:03 Naloxone HCl (Narcan) 0.1 mg IV Q5M PRN PRN Reason: Oversedation/Resp Depression Stop: 10/29/19 17:06 Nitroglycerin (Nitrostat) 0.4 mg SL UD PRN PRN Reason: Chest Pain Stop: 10/29/19 17:06 Testosteroine Gel~ Non-Formulary Patient's Own Med 1 ea TOP DAILY [facility] Stop: 10/31/19 08:59 Last Admin: 10/16/19 10:51 Dose: 1 btl Documented by: Ondansetron HCl (Zofran) 4 mg IV Q6H PRN PRN Reason: Nausea And Vomiting Stop: 10/29/19 17:06 Polyethylene Glycol (Miralax Powder Packet) 17 gm PO DAILY [facility] Stop: 11/02/19 08:59 Last Admin: 10/16/19 08:55 Dose: Not Given Documented by: Potassium Chloride (Klor-Con M20) 40 meq PO QAM [facility] Stop: 11/12/19 08:59 Last Admin: 10/16/19 08:59 Dose: 40 meq Documented by: Rosuvastatin Calcium (Crestor) 20 mg PO QAM [facility] Stop: 10/29/19 08:59 Last Admin: 10/16/19 08:59 Dose: 20 mg Documented by: Sennosides (Senokot) 17.2 mg PO HS [facility] Stop: 10/29/19 20:59 Last Admin: 10/15/19 20:45 Dose: Not Given Documented by: Sertraline HCl (Zoloft) 50 mg PO QAM [facility] Stop: 10/29/19 08:59 Last Admin: 10/16/19 09:00 Dose: 50 mg Documented by: Tamsulosin HCl (Flomax) 0.4 mg PO QAM PRN PRN Reason: unable to void Stop: 10/29/19 17:06 Last Admin: 09/30/19 08:52 Dose: 0.4 mg Documented by: Tramadol HCl (Ultram) 25 mg PO Q6H PRN PRN Reason: Mild Pain Stop: 10/28/19 17:03 Warfarin Sodium (Coumadin) 5 mg PO DAILY@1600 [facility] Stop: 11/10/19 15:59 Last Admin: 10/16/19 16:15 Dose: 5 mg Documented by: (1) Fall Encounter type: initial encounter Qualified Code(s): W19.XXXA - Unspecified fall, initial encounter (2) Closed fracture of left hip Encounter type: initial encounter Qualified Code(s): S72.002A - Fracture of unspecified part of neck of left femur, initial encounter for closed fracture (3) Anemia Anemia type: unspecified type Qualified Code(s): D64.9 - Anemia, unspecified (4) CAD (coronary artery disease) Coronary Disease-Associated Artery/Lesion type: habematolel artery [place] vs. 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
[2019-10-16] MEDS: SENNA 8.6 MG TAB PO SCH (21:24)
[2019-10-17] MEDS: ACETAMINOPHEN 500 MG TAB PO SCH ×2 (05:49→13:09)
[2019-10-17 07:43] LABS: Partial Thromboplastin Ratio 2.3
[2019-10-17 07:46] LABS: Partial Thromboplastin Time 61.2 Seconds (21.0-31.0)
[2019-10-17] MEDS: INSULIN ASPART 100 UNITS/ML 3 ML PEN SC SCH ×2 (08:48→13:08)
[2019-10-17] MEDS: POLYETHYLENE (MIRALAX) 17 GM PACK PO SCH (08:49)
[2019-10-17] MEDS: FUROSEMIDE 80 MG TAB PO SCH ×2 (08:50→16:29)
[2019-10-17] MEDS: CLOPIDOGREL BISULFATE 75 MG TAB PO SCH (08:50)
[2019-10-17] MEDS: LANSOPRAZOLE 30 MG SOLTAB PO SCH (08:50)
[2019-10-17] MEDS: POTASSIUM CHLORIDE 20 MEQ TABCR PO SCH (08:50)
[2019-10-17] MEDS: ROSUVASTATIN CALCIUM 20 MG TAB PO SCH (08:50)
[2019-10-17] MEDS: METOPROLOL SUCC 50MG EXT REL TAB PO SCH (08:50)
[2019-10-17] MEDS: SERTRALINE HCL 50 MG TABLET PO SCH (08:51)
[2019-10-17] MEDS: FERROUS GLUCONATE 324 MG TAB PO SCH (08:51)
[2019-10-17] MEDS: TESTOSTERONE TOP SCH (09:20)
--- NOTE | 2019-10-17 10:18 | Nephrology Progress Note ---
Date of Service October 17, 2019 Assessment & Plan (1) Acute worsening of stage 4 chronic kidney disease: advanced ckd 4 w/ chronic volume overload and very labile creatinine ranging as OP from upper 2's to mid 3's, creatinine most recent of 2.5 which is close to his baseline. -cont FR 1.5L and cont <2 gm Na diet -consent for dialysis obtained from pt w/ daughter lorraine present and on chart; is not decision maker >> but pt not needing dialysis at this point -From renal standpoint patient can be discharged ->>>for d/c >> weekly bmp, cbc; f/u in CKD clinic 2-4 wks w/ Dr. Olivares -Renal will sign off at this point. Please reconsult if additional questions or concerns (2) Fluid overload: Improved on current regimen. Please ensure a low-salt diet and close monitoring of weight (3) Acute on chronic anemia: Hgb 6.9 on presentation w/ chronic gastritis w/ scant heme + emesis in ER INR 4.8>1.7; pt had actually been bridging w/ lovenox in prep for AVF surgery on 10/02 > per epic, last coumadin dose was to be 09/26, then start lovenox 09/29 >had pRBC 2 units day of OR; had another unit 09/30. GI considering EGD >> post transfusion 10/02, -had epo 10/11 13137 units SQ x 1 -Continue Epogen 20,000 units weekly as needed (4) Closed fracture of left hip: s/p L cemented bipolar hip arthroplasty 09/29 Subjective Patient reports feeling better. No shortness of breath or urinary symptoms. Blood pressure is controlled. He was doing PT at the time of my visit. Review of Systems Review of Systems: All systems reviewed & are unremarkable except as noted in HPI & below Physical Exam Physical Exam: General exam: Appears comfortable, no acute distress HEENT: Pupils are equal and reactive to light Neck: No JVD, neck is supple trachea is midline Respiratory system: Clear breath sounds bilaterally. Gastrointestinal: Abdomen is soft, non distended, non tender, bowel sounds are present CVS: Regular rate and rhythm. No murmurs, rubs or gallops Musculoskeletal: No joint or muscle tenderness Extremities: Non tender, no edema, peripheral pulses are present Neuro: Oriented, no tremors, no focal neurological deficits Skin: No rashes Results & Data Vital Signs (Past 12 Hours) Vital Signs Temp Pulse Resp BP Pulse Ox 10/17/19 07:35 36.7 C 76 16 106/61 96 10/16/19 23:19 36.9 C 76 18 108/64 95 Laboratory Results Laboratory Results - last 24 hr 10/16/19 10/16/19 10/16/19 12:28 17:14 20:41 APTT PTT Ratio POC Glucose 98 168 H 140 H 10/17/19 10/17/19 07:06 08:29 APTT 61.2 H* PTT Ratio 2.3 POC Glucose 125 H (1) Fluid overload Hypervolemia type: other Qualified Code(s): E87.79 - Other fluid overload (2) Closed fracture of left hip Encounter type: initial encounter Qualified Code(s): S72.002A - Fracture of unspecified part of neck of left femur, initial encounter for closed fracture
--- NOTE | 2019-10-17 13:09 | Hospitalist Progress Note ---
Date of Service October 17, 2019 Assessment & Plan (1) Acute worsening of stage 4 chronic kidney disease: Likely 2/2 ATN -admission creatinine was 3.79 on 10/08/19 and creatinine continued to rise with creatinine peaking to 6.6 on 10/05/19. Required dobutamine at one point this hospitalization. Appreciate nephrology input and recommendation Continues on Lasix p.o. per Nephrology and low-dose torsemide. Renal function continues to improve daily and the creatinine is 2.50 as on 10/15 Will need to have weekly BMP and CBC and follow-up with CKD clinic in 2 to [address] Olivares Clinically stable to be discharged (2) Chronic atrial fibrillation: Rate controlled with Toprol XL 100mg PO BID. Has a h/o stroke. Required bridge with heparin in setting of renal disease. Back on Coumadin INR is therapeutic as of 10/16 We will continue current dose of Coumadin and have an INR check on tomorrow (3) Closed fracture of left hip: s/p fall at home with subsequent L hip fracture s/p left hip hemiarthroplasty for displaced femoral neck fracture by Dr. Aditya Torres. He is approximately two weeks post-op and doing well from a pain and functional standpoint. Able to ambulate in the hallways with walker. One week follow-up with Ortho recommended as outpatient with staple removal at that time. Cont daily wound care. Ortho will remove the krystin next week (4) Anemia: Multifactorial 2/2 anemia of CKD, ACD, and acute blood loss anemia 2/2 gastritis. Has received 4 units of blood this admission. Episode of hematemesis upon admission. GI was consulted and felt this was consistent with chronic gastritis. Recent EGD performed in Jul 2019 revealed this. Pt has cirrhosis, however, no esophageal varices. A repeat EGD was not pursued this admission for risks associated with the repeat procedure in the setting of acute illness. He remains on PPI therapy and iron supplementation and received Procrit H/H appears stable and no further episodes of hematemesis. (5) Chronic gastritis: per EGD Jul 2019. Cont Lansoprozole. (6) Cirrhosis of liver: Compensated, no known esophageal varices. Cont outpatient GI monitoring. (7) Chronic systolic heart failure: 2/[address] Initially required dobutamine to augment left ventricular function and renal perfusion, but now is compensated. Continue Lasix 80 mg p.o. twice daily. Cont medical management with Toprol XL, Crestor 20qAM. Not on ASA in setting of Plavix and warfarin. ACEI/ARB contraindicated with renal dysfunction. Echo of the heart: Left ventricular systolic function is mildly reduced with EF of 45 to 50%, flattened septum is consistent with RV pressure/volume overload, apical wall motion abnormality may reflect pacemaker activation, right ventricle is severely dilated, right ventricular systolic function is moderately reduced, there is moderate mitral regurgitation, there is severe tricuspid regurgitation, and dilated inferior vena cava with reduced collapsibility with sleep indicates an elevated right atrial pressure of 15 mmHg Appreciate cardiology input and recommendation Will get Lasix 80 mg twice daily on discharge (8) CAD (coronary artery disease): chronic, stable. Cont medical management as above. Has been back on oral Plavix (9) DMII (diabetes mellitus, type 2): Controlled, cont ISS with loose carb coverage (10) DVT prophylaxis: coumadin DNR/DNI Dispo-to rehab. [facility] was declined and appear to peer was performed by me today however was still declined. This information was shared with the family. He is authorized to go to [facility] and there is a bed available however family declines this as an option. Continue to work with and in case management who is aware of the situation. He is medically stable for discharge at any point. The patient has been accepted to [facility] and he can go today. Subjective 10/17 The patient was seen and examined in medical floor Mr. Cottrell is an 79-year-old male who has significant PMH of CAD with history of stent 2012, chronic combined systolic and diastolic CHF, chronic atrial fibrillation anticoagulated on warfarin, history of VTACH s/p AICD, history of CVA, HTN, HLD, CKD stage IV, T2DM, history of right clear-cell kidney CA s/p ablation, chronic gastritis who presented to [facility] after sustaining mechanical fall at home prior to arrival. Has had fracture of the left hip which has been repaired He has been feeling much better today He has been getting physical therapy as usual and has a bit to go to continue rehab in a skilled care facility Review of Systems Review of Systems: All systems reviewed and are unremarkable except as noted below Physical Exam Physical Exam: Sitting on a chair without any acute symptoms Constitutional: well developed and cooperative; no acute distress and not ill appearing Eyes: PERRL, conjunctivae normal, anicteric sclerae EOM intact bilaterally ENMT: external ear and nose normal, oropharynx normal Neck: trachea midline, no thyromegaly normal visual inspection Respiratory: normal respiratory effort; no respiratory distress, no labored breathing and no retractions Auscultation: + diminished lung sounds Cardiovascular: Rate/Rhythm: regular rate, regular rhythm and + irregularly irregular Heart Sounds: + murmur (soft. syst.) Chest (Breasts): Chest: normal inspection of chest Gastrointestinal (Abdomen): Inspection/Auscultation: abdomen normal to inspection and normal bowel sounds Percussion/Palpation: abdomen soft; abdomen nontender and no guarding Musculoskeletal: Head/Neck/Chest: normocephalic, head atraumatic and neck supple Skin: no rashes, warm and dry Neurologic: awake Cranial Nerves: PERRL, EOM intact bilaterally and normal facial strength Alert, awake and oriented x3. Remains generally weak but no focal neuro deficit. Psychiatric: A+Ox3, euthymic affect Orientation: cooperative Lymphatic: no cervical or axillary lymphadenopathy Results & Data Vital Signs (Past 12 Hours) Vital Signs Temp Pulse Resp BP Pulse Ox 10/17/19 07:35 36.7 C 76 16 106/61 96 Medications Administered Current Inpatient Medications Acetaminophen (Tylenol) 500 mg PO Q8 [facility] Stop: 11/10/19 16:29 Last Admin: 10/17/19 13:09 Dose: 500 mg Documented by: Bisacodyl (Dulcolax) 10 mg [place] DAILY PRN PRN Reason: Constipation Stop: 10/28/19 17:03 Clopidogrel Bisulfate (Plavix) 75 mg PO QAM [facility] Stop: 10/30/19 08:59 Last Admin: 10/17/19 08:50 Dose: 75 mg Documented by: Dextrose (Dextrose 50%) 25 - 50 ml IV UD PRN; Protocol PRN Reason: Hypoglycemia Protocol Stop: 10/28/19 17:03 Last Admin: 10/01/19 03:09 Dose: 25 ml Documented by: Ferrous Gluconate (Ferrous Gluconate) 324 mg PO QAM [facility] Stop: 10/29/19 08:59 Last Admin: 10/17/19 08:51 Dose: 324 mg Documented by: Furosemide (Lasix) 80 mg PO BID17 [facility] Stop: 11/11/19 16:59 Last Admin: 10/17/19 08:50 Dose: 80 mg Documented by: Glucagon (Glucagen) 1 mg SQ UD PRN; Protocol PRN Reason: Hypoglycemia Protocol Stop: 10/28/19 17:03 Glucose (Glucose 40%) 15 - 30 gm PO UD PRN; Protocol PRN Reason: Hypoglycemia Protocol Stop: 10/28/19 17:03 Glucose (Dex4 Glucose) 4 - 8 tabs PO UD PRN; Protocol PRN Reason: Hypoglycemia Protocol Stop: 10/28/19 17:03 Hydromorphone HCl (Dilaudid) 0.5 mg IV Q8H PRN PRN Reason: Severe Pain Stop: 10/18/19 08:16 Insulin Aspart (Novolog Flexpen) 0 units SC ACHS [facility] Stop: 11/10/19 20:59 Last Admin: 10/17/19 13:08 Dose: Not Given Documented by: Lansoprazole (Prevacid) 30 mg PO BID [facility] Stop: 11/01/19 20:59 Last Admin: 10/17/19 08:50 Dose: 30 mg Documented by: Magnesium Hydroxide (Milk Of Magnesia) 30 ml PO Q6H PRN PRN Reason: Constipation Stop: 10/29/19 17:06 Metoprolol Succinate (Toprol Xl) 100 mg PO BID [facility] Stop: 10/28/19 20:59 Last Admin: 10/17/19 08:50 Dose: 100 mg Documented by: Miscellaneous (Carbohydrates For Hypoglycemia) 15 - 30 gm PO UD PRN PRN Reason: Hypoglycemia Protocol Stop: 10/28/19 17:03 Naloxone HCl (Narcan) 0.1 mg IV Q5M PRN PRN Reason: Oversedation/Resp Depression Stop: 10/29/19 17:06 Nitroglycerin (Nitrostat) 0.4 mg SL UD PRN PRN Reason: Chest Pain Stop: 10/29/19 17:06 Testosteroine Gel~ Non-Formulary Patient's Own Med 1 ea TOP DAILY [facility] Stop: 10/31/19 08:59 Last Admin: 10/17/19 09:20 Dose: 1 btl Documented by: Ondansetron HCl (Zofran) 4 mg IV Q6H PRN PRN Reason: Nausea And Vomiting Stop: 10/29/19 17:06 Polyethylene Glycol (Miralax Powder Packet) 17 gm PO DAILY [facility] Stop: 11/02/19 08:59 Last Admin: 10/17/19 08:49 Dose: Not Given Documented by: Potassium Chloride (Klor-Con M20) 40 meq PO QAM [facility] Stop: 11/12/19 08:59 Last Admin: 10/17/19 08:50 Dose: 40 meq Documented by: Rosuvastatin Calcium (Crestor) 20 mg PO QAM [facility] Stop: 10/29/19 08:59 Last Admin: 10/17/19 08:50 Dose: 20 mg Documented by: Sennosides (Senokot) 17.2 mg PO HS [facility] Stop: 10/29/19 20:59 Last Admin: 10/16/19 21:24 Dose: Not Given Documented by: Sertraline HCl (Zoloft) 50 mg PO QAM [facility] Stop: 10/29/19 08:59 Last Admin: 10/17/19 08:51 Dose: 50 mg Documented by: Tamsulosin HCl (Flomax) 0.4 mg PO QAM PRN PRN Reason: unable to void Stop: 10/29/19 17:06 Last Admin: 09/30/19 08:52 Dose: 0.4 mg Documented by: Tramadol HCl (Ultram) 25 mg PO Q6H PRN PRN Reason: Mild Pain Stop: 10/28/19 17:03 Warfarin Sodium (Coumadin) 5 mg PO DAILY@1600 [facility] Stop: 11/10/19 15:59 Last Admin: 10/16/19 16:15 Dose: 5 mg Documented by: (1) Closed fracture of left hip Encounter type: initial encounter Qualified Code(s): S72.002A - Fracture of unspecified part of neck of left femur, initial encounter for closed fracture (2) Anemia Anemia type: unspecified type Qualified Code(s): D64.9 - Anemia, unspecified (3) CAD (coronary artery disease) Coronary Disease-Associated Artery/Lesion type: [place] artery [place] vs. 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
--- NOTE | 2019-10-17 15:33 | Orthopedic Progress Note ---
Date of Service October 17, 2019 Assessment & Plan (1) S/P hip hemiarthroplasty: He is just about 2 weeks post op. I did remove his krystin today, applied steri strips. He is being discharged today. We will plan to see him back in about 4 weeks. PT/OT: WBAT, hip precautions He was seen and examined by Dr. Torres Subjective 79 y/o male approx 2 weeks post op from left hip ilana. Minimal pain. He is getting ready to be discharged today. Physical Exam Physical Exam: Alert, NAD. Icision healing appropriately. Krystin intact. No drainage. Minimal redness around some krystin. No signs of infection. NVI. Able to DF/PF Results & Data Vital Signs (Past 12 Hours) Vital Signs Temp Pulse Pulse Resp BP BP Pulse Ox 10/17/19 14:25 36.7 C 81 76 16 106/61 117/61 96 10/17/19 07:35 36.7 C 76 16 106/61 96 PG Care Time/CCT Total # of Minutes Spent Total Time Spent with Patient: Total time spent is greater than 50% in coordination of care (as documented) at patient's floor/unit and/or counseling patient:
[2019-10-17] MEDS: WARFARIN SOD 5 MG TAB PO SCH (16:29)
--- NOTE | 2019-10-18 07:54 | Discharge Summary ---
Date of Service October 18, 2019 Admission HPI Per Admitting Provider Mr. Cottrell is an 79-year-old male who has significant PMH of CAD with history of stent 2012, chronic combined systolic and diastolic CHF, chronic atrial fibrillation anticoagulated on warfarin, history of VTACH s/p AICD, history of CVA, HTN, HLD, CKD stage IV, T2DM, history of right clear-cell kidney CA s/p ablation, chronic gastritis who presents to [facility] after sustaining mechanical fall at home prior to arrival. Patient was upright when trying to place his slipper on, lost his balance and fell on his left side. He denies hitting head or hugh syncope. He denies feeling dizziness or lightheadedness prior to the fall. He did have significant pain on impact; therefore, was brought to ED. Currently patient states he feels, "fine." He denies any chest pain, shortness of breath, palpitations, fever, chills, sweats, lightheadedness, dizziness, headache, abdominal pain, melena, hematochezia, dysuria, increased urgency or frequency with urination. He did have episode of nausea and emesis in ED. He further complains of significant left-sided hip pain, rated 8/10, nonradiating. , daughter and [id number] are at bedside. He lives at home with his and is mostly independent. He no longer drives but ambulates without assist device. He does not smoke or drink alcohol, occasionally chews snuff a few times a week. His appetite has been good and prior to arrival family feels he has been doing well. He does have history of CHF and last weekend 5 pound weight gain. He was instructed to increase his torsemide 100 mg 2 twice daily for 3 days. His baseline weight is approximately 171. Of significance patient was hospitalized 07/25 to 07/28/2019 secondary to you GIB, ABL anemia while on Coumadin. He did undergo EGD which revealed severe chronic gastritis and was recommended to be on PPI twice daily. In ED patient did have left hip x-ray which revealed subcapital left hip fracture. Hemoglobin and hematocrit decreased from baseline at 6.9 and 21.8, elevated INR 4.8, A/C CKD-4 BUN/creatinine 58/3.79 Chest x-ray revealed pulmonary vascular congestion and probable trace pleural effusions. He remained hemodynamically stable while in ED. He was typed and crossed and transfused 1 unit PRBC. Admission Exam Per Admitting Provider Physical Exam: Constitutional: Elderly, male, pale, vitals as above, NAD, sitting up in bed, answers questions appropriately Head: Normocephalic, Atraumatic Eyes: PERRL, conjunctivae normal, anicteric sclerae ENMT: external ear and nose normal, oropharynx with dry mucous membranes Neck: trachea midline, no thyromegaly normal visual inspection Respiratory: normal respiratory effort, lungs clear to auscultation with decreased breath sounds at bases, no wheeze, rales, rhonchi. Normal insp/exp effort, no accessory muscle use Cardiovascular: Irr/Irr, 2/6 LAURA noted throughout precordium, no edema Vessels: no JVD or carotid bruit Chest: normal inspection of chest Abdomen: normal bowel sounds x 4, soft, nontender, +hepatomegaly, Musculoskeletal: no cyanosis or clubbing, cap refill > 2, extremities motor strength 5/5 except LLE not examined due to fracture. LLE inverted and shortened Skin: no rashes, warm and dry normal turgor Neurologic: PERRL, EOMI, accommodation nl, no face palsy, no dysarthria CN's II-XI intact bilaterally and moves all extremities Psychiatric: A+Ox3, euthymic affect Lymphatic: no cervical or axillary lymphadenopathy : deferred Principal Diagnosis Fall, Closed fracture of left hip, Anemia, Acute worsening of stage 4 chronic kidney disease, hypotension, Chronic systolic heart failure, Chronic atrial fibrillation, Supratherapeutic INR (resolved), Cirrhosis of liver, Chronic gastritis, Type 2 diabetes mellitus Discharge Exam Constitutional well developed and cooperative; no acute distress and not ill appearing Eyes PERRL, conjunctivae normal, anicteric sclerae EOM intact bilaterally ENMT external ear and nose normal, oropharynx normal Neck trachea midline, no thyromegaly normal visual inspection Respiratory normal respiratory effort; no respiratory distress, no labored breathing and no retractions Auscultation: + diminished lung sounds Cardiovascular RRR, no murmur, no edema Rate/Rhythm: regular rate, regular rhythm and + irregularly irregular Heart Sounds: + murmur (soft. syst.) Chest (Breasts) Chest: normal inspection of chest Gastrointestinal (Abdomen) normal bowel sounds, soft, nontender, no hepatosplenomegaly Inspection/Auscultation: abdomen normal to inspection and normal bowel sounds Percussion/Palpation: abdomen soft; abdomen nontender and no guarding Musculoskeletal Head/Neck/Chest: normocephalic, head atraumatic and neck supple Skin no rashes, warm and dry Neurologic awake Cranial Nerves: PERRL, EOM intact bilaterally and normal facial strength Psychiatric A+Ox3, euthymic affect Orientation: cooperative Lymphatic no cervical or axillary lymphadenopathy Discharge Data Allergies Allergy/AdvReac Type Severity Reaction Status Date / Time fentanyl Allergy Severe Decreased Verified 09/28/19 13:19 oxygen saturation, low RR, unresponsive midazolam Allergy Severe Decreased Verified 09/28/19 13:19 oxygen saturation, low RR, unresponsive. codeine Allergy Unknown GI SYMPTOMS Verified 09/28/19 13:19 promethazine [From Phenergan] AdvReac Severe severe Verified 09/28/19 13:19 fatigue BRIANA Inhibitors AdvReac Mild cough, Verified 09/28/19 13:19 cefuroxime AdvReac Mild GI SYMPTOMS Verified 09/28/19 13:19 Consultations 09/28/19 13:22 ED Decision to Admit Stat 09/28/19 14:27 Consult Anesthesiology Routine Consult Cardiology Routine Consult Gastroenterology Routine Consult Orthopedic Surgery Routine 09/28/19 14:45 Consult Nephrology Routine 09/28/19 17:04 Consult Case Management - Discharge Planning Routine 10/02/19 14:18 Consult Patient Rep / Service Excellence [Consult Patient Services] Routine 10/03/19 10:50 Consult Vascular Surgery Routine Procedures Performed Operation Date: 09/29/19 07:30 Actual Procedures p Left Hip Hemiarthroplasty(Left) - Aditya Torres MD Operation Date: 09/29/19 15:30 <No data on this case meets the specified criteria> Operation Date: 10/04/19 12:30 <No data on this case meets the specified criteria> Operation Date: 10/11/19 14:20 <No data on this case meets the specified criteria> Ordered Studies 09/28/19 11:48 CT head/brain wo con Stat 10/03/19 02:00 US point of care ultrasound Routine Hospital Course (1) Acute worsening of stage 4 chronic kidney disease: Likely 2/2 ATN -admission creatinine was 3.79 on 10/08/19 and creatinine continued to rise with creatinine peaking to 6.6 on 10/05/19. Required dobutamine at one point this hospitalization. Appreciate nephrology input and recommendation Continues on Lasix p.o. per Nephrology and low-dose torsemide. Renal function continues to improve daily and the creatinine is 2.50 as on 10/15 Will need to have weekly BMP and CBC and follow-up with CKD clinic in 2 to [address] Olivares Clinically stable to be discharged (2) Chronic atrial fibrillation: Rate controlled with Toprol XL 100mg PO BID. Has a h/o stroke. Required bridge with heparin in setting of renal disease. Back on Coumadin INR is therapeutic as of 10/16 We will continue current dose of Coumadin and have an INR check on tomorrow (3) Closed fracture of left hip: s/p fall at home with subsequent L hip fracture s/p left hip hemiarthroplasty for displaced femoral neck fracture by Dr. Aditya Torres. He is approximately two weeks post-op and doing well from a pain and functional standpoint. Able to ambulate in the hallways with walker. One week follow-up with Ortho recommended as outpatient with staple removal at that time. Cont daily wound care. Ortho will remove the krystin next week (4) Anemia: Multifactorial 2/2 anemia of CKD, ACD, and acute blood loss anemia 2/2 gastritis. Has received 4 units of blood this admission. Episode of hematemesis upon admission. GI was consulted and felt this was consistent with chronic gastritis. Recent EGD performed in Jul 2019 revealed this. Pt has cirrhosis, however, no esophageal varices. A repeat EGD was not pursued this admission for risks associated with the repeat procedure in the setting of acute illness. He remains on PPI therapy and iron supplementation and received Procrit H/H appears stable and no further episodes of hematemesis. (5) Chronic gastritis: per EGD Jul 2019. Cont Lansoprozole. (6) Cirrhosis of liver: Compensated, no known esophageal varices. Cont outpatient GI monitoring. (7) Chronic systolic heart failure: 2/[address]. Initially required dobutamine to augment left ventricular function and renal perfusion, but now is compensated. Continue Lasix 80 mg p.o. twice daily. Cont medical management with Toprol XL, Crestor 20qAM. Not on ASA in setting of Plavix and warfarin. ACEI/ARB contraindicated with renal dysfunction. Echo of the heart: Left ventricular systolic function is mildly reduced with EF of 45 to 50%, flattened septum is consistent with RV pressure/volume overload, apical wall motion abnormality may reflect pacemaker activation, right ventricle is severely dilated, right ventricular systolic function is moderately reduced, there is moderate mitral regurgitation, there is severe tricuspid regurgitation, and dilated inferior vena cava with reduced collapsibility with sleep indicates an elevated right atrial pressure of 15 mmHg Appreciate cardiology input and recommendation Will get Lasix 80 mg twice daily on discharge (8) CAD (coronary artery disease): chronic, stable. Cont medical management as above. Has been back on oral Plavix (9) DMII (diabetes mellitus, type 2): Controlled, cont ISS with loose carb coverage (10) DVT prophylaxis: coumadin DNR/DNI Dispo-to rehab. [facility] was declined and appear to peer was performed by me today however was still declined. This information was shared with the family. He is authorized to go to [facility] and there is a bed available however family declines this as an option. Continue to work with and in case management who is aware of the situation. He is medically stable for discharge at any oint. The patient has been accepted to [facility] and he can go today. Total Time Total Time Spent Total Time Spent (In Minutes): 35 minutes Total Time Includes: Examination of the Patient, Discharge Planning, Medication Reconciliation and Communication With Other Providers Discharge Plan Discharge Items Patient Disposition: Transfer Shelter Fac Reason For Visit: FALL,UGIB,AFIB Discharge Diagnosis: Fall, Closed fracture of left hip, Anemia, Acute worsening of stage 4 chronic kidney disease, hypotension, Chronic systolic heart failure, Chronic atrial fibrillation, Supratherapeutic INR (resolved), Cirrhosis of liver, Chronic gastritis, Type 2 diabetes mellitus Condition on Discharge: Good Activity: Per Instructions section Activity Comment: Obey hip precautions at all times. Weightbearing: Full weightbearing Weightbearing Comment: Weightbear as tolerated following hip precautions at all times. Non-emergency contact: Primary Care Provider Call non-emergency contact if: you have any medication questions and your sym ptoms worsen Follow-up/Referrals: Aditya Torres MD [Physician] - (Follow-up in Orthopedic Clinic in about 4 weeks ) Shade Thomas MD [Primary Care Provider] - 10/23/19 1:45 pm (You have an appointment with supply chain development manager on November 17. Nephrology will be notified with the blood tests results.) Diet: Carb Consistent or DM2 and Low Sodium (2gm) Fluids: 1500ml (6 cups) Ambulatory Orders: Complete Blood Count with Diff (Routine) Timeframe: 1 Week Location: Determined by Patient Ordered By: Cait Montalvo Basic Metabolic Panel (Routine) Timeframe: 1 Week Location: Determined by Patient Ordered By: Cait Montalvo Addtl Attending Provider Instructions: ACTIVITY RECOMMENDATIONS: Physical Therapy: * Aggressive physical therapy is not usually needed. You will learn to take care of yourself safely and walk. * Follow the "Hip Precautions Instructions." * In some cases, the social work therapist at the hospital will arrange to have a therapist come to your house for the first couple of weeks to help you learn these skills. * You need to practice on your own or with the help of a family member as needed. * When you learn these skills, most of the therapy can be done on your own. Home Exercise: * You were shown a series of exercises in the hospital. Do these exercises three to four times each day including the exercises you were shown in physical therapy. Walking: * Get up and walk several times each day. For the first four weeks, try not to stand or walk for more than one hour at a time. If you do stand or walk for more than one hour, you will not hurt anything, but your leg will likely swell. * As you feel comfortable, you may change from the walker or crutches to a cane and then to independent walking. MEDICATIONS: "VERY IMPORTANT TO READ AND REVIEW" Pain: * The immediate post-operative period after hip replacement surgery is often quite painful. * You are given a prescription for pain medicine. You should take it, as directed, when you need it, especially before physical therapy and before going to bed. Pain that interferes with sleep is very common and can last several months. * You will likely need pain medicine for the first two to four weeks. It will not stop all of the pain. The pain will lessen and as you feel better, you may change to milder pain medicine such as Tylenol. * The most common side effects of pain medicine are nausea and constipation, so don't take more than you need. SPECIAL CARE INSTRUCTIONS: TEDs/Elastic Stockings: * The white elastic stockings help limit swelling and prevent blood clots from forming in your legs. The more you wear them, the more they work. * Wear them for six weeks. Prevention of Infection: * Take antibiotics one hour before any dental cleaning, dental work, urological procedure, gastrointestinal procedure or any invasive surgery in order to prevent your new joint from getting infected. * You may get the antibiotics from the doctor performing the procedure or you may call our office at before and we will call in a prescription to the pharmacy of your choice. Things to Watch For: * Drainage from the incision site that occurs more than one week after your surgery. * Severely increased leg pain or swelling. * Increased redness at the incision site. * Fever above 102 degrees Fahrenheit. * Unusual chest pain or shortness of breath. * Unusual pain or burning with urination. Call [facility] at with any of the above problems or if you have any questions about your medicines or recovery. FOLLOW UP VISIT: Make an appointment to see your doctor for approximately two weeks after surgery for a progress check and staple removal by calling the office at . Pending Studies at Discharge: No Stand-Alone Forms: My [facility] Skilled Items Patient informed of condition?: Yes DNR: Yes Discharge Level of Care: Skilled Communicable Disease: No Discharge Prognosis: Stable Lines: None Urinary Catheter: No Medications and DC Order Prescriptions: New polyethylene glycol 3350 [Miralax] 17 gram Powder In Packet 17 g PO DAILY 30 Days Qty: 30 RF: 0 potassium chloride [Klor-Con M20] 20 mEq Tablet,Er Particles/Crystals 40 meq PO QAM 30 Days Qty: 60 RF: 0 tamsulosin 0.4 mg Capsule 0.4 mg PO QAM PRN (Reason: urinary retention) 30 Days Qty: 30 RF: 0 furosemide 80 mg Tablet 80 mg PO BID17 30 Days Qty: 60 RF: 0 bisacodyl [Laxative (bisacodyl)] 10 mg Suppository 10 mg WA DAILY PRN (Reason: constipation) 30 Days Qty: 30 RF: 0 lansoprazole [Prevacid SoluTab] 30 mg Tablet,Disintegrat, Delay Rel 30 mg PO BID 30 Days Qty: 60 RF: 0 Continued warfarin 5 mg Tablet 5 mg PO 6XWK RF: 0 dextromethorphan-guaifenesin [Mucinex DM] 60-1,200 mg Tablet Extended Release 12 Hr 1 tab PO Q12H PRN (Reason: Cough) RF: 0 testosterone 50 mg/5 gram (1 %) Gel 1 packet TRANSDERMAL DAILY RF: 0 nitroglycerin [Nitrostat] 0.4 mg Tablet, Sublingual 0.4 mg Sublingual UD PRN (Reason: Chest Pain) RF: 0 clopidogrel [Plavix] 75 mg Tablet 75 mg PO QAM RF: 0 sertraline 50 mg Tablet 50 mg PO QAM RF: 0 coenzyme Q10 [Co Q-10] 10 mg Capsule 10 mg PO QAM RF: 0 cyanocobalamin (vitamin B-12) 1,000 mcg Tablet 1,000 mcg PO QAM RF: 0 ferrous gluconate 324 mg (37.5 mg iron) Tablet 324 mg PO QAM RF: 0 rosuvastatin [Crestor] 20 mg Tablet 20 mg PO QAM RF: 0 multivitamin [Multiple Vitamins] Tablet 1 tab PO QAM RF: 0 glipizide 5 mg tablet 2.5 mg PO BID Qty: 30 RF: 1 warfarin 5 mg tablet 2.5 mg PO WK RF: 0 metoprolol succinate 50 mg tablet extended release 24 hr 100 mg PO BID RF: 0 Discontinued torsemide 20 mg tablet 100 mg PO DAILY RF: 0 pantoprazole 40 mg Tablet,Delayed Release (Dr/Ec) 40 mg PO BID 30 Days Qty: 60 RF: 4 Discharge Orders: Discharge Order (Routine); Ordered 10/17/19 Ordered By: Cait Faria/Other Patient Handouts: Hypoglycemia Admission Data Admit Date/Time: 09/28/19 13:49 Attending Provider: Cait Montalvo Admit Provider: Aditya Torres Primary Care Provider: Shade Thomas Other Providers: [facility] ; [facility] ; Armando Aguila ; Alfred Robertson ; Jamie Garcia ; Celso Pierce ; Aditya Torres ; Alisson Martin ; Eric Valencia ; Chelly Irving ; Dakotah Cox at [facility] Other Interventions: Discharge Summary Assessment (RN) Last Done: 10/17/19 14:25 DC Date/Time DO NOT enter until pt leaves facility: 10/17/19 17:25
== END 2019-10-17 17:25 | DRG 469 ==
LOC: ED 11:22 → SUATTDRO 13:49 → 2S 13:49 → 3N 10-11 16:35